=== PATIENT | male | born 1945 | race Caucasian/White ===

== ENCOUNTER 2018-08-13 18:20 | Inpatient (IN) | payer MEDICARE ==
[2018-08-13] MEDS ORDERED: FAMOTIDINE 20 MG/2 ML VIAL IV STA (18:53)
[2018-08-13 19:02] LABS: Basophils # (A) 0.1 k/uL (0-0.2); Basophils % (A) 1 %; Eosinophils # (A) 0.1 k/uL (0-0.7); Eosinophils % (A) 1 %; HCT 46.4 % (39.0-53.0); HGB 14.8 gm/dL (13.0-17.5); Lymphocytes # (A) 0.8 k/uL (1.0-4.8); Lymphocytes % (A) 10 %; MCH 29.1 pg (25.0-35.0); MCHC 31.8 g/dL (31.0-37.0); MCV 91.5 fL (80.0-100.0); Mean Platelet Volume 7.2; Monocytes # (A) 0.4 k/uL (0-1.0); Monocytes % (A) 5 %; Neutrophils # (A) 6.4 k/uL (1.3-7.7); Neutrophils % (A) 82 %; Platelet Count 177 k/uL (150-450); RBC 5.07 m/uL (4.30-5.90); RDW 14.8 % (11.5-15.5); WBC 7.8 k/uL (3.8-10.6)
--- NOTE | 2018-08-13 19:12 | ED ---
General Adult HPI - General Chief complaint: Chest Pain Stated complaint: CHEST PAIN, COLD SWEATS, HEART BURN Time Seen by Provider: 08/13/18 18:28 Source: patient, RN notes reviewed, old records reviewed Mode of arrival: wheelchair Limitations: no limitations - History of Present Illness Initial comments: 73-year-old male presenting for evaluation of chest pain. Patient's pain began approximately one hour prior to arrival. He reports associated diaphoresis. Pain was nonradiating. Patient states this did occur after eating some spicy soup. He reports some belching and nausea. No significant vomiting. Patient states that while at home he took some drinks of soda. This improved his symptoms. He is pain-free at the time my evaluation. He has no known history of CAD. He is a diabetic and former smoker. He has history of COPD. - Related Data Home Medications Medication Instructions Recorded Confirmed Insulin Glargine [Lantus] 50 unit SQ BID 12/16/14 08/13/18 Albuterol Inhaler [Ventolin Hfa 2 puff INHALATION RT-Q6H PRN 08/13/18 08/13/18 Inhaler] Aspirin EC [Ecotrin Low Dose] 81 mg PO HS 08/13/18 08/13/18 Lisinopril-Hctz 20-12.5 mg 1 tab PO DAILY 08/13/18 08/13/18 [Zestoretic 20-12.5] Tamsulosin HCl [Flomax] 0.4 mg PO HS 08/13/18 08/13/18 Allergies Allergy/AdvReac Type Severity Reaction Status Date / Time No Known Allergies Allergy Verified 08/13/18 19:13 Review of Systems ROS Statement: Those systems with pertinent positive or pertinent negative responses have been documented in the HPI. ROS Other: All systems not noted in ROS Statement are negative. Past Medical History Past Medical History: COPD, Diabetes Mellitus, Hypertension History of Any Multi-Drug Resistant Organisms: None Reported Additional Past Surgical History / Comment(s): rt nephrectomy Past Psychological History: No Psychological Hx Reported Smoking Status: Former smoker Past Alcohol Use History: Occasional Past Drug Use History: None Reported General Exam Limitations: no limitations General appearance: alert, in no apparent distress Head exam: Present: atraumatic, normocephalic Eye exam: Present: normal appearance, PERRL ENT exam: Present: normal exam Neck exam: Present: normal inspection. Absent: tenderness, meningismus Respiratory exam: Present: normal lung sounds bilaterally. Absent: respiratory distress Cardiovascular Exam: Present: regular rate. Absent: normal rhythm GI/Abdominal exam: Present: soft. Absent: distended, tenderness, guarding, rebound Extremities exam: Present: normal inspection, normal capillary refill. Absent: pedal edema Back exam: Present: normal inspection, full ROM Neurological exam: Present: alert, oriented X3 Psychiatric exam: Present: normal affect, normal mood Skin exam: Present: warm, dry, intact. Absent: cyanosis, diaphoretic Course Vital Signs 08/13/18 18:25 Temperature 98.2 F Pulse Rate 70 Respiratory 20 Rate Blood Pressure 169/79 O2 Sat by Pulse 98 Oximetry - Reevaluation(s) Reevaluation #1: 08/13/18 20:22 Patient remains chest pain-free while in the emergency department. EKG Findings - EKG Comments: EKG Findings:: EKG: Normal sinus rhythm, left axis deviation, right bundle branch block rate of 70, ME interval 160, QRS duration 144, QTC 410, QTC 442 Medical Decision Making - Medical Decision Making 73-year-old male presenting with central chest pain and diaphoresis. Patient's symptoms are resolved at the time of initial evaluation. Patient has significant risk factors for coronary artery disease including including diabetes and former tobacco use. Laboratory studies reveal normal CBC, creatinine is mildly elevated 0.1, troponin is 0.128. Given the patient's symptoms, this will be treated as non- ST segment elevation CT. Troponin will be trended. Patient is given aspirin and started on heparin. He will be admitted for cardiology evaluation. - Lab Data Result diagrams: 08/13/18 18:51 08/13/18 18:51 Lab Results 08/13/18 08/13/18 08/13/18 Range/Units 18:51 18:51 18:51 WBC 7.8 (3.8-10.6) k/uL RBC 5.07 (4.30-5.90) m/uL Hgb 14.8 (13.0-17.5) gm/dL Hct 46.4 (39.0-53.0) % MCV 91.5 (80.0-100.0) fL MCH 29.1 (25.0-35.0) pg MCHC 31.8 (31.0-37.0) g/dL RDW 14.8 (11.5-15.5) % Plt Count 177 (150-450) k/uL Neutrophils % 82 % Lymphocytes % 10 % Monocytes % 5 % Eosinophils % 1 % Basophils % 1 % Neutrophils # 6.4 (1.3-7.7) k/uL Lymphocytes # 0.8 L (1.0-4.8) k/uL Monocytes # 0.4 (0-1.0) k/uL Eosinophils # 0.1 (0-0.7) k/uL Basophils # 0.1 (0-0.2) k/uL PT (9.0-12.0) sec INR (<1.2) APTT (22.0-30.0) sec Sodium 136 L (137-145) mmol/L Potassium 4.9 (3.5-5.1) mmol/L Chloride 103 (98-107) mmol/L Carbon Dioxide 21 L (22-30) mmol/L Anion Gap 12 mmol/L BUN 31 H (9-20) mg/dL Creatinine 1.44 H (0.66-1.25) mg/dL Est GFR (CKD-EPI)AfAm 55 (>60 ml/min/1.73 sqM) Est GFR (CKD-EPI)NonAf 48 (>60 ml/min/1.73 sqM) Glucose 216 H (74-99) mg/dL Calcium 9.1 (8.4-10.2) mg/dL Magnesium 1.7 (1.6-2.3) mg/dL Total Bilirubin 0.5 (0.2-1.3) mg/dL AST 28 (17-59) U/L ALT 34 (21-72) U/L Alkaline Phosphatase 83 (38-126) U/L Total Creatine Kinase 212 H (55-170) U/L CK-MB (CK-2) 4.9 H (0.0-2.4) ng/mL CK-MB (CK-2) Rel Index 2.3 Troponin I 0.128 H* (0.000-0.034) ng/mL Total Protein 6.9 (6.3-8.2) g/dL Albumin 3.9 (3.5-5.0) g/dL Amylase 62 (30-110) U/L Lipase 44 (23-300) U/L 08/13/18 Range/Units 18:51 WBC (3.8-10.6) k/uL RBC (4.30-5.90) m/uL Hgb (13.0-17.5) gm/dL Hct (39.0-53.0) % MCV (80.0-100.0) fL MCH (25.0-35.0) pg MCHC (31.0-37.0) g/dL RDW (11.5-15.5) % Plt Count (150-450) k/uL Neutrophils % % Lymphocytes % % Monocytes % % Eosinophils % % Basophils % % Neutrophils # (1.3-7.7) k/uL Lymphocytes # (1.0-4.8) k/uL Monocytes # (0-1.0) k/uL Eosinophils # (0-0.7) k/uL Basophils # (0-0.2) k/uL PT 9.7 (9.0-12.0) sec INR 1.0 (<1.2) APTT 22.3 (22.0-30.0) sec Sodium (137-145) mmol/L Potassium (3.5-5.1) mmol/L Chloride (98-107) mmol/L Carbon Dioxide (22-30) mmol/L Anion Gap mmol/L BUN (9-20) mg/dL Creatinine (0.66-1.25) mg/dL Est GFR (CKD-EPI)AfAm (>60 ml/min/1.73 sqM) Est GFR (CKD-EPI)NonAf (>60 ml/min/1.73 sqM) Glucose (74-99) mg/dL Calcium (8.4-10.2) mg/dL Magnesium (1.6-2.3) mg/dL Total Bilirubin (0.2-1.3) mg/dL AST (17-59) U/L ALT (21-72) U/L Alkaline Phosphatase (38-126) U/L Total Creatine Kinase (55-170) U/L CK-MB (CK-2) (0.0-2.4) ng/mL CK-MB (CK-2) Rel Index Troponin I (0.000-0.034) ng/mL Total Protein (6.3-8.2) g/dL Albumin (3.5-5.0) g/dL Amylase (30-110) U/L Lipase (23-300) U/L Disposition Clinical Impression: NSTEMI (non-ST elevated myocardial infarction) Disposition: ADMITTED IP TO THIS HOSP Condition: Stable Is patient prescribed a controlled substance at d/c from ED?: No Referrals: Joy Reagan DO [Primary Care Provider] - 1-2 days Decision to Admit Reason: Admit from EC Decision Date: 08/13/18 Decision Time: 20:25
[2018-08-13 19:13] LABS: Albumin 3.9 g/dL (3.5-5.0); Calcium 9.1 mg/dL (8.4-10.2); Magnesium 1.7 mg/dL (1.6-2.3); Potassium 4.9 mmol/L (3.5-5.1); Total Bilirubin 0.5 mg/dL (0.2-1.3); Total Protein 6.9 g/dL (6.3-8.2)
--- NOTE | 2018-08-13 19:13 | XR ---
EXAMINATION TYPE: XR chest 2V DATE OF EXAM: 08/13/2018 COMPARISON: 03/22/2018 HISTORY: Difficulty breathing TECHNIQUE: Frontal and lateral views of the chest are obtained. FINDINGS: There is no heart failure. There is slight elevated right diaphragm and linear density at the right lung base. The other lung waddell are clear. There is no pleural effusion. There are chest l kaushik. Bony thorax is intact. IMPRESSION: Mild subsegmental atelectasis is at the right lung base is new compared to last exam. No rmal heart.
[2018-08-13 19:17] LABS: Partial Thromboplastin Time 22.3 sec (22.0-30.0); Prothrombin Time 9.7 sec (9.0-12.0)
[2018-08-13 19:29] LABS: Creatine Kinase MB 4.9 ng/mL (0.0-2.4)
[2018-08-13 19:32] LABS: Troponin I 0.128 ng/mL (0.000-0.034)
[2018-08-13] MEDS ORDERED: HEPARIN SODIUM,PORCINE 5,000 UNIT/ML 1 ML VIAL IV PRN (19:36)
[2018-08-13] MEDS ORDERED: HEPARIN SODIUM,PORCINE 5,000 UNIT/ML 1 ML VIAL IV ONE (19:36)
[2018-08-13] MEDS ORDERED: ASPIRIN 325 MG TAB PO STA (19:36)
[2018-08-13] MEDS: HEPARIN SOD,PORK IN 0.45% NACL 25,000 UNIT in 0.45% NACL 1 500ML.BAG IV SCH (20:18)
[2018-08-13] MEDS ORDERED: NITROGLYCERIN SL TABS 0.4 MG TAB SUBLINGUAL PRN (20:25)
[2018-08-13 21:05] LABS: Glucose,Whole Blood 217 mg/dL (75-99)
[2018-08-13] MEDS: INSULIN DETEMIR 100 UNIT/ML 10 ML VIAL SQ SCH (23:22)
[2018-08-14 02:21] LABS: Creatine Kinase MB 36.5 ng/mL (0.0-2.4)
[2018-08-14 02:22] LABS: Troponin I 11.8 ng/mL (0.000-0.034)
[2018-08-14 06:05] LABS: Glucose,Whole Blood 92 mg/dL (75-99)
--- NOTE | 2018-08-14 08:28 | P.CRDCN ---
History of Present Illness Consult date: 08/14/18 Requesting physician: Brandi Jordan Consult reason: non-Q-wave [place] Chief complaint: Chest pain History of present illness: This is a pleasant 73-year-old gentleman with known history of hypertension, diabetes, not on a statin, quit smoking several years ago, COPD, who presents to the hospital with symptoms of severe chest pressure and heaviness with associated diaphoresis. According to the patient, the symptoms started yesterday, prior to that the patient states he's been feeling overall quite well. I pressure on arrival here 168/78 heart rate in the 70s, temperature 98.2 degrees 98% on room air. Blood pressure this morning 122/60 with a heart rate in the 60s, temperature 97.5, 96% on room air. White blood cell count 7.8, hemoglobin 14.8, platelet count 177. Sodium 136, potassium 4.9 , BUN 31, creatinine 1.4. Blood sugar 216. Magnesium 1.7. Troponin 0.12, 11.8. Initial EKG shows a normal sinus rhythm with a right bundle branch block pattern and ST-T wave changes noted in the anterior leads. Subsequent EKG shows sinus bradycardia with left axis deviation and ST-T wave changes noted in the anterior lateral leads. Chest x-ray shows mild subsegmental atelectasis at the right lung base. At the time of my examination this morning patient is currently chest pain-free. Patient is currently on an aspirin, IV heparin, lisinopril hydrochlorothiazide. We will continue the lisinopril, discontinue the hydrochlorothiazide, no beta laurie at this point because of bradycardia, we will start the patient on Lipitor 80. Past Medical History Past Medical History: COPD, Diabetes Mellitus, Hypertension History of Any Multi-Drug Resistant Organisms: None Reported Additional Past Surgical History / Comment(s): rt nephrectomy 1970 Past Anesthesia/Blood Transfusion Reactions: No Reported Reaction Past Psychological History: No Psychological Hx Reported Smoking Status: Former smoker Past Alcohol Use History: Occasional Past Drug Use History: None Reported - Past Family History Father Additional Family Medical History / Comment(s): old age Mother Family Medical History: Diabetes Mellitus Additional Family Medical History / Comment(s): old age Medications and Allergies Home Medications Medication Instructions Recorded Confirmed Type Insulin Glargine [Lantus] 50 unit SQ BID 12/16/14 08/13/18 History Albuterol Inhaler [Ventolin Hfa 2 puff INHALATION RT-Q6H PRN 08/13/18 08/13/18 History Inhaler] Aspirin EC [Ecotrin Low Dose] 81 mg PO HS 08/13/18 08/13/18 History Lisinopril-Hctz 20-12.5 mg 1 tab PO DAILY 08/13/18 08/13/18 History [Zestoretic 20-12.5] Tamsulosin HCl [Flomax] 0.4 mg PO HS 08/13/18 08/13/18 History Allergies Allergy/AdvReac Type Severity Reaction Status Date / Time No Known Allergies Allergy Verified 08/13/18 19:13 Physical Exam Vitals: Vital Signs Temp Pulse Pulse Resp BP BP Pulse Ox 08/14/18 04:00 97.5 F L 62 18 123/60 96 08/14/18 00:00 97.5 F L 61 18 172/73 96 08/13/18 21:35 96.9 F L 64 18 174/88 97 08/13/18 21:00 96.9 F L 64 18 174/88 97 08/13/18 20:46 98.3 F 67 18 159/76 97 08/13/18 20:24 67 18 184/92 97 08/13/18 18:25 98.2 F 70 20 169/79 98 Intake and Output 08/13/18 08/14/18 08/14/18 22:59 06:59 14:59 Intake Total 146.667 Output Total 700 300 Balance -700 -153.333 Intake: Intake, IV Titration 146.667 Amount Heparin Sod,Pork in 0.45% 146.667 NaCl 25,000 unit In 0.45 % NaCl 1 500ml.bag @ 10. 113 UNITS/KG/HR 20 mls/hr IV .Q24H [facility] Rx#: [id number] Output: Urine 700 300 Other: Voiding Method Toilet Toilet Urinal Urinal # Voids 1 Weight 98.883 kg 104 kg PHYSICAL EXAMINATION: GENERAL: 73-year-old gentleman in no acute distress at the time of my examination HEENT: Head is atraumatic, normocephalic. Pupils equal, round. Sclera anicteric. Conjunctiva are clear. Mucous membranes of the mouth are moist. Neck is supple. There is no elevated jugular venous pressure. No carotid bruit is heard. HEART EXAMINATION: Heart S1, S2 normal. No murmur or gallop heard. CHEST EXAMINATION: Lungs are clear to auscultation and precussion. No chest wall tenderness is noted on palpation or with deep breathing. ABDOMEN: Soft, nontender. Bowel sounds are heard. No organomegaly noted. EXTREMITIES: 2+ peripheral pulses with no evidence of peripheral edema and no calf tenderness noted. NEUROLOGIC patient is awake, alert and oriented X3. . Results 08/14/18 08:10 08/13/18 18:51 Cardiac Enzymes 08/13/18 08/13/18 08/14/18 Range/Units 18:51 18:51 01:24 AST 28 (17-59) U/L CK-MB (CK-2) 4.9 H 36.5 H (0.0-2.4) ng/mL Troponin I 0.128 H* 11.800 H* (0.000-0.034) ng/mL Coagulation 08/13/18 08/14/18 Range/Units 18:51 01:24 PT 9.7 (9.0-12.0) sec APTT 22.3 38.1 H (22.0-30.0) sec CBC 08/13/18 Range/Units 18:51 WBC 7.8 (3.8-10.6) k/uL RBC 5.07 (4.30-5.90) m/uL Hgb 14.8 (13.0-17.5) gm/dL Hct 46.4 (39.0-53.0) % Plt Count 177 (150-450) k/uL Comprehensive Metabolic Panel 08/13/18 Range/Units 18:51 Sodium 136 L (137-145) mmol/L Potassium 4.9 (3.5-5.1) mmol/L Chloride 103 (98-107) mmol/L Carbon Dioxide 21 L (22-30) mmol/L BUN 31 H (9-20) mg/dL Creatinine 1.44 H (0.66-1.25) mg/dL Glucose 216 H (74-99) mg/dL Calcium 9.1 (8.4-10.2) mg/dL AST 28 (17-59) U/L ALT 34 (21-72) U/L Alkaline Phosphatase 83 (38-126) U/L Total Protein 6.9 (6.3-8.2) g/dL Albumin 3.9 (3.5-5.0) g/dL Current Medications Generic Name Dose Route Start Last Admin Trade Name Freq PRN Reason Stop Dose Admin Albuterol Sulfate 2.5 mg 08/13/18 20:27 Ventolin Nebulized INHALATION RT-Q6H PRN Shortness Of Breath Aspirin 81 mg 08/14/18 21:00 Aspirin PO HS ALEXEY Lisinopril/HCTZ 1 each 08/14/18 09:00 Zestoretic 20-12.5 PO DAILY ALEXEY Heparin Sodium (Porcine) 0 unit 08/13/18 19:36 Heparin IV PER PROTOCOL PRN Low PTT Protocol Heparin Sodium/Sodium Chloride 500 mls @ 20 mls/hr 08/13/18 19:45 08/14/18 03 :38 25,000 unit/ Sodium Chloride IV 13.1 units/kg/hr .Q24H ALEXE[facility] 25.9 mls/hr Titration Protocol 10.113 UNITS/KG/HR Insulin Detemir 50 unit 08/13/18 21:00 08/13/18 23:22 Levemir SQ 50 unit BID ALEXEY Administration Nitroglycerin 0.4 mg 08/13/18 20:25 Nitrostat SUBLINGUAL Q5M PRN Chest Pain Intake and Output 08/13/18 08/14/18 08/14/18 22:59 06:59 14:59 Intake Total 146.667 Output Total 700 300 Balance -700 -153.333 Intake: Intake, IV Titration 146.667 Amount Heparin Sod,Pork in 0.45% 146.667 NaCl 25,000 unit In 0.45 % NaCl 1 500ml.bag @ 10. 113 UNITS/KG/HR 20 mls/hr IV .Q24H [facility] Rx#: [id number] Output: Urine 700 300 Other: Voiding Method Toilet Toilet Urinal Urinal # Voids 1 Weight 98.883 kg 104 kg 08/13/18 18:51 08/13/18 18:51 EKG Interpretations (text) EKG shows normal sinus rhythm on her branch block pattern and ST-T wave changes noted in the anterior lateral leads. Assessment and Plan Plan: Assessment and plan #1 non-ST elevation myocardial infarction #2 hypertension #3 diabetes #4 history of smoking #5 COPD #6 mild renal insufficiency, s/p right nephrectomy Plan We will obtain a stat echocardiogram with Doppler study, continue aspirin and heparin, start the patient on Lipitor 80 mg daily, we will continue the lisinopril but discontinue the hydrochlorothiazide, we will not start a beta laurie at this time because of the bradycardia. Patient will be hydrated at 100 mL per hour. He's been advised to undergo cardiac catheterization, the risks and benefits were explained in detail and he is willing to proceed. Further recommendations will be based on these findings and patient's clinical course. DNP note has been reviewed, I agree with a documented findings and plan of care. Patient was seen and examined.
[2018-08-14 08:34] LABS: Basophils # (A) 0.1 k/uL (0-0.2); Basophils % (A) 1 %; Eosinophils # (A) 0.1 k/uL (0-0.7); Eosinophils % (A) 2 %; HCT 44.7 % (39.0-53.0); HGB 14.2 gm/dL (13.0-17.5); Lymphocytes # (A) 0.8 k/uL (1.0-4.8); Lymphocytes % (A) 12 %; MCH 28.8 pg (25.0-35.0); MCHC 31.8 g/dL (31.0-37.0); MCV 90.6 fL (80.0-100.0); Mean Platelet Volume 7.2; Monocytes # (A) 0.3 k/uL (0-1.0); Monocytes % (A) 5 %; Neutrophils # (A) 5.3 k/uL (1.3-7.7); Neutrophils % (A) 78 %; Platelet Count 155 k/uL (150-450); RBC 4.93 m/uL (4.30-5.90); RDW 14.8 % (11.5-15.5); WBC 6.7 k/uL (3.8-10.6)
[2018-08-14] MEDS: SODIUM CHLORIDE 0.9% 1,000 ML IV SCH ×3 (08:35→21:13)
[2018-08-14] MEDS: INSULIN DETEMIR 100 UNIT/ML 10 ML VIAL SQ SCH ×2 (08:35→21:13)
[2018-08-14] MEDS: ALBUTEROL NEBULIZED 2.5 MG/3 ML INHALATION PRN ×2 (08:36→16:42)
[2018-08-14 08:44] LABS: Cholesterol 154 mg/dL (<200); HDL Cholesterol 29 mg/dL (40-60); LDL Cholesterol,Calculated 88 mg/dL (0-99); Triglycerides 185 mg/dL (<150)
[2018-08-14] MEDS: LISINOPRIL 20 MG TAB PO SCH (08:56)
[2018-08-14] MEDS ORDERED: ASPIRIN 325 MG TAB PO SCH (09:00)
[2018-08-14] MEDS ORDERED: LISINOPRIL-HCTZ 20-12.5 MG 1 EACH TAB PO SCH (09:00)
[2018-08-14 09:17] LABS: Creatine Kinase MB 30.7 ng/mL (0.0-2.4)
[2018-08-14 09:27] LABS: Troponin I 11.8 ng/mL (0.000-0.034)
[2018-08-14] MEDS ORDERED: IV FLUID CONTINUATION 1,000 ML IV ONE (11:30)
[2018-08-14] MEDS ORDERED: MIDAZOLAM 2 MG/2 ML VIAL IV ONE (11:35)
[2018-08-14] MEDS ORDERED: LIDOCAINE 1% INJ 10MG/ML (20 ML MDV) SQ ONE (11:40)
[2018-08-14] MEDS: VERAPAMIL SYRINGE (5 MG/10 ML) INTRAARTER ONE ×2 (11:43→12:01)
[2018-08-14] MEDS ORDERED: IOPAMIDOL-370 100ML BTL INJ ONE (12:08)
[2018-08-14] MEDS ORDERED: RX INFO: IV CONTRAST WAS GIVEN 1 EACH MISC MISCELLANE PRN (12:30)
[2018-08-14 12:42] LABS: Calcium 9.1 mg/dL (8.4-10.2); Potassium 4.7 mmol/L (3.5-5.1)
[2018-08-14] MEDS ORDERED: HEPARIN SOD,PORK IN 0.45% NACL 25,000 UNIT in 0.45% NACL 1 500ML.BAG IV SCH (12:45)
[2018-08-14] MEDS ORDERED: TIROFIBAN 12.5MG-250ML NS 250 ML IV SCH (12:45)
[2018-08-14] MEDS ORDERED: MD COMMUNICATION TO PHARMACY 1 EACH MISC PO ONE (13:19)
--- NOTE | 2018-08-14 13:24 | CC ---
CARDIAC CATHETERIZATION REPORT DATE OF SERVICE: 08/14/2018 PROCEDURE: Coronary angiography. PERFORMED BY: Dr. Marvin Harper. Moderate conscious sedation time was 35 minutes. Patient was administered Versed and Benadryl and oxygen saturation, hemodynamics and EKG were monitored closely. CLINICAL INFORMATION: Mr. Cristo Perez is a 73-year-old gentleman with history of obesity, probable sleep apnea, type 2 diabetes with CKD and history of chest discomfort. He came into the hospital with chest pain, had an unremarkable troponin to begin with, went up to 11.8 and then he had Q-waves in anterior leads. He was pain free when I saw him this morning. He was on heparin, advised coronary angiography and after explanation of risks, benefits, and options. Patient understood all details and wished to proceed with the procedure. He insisted on having a right radial cath. PROCEDURE NOTE: Under local anesthesia and strict aseptic precautions, a 6-Montserratian introducer was placed in the right radial artery. I used a standard right Jasmin catheter for selective coronary angiography of the right coronary artery. I used a JL3.5 guide catheter for selective coronary angiography of the left system. Following this, I had difficulty because of extreme tortuosity trying to get LV pressures and therefore I did not cross the aortic valve. The sheath was taken out and TR band applied as per protocol with saturation in the fingers of the right hand of 92%. He was sent to the room in a stable condition. Findings were discussed with the patient and son. I am recommending aortocoronary bypass surgery. Films were reviewed with Dr. Brock and Dr. Campos. CARDIAC CATHETERIZATION FINDINGS: CORONARY ANGIOGRAPHY: RIGHT CORONARY ARTERY: This vessel is totally occluded in the proximal portion after acute marginal branch and a conus branch. The conus branch provides collaterals to the distal RCA which is opacified on the same antegrade injection and appears to be probably a graftable vessel. RCA therefore is totally occluded and the distal RCA fills from collaterals coming from the conus branch. LEFT MAIN CORONARY ARTERY: This is a long vessel with a distal lesion of 70% before it bifurcates into LAD and circumflex. There is some calcification in the left main coronary artery. LEFT ANTERIOR DESCENDING CORONARY ARTERY: Good caliber vessel extends along the anterior wall. It gives off a very high first diagonal branch. The first diagonal has diffuse disease in the ostium and midportion small in caliber of maybe 1 to 1.5 mm. At the origin of this first diagonal branch, there is a area of about 60% narrowing in the LAD. After the first diagonal and before the origin of the second diagonal, there is a hazy area in the LAD with 70% stenosis and the hazy area is probably thrombus. Second diagonal is free of significant disease and then LAD runs all the way to the apex supplying a fair amount of myocardium. LAD therefore has a proximal 60% lesion and mid 70% lesion between the 2 diagonal branches and then the caliber improves. Second diagonal is free of significant disease. First diagonal is small and non graftable. LEFT POSTERIOR CIRCUMFLEX CORONARY ARTERY: This is technically probably a nondominant vessel gives off a high first obtuse marginal that has 80% to 90% stenosis proximally and the caliber improves. After the first obtuse marginal, the circumflex also has about 60% narrowing and runs along the lateral aspect and gives some distal branches. The circumflex distally divides into 2 branches that supply a limited amount of myocardium. The circumflex marginal as well as the main circumflex are both graftable. COLLATERAL CIRCULATION: There is a limited amount of collaterals from the left system opacifying the distal branch of the RCA, but most of the collaterals are coming from the conus branch. LEFT VENTRICULOGRAM: Left ventriculogram was not performed. FINAL IMPRESSION: This patient has a right dominant system. Total occlusion of right coronary artery that fills with collaterals from the conus branch of right coronary artery. The left main is 70% or 75%. The left anterior descending coronary artery has a mid lesion of 70% with thrombus. Obtuse marginal has 80% to 85% stenosis. Filling pressures were not checked and left ventriculogram was not performed. RECOMMENDATION: I am recommending that we will hydrate the patient for the next 24 to 48 hours. We will treat him with Aggrastat for 12 to 18 hours and heparin for 48 hours. He should have aortocoronary bypass surgery with graft to the LAD, 2 circumflex branches and distal RCA. Findings were reviewed with the patient and son and I also reviewed the images with Dr. Brock and Dr. Campos. The patient will be seen by surgeons today and probable surgery either Friday or Friday. Discussed my thoughts in detail with the patient and family. MMODL / IJN: [id number] /
[2018-08-14 13:56] LABS: Basophils % (A) 1 %; Eosinophils # (A) 0.1 k/uL (0-0.7); Eosinophils % (A) 2 %; HCT 46.3 % (39.0-53.0); HGB 14.8 gm/dL (13.0-17.5); Lymphocytes # (A) 0.7 k/uL (1.0-4.8); Lymphocytes % (A) 10 %; MCH 28.8 pg (25.0-35.0); MCV 89.9 fL (80.0-100.0); Mean Platelet Volume 7.6; Monocytes # (A) 0.3 k/uL (0-1.0); Monocytes % (A) 4 %; Neutrophils # (A) 5.4 k/uL (1.3-7.7); Neutrophils % (A) 82 %; Platelet Count 167 k/uL (150-450); RBC 5.14 m/uL (4.30-5.90); RDW 14.7 % (11.5-15.5); WBC 6.6 k/uL (3.8-10.6)
--- NOTE | 2018-08-14 14:00 | P.HPIM ---
History of Present Illness H&P Date: 08/14/18 Chief Complaint: Chest pain This is a 73-year-old male, patient of [facility]. He has a known past medical history of hypertension, diabetes mellitus, COPD, right nephrectomy 1969 and former smoker. Patient presents to the emergency room with complaints of chest pain with pressure and heaviness and diaphoresis. Symptoms had started yesterday. Patient was diagnosed with a non-ST elevated SC. Initial troponin 0.128 then 11.6 and 11.8. Patient was started on IV heparin cardiology was consulted. And patient underwent heart catheterization today. The heart catheterization shows total occlusion of the right coronary artery. Left main is 70-75% stenosed. The left anterior descending coronary artery has a mid lesion of 70% with thrombus. Obtuse marginal had 80-85% stenosis. Cardiology is recommending open-heart surgery. That her surgery has been consulted. They have already evaluated patient and surgery we'll possibly be on Friday. Pulmonary service has also been consulted. Patient is receiving IV fluids. He was slightly dehydrated on admission creatinine was 1.44. Unclear baseline creatinine. Creatinine in March 2018 was 1.3. Patient currently is chest pain-free. He reports that symptoms started after eating spicy soup and when he came back home he belched a large amount of gas and is relieved the pressure. He has been chest pain-free. Cardiology has placed him on IV heparin and Aggrastat. Review of Systems Please refer to HPI otherwise unremarkable Past Medical History Past Medical History: COPD, Diabetes Mellitus, Hypertension History of Any Multi-Drug Resistant Organisms: None Reported Additional Past Surgical History / Comment(s): rt nephrectomy 1969 Past Anesthesia/Blood Transfusion Reactions: No Reported Reaction Past Psychological History: No Psychological Hx Reported Smoking Status: Former smoker Past Alcohol Use History: Occasional Past Drug Use History: None Reported - Past Family History Father Additional Family Medical History / Comment(s): old age Mother Family Medical History: Diabetes Mellitus Additional Family Medical History / Comment(s): old age Medications and Allergies Home Medications Medication Instructions Recorded Confirmed Type Insulin Glargine [Lantus] 50 unit SQ BID 12/16/14 08/13/18 History Albuterol Inhaler [Ventolin Hfa 2 puff INHALATION RT-Q6H PRN 08/13/18 08/13/18 History Inhaler] Aspirin EC [Ecotrin Low Dose] 81 mg PO HS 08/13/18 08/13/18 History Lisinopril-Hctz 20-12.5 mg 1 tab PO DAILY 08/13/18 08/13/18 History [Zestoretic 20-12.5] Tamsulosin HCl [Flomax] 0.4 mg PO HS 08/13/18 08/13/18 History Allergies Allergy/AdvReac Type Severity Reaction Status Date / Time No Known Allergies Allergy Verified 08/13/18 19:13 Physical Exam Vitals: Vital Signs Temp Pulse Pulse Pulse Resp BP BP 08/14/18 13:00 64 20 150/74 08/14/18 12:45 97.6 F 64 20 158/77 08/14/18 12:30 98.2 F 62 20 146/81 08/14/18 08:45 72 08/14/18 08:36 72 08/14/18 08:00 97.6 F 61 20 130/68 08/14/18 04:00 97.5 F L 62 18 123/60 08/14/18 00:00 97.5 F L 61 18 172/73 08/13/18 21:35 96.9 F L 64 18 174/88 08/13/18 21:00 96.9 F L 64 18 174/88 08/13/18 20:46 98.3 F 67 18 159/76 08/13/18 20:24 67 18 184/92 08/13/18 18:25 98.2 F 70 20 169/79 Pulse Ox 08/14/18 13:00 93 L 08/14/18 12:45 94 L 08/14/18 12:30 96 08/14/18 08:45 08/14/18 08:36 08/14/18 08:00 93 L 08/14/18 04:00 96 08/14/18 00:00 96 08/13/18 21:35 97 08/13/18 21:00 97 08/13/18 20:46 97 08/13/18 20:24 97 08/13/18 18:25 98 Intake and Output 08/13/18 08/14/18 08/14/18 22:59 06:59 14:59 Intake Total 146.667 100 Output Total 700 300 Balance -700 -153.333 100 Intake: IV 100 Intake, IV Titration 146.667 Amount Heparin Sod,Pork in 0.45% 146.667 NaCl 25,000 unit In 0.45 % NaCl 1 500ml.bag @ 10. 113 UNITS/KG/HR 20 mls/hr IV .Q24H [facility] Rx#: [id number] Output: Urine 700 300 Other: Voiding Method Toilet Toilet Urinal Urinal # Voids 1 Weight 98.883 kg 104 kg Head normocephalic Neck supple Lungs clear to auscultation bilaterally no wheezing or crackles Heart regular rate and rhythm S1-S2, no rub or gallop Abdomen is soft nontender nondistended positive bowel sounds no hepatosplenomegaly Extremities no edema Neuro alert and orientated to 3 Results CBC & Chem 7: 08/14/18 08:10 08/14/18 08:10 Labs: Abnormal Lab Results - Last 24 Hours (Table) 08/13/18 08/13/18 08/13/18 Range/Units 18:51 18:51 18:51 Lymphocytes # 0.8 L (1.0-4.8) k/uL APTT (22.0-30.0) sec Sodium 136 L (137-145) mmol/L Chloride (98-107) mmol/L Carbon Dioxide 21 L (22-30) mmol/L BUN 31 H (9-20) mg/dL Creatinine 1.44 H (0.66-1.25) mg/dL Glucose 216 H (74-99) mg/dL POC Glucose (mg/dL) (75-99) mg/dL Total Creatine Kinase 212 H (55-170) U/L CK-MB (CK-2) 4.9 H (0.0-2.4) ng/mL Troponin I 0.128 H* (0.000-0.034) ng/mL Triglycerides (<150) mg/dL HDL Cholesterol (40-60) mg/dL 08/13/18 08/14/18 08/14/18 Range/Units 21:04 01:24 01:24 Lymphocytes # (1.0-4.8) k/uL APTT 38.1 H (22.0-30.0) sec Sodium (137-145) mmol/L Chloride (98-107) mmol/L Carbon Dioxide (22-30) mmol/L BUN (9-20) mg/dL Creatinine (0.66-1.25) mg/dL Glucose (74-99) mg/dL POC Glucose (mg/dL) 217 H (75-99) mg/dL Total Creatine Kinase 504 H (55-170) U/L CK-MB (CK-2) 36.5 H (0.0-2.4) ng/mL Troponin I 11.800 H* (0.000-0.034) ng/mL Triglycerides (<150) mg/dL HDL Cholesterol (40-60) mg/dL 08/14/18 08/14/18 08/14/18 Range/Units 08:10 08:10 08:10 Lymphocytes # 0.8 L (1.0-4.8) k/uL APTT (22.0-30.0) sec Sodium (137-145) mmol/L Chloride (98-107) mmol/L Carbon Dioxide (22-30) mmol/L BUN (9-20) mg/dL Creatinine (0.66-1.25) mg/dL Glucose (74-99) mg/dL POC Glucose (mg/dL) (75-99) mg/dL Total Creatine Kinase 465 H (55-170) U/L CK-MB (CK-2) 30.7 H (0.0-2.4) ng/mL Troponin I 11.800 H* (0.000-0.034) ng/mL Triglycerides 185 H (<150) mg/dL HDL Cholesterol 29 L (40-60) mg/dL 08/14/18 08/14/18 Range/Units 08:10 08:10 Lymphocytes # (1.0-4.8) k/uL APTT 38.6 H (22.0-30.0) sec Sodium (137-145) mmol/L Chloride 108 H (98-107) mmol/L Carbon Dioxide 19 L (22-30) mmol/L BUN 28 H (9-20) mg/dL Creatinine 1.27 H (0.66-1.25) mg/dL Glucose 110 H (74-99) mg/dL POC Glucose (mg/dL) (75-99) mg/dL Total Creatine Kinase (55-170) U/L CK-MB (CK-2) (0.0-2.4) ng/mL Troponin I (0.000-0.034) ng/mL Triglycerides (<150) mg/dL HDL Cholesterol (40-60) mg/dL Thrombosis Risk Factor Assmnt - Choose All That Apply Each Risk Factor Represents 2 Points: Age 61-74 years Thrombosis Risk Factor Assessment Total Risk Factor Score: 2 Thrombosis Risk Factor Assessment Level: Low Risk Assessment and Plan Assessment: 1. Acute Non-ST elevated myocardial infarction: Heart catheterization showing multivessel coronary artery disease with thrombus in the LAD. Patient has been seen by vascular surgery and planning for open heart surgery on Friday. Continue IV heparin and Aggrastat per cardiology. Continue with IV fluids. Pulmonary service also consulted for preop clearance. 2. Acute kidney injury: Unclear patient has chronic kidney disease. Creatinine in March 2018 was 1.3. Continue with IV fluid hydration. Creatinine is now down to 1.27 3. Essential hypertension 4. Diabetes mellitus insulin-dependent. Continue Levemir. Add sliding scale coverage and check A1c 5. History of COPD: No evidence of exacerbation. continue albuterol nebulizer as needed 6. BPH continue Flomax 7. Atelectasis noted on chest x-ray order incentive spirometer 8. Obesity BMI 39.4 kg GI prophylaxis Pepcid and DVT prophylaxis IV heparin Time with Patient: Greater than 30 (Greater than 60% of the total time spent in counseling and coordination of care.I performed an examination of the patient and discussed their management with the physician Medical Information Specialist. I have reviewed the Physician Medical Information Specialist's notes and agree with the documented findings and plan of care)
[2018-08-14 14:03] LABS: Calcium 9.3 mg/dL (8.4-10.2); Magnesium 1.9 mg/dL (1.6-2.3); Potassium 4.7 mmol/L (3.5-5.1); Prothrombin Time 9.6 sec (9.0-12.0); Total Bilirubin 0.6 mg/dL (0.2-1.3)
[2018-08-14 15:01] LABS: Appearance,Urine Clear (Clear); Bilirubin,Urine Negative (Negative); Blood,Urine Negative (Negative); Color,Urine Light Yellow; Glucose,Urine (UA) Negative (Negative); Ketones,Urine Negative (Negative); Leukocyte Esterase,Urine Negative (Negative); Nitrite,Urine Negative (Negative); Protein,Urine Negative (Negative); Specific Gravity,Urine 1.015 (1.001-1.035); Urobilinogen,Urine <2.0 mg/dL (<2.0)
--- NOTE | 2018-08-14 15:01 | P.GSCN ---
History of Present Illness Consult date: 08/14/18 Reason for Consult: symptomatic coronary artery disease, nstemi, surgical recommendations Requesting physician: Homer Harper History of present illness: This is a 73-year-old and active gentleman who follows with Dr. Joy Reagan on an outpatient basis. He has a previous medical history of hypertension, insulin-dependent diabetes mellitus, COPD, previous tobacco dependence as he quit smoking in 1979 but prior to that smoked 3 packs a day since he was in his teenage years, prostate cancer with radiation more than 20 years ago, right nephrectomy in 1969 for unknown reason. He presented to [facility] emergency room with complaints of chest pain associated with shortness of breath and diaphoresis. He denied any symptoms of syncope, dizziness, nausea, fever. He does state that he had eaten some spicy soup prior to this episode of chest pain, and about the time he got to the hospital he did belch and his chest pain was gone. He was hypertensive however, and initial EKGs had evidence of ST changes in the anterior leads. Troponin was slightly elevated and this patient was ruled in for a non-STEMI. Repeat troponin was 11.8. The patient was admitted for cardiology workup and started on IV heparin. He was taken to the cardiac catheterization lab this morning which demonstrated a long lesion in the distal left main of 70% before it bifurcates into the LAD and circumflex along with some calcification, 60% narrowing in the LAD at the origin of the first diagonal branch, 70% stenosis in the LAD at the origin of the second diagonal branch with probable thrombus, first obtuse marginal with 80 -90% stenosis proximally, 60% narrowing in the circumflex after the first obtuse marginal, proximal RCA with total occlusion, there is some collateralization from the left system to the right, left ventriculogram was not performed. Due to the above findings Dr. Campos from cardiothoracic surgery was consulted for recommendations regarding surgical revascularization. Review of Systems Review of systems was completed and was negative except as noted. - Cardiovascular Reports chest pain, Reports high blood pressure, Reports shortness of breath Past Medical History Past Medical History: Coronary Artery Disease (CAD), Cancer, COPD, Diabetes Mellitus, Hyperlipidemia, Hypertension Additional Past Medical History / Comment(s): prostate cancer with radiation > 20 years ago History of Any Multi-Drug Resistant Organisms: None Reported Additional Past Surgical History / Comment(s): rt nephrectomy 1969 Past Anesthesia/Blood Transfusion Reactions: No Reported Reaction Past Psychological History: No Psychological Hx Reported Smoking Status: Former smoker Past Alcohol Use History: None Reported Additional Past Alcohol Use History / Comment(s): quit smoking 1979 (prior to that 3 packs/day since his teens), quit drinking 1980 Past Drug Use History: None Reported - Past Family History Father Additional Family Medical History / Comment(s): old age Mother Family Medical History: Coronary Artery Disease (CAD), Diabetes Mellitus Additional Family Medical History / Comment(s): CABG Medications and Allergies Home Medications Medication Instructions Recorded Confirmed Type Insulin Glargine [Lantus] 50 unit SQ BID 12/16/14 08/13/18 History Albuterol Inhaler [Ventolin Hfa 2 puff INHALATION RT-Q6H PRN 08/13/18 08/13/18 History Inhaler] Aspirin EC [Ecotrin Low Dose] 81 mg PO HS 08/13/18 08/13/18 History Lisinopril-Hctz 20-12.5 mg 1 tab PO DAILY 08/13/18 08/13/18 History [Zestoretic 20-12.5] Tamsulosin HCl [Flomax] 0.4 mg PO HS 08/13/18 08/13/18 History Allergies Allergy/AdvReac Type Severity Reaction Status Date / Time No Known Allergies Allergy Verified 08/13/18 19:13 Surgical - Exam Vital Signs Temp Pulse Resp BP Pulse Ox 98.2 F 70 20 169/79 98 08/13/18 18:25 08/13/18 18:25 08/13/18 18:25 08/13/18 18:25 08/13/18 18:25 - General well developed, well nourished, no distress, no pain, chronically ill, obese - Eyes PERRL, normal ocular movement - ENT no hearing loss, dentures - Neck no masses, no bruits, trachea midline - Respiratory Lungs sounds diminished bilaterally. Respirations even, nonlabored. Currently on room air with oxygen saturation 95%. No chest wall deformities. - Cardiovascular S1, S2 present. Regular rate and rhythm, sinus rhythm on telemetry. Palpable peripheral pulses bilaterally. No edema present. No calf pain or tenderness noted. No varicosities noted. Left radial Kameron's test positive. - Abdomen Abdomen: soft, non tender, bowel sounds - Genitourinary Deferred - Rectum Deferred - Integumentary Skin is warm and dry with evidence of good perfusion. no rash, no growths, no abnormal pigmentation - Neurologic normal coordination, normal sensation - Psychiatric Speech is difficult to understand at times because patient has no teeth. oriented to time, oriented to person, oriented to place, memory intact Results - Labs 08/14/18 13:29 08/14/18 13:29 Abnormal Lab Results - Last 24 Hours (Table) 08/13/18 08/13/18 08/13/18 Range/Units 18:51 18:51 18:51 Lymphocytes # 0.8 L (1.0-4.8) k/uL APTT (22.0-30.0) sec Sodium 136 L (137-145) mmol/L Chloride (98-107) mmol/L Carbon Dioxide 21 L (22-30) mmol/L BUN 31 H (9-20) mg/dL Creatinine 1.44 H (0.66-1.25) mg/dL Glucose 216 H (74-99) mg/dL POC Glucose (mg/dL) (75-99) mg/dL AST (17-59) U/L Total Creatine Kinase 212 H (55-170) U/L CK-MB (CK-2) 4.9 H (0.0-2.4) ng/mL Troponin I 0.128 H* (0.000-0.034) ng/mL Triglycerides (<150) mg/dL HDL Cholesterol (40-60) mg/dL 08/13/18 08/14/18 08/14/18 Range/Units 21:04 01:24 01:24 Lymphocytes # (1.0-4.8) k/uL APTT 38.1 H (22.0-30.0) sec Sodium (137-145) mmol/L Chloride (98-107) mmol/L Carbon Dioxide (22-30) mmol/L BUN (9-20) mg/dL Creatinine (0.66-1.25) mg/dL Glucose (74-99) mg/dL POC Glucose (mg/dL) 217 H (75-99) mg/dL AST (17-59) U/L Total Creatine Kinase 504 H (55-170) U/L CK-MB (CK-2) 36.5 H (0.0-2.4) ng/mL Troponin I 11.800 H* (0.000-0.034) ng/mL Triglycerides (<150) mg/dL HDL Cholesterol (40-60) mg/dL 08/14/18 08/14/18 08/14/18 Range/Units 08:10 08:10 08:10 Lymphocytes # 0.8 L (1.0-4.8) k/uL APTT (22.0-30.0) sec Sodium (137-145) mmol/L Chloride (98-107) mmol/L Carbon Dioxide (22-30) mmol/L BUN (9-20) mg/dL Creatinine (0.66-1.25) mg/dL Glucose (74-99) mg/dL POC Glucose (mg/dL) (75-99) mg/dL AST (17-59) U/L Total Creatine Kinase 465 H (55-170) U/L CK-MB (CK-2) 30.7 H (0.0-2.4) ng/mL Troponin I 11.800 H* (0.000-0.034) ng/mL Triglycerides 185 H (<150) mg/dL HDL Cholesterol 29 L (40-60) mg/dL 08/14/18 08/14/18 08/14/18 Range/Units 08:10 08:10 13:29 Lymphocytes # 0.7 L (1.0-4.8) k/uL APTT 38.6 H (22.0-30.0) sec Sodium (137-145) mmol/L Chloride 108 H (98-107) mmol/L Carbon Dioxide 19 L (22-30) mmol/L BUN 28 H (9-20) mg/dL Creatinine 1.27 H (0.66-1.25) mg/dL Glucose 110 H (74-99) mg/dL POC Glucose (mg/dL) (75-99) mg/dL AST (17-59) U/L Total Creatine Kinase (55-170) U/L CK-MB (CK-2) (0.0-2.4) ng/mL Troponin I (0.000-0.034) ng/mL Triglycerides (<150) mg/dL HDL Cholesterol (40-60) mg/dL 08/14/18 Range/Units 13:29 Lymphocytes # (1.0-4.8) k/uL APTT (22.0-30.0) sec Sodium (137-145) mmol/L Chloride (98-107) mmol/L Carbon Dioxide (22-30) mmol/L BUN 25 H (9-20) mg/dL Creatinine 1.26 H (0.66-1.25) mg/dL Glucose 112 H (74-99) mg/dL POC Glucose (mg/dL) (75-99) mg/dL AST 60 H (17-59) U/L Total Creatine Kinase (55-170) U/L CK-MB (CK-2) (0.0-2.4) ng/mL Troponin I (0.000-0.034) ng/mL Triglycerides 258 H (<150) mg/dL HDL Cholesterol 31 L (40-60) mg/dL Diabetes panel 08/13/18 08/14/18 08/14/18 Range/Units 18:51 08:10 08:10 Sodium 136 L 139 (137-145) mmol/L Potassium 4.9 4.7 (3.5-5.1) mmol/L Chloride 103 108 H (98-107) mmol/L Carbon Dioxide 21 L 19 L (22-30) mmol/L BUN 31 H 28 H (9-20) mg/dL Creatinine 1.44 H 1.27 H (0.66-1.25) mg/dL Glucose 216 H 110 H (74-99) mg/dL Calcium 9.1 9.1 (8.4-10.2) mg/dL AST 28 (17-59) U/L ALT 34 (21-72) U/L Alkaline Phosphatase 83 (38-126) U/L Total Protein 6.9 (6.3-8.2) g/dL Albumin 3.9 (3.5-5.0) g/dL Triglycerides 185 H (<150) mg/dL HDL Cholesterol 29 L (40-60) mg/dL 08/14/18 Range/Units 13:29 Sodium 139 (137-145) mmol/L Potassium 4.7 (3.5-5.1) mmol/L Chloride 105 (98-107) mmol/L Carbon Dioxide 24 (22-30) mmol/L BUN 25 H (9-20) mg/dL Creatinine 1.26 H (0.66-1.25) mg/dL Glucose 112 H (74-99) mg/dL Calcium 9.3 (8.4-10.2) mg/dL AST 60 H (17-59) U/L ALT 41 (21-72) U/L Alkaline Phosphatase 67 (38-126) U/L Total Protein 7.0 (6.3-8.2) g/dL Albumin 4.0 (3.5-5.0) g/dL Triglycerides 258 H (<150) mg/dL HDL Cholesterol 31 L (40-60) mg/dL Calcium panel 08/13/18 08/14/18 08/14/18 Range/Units 18:51 08:10 13:29 Calcium 9.1 9.1 9.3 (8.4-10.2) mg/dL Albumin 3.9 4.0 (3.5-5.0) g/dL Pituitary panel 08/13/18 08/14/18 08/14/18 Range/Units 18:51 08:10 13:29 Sodium 136 L 139 139 (137-145) mmol/L Potassium 4.9 4.7 4.7 (3.5-5.1) mmol/L Chloride 103 108 H 105 (98-107) mmol/L Carbon Dioxide 21 L 19 L 24 (22-30) mmol/L BUN 31 H 28 H 25 H (9-20) mg/dL Creatinine 1.44 H 1.27 H 1.26 H (0.66-1.25) mg/dL Glucose 216 H 110 H 112 H (74-99) mg/dL Calcium 9.1 9.1 9.3 (8.4-10.2) mg/dL Adrenal panel 08/13/18 08/14/18 08/14/18 Range/Units 18:51 08:10 13:29 Sodium 136 L 139 139 (137-145) mmol/L Potassium 4.9 4.7 4.7 (3.5-5.1) mmol/L Chloride 103 108 H 105 (98-107) mmol/L Carbon Dioxide 21 L 19 L 24 (22-30) mmol/L BUN 31 H 28 H 25 H (9-20) mg/dL Creatinine 1.44 H 1.27 H 1.26 H (0.66-1.25) mg/dL Glucose 216 H 110 H 112 H (74-99) mg/dL Calcium 9.1 9.1 9.3 (8.4-10.2) mg/dL Total Bilirubin 0.5 0.6 (0.2-1.3) mg/dL AST 28 60 H (17-59) U/L ALT 34 41 (21-72) U/L Alkaline Phosphatase 83 67 (38-126) U/L Total Protein 6.9 7.0 (6.3-8.2) g/dL Albumin 3.9 4.0 (3.5-5.0) g/dL - Imaging Chest x-ray: report reviewed, image reviewed EKG: image reviewed Additional studies: Heart catheterization, echocardiogram films reviewed. Assessment and Plan (1) CAD (coronary artery disease) Current Visit: Yes Status: Chronic Code(s): I25.10 - ATHSCL HEART DISEASE OF [place] CORONARY ARTERY W/O ANG PCTRS SNOMED Code(s): 04238286 (2) Left main coronary artery disease Current Visit: Yes Status: Chronic Code(s): I25.10 - ATHSCL HEART DISEASE OF [place] CORONARY ARTERY W/O ANG PCTRS SNOMED Code(s): 348124188 (3) Hypertension Current Visit: Yes Status: Chronic Code(s): I10 - ESSENTIAL (PRIMARY) HYPERTENSION SNOMED Code(s): 41031178 (4) Hyperlipidemia Current Visit: Yes Status: Chronic Code(s): E78.5 - HYPERLIPIDEMIA, UNSPECIFIED SNOMED Code(s): 90737456 (5) Insulin dependent diabetes mellitus Current Visit: Yes Status: Chronic Code(s): E11.9 - TYPE 2 DIABETES MELLITUS WITHOUT COMPLICATIONS; Z79.4 - DETENTION (CURRENT) USE OF INSULIN SNOMED Code(s): 69875086 (6) Tobacco dependence in remission Current Visit: No Status: Resolved Code(s): F17.201 - NICOTINE DEPENDENCE, UNSPECIFIED, IN REMISSION SNOMED Code(s): 463495251 (7) COPD (chronic obstructive pulmonary disease) Current Visit: Yes Status: Chronic Code(s): J44.9 - CHRONIC OBSTRUCTIVE PULMONARY DISEASE, UNSPECIFIED SNOMED Code(s): 77122606 (8) History of nephrectomy Current Visit: Yes Status: Chronic Code(s): Z90.5 - ACQUIRED ABSENCE OF KIDNEY SNOMED Code(s): 49002145383339 (9) Family history of heart disease Current Visit: Yes Status: Chronic Code(s): Z82.49 - FAMILY HX OF ISCHEM HEART DIS AND OTH DIS OF THE CIRC SYS SNOMED Code(s): 627299165 (10) History of prostate cancer Current Visit: Yes Status: Chronic Code(s): Z85.46 - PERSONAL HISTORY OF MALIGNANT NEOPLASM OF PROSTATE SNOMED Code(s): 495027361 (11) NSTEMI (non-ST elevated myocardial infarction) Current Visit: Yes Status: Acute Code(s): I21.4 - NON-ST ELEVATION (NSTEMI) MYOCARDIAL INFARCTION SNOMED Code(s): 928540113 Plan: The patient was seen and examined at the bedside with Dr. Campos. Chart/ diagnostics were reviewed. Cardiac catheterization films were reviewed between Dr. Campos and Dr. Harper. Preoperative teaching was initiated with the patient and his family. The usual surgical course was outlined for the patient and family, risks and benefits where explained in detail, all questions were answered. Preoperative testing was initiated. We recommend continuing aspirin , statin, beta laurie therapy. If the patient develops chest pain we recommend placement of intra-aortic balloon pump, this was discussed with Dr. Harper. Our recommendation is for coronary artery bypass graft surgery, timing to be determined based on preoperative testing and allowance of maximal medical therapy. This was discussed with Dr. Harper, the patient and his family as well. More recommendations to follow. Thank you Dr. Harper for this consult. We look forward to working with you in the care of your patient. Time with Patient: Greater than 30
[2018-08-14] MEDS: HEPARIN SOD,PORK IN 0.45% NACL 25,000 UNIT in 0.45% NACL 1 500ML.BAG IV SCH (15:09)
--- NOTE | 2018-08-14 15:56 | US ---
EXAMINATION TYPE: US carotid duplex BILAT DATE OF EXAM: 08/14/2018 COMPARISON: NONE CLINICAL HISTORY: PreOp Cardiac Surgery. EXAM MEASUREMENTS: RIGHT: Peak Systolic Velocity (PSV) cm/sec ----- Right CCA: 58.3 ----- Right ICA: 67.2 ----- Right ECA: 97.5 ICA/CCA ratio: 1.2 RIGHT: End Diastole cm/sec ----- Right CCA: 15.6 ----- Right ICA: 16.8 ----- Right ECA: 12.8 LEFT: Peak Systolic Velocity (PSV) cm/sec ----- Left CCA: 78.7 ----- Left ICA: 93.7 ----- Left ECA: 87.4 ICA/CCA ratio: 1.2 LEFT: End Diastole cm/sec ----- Left CCA: 12.1 ----- Left ICA: 24.6 ----- Left ECA: 4.5 VERTEBRALS (direction of flow): Right Vertebral: Antegrade Left Vertebral: Antegrade Rhythm: Normal Difficult and limited study due to patient heavy breathing and frequent swallowing Bilateral intimal thickening, plaque bilateral bulb, no elevated velocities, no significant stenosis. IMPRESSION: Atheromatous plaquing and intimal thickening without significant flow-limiting stenosis. Criteria for Assigning % of Stenosis / Diameter reduction (Estimation based on the indirect measurements of the internal carotid artery velocities (ICA PSV). 1. Normal (no stenosis)=ICA PSV < 125 cm/s: ratio < 2.0: ICA EDV<40 cm/s. 2. Less than 50% stenosis=ICA PSV < 125 cm/s: ratio < 2.0: ICA EDV<40 cm/s. 3. 50 to 69% stenosis=ICA PSV of 125 to 230 cm/s: ration 2.0 ? 4.0: ICA EDV 40-100 cm/s. 4. Greater than 70% stenosis to near occlusion= ICA PSV > 230 cm/s: ratio > 4.0: ICA EDV > 100 cm/s. 5. Near occlusion= ICA PSV velocities may be low or undetectable: variable ratio and ICA EDV. 6. Total occlusion=unable to detect flow.
[2018-08-14 16:30] LABS: Glucose,Whole Blood 120 mg/dL (75-99)
--- NOTE | 2018-08-14 16:39 | P.CNPUL ---
History of Present Illness Consult date: 08/14/18 Requesting physician: Brandi Jordan Reason for consult: chest pain, other Chief complaint: Angina, non-STEMI, multivessel coronary artery disease History of present illness: This is a 73-year-old white male patient of Dr. Joy Reagan, who presented emergency department on 08/13/2018 at 1840 evaluation of chest pain, associated with diaphoresis. The pain was non-radiating, and occurred after eating some spicy soup, patient was belching, and had some nausea. No vomiting. EKG showed some ST and T-wave abnormalities in the inferior, anterior, and lateral leads with T-wave inversion. Troponins were elevated at 0.128, 11.8, 11.8 and 9.270, patient was ruled in for non-ST elevated MA. Patient was placed on IV heparin, aspirin, Coreg, nitroglycerin and he underwent cardiac catheterization this afternoon with Dr. ALISHA Harper which showed a distal lesion of the left main of 70% before bifurcation into LAD and circumflex with calcification, 60% narrowing in the LAD at the origin of the first diagonal branch, 70% stenosis in the LAD at the origin of the second diagonal branch with probable thrombus, first obtuse marginal with 80-90% stenosis proximally, and 60% narrowing in the circumflex after the first obtuse marginal, total occlusion of the proximal RCA with some collateral circulation from the left system to the right. Patient has past medical history of coronary artery disease, COPD, diabetes mellitus type 2, hypertension, previous nicotine dependence, history of right nephrectomy in 1969 and chronic kidney disease. Patient was recommended to undergo coronary revascularization and cardiothoracic surgery has been consulted. We are seeing this patient for pulmonary evaluation. Review of Systems All systems: negative Constitutional: Denies chills, Denies fever Eyes: denies blurred vision, denies pain Ears, nose, mouth and throat: Denies headache, Denies sore throat Cardiovascular: Reports decreased exercise tolerance, Reports high blood pressure, Denies chest pain, Denies shortness of breath Respiratory: Reports congestion, Denies cough Gastrointestinal: Denies abdominal pain, Denies diarrhea, Denies nausea, Denies vomiting Musculoskeletal: Denies myalgias Integumentary: Denies pruritus, Denies rash Neurological: Denies numbness, Denies weakness Psychiatric: Denies anxiety, Denies depression Endocrine: Denies fatigue, Denies weight change Past Medical History Past Medical History: Coronary Artery Disease (CAD), Cancer, COPD, Diabetes Mellitus, Hyperlipidemia, Hypertension, Prostate Disorder Additional Past Medical History / Comment(s): prostate cancer with radiation > 20 years ago History of Any Multi-Drug Resistant Organisms: None Reported Additional Past Surgical History / Comment(s): rt nephrectomy 1969 Past Anesthesia/Blood Transfusion Reactions: No Reported Reaction Past Psychological History: No Psychological Hx Reported Smoking Status: Former smoker Past Alcohol Use History: None Reported Additional Past Alcohol Use History / Comment(s): quit smoking 1979 (prior to that 3 packs/day since his teens), quit drinking 1980 Past Drug Use History: None Reported - Past Family History Father Additional Family Medical History / Comment(s): old age Mother Family Medical History: Coronary Artery Disease (CAD), Diabetes Mellitus Additional Family Medical History / Comment(s): CABG Medications and Allergies Home Medications Medication Instructions Recorded Confirmed Type Insulin Glargine [Lantus] 50 unit SQ BID 12/16/14 08/13/18 History Albuterol Inhaler [Ventolin Hfa 2 puff INHALATION RT-Q6H PRN 08/13/18 08/13/18 History Inhaler] Aspirin EC [Ecotrin Low Dose] 81 mg PO HS 08/13/18 08/13/18 History Lisinopril-Hctz 20-12.5 mg 1 tab PO DAILY 08/13/18 08/13/18 History [Zestoretic 20-12.5] Tamsulosin HCl [Flomax] 0.4 mg PO HS 08/13/18 08/13/18 History Allergies Allergy/AdvReac Type Severity Reaction Status Date / Time No Known Allergies Allergy Verified 08/13/18 19:13 Physical Exam Vitals: Vital Signs Temp Pulse Pulse Pulse Resp BP BP 08/14/18 14:15 98.2 F 66 20 158/77 08/14/18 13:45 98.3 F 74 18 133/92 08/14/18 13:00 64 20 150/74 08/14/18 12:45 97.6 F 64 20 158/77 08/14/18 12:30 98.2 F 62 20 146/81 08/14/18 08:45 72 08/14/18 08:36 72 08/14/18 08:00 97.6 F 61 20 130/68 08/14/18 04:00 97.5 F L 62 18 123/60 08/14/18 00:00 97.5 F L 61 18 172/73 08/13/18 21:35 96.9 F L 64 18 174/88 08/13/18 21:00 96.9 F L 64 18 174/88 08/13/18 20:46 98.3 F 67 18 159/76 08/13/18 20:24 67 18 184/92 08/13/18 18:25 98.2 F 70 20 169/79 Pulse Ox 08/14/18 14:15 95 08/14/18 13:45 95 08/14/18 13:00 93 L 08/14/18 12:45 94 L 08/14/18 12:30 96 08/14/18 08:45 08/14/18 08:36 08/14/18 08:00 93 L 08/14/18 04:00 96 08/14/18 00:00 96 08/13/18 21:35 97 08/13/18 21:00 97 08/13/18 20:46 97 08/13/18 20:24 97 08/13/18 18:25 98 Intake and Output 08/14/18 08/14/18 08/14/18 06:59 14:59 22:59 Intake Total 146.667 100 Output Total 300 300 Balance -153.333 -200 Intake: IV 100 Intake, IV Titration 146.667 Amount Heparin Sod,Pork in 0.45% 146.667 NaCl 25,000 unit In 0.45 % NaCl 1 500ml.bag @ 10. 113 UNITS/KG/HR 20 mls/hr IV .Q24H [facility] Rx#: [id number] Output: Urine 300 300 Other: Voiding Method Toilet Urinal # Voids 1 2 Weight 104 kg GENERAL EXAM: Alert, pleasant, obese 73-year-old white male comfortable in no apparent distress. HEAD: Normocephalic/atraumatic. EYES: Normal reaction of pupils, equal size. Conjunctiva pink, sclera white. NOSE: Clear with pink turbinates. MOUTH: Missing teeth THROAT: No erythema or exudates. NECK: No masses, no JVD, no thyroid enlargement, no adenopathy. CHEST: No chest wall deformity. Symmetrical expansion. LUNGS: Equal air entry with bibasilar crackles, but no wheeze, rhonchi or dullness. CVS: Regular rate and rhythm, normal S1 and S2, no gallops, no murmurs, no rubs ABDOMEN: Soft, nontender. No hepatosplenomegaly, normal bowel sounds, no guarding or rigidity. EXTREMITIES: No clubbing, no edema, no cyanosis, 2+ pulses and upper and lower extremities. Right radial TR band is in place MUSCULOSKELETAL: Muscle strength and tone normal. SPINE: No scoliosis or deformity SKIN: No rashes CENTRAL NERVOUS SYSTEM: Alert and oriented -3. No focal deficits, tone is normal in all 4 extremities. PSYCHIATRIC: Alert and oriented -3. Appropriate affect. Intact judgment and insight. Results - Laboratory Findings CBC and BMP: 08/14/18 13:29 08/14/18 13:29 PT/INR, D-dimer PT 9.6 sec (9.0-12.0) 08/14/18 13:29 INR 1.0 (<1.2) 08/14/18 13:29 Abnormal lab findings: Abnormal Labs 08/13/18 08/13/18 08/13/18 18:51 18:51 18:51 Lymphocytes # 0.8 L APTT Sodium 136 L Chloride Carbon Dioxide 21 L BUN 31 H Creatinine 1.44 H Glucose 216 H POC Glucose (mg/dL) AST Total Creatine Kinase 212 H CK-MB (CK-2) 4.9 H Troponin I 0.128 H* Triglycerides HDL Cholesterol 08/13/18 08/14/18 08/14/18 21:04 01:24 01:24 Lymphocytes # APTT 38.1 H Sodium Chloride Carbon Dioxide BUN Creatinine Glucose POC Glucose (mg/dL) 217 H AST Total Creatine Kinase 504 H CK-MB (CK-2) 36.5 H Troponin I 11.800 H* Triglycerides HDL Cholesterol 08/14/18 08/14/18 08/14/18 08:10 08:10 08:10 Lymphocytes # 0.8 L APTT Sodium Chloride Carbon Dioxide BUN Creatinine Glucose POC Glucose (mg/dL) AST Total Creatine Kinase 465 H CK-MB (CK-2) 30.7 H Troponin I 11.800 H* Triglycerides 185 H HDL Cholesterol 29 L 08/14/18 08/14/18 08/14/18 08:10 08:10 13:29 Lymphocytes # 0.7 L APTT 38.6 H Sodium Chloride 108 H Carbon Dioxide 19 L BUN 28 H Creatinine 1.27 H Glucose 110 H POC Glucose (mg/dL) AST Total Creatine Kinase CK-MB (CK-2) Troponin I Triglycerides HDL Cholesterol 08/14/18 08/14/18 13:29 13:29 Lymphocytes # APTT Sodium Chloride Carbon Dioxide BUN 25 H Creatinine 1.26 H Glucose 112 H POC Glucose (mg/dL) AST 60 H Total Creatine Kinase CK-MB (CK-2) Troponin I 9.270 H* Triglycerides 258 H HDL Cholesterol 31 L - Diagnostic Findings Chest x-ray: report reviewed, image reviewed Additional studies: EKG reviewed Assessment and Plan Plan: Assessment: #1. Acute non-ST elevated myocardial infarction #2. Multivessel coronary artery disease, involving 70% left main stenosis, 70% LAD stenosis with thrombus, age 85% OM stenosis, patient has been scheduled for surgical revascularization surgery on Friday on 08/17/2018 #3. Diabetes mellitus type 2, insulin-dependent #4. COPD, not on home oxygen, currently stable #5. Obesity #6. History of right nephrectomy, and history of CKD #7. History of nicotine dependence, in remission. Patient quit smoking 45 years ago, but prior to that smoked up to 3 packs a day for 30 years #8. Hypertension #9. History of BPH, on Flomax Plan: We'll obtain bedside spirometry to evaluate patient's lung function. Chest x- ray has been reviewed and shows some atelectasis at the right base. Patient has a history of COPD, his only inhaler is a Ventolin on as-needed basis, not oxygen dependent at his baseline. No evidence of acute exacerbation of COPD. Continue with albuterol nebulized treatments. His surgery has been scheduled for Friday on 08/17/2018. We'll review the PFT results once they're completed. Otherwise patient has no significant contraindication for surgery from pulmonary perspective. I performed a history & physical examination of the patient and discussed their management with my nurse practitioner, Randi Root. I reviewed the nurse practitioner's note and agree with the documented findings and plan of care. Lung sounds are positive for bibasilar crackles. The findings and the impression was discussed with the patient. I attest to the documentation by the nurse practitioner. Time with Patient: Greater than 30
[2018-08-14] MEDS: INSULIN ASPART 100 UNIT/ML 1 ML 10 ML VIAL SQ SCH ×2 (17:38→21:13)
[2018-08-14] MEDS: CARVEDILOL 3.125 MG TAB PO SCH (17:41)
[2018-08-14 19:13] LABS: Hepatitis A Antibody IgM Non-Reactive (Non-Reactive); Hepatitis B Core IgM Non-Reactive (Non-Reactive)
[2018-08-14 20:06] LABS: Hemoglobin A1C 7.1 % (4.0-6.0)
[2018-08-14 20:54] LABS: Glucose,Whole Blood 158 mg/dL (75-99)
[2018-08-14] MEDS: ASPIRIN 81 MG PO SCH (21:12)
[2018-08-14] MEDS: ATORVASTATIN 80 MG TAB PO SCH (21:13)
[2018-08-14] MEDS: TAMSULOSIN 0.4 MG CAP.ER.24H PO SCH (21:14)
[2018-08-14] MEDS: MUPIROCIN 2% OINT 22 GM TUBE NASAL SCH (21:14)
[2018-08-15] MEDS: SODIUM CHLORIDE 0.9% 1,000 ML IV SCH ×3 (00:38→06:05)
[2018-08-15 02:39] LABS: Basophils % (A) 1 %; Eosinophils # (A) 0.1 k/uL (0-0.7); Eosinophils % (A) 2 %; HCT 41.4 % (39.0-53.0); HGB 12.9 gm/dL (13.0-17.5); Lymphocytes # (A) 0.8 k/uL (1.0-4.8); Lymphocytes % (A) 13 %; MCH 28.6 pg (25.0-35.0); MCHC 31.1 g/dL (31.0-37.0); MCV 91.8 fL (80.0-100.0); Mean Platelet Volume 7.1; Monocytes # (A) 0.4 k/uL (0-1.0); Monocytes % (A) 6 %; Neutrophils # (A) 4.9 k/uL (1.3-7.7); Neutrophils % (A) 78 %; Platelet Count 156 k/uL (150-450); RBC 4.51 m/uL (4.30-5.90); RDW 14.8 % (11.5-15.5); WBC 6.3 k/uL (3.8-10.6)
[2018-08-15 02:48] LABS: Albumin 3.5 g/dL (3.5-5.0); Calcium 9.2 mg/dL (8.4-10.2); Potassium 4.6 mmol/L (3.5-5.1); Total Bilirubin 0.5 mg/dL (0.2-1.3); Total Protein 6.1 g/dL (6.3-8.2)
[2018-08-15 02:50] LABS: Partial Thromboplastin Time 22.2 sec (22.0-30.0); Prothrombin Time 9.7 sec (9.0-12.0)
[2018-08-15 05:53] LABS: Glucose,Whole Blood 145 mg/dL (75-99)
[2018-08-15] MEDS: HEPARIN SOD,PORK IN 0.45% NACL 25,000 UNIT in 0.45% NACL 1 500ML.BAG IV SCH ×2 (06:03→12:29)
[2018-08-15] MEDS: CARVEDILOL 3.125 MG TAB PO SCH (06:17)
[2018-08-15] MEDS: INSULIN ASPART 100 UNIT/ML 1 ML 10 ML VIAL SQ SCH ×4 (06:17→22:56)
[2018-08-15] MEDS: INSULIN DETEMIR 100 UNIT/ML 10 ML VIAL SQ SCH ×2 (08:22→20:53)
[2018-08-15] MEDS: MUPIROCIN 2% OINT 22 GM TUBE NASAL SCH ×2 (08:24→20:53)
[2018-08-15] MEDS: LISINOPRIL 20 MG TAB PO SCH (08:24)
[2018-08-15] MEDS: ALBUTEROL NEBULIZED 2.5 MG/3 ML INHALATION PRN ×2 (08:44→20:58)
--- NOTE | 2018-08-15 09:54 | P.PN ---
Subjective Progress Note Date: 08/15/18 Principal diagnosis: Non-STEMI, symptomatic multivessel coronary artery disease, hypertension, insulin-dependent diabetes mellitus, COPD with a FEV1 of 87% of predicted, history of nicotine dependence quit smoking in 1979, history of prostate cancer with radiation more than 20 years ago, history of right nephrectomy in 1969 and hyperlipidemia. Patient is sitting up to his bedside age. He is in no acute distress. He denies any further complaints of chest pain or shortness of breath. He reports that since being admitted to the hospital he has not no further complaints of pain. Heparin drip infusing per protocol. He is achieving 2000 mL on his intensive spirometry. Oxygen saturation are 95% on room air. He remains afebrile. Laboratory results showing WBCs 6.3, hemoglobin 12.9, BUN 25, creatinine 1.18. His admission creatinine was 1.44. Objective - Vital Signs Vital signs: Vital Signs Temp 98.1 F 08/15/18 08:00 Pulse 66 08/15/18 09:00 Resp 18 08/15/18 08:00 BP 144/70 08/15/18 08:00 Pulse Ox 95 08/15/18 08:00 Intake & Output 08/14/18 08/15/18 08/15/18 18:59 06:59 18:59 Intake Total 336 240 Output Total 300 2450 Balance 36 -2450 240 Weight 103 kg Intake: IV 100 Oral 236 240 Output: Urine 300 2450 Other: Voiding Method Urinal # Voids 2 2 # Bowel Movements 1 - Constitutional General appearance: Present: cooperative, no acute distress, obese - Respiratory Details: Lungs sounds essentially clear throughout, diminished to his bilateral bases. Respirations are symmetrical and nonlabored. Oxygen saturation are 95% on room air. He is achieving 2000 mm on his incentive spirometry. Preoperative FEV1 completed with a predicted value of 87%. - Cardiovascular Details: Regular rhythm and rate. S1 and S2 present, negative for S3, gallop or murmur. No edema present. Sequential compression devices in place to his bilateral lower extremities. Remote telemetry showing normal sinus rhythm with right bundle branch block heart rate 77. Heparin drip remains infusing per protocol. - Gastrointestinal Gastrointestinal Comment(s): Abdomen soft, nontender and nondistended. Active bowel sounds all 4 abdominal quadrants. Tolerating oral intake. Passing flatus. - Genitourinary Genitourinary Comment(s): Voiding clear yellow urine. - Integumentary Integumentary Comment(s): Skin is warm and dry. No clubbing or cyanosis present. No rash or abnormal pigmentation present. - Neurologic Neurologic Comment(s): No focal deficits. Neurologic: Present: CNII-XII intact - Musculoskeletal Musculoskeletal: Present: gait normal, strength equal bilaterally - Psychiatric Psychiatric: Present: A&O x's 3, appropriate affect, intact judgment & insight - Allied health notes Allied health notes reviewed: nursing - Labs CBC & Chem 7: 08/15/18 02:26 08/15/18 02:26 Labs: Abnormal Lab Results - Last 24 Hours (Table) 08/14/18 08/14/18 08/14/18 Range/Units 08:10 13:29 13:29 Hgb (13.0-17.5) gm/dL Lymphocytes # 0.7 L (1.0-4.8) k/uL Chloride 108 H (98-107) mmol/L Carbon Dioxide 19 L (22-30) mmol/L BUN 28 H (9-20) mg/dL Creatinine 1.27 H (0.66-1.25) mg/dL Glucose 110 H (74-99) mg/dL POC Glucose (mg/dL) (75-99) mg/dL Hemoglobin A1c 7.1 H (4.0-6.0) % AST (17-59) U/L Troponin I (0.000-0.034) ng/mL Total Protein (6.3-8.2) g/dL Triglycerides (<150) mg/dL HDL Cholesterol (40-60) mg/dL 08/14/18 08/14/18 08/14/18 Range/Units 13:29 13:29 16:28 Hgb (13.0-17.5) gm/dL Lymphocytes # (1.0-4.8) k/uL Chloride (98-107) mmol/L Carbon Dioxide (22-30) mmol/L BUN 25 H (9-20) mg/dL Creatinine 1.26 H (0.66-1.25) mg/dL Glucose 112 H (74-99) mg/dL POC Glucose (mg/dL) 120 H (75-99) mg/dL Hemoglobin A1c (4.0-6.0) % AST 60 H (17-59) U/L Troponin I 9.270 H* (0.000-0.034) ng/mL Total Protein (6.3-8.2) g/dL Triglycerides 258 H (<150) mg/dL HDL Cholesterol 31 L (40-60) mg/dL 08/14/18 08/15/18 08/15/18 Range/Units 20:52 02:26 02:26 Hgb 12.9 L (13.0-17.5) gm/dL Lymphocytes # 0.8 L (1.0-4.8) k/uL Chloride (98-107) mmol/L Carbon Dioxide (22-30) mmol/L BUN 25 H (9-20) mg/dL Creatinine (0.66-1.25) mg/dL Glucose 124 H (74-99) mg/dL POC Glucose (mg/dL) 158 H (75-99) mg/dL Hemoglobin A1c (4.0-6.0) % AST (17-59) U/L Troponin I (0.000-0.034) ng/mL Total Protein 6.1 L (6.3-8.2) g/dL Triglycerides (<150) mg/dL HDL Cholesterol (40-60) mg/dL 08/15/18 Range/Units 05:50 Hgb (13.0-17.5) gm/dL Lymphocytes # (1.0-4.8) k/uL Chloride (98-107) mmol/L Carbon Dioxide (22-30) mmol/L BUN (9-20) mg/dL Creatinine (0.66-1.25) mg/dL Glucose (74-99) mg/dL POC Glucose (mg/dL) 145 H (75-99) mg/dL Hemoglobin A1c (4.0-6.0) % AST (17-59) U/L Troponin I (0.000-0.034) ng/mL Total Protein (6.3-8.2) g/dL Triglycerides (<150) mg/dL HDL Cholesterol (40-60) mg/dL Microbiology - Last 24 Hours (Table) 08/14/18 Unknown Nasal Screen MRSA/MSSA - Preliminary Nasal Swab 08/14/18 Unknown Urine Culture - Preliminary Urine,Clean Catch Assessment and Plan (1) NSTEMI (non-ST elevated myocardial infarction) Current Visit: Yes Status: Acute Code(s): I21.4 - NON-ST ELEVATION (NSTEMI) MYOCARDIAL INFARCTION SNOMED Code(s): 703197300 (2) CAD (coronary artery disease) Current Visit: Yes Status: Chronic Code(s): I25.10 - ATHSCL HEART DISEASE OF [place] CORONARY ARTERY [facility] [place] PCT[facility] SNOMED Code(s): 69450824 (3) COPD (chronic obstructive pulmonary disease) Current Visit: Yes Status: Chronic Code(s): J44.9 - CHRONIC OBSTRUCTIVE PULMONARY DISEASE, UNSPECIFIED SNOMED Code(s): 60002986 (4) History of nephrectomy Current Visit: Yes Status: Chronic Code(s): Z90.5 - ACQUIRED ABSENCE OF KIDNEY SNOMED Code(s): 18291490925133 (5) History of prostate cancer Current Visit: Yes Status: Chronic Code(s): Z85.46 - PERSONAL HISTORY OF MALIGNANT NEOPLASM OF PROSTATE SNOMED Code(s): 358992061 (6) Hyperlipidemia Current Visit: Yes Status: Chronic Code(s): E78.5 - HYPERLIPIDEMIA, UNSPECIFIED SNOMED Code(s): 59945515 (7) Hypertension Current Visit: Yes Status: Chronic Code(s): I10 - ESSENTIAL (PRIMARY) HYPERTENSION SNOMED Code(s): 03508872 (8) Insulin dependent diabetes mellitus Current Visit: Yes Status: Chronic Code(s): E11.9 - TYPE 2 DIABETES MELLITUS WITHOUT COMPLICATIONS; Z79.4 - PROGRAM MANAGER RN (CURRENT) USE OF INSULIN SNOMED Code(s): 98198393 (9) Left main coronary artery disease Current Visit: Yes Status: Chronic Code(s): I25.10 - ATHSCL HEART DISEASE OF [place] CORONARY ARTERY W/O [facility] SNOMED Code(s): 960924238 (10) Tobacco dependence in remission Current Visit: No Status: Resolved Code(s): F17.201 - NICOTINE DEPENDENCE, UNSPECIFIED, IN REMISSION SNOMED Code(s): 274528359 Plan: 1. Continue aspirin, Lipitor, beta laurie, ANDREAS inhibitor and heparin drip per protocol. 2. Continue preoperative teaching. Questions answered to the best of my ability. 3. Continue to encourage use of his incentive spirometry every hour while awake. 4. Pulmonary management per Dr. Eller's recommendations. 5. Preoperative testing in progress. 6. Continue to optimize maximal medical therapy, myocardial revascularization surgical date pending. If patient develops further chest pain recommendations for placement of intra-aortic balloon pump. 7. Medical management per primary care service. 8. Further recommendations to follow based on patient's clinical course. Time with Patient: Greater than 30
--- NOTE | 2018-08-15 10:53 | ECHOF ---
Referral Reason:assess lvf MEASUREMENTS -------- HEIGHT: 162.6 cm WEIGHT: 103.9 kg BP: RVIDd: 3.2 cm (< 3.3) IVSd: 1.3 cm (0.6 - 1.1) LVIDd: 5.6 cm (3.9 - 5.3) LVPWd: 1.0 cm (0.6 - 1.1) IVSs: 1.6 cm LVIDs: 3.1 cm LVPWs: 1.5 cm LAESV Index (A-L): 22.34 ml/m Ao Diam: 3.4 cm (2.0 - 3.7) LA Diam: 3.1 cm (2.7 - 3.8) MV EXCURSION: 12.842 mm (> 18.000) MV EF SLOPE: 58 mm/s (70 - 150) EPSS: 0.2 cm MV E [place]: 0.77 m/s MV DecT: 363 ms MV A [place]: 1.16 m/s MV E/A Ratio: 0.66 RAP: 5.00 mmHg RVSP: 13.69 mmHg FINDINGS -------- The left ventricular size is normal. There is mild concentric left ventricular hypertrophy. There is moderate global hypokinesis of LV . Overall left ventricular systolic function is severely impa ired with, an EF between 20 - 25 %. Anterseptal Hypokinesis Inferiorlateral Hypokinesis Septal Hypokinesis [place] Hypokinesis. The right ventricle is normal in size. The left atrial size is normal. The right atrial size is normal. 5.0mg OF [place] UTLIZED: 2 OR MORE WALL SEGMENTS NOT VISUALIZED. There is mild aortic valve sclerosis. There is no evidence of aortic regurgitation. Mild mitral annular calcification present. Mild mitral regurgitation is present. Mild tricuspid regurgitation present. There is no evidence of pulmonary hypertension. The right v entricular systolic pressure, as measured by Doppler, is 13.69mmHg. The pulmonic valve was not well visualized. The aortic root size is normal. There is no pericardial effusion. CONCLUSIONS -------- 1. The left ventricular size is normal. 2. There is moderate global hypokinesis of LV . 3. Overall left ventricular systolic function is severely impaired with, an EF between 20 - 25 %. 4. Anterseptal Hypokinesis 5. Inferiorlateral Hypokinesis 6. Septal Hypokinesis 7. [place] Hypokinesis. 8. The right ventricle is normal in size. 9. The left atrial size is normal. 10. The right atrial size is normal. 11. 5.0mg OF [place] UTLIZED: 2 OR MORE WALL SEGMENTS NOT VISUALIZED. 12. There is mild aortic valve sclerosis. 13. Mild mitral annular calcification present. 14. Mild mitral regurgitation is present. 15. Mild tricuspid regurgitation present. 16. There is no evidence of pulmonary hypertension. 17. The right ventricular systolic pressure, as measured by Doppler, is 13.69mmHg. 18. The pulmonic valve was not well visualized. 19. The aortic root size is normal. 20. There is no pericardial effusion. HUNTING SALES ASSOCIATE: Eliane Elizabeth RDCS
[2018-08-15] MEDS ORDERED: ACETAMINOPHEN TAB 325 MG TAB PO PRN (11:39)
[2018-08-15 11:48] LABS: Glucose,Whole Blood 148 mg/dL (75-99)
--- NOTE | 2018-08-15 11:52 | P.PN ---
Subjective Progress Note Date: 08/15/18 This is a 73-year-old male, patient of [facility]. He has a known past medical history of hypertension, diabetes mellitus, COPD, right nephrectomy 1970 and former smoker. Patient presents to the emergency room with complaints of chest pain with pressure and heaviness and diaphoresis. Symptoms had started yesterday. Patient was diagnosed with a non-ST elevated [place]. Initial troponin 0.128 then 11.6 and 11.8. Patient was started on IV heparin cardiology was consulted. And patient underwent heart catheterization today. The heart catheterization shows total occlusion of the right coronary artery. Left main is 70-75% stenosed. The left anterior descending coronary artery has a mid lesion of 70% with thrombus. Obtuse marginal had 80-85% stenosis. Cardiology is recommending open-heart surgery. That her surgery has been consulted. They have already evaluated patient and surgery we'll possibly be on Friday. Pulmonary service has also been consulted. Patient is receiving IV fluids. He was slightly dehydrated on admission creatinine was 1.44. Unclear baseline creatinine. Creatinine in March 2018 was 1.3. Patient currently is chest pain-free. He reports that symptoms started after eating spicy soup and when he came back home he belched a large amount of gas and is relieved the pressure. He has been chest pain-free. Cardiology has placed him on IV heparin and Aggrastat. On 08/15/2018 patient was seen and examined he is alert and oriented 3 in no apparent distress he is sitting at the edge of the bed and he denies any chest pain there is no shortness of breath at rest he has occasional cough no palpitation no nausea or vomiting no abdominal pain no diarrhea no constipation no burning with urination no frequency or urgency and no hematuria. Objective - Vital Signs Vital signs: Vital Signs Temp 98.3 F 08/15/18 11:32 Pulse 61 08/15/18 11:32 Resp 18 08/15/18 11:32 BP 184/81 08/15/18 11:32 Pulse Ox 93 L 08/15/18 11:32 Intake & Output 08/14/18 08/15/18 08/15/18 18:59 06:59 18:59 Intake Total 336 240 Output Total 300 2450 700 Balance 36 2450 -460 Weight 103 kg Intake: IV 100 Oral 236 240 Output: Urine 300 2450 700 Other: Voiding Method Urinal # Voids 2 2 # Bowel Movements 1 - Exam Head normocephalic and atraumatic Neck supple no JVD no goiter Lungs clear to auscultation bilaterally no wheezing or crackles Heart regular rate and rhythm S1-S2, no rub or gallop Abdomen is soft nontender nondistended positive bowel sounds no hepatosplenomegaly Extremities no edema no cyanosis or clubbing Neuro alert and orientated to 3 - Labs CBC & Chem 7: 08/15/18 02:26 08/15/18 02:26 Labs: Abnormal Lab Results - Last 24 Hours (Table) 08/14/18 08/14/18 08/14/18 Range/Units 08:10 13:29 13:29 Hgb (13.0-17.5) gm/dL Lymphocytes # 0.7 L (1.0-4.8) k/uL Chloride 108 H (98-107) mmol/L Carbon Dioxide 19 L (22-30) mmol/L BUN 28 H (9-20) mg/dL Creatinine 1.27 H (0.66-1.25) mg/dL Glucose 110 H (74-99) mg/dL POC Glucose (mg/dL) (75-99) mg/dL Hemoglobin A1c 7.1 H (4.0-6.0) % AST (17-59) U/L Troponin I (0.000-0.034) ng/mL Total Protein (6.3-8.2) g/dL Triglycerides (<150) mg/dL HDL Cholesterol (40-60) mg/dL 08/14/18 08/14/18 08/14/18 Range/Units 13:29 13:29 16:28 Hgb (13.0-17.5) gm/dL Lymphocytes # (1.0-4.8) k/uL Chloride (98-107) mmol/L Carbon Dioxide (22-30) mmol/L BUN 25 H (9-20) mg/dL Creatinine 1.26 H (0.66-1.25) mg/dL Glucose 112 H (74-99) mg/dL POC Glucose (mg/dL) 120 H (75-99) mg/dL Hemoglobin A1c (4.0-6.0) % AST 60 H (17-59) U/L Troponin I 9.270 H* (0.000-0.034) ng/mL Total Protein (6.3-8.2) g/dL Triglycerides 258 H (<150) mg/dL HDL Cholesterol 31 L (40-60) mg/dL 08/14/18 08/15/18 08/15/18 Range/Units 20:52 02:26 02:26 Hgb 12.9 L (13.0-17.5) gm/dL Lymphocytes # 0.8 L (1.0-4.8) k/uL Chloride (98-107) mmol/L Carbon Dioxide (22-30) mmol/L BUN 25 H (9-20) mg/dL Creatinine (0.66-1.25) mg/dL Glucose 124 H (74-99) mg/dL POC Glucose (mg/dL) 158 H (75-99) mg/dL Hemoglobin A1c (4.0-6.0) % AST (17-59) U/L Troponin I (0.000-0.034) ng/mL Total Protein 6.1 L (6.3-8.2) g/dL Triglycerides (<150) mg/dL HDL Cholesterol (40-60) mg/dL 08/15/18 08/15/18 Range/Units 05:50 11:44 Hgb (13.0-17.5) gm/dL Lymphocytes # (1.0-4.8) k/uL Chloride (98-107) mmol/L Carbon Dioxide (22-30) mmol/L BUN (9-20) mg/dL Creatinine (0.66-1.25) mg/dL Glucose (74-99) mg/dL POC Glucose (mg/dL) 145 H 148 H (75-99) mg/dL Hemoglobin A1c (4.0-6.0) % AST (17-59) U/L Troponin I (0.000-0.034) ng/mL Total Protein (6.3-8.2) g/dL Triglycerides (<150) mg/dL HDL Cholesterol (40-60) mg/dL Microbiology - Last 24 Hours (Table) 08/14/18 Unknown Nasal Screen MRSA/MSSA - Preliminary Nasal Swab 08/14/18 Unknown Urine Culture - Preliminary Urine,Clean Catch Assessment and Plan Plan: 1. Acute Non-ST elevated myocardial infarction: Heart catheterization showing multivessel coronary artery disease with thrombus in the LAD. Patient has been seen by vascular surgery and planning for open heart surgery on Friday. Continue IV heparin and Aggrastat per cardiology. Continue with IV fluids. Pulmonary service also consulted for preop clearance. 2. Acute kidney injury: Unclear patient has chronic kidney disease. Creatinine in March 2018 was 1.3. Continue with IV fluid hydration. Creatinine is now down to 1.27 3. Essential hypertension 4. Diabetes mellitus insulin-dependent. Continue Levemir. Add sliding scale coverage and check A1c 5. History of COPD: No evidence of exacerbation. continue albuterol nebulizer as needed 6. BPH continue Flomax 7. Atelectasis noted on chest x-ray order incentive spirometer 8. Obesity BMI 39.4 kg
--- NOTE | 2018-08-15 11:52 | P.PN ---
Subjective Progress Note Date: 08/15/18 This is a 73-year-old white male patient of Dr. Joy Reagan, who presented emergency department on 08/13/2018 at 1840 evaluation of chest pain, associated with diaphoresis. The pain was non-radiating, and occurred after eating some spicy soup, patient was belching, and had some nausea. No vomiting. EKG showed some ST and T-wave abnormalities in the inferior, anterior, and lateral leads with T-wave inversion. Troponins were elevated at 0.128, 11.8, 11.8 and 9.270, patient was ruled in for non-ST elevated [place]. Patient was placed on IV heparin, aspirin, Coreg, nitroglycerin and he underwent cardiac catheterization this afternoon with Dr. ALISHA Harper which showed a distal lesion of the left main of 70% before bifurcation into LAD and circumflex with calcification, 60% narrowing in the LAD at the origin of the first diagonal branch, 70% stenosis in the LAD at the origin of the second diagonal branch with probable thrombus, first obtuse marginal with 80-90% stenosis proximally, and 60% narrowing in the circumflex after the first obtuse marginal, total occlusion of the proximal RCA with some collateral circulation from the left system to the right. Patient has past medical history of coronary artery disease, COPD, diabetes mellitus type 2, hypertension, previous nicotine dependence, history of right nephrectomy in 1969 and chronic kidney disease. Patient was recommended to undergo coronary revascularization and cardiothoracic surgery has been consulted. We are seeing this patient for pulmonary evaluation. On 08/15/2018, the patient has no specific complaints. He is not having any chest pain. Resting comfortably in bed. Bedside spirometry was noted and there is no significant obstructive airway limitation. Chest x-ray was reviewed and showed some elevation of the right hemidiaphragm. Otherwise there is some subsegmental atelectatic changes in the lung bases. He is an ex- smoker. He is an obese male patient with a BMI of 39.0. No previous history of DVT or pulmonary embolism. No home O2. He is an ex-smoker. Overall performance status is good. Objective - Vital Signs Vital signs: Vital Signs Temp 98.3 F 08/15/18 11:32 Pulse 61 08/15/18 11:32 Resp 18 08/15/18 11:32 BP 184/81 09/15/18 11:32 Pulse Ox 93 L 08/15/18 11:32 Intake & Output 08/14/18 08/15/18 08/15/18 18:59 06:59 18:59 Intake Total 336 240 Output Total 300 2450 700 Balance 36 -2450 -460 Weight 103 kg Intake: IV 100 Oral 236 240 Output: Urine 300 2450 700 Other: Voiding Method Urinal # Voids 2 2 # Bowel Movements 1 - Exam GENERAL EXAM: Alert, pleasant, obese 73-year-old white male comfortable in no apparent distress. HEAD: Normocephalic/atraumatic. EYES: Normal reaction of pupils, equal size. Conjunctiva pink, sclera white. NOSE: Clear with pink turbinates. MOUTH: Missing teeth THROAT: No erythema or exudates. NECK: No masses, no JVD, no thyroid enlargement, no adenopathy. CHEST: No chest wall deformity. Symmetrical expansion. LUNGS: Equal air entry with bibasilar crackles, but no wheeze, rhonchi or dullness. CVS: Regular rate and rhythm, normal S1 and S2, no gallops, no murmurs, no rubs ABDOMEN: Soft, nontender. No hepatosplenomegaly, normal bowel sounds, no guarding or rigidity. EXTREMITIES: No clubbing, no edema, no cyanosis, 2+ pulses and upper and lower extremities. Right radial TR band is in place MUSCULOSKELETAL: Muscle strength and tone normal. SPINE: No scoliosis or deformity SKIN: No rashes CENTRAL NERVOUS SYSTEM: Alert and oriented -3. No focal deficits, tone is normal in all 4 extremities. PSYCHIATRIC: Alert and oriented -3. Appropriate affect. Intact judgment and insight. - Labs CBC & Chem 7: 08/15/18 02:26 08/15/18 02:26 Labs: Abnormal Lab Results - Last 24 Hours (Table) 08/14/18 08/14/18 08/14/18 Range/Units 08:10 13:29 13:29 Hgb (13.0-17.5) gm/dL Lymphocytes # 0.7 L (1.0-4.8) k/uL Chloride 108 H (98-107) mmol/L Carbon Dioxide 19 L (22-30) mmol/L BUN 28 H (9-20) mg/dL Creatinine 1.27 H (0.66-1.25) mg/dL Glucose 110 H (74-99) mg/dL POC Glucose (mg/dL) (75-99) mg/dL Hemoglobin A1c 7.1 H (4.0-6.0) % AST (17-59) U/L Troponin I (0.000-0.034) ng/mL Total Protein (6.3-8.2) g/dL Triglycerides (<150) mg/dL HDL Cholesterol (40-60) mg/dL 08/14/18 08/14/18 08/14/18 Range/Units 13:29 13:29 16:28 Hgb (13.0-17.5) gm/dL Lymphocytes # (1.0-4.8) k/uL Chloride (98-107) mmol/L Carbon Dioxide (22-30) mmol/L BUN 25 H (9-20) mg/dL Creatinine 1.26 H (0.66-1.25) mg/dL Glucose 112 H (74-99) mg/dL POC Glucose (mg/dL) 120 H (75-99) mg/dL Hemoglobin A1c (4.0-6.0) % AST 60 H (17-59) U/L Troponin I 9.270 H* (0.000-0.034) ng/mL Total Protein (6.3-8.2) g/dL Triglycerides 258 H (<150) mg/dL HDL Cholesterol 31 L (40-60) mg/dL 08/14/18 08/15/18 08/15/18 Range/Units 20:52 02:26 02:26 Hgb 12.9 L (13.0-17.5) gm/dL Lymphocytes # 0.8 L (1.0-4.8) k/uL Chloride (98-107) mmol/L Carbon Dioxide (22-30) mmol/L BUN 25 H (9-20) mg/dL Creatinine (0.66-1.25) mg/dL Glucose 124 H (74-99) mg/dL POC Glucose (mg/dL) 158 H (75-99) mg/dL Hemoglobin A1c (4.0-6.0) % AST (17-59) U/L Troponin I (0.000-0.034) ng/mL Total Protein 6.1 L (6.3-8.2) g/dL Triglycerides (<150) mg/dL HDL Cholesterol (40-60) mg/dL 08/15/18 08/15/18 Range/Units 05:50 11:44 Hgb (13.0-17.5) gm/dL Lymphocytes # (1.0-4.8) k/uL Chloride (98-107) mmol/L Carbon Dioxide (22-30) mmol/L BUN (9-20) mg/dL Creatinine (0.66-1.25) mg/dL Glucose (74-99) mg/dL POC Glucose (mg/dL) 145 H 148 H (75-99) mg/dL Hemoglobin A1c (4.0-6.0) % AST (17-59) U/L Troponin I (0.000-0.034) ng/mL Total Protein (6.3-8.2) g/dL Triglycerides (<150) mg/dL HDL Cholesterol (40-60) mg/dL Microbiology - Last 24 Hours (Table) 08/14/18 Unknown Nasal Screen MRSA/MSSA - Preliminary Nasal Swab 08/14/18 Unknown Urine Culture - Preliminary Urine,Clean Catch Assessment and Plan Plan: #1. Acute non-ST elevated myocardial infarction, post cardiac catheterization the patient is being considered for cardiac revascularization surgery. #2. Multivessel coronary artery disease, involving 70% left main stenosis, 70% LAD stenosis with thrombus, age 85% OM stenosis, patient has been scheduled for surgical revascularization surgery on Friday on 08/17/2018 #3. Diabetes mellitus type 2, insulin-dependent #4. COPD, not on home oxygen, currently stable #5. Obesity #6. History of right nephrectomy, and history of CKD #7. History of nicotine dependence, in remission. Patient quit smoking 45 years ago, but prior to that smoked up to 3 packs a day for 30 years #8. Hypertension #9. History of BPH, on Flomax Plan: Continue using incentive spirometer. Chest x-ray was noted. Spirometry was noted. We'll continue to follow.
--- NOTE | 2018-08-15 12:04 | P.PN ---
Subjective Patient is sitting comfortably in bed mites H No chest discomfort no shortness of breath states that his night was quite comfortable Afebrile 98.3F, blood pressure 144/70 mmHg and 184/81 mmHg pulse rate in the 60s Heart sounds S1 and S2 are soft normal S1 normal S2 Breath sounds are clear no rhonchi no crackles Abdomen soft nontender Extended is warm Impression Severe coronary artery disease awaiting coronary artery bypass grafting Suggest Continue IV heparin, discontinue IV fluids Increase carvedilol to 6.25 g twice daily Objective - Vital Signs Vital signs: Vital Signs Temp 98.3 F 08/15/18 11:32 Pulse 61 08/15/18 11:32 Resp 18 08/15/18 11:32 BP 184/81 08/15/18 11:32 Pulse Ox 93 L 08/15/18 11:32 Intake & Output 08/14/18 08/15/18 08/15/18 18:59 06:59 18:59 Intake Total 336 240 Output Total 300 2450 700 Balance 36 -2450 -460 Weight 103 kg Intake: IV 100 Oral 236 240 Output: Urine 300 2450 700 Other: Voiding Method Urinal # Voids 2 2 # Bowel Movements 1 - Labs CBC & Chem 7: 08/15/18 02:26 08/15/18 02:26 Labs: Abnormal Lab Results - Last 24 Hours (Table) 08/14/18 08/14/18 08/14/18 Range/Units 08:10 13:29 13:29 Hgb (13.0-17.5) gm/dL Lymphocytes # 0.7 L (1.0-4.8) k/uL Chloride 108 H (98-107) mmol/L Carbon Dioxide 19 L (22-30) mmol/L BUN 28 H (9-20) mg/dL Creatinine 1.27 H (0.66-1.25) mg/dL Glucose 110 H (74-99) mg/dL POC Glucose (mg/dL) (75-99) mg/dL Hemoglobin A1c 7.1 H (4.0-6.0) % AST (17-59) U/L Troponin I (0.000-0.034) ng/mL Total Protein (6.3-8.2) g/dL Triglycerides (<150) mg/dL HDL Cholesterol (40-60) mg/dL 08/14/18 08/14/1818 Range/Units 13:29 13:29 16:28 Hgb (13.0-17.5) gm/dL Lymphocytes # (1.0-4.8) k/uL Chloride (98-107) mmol/L Carbon Dioxide (22-30) mmol/L BUN 25 H (9-20) mg/dL Creatinine 1.26 H (0.66-1.25) mg/dL Glucose 112 H (74-99) mg/dL POC Glucose (mg/dL) 120 H (75-99) mg/dL Hemoglobin A1c (4.0-6.0) % AST 60 H (17-59) U/L Troponin I 9.270 H* (0.000-0.034) ng/mL Total Protein (6.3-8.2) g/dL Triglycerides 258 H (<150) mg/dL HDL Cholesterol 31 L (40-60) mg/dL 08/14/18 08/15/18 08/15/18 Range/Units 20:52 02:26 02:26 Hgb 12.9 L (13.0-17.5) gm/dL Lymphocytes # 0.8 L (1.0-4.8) k/uL Chloride (98-107) mmol/L Carbon Dioxide (22-30) mmol/L BUN 25 H (9-20) mg/dL Creatinine (0.66-1.25) mg/dL Glucose 124 H (74-99) mg/dL POC Glucose (mg/dL) 158 H (75-99) mg/dL Hemoglobin A1c (4.0-6.0) % AST (17-59) U/L Troponin I (0.000-0.034) ng/mL Total Protein 6.1 L (6.3-8.2) g/dL Triglycerides (<150) mg/dL HDL Cholesterol (40-60) mg/dL 08/15/18 08/15/18 Range/Units 05:50 11:44 Hgb (13.0-17.5) gm/dL Lymphocytes # (1.0-4.8) k/uL Chloride (98-107) mmol/L Carbon Dioxide (22-30) mmol/L BUN (9-20) mg/dL Creatinine (0.66-1.25) mg/dL Glucose (74-99) mg/dL POC Glucose (mg/dL) 145 H 148 H (75-99) mg/dL Hemoglobin A1c (4.0-6.0) % AST (17-59) U/L Troponin I (0.000-0.034) ng/mL Total Protein (6.3-8.2) g/dL Triglycerides (<150) mg/dL HDL Cholesterol (40-60) mg/dL Microbiology - Last 24 Hours (Table) 08/14/18 Unknown Nasal Screen MRSA/MSSA - Preliminary Nasal Swab 08/14/18 Unknown Urine Culture - Preliminary Urine,Clean Catch
[2018-08-15] MEDS: CARVEDILOL 6.25 MG TAB PO SCH (17:01)
[2018-08-15 17:09] LABS: Glucose,Whole Blood 108 mg/dL (75-99)
[2018-08-15] MEDS ORDERED: hydrALAZINE HCL 20 MG/ML 1 ML VIAL IVP PRN (17:19)
[2018-08-15 20:40] LABS: Glucose,Whole Blood 126 mg/dL (75-99)
[2018-08-15] MEDS: hydrALAZINE HCL 25 MG TAB PO SCH (20:53)
[2018-08-15] MEDS: ASPIRIN 81 MG PO SCH (20:53)
[2018-08-15] MEDS: TAMSULOSIN 0.4 MG CAP.ER.24H PO SCH (20:53)
[2018-08-15] MEDS: ATORVASTATIN 80 MG TAB PO SCH (20:53)
[2018-08-16] MEDS: HEPARIN SOD,PORK IN 0.45% NACL 25,000 UNIT in 0.45% NACL 1 500ML.BAG IV SCH (01:49)
[2018-08-16 06:04] LABS: Basophils # (A) 0.1 k/uL (0-0.2); Basophils % (A) 1 %; Eosinophils # (A) 0.2 k/uL (0-0.7); Eosinophils % (A) 3 %; HCT 44.3 % (39.0-53.0); HGB 13.9 gm/dL (13.0-17.5); Lymphocytes # (A) 1.1 k/uL (1.0-4.8); Lymphocytes % (A) 16 %; MCH 28.5 pg (25.0-35.0); MCHC 31.3 g/dL (31.0-37.0); MCV 91.1 fL (80.0-100.0); Mean Platelet Volume 7.2; Monocytes # (A) 0.3 k/uL (0-1.0); Monocytes % (A) 5 %; Neutrophils # (A) 4.7 k/uL (1.3-7.7); Neutrophils % (A) 73 %; Platelet Count 151 k/uL (150-450); RBC 4.86 m/uL (4.30-5.90); RDW 14.9 % (11.5-15.5); WBC 6.4 k/uL (3.8-10.6)
[2018-08-16 06:06] LABS: Glucose,Whole Blood 95 mg/dL (75-99)
[2018-08-16 06:18] LABS: Albumin 3.7 g/dL (3.5-5.0); Calcium 9.2 mg/dL (8.4-10.2); Potassium 4.6 mmol/L (3.5-5.1); Total Bilirubin 0.8 mg/dL (0.2-1.3); Total Protein 6.6 g/dL (6.3-8.2)
[2018-08-16] MEDS: INSULIN ASPART 100 UNIT/ML 1 ML 10 ML VIAL SQ SCH ×3 (06:20→17:08)
[2018-08-16] MEDS: CARVEDILOL 6.25 MG TAB PO SCH ×2 (06:38→17:11)
[2018-08-16] MEDS: INSULIN DETEMIR 100 UNIT/ML 10 ML VIAL SQ SCH (08:13)
[2018-08-16] MEDS: LISINOPRIL 20 MG TAB PO SCH (08:14)
[2018-08-16] MEDS: MUPIROCIN 2% OINT 22 GM TUBE NASAL SCH (08:14)
[2018-08-16] MEDS: hydrALAZINE HCL 25 MG TAB PO SCH ×2 (08:16→21:48)
--- NOTE | 2018-08-16 09:00 | P.PN ---
Subjective Progress Note Date: 08/16/18 Principal diagnosis: Non-STEMI, symptomatic multivessel coronary artery disease, hypertension, insulin-dependent diabetes mellitus, COPD with a FEV1 of 87% of predicted, history of nicotine dependence quit smoking in 1979, history of prostate cancer with radiation more than 20 years ago, BPH, obesity, history of right nephrectomy in 1969 and hyperlipidemia. Patient is up ambulating in his room. He is in no acute distress. He denies any further complaints of chest pain or shortness of breath. Heparin drip infusing per protocol. He is achieving 1500 to 2000 mL on his intensive spirometry. Oxygen saturation are 97% on room air. He remains afebrile. Laboratory results showing WBCs 6.4, hemoglobin 13.9, BUN 22, creatinine 1.23. His admission creatinine was 1.44. Objective - Vital Signs Vital signs: Vital Signs Temp 97.6 F 08/16/18 08:00 Pulse 62 08/16/18 08:00 Resp 18 08/16/18 08:00 BP 114/56 08/16/18 08:00 Pulse Ox 94 L 08/16/18 08:00 Intake & Output 08/15/18 08/16/18 08/16/18 18:59 06:59 18:59 Intake Total 841.649 2350.704 220 Output Total 1250 1800 300 Balance -449.568 -515.296 -80 Weight 102.1 kg Intake: Intake, IV Titration 120.432 444.704 Amount Heparin Sod,Pork in 0.45% 120.432 444.704 NaCl 25,000 unit In 0.45 % NaCl 1 500ml.bag @ 9 UNITS/KG/HR 18.72 mls/hr IV .Q24H [facility] Rx#: [id number] Oral 680 840 220 Output: Urine 1250 1800 300 Other: Voiding Method Urinal # Voids 1 # Bowel Movements 1 - Constitutional General appearance: Present: cooperative, no acute distress, obese - Respiratory Details: Lung sounds with few expiratory wheezes throughout, diminished bilateral bases. Respirations are symmetrical and nonlabored. Oxygen saturation are 97% on room air. He is achieving 1500 mL to 2000 mL on his incentive spirometry. Preoperative FEV1 has been completed and shows a predicted value of 87%. - Cardiovascular Details: Regular rhythm and rate. S1 and S2 present, negative for S3, gallop or murmur. Remote telemetry showing normal sinus rhythm with bundle branch block heart rate 74. No edema present. - Gastrointestinal Gastrointestinal Comment(s): Abdomen is soft, nontender and nondistended. Active bowel sounds all 4 abdominal quadrants. Bowel movement this a.m. Tolerating oral intake. - Genitourinary Genitourinary Comment(s): Voiding clear yellow urine. - Integumentary Integumentary Comment(s): Skin is warm and dry. No clubbing or cyanosis present. No rash or abnormal pigmentation present. - Neurologic Neurologic: Present: CNII-XII intact - Musculoskeletal Musculoskeletal: Present: gait normal, strength equal bilaterally - Psychiatric Psychiatric: Present: A&O x's 3, appropriate affect, intact judgment & insight - Allied health notes Allied health notes reviewed: nursing - Labs CBC & Chem 7: 08/16/18 05:52 08/16/18 05:52 Labs: Abnormal Lab Results - Last 24 Hours (Table) 08/15/18 08/15/18 08/15/18 Range/Units 11:44 17:04 18:32 APTT 40.2 H (22.0-30.0) sec Chloride (98-107) mmol/L Carbon Dioxide (22-30) mmol/L BUN (9-20) mg/dL POC Glucose (mg/dL) 148 H 108 H (75-99) mg/dL 08/15/18 08/15/18 08/16/18 Range/Units 20:40 23:52 05:52 APTT 47.2 H (22.0-30.0) sec Chloride 111 H (98-107) mmol/L Carbon Dioxide 20 L (22-30) mmol/L BUN 22 H (9-20) mg/dL POC Glucose (mg/dL) 126 H (75-99) mg/dL 08/16/18 Range/Units 05:52 APTT 51.5 H (22.0-30.0) sec Chloride (98-107) mmol/L Carbon Dioxide (22-30) mmol/L BUN (9-20) mg/dL POC Glucose (mg/dL) (75-99) mg/dL Microbiology - Last 24 Hours (Table) 08/14/18 Unknown Urine Culture - Final Urine,Clean Catch - Imaging and Cardiology 2-D echocardiogram results reviewed. Overall left ventricular systolic function which shown to be severely impaired with an ejection fraction between 20 and 25%, mild mitral valve regurgitation, and mild tricuspid valve regurgitation. Assessment and Plan (1) NSTEMI (non-ST elevated myocardial infarction) Current Visit: Yes Status: Acute Code(s): I21.4 - NON-ST ELEVATION (NSTEMI) MYOCARDIAL INFARCTION SNOMED Code(s): 856758163 (2) CAD (coronary artery disease) Current Visit: Yes Status: Chronic Code(s): I25.10 - ATHSCL HEART DISEASE OF [place] CORONARY ARTERY W/O ANG PCTRS SNOMED Code(s): 52745139 (3) COPD (chronic obstructive pulmonary disease) Current Visit: Yes Status: Chronic Code(s): J44.9 - CHRONIC OBSTRUCTIVE PULMONARY DISEASE, UNSPECIFIED SNOMED Code(s): 48600067 (4) History of nephrectomy Current Visit: Yes Status: Chronic Code(s): Z90.5 - ACQUIRED ABSENCE OF KIDNEY SNOMED Code(s): 32517993909820 (5) History of prostate cancer Current Visit: Yes Status: Chronic Code(s): Z85.46 - PERSONAL HISTORY OF MALIGNANT NEOPLASM OF PROSTATE SNOMED Code(s): 394154608 (6) Hyperlipidemia Current Visit: Yes Status: Chronic Code(s): E78.5 - HYPERLIPIDEMIA, UNSPECIFIED SNOMED Code(s): 14192701 (7) Hypertension Current Visit: Yes Status: Chronic Code(s): I10 - ESSENTIAL (PRIMARY) HYPERTENSION SNOMED Code(s): 56451890 (8) Insulin dependent diabetes mellitus Current Visit: Yes Status: Chronic Code(s): E11.9 - TYPE 2 DIABETES MELLITUS WITHOUT COMPLICATIONS; Z79.4 - JAIL (CURRENT) USE OF INSULIN SNOMED Code(s): 36269518 (9) Left main coronary artery disease Current Visit: Yes Status: Chronic Code(s): I25.10 - ATHSCL HEART DISEASE OF [place] CORONARY ARTERY W/O ANG PCTRS SNOMED Code(s): 353957930 (10) Tobacco dependence in remission Current Visit: No Status: Resolved Code(s): F17.201 - NICOTINE DEPENDENCE, UNSPECIFIED, IN REMISSION SNOMED Code(s): 908180497 Plan: 1. Continue aspirin, Lipitor, beta laurie, ANDREAS inhibitor and heparin drip per protocol. 2. Continue preoperative teaching. 3. Continue to encourage use of his incentive spirometry every hour while awake. 4. Pulmonary management per Dr. Eller's recommendations. 5. Preoperative testing in progress. 6. Continue to optimize maximal medical therapy, myocardial revascularization surgical date pending. If patient develops further chest pain recommendations for placement of intra-aortic balloon pump. 7. Medical management per primary care service. 8. Further recommendations to follow based on patient's clinical course. 9. STS risk score was calculated and discussed with the patient by Dr. Hannah. Time with Patient: Greater than 30
--- NOTE | 2018-08-16 11:01 | P.PN ---
Subjective Patient is seen and examined sitting on the edge of the bed in no acute distress. He ambulated to the bathroom with no symptoms of chest pain, shortness of breath, dizziness or palpitations. He was seen this morning by cardiothoracic surgery and his surgical date is currently pending while he is undergoing preoperative testing. Laboratory data reviewed, hemoglobin 13.9, platelets 151, sodium 142, potassium 4.6, creatinine 1.23, troponin trending down at 3.39. Blood pressure 114/56 heart rate 62 afebrile maintaining oxygen saturation on room air. Currently maintained on aspirin 81 mg daily, atorvastatin 80 mg daily, carvedilol 6.25 mg twice a day, heparin infusion per protocol, hydralazine 25 mg twice a day, lisinopril 20 mg daily. GENERAL: Well-appearing, well-nourished and in no acute distress. NECK: Supple without JVD or thyromegaly. LUNGS: Breath sounds clear to auscultation bilaterally. Respiration equal and unlabored. No wheezes, rales or rhonchi. HEART: Regular rate and rhythm without murmurs, rubs or gallops. S1 and S2 heard. EXTREMITIES: Normal range of motion, no edema. No clubbing or cyanosis. Peripheral pulses intact. ASSESSMENT Severe coronary artery disease status post catheterization awaiting bypass surgery Hypertension Dyslipidemia Diabetes mellitus COPD Former nicotine dependence PLAN Continue current medical regimen. Awaiting surgical date and pre-operative testing. Continue heparin infusion. Further recommendations to follow. Nurse Practitioner note has been reviewed, I agree with a documented findings and plan of care. Patient was seen and examined. Objective - Vital Signs Vital signs: Vital Signs Temp 97.6 F 08/16/18 08:00 Pulse 62 08/16/18 08:00 Resp 18 08/16/18 08:00 BP 114/56 08/16/18 08:00 Pulse Ox 94 L 08/16/18 08:00 Intake & Output 08/15/18 08/16/18 08/16/18 18:59 06:59 18:59 Intake Total 087.852 7606.704 220 Output Total 1250 1800 300 Balance -449.568 -515.296 -80 Weight 102.1 kg Intake: Intake, IV Titration 120.432 444.704 Amount Heparin Sod,Pork in 0.45% 120.432 444.704 NaCl 25,000 unit In 0.45 % NaCl 1 500ml.bag @ 9 UNITS/KG/HR 18.72 mls/hr IV .Q24H [facility] Rx#: [id number] Oral 680 840 220 Output: Urine 1250 1800 300 Other: Voiding Method Urinal # Voids 1 # Bowel Movements 1 - Labs CBC & Chem 7: 08/16/18 05:52 08/16/18 05:52 Labs: Abnormal Lab Results - Last 24 Hours (Table) 08/15/18 08/15/18 08/15/18 Range/Units 11:44 17:04 18:32 APTT 40.2 H (22.0-30.0) sec Chloride (98-107) mmol/L Carbon Dioxide (22-30) mmol/L BUN (9-20) mg/dL POC Glucose (mg/dL) 148 H 108 H (75-99) mg/dL Troponin I (0.000-0.034) ng/mL 08/15/18 08/15/18 08/16/18 Range/Units 20:40 23:52 05:52 APTT 47.2 H (22.0-30.0) sec Chloride 111 H (98-107) mmol/L Carbon Dioxide 20 L (22-30) mmol/L BUN 22 H (9-20) mg/dL POC Glucose (mg/dL) 126 H (75-99) mg/dL Troponin I (0.000-0.034) ng/mL 08/16/18 08/16/18 Range/Units 05:52 08:52 APTT 51.5 H (22.0-30.0) sec Chloride (98-107) mmol/L Carbon Dioxide (22-30) mmol/L BUN (9-20) mg/dL POC Glucose (mg/dL) (75-99) mg/dL Troponin I 3.390 H* (0.000-0.034) ng/mL Microbiology - Last 24 Hours (Table) 08/14/18 Unknown Urine Culture - Final Urine,Clean Catch
--- NOTE | 2018-08-16 11:13 | P.PN ---
Subjective Progress Note Date: 08/16/18 Principal diagnosis: Symptomatic multivessel coronary artery disease, awaiting surgical revascularization. This is a 73-year-old white male patient of Dr. Joy Reagan, who presented emergency department on 08/13/2018 at 1840 evaluation of chest pain, associated with diaphoresis. The pain was non-radiating, and occurred after eating some spicy soup, patient was belching, and had some nausea. No vomiting. EKG showed some ST and T-wave abnormalities in the inferior, anterior, and lateral leads with T-wave inversion. Troponins were elevated at 0.128, 11.8, 11.8 and 9.270, patient was ruled in for non-ST elevated [place]. Patient was placed on IV heparin, aspirin, Coreg, nitroglycerin and he underwent cardiac catheterization this afternoon with Dr. ALISHA Harper which showed a distal lesion of the left main of 70% before bifurcation into LAD and circumflex with calcification, 60% narrowing in the LAD at the origin of the first diagonal branch, 70% stenosis in the LAD at the origin of the second diagonal branch with probable thrombus, first obtuse marginal with 80-90% stenosis proximally, and 60% narrowing in the circumflex after the first obtuse marginal, total occlusion of the proximal RCA with some collateral circulation from the left system to the right. Patient has past medical history of coronary artery disease, COPD, diabetes mellitus type 2, hypertension, previous nicotine dependence, history of right nephrectomy in 1969 and chronic kidney disease. Patient was recommended to undergo coronary revascularization and cardiothoracic surgery has been consulted. We are seeing this patient for pulmonary evaluation. On 08/15/2018, the patient has no specific complaints. He is not having any chest pain. Resting comfortably in bed. Bedside spirometry was noted and there is no significant obstructive airway limitation. Chest x-ray was reviewed and showed some elevation of the right hemidiaphragm. Otherwise there is some subsegmental atelectatic changes in the lung bases. He is an ex- smoker. He is an obese male patient with a BMI of 39.0. No previous history of DVT or pulmonary embolism. No home O2. He is an ex-smoker. Overall performance status is good. On 08/16/2018 patient seen in follow-up on selective care unit. He sitting up on bed, in no acute distress, denies any shortness of breath. No chest pain, he is on heparin drip. Room air pulse ox is 94%, vital signs are stable. Lung sounds are clear. Patient is possibly scheduled for surgical revascularization surgery on 08/17/2018. No acute complaints overnight. Sinus rhythm. Objective - Vital Signs Vital signs: Vital Signs Temp 97.6 F 08/16/18 08:00 Pulse 62 08/16/18 08:00 Resp 18 08/16/18 08:00 BP 114/56 08/16/18 08:00 Pulse Ox 94 L 08/16/18 08:00 Intake & Output 08/15/18 08/16/18 08/16/18 18:59 06:59 18:59 Intake Total 517.777 5323.704 220 Output Total 1250 1800 300 Balance -449.568 -515.296 -80 Weight 102.1 kg Intake: Intake, IV Titration 120.432 444.704 Amount Heparin Sod,Pork in 0.45% 120.432 444.704 NaCl 25,000 unit In 0.45 % NaCl 1 500ml.bag @ 9 UNITS/KG/HR 18.72 mls/hr IV .Q24H [facility] Rx#: [id number] Oral 680 840 220 Output: Urine 1250 1800 300 Other: Voiding Method Urinal # Voids 1 # Bowel Movements 1 - Exam GENERAL EXAM: Alert, pleasant, obese 73-year-old white male comfortable in no apparent distress. HEAD: Normocephalic/atraumatic. EYES: Normal reaction of pupils, equal size. Conjunctiva pink, sclera white. NOSE: Clear with pink turbinates. MOUTH: Missing teeth THROAT: No erythema or exudates. NECK: No masses, no JVD, no thyroid enlargement, no adenopathy. CHEST: No chest wall deformity. Symmetrical expansion. LUNGS: Equal air entry with bibasilar crackles, but no wheeze, rhonchi or dullness. CVS: Regular rate and rhythm, normal S1 and S2, no gallops, no murmurs, no rubs ABDOMEN: Soft, nontender. No hepatosplenomegaly, normal bowel sounds, no guarding or rigidity. EXTREMITIES: No clubbing, no edema, no cyanosis, 2+ pulses and upper and lower extremities. Right radial TR band is in place MUSCULOSKELETAL: Muscle strength and tone normal. SPINE: No scoliosis or deformity SKIN: No rashes CENTRAL NERVOUS SYSTEM: Alert and oriented -3. No focal deficits, tone is normal in all 4 extremities. PSYCHIATRIC: Alert and oriented -3. Appropriate affect. Intact judgment and insight. - Labs CBC & Chem 7: 08/16/18 05:52 08/16/18 05:52 Labs: Abnormal Lab Results - Last 24 Hours (Table) 08/15/18 08/15/18 08/15/18 Range/Units 11:44 17:04 18:32 APTT 40.2 H (22.0-30.0) sec Chloride (98-107) mmol/L Carbon Dioxide (22-30) mmol/L BUN (9-20) mg/dL POC Glucose (mg/dL) 148 H 108 H (75-99) mg/dL Troponin I (0.000-0.034) ng/mL 08/15/18 08/15/18 08/16/18 Range/Units 20:40 23:52 05:52 APTT 47.2 H (22.0-30.0) sec Chloride 111 H (98-107) mmol/L Carbon Dioxide 20 L (22-30) mmol/L BUN 22 H (9-20) mg/dL POC Glucose (mg/dL) 126 H (75-99) mg/dL Troponin I (0.000-0.034) ng/mL 08/16/18 08/16/18 Range/Units 05:52 08:52 APTT 51.5 H (22.0-30.0) sec Chloride (98-107) mmol/L Carbon Dioxide (22-30) mmol/L BUN (9-20) mg/dL POC Glucose (mg/dL) (75-99) mg/dL Troponin I 3.390 H* (0.000-0.034) ng/mL Microbiology - Last 24 Hours (Table) 08/14/18 Unknown Urine Culture - Final Urine,Clean Catch Assessment and Plan Plan: Assessment: #1. Acute non-ST elevated myocardial infarction, he has been scheduled for revascularization surgery on Friday and 08/17/2018 #2. Multivessel coronary artery disease, involving 70% left main stenosis, 70% LAD stenosis with thrombus, age 85% OM stenosis, patient has been scheduled for surgical revascularization surgery on Friday on 08/17/2018 #3. Ischemic cardiomyopathy, echocardiogram showed moderate global hypokinesis of LV, and severely impaired left ventricular systolic function with EF between 20-25% #3. Diabetes mellitus type 2, insulin-dependent #4. COPD, not on home oxygen, currently stable #5. Obesity #6. History of right nephrectomy, and history of CKD #7. History of nicotine dependence, in remission. Patient quit smoking 45 years ago, but prior to that smoked up to 3 packs a day for 30 years #8. Hypertension #9. History of BPH, on Flomax Plan: Patient is awaiting his surgery on Friday. Currently he denies any chest pain, shortness of breath. Based on risk calculation taking into account patient's severely impaired left ventricular systolic function, multivessel coronary artery disease, COPD, diabetes, obesity, patient has 7.5% mortality risk and high morbidity for surgical risk. I performed a history & physical examination of the patient and discussed their management with my nurse practitioner, Randi Root. I reviewed the nurse practitioner's note and agree with the documented findings and plan of care. Lung sounds are positive for bibasilar crackles. The findings and the impression was discussed with the patient. I attest to the documentation by the nurse practitioner. Time with Patient: Less than 30
[2018-08-16 11:58] LABS: Glucose,Whole Blood 113 mg/dL (75-99)
--- NOTE | 2018-08-16 12:29 | P.PN ---
Subjective Progress Note Date: 08/16/18 This is a 73-year-old male, patient of [facility]. He has a known past medical history of hypertension, diabetes mellitus, COPD, right nephrectomy 1970 and former smoker. Patient presents to the emergency room with complaints of chest pain with pressure and heaviness and diaphoresis. Symptoms had started yesterday. Patient was diagnosed with a non-ST elevated [place]. Initial troponin 0.128 then 11.6 and 11.8. Patient was started on IV heparin cardiology was consulted. And patient underwent heart catheterization today. The heart catheterization shows total occlusion of the right coronary artery. Left main is 70-75% stenosed. The left anterior descending coronary artery has a mid lesion of 70% with thrombus. Obtuse marginal had 80-85% stenosis. Cardiology is recommending open-heart surgery. That her surgery has been consulted. They have already evaluated patient and surgery we'll possibly be on Friday. Pulmonary service has also been consulted. Patient is receiving IV fluids. He was slightly dehydrated on admission creatinine was 1.44. Unclear baseline creatinine. Creatinine in March 2018 was 1.3. Patient currently is chest pain-free. He reports that symptoms started after eating spicy soup and when he came back home he belched a large amount of gas and is relieved the pressure. He has been chest pain-free. Cardiology has placed him on IV heparin and Aggrastat. On 08/15/2018 patient was seen and examined he is alert and oriented 3 in no apparent distress he is sitting at the edge of the bed and he denies any chest pain there is no shortness of breath at rest he has occasional cough no palpitation no nausea or vomiting no abdominal pain no diarrhea no constipation no burning with urination no frequency or urgency and no hematuria. On 08/16/2018 patient was seen and examined on the telemetry floor he is alert and oriented 3 in no distress he denies any new episodes of chest pain he denies any other symptoms there is no fever or chills no headache or dizziness no shortness of breath no cough no nausea or vomiting no abdominal pain no diarrhea no burning was urination no frequency or urgency and no hematuria Objective - Vital Signs Vital signs: Vital Signs Temp 97.6 F 08/16/18 12:00 Pulse 67 08/16/18 12:00 Resp 18 08/16/18 12:00 BP 157/75 08/16/18 12:00 Pulse Ox 96 08/16/18 12:00 Intake & Output 08/15/18 08/16/18 08/16/18 18:59 06:59 18:59 Intake Total 243.278 2973.704 220 Output Total 1250 1800 300 Balance -449.568 -515.296 -80 Weight 102.1 kg Intake: Intake, IV Titration 120.432 444.704 Amount Heparin Sod,Pork in 0.45% 120.432 444.704 NaCl 25,000 unit In 0.45 % NaCl 1 500ml.bag @ 9 UNITS/KG/HR 18.72 mls/hr IV .Q24H [facility] Rx#: [id number] Oral 680 840 220 Output: Urine 1250 1800 300 Other: Voiding Method Urinal # Voids 1 # Bowel Movements 1 - Exam Head normocephalic and atraumatic Neck supple no JVD no goiter Lungs clear to auscultation bilaterally no wheezing or crackles Heart regular rate and rhythm S1-S2, no rub or gallop Abdomen is soft nontender nondistended positive bowel sounds no hepatosplenomegaly Extremities no edema no cyanosis or clubbing Neuro alert and orientated to 3 - Labs CBC & Chem 7: 08/16/18 05:52 08/16/18 05:52 Labs: Abnormal Lab Results - Last 24 Hours (Table) 08/15/18 08/15/18 08/15/18 Range/Units 17:04 18:32 20:40 APTT 40.2 H (22.0-30.0) sec Chloride (98-107) mmol/L Carbon Dioxide (22-30) mmol/L BUN (9-20) mg/dL POC Glucose (mg/dL) 108 H 126 H (75-99) mg/dL Troponin I (0.000-0.034) ng/mL 08/15/18 08/16/18 08/16/18 Range/Units 23:52 05:52 05:52 APTT 47.2 H 51.5 H (22.0-30.0) sec Chloride 111 H (98-107) mmol/L Carbon Dioxide 20 L (22-30) mmol/L BUN 22 H (9-20) mg/dL POC Glucose (mg/dL) (75-99) mg/dL Troponin I (0.000-0.034) ng/mL 08/16/18 08/16/18 Range/Units 08:52 11:46 APTT (22.0-30.0) sec Chloride (98-107) mmol/L Carbon Dioxide (22-30) mmol/L BUN (9-20) mg/dL POC Glucose (mg/dL) 113 H (75-99) mg/dL Troponin I 3.390 H* (0.000-0.034) ng/mL Microbiology - Last 24 Hours (Table) 08/14/18 Unknown Urine Culture - Final Urine,Clean Catch Assessment and Plan Plan: 1. Acute Non-ST elevated myocardial infarction: Heart catheterization showing multivessel coronary artery disease with thrombus in the LAD. Patient has been seen by vascular surgery and planning for open heart surgery on Friday. Continue IV heparin and Aggrastat per cardiology. Continue with IV fluids. Pulmonary service also consulted for preop clearance. 2. Acute kidney injury: Unclear patient has chronic kidney disease. Creatinine in March 2018 was 1.3. Continue with IV fluid hydration. Creatinine is now down to 1.27 3. Essential hypertension 4. Diabetes mellitus insulin-dependent. Continue Levemir. Add sliding scale coverage and check A1c 5. History of COPD: No evidence of exacerbation. continue albuterol nebulizer as needed 6. BPH continue Flomax 7. Atelectasis noted on chest x-ray order incentive spirometer 8. Obesity BMI 39.4 kg
[2018-08-16] MEDS ORDERED: PROPOFOL 1,000 MG in EMPTY BAG 1 BAG IV ONE (13:18)
[2018-08-16] MEDS ORDERED: SODIUM BICARB 8.4% 50 ML SYR (1 MEQ/ML) IV ONE (13:18)
[2018-08-16] MEDS ORDERED: DEXTROSE 5% IN WATER 1,000 ML with POTASSIUM CHLORIDE 110 MEQ, MAGNESIUM SULFATE 16 MEQ... IV SCH ×5 (13:30)
[2018-08-16] MEDS ORDERED: DEXTROSE 5% IN WATER 1,000 ML with POTASSIUM CHLORIDE 25 MEQ, SODIUM CHLORIDE 2.5MEQ/ML... IV SCH ×6 (13:30)
[2018-08-16] MEDS: ALBUTEROL NEBULIZED 2.5 MG/3 ML INHALATION PRN (13:32)
[2018-08-16 14:28] LABS: Basophils % (A) 1 %; Eosinophils # (A) 0.1 k/uL (0-0.7); Eosinophils % (A) 2 %; HCT 43.7 % (39.0-53.0); HGB 13.4 gm/dL (13.0-17.5); Hypochromasia Slight; Lymphocytes # (A) 0.8 k/uL (1.0-4.8); Lymphocytes % (A) 13 %; MCH 28.5 pg (25.0-35.0); MCHC 30.8 g/dL (31.0-37.0); MCV 92.7 fL (80.0-100.0); Mean Platelet Volume 7.3; Monocytes # (A) 0.4 k/uL (0-1.0); Monocytes % (A) 5 %; Neutrophils # (A) 5.2 k/uL (1.3-7.7); Neutrophils % (A) 78 %; Platelet Count 143 k/uL (150-450); RBC 4.71 m/uL (4.30-5.90); WBC 6.6 k/uL (3.8-10.6)
[2018-08-16 15:08] LABS: Albumin 3.8 g/dL (3.5-5.0); Calcium 9.4 mg/dL (8.4-10.2); Potassium 4.9 mmol/L (3.5-5.1); Total Bilirubin 0.6 mg/dL (0.2-1.3); Total Protein 6.6 g/dL (6.3-8.2)
[2018-08-16 17:07] LABS: Glucose,Whole Blood 87 mg/dL (75-99)
[2018-08-16 21:21] LABS: Glucose,Whole Blood 116 mg/dL (75-99)
[2018-08-16] MEDS: ATORVASTATIN 80 MG TAB PO SCH (21:46)
[2018-08-16] MEDS: TAMSULOSIN 0.4 MG CAP.ER.24H PO SCH (21:46)
[2018-08-16] MEDS: ASPIRIN 81 MG PO SCH (21:46)
[2018-08-17] MEDS ORDERED: ASPIRIN 325 MG TAB PO ONE (05:00)
[2018-08-17] MEDS ORDERED: INSULIN REGULAR 100 UNIT in SODIUM CHLORIDE 0.9% 100 ML IV ONE (05:00)
[2018-08-17] MEDS ORDERED: PROPOFOL 1,000 MG in EMPTY BAG 1 BAG IV ONE (05:00)
[2018-08-17] MEDS ORDERED: TRANEXAMIC ACID 2,000 MG in SODIUM CHLORIDE 0.9% 180 ML IV ONE (05:00)
[2018-08-17] MEDS ORDERED: HEPARIN SODIUM,PORCINE 5,000 UNIT in SODIUM CHLORIDE 0.9% 500 ML IV ONE (05:00)
[2018-08-17] MEDS ORDERED: NOREPINEPHRINE 4 MG in SODIUM CHLORIDE 0.9% 250 ML IV SCH ×2 (05:00→15:15)
[2018-08-17] MEDS ORDERED: CHLORHEXIDINE GLUCONATE 15 ML CUP MUCOUS MEM ONE (05:00)
[2018-08-17] MEDS ORDERED: PROTAMINE SULFATE 250 MG in EMPTY BAG 1 BAG IV ONE (05:00)
[2018-08-17] MEDS ORDERED: PHENYLEPHRINE 40 MG in SODIUM CHLORIDE 0.9% 250 ML IV ONE (05:00)
[2018-08-17] MEDS ORDERED: SODIUM BICARB 8.4% 50 ML SYR (1 MEQ/ML) IV ONE (05:00)
[2018-08-17] MEDS ORDERED: PAPAVERINE 360 MG in SODIUM CHLORIDE 0.9% 90 ML IV ONE (05:00)
[2018-08-17] MEDS ORDERED: ceFAZolin 2,000 MG in SODIUM CHLORIDE 0.9% 30 ML IVPB ONE (05:00)
[2018-08-17] MEDS ORDERED: ALBUMIN HUMAN 5% 500 ML in EMPTY BAG 1 BAG IVPB ONE ×6 (05:00)
[2018-08-17] MEDS ORDERED: MAGNESIUM SULFATE SYG 4.06 MEQ/ML SYRINGE IV ONE (05:00)
[2018-08-17] MEDS ORDERED: PHENYLEPHRINE-0.9% NACL SYG 1 MG/10 ML SYRINGE IV ONE ×4 (05:00)
[2018-08-17] MEDS ORDERED: CALCIUM CHLORIDE 100 MG/ML 10 ML SYRINGE IVP ONE (05:00)
[2018-08-17] MEDS ORDERED: ATORVASTATIN 10 MG TAB PO ONE (05:00)
[2018-08-17] MEDS ORDERED: PROTAMINE SULFATE 10 MG/ML 25 ML VIAL IV ONE (05:00)
[2018-08-17] MEDS ORDERED: ALBUMIN HUMAN 25% 50 ML in EMPTY BAG 1 BAG IVPB ONE (05:00)
[2018-08-17] MEDS ORDERED: NITROGLYCERIN-D5W PMX 25 MG/250 ML BTL IV ONE (05:00)
[2018-08-17] MEDS ORDERED: DEXTROSE 5% IN WATER 1,000 ML with POTASSIUM CHLORIDE 110 MEQ, MAGNESIUM SULFATE 16 MEQ... IV SCH ×5 (05:00)
[2018-08-17] MEDS ORDERED: HEPARIN SODIUM 1,000 UN/ML (10ML VL) IV ONE (05:00)
[2018-08-17] MEDS ORDERED: DEXTROSE 5% IN WATER 1,000 ML with POTASSIUM CHLORIDE 25 MEQ, SODIUM CHLORIDE 2.5MEQ/ML... IV SCH ×6 (05:00)
[2018-08-17] MEDS ORDERED: LACTATED RINGERS 1,000 ML IV SCH (05:00)
[2018-08-17] MEDS ORDERED: ceFAZolin 1,000 MG in SODIUM CHLORIDE 0.9% IRRIGATIO 1,000 ML IRRIGATION ONE (05:00)
[2018-08-17] MEDS ORDERED: CLEVIDIPINE BUTYRATE 25 MG in EMPTY BAG 1 BAG IV ONE (05:00)
[2018-08-17] MEDS ORDERED: MANNITOL 25% 12.5 GM/50 ML VIAL IV ONE ×2 (05:00)
[2018-08-17] MEDS: INSULIN ASPART 100 UNIT/ML 1 ML 10 ML VIAL SQ SCH (05:20)
[2018-08-17] MEDS: INSULIN DETEMIR 100 UNIT/ML 10 ML VIAL SQ SCH (05:20)
[2018-08-17] MEDS: MUPIROCIN 2% OINT 22 GM TUBE NASAL SCH ×2 (05:20→21:47)
[2018-08-17] MEDS: CARVEDILOL 6.25 MG TAB PO SCH (05:32)
[2018-08-17 05:35] LABS: Glucose,Whole Blood 128 mg/dL (75-99)
[2018-08-17 05:49] LABS: Basophils # (A) 0.1 k/uL (0-0.2); Basophils % (A) 1 %; Eosinophils # (A) 0.2 k/uL (0-0.7); Eosinophils % (A) 3 %; HCT 42.3 % (39.0-53.0); Lymphocytes # (A) 0.7 k/uL (1.0-4.8); Lymphocytes % (A) 12 %; MCH 28.2 pg (25.0-35.0); MCHC 30.6 g/dL (31.0-37.0); MCV 92.1 fL (80.0-100.0); Mean Platelet Volume 7.2; Monocytes # (A) 0.3 k/uL (0-1.0); Monocytes % (A) 5 %; Neutrophils # (A) 4.6 k/uL (1.3-7.7); Neutrophils % (A) 78 %; Platelet Count 133 k/uL (150-450); RBC 4.59 m/uL (4.30-5.90); WBC 5.9 k/uL (3.8-10.6)
[2018-08-17 06:02] LABS: Partial Thromboplastin Time 49.9 sec (22.0-30.0); Prothrombin Time 10.2 sec (9.0-12.0)
[2018-08-17 06:10] LABS: Albumin 3.6 g/dL (3.5-5.0); Calcium 9.3 mg/dL (8.4-10.2); Potassium 4.7 mmol/L (3.5-5.1); Total Bilirubin 0.8 mg/dL (0.2-1.3); Total Protein 6.3 g/dL (6.3-8.2)
[2018-08-17] MEDS ORDERED: IV FLUID CONTINUATION 150 ML IV ONE (06:23)
[2018-08-17 06:52] LABS: Glucose,Whole Blood 134 mg/dL (75-99)
[2018-08-17] MEDS: ceFAZolin 2 GM in SODIUM CHLORIDE 0.9% 30 ML IVPB ONE ×2 (08:15→09:13)
[2018-08-17] MEDS ORDERED: DEXMEDETOMIDINE/0.9% NACL(PMX) 400 MCG in EMPTY BAG 1 BAG IV SCH (08:15)
[2018-08-17 08:51] LABS: ABG Base Excess -2.1 mmol/L; ABG HCO3 24 mmol/L (21-25); ABG PCO2 45 mmHg (35-45); ABG PH 7.33 (7.35-7.45); ABG PO2 320 mmHg (83-108); ABG Potassium Whole Blood 4.8 mmol/L (3.4-4.5); ABG Sodium Whole Blood 139 mmol/L (135-146); ABG TCO2 25 mmol/L (19-24)
[2018-08-17 10:08] LABS: ABG Base Excess -3.3 mmol/L; ABG HCO3 24 mmol/L (21-25); ABG Oxygen Saturation 96.9 % (94-97); ABG PCO2 50 mmHg (35-45); ABG PH 7.28 (7.35-7.45); ABG PO2 97 mmHg (83-108); ABG Potassium Whole Blood 5.1 mmol/L (3.4-4.5); ABG Sodium Whole Blood 139 mmol/L (135-146); ABG TCO2 25 mmol/L (19-24)
[2018-08-17 10:58] LABS: ABG Base Excess -0.4 mmol/L; ABG HCO3 24 mmol/L (21-25); ABG PCO2 39 mmHg (35-45); ABG Potassium Whole Blood 4.8 mmol/L (3.4-4.5); ABG Sodium Whole Blood 138 mmol/L (135-146); ABG TCO2 25 mmol/L (19-24)
[2018-08-17 11:37] LABS: ABG HCO3 25 mmol/L (21-25); ABG PCO2 41 mmHg (35-45); ABG PO2 297 mmHg (83-108); ABG Potassium Whole Blood 5.6 mmol/L (3.4-4.5); ABG Sodium Whole Blood 135 mmol/L (135-146); ABG TCO2 26 mmol/L (19-24)
[2018-08-17 12:17] LABS: ABG Base Excess -0.3 mmol/L; ABG HCO3 25 mmol/L (21-25); ABG PCO2 42 mmHg (35-45); ABG PH 7.38 (7.35-7.45); ABG PO2 373 mmHg (83-108); ABG Potassium Whole Blood 5.3 mmol/L (3.4-4.5); ABG Sodium Whole Blood 135 mmol/L (135-146); ABG TCO2 26 mmol/L (19-24)
[2018-08-17 12:23] LABS: ABG PO2 >420 mmHg (83-108)
[2018-08-17 12:55] LABS: ABG Base Excess -0.3 mmol/L; ABG HCO3 24 mmol/L (21-25); ABG PCO2 36 mmHg (35-45); ABG PH 7.43 (7.35-7.45); ABG Sodium Whole Blood 136 mmol/L (135-146); ABG TCO2 25 mmol/L (19-24)
[2018-08-17 14:02] LABS: ABG Base Excess -1.1 mmol/L; ABG HCO3 25 mmol/L (21-25); ABG Oxygen Saturation 98.7 % (94-97); ABG PCO2 47 mmHg (35-45); ABG PH 7.34 (7.35-7.45); ABG PO2 111 mmHg (83-108); ABG Potassium Whole Blood 4.5 mmol/L (3.4-4.5); ABG Sodium Whole Blood 139 mmol/L (135-146); ABG TCO2 26 mmol/L (19-24)
[2018-08-17 14:21] LABS: ABG PO2 >420 mmHg (83-108)
[2018-08-17] MEDS ORDERED: Magnesium Replacement Protocol 1 EACH MISC MISCELLANE PRN (15:06)
[2018-08-17] MEDS ORDERED: ONDANSETRON 4 MG/2 ML VIAL IVP PRN (15:06)
[2018-08-17] MEDS ORDERED: BENZOCAINE/MENTHOL LOZENG 1 EACH LOZENGE MUCOUS MEM PRN (15:06)
[2018-08-17] MEDS ORDERED: CALCIUM CHLORIDE 1,000 MG in SODIUM CHLORIDE 0.9% 100 ML IV PRN (15:06)
[2018-08-17] MEDS ORDERED: NITROGLYCERIN-D5W PMX 50 MG in DEXTROSE/WATER 1 250ML.BAG IV SCH (15:06)
[2018-08-17] MEDS ORDERED: Phosphorus Replacement Protoco 1 EACH MISC MISCELLANE PRN (15:06)
[2018-08-17] MEDS ORDERED: IPRATROPIUM-ALBUTEROL 3 ML NEB INHALATION PRN (15:06)
[2018-08-17] MEDS ORDERED: Potassium Replacement Protocol 1 EACH MISC MISCELLANE PRN (15:06)
[2018-08-17] MEDS ORDERED: METOCLOPRAMIDE 5 MG/ML 2 ML VIAL IVP PRN (15:06)
[2018-08-17] MEDS: MILRINONE-D5W PMX 20 MG in DEXTROSE/WATER 1 100ML.BAG IV SCH (15:15)
[2018-08-17 15:37] LABS: Glucose,Whole Blood 116 mg/dL (75-99)
[2018-08-17] MEDS: LACTATED RINGERS 1,000 ML IV SCH (15:40)
[2018-08-17] MEDS: NITROGLYCERIN-D5W PMX 50 MG in DEXTROSE/WATER 1 250ML.BAG IV ONE ×2 (16:00→16:32)
--- NOTE | 2018-08-17 16:03 | P.PN ---
Subjective Progress Note Date: 08/17/18 This is a 73-year-old male, patient of [facility]. He has a known past medical history of hypertension, diabetes mellitus, COPD, right nephrectomy 1970 and former smoker. Patient presents to the emergency room with complaints of chest pain with pressure and heaviness and diaphoresis. Symptoms had started yesterday. Patient was diagnosed with a non-ST elevated [place]. Initial troponin 0.128 then 11.6 and 11.8. Patient was started on IV heparin cardiology was consulted. And patient underwent heart catheterization today. The heart catheterization shows total occlusion of the right coronary artery. Left main is 70-75% stenosed. The left anterior descending coronary artery has a mid lesion of 70% with thrombus. Obtuse marginal had 80-85% stenosis. Cardiology is recommending open-heart surgery. That her surgery has been consulted. They have already evaluated patient and surgery we'll possibly be on Friday. Pulmonary service has also been consulted. Patient is receiving IV fluids. He was slightly dehydrated on admission creatinine was 1.44. Unclear baseline creatinine. Creatinine in March 2018 was 1.3. Patient currently is chest pain-free. He reports that symptoms started after eating spicy soup and when he came back home he belched a large amount of gas and is relieved the pressure. He has been chest pain-free. Cardiology has placed him on IV heparin and Aggrastat. On 08/15/2018 patient was seen and examined he is alert and oriented 3 in no apparent distress he is sitting at the edge of the bed and he denies any chest pain there is no shortness of breath at rest he has occasional cough no palpitation no nausea or vomiting no abdominal pain no diarrhea no constipation no burning with urination no frequency or urgency and no hematuria. On 08/16/2018 patient was seen and examined on the telemetry floor he is alert and oriented 3 in no distress he denies any new episodes of chest pain he denies any other symptoms there is no fever or chills no headache or dizziness no shortness of breath no cough no nausea or vomiting no abdominal pain no diarrhea no burning was urination no frequency or urgency and no hematuria On 08/17/2018 Patient had coronary artery bypass graft [address] Hannah today. Patient currently intubated and on sedation. Patient remains in the intensive care unit. Patient currently on levophed for pressure support. Objective - Vital Signs Vital signs: Vital Signs Temp 98.1 F 08/17/18 06:35 Pulse 68 08/17/18 06:35 Resp 18 08/17/18 06:35 BP 142/78 08/17/18 06:35 Pulse Ox 96 08/17/18 06:35 Intake & Output 08/16/18 08/17/18 08/17/18 18:59 06:59 18:59 Intake Total 940 33 Output Total 1500 2200 2200 Balance -560 -2200 -2167 Weight 102.1 kg 101.6 kg Intake: IV 33 Oral 940 Output: Urine 1500 2200 700 Estimated Blood Loss 1500 Other: Voiding Method Urinal # Voids 1 1 - Exam Head normocephalic Neck supple Lungs patient currently intubated Heart regular rate and rhythm S1-S2, no rub or gallop Abdomen is soft nontender nondistended positive bowel sounds no hepatosplenomegaly Extremities no edema - Labs CBC & Chem 7: 08/17/18 05:29 08/17/18 05:29 Labs: Abnormal Lab Results - Last 24 Hours (Table) 08/16/18 08/16/18 08/17/18 Range/Units 13:55 21:20 05:29 MCHC 30.6 L (31.0-37.0) g/dL Plt Count 133 L (150-450) k/uL Lymphocytes # 0.7 L (1.0-4.8) k/uL APTT (22.0-30.0) sec ABG pH (7.35-7.45) ABG pCO2 (35-45) mmHg ABG pO2 (83-108) mmHg ABG Total CO2 (19-24) mmol/L ABG O2 Saturation (94-97) % ABG Hematocrit (34.0-46.0) % ABG Potassium (3.4-4.5) mmol/L ABG Ionized Calcium (4.5-5.3) mg/dL ABG Glucose (75-99) mg/dL ABG Lactic Acid (0.5-1.6) mmol/L Hemoglobin (13.0-17.5) gm/dL Chloride (98-107) mmol/L BUN (9-20) mg/dL Glucose (74-99) mg/dL POC Glucose (mg/dL) 116 H (75-99) mg/dL Arterial Blood Potassium (3.4-4.5) mmol/L Arterial Blood Glucose (75-99) mg/dL Crossmatch See Detail 08/17/18 08/17/18 08/17/18 Range/Units 05:29 05:29 05:33 MCHC (31.0-37.0) g/dL Plt Count (150-450) k/uL Lymphocytes # (1.0-4.8) k/uL APTT 49.9 H (22.0-30.0) sec ABG pH (7.35-7.45) ABG pCO2 (35-45) mmHg ABG pO2 (83-108) mmHg ABG Total CO2 (19-24) mmol/L ABG O2 Saturation (94-97) % ABG Hematocrit (34.0-46.0) % ABG Potassium (3.4-4.5) mmol/L ABG Ionized Calcium (4.5-5.3) mg/dL ABG Glucose (75-99) mg/dL ABG Lactic Acid (0.5-1.6) mmol/L Hemoglobin (13.0-17.5) gm/dL Chloride 108 H (98-107) mmol/L BUN 25 H (9-20) mg/dL Glucose 133 H (74-99) mg/dL POC Glucose (mg/dL) 128 H (75-99) mg/dL Arterial Blood Potassium (3.4-4.5) mmol/L Arterial Blood Glucose (75-99) mg/dL Crossmatch 08/17/18 08/17/18 08/17/18 Range/Units 06:41 08:54 10:11 MCHC (31.0-37.0) g/dL Plt Count (150-450) k/uL Lymphocytes # (1.0-4.8) k/uL APTT (22.0-30.0) sec ABG pH 7.33 L 7.28 L (7.35-7.45) ABG pCO2 50 H (35-45) mmHg ABG pO2 320 H (83-108) mmHg ABG Total CO2 25 H 25 H (19-24) mmol/L ABG O2 Saturation 100.0 H (94-97) % ABG Hematocrit (34.0-46.0) % ABG Potassium 4.8 H 5.1 H (3.4-4.5) mmol/L ABG Ionized Calcium (4.5-5.3) mg/dL ABG Glucose 151 H 171 H (75-99) mg/dL ABG Lactic Acid (0.5-1.6) mmol/L Hemoglobin 12.5 L 11.7 L (13.0-17.5) gm/dL Chloride (98-107) mmol/L BUN (9-20) mg/dL Glucose (74-99) mg/dL POC Glucose (mg/dL) 134 H (75-99) mg/dL Arterial Blood Potassium 4.8 H 5.1 H (3.4-4.5) mmol/L Arterial Blood Glucose 151 H 171 H (75-99) mg/dL Crossmatch 08/17/18 08/17/18 08/17/18 Range/Units 11:01 11:40 12:20 MCHC (31.0-37.0) g/dL Plt Count (150-450) k/uL Lymphocytes # (1.0-4.8) k/uL APTT (22.0-30.0) sec ABG pH (7.35-7.45) ABG pCO2 (35-45) mmHg ABG pO2 >420 H 297 H 373 H (83-108) mmHg ABG Total CO2 25 H 26 H 26 H (19-24) mmol/L ABG O2 Saturation 100.0 H 100.0 H 100.0 H (94-97) % ABG Hematocrit 26 L 24 L 23 L (34.0-46.0) % ABG Potassium 4.8 H 5.6 H 5.3 H (3.4-4.5) mmol/L ABG Ionized Calcium 4.2 L 4.2 L 4.2 L (4.5-5.3) mg/dL ABG Glucose 149 H 231 H 232 H (75-99) mg/dL ABG Lactic Acid (0.5-1.6) mmol/L Hemoglobin 8.5 L 7.7 L 7.6 L (13.0-17.5) gm/dL Chloride (98-107) mmol/L BUN (9-20) mg/dL Glucose (74-99) mg/dL POC Glucose (mg/dL) (75-99) mg/dL Arterial Blood Potassium 4.8 H 5.6 H 5.3 H (3.4-4.5) mmol/L Arterial Blood Glucose 149 H 231 H 232 H (75-99) mg/dL Crossmatch 08/17/18 08/17/18 Range/Units 12:58 14:05 MCHC (31.0-37.0) g/dL Plt Count (150-450) k/uL Lymphocytes # (1.0-4.8) k/uL APTT (22.0-30.0) sec ABG pH 7.34 L (7.35-7.45) ABG pCO2 47 H (35-45) mmHg ABG pO2 >420 H 111 H (83-108) mmHg ABG Total CO2 25 H 26 H (19-24) mmol/L ABG O2 Saturation 100.0 H 98.7 H (94-97) % ABG Hematocrit 23 L 28 L (34.0-46.0) % ABG Potassium 5.0 H (3.4-4.5) mmol/L ABG Ionized Calcium 4.1 L (4.5-5.3) mg/dL ABG Glucose 194 H 155 H (75-99) mg/dL ABG Lactic Acid 1.7 H (0.5-1.6) mmol/L Hemoglobin 7.5 L 9.0 L (13.0-17.5) gm/dL Chloride (98-107) mmol/L BUN (9-20) mg/dL Glucose (74-99) mg/dL POC Glucose (mg/dL) (75-99) mg/dL Arterial Blood Potassium 5.0 H (3.4-4.5) mmol/L Arterial Blood Glucose 194 H 155 H (75-99) mg/dL Crossmatch Microbiology - Last 24 Hours (Table) 08/14/18 Unknown Nasal Screen MRSA/MSSA - Final Nasal Swab Assessment and Plan Assessment: 1. Status post coronary artery bypass graft [address] Hannah[address] The CHAHAL to LAD , SVG to PDA and Circ. Patient currently intubated and on sedation. Patient regularly Levophed for pressure support. Cardiovascular team and critical care team following closely. 2. Acute Non-ST elevated myocardial infarction: Heart catheterization showing multivessel coronary artery disease with thrombus in the LAD. Patient has been seen by vascular surgery and planning for open heart surgery on Friday. Continue IV heparin and Aggrastat per cardiology. Continue with IV fluids. Pulmonary service also consulted for preop clearance. 3. Acute kidney injury: Unclear patient has chronic kidney disease. Creatinine in March 2018 was 1.3. Continue with IV fluid hydration. Creatinine is now down to 1.27 4. Essential hypertension 5. Diabetes mellitus insulin-dependent. Continue Levemir. Add sliding scale coverage. Hemoglobin A1c 7.1 6. History of COPD: No evidence of exacerbation. continue albuterol nebulizer as needed 7. BPH continue Flomax 8. Atelectasis noted on chest x-ray order incentive spirometer 9. Obesity BMI 39.4 kg I performed an examination of the patient and discussed their management with the Nurse Practitioner. I have reviewed the Nurse Practitioner's notes and agree with the documented findings and plan of care
[2018-08-17 16:04] LABS: Ionized Calcium 5.7 mg/dL (4.5-5.3)
[2018-08-17 16:08] LABS: Basophils % (A) 0 %; Eosinophils % (A) 0 %; HCT 26.3 % (39.0-53.0); Hypochromasia Slight; Lymphocytes # (A) 0.4 k/uL (1.0-4.8); Lymphocytes % (A) 5 %; MCH 30.1 pg (25.0-35.0); MCHC 32.4 g/dL (31.0-37.0); MCV 92.9 fL (80.0-100.0); Mean Platelet Volume 7.7; Monocytes # (A) 0.5 k/uL (0-1.0); Monocytes % (A) 6 %; Neutrophils # (A) 7.6 k/uL (1.3-7.7); Neutrophils % (A) 88 %; Platelet Count 101 k/uL (150-450); RBC 2.83 m/uL (4.30-5.90); RDW 14.9 % (11.5-15.5); WBC 8.6 k/uL (3.8-10.6)
[2018-08-17 16:09] LABS: HGB 8.5 gm/dL (13.0-17.5); INR 1.2 (<1.2); Partial Thromboplastin Time 31.3 sec (22.0-30.0); Prothrombin Time 11.5 sec (9.0-12.0)
[2018-08-17 16:09] LABS: ABG HCO3 23 mmol/L (21-25); ABG Oxygen Saturation 94.7 % (94-97); ABG PCO2 53 mmHg (35-45); ABG PH 7.25 (7.35-7.45); ABG PO2 79 mmHg (83-108); ABG TCO2 25 mmol/L (19-24)
[2018-08-17 16:14] LABS: Albumin 3.1 g/dL (3.5-5.0); Calcium 8.8 mg/dL (8.4-10.2); Magnesium 2.3 mg/dL (1.6-2.3); Potassium 4.8 mmol/L (3.5-5.1); Total Bilirubin 0.8 mg/dL (0.2-1.3); Total Protein 4.9 g/dL (6.3-8.2)
--- NOTE | 2018-08-17 16:24 | XR ---
EXAMINATION TYPE: XR chest 1V portable DATE OF EXAM: 08/17/2018 HISTORY: Post Op CABG COMPARISON: 08/13/2018 TECHNIQUE: Single view of the chest is submitted. FINDINGS: Endotracheal tube, NG tube, SG catheter, mediastianal drains and chest tubes are appropriately placed . Post operative changes of CABG. No sizeable pneumothorax. Scattered Pleural-parenchymal opacities may reflect atelectasis. The heart is not enlarged. IMPRESSION: 1. Post operative changes of CABG.
[2018-08-17] MEDS: ALBUMIN HUMAN 5% 250 ML in EMPTY BAG 1 BAG IVPB PRN ×3 (16:25→23:12)
[2018-08-17] MEDS: ceFAZolin IN SWFI 2 GM/20 ML SYRINGE IVP SCH ×2 (16:35→23:13)
[2018-08-17 16:46] LABS: Glucose,Whole Blood 115 mg/dL (75-99)
--- NOTE | 2018-08-17 16:55 | P.PN ---
Subjective Progress Note Date: 08/17/18 Principal diagnosis: Symptomatic multivessel coronary artery disease, awaiting surgical revascularization. This is a 73-year-old white male patient of Dr. Joy Reagan, who presented emergency department on 08/13/2018 at 1840 evaluation of chest pain, associated with diaphoresis. The pain was non-radiating, and occurred after eating some spicy soup, patient was belching, and had some nausea. No vomiting. EKG showed some ST and T-wave abnormalities in the inferior, anterior, and lateral leads with T-wave inversion. Troponins were elevated at 0.128, 11.8, 11.8 and 9.270, patient was ruled in for non-ST elevated GA. Patient was placed on IV heparin, aspirin, Coreg, nitroglycerin and he underwent cardiac catheterization this afternoon with Dr. ALISHA Harper which showed a distal lesion of the left main of 70% before bifurcation into LAD and circumflex with calcification, 60% narrowing in the LAD at the origin of the first diagonal branch, 70% stenosis in the LAD at the origin of the second diagonal branch with probable thrombus, first obtuse marginal with 80-90% stenosis proximally, and 60% narrowing in the circumflex after the first obtuse marginal, total occlusion of the proximal RCA with some collateral circulation from the left system to the right. Patient has past medical history of coronary artery disease, COPD, diabetes mellitus type 2, hypertension, previous nicotine dependence, history of right nephrectomy in 1969 and chronic kidney disease. Patient was recommended to undergo coronary revascularization and cardiothoracic surgery has been consulted. We are seeing this patient for pulmonary evaluation. On 08/15/2018, the patient has no specific complaints. He is not having any chest pain. Resting comfortably in bed. Bedside spirometry was noted and there is no significant obstructive airway limitation. Chest x-ray was reviewed and showed some elevation of the right hemidiaphragm. Otherwise there is some subsegmental atelectatic changes in the lung bases. He is an ex- smoker. He is an obese male patient with a BMI of 39.0. No previous history of DVT or pulmonary embolism. No home O2. He is an ex-smoker. Overall performance status is good. On 08/16/2018 patient seen in follow-up on selective care unit. He sitting up on bed, in no acute distress, denies any shortness of breath. No chest pain, he is on heparin drip. Room air pulse ox is 94%, vital signs are stable. Lung sounds are clear. Patient is possibly scheduled for surgical revascularization surgery on 08/17/2018. No acute complaints overnight. Sinus rhythm. On 08/17/2018 patient seen in follow-up in the intensive care unit, he is status post three-vessel coronary artery bypass grafting, with CHAHAL to LAD, SVG to the PDA, and circumflex. Patient is currently sedated, intubated, on mechanical ventilator, and current vent settings are SIMV mode with a rate of 12 , tidal volume 500, FiO2 of 50% and PEEP of 10. IV drips include LR at a rate of 40, levothyroid at a rate of 10 mics per minute, Primacor is at 0.2 mics per kilo per minute, Precedex is at 0.2 mics per kilo per hour. Patient received 1500 of crystalloids and 1500 mL of 5% albumin, in addition to Cell Saver. [place] -Eliazar catheter is in place, with PA pressures of 50/32, CVP of 25, cardiac output of 7.3, and cardiac index of 3.6. Patient has 2 mediastinal chest tubes and left pleural chest tubes with small amount of sanguinous output. AV epicardial wires are in place, patient is currently being paced at her mode of AAI with a rate of 80 BPM. The blood work showed WBC of 8.6, hemoglobin of 8.5 , INR 1.2, sodium of 140, potassium is 4.8, chloride is 110, BUN of 21, creatinine is 1.09. Blood gas showed pO2 of 79, pCO2 of 53, pH of 7.25. Vent settings were adjusted, and rate was increased to IMV with a rate of 18 breaths per minute. Suero catheter is in place, and patient is producing 30-50 ML per hour. Objective - Vital Signs Vital signs: Vital Signs Temp 98.1 F 08/17/18 06:35 Pulse 80 08/17/18 16:15 Resp 16 08/17/18 16:15 BP 142/78 08/17/18 06:35 Pulse Ox 93 L 08/17/18 16:15 Intake & Output 08/16/18 08/17/18 08/17/18 18:59 06:59 18:59 Intake Total 940 39.855 Output Total 1500 2200 2200 Balance -560 -2200 -2160.145 Weight 102.1 kg 101.6 kg Intake: IV 33 Intake, IV Titration 6.855 Amount Milrinone-D5w Pmx 20 mg 6.855 In Dextrose/Water 1 100ml .bag @ 0.3 MCG/KG/MIN 9. 14 mls/hr IV .[id number] ALEXEY Rx#:[id number] Oral 940 Output: Urine 1500 2200 700 Estimated Blood Loss 1500 Other: Voiding Method Urinal # Voids 1 1 ABP, PAP, CO, CI - Last Documented Arterial Blood Pressure 88/47 Pulmonary Artery Pressure 50/32 Cardiac Output 7.3 Cardiac Index 7.3 - Exam GENERAL EXAM: Sedated obese 73-year-old white male comfortable in no apparent distress. Currently intubated, on mechanical ventilator HEAD: Normocephalic/atraumatic. EYES: Normal reaction of pupils, equal size. Conjunctiva pink, sclera white. NOSE: Clear with pink turbinates. MOUTH: Missing teeth THROAT: No erythema or exudates. NECK: No masses, no JVD, no thyroid enlargement, no adenopathy. CHEST: No chest wall deformity. Symmetrical expansion. Sternal incision is clean dry and intact, covered with a surgical dressing, 2 mediastinal and one left pleural chest tube with the small amount of sanguinous output. Epicardial AV pacemaker wires are present, connected to external pacemaker LUNGS: Equal air entry with coarse breath sounds, but no wheeze, rhonchi or dullness. CVS: Regular rate and rhythm, normal S1 and S2, no gallops, no murmurs, no rubs. Patient is currently being paced VVI epicardial wires, and a mode of AAI with a rate of 80 BPM ABDOMEN: Soft, nontender. No hepatosplenomegaly, normal bowel sounds, no guarding or rigidity. EXTREMITIES: No clubbing, no edema, no cyanosis, 2+ pulses and upper and lower extremities. Bilateral lower extremities are Hiren wrapped, SCDs are present MUSCULOSKELETAL: Muscle strength and tone normal. SPINE: No scoliosis or deformity SKIN: No rashes CENTRAL NERVOUS SYSTEM: Sedated. No focal deficits, tone is normal in all 4 extremities. PSYCHIATRIC: Able to assess sedated - Labs CBC & Chem 7: 08/17/18 15:40 08/17/18 15:40 Labs: Abnormal Lab Results - Last 24 Hours (Table) 08/16/18 08/16/18 08/17/18 Range/Units 13:55 21:20 05:29 RBC (4.30-5.90) m/uL Hgb (13.0-17.5) gm/dL Hct (39.0-53.0) % MCHC 30.6 L (31.0-37.0) g/dL Plt Count 133 L (150-450) k/uL Lymphocytes # 0.7 L (1.0-4.8) k/uL INR (<1.2) APTT (22.0-30.0) sec ABG pH (7.35-7.45) ABG pCO2 (35-45) mmHg ABG pO2 (83-108) mmHg ABG Total CO2 (19-24) mmol/L ABG O2 Saturation (94-97) % ABG Hematocrit (34.0-46.0) % ABG Potassium (3.4-4.5) mmol/L ABG Ionized Calcium (4.5-5.3) mg/dL ABG Glucose (75-99) mg/dL ABG Lactic Acid (0.5-1.6) mmol/L Hemoglobin (13.0-17.5) gm/dL Chloride (98-107) mmol/L BUN (9-20) mg/dL Glucose (74-99) mg/dL POC Glucose (mg/dL) 116 H (75-99) mg/dL Ionized Calcium Yudith (4.5-5.3) mg/dL AST (17-59) U/L Alkaline Phosphatase (38-126) U/L Total Protein (6.3-8.2) g/dL Albumin (3.5-5.0) g/dL Arterial Blood Potassium (3.4-4.5) mmol/L Arterial Blood Glucose (75-99) mg/dL Crossmatch See Detail 08/17/18 08/17/18 08/17/18 Range/Units 05:29 05:29 05:33 RBC (4.30-5.90) m/uL Hgb (13.0-17.5) gm/dL Hct (39.0-53.0) % MCHC (31.0-37.0) g/dL Plt Count (150-450) k/uL Lymphocytes # (1.0-4.8) k/uL INR (<1.2) APTT 49.9 H (22.0-30.0) sec ABG pH (7.35-7.45) ABG pCO2 (35-45) mmHg ABG pO2 (83-108) mmHg ABG Total CO2 (19-24) mmol/L ABG O2 Saturation (94-97) % ABG Hematocrit (34.0-46.0) % ABG Potassium (3.4-4.5) mmol/L ABG Ionized Calcium (4.5-5.3) mg/dL ABG Glucose (75-99) mg/dL ABG Lactic Acid (0.5-1.6) mmol/L Hemoglobin (13.0-17.5) gm/dL Chloride 108 H (98-107) mmol/L BUN 25 H (9-20) mg/dL Glucose 133 H (74-99) mg/dL POC Glucose (mg/dL) 128 H (75-99) mg/dL Ionized Calcium Yudith (4.5-5.3) mg/dL AST (17-59) U/L Alkaline Phosphatase (38-126) U/L Total Protein (6.3-8.2) g/dL Albumin (3.5-5.0) g/dL Arterial Blood Potassium (3.4-4.5) mmol/L Arterial Blood Glucose (75-99) mg/dL Crossmatch 08/17/18 08/17/18 08/17/18 Range/Units 06:41 08:54 10:11 RBC (4.30-5.90) m/uL Hgb (13.0-17.5) gm/dL Hct (39.0-53.0) % MCHC (31.0-37.0) g/dL Plt Count (150-450) k/uL Lymphocytes # (1.0-4.8) k/uL INR (<1.2) APTT (22.0-30.0) sec ABG pH 7.33 L 7.28 L (7.35-7.45) ABG pCO2 50 H (35-45) mmHg ABG pO2 320 H (83-108) mmHg ABG Total CO2 25 H 25 H (19-24) mmol/L ABG O2 Saturation 100.0 H (94-97) % ABG Hematocrit (34.0-46.0) % ABG Potassium 4.8 H 5.1 H (3.4-4.5) mmol/L ABG Ionized Calcium (4.5-5.3) mg/dL ABG Glucose 151 H 171 H (75-99) mg/dL ABG Lactic Acid (0.5-1.6) mmol/L Hemoglobin 12.5 L 11.7 L (13.0-17.5) gm/dL Chloride (98-107) mmol/L BUN (9-20) mg/dL Glucose (74-99) mg/dL POC Glucose (mg/dL) 134 H (75-99) mg/dL Ionized Calcium Yudith (4.5-5.3) mg/dL AST (17-59) U/L Alkaline Phosphatase (38-126) U/L Total Protein (6.3-8.2) g/dL Albumin (3.5-5.0) g/dL Arterial Blood Potassium 4.8 H 5.1 H (3.4-4.5) mmol/L Arterial Blood Glucose 151 H 171 H (75-99) mg/dL Crossmatch 08/17/18 08/17/18 08/17/18 Range/Units 11:01 11:40 12:20 RBC (4.30-5.90) m/uL Hgb (13.0-17.5) gm/dL Hct (39.0-53.0) % MCHC (31.0-37.0) g/dL Plt Count (150-450) k/uL Lymphocytes # (1.0-4.8) k/uL INR (<1.2) APTT (22.0-30.0) sec ABG pH (7.35-7.45) ABG pCO2 (35-45) mmHg ABG pO2 >420 H 297 H 373 H (83-108) mmHg ABG Total CO2 25 H 26 H 26 H (19-24) mmol/L ABG O2 Saturation 100.0 H 100.0 H 100.0 H (94-97) % ABG Hematocrit 26 L 24 L 23 L (34.0-46.0) % ABG Potassium 4.8 H 5.6 H 5.3 H (3.4-4.5) mmol/L ABG Ionized Calcium 4.2 L 4.2 L 4.2 L (4.5-5.3) mg/dL ABG Glucose 149 H 231 H 232 H (75-99) mg/dL ABG Lactic Acid (0.5-1.6) mmol/L Hemoglobin 8.5 L 7.7 L 7.6 L (13.0-17.5) gm/dL Chloride (98-107) mmol/L BUN (9-20) mg/dL Glucose (74-99) mg/dL POC Glucose (mg/dL) (75-99) mg/dL Ionized Calcium Yudith (4.5-5.3) mg/dL AST (17-59) U/L Alkaline Phosphatase (38-126) U/L Total Protein (6.3-8.2) g/dL Albumin (3.5-5.0) g/dL Arterial Blood Potassium 4.8 H 5.6 H 5.3 H (3.4-4.5) mmol/L Arterial Blood Glucose 149 H 231 H 232 H (75-99) mg/dL Crossmatch 08/17/18 08/17/18 08/17/18 Range/Units 12:58 14:05 15:33 RBC (4.30-5.90) m/uL Hgb (13.0-17.5) gm/dL Hct (39.0-53.0) % MCHC (31.0-37.0) g/dL Plt Count (150-450) k/uL Lymphocytes # (1.0-4.8) k/uL INR (<1.2) APTT (22.0-30.0) sec ABG pH 7.34 L (7.35-7.45) ABG pCO2 47 H (35-45) mmHg ABG pO2 >420 H 111 H (83-108) mmHg ABG Total CO2 25 H 26 H (19-24) mmol/L ABG O2 Saturation 100.0 H 98.7 H (94-97) % ABG Hematocrit 23 L 28 L (34.0-46.0) % ABG Potassium 5.0 H (3.4-4.5) mmol/L ABG Ionized Calcium 4.1 L (4.5-5.3) mg/dL ABG Glucose 194 H 155 H (75-99) mg/dL ABG Lactic Acid 1.7 H (0.5-1.6) mmol/L Hemoglobin 7.5 L 9.0 L (13.0-17.5) gm/dL Chloride (98-107) mmol/L BUN (9-20) mg/dL Glucose (74-99) mg/dL POC Glucose (mg/dL) 116 H (75-99) mg/dL Ionized Calcium Yudith (4.5-5.3) mg/dL AST (17-59) U/L Alkaline Phosphatase (38-126) U/L Total Protein (6.3-8.2) g/dL Albumin (3.5-5.0) g/dL Arterial Blood Potassium 5.0 H (3.4-4.5) mmol/L Arterial Blood Glucose 194 H 155 H (75-99) mg/dL Crossmatch 08/17/18 08/17/18 08/17/18 Range/Units 15:40 15:40 15:40 RBC 2.83 L (4.30-5.90) m/uL Hgb 8.5 L D (13.0-17.5) gm/dL Hct 26.3 L (39.0-53.0) % MCHC (31.0-37.0) g/dL Plt Count 101 L (150-450) k/uL Lymphocytes # 0.4 L (1.0-4.8) k/uL INR 1.2 H (<1.2) APTT 31.3 H (22.0-30.0) sec ABG pH (7.35-7.45) ABG pCO2 (35-45) mmHg ABG pO2 (83-108) mmHg ABG Total CO2 (19-24) mmol/L ABG O2 Saturation (94-97) % ABG Hematocrit (34.0-46.0) % ABG Potassium (3.4-4.5) mmol/L ABG Ionized Calcium (4.5-5.3) mg/dL ABG Glucose (75-99) mg/dL ABG Lactic Acid (0.5-1.6) mmol/L Hemoglobin (13.0-17.5) gm/dL Chloride 110 H (98-107) mmol/L BUN 21 H (9-20) mg/dL Glucose 105 H (74-99) mg/dL POC Glucose (mg/dL) (75-99) mg/dL Ionized Calcium Yudith 5.7 H (4.5-5.3) mg/dL AST 65 H (17-59) U/L Alkaline Phosphatase 28 L (38-126) U/L Total Protein 4.9 L (6.3-8.2) g/dL Albumin 3.1 L (3.5-5.0) g/dL Arterial Blood Potassium (3.4-4.5) mmol/L Arterial Blood Glucose (75-99) mg/dL Crossmatch 08/17/18 Range/Units 16:07 RBC (4.30-5.90) m/uL Hgb (13.0-17.5) gm/dL Hct (39.0-53.0) % MCHC (31.0-37.0) g/dL Plt Count (150-450) k/uL Lymphocytes # (1.0-4.8) k/uL INR (<1.2) APTT (22.0-30.0) sec ABG pH 7.25 L (7.35-7.45) ABG pCO2 53 H (35-45) mmHg ABG pO2 79 L (83-108) mmHg ABG Total CO2 25 H (19-24) mmol/L ABG O2 Saturation (94-97) % ABG Hematocrit (34.0-46.0) % ABG Potassium (3.4-4.5) mmol/L ABG Ionized Calcium (4.5-5.3) mg/dL ABG Glucose (75-99) mg/dL ABG Lactic Acid (0.5-1.6) mmol/L Hemoglobin (13.0-17.5) gm/dL Chloride (98-107) mmol/L BUN (9-20) mg/dL Glucose (74-99) mg/dL POC Glucose (mg/dL) (75-99) mg/dL Ionized Calcium Yudith (4.5-5.3) mg/dL AST (17-59) U/L Alkaline Phosphatase (38-126) U/L Total Protein (6.3-8.2) g/dL Albumin (3.5-5.0) g/dL Arterial Blood Potassium (3.4-4.5) mmol/L Arterial Blood Glucose (75-99) mg/dL Crossmatch Microbiology - Last 24 Hours (Table) 08/14/18 Unknown Nasal Screen MRSA/MSSA - Final Nasal Swab Assessment and Plan Plan: Assessment: #1. Acute non-ST elevated myocardial infarction. #2. Multivessel coronary artery disease, involving 70% left main stenosis, 70% LAD stenosis with thrombus, age 85% OM stenosis, status post three-vessel coronary artery bypass grafting with CHAHAL to LAD, SVG to the PDA and circumflex , postop day 0 #3. Routine postoperative ventilator management #4. Acute blood loss anemia, an expected outcome of open heart surgery #5. Ischemic cardiomyopathy, echocardiogram showed moderate global hypokinesis of LV, and severely impaired left ventricular systolic function with EF between 20-25% #6. Diabetes mellitus type 2, insulin-dependent #7. COPD, not on home oxygen, currently stable #8. Obesity #9. History of right nephrectomy, and history of CKD #10. History of nicotine dependence, in remission. Patient quit smoking 45 years ago, but prior to that smoked up to 3 packs a day for 30 years #11. Hypertension #12. History of BPH, on Flomax Plan: Postop blood gases, chest x-ray have been reviewed. Patient was examined. Vent settings were made accordingly the blood gases, IMV rate of 18, tidal volume of 500, FiO2 of 50%, PEEP of 10. Continue close hemodynamic monitoring, chest tube output monitoring, heart rate and rhythm, urine output. Nebulized bronchodilators. We'll proceed with weaning and extubation as soon as the patient starts waking up. Daily chest x-rays and labs. Incentive spirometry to the bedside postextubation. I performed a history & physical examination of the patient and discussed their management with my nurse practitioner, Randi Root. I reviewed the nurse practitioner's note and agree with the documented findings and plan of care. Lung sounds are positive for coarse breath sounds. The findings and the impression was discussed with the patient. I attest to the documentation by the nurse practitioner. Time with Patient: Greater than 30
[2018-08-17 16:58] LABS: Glucose,Whole Blood 104 mg/dL (75-99)
[2018-08-17 16:59] LABS: ABG Base Excess -3.3 mmol/L; ABG HCO3 23 mmol/L (21-25); ABG Oxygen Saturation 95.4 % (94-97); ABG PCO2 48 mmHg (35-45); ABG PO2 78 mmHg (83-108); ABG TCO2 25 mmol/L (19-24)
[2018-08-17] MEDS: IPRATROPIUM-ALBUTEROL 3 ML NEB INHALATION SCH ×3 (17:09→19:34)
[2018-08-17] MEDS: ACETAMINOPHEN IV (For NPO) 1,000 MG in EMPTY BAG 1 BAG IVPB SCH ×2 (17:44→23:15)
[2018-08-17 18:02] LABS: Glucose,Whole Blood 123 mg/dL (75-99)
[2018-08-17] MEDS: CLEVIDIPINE BUTYRATE 25 MG in EMPTY BAG 1 BAG IV SCH (18:18)
[2018-08-17 18:57] LABS: Basophils % (A) 0 %; Eosinophils % (A) 0 %; HCT 25.4 % (39.0-53.0); Hypochromasia Slight; Lymphocytes # (A) 0.3 k/uL (1.0-4.8); Lymphocytes % (A) 5 %; MCH 28.8 pg (25.0-35.0); MCHC 31.5 g/dL (31.0-37.0); MCV 91.4 fL (80.0-100.0); Mean Platelet Volume 7.6; Monocytes # (A) 0.4 k/uL (0-1.0); Monocytes % (A) 6 %; Neutrophils # (A) 5.1 k/uL (1.3-7.7); Neutrophils % (A) 88 %; RBC 2.78 m/uL (4.30-5.90); WBC 5.9 k/uL (3.8-10.6)
[2018-08-17 19:21] LABS: Glucose,Whole Blood 141 mg/dL (75-99)
[2018-08-17] MEDS: INSULIN REGULAR 100 UNIT in SODIUM CHLORIDE 0.9% 100 ML IV SCH (19:21)
[2018-08-17 19:57] LABS: Large Platelets Present; Platelet Count 93 k/uL (150-450); Polychromasia Present; Toxic Vacuolation Present
[2018-08-17 20:03] LABS: ABG Base Excess -4.5 mmol/L; ABG HCO3 22 mmol/L (21-25); ABG PCO2 42 mmHg (35-45); ABG PH 7.32 (7.35-7.45); ABG PO2 86 mmHg (83-108); ABG TCO2 23 mmol/L (19-24)
[2018-08-17 20:10] LABS: Glucose,Whole Blood 152 mg/dL (75-99)
[2018-08-17] MEDS: TAMSULOSIN 0.4 MG CAP.ER.24H PO SCH (20:45)
--- NOTE | 2018-08-17 20:57 | OP ---
OPERATIVE REPORT DATE OF SURGERY: 08/17/2018. PREOPERATIVE DIAGNOSIS: Non ST elevation myocardial infarction. POSTOPERATIVE DIAGNOSIS: Non ST elevation myocardial infarction. PROCEDURE: 1. Coronary artery bypass grafting x3 vessels (left internal mammary artery to left anterior descending artery, saphenous vein graft to obtuse marginal artery, saphenous vein graft to posterior descending artery). 2. Endoscopic vein harvest left greater saphenous vein. 3. Epiaortic ultrasound. 4. Transesophageal echocardiogram. 5. Closure of sternum using titanium plates and [place] cable system. SURGEON: Josep Virgen MD ASSISTIVE TECHNOLOGY TRAINER: 1. AJITH Wright. 2. Jamarcus Montalvo N.P. ANESTHESIA: General. SPECIMENS: None. COMPLICATIONS: None. INDICATIONS: The patient is a 73-year-old male with a history of multiple medical problems including COPD, diabetes mellitus, hypertension, morbid obesity, tobacco use, and renal insufficiency status post nephrectomy who was admitted to the hospital with chest pain. Workup revealed Q -waves on his EKG and he was diagnosed with a non ST elevation myocardial infarction. A cardiac catheterization was performed which revealed multivessel coronary disease including an ejection fraction of about 20% and possible thrombus in his LAD. He was treated with anti-platelet agents and medical management for a few days. His troponin began trending back down to normal and he had no further chest pain. Coronary artery bypass was recommended. The risks, benefits, and alternatives of this procedure were discussed with the patient. All his questions were answered. Consent was obtained. FINDINGS: The left internal mammary artery was a good conduit with brisk flow. Saphenous vein was a good conduit. The LAD measured 1.5 mm. The PDA measured 1.3 mm. The obtuse marginal artery measured 1.3 mm. Of note, the OM was intramyocardial in position. I did search for a second OM branch, but could not locate it as it too was likely in an intramyocardial location. PROCEDURE IN DETAIL: The patient was taken to the operating room and placed supine on the operating table. A right femoral arterial line was placed to assist with hemodynamic monitoring. After induction of anesthesia, he was prepped and draped in the usual sterile fashion. Preoperative BC revealed and EF of about 25-30% along with mild, centrally directed mitral regurgitation. A median sternotomy was performed. The left internal mammary artery was harvested in standard fashion taking care to clip all branches. Intravenous heparin was administered. The vessel was transected distally revealing brisk flow. Simultaneously greater saphenous vein was harvested from the left lower extremity. All branches were tied. Both the mammary artery and vein were good conduits. A pericardial cradle was created. Of note, the patient had an enlarged heart which seemed to be rotated into the right chest. The ascending aorta was palpated. There was no significant plaque noted. Epiaortic ultrasound was then performed on the ascending aorta. Again no calcific plaque was identified. An arterial cannula placed in the distal ascending aorta. A venous cannula was placed through the right atrial appendage and directed into the IVC. Both antegrade and retrograde catheters were replaced as well. The patient was then placed on cardiopulmonary bypass with good decompression of the heart. The aortic cross-clamp was applied. Cardioplegia was delivered in both antegrade and retrograde fashion to achieve arrest of the heart. Of note, cardioplegia was delivered every 15 to 20 minutes while the patient remained under crossclamp. We began by inspecting the lateral wall. The entire wall was muscular and I could not identify any OM branches. I began dissecting in multiple areas and did find the OM1. It was dissected free. A small arteriotomy was created. This vessel accepted a 1 mm probe. Using saphenous vein in a reverse fashion, an end-to-side anastomosis was created. This was performed using a running 7-0 Prolene suture. The graft was hemostatic and had good flow. Despite additional dissection, I could not identify the 2nd OM branch which was seen on the cardiac catheterization. I then inspected the inferior wall. A branch which appeared to be the PDA was identified. A small arteriotomy was created. This vessel accepted a 1 mm probe. Using saphenous vein in a reverse fashion, an end-to-side anastomosis was created. This was performed using a running 7-0 Prolene suture. The graft was hemostatic and had good flow. Finally, attention was turned to the LAD. It was dissected free. At its mid portion a small arteriotomy was created. This vessel accepted a 1.5 mm probe. Using the left internal mammary artery, an end-to-side anastomosis was created. This was performed using a running 8-0 Prolene suture. The graft was hemostatic. The mammary pedicle was then tacked down to the anterior surface of the heart. Attention was then turned to the proximal anastomoses. These were performed in an end- to-side fashion using running 6-0 Prolene suture. One liter of warm blood was delivered in retrograde fashion. Both lidocaine and magnesium were administered as well. The cross- clamp was removed. The grafts were de-aired in the standard fashion. All distal anastomoses were inspected and appeared to be hemostatic. The retrograde catheter was removed. Temporary atrial and ventricular pacing wires were placed and brought through the skin. The patient was started on low-dose Levophed and Milrinone. The patient was then weaned off cardioplegia bypass. He without difficulty. Followup transesophageal echocardiogram confirmed an ejection fraction about 30% with no change in the mitral regurgitation. His cardiac index was noted to be 2.5. Protamine was administered. There were no adverse reactions. The remaining cannulas were then removed. All surgical sites were inspected and appeared to be hemostatic. The mediastinum was copiously irrigated with warm saline solution. Soft tissues were reapproximated over the ascending aorta as well as over the apex of the heart. Straight 32-[place] chest tubes were placed and directed into the left pleural space as well as into the mediastinum. These were secured to the skin. Due to the patient's morbid obesity, I elected to close the sternum using titanium plates and the [place] cable system. One "V" plate and 2 "X" plates were used as well as 2 cable wires. #16 screws were used as well. At completion of the closure, the sternum was well aligned. The soft tissues were then reapproximated in layers. Sterile dressing was applied. The patient appeared to tolerate the procedure well. There were no immediate complications. The patient did return to the ICU in critical but stable condition on Levophed and Milrinone. MMODL / IJN: [id number] / [facility] HOSPITALTrixie
[2018-08-17 21:03] LABS: Glucose,Whole Blood 157 mg/dL (75-99)
[2018-08-17] MEDS: HEPARIN SODIUM,PORCINE 5,000 UNIT/ML 1 ML VIAL SQ SCH (21:47)
[2018-08-17 22:00] LABS: Glucose,Whole Blood 166 mg/dL (75-99)
[2018-08-17 22:13] LABS: Basophils % (A) 0 %; Eosinophils % (A) 0 %; HCT 25.7 % (39.0-53.0); HGB 8.1 gm/dL (13.0-17.5); Hypochromasia Slight; Lymphocytes # (A) 0.4 k/uL (1.0-4.8); Lymphocytes % (A) 6 %; MCH 29.2 pg (25.0-35.0); MCHC 31.7 g/dL (31.0-37.0); MCV 92.4 fL (80.0-100.0); Mean Platelet Volume 8.2; Monocytes # (A) 0.3 k/uL (0-1.0); Monocytes % (A) 4 %; Neutrophils # (A) 6.4 k/uL (1.3-7.7); Neutrophils % (A) 90 %; RBC 2.78 m/uL (4.30-5.90); WBC 7.1 k/uL (3.8-10.6)
[2018-08-17 22:14] LABS: Platelet Count 91 k/uL (150-450)
[2018-08-17 22:31] LABS: Calcium 8.8 mg/dL (8.4-10.2); Magnesium 2.3 mg/dL (1.6-2.3); Potassium 5.8 mmol/L (3.5-5.1)
[2018-08-17 23:03] LABS: Glucose,Whole Blood 144 mg/dL (75-99)
[2018-08-17] MEDS ORDERED: DEXTROSE 50%-WATER 50 ML SYRINGE IVP STA (23:03)
[2018-08-17] MEDS ORDERED: INSULIN REGULAR 100 UNIT/ML VIAL IV ONE (23:03)
[2018-08-18 00:47] LABS: Glucose,Whole Blood 163 mg/dL (75-99)
[2018-08-18 01:04] LABS: Glucose,Whole Blood 138 mg/dL (75-99)
[2018-08-18] MEDS: INSULIN REGULAR 100 UNIT in SODIUM CHLORIDE 0.9% 100 ML IV SCH (01:04)
[2018-08-18 02:06] LABS: Glucose,Whole Blood 114 mg/dL (75-99)
[2018-08-18] MEDS: MILRINONE-D5W PMX 20 MG in DEXTROSE/WATER 1 100ML.BAG IV SCH (02:59)
[2018-08-18 03:03] LABS: Glucose,Whole Blood 123 mg/dL (75-99)
[2018-08-18] MEDS: NOREPINEPHRINE 16 MG in SODIUM CHLORIDE 0.9% 250 ML IV SCH (03:46)
[2018-08-18 04:07] LABS: Glucose,Whole Blood 113 mg/dL (75-99)
[2018-08-18 04:20] LABS: Basophils % (A) 0 %; Eosinophils % (A) 0 %; HCT 24.7 % (39.0-53.0); HGB 7.9 gm/dL (13.0-17.5); Hypochromasia Slight; Lymphocytes # (A) 0.4 k/uL (1.0-4.8); Lymphocytes % (A) 5 %; MCH 28.9 pg (25.0-35.0); MCHC 31.9 g/dL (31.0-37.0); MCV 90.4 fL (80.0-100.0); Mean Platelet Volume 10.1; Monocytes # (A) 0.4 k/uL (0-1.0); Monocytes % (A) 5 %; Neutrophils # (A) 6.6 k/uL (1.3-7.7); Neutrophils % (A) 89 %; Platelet Count 105 k/uL (150-450); RBC 2.73 m/uL (4.30-5.90); RDW 15.1 % (11.5-15.5); WBC 7.5 k/uL (3.8-10.6)
[2018-08-18 04:26] LABS: Ionized Calcium 5.2 mg/dL (4.5-5.3)
[2018-08-18 04:29] LABS: INR 1.1 (<1.2); Partial Thromboplastin Time 34.8 sec (22.0-30.0); Prothrombin Time 11.1 sec (9.0-12.0)
[2018-08-18 04:34] LABS: Albumin 3.5 g/dL (3.5-5.0); Calcium 8.5 mg/dL (8.4-10.2); Magnesium 2.2 mg/dL (1.6-2.3); Potassium 4.9 mmol/L (3.5-5.1); Total Bilirubin 0.6 mg/dL (0.2-1.3); Total Protein 5.1 g/dL (6.3-8.2)
[2018-08-18 05:03] LABS: Glucose,Whole Blood 128 mg/dL (75-99)
[2018-08-18 06:19] LABS: Glucose,Whole Blood 120 mg/dL (75-99)
[2018-08-18] MEDS: ACETAMINOPHEN IV (For NPO) 1,000 MG in EMPTY BAG 1 BAG IVPB SCH ×3 (06:43→19:25)
[2018-08-18 07:05] LABS: Glucose,Whole Blood 104 mg/dL (75-99)
--- NOTE | 2018-08-18 07:25 | XR ---
EXAMINATION TYPE: XR chest 1V portable DATE OF EXAM: 08/18/2018 COMPARISON: Prior chest x-ray 08/17/2018 HISTORY: Postop cardiac surgery TECHNIQUE: Single frontal view of the chest is obtained. FINDINGS: Patient is rotated. Heart remains enlarged. Endotracheal tube and NG tube have been remove d. Right jugular central venous sheath remains in place, coaxial [place]-Eliazar catheter is overlying the pulmonary artery and its tip. Left-sided chest tube, median sternal drains remain in place. No sizabl e pneumothorax or pleural effusion is evident. Pulmonary vascularity and latia show similar appearance . Perihilar atelectatic changes suspected. Mediastinal widening is stable. IMPRESSION: Interval extubation.
[2018-08-18 07:58] LABS: Glucose,Whole Blood 122 mg/dL (75-99)
[2018-08-18] MEDS: ASPIRIN 325 MG TAB PO SCH (08:14)
[2018-08-18] MEDS: ATORVASTATIN 40 MG TAB PO SCH (08:14)
[2018-08-18] MEDS: CLOPIDOGREL 75 MG TAB PO SCH (08:14)
[2018-08-18] MEDS: ASCORBIC ACID 500 MG TAB PO SCH ×2 (08:15→16:46)
[2018-08-18] MEDS: FERROUS SULFATE 325 MG TAB PO SCH ×2 (08:15→16:46)
[2018-08-18] MEDS ORDERED: FUROSEMIDE 10 MG/ML 2 ML VIAL IV ONE (08:22)
[2018-08-18] MEDS: METOPROLOL TARTRATE 12.5 MG TAB PO SCH ×2 (08:34→21:05)
[2018-08-18] MEDS: IPRATROPIUM-ALBUTEROL 3 ML NEB INHALATION SCH ×4 (08:34→19:40)
[2018-08-18] MEDS: ceFAZolin IN SWFI 2 GM/20 ML SYRINGE IVP SCH (08:35)
[2018-08-18] MEDS: HEPARIN SODIUM,PORCINE 5,000 UNIT/ML 1 ML VIAL SQ SCH ×3 (08:35→23:04)
[2018-08-18] MEDS ORDERED: PANTOPRAZOLE 40 MG/10 ML VIAL IVP SCH (09:00)
--- NOTE | 2018-08-18 09:03 | P.PN ---
Subjective Progress Note Date: 08/18/18 Principal diagnosis: Non-ST elevation myocardial infarction, impaired left ventricular systolic function with EF 20-25%. History of hypertension, hypertriglyceridemia insulin- dependent diabetes mellitus with preoperative hemoglobin A1c 7.1%, COPD with preoperative FEV1 87% of predicted, previous tobacco dependence, prostate cancer with radiation, right nephrectomy, obesity, BPH. POD #1 urgent coronary artery bypass grafting 3 vessels, left internal mammary artery to left anterior descending artery, reverse saphenous vein graft to obtuse marginal artery, reverse saphenous vein graft to posterior descending artery, endoscopic vein harvest of the left greater saphenous vein, epi-aortic ultrasound, intraoperative transesophageal echocardiogram, closure of sternum using titanium plates and [place] cable system. The patient is currently sitting up in a recliner in no acute distress. Was successfully extubated last night at 2020 to 8 L high flow nasal cannula. Currently hemodynamically stable on IV Primacor, low dose Levophed. States pain is controlled on current medication regimen. Denies significant shortness of breath. Objective - Vital Signs Vital signs: Vital Signs Temp 98.4 F 08/18/18 04:00 Pulse 80 08/18/18 07:01 Resp 21 08/18/18 07:01 BP 102/52 08/18/18 00:15 Pulse Ox 95 08/18/18 07:01 Intake & Output 08/17/18 08/18/18 08/18/18 18:59 06:59 18:59 Intake Total 815.599 5488.501 60.661 Output Total 2455 865 95 Balance -2152.837 671.501 -34.339 Weight 112.6 kg Intake: IV 288.0 1276.0 50.5 ACETAMINOPHEN IV (For NPO 100 ) 1,000 mg In Empty Bag 1 bag @ 400 mls/hr IVPB Q6HR [facility] Rx#:[id number] Albumin Human 5% 250 ml 500 In Empty Bag 1 bag @ 250 mls/hr IVPB Q1HR PRN Rx#: [id number] Co/CI 40 60 Lactated Ringers 1,000 ml 200 490 40 @ 50 mls/hr IV .Q20H [facility] Rx#:[id number] Nitroglycerin-D5w Pmx 50 6.0 18.0 1.5 mg In Dextrose/Water 1 250ml.bag @ 5 MCG/MIN 1.5 mls/hr IV .Q24H [facility] Rx#: [id number] pressure bags 9 108 9 Intake, IV Titration 14.163 260.501 10.161 Amount Dexmedetomidine/0.9% NaCl 92.752 (Pmx) 400 mcg In Empty Bag 1 bag @ Titrate IV . Q0M [facility] Rx#:[id number] Insulin Regular 100 unit 34.669 1.974 In Sodium Chloride 0.9% 100 ml @ Per Protocol IV .Q0M [facility] Rx#:[id number] Insulin Regular 100 unit 0.433 In Sodium Chloride 0.9% 100 ml @ Titrate IV .Q0M [facility] Rx#:[id number] Milrinone-D5w Pmx 20 mg 6.855 54.993 In Dextrose/Water 1 100ml .bag @ 0.3 MCG/KG/MIN 9. 14 mls/hr IV .A36W20M [facility] Rx#:[id number] Norepinephrine 16 mg In 7.525 8.187 Sodium Chloride 0.9% 250 ml @ Titrate IV .Q0M [facility] Rx#:[id number] Norepinephrine 4 mg In 6.875 70.562 Sodium Chloride 0.9% 250 ml @ Titrate IV .Q0M [facility] Rx#:[id number] Output: Chest Tube Drainage 100 380 50 Left Pleural/Mediastinal 100 380 50 Urine 855 485 45 Estimated Blood Loss 1500 Other: Voiding Method Indwelling Catheter Indwelling Catheter ABP, PAP, CO, CI - Last Documented Arterial Blood Pressure 104/52 Pulmonary Artery Pressure 38/13 Cardiac Output 6.8 Cardiac Index 3.3 - Constitutional General appearance: Present: cooperative, no acute distress, obese - Respiratory Details: Lungs sounds diminished bilaterally. Respirations even, nonlabored. Currently on 8 L high flow nasal cannula with oxygen saturation 93%. Only able to achieve 500 mL on his incentive spirometry. Mediastinal/left pleural chest tube to continuous wall suction, 200 mL serosanguineous drainage overnight, 500 mL since surgery, no air leaks present. - Cardiovascular Details: S1, S2 present. Regular rate and rhythm, atrially paced on telemetry with underlying rhythm sinus rhythm to sinus arrhythmia. A/V epicardial pacemaker wires present, connected to generator, AAI mode with set rate 80 bpm. Palpable peripheral pulses bilaterally. Trace generalized edema present. No calf pain or tenderness noted. Right internal jugular [place], right radial arterial line present. Last CO/CI 6.8/3.3 on 4 mcg/min of levo and 0.1 mcg/kg/min Primacor. Heart hugger in place with patient demonstrating appropriate use. Antiembolism stockings, SCDs present. - Gastrointestinal Gastrointestinal Comment(s): Abdomen soft, nontender, nondistended. Hypoactive bowel sounds present 4 quadrants. Tolerating clear liquids. Positive flatus, negative bowel movement. - Genitourinary Genitourinary Comment(s): Suero present draining clear, yellow urine. Output 35-40 mL/h overnight. - Integumentary Integumentary Comment(s): Skin is warm and dry with evidence of good perfusion. Anterior chest incision well approximated and covered with dry intact dressing. Left lower extremity EVH site well approximated, ecchymosis present, expected. - Neurologic Neurologic: Present: CNII-XII intact - Musculoskeletal Musculoskeletal: Present: strength equal bilaterally - Psychiatric Psychiatric: Present: A&O x's 3, appropriate affect, intact judgment & insight - Allied health notes Allied health notes reviewed: nursing - Labs CBC & Chem 7: 08/18/18 04:00 08/18/18 04:00 Labs: Abnormal Lab Results - Last 24 Hours (Table) 08/16/18 08/17/18 08/17/18 Range/Units 13:55 08:54 10:11 RBC (4.30-5.90) m/uL Hgb (13.0-17.5) gm/dL Hct (39.0-53.0) % Plt Count (150-450) k/uL Lymphocytes # (1.0-4.8) k/uL INR (<1.2) APTT (22.0-30.0) sec ABG pH 7.33 L 7.28 L (7.35-7.45) ABG pCO2 50 H (35-45) mmHg ABG pO2 320 H (83-108) mmHg ABG Total CO2 25 H 25 H (19-24) mmol/L ABG O2 Saturation 100.0 H (94-97) % ABG Hematocrit (34.0-46.0) % ABG Potassium 4.8 H 5.1 H (3.4-4.5) mmol/L ABG Ionized Calcium (4.5-5.3) mg/dL ABG Glucose 151 H 171 H (75-99) mg/dL ABG Lactic Acid (0.5-1.6) mmol/L Hemoglobin 12.5 L 11.7 L (13.0-17.5) gm/dL Potassium (3.5-5.1) mmol/L Chloride (98-107) mmol/L BUN (9-20) mg/dL Creatinine (0.66-1.25) mg/dL Glucose (74-99) mg/dL POC Glucose (mg/dL) (75-99) mg/dL Ionized Calcium Yudith (4.5-5.3) mg/dL AST (17-59) U/L Alkaline Phosphatase (38-126) U/L Total Protein (6.3-8.2) g/dL Albumin (3.5-5.0) g/dL Arterial Blood Potassium 4.8 H 5.1 H (3.4-4.5) mmol/L Arterial Blood Glucose 151 H 171 H (75-99) mg/dL Crossmatch See Detail 08/17/18 08/17/18 08/17/18 Range/Units 11:01 11:40 12:20 RBC (4.30-5.90) m/uL Hgb (13.0-17.5) gm/dL Hct (39.0-53.0) % Plt Count (150-450) k/uL Lymphocytes # (1.0-4.8) k/uL INR (<1.2) APTT (22.0-30.0) sec ABG pH (7.35-7.45) ABG pCO2 (35-45) mmHg ABG pO2 >420 H 297 H 373 H (83-108) mmHg ABG Total CO2 25 H 26 H 26 H (19-24) mmol/L ABG O2 Saturation 100.0 H 100.0 H 100.0 H (94-97) % ABG Hematocrit 26 L 24 L 23 L (34.0-46.0) % ABG Potassium 4.8 H 5.6 H 5.3 H (3.4-4.5) mmol/L ABG Ionized Calcium 4.2 L 4.2 L 4.2 L (4.5-5.3) mg/dL ABG Glucose 149 H 231 H 232 H (75-99) mg/dL ABG Lactic Acid (0.5-1.6) mmol/L Hemoglobin 8.5 L 7.7 L 7.6 L (13.0-17.5) gm/dL Potassium (3.5-5.1) mmol/L Chloride (98-107) mmol/L BUN (9-20) mg/dL Creatinine (0.66-1.25) mg/dL Glucose (74-99) mg/dL POC Glucose (mg/dL) (75-99) mg/dL Ionized Calcium Yudith (4.5-5.3) mg/dL AST (17-59) U/L Alkaline Phosphatase (38-126) U/L Total Protein (6.3-8.2) g/dL Albumin (3.5-5.0) g/dL Arterial Blood Potassium 4.8 H 5.6 H 5.3 H (3.4-4.5) mmol/L Arterial Blood Glucose 149 H 231 H 232 H (75-99) mg/dL Crossmatch 08/17/18 08/17/18 08/17/18 Range/Units 12:58 14:05 15:33 RBC (4.30-5.90) m/uL Hgb (13.0-17.5) gm/dL Hct (39.0-53.0) % Plt Count (150-450) k/uL Lymphocytes # (1.0-4.8) k/uL INR (<1.2) APTT (22.0-30.0) sec ABG pH 7.34 L (7.35-7.45) ABG pCO2 47 H (35-45) mmHg ABG pO2 >420 H 111 H (83-108) mmHg ABG Total CO2 25 H 26 H (19-24) mmol/L ABG O2 Saturation 100.0 H 98.7 H (94-97) % ABG Hematocrit 23 L 28 L (34.0-46.0) % ABG Potassium 5.0 H (3.4-4.5) mmol/L ABG Ionized Calcium 4.1 L (4.5-5.3) mg/dL ABG Glucose 194 H 155 H (75-99) mg/dL ABG Lactic Acid 1.7 H (0.5-1.6) mmol/L Hemoglobin 7.5 L 9.0 L (13.0-17.5) gm/dL Potassium (3.5-5.1) mmol/L Chloride (98-107) mmol/L BUN (9-20) mg/dL Creatinine (0.66-1.25) mg/dL Glucose (74-99) mg/dL POC Glucose (mg/dL) 116 H (75-99) mg/dL Ionized Calcium Yudith (4.5-5.3) mg/dL AST (17-59) U/L Alkaline Phosphatase (38-126) U/L Total Protein (6.3-8.2) g/dL Albumin (3.5-5.0) g/dL Arterial Blood Potassium 5.0 H (3.4-4.5) mmol/L Arterial Blood Glucose 194 H 155 H (75-99) mg/dL Crossmatch 08/17/18 08/17/18 08/17/18 Range/Units 15:40 15:40 15:40 RBC 2.83 L (4.30-5.90) m/uL Hgb 8.5 L D (13.0-17.5) gm/dL Hct 26.3 L (39.0-53.0) % Plt Count 101 L (150-450) k/uL Lymphocytes # 0.4 L (1.0-4.8) k/uL INR 1.2 H (<1.2) APTT 31.3 H (22.0-30.0) sec ABG pH (7.35-7.45) ABG pCO2 (35-45) mmHg ABG pO2 (83-108) mmHg ABG Total CO2 (19-24) mmol/L ABG O2 Saturation (94-97) % ABG Hematocrit (34.0-46.0) % ABG Potassium (3.4-4.5) mmol/L ABG Ionized Calcium (4.5-5.3) mg/dL ABG Glucose (75-99) mg/dL ABG Lactic Acid (0.5-1.6) mmol/L Hemoglobin (13.0-17.5) gm/dL Potassium (3.5-5.1) mmol/L Chloride 110 H (98-107) mmol/L BUN 21 H (9-20) mg/dL Creatinine (0.66-1.25) mg/dL Glucose 105 H (74-99) mg/dL POC Glucose (mg/dL) (75-99) mg/dL Ionized Calcium Yudith 5.7 H (4.5-5.3) mg/dL AST 65 H (17-59) U/L Alkaline Phosphatase 28 L (38-126) U/L Total Protein 4.9 L (6.3-8.2) g/dL Albumin 3.1 L (3.5-5.0) g/dL Arterial Blood Potassium (3.4-4.5) mmol/L Arterial Blood Glucose (75-99) mg/dL Crossmatch 08/17/18 08/17/18 08/17/18 Range/Units 16:07 16:07 16:43 RBC (4.30-5.90) m/uL Hgb (13.0-17.5) gm/dL Hct (39.0-53.0) % Plt Count (150-450) k/uL Lymphocytes # (1.0-4.8) k/uL INR (<1.2) APTT (22.0-30.0) sec ABG pH 7.25 L 7.30 L (7.35-7.45) ABG pCO2 53 H 48 H (35-45) mmHg ABG pO2 79 L 78 L (83-108) mmHg ABG Total CO2 25 H 25 H (19-24) mmol/L ABG O2 Saturation (94-97) % ABG Hematocrit (34.0-46.0) % ABG Potassium (3.4-4.5) mmol/L ABG Ionized Calcium (4.5-5.3) mg/dL ABG Glucose (75-99) mg/dL ABG Lactic Acid (0.5-1.6) mmol/L Hemoglobin (13.0-17.5) gm/dL Potassium (3.5-5.1) mmol/L Chloride (98-107) mmol/L BUN (9-20) mg/dL Creatinine (0.66-1.25) mg/dL Glucose (74-99) mg/dL POC Glucose (mg/dL) 115 H (75-99) mg/dL Ionized Calcium Yudith (4.5-5.3) mg/dL AST (17-59) U/L Alkaline Phosphatase (38-126) U/L Total Protein (6.3-8.2) g/dL Albumin (3.5-5.0) g/dL Arterial Blood Potassium (3.4-4.5) mmol/L Arterial Blood Glucose (75-99) mg/dL Crossmatch 08/17/18 08/17/18 08/17/18 Range/Units 16:57 18:00 18:42 RBC 2.78 L (4.30-5.90) m/uL Hgb 8.0 L (13.0-17.5) gm/dL Hct 25.4 L (39.0-53.0) % Plt Count 93 L (150-450) k/uL Lymphocytes # 0.3 L (1.0-4.8) k/uL INR (<1.2) APTT (22.0-30.0) sec ABG pH (7.35-7.45) ABG pCO2 (35-45) mmHg ABG pO2 (83-108) mmHg ABG Total CO2 (19-24) mmol/L ABG O2 Saturation (94-97) % ABG Hematocrit (34.0-46.0) % ABG Potassium (3.4-4.5) mmol/L ABG Ionized Calcium (4.5-5.3) mg/dL ABG Glucose (75-99) mg/dL ABG Lactic Acid (0.5-1.6) mmol/L Hemoglobin (13.0-17.5) gm/dL Potassium (3.5-5.1) mmol/L Chloride (98-107) mmol/L BUN (9-20) mg/dL Creatinine (0.66-1.25) mg/dL Glucose (74-99) mg/dL POC Glucose (mg/dL) 104 H 123 H (75-99) mg/dL Ionized Calcium Yudith (4.5-5.3) mg/dL AST (17-59) U/L Alkaline Phosphatase (38-126) U/L Total Protein (6.3-8.2) g/dL Albumin (3.5-5.0) g/dL Arterial Blood Potassium (3.4-4.5) mmol/L Arterial Blood Glucose (75-99) mg/dL Crossmatch 09/17/18 09/17/18 09/17/18 Range/Units 19:20 19:59 20:08 RBC (4.30-5.90) m/uL Hgb (13.0-17.5) gm/dL Hct (39.0-53.0) % Plt Count (150-450) k/uL Lymphocytes # (1.0-4.8) k/uL INR (<1.2) APTT (22.0-30.0) sec ABG pH 7.32 L (7.35-7.45) ABG pCO2 (35-45) mmHg ABG pO2 (83-108) mmHg ABG Total CO2 (19-24) mmol/L ABG O2 Saturation (94-97) % ABG Hematocrit (34.0-46.0) % ABG Potassium (3.4-4.5) mmol/L ABG Ionized Calcium (4.5-5.3) mg/dL ABG Glucose (75-99) mg/dL ABG Lactic Acid (0.5-1.6) mmol/L Hemoglobin (13.0-17.5) gm/dL Potassium (3.5-5.1) mmol/L Chloride (98-107) mmol/L BUN (9-20) mg/dL Creatinine (0.66-1.25) mg/dL Glucose (74-99) mg/dL POC Glucose (mg/dL) 141 H 152 H (75-99) mg/dL Ionized Calcium Yudith (4.5-5.3) mg/dL AST (17-59) U/L Alkaline Phosphatase (38-126) U/L Total Protein (6.3-8.2) g/dL Albumin (3.5-5.0) g/dL Arterial Blood Potassium (3.4-4.5) mmol/L Arterial Blood Glucose (75-99) mg/dL Crossmatch 08/17/18 08/17/18 08/17/18 Range/Units 21:02 21:56 21:58 RBC 2.78 L (4.30-5.90) m/uL Hgb 8.1 L (13.0-17.5) gm/dL Hct 25.7 L (39.0-53.0) % Plt Count 91 L (150-450) k/uL Lymphocytes # 0.4 L (1.0-4.8) k/uL INR (<1.2) APTT (22.0-30.0) sec ABG pH (7.35-7.45) ABG pCO2 (35-45) mmHg ABG pO2 (83-108) mmHg ABG Total CO2 (19-24) mmol/L ABG O2 Saturation (94-97) % ABG Hematocrit (34.0-46.0) % ABG Potassium (3.4-4.5) mmol/L ABG Ionized Calcium (4.5-5.3) mg/dL ABG Glucose (75-99) mg/dL ABG Lactic Acid (0.5-1.6) mmol/L Hemoglobin (13.0-17.5) gm/dL Potassium (3.5-5.1) mmol/L Chloride (98-107) mmol/L BUN (9-20) mg/dL Creatinine (0.66-1.25) mg/dL Glucose (74-99) mg/dL POC Glucose (mg/dL) 157 H 166 H (75-99) mg/dL Ionized Calcium Yudith (4.5-5.3) mg/dL AST (17-59) U/L Alkaline Phosphatase (38-126) U/L Total Protein (6.3-8.2) g/dL Albumin (3.5-5.0) g/dL Arterial Blood Potassium (3.4-4.5) mmol/L Arterial Blood Glucose (75-99) mg/dL Crossmatch 08/17/18 08/17/18 08/17/18 Range/Units 21:58 23:01 23:58 RBC (4.30-5.90) m/uL Hgb (13.0-17.5) gm/dL Hct (39.0-53.0) % Plt Count (150-450) k/uL Lymphocytes # (1.0-4.8) k/uL INR (<1.2) APTT (22.0-30.0) sec ABG pH (7.35-7.45) ABG pCO2 (35-45) mmHg ABG pO2 (83-108) mmHg ABG Total CO2 (19-24) mmol/L ABG O2 Saturation (94-97) % ABG Hematocrit (34.0-46.0) % ABG Potassium (3.4-4.5) mmol/L ABG Ionized Calcium (4.5-5.3) mg/dL ABG Glucose (75-99) mg/dL ABG Lactic Acid (0.5-1.6) mmol/L Hemoglobin (13.0-17.5) gm/dL Potassium 5.8 H (3.5-5.1) mmol/L Chloride 109 H (98-107) mmol/L BUN 22 H (9-20) mg/dL Creatinine 1.32 H (0.66-1.25) mg/dL Glucose 152 H (74-99) mg/dL POC Glucose (mg/dL) 144 H 163 H (75-99) mg/dL Ionized Calcium Yudith (4.5-5.3) mg/dL AST (17-59) U/L Alkaline Phosphatase (38-126) U/L Total Protein (6.3-8.2) g/dL Albumin (3.5-5.0) g/dL Arterial Blood Potassium (3.4-4.5) mmol/L Arterial Blood Glucose (75-99) mg/dL Crossmatch 08/18/18 08/18/18 08/18/18 Range/Units 01:02 02:04 03:00 RBC (4.30-5.90) m/uL Hgb (13.0-17.5) gm/dL Hct (39.0-53.0) % Plt Count (150-450) k/uL Lymphocytes # (1.0-4.8) k/uL INR (<1.2) APTT (22.0-30.0) sec ABG pH (7.35-7.45) ABG pCO2 (35-45) mmHg ABG pO2 (83-108) mmHg ABG Total CO2 (19-24) mmol/L ABG O2 Saturation (94-97) % ABG Hematocrit (34.0-46.0) % ABG Potassium (3.4-4.5) mmol/L ABG Ionized Calcium (4.5-5.3) mg/dL ABG Glucose (75-99) mg/dL ABG Lactic Acid (0.5-1.6) mmol/L Hemoglobin (13.0-17.5) gm/dL Potassium (3.5-5.1) mmol/L Chloride (98-107) mmol/L BUN (9-20) mg/dL Creatinine (0.66-1.25) mg/dL Glucose (74-99) mg/dL POC Glucose (mg/dL) 138 H 114 H 123 H (75-99) mg/dL Ionized Calcium Yudith (4.5-5.3) mg/dL AST (17-59) U/L Alkaline Phosphatase (38-126) U/L Total Protein (6.3-8.2) g/dL Albumin (3.5-5.0) g/dL Arterial Blood Potassium (3.4-4.5) mmol/L Arterial Blood Glucose (75-99) mg/dL Crossmatch 08/18/18 08/18/18 08/18/18 Range/Units 04:00 04:00 04:00 RBC 2.73 L (4.30-5.90) m/uL Hgb 7.9 L (13.0-17.5) gm/dL Hct 24.7 L (39.0-53.0) % Plt Count 105 L (150-450) k/uL Lymphocytes # 0.4 L (1.0-4.8) k/uL INR (<1.2) APTT 34.8 H (22.0-30.0) sec ABG pH (7.35-7.45) ABG pCO2 (35-45) mmHg ABG pO2 (83-108) mmHg ABG Total CO2 (19-24) mmol/L ABG O2 Saturation (94-97) % ABG Hematocrit (34.0-46.0) % ABG Potassium (3.4-4.5) mmol/L ABG Ionized Calcium (4.5-5.3) mg/dL ABG Glucose (75-99) mg/dL ABG Lactic Acid (0.5-1.6) mmol/L Hemoglobin (13.0-17.5) gm/dL Potassium (3.5-5.1) mmol/L Chloride 108 H (98-107) mmol/L BUN 24 H (9-20) mg/dL Creatinine 1.42 H (0.66-1.25) mg/dL Glucose 105 H (74-99) mg/dL POC Glucose (mg/dL) (75-99) mg/dL Ionized Calcium Yudith (4.5-5.3) mg/dL AST 75 H (17-59) U/L Alkaline Phosphatase 30 L (38-126) U/L Total Protein 5.1 L (6.3-8.2) g/dL Albumin (3.5-5.0) g/dL Arterial Blood Potassium (3.4-4.5) mmol/L Arterial Blood Glucose (75-99) mg/dL Crossmatch 08/18/18 08/18/18 08/18/18 Range/Units 04:05 05:01 06:18 RBC (4.30-5.90) m/uL Hgb (13.0-17.5) gm/dL Hct (39.0-53.0) % Plt Count (150-450) k/uL Lymphocytes # (1.0-4.8) k/uL INR (<1.2) APTT (22.0-30.0) sec ABG pH (7.35-7.45) ABG pCO2 (35-45) mmHg ABG pO2 (83-108) mmHg ABG Total CO2 (19-24) mmol/L ABG O2 Saturation (94-97) % ABG Hematocrit (34.0-46.0) % ABG Potassium (3.4-4.5) mmol/L ABG Ionized Calcium (4.5-5.3) mg/dL ABG Glucose (75-99) mg/dL ABG Lactic Acid (0.5-1.6) mmol/L Hemoglobin (13.0-17.5) gm/dL Potassium (3.5-5.1) mmol/L Chloride (98-107) mmol/L BUN (9-20) mg/dL Creatinine (0.66-1.25) mg/dL Glucose (74-99) mg/dL POC Glucose (mg/dL) 113 H 128 H 120 H (75-99) mg/dL Ionized Calcium Yudith (4.5-5.3) mg/dL AST (17-59) U/L Alkaline Phosphatase (38-126) U/L Total Protein (6.3-8.2) g/dL Albumin (3.5-5.0) g/dL Arterial Blood Potassium (3.4-4.5) mmol/L Arterial Blood Glucose (75-99) mg/dL Crossmatch 09/18/18 Range/Units 07:04 RBC (4.30-5.90) m/uL Hgb (13.0-17.5) gm/dL Hct (39.0-53.0) % Plt Count (150-450) k/uL Lymphocytes # (1.0-4.8) k/uL INR (<1.2) APTT (22.0-30.0) sec ABG pH (7.35-7.45) ABG pCO2 (35-45) mmHg ABG pO2 (83-108) mmHg ABG Total CO2 (19-24) mmol/L ABG O2 Saturation (94-97) % ABG Hematocrit (34.0-46.0) % ABG Potassium (3.4-4.5) mmol/L ABG Ionized Calcium (4.5-5.3) mg/dL ABG Glucose (75-99) mg/dL ABG Lactic Acid (0.5-1.6) mmol/L Hemoglobin (13.0-17.5) gm/dL Potassium (3.5-5.1) mmol/L Chloride (98-107) mmol/L BUN (9-20) mg/dL Creatinine (0.66-1.25) mg/dL Glucose (74-99) mg/dL POC Glucose (mg/dL) 104 H (75-99) mg/dL Ionized Calcium Yudith (4.5-5.3) mg/dL AST (17-59) U/L Alkaline Phosphatase (38-126) U/L Total Protein (6.3-8.2) g/dL Albumin (3.5-5.0) g/dL Arterial Blood Potassium (3.4-4.5) mmol/L Arterial Blood Glucose (75-99) mg/dL Crossmatch - Imaging and Cardiology Chest x-ray: report reviewed, image reviewed Assessment and Plan (1) CAD (coronary artery disease) Current Visit: Yes Status: Chronic Code(s): I25.10 - ATHSCL HEART DISEASE OF [place] CORONARY ARTERY W/O ANG PCTRS SNOMED Code(s): 85085988 (2) Left main coronary artery disease Current Visit: Yes Status: Chronic Code(s): I25.10 - ATHSCL HEART DISEASE OF [place] CORONARY ARTERY W/O ANG PCTRS SNOMED Code(s): 901761451 (3) Hypertension Current Visit: Yes Status: Chronic Code(s): I10 - ESSENTIAL (PRIMARY) HYPERTENSION SNOMED Code(s): 88352824 (4) Hyperlipidemia Current Visit: Yes Status: Chronic Code(s): E78.5 - HYPERLIPIDEMIA, UNSPECIFIED SNOMED Code(s): 91606542 (5) Insulin dependent diabetes mellitus Current Visit: Yes Status: Chronic Code(s): E11.9 - TYPE 2 DIABETES MELLITUS WITHOUT COMPLICATIONS; 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 SNOMED Code(s): 92913869 (6) Tobacco dependence in remission Current Visit: No Status: Resolved Code(s): F17.201 - NICOTINE DEPENDENCE, UNSPECIFIED, IN REMISSION SNOMED Code(s): 676854506 (7) COPD (chronic obstructive pulmonary disease) Current Visit: Yes Status: Chronic Code(s): J44.9 - CHRONIC OBSTRUCTIVE PULMONARY DISEASE, UNSPECIFIED SNOMED Code(s): 13678091 (8) History of nephrectomy Current Visit: Yes Status: Chronic Code(s): Z90.5 - ACQUIRED ABSENCE OF KIDNEY SNOMED Code(s): 92896345550935 (9) Family history of heart disease Current Visit: Yes Status: Chronic Code(s): Z82.49 - FAMILY HX OF ISCHEM HEART DIS AND OTH DIS OF THE CIRC SYS SNOMED Code(s): 837947709 (10) History of prostate cancer Current Visit: Yes Status: Chronic Code(s): Z85.46 - PERSONAL HISTORY OF MALIGNANT NEOPLASM OF PROSTATE SNOMED Code(s): 637179513 (11) NSTEMI (non-ST elevated myocardial infarction) Current Visit: Yes Status: Acute Code(s): I21.4 - NON-ST ELEVATION (NSTEMI) MYOCARDIAL INFARCTION SNOMED Code(s): 618562658 Plan: 1. Continue aspirin, statin, Plavix, beta laurie. Will increase beta laurie therapy as tolerated. 2. Wean levo as tolerated. Discontinue Primacor, Precedex, nitro drip. 3. Wean O2 as tolerated. Encourage incentive spirometry 10 times every hour while awake. 4. Increase activity, ambulate in room, ambulate in hallway as tolerated. PT/ OT/cardiac rehab following. 5. Bronchodilators per pulmonology. 6. Insulin per primary care service. 7. Will monitor daily labs and x-rays. 8. GI prophylaxis with Protonix. DVT prophylaxis with subcu heparin, SCDs. 9. Discontinue [place]. Correct [place] to continuous CVP monitoring. 10. Pain control with current medication regimen. 11. Continue Flomax for BPH. 12. Avoid nephrotoxic agents. 13. More recommendations to follow. Time with Patient: Greater than 30
[2018-08-18 09:14] LABS: Glucose,Whole Blood 116 mg/dL (75-99)
--- NOTE | 2018-08-18 09:24 | P.VSCSTY ---
Greater Saphenous Vein Mapping This is bilateral lower extremity greater saphenous vein mapping. Date of service 08/14/2018 Vein quality and ultrasound appearance no intraluminal thrombus or wall changes are seen. Vein size groin right 8.4 x 7.4 groin left 7.6 x 7.7 High thigh right 6.2 x 5.0 high thigh left 7.4 x 6.8 Mid thigh right 4.8 x 3.7 mid thigh left 4.8 x 4.9 Above-knee right 2.9 x 2.8 above- knee left 3.1 x 2.9 Below knee right 2.9 x 2.1 below-knee left 3.6 x 2.3 Mid calf right to 0.3 x 1.8 mid calf left 2.7 x 1.6 Ankle right 3.1 x 1.9 ankle left 2.6 x 1.6 Impression usable bilateral greater saphenous vein. Both sides seem a bit large proximally and a bit small distally. Clinical correlation recommended.
[2018-08-18] MEDS: MUPIROCIN 2% OINT 22 GM TUBE NASAL SCH ×2 (09:44→21:05)
--- NOTE | 2018-08-18 10:47 | P.PN ---
Subjective Progress Note Date: 08/18/18 This is a 73-year-old male, patient of [facility]. He has a known past medical history of hypertension, diabetes mellitus, COPD, right nephrectomy 1970 and former smoker. Patient presents to the emergency room with complaints of chest pain with pressure and heaviness and diaphoresis. Symptoms had started yesterday. Patient was diagnosed with a non-ST elevated [place]. Initial troponin 0.128 then 11.6 and 11.8. Patient was started on IV heparin cardiology was consulted. And patient underwent heart catheterization today. The heart catheterization shows total occlusion of the right coronary artery. Left main is 70-75% stenosed. The left anterior descending coronary artery has a mid lesion of 70% with thrombus. Obtuse marginal had 80-85% stenosis. Cardiology is recommending open-heart surgery. That her surgery has been consulted. They have already evaluated patient and surgery we'll possibly be on Friday. Pulmonary service has also been consulted. Patient is receiving IV fluids. He was slightly dehydrated on admission creatinine was 1.44. Unclear baseline creatinine. Creatinine in March 2018 was 1.3. Patient currently is chest pain-free. He reports that symptoms started after eating spicy soup and when he came back home he belched a large amount of gas and is relieved the pressure. He has been chest pain-free. Cardiology has placed him on IV heparin and Aggrastat. On 08/15/2018 patient was seen and examined he is alert and oriented 3 in no apparent distress he is sitting at the edge of the bed and he denies any chest pain there is no shortness of breath at rest he has occasional cough no palpitation no nausea or vomiting no abdominal pain no diarrhea no constipation no burning with urination no frequency or urgency and no hematuria. On 08/16/2018 patient was seen and examined on the telemetry floor he is alert and oriented 3 in no distress he denies any new episodes of chest pain he denies any other symptoms there is no fever or chills no headache or dizziness no shortness of breath no cough no nausea or vomiting no abdominal pain no diarrhea no burning was urination no frequency or urgency and no hematuria On 08/17/2018 Patient had coronary artery bypass graft [address] Hannah today. Patient currently intubated and on sedation. Patient remains in the intensive care unit. Patient currently on levophed for pressure support. On 08/18/2018 patient is currently postop day 1 and coronary artery bypass graft surgery. Patient is currently up in chair. Patient was extubated throughout night. Precedex drip has been DC'd per cardiovascular team. Patient remains sleepy but alert and arousable. At this time patient denies shortness of breath. Denies nausea vomiting or diarrhea. Denies any urinary burning. Objective - Vital Signs Vital signs: Vital Signs Temp 98.4 F 08/18/18 04:00 Pulse 80 08/18/18 09:00 Resp 27 H 08/18/18 09:00 BP 94/50 08/18/18 08:00 Pulse Ox 98 08/18/18 09:00 Intake & Output 08/17/18 08/18/18 08/18/18 18:59 06:59 18:59 Intake Total 932.931 0012.501 184.824 Output Total 2455 865 188 Balance -2152.837 671.501 -3.176 Weight 112.6 kg 112.6 kg Intake: IV 288.0 1276.0 158.5 ACETAMINOPHEN IV (For NPO 100 ) 1,000 mg In Empty Bag 1 bag @ 400 mls/hr IVPB Q6HR [facility] Rx#:[id number] Albumin Human 5% 250 ml 500 In Empty Bag 1 bag @ 250 mls/hr IVPB Q1HR PRN Rx#: [id number] Co/CI 40 60 10 Lactated Ringers 1,000 ml 200 490 120 @ 20 mls/hr IV .Q24H [facility] Rx#:[id number] Nitroglycerin-D5w Pmx 50 6.0 18.0 1.5 mg In Dextrose/Water 1 250ml.bag @ 5 MCG/MIN 1.5 mls/hr IV .Q24H [facility] Rx#: [id number] pressure bags 9 108 27 Intake, IV Titration 14.163 260.501 26.324 Amount Dexmedetomidine/0.9% NaCl 92.752 (Pmx) 400 mcg In Empty Bag 1 bag @ Titrate IV . Q0M [facility] Rx#:[id number] Insulin Regular 100 unit 34.669 1.974 In Sodium Chloride 0.9% 100 ml @ Per Protocol IV .Q0M [facility] Rx#:[id number] Insulin Regular 100 unit 0.433 In Sodium Chloride 0.9% 100 ml @ Titrate IV .Q0M [facility] Rx#:[id number] Milrinone-D5w Pmx 20 mg 6.855 54.993 16.163 In Dextrose/Water 1 100ml .bag @ 0.1 MCG/KG/MIN 3. 04 mls/hr IV .Q24H [facility] Rx #:[id number] Norepinephrine 16 mg In 7.525 8.187 Sodium Chloride 0.9% 250 ml @ Titrate IV .Q0M [facility] Rx#:[id number] Norepinephrine 4 mg In 6.875 70.562 Sodium Chloride 0.9% 250 ml @ Titrate IV .Q0M [facility] Rx#:[id number] Output: Chest Tube Drainage 100 380 70 Left Pleural/Mediastinal 100 380 70 Urine 855 485 118 Estimated Blood Loss 1500 Other: Voiding Method Indwelling Catheter Indwelling Catheter ABP, PAP, CO, CI - Last Documented Arterial Blood Pressure 120/54 Pulmonary Artery Pressure 47/7 Cardiac Output 7.2 Cardiac Index 3.5 - Exam Head normocephalic Neck supple Lungs patient currently intubated Heart regular rate and rhythm S1-S2, no rub or gallop Abdomen is soft nontender nondistended positive bowel sounds no hepatosplenomegaly Extremities no edema - Labs CBC & Chem 7: 08/18/18 04:00 08/18/18 04:00 Labs: Abnormal Lab Results - Last 24 Hours (Table) 08/16/18 08/17/18 08/17/18 Range/Units 13:55 08:54 10:11 RBC (4.30-5.90) m/uL Hgb (13.0-17.5) gm/dL Hct (39.0-53.0) % Plt Count (150-450) k/uL Lymphocytes # (1.0-4.8) k/uL INR (<1.2) APTT (22.0-30.0) sec ABG pH 7.33 L 7.28 L (7.35-7.45) ABG pCO2 50 H (35-45) mmHg ABG pO2 320 H (83-108) mmHg ABG Total CO2 25 H 25 H (19-24) mmol/L ABG O2 Saturation 100.0 H (94-97) % ABG Hematocrit (34.0-46.0) % ABG Potassium 4.8 H 5.1 H (3.4-4.5) mmol/L ABG Ionized Calcium (4.5-5.3) mg/dL ABG Glucose 151 H 171 H (75-99) mg/dL ABG Lactic Acid (0.5-1.6) mmol/L Hemoglobin 12.5 L 11.7 L (13.0-17.5) gm/dL Potassium (3.5-5.1) mmol/L Chloride (98-107) mmol/L BUN (9-20) mg/dL Creatinine (0.66-1.25) mg/dL Glucose (74-99) mg/dL POC Glucose (mg/dL) (75-99) mg/dL Ionized Calcium Yudith (4.5-5.3) mg/dL AST (17-59) U/L Alkaline Phosphatase (38-126) U/L Total Protein (6.3-8.2) g/dL Albumin (3.5-5.0) g/dL Arterial Blood Potassium 4.8 H 5.1 H (3.4-4.5) mmol/L Arterial Blood Glucose 151 H 171 H (75-99) mg/dL Crossmatch See Detail 08/17/18 08/17/18 08/17/18 Range/Units 11:01 11:40 12:20 RBC (4.30-5.90) m/uL Hgb (13.0-17.5) gm/dL Hct (39.0-53.0) % Plt Count (150-450) k/uL Lymphocytes # (1.0-4.8) k/uL INR (<1.2) APTT (22.0-30.0) sec ABG pH (7.35-7.45) ABG pCO2 (35-45) mmHg ABG pO2 >420 H 297 H 373 H (83-108) mmHg ABG Total CO2 25 H 26 H 26 H (19-24) mmol/L ABG O2 Saturation 100.0 H 100.0 H 100.0 H (94-97) % ABG Hematocrit 26 L 24 L 23 L (34.0-46.0) % ABG Potassium 4.8 H 5.6 H 5.3 H (3.4-4.5) mmol/L ABG Ionized Calcium 4.2 L 4.2 L 4.2 L (4.5-5.3) mg/dL ABG Glucose 149 H 231 H 232 H (75-99) mg/dL ABG Lactic Acid (0.5-1.6) mmol/L Hemoglobin 8.5 L 7.7 L 7.6 L (13.0-17.5) gm/dL Potassium (3.5-5.1) mmol/L Chloride (98-107) mmol/L BUN (9-20) mg/dL Creatinine (0.66-1.25) mg/dL Glucose (74-99) mg/dL POC Glucose (mg/dL) (75-99) mg/dL Ionized Calcium Yudith (4.5-5.3) mg/dL AST (17-59) U/L Alkaline Phosphatase (38-126) U/L Total Protein (6.3-8.2) g/dL Albumin (3.5-5.0) g/dL Arterial Blood Potassium 4.8 H 5.6 H 5.3 H (3.4-4.5) mmol/L Arterial Blood Glucose 149 H 231 H 232 H (75-99) mg/dL Crossmatch 08/17/18 08/17/18 08/17/18 Range/Units 12:58 14:05 15:33 RBC (4.30-5.90) m/uL Hgb (13.0-17.5) gm/dL Hct (39.0-53.0) % Plt Count (150-450) k/uL Lymphocytes # (1.0-4.8) k/uL INR (<1.2) APTT (22.0-30.0) sec ABG pH 7.34 L (7.35-7.45) ABG pCO2 47 H (35-45) mmHg ABG pO2 >420 H 111 H (83-108) mmHg ABG Total CO2 25 H 26 H (19-24) mmol/L ABG O2 Saturation 100.0 H 98.7 H (94-97) % ABG Hematocrit 23 L 28 L (34.0-46.0) % ABG Potassium 5.0 H (3.4-4.5) mmol/L ABG Ionized Calcium 4.1 L (4.5-5.3) mg/dL ABG Glucose 194 H 155 H (75-99) mg/dL ABG Lactic Acid 1.7 H (0.5-1.6) mmol/L Hemoglobin 7.5 L 9.0 L (13.0-17.5) gm/dL Potassium (3.5-5.1) mmol/L Chloride (98-107) mmol/L BUN (9-20) mg/dL Creatinine (0.66-1.25) mg/dL Glucose (74-99) mg/dL POC Glucose (mg/dL) 116 H (75-99) mg/dL Ionized Calcium Yudith (4.5-5.3) mg/dL AST (17-59) U/L Alkaline Phosphatase (38-126) U/L Total Protein (6.3-8.2) g/dL Albumin (3.5-5.0) g/dL Arterial Blood Potassium 5.0 H (3.4-4.5) mmol/L Arterial Blood Glucose 194 H 155 H (75-99) mg/dL Crossmatch 08/17/18 08/17/18 08/17/18 Range/Units 15:40 15:40 15:40 RBC 2.83 L (4.30-5.90) m/uL Hgb 8.5 L D (13.0-17.5) gm/dL Hct 26.3 L (39.0-53.0) % Plt Count 101 L (150-450) k/uL Lymphocytes # 0.4 L (1.0-4.8) k/uL INR 1.2 H (<1.2) APTT 31.3 H (22.0-30.0) sec ABG pH (7.35-7.45) ABG pCO2 (35-45) mmHg ABG pO2 (83-108) mmHg ABG Total CO2 (19-24) mmol/L ABG O2 Saturation (94-97) % ABG Hematocrit (34.0-46.0) % ABG Potassium (3.4-4.5) mmol/L ABG Ionized Calcium (4.5-5.3) mg/dL ABG Glucose (75-99) mg/dL ABG Lactic Acid (0.5-1.6) mmol/L Hemoglobin (13.0-17.5) gm/dL Potassium (3.5-5.1) mmol/L Chloride 110 H (98-107) mmol/L BUN 21 H (9-20) mg/dL Creatinine (0.66-1.25) mg/dL Glucose 105 H (74-99) mg/dL POC Glucose (mg/dL) (75-99) mg/dL Ionized Calcium Yudith 5.7 H (4.5-5.3) mg/dL AST 65 H (17-59) U/L Alkaline Phosphatase 28 L (38-126) U/L Total Protein 4.9 L (6.3-8.2) g/dL Albumin 3.1 L (3.5-5.0) g/dL Arterial Blood Potassium (3.4-4.5) mmol/L Arterial Blood Glucose (75-99) mg/dL Crossmatch 08/17/18 08/17/18 08/17/18 Range/Units 16:07 16:07 16:43 RBC (4.30-5.90) m/uL Hgb (13.0-17.5) gm/dL Hct (39.0-53.0) % Plt Count (150-450) k/uL Lymphocytes # (1.0-4.8) k/uL INR (<1.2) APTT (22.0-30.0) sec ABG pH 7.25 L 7.30 L (7.35-7.45) ABG pCO2 53 H 48 H (35-45) mmHg ABG pO2 79 L 78 L (83-108) mmHg ABG Total CO2 25 H 25 H (19-24) mmol/L ABG O2 Saturation (94-97) % ABG Hematocrit (34.0-46.0) % ABG Potassium (3.4-4.5) mmol/L ABG Ionized Calcium (4.5-5.3) mg/dL ABG Glucose (75-99) mg/dL ABG Lactic Acid (0.5-1.6) mmol/L Hemoglobin (13.0-17.5) gm/dL Potassium (3.5-5.1) mmol/L Chloride (98-107) mmol/L BUN (9-20) mg/dL Creatinine (0.66-1.25) mg/dL Glucose (74-99) mg/dL POC Glucose (mg/dL) 115 H (75-99) mg/dL Ionized Calcium Yudith (4.5-5.3) mg/dL AST (17-59) U/L Alkaline Phosphatase (38-126) U/L Total Protein (6.3-8.2) g/dL Albumin (3.5-5.0) g/dL Arterial Blood Potassium (3.4-4.5) mmol/L Arterial Blood Glucose (75-99) mg/dL Crossmatch 08/17/18 08/17/18 08/17/18 Range/Units 16:57 18:00 18:42 RBC 2.78 L (4.30-5.90) m/uL Hgb 8.0 L (13.0-17.5) gm/dL Hct 25.4 L (39.0-53.0) % Plt Count 93 L (150-450) k/uL Lymphocytes # 0.3 L (1.0-4.8) k/uL INR (<1.2) APTT (22.0-30.0) sec ABG pH (7.35-7.45) ABG pCO2 (35-45) mmHg ABG pO2 (83-108) mmHg ABG Total CO2 (19-24) mmol/L ABG O2 Saturation (94-97) % ABG Hematocrit (34.0-46.0) % ABG Potassium (3.4-4.5) mmol/L ABG Ionized Calcium (4.5-5.3) mg/dL ABG Glucose (75-99) mg/dL ABG Lactic Acid (0.5-1.6) mmol/L Hemoglobin (13.0-17.5) gm/dL Potassium (3.5-5.1) mmol/L Chloride (98-107) mmol/L BUN (9-20) mg/dL Creatinine (0.66-1.25) mg/dL Glucose (74-99) mg/dL POC Glucose (mg/dL) 104 H 123 H (75-99) mg/dL Ionized Calcium Yudith (4.5-5.3) mg/dL AST (17-59) U/L Alkaline Phosphatase (38-126) U/L Total Protein (6.3-8.2) g/dL Albumin (3.5-5.0) g/dL Arterial Blood Potassium (3.4-4.5) mmol/L Arterial Blood Glucose (75-99) mg/dL Crossmatch 08/17/18 08/17/18 08/17/18 Range/Units 19:20 19:59 20:08 RBC (4.30-5.90) m/uL Hgb (13.0-17.5) gm/dL Hct (39.0-53.0) % Plt Count (150-450) k/uL Lymphocytes # (1.0-4.8) k/uL INR (<1.2) APTT (22.0-30.0) sec ABG pH 7.32 L (7.35-7.45) ABG pCO2 (35-45) mmHg ABG pO2 (83-108) mmHg ABG Total CO2 (19-24) mmol/L ABG O2 Saturation (94-97) % ABG Hematocrit (34.0-46.0) % ABG Potassium (3.4-4.5) mmol/L ABG Ionized Calcium (4.5-5.3) mg/dL ABG Glucose (75-99) mg/dL ABG Lactic Acid (0.5-1.6) mmol/L Hemoglobin (13.0-17.5) gm/dL Potassium (3.5-5.1) mmol/L Chloride (98-107) mmol/L BUN (9-20) mg/dL Creatinine (0.66-1.25) mg/dL Glucose (74-99) mg/dL POC Glucose (mg/dL) 141 H 152 H (75-99) mg/dL Ionized Calcium Yudith (4.5-5.3) mg/dL AST (17-59) U/L Alkaline Phosphatase (38-126) U/L Total Protein (6.3-8.2) g/dL Albumin (3.5-5.0) g/dL Arterial Blood Potassium (3.4-4.5) mmol/L Arterial Blood Glucose (75-99) mg/dL Crossmatch 08/17/18 08/17/18 08/17/18 Range/Units 21:02 21:56 21:58 RBC 2.78 L (4.30-5.90) m/uL Hgb 8.1 L (13.0-17.5) gm/dL Hct 25.7 L (39.0-53.0) % Plt Count 91 L (150-450) k/uL Lymphocytes # 0.4 L (1.0-4.8) k/uL INR (<1.2) APTT (22.0-30.0) sec ABG pH (7.35-7.45) ABG pCO2 (35-45) mmHg ABG pO2 (83-108) mmHg ABG Total CO2 (19-24) mmol/L ABG O2 Saturation (94-97) % ABG Hematocrit (34.0-46.0) % ABG Potassium (3.4-4.5) mmol/L ABG Ionized Calcium (4.5-5.3) mg/dL ABG Glucose (75-99) mg/dL ABG Lactic Acid (0.5-1.6) mmol/L Hemoglobin (13.0-17.5) gm/dL Potassium (3.5-5.1) mmol/L Chloride (98-107) mmol/L BUN (9-20) mg/dL Creatinine (0.66-1.25) mg/dL Glucose (74-99) mg/dL POC Glucose (mg/dL) 157 H 166 H (75-99) mg/dL Ionized Calcium Yudith (4.5-5.3) mg/dL AST (17-59) U/L Alkaline Phosphatase (38-126) U/L Total Protein (6.3-8.2) g/dL Albumin (3.5-5.0) g/dL Arterial Blood Potassium (3.4-4.5) mmol/L Arterial Blood Glucose (75-99) mg/dL Crossmatch 08/17/18 08/17/18 08/17/18 Range/Units 21:58 23:01 23:58 RBC (4.30-5.90) m/uL Hgb (13.0-17.5) gm/dL Hct (39.0-53.0) % Plt Count (150-450) k/uL Lymphocytes # (1.0-4.8) k/uL INR (<1.2) APTT (22.0-30.0) sec ABG pH (7.35-7.45) ABG pCO2 (35-45) mmHg ABG pO2 (83-108) mmHg ABG Total CO2 (19-24) mmol/L ABG O2 Saturation (94-97) % ABG Hematocrit (34.0-46.0) % ABG Potassium (3.4-4.5) mmol/L ABG Ionized Calcium (4.5-5.3) mg/dL ABG Glucose (75-99) mg/dL ABG Lactic Acid (0.5-1.6) mmol/L Hemoglobin (13.0-17.5) gm/dL Potassium 5.8 H (3.5-5.1) mmol/L Chloride 109 H (98-107) mmol/L BUN 22 H (9-20) mg/dL Creatinine 1.32 H (0.66-1.25) mg/dL Glucose 152 H (74-99) mg/dL POC Glucose (mg/dL) 144 H 163 H (75-99) mg/dL Ionized Calcium Yudith (4.5-5.3) mg/dL AST (17-59) U/L Alkaline Phosphatase (38-126) U/L Total Protein (6.3-8.2) g/dL Albumin (3.5-5.0) g/dL Arterial Blood Potassium (3.4-4.5) mmol/L Arterial Blood Glucose (75-99) mg/dL Crossmatch 08/18/18 08/18/18 08/18/18 Range/Units 01:02 02:04 03:00 RBC (4.30-5.90) m/uL Hgb (13.0-17.5) gm/dL Hct (39.0-53.0) % Plt Count (150-450) k/uL Lymphocytes # (1.0-4.8) k/uL INR (<1.2) APTT (22.0-30.0) sec ABG pH (7.35-7.45) ABG pCO2 (35-45) mmHg ABG pO2 (83-108) mmHg ABG Total CO2 (19-24) mmol/L ABG O2 Saturation (94-97) % ABG Hematocrit (34.0-46.0) % ABG Potassium (3.4-4.5) mmol/L ABG Ionized Calcium (4.5-5.3) mg/dL ABG Glucose (75-99) mg/dL ABG Lactic Acid (0.5-1.6) mmol/L Hemoglobin (13.0-17.5) gm/dL Potassium (3.5-5.1) mmol/L Chloride (98-107) mmol/L BUN (9-20) mg/dL Creatinine (0.66-1.25) mg/dL Glucose (74-99) mg/dL POC Glucose (mg/dL) 138 H 114 H 123 H (75-99) mg/dL Ionized Calcium Yudith (4.5-5.3) mg/dL AST (17-59) U/L Alkaline Phosphatase (38-126) U/L Total Protein (6.3-8.2) g/dL Albumin (3.5-5.0) g/dL Arterial Blood Potassium (3.4-4.5) mmol/L Arterial Blood Glucose (75-99) mg/dL Crossmatch 08/18/18 08/18/18 08/18/18 Range/Units 04:00 04:00 04:00 RBC 2.73 L (4.30-5.90) m/uL Hgb 7.9 L (13.0-17.5) gm/dL Hct 24.7 L (39.0-53.0) % Plt Count 105 L (150-450) k/uL Lymphocytes # 0.4 L (1.0-4.8) k/uL INR (<1.2) APTT 34.8 H (22.0-30.0) sec ABG pH (7.35-7.45) ABG pCO2 (35-45) mmHg ABG pO2 (83-108) mmHg ABG Total CO2 (19-24) mmol/L ABG O2 Saturation (94-97) % ABG Hematocrit (34.0-46.0) % ABG Potassium (3.4-4.5) mmol/L ABG Ionized Calcium (4.5-5.3) mg/dL ABG Glucose (75-99) mg/dL ABG Lactic Acid (0.5-1.6) mmol/L Hemoglobin (13.0-17.5) gm/dL Potassium (3.5-5.1) mmol/L Chloride 108 H (98-107) mmol/L BUN 24 H (9-20) mg/dL Creatinine 1.42 H (0.66-1.25) mg/dL Glucose 105 H (74-99) mg/dL POC Glucose (mg/dL) (75-99) mg/dL Ionized Calcium Yudith (4.5-5.3) mg/dL AST 75 H (17-59) U/L Alkaline Phosphatase 30 L (38-126) U/L Total Protein 5.1 L (6.3-8.2) g/dL Albumin (3.5-5.0) g/dL Arterial Blood Potassium (3.4-4.5) mmol/L Arterial Blood Glucose (75-99) mg/dL Crossmatch 08/18/18 08/18/18 08/18/18 Range/Units 04:05 05:01 06:18 RBC (4.30-5.90) m/uL Hgb (13.0-17.5) gm/dL Hct (39.0-53.0) % Plt Count (150-450) k/uL Lymphocytes # (1.0-4.8) k/uL INR (<1.2) APTT (22.0-30.0) sec ABG pH (7.35-7.45) ABG pCO2 (35-45) mmHg ABG pO2 (83-108) mmHg ABG Total CO2 (19-24) mmol/L ABG O2 Saturation (94-97) % ABG Hematocrit (34.0-46.0) % ABG Potassium (3.4-4.5) mmol/L ABG Ionized Calcium (4.5-5.3) mg/dL ABG Glucose (75-99) mg/dL ABG Lactic Acid (0.5-1.6) mmol/L Hemoglobin (13.0-17.5) gm/dL Potassium (3.5-5.1) mmol/L Chloride (98-107) mmol/L BUN (9-20) mg/dL Creatinine (0.66-1.25) mg/dL Glucose (74-99) mg/dL POC Glucose (mg/dL) 113 H 128 H 120 H (75-99) mg/dL Ionized Calcium Yudith (4.5-5.3) mg/dL AST (17-59) U/L Alkaline Phosphatase (38-126) U/L Total Protein (6.3-8.2) g/dL Albumin (3.5-5.0) g/dL Arterial Blood Potassium (3.4-4.5) mmol/L Arterial Blood Glucose (75-99) mg/dL Crossmatch 08/18/18 08/18/18 08/18/18 Range/Units 07:04 07:56 09:10 RBC (4.30-5.90) m/uL Hgb (13.0-17.5) gm/dL Hct (39.0-53.0) % Plt Count (150-450) k/uL Lymphocytes # (1.0-4.8) k/uL INR (<1.2) APTT (22.0-30.0) sec ABG pH (7.35-7.45) ABG pCO2 (35-45) mmHg ABG pO2 (83-108) mmHg ABG Total CO2 (19-24) mmol/L ABG O2 Saturation (94-97) % ABG Hematocrit (34.0-46.0) % ABG Potassium (3.4-4.5) mmol/L ABG Ionized Calcium (4.5-5.3) mg/dL ABG Glucose (75-99) mg/dL ABG Lactic Acid (0.5-1.6) mmol/L Hemoglobin (13.0-17.5) gm/dL Potassium (3.5-5.1) mmol/L Chloride (98-107) mmol/L BUN (9-20) mg/dL Creatinine (0.66-1.25) mg/dL Glucose (74-99) mg/dL POC Glucose (mg/dL) 104 H 122 H 116 H (75-99) mg/dL Ionized Calcium Yudith (4.5-5.3) mg/dL AST (17-59) U/L Alkaline Phosphatase (38-126) U/L Total Protein (6.3-8.2) g/dL Albumin (3.5-5.0) g/dL Arterial Blood Potassium (3.4-4.5) mmol/L Arterial Blood Glucose (75-99) mg/dL Crossmatch Assessment and Plan Assessment: 1. Status post coronary artery bypass graft [address] Hannah postop day 1. The CHAHAL to LAD, SVG to PDA and Circ. Patient currently intubated and on sedation. Cardiovascular team and critical care team following closely. Patient currently up in chair. Patient has been extubated throughout night. hemoglobin 7.9. 2. Acute Non-ST elevated myocardial infarction: Heart catheterization showing multivessel coronary artery disease with thrombus in the LAD. Patient has been seen by vascular surgery and planning for open heart surgery on Friday. Continue IV heparin and Aggrastat per cardiology. Continue with IV fluids. Pulmonary service also consulted for preop clearance. 3. Acute kidney injury: Unclear patient has chronic kidney disease. Creatinine in March 2018 was 1.3. Continue with IV fluid hydration. Creatinine 1.42. Continue to monitor closely 4. Essential hypertension 5. Diabetes mellitus insulin-dependent. Continue Levemir. Add sliding scale coverage. Hemoglobin A1c 7.1 6. History of COPD: No evidence of exacerbation. continue albuterol nebulizer as needed 7. BPH continue Flomax 8. Atelectasis noted on chest x-ray order incentive spirometer 9. Obesity BMI 39.4 kg I performed an examination of the patient and discussed their management with the Nurse Practitioner. I have reviewed the Nurse Practitioner's notes and agree with the documented findings and plan of care
--- NOTE | 2018-08-18 11:01 | P.PN ---
Subjective Progress Note Date: 08/18/18 Principal diagnosis: Symptomatic multivessel coronary artery disease, status post CABG. Postoperative day #1 This is a 73-year-old white male patient of Dr. Joy Reagan, who presented emergency department on 08/13/2018 at 1840 evaluation of chest pain, associated with diaphoresis. The pain was non-radiating, and occurred after eating some spicy soup, patient was belching, and had some nausea. No vomiting. EKG showed some ST and T-wave abnormalities in the inferior, anterior, and lateral leads with T-wave inversion. Troponins were elevated at 0.128, 11.8, 11.8 and 9.270, patient was ruled in for non-ST elevated PA. Patient was placed on IV heparin, aspirin, Coreg, nitroglycerin and he underwent cardiac catheterization this afternoon with Dr. ALISHA Harper which showed a distal lesion of the left main of 70% before bifurcation into LAD and circumflex with calcification, 60% narrowing in the LAD at the origin of the first diagonal branch, 70% stenosis in the LAD at the origin of the second diagonal branch with probable thrombus, first obtuse marginal with 80-90% stenosis proximally, and 60% narrowing in the circumflex after the first obtuse marginal, total occlusion of the proximal RCA with some collateral circulation from the left system to the right. Patient has past medical history of coronary artery disease, COPD, diabetes mellitus type 2, hypertension, previous nicotine dependence, history of right nephrectomy in 1969 and chronic kidney disease. Patient was recommended to undergo coronary revascularization and cardiothoracic surgery has been consulted. We are seeing this patient for pulmonary evaluation. On 08/15/2018, the patient has no specific complaints. He is not having any chest pain. Resting comfortably in bed. Bedside spirometry was noted and there is no significant obstructive airway limitation. Chest x-ray was reviewed and showed some elevation of the right hemidiaphragm. Otherwise there is some subsegmental atelectatic changes in the lung bases. He is an ex- smoker. He is an obese male patient with a BMI of 39.0. No previous history of DVT or pulmonary embolism. No home O2. He is an ex-smoker. Overall performance status is good. On 08/16/2018 patient seen in follow-up on selective care unit. He sitting up on bed, in no acute distress, denies any shortness of breath. No chest pain, he is on heparin drip. Room air pulse ox is 94%, vital signs are stable. Lung sounds are clear. Patient is possibly scheduled for surgical revascularization surgery on 08/17/2018. No acute complaints overnight. Sinus rhythm. On 08/17/2018 patient seen in follow-up in the intensive care unit, he is status post three-vessel coronary artery bypass grafting, with CHAHAL to LAD, SVG to the PDA, and circumflex. Patient is currently sedated, intubated, on mechanical ventilator, and current vent settings are SIMV mode with a rate of 12 , tidal volume 500, FiO2 of 50% and PEEP of 10. IV drips include LR at a rate of 40, levothyroid at a rate of 10 mics per minute, Primacor is at 0.2 mics per kilo per minute, Precedex is at 0.2 mics per kilo per hour. Patient received 1500 of crystalloids and 1500 mL of 5% albumin, in addition to Cell Saver. [place] -Eliazar catheter is in place, with PA pressures of 50/32, CVP of 25, cardiac output of 7.3, and cardiac index of 3.6. Patient has 2 mediastinal chest tubes and left pleural chest tubes with small amount of sanguinous output. AV epicardial wires are in place, patient is currently being paced at her mode of AAI with a rate of 80 BPM. The blood work showed WBC of 8.6, hemoglobin of 8.5 , INR 1.2, sodium of 140, potassium is 4.8, chloride is 110, BUN of 21, creatinine is 1.09. Blood gas showed pO2 of 79, pCO2 of 53, pH of 7.25. Vent settings were adjusted, and rate was increased to IMV with a rate of 18 breaths per minute. Suero catheter is in place, and patient is producing 30-50 ML per hour. Reevaluated today on 08/18/2018, patient was extubated last night uneventfully. Presently on nasal cannula, in no form of distress. However he is on 8 L high flow nasal cannula. Hemodynamically stable, on Primacor and low dose levo fed. Patient is relatively asymptomatic, chest x-ray is reassuring. Hemoglobin today is 7.9. BUN is 24 creatinine is 1.42, slightly worse compared to yesterday. Objective - Vital Signs Vital signs: Vital Signs Temp 98.4 F 08/18/18 04:00 Pulse 80 08/18/18 09:00 Resp 27 H 08/18/18 09:00 BP 94/50 08/18/18 08:00 Pulse Ox 98 08/18/18 09:00 Intake & Output 08/17/18 08/18/18 08/18/18 18:59 06:59 18:59 Intake Total 705.301 3855.501 184.824 Output Total 2455 865 188 Balance -2152.837 671.501 -3.176 Weight 112.6 kg 112.6 kg Intake: IV 288.0 1276.0 158.5 ACETAMINOPHEN IV (For NPO 100 ) 1,000 mg In Empty Bag 1 bag @ 400 mls/hr IVPB Q6HR [facility] Rx#:[id number] Albumin Human 5% 250 ml 500 In Empty Bag 1 bag @ 250 mls/hr IVPB Q1HR PRN Rx#: [id number] Co/CI 40 60 10 Lactated Ringers 1,000 ml 200 490 120 @ 20 mls/hr IV .Q24H [facility] Rx#:[id number] Nitroglycerin-D5w Pmx 50 6.0 18.0 1.5 mg In Dextrose/Water 1 250ml.bag @ 5 MCG/MIN 1.5 mls/hr IV .Q24H [facility] Rx#: [id number] pressure bags 9 108 27 Intake, IV Titration 14.163 260.501 26.324 Amount Dexmedetomidine/0.9% NaCl 92.752 (Pmx) 400 mcg In Empty Bag 1 bag @ Titrate IV . Q0M [facility] Rx#:[id number] Insulin Regular 100 unit 34.669 1.974 In Sodium Chloride 0.9% 100 ml @ Per Protocol IV .Q0M [facility] Rx#:[id number] Insulin Regular 100 unit 0.433 In Sodium Chloride 0.9% 100 ml @ Titrate IV .Q0M ONE Rx#:[id number] Milrinone-D5w Pmx 20 mg 6.855 54.993 16.163 In Dextrose/Water 1 100ml .bag @ 0.1 MCG/KG/MIN 3. 04 mls/hr IV .Q24H [facility] Rx #:[id number] Norepinephrine 16 mg In 7.525 8.187 Sodium Chloride 0.9% 250 ml @ Titrate IV .Q0M [facility] Rx#:[id number] Norepinephrine 4 mg In 6.875 70.562 Sodium Chloride 0.9% 250 ml @ Titrate IV .Q0M [facility] Rx#:[id number] Output: Chest Tube Drainage 100 380 70 Left Pleural/Mediastinal 100 380 70 Urine 855 485 118 Estimated Blood Loss 1500 Other: Voiding Method Indwelling Catheter Indwelling Catheter ABP, PAP, CO, CI - Last Documented Arterial Blood Pressure 120/54 Pulmonary Artery Pressure 47/7 Cardiac Output 7.2 Cardiac Index 3.5 - Exam Physical Exam: Revealed a 73-year-old white male on nasal cannula, in no distress. HEENT:[Neck is supple.] [No neck masses.] [No thyromegaly.] [No JVD.] Chest: [Diminished breath sounds at the bases, patient is nonlabored. Able to achieve 500 mL on his incentive spirometer. Mediastinal and left sided chest tube remain on wall suction, 500 mL fluid since surgery. And no air leak. Cardiac Exam: [Normal S1 and S2, no S3 gallop, no murmur.] Abdomen: [Soft, nontender, no megaly, no rebound, no guarding, normal bowel sounds.] Extremities: [No clubbing, no edema, no cyanosis.] Neurological Exam: [No focal neurologic deficit. Psychiatric: Normal mood affect and mental status exam Lymphatics: No lymphadenopathy.] - Labs CBC & Chem 7: 08/18/18 04:00 08/18/18 04:00 Labs: Abnormal Lab Results - Last 24 Hours (Table) 08/16/18 08/17/18 08/17/18 Range/Units 13:55 08:54 10:11 RBC (4.30-5.90) m/uL Hgb (13.0-17.5) gm/dL Hct (39.0-53.0) % Plt Count (150-450) k/uL Lymphocytes # (1.0-4.8) k/uL INR (<1.2) APTT (22.0-30.0) sec ABG pH 7.33 L 7.28 L (7.35-7.45) ABG pCO2 50 H (35-45) mmHg ABG pO2 320 H (83-108) mmHg ABG Total CO2 25 H 25 H (19-24) mmol/L ABG O2 Saturation 100.0 H (94-97) % ABG Hematocrit (34.0-46.0) % ABG Potassium 4.8 H 5.1 H (3.4-4.5) mmol/L ABG Ionized Calcium (4.5-5.3) mg/dL ABG Glucose 151 H 171 H (75-99) mg/dL ABG Lactic Acid (0.5-1.6) mmol/L Hemoglobin 12.5 L 11.7 L (13.0-17.5) gm/dL Potassium (3.5-5.1) mmol/L Chloride (98-107) mmol/L BUN (9-20) mg/dL Creatinine (0.66-1.25) mg/dL Glucose (74-99) mg/dL POC Glucose (mg/dL) (75-99) mg/dL Ionized Calcium Yudith (4.5-5.3) mg/dL AST (17-59) U/L Alkaline Phosphatase (38-126) U/L Total Protein (6.3-8.2) g/dL Albumin (3.5-5.0) g/dL Arterial Blood Potassium 4.8 H 5.1 H (3.4-4.5) mmol/L Arterial Blood Glucose 151 H 171 H (75-99) mg/dL Crossmatch See Detail 08/17/18 08/17/18 08/17/18 Range/Units 11:01 11:40 12:20 RBC (4.30-5.90) m/uL Hgb (13.0-17.5) gm/dL Hct (39.0-53.0) % Plt Count (150-450) k/uL Lymphocytes # (1.0-4.8) k/uL INR (<1.2) APTT (22.0-30.0) sec ABG pH (7.35-7.45) ABG pCO2 (35-45) mmHg ABG pO2 >420 H 297 H 373 H (83-108) mmHg ABG Total CO2 25 H 26 H 26 H (19-24) mmol/L ABG O2 Saturation 100.0 H 100.0 H 100.0 H (94-97) % ABG Hematocrit 26 L 24 L 23 L (34.0-46.0) % ABG Potassium 4.8 H 5.6 H 5.3 H (3.4-4.5) mmol/L ABG Ionized Calcium 4.2 L 4.2 L 4.2 L (4.5-5.3) mg/dL ABG Glucose 149 H 231 H 232 H (75-99) mg/dL ABG Lactic Acid (0.5-1.6) mmol/L Hemoglobin 8.5 L 7.7 L 7.6 L (13.0-17.5) gm/dL Potassium (3.5-5.1) mmol/L Chloride (98-107) mmol/L BUN (9-20) mg/dL Creatinine (0.66-1.25) mg/dL Glucose (74-99) mg/dL POC Glucose (mg/dL) (75-99) mg/dL Ionized Calcium Yudith (4.5-5.3) mg/dL AST (17-59) U/L Alkaline Phosphatase (38-126) U/L Total Protein (6.3-8.2) g/dL Albumin (3.5-5.0) g/dL Arterial Blood Potassium 4.8 H 5.6 H 5.3 H (3.4-4.5) mmol/L Arterial Blood Glucose 149 H 231 H 232 H (75-99) mg/dL Crossmatch 08/17/18 08/17/18 08/17/18 Range/Units 12:58 14:05 15:33 RBC (4.30-5.90) m/uL Hgb (13.0-17.5) gm/dL Hct (39.0-53.0) % Plt Count (150-450) k/uL Lymphocytes # (1.0-4.8) k/uL INR (<1.2) APTT (22.0-30.0) sec ABG pH 7.34 L (7.35-7.45) ABG pCO2 47 H (35-45) mmHg ABG pO2 >420 H 111 H (83-108) mmHg ABG Total CO2 25 H 26 H (19-24) mmol/L ABG O2 Saturation 100.0 H 98.7 H (94-97) % ABG Hematocrit 23 L 28 L (34.0-46.0) % ABG Potassium 5.0 H (3.4-4.5) mmol/L ABG Ionized Calcium 4.1 L (4.5-5.3) mg/dL ABG Glucose 194 H 155 H (75-99) mg/dL ABG Lactic Acid 1.7 H (0.5-1.6) mmol/L Hemoglobin 7.5 L 9.0 L (13.0-17.5) gm/dL Potassium (3.5-5.1) mmol/L Chloride (98-107) mmol/L BUN (9-20) mg/dL Creatinine (0.66-1.25) mg/dL Glucose (74-99) mg/dL POC Glucose (mg/dL) 116 H (75-99) mg/dL Ionized Calcium Yudith (4.5-5.3) mg/dL AST (17-59) U/L Alkaline Phosphatase (38-126) U/L Total Protein (6.3-8.2) g/dL Albumin (3.5-5.0) g/dL Arterial Blood Potassium 5.0 H (3.4-4.5) mmol/L Arterial Blood Glucose 194 H 155 H (75-99) mg/dL Crossmatch 08/17/18 08/17/18 08/17/18 Range/Units 15:40 15:40 15:40 RBC 2.83 L (4.30-5.90) m/uL Hgb 8.5 L D (13.0-17.5) gm/dL Hct 26.3 L (39.0-53.0) % Plt Count 101 L (150-450) k/uL Lymphocytes # 0.4 L (1.0-4.8) k/uL INR 1.2 H (<1.2) APTT 31.3 H (22.0-30.0) sec ABG pH (7.35-7.45) ABG pCO2 (35-45) mmHg ABG pO2 (83-108) mmHg ABG Total CO2 (19-24) mmol/L ABG O2 Saturation (94-97) % ABG Hematocrit (34.0-46.0) % ABG Potassium (3.4-4.5) mmol/L ABG Ionized Calcium (4.5-5.3) mg/dL ABG Glucose (75-99) mg/dL ABG Lactic Acid (0.5-1.6) mmol/L Hemoglobin (13.0-17.5) gm/dL Potassium (3.5-5.1) mmol/L Chloride 110 H (98-107) mmol/L BUN 21 H (9-20) mg/dL Creatinine (0.66-1.25) mg/dL Glucose 105 H (74-99) mg/dL POC Glucose (mg/dL) (75-99) mg/dL Ionized Calcium Yudith 5.7 H (4.5-5.3) mg/dL AST 65 H (17-59) U/L Alkaline Phosphatase 28 L (38-126) U/L Total Protein 4.9 L (6.3-8.2) g/dL Albumin 3.1 L (3.5-5.0) g/dL Arterial Blood Potassium (3.4-4.5) mmol/L Arterial Blood Glucose (75-99) mg/dL Crossmatch 08/17/18 08/17/18 08/17/18 Range/Units 16:07 16:07 16:43 RBC (4.30-5.90) m/uL Hgb (13.0-17.5) gm/dL Hct (39.0-53.0) % Plt Count (150-450) k/uL Lymphocytes # (1.0-4.8) k/uL INR (<1.2) APTT (22.0-30.0) sec ABG pH 7.25 L 7.30 L (7.35-7.45) ABG pCO2 53 H 48 H (35-45) mmHg ABG pO2 79 L 78 L (83-108) mmHg ABG Total CO2 25 H 25 H (19-24) mmol/L ABG O2 Saturation (94-97) % ABG Hematocrit (34.0-46.0) % ABG Potassium (3.4-4.5) mmol/L ABG Ionized Calcium (4.5-5.3) mg/dL ABG Glucose (75-99) mg/dL ABG Lactic Acid (0.5-1.6) mmol/L Hemoglobin (13.0-17.5) gm/dL Potassium (3.5-5.1) mmol/L Chloride (98-107) mmol/L BUN (9-20) mg/dL Creatinine (0.66-1.25) mg/dL Glucose (74-99) mg/dL POC Glucose (mg/dL) 115 H (75-99) mg/dL Ionized Calcium Yudith (4.5-5.3) mg/dL AST (17-59) U/L Alkaline Phosphatase (38-126) U/L Total Protein (6.3-8.2) g/dL Albumin (3.5-5.0) g/dL Arterial Blood Potassium (3.4-4.5) mmol/L Arterial Blood Glucose (75-99) mg/dL Crossmatch 08/17/18 08/17/18 08/17/18 Range/Units 16:57 18:00 18:42 RBC 2.78 L (4.30-5.90) m/uL Hgb 8.0 L (13.0-17.5) gm/dL Hct 25.4 L (39.0-53.0) % Plt Count 93 L (150-450) k/uL Lymphocytes # 0.3 L (1.0-4.8) k/uL INR (<1.2) APTT (22.0-30.0) sec ABG pH (7.35-7.45) ABG pCO2 (35-45) mmHg ABG pO2 (83-108) mmHg ABG Total CO2 (19-24) mmol/L ABG O2 Saturation (94-97) % ABG Hematocrit (34.0-46.0) % ABG Potassium (3.4-4.5) mmol/L ABG Ionized Calcium (4.5-5.3) mg/dL ABG Glucose (75-99) mg/dL ABG Lactic Acid (0.5-1.6) mmol/L Hemoglobin (13.0-17.5) gm/dL Potassium (3.5-5.1) mmol/L Chloride (98-107) mmol/L BUN (9-20) mg/dL Creatinine (0.66-1.25) mg/dL Glucose (74-99) mg/dL POC Glucose (mg/dL) 104 H 123 H (75-99) mg/dL Ionized Calcium Yudith (4.5-5.3) mg/dL AST (17-59) U/L Alkaline Phosphatase (38-126) U/L Total Protein (6.3-8.2) g/dL Albumin (3.5-5.0) g/dL Arterial Blood Potassium (3.4-4.5) mmol/L Arterial Blood Glucose (75-99) mg/dL Crossmatch 08/17/18 08/17/18 08/17/18 Range/Units 19:20 19:59 20:08 RBC (4.30-5.90) m/uL Hgb (13.0-17.5) gm/dL Hct (39.0-53.0) % Plt Count (150-450) k/uL Lymphocytes # (1.0-4.8) k/uL INR (<1.2) APTT (22.0-30.0) sec ABG pH 7.32 L (7.35-7.45) ABG pCO2 (35-45) mmHg ABG pO2 (83-108) mmHg ABG Total CO2 (19-24) mmol/L ABG O2 Saturation (94-97) % ABG Hematocrit (34.0-46.0) % ABG Potassium (3.4-4.5) mmol/L ABG Ionized Calcium (4.5-5.3) mg/dL ABG Glucose (75-99) mg/dL ABG Lactic Acid (0.5-1.6) mmol/L Hemoglobin (13.0-17.5) gm/dL Potassium (3.5-5.1) mmol/L Chloride (98-107) mmol/L BUN (9-20) mg/dL Creatinine (0.66-1.25) mg/dL Glucose (74-99) mg/dL POC Glucose (mg/dL) 141 H 152 H (75-99) mg/dL Ionized Calcium Yudith (4.5-5.3) mg/dL AST (17-59) U/L Alkaline Phosphatase (38-126) U/L Total Protein (6.3-8.2) g/dL Albumin (3.5-5.0) g/dL Arterial Blood Potassium (3.4-4.5) mmol/L Arterial Blood Glucose (75-99) mg/dL Crossmatch 08/17/18 08/17/18 08/17/18 Range/Units 21:02 21:56 21:58 RBC 2.78 L (4.30-5.90) m/uL Hgb 8.1 L (13.0-17.5) gm/dL Hct 25.7 L (39.0-53.0) % Plt Count 91 L (150-450) k/uL Lymphocytes # 0.4 L (1.0-4.8) k/uL INR (<1.2) APTT (22.0-30.0) sec ABG pH (7.35-7.45) ABG pCO2 (35-45) mmHg ABG pO2 (83-108) mmHg ABG Total CO2 (19-24) mmol/L ABG O2 Saturation (94-97) % ABG Hematocrit (34.0-46.0) % ABG Potassium (3.4-4.5) mmol/L ABG Ionized Calcium (4.5-5.3) mg/dL ABG Glucose (75-99) mg/dL ABG Lactic Acid (0.5-1.6) mmol/L Hemoglobin (13.0-17.5) gm/dL Potassium (3.5-5.1) mmol/L Chloride (98-107) mmol/L BUN (9-20) mg/dL Creatinine (0.66-1.25) mg/dL Glucose (74-99) mg/dL POC Glucose (mg/dL) 157 H 166 H (75-99) mg/dL Ionized Calcium Yudith (4.5-5.3) mg/dL AST (17-59) U/L Alkaline Phosphatase (38-126) U/L Total Protein (6.3-8.2) g/dL Albumin (3.5-5.0) g/dL Arterial Blood Potassium (3.4-4.5) mmol/L Arterial Blood Glucose (75-99) mg/dL Crossmatch 08/17/18 08/17/18 08/17/18 Range/Units 21:58 23:01 23:58 RBC (4.30-5.90) m/uL Hgb (13.0-17.5) gm/dL Hct (39.0-53.0) % Plt Count (150-450) k/uL Lymphocytes # (1.0-4.8) k/uL INR (<1.2) APTT (22.0-30.0) sec ABG pH (7.35-7.45) ABG pCO2 (35-45) mmHg ABG pO2 (83-108) mmHg ABG Total CO2 (19-24) mmol/L ABG O2 Saturation (94-97) % ABG Hematocrit (34.0-46.0) % ABG Potassium (3.4-4.5) mmol/L ABG Ionized Calcium (4.5-5.3) mg/dL ABG Glucose (75-99) mg/dL ABG Lactic Acid (0.5-1.6) mmol/L Hemoglobin (13.0-17.5) gm/dL Potassium 5.8 H (3.5-5.1) mmol/L Chloride 109 H (98-107) mmol/L BUN 22 H (9-20) mg/dL Creatinine 1.32 H (0.66-1.25) mg/dL Glucose 152 H (74-99) mg/dL POC Glucose (mg/dL) 144 H 163 H (75-99) mg/dL Ionized Calcium Yudith (4.5-5.3) mg/dL AST (17-59) U/L Alkaline Phosphatase (38-126) U/L Total Protein (6.3-8.2) g/dL Albumin (3.5-5.0) g/dL Arterial Blood Potassium (3.4-4.5) mmol/L Arterial Blood Glucose (75-99) mg/dL Crossmatch 08/18/18 08/18/18 08/18/18 Range/Units 01:02 02:04 03:00 RBC (4.30-5.90) m/uL Hgb (13.0-17.5) gm/dL Hct (39.0-53.0) % Plt Count (150-450) k/uL Lymphocytes # (1.0-4.8) k/uL INR (<1.2) APTT (22.0-30.0) sec ABG pH (7.35-7.45) ABG pCO2 (35-45) mmHg ABG pO2 (83-108) mmHg ABG Total CO2 (19-24) mmol/L ABG O2 Saturation (94-97) % ABG Hematocrit (34.0-46.0) % ABG Potassium (3.4-4.5) mmol/L ABG Ionized Calcium (4.5-5.3) mg/dL ABG Glucose (75-99) mg/dL ABG Lactic Acid (0.5-1.6) mmol/L Hemoglobin (13.0-17.5) gm/dL Potassium (3.5-5.1) mmol/L Chloride (98-107) mmol/L BUN (9-20) mg/dL Creatinine (0.66-1.25) mg/dL Glucose (74-99) mg/dL POC Glucose (mg/dL) 138 H 114 H 123 H (75-99) mg/dL Ionized Calcium Yudith (4.5-5.3) mg/dL AST (17-59) U/L Alkaline Phosphatase (38-126) U/L Total Protein (6.3-8.2) g/dL Albumin (3.5-5.0) g/dL Arterial Blood Potassium (3.4-4.5) mmol/L Arterial Blood Glucose (75-99) mg/dL Crossmatch 08/18/18 08/18/18 08/18/18 Range/Units 04:00 04:00 04:00 RBC 2.73 L (4.30-5.90) m/uL Hgb 7.9 L (13.0-17.5) gm/dL Hct 24.7 L (39.0-53.0) % Plt Count 105 L (150-450) k/uL Lymphocytes # 0.4 L (1.0-4.8) k/uL INR (<1.2) APTT 34.8 H (22.0-30.0) sec ABG pH (7.35-7.45) ABG pCO2 (35-45) mmHg ABG pO2 (83-108) mmHg ABG Total CO2 (19-24) mmol/L ABG O2 Saturation (94-97) % ABG Hematocrit (34.0-46.0) % ABG Potassium (3.4-4.5) mmol/L ABG Ionized Calcium (4.5-5.3) mg/dL ABG Glucose (75-99) mg/dL ABG Lactic Acid (0.5-1.6) mmol/L Hemoglobin (13.0-17.5) gm/dL Potassium (3.5-5.1) mmol/L Chloride 108 H (98-107) mmol/L BUN 24 H (9-20) mg/dL Creatinine 1.42 H (0.66-1.25) mg/dL Glucose 105 H (74-99) mg/dL POC Glucose (mg/dL) (75-99) mg/dL Ionized Calcium Yudith (4.5-5.3) mg/dL AST 75 H (17-59) U/L Alkaline Phosphatase 30 L (38-126) U/L Total Protein 5.1 L (6.3-8.2) g/dL Albumin (3.5-5.0) g/dL Arterial Blood Potassium (3.4-4.5) mmol/L Arterial Blood Glucose (75-99) mg/dL Crossmatch 08/18/18 08/18/18 08/18/18 Range/Units 04:05 05:01 06:18 RBC (4.30-5.90) m/uL Hgb (13.0-17.5) gm/dL Hct (39.0-53.0) % Plt Count (150-450) k/uL Lymphocytes # (1.0-4.8) k/uL INR (<1.2) APTT (22.0-30.0) sec ABG pH (7.35-7.45) ABG pCO2 (35-45) mmHg ABG pO2 (83-108) mmHg ABG Total CO2 (19-24) mmol/L ABG O2 Saturation (94-97) % ABG Hematocrit (34.0-46.0) % ABG Potassium (3.4-4.5) mmol/L ABG Ionized Calcium (4.5-5.3) mg/dL ABG Glucose (75-99) mg/dL ABG Lactic Acid (0.5-1.6) mmol/L Hemoglobin (13.0-17.5) gm/dL Potassium (3.5-5.1) mmol/L Chloride (98-107) mmol/L BUN (9-20) mg/dL Creatinine (0.66-1.25) mg/dL Glucose (74-99) mg/dL POC Glucose (mg/dL) 113 H 128 H 120 H (75-99) mg/dL Ionized Calcium Yudith (4.5-5.3) mg/dL AST (17-59) U/L Alkaline Phosphatase (38-126) U/L Total Protein (6.3-8.2) g/dL Albumin (3.5-5.0) g/dL Arterial Blood Potassium (3.4-4.5) mmol/L Arterial Blood Glucose (75-99) mg/dL Crossmatch 08/18/18 08/18/18 08/18/18 Range/Units 07:04 07:56 09:10 RBC (4.30-5.90) m/uL Hgb (13.0-17.5) gm/dL Hct (39.0-53.0) % Plt Count (150-450) k/uL Lymphocytes # (1.0-4.8) k/uL INR (<1.2) APTT (22.0-30.0) sec ABG pH (7.35-7.45) ABG pCO2 (35-45) mmHg ABG pO2 (83-108) mmHg ABG Total CO2 (19-24) mmol/L ABG O2 Saturation (94-97) % ABG Hematocrit (34.0-46.0) % ABG Potassium (3.4-4.5) mmol/L ABG Ionized Calcium (4.5-5.3) mg/dL ABG Glucose (75-99) mg/dL ABG Lactic Acid (0.5-1.6) mmol/L Hemoglobin (13.0-17.5) gm/dL Potassium (3.5-5.1) mmol/L Chloride (98-107) mmol/L BUN (9-20) mg/dL Creatinine (0.66-1.25) mg/dL Glucose (74-99) mg/dL POC Glucose (mg/dL) 104 H 122 H 116 H (75-99) mg/dL Ionized Calcium Yudith (4.5-5.3) mg/dL AST (17-59) U/L Alkaline Phosphatase (38-126) U/L Total Protein (6.3-8.2) g/dL Albumin (3.5-5.0) g/dL Arterial Blood Potassium (3.4-4.5) mmol/L Arterial Blood Glucose (75-99) mg/dL Crossmatch Assessment and Plan Assessment: Impression: #1. Acute non-ST elevated myocardial infarction. #2. Multivessel coronary artery disease, involving 70% left main stenosis, 70% LAD stenosis with thrombus, age 85% OM stenosis, status post three-vessel coronary artery bypass grafting with CHAHAL to LAD, SVG to the PDA and circumflex , postop day #1 #3. Acute blood loss anemia, an expected outcome of open heart surgery #4 Ischemic cardiomyopathy, echocardiogram showed moderate global hypokinesis of LV, and severely impaired left ventricular systolic function with EF between 20-25% #5. Diabetes mellitus type 2, insulin-dependent #COPD, not on home oxygen, currently stable #7. History of right nephrectomy, and history of CKD #8. History of nicotine dependence, in remission. Patient quit smoking 45 years ago, but prior to that smoked up to 3 packs a day for 30 years #10 Hypertension 11 History of BPH, on Flomax Recommendation: Continue O2 at high flow nasal cannula, titrate accordingly, continue incentive spirometry, early ambulation, we'll continue to follow. Time with Patient: Less than 30
[2018-08-18 11:08] LABS: Glucose,Whole Blood 101 mg/dL (75-99)
[2018-08-18 12:10] LABS: Glucose,Whole Blood 113 mg/dL (75-99)
[2018-08-18 13:09] LABS: Glucose,Whole Blood 115 mg/dL (75-99)
--- NOTE | 2018-08-18 13:35 | P.PN ---
Subjective Patient is status post coronary artery bypass grafting. He is extubated. He is up in a chair. Respirations in the 20s, pulse rate in the 80s Blood pressure 94/50 mid of his mercury Breath sounds are reduced bilaterally with scattered crackles Heart sounds are soft Impression Coronary artery disease status post coronary artery bypass grafting Suggest continue antiplatelet agents statins and gradually reintroduce beta blockers Objective - Vital Signs Vital signs: Vital Signs Temp 98.4 F 08/18/18 04:00 Pulse 80 08/18/18 13:00 Resp 23 08/18/18 13:00 BP 94/50 08/18/18 08:00 Pulse Ox 94 L 08/18/18 13:00 Intake & Output 08/17/18 08/18/18 08/18/18 18:59 06:59 18:59 Intake Total 669.025 3589.501 292.824 Output Total 2455 865 403 Balance -2152.837 671.501 -110.176 Weight 112.6 kg 112.6 kg Intake: IV 288.0 1276.0 266.5 ACETAMINOPHEN IV (For NPO 100 ) 1,000 mg In Empty Bag 1 bag @ 400 mls/hr IVPB Q6HR [facility] Rx#:[id number] Albumin Human 5% 250 ml 500 In Empty Bag 1 bag @ 250 mls/hr IVPB Q1HR PRN Rx#: [id number] Co/CI 40 60 30 Lactated Ringers 1,000 ml 200 490 190 @ 20 mls/hr IV .Q24H [facility] Rx#:[id number] Nitroglycerin-D5w Pmx 50 6.0 18.0 1.5 mg In Dextrose/Water 1 250ml.bag @ 5 MCG/MIN 1.5 mls/hr IV .Q24H [facility] Rx#: [id number] pressure bags 9 108 45 Intake, IV Titration 14.163 260.501 26.324 Amount Dexmedetomidine/0.9% NaCl 92.752 (Pmx) 400 mcg In Empty Bag 1 bag @ Titrate IV . Q0M [facility] Rx#:[id number] Insulin Regular 100 unit 34.669 1.974 In Sodium Chloride 0.9% 100 ml @ Per Protocol IV .Q0M [facility] Rx#:[id number] Insulin Regular 100 unit 0.433 In Sodium Chloride 0.9% 100 ml @ Titrate IV .Q0M [facility] Rx#:[id number] Milrinone-D5w Pmx 20 mg 6.855 54.993 16.163 In Dextrose/Water 1 100ml .bag @ 0.1 MCG/KG/MIN 3. 04 mls/hr IV .Q24H [facility] Rx #:[id number] Norepinephrine 16 mg In 7.525 8.187 Sodium Chloride 0.9% 250 ml @ Titrate IV .Q0M [facility] Rx#:[id number] Norepinephrine 4 mg In 6.875 70.562 Sodium Chloride 0.9% 250 ml @ Titrate IV .Q0M [facility] Rx#:[id number] Output: Chest Tube Drainage 100 380 100 Left Pleural/Mediastinal 100 380 100 Urine 855 485 303 Estimated Blood Loss 1500 Other: Voiding Method Indwelling Catheter Indwelling Catheter Indwelling Catheter ABP, PAP, CO, CI - Last Documented Arterial Blood Pressure 108/50 Pulmonary Artery Pressure 49/25 Cardiac Output 5.7 Cardiac Index 2.8 - Labs CBC & Chem 7: 08/18/18 04:00 08/18/18 04:00 Labs: Abnormal Lab Results - Last 24 Hours (Table) 08/16/18 08/17/18 08/17/18 Range/Units 13:55 12:58 14:05 RBC (4.30-5.90) m/uL Hgb (13.0-17.5) gm/dL Hct (39.0-53.0) % Plt Count (150-450) k/uL Lymphocytes # (1.0-4.8) k/uL INR (<1.2) APTT (22.0-30.0) sec ABG pH 7.34 L (7.35-7.45) ABG pCO2 47 H (35-45) mmHg ABG pO2 >420 H 111 H (83-108) mmHg ABG Total CO2 25 H 26 H (19-24) mmol/L ABG O2 Saturation 100.0 H 98.7 H (94-97) % ABG Hematocrit 23 L 28 L (34.0-46.0) % ABG Potassium 5.0 H (3.4-4.5) mmol/L ABG Ionized Calcium 4.1 L (4.5-5.3) mg/dL ABG Glucose 194 H 155 H (75-99) mg/dL ABG Lactic Acid 1.7 H (0.5-1.6) mmol/L Hemoglobin 7.5 L 9.0 L (13.0-17.5) gm/dL Potassium (3.5-5.1) mmol/L Chloride (98-107) mmol/L BUN (9-20) mg/dL Creatinine (0.66-1.25) mg/dL Glucose (74-99) mg/dL POC Glucose (mg/dL) (75-99) mg/dL Ionized Calcium Yudith (4.5-5.3) mg/dL AST (17-59) U/L Alkaline Phosphatase (38-126) U/L Total Protein (6.3-8.2) g/dL Albumin (3.5-5.0) g/dL Arterial Blood Potassium 5.0 H (3.4-4.5) mmol/L Arterial Blood Glucose 194 H 155 H (75-99) mg/dL Crossmatch See Detail 08/17/18 08/17/18 08/17/18 Range/Units 15:33 15:40 15:40 RBC 2.83 L (4.30-5.90) m/uL Hgb 8.5 L D (13.0-17.5) gm/dL Hct 26.3 L (39.0-53.0) % Plt Count 101 L (150-450) k/uL Lymphocytes # 0.4 L (1.0-4.8) k/uL INR (<1.2) APTT (22.0-30.0) sec ABG pH (7.35-7.45) ABG pCO2 (35-45) mmHg ABG pO2 (83-108) mmHg ABG Total CO2 (19-24) mmol/L ABG O2 Saturation (94-97) % ABG Hematocrit (34.0-46.0) % ABG Potassium (3.4-4.5) mmol/L ABG Ionized Calcium (4.5-5.3) mg/dL ABG Glucose (75-99) mg/dL ABG Lactic Acid (0.5-1.6) mmol/L Hemoglobin (13.0-17.5) gm/dL Potassium (3.5-5.1) mmol/L Chloride 110 H (98-107) mmol/L BUN 21 H (9-20) mg/dL Creatinine (0.66-1.25) mg/dL Glucose 105 H (74-99) mg/dL POC Glucose (mg/dL) 116 H (75-99) mg/dL Ionized Calcium Yudith 5.7 H (4.5-5.3) mg/dL AST 65 H (17-59) U/L Alkaline Phosphatase 28 L (38-126) U/L Total Protein 4.9 L (6.3-8.2) g/dL Albumin 3.1 L (3.5-5.0) g/dL Arterial Blood Potassium (3.4-4.5) mmol/L Arterial Blood Glucose (75-99) mg/dL Crossmatch 08/17/18 08/17/18 08/17/18 Range/Units 15:40 16:07 16:07 RBC (4.30-5.90) m/uL Hgb (13.0-17.5) gm/dL Hct (39.0-53.0) % Plt Count (150-450) k/uL Lymphocytes # (1.0-4.8) k/uL INR 1.2 H (<1.2) APTT 31.3 H (22.0-30.0) sec ABG pH 7.25 L (7.35-7.45) ABG pCO2 53 H (35-45) mmHg ABG pO2 79 L (83-108) mmHg ABG Total CO2 25 H (19-24) mmol/L ABG O2 Saturation (94-97) % ABG Hematocrit (34.0-46.0) % ABG Potassium (3.4-4.5) mmol/L ABG Ionized Calcium (4.5-5.3) mg/dL ABG Glucose (75-99) mg/dL ABG Lactic Acid (0.5-1.6) mmol/L Hemoglobin (13.0-17.5) gm/dL Potassium (3.5-5.1) mmol/L Chloride (98-107) mmol/L BUN (9-20) mg/dL Creatinine (0.66-1.25) mg/dL Glucose (74-99) mg/dL POC Glucose (mg/dL) 115 H (75-99) mg/dL Ionized Calcium Yudith (4.5-5.3) mg/dL AST (17-59) U/L Alkaline Phosphatase (38-126) U/L Total Protein (6.3-8.2) g/dL Albumin (3.5-5.0) g/dL Arterial Blood Potassium (3.4-4.5) mmol/L Arterial Blood Glucose (75-99) mg/dL Crossmatch 08/17/18 08/17/18 08/17/18 Range/Units 16:43 16:57 18:00 RBC (4.30-5.90) m/uL Hgb (13.0-17.5) gm/dL Hct (39.0-53.0) % Plt Count (150-450) k/uL Lymphocytes # (1.0-4.8) k/uL INR (<1.2) APTT (22.0-30.0) sec ABG pH 7.30 L (7.35-7.45) ABG pCO2 48 H (35-45) mmHg ABG pO2 78 L (83-108) mmHg ABG Total CO2 25 H (19-24) mmol/L ABG O2 Saturation (94-97) % ABG Hematocrit (34.0-46.0) % ABG Potassium (3.4-4.5) mmol/L ABG Ionized Calcium (4.5-5.3) mg/dL ABG Glucose (75-99) mg/dL ABG Lactic Acid (0.5-1.6) mmol/L Hemoglobin (13.0-17.5) gm/dL Potassium (3.5-5.1) mmol/L Chloride (98-107) mmol/L BUN (9-20) mg/dL Creatinine (0.66-1.25) mg/dL Glucose (74-99) mg/dL POC Glucose (mg/dL) 104 H 123 H (75-99) mg/dL Ionized Calcium Yudith (4.5-5.3) mg/dL AST (17-59) U/L Alkaline Phosphatase (38-126) U/L Total Protein (6.3-8.2) g/dL Albumin (3.5-5.0) g/dL Arterial Blood Potassium (3.4-4.5) mmol/L Arterial Blood Glucose (75-99) mg/dL Crossmatch 08/17/18 08/17/18 08/17/18 Range/Units 18:42 19:20 19:59 RBC 2.78 L (4.30-5.90) m/uL Hgb 8.0 L (13.0-17.5) gm/dL Hct 25.4 L (39.0-53.0) % Plt Count 93 L (150-450) k/uL Lymphocytes # 0.3 L (1.0-4.8) k/uL INR (<1.2) APTT (22.0-30.0) sec ABG pH 7.32 L (7.35-7.45) ABG pCO2 (35-45) mmHg ABG pO2 (83-108) mmHg ABG Total CO2 (19-24) mmol/L ABG O2 Saturation (94-97) % ABG Hematocrit (34.0-46.0) % ABG Potassium (3.4-4.5) mmol/L ABG Ionized Calcium (4.5-5.3) mg/dL ABG Glucose (75-99) mg/dL ABG Lactic Acid (0.5-1.6) mmol/L Hemoglobin (13.0-17.5) gm/dL Potassium (3.5-5.1) mmol/L Chloride (98-107) mmol/L BUN (9-20) mg/dL Creatinine (0.66-1.25) mg/dL Glucose (74-99) mg/dL POC Glucose (mg/dL) 141 H (75-99) mg/dL Ionized Calcium Yudith (4.5-5.3) mg/dL AST (17-59) U/L Alkaline Phosphatase (38-126) U/L Total Protein (6.3-8.2) g/dL Albumin (3.5-5.0) g/dL Arterial Blood Potassium (3.4-4.5) mmol/L Arterial Blood Glucose (75-99) mg/dL Crossmatch 08/17/18 08/17/18 08/17/18 Range/Units 20:08 21:02 21:56 RBC (4.30-5.90) m/uL Hgb (13.0-17.5) gm/dL Hct (39.0-53.0) % Plt Count (150-450) k/uL Lymphocytes # (1.0-4.8) k/uL INR (<1.2) APTT (22.0-30.0) sec ABG pH (7.35-7.45) ABG pCO2 (35-45) mmHg ABG pO2 (83-108) mmHg ABG Total CO2 (19-24) mmol/L ABG O2 Saturation (94-97) % ABG Hematocrit (34.0-46.0) % ABG Potassium (3.4-4.5) mmol/L ABG Ionized Calcium (4.5-5.3) mg/dL ABG Glucose (75-99) mg/dL ABG Lactic Acid (0.5-1.6) mmol/L Hemoglobin (13.0-17.5) gm/dL Potassium (3.5-5.1) mmol/L Chloride (98-107) mmol/L BUN (9-20) mg/dL Creatinine (0.66-1.25) mg/dL Glucose (74-99) mg/dL POC Glucose (mg/dL) 152 H 157 H 166 H (75-99) mg/dL Ionized Calcium Yudith (4.5-5.3) mg/dL AST (17-59) U/L Alkaline Phosphatase (38-126) U/L Total Protein (6.3-8.2) g/dL Albumin (3.5-5.0) g/dL Arterial Blood Potassium (3.4-4.5) mmol/L Arterial Blood Glucose (75-99) mg/dL Crossmatch 08/17/18 08/17/18 08/17/18 Range/Units 21:58 21:58 23:01 RBC 2.78 L (4.30-5.90) m/uL Hgb 8.1 L (13.0-17.5) gm/dL Hct 25.7 L (39.0-53.0) % Plt Count 91 L (150-450) k/uL Lymphocytes # 0.4 L (1.0-4.8) k/uL INR (<1.2) APTT (22.0-30.0) sec ABG pH (7.35-7.45) ABG pCO2 (35-45) mmHg ABG pO2 (83-108) mmHg ABG Total CO2 (19-24) mmol/L ABG O2 Saturation (94-97) % ABG Hematocrit (34.0-46.0) % ABG Potassium (3.4-4.5) mmol/L ABG Ionized Calcium (4.5-5.3) mg/dL ABG Glucose (75-99) mg/dL ABG Lactic Acid (0.5-1.6) mmol/L Hemoglobin (13.0-17.5) gm/dL Potassium 5.8 H (3.5-5.1) mmol/L Chloride 109 H (98-107) mmol/L BUN 22 H (9-20) mg/dL Creatinine 1.32 H (0.66-1.25) mg/dL Glucose 152 H (74-99) mg/dL POC Glucose (mg/dL) 144 H (75-99) mg/dL Ionized Calcium Yudith (4.5-5.3) mg/dL AST (17-59) U/L Alkaline Phosphatase (38-126) U/L Total Protein (6.3-8.2) g/dL Albumin (3.5-5.0) g/dL Arterial Blood Potassium (3.4-4.5) mmol/L Arterial Blood Glucose (75-99) mg/dL Crossmatch 08/17/18 08/18/18 08/18/18 Range/Units 23:58 01:02 02:04 RBC (4.30-5.90) m/uL Hgb (13.0-17.5) gm/dL Hct (39.0-53.0) % Plt Count (150-450) k/uL Lymphocytes # (1.0-4.8) k/uL INR (<1.2) APTT (22.0-30.0) sec ABG pH (7.35-7.45) ABG pCO2 (35-45) mmHg ABG pO2 (83-108) mmHg ABG Total CO2 (19-24) mmol/L ABG O2 Saturation (94-97) % ABG Hematocrit (34.0-46.0) % ABG Potassium (3.4-4.5) mmol/L ABG Ionized Calcium (4.5-5.3) mg/dL ABG Glucose (75-99) mg/dL ABG Lactic Acid (0.5-1.6) mmol/L Hemoglobin (13.0-17.5) gm/dL Potassium (3.5-5.1) mmol/L Chloride (98-107) mmol/L BUN (9-20) mg/dL Creatinine (0.66-1.25) mg/dL Glucose (74-99) mg/dL POC Glucose (mg/dL) 163 H 138 H 114 H (75-99) mg/dL Ionized Calcium Yudith (4.5-5.3) mg/dL AST (17-59) U/L Alkaline Phosphatase (38-126) U/L Total Protein (6.3-8.2) g/dL Albumin (3.5-5.0) g/dL Arterial Blood Potassium (3.4-4.5) mmol/L Arterial Blood Glucose (75-99) mg/dL Crossmatch 08/18/18 08/18/18 08/18/18 Range/Units 03:00 04:00 04:00 RBC 2.73 L (4.30-5.90) m/uL Hgb 7.9 L (13.0-17.5) gm/dL Hct 24.7 L (39.0-53.0) % Plt Count 105 L (150-450) k/uL Lymphocytes # 0.4 L (1.0-4.8) k/uL INR (<1.2) APTT 34.8 H (22.0-30.0) sec ABG pH (7.35-7.45) ABG pCO2 (35-45) mmHg ABG pO2 (83-108) mmHg ABG Total CO2 (19-24) mmol/L ABG O2 Saturation (94-97) % ABG Hematocrit (34.0-46.0) % ABG Potassium (3.4-4.5) mmol/L ABG Ionized Calcium (4.5-5.3) mg/dL ABG Glucose (75-99) mg/dL ABG Lactic Acid (0.5-1.6) mmol/L Hemoglobin (13.0-17.5) gm/dL Potassium (3.5-5.1) mmol/L Chloride (98-107) mmol/L BUN (9-20) mg/dL Creatinine (0.66-1.25) mg/dL Glucose (74-99) mg/dL POC Glucose (mg/dL) 123 H (75-99) mg/dL Ionized Calcium Yudith (4.5-5.3) mg/dL AST (17-59) U/L Alkaline Phosphatase (38-126) U/L Total Protein (6.3-8.2) g/dL Albumin (3.5-5.0) g/dL Arterial Blood Potassium (3.4-4.5) mmol/L Arterial Blood Glucose (75-99) mg/dL Crossmatch 08/18/18 08/18/18 08/18/18 Range/Units 04:00 04:05 05:01 RBC (4.30-5.90) m/uL Hgb (13.0-17.5) gm/dL Hct (39.0-53.0) % Plt Count (150-450) k/uL Lymphocytes # (1.0-4.8) k/uL INR (<1.2) APTT (22.0-30.0) sec ABG pH (7.35-7.45) ABG pCO2 (35-45) mmHg ABG pO2 (83-108) mmHg ABG Total CO2 (19-24) mmol/L ABG O2 Saturation (94-97) % ABG Hematocrit (34.0-46.0) % ABG Potassium (3.4-4.5) mmol/L ABG Ionized Calcium (4.5-5.3) mg/dL ABG Glucose (75-99) mg/dL ABG Lactic Acid (0.5-1.6) mmol/L Hemoglobin (13.0-17.5) gm/dL Potassium (3.5-5.1) mmol/L Chloride 108 H (98-107) mmol/L BUN 24 H (9-20) mg/dL Creatinine 1.42 H (0.66-1.25) mg/dL Glucose 105 H (74-99) mg/dL POC Glucose (mg/dL) 113 H 128 H (75-99) mg/dL Ionized Calcium Yudith (4.5-5.3) mg/dL AST 75 H (17-59) U/L Alkaline Phosphatase 30 L (38-126) U/L Total Protein 5.1 L (6.3-8.2) g/dL Albumin (3.5-5.0) g/dL Arterial Blood Potassium (3.4-4.5) mmol/L Arterial Blood Glucose (75-99) mg/dL Crossmatch 08/18/18 08/18/18 08/18/18 Range/Units 06:18 07:04 07:56 RBC (4.30-5.90) m/uL Hgb (13.0-17.5) gm/dL Hct (39.0-53.0) % Plt Count (150-450) k/uL Lymphocytes # (1.0-4.8) k/uL INR (<1.2) APTT (22.0-30.0) sec ABG pH (7.35-7.45) ABG pCO2 (35-45) mmHg ABG pO2 (83-108) mmHg ABG Total CO2 (19-24) mmol/L ABG O2 Saturation (94-97) % ABG Hematocrit (34.0-46.0) % ABG Potassium (3.4-4.5) mmol/L ABG Ionized Calcium (4.5-5.3) mg/dL ABG Glucose (75-99) mg/dL ABG Lactic Acid (0.5-1.6) mmol/L Hemoglobin (13.0-17.5) gm/dL Potassium (3.5-5.1) mmol/L Chloride (98-107) mmol/L BUN (9-20) mg/dL Creatinine (0.66-1.25) mg/dL Glucose (74-99) mg/dL POC Glucose (mg/dL) 120 H 104 H 122 H (75-99) mg/dL Ionized Calcium Yudith (4.5-5.3) mg/dL AST (17-59) U/L Alkaline Phosphatase (38-126) U/L Total Protein (6.3-8.2) g/dL Albumin (3.5-5.0) g/dL Arterial Blood Potassium (3.4-4.5) mmol/L Arterial Blood Glucose (75-99) mg/dL Crossmatch 08/18/18 08/18/18 08/18/18 Range/Units 09:10 11:06 12:08 RBC (4.30-5.90) m/uL Hgb (13.0-17.5) gm/dL Hct (39.0-53.0) % Plt Count (150-450) k/uL Lymphocytes # (1.0-4.8) k/uL INR (<1.2) APTT (22.0-30.0) sec ABG pH (7.35-7.45) ABG pCO2 (35-45) mmHg ABG pO2 (83-108) mmHg ABG Total CO2 (19-24) mmol/L ABG O2 Saturation (94-97) % ABG Hematocrit (34.0-46.0) % ABG Potassium (3.4-4.5) mmol/L ABG Ionized Calcium (4.5-5.3) mg/dL ABG Glucose (75-99) mg/dL ABG Lactic Acid (0.5-1.6) mmol/L Hemoglobin (13.0-17.5) gm/dL Potassium (3.5-5.1) mmol/L Chloride (98-107) mmol/L BUN (9-20) mg/dL Creatinine (0.66-1.25) mg/dL Glucose (74-99) mg/dL POC Glucose (mg/dL) 116 H 101 H 113 H (75-99) mg/dL Ionized Calcium Yudith (4.5-5.3) mg/dL AST (17-59) U/L Alkaline Phosphatase (38-126) U/L Total Protein (6.3-8.2) g/dL Albumin (3.5-5.0) g/dL Arterial Blood Potassium (3.4-4.5) mmol/L Arterial Blood Glucose (75-99) mg/dL Crossmatch 08/18/18 Range/Units 13:06 RBC (4.30-5.90) m/uL Hgb (13.0-17.5) gm/dL Hct (39.0-53.0) % Plt Count (150-450) k/uL Lymphocytes # (1.0-4.8) k/uL INR (<1.2) APTT (22.0-30.0) sec ABG pH (7.35-7.45) ABG pCO2 (35-45) mmHg ABG pO2 (83-108) mmHg ABG Total CO2 (19-24) mmol/L ABG O2 Saturation (94-97) % ABG Hematocrit (34.0-46.0) % ABG Potassium (3.4-4.5) mmol/L ABG Ionized Calcium (4.5-5.3) mg/dL ABG Glucose (75-99) mg/dL ABG Lactic Acid (0.5-1.6) mmol/L Hemoglobin (13.0-17.5) gm/dL Potassium (3.5-5.1) mmol/L Chloride (98-107) mmol/L BUN (9-20) mg/dL Creatinine (0.66-1.25) mg/dL Glucose (74-99) mg/dL POC Glucose (mg/dL) 115 H (75-99) mg/dL Ionized Calcium Yudith (4.5-5.3) mg/dL AST (17-59) U/L Alkaline Phosphatase (38-126) U/L Total Protein (6.3-8.2) g/dL Albumin (3.5-5.0) g/dL Arterial Blood Potassium (3.4-4.5) mmol/L Arterial Blood Glucose (75-99) mg/dL Crossmatch
[2018-08-18 14:05] LABS: Glucose,Whole Blood 140 mg/dL (75-99)
[2018-08-18] MEDS: LACTATED RINGERS 1,000 ML IV SCH (14:05)
[2018-08-18] MEDS: ALBUMIN HUMAN 5% 250 ML in EMPTY BAG 1 BAG IVPB PRN (14:15)
[2018-08-18] MEDS ORDERED: BISACODYL 10 MG SUPP RECTAL PRN (14:55)
[2018-08-18] MEDS ORDERED: MAGNESIUM HYDROXIDE 2,400 MG/10 ML CUP PO PRN (14:55)
[2018-08-18 15:09] LABS: Glucose,Whole Blood 138 mg/dL (75-99)
[2018-08-18] MEDS: CLEVIDIPINE BUTYRATE 25 MG in EMPTY BAG 1 BAG IV SCH ×2 (16:05→23:39)
[2018-08-18 16:10] LABS: Glucose,Whole Blood 135 mg/dL (75-99)
[2018-08-18] MEDS: HYDROcodone/APAP 5-325MG 1 EACH TAB PO PRN ×3 (16:27→22:40)
[2018-08-18 17:44] LABS: Glucose,Whole Blood 118 mg/dL (75-99)
[2018-08-18 18:57] LABS: Glucose,Whole Blood 126 mg/dL (75-99)
[2018-08-18 20:07] LABS: Glucose,Whole Blood 108 mg/dL (75-99)
[2018-08-18] MEDS: SENNOSIDES-DOCUSATE SODIUM 1 EACH TAB PO SCH (21:04)
[2018-08-18] MEDS: TAMSULOSIN 0.4 MG CAP.ER.24H PO SCH (21:05)
[2018-08-18 21:08] LABS: Glucose,Whole Blood 116 mg/dL (75-99)
[2018-08-18 22:11] LABS: Glucose,Whole Blood 112 mg/dL (75-99)
[2018-08-18 23:03] LABS: Glucose,Whole Blood 122 mg/dL (75-99)
[2018-08-19 00:03] LABS: Glucose,Whole Blood 134 mg/dL (75-99)
[2018-08-19 01:04] LABS: Glucose,Whole Blood 138 mg/dL (75-99)
[2018-08-19 02:08] LABS: Glucose,Whole Blood 129 mg/dL (75-99)
[2018-08-19] MEDS: INSULIN REGULAR 100 UNIT in SODIUM CHLORIDE 0.9% 100 ML IV SCH ×2 (02:12→18:23)
[2018-08-19 03:02] LABS: Glucose,Whole Blood 130 mg/dL (75-99)
[2018-08-19] MEDS: CLEVIDIPINE BUTYRATE 25 MG in EMPTY BAG 1 BAG IV SCH ×2 (03:37→06:38)
[2018-08-19 04:15] LABS: Glucose,Whole Blood 132 mg/dL (75-99)
[2018-08-19 04:30] LABS: Basophils % (A) 0 %; Eosinophils % (A) 0 %; HCT 26.3 % (39.0-53.0); HGB 8.3 gm/dL (13.0-17.5); Hypochromasia Slight; Lymphocytes # (A) 0.6 k/uL (1.0-4.8); Lymphocytes % (A) 6 %; MCH 29.3 pg (25.0-35.0); MCHC 31.4 g/dL (31.0-37.0); MCV 93.3 fL (80.0-100.0); Mean Platelet Volume 8.7; Monocytes # (A) 0.5 k/uL (0-1.0); Monocytes % (A) 5 %; Neutrophils # (A) 9.9 k/uL (1.3-7.7); Neutrophils % (A) 88 %; Platelet Count 101 k/uL (150-450); RBC 2.82 m/uL (4.30-5.90); RDW 15.4 % (11.5-15.5); WBC 11.2 k/uL (3.8-10.6)
[2018-08-19 04:43] LABS: Ionized Calcium 5.2 mg/dL (4.5-5.3)
[2018-08-19 04:53] LABS: Albumin 3.4 g/dL (3.5-5.0); Calcium 8.6 mg/dL (8.4-10.2); Magnesium 2.3 mg/dL (1.6-2.3); Potassium 4.9 mmol/L (3.5-5.1); Total Bilirubin 0.7 mg/dL (0.2-1.3); Total Protein 5.4 g/dL (6.3-8.2)
[2018-08-19 05:08] LABS: Glucose,Whole Blood 125 mg/dL (75-99)
[2018-08-19] MEDS: IPRATROPIUM-ALBUTEROL 3 ML NEB INHALATION SCH ×4 (05:42→20:08)
--- NOTE | 2018-08-19 05:50 | XR ---
EXAM: XR Chest, 1 View CLINICAL HISTORY: Post Operative Cardiac Surgery TECHNIQUE: Frontal view of the chest. COMPARISON: Yesterday FINDINGS: Lungs: Lungs are underinflated. Small amount of bibasilar atelectasis. Pleural space: Cannot rule out small bilateral pleural effusions. No pneumothorax. Heart: Unremarkable. No cardiomegaly. Mediastinum: Mediastinal widening is nonspecific, probably projectional. Splaying of the felicita may suggest large hiatal hernia. Bones/joints: Unremarkable. Vasculature: Aorta is calcified. Tubes, lines and devices: Interval removal of Mims-Eliazar catheter. Right jugular central venous sheath remains in place. Sternal wires and left chest tube are again noted IMPRESSION: 1. Interval removal of Mims-Eliazar catheter. Right jugular central venous sheath remains in place. 2. Mediastinal widening is nonspecific, probably projectional. Close followup recommended. 3. Splaying of the felicita may suggest large hiatal hernia.
[2018-08-19 05:52] LABS: ABG Base Excess -6.3 mmol/L; ABG HCO3 20 mmol/L (21-25); ABG Oxygen Saturation 92.2 % (94-97); ABG PCO2 41 mmHg (35-45); ABG PO2 67 mmHg (83-108); ABG TCO2 21 mmol/L (19-24)
[2018-08-19] MEDS ORDERED: FUROSEMIDE 10 MG/ML 4 ML VIAL ONE (05:55)
[2018-08-19] MEDS ORDERED: FUROSEMIDE 10 MG/ML 4 ML VIAL IV STA (06:00)
[2018-08-19 06:09] LABS: Glucose,Whole Blood 142 mg/dL (75-99)
[2018-08-19] MEDS ORDERED: LORazepam 2 MG/ML INJ IV STA (06:45)
[2018-08-19 06:54] LABS: Glucose,Whole Blood 146 mg/dL (75-99)
[2018-08-19] MEDS: DEXMEDETOMIDINE/0.9% NACL(PMX) 400 MCG in EMPTY BAG 1 BAG IV SCH ×3 (07:31→20:56)
[2018-08-19 07:57] LABS: Glucose,Whole Blood 148 mg/dL (75-99)
--- NOTE | 2018-08-19 09:12 | P.PN ---
Subjective Progress Note Date: 08/19/18 Principal diagnosis: Non-ST elevation myocardial infarction, impaired left ventricular systolic function with EF 20-25%. History of hypertension, hypertriglyceridemia insulin- dependent diabetes mellitus with preoperative hemoglobin A1c 7.1%, COPD with preoperative FEV1 87% of predicted, previous tobacco dependence, prostate cancer with radiation, right nephrectomy, obesity, BPH. POD #2 urgent coronary artery bypass grafting 3 vessels, left internal mammary artery to left anterior descending artery, reverse saphenous vein graft to obtuse marginal artery, reverse saphenous vein graft to posterior descending artery, endoscopic vein harvest of the left greater saphenous vein, epi-aortic ultrasound, intraoperative transesophageal echocardiogram, closure of sternum using titanium plates and [place] cable system. Patient is currently laying in bed, went into respiratory distress early this morning requiring initiation of BiPAP. Lasix 40 mg IV push given per Dr. Almodovar. Patient is confused and agitated, wanting to remove BiPAP. 1:1 Sitter placed at the bedside. Ativan given and patient restarted on low-dose Precedex. Cleviprex was initiated for blood pressure control. Objective - Vital Signs Vital signs: Vital Signs Temp 98.9 F 08/19/18 04:00 Pulse 73 08/19/18 07:00 Resp 31 H 08/19/18 07:00 BP 111/53 08/19/18 06:00 Pulse Ox 95 08/19/18 07:00 Intake & Output 08/18/18 08/19/18 08/19/18 18:59 06:59 18:59 Intake Total 935.908 662.468 17 Output Total 783 955 Balance 152.908 -292.532 17 Weight 112.6 kg 113.5 kg Intake: IV 583.5 585 Co/CI 40 Lactated Ringers 1,000 ml 440 510 @ 20 mls/hr IV .Q24H [facility] Rx#:[id number] Nitroglycerin-D5w Pmx 50 1.5 mg In Dextrose/Water 1 250ml.bag @ 5 MCG/MIN 1.5 mls/hr IV .Q24H [facility]LEXE[facility] Rx#: [id number] pressure bags 102 75 Intake, IV Titration 352.408 77.468 17 Amount Albumin Human 5% 250 ml 250 In Empty Bag 1 bag @ 250 mls/hr IVPB Q1HR PRN Rx#: [id number] Clevidipine Butyrate 25 55.701 17 mg In Empty Bag 1 bag @ 1 MG/HR 2 mls/hr IV .Q24H [facility] Rx#:[id number] Insulin Regular 100 unit 37.503 21.767 In Sodium Chloride 0.9% 100 ml @ Per Protocol IV .Q0M [facility] Rx#:[id number] Milrinone-D5w Pmx 20 mg 16.163 In Dextrose/Water 1 100ml .bag @ 0.1 MCG/KG/MIN 3. 04 mls/hr IV .Q24H [facility] Rx #:[id number] Norepinephrine 16 mg In 48.742 Sodium Chloride 0.9% 250 ml @ Titrate IV .Q0M [facility] Rx#:[id number] Output: Chest Tube Drainage 180 170 Left Pleural/Mediastinal 180 170 Urine 603 785 Other: Voiding Method Indwelling Catheter Indwelling Catheter ABP, PAP, CO, CI - Last Documented Arterial Blood Pressure 119/55 Pulmonary Artery Pressure 40/20 Cardiac Output 6.7 Cardiac Index 3.3 - Constitutional Constitutional Comment(s): Uncooperative General appearance: Present: disheveled, mild distress, obese - Respiratory Details: Lungs sounds diminished bilaterally. Respirations even, nonlabored. Currently on BiPAP, 80% FiO2, BiPAP 12, EPAP 4 with oxygen saturation 97%. Mediastinal/ left pleural chest tube to continuous wall suction, 100 mL serosanguineous drainage overnight, 300 mL in the last 24 hours, no air leaks present. - Cardiovascular Details: S1, S2 present. Regular rate and rhythm, sinus rhythm on telemetry. A/V epicardial pacemaker wires present, connected to generator, generator turned off. Palpable peripheral pulses bilaterally. Trace generalized edema present. No calf pain or tenderness noted. Right internal jugular Cordis, right radial arterial line present. Heart hugger in place with patient demonstrating appropriate use. Antiembolism stockings, SCDs present. - Gastrointestinal Gastrointestinal Comment(s): Abdomen soft, nontender, nondistended. Active bowel sounds present 4 quadrants. Currently nothing by mouth while on BiPAP. Positive flatus, negative bowel movement. - Genitourinary Genitourinary Comment(s): Suero present draining clear, yellow urine. Output 40-75 mL/h overnight. - Integumentary Integumentary Comment(s): Skin is warm and dry with evidence of good perfusion. Anterior chest incision well approximated and covered with dry intact dressing. Left lower extremity EVH site well approximated, ecchymosis present, expected. - Neurologic Neurologic: Present: CNII-XII intact - Musculoskeletal Musculoskeletal: Present: strength equal bilaterally - Psychiatric Psychiatric Comment(s): Patient is confused, alert and oriented 1-2 only. Periodically agitated, inappropriate. 1:1 sitter at bedside. - Allied health notes Allied health notes reviewed: nursing - Labs CBC & Chem 7: 08/19/18 04:15 08/19/18 04:15 Labs: Abnormal Lab Results - Last 24 Hours (Table) 08/18/18 08/18/18 08/18/18 Range/Units 07:56 09:10 11:06 WBC (3.8-10.6) k/uL RBC (4.30-5.90) m/uL Hgb (13.0-17.5) gm/dL Hct (39.0-53.0) % Plt Count (150-450) k/uL Neutrophils # (1.3-7.7) k/uL Lymphocytes # (1.0-4.8) k/uL ABG pH (7.35-7.45) ABG pO2 (83-108) mmHg ABG HCO3 (21-25) mmol/L ABG O2 Saturation (94-97) % Carbon Dioxide (22-30) mmol/L BUN (9-20) mg/dL Creatinine (0.66-1.25) mg/dL Glucose (74-99) mg/dL POC Glucose (mg/dL) 122 H 116 H 101 H (75-99) mg/dL AST (17-59) U/L Alkaline Phosphatase (38-126) U/L Total Protein (6.3-8.2) g/dL Albumin (3.5-5.0) g/dL 08/18/18 08/18/18 08/18/18 Range/Units 12:08 13:06 14:03 WBC (3.8-10.6) k/uL RBC (4.30-5.90) m/uL Hgb (13.0-17.5) gm/dL Hct (39.0-53.0) % Plt Count (150-450) k/uL Neutrophils # (1.3-7.7) k/uL Lymphocytes # (1.0-4.8) k/uL ABG pH (7.35-7.45) ABG pO2 (83-108) mmHg ABG HCO3 (21-25) mmol/L ABG O2 Saturation (94-97) % Carbon Dioxide (22-30) mmol/L BUN (9-20) mg/dL Creatinine (0.66-1.25) mg/dL Glucose (74-99) mg/dL POC Glucose (mg/dL) 113 H 115 H 140 H (75-99) mg/dL AST (17-59) U/L Alkaline Phosphatase (38-126) U/L Total Protein (6.3-8.2) g/dL Albumin (3.5-5.0) g/dL 08/18/18 08/18/18 08/18/18 Range/Units 15:06 16:08 17:42 WBC (3.8-10.6) k/uL RBC (4.30-5.90) m/uL Hgb (13.0-17.5) gm/dL Hct (39.0-53.0) % Plt Count (150-450) k/uL Neutrophils # (1.3-7.7) k/uL Lymphocytes # (1.0-4.8) k/uL ABG pH (7.35-7.45) ABG pO2 (83-108) mmHg ABG HCO3 (21-25) mmol/L ABG O2 Saturation (94-97) % Carbon Dioxide (22-30) mmol/L BUN (9-20) mg/dL Creatinine (0.66-1.25) mg/dL Glucose (74-99) mg/dL POC Glucose (mg/dL) 138 H 135 H 118 H (75-99) mg/dL AST (17-59) U/L Alkaline Phosphatase (38-126) U/L Total Protein (6.3-8.2) g/dL Albumin (3.5-5.0) g/dL 08/18/18 08/18/18 08/18/18 Range/Units 18:55 20:06 21:06 WBC (3.8-10.6) k/uL RBC (4.30-5.90) m/uL Hgb (13.0-17.5) gm/dL Hct (39.0-53.0) % Plt Count (150-450) k/uL Neutrophils # (1.3-7.7) k/uL Lymphocytes # (1.0-4.8) k/uL ABG pH (7.35-7.45) ABG pO2 (83-108) mmHg ABG HCO3 (21-25) mmol/L ABG O2 Saturation (94-97) % Carbon Dioxide (22-30) mmol/L BUN (9-20) mg/dL Creatinine (0.66-1.25) mg/dL Glucose (74-99) mg/dL POC Glucose (mg/dL) 126 H 108 H 116 H (75-99) mg/dL AST (17-59) U/L Alkaline Phosphatase (38-126) U/L Total Protein (6.3-8.2) g/dL Albumin (3.5-5.0) g/dL 08/18/18 08/18/18 08/19/18 Range/Units 22:10 23:01 00:02 WBC (3.8-10.6) k/uL RBC (4.30-5.90) m/uL Hgb (13.0-17.5) gm/dL Hct (39.0-53.0) % Plt Count (150-450) k/uL Neutrophils # (1.3-7.7) k/uL Lymphocytes # (1.0-4.8) k/uL ABG pH (7.35-7.45) ABG pO2 (83-108) mmHg ABG HCO3 (21-25) mmol/L ABG O2 Saturation (94-97) % Carbon Dioxide (22-30) mmol/L BUN (9-20) mg/dL Creatinine (0.66-1.25) mg/dL Glucose (74-99) mg/dL POC Glucose (mg/dL) 112 H 122 H 134 H (75-99) mg/dL AST (17-59) U/L Alkaline Phosphatase (38-126) U/L Total Protein (6.3-8.2) g/dL Albumin (3.5-5.0) g/dL 08/19/18 08/19/18 08/19/18 Range/Units 01:03 02:06 03:00 WBC (3.8-10.6) k/uL RBC (4.30-5.90) m/uL Hgb (13.0-17.5) gm/dL Hct (39.0-53.0) % Plt Count (150-450) k/uL Neutrophils # (1.3-7.7) k/uL Lymphocytes # (1.0-4.8) k/uL ABG pH (7.35-7.45) ABG pO2 (83-108) mmHg ABG HCO3 (21-25) mmol/L ABG O2 Saturation (94-97) % Carbon Dioxide (22-30) mmol/L BUN (9-20) mg/dL Creatinine (0.66-1.25) mg/dL Glucose (74-99) mg/dL POC Glucose (mg/dL) 138 H 129 H 130 H (75-99) mg/dL AST (17-59) U/L Alkaline Phosphatase (38-126) U/L Total Protein (6.3-8.2) g/dL Albumin (3.5-5.0) g/dL 08/19/18 08/19/18 08/19/18 Range/Units 04:13 04:15 04:15 WBC 11.2 H (3.8-10.6) k/uL RBC 2.82 L (4.30-5.90) m/uL Hgb 8.3 L (13.0-17.5) gm/dL Hct 26.3 L (39.0-53.0) % Plt Count 101 L (150-450) k/uL Neutrophils # 9.9 H (1.3-7.7) k/uL Lymphocytes # 0.6 L (1.0-4.8) k/uL ABG pH (7.35-7.45) ABG pO2 (83-108) mmHg ABG HCO3 (21-25) mmol/L ABG O2 Saturation (94-97) % Carbon Dioxide 21 L (22-30) mmol/L BUN 30 H (9-20) mg/dL Creatinine 1.60 H (0.66-1.25) mg/dL Glucose 118 H (74-99) mg/dL POC Glucose (mg/dL) 132 H (75-99) mg/dL AST 83 H (17-59) U/L Alkaline Phosphatase 35 L (38-126) U/L Total Protein 5.4 L (6.3-8.2) g/dL Albumin 3.4 L (3.5-5.0) g/dL 08/19/18 08/19/18 08/19/18 Range/Units 05:06 05:48 06:09 WBC (3.8-10.6) k/uL RBC (4.30-5.90) m/uL Hgb (13.0-17.5) gm/dL Hct (39.0-53.0) % Plt Count (150-450) k/uL Neutrophils # (1.3-7.7) k/uL Lymphocytes # (1.0-4.8) k/uL ABG pH 7.30 L (7.35-7.45) ABG pO2 67 L (83-108) mmHg ABG HCO3 20 L (21-25) mmol/L ABG O2 Saturation 92.2 L (94-97) % Carbon Dioxide (22-30) mmol/L BUN (9-20) mg/dL Creatinine (0.66-1.25) mg/dL Glucose (74-99) mg/dL POC Glucose (mg/dL) 125 H 142 H (75-99) mg/dL AST (17-59) U/L Alkaline Phosphatase (38-126) U/L Total Protein (6.3-8.2) g/dL Albumin (3.5-5.0) g/dL 08/19/18 Range/Units 06:52 WBC (3.8-10.6) k/uL RBC (4.30-5.90) m/uL Hgb (13.0-17.5) gm/dL Hct (39.0-53.0) % Plt Count (150-450) k/uL Neutrophils # (1.3-7.7) k/uL Lymphocytes # (1.0-4.8) k/uL ABG pH (7.35-7.45) ABG pO2 (83-108) mmHg ABG HCO3 (21-25) mmol/L ABG O2 Saturation (94-97) % Carbon Dioxide (22-30) mmol/L BUN (9-20) mg/dL Creatinine (0.66-1.25) mg/dL Glucose (74-99) mg/dL POC Glucose (mg/dL) 146 H (75-99) mg/dL AST (17-59) U/L Alkaline Phosphatase (38-126) U/L Total Protein (6.3-8.2) g/dL Albumin (3.5-5.0) g/dL - Imaging and Cardiology Chest x-ray: report reviewed, image reviewed Assessment and Plan (1) CAD (coronary artery disease) Current Visit: Yes Status: Chronic Code(s): I25.10 - ATHSCL HEART DISEASE OF [place] CORONARY ARTERY W/O ANG PCTRS SNOMED Code(s): 66312946 (2) Left main coronary artery disease Current Visit: Yes Status: Chronic Code(s): I25.10 - ATHSCL HEART DISEASE OF [place] CORONARY ARTERY W/O ANG PCTRS SNOMED Code(s): 776622041 (3) Hypertension Current Visit: Yes Status: Chronic Code(s): I10 - ESSENTIAL (PRIMARY) HYPERTENSION SNOMED Code(s): 52794377 (4) Hyperlipidemia Current Visit: Yes Status: Chronic Code(s): E78.5 - HYPERLIPIDEMIA, UNSPECIFIED SNOMED Code(s): 90638858 (5) Insulin dependent diabetes mellitus Current Visit: Yes Status: Chronic Code(s): E11.9 - TYPE 2 DIABETES MELLITUS WITHOUT COMPLICATIONS; Z79.4 - [facility] (CURRENT) USE OF INSULIN SNOMED Code(s): 64150173 (6) Tobacco dependence in remission Current Visit: No Status: Resolved Code(s): F17.201 - NICOTINE DEPENDENCE, UNSPECIFIED, IN REMISSION SNOMED Code(s): 625813271 (7) COPD (chronic obstructive pulmonary disease) Current Visit: Yes Status: Chronic Code(s): J44.9 - CHRONIC OBSTRUCTIVE PULMONARY DISEASE, UNSPECIFIED SNOMED Code(s): 29191070 (8) History of nephrectomy Current Visit: Yes Status: Chronic Code(s): Z90.5 - ACQUIRED ABSENCE OF KIDNEY SNOMED Code(s): 66354623442464 (9) Family history of heart disease Current Visit: Yes Status: Chronic Code(s): Z82.49 - FAMILY HX OF ISCHE[place] HEART DIS AND OTH DIS OF THE CIRC SYS SNOMED Code(s): 376217056 (10) History of prostate cancer Current Visit: Yes Status: Chronic Code(s): Z85.46 - PERSONAL HISTORY OF MALIGNANT NEOPLASM OF PROSTATE SNOMED Code(s): 305402824 (11) NSTEMI (non-ST elevated myocardial infarction) Current Visit: Yes Status: Acute Code(s): I21.4 - NON-ST ELEVATION (NSTEMI) MYOCARDIAL INFARCTION SNOMED Code(s): 175162505 Plan: 1. Continue aspirin, statin, Plavix, beta laurie. Will increase beta laurie therapy as tolerated. 2. Wean Cleviprex as tolerated. 3. Wean O2 as tolerated. BiPAP management per pulmonology. 4. Increase activity once off BiPAP. PT/OT/cardiac rehab following. 5. Bronchodilators per pulmonology. 6. Insulin per primary care service. 7. Will monitor daily labs and x-rays. 8. GI prophylaxis with Protonix. DVT prophylaxis with subcu heparin, SCDs. 9. Keep Cordis to continuous CVP monitoring. 10. Pain control with current medication regimen. 11. Continue Flomax for BPH. 12. Continue 1:1 sitter for safety. Precedex restarted to reduce agitation. 13. Avoid nephrotoxic agents. 14. Will discontinue mediastinal chest tube. 15. More recommendations to follow. Time with Patient: Greater than 30
[2018-08-19 09:30] LABS: Glucose,Whole Blood 150 mg/dL (75-99)
[2018-08-19 09:52] LABS: ABG Base Excess -4.8 mmol/L; ABG HCO3 21 mmol/L (21-25); ABG Oxygen Saturation 98.7 % (94-97); ABG PCO2 36 mmHg (35-45); ABG PH 7.36 (7.35-7.45); ABG PO2 104 mmHg (83-108); ABG TCO2 22 mmol/L (19-24)
[2018-08-19 10:36] LABS: Glucose,Whole Blood 139 mg/dL (75-99)
[2018-08-19] MEDS: ASCORBIC ACID 500 MG TAB PO SCH ×2 (11:01→19:07)
[2018-08-19] MEDS: FERROUS SULFATE 325 MG TAB PO SCH ×2 (11:24→19:08)
[2018-08-19 11:25] LABS: Glucose,Whole Blood 129 mg/dL (75-99)
[2018-08-19] MEDS: PANTOPRAZOLE 40 MG TABLET PO SCH (11:26)
[2018-08-19] MEDS: ASPIRIN 325 MG TAB PO SCH (11:26)
[2018-08-19] MEDS: ATORVASTATIN 40 MG TAB PO SCH (11:26)
[2018-08-19] MEDS: CLOPIDOGREL 75 MG TAB PO SCH (11:27)
[2018-08-19] MEDS: METOPROLOL TARTRATE 12.5 MG TAB PO SCH ×2 (11:27→21:00)
[2018-08-19] MEDS: MUPIROCIN 2% OINT 22 GM TUBE NASAL SCH ×2 (11:27→20:58)
[2018-08-19] MEDS: HEPARIN SODIUM,PORCINE 5,000 UNIT/ML 1 ML VIAL SQ SCH ×2 (11:27→17:06)
--- NOTE | 2018-08-19 11:30 | P.PN ---
Subjective Progress Note Date: 08/19/18 Principal diagnosis: Symptomatic multivessel coronary artery disease, status post CABG. Postoperative day #2 This is a 73-year-old white male patient of Dr. Joy Reagan, who presented emergency department on 08/13/2018 at 1840 evaluation of chest pain, associated with diaphoresis. The pain was non-radiating, and occurred after eating some spicy soup, patient was belching, and had some nausea. No vomiting. EKG showed some ST and T-wave abnormalities in the inferior, anterior, and lateral leads with T-wave inversion. Troponins were elevated at 0.128, 11.8, 11.8 and 9.270, patient was ruled in for non-ST elevated MD. Patient was placed on IV heparin, aspirin, Coreg, nitroglycerin and he underwent cardiac catheterization this afternoon with Dr. ALISHA Harper which showed a distal lesion of the left main of 70% before bifurcation into LAD and circumflex with calcification, 60% narrowing in the LAD at the origin of the first diagonal branch, 70% stenosis in the LAD at the origin of the second diagonal branch with probable thrombus, first obtuse marginal with 80-90% stenosis proximally, and 60% narrowing in the circumflex after the first obtuse marginal, total occlusion of the proximal RCA with some collateral circulation from the left system to the right. Patient has past medical history of coronary artery disease, COPD, diabetes mellitus type 2, hypertension, previous nicotine dependence, history of right nephrectomy in 1969 and chronic kidney disease. Patient was recommended to undergo coronary revascularization and cardiothoracic surgery has been consulted. We are seeing this patient for pulmonary evaluation. On 08/15/2018, the patient has no specific complaints. He is not having any chest pain. Resting comfortably in bed. Bedside spirometry was noted and there is no significant obstructive airway limitation. Chest x-ray was reviewed and showed some elevation of the right hemidiaphragm. Otherwise there is some subsegmental atelectatic changes in the lung bases. He is an ex- smoker. He is an obese male patient with a BMI of 39.0. No previous history of DVT or pulmonary embolism. No home O2. He is an ex-smoker. Overall performance status is good. On 08/16/2018 patient seen in follow-up on selective care unit. He sitting up on bed, in no acute distress, denies any shortness of breath. No chest pain, he is on heparin drip. Room air pulse ox is 94%, vital signs are stable. Lung sounds are clear. Patient is possibly scheduled for surgical revascularization surgery on 08/17/2018. No acute complaints overnight. Sinus rhythm. On 08/17/2018 patient seen in follow-up in the intensive care unit, he is status post three-vessel coronary artery bypass grafting, with CHAHAL to LAD, SVG to the PDA, and circumflex. Patient is currently sedated, intubated, on mechanical ventilator, and current vent settings are SIMV mode with a rate of 12 , tidal volume 500, FiO2 of 50% and PEEP of 10. IV drips include LR at a rate of 40, levothyroid at a rate of 10 mics per minute, Primacor is at 0.2 mics per kilo per minute, Precedex is at 0.2 mics per kilo per hour. Patient received 1500 of crystalloids and 1500 mL of 5% albumin, in addition to Cell Saver. [place] -[place] catheter is in place, with PA pressures of 50/32, CVP of 25, cardiac output of 7.3, and cardiac index of 3.6. Patient has 2 mediastinal chest tubes and left pleural chest tubes with small amount of sanguinous output. AV epicardial wires are in place, patient is currently being paced at her mode of AAI with a rate of 80 BPM. The blood work showed WBC of 8.6, hemoglobin of 8.5 , INR 1.2, sodium of 140, potassium is 4.8, chloride is 110, BUN of 21, creatinine is 1.09. Blood gas showed pO2 of 79, pCO2 of 53, pH of 7.25. Vent settings were adjusted, and rate was increased to IMV with a rate of 18 breaths per minute. Suero catheter is in place, and patient is producing 30-50 ML per hour. Reevaluated today on 08/18/2018, patient was extubated last night uneventfully. Presently on nasal cannula, in no form of distress. However he is on 8 L high flow nasal cannula. Hemodynamically stable, on Primacor and low dose levo fed. Patient is relatively asymptomatic, chest x-ray is reassuring. Hemoglobin today is 7.9. BUN is 24 creatinine is 1.42, slightly worse compared to yesterday. Reevaluated today on 08/19/2018, patient developed significant amount of agitation and restlessness last night, placed on Precedex, and now he is on BiPAP. Blood pressure is a bit marginal. His urine output was marginal earlier today, and he received Lasix. He was also placed on 11 proximal for blood pressure control. Presently on BiPAP, seems to be at confused, agitated when aroused, ABG is reasonable with a pO2 of 104 pCO2 of 36 pH of 7.36 this morning. Chest x-ray showed mostly mediastinal widening, likely projectional, otherwise no significant abnormality noted. No evidence of congestive heart failure, minimal asymmetry or atelectasis is noted. Objective - Vital Signs Vital signs: Vital Signs Temp 98.9 F 08/19/18 04:00 Pulse 79 08/19/18 11:00 Resp 21 08/19/18 11:00 BP 101/70 08/19/18 10:00 Pulse Ox 100 08/19/18 11:00 Intake & Output 08/18/18 08/19/18 08/19/18 18:59 06:59 18:59 Intake Total 935.908 662.468 303.241 Output Total 783 955 155 Balance 152.908 -292.532 148.241 Weight 112.6 kg 113.5 kg 113.5 kg Intake: IV 583.5 585 184 Co/CI 40 Lactated Ringers 1,000 ml 440 510 160 @ 20 mls/hr IV .Q24H [facility] Rx#:[id number] Nitroglycerin-D5w Pmx 50 1.5 mg In Dextrose/Water 1 250ml.bag @ 5 MCG/MIN 1.5 mls/hr IV .Q24H [facility] Rx#: [id number] pressure bags 102 75 24 Intake, IV Titration 352.408 77.468 119.241 Amount Albumin Human 5% 250 ml 250 In Empty Bag 1 bag @ 250 mls/hr IVPB Q1HR PRN Rx#: [id number] Clevidipine Butyrate 25 55.701 50.000 mg In Empty Bag 1 bag @ 1 MG/HR 2 mls/hr IV .Q24H [facility] Rx#:[id number] Dexmedetomidine/0.9% NaCl 54.186 (Pmx) 400 mcg In Empty Bag 1 bag @ Titrate IV . Q0M [facility] Rx#:[id number] Insulin Regular 100 unit 37.503 21.767 15.055 In Sodium Chloride 0.9% 100 ml @ Per Protocol IV .Q0M [facility] Rx#:[id number] Milrinone-D5w Pmx 20 mg 16.163 In Dextrose/Water 1 100ml .bag @ 0.1 MCG/KG/MIN 3. 04 mls/hr IV .Q24H [facility] Rx #:[id number] Norepinephrine 16 mg In 48.742 Sodium Chloride 0.9% 250 ml @ Titrate IV .Q0M [facility] Rx#:[id number] Output: Chest Tube Drainage 180 170 20 Left Pleural/Mediastinal 180 170 20 Urine 603 785 135 Other: Voiding Method Indwelling Catheter Indwelling Catheter Indwelling Catheter ABP, PAP, CO, CI - Last Documented Arterial Blood Pressure 129/55 Pulmonary Artery Pressure 40/20 Cardiac Output 6.7 Cardiac Index 3.3 - Exam Physical Exam: Revealed a 73-year-old white male, presently on BiPAP with IPAP of 12 and EPAP of 4, sedated but arousable, follows simple instructions but gets agitated very easily. HEENT:[ No JVD, no thyromegaly, no stridor.] Chest: [Diminished breath sounds at the bases, no rhonchi and no wheezes. Cardiac Exam: [Normal S1 and S2, no S3 gallop, no murmur.] Abdomen: [Obese soft no megaly no rebound no guarding. Positive bowel sounds. Extremities: [Trace of bipedal edema no clubbing no cyanosis. Neurological Exam: Sedated, but gets agitated and arousable easily. Seems to be a bit confused. Psychiatric: Agitated mood, confused. Skin: No rashes. No erythema.] - Labs CBC & Chem 7: 08/19/18 04:15 08/19/18 04:15 Labs: Abnormal Lab Results - Last 24 Hours (Table) 08/18/18 08/18/18 08/18/18 Range/Units 12:08 13:06 14:03 WBC (3.8-10.6) k/uL RBC (4.30-5.90) m/uL Hgb (13.0-17.5) gm/dL Hct (39.0-53.0) % Plt Count (150-450) k/uL Neutrophils # (1.3-7.7) k/uL Lymphocytes # (1.0-4.8) k/uL ABG pH (7.35-7.45) ABG pO2 (83-108) mmHg ABG HCO3 (21-25) mmol/L ABG O2 Saturation (94-97) % Carbon Dioxide (22-30) mmol/L BUN (9-20) mg/dL Creatinine (0.66-1.25) mg/dL Glucose (74-99) mg/dL POC Glucose (mg/dL) 113 H 115 H 140 H (75-99) mg/dL AST (17-59) U/L Alkaline Phosphatase (38-126) U/L Total Protein (6.3-8.2) g/dL Albumin (3.5-5.0) g/dL 08/18/18 08/18/18 08/18/18 Range/Units 15:06 16:08 17:42 WBC (3.8-10.6) k/uL RBC (4.30-5.90) m/uL Hgb (13.0-17.5) gm/dL Hct (39.0-53.0) % Plt Count (150-450) k/uL Neutrophils # (1.3-7.7) k/uL Lymphocytes # (1.0-4.8) k/uL ABG pH (7.35-7.45) ABG pO2 (83-108) mmHg ABG HCO3 (21-25) mmol/L ABG O2 Saturation (94-97) % Carbon Dioxide (22-30) mmol/L BUN (9-20) mg/dL Creatinine (0.66-1.25) mg/dL Glucose (74-99) mg/dL POC Glucose (mg/dL) 138 H 135 H 118 H (75-99) mg/dL AST (17-59) U/L Alkaline Phosphatase (38-126) U/L Total Protein (6.3-8.2) g/dL Albumin (3.5-5.0) g/dL 08/18/18 08/18/18 08/18/18 Range/Units 18:55 20:06 21:06 WBC (3.8-10.6) k/uL RBC (4.30-5.90) m/uL Hgb (13.0-17.5) gm/dL Hct (39.0-53.0) % Plt Count (150-450) k/uL Neutrophils # (1.3-7.7) k/uL Lymphocytes # (1.0-4.8) k/uL ABG pH (7.35-7.45) ABG pO2 (83-108) mmHg ABG HCO3 (21-25) mmol/L ABG O2 Saturation (94-97) % Carbon Dioxide (22-30) mmol/L BUN (9-20) mg/dL Creatinine (0.66-1.25) mg/dL Glucose (74-99) mg/dL POC Glucose (mg/dL) 126 H 108 H 116 H (75-99) mg/dL AST (17-59) U/L Alkaline Phosphatase (38-126) U/L Total Protein (6.3-8.2) g/dL Albumin (3.5-5.0) g/dL 08/18/18 08/18/18 08/19/18 Range/Units 22:10 23:01 00:02 WBC (3.8-10.6) k/uL RBC (4.30-5.90) m/uL Hgb (13.0-17.5) gm/dL Hct (39.0-53.0) % Plt Count (150-450) k/uL Neutrophils # (1.3-7.7) k/uL Lymphocytes # (1.0-4.8) k/uL ABG pH (7.35-7.45) ABG pO2 (83-108) mmHg ABG HCO3 (21-25) mmol/L ABG O2 Saturation (94-97) % Carbon Dioxide (22-30) mmol/L BUN (9-20) mg/dL Creatinine (0.66-1.25) mg/dL Glucose (74-99) mg/dL POC Glucose (mg/dL) 112 H 122 H 134 H (75-99) mg/dL AST (17-59) U/L Alkaline Phosphatase (38-126) U/L Total Protein (6.3-8.2) g/dL Albumin (3.5-5.0) g/dL 08/19/18 08/19/18 08/19/18 Range/Units 01:03 02:06 03:00 WBC (3.8-10.6) k/uL RBC (4.30-5.90) m/uL Hgb (13.0-17.5) gm/dL Hct (39.0-53.0) % Plt Count (150-450) k/uL Neutrophils # (1.3-7.7) k/uL Lymphocytes # (1.0-4.8) k/uL ABG pH (7.35-7.45) ABG pO2 (83-108) mmHg ABG HCO3 (21-25) mmol/L ABG O2 Saturation (94-97) % Carbon Dioxide (22-30) mmol/L BUN (9-20) mg/dL Creatinine (0.66-1.25) mg/dL Glucose (74-99) mg/dL POC Glucose (mg/dL) 138 H 129 H 130 H (75-99) mg/dL AST (17-59) U/L Alkaline Phosphatase (38-126) U/L Total Protein (6.3-8.2) g/dL Albumin (3.5-5.0) g/dL 08/19/18 08/19/18 08/19/18 Range/Units 04:13 04:15 04:15 WBC 11.2 H (3.8-10.6) k/uL RBC 2.82 L (4.30-5.90) m/uL Hgb 8.3 L (13.0-17.5) gm/dL Hct 26.3 L (39.0-53.0) % Plt Count 101 L (150-450) k/uL Neutrophils # 9.9 H (1.3-7.7) k/uL Lymphocytes # 0.6 L (1.0-4.8) k/uL ABG pH (7.35-7.45) ABG pO2 (83-108) mmHg ABG HCO3 (21-25) mmol/L ABG O2 Saturation (94-97) % Carbon Dioxide 21 L (22-30) mmol/L BUN 30 H (9-20) mg/dL Creatinine 1.60 H (0.66-1.25) mg/dL Glucose 118 H (74-99) mg/dL POC Glucose (mg/dL) 132 H (75-99) mg/dL AST 83 H (17-59) U/L Alkaline Phosphatase 35 L (38-126) U/L Total Protein 5.4 L (6.3-8.2) g/dL Albumin 3.4 L (3.5-5.0) g/dL 08/19/18 08/19/18 08/19/18 Range/Units 05:06 05:48 06:09 WBC (3.8-10.6) k/uL RBC (4.30-5.90) m/uL Hgb (13.0-17.5) gm/dL Hct (39.0-53.0) % Plt Count (150-450) k/uL Neutrophils # (1.3-7.7) k/uL Lymphocytes # (1.0-4.8) k/uL ABG pH 7.30 L (7.35-7.45) ABG pO2 67 L (83-108) mmHg ABG HCO3 20 L (21-25) mmol/L ABG O2 Saturation 92.2 L (94-97) % Carbon Dioxide (22-30) mmol/L BUN (9-20) mg/dL Creatinine (0.66-1.25) mg/dL Glucose (74-99) mg/dL POC Glucose (mg/dL) 125 H 142 H (75-99) mg/dL AST (17-59) U/L Alkaline Phosphatase (38-126) U/L Total Protein (6.3-8.2) g/dL Albumin (3.5-5.0) g/dL 08/19/18 08/19/18 08/19/18 Range/Units 06:52 07:55 09:28 WBC (3.8-10.6) k/uL RBC (4.30-5.90) m/uL Hgb (13.0-17.5) gm/dL Hct (39.0-53.0) % Plt Count (150-450) k/uL Neutrophils # (1.3-7.7) k/uL Lymphocytes # (1.0-4.8) k/uL ABG pH (7.35-7.45) ABG pO2 (83-108) mmHg ABG HCO3 (21-25) mmol/L ABG O2 Saturation (94-97) % Carbon Dioxide (22-30) mmol/L BUN (9-20) mg/dL Creatinine (0.66-1.25) mg/dL Glucose (74-99) mg/dL POC Glucose (mg/dL) 146 H 148 H 150 H (75-99) mg/dL AST (17-59) U/L Alkaline Phosphatase (38-126) U/L Total Protein (6.3-8.2) g/dL Albumin (3.5-5.0) g/dL 08/19/18 08/19/18 Range/Units 09:50 10:17 WBC (3.8-10.6) k/uL RBC (4.30-5.90) m/uL Hgb (13.0-17.5) gm/dL Hct (39.0-53.0) % Plt Count (150-450) k/uL Neutrophils # (1.3-7.7) k/uL Lymphocytes # (1.0-4.8) k/uL ABG pH (7.35-7.45) ABG pO2 (83-108) mmHg ABG HCO3 (21-25) mmol/L ABG O2 Saturation 98.7 H (94-97) % Carbon Dioxide (22-30) mmol/L BUN (9-20) mg/dL Creatinine (0.66-1.25) mg/dL Glucose (74-99) mg/dL POC Glucose (mg/dL) 139 H (75-99) mg/dL AST (17-59) U/L Alkaline Phosphatase (38-126) U/L Total Protein (6.3-8.2) g/dL Albumin (3.5-5.0) g/dL Assessment and Plan Assessment: Impression: #1. Coronary artery disease and acute non-ST elevation myocardial infarction #2. Multivessel coronary artery disease, involving 70% left main stenosis, 70% LAD stenosis with thrombus, age 85% OM stenosis, status post three-vessel coronary artery bypass grafting with CHAHAL to LAD, SVG to the PDA and circumflex , postop day #2 #3 Ischemic cardiomyopathy, LV dysfunction with ejection fraction of 20-25%. #5. Type 2 diabetes, requiring insulin. #6 suspect acute ICU psychosis and delirium, presently on Precedex, seems to be helping, patient will need to be kept in the ICU. #8 multiple comorbidities including underlying COPD, previous nephrectomy, prostate cancer, tobacco dependence and remission, hyperlipidemia, benign essential hypertension. Recommendation: Continue present meds as listed continue BiPAP, continue Precedex, continue to monitor closely in the ICU. Discussed his condition with cardiology on the case. Critical care time is 35 minutes. Time with Patient: Greater than 30
[2018-08-19] MEDS: DEXTROSE/WATER 1 500ML.BAG with DOPamine DRIP 800 MG IV SCH (12:08)
[2018-08-19] MEDS: LACTATED RINGERS 1,000 ML IV SCH (12:09)
[2018-08-19 12:16] LABS: Glucose,Whole Blood 112 mg/dL (75-99)
--- NOTE | 2018-08-19 12:23 | P.PN ---
Subjective Progress Note Date: 08/19/18 This is a 73-year-old male, patient of [facility]. He has a known past medical history of hypertension, diabetes mellitus, COPD, right nephrectomy 1970 and former smoker. Patient presents to the emergency room with complaints of chest pain with pressure and heaviness and diaphoresis. Symptoms had started yesterday. Patient was diagnosed with a non-ST elevated DC. Initial troponin 0.128 then 11.6 and 11.8. Patient was started on IV heparin cardiology was consulted. And patient underwent heart catheterization today. The heart catheterization shows total occlusion of the right coronary artery. Left main is 70-75% stenosed. The left anterior descending coronary artery has a mid lesion of 70% with thrombus. Obtuse marginal had 80-85% stenosis. Cardiology is recommending open-heart surgery. That her surgery has been consulted. They have already evaluated patient and surgery we'll possibly be on Friday. Pulmonary service has also been consulted. Patient is receiving IV fluids. He was slightly dehydrated on admission creatinine was 1.44. Unclear baseline creatinine. Creatinine in March 2018 was 1.3. Patient currently is chest pain-free. He reports that symptoms started after eating spicy soup and when he came back home he belched a large amount of gas and is relieved the pressure. He has been chest pain-free. Cardiology has placed him on IV heparin and Aggrastat. On 08/15/2018 patient was seen and examined he is alert and oriented 3 in no apparent distress he is sitting at the edge of the bed and he denies any chest pain there is no shortness of breath at rest he has occasional cough no palpitation no nausea or vomiting no abdominal pain no diarrhea no constipation no burning with urination no frequency or urgency and no hematuria. On 08/16/2018 patient was seen and examined on the telemetry floor he is alert and oriented 3 in no distress he denies any new episodes of chest pain he denies any other symptoms there is no fever or chills no headache or dizziness no shortness of breath no cough no nausea or vomiting no abdominal pain no diarrhea no burning was urination no frequency or urgency and no hematuria On 08/17/2018 Patient had coronary artery bypass graft [address] Hannah today. Patient currently intubated and on sedation. Patient remains in the intensive care unit. Patient currently on levophed for pressure support. On 08/18/2018 patient is currently postop day 1 and coronary artery bypass graft surgery. Patient is currently up in chair. Patient was extubated throughout night. Precedex drip has been DC'd per cardiovascular team. Patient remains sleepy but alert and arousable. At this time patient denies shortness of breath. Denies nausea vomiting or diarrhea. Denies any urinary burning. On 08/18/2018 patient is currently postop day 2 from coronary artery bypass graft. Per nursing staff patient is confused. Patient is also requiring BiPAP to maintain adequate oxygenation. Discussed case with Luna from the cardiovascular surgical team. Patient remains on Precedex drip. safety sitting at bedside. Objective - Vital Signs Vital signs: Vital Signs Temp 99.3 F 08/19/18 11:00 Pulse 80 08/19/18 12:08 Resp 21 08/19/18 11:00 BP 101/70 08/19/18 10:00 Pulse Ox 100 08/19/18 11:00 Intake & Output 08/18/18 08/19/18 08/19/18 18:59 06:59 18:59 Intake Total 935.908 662.468 344.877 Output Total 783 955 220 Balance 152.908 -292.532 124.877 Weight 112.6 kg 113.5 kg 113.5 kg Intake: IV 583.5 585 220 Co/CI 40 Lactated Ringers 1,000 ml 440 510 190 @ 20 mls/hr IV .Q24H [facility] Rx#:[id number] Nitroglycerin-D5w Pmx 50 1.5 mg In Dextrose/Water 1 250ml.bag @ 5 MCG/MIN 1.5 mls/hr IV .Q24H [facility] Rx#: [id number] pressure bags 102 75 30 Intake, IV Titration 352.408 77.468 124.877 Amount Albumin Human 5% 250 ml 250 In Empty Bag 1 bag @ 250 mls/hr IVPB Q1HR PRN Rx#: [id number] Clevidipine Butyrate 25 55.701 50.000 mg In Empty Bag 1 bag @ 1 MG/HR 2 mls/hr IV .Q24H [facility] Rx#:[id number] Dexmedetomidine/0.9% NaCl 56.455 (Pmx) 400 mcg In Empty Bag 1 bag @ Titrate IV . Q0M [facility] Rx#:[id number] Insulin Regular 100 unit 37.503 21.767 18.422 In Sodium Chloride 0.9% 100 ml @ Per Protocol IV .Q0M [facility] Rx#:[id number] Milrinone-D5w Pmx 20 mg 16.163 In Dextrose/Water 1 100ml .bag @ 0.1 MCG/KG/MIN 3. 04 mls/hr IV .Q24H [facility] Rx #:[id number] Norepinephrine 16 mg In 48.742 Sodium Chloride 0.9% 250 ml @ Titrate IV .Q0M [facility] Rx#:[id number] Output: Chest Tube Drainage 180 170 40 Left Pleural/Mediastinal 180 170 40 Urine 603 785 180 Other: Voiding Method Indwelling Catheter Indwelling Catheter Indwelling Catheter ABP, PAP, CO, CI - Last Documented Arterial Blood Pressure 129/55 Pulmonary Artery Pressure 40/20 Cardiac Output 6.7 Cardiac Index 3.3 - Exam Head normocephalic Neck supple Lungs patient currently intubated Heart regular rate and rhythm S1-S2, no rub or gallop Abdomen is soft nontender nondistended positive bowel sounds no hepatosplenomegaly Extremities no edema - Labs CBC & Chem 7: 08/19/18 04:15 08/19/18 04:15 Labs: Abnormal Lab Results - Last 24 Hours (Table) 08/18/18 08/18/18 08/18/18 Range/Units 13:06 14:03 15:06 WBC (3.8-10.6) k/uL RBC (4.30-5.90) m/uL Hgb (13.0-17.5) gm/dL Hct (39.0-53.0) % Plt Count (150-450) k/uL Neutrophils # (1.3-7.7) k/uL Lymphocytes # (1.0-4.8) k/uL ABG pH (7.35-7.45) ABG pO2 (83-108) mmHg ABG HCO3 (21-25) mmol/L ABG O2 Saturation (94-97) % Carbon Dioxide (22-30) mmol/L BUN (9-20) mg/dL Creatinine (0.66-1.25) mg/dL Glucose (74-99) mg/dL POC Glucose (mg/dL) 115 H 140 H 138 H (75-99) mg/dL AST (17-59) U/L Alkaline Phosphatase (38-126) U/L Total Protein (6.3-8.2) g/dL Albumin (3.5-5.0) g/dL 08/18/18 08/18/18 08/18/18 Range/Units 16:08 17:42 18:55 WBC (3.8-10.6) k/uL RBC (4.30-5.90) m/uL Hgb (13.0-17.5) gm/dL Hct (39.0-53.0) % Plt Count (150-450) k/uL Neutrophils # (1.3-7.7) k/uL Lymphocytes # (1.0-4.8) k/uL ABG pH (7.35-7.45) ABG pO2 (83-108) mmHg ABG HCO3 (21-25) mmol/L ABG O2 Saturation (94-97) % Carbon Dioxide (22-30) mmol/L BUN (9-20) mg/dL Creatinine (0.66-1.25) mg/dL Glucose (74-99) mg/dL POC Glucose (mg/dL) 135 H 118 H 126 H (75-99) mg/dL AST (17-59) U/L Alkaline Phosphatase (38-126) U/L Total Protein (6.3-8.2) g/dL Albumin (3.5-5.0) g/dL 08/18/18 08/18/18 08/18/18 Range/Units 20:06 21:06 22:10 WBC (3.8-10.6) k/uL RBC (4.30-5.90) m/uL Hgb (13.0-17.5) gm/dL Hct (39.0-53.0) % Plt Count (150-450) k/uL Neutrophils # (1.3-7.7) k/uL Lymphocytes # (1.0-4.8) k/uL ABG pH (7.35-7.45) ABG pO2 (83-108) mmHg ABG HCO3 (21-25) mmol/L ABG O2 Saturation (94-97) % Carbon Dioxide (22-30) mmol/L BUN (9-20) mg/dL Creatinine (0.66-1.25) mg/dL Glucose (74-99) mg/dL POC Glucose (mg/dL) 108 H 116 H 112 H (75-99) mg/dL AST (17-59) U/L Alkaline Phosphatase (38-126) U/L Total Protein (6.3-8.2) g/dL Albumin (3.5-5.0) g/dL 08/18/18 08/19/18 08/19/18 Range/Units 23:01 00:02 01:03 WBC (3.8-10.6) k/uL RBC (4.30-5.90) m/uL Hgb (13.0-17.5) gm/dL Hct (39.0-53.0) % Plt Count (150-450) k/uL Neutrophils # (1.3-7.7) k/uL Lymphocytes # (1.0-4.8) k/uL ABG pH (7.35-7.45) ABG pO2 (83-108) mmHg ABG HCO3 (21-25) mmol/L ABG O2 Saturation (94-97) % Carbon Dioxide (22-30) mmol/L BUN (9-20) mg/dL Creatinine (0.66-1.25) mg/dL Glucose (74-99) mg/dL POC Glucose (mg/dL) 122 H 134 H 138 H (75-99) mg/dL AST (17-59) U/L Alkaline Phosphatase (38-126) U/L Total Protein (6.3-8.2) g/dL Albumin (3.5-5.0) g/dL 08/19/18 08/19/18 08/19/18 Range/Units 02:06 03:00 04:13 WBC (3.8-10.6) k/uL RBC (4.30-5.90) m/uL Hgb (13.0-17.5) gm/dL Hct (39.0-53.0) % Plt Count (150-450) k/uL Neutrophils # (1.3-7.7) k/uL Lymphocytes # (1.0-4.8) k/uL ABG pH (7.35-7.45) ABG pO2 (83-108) mmHg ABG HCO3 (21-25) mmol/L ABG O2 Saturation (94-97) % Carbon Dioxide (22-30) mmol/L BUN (9-20) mg/dL Creatinine (0.66-1.25) mg/dL Glucose (74-99) mg/dL POC Glucose (mg/dL) 129 H 130 H 132 H (75-99) mg/dL AST (17-59) U/L Alkaline Phosphatase (38-126) U/L Total Protein (6.3-8.2) g/dL Albumin (3.5-5.0) g/dL 08/19/18 08/19/18 08/19/18 Range/Units 04:15 04:15 05:06 WBC 11.2 H (3.8-10.6) k/uL RBC 2.82 L (4.30-5.90) m/uL Hgb 8.3 L (13.0-17.5) gm/dL Hct 26.3 L (39.0-53.0) % Plt Count 101 L (150-450) k/uL Neutrophils # 9.9 H (1.3-7.7) k/uL Lymphocytes # 0.6 L (1.0-4.8) k/uL ABG pH (7.35-7.45) ABG pO2 (83-108) mmHg ABG HCO3 (21-25) mmol/L ABG O2 Saturation (94-97) % Carbon Dioxide 21 L (22-30) mmol/L BUN 30 H (9-20) mg/dL Creatinine 1.60 H (0.66-1.25) mg/dL Glucose 118 H (74-99) mg/dL POC Glucose (mg/dL) 125 H (75-99) mg/dL AST 83 H (17-59) U/L Alkaline Phosphatase 35 L (38-126) U/L Total Protein 5.4 L (6.3-8.2) g/dL Albumin 3.4 L (3.5-5.0) g/dL 08/19/18 08/19/18 08/19/18 Range/Units 05:48 06:09 06:52 WBC (3.8-10.6) k/uL RBC (4.30-5.90) m/uL Hgb (13.0-17.5) gm/dL Hct (39.0-53.0) % Plt Count (150-450) k/uL Neutrophils # (1.3-7.7) k/uL Lymphocytes # (1.0-4.8) k/uL ABG pH 7.30 L (7.35-7.45) ABG pO2 67 L (83-108) mmHg ABG HCO3 20 L (21-25) mmol/L ABG O2 Saturation 92.2 L (94-97) % Carbon Dioxide (22-30) mmol/L BUN (9-20) mg/dL Creatinine (0.66-1.25) mg/dL Glucose (74-99) mg/dL POC Glucose (mg/dL) 142 H 146 H (75-99) mg/dL AST (17-59) U/L Alkaline Phosphatase (38-126) U/L Total Protein (6.3-8.2) g/dL Albumin (3.5-5.0) g/dL 08/19/18 08/19/18 08/19/18 Range/Units 07:55 09:28 09:50 WBC (3.8-10.6) k/uL RBC (4.30-5.90) m/uL Hgb (13.0-17.5) gm/dL Hct (39.0-53.0) % Plt Count (150-450) k/uL Neutrophils # (1.3-7.7) k/uL Lymphocytes # (1.0-4.8) k/uL ABG pH (7.35-7.45) ABG pO2 (83-108) mmHg ABG HCO3 (21-25) mmol/L ABG O2 Saturation 98.7 H (94-97) % Carbon Dioxide (22-30) mmol/L BUN (9-20) mg/dL Creatinine (0.66-1.25) mg/dL Glucose (74-99) mg/dL POC Glucose (mg/dL) 148 H 150 H (75-99) mg/dL AST (17-59) U/L Alkaline Phosphatase (38-126) U/L Total Protein (6.3-8.2) g/dL Albumin (3.5-5.0) g/dL 08/19/18 08/19/18 08/19/18 Range/Units 10:17 11:23 12:14 WBC (3.8-10.6) k/uL RBC (4.30-5.90) m/uL Hgb (13.0-17.5) gm/dL Hct (39.0-53.0) % Plt Count (150-450) k/uL Neutrophils # (1.3-7.7) k/uL Lymphocytes # (1.0-4.8) k/uL ABG pH (7.35-7.45) ABG pO2 (83-108) mmHg ABG HCO3 (21-25) mmol/L ABG O2 Saturation (94-97) % Carbon Dioxide (22-30) mmol/L BUN (9-20) mg/dL Creatinine (0.66-1.25) mg/dL Glucose (74-99) mg/dL POC Glucose (mg/dL) 139 H 129 H 112 H (75-99) mg/dL AST (17-59) U/L Alkaline Phosphatase (38-126) U/L Total Protein (6.3-8.2) g/dL Albumin (3.5-5.0) g/dL Assessment and Plan Assessment: 1. Status post coronary artery bypass graft [address] Hannah postop day 1. The CHAHAL to LAD, SVG to PDA and Circ. Patient currently intubated and on sedation. Cardiovascular team and critical care team following closely. Patient currently up in chair. Patient has been extubated throughout night. hemoglobin 7.9. 2. Acute Non-ST elevated myocardial infarction: Heart catheterization showing multivessel coronary artery disease with thrombus in the LAD. Patient has been seen by vascular surgery and planning for open heart surgery on Friday. Continue IV heparin and Aggrastat per cardiology. Continue with IV fluids. Pulmonary service also consulted for preop clearance. 3. Acute kidney injury: Unclear patient has chronic kidney disease. Creatinine in March 2018 was 1.3. Continue with IV fluid hydration. Creatinine 1.42. Continue to monitor closely. Creatinine continued to increase to 1.60. Discussed case with Luna gardner from cardiovascular surgery will continue to monitor closely at this point 4. Essential hypertension 5. Diabetes mellitus insulin-dependent. Continue Levemir. Add sliding scale coverage. Hemoglobin A1c 7.9 6. History of COPD: No evidence of exacerbation. continue albuterol nebulizer as needed 7. BPH continue Flomax 8. Atelectasis noted on chest x-ray order incentive spirometer 9. Obesity BMI 39.4 kg 10. Possible acute ICU psychosis and delirium. Patient remains on Precedex. Critical care team following closely DVT prophylaxis heparin and GI prophylaxis Protonix I performed an examination of the patient and discussed their management with the Nurse Practitioner. I have reviewed the Nurse Practitioner's notes and agree with the documented findings and plan of care
--- NOTE | 2018-08-19 12:34 | P.PN ---
Subjective Patient little more confused with respiratory distress on a BiPAP mask at this time Status post coronary artery bypass grafting Pulse rate in the 80s Blood pressure 120/57 mmHg Breath sounds are reduced bilaterally with reduced air entry Crackles at the bases Heart sounds are soft Impression Tuberous coronary artery disease status post coronary artery bypass grafting postoperative respiratory distress after extubation. Patient received IV Lasix today suggest continue current care and diuresis. Objective - Vital Signs Vital signs: Vital Signs Temp 99.3 F 08/19/18 11:00 Pulse 80 08/19/18 12:08 Resp 27 H 08/19/18 12:00 BP 101/70 08/19/18 10:00 Pulse Ox 100 08/19/18 12:00 Intake & Output 08/18/18 08/19/18 08/19/18 18:59 06:59 18:59 Intake Total 935.908 662.468 391.246 Output Total 783 955 220 Balance 152.908 -292.532 171.246 Weight 112.6 kg 113.5 kg 113.5 kg Intake: IV 583.5 585 220 Co/CI 40 Lactated Ringers 1,000 ml 440 510 190 @ 20 mls/hr IV .Q24H [facility] Rx#:[id number] Nitroglycerin-D5w Pmx 50 1.5 mg In Dextrose/Water 1 250ml.bag @ 5 MCG/MIN 1.5 mls/hr IV .Q24H [facility] Rx#: [id number] pressure bags 102 75 30 Intake, IV Titration 352.408 77.468 171.246 Amount Albumin Human 5% 250 ml 250 In Empty Bag 1 bag @ 250 mls/hr IVPB Q1HR PRN Rx#: [id number] Clevidipine Butyrate 25 55.701 50.000 mg In Empty Bag 1 bag @ 1 MG/HR 2 mls/hr IV .Q24H [facility] Rx#:[id number] Dexmedetomidine/0.9% NaCl 100.000 (Pmx) 400 mcg In Empty Bag 1 bag @ Titrate IV . Q0M [facility] Rx#:[id number] Insulin Regular 100 unit 37.503 21.767 21.246 In Sodium Chloride 0.9% 100 ml @ Per Protocol IV .Q0M [facility] Rx#:[id number] Milrinone-D5w Pmx 20 mg 16.163 In Dextrose/Water 1 100ml .bag @ 0.1 MCG/KG/MIN 3. 04 mls/hr IV .Q24H [facility] Rx #:[id number] Norepinephrine 16 mg In 48.742 Sodium Chloride 0.9% 250 ml @ Titrate IV .Q0M [facility] Rx#:[id number] Output: Chest Tube Drainage 180 170 40 Left Pleural/Mediastinal 180 170 40 Urine 603 785 180 Other: Voiding Method Indwelling Catheter Indwelling Catheter Indwelling Catheter ABP, PAP, CO, CI - Last Documented Arterial Blood Pressure 146/62 Pulmonary Artery Pressure 40/20 Cardiac Output 6.7 Cardiac Index 3.3 - Labs CBC & Chem 7: 08/19/18 04:15 08/19/18 04:15 Labs: Abnormal Lab Results - Last 24 Hours (Table) 08/18/18 08/18/18 08/18/18 Range/Units 13:06 14:03 15:06 WBC (3.8-10.6) k/uL RBC (4.30-5.90) m/uL Hgb (13.0-17.5) gm/dL Hct (39.0-53.0) % Plt Count (150-450) k/uL Neutrophils # (1.3-7.7) k/uL Lymphocytes # (1.0-4.8) k/uL ABG pH (7.35-7.45) ABG pO2 (83-108) mmHg ABG HCO3 (21-25) mmol/L ABG O2 Saturation (94-97) % Carbon Dioxide (22-30) mmol/L BUN (9-20) mg/dL Creatinine (0.66-1.25) mg/dL Glucose (74-99) mg/dL POC Glucose (mg/dL) 115 H 140 H 138 H (75-99) mg/dL AST (17-59) U/L Alkaline Phosphatase (38-126) U/L Total Protein (6.3-8.2) g/dL Albumin (3.5-5.0) g/dL 08/18/18 08/18/18 08/18/18 Range/Units 16:08 17:42 18:55 WBC (3.8-10.6) k/uL RBC (4.30-5.90) m/uL Hgb (13.0-17.5) gm/dL Hct (39.0-53.0) % Plt Count (150-450) k/uL Neutrophils # (1.3-7.7) k/uL Lymphocytes # (1.0-4.8) k/uL ABG pH (7.35-7.45) ABG pO2 (83-108) mmHg ABG HCO3 (21-25) mmol/L ABG O2 Saturation (94-97) % Carbon Dioxide (22-30) mmol/L BUN (9-20) mg/dL Creatinine (0.66-1.25) mg/dL Glucose (74-99) mg/dL POC Glucose (mg/dL) 135 H 118 H 126 H (75-99) mg/dL AST (17-59) U/L Alkaline Phosphatase (38-126) U/L Total Protein (6.3-8.2) g/dL Albumin (3.5-5.0) g/dL 08/18/18 08/18/18 08/18/18 Range/Units 20:06 21:06 22:10 WBC (3.8-10.6) k/uL RBC (4.30-5.90) m/uL Hgb (13.0-17.5) gm/dL Hct (39.0-53.0) % Plt Count (150-450) k/uL Neutrophils # (1.3-7.7) k/uL Lymphocytes # (1.0-4.8) k/uL ABG pH (7.35-7.45) ABG pO2 (83-108) mmHg ABG HCO3 (21-25) mmol/L ABG O2 Saturation (94-97) % Carbon Dioxide (22-30) mmol/L BUN (9-20) mg/dL Creatinine (0.66-1.25) mg/dL Glucose (74-99) mg/dL POC Glucose (mg/dL) 108 H 116 H 112 H (75-99) mg/dL AST (17-59) U/L Alkaline Phosphatase (38-126) U/L Total Protein (6.3-8.2) g/dL Albumin (3.5-5.0) g/dL 08/18/18 08/19/18 08/19/18 Range/Units 23:01 00:02 01:03 WBC (3.8-10.6) k/uL RBC (4.30-5.90) m/uL Hgb (13.0-17.5) gm/dL Hct (39.0-53.0) % Plt Count (150-450) k/uL Neutrophils # (1.3-7.7) k/uL Lymphocytes # (1.0-4.8) k/uL ABG pH (7.35-7.45) ABG pO2 (83-108) mmHg ABG HCO3 (21-25) mmol/L ABG O2 Saturation (94-97) % Carbon Dioxide (22-30) mmol/L BUN (9-20) mg/dL Creatinine (0.66-1.25) mg/dL Glucose (74-99) mg/dL POC Glucose (mg/dL) 122 H 134 H 138 H (75-99) mg/dL AST (17-59) U/L Alkaline Phosphatase (38-126) U/L Total Protein (6.3-8.2) g/dL Albumin (3.5-5.0) g/dL 08/19/18 08/19/18 08/19/18 Range/Units 02:06 03:00 04:13 WBC (3.8-10.6) k/uL RBC (4.30-5.90) m/uL Hgb (13.0-17.5) gm/dL Hct (39.0-53.0) % Plt Count (150-450) k/uL Neutrophils # (1.3-7.7) k/uL Lymphocytes # (1.0-4.8) k/uL ABG pH (7.35-7.45) ABG pO2 (83-108) mmHg ABG HCO3 (21-25) mmol/L ABG O2 Saturation (94-97) % Carbon Dioxide (22-30) mmol/L BUN (9-20) mg/dL Creatinine (0.66-1.25) mg/dL Glucose (74-99) mg/dL POC Glucose (mg/dL) 129 H 130 H 132 H (75-99) mg/dL AST (17-59) U/L Alkaline Phosphatase (38-126) U/L Total Protein (6.3-8.2) g/dL Albumin (3.5-5.0) g/dL 08/19/18 08/19/1808/19/18 Range/Units 04:15 04:15 05:06 WBC 11.2 H (3.8-10.6) k/uL RBC 2.82 L (4.30-5.90) m/uL Hgb 8.3 L (13.0-17.5) gm/dL Hct 26.3 L (39.0-53.0) % Plt Count 101 L (150-450) k/uL Neutrophils # 9.9 H (1.3-7.7) k/uL Lymphocytes # 0.6 L (1.0-4.8) k/uL ABG pH (7.35-7.45) ABG pO2 (83-108) mmHg ABG HCO3 (21-25) mmol/L ABG O2 Saturation (94-97) % Carbon Dioxide 21 L (22-30) mmol/L BUN 30 H (9-20) mg/dL Creatinine 1.60 H (0.66-1.25) mg/dL Glucose 118 H (74-99) mg/dL POC Glucose (mg/dL) 125 H (75-99) mg/dL AST 83 H (17-59) U/L Alkaline Phosphatase 35 L (38-126) U/L Total Protein 5.4 L (6.3-8.2) g/dL Albumin 3.4 L (3.5-5.0) g/dL 08/19/18 08/19/18 08/19/18 Range/Units 05:48 06:09 06:52 WBC (3.8-10.6) k/uL RBC (4.30-5.90) m/uL Hgb (13.0-17.5) gm/dL Hct (39.0-53.0) % Plt Count (150-450) k/uL Neutrophils # (1.3-7.7) k/uL Lymphocytes # (1.0-4.8) k/uL ABG pH 7.30 L (7.35-7.45) ABG pO2 67 L (83-108) mmHg ABG HCO3 20 L (21-25) mmol/L ABG O2 Saturation 92.2 L (94-97) % Carbon Dioxide (22-30) mmol/L BUN (9-20) mg/dL Creatinine (0.66-1.25) mg/dL Glucose (74-99) mg/dL POC Glucose (mg/dL) 142 H 146 H (75-99) mg/dL AST (17-59) U/L Alkaline Phosphatase (38-126) U/L Total Protein (6.3-8.2) g/dL Albumin (3.5-5.0) g/dL 08/19/18 08/19/18 08/19/18 Range/Units 07:55 09:28 09:50 WBC (3.8-10.6) k/uL RBC (4.30-5.90) m/uL Hgb (13.0-17.5) gm/dL Hct (39.0-53.0) % Plt Count (150-450) k/uL Neutrophils # (1.3-7.7) k/uL Lymphocytes # (1.0-4.8) k/uL ABG pH (7.35-7.45) ABG pO2 (83-108) mmHg ABG HCO3 (21-25) mmol/L ABG O2 Saturation 98.7 H (94-97) % Carbon Dioxide (22-30) mmol/L BUN (9-20) mg/dL Creatinine (0.66-1.25) mg/dL Glucose (74-99) mg/dL POC Glucose (mg/dL) 148 H 150 H (75-99) mg/dL AST (17-59) U/L Alkaline Phosphatase (38-126) U/L Total Protein (6.3-8.2) g/dL Albumin (3.5-5.0) g/dL 08/19/18 08/19/18 08/19/18 Range/Units 10:17 11:23 12:14 WBC (3.8-10.6) k/uL RBC (4.30-5.90) m/uL Hgb (13.0-17.5) gm/dL Hct (39.0-53.0) % Plt Count (150-450) k/uL Neutrophils # (1.3-7.7) k/uL Lymphocytes # (1.0-4.8) k/uL ABG pH (7.35-7.45) ABG pO2 (83-108) mmHg ABG HCO3 (21-25) mmol/L ABG O2 Saturation (94-97) % Carbon Dioxide (22-30) mmol/L BUN (9-20) mg/dL Creatinine (0.66-1.25) mg/dL Glucose (74-99) mg/dL POC Glucose (mg/dL) 139 H 129 H 112 H (75-99) mg/dL AST (17-59) U/L Alkaline Phosphatase (38-126) U/L Total Protein (6.3-8.2) g/dL Albumin (3.5-5.0) g/dL
[2018-08-19 13:07] LABS: Glucose,Whole Blood 129 mg/dL (75-99)
[2018-08-19 14:02] LABS: Glucose,Whole Blood 139 mg/dL (75-99)
[2018-08-19 15:30] LABS: Glucose,Whole Blood 147 mg/dL (75-99)
[2018-08-19 17:04] LABS: Glucose,Whole Blood 122 mg/dL (75-99)
[2018-08-19 18:19] LABS: Glucose,Whole Blood 114 mg/dL (75-99)
[2018-08-19 19:09] LABS: Glucose,Whole Blood 118 mg/dL (75-99)
[2018-08-19 19:52] LABS: Glucose,Whole Blood 121 mg/dL (75-99)
[2018-08-19 20:07] LABS: Glucose,Whole Blood 122 mg/dL (75-99)
[2018-08-19] MEDS: SENNOSIDES-DOCUSATE SODIUM 1 EACH TAB PO SCH (20:56)
[2018-08-19] MEDS: TAMSULOSIN 0.4 MG CAP.ER.24H PO SCH (20:58)
[2018-08-19 21:07] LABS: Glucose,Whole Blood 112 mg/dL (75-99)
[2018-08-19 22:07] LABS: Glucose,Whole Blood 124 mg/dL (75-99)
[2018-08-19 23:07] LABS: Glucose,Whole Blood 140 mg/dL (75-99)
[2018-08-20 00:18] LABS: Glucose,Whole Blood 113 mg/dL (75-99)
[2018-08-20 01:10] LABS: Glucose,Whole Blood 120 mg/dL (75-99)
[2018-08-20] MEDS: HEPARIN SODIUM,PORCINE 5,000 UNIT/ML 1 ML VIAL SQ SCH ×3 (01:11→16:49)
[2018-08-20 02:15] LABS: Glucose,Whole Blood 132 mg/dL (75-99)
[2018-08-20 03:07] LABS: Glucose,Whole Blood 131 mg/dL (75-99)
[2018-08-20 04:14] LABS: Glucose,Whole Blood 128 mg/dL (75-99)
[2018-08-20 04:20] LABS: Basophils % (A) 0 %; Eosinophils % (A) 0 %; HCT 24.3 % (39.0-53.0); HGB 7.6 gm/dL (13.0-17.5); Hypochromasia Slight; Lymphocytes # (A) 0.4 k/uL (1.0-4.8); Lymphocytes % (A) 6 %; MCH 28.7 pg (25.0-35.0); MCHC 31.4 g/dL (31.0-37.0); MCV 91.5 fL (80.0-100.0); Mean Platelet Volume 10.1; Monocytes # (A) 0.3 k/uL (0-1.0); Monocytes % (A) 5 %; Neutrophils # (A) 5.8 k/uL (1.3-7.7); Neutrophils % (A) 88 %; Platelet Count 106 k/uL (150-450); RBC 2.66 m/uL (4.30-5.90); RDW 15.4 % (11.5-15.5); WBC 6.6 k/uL (3.8-10.6)
[2018-08-20 04:45] LABS: Albumin 2.9 g/dL (3.5-5.0); Calcium 8.5 mg/dL (8.4-10.2); Magnesium 2.5 mg/dL (1.6-2.3); Phosphorus 3.1 mg/dL (2.5-4.5); Potassium 4.6 mmol/L (3.5-5.1); Total Bilirubin 0.6 mg/dL (0.2-1.3); Total Protein 5.1 g/dL (6.3-8.2)
[2018-08-20 05:16] LABS: Glucose,Whole Blood 113 mg/dL (75-99)
[2018-08-20 06:12] LABS: Glucose,Whole Blood 123 mg/dL (75-99)
[2018-08-20 07:02] LABS: Glucose,Whole Blood 127 mg/dL (75-99)
--- NOTE | 2018-08-20 07:11 | XR ---
EXAMINATION TYPE: XR chest 1V portable DATE OF EXAM: 08/20/2018 CLINICAL HISTORY: Difficulty breathing progress study. Post open cardiac surgery. TECHNIQUE: Single AP portable upright view of the chest is obtained. COMPARISON: Chest x-ray from one day earlier and older studies. FINDINGS: There is redemonstration of right internal jugular cordis sheath. There is redemonstration of overlying sternal wires. There is interval removal of left-sided chest tube. No sizable pneumotho rax is evident. There is stable cardiomegaly. There is redemonstration of elevated right hemidiaphrag m with right basilar opacity felt to reflect small right pleural effusion and associated right basila r atelectasis and/or infiltrate. Left lung is clear. Osseous structures are intact. Persistent mild c entral vascular congestion is felt present. IMPRESSION: Interval removal of left-sided chest tube without sizable pneumothorax. Stable cardiomega ly and mild central vascular congestion with elevated right hemidiaphragm and small right pleural eff usion and associated right basilar atelectasis and/or infiltrate.
--- NOTE | 2018-08-20 08:00 | P.PN ---
Subjective Progress Note Date: 08/20/18 Principal diagnosis: Non-ST elevation myocardial infarction, impaired left ventricular systolic function with EF 20-25%. History of hypertension, hypertriglyceridemia insulin- dependent diabetes mellitus with preoperative hemoglobin A1c 7.1%, COPD with preoperative FEV1 87% of predicted, previous tobacco dependence, prostate cancer with radiation, right nephrectomy, obesity, BPH. POD #3 urgent coronary artery bypass grafting 3 vessels, left internal mammary artery to left anterior descending artery, reverse saphenous vein graft to obtuse marginal artery, reverse saphenous vein graft to posterior descending artery, endoscopic vein harvest of the left greater saphenous vein, epi-aortic ultrasound, intraoperative transesophageal echocardiogram, closure of sternum using titanium plates and [place] cable system. Patient is currently sitting up in bed, remained on BiPAP overnight with decreased confusion, trialed high flow nasal cannula this morning which patient only tolerated for about 1 hour and needed to be placed back on BiPAP. Remains on Precedex for agitation. Low-dose renal dopamine was started yesterday. Mediastinal and left pleural chest tubes were discontinued yesterday. Objective - Vital Signs Vital signs: Vital Signs Temp 98.4 F 08/20/18 04:00 Pulse 81 08/20/18 07:00 Resp 22 08/20/18 07:00 BP 99/54 08/19/18 17:00 Pulse Ox 98 08/20/18 07:00 Intake & Output 08/19/18 08/20/18 08/20/18 18:59 06:59 18:59 Intake Total 669.694 625.475 1.258 Output Total 590 800 Balance 79.694 -174.525 1.258 Weight 113.5 kg 109.4 kg Intake: IV 436 468 Lactated Ringers 1,000 ml 370 390 @ 20 mls/hr IV .Q24H [facility] Rx#:[id number] pressure bags 66 78 Intake, IV Titration 233.694 157.475 1.258 Amount Clevidipine Butyrate 25 50.000 mg In Empty Bag 1 bag @ 1 MG/HR 2 mls/hr IV .Q24H [facility] Rx#:[id number] Dexmedetomidine/0.9% NaCl 142.304 134.715 (Pmx) 400 mcg In Empty Bag 1 bag @ Titrate IV . Q0M [facility] Rx#:[id number] Insulin Regular 100 unit 41.390 22.760 1.258 In Sodium Chloride 0.9% 100 ml @ Per Protocol IV .Q0M [facility] Rx#:[id number] Output: Chest Tube Drainage 80 Left Pleural/Mediastinal 80 Urine 510 800 Other: Voiding Method Indwelling Catheter Indwelling Catheter ABP, PAP, CO, CI - Last Documented Arterial Blood Pressure 149/64 Pulmonary Artery Pressure 40/20 Cardiac Output 6.7 Cardiac Index 3.3 - Constitutional General appearance: Present: cooperative, mild distress, obese - Respiratory Details: Lungs sounds very diminished bilaterally. Respirations even, slightly labored. Currently on BiPAP, 50% FiO2, BiPAP 12, EPAP 6 with oxygen saturation 98%. - Cardiovascular Details: S1, S2 present. Regular rate and rhythm, sinus rhythm on telemetry. A/V epicardial pacemaker wires present, connected to generator, generator turned off. Palpable peripheral pulses bilaterally. Trace generalized edema present. No calf pain or tenderness noted. Right internal jugular Cordis, right radial arterial line present. Heart hugger in place with patient demonstrating appropriate use. Antiembolism stockings, SCDs present. - Gastrointestinal Gastrointestinal Comment(s): Abdomen soft, nontender, nondistended. Active bowel sounds present 4 quadrants. Currently nothing by mouth while on BiPAP. Positive flatus, negative bowel movement. - Genitourinary Genitourinary Comment(s): Suero present draining clear, yellow urine. Output 45-80 mL/h overnight. - Integumentary Integumentary Comment(s): Skin is warm and dry with evidence of good perfusion. Anterior chest incision well approximated and covered with dry intact dressing. Left lower extremity EVH site well approximated, ecchymosis present, expected. - Neurologic Neurologic: Present: CNII-XII intact - Musculoskeletal Musculoskeletal: Present: strength equal bilaterally - Psychiatric Psychiatric Comment(s): Alert and oriented but poor judgment, wants to get out of bed without assistance despite difficulty breathing and BiPAP use. Psychiatric: Present: A&O x's 3 - Allied health notes Allied health notes reviewed: nursing - Labs CBC & Chem 7: 08/20/18 04:00 08/20/18 04:00 Labs: Abnormal Lab Results - Last 24 Hours (Table) 08/19/18 08/19/18 08/19/18 Range/Units 07:55 09:28 09:50 RBC (4.30-5.90) m/uL Hgb (13.0-17.5) gm/dL Hct (39.0-53.0) % Plt Count (150-450) k/uL Lymphocytes # (1.0-4.8) k/uL ABG O2 Saturation 98.7 H (94-97) % Chloride (98-107) mmol/L BUN (9-20) mg/dL Creatinine (0.66-1.25) mg/dL Glucose (74-99) mg/dL POC Glucose (mg/dL) 148 H 150 H (75-99) mg/dL Magnesium (1.6-2.3) mg/dL AST (17-59) U/L Alkaline Phosphatase (38-126) U/L Total Protein (6.3-8.2) g/dL Albumin (3.5-5.0) g/dL 08/19/18 08/19/18 08/19/18 Range/Units 10:17 11:23 12:14 RBC (4.30-5.90) m/uL Hgb (13.0-17.5) gm/dL Hct (39.0-53.0) % Plt Count (150-450) k/uL Lymphocytes # (1.0-4.8) k/uL ABG O2 Saturation (94-97) % Chloride (98-107) mmol/L BUN (9-20) mg/dL Creatinine (0.66-1.25) mg/dL Glucose (74-99) mg/dL POC Glucose (mg/dL) 139 H 129 H 112 H (75-99) mg/dL Magnesium (1.6-2.3) mg/dL AST (17-59) U/L Alkaline Phosphatase (38-126) U/L Total Protein (6.3-8.2) g/dL Albumin (3.5-5.0) g/dL 08/19/18 08/19/18 08/19/18 Range/Units 13:05 14:00 15:28 RBC (4.30-5.90) m/uL Hgb (13.0-17.5) gm/dL Hct (39.0-53.0) % Plt Count (150-450) k/uL Lymphocytes # (1.0-4.8) k/uL ABG O2 Saturation (94-97) % Chloride (98-107) mmol/L BUN (9-20) mg/dL Creatinine (0.66-1.25) mg/dL Glucose (74-99) mg/dL POC Glucose (mg/dL) 129 H 139 H 147 H (75-99) mg/dL Magnesium (1.6-2.3) mg/dL AST (17-59) U/L Alkaline Phosphatase (38-126) U/L Total Protein (6.3-8.2) g/dL Albumin (3.5-5.0) g/dL 08/19/18 08/19/18 08/19/18 Range/Units 17:02 18:18 19:07 RBC (4.30-5.90) m/uL Hgb (13.0-17.5) gm/dL Hct (39.0-53.0) % Plt Count (150-450) k/uL Lymphocytes # (1.0-4.8) k/uL ABG O2 Saturation (94-97) % Chloride (98-107) mmol/L BUN (9-20) mg/dL Creatinine (0.66-1.25) mg/dL Glucose (74-99) mg/dL POC Glucose (mg/dL) 122 H 114 H 118 H (75-99) mg/dL Magnesium (1.6-2.3) mg/dL AST (17-59) U/L Alkaline Phosphatase (38-126) U/L Total Protein (6.3-8.2) g/dL Albumin (3.5-5.0) g/dL 08/19/18 08/19/18 08/19/18 Range/Units 19:50 20:05 21:05 RBC (4.30-5.90) m/uL Hgb (13.0-17.5) gm/dL Hct (39.0-53.0) % Plt Count (150-450) k/uL Lymphocytes # (1.0-4.8) k/uL ABG O2 Saturation (94-97) % Chloride (98-107) mmol/L BUN (9-20) mg/dL Creatinine (0.66-1.25) mg/dL Glucose (74-99) mg/dL POC Glucose (mg/dL) 121 H 122 H 112 H (75-99) mg/dL Magnesium (1.6-2.3) mg/dL AST (17-59) U/L Alkaline Phosphatase (38-126) U/L Total Protein (6.3-8.2) g/dL Albumin (3.5-5.0) g/dL 08/19/18 08/19/18 08/20/18 Range/Units 22:05 23:05 00:16 RBC (4.30-5.90) m/uL Hgb (13.0-17.5) gm/dL Hct (39.0-53.0) % Plt Count (150-450) k/uL Lymphocytes # (1.0-4.8) k/uL ABG O2 Saturation (94-97) % Chloride (98-107) mmol/L BUN (9-20) mg/dL Creatinine (0.66-1.25) mg/dL Glucose (74-99) mg/dL POC Glucose (mg/dL) 124 H 140 H 113 H (75-99) mg/dL Magnesium (1.6-2.3) mg/dL AST (17-59) U/L Alkaline Phosphatase (38-126) U/L Total Protein (6.3-8.2) g/dL Albumin (3.5-5.0) g/dL 08/20/18 08/20/18 08/20/18 Range/Units 01:08 02:14 03:04 RBC (4.30-5.90) m/uL Hgb (13.0-17.5) gm/dL Hct (39.0-53.0) % Plt Count (150-450) k/uL Lymphocytes # (1.0-4.8) k/uL ABG O2 Saturation (94-97) % Chloride (98-107) mmol/L BUN (9-20) mg/dL Creatinine (0.66-1.25) mg/dL Glucose (74-99) mg/dL POC Glucose (mg/dL) 120 H 132 H 131 H (75-99) mg/dL Magnesium (1.6-2.3) mg/dL AST (17-59) U/L Alkaline Phosphatase (38-126) U/L Total Protein (6.3-8.2) g/dL Albumin (3.5-5.0) g/dL 08/20/18 08/20/1818 Range/Units 04:00 04:00 04:02 RBC 2.66 L (4.30-5.90) m/uL Hgb 7.6 L (13.0-17.5) gm/dL Hct 24.3 L (39.0-53.0) % Plt Count 106 L (150-450) k/uL Lymphocytes # 0.4 L (1.0-4.8) k/uL ABG O2 Saturation (94-97) % Chloride 109 H (98-107) mmol/L BUN 41 H (9-20) mg/dL Creatinine 1.40 H (0.66-1.25) mg/dL Glucose 112 H (74-99) mg/dL POC Glucose (mg/dL) 128 H (75-99) mg/dL Magnesium 2.5 H (1.6-2.3) mg/dL AST 65 H (17-59) U/L Alkaline Phosphatase 35 L (38-126) U/L Total Protein 5.1 L (6.3-8.2) g/dL Albumin 2.9 L (3.5-5.0) g/dL 08/20/18 08/20/18 08/20/18 Range/Units 05:14 06:10 07:01 RBC (4.30-5.90) m/uL Hgb (13.0-17.5) gm/dL Hct (39.0-53.0) % Plt Count (150-450) k/uL Lymphocytes # (1.0-4.8) k/uL ABG O2 Saturation (94-97) % Chloride (98-107) mmol/L BUN (9-20) mg/dL Creatinine (0.66-1.25) mg/dL Glucose (74-99) mg/dL POC Glucose (mg/dL) 113 H 123 H 127 H (75-99) mg/dL Magnesium (1.6-2.3) mg/dL AST (17-59) U/L Alkaline Phosphatase (38-126) U/L Total Protein (6.3-8.2) g/dL Albumin (3.5-5.0) g/dL - Imaging and Cardiology Chest x-ray: report reviewed, image reviewed Assessment and Plan (1) CAD (coronary artery disease) Current Visit: Yes Status: Chronic Code(s): I25.10 - ATHSCL HEART DISEASE OF [place] CORONARY ARTERY W/O ANG PCTRS SNOMED Code(s): 43739313 (2) Left main coronary artery disease Current Visit: Yes Status: Chronic Code(s): I25.10 - ATHSCL HEART DISEASE OF [place] CORONARY ARTERY W/O ANG PCTRS SNOMED Code(s): 605903476 (3) Hypertension Current Visit: Yes Status: Chronic Code(s): I10 - ESSENTIAL (PRIMARY) HYPERTENSION SNOMED Code(s): 67663819 (4) Hyperlipidemia Current Visit: Yes Status: Chronic Code(s): E78.5 - HYPERLIPIDEMIA, UNSPECIFIED SNOMED Code(s): 43100617 (5) Insulin dependent diabetes mellitus Current Visit: Yes Status: Chronic Code(s): E11.9 - TYPE 2 DIABETES MELLITUS WITHOUT COMPLICATIONS; Z79.4 - CELLULAR PLASTICS CUTTER (CURRENT) USE OF INSULIN SNOMED Code(s): 90501116 (6) Tobacco dependence in remission Current Visit: No Status: Resolved Code(s): F17.201 - NICOTINE DEPENDENCE, UNSPECIFIED, IN REMISSION SNOMED Code(s): 816443037 (7) COPD (chronic obstructive pulmonary disease) Current Visit: Yes Status: Chronic Code(s): J44.9 - CHRONIC OBSTRUCTIVE PULMONARY DISEASE, UNSPECIFIED SNOMED Code(s): 47008719 (8) History of nephrectomy Current Visit: Yes Status: Chronic Code(s): Z90.5 - ACQUIRED ABSENCE OF KIDNEY SNOMED Code(s): 27323714921817 (9) Family history of heart disease Current Visit: Yes Status: Chronic Code(s): Z82.49 - FAMILY HX OF ISCHEM HEART DIS AND OTH DIS OF [facility] SNOMED Code(s): 214664457 (10) History of prostate cancer Current Visit: Yes Status: Chronic Code(s): Z85.46 - PERSONAL HISTORY OF MALIGNANT NEOPLASM OF PROSTATE SNOMED Code(s): 752483990 (11) NSTEMI (non-ST elevated myocardial infarction) Current Visit: Yes Status: Acute Code(s): I21.4 - NON-ST ELEVATION (NSTEMI) MYOCARDIAL INFARCTION SNOMED Code(s): 020999056 Plan: 1. Continue aspirin, statin, Plavix, beta laurie. Will increase beta laurie therapy as tolerated. If unable to tolerate oral meds today will switch to IV lopressor and rectal ASA. 2. Continue renal dose dopamine. 3. Wean O2 as tolerated. BiPAP management per pulmonology. Will discuss possible initiation of steroids with pulmonology. 4. Increase activity once off BiPAP. PT/OT/cardiac rehab following. 6. Will obtain limited echo to assess EF. 7. Bronchodilators per pulmonology. 8. Insulin per primary care service. 7. Will monitor daily labs and x-rays. 9. GI prophylaxis with Protonix. DVT prophylaxis with subcu heparin, SCDs. 10. Keep Cordis to continuous CVP monitoring. 11. Pain control with current medication regimen. 12. Continue Flomax for BPH. 13. Wean Precedex. 14. Avoid nephrotoxic agents. 15. More recommendations to follow. Time with Patient: Greater than 30
[2018-08-20 08:19] LABS: Glucose,Whole Blood 118 mg/dL (75-99)
[2018-08-20] MEDS: IPRATROPIUM-ALBUTEROL 3 ML NEB INHALATION SCH ×4 (08:20→19:09)
[2018-08-20] MEDS: CLOPIDOGREL 75 MG TAB PO SCH (08:44)
[2018-08-20] MEDS: ATORVASTATIN 40 MG TAB PO SCH (08:44)
[2018-08-20] MEDS: METOPROLOL TARTRATE 12.5 MG TAB PO SCH ×2 (08:44→20:06)
[2018-08-20] MEDS: ASPIRIN 325 MG TAB PO SCH (08:45)
[2018-08-20] MEDS: MUPIROCIN 2% OINT 22 GM TUBE NASAL SCH ×2 (09:50→20:07)
[2018-08-20 09:58] LABS: Glucose,Whole Blood 114 mg/dL (75-99)
--- NOTE | 2018-08-20 10:46 | P.PN ---
Subjective Progress Note Date: 08/20/18 This is a 73-year-old male, patient of [facility]. He has a known past medical history of hypertension, diabetes mellitus, COPD, right nephrectomy 1970 and former smoker. Patient presents to the emergency room with complaints of chest pain with pressure and heaviness and diaphoresis. Symptoms had started yesterday. Patient was diagnosed with a non-ST elevated [place]. Initial troponin 0.128 then 11.6 and 11.8. Patient was started on IV heparin cardiology was consulted. And patient underwent heart catheterization today. The heart catheterization shows total occlusion of the right coronary artery. Left main is 70-75% stenosed. The left anterior descending coronary artery has a mid lesion of 70% with thrombus. Obtuse marginal had 80-85% stenosis. Cardiology is recommending open-heart surgery. That her surgery has been consulted. They have already evaluated patient and surgery we'll possibly be on Friday. Pulmonary service has also been consulted. Patient is receiving IV fluids. He was slightly dehydrated on admission creatinine was 1.44. Unclear baseline creatinine. Creatinine in March 2018 was 1.3. Patient currently is chest pain-free. He reports that symptoms started after eating spicy soup and when he came back home he belched a large amount of gas and is relieved the pressure. He has been chest pain-free. Cardiology has placed him on IV heparin and Aggrastat. On 08/15/2018 patient was seen and examined he is alert and oriented 3 in no apparent distress he is sitting at the edge of the bed and he denies any chest pain there is no shortness of breath at rest he has occasional cough no palpitation no nausea or vomiting no abdominal pain no diarrhea no constipation no burning with urination no frequency or urgency and no hematuria. On 08/16/2018 patient was seen and examined on the telemetry floor he is alert and oriented 3 in no distress he denies any new episodes of chest pain he denies any other symptoms there is no fever or chills no headache or dizziness no shortness of breath no cough no nausea or vomiting no abdominal pain no diarrhea no burning was urination no frequency or urgency and no hematuria On 08/17/2018 Patient had coronary artery bypass graft [address] Hannah today. Patient currently intubated and on sedation. Patient remains in the intensive care unit. Patient currently on levophed for pressure support. On 08/18/2018 patient is currently postop day 1 and coronary artery bypass graft surgery. Patient is currently up in chair. Patient was extubated throughout night. Precedex drip has been DC'd per cardiovascular team. Patient remains sleepy but alert and arousable. At this time patient denies shortness of breath. Denies nausea vomiting or diarrhea. Denies any urinary burning. On 08/19/2018 patient is currently postop day 2 from coronary artery bypass graft. Per nursing staff patient is confused. Patient is also requiring BiPAP to maintain adequate oxygenation. Discussed case with Luna from the cardiovascular surgical team. Patient remains on Precedex drip. safety sitting at bedside. On 08/20/2018 patient is currently postop day 2 from coronary artery bypass graft. Patient remains on BiPAP for adequate oxygen. Precedex drip has been DC 'd. Patient does seem more alert. Patient followed closely by cardiovascular surgical team and critical care Objective - Vital Signs Vital signs: Vital Signs Temp 98.6 F 08/20/18 08:00 Pulse 78 08/20/18 10:00 Resp 34 H 08/20/18 10:00 BP 99/54 08/19/18 17:00 Pulse Ox 98 08/20/18 10:00 Intake & Output 08/19/18 08/20/18 08/20/18 18:59 06:59 18:59 Intake Total 669.694 625.475 114.690 Output Total 590 800 160 Balance 79.694 -174.525 -45.310 Weight 113.5 kg 109.4 kg 109.4 kg Intake: IV 436 468 99 Lactated Ringers 1,000 ml 370 390 90 @ 20 mls/hr IV .Q24H [facility] Rx#:[id number] pressure bags 66 78 9 Intake, IV Titration 233.694 157.475 15.690 Amount Clevidipine Butyrate 25 50.000 mg In Empty Bag 1 bag @ 1 MG/HR 2 mls/hr IV .Q24H [facility] Rx#:[id number] Dexmedetomidine/0.9% NaCl 142.304 134.715 7.848 (Pmx) 400 mcg In Empty Bag 1 bag @ Titrate IV . Q0M [facility] Rx#:[id number] Insulin Regular 100 unit 41.390 22.760 7.842 In Sodium Chloride 0.9% 100 ml @ Per Protocol IV .Q0M [facility] Rx#:[id number] Output: Chest Tube Drainage 80 Left Pleural/Mediastinal 80 Urine 510 800 160 Other: Voiding Method Indwelling Catheter Indwelling Catheter Indwelling Catheter ABP, PAP, CO, CI - Last Documented Arterial Blood Pressure 116/55 Pulmonary Artery Pressure 40/20 Cardiac Output 6.7 Cardiac Index 3.3 - Exam Head normocephalic Neck supple Lungs patient currently intubated Heart regular rate and rhythm S1-S2, no rub or gallop Abdomen is soft nontender nondistended positive bowel sounds no hepatosplenomegaly Extremities no edema - Labs CBC & Chem 7: 08/20/18 04:00 08/20/18 04:00 Labs: Abnormal Lab Results - Last 24 Hours (Table) 08/19/18 08/19/18 08/19/18 Range/Units 11:23 12:14 13:05 RBC (4.30-5.90) m/uL Hgb (13.0-17.5) gm/dL Hct (39.0-53.0) % Plt Count (150-450) k/uL Lymphocytes # (1.0-4.8) k/uL Chloride (98-107) mmol/L BUN (9-20) mg/dL Creatinine (0.66-1.25) mg/dL Glucose (74-99) mg/dL POC Glucose (mg/dL) 129 H 112 H 129 H (75-99) mg/dL Magnesium (1.6-2.3) mg/dL AST (17-59) U/L Alkaline Phosphatase (38-126) U/L Total Protein (6.3-8.2) g/dL Albumin (3.5-5.0) g/dL 08/19/18 08/19/18 08/19/18 Range/Units 14:00 15:28 17:02 RBC (4.30-5.90) m/uL Hgb (13.0-17.5) gm/dL Hct (39.0-53.0) % Plt Count (150-450) k/uL Lymphocytes # (1.0-4.8) k/uL Chloride (98-107) mmol/L BUN (9-20) mg/dL Creatinine (0.66-1.25) mg/dL Glucose (74-99) mg/dL POC Glucose (mg/dL) 139 H 147 H 122 H (75-99) mg/dL Magnesium (1.6-2.3) mg/dL AST (17-59) U/L Alkaline Phosphatase (38-126) U/L Total Protein (6.3-8.2) g/dL Albumin (3.5-5.0) g/dL 08/19/18 08/19/18 08/19/18 Range/Units 18:18 19:07 19:50 RBC (4.30-5.90) m/uL Hgb (13.0-17.5) gm/dL Hct (39.0-53.0) % Plt Count (150-450) k/uL Lymphocytes # (1.0-4.8) k/uL Chloride (98-107) mmol/L BUN (9-20) mg/dL Creatinine (0.66-1.25) mg/dL Glucose (74-99) mg/dL POC Glucose (mg/dL) 114 H 118 H 121 H (75-99) mg/dL Magnesium (1.6-2.3) mg/dL AST (17-59) U/L Alkaline Phosphatase (38-126) U/L Total Protein (6.3-8.2) g/dL Albumin (3.5-5.0) g/dL 08/19/18 08/19/18 08/19/18 Range/Units 20:05 21:05 22:05 RBC (4.30-5.90) m/uL Hgb (13.0-17.5) gm/dL Hct (39.0-53.0) % Plt Count (150-450) k/uL Lymphocytes # (1.0-4.8) k/uL Chloride (98-107) mmol/L BUN (9-20) mg/dL Creatinine (0.66-1.25) mg/dL Glucose (74-99) mg/dL POC Glucose (mg/dL) 122 H 112 H 124 H (75-99) mg/dL Magnesium (1.6-2.3) mg/dL AST (17-59) U/L Alkaline Phosphatase (38-126) U/L Total Protein (6.3-8.2) g/dL Albumin (3.5-5.0) g/dL 08/19/18 08/20/18 08/20/18 Range/Units 23:05 00:16 01:08 RBC (4.30-5.90) m/uL Hgb (13.0-17.5) gm/dL Hct (39.0-53.0) % Plt Count (150-450) k/uL Lymphocytes # (1.0-4.8) k/uL Chloride (98-107) mmol/L BUN (9-20) mg/dL Creatinine (0.66-1.25) mg/dL Glucose (74-99) mg/dL POC Glucose (mg/dL) 140 H 113 H 120 H (75-99) mg/dL Magnesium (1.6-2.3) mg/dL AST (17-59) U/L Alkaline Phosphatase (38-126) U/L Total Protein (6.3-8.2) g/dL Albumin (3.5-5.0) g/dL 08/20/18 08/20/18 08/20/18 Range/Units 02:14 03:04 04:00 RBC (4.30-5.90) m/uL Hgb (13.0-17.5) gm/dL Hct (39.0-53.0) % Plt Count (150-450) k/uL Lymphocytes # (1.0-4.8) k/uL Chloride 109 H (98-107) mmol/L BUN 41 H (9-20) mg/dL Creatinine 1.40 H (0.66-1.25) mg/dL Glucose 112 H (74-99) mg/dL POC Glucose (mg/dL) 132 H 131 H (75-99) mg/dL Magnesium 2.5 H (1.6-2.3) mg/dL AST 65 H (17-59) U/L Alkaline Phosphatase 35 L (38-126) U/L Total Protein 5.1 L (6.3-8.2) g/dL Albumin 2.9 L (3.5-5.0) g/dL 08/20/18 08/20/18 08/20/18 Range/Units 04:00 04:02 05:14 RBC 2.66 L (4.30-5.90) m/uL Hgb 7.6 L (13.0-17.5) gm/dL Hct 24.3 L (39.0-53.0) % Plt Count 106 L (150-450) k/uL Lymphocytes # 0.4 L (1.0-4.8) k/uL Chloride (98-107) mmol/L BUN (9-20) mg/dL Creatinine (0.66-1.25) mg/dL Glucose (74-99) mg/dL POC Glucose (mg/dL) 128 H 113 H (75-99) mg/dL Magnesium (1.6-2.3) mg/dL AST (17-59) U/L Alkaline Phosphatase (38-126) U/L Total Protein (6.3-8.2) g/dL Albumin (3.5-5.0) g/dL 08/20/18 08/20/18 08/20/18 Range/Units 06:10 07:01 08:18 RBC (4.30-5.90) m/uL Hgb (13.0-17.5) gm/dL Hct (39.0-53.0) % Plt Count (150-450) k/uL Lymphocytes # (1.0-4.8) k/uL Chloride (98-107) mmol/L BUN (9-20) mg/dL Creatinine (0.66-1.25) mg/dL Glucose (74-99) mg/dL POC Glucose (mg/dL) 123 H 127 H 118 H (75-99) mg/dL Magnesium (1.6-2.3) mg/dL AST (17-59) U/L Alkaline Phosphatase (38-126) U/L Total Protein (6.3-8.2) g/dL Albumin (3.5-5.0) g/dL 08/20/18 Range/Units 09:56 RBC (4.30-5.90) m/uL Hgb (13.0-17.5) gm/dL Hct (39.0-53.0) % Plt Count (150-450) k/uL Lymphocytes # (1.0-4.8) k/uL Chloride (98-107) mmol/L BUN (9-20) mg/dL Creatinine (0.66-1.25) mg/dL Glucose (74-99) mg/dL POC Glucose (mg/dL) 114 H (75-99) mg/dL Magnesium (1.6-2.3) mg/dL AST (17-59) U/L Alkaline Phosphatase (38-126) U/L Total Protein (6.3-8.2) g/dL Albumin (3.5-5.0) g/dL Assessment and Plan Assessment: 1. Status post coronary artery bypass graft [address] Hannah postop day 2. The CHAHAL to LAD, SVG to PDA and Circ. Patient currently intubated and on sedation. Cardiovascular team and critical care team following closely. Patient currently up in chair. Patient has been extubated throughout night. hemoglobin 7.9. Discussed case with Luna per cardiovascular surgical team 2-D echo has been ordered due to diminished heart sounds. Hemoglobin 7.6 2. Acute Non-ST elevated myocardial infarction: Heart catheterization showing multivessel coronary artery disease with thrombus in the LAD. Patient has been seen by vascular surgery and planning for open heart surgery on Friday. Continue IV heparin and Aggrastat per cardiology. Continue with IV fluids. Pulmonary service also consulted for preop clearance. 3. Acute kidney injury: Unclear patient has chronic kidney disease. Creatinine in March 2018 was 1.3. Continue with IV fluid hydration. Creatinine 1.42. Continue to monitor closely. Creatinine continued to increase to 1.60. Discussed case with Luna gardner from cardiovascular surgery will continue to monitor closely at this point. Creatinine improving to 1.40 and bun 41. 4. Essential hypertension 5. Diabetes mellitus insulin-dependent. Hemoglobin A1c 7.9. Patient remains on insulin drip 6. History of COPD: No evidence of exacerbation. continue albuterol nebulizer as needed 7. BPH continue Flomax 8. Atelectasis noted on chest x-ray order incentive spirometer 9. Obesity BMI 39.4 kg 10. Possible acute ICU psychosis and delirium. Patient remains on Precedex. Critical care team following closely. Precedex has been DC'd per critical care team DVT prophylaxis heparin and GI prophylaxis Protonix I performed an examination of the patient and discussed their management with the Nurse Practitioner. I have reviewed the Nurse Practitioner's notes and agree with the documented findings and plan of care
[2018-08-20] MEDS ORDERED: LORazepam 2 MG/ML INJ IV PRN (11:01)
[2018-08-20 11:04] LABS: ABG Base Excess -0.8 mmol/L; ABG HCO3 24 mmol/L (21-25); ABG Oxygen Saturation 99.8 % (94-97); ABG PCO2 38 mmHg (35-45); ABG PH 7.41 (7.35-7.45); ABG PO2 141 mmHg (83-108); ABG TCO2 25 mmol/L (19-24)
[2018-08-20 12:09] LABS: Glucose,Whole Blood 111 mg/dL (75-99)
[2018-08-20] MEDS: ASCORBIC ACID 500 MG TAB PO SCH ×2 (12:09→17:29)
[2018-08-20] MEDS: PANTOPRAZOLE 40 MG TABLET PO SCH (12:10)
[2018-08-20] MEDS: FERROUS SULFATE 325 MG TAB PO SCH ×2 (12:10→17:29)
--- NOTE | 2018-08-20 13:14 | P.PN ---
Subjective Patient remains agitated. Comparing of incisional chest discomfort, on a CPAP mask On examination also rate in the 80s respirations in the 30s him a blood pressure 99/54 mmHg Normal heart sounds are distant Breath sounds are reduced bilaterally No lower symmetry edema Impression Troponins coronary artery disease status post coronary artery bypass grafting Patient very agitated post procedure and complaining of incisional pain Alertness is improved today Suggest Continue IV amiodarone and aspirin atorvastatin and Plavix Continue CT surgery and ICU care post CABG Objective - Vital Signs Vital signs: Vital Signs Temp 98.6 F 08/20/18 08:00 Pulse 81 08/20/18 11:35 Resp 22 08/20/18 11:35 BP 99/54 08/19/18 17:00 Pulse Ox 100 08/20/18 11:00 Intake & Output 08/19/18 08/20/18 08/20/18 18:59 06:59 18:59 Intake Total 669.694 625.475 147.690 Output Total 590 800 220 Balance 79.694 -174.525 -72.310 Weight 113.5 kg 109.4 kg 109.4 kg Intake: IV 436 468 132 Lactated Ringers 1,000 ml 370 390 120 @ 20 mls/hr IV .Q24H [facility] Rx#:[id number] pressure bags 66 78 12 Intake, IV Titration 233.694 157.475 15.690 Amount Clevidipine Butyrate 25 50.000 mg In Empty Bag 1 bag @ 1 MG/HR 2 mls/hr IV .Q24H [facility] Rx#:[id number] Dexmedetomidine/0.9% NaCl 142.304 134.715 7.848 (Pmx) 400 mcg In Empty Bag 1 bag @ Titrate IV . Q0M [facility] Rx#:[id number] Insulin Regular 100 unit 41.390 22.760 7.842 In Sodium Chloride 0.9% 100 ml @ Per Protocol IV .Q0M [facility] Rx#:[id number] Output: Chest Tube Drainage 80 Left Pleural/Mediastinal 80 Urine 510 800 220 Other: Voiding Method Indwelling Catheter Indwelling Catheter Indwelling Catheter ABP, PAP, CO, CI - Last Documented Arterial Blood Pressure 118/54 Pulmonary Artery Pressure 40/20 Cardiac Output 6.7 Cardiac Index 3.3 - Labs CBC & Chem 7: 08/20/18 04:00 08/20/18 04:00 Labs: Abnormal Lab Results - Last 24 Hours (Table) 08/19/18 08/19/18 08/19/18 Range/Units 14:00 15:28 17:02 RBC (4.30-5.90) m/uL Hgb (13.0-17.5) gm/dL Hct (39.0-53.0) % Plt Count (150-450) k/uL Lymphocytes # (1.0-4.8) k/uL ABG pO2 (83-108) mmHg ABG Total CO2 (19-24) mmol/L ABG O2 Saturation (94-97) % Chloride (98-107) mmol/L BUN (9-20) mg/dL Creatinine (0.66-1.25) mg/dL Glucose (74-99) mg/dL POC Glucose (mg/dL) 139 H 147 H 122 H (75-99) mg/dL Magnesium (1.6-2.3) mg/dL AST (17-59) U/L Alkaline Phosphatase (38-126) U/L Total Protein (6.3-8.2) g/dL Albumin (3.5-5.0) g/dL 08/19/18 08/19/18 08/19/18 Range/Units 18:18 19:07 19:50 RBC (4.30-5.90) m/uL Hgb (13.0-17.5) gm/dL Hct (39.0-53.0) % Plt Count (150-450) k/uL Lymphocytes # (1.0-4.8) k/uL ABG pO2 (83-108) mmHg ABG Total CO2 (19-24) mmol/L ABG O2 Saturation (94-97) % Chloride (98-107) mmol/L BUN (9-20) mg/dL Creatinine (0.66-1.25) mg/dL Glucose (74-99) mg/dL POC Glucose (mg/dL) 114 H 118 H 121 H (75-99) mg/dL Magnesium (1.6-2.3) mg/dL AST (17-59) U/L Alkaline Phosphatase (38-126) U/L Total Protein (6.3-8.2) g/dL Albumin (3.5-5.0) g/dL 08/19/18 08/19/18 08/19/18 Range/Units 20:05 21:05 22:05 RBC (4.30-5.90) m/uL Hgb (13.0-17.5) gm/dL Hct (39.0-53.0) % Plt Count (150-450) k/uL Lymphocytes # (1.0-4.8) k/uL ABG pO2 (83-108) mmHg ABG Total CO2 (19-24) mmol/L ABG O2 Saturation (94-97) % Chloride (98-107) mmol/L BUN (9-20) mg/dL Creatinine (0.66-1.25) mg/dL Glucose (74-99) mg/dL POC Glucose (mg/dL) 122 H 112 H 124 H (75-99) mg/dL Magnesium (1.6-2.3) mg/dL AST (17-59) U/L Alkaline Phosphatase (38-126) U/L Total Protein (6.3-8.2) g/dL Albumin (3.5-5.0) g/dL 08/19/18 08/20/18 08/20/18 Range/Units 23:05 00:16 01:08 RBC (4.30-5.90) m/uL Hgb (13.0-17.5) gm/dL Hct (39.0-53.0) % Plt Count (150-450) k/uL Lymphocytes # (1.0-4.8) k/uL ABG pO2 (83-108) mmHg ABG Total CO2 (19-24) mmol/L ABG O2 Saturation (94-97) % Chloride (98-107) mmol/L BUN (9-20) mg/dL Creatinine (0.66-1.25) mg/dL Glucose (74-99) mg/dL POC Glucose (mg/dL) 140 H 113 H 120 H (75-99) mg/dL Magnesium (1.6-2.3) mg/dL AST (17-59) U/L Alkaline Phosphatase (38-126) U/L Total Protein (6.3-8.2) g/dL Albumin (3.5-5.0) g/dL 08/20/18 08/20/18 08/20/18 Range/Units 02:14 03:04 04:00 RBC (4.30-5.90) m/uL Hgb (13.0-17.5) gm/dL Hct (39.0-53.0) % Plt Count (150-450) k/uL Lymphocytes # (1.0-4.8) k/uL ABG pO2 (83-108) mmHg ABG Total CO2 (19-24) mmol/L ABG O2 Saturation (94-97) % Chloride 109 H (98-107) mmol/L BUN 41 H (9-20) mg/dL Creatinine 1.40 H (0.66-1.25) mg/dL Glucose 112 H (74-99) mg/dL POC Glucose (mg/dL) 132 H 131 H (75-99) mg/dL Magnesium 2.5 H (1.6-2.3) mg/dL AST 65 H (17-59) U/L Alkaline Phosphatase 35 L (38-126) U/L Total Protein 5.1 L (6.3-8.2) g/dL Albumin 2.9 L (3.5-5.0) g/dL 08/20/18 08/20/18 08/20/18 Range/Units 04:00 04:02 05:14 RBC 2.66 L (4.30-5.90) m/uL Hgb 7.6 L (13.0-17.5) gm/dL Hct 24.3 L (39.0-53.0) % Plt Count 106 L (150-450) k/uL Lymphocytes # 0.4 L (1.0-4.8) k/uL ABG pO2 (83-108) mmHg ABG Total CO2 (19-24) mmol/L ABG O2 Saturation (94-97) % Chloride (98-107) mmol/L BUN (9-20) mg/dL Creatinine (0.66-1.25) mg/dL Glucose (74-99) mg/dL POC Glucose (mg/dL) 128 H 113 H (75-99) mg/dL Magnesium (1.6-2.3) mg/dL AST (17-59) U/L Alkaline Phosphatase (38-126) U/L Total Protein (6.3-8.2) g/dL Albumin (3.5-5.0) g/dL 08/20/18 08/20/18 08/20/18 Range/Units 06:10 07:01 08:18 RBC (4.30-5.90) m/uL Hgb (13.0-17.5) gm/dL Hct (39.0-53.0) % Plt Count (150-450) k/uL Lymphocytes # (1.0-4.8) k/uL ABG pO2 (83-108) mmHg ABG Total CO2 (19-24) mmol/L ABG O2 Saturation (94-97) % Chloride (98-107) mmol/L BUN (9-20) mg/dL Creatinine (0.66-1.25) mg/dL Glucose (74-99) mg/dL POC Glucose (mg/dL) 123 H 127 H 118 H (75-99) mg/dL Magnesium (1.6-2.3) mg/dL AST (17-59) U/L Alkaline Phosphatase (38-126) U/L Total Protein (6.3-8.2) g/dL Albumin (3.5-5.0) g/dL 08/20/18 08/20/18 08/20/18 Range/Units 09:56 11:02 12:07 RBC (4.30-5.90) m/uL Hgb (13.0-17.5) gm/dL Hct (39.0-53.0) % Plt Count (150-450) k/uL Lymphocytes # (1.0-4.8) k/uL ABG pO2 141 H (83-108) mmHg ABG Total CO2 25 H (19-24) mmol/L ABG O2 Saturation 99.8 H (94-97) % Chloride (98-107) mmol/L BUN (9-20) mg/dL Creatinine (0.66-1.25) mg/dL Glucose (74-99) mg/dL POC Glucose (mg/dL) 114 H 111 H (75-99) mg/dL Magnesium (1.6-2.3) mg/dL AST (17-59) U/L Alkaline Phosphatase (38-126) U/L Total Protein (6.3-8.2) g/dL Albumin (3.5-5.0) g/dL
--- NOTE | 2018-08-20 13:48 | P.PN ---
Subjective Progress Note Date: 08/20/18 Principal diagnosis: Symptomatic multivessel coronary artery disease, status post CABG. Postoperative day #3 This is a 73-year-old white male patient of Dr. Joy Reagan, who presented emergency department on 08/13/2018 at 1840 evaluation of chest pain, associated with diaphoresis. The pain was non-radiating, and occurred after eating some spicy soup, patient was belching, and had some nausea. No vomiting. EKG showed some ST and T-wave abnormalities in the inferior, anterior, and lateral leads with T-wave inversion. Troponins were elevated at 0.128, 11.8, 11.8 and 9.270, patient was ruled in for non-ST elevated PA. Patient was placed on IV heparin, aspirin, Coreg, nitroglycerin and he underwent cardiac catheterization this afternoon with Dr. ALISHA Harper which showed a distal lesion of the left main of 70% before bifurcation into LAD and circumflex with calcification, 60% narrowing in the LAD at the origin of the first diagonal branch, 70% stenosis in the LAD at the origin of the second diagonal branch with probable thrombus, first obtuse marginal with 80-90% stenosis proximally, and 60% narrowing in the circumflex after the first obtuse marginal, total occlusion of the proximal RCA with some collateral circulation from the left system to the right. Patient has past medical history of coronary artery disease, COPD, diabetes mellitus type 2, hypertension, previous nicotine dependence, history of right nephrectomy in 1969 and chronic kidney disease. Patient was recommended to undergo coronary revascularization and cardiothoracic surgery has been consulted. We are seeing this patient for pulmonary evaluation. On 08/15/2018, the patient has no specific complaints. He is not having any chest pain. Resting comfortably in bed. Bedside spirometry was noted and there is no significant obstructive airway limitation. Chest x-ray was reviewed and showed some elevation of the right hemidiaphragm. Otherwise there is some subsegmental atelectatic changes in the lung bases. He is an ex- smoker. He is an obese male patient with a BMI of 39.0. No previous history of DVT or pulmonary embolism. No home O2. He is an ex-smoker. Overall performance status is good. On 08/16/2018 patient seen in follow-up on selective care unit. He sitting up on bed, in no acute distress, denies any shortness of breath. No chest pain, he is on heparin drip. Room air pulse ox is 94%, vital signs are stable. Lung sounds are clear. Patient is possibly scheduled for surgical revascularization surgery on 08/17/2018. No acute complaints overnight. Sinus rhythm. On 08/17/2018 patient seen in follow-up in the intensive care unit, he is status post three-vessel coronary artery bypass grafting, with CHAHAL to LAD, SVG to the PDA, and circumflex. Patient is currently sedated, intubated, on mechanical ventilator, and current vent settings are SIMV mode with a rate of 12 , tidal volume 500, FiO2 of 50% and PEEP of 10. IV drips include LR at a rate of 40, levothyroid at a rate of 10 mics per minute, Primacor is at 0.2 mics per kilo per minute, Precedex is at 0.2 mics per kilo per hour. Patient received 1500 of crystalloids and 1500 mL of 5% albumin, in addition to Cell Saver. [place] -Eliazar catheter is in place, with PA pressures of 50/32, CVP of 25, cardiac output of 7.3, and cardiac index of 3.6. Patient has 2 mediastinal chest tubes and left pleural chest tubes with small amount of sanguinous output. AV epicardial wires are in place, patient is currently being paced at her mode of AAI with a rate of 80 BPM. The blood work showed WBC of 8.6, hemoglobin of 8.5 , INR 1.2, sodium of 140, potassium is 4.8, chloride is 110, BUN of 21, creatinine is 1.09. Blood gas showed pO2 of 79, pCO2 of 53, pH of 7.25. Vent settings were adjusted, and rate was increased to IMV with a rate of 18 breaths per minute. Suero catheter is in place, and patient is producing 30-50 ML per hour. Reevaluated today on 08/18/2018, patient was extubated last night uneventfully. Presently on nasal cannula, in no form of distress. However he is on 8 L high flow nasal cannula. Hemodynamically stable, on Primacor and low dose levo fed. Patient is relatively asymptomatic, chest x-ray is reassuring. Hemoglobin today is 7.9. BUN is 24 creatinine is 1.42, slightly worse compared to yesterday. Reevaluated today on 08/19/2018, patient developed significant amount of agitation and restlessness last night, placed on Precedex, and now he is on BiPAP. Blood pressure is a bit marginal. His urine output was marginal earlier today, and he received Lasix. He was also placed on 11 proximal for blood pressure control. Presently on BiPAP, seems to be at confused, agitated when aroused, ABG is reasonable with a pO2 of 104 pCO2 of 36 pH of 7.36 this morning. Chest x-ray showed mostly mediastinal widening, likely projectional, otherwise no significant abnormality noted. No evidence of congestive heart failure, minimal asymmetry or atelectasis is noted. Reevaluated today on 08/20/2018, remains on BiPAP, did not tolerate high flow nasal cannula, desaturated down significantly, but was much better on BiPAP. ABG on 50% BiPAP showed a pO2 of 141 pCO2 of 38 pH of 7.41. Patient is off Precedex today, hence I recommended Ativan 0.5 up to 1 mg every 2 hours as needed, I have also started the patient on Seroquel. And he 5 mg by mouth twice a day. Chest x-ray is suggestive of good sized right-sided pleural effusion and possible right lower lobe atelectasis, ultrasound was ordered, and if the fluid is large enough may consider even thoracentesis. CBC was reviewed hemoglobin is 7.6 today WBC count is 6.6. Electrolytes were reviewed to be normal, renal functioning is improving again BUN is 41 creatinine 1.40 it was 1.60 yesterday Objective - Vital Signs Vital signs: Vital Signs Temp 98.6 F 08/20/18 08:00 Pulse 81 08/20/18 11:35 Resp 22 08/20/18 11:35 BP 99/54 08/19/18 17:00 Pulse Ox 100 08/20/18 11:00 Intake & Output 08/19/18 08/20/18 08/20/18 18:59 06:59 18:59 Intake Total 669.694 625.475 147.690 Output Total 590 800 220 Balance 79.694 -174.525 -72.310 Weight 113.5 kg 109.4 kg 109.4 kg Intake: IV 436 468 132 Lactated Ringers 1,000 ml 370 390 120 @ 20 mls/hr IV .Q24H [facility] Rx#:[id number] pressure bags 66 78 12 Intake, IV Titration 233.694 157.475 15.690 Amount Clevidipine Butyrate 25 50.000 mg In Empty Bag 1 bag @ 1 MG/HR 2 mls/hr IV .Q24H [facility] Rx#:[id number] Dexmedetomidine/0.9% NaCl 142.304 134.715 7.848 (Pmx) 400 mcg In Empty Bag 1 bag @ Titrate IV . Q0M [facility] Rx#:[id number] Insulin Regular 100 unit 41.390 22.760 7.842 In Sodium Chloride 0.9% 100 ml @ Per Protocol IV .Q0M [facility] Rx#:[id number] Output: Chest Tube Drainage 80 Left Pleural/Mediastinal 80 Urine 510 800 220 Other: Voiding Method Indwelling Catheter Indwelling Catheter Indwelling Catheter ABP, PAP, CO, CI - Last Documented Arterial Blood Pressure 118/54 Pulmonary Artery Pressure 40/20 Cardiac Output 6.7 Cardiac Index 3.3 - Exam Physical Exam: Revealed a 73-year-old white male, seems to be more comfortable today compared to yesterday, however he remains on BiPAP. HEENT: PERRLA, EOMI, no icterus. Dry mucous membranes. Chest: He managed to breath sounds at the right base, no rhonchi, no wheezes, symmetrical chest expansion, no chest wall tenderness. Cardiac Exam: [Normal S1 and S2, no S3 gallop, no murmur.] Abdomen: [Obese soft no megaly no rebound no guarding. Positive bowel sounds. Extremities: 1+ bipedal edema, no cyanosis. Neurological Exam: More alert today, less sedated, slightly confused. On BiPAP. Psychiatric: Her but didn't episodes of agitation and confusion according to the nurses. Skin: No rashes. No erythema.] - Labs CBC & Chem 7: 08/20/18 04:00 08/20/18 04:00 Labs: Abnormal Lab Results - Last 24 Hours (Table) 08/19/18 08/19/18 08/19/18 Range/Units 14:00 15:28 17:02 RBC (4.30-5.90) m/uL Hgb (13.0-17.5) gm/dL Hct (39.0-53.0) % Plt Count (150-450) k/uL Lymphocytes # (1.0-4.8) k/uL ABG pO2 (83-108) mmHg ABG Total CO2 (19-24) mmol/L ABG O2 Saturation (94-97) % Chloride (98-107) mmol/L BUN (9-20) mg/dL Creatinine (0.66-1.25) mg/dL Glucose (74-99) mg/dL POC Glucose (mg/dL) 139 H 147 H 122 H (75-99) mg/dL Magnesium (1.6-2.3) mg/dL AST (17-59) U/L Alkaline Phosphatase (38-126) U/L Total Protein (6.3-8.2) g/dL Albumin (3.5-5.0) g/dL 08/19/18 08/19/18 08/19/18 Range/Units 18:18 19:07 19:50 RBC (4.30-5.90) m/uL Hgb (13.0-17.5) gm/dL Hct (39.0-53.0) % Plt Count (150-450) k/uL Lymphocytes # (1.0-4.8) k/uL ABG pO2 (83-108) mmHg ABG Total CO2 (19-24) mmol/L ABG O2 Saturation (94-97) % Chloride (98-107) mmol/L BUN (9-20) mg/dL Creatinine (0.66-1.25) mg/dL Glucose (74-99) mg/dL POC Glucose (mg/dL) 114 H 118 H 121 H (75-99) mg/dL Magnesium (1.6-2.3) mg/dL AST (17-59) U/L Alkaline Phosphatase (38-126) U/L Total Protein (6.3-8.2) g/dL Albumin (3.5-5.0) g/dL 08/19/18 08/19/18 08/19/18 Range/Units 20:05 21:05 22:05 RBC (4.30-5.90) m/uL Hgb (13.0-17.5) gm/dL Hct (39.0-53.0) % Plt Count (150-450) k/uL Lymphocytes # (1.0-4.8) k/uL ABG pO2 (83-108) mmHg ABG Total CO2 (19-24) mmol/L ABG O2 Saturation (94-97) % Chloride (98-107) mmol/L BUN (9-20) mg/dL Creatinine (0.66-1.25) mg/dL Glucose (74-99) mg/dL POC Glucose (mg/dL) 122 H 112 H 124 H (75-99) mg/dL Magnesium (1.6-2.3) mg/dL AST (17-59) U/L Alkaline Phosphatase (38-126) U/L Total Protein (6.3-8.2) g/dL Albumin (3.5-5.0) g/dL 08/19/18 08/20/18 08/20/18 Range/Units 23:05 00:16 01:08 RBC (4.30-5.90) m/uL Hgb (13.0-17.5) gm/dL Hct (39.0-53.0) % Plt Count (150-450) k/uL Lymphocytes # (1.0-4.8) k/uL ABG pO2 (83-108) mmHg ABG Total CO2 (19-24) mmol/L ABG O2 Saturation (94-97) % Chloride (98-107) mmol/L BUN (9-20) mg/dL Creatinine (0.66-1.25) mg/dL Glucose (74-99) mg/dL POC Glucose (mg/dL) 140 H 113 H 120 H (75-99) mg/dL Magnesium (1.6-2.3) mg/dL AST (17-59) U/L Alkaline Phosphatase (38-126) U/L Total Protein (6.3-8.2) g/dL Albumin (3.5-5.0) g/dL 08/20/18 08/20/18 08/20/18 Range/Units 02:14 03:04 04:00 RBC (4.30-5.90) m/uL Hgb (13.0-17.5) gm/dL Hct (39.0-53.0) % Plt Count (150-450) k/uL Lymphocytes # (1.0-4.8) k/uL ABG pO2 (83-108) mmHg ABG Total CO2 (19-24) mmol/L ABG O2 Saturation (94-97) % Chloride 109 H (98-107) mmol/L BUN 41 H (9-20) mg/dL Creatinine 1.40 H (0.66-1.25) mg/dL Glucose 112 H (74-99) mg/dL POC Glucose (mg/dL) 132 H 131 H (75-99) mg/dL Magnesium 2.5 H (1.6-2.3) mg/dL AST 65 H (17-59) U/L Alkaline Phosphatase 35 L (38-126) U/L Total Protein 5.1 L (6.3-8.2) g/dL Albumin 2.9 L (3.5-5.0) g/dL 08/20/18 08/20/18 08/20/18 Range/Units 04:00 04:02 05:14 RBC 2.66 L (4.30-5.90) m/uL Hgb 7.6 L (13.0-17.5) gm/dL Hct 24.3 L (39.0-53.0) % Plt Count 106 L (150-450) k/uL Lymphocytes # 0.4 L (1.0-4.8) k/uL ABG pO2 (83-108) mmHg ABG Total CO2 (19-24) mmol/L ABG O2 Saturation (94-97) % Chloride (98-107) mmol/L BUN (9-20) mg/dL Creatinine (0.66-1.25) mg/dL Glucose (74-99) mg/dL POC Glucose (mg/dL) 128 H 113 H (75-99) mg/dL Magnesium (1.6-2.3) mg/dL AST (17-59) U/L Alkaline Phosphatase (38-126) U/L Total Protein (6.3-8.2) g/dL Albumin (3.5-5.0) g/dL 08/20/18 08/20/18 08/20/18 Range/Units 06:10 07:01 08:18 RBC (4.30-5.90) m/uL Hgb (13.0-17.5) gm/dL Hct (39.0-53.0) % Plt Count (150-450) k/uL Lymphocytes # (1.0-4.8) k/uL ABG pO2 (83-108) mmHg ABG Total CO2 (19-24) mmol/L ABG O2 Saturation (94-97) % Chloride (98-107) mmol/L BUN (9-20) mg/dL Creatinine (0.66-1.25) mg/dL Glucose (74-99) mg/dL POC Glucose (mg/dL) 123 H 127 H 118 H (75-99) mg/dL Magnesium (1.6-2.3) mg/dL AST (17-59) U/L Alkaline Phosphatase (38-126) U/L Total Protein (6.3-8.2) g/dL Albumin (3.5-5.0) g/dL 08/20/18 08/20/18 08/20/18 Range/Units 09:56 11:02 12:07 RBC (4.30-5.90) m/uL Hgb (13.0-17.5) gm/dL Hct (39.0-53.0) % Plt Count (150-450) k/uL Lymphocytes # (1.0-4.8) k/uL ABG pO2 141 H (83-108) mmHg ABG Total CO2 25 H (19-24) mmol/L ABG O2 Saturation 99.8 H (94-97) % Chloride (98-107) mmol/L BUN (9-20) mg/dL Creatinine (0.66-1.25) mg/dL Glucose (74-99) mg/dL POC Glucose (mg/dL) 114 H 111 H (75-99) mg/dL Magnesium (1.6-2.3) mg/dL AST (17-59) U/L Alkaline Phosphatase (38-126) U/L Total Protein (6.3-8.2) g/dL Albumin (3.5-5.0) g/dL Assessment and Plan Assessment: Impression: #1. Status post CABG for coronary artery disease as noted below, postoperative day #3. #2. Multivessel coronary artery disease, involving 70% left main stenosis, 70% LAD stenosis with thrombus, age 85% OM stenosis, status post three-vessel coronary artery bypass grafting with CHAHAL to LAD, SVG to the PDA and circumflex , postop day #3 #3 Ischemic cardiomyopathy, poor LV dysfunction.. #5. Type 2 diabetes, requiring insulin. Presently well-controlled. #6 intermittent episodes of psychosis and delirium, hence I have recommended starting the patient on Seroquel. Continue Ativan 0.5 mg 1 mg every 2 hours when necessary. #8 multiple comorbidities including underlying COPD, previous nephrectomy, prostate cancer, tobacco dependence and remission, hyperlipidemia, benign essential hypertension. Recommendation: Start patient on Seroquel, continue Ativan, ordered ultrasound of the chest, if the effusion is large enough may consider a right-sided thoracentesis. ABG was noted to be reasonable on BiPAP, hence we'll continue the same. Patient will remain in the ICU. Time with Patient: Less than 30
[2018-08-20] MEDS: QUEtiapine 25 MG TAB PO SCH ×2 (14:01→20:06)
[2018-08-20 14:16] LABS: Glucose,Whole Blood 156 mg/dL (75-99)
--- NOTE | 2018-08-20 14:36 | US ---
EXAMINATION TYPE: US chest DATE OF EXAM: 08/20/2018 COMPARISON: CXR earlier today. CLINICAL HISTORY: Markings for thoracentesis by pulmonary staff. Pleural effusion TECHNIQUE: Targeted ultrasound of the posterior lower bilateral hemithoraces EXAM MEASUREMENTS: Right Pleural Effusion pocket size: 2.6 cm Left Pleural Effusion pocket size: 2.0 cm Right side NOT marked for possible thoracentesis outside the dept. Left side NOT marked for possible thoracentesis outside the dept. Pulmonologists are able to review the images in the patient?s EMR. Small to tiny bilateral pleural effusions are seen on ultrasound images saved. Findings correlate wit h same day chest x-ray. IMPRESSIONS: As above.
[2018-08-20] MEDS: LORazepam 2 MG/ML INJ IV PRN ×3 (15:00→15:45)
[2018-08-20] MEDS ORDERED: HALOPERIDOL LACTATE 5 MG/ML 1 ML VIAL ONE (15:30)
[2018-08-20 15:37] LABS: ABG Base Excess -1.9 mmol/L; ABG HCO3 24 mmol/L (21-25); ABG Oxygen Saturation 99.7 % (94-97); ABG PCO2 46 mmHg (35-45); ABG PH 7.32 (7.35-7.45); ABG PO2 150 mmHg (83-108); ABG TCO2 26 mmol/L (19-24)
[2018-08-20] MEDS ORDERED: METOPROLOL TARTRATE 5 MG/5 ML VIAL IVP ONE (15:39)
[2018-08-20] MEDS ORDERED: DEXMEDETOMIDINE/0.9% NACL(PMX) 400 MCG in EMPTY BAG 1 BAG IV SCH (15:45)
[2018-08-20 16:45] LABS: Glucose,Whole Blood 94 mg/dL (75-99)
[2018-08-20] MEDS: DEXTROSE/WATER 1 500ML.BAG with DOPamine DRIP 800 MG IV SCH (16:51)
[2018-08-20] MEDS: ALBUMIN HUMAN 5% 250 ML in EMPTY BAG 1 BAG IVPB PRN (17:30)
[2018-08-20 18:39] LABS: Glucose,Whole Blood 114 mg/dL (75-99)
[2018-08-20 19:51] LABS: Glucose,Whole Blood 127 mg/dL (75-99)
[2018-08-20] MEDS: SENNOSIDES-DOCUSATE SODIUM 1 EACH TAB PO SCH (20:06)
[2018-08-20] MEDS: TAMSULOSIN 0.4 MG CAP.ER.24H PO SCH (20:06)
[2018-08-20] MEDS: PROPOFOL 1,000 MG in EMPTY BAG 1 BAG IV SCH (20:45)
[2018-08-20 21:03] LABS: Glucose,Whole Blood 144 mg/dL (75-99)
--- NOTE | 2018-08-20 21:12 | XR ---
EXAMINATION TYPE: XR chest 1V portable DATE OF EXAM: 08/20/2018 COMPARISON: Today HISTORY: Tube placement TECHNIQUE: Single frontal view of the chest is obtained. FINDINGS: There is endotracheal tube with the tip 5 cm from the felicita. There is right jugular marah ter with tip over the superior vena cava. There is no pneumothorax. There is blunting of right costop hrenic angle. Heart is enlarged. There is mild pulmonary congestion. IMPRESSION: Right pleural effusion and bilateral lower lobe pulmonary infiltrates. There is probably mild heart failure. Endotracheal tube is in good position. Heart and lungs appear unchanged.
[2018-08-20 22:11] LABS: ABG HCO3 23 mmol/L (21-25); ABG Oxygen Saturation 99.3 % (94-97); ABG PCO2 43 mmHg (35-45); ABG PH 7.34 (7.35-7.45); ABG PO2 124 mmHg (83-108); ABG TCO2 24 mmol/L (19-24)
[2018-08-20 22:13] LABS: Glucose,Whole Blood 167 mg/dL (75-99)
[2018-08-20] MEDS: LACTATED RINGERS 1,000 ML IV SCH (22:16)
[2018-08-20 23:12] LABS: Glucose,Whole Blood 145 mg/dL (75-99)
[2018-08-21 00:07] LABS: Glucose,Whole Blood 125 mg/dL (75-99)
[2018-08-21] MEDS: HEPARIN SODIUM,PORCINE 5,000 UNIT/ML 1 ML VIAL SQ SCH ×3 (00:30→15:42)
[2018-08-21 00:58] LABS: Glucose,Whole Blood 120 mg/dL (75-99)
[2018-08-21] MEDS: PROPOFOL 1,000 MG in EMPTY BAG 1 BAG IV SCH ×6 (01:01→20:00)
[2018-08-21 02:56] LABS: Glucose,Whole Blood 116 mg/dL (75-99)
[2018-08-21 04:36] LABS: Basophils % (A) 0 %; Eosinophils # (A) 0.1 k/uL (0-0.7); Eosinophils % (A) 1 %; HCT 23.7 % (39.0-53.0); HGB 7.3 gm/dL (13.0-17.5); Hypochromasia Moderate; Lymphocytes # (A) 0.6 k/uL (1.0-4.8); Lymphocytes % (A) 8 %; MCH 28.9 pg (25.0-35.0); MCV 93.1 fL (80.0-100.0); Monocytes # (A) 0.3 k/uL (0-1.0); Monocytes % (A) 5 %; Neutrophils % (A) 84 %; Platelet Count 148 k/uL (150-450); RBC 2.54 m/uL (4.30-5.90); RDW 15.4 % (11.5-15.5); WBC 7.1 k/uL (3.8-10.6)
[2018-08-21 05:04] LABS: Albumin 2.8 g/dL (3.5-5.0); Calcium 8.4 mg/dL (8.4-10.2); Magnesium 2.7 mg/dL (1.6-2.3); Phosphorus 4.2 mg/dL (2.5-4.5); Potassium 4.5 mmol/L (3.5-5.1); Total Bilirubin 0.7 mg/dL (0.2-1.3); Total Protein 5.1 g/dL (6.3-8.2)
[2018-08-21 05:12] LABS: Glucose,Whole Blood 113 mg/dL (75-99)
[2018-08-21 06:12] LABS: Glucose,Whole Blood 122 mg/dL (75-99)
[2018-08-21 07:06] LABS: Glucose,Whole Blood 122 mg/dL (75-99)
--- NOTE | 2018-08-21 07:13 | XR ---
EXAMINATION TYPE: XR chest 1V portable DATE OF EXAM: 08/21/2018 COMPARISON: 08/20/2018 HISTORY: SOB, Follow Up FINDINGS: Indwelling tubes and catheters are unchanged. No change in bibasilar opacities. Stable appearance of the cardio-mediastinal structures at this time. Pleural effusion unchanged. IMPRESSION: 1. Stable portable chest. Clinical correlation and follow up until resolution is recommended.
[2018-08-21 07:33] LABS: ABG HCO3 23 mmol/L (21-25); ABG Oxygen Saturation 96.4 % (94-97); ABG PCO2 40 mmHg (35-45); ABG PH 7.36 (7.35-7.45); ABG PO2 82 mmHg (83-108); ABG TCO2 24 mmol/L (19-24)
[2018-08-21] MEDS: IPRATROPIUM-ALBUTEROL 3 ML NEB INHALATION SCH ×4 (07:35→19:21)
[2018-08-21 07:45] LABS: Glucose,Whole Blood 124 mg/dL (75-99)
[2018-08-21] MEDS: INSULIN ASPART 100 UNIT/ML 1 ML 10 ML VIAL SQ SCH ×4 (08:53→20:46)
[2018-08-21] MEDS: CHLORHEXIDINE GLUCONATE 15 ML CUP MUCOUS MEM SCH ×2 (09:00→21:02)
[2018-08-21] MEDS: QUEtiapine 25 MG TAB PO SCH ×2 (09:41→23:30)
[2018-08-21] MEDS: ASCORBIC ACID 500 MG TAB PO SCH ×2 (09:41→16:34)
[2018-08-21] MEDS: ATORVASTATIN 40 MG TAB PO SCH (09:44)
[2018-08-21] MEDS: METOPROLOL TARTRATE 12.5 MG TAB PO SCH ×2 (09:44→21:03)
[2018-08-21] MEDS: ASPIRIN 325 MG TAB PO SCH (09:44)
[2018-08-21] MEDS: CLOPIDOGREL 75 MG TAB PO SCH (09:44)
--- NOTE | 2018-08-21 09:45 | P.PN ---
Subjective Progress Note Date: 08/21/18 Principal diagnosis: Non-ST elevation myocardial infarction, impaired left ventricular systolic function with EF 20-25%. History of hypertension, hypertriglyceridemia insulin- dependent diabetes mellitus with preoperative hemoglobin A1c 7.1%, COPD with preoperative FEV1 87% of predicted, previous tobacco dependence, prostate cancer with radiation, right nephrectomy, obesity, BPH. POD #4 urgent coronary artery bypass grafting 3 vessels, left internal mammary artery to left anterior descending artery, reverse saphenous vein graft to obtuse marginal artery, reverse saphenous vein graft to posterior descending artery, endoscopic vein harvest of the left greater saphenous vein, epi-aortic ultrasound, intraoperative transesophageal echocardiogram, closure of sternum using titanium plates and Howard cable system. Postoperative delirium, an unexpected outcome. Postoperative acute respiratory distress requiring reintubation, prolonged mechanical ventilation, an unexpected outcome. Patient had an episode of respiratory distress last night with extreme agitation. He was reintubated and sedated on propofol. Remains mechanically ventilated and sedated this morning. Became hypotensive last night after intubation requiring initiation of levo, currently being titrated down. Objective - Vital Signs Vital signs: Vital Signs Temp 97.7 F 08/21/18 08:00 Pulse 79 08/21/18 08:00 Resp 18 08/21/18 08:00 BP 73/47 08/20/18 21:45 Pulse Ox 100 08/21/18 08:00 Intake & Output 08/20/18 08/21/18 08/21/18 18:59 06:59 18:59 Intake Total 684.316 754.939 104.520 Output Total 560 428 40 Balance 124.316 326.939 64.520 Weight 109.4 kg 110.3 kg 110.3 kg Intake: IV 411 422 36 Lactated Ringers 1,000 ml 360 350 30 @ 20 mls/hr IV .Q24H [facility] Rx#:[id number] pressure bags 51 72 6 Intake, IV Titration 273.316 332.939 68.520 Amount Albumin Human 5% 500 ml 250 In Empty Bag 1 bag @ 250 mls/hr IVPB ONCE ONE Rx#: [id number] Dexmedetomidine/0.9% NaCl 7.848 (Pmx) 400 mcg In Empty Bag 1 bag @ Titrate IV . Q0M [facility] Rx#:[id number] Dexmedetomidine/0.9% NaCl 48.529 (Pmx) 400 mcg In Empty Bag 1 bag @ Titrate IV . Q0M [facility] Rx#:[id number] Insulin Regular 100 unit 15.468 19.504 0.758 In Sodium Chloride 0.9% 100 ml @ Per Protocol IV .Q0M [facility] Rx#:[id number] Norepinephrine 16 mg In 86.594 4.212 Sodium Chloride 0.9% 250 ml @ Titrate IV .Q0M [facility] Rx#:[id number] Propofol 1,000 mg In 178.312 63.55 Empty Bag 1 bag @ Titrate IV .Q0M [facility] Rx#: [id number] Output: Urine 560 428 40 Other: Voiding Method Indwelling Catheter Indwelling Catheter ABP, PAP, CO, CI - Last Documented Arterial Blood Pressure 103/48 Pulmonary Artery Pressure 40/20 Cardiac Output 6.7 Cardiac Index 3.3 - Constitutional General appearance: Present: cooperative, no acute distress, obese - Respiratory Details: Lungs sounds very diminished bilaterally. Respirations even, nonlabored on mechanical ventilation with oxygen saturation 99%. Current ventilator settings assist control mode, FiO2 70%, tidal volume 500, respiratory rate 14, PEEP 5. 7.5 ET tube present, 24 at the lip. ABGs this morning on those settings 7.36/40 /82/23/96%/-3.0. - Cardiovascular Details: S1, S2 present. Regular rate and rhythm, atrial paced on telemetry with underlying sinus rhythm with a rate in the 60s. A/V epicardial pacemaker wires present, connected to generator, AAI mode with rate 80 bpm. Palpable peripheral pulses bilaterally. Trace generalized edema present. No calf pain or tenderness noted. Right internal jugular Cordis, right radial arterial line present. Remains on renal dose dopamine and currently on leave the at 1 mcg. Heart hugger, antiembolism stockings, SCDs present. - Gastrointestinal Gastrointestinal Comment(s): Abdomen soft, nontender, nondistended. Active bowel sounds present 4 quadrants. NG tube present, connected to low intermittent suction with minimal output. Positive flatus, negative bowel movement. - Genitourinary Genitourinary Comment(s): Suero present draining clear, yellow urine. Output 30-60 mL/h overnight. - Integumentary Integumentary Comment(s): Skin is warm and dry with evidence of good perfusion. Anterior chest incision well approximated and covered with dry intact dressing. Left lower extremity EVH site well approximated, ecchymosis present, expected. - Psychiatric Psychiatric Comment(s): Sedated with propofol on mechanical ventilation. Does withdraw to painful stimuli. - Allied health notes Allied health notes reviewed: nursing - Labs CBC & Chem 7: 08/21/18 04:24 08/21/18 04:24 Labs: Abnormal Lab Results - Last 24 Hours (Table) 08/20/18 08/20/18 08/20/18 Range/Units 09:56 11:02 12:07 RBC (4.30-5.90) m/uL Hgb (13.0-17.5) gm/dL Hct (39.0-53.0) % Plt Count (150-450) k/uL Lymphocytes # (1.0-4.8) k/uL ABG pH (7.35-7.45) ABG pCO2 (35-45) mmHg ABG pO2 141 H (83-108) mmHg ABG Total CO2 25 H (19-24) mmol/L ABG O2 Saturation 99.8 H (94-97) % Chloride (98-107) mmol/L BUN (9-20) mg/dL Creatinine (0.66-1.25) mg/dL Glucose (74-99) mg/dL POC Glucose (mg/dL) 114 H 111 H (75-99) mg/dL Magnesium (1.6-2.3) mg/dL Alkaline Phosphatase (38-126) U/L Total Protein (6.3-8.2) g/dL Albumin (3.5-5.0) g/dL 08/20/18 08/20/18 08/20/18 Range/Units 14:14 15:35 18:38 RBC (4.30-5.90) m/uL Hgb (13.0-17.5) gm/dL Hct (39.0-53.0) % Plt Count (150-450) k/uL Lymphocytes # (1.0-4.8) k/uL ABG pH 7.32 L (7.35-7.45) ABG pCO2 46 H (35-45) mmHg ABG pO2 150 H (83-108) mmHg ABG Total CO2 26 H (19-24) mmol/L ABG O2 Saturation 99.7 H (94-97) % Chloride (98-107) mmol/L BUN (9-20) mg/dL Creatinine (0.66-1.25) mg/dL Glucose (74-99) mg/dL POC Glucose (mg/dL) 156 H 114 H (75-99) mg/dL Magnesium (1.6-2.3) mg/dL Alkaline Phosphatase (38-126) U/L Total Protein (6.3-8.2) g/dL Albumin (3.5-5.0) g/dL 08/20/18 08/20/18 08/20/18 Range/Units 19:49 21:01 22:04 RBC (4.30-5.90) m/uL Hgb (13.0-17.5) gm/dL Hct (39.0-53.0) % Plt Count (150-450) k/uL Lymphocytes # (1.0-4.8) k/uL ABG pH 7.34 L (7.35-7.45) ABG pCO2 (35-45) mmHg ABG pO2 124 H (83-108) mmHg ABG Total CO2 (19-24) mmol/L ABG O2 Saturation 99.3 H (94-97) % Chloride (98-107) mmol/L BUN (9-20) mg/dL Creatinine (0.66-1.25) mg/dL Glucose (74-99) mg/dL POC Glucose (mg/dL) 127 H 144 H (75-99) mg/dL Magnesium (1.6-2.3) mg/dL Alkaline Phosphatase (38-126) U/L Total Protein (6.3-8.2) g/dL Albumin (3.5-5.0) g/dL 08/20/18 08/20/18 08/21/18 Range/Units 22:11 23:10 00:05 RBC (4.30-5.90) m/uL Hgb (13.0-17.5) gm/dL Hct (39.0-53.0) % Plt Count (150-450) k/uL Lymphocytes # (1.0-4.8) k/uL ABG pH (7.35-7.45) ABG pCO2 (35-45) mmHg ABG pO2 (83-108) mmHg ABG Total CO2 (19-24) mmol/L ABG O2 Saturation (94-97) % Chloride (98-107) mmol/L BUN (9-20) mg/dL Creatinine (0.66-1.25) mg/dL Glucose (74-99) mg/dL POC Glucose (mg/dL) 167 H 145 H 125 H (75-99) mg/dL Magnesium (1.6-2.3) mg/dL Alkaline Phosphatase (38-126) U/L Total Protein (6.3-8.2) g/dL Albumin (3.5-5.0) g/dL 08/21/18 08/21/18 08/21/18 Range/Units 00:57 02:55 04:24 RBC 2.54 L (4.30-5.90) m/uL Hgb 7.3 L (13.0-17.5) gm/dL Hct 23.7 L (39.0-53.0) % Plt Count 148 L (150-450) k/uL Lymphocytes # 0.6 L (1.0-4.8) k/uL ABG pH (7.35-7.45) ABG pCO2 (35-45) mmHg ABG pO2 (83-108) mmHg ABG Total CO2 (19-24) mmol/L ABG O2 Saturation (94-97) % Chloride (98-107) mmol/L BUN (9-20) mg/dL Creatinine (0.66-1.25) mg/dL Glucose (74-99) mg/dL POC Glucose (mg/dL) 120 H 116 H (75-99) mg/dL Magnesium (1.6-2.3) mg/dL Alkaline Phosphatase (38-126) U/L Total Protein (6.3-8.2) g/dL Albumin (3.5-5.0) g/dL 08/21/18 08/21/18 08/21/18 Range/Units 04:24 05:10 06:11 RBC (4.30-5.90) m/uL Hgb (13.0-17.5) gm/dL Hct (39.0-53.0) % Plt Count (150-450) k/uL Lymphocytes # (1.0-4.8) k/uL ABG pH (7.35-7.45) ABG pCO2 (35-45) mmHg ABG pO2 (83-108) mmHg ABG Total CO2 (19-24) mmol/L ABG O2 Saturation (94-97) % Chloride 110 H (98-107) mmol/L BUN 55 H (9-20) mg/dL Creatinine 1.63 H (0.66-1.25) mg/dL Glucose 105 H (74-99) mg/dL POC Glucose (mg/dL) 113 H 122 H (75-99) mg/dL Magnesium 2.7 H (1.6-2.3) mg/dL Alkaline Phosphatase 37 L (38-126) U/L Total Protein 5.1 L (6.3-8.2) g/dL Albumin 2.8 L (3.5-5.0) g/dL 08/21/18 08/21/18 08/21/18 Range/Units 07:05 07:30 07:44 RBC (4.30-5.90) m/uL Hgb (13.0-17.5) gm/dL Hct (39.0-53.0) % Plt Count (150-450) k/uL Lymphocytes # (1.0-4.8) k/uL ABG pH (7.35-7.45) ABG pCO2 (35-45) mmHg ABG pO2 82 L (83-108) mmHg ABG Total CO2 (19-24) mmol/L ABG O2 Saturation (94-97) % Chloride (98-107) mmol/L BUN (9-20) mg/dL Creatinine (0.66-1.25) mg/dL Glucose (74-99) mg/dL POC Glucose (mg/dL) 122 H 124 H (75-99) mg/dL Magnesium (1.6-2.3) mg/dL Alkaline Phosphatase (38-126) U/L Total Protein (6.3-8.2) g/dL Albumin (3.5-5.0) g/dL - Imaging and Cardiology Chest x-ray: report reviewed, image reviewed Assessment and Plan (1) CAD (coronary artery disease) Current Visit: Yes Status: Chronic Code(s): I25.10 - ATHSCL HEART DISEASE OF [place] CORONARY ARTERY W/O ANG PCTRS SNOMED Code(s): 82267650 (2) Left main coronary artery disease Current Visit: Yes Status: Chronic Code(s): I25.10 - ATHSCL HEART DISEASE OF [place] CORONARY ARTERY W/O ANG PCTRS SNOMED Code(s): 826312452 (3) Hypertension Current Visit: Yes Status: Chronic Code(s): I10 - ESSENTIAL (PRIMARY) HYPERTENSION SNOMED Code(s): 37212130 (4) Hyperlipidemia Current Visit: Yes Status: Chronic Code(s): E78.5 - HYPERLIPIDEMIA, UNSPECIFIED SNOMED Code(s): 35941212 (5) Insulin dependent diabetes mellitus Current Visit: Yes Status: Chronic Code(s): E11.9 - TYPE 2 DIABETES MELLITUS WITHOUT COMPLICATIONS; Z79.4 - MUSIC RESEARCHER (CURRENT) USE OF INSULIN SNOMED Code(s): 97116938 (6) Tobacco dependence in remission Current Visit: No Status: Resolved Code(s): F17.201 - NICOTINE DEPENDENCE, UNSPECIFIED, IN REMISSION SNOMED Code(s): 433708249 (7) COPD (chronic obstructive pulmonary disease) Current Visit: Yes Status: Chronic Code(s): J44.9 - CHRONIC OBSTRUCTIVE PULMONARY DISEASE, UNSPECIFIED SNOMED Code(s): 25225257 (8) History of nephrectomy Current Visit: Yes Status: Chronic Code(s): Z90.5 - ACQUIRED ABSENCE OF KIDNEY SNOMED Code(s): 57500640116601 (9) Family history of heart disease Current Visit: Yes Status: Chronic Code(s): Z82.49 - FAMILY HX OF ISCHEM HEART DIS AND OTH DIS OF THE CIRC SYS SNOMED Code(s): 932912454 (10) History of prostate cancer Current Visit: Yes Status: Chronic Code(s): Z85.46 - PERSONAL HISTORY OF MALIGNANT NEOPLASM OF PROSTATE SNOMED Code(s): 884723101 (11) NSTEMI (non-ST elevated myocardial infarction) Current Visit: Yes Status: Acute Code(s): I21.4 - NON-ST ELEVATION (NSTEMI) MYOCARDIAL INFARCTION SNOMED Code(s): 940236092 Plan: 1. Continue aspirin, statin, Plavix, beta laurie. Will increase beta laurie therapy as tolerated. 2. Continue renal dose dopamine. 3. Wean O2 as tolerated. Ventilator management per pulmonology. Recommend steroids, will defer to pulmonology. 4. Increase activity once extubated. PT/OT/cardiac rehab following. 6. PICC line placement ordered per interventional radiology. Once placed, discontinue Cordis. 7. Nephrology consulted, GFR 41, patient with solitary kidney. 7. Bronchodilators per pulmonology. 8. Insulin per primary care service. 7. Will monitor daily labs and x-rays. 9. GI prophylaxis with Protonix. DVT prophylaxis with subcu heparin, SCDs. 10. Pain control with current medication regimen. 11. Continue Flomax for BPH. 12. Avoid nephrotoxic agents. 13. More recommendations to follow. Time with Patient: Greater than 30
[2018-08-21] MEDS: PANTOPRAZOLE 40 MG/10 ML VIAL IVP SCH (09:48)
--- NOTE | 2018-08-21 10:39 | P.PN ---
Subjective Progress Note Date: 08/21/18 This is a 73-year-old male, patient of [facility]. He has a known past medical history of hypertension, diabetes mellitus, COPD, right nephrectomy 1970 and former smoker. Patient presents to the emergency room with complaints of chest pain with pressure and heaviness and diaphoresis. Symptoms had started yesterday. Patient was diagnosed with a non-ST elevated [place]. Initial troponin 0.128 then 11.6 and 11.8. Patient was started on IV heparin cardiology was consulted. And patient underwent heart catheterization today. The heart catheterization shows total occlusion of the right coronary artery. Left main is 70-75% stenosed. The left anterior descending coronary artery has a mid lesion of 70% with thrombus. Obtuse marginal had 80-85% stenosis. Cardiology is recommending open-heart surgery. That her surgery has been consulted. They have already evaluated patient and surgery we'll possibly be on Friday. Pulmonary service has also been consulted. Patient is receiving IV fluids. He was slightly dehydrated on admission creatinine was 1.44. Unclear baseline creatinine. Creatinine in March 2018 was 1.3. Patient currently is chest pain-free. He reports that symptoms started after eating spicy soup and when he came back home he belched a large amount of gas and is relieved the pressure. He has been chest pain-free. Cardiology has placed him on IV heparin and Aggrastat. On 08/15/2018 patient was seen and examined he is alert and oriented 3 in no apparent distress he is sitting at the edge of the bed and he denies any chest pain there is no shortness of breath at rest he has occasional cough no palpitation no nausea or vomiting no abdominal pain no diarrhea no constipation no burning with urination no frequency or urgency and no hematuria. On 08/16/2018 patient was seen and examined on the telemetry floor he is alert and oriented 3 in no distress he denies any new episodes of chest pain he denies any other symptoms there is no fever or chills no headache or dizziness no shortness of breath no cough no nausea or vomiting no abdominal pain no diarrhea no burning was urination no frequency or urgency and no hematuria On 08/17/2018 Patient had coronary artery bypass graft [address] Hannah today. Patient currently intubated and on sedation. Patient remains in the intensive care unit. Patient currently on levophed for pressure support. On 08/18/2018 patient is currently postop day 1 and coronary artery bypass graft surgery. Patient is currently up in chair. Patient was extubated throughout night. Precedex drip has been DC'd per cardiovascular team. Patient remains sleepy but alert and arousable. At this time patient denies shortness of breath. Denies nausea vomiting or diarrhea. Denies any urinary burning. On 08/19/2018 patient is currently postop day 2 from coronary artery bypass graft. Per nursing staff patient is confused. Patient is also requiring BiPAP to maintain adequate oxygenation. Discussed case with Luna from the cardiovascular surgical team. Patient remains on Precedex drip. safety sitting at bedside. On 08/20/2018 patient is currently postop day 2 from coronary artery bypass graft. Patient remains on BiPAP for adequate oxygen. Precedex drip has been DC 'd. Patient does seem more alert. Patient followed closely by cardiovascular surgical team and critical care On 08/21/2018 patient got reintubated last night due to agitation and hypoxia. Patient is currently on propofol for sedation. Patient also started on Levophed for pressure support. Critical care team following closely. Objective - Vital Signs Vital signs: Vital Signs Temp 97.7 F 08/21/18 08:00 Pulse 79 08/21/18 10:00 Resp 21 08/21/18 10:00 BP 73/47 08/20/18 21:45 Pulse Ox 99 08/21/18 10:00 Intake & Output 08/20/18 08/21/18 08/21/18 18:59 06:59 18:59 Intake Total 684.316 754.939 166.520 Output Total 560 428 220 Balance 124.316 326.939 -53.480 Weight 109.4 kg 110.3 kg 110.3 kg Intake: IV 411 422 98 Lactated Ringers 1,000 ml 360 350 80 @ 20 mls/hr IV .Q24H [facility] Rx#:[id number] pressure bags 51 72 18 Intake, IV Titration 273.316 332.939 68.520 Amount Albumin Human 5% 500 ml 250 In Empty Bag 1 bag @ 250 mls/hr IVPB ONCE ONE Rx#: [id number] Dexmedetomidine/0.9% NaCl 7.848 (Pmx) 400 mcg In Empty Bag 1 bag @ Titrate IV . Q0M [facility] Rx#:[id number] Dexmedetomidine/0.9% NaCl 48.529 (Pmx) 400 mcg In Empty Bag 1 bag @ Titrate IV . Q0M [facility] Rx#:[id number] Insulin Regular 100 unit 15.468 19.504 0.758 In Sodium Chloride 0.9% 100 ml @ Per Protocol IV .Q0M [facility] Rx#:[id number] Norepinephrine 16 mg In 86.594 4.212 Sodium Chloride 0.9% 250 ml @ Titrate IV .Q0M [facility] Rx#:[id number] Propofol 1,000 mg In 178.312 63.55 Empty Bag 1 bag @ Titrate IV .Q0M [facility] Rx#: [id number] Output: Urine 560 428 220 Other: Voiding Method Indwelling Catheter Indwelling Catheter Indwelling Catheter ABP, PAP, CO, CI - Last Documented Arterial Blood Pressure 113/50 Pulmonary Artery Pressure 40/20 Cardiac Output 6.7 Cardiac Index 3.3 - Exam Head normocephalic Neck supple Lungs patient currently intubated Heart regular rate and rhythm S1-S2, no rub or gallop Abdomen is soft nontender nondistended positive bowel sounds no hepatosplenomegaly Extremities no edema - Labs CBC & Chem 7: 08/21/18 04:24 08/21/18 04:24 Labs: Abnormal Lab Results - Last 24 Hours (Table) 08/20/18 08/20/18 08/20/18 Range/Units 11:02 12:07 14:14 RBC (4.30-5.90) m/uL Hgb (13.0-17.5) gm/dL Hct (39.0-53.0) % Plt Count (150-450) k/uL Lymphocytes # (1.0-4.8) k/uL ABG pH (7.35-7.45) ABG pCO2 (35-45) mmHg ABG pO2 141 H (83-108) mmHg ABG Total CO2 25 H (19-24) mmol/L ABG O2 Saturation 99.8 H (94-97) % Chloride (98-107) mmol/L BUN (9-20) mg/dL Creatinine (0.66-1.25) mg/dL Glucose (74-99) mg/dL POC Glucose (mg/dL) 111 H 156 H (75-99) mg/dL Magnesium (1.6-2.3) mg/dL Alkaline Phosphatase (38-126) U/L Total Protein (6.3-8.2) g/dL Albumin (3.5-5.0) g/dL 08/20/18 08/20/18 08/20/18 Range/Units 15:35 18:38 19:49 RBC (4.30-5.90) m/uL Hgb (13.0-17.5) gm/dL Hct (39.0-53.0) % Plt Count (150-450) k/uL Lymphocytes # (1.0-4.8) k/uL ABG pH 7.32 L (7.35-7.45) ABG pCO2 46 H (35-45) mmHg ABG pO2 150 H (83-108) mmHg ABG Total CO2 26 H (19-24) mmol/L ABG O2 Saturation 99.7 H (94-97) % Chloride (98-107) mmol/L BUN (9-20) mg/dL Creatinine (0.66-1.25) mg/dL Glucose (74-99) mg/dL POC Glucose (mg/dL) 114 H 127 H (75-99) mg/dL Magnesium (1.6-2.3) mg/dL Alkaline Phosphatase (38-126) U/L Total Protein (6.3-8.2) g/dL Albumin (3.5-5.0) g/dL 08/20/18 08/20/18 08/20/18 Range/Units 21:01 22:04 22:11 RBC (4.30-5.90) m/uL Hgb (13.0-17.5) gm/dL Hct (39.0-53.0) % Plt Count (150-450) k/uL Lymphocytes # (1.0-4.8) k/uL ABG pH 7.34 L (7.35-7.45) ABG pCO2 (35-45) mmHg ABG pO2 124 H (83-108) mmHg ABG Total CO2 (19-24) mmol/L ABG O2 Saturation 99.3 H (94-97) % Chloride (98-107) mmol/L BUN (9-20) mg/dL Creatinine (0.66-1.25) mg/dL Glucose (74-99) mg/dL POC Glucose (mg/dL) 144 H 167 H (75-99) mg/dL Magnesium (1.6-2.3) mg/dL Alkaline Phosphatase (38-126) U/L Total Protein (6.3-8.2) g/dL Albumin (3.5-5.0) g/dL 08/20/18 08/21/18 08/21/18 Range/Units 23:10 00:05 00:57 RBC (4.30-5.90) m/uL Hgb (13.0-17.5) gm/dL Hct (39.0-53.0) % Plt Count (150-450) k/uL Lymphocytes # (1.0-4.8) k/uL ABG pH (7.35-7.45) ABG pCO2 (35-45) mmHg ABG pO2 (83-108) mmHg ABG Total CO2 (19-24) mmol/L ABG O2 Saturation (94-97) % Chloride (98-107) mmol/L BUN (9-20) mg/dL Creatinine (0.66-1.25) mg/dL Glucose (74-99) mg/dL POC Glucose (mg/dL) 145 H 125 H 120 H (75-99) mg/dL Magnesium (1.6-2.3) mg/dL Alkaline Phosphatase (38-126) U/L Total Protein (6.3-8.2) g/dL Albumin (3.5-5.0) g/dL 08/21/18 08/21/18 08/21/18 Range/Units 02:55 04:24 04:24 RBC 2.54 L (4.30-5.90) m/uL Hgb 7.3 L (13.0-17.5) gm/dL Hct 23.7 L (39.0-53.0) % Plt Count 148 L (150-450) k/uL Lymphocytes # 0.6 L (1.0-4.8) k/uL ABG pH (7.35-7.45) ABG pCO2 (35-45) mmHg ABG pO2 (83-108) mmHg ABG Total CO2 (19-24) mmol/L ABG O2 Saturation (94-97) % Chloride 110 H (98-107) mmol/L BUN 55 H (9-20) mg/dL Creatinine 1.63 H (0.66-1.25) mg/dL Glucose 105 H (74-99) mg/dL POC Glucose (mg/dL) 116 H (75-99) mg/dL Magnesium 2.7 H (1.6-2.3) mg/dL Alkaline Phosphatase 37 L (38-126) U/L Total Protein 5.1 L (6.3-8.2) g/dL Albumin 2.8 L (3.5-5.0) g/dL 08/21/18 08/21/18 08/21/18 Range/Units 05:10 06:11 07:05 RBC (4.30-5.90) m/uL Hgb (13.0-17.5) gm/dL Hct (39.0-53.0) % Plt Count (150-450) k/uL Lymphocytes # (1.0-4.8) k/uL ABG pH (7.35-7.45) ABG pCO2 (35-45) mmHg ABG pO2 (83-108) mmHg ABG Total CO2 (19-24) mmol/L ABG O2 Saturation (94-97) % Chloride (98-107) mmol/L BUN (9-20) mg/dL Creatinine (0.66-1.25) mg/dL Glucose (74-99) mg/dL POC Glucose (mg/dL) 113 H 122 H 122 H (75-99) mg/dL Magnesium (1.6-2.3) mg/dL Alkaline Phosphatase (38-126) U/L Total Protein (6.3-8.2) g/dL Albumin (3.5-5.0) g/dL 08/21/18 08/21/18 Range/Units 07:30 07:44 RBC (4.30-5.90) m/uL Hgb (13.0-17.5) gm/dL Hct (39.0-53.0) % Plt Count (150-450) k/uL Lymphocytes # (1.0-4.8) k/uL ABG pH (7.35-7.45) ABG pCO2 (35-45) mmHg ABG pO2 82 L (83-108) mmHg ABG Total CO2 (19-24) mmol/L ABG O2 Saturation (94-97) % Chloride (98-107) mmol/L BUN (9-20) mg/dL Creatinine (0.66-1.25) mg/dL Glucose (74-99) mg/dL POC Glucose (mg/dL) 124 H (75-99) mg/dL Magnesium (1.6-2.3) mg/dL Alkaline Phosphatase (38-126) U/L Total Protein (6.3-8.2) g/dL Albumin (3.5-5.0) g/dL Assessment and Plan Assessment: 1. Status post coronary artery bypass graft [address] Hannah postop day 4. The CHAHAL to LAD, SVG to PDA and Circ. Patient currently intubated and on sedation. Cardiovascular team and critical care team following closely. Patient currently up in chair. Patient has been extubated throughout night. hemoglobin 7.9. Discussed case with Luna per cardiovascular surgical team 2-D echo has been ordered due to diminished heart sounds. Hemoglobin 7.3. On 08/20 Patieht required reintubation due to extreme agitation and hypoxia. Critical care team following closely. PICC line placement ordered per cardiovascular surgery 2. Acute respiratory failure. Patient required reintubation last night 08/20. Chest x-ray completed showing right pleural effusion and bilateral lower lobe pulmonary infiltrates. There is probably mild heart failure. Endotracheal tube is in good position. Heart and lungs appear unchanged. Chest ultrasound completed showing small to tiny bilateral pleural effusions. Per pulmonary team No thoracentesis at this time. Per pulmonary services bronchoscopy today. 3. Acute Non-ST elevated myocardial infarction: Heart catheterization showing multivessel coronary artery disease with thrombus in the LAD. Patient has been seen by vascular surgery and planning for open heart surgery on Friday. Continue IV heparin and Aggrastat per cardiology. Continue with IV fluids. Pulmonary service also consulted for preop clearance. 4. Acute kidney injury: Unclear patient has chronic kidney disease. Creatinine in March 2018 was 1.3. Continue with IV fluid hydration. Creatinine 1.42. Continue to monitor closely. Creatinine continued to increase to 1.60. Discussed case with Luna gardner from cardiovascular surgery will continue to monitor closely at this point. Creatinine improving to 1.40 and bun 41. Nephrology services consulted. 5. Essential hypertension 6. Diabetes mellitus insulin-dependent. Hemoglobin A1c 7.9. Patient on sliding scale insulin 7. History of COPD: No evidence of exacerbation. continue albuterol nebulizer as needed 8. BPH continue Flomax 9. Atelectasis noted on chest x-ray order incentive spirometer 10. Obesity BMI 39.4 kg 11. Possible acute ICU psychosis and delirium. Patient remains on Precedex. Critical care team following closely. On 08/20 patient required reintubation. Patient currently on Diprivan for sedation DVT prophylaxis heparin and GI prophylaxis Protonix I performed an examination of the patient and discussed their management with the Nurse Practitioner. I have reviewed the Nurse Practitioner's notes and agree with the documented findings and plan of care
--- NOTE | 2018-08-21 11:00 | ECHOF ---
Referral Reason:assess EF MEASUREMENTS -------- HEIGHT: 162.6 cm WEIGHT: 109.3 kg BP: FINDINGS -------- Sinus rhythm. Pt Had CABG 08/17/18: reassess for LV Function. LV Function can't be accurately due to TDS: estimate EF 40-45%. CONCLUSIONS -------- 1. LV Function can't be accurately due to TDS: estimate EF 40-45%. PHILOSOPHY INSTRUCTOR: Eliane Elizabeth RDCS
[2018-08-21] MEDS ORDERED: LIDOCAINE 1% INJ 10MG/ML (20 ML MDV) SQ ONE (11:34)
--- NOTE | 2018-08-21 11:41 | P.PN ---
Subjective Progress Note Date: 08/21/18 Principal diagnosis: Symptomatic multivessel coronary artery disease, status post CABG. Postoperative day # 4 This is a 73-year-old white male patient of Dr. Joy Reagan, who presented emergency department on 08/13/2018 at 1840 evaluation of chest pain, associated with diaphoresis. The pain was non-radiating, and occurred after eating some spicy soup, patient was belching, and had some nausea. No vomiting. EKG showed some ST and T-wave abnormalities in the inferior, anterior, and lateral leads with T-wave inversion. Troponins were elevated at 0.128, 11.8, 11.8 and 9.270, patient was ruled in for non-ST elevated ND. Patient was placed on IV heparin, aspirin, Coreg, nitroglycerin and he underwent cardiac catheterization this afternoon with Dr. ALISHA Harper which showed a distal lesion of the left main of 70% before bifurcation into LAD and circumflex with calcification, 60% narrowing in the LAD at the origin of the first diagonal branch, 70% stenosis in the LAD at the origin of the second diagonal branch with probable thrombus, first obtuse marginal with 80-90% stenosis proximally, and 60% narrowing in the circumflex after the first obtuse marginal, total occlusion of the proximal RCA with some collateral circulation from the left system to the right. Patient has past medical history of coronary artery disease, COPD, diabetes mellitus type 2, hypertension, previous nicotine dependence, history of right nephrectomy in 1969 and chronic kidney disease. Patient was recommended to undergo coronary revascularization and cardiothoracic surgery has been consulted. We are seeing this patient for pulmonary evaluation. On 08/15/2018, the patient has no specific complaints. He is not having any chest pain. Resting comfortably in bed. Bedside spirometry was noted and there is no significant obstructive airway limitation. Chest x-ray was reviewed and showed some elevation of the right hemidiaphragm. Otherwise there is some subsegmental atelectatic changes in the lung bases. He is an ex- smoker. He is an obese male patient with a BMI of 39.0. No previous history of DVT or pulmonary embolism. No home O2. He is an ex-smoker. Overall performance status is good. On 08/16/2018 patient seen in follow-up on selective care unit. He sitting up on bed, in no acute distress, denies any shortness of breath. No chest pain, he is on heparin drip. Room air pulse ox is 94%, vital signs are stable. Lung sounds are clear. Patient is possibly scheduled for surgical revascularization surgery on 08/17/2018. No acute complaints overnight. Sinus rhythm. On 08/17/2018 patient seen in follow-up in the intensive care unit, he is status post three-vessel coronary artery bypass grafting, with CHAHAL to LAD, SVG to the PDA, and circumflex. Patient is currently sedated, intubated, on mechanical ventilator, and current vent settings are SIMV mode with a rate of 12 , tidal volume 500, FiO2 of 50% and PEEP of 10. IV drips include LR at a rate of 40, levothyroid at a rate of 10 mics per minute, Primacor is at 0.2 mics per kilo per minute, Precedex is at 0.2 mics per kilo per hour. Patient received 1500 of crystalloids and 1500 mL of 5% albumin, in addition to Cell Saver. Corea -Eliazar catheter is in place, with PA pressures of 50/32, CVP of 25, cardiac output of 7.3, and cardiac index of 3.6. Patient has 2 mediastinal chest tubes and left pleural chest tubes with small amount of sanguinous output. AV epicardial wires are in place, patient is currently being paced at her mode of AAI with a rate of 80 BPM. The blood work showed WBC of 8.6, hemoglobin of 8.5 , INR 1.2, sodium of 140, potassium is 4.8, chloride is 110, BUN of 21, creatinine is 1.09. Blood gas showed pO2 of 79, pCO2 of 53, pH of 7.25. Vent settings were adjusted, and rate was increased to IMV with a rate of 18 breaths per minute. Suero catheter is in place, and patient is producing 30-50 ML per hour. Reevaluated today on 08/18/2018, patient was extubated last night uneventfully. Presently on nasal cannula, in no form of distress. However he is on 8 L high flow nasal cannula. Hemodynamically stable, on Primacor and low dose levo fed. Patient is relatively asymptomatic, chest x-ray is reassuring. Hemoglobin today is 7.9. BUN is 24 creatinine is 1.42, slightly worse compared to yesterday. Reevaluated today on 08/19/2018, patient developed significant amount of agitation and restlessness last night, placed on Precedex, and now he is on BiPAP. Blood pressure is a bit marginal. His urine output was marginal earlier today, and he received Lasix. He was also placed on 11 proximal for blood pressure control. Presently on BiPAP, seems to be at confused, agitated when aroused, ABG is reasonable with a pO2 of 104 pCO2 of 36 pH of 7.36 this morning. Chest x-ray showed mostly mediastinal widening, likely projectional, otherwise no significant abnormality noted. No evidence of congestive heart failure, minimal asymmetry or atelectasis is noted. Reevaluated today on 08/20/2018, remains on BiPAP, did not tolerate high flow nasal cannula, desaturated down significantly, but was much better on BiPAP. ABG on 50% BiPAP showed a pO2 of 141 pCO2 of 38 pH of 7.41. Patient is off Precedex today, hence I recommended Ativan 0.5 up to 1 mg every 2 hours as needed, I have also started the patient on Seroquel. And he 5 mg by mouth twice a day. Chest x-ray is suggestive of good sized right-sided pleural effusion and possible right lower lobe atelectasis, ultrasound was ordered, and if the fluid is large enough may consider even thoracentesis. CBC was reviewed hemoglobin is 7.6 today WBC count is 6.6. Electrolytes were reviewed to be normal, renal functioning is improving again BUN is 41 creatinine 1.40 it was 1.60 yesterday On 08/21/2018, patient was reevaluated, and apparently last night he had another episode of extreme agitation, patient was extremely restless, pulling all his tubes and lines, did not respond to Ativan and Haldol, hence I was notified about this patient, and I recommended intubation and mechanical ventilation and placing the patient on propofol. Patient is now on mechanical ventilation, and his ventilator settings are tidal volume of 500 assist control rate of 16 FiO2 is 60% PEEP of 8. ABG this morning showed a pO2 of 82 pCO2 of 40 pH of 7.36. CBC is relatively unremarkable. BUN is 55 creatinine is 1.63. Chest x-ray is showing some significant volume loss in the right lower lobe and possibly right middle lobe, Estrace therapy is suctioning significant amount of thick purulent secretions from the endotracheal tube, hence I believe the patient may have some component of the mucous plugging in the right mainstem bronchus or right middle lobe and right lower lobe. Hence I plan to arrange for bronchoscopy and evaluation of the right lower lobe and right middle lobe. In the meantime I will start the patient empirically on Zosyn. Considering his mental status and his agitation, patient could have had some component of aspiration, but we'll proceed with bronchoscopy and lavage of the right lung, and we will address that accordingly. No plans to wean or extubated the patient at this point, Objective - Vital Signs Vital signs: Vital Signs Temp 97.7 F 08/21/18 08:00 Pulse 80 08/21/18 11:27 Resp 28 H 08/21/18 11:00 BP 73/47 08/20/18 21:45 Pulse Ox 100 08/21/18 11:00 Intake & Output 08/20/18 08/21/18 08/21/18 18:59 06:59 18:59 Intake Total 684.316 754.939 166.520 Output Total 560 428 220 Balance 124.316 326.939 -53.480 Weight 109.4 kg 110.3 kg 110.3 kg Intake: IV 411 422 98 Lactated Ringers 1,000 ml 360 350 80 @ 20 mls/hr IV .Q24H [facility] Rx#:[id number] pressure bags 51 72 18 Intake, IV Titration 273.316 332.939 68.520 Amount Albumin Human 5% 500 ml 250 In Empty Bag 1 bag @ 250 mls/hr IVPB ONCE ONE Rx#: [id number] Dexmedetomidine/0.9% NaCl 7.848 (Pmx) 400 mcg In Empty Bag 1 bag @ Titrate IV . Q0M [facility] Rx#:[id number] Dexmedetomidine/0.9% NaCl 48.529 (Pmx) 400 mcg In Empty Bag 1 bag @ Titrate IV . Q0M [facility] Rx#:[id number] Insulin Regular 100 unit 15.468 19.504 0.758 In Sodium Chloride 0.9% 100 ml @ Per Protocol IV .Q0M [facility] Rx#:[id number] Norepinephrine 16 mg In 86.594 4.212 Sodium Chloride 0.9% 250 ml @ Titrate IV .Q0M [facility] Rx#:[id number] Propofol 1,000 mg In 178.312 63.55 Empty Bag 1 bag @ Titrate IV .Q0M [facility] Rx#: [id number] Output: Urine 560 428 220 Other: Voiding Method Indwelling Catheter Indwelling Catheter Indwelling Catheter ABP, PAP, CO, CI - Last Documented Arterial Blood Pressure 102/45 Pulmonary Artery Pressure 40/20 Cardiac Output 6.7 Cardiac Index 3.3 - Exam Physical Exam: Revealed a 73-year-old white male, on mechanical ventilation, ventilator settings as noted above. Head: Atraumatic, normocephalic. Tubes were noted to be intact including endotracheal tube and orogastric tube. HEENT: PERRLA, EOMI, no icterus. Echo supple, no JVD, no thyromegaly, moist mucous membranes noted. Chest: Diminished breath sounds at the right base, symmetrical expansion noted, no wheezes. Cardiac Exam: S1, S2 present. Regular rate and rhythm, atrial paced on telemetry with underlying sinus rhythm with a rate in the 60s. A/V epicardial pacemaker wires present, connected to generator, AAI mode with rate 80 bpm. Palpable peripheral pulses bilaterally. Trace generalized edema present. No calf pain or tenderness noted. Right internal jugular Cordis, right radial arterial line present. Remains on renal dose dopamine and currently on leave the at 1 mcg. Heart hugger, antiembolism stockings, SCDs present. Abdomen: [No megaly no rebound, positive bowel sounds, obese abdomen noted. Extremities: Good perfusion, good pulses, minimal ecchymosis noted in lower extremities, expected. Neurological Exam: Sedated, on propofol, could not assess the neurological status today. Psychiatric: Could not be assessed today. - Labs CBC & Chem 7: 08/21/18 04:24 08/21/18 04:24 Labs: Abnormal Lab Results - Last 24 Hours (Table) 08/20/18 08/20/18 08/20/18 Range/Units 12:07 14:14 15:35 RBC (4.30-5.90) m/uL Hgb (13.0-17.5) gm/dL Hct (39.0-53.0) % Plt Count (150-450) k/uL Lymphocytes # (1.0-4.8) k/uL ABG pH 7.32 L (7.35-7.45) ABG pCO2 46 H (35-45) mmHg ABG pO2 150 H (83-108) mmHg ABG Total CO2 26 H (19-24) mmol/L ABG O2 Saturation 99.7 H (94-97) % Chloride (98-107) mmol/L BUN (9-20) mg/dL Creatinine (0.66-1.25) mg/dL Glucose (74-99) mg/dL POC Glucose (mg/dL) 111 H 156 H (75-99) mg/dL Magnesium (1.6-2.3) mg/dL Alkaline Phosphatase (38-126) U/L Total Protein (6.3-8.2) g/dL Albumin (3.5-5.0) g/dL 08/20/18 08/20/18 08/20/18 Range/Units 18:38 19:49 21:01 RBC (4.30-5.90) m/uL Hgb (13.0-17.5) gm/dL Hct (39.0-53.0) % Plt Count (150-450) k/uL Lymphocytes # (1.0-4.8) k/uL ABG pH (7.35-7.45) ABG pCO2 (35-45) mmHg ABG pO2 (83-108) mmHg ABG Total CO2 (19-24) mmol/L ABG O2 Saturation (94-97) % Chloride (98-107) mmol/L BUN (9-20) mg/dL Creatinine (0.66-1.25) mg/dL Glucose (74-99) mg/dL POC Glucose (mg/dL) 114 H 127 H 144 H (75-99) mg/dL Magnesium (1.6-2.3) mg/dL Alkaline Phosphatase (38-126) U/L Total Protein (6.3-8.2) g/dL Albumin (3.5-5.0) g/dL 08/20/18 08/20/18 08/20/18 Range/Units 22:04 22:11 23:10 RBC (4.30-5.90) m/uL Hgb (13.0-17.5) gm/dL Hct (39.0-53.0) % Plt Count (150-450) k/uL Lymphocytes # (1.0-4.8) k/uL ABG pH 7.34 L (7.35-7.45) ABG pCO2 (35-45) mmHg ABG pO2 124 H (83-108) mmHg ABG Total CO2 (19-24) mmol/L ABG O2 Saturation 99.3 H (94-97) % Chloride (98-107) mmol/L BUN (9-20) mg/dL Creatinine (0.66-1.25) mg/dL Glucose (74-99) mg/dL POC Glucose (mg/dL) 167 H 145 H (75-99) mg/dL Magnesium (1.6-2.3) mg/dL Alkaline Phosphatase (38-126) U/L Total Protein (6.3-8.2) g/dL Albumin (3.5-5.0) g/dL 08/21/18 08/21/18 08/21/18 Range/Units 00:05 00:57 02:55 RBC (4.30-5.90) m/uL Hgb (13.0-17.5) gm/dL Hct (39.0-53.0) % Plt Count (150-450) k/uL Lymphocytes # (1.0-4.8) k/uL ABG pH (7.35-7.45) ABG pCO2 (35-45) mmHg ABG pO2 (83-108) mmHg ABG Total CO2 (19-24) mmol/L ABG O2 Saturation (94-97) % Chloride (98-107) mmol/L BUN (9-20) mg/dL Creatinine (0.66-1.25) mg/dL Glucose (74-99) mg/dL POC Glucose (mg/dL) 125 H 120 H 116 H (75-99) mg/dL Magnesium (1.6-2.3) mg/dL Alkaline Phosphatase (38-126) U/L Total Protein (6.3-8.2) g/dL Albumin (3.5-5.0) g/dL 08/21/18 08/21/18 08/21/18 Range/Units 04:24 04:24 05:10 RBC 2.54 L (4.30-5.90) m/uL Hgb 7.3 L (13.0-17.5) gm/dL Hct 23.7 L (39.0-53.0) % Plt Count 148 L (150-450) k/uL Lymphocytes # 0.6 L (1.0-4.8) k/uL ABG pH (7.35-7.45) ABG pCO2 (35-45) mmHg ABG pO2 (83-108) mmHg ABG Total CO2 (19-24) mmol/L ABG O2 Saturation (94-97) % Chloride 110 H (98-107) mmol/L BUN 55 H (9-20) mg/dL Creatinine 1.63 H (0.66-1.25) mg/dL Glucose 105 H (74-99) mg/dL POC Glucose (mg/dL) 113 H (75-99) mg/dL Magnesium 2.7 H (1.6-2.3) mg/dL Alkaline Phosphatase 37 L (38-126) U/L Total Protein 5.1 L (6.3-8.2) g/dL Albumin 2.8 L (3.5-5.0) g/dL 08/21/18 08/21/18 08/21/18 Range/Units 06:11 07:05 07:30 RBC (4.30-5.90) m/uL Hgb (13.0-17.5) gm/dL Hct (39.0-53.0) % Plt Count (150-450) k/uL Lymphocytes # (1.0-4.8) k/uL ABG pH (7.35-7.45) ABG pCO2 (35-45) mmHg ABG pO2 82 L (83-108) mmHg ABG Total CO2 (19-24) mmol/L ABG O2 Saturation (94-97) % Chloride (98-107) mmol/L BUN (9-20) mg/dL Creatinine (0.66-1.25) mg/dL Glucose (74-99) mg/dL POC Glucose (mg/dL) 122 H 122 H (75-99) mg/dL Magnesium (1.6-2.3) mg/dL Alkaline Phosphatase (38-126) U/L Total Protein (6.3-8.2) g/dL Albumin (3.5-5.0) g/dL 08/21/18 Range/Units 07:44 RBC (4.30-5.90) m/uL Hgb (13.0-17.5) gm/dL Hct (39.0-53.0) % Plt Count (150-450) k/uL Lymphocytes # (1.0-4.8) k/uL ABG pH (7.35-7.45) ABG pCO2 (35-45) mmHg ABG pO2 (83-108) mmHg ABG Total CO2 (19-24) mmol/L ABG O2 Saturation (94-97) % Chloride (98-107) mmol/L BUN (9-20) mg/dL Creatinine (0.66-1.25) mg/dL Glucose (74-99) mg/dL POC Glucose (mg/dL) 124 H (75-99) mg/dL Magnesium (1.6-2.3) mg/dL Alkaline Phosphatase (38-126) U/L Total Protein (6.3-8.2) g/dL Albumin (3.5-5.0) g/dL Assessment and Plan Assessment: Impression: 1 status post CABG for coronary artery disease, postoperative day #4. 2 postoperative ICU psychosis and delirium requiring reintubation on 08/20/2018, patient is back on mechanical ventilation. 3 acute hypoxic respiratory failure secondary to delirium and extreme agitation 4 suspect right lower lobe collapse, possibly secondary to mucous plugging, hence may consider bronchoscopy. This is unexpected. 5 type 2 diabetes, requiring insulin. 6 intermittent episodes of psychosis and delirium since his surgery. Unexpected. 7 multiple comorbidities including COPD, tobacco dependence in remission, prostate cancer, hyperlipidemia, benign essential hypertension, and previous nephrectomy. Recommendation: Discussed the patient's condition with his family, nurses at bedside, reviewed the chest x-ray and all labs also reviewed the chart, reviewed the events last night, we will plan to bronchoscope the patient today, ventilator settings were readjusted, we will hold on any weaning trials for now. Prognosis is guarded, patient remains critically ill. We will continue to follow. Critical care time is 40 minutes, not including the time on procedures.
[2018-08-21 12:01] LABS: Glucose,Whole Blood 102 mg/dL (75-99)
--- NOTE | 2018-08-21 12:01 | XR ---
EXAMINATION TYPE: XR chest 1V confirm line plcmt DATE OF EXAM: 08/21/2018 HISTORY: PICC line placement COMPARISON: 08/21/2018 TECHNIQUE: Single view of the chest is submitted. FINDINGS: Left-sided PICC line is noted with its distal tip overlying the SVC. IJ sheath, endotracheal tube and NG tube are unchanged in position. Degree of inspiration is limiting. Perihilar and basilar infiltrates persist. The heart is stable. Hilar and mediastinal structures are within normal limits. Degenerative changes are seen of the dorsal spine. IMPRESSION: 1. Left-sided PICC line is noted with its distal tip overlying the SVC. IJ sheath, endotracheal tube and NG tube are unchanged in position.
[2018-08-21] MEDS: PIPERACILLIN-TAZOBACTAM 3.375 GM in DEXTROSE/WATER 1 50ML.BAG IVPB SCH ×2 (12:33→15:42)
[2018-08-21 12:38] LABS: Glucose,Whole Blood 109 mg/dL (75-99)
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
--- NOTE | 2018-08-21 13:37 | PN ---
PROGRESS NOTE This patient is status post coronary artery bypass surgery. The patient developed acute respiratory distress last night and the patient was very agitated and subsequently patient was re- intubated. Exact etiology of respiratory distress is unclear. The patient could have a mucus plug and a bronchoscopy is being considered. At present, patient is hemodynamically stable. Heart rate is 80 per minute. Respiratory rate is 28, blood pressure is 100/80 mmHg. First and second heart sounds are heard. Lungs examination revealed bilateral scattered rhonchi. The patient's blood gases shows a PO2 of 82, pCO2 is 40, pH is 7.36. ASSESSMENT AND PLAN: Patient is stable. Cardiac headley possible bronchoscopy today. Continue the current medications. MMODL / IJN: [id number] /
--- NOTE | 2018-08-21 13:43 | IR ---
EXAMINATION TYPE: IR cvc insert >=5 years DATE OF EXAM: 08/21/2018 COMPARISON: NONE HISTORY: Needs long-term intravenous access for therapy, pressor treatment FINDINGS: Maximal barrier technique was utilized. The skin overlying the left basilic vein was local ized with ultrasound and noted to be compressible and patent by ultrasound. An ultrasound image was obtained and submitted on patient's chart. Sterile technique utilized with the ultrasound machine. Th e skin overlying was prepped and draped and Lidocaine used for local anesthesia. A skin pamela was mad e with a scalpel. Access was gained to the vein under direct ultrasound guidance with a 21-gauge nee dle and a 0.018 inch wire was advanced. Access site was dilated with a peel-away sheath and the cath eter tailored to length. Catheter advanced centrally and a post procedure chest x-ray verified place ment with the tip near the junction of the superior vena cava and right atrium. Catheter was fixed t o the skin and a sterile dressing placed. Hemostasis achieved and the catheter was aspirated and flu shed with sterile saline. The patient remained in stable condition. IMPRESSION: STATUS POST ULTRASOUND GUIDED PICC LINE PLACEMENT, READY FOR USE. THIS PROCEDURE WAS PER FORMED BY THE UNDERSIGNED.
--- NOTE | 2018-08-21 14:43 | PCN ---
PROCEDURE NOTE OPERATIVE REPORT: Bronchoscopy, bronchoalveolar lavage of the right middle lobe, right lower lobe, and washings of both lungs. PREOPERATIVE DIAGNOSIS: Right lower lobe collapse, secondary to mucus plugging. POSTOPERATIVE DIAGNOSIS: Right lower lobe collapse, secondary to mucus plugging. ANESTHESIA USED: The patient was already on propofol drip, IV conscious sedation. PROCEDURE: The patient was already in the ICU on mechanical ventilation, he was placed in the supine position, we monitored his O2 saturation continuously, blood pressure was continuously monitored, and cardiac rhythm was continuously monitored. An adapter was applied to the endotracheal tube, which was already connected to mechanical ventilation. Then the bronchoscope was advanced through the endotracheal tube down to the area of the distal trachea. Thorough examination was done of the felicita, right upper lobe, right middle lobe, right lower lobe, left upper lobe lingula and left lower lobe. There was evidence of thick purulent secretions noted in the right mainstem area and right middle lobe as well as right lower lobe. These were suctioned easily, they were not thick. Then, lavage of the right middle lobe was done. We moved to the left side, there was minimal apparent secretions in the left lower lobe. These were suctioned easily. The fluid was sent for different diagnostic studies. Procedure was well tolerated, no evidence of any immediate complications. MMODL / IJN: [id number] /
[2018-08-21 16:12] LABS: Glucose,Whole Blood 113 mg/dL (75-99)
[2018-08-21] MEDS: FERROUS SULFATE ORAL ELIXIR 300 MG/5 ML CUP PO SCH (16:34)
[2018-08-21 18:30] LABS: Appearance,BF Cloudy; Color,BF Colorless
[2018-08-21 18:35] LABS: Nucleated Cells, Body Fluid 750 /uL; RBC, Body Fluid 163 /uL
[2018-08-21 18:49] LABS: Mononuclear WBC,Body Fluid 1 %; Polynuclear WBC,Body Fluid 98 %; Total Cells Counted,Body Fluid 100
[2018-08-21] MEDS: LACTATED RINGERS 1,000 ML IV SCH (18:59)
[2018-08-21] MEDS: DEXTROSE/WATER 1 500ML.BAG with DOPamine DRIP 800 MG IV SCH (18:59)
[2018-08-21 19:26] LABS: Iron Saturation 7.65 (15.00-50.00)
[2018-08-21 20:00] LABS: Glucose,Whole Blood 125 mg/dL (75-99)
[2018-08-21] MEDS: SENNOSIDES-DOCUSATE SODIUM 1 EACH TAB PO SCH (21:02)
[2018-08-21] MEDS: TAMSULOSIN 0.4 MG CAP.ER.24H PO SCH (21:02)
[2018-08-22] MEDS: PIPERACILLIN-TAZOBACTAM 3.375 GM in DEXTROSE/WATER 1 50ML.BAG IVPB SCH ×3 (00:02→16:14)
[2018-08-22 00:06] LABS: Glucose,Whole Blood 169 mg/dL (75-99)
[2018-08-22] MEDS: INSULIN ASPART 100 UNIT/ML 1 ML 10 ML VIAL SQ SCH ×6 (00:13→20:28)
[2018-08-22] MEDS: PROPOFOL 1,000 MG in EMPTY BAG 1 BAG IV SCH ×5 (00:52→19:25)
[2018-08-22 04:37] LABS: Glucose,Whole Blood 166 mg/dL (75-99)
[2018-08-22 04:54] LABS: Basophils % (A) 1 %; Eosinophils # (A) 0.2 k/uL (0-0.7); Eosinophils % (A) 4 %; HCT 23.7 % (39.0-53.0); HGB 7.4 gm/dL (13.0-17.5); Hypochromasia Moderate; Lymphocytes # (A) 0.4 k/uL (1.0-4.8); Lymphocytes % (A) 8 %; MCH 29.8 pg (25.0-35.0); MCHC 31.3 g/dL (31.0-37.0); MCV 95.2 fL (80.0-100.0); Mean Platelet Volume 7.8; Monocytes # (A) 0.3 k/uL (0-1.0); Monocytes % (A) 7 %; Neutrophils # (A) 3.5 k/uL (1.3-7.7); Neutrophils % (A) 79 %; Platelet Count 162 k/uL (150-450); RBC 2.49 m/uL (4.30-5.90); RDW 15.2 % (11.5-15.5); WBC 4.5 k/uL (3.8-10.6)
[2018-08-22 05:17] LABS: Albumin 2.6 g/dL (3.5-5.0); Calcium 8.2 mg/dL (8.4-10.2); Magnesium 2.8 mg/dL (1.6-2.3); Phosphorus 3.8 mg/dL (2.5-4.5); Potassium 4.6 mmol/L (3.5-5.1); Total Bilirubin 0.6 mg/dL (0.2-1.3); Total Protein 4.9 g/dL (6.3-8.2)
[2018-08-22 05:55] LABS: Glucose,Whole Blood 163 mg/dL (75-99)
--- NOTE | 2018-08-22 06:49 | XR ---
EXAMINATION TYPE: XR chest 1V portable DATE OF EXAM: 08/22/2018 HISTORY: Mechanical ventilation. REFERENCE: Previous study dated 08/21/2018. FINDINGS: There has been a midline sternotomy. The patient's ET tube and NG tube remain in place, unc hanged in appearance. There is a left basilic PICC line in place. Its tip is at the cavoatrial juncti on. There is bibasilar airspace disease. There are bilateral effusions, greater on the right than the lef t. The heart is enlarged. IMPRESSION: 1. WORSENING RIGHT BASILAR AIRSPACE DISEASE. 2. CARDIOMEGALY. 3. BILATERAL EFFUSIONS, GREATER ON THE RIGHT THAN THE LEFT.
[2018-08-22 07:15] LABS: ABG Base Excess -0.5 mmol/L; ABG HCO3 25 mmol/L (21-25); ABG Oxygen Saturation 96.3 % (94-97); ABG PCO2 41 mmHg (35-45); ABG PH 7.39 (7.35-7.45); ABG PO2 80 mmHg (83-108); ABG TCO2 26 mmol/L (19-24)
[2018-08-22] MEDS: IPRATROPIUM-ALBUTEROL 3 ML NEB INHALATION SCH ×4 (07:47→19:19)
[2018-08-22] MEDS: ATORVASTATIN 40 MG TAB PO SCH (08:12)
[2018-08-22] MEDS: ASCORBIC ACID 500 MG TAB PO SCH ×2 (08:12→17:11)
[2018-08-22] MEDS: CHLORHEXIDINE GLUCONATE 15 ML CUP MUCOUS MEM SCH ×2 (08:13→20:38)
[2018-08-22] MEDS: HEPARIN SODIUM,PORCINE 5,000 UNIT/ML 1 ML VIAL SQ SCH ×3 (08:13→16:14)
[2018-08-22] MEDS: FERROUS SULFATE ORAL ELIXIR 300 MG/5 ML CUP PO SCH ×2 (08:13→17:11)
[2018-08-22] MEDS: CLOPIDOGREL 75 MG TAB PO SCH (08:13)
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
[2018-08-22] MEDS: ASPIRIN 325 MG TAB PO SCH (08:24)
[2018-08-22 08:32] LABS: Glucose,Whole Blood 167 mg/dL (75-99)
[2018-08-22] MEDS: PANTOPRAZOLE 40 MG/10 ML VIAL IVP SCH (08:36)
[2018-08-22] MEDS: SODIUM FERRIC GLUCONAT-SUCROSE 125 MG in SODIUM CHLORIDE 0.9% 100 ML IVPB SCH (08:37)
[2018-08-22] MEDS: METOPROLOL TARTRATE 12.5 MG TAB PO SCH ×2 (08:37→20:37)
[2018-08-22] MEDS: QUEtiapine 50 MG TAB PO SCH ×2 (08:49→21:55)
[2018-08-22] MEDS ORDERED: FUROSEMIDE 10 MG/ML 4 ML VIAL IV STA (10:08)
--- NOTE | 2018-08-22 10:25 | P.PN ---
Subjective Progress Note Date: 08/22/18 Principal diagnosis: Non-STEMI this admission, symptomatic multivessel coronary artery disease, preoperative impaired left ventricular systolic function with an ejection fraction of 20-25%, hypertension, insulin-dependent diabetes mellitus with a preoperative hemoglobin A1c of 7.1%, COPD with a FEV1 of 87% of predicted, history of nicotine dependence quit smoking in 1979, history of prostate cancer with radiation more than 20 years ago, BPH, obesity with a BMI of 41.7, history of right nephrectomy in 1969 and hyperlipidemia. POD #5 urgent coronary artery bypass grafting 3 vessels, left internal mammary artery to left anterior descending coronary artery, a reverse greater saphenous vein graft to obtuse marginal coronary artery, a reverse greater saphenous vein graft to posterior descending coronary artery, endoscopic vein harvest of the left greater saphenous vein, epi-aortic ultrasound, intraoperative transesophageal echocardiogram, closure of sternum using titanium plates and [place] cable system. POD #1 bronchoscopy, bronchoalveolar lavage of the right middle lobe, right lower lobe and washings of both lungs performed by Dr. Almodovar from pulmonary medicine. Postoperative right lower lobe collapse, secondary to mucous plugging, an unexpected outcome. Postoperative delirium, an unexpected outcome. Postoperative acute respiratory distress requiring reintubation, and prolonged mechanical ventilation, an unexpected outcome. Postoperative acute blood loss anemia, an expected outcome of surgery due to cardiopulmonary bypass and hemodilution. Currently the patient remains intubated with mechanical ventilator support. He is in no acute distress. He remains sedated on propofol drip at 35 mcg/kg/m. He is not following any verbal commands at this time, although he does respond to noxious stimuli. He remains off norepinephrine drip. Currently he has hemodynamically stable. He had a left antecubital PICC line placed yesterday. Objective - Vital Signs Vital signs: Vital Signs Temp 98.9 F 08/22/18 08:00 Pulse 66 08/22/18 08:11 Resp 15 08/22/18 08:00 BP 110/59 08/22/18 08:00 Pulse Ox 100 08/22/18 08:00 Intake & Output 08/21/18 08/22/18 08/22/18 18:59 06:59 18:59 Intake Total 729.691 3882.089 328 Output Total 740 795 110 Balance -110.210 234.089 218 Weight 110.3 kg Intake: IV 332 336.0 108 Lactated Ringers 1,000 ml 260 220 40 @ 20 mls/hr IV .Q24H [facility] Rx#:[id number] Piperacillin-Tazobactam 3 50.0 50 .375 gm In Dextrose/Water 1 50ml.bag @ 12.5 mls/hr IVPB Q8HR [facility] Rx#: [id number] pressure bags 72 66 18 Intake, IV Titration 267.790 273.089 100 Amount Insulin Regular 100 unit 0.758 In Sodium Chloride 0.9% 100 ml @ Per Protocol IV .Q0M [facility] Rx#:[id number] Norepinephrine 16 mg In 4.212 Sodium Chloride 0.9% 250 ml @ Titrate IV .Q0M [facility] Rx#:[id number] Propofol 1,000 mg In 262.820 273.089 Empty Bag 1 bag @ Titrate IV .Q0M [facility] Rx#: [id number] Sodium Ferric Gluconat- 100 Sucrose 125 mg In Sodium Chloride 0.9% 100 ml @ 100 mls/hr IVPB DAILY [facility] Rx#:[id number] Tube Feeding 30 330 90 Other 90 30 Output: Urine 740 795 110 Other: Voiding Method Indwelling Catheter Indwelling Catheter # Bowel Movements 1 ABP, PAP, CO, CI - Last Documented Arterial Blood Pressure 119/43 Pulmonary Artery Pressure 40/20 Cardiac Output 6.7 Cardiac Index 3.3 - Constitutional General appearance: Present: morbidly obese, no acute distress - Respiratory Details: Lung sounds essentially clear throughout, diminished to his bilateral bases. Respirations are symmetrical and nonlabored with mechanical ventilator support. Current ventilator settings are as follows: Assist control 16, TV 500, FiO2 50 %, PEEP of 8. Current oxygen saturation is are 100%. ABG results this morning show a pH of 7.39, pCO2 41, D.O. 280, HCO3 25, oxygen saturation 96.3, base excess is -0.5. - Cardiovascular Details: Regular rhythm and rate. S1 and S2 present, negative for S3, gallop or murmur. Sternum is stable. Bedside telemetry showing normal sinus rhythm heart rate 69. Atrial and ventricular epicardial pacemaker wires present and connected to bedside backup pacemaker generator AAI 50. Heart hugger is in place. Knee- high MARCELLE hose and sequential compression devices in place to his bilateral lower extremities. Right radial arterial line in place and functioning. Left antecubital PICC line in place and functioning. - Gastrointestinal Gastrointestinal Comment(s): Abdomen is soft, nontender and nondistended. Active bowel sounds present in all 4 abdominal quadrants. OG tube in place with vital high-protein to feeding infusing at goal rate of 30 mL per hour. Bowel movement 2 last night. - Genitourinary Genitourinary Comment(s): Suero catheter for accurate I&O. Draining clear yellow urine. 625 mL output the last 8 hours. Dopamine drip remains at 2.5 mcg/kg/m renal dose. - Integumentary Integumentary Comment(s): Skin is warm and dry. No clubbing or cyanosis present. Midline sternal incision clean dry and approximated. No drainage or redness present. Left lower extremity EVH site clean dry and approximated. Ecchymosis present to his left thigh, soft touch. - Neurologic Neurologic Comment(s): Remains sedated with propofol drip at 35 mcg/kg/m. He does withdraw from noxious stimuli. - Musculoskeletal Musculoskeletal: Present: generalized weakness - Allied health notes Allied health notes reviewed: nursing - Labs CBC & Chem 7: 08/22/18 04:35 08/22/18 04:35 Labs: Abnormal Lab Results - Last 24 Hours (Table) 08/21/18 08/21/18 08/21/18 Range/Units 04:20 12:00 12:37 RBC (4.30-5.90) m/uL Hgb (13.0-17.5) gm/dL Hct (39.0-53.0) % Lymphocytes # (1.0-4.8) k/uL ABG pO2 (83-108) mmHg ABG Total CO2 (19-24) mmol/L Chloride (98-107) mmol/L BUN (9-20) mg/dL Creatinine (0.66-1.25) mg/dL Glucose (74-99) mg/dL POC Glucose (mg/dL) 102 H 109 H (75-99) mg/dL Calcium (8.4-10.2) mg/dL Magnesium (1.6-2.3) mg/dL Iron 14 L (65-175) ug/dL TIBC 183 L (228-460) ug/dL Iron Saturation 7.65 L (15.00-50.00) Ferritin 459.5 H (22.0-322.0) ng/mL Total Protein (6.3-8.2) g/dL Albumin (3.5-5.0) g/dL 08/21/18 08/21/18 08/22/18 Range/Units 16:10 19:59 00:04 RBC (4.30-5.90) m/uL Hgb (13.0-17.5) gm/dL Hct (39.0-53.0) % Lymphocytes # (1.0-4.8) k/uL ABG pO2 (83-108) mmHg ABG Total CO2 (19-24) mmol/L Chloride (98-107) mmol/L BUN (9-20) mg/dL Creatinine (0.66-1.25) mg/dL Glucose (74-99) mg/dL POC Glucose (mg/dL) 113 H 125 H 169 H (75-99) mg/dL Calcium (8.4-10.2) mg/dL Magnesium (1.6-2.3) mg/dL Iron (65-175) ug/dL TIBC (228-460) ug/dL Iron Saturation (15.00-50.00) Ferritin (22.0-322.0) ng/mL Total Protein (6.3-8.2) g/dL Albumin (3.5-5.0) g/dL 08/22/18 08/22/18 08/22/18 Range/Units 04:35 04:35 04:36 RBC 2.49 L (4.30-5.90) m/uL Hgb 7.4 L (13.0-17.5) gm/dL Hct 23.7 L (39.0-53.0) % Lymphocytes # 0.4 L (1.0-4.8) k/uL ABG pO2 (83-108) mmHg ABG Total CO2 (19-24) mmol/L Chloride 111 H (98-107) mmol/L BUN 53 H (9-20) mg/dL Creatinine 1.59 H (0.66-1.25) mg/dL Glucose 151 H (74-99) mg/dL POC Glucose (mg/dL) 166 H (75-99) mg/dL Calcium 8.2 L (8.4-10.2) mg/dL Magnesium 2.8 H (1.6-2.3) mg/dL Iron (65-175) ug/dL TIBC (228-460) ug/dL Iron Saturation (15.00-50.00) Ferritin (22.0-322.0) ng/mL Total Protein 4.9 L (6.3-8.2) g/dL Albumin 2.6 L (3.5-5.0) g/dL 08/22/18 08/22/18 08/22/18 Range/Units 05:53 07:10 08:29 RBC (4.30-5.90) m/uL Hgb (13.0-17.5) gm/dL Hct (39.0-53.0) % Lymphocytes # (1.0-4.8) k/uL ABG pO2 80 L (83-108) mmHg ABG Total CO2 26 H (19-24) mmol/L Chloride (98-107) mmol/L BUN (9-20) mg/dL Creatinine (0.66-1.25) mg/dL Glucose (74-99) mg/dL POC Glucose (mg/dL) 163 H 167 H (75-99) mg/dL Calcium (8.4-10.2) mg/dL Magnesium (1.6-2.3) mg/dL Iron (65-175) ug/dL TIBC (228-460) ug/dL Iron Saturation (15.00-50.00) Ferritin (22.0-322.0) ng/mL Total Protein (6.3-8.2) g/dL Albumin (3.5-5.0) g/dL Microbiology - Last 24 Hours (Table) 08/21/18 13:23 Gram Stain - Preliminary Bronchial Washings - Random Bronchial Washings Culture - Preliminary 08/21/18 10:55 Gram Stain - Preliminary Sputum Sputum Culture - Preliminary 08/21/18 13:23 Acid Fast Bacilli Culture - Preliminary Bronchial Washings - Random 08/21/18 13:23 Fungal Culture - Preliminary Bronchial Washings - Random - Imaging and Cardiology Chest x-ray: report reviewed, image reviewed Assessment and Plan (1) NSTEMI (non-ST elevated myocardial infarction) Current Visit: Yes Status: Acute Code(s): I21.4 - NON-ST ELEVATION (NSTEMI) MYOCARDIAL INFARCTION SNOMED Code(s): 714224870 (2) CAD (coronary artery disease) Current Visit: Yes Status: Chronic Code(s): I25.10 - ATHSCL HEART DISEASE OF [place] CORONARY ARTERY W/O [place] PCTRS SNOMED Code(s): 25267747 (3) COPD (chronic obstructive pulmonary disease) Current Visit: Yes Status: Chronic Code(s): J44.9 - CHRONIC OBSTRUCTIVE PULMONARY DISEASE, UNSPECIFIED SNOMED Code(s): 77590801 (4) History of nephrectomy Current Visit: Yes Status: Chronic Code(s): Z90.5 - ACQUIRED ABSENCE OF KIDNEY SNOMED Code(s): 27692529819408 (5) History of prostate cancer Current Visit: Yes Status: Chronic Code(s): Z85.46 - PERSONAL HISTORY OF MALIGNANT NEOPLASM OF PROSTATE SNOMED Code(s): 538470507 (6) Hyperlipidemia Current Visit: Yes Status: Chronic Code(s): E78.5 - HYPERLIPIDEMIA, UNSPECIFIED SNOMED Code(s): 48912281 (7) Hypertension Current Visit: Yes Status: Chronic Code(s): I10 - ESSENTIAL (PRIMARY) HYPERTENSION SNOMED Code(s): 72172001 (8) Insulin dependent diabetes mellitus Current Visit: Yes Status: Chronic Code(s): E11.9 - TYPE 2 DIABETES MELLITUS WITHOUT COMPLICATIONS; Z79.4 - SEED CLEANER (CURRENT) USE OF INSULIN SNOMED Code(s): 53839745 (9) Left main coronary artery disease Current Visit: Yes Status: Chronic Code(s): I25.10 - ATHSCL HEART DISEASE OF [place] CORONARY ARTERY W/O [place] PCTRS SNOMED Code(s): 772680796 (10) Tobacco dependence in remission Current Visit: No Status: Resolved Code(s): F17.201 - NICOTINE DEPENDENCE, UNSPECIFIED, IN REMISSION SNOMED Code(s): 457127350 Plan: 1. Continue aspirin, statin, Plavix, beta laurie. Will increase beta laurie therapy as tolerated. 2. Decrease renal dose dopamine to 1.25 mcg/kg/m. 3. Ventilator management per pulmonology. Continue Zosyn managed by Dr. Almodovar. 4. Increase activity once extubated. PT/OT/cardiac rehab following. 6. Routine PICC line care. 7. Lasix 40 mg IV 1 now. 7. Bronchodilators per pulmonology. 8. Insulin per primary care service. 7. Will monitor daily labs and x-rays. 9. GI prophylaxis with Protonix. DVT prophylaxis with subcu heparin, SCDs. 10. Pain control with current medication regimen. 11. Continue Flomax for BPH. 12. Avoid nephrotoxic agents. 13. Place backup pacemaker generator to AAI at 50. 14. Continue vital high-protein to feedings per OG tube. 15. Bronchoscopy bronchial washing culture results pending. 16. More recommendations to follow based on patient's clinical course. Time with Patient: Greater than 30
--- NOTE | 2018-08-22 10:47 | P.PN ---
Subjective Progress Note Date: 08/22/18 Principal diagnosis: Symptomatic multivessel coronary artery disease, status post CABG. Postoperative day # 5 This is a 73-year-old white male patient of Dr. Joy Reagan, who presented emergency department on 08/13/2018 at 1840 evaluation of chest pain, associated with diaphoresis. The pain was non-radiating, and occurred after eating some spicy soup, patient was belching, and had some nausea. No vomiting. EKG showed some ST and T-wave abnormalities in the inferior, anterior, and lateral leads with T-wave inversion. Troponins were elevated at 0.128, 11.8, 11.8 and 9.270, patient was ruled in for non-ST elevated UT. Patient was placed on IV heparin, aspirin, Coreg, nitroglycerin and he underwent cardiac catheterization this afternoon with Dr. ALISHA Harper which showed a distal lesion of the left main of 70% before bifurcation into LAD and circumflex with calcification, 60% narrowing in the LAD at the origin of the first diagonal branch, 70% stenosis in the LAD at the origin of the second diagonal branch with probable thrombus, first obtuse marginal with 80-90% stenosis proximally, and 60% narrowing in the circumflex after the first obtuse marginal, total occlusion of the proximal RCA with some collateral circulation from the left system to the right. Patient has past medical history of coronary artery disease, COPD, diabetes mellitus type 2, hypertension, previous nicotine dependence, history of right nephrectomy in 1969 and chronic kidney disease. Patient was recommended to undergo coronary revascularization and cardiothoracic surgery has been consulted. We are seeing this patient for pulmonary evaluation. On 08/15/2018, the patient has no specific complaints. He is not having any chest pain. Resting comfortably in bed. Bedside spirometry was noted and there is no significant obstructive airway limitation. Chest x-ray was reviewed and showed some elevation of the right hemidiaphragm. Otherwise there is some subsegmental atelectatic changes in the lung bases. He is an ex- smoker. He is an obese male patient with a BMI of 39.0. No previous history of DVT or pulmonary embolism. No home O2. He is an ex-smoker. Overall performance status is good. On 08/16/2018 patient seen in follow-up on selective care unit. He sitting up on bed, in no acute distress, denies any shortness of breath. No chest pain, he is on heparin drip. Room air pulse ox is 94%, vital signs are stable. Lung sounds are clear. Patient is possibly scheduled for surgical revascularization surgery on 08/17/2018. No acute complaints overnight. Sinus rhythm. On 08/17/2018 patient seen in follow-up in the intensive care unit, he is status post three-vessel coronary artery bypass grafting, with CHAHAL to LAD, SVG to the PDA, and circumflex. Patient is currently sedated, intubated, on mechanical ventilator, and current vent settings are SIMV mode with a rate of 12 , tidal volume 500, FiO2 of 50% and PEEP of 10. IV drips include LR at a rate of 40, levothyroid at a rate of 10 mics per minute, Primacor is at 0.2 mics per kilo per minute, Precedex is at 0.2 mics per kilo per hour. Patient received 1500 of crystalloids and 1500 mL of 5% albumin, in addition to Cell Saver. [place] -El[place] catheter is in place, with PA pressures of 50/32, CVP of 25, cardiac output of 7.3, and cardiac index of 3.6. Patient has 2 mediastinal chest tubes and left pleural chest tubes with small amount of sanguinous output. AV epicardial wires are in place, patient is currently being paced at her mode of AAI with a rate of 80 BPM. The blood work showed WBC of 8.6, hemoglobin of 8.5 , INR 1.2, sodium of 140, potassium is 4.8, chloride is 110, BUN of 21, creatinine is 1.09. Blood gas showed pO2 of 79, pCO2 of 53, pH of 7.25. Vent settings were adjusted, and rate was increased to IMV with a rate of 18 breaths per minute. Suero catheter is in place, and patient is producing 30-50 ML per hour. Reevaluated today on 08/18/2018, patient was extubated last night uneventfully. Presently on nasal cannula, in no form of distress. However he is on 8 L high flow nasal cannula. Hemodynamically stable, on Primacor and low dose levo fed. Patient is relatively asymptomatic, chest x-ray is reassuring. Hemoglobin today is 7.9. BUN is 24 creatinine is 1.42, slightly worse compared to yesterday. Reevaluated today on 08/19/2018, patient developed significant amount of agitation and restlessness last night, placed on Precedex, and now he is on BiPAP. Blood pressure is a bit marginal. His urine output was marginal earlier today, and he received Lasix. He was also placed on 11 proximal for blood pressure control. Presently on BiPAP, seems to be at confused, agitated when aroused, ABG is reasonable with a pO2 of 104 pCO2 of 36 pH of 7.36 this morning. Chest x-ray showed mostly mediastinal widening, likely projectional, otherwise no significant abnormality noted. No evidence of congestive heart failure, minimal asymmetry or atelectasis is noted. Reevaluated today on 08/20/2018, remains on BiPAP, did not tolerate high flow nasal cannula, desaturated down significantly, but was much better on BiPAP. ABG on 50% BiPAP showed a pO2 of 141 pCO2 of 38 pH of 7.41. Patient is off Precedex today, hence I recommended Ativan 0.5 up to 1 mg every 2 hours as needed, I have also started the patient on Seroquel. And he 5 mg by mouth twice a day. Chest x-ray is suggestive of good sized right-sided pleural effusion and possible right lower lobe atelectasis, ultrasound was ordered, and if the fluid is large enough may consider even thoracentesis. CBC was reviewed hemoglobin is 7.6 today WBC count is 6.6. Electrolytes were reviewed to be normal, renal functioning is improving again BUN is 41 creatinine 1.40 it was 1.60 yesterday On 08/21/2018, patient was reevaluated, and apparently last night he had another episode of extreme agitation, patient was extremely restless, pulling all his tubes and lines, did not respond to Ativan and Haldol, hence I was notified about this patient, and I recommended intubation and mechanical ventilation and placing the patient on propofol. Patient is now on mechanical ventilation, and his ventilator settings are tidal volume of 500 assist control rate of 16 FiO2 is 60% PEEP of 8. ABG this morning showed a pO2 of 82 pCO2 of 40 pH of 7.36. CBC is relatively unremarkable. BUN is 55 creatinine is 1.63. Chest x-ray is showing some significant volume loss in the right lower lobe and possibly right middle lobe, Estrace therapy is suctioning significant amount of thick purulent secretions from the endotracheal tube, hence I believe the patient may have some component of the mucous plugging in the right mainstem bronchus or right middle lobe and right lower lobe. Hence I plan to arrange for bronchoscopy and evaluation of the right lower lobe and right middle lobe. In the meantime I will start the patient empirically on Zosyn. Considering his mental status and his agitation, patient could have had some component of aspiration, but we'll proceed with bronchoscopy and lavage of the right lung, and we will address that accordingly. No plans to wean or extubated the patient at this point, Reevaluated today on 08/22/2018, patient remains on mechanical ventilation, calm , on propofol drip, ventilator settings were noted, ABG was noted. And left unchanged. PO2 is 80 pCO2 of 41 pH of 7.39. CBC showed a hemoglobin of 7.4, relatively stable. Basic metabolic profile is normal. Creatinine is improved compared to yesterday, down to 1.59 compared to 1.63 yesterday. Patient is receiving nutritional support, enteral feeding, not requiring any pressors at this point. Objective - Vital Signs Vital signs: Vital Signs Temp 98.9 F 08/22/18 08:00 Pulse 71 08/22/18 10:00 Resp 21 08/22/18 10:00 BP 110/59 08/22/18 09:00 Pulse Ox 100 08/22/18 10:00 Intake & Output 08/21/18 08/22/18 08/22/18 18:59 06:59 18:59 Intake Total 165.548 3106.089 417.552 Output Total 740 795 110 Balance -110.210 234.089 307.552 Weight 110.3 kg Intake: IV 332 336.0 108 Lactated Ringers 1,000 ml 260 220 40 @ 20 mls/hr IV .Q24H [facility] Rx#:[id number] Piperacillin-Tazobactam 3 50.0 50 .375 gm In Dextrose/Water 1 50ml.bag @ 12.5 mls/hr IVPB Q8HR [facility] Rx#: [id number] pressure bags 72 66 18 Intake, IV Titration 267.790 273.089 189.552 Amount Insulin Regular 100 unit 0.758 In Sodium Chloride 0.9% 100 ml @ Per Protocol IV .Q0M [facility] Rx#:[id number] Norepinephrine 16 mg In 4.212 Sodium Chloride 0.9% 250 ml @ Titrate IV .Q0M [facility] Rx#:[id number] Propofol 1,000 mg In 262.820 273.089 89.552 Empty Bag 1 bag @ Titrate IV .Q0M [facility] Rx#: [id number] Sodium Ferric Gluconat- 100 Sucrose 125 mg In Sodium Chloride 0.9% 100 ml @ 100 mls/hr IVPB DAILY [facility] Rx#:[id number] Tube Feeding 30 330 90 Other 90 30 Output: Urine 740 795 110 Other: Voiding Method Indwelling Catheter Indwelling Catheter # Bowel Movements 1 ABP, PAP, CO, CI - Last Documented Arterial Blood Pressure 126/46 Pulmonary Artery Pressure 40/20 Cardiac Output 6.7 Cardiac Index 3.3 - Exam Physical Exam: Revealed a 73-year-old white male, sedated, intubated, Head: Atraumatic, normocephalic. HEENT: PERRLA, EOMI, no icterus. No JVD, no thyromegaly. Chest: Slightly diminished breath sounds at the right base, left side is relatively clear.. Cardiac Exam: S1, S2 present. Regular rate and rhythm, atrial paced on telemetry with underlying sinus rhythm with a rate in the 60s. A/V epicardial pacemaker wires present, connected to generator, AAI mode with rate 80 bpm. Palpable peripheral pulses bilaterally. Trace generalized edema present. No calf pain or tenderness noted. Abdomen: [No megaly no rebound, positive bowel sounds, obese abdomen noted. Extremities: Good perfusion, good pulses, and Hiren bandages noted in lower extremities bilaterally. Neurological Exam: Sedated, on propofol, could not assess the neurological status today. - Labs CBC & Chem 7: 08/22/18 04:35 08/22/18 04:35 Labs: Abnormal Lab Results - Last 24 Hours (Table) 08/21/18 08/21/18 08/21/18 Range/Units 04:20 12:00 12:37 RBC (4.30-5.90) m/uL Hgb (13.0-17.5) gm/dL Hct (39.0-53.0) % Lymphocytes # (1.0-4.8) k/uL ABG pO2 (83-108) mmHg ABG Total CO2 (19-24) mmol/L Chloride (98-107) mmol/L BUN (9-20) mg/dL Creatinine (0.66-1.25) mg/dL Glucose (74-99) mg/dL POC Glucose (mg/dL) 102 H 109 H (75-99) mg/dL Calcium (8.4-10.2) mg/dL Magnesium (1.6-2.3) mg/dL Iron 14 L (65-175) ug/dL TIBC 183 L (228-460) ug/dL Iron Saturation 7.65 L (15.00-50.00) Ferritin 459.5 H (22.0-322.0) ng/mL Total Protein (6.3-8.2) g/dL Albumin (3.5-5.0) g/dL 08/21/18 08/21/18 08/22/18 Range/Units 16:10 19:59 00:04 RBC (4.30-5.90) m/uL Hgb (13.0-17.5) gm/dL Hct (39.0-53.0) % Lymphocytes # (1.0-4.8) k/uL ABG pO2 (83-108) mmHg ABG Total CO2 (19-24) mmol/L Chloride (98-107) mmol/L BUN (9-20) mg/dL Creatinine (0.66-1.25) mg/dL Glucose (74-99) mg/dL POC Glucose (mg/dL) 113 H 125 H 169 H (75-99) mg/dL Calcium (8.4-10.2) mg/dL Magnesium (1.6-2.3) mg/dL Iron (65-175) ug/dL TIBC (228-460) ug/dL Iron Saturation (15.00-50.00) Ferritin (22.0-322.0) ng/mL Total Protein (6.3-8.2) g/dL Albumin (3.5-5.0) g/dL 08/22/18 08/22/18 08/22/18 Range/Units 04:35 04:35 04:36 RBC 2.49 L (4.30-5.90) m/uL Hgb 7.4 L (13.0-17.5) gm/dL Hct 23.7 L (39.0-53.0) % Lymphocytes # 0.4 L (1.0-4.8) k/uL ABG pO2 (83-108) mmHg ABG Total CO2 (19-24) mmol/L Chloride 111 H (98-107) mmol/L BUN 53 H (9-20) mg/dL Creatinine 1.59 H (0.66-1.25) mg/dL Glucose 151 H (74-99) mg/dL POC Glucose (mg/dL) 166 H (75-99) mg/dL Calcium 8.2 L (8.4-10.2) mg/dL Magnesium 2.8 H (1.6-2.3) mg/dL Iron (65-175) ug/dL TIBC (228-460) ug/dL Iron Saturation (15.00-50.00) Ferritin (22.0-322.0) ng/mL Total Protein 4.9 L (6.3-8.2) g/dL Albumin 2.6 L (3.5-5.0) g/dL 08/22/18 08/22/18 08/22/18 Range/Units 05:53 07:10 08:29 RBC (4.30-5.90) m/uL Hgb (13.0-17.5) gm/dL Hct (39.0-53.0) % Lymphocytes # (1.0-4.8) k/uL ABG pO2 80 L (83-108) mmHg ABG Total CO2 26 H (19-24) mmol/L Chloride (98-107) mmol/L BUN (9-20) mg/dL Creatinine (0.66-1.25) mg/dL Glucose (74-99) mg/dL POC Glucose (mg/dL) 163 H 167 H (75-99) mg/dL Calcium (8.4-10.2) mg/dL Magnesium (1.6-2.3) mg/dL Iron (65-175) ug/dL TIBC (228-460) ug/dL Iron Saturation (15.00-50.00) Ferritin (22.0-322.0) ng/mL Total Protein (6.3-8.2) g/dL Albumin (3.5-5.0) g/dL Microbiology - Last 24 Hours (Table) 08/21/18 13:23 Gram Stain - Preliminary Bronchial Washings - Random Bronchial Washings Culture - Preliminary 08/21/18 10:55 Gram Stain - Preliminary Sputum Sputum Culture - Preliminary 08/21/18 13:23 Acid Fast Bacilli Culture - Preliminary Bronchial Washings - Random 08/21/18 13:23 Fungal Culture - Preliminary Bronchial Washings - Random Assessment and Plan Assessment: Impression: 1 status post CABG for coronary artery disease, postoperative day # 5 2 postoperative ICU psychosis and delirium requiring reintubation on 08/20/2018, 3 acute ICU psychosis and delirium with acute hypoxic respiratory failure requiring intubation. 4 suspect right lower lobe collapse, underwent a bronchoscopy on 08/21/2018, mucous plugs were removed. Cultures are pending. In the meantime the patient is on Zosyn. 5 type 2 diabetes, requiring insulin. 6 intermittent episodes of psychosis and delirium since his surgery. Unexpected. 7 multiple comorbidities including COPD, tobacco dependence in remission, prostate cancer, hyperlipidemia, benign essential hypertension, and previous nephrectomy. Recommendation: Continue mechanical ventilation, nutritional support, patient had a PICC line placed yesterday, continue enteral feeding, GI and DVT prophylaxis, I will interrupt sedation today, assess mental status, however I strongly doubt of the patient would be calm enough once propofol is off to consider weaning and extubation at this point. Most likely he will remain on mechanical ventilation for today. We'll continue to follow. Critical care time is 35 minutes. Time with Patient: Greater than 30
[2018-08-22] MEDS: DEXTROSE/WATER 1 500ML.BAG with DOPamine DRIP 800 MG IV SCH (11:45)
--- NOTE | 2018-08-22 11:50 | P.PN ---
Subjective Progress Note Date: 08/22/18 This is 73-year-old gentleman with history of bypass surgery. Patient was reintubated because of respiratory difficulties. He seemed to be hemodynamically stable. No arrhythmias are detected. Chest x-ray showed possible right lower lobe infiltrate and bilateral effusions. Patient is on broad-spectrum antibiotics. Most probably,pt had a possible aspiration pneumonia. Apparently patient was confused and agitated prior to the incident. Patient is also diuretics and beta blockers. We'll continue current medical therapy Objective - Vital Signs Vital signs: Vital Signs Temp 98.9 F 08/22/18 08:00 Pulse 79 08/22/18 11:35 Resp 17 08/22/18 11:00 BP 80/45 08/22/18 11:00 Pulse Ox 100 08/22/18 11:00 Intake & Output 08/21/18 08/22/18 08/22/18 18:59 06:59 18:59 Intake Total 812.440 5989.089 513.665 Output Total 740 795 310 Balance -110.210 234.089 203.665 Weight 110.3 kg Intake: IV 332 336.0 160 Lactated Ringers 1,000 ml 260 220 80 @ 20 mls/hr IV .Q24H [facility] Rx#:[id number] Piperacillin-Tazobactam 3 50.0 50 .375 gm In Dextrose/Water 1 50ml.bag @ 12.5 mls/hr IVPB Q8HR [facility] Rx#: [id number] pressure bags 72 66 30 Intake, IV Titration 267.790 273.089 203.665 Amount Insulin Regular 100 unit 0.758 In Sodium Chloride 0.9% 100 ml @ Per Protocol IV .Q0M [facility] Rx#:[id number] Norepinephrine 16 mg In 4.212 Sodium Chloride 0.9% 250 ml @ Titrate IV .Q0M [facility] Rx#:[id number] Propofol 1,000 mg In 262.820 273.089 103.665 Empty Bag 1 bag @ Titrate IV .Q0M [facility] Rx#: [id number] Sodium Ferric Gluconat- 100 Sucrose 125 mg In Sodium Chloride 0.9% 100 ml @ 100 mls/hr IVPB DAILY [facility] Rx#:[id number] Tube Feeding 30 330 120 Other 90 30 Output: Urine 740 795 310 Other: Voiding Method Indwelling Catheter Indwelling Catheter # Bowel Movements 1 1 ABP, PAP, CO, CI - Last Documented Arterial Blood Pressure 102/41 Pulmonary Artery Pressure 40/20 Cardiac Output 6.7 Cardiac Index 3.3 - Exam GENERAL EXAM: Patient intubated and sedated HEENT: Normocephalic. Normal reaction of pupils, equal size, normal range of extraocular motion. No erythema or exudates in the throat. NECK: No masses, no nuchal rigidity. CHEST: Postsurgical LUNGS: Diminished breath sounds at bases HEART: S1 and S2 normal with no audible mumurs or gallops. Regular rhythm, femorals equal on both sides.. ABDOMEN: No hepatosplenomegaly, normal bowel sounds, no guarding or rigidity. SKIN: No rashes CENTRAL NERVOUS SYSTEM: Deferred EXTREMITIES: I'll edema - Labs CBC & Chem 7: 08/22/18 04:35 08/22/18 04:35 Labs: Abnormal Lab Results - Last 24 Hours (Table) 08/21/18 08/21/18 08/21/18 Range/Units 04:20 12:00 12:37 RBC (4.30-5.90) m/uL Hgb (13.0-17.5) gm/dL Hct (39.0-53.0) % Lymphocytes # (1.0-4.8) k/uL ABG pO2 (83-108) mmHg ABG Total CO2 (19-24) mmol/L Chloride (98-107) mmol/L BUN (9-20) mg/dL Creatinine (0.66-1.25) mg/dL Glucose (74-99) mg/dL POC Glucose (mg/dL) 102 H 109 H (75-99) mg/dL Calcium (8.4-10.2) mg/dL Magnesium (1.6-2.3) mg/dL Iron 14 L (65-175) ug/dL TIBC 183 L (228-460) ug/dL Iron Saturation 7.65 L (15.00-50.00) Ferritin 459.5 H (22.0-322.0) ng/mL Total Protein (6.3-8.2) g/dL Albumin (3.5-5.0) g/dL 08/21/18 08/21/18 08/22/18 Range/Units 16:10 19:59 00:04 RBC (4.30-5.90) m/uL Hgb (13.0-17.5) gm/dL Hct (39.0-53.0) % Lymphocytes # (1.0-4.8) k/uL ABG pO2 (83-108) mmHg ABG Total CO2 (19-24) mmol/L Chloride (98-107) mmol/L BUN (9-20) mg/dL Creatinine (0.66-1.25) mg/dL Glucose (74-99) mg/dL POC Glucose (mg/dL) 113 H 125 H 169 H (75-99) mg/dL Calcium (8.4-10.2) mg/dL Magnesium (1.6-2.3) mg/dL Iron (65-175) ug/dL TIBC (228-460) ug/dL Iron Saturation (15.00-50.00) Ferritin (22.0-322.0) ng/mL Total Protein (6.3-8.2) g/dL Albumin (3.5-5.0) g/dL 08/22/18 08/22/18 08/22/18 Range/Units 04:35 04:35 04:36 RBC 2.49 L (4.30-5.90) m/uL Hgb 7.4 L (13.0-17.5) gm/dL Hct 23.7 L (39.0-53.0) % Lymphocytes # 0.4 L (1.0-4.8) k/uL ABG pO2 (83-108) mmHg ABG Total CO2 (19-24) mmol/L Chloride 111 H (98-107) mmol/L BUN 53 H (9-20) mg/dL Creatinine 1.59 H (0.66-1.25) mg/dL Glucose 151 H (74-99) mg/dL POC Glucose (mg/dL) 166 H (75-99) mg/dL Calcium 8.2 L (8.4-10.2) mg/dL Magnesium 2.8 H (1.6-2.3) mg/dL Iron (65-175) ug/dL TIBC (228-460) ug/dL Iron Saturation (15.00-50.00) Ferritin (22.0-322.0) ng/mL Total Protein 4.9 L (6.3-8.2) g/dL Albumin 2.6 L (3.5-5.0) g/dL 08/22/18 08/22/18 08/22/18 Range/Units 05:53 07:10 08:29 RBC (4.30-5.90) m/uL Hgb (13.0-17.5) gm/dL Hct (39.0-53.0) % Lymphocytes # (1.0-4.8) k/uL ABG pO2 80 L (83-108) mmHg ABG Total CO2 26 H (19-24) mmol/L Chloride (98-107) mmol/L BUN (9-20) mg/dL Creatinine (0.66-1.25) mg/dL Glucose (74-99) mg/dL POC Glucose (mg/dL) 163 H 167 H (75-99) mg/dL Calcium (8.4-10.2) mg/dL Magnesium (1.6-2.3) mg/dL Iron (65-175) ug/dL TIBC (228-460) ug/dL Iron Saturation (15.00-50.00) Ferritin (22.0-322.0) ng/mL Total Protein (6.3-8.2) g/dL Albumin (3.5-5.0) g/dL Microbiology - Last 24 Hours (Table) 08/21/18 13:23 Gram Stain - Preliminary Bronchial Washings - Random Bronchial Washings Culture - Preliminary 08/21/18 10:55 Gram Stain - Preliminary Sputum Sputum Culture - Preliminary 08/21/18 13:23 Acid Fast Bacilli Culture - Preliminary Bronchial Washings - Random 08/21/18 13:23 Fungal Culture - Preliminary Bronchial Washings - Random Assessment and Plan (1) NSTEMI (non-ST elevated myocardial infarction) Current Visit: Yes Status: Acute Code(s): I21.4 - NON-ST ELEVATION (NSTEMI) MYOCARDIAL INFARCTION SNOMED Code(s): 524438411 (2) CAD (coronary artery disease) Current Visit: Yes Status: Chronic Code(s): I25.10 - ATHSCL HEART DISEASE OF [place] CORONARY ARTERY W/O ANG PCTRS SNOMED Code(s): 41222577 (3) COPD (chronic obstructive pulmonary disease) Current Visit: Yes Status: Chronic Code(s): J44.9 - CHRONIC OBSTRUCTIVE PULMONARY DISEASE, UNSPECIFIED SNOMED Code(s): 00186975 (4) Hyperlipidemia Current Visit: Yes Status: Chronic Code(s): E78.5 - HYPERLIPIDEMIA, UNSPECIFIED SNOMED Code(s): 19296574 (5) Hypertension Current Visit: Yes Status: Chronic Code(s): I10 - ESSENTIAL (PRIMARY) HYPERTENSION SNOMED Code(s): 47018505 Plan: We'll continue current management with IV diuretics and antibiotics. Respiratory support. Further recommendations depend upon clinical course
[2018-08-22 13:01] LABS: Glucose,Whole Blood 164 mg/dL (75-99)
[2018-08-22] MEDS: LACTATED RINGERS 1,000 ML IV SCH (13:15)
[2018-08-22] MEDS: CLEVIDIPINE BUTYRATE 25 MG in EMPTY BAG 1 BAG IV SCH (16:00)
[2018-08-22 17:05] LABS: Glucose,Whole Blood 143 mg/dL (75-99)
--- NOTE | 2018-08-22 17:14 | P.PN ---
Subjective Progress Note Date: 08/22/18 This is a 73-year-old male, patient of [facility]. He has a known past medical history of hypertension, diabetes mellitus, COPD, right nephrectomy 1970 and former smoker. Patient presents to the emergency room with complaints of chest pain with pressure and heaviness and diaphoresis. Symptoms had started yesterday. Patient was diagnosed with a non-ST elevated AK. Initial troponin 0.128 then 11.6 and 11.8. Patient was started on IV heparin cardiology was consulted. And patient underwent heart catheterization today. The heart catheterization shows total occlusion of the right coronary artery. Left main is 70-75% stenosed. The left anterior descending coronary artery has a mid lesion of 70% with thrombus. Obtuse marginal had 80-85% stenosis. Cardiology is recommending open-heart surgery. That her surgery has been consulted. They have already evaluated patient and surgery we'll possibly be on Friday. Pulmonary service has also been consulted. Patient is receiving IV fluids. He was slightly dehydrated on admission creatinine was 1.44. Unclear baseline creatinine. Creatinine in March 2018 was 1.3. Patient currently is chest pain-free. He reports that symptoms started after eating spicy soup and when he came back home he belched a large amount of gas and is relieved the pressure. He has been chest pain-free. Cardiology has placed him on IV heparin and Aggrastat. On 08/15/2018 patient was seen and examined he is alert and oriented 3 in no apparent distress he is sitting at the edge of the bed and he denies any chest pain there is no shortness of breath at rest he has occasional cough no palpitation no nausea or vomiting no abdominal pain no diarrhea no constipation no burning with urination no frequency or urgency and no hematuria. On 08/16/2018 patient was seen and examined on the telemetry floor he is alert and oriented 3 in no distress he denies any new episodes of chest pain he denies any other symptoms there is no fever or chills no headache or dizziness no shortness of breath no cough no nausea or vomiting no abdominal pain no diarrhea no burning was urination no frequency or urgency and no hematuria On 08/17/2018 Patient had coronary artery bypass graft [address] Hannah today. Patient currently intubated and on sedation. Patient remains in the intensive care unit. Patient currently on levophed for pressure support. On 08/18/2018 patient is currently postop day 1 and coronary artery bypass graft surgery. Patient is currently up in chair. Patient was extubated throughout night. Precedex drip has been DC'd per cardiovascular team. Patient remains sleepy but alert and arousable. At this time patient denies shortness of breath. Denies nausea vomiting or diarrhea. Denies any urinary burning. On 08/19/2018 patient is currently postop day 2 from coronary artery bypass graft. Per nursing staff patient is confused. Patient is also requiring BiPAP to maintain adequate oxygenation. Discussed case with Luna from the cardiovascular surgical team. Patient remains on Precedex drip. safety sitting at bedside. On 08/20/2018 patient is currently postop day 2 from coronary artery bypass graft. Patient remains on BiPAP for adequate oxygen. Precedex drip has been DC 'd. Patient does seem more alert. Patient followed closely by cardiovascular surgical team and critical care On 08/21/2018 patient got reintubated last night due to agitation and hypoxia. Patient is currently on propofol for sedation. Patient also started on Levophed for pressure support. Critical care team following closely. On 08/22/2018 patient got reintubated due to agitation and hypoxia. Patient is currently on propofol for sedation. Patient also started on Levophed for pressure support. Critical care team following closely. Objective - Vital Signs Vital signs: Vital Signs Temp 99.4 F 08/22/18 16:00 Pulse 79 08/22/18 17:00 Resp 17 08/22/18 17:00 BP 105/56 08/22/18 17:00 Pulse Ox 99 08/22/18 17:00 Intake & Output 08/21/18 08/22/18 08/22/18 18:59 06:59 18:59 Intake Total 460.050 3846.089 1007.641 Output Total 573 921 5454 Balance -110.210 234.089 -577.359 Weight 110.3 kg 108.2 kg Intake: IV 332 336.0 316 Lactated Ringers 1,000 ml 260 220 200 @ 20 mls/hr IV .Q24H [facility] Rx#:[id number] Piperacillin-Tazobactam 3 50.0 50 .375 gm In Dextrose/Water 1 50ml.bag @ 12.5 mls/hr IVPB Q8HR [facility] Rx#: [id number] pressure bags 72 66 66 Intake, IV Titration 267.790 273.089 271.641 Amount Insulin Regular 100 unit 0.758 In Sodium Chloride 0.9% 100 ml @ Per Protocol IV .Q0M [facility] Rx#:[id number] Norepinephrine 16 mg In 4.212 Sodium Chloride 0.9% 250 ml @ Titrate IV .Q0M [facility] Rx#:[id number] Propofol 1,000 mg In 262.820 273.089 171.641 Empty Bag 1 bag @ Titrate IV .Q0M [facility] Rx#: [id number] Sodium Ferric Gluconat- 100 Sucrose 125 mg In Sodium Chloride 0.9% 100 ml @ 100 mls/hr IVPB DAILY [facility] Rx#:[id number] Tube Feeding 30 330 330 Other 90 90 Output: Urine 605 325 4826 Other: Voiding Method Indwelling Catheter Indwelling Catheter Indwelling Catheter # Bowel Movements 1 1 ABP, PAP, CO, CI - Last Documented Arterial Blood Pressure 115/42 Pulmonary Artery Pressure 40/20 Cardiac Output 6.7 Cardiac Index 3.3 - Exam Patient is intubated sedated maintained on mechanical ventilation Head normocephalic and atraumatic Neck supple no JVD no goiter Lungs patient currently intubated Heart regular rate and rhythm S1-S2, no rub or gallop Abdomen is soft nontender nondistended positive bowel sounds no hepatosplenomegaly Extremities no edema no cyanosis or clubbing - Labs CBC & Chem 7: 08/22/18 04:35 08/22/18 04:35 Labs: Abnormal Lab Results - Last 24 Hours (Table) 08/21/18 08/21/18 08/22/18 Range/Units 04:20 19:59 00:04 RBC (4.30-5.90) m/uL Hgb (13.0-17.5) gm/dL Hct (39.0-53.0) % Lymphocytes # (1.0-4.8) k/uL ABG pO2 (83-108) mmHg ABG Total CO2 (19-24) mmol/L Chloride (98-107) mmol/L BUN (9-20) mg/dL Creatinine (0.66-1.25) mg/dL Glucose (74-99) mg/dL POC Glucose (mg/dL) 125 H 169 H (75-99) mg/dL Calcium (8.4-10.2) mg/dL Magnesium (1.6-2.3) mg/dL Iron 14 L (65-175) ug/dL TIBC 183 L (228-460) ug/dL Iron Saturation 7.65 L (15.00-50.00) Ferritin 459.5 H (22.0-322.0) ng/mL Total Protein (6.3-8.2) g/dL Albumin (3.5-5.0) g/dL 08/22/18 08/22/18 08/22/18 Range/Units 04:35 04:35 04:36 RBC 2.49 L (4.30-5.90) m/uL Hgb 7.4 L (13.0-17.5) gm/dL Hct 23.7 L (39.0-53.0) % Lymphocytes # 0.4 L (1.0-4.8) k/uL ABG pO2 (83-108) mmHg ABG Total CO2 (19-24) mmol/L Chloride 111 H (98-107) mmol/L BUN 53 H (9-20) mg/dL Creatinine 1.59 H (0.66-1.25) mg/dL Glucose 151 H (74-99) mg/dL POC Glucose (mg/dL) 166 H (75-99) mg/dL Calcium 8.2 L (8.4-10.2) mg/dL Magnesium 2.8 H (1.6-2.3) mg/dL Iron (65-175) ug/dL TIBC (228-460) ug/dL Iron Saturation (15.00-50.00) Ferritin (22.0-322.0) ng/mL Total Protein 4.9 L (6.3-8.2) g/dL Albumin 2.6 L (3.5-5.0) g/dL 08/22/18 08/22/18 08/22/18 Range/Units 05:53 07:10 08:29 RBC (4.30-5.90) m/uL Hgb (13.0-17.5) gm/dL Hct (39.0-53.0) % Lymphocytes # (1.0-4.8) k/uL ABG pO2 80 L (83-108) mmHg ABG Total CO2 26 H (19-24) mmol/L Chloride (98-107) mmol/L BUN (9-20) mg/dL Creatinine (0.66-1.25) mg/dL Glucose (74-99) mg/dL POC Glucose (mg/dL) 163 H 167 H (75-99) mg/dL Calcium (8.4-10.2) mg/dL Magnesium (1.6-2.3) mg/dL Iron (65-175) ug/dL TIBC (228-460) ug/dL Iron Saturation (15.00-50.00) Ferritin (22.0-322.0) ng/mL Total Protein (6.3-8.2) g/dL Albumin (3.5-5.0) g/dL 08/22/18 08/22/18 Range/Units 12:59 17:03 RBC (4.30-5.90) m/uL Hgb (13.0-17.5) gm/dL Hct (39.0-53.0) % Lymphocytes # (1.0-4.8) k/uL ABG pO2 (83-108) mmHg ABG Total CO2 (19-24) mmol/L Chloride (98-107) mmol/L BUN (9-20) mg/dL Creatinine (0.66-1.25) mg/dL Glucose (74-99) mg/dL POC Glucose (mg/dL) 164 H 143 H (75-99) mg/dL Calcium (8.4-10.2) mg/dL Magnesium (1.6-2.3) mg/dL Iron (65-175) ug/dL TIBC (228-460) ug/dL Iron Saturation (15.00-50.00) Ferritin (22.0-322.0) ng/mL Total Protein (6.3-8.2) g/dL Albumin (3.5-5.0) g/dL Microbiology - Last 24 Hours (Table) 08/21/18 10:55 Gram Stain - Preliminary Sputum Sputum Culture - Preliminary 08/21/18 13:23 Gram Stain - Preliminary Bronchial Washings - Random Bronchial Washings Culture - Preliminary 08/21/18 13:23 Acid Fast Bacilli Culture - Preliminary Bronchial Washings - Random 08/21/18 13:23 Fungal Culture - Preliminary Bronchial Washings - Random Assessment and Plan Plan: 1. Status post coronary artery bypass graft [address] Hannah postop day 4. The CHAHAL to LAD, SVG to PDA and Circ. Patient currently intubated and on sedation. Cardiovascular team and critical care team following closely. Patient currently up in chair. Patient has been extubated throughout night. hemoglobin 7.9. Discussed case with Luna per cardiovascular surgical team 2-D echo has been ordered due to diminished heart sounds. Hemoglobin 7.3. On 08/20 Patieht required reintubation due to extreme agitation and hypoxia. Critical care team following closely. PICC line placement ordered per cardiovascular surgery 2. Acute respiratory failure. Patient required reintubation last night 08/20. Chest x-ray completed showing right pleural effusion and bilateral lower lobe pulmonary infiltrates. There is probably mild heart failure. Endotracheal tube is in good position. Heart and lungs appear unchanged. Chest ultrasound completed showing small to tiny bilateral pleural effusions. Per pulmonary team No thoracentesis at this time. Per pulmonary services bronchoscopy today. 3. Acute Non-ST elevated myocardial infarction: Heart catheterization showing multivessel coronary artery disease with thrombus in the LAD. Patient has been seen by vascular surgery and planning for open heart surgery on Friday. Continue IV heparin and Aggrastat per cardiology. Continue with IV fluids. Pulmonary service also consulted for preop clearance. 4. Acute kidney injury: Unclear patient has chronic kidney disease. Creatinine in March 2018 was 1.3. Continue with IV fluid hydration. Creatinine 1.42. Continue to monitor closely. Creatinine continued to increase to 1.60. Discussed case with Luna gardner from cardiovascular surgery will continue to monitor closely at this point. Creatinine improving to 1.40 and bun 41. Nephrology services consulted. 5. Essential hypertension 6. Diabetes mellitus insulin-dependent. Hemoglobin A1c 7.9. Patient on sliding scale insulin 7. History of COPD: No evidence of exacerbation. continue albuterol nebulizer as needed 8. BPH continue Flomax 9. Atelectasis noted on chest x-ray order incentive spirometer 10. Obesity BMI 39.4 kg 11. Possible acute ICU psychosis and delirium. Patient remains on Precedex. Critical care team following closely. On 08/20 patient required reintubation. Patient currently on Diprivan for sedation DVT prophylaxis heparin and GI prophylaxis Protonix
[2018-08-22 20:06] LABS: Glucose,Whole Blood 111 mg/dL (75-99)
[2018-08-22] MEDS: SENNOSIDES-DOCUSATE SODIUM 1 EACH TAB PO SCH (20:38)
[2018-08-22] MEDS: TAMSULOSIN 0.4 MG CAP.ER.24H PO SCH (20:39)
[2018-08-23] MEDS: NOREPINEPHRINE 16 MG in SODIUM CHLORIDE 0.9% 250 ML IV SCH (00:03)
[2018-08-23 00:07] LABS: Glucose,Whole Blood 182 mg/dL (75-99)
[2018-08-23] MEDS: PIPERACILLIN-TAZOBACTAM 3.375 GM in DEXTROSE/WATER 1 50ML.BAG IVPB SCH ×4 (00:14→23:48)
[2018-08-23] MEDS: HEPARIN SODIUM,PORCINE 5,000 UNIT/ML 1 ML VIAL SQ SCH ×4 (00:14→23:43)
[2018-08-23] MEDS: DEXTROSE/WATER 1 500ML.BAG with DOPamine DRIP 800 MG IV SCH (00:15)
[2018-08-23] MEDS: PROPOFOL 1,000 MG in EMPTY BAG 1 BAG IV SCH ×6 (00:16→20:06)
[2018-08-23] MEDS: INSULIN ASPART 100 UNIT/ML 1 ML 10 ML VIAL SQ SCH ×7 (00:26→23:45)
[2018-08-23 03:47] LABS: Glucose,Whole Blood 172 mg/dL (75-99)
[2018-08-23 04:40] LABS: Basophils % (A) 0 %; Eosinophils # (A) 0.2 k/uL (0-0.7); Eosinophils % (A) 5 %; HCT 23.2 % (39.0-53.0); HGB 7.2 gm/dL (13.0-17.5); Hypochromasia Slight; Lymphocytes # (A) 0.5 k/uL (1.0-4.8); Lymphocytes % (A) 11 %; MCH 28.7 pg (25.0-35.0); MCV 92.6 fL (80.0-100.0); Mean Platelet Volume 7.6; Monocytes # (A) 0.2 k/uL (0-1.0); Monocytes % (A) 6 %; Neutrophils # (A) 3.1 k/uL (1.3-7.7); Neutrophils % (A) 76 %; Platelet Count 182 k/uL (150-450); RBC 2.51 m/uL (4.30-5.90); RDW 15.4 % (11.5-15.5); WBC 4.1 k/uL (3.8-10.6)
[2018-08-23 05:09] LABS: Albumin 2.5 g/dL (3.5-5.0); Calcium 8.1 mg/dL (8.4-10.2); Potassium 4.3 mmol/L (3.5-5.1); Total Bilirubin 0.6 mg/dL (0.2-1.3); Total Protein 4.9 g/dL (6.3-8.2)
--- NOTE | 2018-08-23 06:40 | XR ---
EXAMINATION TYPE: XR chest 1V portable DATE OF EXAM: 08/23/2018 HISTORY: Mechanical ventilation. REFERENCE: Previous study dated 08/22/2018. FINDINGS: There has been a midline sternotomy. The patient is NG tube and ET tube remain in place, un changed in appearance. The heart is enlarged. There is bibasilar airspace disease. There are bilateral effusions. Overall ae ration of the right lung has improved slightly. IMPRESSION: SLIGHTLY IMPROVED AERATION, RIGHT LUNG BASE.
[2018-08-23 07:22] LABS: ABG Base Excess 1.2 mmol/L; ABG HCO3 26 mmol/L (21-25); ABG Oxygen Saturation 97.8 % (94-97); ABG PCO2 41 mmHg (35-45); ABG PH 7.41 (7.35-7.45); ABG PO2 89 mmHg (83-108); ABG TCO2 27 mmol/L (19-24)
[2018-08-23 07:45] LABS: Magnesium 2.5 mg/dL (1.6-2.3)
[2018-08-23] MEDS: IPRATROPIUM-ALBUTEROL 3 ML NEB INHALATION SCH ×4 (07:49→19:44)
[2018-08-23] MEDS: ASCORBIC ACID 500 MG TAB PO SCH ×2 (08:42→16:52)
[2018-08-23] MEDS: FERROUS SULFATE ORAL ELIXIR 300 MG/5 ML CUP PO SCH ×2 (08:42→17:13)
[2018-08-23 08:54] LABS: Glucose,Whole Blood 182 mg/dL (75-99)
[2018-08-23] MEDS: CHLORHEXIDINE GLUCONATE 15 ML CUP MUCOUS MEM SCH ×2 (08:54→20:07)
[2018-08-23] MEDS: CLOPIDOGREL 75 MG TAB PO SCH (08:54)
[2018-08-23] MEDS: ATORVASTATIN 40 MG TAB PO SCH (08:54)
[2018-08-23] MEDS: METOPROLOL TARTRATE 12.5 MG TAB PO SCH ×2 (08:55→20:07)
[2018-08-23] MEDS: PANTOPRAZOLE 40 MG/10 ML VIAL IVP SCH (08:55)
[2018-08-23] MEDS: SODIUM FERRIC GLUCONAT-SUCROSE 125 MG in SODIUM CHLORIDE 0.9% 100 ML IVPB SCH (09:34)
[2018-08-23] MEDS: ASPIRIN 325 MG TAB PO SCH (09:45)
[2018-08-23] MEDS: QUEtiapine 50 MG TAB PO SCH ×2 (09:46→20:07)
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
[2018-08-23] MEDS ORDERED: FUROSEMIDE 10 MG/ML 4 ML VIAL IV STA (10:43)
--- NOTE | 2018-08-23 10:45 | P.PN ---
Subjective Progress Note Date: 08/23/18 Principal diagnosis: Non-elevated myocardial infarction this admission, symptomatic multivessel coronary artery disease, preoperative impaired left ventricular systolic function with an ejection fraction of 20-25%, hypertension, insulin-dependent diabetes mellitus with a preoperative hemoglobin A1c of 7.1%, COPD with a FEV1 of 87% of predicted, history of nicotine dependence quit smoking in 1979, history of prostate cancer with radiation more than 20 years ago, BPH, obesity with a BMI of 39.4, history of right nephrectomy in 1969, baseline admission creatinine 1.44 and hyperlipidemia. POD #6 urgent coronary artery bypass grafting 3 vessels, left internal mammary artery to left anterior descending coronary artery, a reverse greater saphenous vein graft to obtuse marginal coronary artery, a reverse greater saphenous vein graft to posterior descending coronary artery, endoscopic vein harvest of the left greater saphenous vein, epi-aortic ultrasound, intraoperative transesophageal echocardiogram, closure of sternum using titanium plates and Soldier cable system. POD #2 bronchoscopy, bronchoalveolar lavage of the right middle lobe, right lower lobe and washings of both lungs performed by Dr. Almodovar from pulmonary medicine. Postoperative right lower lobe collapse, secondary to mucous plugging, an unexpected outcome. Postoperative delirium, an unexpected outcome. Postoperative acute respiratory distress requiring reintubation, and prolonged mechanical ventilation, an unexpected outcome. Postoperative acute blood loss anemia, an expected outcome of surgery due to cardiopulmonary bypass and hemodilution. Currently the patient remains intubated with mechanical ventilator support. He is in no acute distress. He remains sedated on propofol drip at 35 mcg/kg/m. He is not following any verbal commands at this time, although he does respond to noxious stimuli. Patient moves all 4 extremities, episodes of breathlessness. He remains off norepinephrine drip. Currently he has hemodynamically stable. Left antecubital PICC line placed 08/21/2018. Objective - Vital Signs Vital signs: Vital Signs Temp 98.7 F 08/23/18 04:00 Pulse 78 08/23/18 08:14 Resp 70 H 08/23/18 06:00 BP 102/53 08/23/18 06:00 Pulse Ox 99 08/23/18 06:00 Intake & Output 08/22/18 08/23/18 08/23/18 18:59 06:59 18:59 Intake Total 1130.709 801.451 82.8 Output Total 1735 880 Balance -604.291 -78.549 82.8 Weight 108.2 kg Intake: IV 344 319.1 Dextrose 5% in Water 100 56.1 ml @ 618 mls/hr IV .Q10M PRN with Amiodarone 150 mg Rx#:[id number] Lactated Ringers 1,000 ml 240 180 @ 20 mls/hr IV .Q24H [facility] Rx#:[id number] Piperacillin-Tazobactam 3 50 50.0 .375 gm In Dextrose/Water 1 50ml.bag @ 12.5 mls/hr IVPB Q8HR [facility] Rx#: [id number] pressure bags 54 33 Intake, IV Titration 306.709 242.351 82.8 Amount Norepinephrine 16 mg In 21.984 Sodium Chloride 0.9% 250 ml @ Titrate IV .Q0M [facility] Rx#:[id number] Propofol 1,000 mg In 206.709 220.367 82.8 Empty Bag 1 bag @ Titrate IV .Q0M [facility] Rx#: [id number] Sodium Ferric Gluconat- 100 Sucrose 125 mg In Sodium Chloride 0.9% 100 ml @ 100 mls/hr IVPB DAILY [facility] Rx#:[id number] Tube Feeding 390 150 Other 90 90 Output: Urine 1735 880 Other: Voiding Method Indwelling Catheter Indwelling Catheter # Bowel Movements 1 ABP, PAP, CO, CI - Last Documented Arterial Blood Pressure 137/57 Pulmonary Artery Pressure 40/20 Cardiac Output 6.7 Cardiac Index 3.3 - Constitutional General appearance: Present: morbidly obese, no acute distress - Respiratory Details: Lungs sounds essentially clear throughout, diminished to his bilateral bases right greater than left. Respirations are symmetrical and nonlabored with mechanical ventilator support. Current ventilator settings are as follows: Assist control 16, tidal volume 500, FiO2 50% and PEEP of 8. Oxygen saturations on current chemical ventilator settings are 99%. ABG results this morning show a pH of 7.41, pCO2 41, pO2 89, HCO3 26, O2 sat 97.8 and a base excess of 1.2. - Cardiovascular Details: Regular rhythm and rate. S1 and S2 present, negative for S3, gallop or murmur. Sternum is stable. Bedside telemetry showing normal sinus rhythm heart rate 74. Atrial and ventricular epicardial pacemaker wires present and connected to a backup bedside pacemaker generator with an AAIR of 50. Knee-high MARCELLE hose and sequential compression devices in place to his bilateral lower extremities. Heart hugger is in place. Right radial arterial line in place and functioning. Left antecubital PICC line in place and functioning. - Gastrointestinal Gastrointestinal Comment(s): Abdomen is soft, nontender and nondistended. Active bowel sounds to all 4 abdominal quadrants. OG tube in place with vital high-protein tube feeding infusing at a goal rate of 30 mL per hour with automatic water flushes. Bowel movement yesterday 08/22/2018. - Genitourinary Genitourinary Comment(s): Suero catheter for accurate I&O. Draining clear yellow urine. 645 mL output in the last 8 hours. Dopamine drip remains infusing at 1.25 mcg/kg/m. - Integumentary Integumentary Comment(s): Skin is warm and dry. No clubbing or cyanosis present. Midline sternal incision clean dry and approximated. No drainage or redness present. Left lower extremity EVH site clean dry and approximated. Some ecchymosis present to his left thigh, soft touch. - Neurologic Neurologic Comment(s): Currently sedated on propofol drip at 35 mcg/kg/m. Withdrawals from noxious stimuli to all 4 extremities. - Musculoskeletal Musculoskeletal: Present: generalized weakness - Allied health notes Allied health notes reviewed: nursing - Labs CBC & Chem 7: 08/23/18 04:25 08/23/18 04:25 Labs: Abnormal Lab Results - Last 24 Hours (Table) 08/22/18 08/22/18 08/22/18 Range/Units 08:29 12:59 17:03 RBC (4.30-5.90) m/uL Hgb (13.0-17.5) gm/dL Hct (39.0-53.0) % Lymphocytes # (1.0-4.8) k/uL ABG HCO3 (21-25) mmol/L ABG Total CO2 (19-24) mmol/L ABG O2 Saturation (94-97) % Chloride (98-107) mmol/L BUN (9-20) mg/dL Creatinine (0.66-1.25) mg/dL Glucose (74-99) mg/dL POC Glucose (mg/dL) 167 H 164 H 143 H (75-99) mg/dL Calcium (8.4-10.2) mg/dL Magnesium (1.6-2.3) mg/dL Total Protein (6.3-8.2) g/dL Albumin (3.5-5.0) g/dL 08/22/18 08/23/18 08/23/18 Range/Units 20:05 00:05 03:45 RBC (4.30-5.90) m/uL Hgb (13.0-17.5) gm/dL Hct (39.0-53.0) % Lymphocytes # (1.0-4.8) k/uL ABG HCO3 (21-25) mmol/L ABG Total CO2 (19-24) mmol/L ABG O2 Saturation (94-97) % Chloride (98-107) mmol/L BUN (9-20) mg/dL Creatinine (0.66-1.25) mg/dL Glucose (74-99) mg/dL POC Glucose (mg/dL) 111 H 182 H 172 H (75-99) mg/dL Calcium (8.4-10.2) mg/dL Magnesium (1.6-2.3) mg/dL Total Protein (6.3-8.2) g/dL Albumin (3.5-5.0) g/dL 08/23/18 08/23/18 08/23/18 Range/Units 04:25 04:25 07:16 RBC 2.51 L (4.30-5.90) m/uL Hgb 7.2 L (13.0-17.5) gm/dL Hct 23.2 L (39.0-53.0) % Lymphocytes # 0.5 L (1.0-4.8) k/uL ABG HCO3 26 H (21-25) mmol/L ABG Total CO2 27 H (19-24) mmol/L ABG O2 Saturation 97.8 H (94-97) % Chloride 110 H (98-107) mmol/L BUN 50 H (9-20) mg/dL Creatinine 1.61 H (0.66-1.25) mg/dL Glucose 177 H (74-99) mg/dL POC Glucose (mg/dL) (75-99) mg/dL Calcium 8.1 L (8.4-10.2) mg/dL Magnesium 2.5 H (1.6-2.3) mg/dL Total Protein 4.9 L (6.3-8.2) g/dL Albumin 2.5 L (3.5-5.0) g/dL Microbiology - Last 24 Hours (Table) 08/21/18 13:23 Acid Fast Bacilli Smear - Final Bronchial Washings - Random Acid Fast Bacilli Culture - Preliminary 08/21/18 10:55 Gram Stain - Preliminary Sputum Sputum Culture - Preliminary 08/21/18 13:23 Gram Stain - Preliminary Bronchial Washings - Random Bronchial Washings Culture - Preliminary - Imaging and Cardiology Chest x-ray: report reviewed, image reviewed Assessment and Plan (1) NSTEMI (non-ST elevated myocardial infarction) Current Visit: Yes Status: Acute Code(s): I21.4 - NON-ST ELEVATION (NSTEMI) MYOCARDIAL INFARCTION SNOMED Code(s): 581708252 (2) CAD (coronary artery disease) Current Visit: Yes Status: Chronic Code(s): I25.10 - ATHSCL HEART DISEASE OF [place] CORONARY ARTERY W/O ANG PCTRS SNOMED Code(s): 73757620 (3) COPD (chronic obstructive pulmonary disease) Current Visit: Yes Status: Chronic Code(s): J44.9 - CHRONIC OBSTRUCTIVE PULMONARY DISEASE, UNSPECIFIED SNOMED Code(s): 67058634 (4) History of nephrectomy Current Visit: Yes Status: Chronic Code(s): Z90.5 - ACQUIRED ABSENCE OF KIDNEY SNOMED Code(s): 06335383903028 (5) History of prostate cancer Current Visit: Yes Status: Chronic Code(s): Z85.46 - PERSONAL HISTORY OF MALIGNANT NEOPLASM OF PROSTATE SNOMED Code(s): 445531067 (6) Hyperlipidemia Current Visit: Yes Status: Chronic Code(s): E78.5 - HYPERLIPIDEMIA, UNSPECIFIED SNOMED Code(s): 30603603 (7) Hypertension Current Visit: Yes Status: Chronic Code(s): I10 - ESSENTIAL (PRIMARY) HYPERTENSION SNOMED Code(s): 21644031 (8) Insulin dependent diabetes mellitus Current Visit: Yes Status: Chronic Code(s): E11.9 - TYPE 2 DIABETES MELLITUS WITHOUT COMPLICATIONS; 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 Continue aspirin, statin, Plavix and beta laurie. Will increase beta laurie therapy as tolerated. 2. Discontinue Dopamine drip. 3. Ventilator management per pulmonology. Continue Zosyn managed by Dr. Almodovar. 4. Increase activity once extubated. PT/OT/cardiac rehab following. 6. Routine PICC line care. 7. Lasix 40 mg IV 1 now. 7. Bronchodilators per pulmonology. 8. Insulin per primary care service. 7. Will monitor daily labs and x-rays. 9. GI prophylaxis with Protonix. DVT prophylaxis with subcu heparin, SCDs. 10. Pain control with current medication regimen. 11. Continue Flomax for BPH. 12. Avoid nephrotoxic agents. 13. Continue backup pacemaker generator AAI at 50. 14. Continue vital high-protein to feedings per OG tube for nutritional support. 15. Bronchoscopy bronchial washing culture results remain pending. 16. More recommendations to follow based on patient's clinical course. Time with Patient: Greater than 30
--- NOTE | 2018-08-23 10:58 | P.PN ---
Subjective Progress Note Date: 08/23/18 This is 73-year-old gentleman with history of bypass surgery. Patient was reintubated because of respiratory difficulties. He seemed to be hemodynamically stable. No arrhythmias are detected. Chest x-ray showed possible right lower lobe infiltrate and bilateral effusions. Patient is on broad-spectrum antibiotics. Most probably,pt had a possible aspiration pneumonia. Apparently patient was confused and agitated prior to the incident. Patient is also diuretics and beta blockers. We'll continue current medical therapy. This patient's clinical status seemed to be stable. He is being taken off the dopamine. His renal function showed a creatinine of 1.6. Patient is still intubated. No weaning attempts at this time. Objective - Vital Signs Vital signs: Vital Signs Temp 100.0 F H 08/23/18 08:00 Pulse 78 08/23/18 09:00 Resp 18 08/23/18 09:00 BP 102/53 08/23/18 07:00 Pulse Ox 99 08/23/18 09:00 Intake & Output 08/22/18 08/23/18 08/23/18 18:59 06:59 18:59 Intake Total 1130.709 801.451 494.036 Output Total 1735 880 290 Balance -604.291 -78.549 204.036 Weight 108.2 kg Intake: IV 344 319.1 142 Dextrose 5% in Water 100 56.1 ml @ 618 mls/hr IV .Q10M PRN with Amiodarone 150 mg Rx#:[id number] Lactated Ringers 1,000 ml 240 180 80 @ 20 mls/hr IV .Q24H [facility] Rx#:[id number] Piperacillin-Tazobactam 3 50 50.0 50 .375 gm In Dextrose/Water 1 50ml.bag @ 12.5 mls/hr IVPB Q8HR [facility] Rx#: [id number] pressure bags 54 33 12 Intake, IV Titration 306.709 242.351 142.036 Amount Norepinephrine 16 mg In 21.984 Sodium Chloride 0.9% 250 ml @ Titrate IV .Q0M [facility] Rx#:[id number] Propofol 1,000 mg In 206.709 220.367 142.036 Empty Bag 1 bag @ Titrate IV .Q0M [facility] Rx#: [id number] Sodium Ferric Gluconat- 100 Sucrose 125 mg In Sodium Chloride 0.9% 100 ml @ 100 mls/hr IVPB DAILY [facility] Rx#:[id number] Tube Feeding 390 150 180 Other 90 90 30 Output: Urine 1735 880 290 Other: Voiding Method Indwelling Catheter Indwelling Catheter # Bowel Movements 1 1 ABP, PAP, CO, CI - Last Documented Arterial Blood Pressure 144/47 Pulmonary Artery Pressure 40/20 Cardiac Output 6.7 Cardiac Index 3.3 - Exam GENERAL EXAM: Patient intubated and sedated HEENT: Normocephalic. Normal reaction of pupils, equal size, normal range of extraocular motion. No erythema or exudates in the throat. NECK: No masses, no nuchal rigidity. CHEST: Postsurgical LUNGS: Diminished breath sounds at bases HEART: S1 and S2 normal with no audible mumurs or gallops. Regular rhythm, femorals equal on both sides.. ABDOMEN: No hepatosplenomegaly, normal bowel sounds, no guarding or rigidity. SKIN: No rashes CENTRAL NERVOUS SYSTEM: Deferred EXTREMITIES: I'll edema - Labs CBC & Chem 7: 08/23/18 04:25 08/23/18 04:25 Labs: Abnormal Lab Results - Last 24 Hours (Table) 08/22/18 08/22/18 08/22/18 Range/Units 12:59 17:03 20:05 RBC (4.30-5.90) m/uL Hgb (13.0-17.5) gm/dL Hct (39.0-53.0) % Lymphocytes # (1.0-4.8) k/uL ABG HCO3 (21-25) mmol/L ABG Total CO2 (19-24) mmol/L ABG O2 Saturation (94-97) % Chloride (98-107) mmol/L BUN (9-20) mg/dL Creatinine (0.66-1.25) mg/dL Glucose (74-99) mg/dL POC Glucose (mg/dL) 164 H 143 H 111 H (75-99) mg/dL Calcium (8.4-10.2) mg/dL Magnesium (1.6-2.3) mg/dL Total Protein (6.3-8.2) g/dL Albumin (3.5-5.0) g/dL 08/23/18 08/23/18 08/23/18 Range/Units 00:05 03:45 04:25 RBC 2.51 L (4.30-5.90) m/uL Hgb 7.2 L (13.0-17.5) gm/dL Hct 23.2 L (39.0-53.0) % Lymphocytes # 0.5 L (1.0-4.8) k/uL ABG HCO3 (21-25) mmol/L ABG Total CO2 (19-24) mmol/L ABG O2 Saturation (94-97) % Chloride (98-107) mmol/L BUN (9-20) mg/dL Creatinine (0.66-1.25) mg/dL Glucose (74-99) mg/dL POC Glucose (mg/dL) 182 H 172 H (75-99) mg/dL Calcium (8.4-10.2) mg/dL Magnesium (1.6-2.3) mg/dL Total Protein (6.3-8.2) g/dL Albumin (3.5-5.0) g/dL 08/23/18 08/23/18 08/23/18 Range/Units 04:25 07:16 08:48 RBC (4.30-5.90) m/uL Hgb (13.0-17.5) gm/dL Hct (39.0-53.0) % Lymphocytes # (1.0-4.8) k/uL ABG HCO3 26 H (21-25) mmol/L ABG Total CO2 27 H (19-24) mmol/L ABG O2 Saturation 97.8 H (94-97) % Chloride 110 H (98-107) mmol/L BUN 50 H (9-20) mg/dL Creatinine 1.61 H (0.66-1.25) mg/dL Glucose 177 H (74-99) mg/dL POC Glucose (mg/dL) 182 H (75-99) mg/dL Calcium 8.1 L (8.4-10.2) mg/dL Magnesium 2.5 H (1.6-2.3) mg/dL Total Protein 4.9 L (6.3-8.2) g/dL Albumin 2.5 L (3.5-5.0) g/dL Microbiology - Last 24 Hours (Table) 08/21/18 10:55 Gram Stain - Final Sputum Sputum Culture - Final 08/21/18 13:23 Acid Fast Bacilli Smear - Final Bronchial Washings - Random Acid Fast Bacilli Culture - Preliminary 08/21/18 13:23 Gram Stain - Preliminary Bronchial Washings - Random Bronchial Washings Culture - Preliminary Assessment and Plan (1) NSTEMI (non-ST elevated myocardial infarction) Current Visit: Yes Status: Acute Code(s): I21.4 - NON-ST ELEVATION (NSTEMI) MYOCARDIAL INFARCTION SNOMED Code(s): 082135577 (2) CAD (coronary artery disease) Current Visit: Yes Status: Chronic Code(s): I25.10 - ATHSCL HEART DISEASE OF [place] CORONARY ARTERY W/O ANG PCTRS SNOMED Code(s): 59411619 (3) COPD (chronic obstructive pulmonary disease) Current Visit: Yes Status: Chronic Code(s): J44.9 - CHRONIC OBSTRUCTIVE PULMONARY DISEASE, UNSPECIFIED SNOMED Code(s): 88877444 (4) Hyperlipidemia Current Visit: Yes Status: Chronic Code(s): E78.5 - HYPERLIPIDEMIA, UNSPECIFIED SNOMED Code(s): 91301814 (5) Hypertension Current Visit: Yes Status: Chronic Code(s): I10 - ESSENTIAL (PRIMARY) HYPERTENSION SNOMED Code(s): 44728141 Plan: We'll continue current management with IV diuretics and antibiotics. Respiratory support. Further recommendations depend upon clinical course. He did Patient is hemodynamically stable. Patient's troponin is being discontinued. Continue IV diuretics and antibiotics in the distal management. No weaning attempts at this time
[2018-08-23] MEDS: LACTATED RINGERS 1,000 ML IV SCH (11:55)
[2018-08-23 12:21] LABS: Glucose,Whole Blood 151 mg/dL (75-99)
--- NOTE | 2018-08-23 12:54 | P.PN ---
Subjective Progress Note Date: 08/23/18 Principal diagnosis: Symptomatic multivessel coronary artery disease, status post CABG. Postoperative day # #6 This is a 73-year-old white male patient of Dr. Joy Reagan, who presented emergency department on 08/13/2018 at 1840 evaluation of chest pain, associated with diaphoresis. The pain was non-radiating, and occurred after eating some spicy soup, patient was belching, and had some nausea. No vomiting. EKG showed some ST and T-wave abnormalities in the inferior, anterior, and lateral leads with T-wave inversion. Troponins were elevated at 0.128, 11.8, 11.8 and 9.270, patient was ruled in for non-ST elevated FL. Patient was placed on IV heparin, aspirin, Coreg, nitroglycerin and he underwent cardiac catheterization this afternoon with Dr. ALISHA Harper which showed a distal lesion of the left main of 70% before bifurcation into LAD and circumflex with calcification, 60% narrowing in the LAD at the origin of the first diagonal branch, 70% stenosis in the LAD at the origin of the second diagonal branch with probable thrombus, first obtuse marginal with 80-90% stenosis proximally, and 60% narrowing in the circumflex after the first obtuse marginal, total occlusion of the proximal RCA with some collateral circulation from the left system to the right. Patient has past medical history of coronary artery disease, COPD, diabetes mellitus type 2, hypertension, previous nicotine dependence, history of right nephrectomy in 1969 and chronic kidney disease. Patient was recommended to undergo coronary revascularization and cardiothoracic surgery has been consulted. We are seeing this patient for pulmonary evaluation. On 08/15/2018, the patient has no specific complaints. He is not having any chest pain. Resting comfortably in bed. Bedside spirometry was noted and there is no significant obstructive airway limitation. Chest x-ray was reviewed and showed some elevation of the right hemidiaphragm. Otherwise there is some subsegmental atelectatic changes in the lung bases. He is an ex- smoker. He is an obese male patient with a BMI of 39.0. No previous history of DVT or pulmonary embolism. No home O2. He is an ex-smoker. Overall performance status is good. On 08/16/2018 patient seen in follow-up on selective care unit. He sitting up on bed, in no acute distress, denies any shortness of breath. No chest pain, he is on heparin drip. Room air pulse ox is 94%, vital signs are stable. Lung sounds are clear. Patient is possibly scheduled for surgical revascularization surgery on 08/17/2018. No acute complaints overnight. Sinus rhythm. On 08/17/2018 patient seen in follow-up in the intensive care unit, he is status post three-vessel coronary artery bypass grafting, with CHAHAL to LAD, SVG to the PDA, and circumflex. Patient is currently sedated, intubated, on mechanical ventilator, and current vent settings are SIMV mode with a rate of 12 , tidal volume 500, FiO2 of 50% and PEEP of 10. IV drips include LR at a rate of 40, levothyroid at a rate of 10 mics per minute, Primacor is at 0.2 mics per kilo per minute, Precedex is at 0.2 mics per kilo per hour. Patient received 1500 of crystalloids and 1500 mL of 5% albumin, in addition to Cell Saver. [place] -Eliazar catheter is in place, with PA pressures of 50/32, CVP of 25, cardiac output of 7.3, and cardiac index of 3.6. Patient has 2 mediastinal chest tubes and left pleural chest tubes with small amount of sanguinous output. AV epicardial wires are in place, patient is currently being paced at her mode of AAI with a rate of 80 BPM. The blood work showed WBC of 8.6, hemoglobin of 8.5 , INR 1.2, sodium of 140, potassium is 4.8, chloride is 110, BUN of 21, creatinine is 1.09. Blood gas showed pO2 of 79, pCO2 of 53, pH of 7.25. Vent settings were adjusted, and rate was increased to IMV with a rate of 18 breaths per minute. Suero catheter is in place, and patient is producing 30-50 ML per hour. Reevaluated today on 08/18/2018, patient was extubated last night uneventfully. Presently on nasal cannula, in no form of distress. However he is on 8 L high flow nasal cannula. Hemodynamically stable, on Primacor and low dose levo fed. Patient is relatively asymptomatic, chest x-ray is reassuring. Hemoglobin today is 7.9. BUN is 24 creatinine is 1.42, slightly worse compared to yesterday. Reevaluated today on 08/19/2018, patient developed significant amount of agitation and restlessness last night, placed on Precedex, and now he is on BiPAP. Blood pressure is a bit marginal. His urine output was marginal earlier today, and he received Lasix. He was also placed on 11 proximal for blood pressure control. Presently on BiPAP, seems to be at confused, agitated when aroused, ABG is reasonable with a pO2 of 104 pCO2 of 36 pH of 7.36 this morning. Chest x-ray showed mostly mediastinal widening, likely projectional, otherwise no significant abnormality noted. No evidence of congestive heart failure, minimal asymmetry or atelectasis is noted. Reevaluated today on 08/20/2018, remains on BiPAP, did not tolerate high flow nasal cannula, desaturated down significantly, but was much better on BiPAP. ABG on 50% BiPAP showed a pO2 of 141 pCO2 of 38 pH of 7.41. Patient is off Precedex today, hence I recommended Ativan 0.5 up to 1 mg every 2 hours as needed, I have also started the patient on Seroquel. And he 5 mg by mouth twice a day. Chest x-ray is suggestive of good sized right-sided pleural effusion and possible right lower lobe atelectasis, ultrasound was ordered, and if the fluid is large enough may consider even thoracentesis. CBC was reviewed hemoglobin is 7.6 today WBC count is 6.6. Electrolytes were reviewed to be normal, renal functioning is improving again BUN is 41 creatinine 1.40 it was 1.60 yesterday On 08/21/2018, patient was reevaluated, and apparently last night he had another episode of extreme agitation, patient was extremely restless, pulling all his tubes and lines, did not respond to Ativan and Haldol, hence I was notified about this patient, and I recommended intubation and mechanical ventilation and placing the patient on propofol. Patient is now on mechanical ventilation, and his ventilator settings are tidal volume of 500 assist control rate of 16 FiO2 is 60% PEEP of 8. ABG this morning showed a pO2 of 82 pCO2 of 40 pH of 7.36. CBC is relatively unremarkable. BUN is 55 creatinine is 1.63. Chest x-ray is showing some significant volume loss in the right lower lobe and possibly right middle lobe, Estrace therapy is suctioning significant amount of thick purulent secretions from the endotracheal tube, hence I believe the patient may have some component of the mucous plugging in the right mainstem bronchus or right middle lobe and right lower lobe. Hence I plan to arrange for bronchoscopy and evaluation of the right lower lobe and right middle lobe. In the meantime I will start the patient empirically on Zosyn. Considering his mental status and his agitation, patient could have had some component of aspiration, but we'll proceed with bronchoscopy and lavage of the right lung, and we will address that accordingly. No plans to wean or extubated the patient at this point, Reevaluated today on 08/22/2018, patient remains on mechanical ventilation, calm , on propofol drip, ventilator settings were noted, ABG was noted. And left unchanged. PO2 is 80 pCO2 of 41 pH of 7.39. CBC showed a hemoglobin of 7.4, relatively stable. Basic metabolic profile is normal. Creatinine is improved compared to yesterday, down to 1.59 compared to 1.63 yesterday. Patient is receiving nutritional support, enteral feeding, not requiring any pressors at this point. Reevaluated today on 08/23/2018, remains on mechanical ventilation, no change in his vent settings, he remains on tidal volume of 500 assist control rate of 16 FiO2 of 50% and PEEP of 5.ABG showed a pO2 of 89 pCO2 of 41 pH of 7.41.renal profile is about the same BUN of 50 creatinine 1.61.hemoglobin is about the same at 7.2. Chest x-rayshowed slightly improved aeration of the right lower lobe and right middle lobe. Bronchial washing so far are negative no organisms seen, many polymorphonuclear leukocytes were noted.patient remains on propofol drip, I plan to wake him up today and assess mental status. Doubt that the patient could be extubated today. My main concern is his mental status, and the fact he may wake up extremely agitated as he did before.propofol is presently at 55 mcg/kg/m. He is off norepinephrine. And he is hemodynamically stable. PICC line remains in place from 08/21/2018 Objective - Vital Signs Vital signs: Vital Signs Temp 99 F 08/23/18 12:00 Pulse 84 08/23/18 12:00 Resp 18 08/23/18 12:00 BP 102/53 08/23/18 07:00 Pulse Ox 100 08/23/18 12:00 Intake & Output 08/22/18 08/23/18 08/23/18 18:59 06:59 18:59 Intake Total 1130.709 801.451 530.526 Output Total 1735 880 290 Balance -604.291 -78.549 240.526 Weight 108.2 kg 109.2 kg Intake: IV 344 319.1 142 Dextrose 5% in Water 100 56.1 ml @ 618 mls/hr IV .Q10M PRN with Amiodarone 150 mg Rx#:[id number] Lactated Ringers 1,000 ml 240 180 80 @ 20 mls/hr IV .Q24H ALEXEY Rx#:[id number] Piperacillin-Tazobactam 3 50 50.0 50 .375 gm In Dextrose/Water 1 50ml.bag @ 12.5 mls/hr IVPB Q8HR ALEXEY Rx#: [id number] pressure bags 54 33 12 Intake, IV Titration 306.709 242.351 148.526 Amount Norepinephrine 16 mg In 21.984 Sodium Chloride 0.9% 250 ml @ Titrate IV .Q0M ALEXEY Rx#:[id number] Propofol 1,000 mg In 206.709 220.367 148.526 Empty Bag 1 bag @ Titrate IV .Q0M ALEXEY Rx#: [id number] Sodium Ferric Gluconat- 100 Sucrose 125 mg In Sodium Chloride 0.9% 100 ml @ 100 mls/hr IVPB DAILY ALEXEY Rx#:[id number] Tube Feeding 390 150 210 Other 90 90 30 Output: Urine 1735 880 290 Other: Voiding Method Indwelling Catheter Indwelling Catheter Indwelling Catheter # Bowel Movements 1 1 ABP, PAP, CO, CI - Last Documented Arterial Blood Pressure 134/44 Pulmonary Artery Pressure 40/20 Cardiac Output 6.7 Cardiac Index 3.3 - Exam Physical Exam: Revealed a 73-year-old white male,on propofol, sedated, on mechanical ventilation. Head: Atraumatic, normocephalic.endotracheal tube and orogastric tube are noted to be intact. HEENT: PERRLA, EOMI, no icterus. No JVD, no thyromegaly.no icterus. Chest: good breath sound bilaterally, no rhonchi or wheezes. Cardiac Exam: S1, S2 present. Regular rate and rhythm, atrial paced on telemetry with underlying sinus rhythm with a rate in the 60s. A/V epicardial pacemaker wires present, connected to generator, AAI mode Palpable peripheral pulses bilaterally. Trace generalized edema present. No calf pain or tenderness noted. Abdomen: [obese,No megaly no rebound, positive bowel sounds, Extremities: Good perfusion, good pulses, and Hiren bandages noted in lower extremities bilaterally. Neurological Exam: Sedated, on propofol, could not assess the neurological status today. psychiatric: Cannot be assessed remains on propofol however will likely hold propofol and assess mental status today. - Labs CBC & Chem 7: 08/23/18 04:25 08/23/18 04:25 Labs: Abnormal Lab Results - Last 24 Hours (Table) 08/22/18 08/22/18 08/22/18 Range/Units 12:59 17:03 20:05 RBC (4.30-5.90) m/uL Hgb (13.0-17.5) gm/dL Hct (39.0-53.0) % Lymphocytes # (1.0-4.8) k/uL ABG HCO3 (21-25) mmol/L ABG Total CO2 (19-24) mmol/L ABG O2 Saturation (94-97) % Chloride (98-107) mmol/L BUN (9-20) mg/dL Creatinine (0.66-1.25) mg/dL Glucose (74-99) mg/dL POC Glucose (mg/dL) 164 H 143 H 111 H (75-99) mg/dL Calcium (8.4-10.2) mg/dL Magnesium (1.6-2.3) mg/dL Total Protein (6.3-8.2) g/dL Albumin (3.5-5.0) g/dL 08/23/18 08/23/18 08/23/18 Range/Units 00:05 03:45 04:25 RBC 2.51 L (4.30-5.90) m/uL Hgb 7.2 L (13.0-17.5) gm/dL Hct 23.2 L (39.0-53.0) % Lymphocytes # 0.5 L (1.0-4.8) k/uL ABG HCO3 (21-25) mmol/L ABG Total CO2 (19-24) mmol/L ABG O2 Saturation (94-97) % Chloride (98-107) mmol/L BUN (9-20) mg/dL Creatinine (0.66-1.25) mg/dL Glucose (74-99) mg/dL POC Glucose (mg/dL) 182 H 172 H (75-99) mg/dL Calcium (8.4-10.2) mg/dL Magnesium (1.6-2.3) mg/dL Total Protein (6.3-8.2) g/dL Albumin (3.5-5.0) g/dL 08/23/18 08/23/18 08/23/18 Range/Units 04:25 07:16 08:48 RBC (4.30-5.90) m/uL Hgb (13.0-17.5) gm/dL Hct (39.0-53.0) % Lymphocytes # (1.0-4.8) k/uL ABG HCO3 26 H (21-25) mmol/L ABG Total CO2 27 H (19-24) mmol/L ABG O2 Saturation 97.8 H (94-97) % Chloride 110 H (98-107) mmol/L BUN 50 H (9-20) mg/dL Creatinine 1.61 H (0.66-1.25) mg/dL Glucose 177 H (74-99) mg/dL POC Glucose (mg/dL) 182 H (75-99) mg/dL Calcium 8.1 L (8.4-10.2) mg/dL Magnesium 2.5 H (1.6-2.3) mg/dL Total Protein 4.9 L (6.3-8.2) g/dL Albumin 2.5 L (3.5-5.0) g/dL 08/23/18 Range/Units 12:17 RBC (4.30-5.90) m/uL Hgb (13.0-17.5) gm/dL Hct (39.0-53.0) % Lymphocytes # (1.0-4.8) k/uL ABG HCO3 (21-25) mmol/L ABG Total CO2 (19-24) mmol/L ABG O2 Saturation (94-97) % Chloride (98-107) mmol/L BUN (9-20) mg/dL Creatinine (0.66-1.25) mg/dL Glucose (74-99) mg/dL POC Glucose (mg/dL) 151 H (75-99) mg/dL Calcium (8.4-10.2) mg/dL Magnesium (1.6-2.3) mg/dL Total Protein (6.3-8.2) g/dL Albumin (3.5-5.0) g/dL Microbiology - Last 24 Hours (Table) 08/21/18 13:23 Gram Stain - Preliminary Bronchial Washings - Random Bronchial Washings Culture - Preliminary 08/21/18 10:55 Gram Stain - Final Sputum Sputum Culture - Final 08/21/18 13:23 Acid Fast Bacilli Smear - Final Bronchial Washings - Random Acid Fast Bacilli Culture - Preliminary Assessment and Plan Assessment: Impression: 1 status post CABG for coronary artery disease, postoperative day #6 2 postoperative ICU psychosis and delirium requiring reintubation on 08/20/2018, patient remains on mechanical ventilation today on 08/23/2018, however plan to interrupt his sedation and assessment of status and see if we could even proceed to weaning parameters and weaning trial with pressure support and CPAP. 3 acute ICU psychosis and delirium with acute hypoxic respiratory failure requiring intubation. patient was treated with Ativan, Haldol, and he was also placed on Precedex, eventually required reintubation. 4 suspect right lower lobe collapse, underwent a bronchoscopy on 08/21/2018, mucous plugs were removed. bronchial cultures not diagnostic, final report is pending, continue antibiotics empirically in the meantime in the form of Zosyn. 5 type 2 diabetes, requiring insulin. 6 intermittent episodes of psychosis and delirium since his surgery. Unexpected. 7 multiple comorbidities including COPD, tobacco dependence in remission, prostate cancer, hyperlipidemia, benign essential hypertension, and previous nephrectomy. Recommendation: Continue ventilatory support, hemodynamic support, nutritional support, GI and DVT prophylaxis, antibiotics, and daily assessment of mental status and weaning trials of possible, overall prognosis remains very poor and guarded, patient is still critically ill, and I would not bee surprised if the patient will eventually require tracheostomy.critical care time is 35 minutes. Time with Patient: Greater than 30
--- NOTE | 2018-08-23 13:43 | P.PN ---
Subjective Progress Note Date: 08/23/18 This is a 73-year-old male, patient of [facility]. He has a known past medical history of hypertension, diabetes mellitus, COPD, right nephrectomy 1970 and former smoker. Patient presents to the emergency room with complaints of chest pain with pressure and heaviness and diaphoresis. Symptoms had started yesterday. Patient was diagnosed with a non-ST elevated [place]. Initial troponin 0.128 then 11.6 and 11.8. Patient was started on IV heparin cardiology was consulted. And patient underwent heart catheterization today. The heart catheterization shows total occlusion of the right coronary artery. Left main is 70-75% stenosed. The left anterior descending coronary artery has a mid lesion of 70% with thrombus. Obtuse marginal had 80-85% stenosis. Cardiology is recommending open-heart surgery. That her surgery has been consulted. They have already evaluated patient and surgery we'll possibly be on Friday. Pulmonary service has also been consulted. Patient is receiving IV fluids. He was slightly dehydrated on admission creatinine was 1.44. Unclear baseline creatinine. Creatinine in March 2018 was 1.3. Patient currently is chest pain-free. He reports that symptoms started after eating spicy soup and when he came back home he belched a large amount of gas and is relieved the pressure. He has been chest pain-free. Cardiology has placed him on IV heparin and Aggrastat. On 08/15/2018 patient was seen and examined he is alert and oriented 3 in no apparent distress he is sitting at the edge of the bed and he denies any chest pain there is no shortness of breath at rest he has occasional cough no palpitation no nausea or vomiting no abdominal pain no diarrhea no constipation no burning with urination no frequency or urgency and no hematuria. On 08/16/2018 patient was seen and examined on the telemetry floor he is alert and oriented 3 in no distress he denies any new episodes of chest pain he denies any other symptoms there is no fever or chills no headache or dizziness no shortness of breath no cough no nausea or vomiting no abdominal pain no diarrhea no burning was urination no frequency or urgency and no hematuria On 08/17/2018 Patient had coronary artery bypass graft [address] Hannah today. Patient currently intubated and on sedation. Patient remains in the intensive care unit. Patient currently on levophed for pressure support. On 08/18/2018 patient is currently postop day 1 and coronary artery bypass graft surgery. Patient is currently up in chair. Patient was extubated throughout night. Precedex drip has been DC'd per cardiovascular team. Patient remains sleepy but alert and arousable. At this time patient denies shortness of breath. Denies nausea vomiting or diarrhea. Denies any urinary burning. On 08/19/2018 patient is currently postop day 2 from coronary artery bypass graft. Per nursing staff patient is confused. Patient is also requiring BiPAP to maintain adequate oxygenation. Discussed case with Luna from the cardiovascular surgical team. Patient remains on Precedex drip. safety sitting at bedside. On 08/20/2018 patient is currently postop day 2 from coronary artery bypass graft. Patient remains on BiPAP for adequate oxygen. Precedex drip has been DC 'd. Patient does seem more alert. Patient followed closely by cardiovascular surgical team and critical care On 08/21/2018 patient got reintubated last night due to agitation and hypoxia. Patient is currently on propofol for sedation. Patient also started on Levophed for pressure support. Critical care team following closely. On 08/22/2018 patient got reintubated due to agitation and hypoxia. Patient is currently on propofol for sedation. Patient also started on Levophed for pressure support. Critical care team following closely. On 08/23/2018 patient is intubated sedated maintained on mechanical ventilation , he had a sedation holiday for about 1 hour at that time he was following commands. At this time he is back on sedation urine output is adequate. Hemoglobin is down to 7.2 Objective - Vital Signs Vital signs: Vital Signs Temp 99 F 08/23/18 12:00 Pulse 84 08/23/18 12:00 Resp 18 08/23/18 12:00 BP 102/53 08/23/18 07:00 Pulse Ox 100 08/23/18 12:00 Intake & Output 08/22/18 08/23/18 08/23/18 18:59 06:59 18:59 Intake Total 1130.709 801.451 768.996 Output Total 1735 880 490 Balance -604.291 -78.549 278.996 Weight 108.2 kg 109.2 kg Intake: IV 344 319.1 211 Dextrose 5% in Water 100 56.1 ml @ 618 mls/hr IV .Q10M PRN with Amiodarone 150 mg Rx#:[id number] Lactated Ringers 1,000 ml 240 180 140 @ 20 mls/hr IV .Q24H [facility] Rx#:[id number] Piperacillin-Tazobactam 3 50 50.0 50 .375 gm In Dextrose/Water 1 50ml.bag @ 12.5 mls/hr IVPB Q8HR [facility] Rx#: [id number] pressure bags 54 33 21 Intake, IV Titration 306.709 242.351 167.996 Amount Norepinephrine 16 mg In 21.984 Sodium Chloride 0.9% 250 ml @ Titrate IV .Q0M [facility] Rx#:[id number] Propofol 1,000 mg In 206.709 220.367 167.996 Empty Bag 1 bag @ Titrate IV .Q0M [facility] Rx#: [id number] Sodium Ferric Gluconat- 100 Sucrose 125 mg In Sodium Chloride 0.9% 100 ml @ 100 mls/hr IVPB DAILY [facility] Rx#:[id number] Tube Feeding 390 150 330 Other 90 90 60 Output: Urine 1735 880 490 Other: Voiding Method Indwelling Catheter Indwelling Catheter Indwelling Catheter # Bowel Movements 1 1 ABP, PAP, CO, CI - Last Documented Arterial Blood Pressure 134/44 Pulmonary Artery Pressure 40/20 Cardiac Output 6.7 Cardiac Index 3.3 - Exam Patient is intubated sedated maintained on mechanical ventilation Head normocephalic and atraumatic Neck supple no JVD no goiter Lungs patient currently intubated Heart regular rate and rhythm S1-S2, no rub or gallop Abdomen is soft nontender nondistended positive bowel sounds no hepatosplenomegaly Extremities no edema no cyanosis or clubbing - Labs CBC & Chem 7: 08/23/18 04:25 08/23/18 04:25 Labs: Abnormal Lab Results - Last 24 Hours (Table) 08/22/18 08/22/18 08/23/18 Range/Units 17:03 20:05 00:05 RBC (4.30-5.90) m/uL Hgb (13.0-17.5) gm/dL Hct (39.0-53.0) % Lymphocytes # (1.0-4.8) k/uL ABG HCO3 (21-25) mmol/L ABG Total CO2 (19-24) mmol/L ABG O2 Saturation (94-97) % Chloride (98-107) mmol/L BUN (9-20) mg/dL Creatinine (0.66-1.25) mg/dL Glucose (74-99) mg/dL POC Glucose (mg/dL) 143 H 111 H 182 H (75-99) mg/dL Calcium (8.4-10.2) mg/dL Magnesium (1.6-2.3) mg/dL Total Protein (6.3-8.2) g/dL Albumin (3.5-5.0) g/dL 08/23/18 08/23/18 08/23/18 Range/Units 03:45 04:25 04:25 RBC 2.51 L (4.30-5.90) m/uL Hgb 7.2 L (13.0-17.5) gm/dL Hct 23.2 L (39.0-53.0) % Lymphocytes # 0.5 L (1.0-4.8) k/uL ABG HCO3 (21-25) mmol/L ABG Total CO2 (19-24) mmol/L ABG O2 Saturation (94-97) % Chloride 110 H (98-107) mmol/L BUN 50 H (9-20) mg/dL Creatinine 1.61 H (0.66-1.25) mg/dL Glucose 177 H (74-99) mg/dL POC Glucose (mg/dL) 172 H (75-99) mg/dL Calcium 8.1 L (8.4-10.2) mg/dL Magnesium 2.5 H (1.6-2.3) mg/dL Total Protein 4.9 L (6.3-8.2) g/dL Albumin 2.5 L (3.5-5.0) g/dL 08/23/18 08/23/18 08/23/18 Range/Units 07:16 08:48 12:17 RBC (4.30-5.90) m/uL Hgb (13.0-17.5) gm/dL Hct (39.0-53.0) % Lymphocytes # (1.0-4.8) k/uL ABG HCO3 26 H (21-25) mmol/L ABG Total CO2 27 H (19-24) mmol/L ABG O2 Saturation 97.8 H (94-97) % Chloride (98-107) mmol/L BUN (9-20) mg/dL Creatinine (0.66-1.25) mg/dL Glucose (74-99) mg/dL POC Glucose (mg/dL) 182 H 151 H (75-99) mg/dL Calcium (8.4-10.2) mg/dL Magnesium (1.6-2.3) mg/dL Total Protein (6.3-8.2) g/dL Albumin (3.5-5.0) g/dL Microbiology - Last 24 Hours (Table) 08/21/18 13:23 Gram Stain - Preliminary Bronchial Washings - Random Bronchial Washings Culture - Preliminary 08/21/18 10:55 Gram Stain - Final Sputum Sputum Culture - Final 08/21/18 13:23 Acid Fast Bacilli Smear - Final Bronchial Washings - Random Acid Fast Bacilli Culture - Preliminary Assessment and Plan Plan: 1. Status post coronary artery bypass graft [address] Hannah postop day 4. The CHAHAL to LAD, SVG to PDA and Circ. Patient currently intubated and on sedation. Cardiovascular team and critical care team following closely. Patient currently up in chair. Patient has been extubated throughout night. hemoglobin 7.9. Discussed case with Luna per cardiovascular surgical team 2-D echo has been ordered due to diminished heart sounds. Hemoglobin 7.3. On 08/20 Patieht required reintubation due to extreme agitation and hypoxia. Critical care team following closely. PICC line placement ordered per cardiovascular surgery 2. Acute respiratory failure. Patient required reintubation last night 08/20. Chest x-ray completed showing right pleural effusion and bilateral lower lobe pulmonary infiltrates. There is probably mild heart failure. Endotracheal tube is in good position. Heart and lungs appear unchanged. Chest ultrasound completed showing small to tiny bilateral pleural effusions. Per pulmonary team No thoracentesis at this time. Per pulmonary services bronchoscopy today. 3. Acute Non-ST elevated myocardial infarction: Heart catheterization showing multivessel coronary artery disease with thrombus in the LAD. Patient has been seen by vascular surgery and planning for open heart surgery on Friday. Continue IV heparin and Aggrastat per cardiology. Continue with IV fluids. Pulmonary service also consulted for preop clearance. 4. Acute kidney injury: Unclear patient has chronic kidney disease. Creatinine in March 2018 was 1.3. Continue with IV fluid hydration. Creatinine 1.42. Continue to monitor closely. Creatinine continued to increase to 1.60. Discussed case with Luna gardner from cardiovascular surgery will continue to monitor closely at this point. Creatinine improving to 1.40 and bun 41. Nephrology services consulted. 5. Essential hypertension 6. Diabetes mellitus insulin-dependent. Hemoglobin A1c 7.9. Patient on sliding scale insulin 7. History of COPD: No evidence of exacerbation. continue albuterol nebulizer as needed 8. BPH continue Flomax 9. Atelectasis noted on chest x-ray order incentive spirometer 10. Obesity BMI 39.4 kg 11. Possible acute ICU psychosis and delirium. Patient remains on Precedex. Critical care team following closely. On 08/20 patient required reintubation. Patient currently on Diprivan for sedation DVT prophylaxis heparin and GI prophylaxis Protonix
[2018-08-23] MEDS: CLEVIDIPINE BUTYRATE 25 MG in EMPTY BAG 1 BAG IV SCH (16:00)
[2018-08-23 16:49] LABS: Glucose,Whole Blood 198 mg/dL (75-99)
[2018-08-23] MEDS: SENNOSIDES-DOCUSATE SODIUM 1 EACH TAB PO SCH (20:07)
[2018-08-23] MEDS: TAMSULOSIN 0.4 MG CAP.ER.24H PO SCH (20:07)
[2018-08-23 20:16] LABS: Glucose,Whole Blood 175 mg/dL (75-99)
[2018-08-23 23:47] LABS: Glucose,Whole Blood 204 mg/dL (75-99)
[2018-08-24] MEDS: PROPOFOL 1,000 MG in EMPTY BAG 1 BAG IV SCH ×3 (00:20→07:00)
[2018-08-24 03:56] LABS: Glucose,Whole Blood 192 mg/dL (75-99)
[2018-08-24] MEDS: INSULIN ASPART 100 UNIT/ML 1 ML 10 ML VIAL SQ SCH ×5 (04:03→21:22)
[2018-08-24 04:08] LABS: Basophils % (A) 0 %; Eosinophils # (A) 0.2 k/uL (0-0.7); Eosinophils % (A) 3 %; HCT 22.6 % (39.0-53.0); HGB 7.1 gm/dL (13.0-17.5); Hypochromasia Moderate; Lymphocytes # (A) 0.3 k/uL (1.0-4.8); Lymphocytes % (A) 6 %; MCH 29.3 pg (25.0-35.0); MCHC 31.6 g/dL (31.0-37.0); MCV 92.7 fL (80.0-100.0); Mean Platelet Volume 9.2; Monocytes # (A) 0.3 k/uL (0-1.0); Monocytes % (A) 6 %; Neutrophils # (A) 4.8 k/uL (1.3-7.7); Neutrophils % (A) 84 %; Platelet Count 186 k/uL (150-450); RBC 2.44 m/uL (4.30-5.90); RDW 15.6 % (11.5-15.5); WBC 5.7 k/uL (3.8-10.6)
[2018-08-24 04:15] LABS: Albumin 2.6 g/dL (3.5-5.0); Calcium 8.2 mg/dL (8.4-10.2); Magnesium 2.4 mg/dL (1.6-2.3); Potassium 4.5 mmol/L (3.5-5.1); Total Bilirubin 0.6 mg/dL (0.2-1.3); Total Protein 5.1 g/dL (6.3-8.2)
[2018-08-24 05:12] LABS: ABG Base Excess 2.4 mmol/L; ABG HCO3 27 mmol/L (21-25); ABG Oxygen Saturation 98.6 % (94-97); ABG PCO2 40 mmHg (35-45); ABG PH 7.43 (7.35-7.45); ABG PO2 102 mmHg (83-108); ABG TCO2 28 mmol/L (19-24)
[2018-08-24 07:45] LABS: Glucose,Whole Blood 189 mg/dL (75-99)
--- NOTE | 2018-08-24 07:50 | XR ---
EXAMINATION TYPE: XR chest 1V portable DATE OF EXAM: 08/24/2018 CLINICAL HISTORY: Difficulty breathing progress study. Post open cardiac surgery. TECHNIQUE: Single AP portable upright view of the chest is obtained. COMPARISON: Chest x-ray from one day earlier and older studies. FINDINGS: An endotracheal tube, orogastric tube, and left-sided PICC line are all stable in appearan ce. Overlying sternal wires and mediastinal clips are redemonstrated. There is diminished inspiration on current study. There are persistent small right greater than left bilateral pleural effusions with associated right basilar atelectasis and/or infiltrate. Cardiac silh ouette size is stable and enlarged. Osseous structures are intact. IMPRESSION: Diminished inspiration on current study with persistent mild cardiomegaly and small bilat eral pleural effusions and right basilar atelectasis and/or infiltrate all redemonstrated.
[2018-08-24] MEDS: IPRATROPIUM-ALBUTEROL 3 ML NEB INHALATION SCH ×4 (08:04→20:12)
[2018-08-24] MEDS ORDERED: FUROSEMIDE 10 MG/ML 4 ML VIAL IV STA (08:28)
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
[2018-08-24] MEDS: ASCORBIC ACID 500 MG TAB PO SCH ×2 (08:54→16:12)
[2018-08-24] MEDS: HEPARIN SODIUM,PORCINE 5,000 UNIT/ML 1 ML VIAL SQ SCH ×2 (08:54→16:16)
[2018-08-24] MEDS: FERROUS SULFATE ORAL ELIXIR 300 MG/5 ML CUP PO SCH ×2 (08:54→16:11)
[2018-08-24] MEDS: CHLORHEXIDINE GLUCONATE 15 ML CUP MUCOUS MEM SCH ×2 (08:55→21:40)
[2018-08-24] MEDS: ASPIRIN 325 MG TAB PO SCH (08:55)
[2018-08-24] MEDS: ATORVASTATIN 40 MG TAB PO SCH (08:55)
[2018-08-24] MEDS: QUEtiapine 50 MG TAB PO SCH ×2 (08:56→21:48)
[2018-08-24] MEDS: CLOPIDOGREL 75 MG TAB PO SCH (08:56)
[2018-08-24] MEDS: METOPROLOL TARTRATE 12.5 MG TAB PO SCH ×2 (08:56→21:48)
[2018-08-24] MEDS: PANTOPRAZOLE 40 MG/10 ML VIAL IVP SCH (08:56)
[2018-08-24] MEDS: PIPERACILLIN-TAZOBACTAM 3.375 GM in DEXTROSE/WATER 1 50ML.BAG IVPB SCH ×2 (09:26→16:11)
--- NOTE | 2018-08-24 10:08 | P.PN ---
Subjective Progress Note Date: 08/24/18 This is a 73-year-old male, patient of [facility]. He has a known past medical history of hypertension, diabetes mellitus, COPD, right nephrectomy 1970 and former smoker. Patient presents to the emergency room with complaints of chest pain with pressure and heaviness and diaphoresis. Symptoms had started yesterday. Patient was diagnosed with a non-ST elevated CT. Initial troponin 0.128 then 11.6 and 11.8. Patient was started on IV heparin cardiology was consulted. And patient underwent heart catheterization today. The heart catheterization shows total occlusion of the right coronary artery. Left main is 70-75% stenosed. The left anterior descending coronary artery has a mid lesion of 70% with thrombus. Obtuse marginal had 80-85% stenosis. Cardiology is recommending open-heart surgery. That her surgery has been consulted. They have already evaluated patient and surgery we'll possibly be on Friday. Pulmonary service has also been consulted. Patient is receiving IV fluids. He was slightly dehydrated on admission creatinine was 1.44. Unclear baseline creatinine. Creatinine in March 2018 was 1.3. Patient currently is chest pain-free. He reports that symptoms started after eating spicy soup and when he came back home he belched a large amount of gas and is relieved the pressure. He has been chest pain-free. Cardiology has placed him on IV heparin and Aggrastat. On 08/15/2018 patient was seen and examined he is alert and oriented 3 in no apparent distress he is sitting at the edge of the bed and he denies any chest pain there is no shortness of breath at rest he has occasional cough no palpitation no nausea or vomiting no abdominal pain no diarrhea no constipation no burning with urination no frequency or urgency and no hematuria. On 08/16/2018 patient was seen and examined on the telemetry floor he is alert and oriented 3 in no distress he denies any new episodes of chest pain he denies any other symptoms there is no fever or chills no headache or dizziness no shortness of breath no cough no nausea or vomiting no abdominal pain no diarrhea no burning was urination no frequency or urgency and no hematuria On 08/17/2018 Patient had coronary artery bypass graft [address] Hannah today. Patient currently intubated and on sedation. Patient remains in the intensive care unit. Patient currently on levophed for pressure support. On 08/18/2018 patient is currently postop day 1 and coronary artery bypass graft surgery. Patient is currently up in chair. Patient was extubated throughout night. Precedex drip has been DC'd per cardiovascular team. Patient remains sleepy but alert and arousable. At this time patient denies shortness of breath. Denies nausea vomiting or diarrhea. Denies any urinary burning. On 08/19/2018 patient is currently postop day 2 from coronary artery bypass graft. Per nursing staff patient is confused. Patient is also requiring BiPAP to maintain adequate oxygenation. Discussed case with Luna from the cardiovascular surgical team. Patient remains on Precedex drip. safety sitting at bedside. On 08/20/2018 patient is currently postop day 2 from coronary artery bypass graft. Patient remains on BiPAP for adequate oxygen. Precedex drip has been DC 'd. Patient does seem more alert. Patient followed closely by cardiovascular surgical team and critical care On 08/21/2018 patient got reintubated last night due to agitation and hypoxia. Patient is currently on propofol for sedation. Patient also started on Levophed for pressure support. Critical care team following closely. On 08/22/2018 patient got reintubated due to agitation and hypoxia. Patient is currently on propofol for sedation. Patient also started on Levophed for pressure support. Critical care team following closely. On 08/23/2018 patient is intubated sedated maintained on mechanical ventilation , he had a sedation holiday for about 1 hour at that time he was following commands. At this time he is back on sedation urine output is adequate. Hemoglobin is down to 7.2 On 08/24/2018 patient remains intubated on mechanical ventilation in the intensive care unit. Per nursing staff patient becomes agitated during sedation holidays. Hemoglobin decreasing to 7.1. Sedation holiday will be attempted again today. Objective - Vital Signs Vital signs: Vital Signs Temp 98.8 F 08/24/18 09:00 Pulse 77 08/24/18 09:00 Resp 24 08/24/18 09:00 BP 102/53 08/23/18 07:00 Pulse Ox 100 08/24/18 09:00 Intake & Output 08/23/18 08/24/18 08/24/18 18:59 06:59 18:59 Intake Total 9409.290 9256.562 325.517 Output Total 2065 805 165 Balance -738.004 322.562 160.517 Weight 109.2 kg 107.8 kg Intake: IV 399 328.0 146 Lactated Ringers 1,000 ml 260 220 140 @ 20 mls/hr IV .Q24H [facility] Rx#:[id number] Piperacillin-Tazobactam 3 100 75.0 .375 gm In Dextrose/Water 1 50ml.bag @ 12.5 mls/hr IVPB Q8HR [facility] Rx#: [id number] pressure bags 39 33 6 Intake, IV Titration 267.996 289.562 89.517 Amount Propofol 1,000 mg In 267.996 289.562 89.517 Empty Bag 1 bag @ Titrate IV .Q0M [facility] Rx#: [id number] Tube Feeding 570 420 90 Other 90 90 Output: Urine 2065 805 165 Other: Voiding Method Indwelling Catheter Indwelling Catheter # Bowel Movements 1 1 1 ABP, PAP, CO, CI - Last Documented Arterial Blood Pressure 137/48 Pulmonary Artery Pressure 40/20 Cardiac Output 6.7 Cardiac Index 3.3 - Exam Head normocephalic Neck supple Lungs patient currently intubated Heart regular rate and rhythm S1-S2, no rub or gallop Abdomen is soft nontender nondistended positive bowel sounds no hepatosplenomegaly Extremities no edema Patient remains sedated and on mechanical ventilation - Labs CBC & Chem 7: 08/24/18 03:53 08/24/18 03:53 Labs: Abnormal Lab Results - Last 24 Hours (Table) 08/23/18 08/23/18 08/23/18 Range/Units 12:17 16:47 20:13 RBC (4.30-5.90) m/uL Hgb (13.0-17.5) gm/dL Hct (39.0-53.0) % RDW (11.5-15.5) % Lymphocytes # (1.0-4.8) k/uL ABG HCO3 (21-25) mmol/L ABG Total CO2 (19-24) mmol/L ABG O2 Saturation (94-97) % Chloride (98-107) mmol/L BUN (9-20) mg/dL Creatinine (0.66-1.25) mg/dL Glucose (74-99) mg/dL POC Glucose (mg/dL) 151 H 198 H 175 H (75-99) mg/dL Calcium (8.4-10.2) mg/dL Magnesium (1.6-2.3) mg/dL Total Protein (6.3-8.2) g/dL Albumin (3.5-5.0) g/dL 08/23/18 08/24/18 08/24/18 Range/Units 23:43 03:52 03:53 RBC 2.44 L (4.30-5.90) m/uL Hgb 7.1 L (13.0-17.5) gm/dL Hct 22.6 L (39.0-53.0) % RDW 15.6 H (11.5-15.5) % Lymphocytes # 0.3 L (1.0-4.8) k/uL ABG HCO3 (21-25) mmol/L ABG Total CO2 (19-24) mmol/L ABG O2 Saturation (94-97) % Chloride (98-107) mmol/L BUN (9-20) mg/dL Creatinine (0.66-1.25) mg/dL Glucose (74-99) mg/dL POC Glucose (mg/dL) 204 H 192 H (75-99) mg/dL Calcium (8.4-10.2) mg/dL Magnesium (1.6-2.3) mg/dL Total Protein (6.3-8.2) g/dL Albumin (3.5-5.0) g/dL 08/24/18 08/24/18 08/24/18 Range/Units 03:53 05:09 07:43 RBC (4.30-5.90) m/uL Hgb (13.0-17.5) gm/dL Hct (39.0-53.0) % RDW (11.5-15.5) % Lymphocytes # (1.0-4.8) k/uL ABG HCO3 27 H (21-25) mmol/L ABG Total CO2 28 H (19-24) mmol/L ABG O2 Saturation 98.6 H (94-97) % Chloride 109 H (98-107) mmol/L BUN 43 H (9-20) mg/dL Creatinine 1.57 H (0.66-1.25) mg/dL Glucose 175 H (74-99) mg/dL POC Glucose (mg/dL) 189 H (75-99) mg/dL Calcium 8.2 L (8.4-10.2) mg/dL Magnesium 2.4 H (1.6-2.3) mg/dL Total Protein 5.1 L (6.3-8.2) g/dL Albumin 2.6 L (3.5-5.0) g/dL Microbiology - Last 24 Hours (Table) 08/21/18 13:23 Gram Stain - Preliminary Bronchial Washings - Random Bronchial Washings Culture - Preliminary 08/21/18 10:55 Gram Stain - Final Sputum Sputum Culture - Final Assessment and Plan Assessment: 1. Status post coronary artery bypass graft [address] Hannah postop day 4. The CHAHAL to LAD, SVG to PDA and Circ. Patient currently intubated and on sedation. Cardiovascular team and critical care team following closely. Patient currently up in chair. Patient has been extubated throughout night. hemoglobin 7.9. Discussed case with Luna per cardiovascular surgical team 2-D echo has been ordered due to diminished heart sounds. Hemoglobin 7.3. On 08/20 Patieht required reintubation due to extreme agitation and hypoxia. Critical care team following closely. PICC line placement ordered per cardiovascular surgery 2. Acute respiratory failure. Patient required reintubation last night 08/20. Chest x-ray completed showing right pleural effusion and bilateral lower lobe pulmonary infiltrates. There is probably mild heart failure. Endotracheal tube is in good position. Heart and lungs appear unchanged. Chest ultrasound completed showing small to tiny bilateral pleural effusions. Per pulmonary team No thoracentesis at this time. Status post bronchoscopy on 08/21/2018. Suspect right lower lobe collapse. Critical care and pulmonary services following closely. bronchial cultures pending 3. Acute Non-ST elevated myocardial infarction: Heart catheterization showing multivessel coronary artery disease with thrombus in the LAD. Patient has been seen by vascular surgery and planning for open heart surgery on Friday. Continue IV heparin and Aggrastat per cardiology. Continue with IV fluids. Pulmonary service also consulted for preop clearance. 4. Acute kidney injury: Unclear patient has chronic kidney disease. Creatinine in March 2018 was 1.3. Continue with IV fluid hydration. Creatinine 1.42. Continue to monitor closely. Creatinine continued to increase to 1.60. Discussed case with Luna gardner from cardiovascular surgery will continue to monitor closely at this point. Creatinine improving to 1.40 and bun 41. Nephrology following. Continue Lasix 40 mg IV daily per nephrology. Creatinine 1.57 and bun 43. 5. Essential hypertension 6. Diabetes mellitus insulin-dependent. Hemoglobin A1c 7.9. Patient on sliding scale insulin 7. History of COPD: No evidence of exacerbation. continue albuterol nebulizer as needed 8. BPH continue Flomax 9. Atelectasis noted on chest x-ray order incentive spirometer 10. Obesity BMI 39.4 kg 11. Possible acute ICU psychosis and delirium. Patient remains on Precedex. Critical care team following closely. On 08/20 patient required reintubation. Patient currently on Diprivan for sedation. 12. Expected acute blood loss anemia secondary to surgery. Hemoglobin 7.1. Cardiovascular surgery following closely. We'll continue to monitor closely DVT prophylaxis heparin and GI prophylaxis Protonix I performed an examination of the patient and discussed their management with the Nurse Practitioner. I have reviewed the Nurse Practitioner's notes and agree with the documented findings and plan of care
--- NOTE | 2018-08-24 10:13 | P.PN ---
Subjective Progress Note Date: 08/24/18 Principal diagnosis: Non-ST segment elevation myocardial infarction, coronary artery disease, status post three-vessel bypass grafting Progress note dated 08/24/2018 This is a 73-year-old male who was admitted on August 13 with a diagnosis of non-ST segment elevation myocardial infarction. On catheterization he was found have three-vessel CAD. He underwent bypass grafting on August 17. It was a three-vessel bypass. He was extubated and reintubated on August 20. He had a bronchoscopy performed on August 21. The patient is currently on the volume assist control mode with a rate of 16, tidal volume 500, FiO2 50%, and PEEP of 8. Arterial blood gases show a PaO2 of 102 a PaCO2 40 and a pH 7.43. The patient is currently on propofol at 40 mics per kilogram per minute, lactated Ringer's at 20 mL an hour and vital high protein at 30 with a goal of 30 mL an hour. He is postop day #7. Microbiology is negative. We will give him a daily interruption of sedation. Because he is so agitated off the propofol, we will try some dexmedetomidine has a sedative. We are hoping to place the patient on some pressure support and CPAP today but it may not be possible given his agitation. Objective - Vital Signs Vital signs: Vital Signs Temp 98.8 F 08/24/18 09:00 Pulse 77 08/24/18 09:00 Resp 24 08/24/18 09:00 BP 102/53 08/23/18 07:00 Pulse Ox 100 08/24/18 09:00 Intake & Output 08/23/18 08/24/18 08/24/18 18:59 06:59 18:59 Intake Total 8712.809 2408.562 325.517 Output Total 2065 805 165 Balance -738.004 322.562 160.517 Weight 109.2 kg 107.8 kg Intake: IV 399 328.0 146 Lactated Ringers 1,000 ml 260 220 140 @ 20 mls/hr IV .Q24H [facility] Rx#:[id number] Piperacillin-Tazobactam 3 100 75.0 .375 gm In Dextrose/Water 1 50ml.bag @ 12.5 mls/hr IVPB Q8HR [facility] Rx#: [id number] pressure bags 39 33 6 Intake, IV Titration 267.996 289.562 89.517 Amount Propofol 1,000 mg In 267.996 289.562 89.517 Empty Bag 1 bag @ Titrate IV .Q0M [facility] Rx#: [id number] Tube Feeding 570 420 90 Other 90 90 Output: Urine 2065 805 165 Other: Voiding Method Indwelling Catheter Indwelling Catheter # Bowel Movements 1 1 1 ABP, PAP, CO, CI - Last Documented Arterial Blood Pressure 137/48 Pulmonary Artery Pressure 40/20 Cardiac Output 6.7 Cardiac Index 3.3 - Exam No acute distress, currently sedated with an orally placed endotracheal tube and NG tube. HEENT examination is grossly unremarkable. Mucous membranes are moist. Neck supple. Full range of motion. No adenopathy thyromegaly or neck vein distention. Cardiovascular examination reveals regular rhythm rate. S1-S2 normal. No S3 or S4. No discernible murmur noted. Heart sounds are distant. Lungs reveal coarse expiratory rhonchi. No wheezes. A few scattered crackles. Her sounds equal bilaterally. Abdomen soft bowel sounds are heard. No masses or tenderness. Extremities are intact. No cyanosis clubbing or edema. Skin is without rash or lesion. Neurologic examination could not be adequately assessed as the patient is currently sedated. - Labs CBC & Chem 7: 08/24/18 03:53 08/24/18 03:53 Labs: Abnormal Lab Results - Last 24 Hours (Table) 08/23/18 08/23/18 08/23/18 Range/Units 12:17 16:47 20:13 RBC (4.30-5.90) m/uL Hgb (13.0-17.5) gm/dL Hct (39.0-53.0) % RDW (11.5-15.5) % Lymphocytes # (1.0-4.8) k/uL ABG HCO3 (21-25) mmol/L ABG Total CO2 (19-24) mmol/L ABG O2 Saturation (94-97) % Chloride (98-107) mmol/L BUN (9-20) mg/dL Creatinine (0.66-1.25) mg/dL Glucose (74-99) mg/dL POC Glucose (mg/dL) 151 H 198 H 175 H (75-99) mg/dL Calcium (8.4-10.2) mg/dL Magnesium (1.6-2.3) mg/dL Total Protein (6.3-8.2) g/dL Albumin (3.5-5.0) g/dL 08/23/18 08/24/18 08/24/18 Range/Units 23:43 03:52 03:53 RBC 2.44 L (4.30-5.90) m/uL Hgb 7.1 L (13.0-17.5) gm/dL Hct 22.6 L (39.0-53.0) % RDW 15.6 H (11.5-15.5) % Lymphocytes # 0.3 L (1.0-4.8) k/uL ABG HCO3 (21-25) mmol/L ABG Total CO2 (19-24) mmol/L ABG O2 Saturation (94-97) % Chloride (98-107) mmol/L BUN (9-20) mg/dL Creatinine (0.66-1.25) mg/dL Glucose (74-99) mg/dL POC Glucose (mg/dL) 204 H 192 H (75-99) mg/dL Calcium (8.4-10.2) mg/dL Magnesium (1.6-2.3) mg/dL Total Protein (6.3-8.2) g/dL Albumin (3.5-5.0) g/dL 08/24/18 08/24/18 08/24/18 Range/Units 03:53 05:09 07:43 RBC (4.30-5.90) m/uL Hgb (13.0-17.5) gm/dL Hct (39.0-53.0) % RDW (11.5-15.5) % Lymphocytes # (1.0-4.8) k/uL ABG HCO3 27 H (21-25) mmol/L ABG Total CO2 28 H (19-24) mmol/L ABG O2 Saturation 98.6 H (94-97) % Chloride 109 H (98-107) mmol/L BUN 43 H (9-20) mg/dL Creatinine 1.57 H (0.66-1.25) mg/dL Glucose 175 H (74-99) mg/dL POC Glucose (mg/dL) 189 H (75-99) mg/dL Calcium 8.2 L (8.4-10.2) mg/dL Magnesium 2.4 H (1.6-2.3) mg/dL Total Protein 5.1 L (6.3-8.2) g/dL Albumin 2.6 L (3.5-5.0) g/dL Microbiology - Last 24 Hours (Table) 08/21/18 13:23 Gram Stain - Preliminary Bronchial Washings - Random Bronchial Washings Culture - Preliminary 08/21/18 10:55 Gram Stain - Final Sputum Sputum Culture - Final Assessment and Plan Assessment: Assessment Postop day #7, status post three-vessel bypass grafting Status post extubation and reintubation on August 20 Postoperative ventilator management Non-ST segment elevation myocardial infarction ICU psychosis and delirium Status post bronchoscopy on August 21 for right lower lobe collapse Diabetes mellitus COPD History of chronic tobacco dependence History of prostate cancer History of hyperlipidemia Benign essential hypertension Previous nephrectomy Plan: Plan dated 08/24/2018 The patient's sedatives will be switched from propofol to dexmedetomidine. We' ll attempt a weaning trial with PSV 8 CPAP of 5. Microbiology is negative thus far. White count 5.7, hemoglobin 7.1, hematocrit 22.6, and platelet count 186, 000. Sodium and potassium are normal. Chloride 109. CO2 26 with a normal anion gap. BUN is 43 creatinine 1.57 and magnesium 2.4. Bronchoscopy specimens are thus far negative. We'll hoping that the switch from propofol to dexmedetomidine helps to control the patient's agitation. We'll attempt a weaning trial with PSV 8 CPAP of 5. Prognosis is guarded. We'll continue to follow closely Critical care time 32 minutes Time with Patient: Greater than 30
[2018-08-24] MEDS: DEXMEDETOMIDINE/0.9% NACL(PMX) 400 MCG in EMPTY BAG 1 BAG IV SCH ×4 (10:20→21:39)
[2018-08-24] MEDS: SODIUM FERRIC GLUCONAT-SUCROSE 125 MG in SODIUM CHLORIDE 0.9% 100 ML IVPB SCH (10:52)
--- NOTE | 2018-08-24 11:32 | P.PN ---
Subjective Progress Note Date: 08/24/18 Principal diagnosis: Non-elevated myocardial infarction this admission, symptomatic multivessel coronary artery disease, preoperative impaired left ventricular systolic function with an ejection fraction of 20-25%, hypertension, insulin-dependent diabetes mellitus with a preoperative hemoglobin A1c of 7.1%, COPD with a FEV1 of 87% of predicted, history of nicotine dependence quit smoking in 1979, history of prostate cancer with radiation more than 20 years ago, BPH, obesity with a BMI of 39.4, history of right nephrectomy in 1969, baseline admission creatinine 1.44 and hyperlipidemia. POD #7 urgent coronary artery bypass grafting 3 vessels, left internal mammary artery to left anterior descending coronary artery, a reverse greater saphenous vein graft to obtuse marginal coronary artery, a reverse greater saphenous vein graft to posterior descending coronary artery, endoscopic vein harvest of the left greater saphenous vein, epi-aortic ultrasound, intraoperative transesophageal echocardiogram, closure of sternum using titanium plates and [place] cable system. POD #3 bronchoscopy, bronchoalveolar lavage of the right middle lobe, right lower lobe and washings of both lungs performed by Dr. Almodovar from pulmonary medicine. Postoperative right lower lobe collapse, secondary to mucous plugging, an unexpected outcome. Postoperative delirium, an unexpected outcome. Postoperative acute respiratory distress requiring reintubation, and prolonged mechanical ventilation, an unexpected outcome. Postoperative acute blood loss anemia, an expected outcome of surgery due to cardiopulmonary bypass and hemodilution. Currently the patient remains intubated with mechanical ventilator support. He is in no acute distress. He remains sedated on propofol drip at 40 mcg/kg/m. He is not following any verbal commands at this time, although he does withdrawal to noxious stimuli. The patient moves all 4 extremities, episodes of restlessness. He remains off norepinephrine drip. Currently he has hemodynamically stable. Left antecubital PICC line placed 08/21/2018. Sedation holiday was attempted yesterday although the patient did become anxious and agitated. Dopamine drip was discontinued yesterday. Objective - Vital Signs Vital signs: Vital Signs Temp 98.8 F 08/24/18 09:00 Pulse 77 08/24/18 09:00 Resp 24 08/24/18 09:00 BP 102/53 08/23/18 07:00 Pulse Ox 100 08/24/18 09:00 Intake & Output 09/23/18 09/24/18 09/24/18 18:59 06:59 18:59 Intake Total 3212.400 3634.562 325.517 Output Total 2065 805 165 Balance -738.004 322.562 160.517 Weight 109.2 kg 107.8 kg Intake: IV 399 328.0 146 Lactated Ringers 1,000 ml 260 220 140 @ 20 mls/hr IV .Q24H [facility] Rx#:[id number] Piperacillin-Tazobactam 3 100 75.0 .375 gm In Dextrose/Water 1 50ml.bag @ 12.5 mls/hr IVPB Q8HR [facility] Rx#: [id number] pressure bags 39 33 6 Intake, IV Titration 267.996 289.562 89.517 Amount Propofol 1,000 mg In 267.996 289.562 89.517 Empty Bag 1 bag @ Titrate IV .Q0M [facility] Rx#: [id number] Tube Feeding 570 420 90 Other 90 90 Output: Urine 5 805 165 Other: Voiding Method Indwelling Catheter Indwelling Catheter # Bowel Movements 1 1 1 ABP, PAP, CO, CI - Last Documented Arterial Blood Pressure 137/48 Pulmonary Artery Pressure 40/20 Cardiac Output 6.7 Cardiac Index 3.3 - Constitutional General appearance: Present: morbidly obese, no acute distress - Respiratory Details: Lungs sounds essentially clear throughout, diminished was bilateral bases right greater than his left. Respirations are symmetrical and unlabored with mechanical ventilator support. Current ventilator settings are as follows: AC 16, TV 500, FiO2 50%, PEEP 8. Current oxygen saturations on mechanical ventilator support is 100%. ABG results this morning show a pH of 7.43, pCO2 40 , pO2 102, HCO3 27, O2 sat 98.6, base excess 2.4. - Cardiovascular Details: Regular rhythm and rate. S1 and S2 present, negative for S3, gallop or murmur. Sternum is stable. Bedside telemetry showing normal sinus rhythm heart rate 75. Heart hugger is in place. Atrial and ventricular epicardial pacemaker wires in place and grounded. Knee-high MARCELLE hose and sequential compression devices in place to his bilateral lower extremities. Right radial arterial line in place and functioning. Left antecubital PICC line in place and functioning. - Gastrointestinal Gastrointestinal Comment(s): Abdomen is soft, nontender and nondistended. Active bowel sounds all 4 abdominal quadrants. Bowel movement yesterday 08/23/2018. OG tube in place with vital high-protein tube feedings infusing at goal rate of 30 mL per hour with automatic water flushes. - Genitourinary Genitourinary Comment(s): Suero catheter for accurate I&O. Draining clear yellow urine with some whitish sediment. 555 mL output in the last 8 hours. - Integumentary Integumentary Comment(s): Skin is warm and dry. No clubbing or cyanosis present. Midline sternal incision clean dry and approximated. No drainage or redness present. Left lower extremity EVH site clean and dry and approximated. Ecchymotic area to his left thigh soft to touch. - Neurologic Neurologic Comment(s): Remains sedated on propofol drip at 40 mcg/kg/m. Withdrawals from noxious stimuli to all 4 extremities. - Musculoskeletal Musculoskeletal: Present: generalized weakness - Allied health notes Allied health notes reviewed: nursing - Labs CBC & Chem 7: 08/24/18 03:53 08/24/18 03:53 Labs: Abnormal Lab Results - Last 24 Hours (Table) 08/23/18 08/23/18 08/23/18 Range/Units 12:17 16:47 20:13 RBC (4.30-5.90) m/uL Hgb (13.0-17.5) gm/dL Hct (39.0-53.0) % RDW (11.5-15.5) % Lymphocytes # (1.0-4.8) k/uL ABG HCO3 (21-25) mmol/L ABG Total CO2 (19-24) mmol/L ABG O2 Saturation (94-97) % Chloride (98-107) mmol/L BUN (9-20) mg/dL Creatinine (0.66-1.25) mg/dL Glucose (74-99) mg/dL POC Glucose (mg/dL) 151 H 198 H 175 H (75-99) mg/dL Calcium (8.4-10.2) mg/dL Magnesium (1.6-2.3) mg/dL Total Protein (6.3-8.2) g/dL Albumin (3.5-5.0) g/dL 08/23/18 08/24/18 08/24/18 Range/Units 23:43 03:52 03:53 RBC 2.44 L (4.30-5.90) m/uL Hgb 7.1 L (13.0-17.5) gm/dL Hct 22.6 L (39.0-53.0) % RDW 15.6 H (11.5-15.5) % Lymphocytes # 0.3 L (1.0-4.8) k/uL ABG HCO3 (21-25) mmol/L ABG Total CO2 (19-24) mmol/L ABG O2 Saturation (94-97) % Chloride (98-107) mmol/L BUN (9-20) mg/dL Creatinine (0.66-1.25) mg/dL Glucose (74-99) mg/dL POC Glucose (mg/dL) 204 H 192 H (75-99) mg/dL Calcium (8.4-10.2) mg/dL Magnesium (1.6-2.3) mg/dL Total Protein (6.3-8.2) g/dL Albumin (3.5-5.0) g/dL 08/24/18 08/24/18 08/24/18 Range/Units 03:53 05:09 07:43 RBC (4.30-5.90) m/uL Hgb (13.0-17.5) gm/dL Hct (39.0-53.0) % RDW (11.5-15.5) % Lymphocytes # (1.0-4.8) k/uL ABG HCO3 27 H (21-25) mmol/L ABG Total CO2 28 H (19-24) mmol/L ABG O2 Saturation 98.6 H (94-97) % Chloride 109 H (98-107) mmol/L BUN 43 H (9-20) mg/dL Creatinine 1.57 H (0.66-1.25) mg/dL Glucose 175 H (74-99) mg/dL POC Glucose (mg/dL) 189 H (75-99) mg/dL Calcium 8.2 L (8.4-10.2) mg/dL Magnesium 2.4 H (1.6-2.3) mg/dL Total Protein 5.1 L (6.3-8.2) g/dL Albumin 2.6 L (3.5-5.0) g/dL Microbiology - Last 24 Hours (Table) 08/21/18 13:23 Gram Stain - Preliminary Bronchial Washings - Random Bronchial Washings Culture - Preliminary 08/21/18 10:55 Gram Stain - Final Sputum Sputum Culture - Final - Imaging and Cardiology Chest x-ray: report reviewed, image reviewed Assessment and Plan (1) NSTEMI (non-ST elevated myocardial infarction) Current Visit: Yes Status: Acute Code(s): I21.4 - NON-ST ELEVATION (NSTEMI) MYOCARDIAL INFARCTION SNOMED Code(s): 032345956 (2) CAD (coronary artery disease) Current Visit: Yes Status: Chronic Code(s): I25.10 - ATHSCL HEART DISEASE OF [place] CORONARY ARTERY W/O ANG PCTRS SNOMED Code(s): 80684364 (3) COPD (chronic obstructive pulmonary disease) Current Visit: Yes Status: Chronic Code(s): J44.9 - CHRONIC OBSTRUCTIVE PULMONARY DISEASE, UNSPECIFIED SNOMED Code(s): 54043258 (4) History of nephrectomy Current Visit: Yes Status: Chronic Code(s): Z90.5 - ACQUIRED ABSENCE OF KIDNEY SNOMED Code(s): 29051963497145 (5) History of prostate cancer Current Visit: Yes Status: Chronic Code(s): Z85.46 - PERSONAL HISTORY OF MALIGNANT NEOPLASM OF PROSTATE SNOMED Code(s): 261188996 (6) Hyperlipidemia Current Visit: Yes Status: Chronic Code(s): E78.5 - HYPERLIPIDEMIA, UNSPECIFIED SNOMED Code(s): 31259666 (7) Hypertension Current Visit: Yes Status: Chronic Code(s): I10 - ESSENTIAL (PRIMARY) HYPERTENSION SNOMED Code(s): 73882162 (8) Insulin dependent diabetes mellitus Current Visit: Yes Status: Chronic Code(s): E11.9 - TYPE 2 DIABETES MELLITUS WITHOUT COMPLICATIONS; Z79.4 - LONG-TERM (CURRENT) USE OF INSULIN SNOMED Code(s): 58074521 (9) Left main coronary artery disease Current Visit: Yes Status: Chronic Code(s): I25.10 - ATHSCL HEART DISEASE OF [place] CORONARY ARTERY W/O ANG PCTRS SNOMED Code(s): 261131254 (10) Tobacco dependence in remission Current Visit: No Status: Resolved Code(s): F17.201 - NICOTINE DEPENDENCE, UNSPECIFIED, IN REMISSION SNOMED Code(s): 403974400 Plan: 1. Continue aspirin, statin, Plavix and beta laurie. Will increase beta laurie therapy as tolerated. 2. Discontinue propofol per Dr. Aguillon's orders. He will be started on Precedex for control of his anxiousness. 3. Ventilator management per pulmonology. Continue Zosyn managed by Dr. Aguillon. 4. Increase activity once extubated. PT/OT/cardiac rehab following. 6. Routine PICC line care. 7. Lasix 40 mg IV 1 now. 7. Bronchodilators per pulmonology. 8. Insulin per primary care service. 7. Will monitor daily labs and x-rays. 9. GI prophylaxis with Protonix. DVT prophylaxis with subcu heparin, SCDs. 10. Pain control with current medication regimen. 11. Continue Flomax for BPH. 12. Avoid nephrotoxic agents. Nephrology following. 13. Ground atrial and ventricular epicardial pacemaker wires. 14. Continue vital high-protein to feedings per OG tube for nutritional support. 15. Bronchoscopy bronchial washing culture results remain pending. Preliminary reports show no organisms growing. 16. More recommendations to follow based on patient's clinical course. Time with Patient: Greater than 30
[2018-08-24 12:20] LABS: Glucose,Whole Blood 233 mg/dL (75-99)
[2018-08-24] MEDS: ACETAMINOPHEN TAB 325 MG TAB PO PRN (12:30)
--- NOTE | 2018-08-24 12:41 | P.PN ---
Subjective Patient is status post coronary artery bypass grafting. Experienced respiratory distress with acute respiratory failure after extubation last week. Initially was in a BiPAP. On Friday he was intubated and still remains intubated eyes nodding his head in response to some questions On examination temperature 100.3 pulse rate in the 80s blood pressure low normal Breath sounds are reduced bilaterally Abdomen soft Morbid obesity Suggest Continue post cc surgery care and ICU care for now and continue cardiac medications Objective - Vital Signs Vital signs: Vital Signs Temp 100.3 F H 08/24/18 12:00 Pulse 77 08/24/18 12:00 Resp 50 H 08/24/18 12:00 BP 102/53 08/23/18 07:00 Pulse Ox 100 08/24/18 12:00 Intake & Output 08/23/18 08/24/18 08/24/18 18:59 06:59 18:59 Intake Total 0196.998 0947.562 574.134 Output Total 2065 805 730 Balance -738.004 322.562 -155.866 Weight 109.2 kg 107.8 kg 107.8 kg Intake: IV 399 328.0 188 Lactated Ringers 1,000 ml 260 220 120 @ 20 mls/hr IV .Q24H [facility] Rx#:[id number] Piperacillin-Tazobactam 3 100 75.0 50 .375 gm In Dextrose/Water 1 50ml.bag @ 12.5 mls/hr IVPB Q8HR [facility] Rx#: [id number] pressure bags 39 33 18 Intake, IV Titration 267.996 289.562 206.134 Amount Dexmedetomidine/0.9% NaCl 16.617 (Pmx) 400 mcg In Empty Bag 1 bag @ Titrate IV . Q0M [facility] Rx#:[id number] Propofol 1,000 mg In 267.996 289.562 189.517 Empty Bag 1 bag @ Titrate IV .Q0M [facility] Rx#: [id number] Tube Feeding 570 420 180 Other 90 90 Output: Urine 2065 805 730 Other: Voiding Method Indwelling Catheter Indwelling Catheter Indwelling Catheter # Bowel Movements 1 1 1 ABP, PAP, CO, CI - Last Documented Arterial Blood Pressure 113/45 Pulmonary Artery Pressure 40/20 Cardiac Output 6.7 Cardiac Index 3.3 - Labs CBC & Chem 7: 08/24/18 03:53 08/24/18 03:53 Labs: Abnormal Lab Results - Last 24 Hours (Table) 08/23/18 08/23/18 08/23/18 Range/Units 16:47 20:13 23:43 RBC (4.30-5.90) m/uL Hgb (13.0-17.5) gm/dL Hct (39.0-53.0) % RDW (11.5-15.5) % Lymphocytes # (1.0-4.8) k/uL ABG HCO3 (21-25) mmol/L ABG Total CO2 (19-24) mmol/L ABG O2 Saturation (94-97) % Chloride (98-107) mmol/L BUN (9-20) mg/dL Creatinine (0.66-1.25) mg/dL Glucose (74-99) mg/dL POC Glucose (mg/dL) 198 H 175 H 204 H (75-99) mg/dL Calcium (8.4-10.2) mg/dL Magnesium (1.6-2.3) mg/dL Total Protein (6.3-8.2) g/dL Albumin (3.5-5.0) g/dL 08/24/18 08/24/18 08/24/18 Range/Units 03:52 03:53 03:53 RBC 2.44 L (4.30-5.90) m/uL Hgb 7.1 L (13.0-17.5) gm/dL Hct 22.6 L (39.0-53.0) % RDW 15.6 H (11.5-15.5) % Lymphocytes # 0.3 L (1.0-4.8) k/uL ABG HCO3 (21-25) mmol/L ABG Total CO2 (19-24) mmol/L ABG O2 Saturation (94-97) % Chloride 109 H (98-107) mmol/L BUN 43 H (9-20) mg/dL Creatinine 1.57 H (0.66-1.25) mg/dL Glucose 175 H (74-99) mg/dL POC Glucose (mg/dL) 192 H (75-99) mg/dL Calcium 8.2 L (8.4-10.2) mg/dL Magnesium 2.4 H (1.6-2.3) mg/dL Total Protein 5.1 L (6.3-8.2) g/dL Albumin 2.6 L (3.5-5.0) g/dL 08/24/18 08/24/18 08/24/18 Range/Units 05:09 07:43 12:04 RBC (4.30-5.90) m/uL Hgb (13.0-17.5) gm/dL Hct (39.0-53.0) % RDW (11.5-15.5) % Lymphocytes # (1.0-4.8) k/uL ABG HCO3 27 H (21-25) mmol/L ABG Total CO2 28 H (19-24) mmol/L ABG O2 Saturation 98.6 H (94-97) % Chloride (98-107) mmol/L BUN (9-20) mg/dL Creatinine (0.66-1.25) mg/dL Glucose (74-99) mg/dL POC Glucose (mg/dL) 189 H 233 H (75-99) mg/dL Calcium (8.4-10.2) mg/dL Magnesium (1.6-2.3) mg/dL Total Protein (6.3-8.2) g/dL Albumin (3.5-5.0) g/dL Microbiology - Last 24 Hours (Table) 08/21/18 13:23 Gram Stain - Preliminary Bronchial Washings - Random Bronchial Washings Culture - Preliminary 08/21/18 10:55 Gram Stain - Final Sputum Sputum Culture - Final
[2018-08-24] MEDS: CLEVIDIPINE BUTYRATE 25 MG in EMPTY BAG 1 BAG IV SCH (15:25)
[2018-08-24 16:06] LABS: Glucose,Whole Blood 231 mg/dL (75-99)
[2018-08-24] MEDS: LACTATED RINGERS 1,000 ML IV SCH (17:52)
[2018-08-24] MEDS ORDERED: HYDROmorphone 1 MG/ML 1 ML SYRINGE IVP PRN (19:10)
[2018-08-24] MEDS: HYDROmorphone 1 MG/ML 1 ML SYRINGE IVP PRN ×2 (19:21→22:01)
[2018-08-24 20:21] LABS: Glucose,Whole Blood 238 mg/dL (75-99)
[2018-08-24] MEDS ORDERED: INSULIN DETEMIR 100 UNIT/ML 10 ML VIAL SQ SCH (21:00)
[2018-08-24] MEDS: SENNOSIDES-DOCUSATE SODIUM 1 EACH TAB PO SCH (21:48)
[2018-08-24] MEDS: TAMSULOSIN 0.4 MG CAP.ER.24H PO SCH (21:48)
[2018-08-24 23:38] LABS: Glucose,Whole Blood 214 mg/dL (75-99)
[2018-08-25] MEDS: INSULIN ASPART 100 UNIT/ML 1 ML 10 ML VIAL SQ SCH ×6 (00:12→21:04)
[2018-08-25] MEDS: PIPERACILLIN-TAZOBACTAM 3.375 GM in DEXTROSE/WATER 1 50ML.BAG IVPB SCH ×3 (00:13→15:17)
[2018-08-25] MEDS: HEPARIN SODIUM,PORCINE 5,000 UNIT/ML 1 ML VIAL SQ SCH ×3 (00:13→15:18)
[2018-08-25] MEDS: IPRATROPIUM-ALBUTEROL 3 ML NEB INHALATION SCH ×6 (00:42→20:17)
[2018-08-25] MEDS: HYDROmorphone 1 MG/ML 1 ML SYRINGE IVP PRN ×4 (01:42→21:22)
[2018-08-25 04:16] LABS: Glucose,Whole Blood 223 mg/dL (75-99)
[2018-08-25 04:58] LABS: ABG Base Excess 2.5 mmol/L; ABG HCO3 27 mmol/L (21-25); ABG Oxygen Saturation 96.3 % (94-97); ABG PCO2 41 mmHg (35-45); ABG PH 7.43 (7.35-7.45); ABG PO2 80 mmHg (83-108); ABG TCO2 28 mmol/L (19-24)
[2018-08-25 05:32] LABS: Magnesium 2.4 mg/dL (1.6-2.3); Potassium 4.3 mmol/L (3.5-5.1)
[2018-08-25 06:01] LABS: Basophils % (A) 1 %; Eosinophils # (A) 0.1 k/uL (0-0.7); Eosinophils % (A) 2 %; Hypochromasia Moderate; Lymphocytes # (A) 0.5 k/uL (1.0-4.8); Lymphocytes % (A) 9 %; MCH 29.5 pg (25.0-35.0); MCHC 31.1 g/dL (31.0-37.0); MCV 95.1 fL (80.0-100.0); Mean Platelet Volume 7.7; Monocytes # (A) 0.3 k/uL (0-1.0); Monocytes % (A) 6 %; Neutrophils # (A) 4.8 k/uL (1.3-7.7); Neutrophils % (A) 82 %; Platelet Count 213 k/uL (150-450); RBC 2.32 m/uL (4.30-5.90); RDW 15.8 % (11.5-15.5); WBC 5.8 k/uL (3.8-10.6)
[2018-08-25] MEDS: ACETAMINOPHEN TAB 325 MG TAB PO PRN (06:43)
[2018-08-25 06:47] LABS: HGB 6.8 gm/dL (13.0-17.5)
[2018-08-25] MEDS: DEXMEDETOMIDINE/0.9% NACL(PMX) 400 MCG in EMPTY BAG 1 BAG IV SCH (07:57)
--- NOTE | 2018-08-25 08:00 | P.PN ---
Subjective Progress Note Date: 08/25/18 Principal diagnosis: Non-ST segment elevation myocardial infarction, coronary artery disease, status post three-vessel bypass grafting Progress note dated 08/24/2018 This is a 73-year-old male who was admitted on August 13 with a diagnosis of non-ST segment elevation myocardial infarction. On catheterization he was found have three-vessel CAD. He underwent bypass grafting on August 17. It was a three-vessel bypass. He was extubated and reintubated on August 20. He had a bronchoscopy performed on August 21. The patient is currently on the volume assist control mode with a rate of 16, tidal volume 500, FiO2 50%, and PEEP of 8. Arterial blood gases show a PaO2 of 102 a PaCO2 40 and a pH 7.43. The patient is currently on propofol at 40 mics per kilogram per minute, lactated Ringer's at 20 mL an hour and vital high protein at 30 with a goal of 30 mL an hour. He is postop day #7. Microbiology is negative. We will give him a daily interruption of sedation. Because he is so agitated off the propofol, we will try some dexmedetomidine has a sedative. We are hoping to place the patient on some pressure support and CPAP today but it may not be possible given his agitation. Progress note dated 08/25/2018 73-year-old male who was admitted on August 13 with a diagnosis of non-ST segment elevation myocardial infarction. He was found have three-vessel coronary artery disease on catheterization and underwent bypass grafting on August 17. It was a three-vessel bypass. He apparently was extubated and subsequent reintubated on August 20. Because of lung collapse, he had a bronchoscopy performed on August 21. Currently, the patient remains on mechanical ventilation. He's been very agitated and delirious. We did switch him from propofol to dexmedetomidine yesterday. Currently, he is on the volume assist control mode rate is 16, tidal volume 500, FiO2 50% and PEEP of 8. Blood gases show a PaO2 of 80 a PaCO2 of 41 and a pH of 7.425. Currently, he is on Precedex at 0.7 mcg/kg/h, lactated Ringer's at 20 mL an hour and vital high protein at 55 with a goal of 55 mL an hour. Chest x-ray does appear to show some volume also in the right lower lobe. White count of 5.8 hemoglobin 6.8 hematocrit 22.0 and platelet count 313,000. Sodium and potassium were normal. Chloride 108 CO2 26 with a BUN and creatinine of 53 and 1.85. Anion gap is normal. Magnesium 2.4. Current microbiologic studies are all negative. He does appear to be much better controlled today. He is much more alert and awake. We will attempt a spontaneous breathing trial with PSV 5 CPAP of 5. We' ll also get a full set a weaning parameters including a rapid shallow breathing index and a cuff leak test. We may get a blood gas. Additional recommendations and suggestions are forthcoming. Objective - Vital Signs Vital signs: Vital Signs Temp 100.2 F H 08/25/18 07:30 Pulse 70 08/25/18 07:28 Resp 18 08/25/18 07:00 BP 102/53 08/23/18 07:00 Pulse Ox 99 08/25/18 07:00 Intake & Output 08/24/18 08/25/18 08/25/18 18:59 06:59 18:59 Intake Total 1103.771 982.845 20 Output Total 1100 468 75 Balance 3.771 514.845 -55 Weight 107.8 kg 110.7 kg Intake: IV 349 303 20 Lactated Ringers 1,000 ml 260 220 20 @ 20 mls/hr IV .Q24H [facility] Rx#:[id number] Piperacillin-Tazobactam 3 50 50 .375 gm In Dextrose/Water 1 50ml.bag @ 12.5 mls/hr IVPB Q8HR [facility] Rx#: [id number] pressure bags 39 33 Intake, IV Titration 304.771 59.845 Amount Dexmedetomidine/0.9% NaCl 115.254 59.845 (Pmx) 400 mcg In Empty Bag 1 bag @ Titrate IV . Q0M [facility] Rx#:[id number] Propofol 1,000 mg In 189.517 Empty Bag 1 bag @ Titrate IV .Q0M [facility] Rx#: [id number] Tube Feeding 450 620 0 Output: Urine 1100 468 75 Other: Voiding Method Indwelling Catheter Indwelling Catheter # Bowel Movements 1 ABP, PAP, CO, CI - Last Documented Arterial Blood Pressure 127/45 Pulmonary Artery Pressure 40/20 Cardiac Output 6.7 Cardiac Index 3.3 - Exam No acute distress, much more awake and alert today, with endotracheal tube in place. HEENT examination is grossly unremarkable. Mucous membranes are moist. Neck supple. Full range of motion. No adenopathy thyromegaly or neck vein distention. Cardiovascular examination reveals regular rhythm rate. S1-S2 normal. No S3 or S4. No discernible murmur noted. Heart sounds are distant. Lungs reveal diminished breath sounds throughout. A few scattered rhonchi and wheezes are noted. No crackles. Breath sounds equal bilaterally. Abdomen soft bowel sounds are heard. No masses or tenderness. Extremities are intact. No cyanosis clubbing or edema. Skin is without rash or lesion. Neurologic examination could not be adequately assessed as the patient is currently sedated. - Labs CBC & Chem 7: 08/25/18 04:28 08/25/18 04:28 Labs: Abnormal Lab Results - Last 24 Hours (Table) 08/21/18 08/24/18 08/24/18 Range/Units 13:23 12:04 16:04 RBC (4.30-5.90) m/uL Hgb (13.0-17.5) gm/dL Hct (39.0-53.0) % RDW (11.5-15.5) % Lymphocytes # (1.0-4.8) k/uL ABG pO2 (83-108) mmHg ABG HCO3 (21-25) mmol/L ABG Total CO2 (19-24) mmol/L Chloride (98-107) mmol/L BUN (9-20) mg/dL Creatinine (0.66-1.25) mg/dL Glucose (74-99) mg/dL POC Glucose (mg/dL) 233 H 231 H (75-99) mg/dL Calcium (8.4-10.2) mg/dL Magnesium (1.6-2.3) mg/dL Viral Test See Below H 08/24/18 08/24/18 08/25/18 Range/Units 20:18 23:37 04:15 RBC (4.30-5.90) m/uL Hgb (13.0-17.5) gm/dL Hct (39.0-53.0) % RDW (11.5-15.5) % Lymphocytes # (1.0-4.8) k/uL ABG pO2 (83-108) mmHg ABG HCO3 (21-25) mmol/L ABG Total CO2 (19-24) mmol/L Chloride (98-107) mmol/L BUN (9-20) mg/dL Creatinine (0.66-1.25) mg/dL Glucose (74-99) mg/dL POC Glucose (mg/dL) 238 H 214 H 223 H (75-99) mg/dL Calcium (8.4-10.2) mg/dL Magnesium (1.6-2.3) mg/dL Viral Test 08/25/18 08/25/18 08/25/18 Range/Units 04:28 04:28 04:54 RBC 2.32 L (4.30-5.90) m/uL Hgb 6.8 L* (13.0-17.5) gm/dL Hct 22.0 L (39.0-53.0) % RDW 15.8 H (11.5-15.5) % Lymphocytes # 0.5 L (1.0-4.8) k/uL ABG pO2 80 L (83-108) mmHg ABG HCO3 27 H (21-25) mmol/L ABG Total CO2 28 H (19-24) mmol/L Chloride 108 H (98-107) mmol/L BUN 53 H (9-20) mg/dL Creatinine 1.85 H (0.66-1.25) mg/dL Glucose 193 H (74-99) mg/dL POC Glucose (mg/dL) (75-99) mg/dL Calcium 8.0 L (8.4-10.2) mg/dL Magnesium 2.4 H (1.6-2.3) mg/dL Viral Test Microbiology - Last 24 Hours (Table) 08/21/18 13:23 Gram Stain - Preliminary Bronchial Washings - Random Bronchial Washings Culture - Preliminary Assessment and Plan Assessment: Assessment Postop day #8, status post three-vessel bypass grafting Status post extubation and reintubation on August 20 Postoperative ventilator management Non-ST segment elevation myocardial infarction ICU psychosis and delirium Status post bronchoscopy on August 21 for right lower lobe collapse Diabetes mellitus COPD History of chronic tobacco dependence History of prostate cancer History of hyperlipidemia Benign essential hypertension Previous nephrectomy Plan: Plan dated 08/24/2018 The patient's sedatives will be switched from propofol to dexmedetomidine. We' ll attempt a weaning trial with PSV 8 CPAP of 5. Microbiology is negative thus far. White count 5.7, hemoglobin 7.1, hematocrit 22.6, and platelet count 186, 000. Sodium and potassium are normal. Chloride 109. CO2 26 with a normal anion gap. BUN is 43 creatinine 1.57 and magnesium 2.4. Bronchoscopy specimens are thus far negative. We'll hoping that the switch from propofol to dexmedetomidine helps to control the patient's agitation. We'll attempt a weaning trial with PSV 8 CPAP of 5. Prognosis is guarded. We'll continue to follow closely Critical care time 32 minutes Plan dated 08/25/2018 It appears that the patient's sedation is much better on dexmedetomidine then propofol. The patient will be placed on PSV 5/CPAP of 5 and the patient will be given a spontaneous breathing trial. We'll get a full set a weaning parameters and a cuff leak. He may benefit from a blood gas. We'll make a determination about extubation. 2 feeds are sent off at this time. Labs x- rays a medications are all reviewed. Currently, in addition to the Precedex of 0.7 mcg/kg/h, is on lactated Ringer's at 20 mL an hour. Tube feeds have been held. Prognosis is guarded. Additional recommendations and suggestions are forthcoming. Labs x-rays and medications are thoroughly reviewed. Critical care time 34 minutes Time with Patient: Greater than 30
[2018-08-25] MEDS: CHLORHEXIDINE GLUCONATE 15 ML CUP MUCOUS MEM SCH ×2 (08:05→20:36)
[2018-08-25] MEDS: PANTOPRAZOLE 40 MG/10 ML VIAL IVP SCH (08:06)
[2018-08-25] MEDS: ASPIRIN 325 MG TAB PO SCH (08:06)
[2018-08-25] MEDS: METOPROLOL TARTRATE 12.5 MG TAB PO SCH ×2 (08:06→21:04)
[2018-08-25] MEDS: ASCORBIC ACID 500 MG TAB PO SCH ×2 (08:06→16:31)
[2018-08-25] MEDS: CLOPIDOGREL 75 MG TAB PO SCH (08:06)
[2018-08-25] MEDS: ATORVASTATIN 40 MG TAB PO SCH (08:06)
[2018-08-25] MEDS: QUEtiapine 50 MG TAB PO SCH ×2 (08:12→22:54)
[2018-08-25] MEDS: FERROUS SULFATE ORAL ELIXIR 300 MG/5 ML CUP PO SCH ×2 (08:12→16:31)
[2018-08-25 08:21] LABS: Glucose,Whole Blood 213 mg/dL (75-99)
[2018-08-25] MEDS ORDERED: DEXAMETHASONE SOD PHOSPHATE 10 MG/ML 1 ML VIAL IV STA (08:31)
[2018-08-25] MEDS ORDERED: SODIUM CHLORIDE 0.9% NEBULIZ 3 ML INHALATION ONE (08:33)
[2018-08-25] MEDS ORDERED: RACEPINEPHRINE 2.25% NEB 0.5 ML NEBU INHALATION ONE (08:33)
[2018-08-25] MEDS ORDERED: RACEPINEPHRINE 2.25% NEB 0.5 ML NEBU INHALATION STA (08:35)
--- NOTE | 2018-08-25 08:37 | XR ---
EXAMINATION TYPE: XR chest 1V portable DATE OF EXAM: 08/25/2018 COMPARISON: Prior chest x-ray 08/24/2018 HISTORY: Intubated TECHNIQUE: Single frontal view of the chest is obtained. FINDINGS: Endotracheal tube, NG tube are overlying appropriate positions. Patient is post median yuli rnotomy. Basilar density persists on the right. No evident pneumothorax. Mediastinum is widened. Left -sided PICC line is present, distal tip coursing to the level of the right atrium. Heart remains enla rged. Interstitium is improved. IMPRESSION: There may be some improvement in patient's volume status. There may be basilar atelectas is, effusion, difficult to exclude pneumonia at the right lung base. Additional follow-up recommended .
[2018-08-25] MEDS: SODIUM FERRIC GLUCONAT-SUCROSE 125 MG in SODIUM CHLORIDE 0.9% 100 ML IVPB SCH (09:10)
--- NOTE | 2018-08-25 09:36 | P.PN ---
Subjective Progress Note Date: 08/25/18 Principal diagnosis: Non-elevated myocardial infarction this admission, symptomatic multivessel coronary artery disease, preoperative impaired left ventricular systolic function with an ejection fraction of 20-25%, hypertension, insulin-dependent diabetes mellitus with a preoperative hemoglobin A1c of 7.1%, COPD with a FEV1 of 87% of predicted, history of nicotine dependence quit smoking in 1979, history of prostate cancer with radiation more than 20 years ago, BPH, obesity with a BMI of 39.4, history of right nephrectomy in 1969, baseline admission creatinine 1.44 and hyperlipidemia. POD #8 urgent coronary artery bypass grafting 3 vessels, left internal mammary artery to left anterior descending coronary artery, a reverse greater saphenous vein graft to obtuse marginal coronary artery, a reverse greater saphenous vein graft to posterior descending coronary artery, endoscopic vein harvest of the left greater saphenous vein, epi-aortic ultrasound, intraoperative transesophageal echocardiogram, closure of sternum using titanium plates and [place] cable system. POD #4 bronchoscopy, bronchoalveolar lavage of the right middle lobe, right lower lobe and washings of both lungs performed by Dr. Almodovar from pulmonary medicine. Postoperative right lower lobe collapse, secondary to mucous plugging, an unexpected outcome. Postoperative delirium, an unexpected outcome. Postoperative acute respiratory distress requiring reintubation, and prolonged mechanical ventilation, an unexpected outcome. Postoperative acute blood loss anemia, an expected outcome of surgery due to cardiopulmonary bypass and hemodilution. The patient was extubated at 8:25 AM today. Post extubation he did have some stridor and coarse breath sounds, he was given some Decadron and racemic epinephrine. Oxygen saturations are 99% with current BiPAP settings. The patient moves all 4 extremities to verbal command, he is guarding his right arm and grimaces with movement. Left antecubital PICC line placed 08/21/2018. Precedex drip remains infusing at 0.3 mcg/kg per hour. Objective - Vital Signs Vital signs: Vital Signs Temp 101.0 F H 08/25/18 08:00 Pulse 71 08/25/18 09:00 Resp 22 08/25/18 09:00 BP 102/53 08/23/18 07:00 Pulse Ox 97 08/25/18 09:00 Intake & Output 08/24/18 08/25/18 08/25/18 18:59 06:59 18:59 Intake Total 2572.364 6131.845 250.774 Output Total 1100 468 155 Balance 3.771 614.845 95.774 Weight 107.8 kg 110.7 kg 110.7 kg Intake: IV 349 303 116 Lactated Ringers 1,000 ml 260 220 60 @ 20 mls/hr IV .Q24H [facility] Rx#:[id number] Piperacillin-Tazobactam 3 50 50 50 .375 gm In Dextrose/Water 1 50ml.bag @ 12.5 mls/hr IVPB Q8HR [facility] Rx#: [id number] pressure bags 39 33 6 Intake, IV Titration 304.771 159.845 14.774 Amount Dexmedetomidine/0.9% NaCl 115.254 159.845 14.774 (Pmx) 400 mcg In Empty Bag 1 bag @ Titrate IV . Q0M [facility] Rx#:[id number] Propofol 1,000 mg In 189.517 Empty Bag 1 bag @ Titrate IV .Q0M [facility] Rx#: [id number] Oral 120 Tube Feeding 450 620 0 Output: Urine 1100 468 155 Other: Voiding Method Indwelling Catheter Indwelling Catheter # Bowel Movements 1 ABP, PAP, CO, CI - Last Documented Arterial Blood Pressure 98/44 Pulmonary Artery Pressure 40/20 Cardiac Output 6.7 Cardiac Index 3.3 - Constitutional General appearance: Present: cooperative, morbidly obese, no acute distress - Respiratory Details: Lung sounds with coarse rhonchi throughout, rectifier operator bilateral bases. Respirations are symmetrical and nonlabored with BiPAP support. Current BiPAP settings are 10/5, rate of 10, FiO2 50%. ABG results this morning showed a pH of 7.3, pCO2 41, pO2 80, HCO3 27, O2 sat 96.3, base excess 2.5. Not tolerating incentive spirometry at this time. - Cardiovascular Details: Regular rhythm and rate. S1 and S2 present, negative for S3, gallop or murmur. Sternum is stable. Bedside telemetry showing normal sinus rhythm heart rate 70. Right radial arterial line in place and functioning. Left antecubital PICC line in place and functioning. Knee-high MARCELLE hose and sequential compression devices in place to his bilateral lower extremities. Trace pedal edema. Heart hugger is in place. Atrial and ventricular epicardial pacemaker wires in place and grounded. - Gastrointestinal Gastrointestinal Comment(s): Abdomen is soft, nontender and nondistended. Active bowel sounds all 4 abdominal quadrants. Bowel movement yesterday 08/24/2018. OG tube was removed with extubation. - Genitourinary Genitourinary Comment(s): Suero catheter for accurate I&O. Draining clear yellow urine with scant whitish sediment. 350 mL output in the last 8 hours. - Integumentary Integumentary Comment(s): Skin is warm and dry. No clubbing or cyanosis present. Midline sternal incision clean and dry and approximated. Dressing clean and dry and intact. No drainage or redness present. Left lower extremity EVH site clean dry and approximated. No redness or drainage present. Ecchymotic area to his left thigh soft touch, nontender. - Neurologic Neurologic: Present: CNII-XII intact - Musculoskeletal Musculoskeletal: Present: right sided weakness (Grimacing with movement of his right arm.) - Psychiatric Psychiatric: Present: appropriate affect - Allied health notes Allied health notes reviewed: nursing - Labs CBC & Chem 7: 08/25/18 04:28 08/25/18 04:28 Labs: Abnormal Lab Results - Last 24 Hours (Table) 08/21/18 08/24/18 08/24/18 Range/Units 13:23 12:04 16:04 RBC (4.30-5.90) m/uL Hgb (13.0-17.5) gm/dL Hct (39.0-53.0) % RDW (11.5-15.5) % Lymphocytes # (1.0-4.8) k/uL ABG pO2 (83-108) mmHg ABG HCO3 (21-25) mmol/L ABG Total CO2 (19-24) mmol/L Chloride (98-107) mmol/L BUN (9-20) mg/dL Creatinine (0.66-1.25) mg/dL Glucose (74-99) mg/dL POC Glucose (mg/dL) 233 H 231 H (75-99) mg/dL Calcium (8.4-10.2) mg/dL Magnesium (1.6-2.3) mg/dL Viral Test See Below H 08/24/18 08/24/18 08/25/18 Range/Units 20:18 23:37 04:15 RBC (4.30-5.90) m/uL Hgb (13.0-17.5) gm/dL Hct (39.0-53.0) % RDW (11.5-15.5) % Lymphocytes # (1.0-4.8) k/uL ABG pO2 (83-108) mmHg ABG HCO3 (21-25) mmol/L ABG Total CO2 (19-24) mmol/L Chloride (98-107) mmol/L BUN (9-20) mg/dL Creatinine (0.66-1.25) mg/dL Glucose (74-99) mg/dL POC Glucose (mg/dL) 238 H 214 H 223 H (75-99) mg/dL Calcium (8.4-10.2) mg/dL Magnesium (1.6-2.3) mg/dL Viral Test 08/25/18 08/25/18 08/25/18 Range/Units 04:28 04:28 04:54 RBC 2.32 L (4.30-5.90) m/uL Hgb 6.8 L* (13.0-17.5) gm/dL Hct 22.0 L (39.0-53.0) % RDW 15.8 H (11.5-15.5) % Lymphocytes # 0.5 L (1.0-4.8) k/uL ABG pO2 80 L (83-108) mmHg ABG HCO3 27 H (21-25) mmol/L ABG Total CO2 28 H (19-24) mmol/L Chloride 108 H (98-107) mmol/L BUN 53 H (9-20) mg/dL Creatinine 1.85 H (0.66-1.25) mg/dL Glucose 193 H (74-99) mg/dL POC Glucose (mg/dL) (75-99) mg/dL Calcium 8.0 L (8.4-10.2) mg/dL Magnesium 2.4 H (1.6-2.3) mg/dL Viral Test 08/25/18 Range/Units 08:19 RBC (4.30-5.90) m/uL Hgb (13.0-17.5) gm/dL Hct (39.0-53.0) % RDW (11.5-15.5) % Lymphocytes # (1.0-4.8) k/uL ABG pO2 (83-108) mmHg ABG HCO3 (21-25) mmol/L ABG Total CO2 (19-24) mmol/L Chloride (98-107) mmol/L BUN (9-20) mg/dL Creatinine (0.66-1.25) mg/dL Glucose (74-99) mg/dL POC Glucose (mg/dL) 213 H (75-99) mg/dL Calcium (8.4-10.2) mg/dL Magnesium (1.6-2.3) mg/dL Viral Test Microbiology - Last 24 Hours (Table) 08/21/18 13:23 Gram Stain - Final Bronchial Washings - Random Bronchial Washings Culture - Final - Imaging and Cardiology Chest x-ray: report reviewed, image reviewed Assessment and Plan (1) NSTEMI (non-ST elevated myocardial infarction) Current Visit: Yes Status: Acute Code(s): I21.4 - NON-ST ELEVATION (NSTEMI) MYOCARDIAL INFARCTION SNOMED Code(s): 727336294 (2) CAD (coronary artery disease) Current Visit: Yes Status: Chronic Code(s): I25.10 - ATHSCL HEART DISEASE OF [place] CORONARY ARTERY W/O ANG PCTRS SNOMED Code(s): 49101803 (3) COPD (chronic obstructive pulmonary disease) Current Visit: Yes Status: Chronic Code(s): J44.9 - CHRONIC OBSTRUCTIVE PULMONARY DISEASE, UNSPECIFIED SNOMED Code(s): 67238276 (4) History of nephrectomy Current Visit: Yes Status: Chronic Code(s): Z90.5 - ACQUIRED ABSENCE OF KIDNEY SNOMED Code(s): 18177389770505 (5) History of prostate cancer Current Visit: Yes Status: Chronic Code(s): Z85.46 - PERSONAL HISTORY OF MALIGNANT NEOPLASM OF PROSTATE SNOMED Code(s): 248671766 (6) Hyperlipidemia Current Visit: Yes Status: Chronic Code(s): E78.5 - HYPERLIPIDEMIA, UNSPECIFIED SNOMED Code(s): 62905276 (7) Hypertension Current Visit: Yes Status: Chronic Code(s): I10 - ESSENTIAL (PRIMARY) HYPERTENSION SNOMED Code(s): 43756349 (8) Insulin dependent diabetes mellitus Current Visit: Yes Status: Chronic Code(s): E11.9 - TYPE 2 DIABETES MELLITUS WITHOUT COMPLICATIONS; Z79.4 - SUPERVISOR TESTING (CURRENT) USE OF INSULIN SNOMED Code(s): 12624324 (9) Left main coronary artery disease Current Visit: Yes Status: Chronic Code(s): I25.10 - ATHSCL HEART DISEASE OF [place] CORONARY ARTERY W/O ANG PCTRS SNOMED Code(s): 364471501 (10) Tobacco dependence in remission Current Visit: No Status: Resolved Code(s): F17.201 - NICOTINE DEPENDENCE, UNSPECIFIED, IN REMISSION SNOMED Code(s): 017535007 Plan: 1. Continue aspirin, statin, Plavix and beta laurie. Will increase beta laurie therapy as tolerated. 2. Continue Precedex for control of his anxiousness. 3. BiPAP management per pulmonology. Continue Zosyn managed by Dr. Aguillon. 4. Increase activity as tolerated. PT/OT/cardiac rehab following. 6. Routine PICC line care. 7. No diuretics today. 7. Bronchodilators per pulmonology. 8. Insulin per primary care service. 7. Will monitor daily labs and x-rays. 9. GI prophylaxis with Protonix. DVT prophylaxis with subcu heparin, SCDs. 10. Pain control with current medication regimen. 11. Continue Flomax for BPH. 12. Avoid nephrotoxic agents. Nephrology following. 13. Send pancultures due to his fever of 101.3F T-max 14. We will place a Dobbhoff tube today and continue vital high-protein to feedings for nutritional support. 15. Bronchoscopy bronchial washing culture results showing no organisms seen. 16. More recommendations to follow based on patient's clinical course. Time with Patient: Greater than 30
--- NOTE | 2018-08-25 10:28 | P.PN ---
Subjective Progress Note Date: 08/25/18 This is a 73-year-old male, patient of [facility]. He has a known past medical history of hypertension, diabetes mellitus, COPD, right nephrectomy 1970 and former smoker. Patient presents to the emergency room with complaints of chest pain with pressure and heaviness and diaphoresis. Symptoms had started yesterday. Patient was diagnosed with a non-ST elevated NV. Initial troponin 0.128 then 11.6 and 11.8. Patient was started on IV heparin cardiology was consulted. And patient underwent heart catheterization today. The heart catheterization shows total occlusion of the right coronary artery. Left main is 70-75% stenosed. The left anterior descending coronary artery has a mid lesion of 70% with thrombus. Obtuse marginal had 80-85% stenosis. Cardiology is recommending open-heart surgery. That her surgery has been consulted. They have already evaluated patient and surgery we'll possibly be on Friday. Pulmonary service has also been consulted. Patient is receiving IV fluids. He was slightly dehydrated on admission creatinine was 1.44. Unclear baseline creatinine. Creatinine in March 2018 was 1.3. Patient currently is chest pain-free. He reports that symptoms started after eating spicy soup and when he came back home he belched a large amount of gas and is relieved the pressure. He has been chest pain-free. Cardiology has placed him on IV heparin and Aggrastat. On 08/15/2018 patient was seen and examined he is alert and oriented 3 in no apparent distress he is sitting at the edge of the bed and he denies any chest pain there is no shortness of breath at rest he has occasional cough no palpitation no nausea or vomiting no abdominal pain no diarrhea no constipation no burning with urination no frequency or urgency and no hematuria. On 08/16/2018 patient was seen and examined on the telemetry floor he is alert and oriented 3 in no distress he denies any new episodes of chest pain he denies any other symptoms there is no fever or chills no headache or dizziness no shortness of breath no cough no nausea or vomiting no abdominal pain no diarrhea no burning was urination no frequency or urgency and no hematuria On 08/17/2018 Patient had coronary artery bypass graft [address] Hannah today. Patient currently intubated and on sedation. Patient remains in the intensive care unit. Patient currently on levophed for pressure support. On 08/18/2018 patient is currently postop day 1 and coronary artery bypass graft surgery. Patient is currently up in chair. Patient was extubated throughout night. Precedex drip has been DC'd per cardiovascular team. Patient remains sleepy but alert and arousable. At this time patient denies shortness of breath. Denies nausea vomiting or diarrhea. Denies any urinary burning. On 08/19/2018 patient is currently postop day 2 from coronary artery bypass graft. Per nursing staff patient is confused. Patient is also requiring BiPAP to maintain adequate oxygenation. Discussed case with Luna from the cardiovascular surgical team. Patient remains on Precedex drip. safety sitting at bedside. On 08/20/2018 patient is currently postop day 2 from coronary artery bypass graft. Patient remains on BiPAP for adequate oxygen. Precedex drip has been DC 'd. Patient does seem more alert. Patient followed closely by cardiovascular surgical team and critical care On 08/21/2018 patient got reintubated last night due to agitation and hypoxia. Patient is currently on propofol for sedation. Patient also started on Levophed for pressure support. Critical care team following closely. On 08/22/2018 patient got reintubated due to agitation and hypoxia. Patient is currently on propofol for sedation. Patient also started on Levophed for pressure support. Critical care team following closely. On 08/23/2018 patient is intubated sedated maintained on mechanical ventilation , he had a sedation holiday for about 1 hour at that time he was following commands. At this time he is back on sedation urine output is adequate. Hemoglobin is down to 7.2 On 08/24/2018 patient remains intubated on mechanical ventilation in the intensive care unit. Per nursing staff patient becomes agitated during sedation holidays. Hemoglobin decreasing to 7.1. Sedation holiday will be attempted again today. On 08/25/2018 patient recently extubated this a.m. Patient currently on BiPAP. Patient remains on Precedex drip. Patient is responsive to name. Patient having elevated temps at 101.3. Urine and blood cultures have been ordered per surgical vascular team. Bronchoscopy washing cultures showing no organisms at this time. Objective - Vital Signs Vital signs: Vital Signs Temp 101.0 F H 08/25/18 08:00 Pulse 71 08/25/18 09:00 Resp 22 08/25/18 09:00 BP 102/53 08/23/18 07:00 Pulse Ox 97 08/25/18 09:00 Intake & Output 08/24/18 08/25/18 08/25/18 18:59 06:59 18:59 Intake Total 2132.622 7113.845 250.774 Output Total 1100 468 155 Balance 3.771 614.845 95.774 Weight 107.8 kg 110.7 kg 110.7 kg Intake: IV 349 303 116 Lactated Ringers 1,000 ml 260 220 60 @ 20 mls/hr IV .Q24H [facility] Rx#:[id number] Piperacillin-Tazobactam 3 50 50 50 .375 gm In Dextrose/Water 1 50ml.bag @ 12.5 mls/hr IVPB Q8HR [facility] Rx#: [id number] pressure bags 39 33 6 Intake, IV Titration 304.771 159.845 14.774 Amount Dexmedetomidine/0.9% NaCl 115.254 159.845 14.774 (Pmx) 400 mcg In Empty Bag 1 bag @ Titrate IV . Q0M [facility] Rx#:[id number] Propofol 1,000 mg In 189.517 Empty Bag 1 bag @ Titrate IV .Q0M [facility] Rx#: [id number] Oral 120 Tube Feeding 450 620 0 Output: Urine 1100 468 155 Other: Voiding Method Indwelling Catheter Indwelling Catheter Indwelling Catheter # Bowel Movements 1 ABP, PAP, CO, CI - Last Documented Arterial Blood Pressure 98/44 Pulmonary Artery Pressure 40/20 Cardiac Output 6.7 Cardiac Index 3.3 - Exam Head normocephalic Neck supple Lungs patient currently on bipap. Breath sounds diminished bilaterally Heart regular rate and rhythm S1-S2, no rub or gallop Abdomen is soft nontender nondistended positive bowel sounds no hepatosplenomegaly Extremities no edema Neuro patient is following some commands and responds to name - Labs CBC & Chem 7: 08/25/18 04:28 08/25/18 04:28 Labs: Abnormal Lab Results - Last 24 Hours (Table) 08/21/18 08/24/18 08/24/18 Range/Units 13:23 12:04 16:04 RBC (4.30-5.90) m/uL Hgb (13.0-17.5) gm/dL Hct (39.0-53.0) % RDW (11.5-15.5) % Lymphocytes # (1.0-4.8) k/uL ABG pO2 (83-108) mmHg ABG HCO3 (21-25) mmol/L ABG Total CO2 (19-24) mmol/L Chloride (98-107) mmol/L BUN (9-20) mg/dL Creatinine (0.66-1.25) mg/dL Glucose (74-99) mg/dL POC Glucose (mg/dL) 233 H 231 H (75-99) mg/dL Calcium (8.4-10.2) mg/dL Magnesium (1.6-2.3) mg/dL Viral Test See Below H 08/24/18 08/24/18 08/25/18 Range/Units 20:18 23:37 04:15 RBC (4.30-5.90) m/uL Hgb (13.0-17.5) gm/dL Hct (39.0-53.0) % RDW (11.5-15.5) % Lymphocytes # (1.0-4.8) k/uL ABG pO2 (83-108) mmHg ABG HCO3 (21-25) mmol/L ABG Total CO2 (19-24) mmol/L Chloride (98-107) mmol/L BUN (9-20) mg/dL Creatinine (0.66-1.25) mg/dL Glucose (74-99) mg/dL POC Glucose (mg/dL) 238 H 214 H 223 H (75-99) mg/dL Calcium (8.4-10.2) mg/dL Magnesium (1.6-2.3) mg/dL Viral Test 08/25/18 08/25/18 08/25/18 Range/Units 04:28 04:28 04:54 RBC 2.32 L (4.30-5.90) m/uL Hgb 6.8 L* (13.0-17.5) gm/dL Hct 22.0 L (39.0-53.0) % RDW 15.8 H (11.5-15.5) % Lymphocytes # 0.5 L (1.0-4.8) k/uL ABG pO2 80 L (83-108) mmHg ABG HCO3 27 H (21-25) mmol/L ABG Total CO2 28 H (19-24) mmol/L Chloride 108 H (98-107) mmol/L BUN 53 H (9-20) mg/dL Creatinine 1.85 H (0.66-1.25) mg/dL Glucose 193 H (74-99) mg/dL POC Glucose (mg/dL) (75-99) mg/dL Calcium 8.0 L (8.4-10.2) mg/dL Magnesium 2.4 H (1.6-2.3) mg/dL Viral Test 08/25/18 Range/Units 08:19 RBC (4.30-5.90) m/uL Hgb (13.0-17.5) gm/dL Hct (39.0-53.0) % RDW (11.5-15.5) % Lymphocytes # (1.0-4.8) k/uL ABG pO2 (83-108) mmHg ABG HCO3 (21-25) mmol/L ABG Total CO2 (19-24) mmol/L Chloride (98-107) mmol/L BUN (9-20) mg/dL Creatinine (0.66-1.25) mg/dL Glucose (74-99) mg/dL POC Glucose (mg/dL) 213 H (75-99) mg/dL Calcium (8.4-10.2) mg/dL Magnesium (1.6-2.3) mg/dL Viral Test Microbiology - Last 24 Hours (Table) 08/21/18 13:23 Gram Stain - Final Bronchial Washings - Random Bronchial Washings Culture - Final Assessment and Plan Assessment: 1. Status post coronary artery bypass graft [address] Hannah postop day 4. The CHAHAL to LAD, SVG to PDA and Circ. Patient currently intubated and on sedation. Cardiovascular team and critical care team following closely. Patient currently up in chair. Patient has been extubated throughout night. hemoglobin 7.9. Discussed case with Luna per cardiovascular surgical team 2-D echo has been ordered due to diminished heart sounds. Hemoglobin 7.3. On 08/20 Patieht required reintubation due to extreme agitation and hypoxia. Critical care team following closely. PICC line placement ordered per cardiovascular surgery 2. Acute respiratory failure. Patient required reintubation last night 08/20. Chest x-ray completed showing right pleural effusion and bilateral lower lobe pulmonary infiltrates. There is probably mild heart failure. Endotracheal tube is in good position. Heart and lungs appear unchanged. Chest ultrasound completed showing small to tiny bilateral pleural effusions. Per pulmonary team No thoracentesis at this time. Status post bronchoscopy on 08/21/2018. Suspect right lower lobe collapse. Critical care and pulmonary services following closely. bronchial cultures pending. 08/25 patient extubated to BiPAP. 3. Acute Non-ST elevated myocardial infarction: Heart catheterization showing multivessel coronary artery disease with thrombus in the LAD. Patient has been seen by vascular surgery and planning for open heart surgery on Friday. Continue IV heparin and Aggrastat per cardiology. Continue with IV fluids. Pulmonary service also consulted for preop clearance. 4. Acute kidney injury: Unclear patient has chronic kidney disease. Creatinine in March 2018 was 1.3. Continue with IV fluid hydration. Creatinine 1.42. Continue to monitor closely. Creatinine continued to increase to 1.60. Discussed case with Luna gardner from cardiovascular surgery will continue to monitor closely at this point. Creatinine improving to 1.40 and bun 41. Nephrology following. Continue Lasix 40 mg IV daily per nephrology. Creatinine 1.85 and Bun 53 5. Essential hypertension 6. Diabetes mellitus insulin-dependent. Hemoglobin A1c 7.9. Patient on sliding scale insulin. Lantus 10 units has been added 7. History of COPD: No evidence of exacerbation. continue albuterol nebulizer as needed 8. BPH continue Flomax 9. Atelectasis noted on chest x-ray order incentive spirometer 10. Obesity BMI 39.4 kg 11. Possible acute ICU psychosis and delirium. Patient remains on Precedex. Critical care team following closely. On 08/20 patient required reintubation. patient extubated. Patient remains on Precedex drip 12. Expected acute blood loss anemia secondary to surgery. Hemoglobin 6.8. Cardiovascular surgery following closely. We'll continue to monitor closely 13. Elevated temperature. Patient febrile with 11.3. Blood and urine cultures have been ordered per cardiovascular team DVT prophylaxis heparin and GI prophylaxis Protonix I performed an examination of the patient and discussed their management with the Nurse Practitioner. I have reviewed the Nurse Practitioner's notes and agree with the documented findings and plan of care
[2018-08-25 10:38] LABS: Appearance,Urine Cloudy (Clear); Bilirubin,Urine Negative (Negative); Blood,Urine Small (Negative); Color,Urine Yellow; Glucose,Urine (UA) Negative (Negative); Ketones,Urine Negative (Negative); Leukocyte Esterase,Urine Negative (Negative); Mucus,Urine Rare /hpf; Nitrite,Urine Negative (Negative); Protein,Urine Trace (Negative); RBC,Urine 4 /hpf (0-5); Specific Gravity,Urine 1.021 (1.001-1.035); Squamous Epithelial Cell,Urine <1 /hpf (0-4); Urobilinogen,Urine <2.0 mg/dL (<2.0); WBC,Urine 1 /hpf (0-5)
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
[2018-08-25 12:03] LABS: Glucose,Whole Blood 193 mg/dL (75-99)
[2018-08-25] MEDS: LACTATED RINGERS 1,000 ML IV SCH (12:05)
[2018-08-25] MEDS ORDERED: DEXAMETHASONE SOD PHOSPHATE 4 MG/ML 1 ML VIAL IV STA (13:52)
--- NOTE | 2018-08-25 14:15 | P.PN ---
Subjective Patient extubated but a CPAP mask and still at alert/oriented Temperature 100.2F, pulse rate in the 60s Reduced breath sounds bilaterally Heart sounds distant Abdomen soft Impression Coronary artery disease, multivessel status post coronary bypass grafting Acute respiratory failure requiring reintubation. Extubated and on a CPAP Paske suggest continuous post CT surgery care as well as ICU care and continue current cardiac medications Watch respiratory status Prognosis is guarded Objective - Vital Signs Vital signs: Vital Signs Temp 100.2 F H 08/25/18 12:00 Pulse 67 08/25/18 13:00 Resp 21 08/25/18 13:00 BP 114/48 08/25/18 11:00 Pulse Ox 97 08/25/18 13:00 Intake & Output 08/24/18 08/25/18 08/25/18 18:59 06:59 18:59 Intake Total 6165.494 0776.845 365.774 Output Total 1100 468 435 Balance 3.771 614.845 -69.226 Weight 107.8 kg 110.7 kg 110.7 kg Intake: IV 349 303 231 Lactated Ringers 1,000 ml 260 220 160 @ 20 mls/hr IV .Q24H [facility] Rx#:[id number] Piperacillin-Tazobactam 3 50 50 50 .375 gm In Dextrose/Water 1 50ml.bag @ 12.5 mls/hr IVPB Q8HR [facility] Rx#: [id number] pressure bags 39 33 21 Intake, IV Titration 304.771 159.845 14.774 Amount Dexmedetomidine/0.9% NaCl 115.254 159.845 14.774 (Pmx) 400 mcg In Empty Bag 1 bag @ Titrate IV . Q0M [facility] Rx#:[id number] Propofol 1,000 mg In 189.517 Empty Bag 1 bag @ Titrate IV .Q0M [facility] Rx#: [id number] Oral 120 Tube Feeding 450 620 0 Output: Urine 1100 468 435 Other: Voiding Method Indwelling Catheter Indwelling Catheter Indwelling Catheter # Bowel Movements 1 ABP, PAP, CO, CI - Last Documented Arterial Blood Pressure 127/48 Pulmonary Artery Pressure 40/20 Cardiac Output 6.7 Cardiac Index 3.3 - Labs CBC & Chem 7: 08/25/18 04:28 08/25/18 04:28 Labs: Abnormal Lab Results - Last 24 Hours (Table) 0908/24/18 08/24/18 Range/Units 13:23 16:04 20:18 RBC (4.30-5.90) m/uL Hgb (13.0-17.5) gm/dL Hct (39.0-53.0) % RDW (11.5-15.5) % Lymphocytes # (1.0-4.8) k/uL ABG pO2 (83-108) mmHg ABG HCO3 (21-25) mmol/L ABG Total CO2 (19-24) mmol/L Chloride (98-107) mmol/L BUN (9-20) mg/dL Creatinine (0.66-1.25) mg/dL Glucose (74-99) mg/dL POC Glucose (mg/dL) 231 H 238 H (75-99) mg/dL Calcium (8.4-10.2) mg/dL Magnesium (1.6-2.3) mg/dL Urine Protein (Negative) Urine Blood (Negative) Urine Mucus (None) /hpf Viral Test See Below H 08/24/18 08/25/18 08/25/18 Range/Units 23:37 04:15 04:28 RBC 2.32 L (4.30-5.90) m/uL Hgb 6.8 L* (13.0-17.5) gm/dL Hct 22.0 L (39.0-53.0) % RDW 15.8 H (11.5-15.5) % Lymphocytes # 0.5 L (1.0-4.8) k/uL ABG pO2 (83-108) mmHg ABG HCO3 (21-25) mmol/L ABG Total CO2 (19-24) mmol/L Chloride (98-107) mmol/L BUN (9-20) mg/dL Creatinine (0.66-1.25) mg/dL Glucose (74-99) mg/dL POC Glucose (mg/dL) 214 H 223 H (75-99) mg/dL Calcium (8.4-10.2) mg/dL Magnesium (1.6-2.3) mg/dL Urine Protein (Negative) Urine Blood (Negative) Urine Mucus (None) /hpf Viral Test 08/25/18 08/25/18 08/25/18 Range/Units 04:28 04:54 08:19 RBC (4.30-5.90) m/uL Hgb (13.0-17.5) gm/dL Hct (39.0-53.0) % RDW (11.5-15.5) % Lymphocytes # (1.0-4.8) k/uL ABG pO2 80 L (83-108) mmHg ABG HCO3 27 H (21-25) mmol/L ABG Total CO2 28 H (19-24) mmol/L Chloride 108 H (98-107) mmol/L BUN 53 H (9-20) mg/dL Creatinine 1.85 H (0.66-1.25) mg/dL Glucose 193 H (74-99) mg/dL POC Glucose (mg/dL) 213 H (75-99) mg/dL Calcium 8.0 L (8.4-10.2) mg/dL Magnesium 2.4 H (1.6-2.3) mg/dL Urine Protein (Negative) Urine Blood (Negative) Urine Mucus (None) /hpf Viral Test 08/25/18 08/25/18 Range/Units 09:54 12:02 RBC (4.30-5.90) m/uL Hgb (13.0-17.5) gm/dL Hct (39.0-53.0) % RDW (11.5-15.5) % Lymphocytes # (1.0-4.8) k/uL ABG pO2 (83-108) mmHg ABG HCO3 (21-25) mmol/L ABG Total CO2 (19-24) mmol/L Chloride (98-107) mmol/L BUN (9-20) mg/dL Creatinine (0.66-1.25) mg/dL Glucose (74-99) mg/dL POC Glucose (mg/dL) 193 H (75-99) mg/dL Calcium (8.4-10.2) mg/dL Magnesium (1.6-2.3) mg/dL Urine Protein Trace H (Negative) Urine Blood Small H (Negative) Urine Mucus Rare H (None) /hpf Viral Test Microbiology - Last 24 Hours (Table) 08/21/18 13:23 Gram Stain - Final Bronchial Washings - Random Bronchial Washings Culture - Final
[2018-08-25 14:48] LABS: ABG Base Excess 1.8 mmol/L; ABG HCO3 28 mmol/L (21-25); ABG PCO2 51 mmHg (35-45); ABG PH 7.34 (7.35-7.45); ABG PO2 95 mmHg (83-108); ABG TCO2 29 mmol/L (19-24)
[2018-08-25 15:25] LABS: Glucose,Whole Blood 147 mg/dL (75-99)
[2018-08-25 20:36] LABS: Glucose,Whole Blood 197 mg/dL (75-99)
[2018-08-25] MEDS: TAMSULOSIN 0.4 MG CAP.ER.24H PO SCH (21:04)
[2018-08-25] MEDS: SENNOSIDES-DOCUSATE SODIUM 1 EACH TAB PO SCH (21:04)
[2018-08-25] MEDS: INSULIN DETEMIR 100 UNIT/ML 10 ML VIAL SQ SCH (21:05)
[2018-08-25 23:15] LABS: Glucose,Whole Blood 208 mg/dL (75-99)
[2018-08-26] MEDS: PIPERACILLIN-TAZOBACTAM 3.375 GM in DEXTROSE/WATER 1 50ML.BAG IVPB SCH ×3 (00:09→16:23)
[2018-08-26] MEDS: HEPARIN SODIUM,PORCINE 5,000 UNIT/ML 1 ML VIAL SQ SCH ×3 (00:09→16:22)
[2018-08-26] MEDS: INSULIN ASPART 100 UNIT/ML 1 ML 10 ML VIAL SQ SCH ×6 (00:09→21:35)
[2018-08-26] MEDS: HYDROmorphone 1 MG/ML 1 ML SYRINGE IVP PRN ×5 (01:34→22:34)
[2018-08-26 04:46] LABS: Glucose,Whole Blood 175 mg/dL (75-99)
[2018-08-26 05:00] LABS: Basophils % (A) 0 %; Eosinophils % (A) 0 %; HCT 23.3 % (39.0-53.0); HGB 7.1 gm/dL (13.0-17.5); Hypochromasia Marked; Lymphocytes # (A) 0.4 k/uL (1.0-4.8); Lymphocytes % (A) 5 %; MCH 29.3 pg (25.0-35.0); MCHC 30.7 g/dL (31.0-37.0); MCV 95.5 fL (80.0-100.0); Mean Platelet Volume 8.5; Monocytes # (A) 0.3 k/uL (0-1.0); Monocytes % (A) 4 %; Neutrophils # (A) 6.8 k/uL (1.3-7.7); Neutrophils % (A) 90 %; Platelet Count 272 k/uL (150-450); RBC 2.44 m/uL (4.30-5.90); RDW 15.8 % (11.5-15.5); WBC 7.6 k/uL (3.8-10.6)
[2018-08-26 05:11] LABS: Calcium 8.2 mg/dL (8.4-10.2); Magnesium 2.7 mg/dL (1.6-2.3); Potassium 4.8 mmol/L (3.5-5.1)
[2018-08-26] MEDS: hydrALAZINE HCL 20 MG/ML 1 ML VIAL IVP PRN ×2 (05:18→11:19)
--- NOTE | 2018-08-26 07:14 | XR ---
EXAMINATION TYPE: XR chest 1V portable DATE OF EXAM: 08/26/2018 HISTORY: Shortness of breath. COMPARISON: 08/25/2018 TECHNIQUE: Single view of the chest is submitted. FINDINGS: Endotracheal and NG tubes have been removed. Left-sided PICC line is unchanged in position. Right bas ilar opacity is stable. Continued cardiomegaly with pulmonary venous congestion. Hilar and mediastinal structures are within normal limits. Degenerative changes are seen of the dorsal spine. IMPRESSION: 1. Stable appearance of the chest. 2. Removal of endotracheal and NG tubes.
[2018-08-26] MEDS: IPRATROPIUM-ALBUTEROL 3 ML NEB INHALATION SCH ×4 (07:39→19:19)
[2018-08-26] MEDS ORDERED: RACEPINEPHRINE 2.25% NEB 0.5 ML NEBU INHALATION STA (08:26)
[2018-08-26] MEDS ORDERED: LIDOCAINE 2% (PF) 20 MG/ML 2 ML AMP INHALATION ONE (08:26)
[2018-08-26] MEDS ORDERED: SODIUM CHLORIDE 0.9% NEBULIZ 3 ML INHALATION PRN (08:28)
[2018-08-26] MEDS ORDERED: DEXAMETHASONE SOD PHOSPHATE 4 MG/ML 1 ML VIAL IV SCH (08:30)
[2018-08-26] MEDS: LORazepam 2 MG/ML INJ IV PRN ×3 (08:32→22:34)
--- NOTE | 2018-08-26 08:35 | P.PN ---
Subjective Progress Note Date: 08/26/18 Principal diagnosis: Symptomatic multivessel coronary artery disease, awaiting surgical revascularization. This is a 73-year-old white male patient of Dr. Joy Reagan, who presented emergency department on 08/13/2018 at 1840 evaluation of chest pain, associated with diaphoresis. The pain was non-radiating, and occurred after eating some spicy soup, patient was belching, and had some nausea. No vomiting. EKG showed some ST and T-wave abnormalities in the inferior, anterior, and lateral leads with T-wave inversion. Troponins were elevated at 0.128, 11.8, 11.8 and 9.270, patient was ruled in for non-ST elevated NH. Patient was placed on IV heparin, aspirin, Coreg, nitroglycerin and he underwent cardiac catheterization this afternoon with Dr. ALISHA Harper which showed a distal lesion of the left main of 70% before bifurcation into LAD and circumflex with calcification, 60% narrowing in the LAD at the origin of the first diagonal branch, 70% stenosis in the LAD at the origin of the second diagonal branch with probable thrombus, first obtuse marginal with 80-90% stenosis proximally, and 60% narrowing in the circumflex after the first obtuse marginal, total occlusion of the proximal RCA with some collateral circulation from the left system to the right. Patient has past medical history of coronary artery disease, COPD, diabetes mellitus type 2, hypertension, previous nicotine dependence, history of right nephrectomy in 1969 and chronic kidney disease. Patient was recommended to undergo coronary revascularization and cardiothoracic surgery has been consulted. We are seeing this patient for pulmonary evaluation. On 08/15/2018, the patient has no specific complaints. He is not having any chest pain. Resting comfortably in bed. Bedside spirometry was noted and there is no significant obstructive airway limitation. Chest x-ray was reviewed and showed some elevation of the right hemidiaphragm. Otherwise there is some subsegmental atelectatic changes in the lung bases. He is an ex- smoker. He is an obese male patient with a BMI of 39.0. No previous history of DVT or pulmonary embolism. No home O2. He is an ex-smoker. Overall performance status is good. On 08/16/2018 patient seen in follow-up on selective care unit. He sitting up on bed, in no acute distress, denies any shortness of breath. No chest pain, he is on heparin drip. Room air pulse ox is 94%, vital signs are stable. Lung sounds are clear. Patient is possibly scheduled for surgical revascularization surgery on 08/17/2018. No acute complaints overnight. Sinus rhythm. On 08/17/2018 patient seen in follow-up in the intensive care unit, he is status post three-vessel coronary artery bypass grafting, with CHAHAL to LAD, SVG to the PDA, and circumflex. Patient is currently sedated, intubated, on mechanical ventilator, and current vent settings are SIMV mode with a rate of 12 , tidal volume 500, FiO2 of 50% and PEEP of 10. IV drips include LR at a rate of 40, levothyroid at a rate of 10 mics per minute, Primacor is at 0.2 mics per kilo per minute, Precedex is at 0.2 mics per kilo per hour. Patient received 1500 of crystalloids and 1500 mL of 5% albumin, in addition to Cell Saver. Caret -Eliazar catheter is in place, with PA pressures of 50/32, CVP of 25, cardiac output of 7.3, and cardiac index of 3.6. Patient has 2 mediastinal chest tubes and left pleural chest tubes with small amount of sanguinous output. AV epicardial wires are in place, patient is currently being paced at her mode of AAI with a rate of 80 BPM. The blood work showed WBC of 8.6, hemoglobin of 8.5 , INR 1.2, sodium of 140, potassium is 4.8, chloride is 110, BUN of 21, creatinine is 1.09. Blood gas showed pO2 of 79, pCO2 of 53, pH of 7.25. Vent settings were adjusted, and rate was increased to IMV with a rate of 18 breaths per minute. Suero catheter is in place, and patient is producing 30-50 ML per hour. On 08/26/2018 patient seen again in follow-up in the intensive care unit. He was extubated yesterday on 08/25/2018 to BiPAP. He remains on BiPAP support, currently at pressures 10 and 5, and 50%. Post extubation patient was noted to be a bit stridorous, his voice is hoarse, and patient has persistent nonproductive cough. He was given 2 doses of IV Decadron yesterday. This morning patient is awake and alert, oriented to self, and place. Disoriented to time. He is still having the persistent cough, and his voice remains hoarse. He was given a trial of nasal cannula, and he was quite anxious, tachypneic. He could not complete his bedside swallow evaluation in view of persistent coughing, and tachypnea. We will give the patient additional doses of Decadron, Precedex was discontinued yesterday, she remains on Seroquel 50 mg twice daily, will add small doses of Ativan 3 times a day as needed for anxiety. He is in sinus rhythm currently a bit tachycardic, with a heart rate of 115. Lung sounds are positive for a few rhonchi, no significant wheezing on today's exam. This chest x-ray was reviewed, and showed stable findings, with right basilar opacity, pulmonary venous congestion, and cardiomegaly. Today's labs were reviewed, WBC 7.6, hemoglobin 7.1, sodium is 148, chloride is 113, BUN is 60, creatinine is 1.85. Patient's maintenance IV fluids is lactated Ringer's at 20 mL per hour. Switch the IV fluids to D5W at a rate of 75 ML per hour. Objective - Vital Signs Vital signs: Vital Signs Temp 100.5 F H 08/26/18 04:00 Pulse 90 08/26/18 07:56 Resp 25 H 08/26/18 07:40 BP 166/84 08/26/18 06:00 Pulse Ox 97 08/26/18 07:00 Intake & Output 08/25/18 08/26/18 08/26/18 18:59 06:59 18:59 Intake Total 507.774 296 Output Total 715 960 Balance -207.226 -664 Weight 110.7 kg 108 kg Intake: IV 373 296 Lactated Ringers 1,000 ml 240 260 @ 20 mls/hr IV .Q24H [facility] Rx#:[id number] Piperacillin-Tazobactam 3 100 .375 gm In Dextrose/Water 1 50ml.bag @ 12.5 mls/hr IVPB Q8HR [facility] Rx#: [id number] pressure bags 33 36 Intake, IV Titration 14.774 Amount Dexmedetomidine/0.9% NaCl 14.774 (Pmx) 400 mcg In Empty Bag 1 bag @ Titrate IV . Q0M [facility] Rx#:[id number] Oral 120 Tube Feeding 0 Output: Urine 715 960 Other: Voiding Method Indwelling Catheter Indwelling Catheter # Bowel Movements 3 ABP, PAP, CO, CI - Last Documented Arterial Blood Pressure 147/57 Pulmonary Artery Pressure 40/20 Cardiac Output 6.7 Cardiac Index 3.3 - Exam GENERAL EXAM: Sedated obese 73-year-old white male comfortable in no apparent distress. Currently on BiPAP support, with pressures 10 of 5, and 50%. Patient is having frequent persistent cough HEAD: Normocephalic/atraumatic. EYES: Normal reaction of pupils, equal size. Conjunctiva pink, sclera white. NOSE: Clear with pink turbinates. MOUTH: Missing teeth THROAT: No erythema or exudates. NECK: No masses, no JVD, no thyroid enlargement, no adenopathy. CHEST: No chest wall deformity. Symmetrical expansion. Sternal incision is clean dry and intact, covered with a surgical dressing, 2 mediastinal and one left pleural chest tube with the small amount of sanguinous output. Epicardial AV pacemaker wires are present LUNGS: Equal air entry with coarse breath sounds, but no wheeze, rhonchi or dullness. CVS: Regular rate and rhythm, normal S1 and S2, no gallops, no murmurs, no rubs. Slightly tachycardic rate of 115 BPM ABDOMEN: Soft, nontender. No hepatosplenomegaly, normal bowel sounds, no guarding or rigidity. EXTREMITIES: No clubbing, no edema, no cyanosis, 2+ pulses and upper and lower extremities. Bilateral lower extremities are Hiren wrapped, SCDs are present MUSCULOSKELETAL: Muscle strength and tone normal. SPINE: No scoliosis or deformity SKIN: No rashes CENTRAL NERVOUS SYSTEM: Sedated. No focal deficits, tone is normal in all 4 extremities. PSYCHIATRIC: Able to assess sedated - Labs CBC & Chem 7: 08/26/18 04:50 08/26/18 04:50 Labs: Abnormal Lab Results - Last 24 Hours (Table) 08/25/18 08/25/18 08/25/18 Range/Units 08:18 09:54 12:02 RBC (4.30-5.90) m/uL Hgb (13.0-17.5) gm/dL Hct (39.0-53.0) % MCHC (31.0-37.0) g/dL RDW (11.5-15.5) % Lymphocytes # (1.0-4.8) k/uL ABG pH 7.34 L (7.35-7.45) ABG pCO2 51 H (35-45) mmHg ABG HCO3 28 H (21-25) mmol/L ABG Total CO2 29 H (19-24) mmol/L ABG O2 Saturation 98.0 H (94-97) % Sodium (137-145) mmol/L Chloride (98-107) mmol/L BUN (9-20) mg/dL Creatinine (0.66-1.25) mg/dL Glucose (74-99) mg/dL POC Glucose (mg/dL) 193 H (75-99) mg/dL Calcium (8.4-10.2) mg/dL Magnesium (1.6-2.3) mg/dL Urine Protein Trace H (Negative) Urine Blood Small H (Negative) Urine Mucus Rare H (None) /hpf 08/25/18 08/25/18 08/25/18 Range/Units 15:24 20:35 23:14 RBC (4.30-5.90) m/uL Hgb (13.0-17.5) gm/dL Hct (39.0-53.0) % MCHC (31.0-37.0) g/dL RDW (11.5-15.5) % Lymphocytes # (1.0-4.8) k/uL ABG pH (7.35-7.45) ABG pCO2 (35-45) mmHg ABG HCO3 (21-25) mmol/L ABG Total CO2 (19-24) mmol/L ABG O2 Saturation (94-97) % Sodium (137-145) mmol/L Chloride (98-107) mmol/L BUN (9-20) mg/dL Creatinine (0.66-1.25) mg/dL Glucose (74-99) mg/dL POC Glucose (mg/dL) 147 H 197 H 208 H (75-99) mg/dL Calcium (8.4-10.2) mg/dL Magnesium (1.6-2.3) mg/dL Urine Protein (Negative) Urine Blood (Negative) Urine Mucus (None) /hpf 08/26/18 08/26/18 08/26/18 Range/Units 04:43 04:50 04:50 RBC 2.44 L (4.30-5.90) m/uL Hgb 7.1 L (13.0-17.5) gm/dL Hct 23.3 L (39.0-53.0) % MCHC 30.7 L (31.0-37.0) g/dL RDW 15.8 H (11.5-15.5) % Lymphocytes # 0.4 L (1.0-4.8) k/uL ABG pH (7.35-7.45) ABG pCO2 (35-45) mmHg ABG HCO3 (21-25) mmol/L ABG Total CO2 (19-24) mmol/L ABG O2 Saturation (94-97) % Sodium 148 H (137-145) mmol/L Chloride 113 H (98-107) mmol/L BUN 60 H (9-20) mg/dL Creatinine 1.85 H (0.66-1.25) mg/dL Glucose 163 H (74-99) mg/dL POC Glucose (mg/dL) 175 H (75-99) mg/dL Calcium 8.2 L (8.4-10.2) mg/dL Magnesium 2.7 H (1.6-2.3) mg/dL Urine Protein (Negative) Urine Blood (Negative) Urine Mucus (None) /hpf Microbiology - Last 24 Hours (Table) 08/25/18 09:54 Urine Culture - Preliminary Urine,Catheterized 08/21/18 13:23 Gram Stain - Final Bronchial Washings - Random Bronchial Washings Culture - Final Assessment and Plan Plan: Assessment: Postop day #9, status post three-vessel bypass grafting Status post extubation and reintubation on August 20. Patient was extubated again on 08/25/2018 Postoperative ventilator management Non-ST segment elevation myocardial infarction ICU psychosis and delirium Status post bronchoscopy on August 21 for right lower lobe collapse Diabetes mellitus COPD History of chronic tobacco dependence History of prostate cancer History of hyperlipidemia Benign essential hypertension Previous nephrectomy Plan: Patient was given a trial of nasal cannula, has quite persistent nonproductive cough, still sounds a bit hoarse. We will give the patient for additional doses of Decadron 6 mg every 6 hours. We'll give a small dose of Ativan 0.5 mg 3 times a day is needed for anxiety. Continue BiPAP support for now, continue nebulized bronchodilators. We'll switch IV fluids from LR to D5W at a rate of 75 ML per hour. Today's labs and chest x-ray have been reviewed. Patient remains hemodynamically stable, nonoliguric. We'll have to address his tradition as soon as he is able to tolerate nasal cannula trial and have a bedside swallow evaluation. We'll continue to follow. I performed a history & physical examination of the patient and discussed their management with my nurse practitioner, Randi Root. I reviewed the nurse practitioner's note and agree with the documented findings and plan of care. Lung sounds are positive for coarse breath sounds. The findings and the impression was discussed with the patient. I attest to the documentation by the nurse practitioner. Critical care time is over 30 minutes Time with Patient: Greater than 30
[2018-08-26 08:36] LABS: Glucose,Whole Blood 163 mg/dL (75-99)
[2018-08-26] MEDS: ASCORBIC ACID 500 MG TAB PO SCH ×2 (08:44→17:32)
[2018-08-26] MEDS: FERROUS SULFATE ORAL ELIXIR 300 MG/5 ML CUP PO SCH ×2 (08:44→17:32)
[2018-08-26] MEDS: ASPIRIN 325 MG TAB PO SCH (08:49)
[2018-08-26] MEDS: CLOPIDOGREL 75 MG TAB PO SCH (08:49)
[2018-08-26] MEDS: METOPROLOL TARTRATE 12.5 MG TAB PO SCH (08:49)
[2018-08-26] MEDS: ATORVASTATIN 40 MG TAB PO SCH (08:49)
[2018-08-26] MEDS: PANTOPRAZOLE 40 MG/10 ML VIAL IVP SCH (08:52)
[2018-08-26] MEDS: QUEtiapine 50 MG TAB PO SCH ×2 (08:52→22:50)
[2018-08-26] MEDS: DEXTROSE 5% IN WATER 1,000 ML IV SCH ×2 (08:53→23:13)
[2018-08-26] MEDS: DEXAMETHASONE SOD PHOSPHATE 10 MG/ML 1 ML VIAL IV SCH ×5 (08:59→22:41)
--- NOTE | 2018-08-26 09:46 | P.PN ---
Subjective Progress Note Date: 08/26/18 Principal diagnosis: Non-ST elevation myocardial infarction, impaired left ventricular systolic function with EF 20-25%. History of hypertension, hypertriglyceridemia insulin- dependent diabetes mellitus with preoperative hemoglobin A1c 7.1%, COPD with preoperative FEV1 87% of predicted, previous tobacco dependence, prostate cancer with radiation, right nephrectomy, obesity, BPH. POD #9 urgent coronary artery bypass grafting 3 vessels, left internal mammary artery to left anterior descending artery, reverse saphenous vein graft to obtuse marginal artery, reverse saphenous vein graft to posterior descending artery, endoscopic vein harvest of the left greater saphenous vein, epi-aortic ultrasound, intraoperative transesophageal echocardiogram, closure of sternum using titanium plates and Ava cable system. Postoperative acute blood loss anemia, an expected outcome of surgery secondary to cardiopulmonary bypass and hemodilution. Postoperative delirium, an unexpected outcome. Postoperative acute respiratory distress requiring reintubation, prolonged mechanical ventilation, an unexpected outcome. Postoperative right lower lobe collapse, secondary to mucus plugging, an unexpected outcome POD #5 bronchoscopy, bronchial alveolar lavage of the right middle lobe, right lower lobe, and washings of both lungs performed by Dr. Almodovar. Patient is currently sitting up in bed in no acute distress. Was extubated yesterday to BiPAP. Remained on BiPAP on the right, did have an episode of respiratory distress this morning which was treated with racemic epinephrine and Decadron IV with resolution of distress. He is alert and oriented to person and time, unsure where he is but does know that he had open heart surgery. He is cooperative. Objective - Vital Signs Vital signs: Vital Signs Temp 98.4 F 08/26/18 08:00 Pulse 96 08/26/18 09:00 Resp 20 08/26/18 09:00 BP 166/84 08/26/18 06:00 Pulse Ox 95 08/26/18 09:00 Intake & Output 08/25/18 08/26/18 08/26/18 18:59 06:59 18:59 Intake Total 507.774 296 151 Output Total 715 960 225 Balance -207.226 -664 -74 Weight 110.7 kg 108 kg Intake: IV 373 296 76 Lactated Ringers 1,000 ml 240 260 20 @ 20 mls/hr IV .Q24H COUNT INCLUDES THE [facility] Rx#:[id number] Piperacillin-Tazobactam 3 100 50 .375 gm In Dextrose/Water 1 50ml.bag @ 12.5 mls/hr IVPB Q8HR [facility] Rx#: [id number] pressure bags 33 36 6 Intake, IV Titration 14.774 75 Amount Dexmedetomidine/0.9% NaCl 14.774 (Pmx) 400 mcg In Empty Bag 1 bag @ Titrate IV . Q0M [facility] Rx#:[id number] Dextrose 5% in Water 1, 75 000 ml @ 75 mls/hr IV . [id number] [facility] Rx#:[id number] Oral 120 Tube Feeding 0 Output: Urine 715 960 225 Other: Voiding Method Indwelling Catheter Indwelling Catheter # Bowel Movements 3 ABP, PAP, CO, CI - Last Documented Arterial Blood Pressure 155/82 Pulmonary Artery Pressure 40/20 Cardiac Output 6.7 Cardiac Index 3.3 - Constitutional General appearance: Present: cooperative, no acute distress, obese - Respiratory Details: Lungs sounds diminished bilaterally. Respirations even, nonlabored. Currently on BiPAP with FiO2 of 2%, IPAP 10, APAP 5 with oxygen saturation 98%. When patient has a coughing fit he does sound a bit stridorous. - Cardiovascular Details: S1, S2 present. Regular rate and rhythm, sinus rhythm to sinus tach on telemetry. A/V epicardial pacemaker wires present, grounded. Palpable peripheral pulses bilaterally. Trace generalized edema present. No calf pain or tenderness noted. Right radial arterial line, left brachial PICC line present. Heart hugger, antiembolism stockings, SCDs present. - Gastrointestinal Gastrointestinal Comment(s): Abdomen soft, nontender, nondistended. Active bowel sounds present 4 quadrants. Positive bowel movement. Currently unable to perform swallow eval so he remains NPO. - Genitourinary Genitourinary Comment(s): Suero present draining clear, yellow urine. Output overnight 30-80 mL per hour , 765 mL last 8 hours. - Integumentary Integumentary Comment(s): Skin is warm and dry with evidence of good perfusion. Anterior chest incision well approximated and covered with dry intact dressing. Left lower extremity EVH site well approximated, ecchymosis present, expected. - Neurologic Neurologic: Present: CNII-XII intact - Musculoskeletal Musculoskeletal: Present: strength equal bilaterally - Psychiatric Psychiatric Comment(s): A & O x 2-3. Psychiatric: Present: appropriate affect, intact judgment & insight - Allied health notes Allied health notes reviewed: nursing - Labs CBC & Chem 7: 08/26/18 04:50 08/26/18 04:50 Labs: Abnormal Lab Results - Last 24 Hours (Table) 08/25/18 08/25/18 08/25/18 Range/Units 08:18 09:54 12:02 RBC (4.30-5.90) m/uL Hgb (13.0-17.5) gm/dL Hct (39.0-53.0) % MCHC (31.0-37.0) g/dL RDW (11.5-15.5) % Lymphocytes # (1.0-4.8) k/uL ABG pH 7.34 L (7.35-7.45) ABG pCO2 51 H (35-45) mmHg ABG HCO3 28 H (21-25) mmol/L ABG Total CO2 29 H (19-24) mmol/L ABG O2 Saturation 98.0 H (94-97) % Sodium (137-145) mmol/L Chloride (98-107) mmol/L BUN (9-20) mg/dL Creatinine (0.66-1.25) mg/dL Glucose (74-99) mg/dL POC Glucose (mg/dL) 193 H (75-99) mg/dL Calcium (8.4-10.2) mg/dL Magnesium (1.6-2.3) mg/dL Urine Protein Trace H (Negative) Urine Blood Small H (Negative) Urine Mucus Rare H (None) /hpf 08/25/18 08/25/18 08/25/18 Range/Units 15:24 20:35 23:14 RBC (4.30-5.90) m/uL Hgb (13.0-17.5) gm/dL Hct (39.0-53.0) % MCHC (31.0-37.0) g/dL RDW (11.5-15.5) % Lymphocytes # (1.0-4.8) k/uL ABG pH (7.35-7.45) ABG pCO2 (35-45) mmHg ABG HCO3 (21-25) mmol/L ABG Total CO2 (19-24) mmol/L ABG O2 Saturation (94-97) % Sodium (137-145) mmol/L Chloride (98-107) mmol/L BUN (9-20) mg/dL Creatinine (0.66-1.25) mg/dL Glucose (74-99) mg/dL POC Glucose (mg/dL) 147 H 197 H 208 H (75-99) mg/dL Calcium (8.4-10.2) mg/dL Magnesium (1.6-2.3) mg/dL Urine Protein (Negative) Urine Blood (Negative) Urine Mucus (None) /hpf 08/26/18 08/26/18 08/26/18 Range/Units 04:43 04:50 04:50 RBC 2.44 L (4.30-5.90) m/uL Hgb 7.1 L (13.0-17.5) gm/dL Hct 23.3 L (39.0-53.0) % MCHC 30.7 L (31.0-37.0) g/dL RDW 15.8 H (11.5-15.5) % Lymphocytes # 0.4 L (1.0-4.8) k/uL ABG pH (7.35-7.45) ABG pCO2 (35-45) mmHg ABG HCO3 (21-25) mmol/L ABG Total CO2 (19-24) mmol/L ABG O2 Saturation (94-97) % Sodium 148 H (137-145) mmol/L Chloride 113 H (98-107) mmol/L BUN 60 H (9-20) mg/dL Creatinine 1.85 H (0.66-1.25) mg/dL Glucose 163 H (74-99) mg/dL POC Glucose (mg/dL) 175 H (75-99) mg/dL Calcium 8.2 L (8.4-10.2) mg/dL Magnesium 2.7 H (1.6-2.3) mg/dL Urine Protein (Negative) Urine Blood (Negative) Urine Mucus (None) /hpf 08/26/18 Range/Units 08:34 RBC (4.30-5.90) m/uL Hgb (13.0-17.5) gm/dL Hct (39.0-53.0) % MCHC (31.0-37.0) g/dL RDW (11.5-15.5) % Lymphocytes # (1.0-4.8) k/uL ABG pH (7.35-7.45) ABG pCO2 (35-45) mmHg ABG HCO3 (21-25) mmol/L ABG Total CO2 (19-24) mmol/L ABG O2 Saturation (94-97) % Sodium (137-145) mmol/L Chloride (98-107) mmol/L BUN (9-20) mg/dL Creatinine (0.66-1.25) mg/dL Glucose (74-99) mg/dL POC Glucose (mg/dL) 163 H (75-99) mg/dL Calcium (8.4-10.2) mg/dL Magnesium (1.6-2.3) mg/dL Urine Protein (Negative) Urine Blood (Negative) Urine Mucus (None) /hpf Microbiology - Last 24 Hours (Table) 08/25/18 09:54 Urine Culture - Preliminary Urine,Catheterized 08/21/18 13:23 Gram Stain - Final Bronchial Washings - Random Bronchial Washings Culture - Final - Imaging and Cardiology Chest x-ray: report reviewed, image reviewed Assessment and Plan (1) CAD (coronary artery disease) Current Visit: Yes Status: Chronic Code(s): I25.10 - ATHSCL HEART DISEASE OF [place] CORONARY ARTERY W/O ANG PCTRS SNOMED Code(s): 34042939 (2) Left main coronary artery disease Current Visit: Yes Status: Chronic Code(s): I25.10 - ATHSCL HEART DISEASE OF [place] CORONARY ARTERY W/O ANG PCTRS SNOMED Code(s): 210743053 (3) Hypertension Current Visit: Yes Status: Chronic Code(s): I10 - ESSENTIAL (PRIMARY) HYPERTENSION SNOMED Code(s): 17579132 (4) Hyperlipidemia Current Visit: Yes Status: Chronic Code(s): E78.5 - HYPERLIPIDEMIA, UNSPECIFIED SNOMED Code(s): 78053643 (5) Insulin dependent diabetes mellitus Current Visit: Yes Status: Chronic Code(s): E11.9 - TYPE 2 DIABETES MELLITUS WITHOUT COMPLICATIONS; Z79.4 - NURSING HOME (CURRENT) USE OF INSULIN SNOMED Code(s): 94937343 (6) Tobacco dependence in remission Current Visit: No Status: Resolved Code(s): F17.201 - NICOTINE DEPENDENCE, UNSPECIFIED, IN REMISSION SNOMED Code(s): 984387646 (7) COPD (chronic obstructive pulmonary disease) Current Visit: Yes Status: Chronic Code(s): J44.9 - CHRONIC OBSTRUCTIVE PULMONARY DISEASE, UNSPECIFIED SNOMED Code(s): 12996250 (8) History of nephrectomy Current Visit: Yes Status: Chronic Code(s): Z90.5 - ACQUIRED ABSENCE OF KIDNEY SNOMED Code(s): 23169391000845 (9) Family history of heart disease Current Visit: Yes Status: Chronic Code(s): Z82.49 - FAMILY HX OF ISCHEM HEART DIS AND OTH DIS OF THE CIRC SYS SNOMED Code(s): 819992419 (10) History of prostate cancer Current Visit: Yes Status: Chronic Code(s): Z85.46 - PERSONAL HISTORY OF MALIGNANT NEOPLASM OF PROSTATE SNOMED Code(s): 079009314 (11) NSTEMI (non-ST elevated myocardial infarction) Current Visit: Yes Status: Acute Code(s): I21.4 - NON-ST ELEVATION (NSTEMI) MYOCARDIAL INFARCTION SNOMED Code(s): 063358791 Plan: 1. Continue aspirin, statin, Plavix, beta laurie. Will increase beta laurie therapy as tolerated. Continue as needed Apresoline IV for hypertension. 2. Wean O2 as tolerated. BiPAP management per pulmonology. 3. Increase activity. PT/OT/cardiac rehab following. 4. Will place [place] for nutritional support. 5. Bronchodilators, steroids, antibiotics per pulmonology. 6. Insulin per primary care service. 7. Will monitor daily labs and x-rays. Will follow culture results. Bronchial washings negative. 8. GI prophylaxis with Protonix. DVT prophylaxis with subcu heparin, SCDs. 9. Pain control with current medication regimen. 10. Continue Flomax for BPH. 11. Avoid nephrotoxic agents. 12. More recommendations to follow. Time with Patient: Greater than 30
--- NOTE | 2018-08-26 10:21 | P.PN ---
Subjective Patient will more alert today. On a BiPAP mask. Increased respiratory rate Denies chest discomfort Vitals stable pulse rate in the 90s Breath sounds are reduced bilaterally Heart sounds are normal S1-S2 is normal Central obesity Skin is warm Impression acute respiratory failure post CABG. Reintubated and react extubated and currently on BiPAP mask and slowly but steadily getting better Continue current management and current medications continue postop as well as ICU care Objective - Vital Signs Vital signs: Vital Signs Temp 98.4 F 08/26/18 08:00 Pulse 96 08/26/18 09:00 Resp 20 08/26/18 09:00 BP 166/84 08/26/18 06:00 Pulse Ox 95 08/26/18 09:00 Intake & Output 08/25/18 08/26/18 08/26/18 18:59 06:59 18:59 Intake Total 507.774 296 151 Output Total 715 960 225 Balance -207.226 -664 -74 Weight 110.7 kg 108 kg Intake: IV 373 296 76 Lactated Ringers 1,000 ml 240 260 20 @ 20 mls/hr IV .Q24H [facility] Rx#:[id number] Piperacillin-Tazobactam 3 100 50 .375 gm In Dextrose/Water 1 50ml.bag @ 12.5 mls/hr IVPB Q8HR [facility] Rx#: [id number] pressure bags 33 36 6 Intake, IV Titration 14.774 75 Amount Dexmedetomidine/0.9% NaCl 14.774 (Pmx) 400 mcg In Empty Bag 1 bag @ Titrate IV . Q0M [facility] Rx#:[id number] Dextrose 5% in Water 1, 75 000 ml @ 75 mls/hr IV . [id number] [facility] Rx#:[id number] Oral 120 Tube Feeding 0 Output: Urine 715 960 225 Other: Voiding Method Indwelling Catheter Indwelling Catheter # Bowel Movements 3 ABP, PAP, CO, CI - Last Documented Arterial Blood Pressure 155/82 Pulmonary Artery Pressure 40/20 Cardiac Output 6.7 Cardiac Index 3.3 - Labs CBC & Chem 7: 08/26/18 04:50 08/26/18 04:50 Labs: Abnormal Lab Results - Last 24 Hours (Table) 08/25/18 08/25/18 08/25/18 Range/Units 08:18 09:54 12:02 RBC (4.30-5.90) m/uL Hgb (13.0-17.5) gm/dL Hct (39.0-53.0) % MCHC (31.0-37.0) g/dL RDW (11.5-15.5) % Lymphocytes # (1.0-4.8) k/uL ABG pH 7.34 L (7.35-7.45) ABG pCO2 51 H (35-45) mmHg ABG HCO3 28 H (21-25) mmol/L ABG Total CO2 29 H (19-24) mmol/L ABG O2 Saturation 98.0 H (94-97) % Sodium (137-145) mmol/L Chloride (98-107) mmol/L BUN (9-20) mg/dL Creatinine (0.66-1.25) mg/dL Glucose (74-99) mg/dL POC Glucose (mg/dL) 193 H (75-99) mg/dL Calcium (8.4-10.2) mg/dL Magnesium (1.6-2.3) mg/dL Urine Protein Trace H (Negative) Urine Blood Small H (Negative) Urine Mucus Rare H (None) /hpf 08/25/18 08/25/18 08/25/18 Range/Units 15:24 20:35 23:14 RBC (4.30-5.90) m/uL Hgb (13.0-17.5) gm/dL Hct (39.0-53.0) % MCHC (31.0-37.0) g/dL RDW (11.5-15.5) % Lymphocytes # (1.0-4.8) k/uL ABG pH (7.35-7.45) ABG pCO2 (35-45) mmHg ABG HCO3 (21-25) mmol/L ABG Total CO2 (19-24) mmol/L ABG O2 Saturation (94-97) % Sodium (137-145) mmol/L Chloride (98-107) mmol/L BUN (9-20) mg/dL Creatinine (0.66-1.25) mg/dL Glucose (74-99) mg/dL POC Glucose (mg/dL) 147 H 197 H 208 H (75-99) mg/dL Calcium (8.4-10.2) mg/dL Magnesium (1.6-2.3) mg/dL Urine Protein (Negative) Urine Blood (Negative) Urine Mucus (None) /hpf 08/26/18 08/26/18 08/26/18 Range/Units 04:43 04:50 04:50 RBC 2.44 L (4.30-5.90) m/uL Hgb 7.1 L (13.0-17.5) gm/dL Hct 23.3 L (39.0-53.0) % MCHC 30.7 L (31.0-37.0) g/dL RDW 15.8 H (11.5-15.5) % Lymphocytes # 0.4 L (1.0-4.8) k/uL ABG pH (7.35-7.45) ABG pCO2 (35-45) mmHg ABG HCO3 (21-25) mmol/L ABG Total CO2 (19-24) mmol/L ABG O2 Saturation (94-97) % Sodium 148 H (137-145) mmol/L Chloride 113 H (98-107) mmol/L BUN 60 H (9-20) mg/dL Creatinine 1.85 H (0.66-1.25) mg/dL Glucose 163 H (74-99) mg/dL POC Glucose (mg/dL) 175 H (75-99) mg/dL Calcium 8.2 L (8.4-10.2) mg/dL Magnesium 2.7 H (1.6-2.3) mg/dL Urine Protein (Negative) Urine Blood (Negative) Urine Mucus (None) /hpf 08/26/18 Range/Units 08:34 RBC (4.30-5.90) m/uL Hgb (13.0-17.5) gm/dL Hct (39.0-53.0) % MCHC (31.0-37.0) g/dL RDW (11.5-15.5) % Lymphocytes # (1.0-4.8) k/uL ABG pH (7.35-7.45) ABG pCO2 (35-45) mmHg ABG HCO3 (21-25) mmol/L ABG Total CO2 (19-24) mmol/L ABG O2 Saturation (94-97) % Sodium (137-145) mmol/L Chloride (98-107) mmol/L BUN (9-20) mg/dL Creatinine (0.66-1.25) mg/dL Glucose (74-99) mg/dL POC Glucose (mg/dL) 163 H (75-99) mg/dL Calcium (8.4-10.2) mg/dL Magnesium (1.6-2.3) mg/dL Urine Protein (Negative) Urine Blood (Negative) Urine Mucus (None) /hpf Microbiology - Last 24 Hours (Table) 08/25/18 09:54 Urine Culture - Preliminary Urine,Catheterized 08/21/18 13:23 Gram Stain - Final Bronchial Washings - Random Bronchial Washings Culture - Final
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
--- NOTE | 2018-08-26 12:08 | P.PN ---
Subjective Progress Note Date: 08/26/18 This is a 73-year-old male, patient of [facility]. He has a known past medical history of hypertension, diabetes mellitus, COPD, right nephrectomy 1970 and former smoker. Patient presents to the emergency room with complaints of chest pain with pressure and heaviness and diaphoresis. Symptoms had started yesterday. Patient was diagnosed with a non-ST elevated MS. Initial troponin 0.128 then 11.6 and 11.8. Patient was started on IV heparin cardiology was consulted. And patient underwent heart catheterization today. The heart catheterization shows total occlusion of the right coronary artery. Left main is 70-75% stenosed. The left anterior descending coronary artery has a mid lesion of 70% with thrombus. Obtuse marginal had 80-85% stenosis. Cardiology is recommending open-heart surgery. That her surgery has been consulted. They have already evaluated patient and surgery we'll possibly be on Friday. Pulmonary service has also been consulted. Patient is receiving IV fluids. He was slightly dehydrated on admission creatinine was 1.44. Unclear baseline creatinine. Creatinine in March 2018 was 1.3. Patient currently is chest pain-free. He reports that symptoms started after eating spicy soup and when he came back home he belched a large amount of gas and is relieved the pressure. He has been chest pain-free. Cardiology has placed him on IV heparin and Aggrastat. On 08/15/2018 patient was seen and examined he is alert and oriented 3 in no apparent distress he is sitting at the edge of the bed and he denies any chest pain there is no shortness of breath at rest he has occasional cough no palpitation no nausea or vomiting no abdominal pain no diarrhea no constipation no burning with urination no frequency or urgency and no hematuria. On 08/16/2018 patient was seen and examined on the telemetry floor he is alert and oriented 3 in no distress he denies any new episodes of chest pain he denies any other symptoms there is no fever or chills no headache or dizziness no shortness of breath no cough no nausea or vomiting no abdominal pain no diarrhea no burning was urination no frequency or urgency and no hematuria On 08/17/2018 Patient had coronary artery bypass graft [address] Hannah today. Patient currently intubated and on sedation. Patient remains in the intensive care unit. Patient currently on levophed for pressure support. On 08/18/2018 patient is currently postop day 1 and coronary artery bypass graft surgery. Patient is currently up in chair. Patient was extubated throughout night. Precedex drip has been DC'd per cardiovascular team. Patient remains sleepy but alert and arousable. At this time patient denies shortness of breath. Denies nausea vomiting or diarrhea. Denies any urinary burning. On 08/19/2018 patient is currently postop day 2 from coronary artery bypass graft. Per nursing staff patient is confused. Patient is also requiring BiPAP to maintain adequate oxygenation. Discussed case with Luna from the cardiovascular surgical team. Patient remains on Precedex drip. safety sitting at bedside. On 08/20/2018 patient is currently postop day 2 from coronary artery bypass graft. Patient remains on BiPAP for adequate oxygen. Precedex drip has been DC 'd. Patient does seem more alert. Patient followed closely by cardiovascular surgical team and critical care On 08/21/2018 patient got reintubated last night due to agitation and hypoxia. Patient is currently on propofol for sedation. Patient also started on Levophed for pressure support. Critical care team following closely. On 08/22/2018 patient got reintubated due to agitation and hypoxia. Patient is currently on propofol for sedation. Patient also started on Levophed for pressure support. Critical care team following closely. On 08/23/2018 patient is intubated sedated maintained on mechanical ventilation , he had a sedation holiday for about 1 hour at that time he was following commands. At this time he is back on sedation urine output is adequate. Hemoglobin is down to 7.2 On 08/24/2018 patient remains intubated on mechanical ventilation in the intensive care unit. Per nursing staff patient becomes agitated during sedation holidays. Hemoglobin decreasing to 7.1. Sedation holiday will be attempted again today. On 08/25/2018 patient recently extubated this a.m. Patient currently on BiPAP. Patient remains on Precedex drip. Patient is responsive to name. Patient having elevated temps at 101.3. Urine and blood cultures have been ordered per surgical vascular team. Bronchoscopy washing cultures showing no organisms at this time. On 08/26/2018 patient remains extubated on BiPAP. Patient is responsive to name in follow some commands. Long acting insulin increased to 20 units daily. Urine and blood cultures pending. Patient still having low-grade temps 100.4. Objective - Vital Signs Vital signs: Vital Signs Temp 98.4 F 08/26/18 08:00 Pulse 96 08/26/18 11:00 Resp 30 H 08/26/18 11:00 BP 166/84 08/26/18 06:00 Pulse Ox 96 08/26/18 11:00 Intake & Output 08/25/18 08/26/18 08/26/18 18:59 06:59 18:59 Intake Total 507.774 296 307 Output Total 715 960 385 Balance -207.226 -664 -78 Weight 110.7 kg 108 kg Intake: IV 373 296 82 Lactated Ringers 1,000 ml 240 260 20 @ 20 mls/hr IV .Q24H ALEXEY Rx#:[id number] Piperacillin-Tazobactam 3 100 50 .375 gm In Dextrose/Water 1 50ml.bag @ 12.5 mls/hr IVPB Q8HR ALEXEY Rx#: [id number] pressure bags 33 36 12 Intake, IV Titration 14.774 225 Amount Dexmedetomidine/0.9% NaCl 14.774 (Pmx) 400 mcg In Empty Bag 1 bag @ Titrate IV . Q0M ALEXEY Rx#:[id number] Dextrose 5% in Water 1, 225 000 ml @ 75 mls/hr IV . [id number] ALEXEY Rx#:[id number] Oral 120 Tube Feeding 0 Output: Urine 715 960 385 Other: Voiding Method Indwelling Catheter Indwelling Catheter Indwelling Catheter # Bowel Movements 3 ABP, PAP, CO, CI - Last Documented Arterial Blood Pressure 170/69 Pulmonary Artery Pressure 40/20 Cardiac Output 6.7 Cardiac Index 3.3 - Exam Head normocephalic Neck supple Lungs patient currently on bipap. Breath sounds diminished bilaterally Heart regular rate and rhythm S1-S2, no rub or gallop Abdomen is soft nontender nondistended positive bowel sounds no hepatosplenomegaly Extremities no edema Neuro patient is following some commands and responds to name - Labs CBC & Chem 7: 08/26/18 04:50 08/26/18 04:50 Labs: Abnormal Lab Results - Last 24 Hours (Table) 08/25/18 08/25/18 08/25/18 Range/Units 08:18 15:24 20:35 RBC (4.30-5.90) m/uL Hgb (13.0-17.5) gm/dL Hct (39.0-53.0) % MCHC (31.0-37.0) g/dL RDW (11.5-15.5) % Lymphocytes # (1.0-4.8) k/uL ABG pH 7.34 L (7.35-7.45) ABG pCO2 51 H (35-45) mmHg ABG HCO3 28 H (21-25) mmol/L ABG Total CO2 29 H (19-24) mmol/L ABG O2 Saturation 98.0 H (94-97) % Sodium (137-145) mmol/L Chloride (98-107) mmol/L BUN (9-20) mg/dL Creatinine (0.66-1.25) mg/dL Glucose (74-99) mg/dL POC Glucose (mg/dL) 147 H 197 H (75-99) mg/dL Calcium (8.4-10.2) mg/dL Magnesium (1.6-2.3) mg/dL 08/25/18 08/26/18 08/26/18 Range/Units 23:14 04:43 04:50 RBC (4.30-5.90) m/uL Hgb (13.0-17.5) gm/dL Hct (39.0-53.0) % MCHC (31.0-37.0) g/dL RDW (11.5-15.5) % Lymphocytes # (1.0-4.8) k/uL ABG pH (7.35-7.45) ABG pCO2 (35-45) mmHg ABG HCO3 (21-25) mmol/L ABG Total CO2 (19-24) mmol/L ABG O2 Saturation (94-97) % Sodium 148 H (137-145) mmol/L Chloride 113 H (98-107) mmol/L BUN 60 H (9-20) mg/dL Creatinine 1.85 H (0.66-1.25) mg/dL Glucose 163 H (74-99) mg/dL POC Glucose (mg/dL) 208 H 175 H (75-99) mg/dL Calcium 8.2 L (8.4-10.2) mg/dL Magnesium 2.7 H (1.6-2.3) mg/dL 08/26/18 08/26/18 Range/Units 04:50 08:34 RBC 2.44 L (4.30-5.90) m/uL Hgb 7.1 L (13.0-17.5) gm/dL Hct 23.3 L (39.0-53.0) % MCHC 30.7 L (31.0-37.0) g/dL RDW 15.8 H (11.5-15.5) % Lymphocytes # 0.4 L (1.0-4.8) k/uL ABG pH (7.35-7.45) ABG pCO2 (35-45) mmHg ABG HCO3 (21-25) mmol/L ABG Total CO2 (19-24) mmol/L ABG O2 Saturation (94-97) % Sodium (137-145) mmol/L Chloride (98-107) mmol/L BUN (9-20) mg/dL Creatinine (0.66-1.25) mg/dL Glucose (74-99) mg/dL POC Glucose (mg/dL) 163 H (75-99) mg/dL Calcium (8.4-10.2) mg/dL Magnesium (1.6-2.3) mg/dL Microbiology - Last 24 Hours (Table) 08/25/18 09:54 Urine Culture - Preliminary Urine,Catheterized 08/21/18 13:23 Gram Stain - Final Bronchial Washings - Random Bronchial Washings Culture - Final Assessment and Plan Assessment: 1. Status post coronary artery bypass graft [address] Hannah postop day 4. The CHAHAL to LAD, SVG to PDA and Circ. Patient currently intubated and on sedation. Cardiovascular team and critical care team following closely. Patient currently up in chair. Patient has been extubated throughout night. hemoglobin 7.9. Discussed case with Luna per cardiovascular surgical team 2-D echo has been ordered due to diminished heart sounds. Hemoglobin 7.3. On 08/20 Patieht required reintubation due to extreme agitation and hypoxia. Critical care team following closely. PICC line placement ordered per cardiovascular surgery 2. Acute respiratory failure. Patient required reintubation last night 08/20. Chest x-ray completed showing right pleural effusion and bilateral lower lobe pulmonary infiltrates. There is probably mild heart failure. Endotracheal tube is in good position. Heart and lungs appear unchanged. Chest ultrasound completed showing small to tiny bilateral pleural effusions. Per pulmonary team No thoracentesis at this time. Status post bronchoscopy on 08/21/2018. Suspect right lower lobe collapse. Critical care and pulmonary services following closely. bronchial cultures pending. 08/25 patient extubated to BiPAP. 3. Acute Non-ST elevated myocardial infarction: Heart catheterization showing multivessel coronary artery disease with thrombus in the LAD. Patient has been seen by vascular surgery and planning for open heart surgery on Friday. Continue IV heparin and Aggrastat per cardiology. Continue with IV fluids. Pulmonary service also consulted for preop clearance. 4. Acute kidney injury: Unclear patient has chronic kidney disease. Creatinine in March 2018 was 1.3. Continue with IV fluid hydration. Creatinine 1.42. Continue to monitor closely. Creatinine continued to increase to 1.60. Discussed case with Luna gardner from cardiovascular surgery will continue to monitor closely at this point. Creatinine improving to 1.40 and bun 41. Nephrology following. Continue Lasix 40 mg IV daily per nephrology. Creatinine 1.85 and Bun 60. 5. Essential hypertension 6. Diabetes mellitus insulin-dependent. Hemoglobin A1c 7.9. Patient on sliding scale insulin. Lantus 10 units has been added. Lantus has been increased to 20 units 7. History of COPD: No evidence of exacerbation. continue albuterol nebulizer as needed 8. BPH continue Flomax 9. Atelectasis noted on chest x-ray order incentive spirometer 10. Obesity BMI 39.4 kg 11. Possible acute ICU psychosis and delirium. Patient remains on Precedex. Critical care team following closely. On 08/20 patient required reintubation. patient extubated. Patient remains on Precedex drip 12. Expected acute blood loss anemia secondary to surgery. Hemoglobin 6.8. Cardiovascular surgery following closely. We'll continue to monitor closely 13. Elevated temperature. Patient febrile with 11.3. Blood and urine cultures have been ordered per cardiovascular team. WBC improving to 7.6 DVT prophylaxis heparin and GI prophylaxis Protonix I performed an examination of the patient and discussed their management with the Nurse Practitioner. I have reviewed the Nurse Practitioner's notes and agree with the documented findings and plan of care
--- NOTE | 2018-08-26 12:24 | CDI ---
Last Revision, October 2017 Documentation Clarification Form Date: 08/26/2018 12:01:37 PM From: Jania ERICA Mckeon, CCDS Admit Date: 08/13/2018 8:25:00 PM Patient Name: Cristo Perez Visit Number: [id number] Discharge Date: ATTENTION: The Clinical Documentation Specialists (CDI) and [facility] Coding Staff appreciate your assistance in clarifying documentation. Please respond to the clarification below the line at the bottom and electronically sign. The CDI & [facility] Coding staff will review the response and follow-up if needed. Please note: Queries are made part of the Legal Health Record. If you have any questions, please contact the author of this message via ITS. Dr. Brandi Jordan: Patient presented with NSTEMI and is status post CABG with reintubation/ extubation due to acute hypoxic respiratory failure. Per the 08/26 cardiothoracic progress note: "Non-ST elevation myocardial infarction, impaired left ventricular systolic function with EF 20-25%. History of hypertension, hypertriglyceridemia insulin-dependent diabetes mellitus, COPD , obesity & BPH. Per your progress notes: probably mild heart failure. Clinical Indicators: Trace generalized edema documented starting on 08/18. 08/20 PN: 1+ bipedal edema. VS: 08/13: P 70, R 20 (sob), BP 169/79, 98 RA; 08/26: VS: R 30, BP 170/69, PO 96 50% BiPAP ECHO 08/14: Left ventricular systolic function is severely impaired with EF between 20-25%. CXR 08/13: No heart failure, no pleural effusion. 08/17: Heart is not enlarged. : Stable cardiomegaly & mild central vascular congestion with elevated right hemidiaphragm & small right pleural effusion. 08/22: Worsening right basilar airspace disease. Cardiomegaly, bilateral effusions >right. 08/28 CXR: Cardiomegaly. Bilateral pleural effusions. Treatment: Preoperatively 08/17 received IV Mag Sulfate, IV Kcl, IV Albumin, IV Heparin, IV Insulin. First dose of IV Lasix received 08/18, daily 08/22, 08/23, . Routine postop CABG care. Required re-intubation on 08/20 due to acute hypoxic respiratory failure, now extubated. In your professional opinion, can you please clarify the acuity of CHF if present & known? Systolic Heart Failure: Acute Chronic Acute on Chronic Unable to Determine Other, please specify Per cardiovascular surgery postoperative right lower lobe collapse, secondary to mucus plugging, an unexpected outcome MTDD
[2018-08-26 12:38] LABS: Glucose,Whole Blood 165 mg/dL (75-99)
[2018-08-26] MEDS: METOPROLOL TARTRATE 5 MG/5 ML VIAL IVP SCH ×3 (14:06→18:46)
[2018-08-26] MEDS: ASPIRIN 300 MG SUPP RECTAL SCH (14:07)
[2018-08-26 16:12] LABS: Glucose,Whole Blood 211 mg/dL (75-99)
[2018-08-26] MEDS: AMIODARONE 450 MG in DEXTROSE 5% IN WATER 250 ML IV PRN ×2 (20:35)
[2018-08-26 20:41] LABS: Glucose,Whole Blood 234 mg/dL (75-99)
[2018-08-26] MEDS: INSULIN DETEMIR 100 UNIT/ML 10 ML VIAL SQ SCH (21:36)
[2018-08-26 22:42] LABS: Albumin 2.9 g/dL (3.5-5.0); Calcium 8.4 mg/dL (8.4-10.2); Magnesium 2.9 mg/dL (1.6-2.3); Phosphorus 3.7 mg/dL (2.5-4.5); Potassium 4.9 mmol/L (3.5-5.1); Total Bilirubin 0.5 mg/dL (0.2-1.3); Total Protein 5.8 g/dL (6.3-8.2)
[2018-08-26] MEDS: SENNOSIDES-DOCUSATE SODIUM 1 EACH TAB PO SCH (22:50)
[2018-08-26] MEDS: TAMSULOSIN 0.4 MG CAP.ER.24H PO SCH (22:50)
[2018-08-27 00:05] LABS: Glucose,Whole Blood 259 mg/dL (75-99)
[2018-08-27] MEDS: HEPARIN SODIUM,PORCINE 5,000 UNIT/ML 1 ML VIAL SQ SCH ×3 (00:24→15:12)
[2018-08-27] MEDS: INSULIN ASPART 100 UNIT/ML 1 ML 10 ML VIAL SQ SCH ×6 (00:25→21:58)
[2018-08-27 00:26] LABS: Glucose,Whole Blood 247 mg/dL (75-99)
[2018-08-27] MEDS: PIPERACILLIN-TAZOBACTAM 3.375 GM in DEXTROSE/WATER 1 50ML.BAG IVPB SCH ×3 (00:29→15:12)
[2018-08-27] MEDS: DEXTROSE 5% IN WATER 100 ML with AMIODARONE 150 MG IV PRN (00:53)
[2018-08-27] MEDS: METOPROLOL TARTRATE 5 MG/5 ML VIAL IVP SCH ×2 (01:26→06:36)
[2018-08-27] MEDS: HYDROmorphone 1 MG/ML 1 ML SYRINGE IVP PRN ×4 (03:50→21:46)
[2018-08-27 04:00] LABS: Glucose,Whole Blood 196 mg/dL (75-99)
[2018-08-27 05:02] LABS: Basophils % (A) 0 %; Eosinophils % (A) 0 %; HCT 25.2 % (39.0-53.0); HGB 7.6 gm/dL (13.0-17.5); Hypochromasia Marked; Lymphocytes # (A) 0.4 k/uL (1.0-4.8); Lymphocytes % (A) 5 %; MCH 29.3 pg (25.0-35.0); MCHC 30.1 g/dL (31.0-37.0); MCV 97.3 fL (80.0-100.0); Macrocytosis Slight; Mean Platelet Volume 8.2; Monocytes # (A) 0.3 k/uL (0-1.0); Monocytes % (A) 3 %; Neutrophils # (A) 7.6 k/uL (1.3-7.7); Neutrophils % (A) 91 %; Platelet Count 331 k/uL (150-450); RBC 2.59 m/uL (4.30-5.90); WBC 8.4 k/uL (3.8-10.6)
[2018-08-27] MEDS: AMIODARONE 450 MG in DEXTROSE 5% IN WATER 250 ML IV PRN ×2 (05:02)
[2018-08-27 05:18] LABS: Calcium 8.5 mg/dL (8.4-10.2); Phosphorus 3.7 mg/dL (2.5-4.5); Potassium 4.7 mmol/L (3.5-5.1)
[2018-08-27] MEDS: IPRATROPIUM-ALBUTEROL 3 ML NEB INHALATION SCH ×4 (07:21→20:00)
[2018-08-27 08:33] LABS: Glucose,Whole Blood 191 mg/dL (75-99)
[2018-08-27] MEDS: PANTOPRAZOLE 40 MG/10 ML VIAL IVP SCH (08:33)
[2018-08-27] MEDS: LORazepam 2 MG/ML INJ IV PRN ×3 (08:43→23:01)
--- NOTE | 2018-08-27 08:47 | XR ---
EXAMINATION TYPE: XR chest 1V portable DATE OF EXAM: 08/27/2018 Comparison: 08/26/2018 Clinical History: 73-year-old male post cardiac surgery Findings: Median sternotomy wires and sternal plate fixation is present. Heart mild to moderately enlarged. Dif fuse interstitial and vascular prominence with moderate right and small left pleural effusions with a djacent opacity, worsened on the left. Impression: 1. Correlate for CHF with pulmonary vascular congestion/mild interstitial edema, stable to slightly w orsened. 2. Continued moderate right and increasing [id number] left pleural effusions with adjacent ate lectasis and/or consolidation.
--- NOTE | 2018-08-27 08:57 | P.PN ---
Subjective Progress Note Date: 08/27/18 Principal diagnosis: Symptomatic multivessel coronary artery disease, awaiting surgical revascularization. This is a 73-year-old white male patient of Dr. Joy Reagan, who presented emergency department on 08/13/2018 at 1840 evaluation of chest pain, associated with diaphoresis. The pain was non-radiating, and occurred after eating some spicy soup, patient was belching, and had some nausea. No vomiting. EKG showed some ST and T-wave abnormalities in the inferior, anterior, and lateral leads with T-wave inversion. Troponins were elevated at 0.128, 11.8, 11.8 and 9.270, patient was ruled in for non-ST elevated CA. Patient was placed on IV heparin, aspirin, Coreg, nitroglycerin and he underwent cardiac catheterization this afternoon with Dr. ALISHA Harper which showed a distal lesion of the left main of 70% before bifurcation into LAD and circumflex with calcification, 60% narrowing in the LAD at the origin of the first diagonal branch, 70% stenosis in the LAD at the origin of the second diagonal branch with probable thrombus, first obtuse marginal with 80-90% stenosis proximally, and 60% narrowing in the circumflex after the first obtuse marginal, total occlusion of the proximal RCA with some collateral circulation from the left system to the right. Patient has past medical history of coronary artery disease, COPD, diabetes mellitus type 2, hypertension, previous nicotine dependence, history of right nephrectomy in 1969 and chronic kidney disease. Patient was recommended to undergo coronary revascularization and cardiothoracic surgery has been consulted. We are seeing this patient for pulmonary evaluation. On 08/15/2018, the patient has no specific complaints. He is not having any chest pain. Resting comfortably in bed. Bedside spirometry was noted and there is no significant obstructive airway limitation. Chest x-ray was reviewed and showed some elevation of the right hemidiaphragm. Otherwise there is some subsegmental atelectatic changes in the lung bases. He is an ex- smoker. He is an obese male patient with a BMI of 39.0. No previous history of DVT or pulmonary embolism. No home O2. He is an ex-smoker. Overall performance status is good. On 08/16/2018 patient seen in follow-up on selective care unit. He sitting up on bed, in no acute distress, denies any shortness of breath. No chest pain, he is on heparin drip. Room air pulse ox is 94%, vital signs are stable. Lung sounds are clear. Patient is possibly scheduled for surgical revascularization surgery on 08/17/2018. No acute complaints overnight. Sinus rhythm. On 08/17/2018 patient seen in follow-up in the intensive care unit, he is status post three-vessel coronary artery bypass grafting, with CHAHAL to LAD, SVG to the PDA, and circumflex. Patient is currently sedated, intubated, on mechanical ventilator, and current vent settings are SIMV mode with a rate of 12 , tidal volume 500, FiO2 of 50% and PEEP of 10. IV drips include LR at a rate of 40, levothyroid at a rate of 10 mics per minute, Primacor is at 0.2 mics per kilo per minute, Precedex is at 0.2 mics per kilo per hour. Patient received 1500 of crystalloids and 1500 mL of 5% albumin, in addition to Cell Saver. [place] -El[place]ar catheter is in place, with PA pressures of 50/32, CVP of 25, cardiac output of 7.3, and cardiac index of 3.6. Patient has 2 mediastinal chest tubes and left pleural chest tubes with small amount of sanguinous output. AV epicardial wires are in place, patient is currently being paced at her mode of AAI with a rate of 80 BPM. The blood work showed WBC of 8.6, hemoglobin of 8.5 , INR 1.2, sodium of 140, potassium is 4.8, chloride is 110, BUN of 21, creatinine is 1.09. Blood gas showed pO2 of 79, pCO2 of 53, pH of 7.25. Vent settings were adjusted, and rate was increased to IMV with a rate of 18 breaths per minute. Suero catheter is in place, and patient is producing 30-50 ML per hour. On 08/26/2018 patient seen again in follow-up in the intensive care unit. He was extubated yesterday on 08/25/2018 to BiPAP. He remains on BiPAP support, currently at pressures 10 and 5, and 50%. Post extubation patient was noted to be a bit stridorous, his voice is hoarse, and patient has persistent nonproductive cough. He was given 2 doses of IV Decadron yesterday. This morning patient is awake and alert, oriented to self, and place. Disoriented to time. He is still having the persistent cough, and his voice remains hoarse. He was given a trial of nasal cannula, and he was quite anxious, tachypneic. He could not complete his bedside swallow evaluation in view of persistent coughing, and tachypnea. We will give the patient additional doses of Decadron, Precedex was discontinued yesterday, she remains on Seroquel 50 mg twice daily, will add small doses of Ativan 3 times a day as needed for anxiety. He is in sinus rhythm currently a bit tachycardic, with a heart rate of 115. Lung sounds are positive for a few rhonchi, no significant wheezing on today's exam. This chest x-ray was reviewed, and showed stable findings, with right basilar opacity, pulmonary venous congestion, and cardiomegaly. Today's labs were reviewed, WBC 7.6, hemoglobin 7.1, sodium is 148, chloride is 113, BUN is 60, creatinine is 1.85. Patient's maintenance IV fluids is lactated Ringer's at 20 mL per hour. Switch the IV fluids to D5W at a rate of 75 ML per hour. On 08/27/2018 patient seen in follow-up in the intensive care unit, he remains on BiPAP support, currently with pressures of 12 and 5, and FiO2 of 60%. He is awake and alert, oriented 2, to person and place. Seems a bit less anxious today, his voice is less hoarse. Patient was given 4 more doses of IV Decadron and racemic epinephrine.. Lung sounds are essentially clear, with minimal crackles at the bilateral bases. Today's checks chest x-ray has been reviewed and showed pulmonary vascular congestion/mild interstitial edema which has slightly worsened, and moderate right and increasing small to moderate left pleural effusions with adjacent atelectasis. CT surgery has ordered a dose of IV Lasix today, we will give the patient a trial on nasal cannula. Today's labs were reviewed, Rabia BC is 8.4, hemoglobin is 7.6, sodium is 145, potassium is 4.7, chloride is 111, BUN is 68, and creatinine is 1.8. Patient had some bouts of diarrhea yesterday, C. diff was negative. Patient is producing urine, in the order of 40-50 ML per hour. He has been afebrile. Yesterday he had a short run of A. fib RVR with the wide QRS complex, patient was already receiving oral amiodarone, he is currently on amiodarone drip at 0.5 mg/min, patient had converted back to sinus. Maintenance IV fluid is D5W at a rate of 75 ML per hour. This morning he remains in sinus rhythm, and the rate is controlled 65 BPM. Objective - Vital Signs Vital signs: Vital Signs Temp 97.5 F L 08/27/18 08:00 Pulse 65 08/27/18 08:00 Resp 23 08/27/18 08:00 BP 93/56 08/27/18 02:00 Pulse Ox 99 08/27/18 08:00 Intake & Output 08/26/18 08/27/18 08/27/18 18:59 06:59 18:59 Intake Total 981 1168 156 Output Total 1025 580 195 Balance -44 588 -39 Weight 109.2 kg Intake: IV 156 909 156 Dextrose 5% in Water 1, 826 150 000 ml @ 75 mls/hr IV . [id number] [facility] Rx#:[id number] Lactated Ringers 1,000 ml 20 @ 20 mls/hr IV .Q24H ALEXE[facility] Rx#:[id number] Piperacillin-Tazobactam 3 100 50 .375 gm In Dextrose/Water 1 50ml.bag @ 12.5 mls/hr IVPB Q8HR [facility] Rx#: [id number] pressure bags 36 33 6 Intake, IV Titration 825 259 Amount Amiodarone 450 mg In 259 Dextrose 5% in Water 250 ml @ 1 MG/MIN 34.53 mls/ hr IV .Q7H31M PRN Rx#: [id number] Dextrose 5% in Water 1, 825 000 ml @ 75 mls/hr IV . [id number] [facility] Rx#:[id number] Output: Urine 1025 580 195 Other: Voiding Method Indwelling Catheter Indwelling Catheter # Bowel Movements 1 ABP, PAP, CO, CI - Last Documented Arterial Blood Pressure 159/65 Pulmonary Artery Pressure 40/20 Cardiac Output 6.7 Cardiac Index 3.3 - Exam GENERAL EXAM: Sedated obese 73-year-old white male comfortable in no apparent distress. Currently on BiPAP support, with pressures 12 of 5, and 60%. Patient is having frequent persistent cough HEAD: Normocephalic/atraumatic. EYES: Normal reaction of pupils, equal size. Conjunctiva pink, sclera white. NOSE: Clear with pink turbinates. MOUTH: Missing teeth THROAT: No erythema or exudates. NECK: No masses, no JVD, no thyroid enlargement, no adenopathy. CHEST: No chest wall deformity. Symmetrical expansion. Sternal incision is clean dry and intact, covered with a surgical dressing, Epicardial AV pacemaker wires are present connected to an external pacemaker currently with a backup rate of VVI 50 LUNGS: Equal air entry with coarse breath sounds, but no wheeze, rhonchi or dullness. CVS: Regular rate and rhythm, normal S1 and S2, no gallops, no murmurs, no rubs. ABDOMEN: Soft, nontender. No hepatosplenomegaly, normal bowel sounds, no guarding or rigidity. EXTREMITIES: No clubbing, no edema, no cyanosis, 2+ pulses and upper and lower extremities. Bilateral lower extremities are Hiren wrapped, SCDs are present MUSCULOSKELETAL: Muscle strength and tone normal. SPINE: No scoliosis or deformity SKIN: No rashes CENTRAL NERVOUS SYSTEM: Sedated. No focal deficits, tone is normal in all 4 extremities. PSYCHIATRIC: Able to assess sedated - Labs CBC & Chem 7: 08/27/18 04:25 08/27/18 04:25 Labs: Abnormal Lab Results - Last 24 Hours (Table) 08/26/18 08/26/18 08/26/18 Range/Units 12:18 16:09 20:39 RBC (4.30-5.90) m/uL Hgb (13.0-17.5) gm/dL Hct (39.0-53.0) % MCHC (31.0-37.0) g/dL RDW (11.5-15.5) % Lymphocytes # (1.0-4.8) k/uL Chloride (98-107) mmol/L BUN (9-20) mg/dL Creatinine (0.66-1.25) mg/dL Glucose (74-99) mg/dL POC Glucose (mg/dL) 165 H 211 H 234 H (75-99) mg/dL Magnesium (1.6-2.3) mg/dL Total Protein (6.3-8.2) g/dL Albumin (3.5-5.0) g/dL 08/26/18 08/27/18 08/27/18 Range/Units 22:16 00:04 00:24 RBC (4.30-5.90) m/uL Hgb (13.0-17.5) gm/dL Hct (39.0-53.0) % MCHC (31.0-37.0) g/dL RDW (11.5-15.5) % Lymphocytes # (1.0-4.8) k/uL Chloride 112 H (98-107) mmol/L BUN 65 H (9-20) mg/dL Creatinine 1.67 H (0.66-1.25) mg/dL Glucose 237 H (74-99) mg/dL POC Glucose (mg/dL) 259 H 247 H (75-99) mg/dL Magnesium 2.9 H (1.6-2.3) mg/dL Total Protein 5.8 L (6.3-8.2) g/dL Albumin 2.9 L (3.5-5.0) g/dL 08/27/18 08/27/18 08/27/18 Range/Units 03:58 04:25 04:25 RBC 2.59 L (4.30-5.90) m/uL Hgb 7.6 L (13.0-17.5) gm/dL Hct 25.2 L (39.0-53.0) % MCHC 30.1 L (31.0-37.0) g/dL RDW 16.0 H (11.5-15.5) % Lymphocytes # 0.4 L (1.0-4.8) k/uL Chloride 111 H (98-107) mmol/L BUN 68 H (9-20) mg/dL Creatinine 1.80 H (0.66-1.25) mg/dL Glucose 190 H (74-99) mg/dL POC Glucose (mg/dL) 196 H (75-99) mg/dL Magnesium 3.0 H (1.6-2.3) mg/dL Total Protein (6.3-8.2) g/dL Albumin (3.5-5.0) g/dL 08/27/18 Range/Units 08:30 RBC (4.30-5.90) m/uL Hgb (13.0-17.5) gm/dL Hct (39.0-53.0) % MCHC (31.0-37.0) g/dL RDW (11.5-15.5) % Lymphocytes # (1.0-4.8) k/uL Chloride (98-107) mmol/L BUN (9-20) mg/dL Creatinine (0.66-1.25) mg/dL Glucose (74-99) mg/dL POC Glucose (mg/dL) 191 H (75-99) mg/dL Magnesium (1.6-2.3) mg/dL Total Protein (6.3-8.2) g/dL Albumin (3.5-5.0) g/dL Microbiology - Last 24 Hours (Table) 08/25/18 09:54 Urine Culture - Final Urine,Catheterized 08/25/18 09:49 Blood Culture - Preliminary Blood No Growth after 24 hours Assessment and Plan Plan: Assessment: Postop day #10, status post three-vessel bypass grafting Status post extubation and reintubation on August 20. Patient was extubated again on 08/25/2018, requiring continuous BiPAP support Postoperative ventilator management A. fib RVR with a wide-QRS complex, back in sinus rhythm Non-ST segment elevation myocardial infarction ICU psychosis and delirium, improving Status post bronchoscopy on August 21 for right lower lobe collapse Diabetes mellitus COPD History of chronic tobacco dependence History of prostate cancer History of hyperlipidemia Benign essential hypertension Previous nephrectomy Plan: Patient will be given a dose of IV Lasix, he is developing worsening pulmonary vascular congestion, and worsening bilateral pleural effusions. His voice seems to be a little less hoarse, and his cough seems to have improved. We will give the patient on trial on nasal cannula this morning. We'll proceed with bedside swallow. Continue nebulized bronchodilators. Patient will have to wear the BiPAP intermittently. I performed a history & physical examination of the patient and discussed their management with my nurse practitioner, Randi Root. I reviewed the nurse practitioner's note and agree with the documented findings and plan of care. Lung sounds are positive for coarse breath sounds. The findings and the impression was discussed with the patient. I attest to the documentation by the nurse practitioner. Critical care time is over 30 minutes Time with Patient: Greater than 30
[2018-08-27] MEDS ORDERED: FUROSEMIDE 10 MG/ML 2 ML VIAL IV ONE (09:30)
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
[2018-08-27] MEDS: FERROUS SULFATE ORAL ELIXIR 300 MG/5 ML CUP PO SCH ×2 (10:48→17:39)
[2018-08-27] MEDS: ASPIRIN 325 MG TAB PO SCH (10:48)
[2018-08-27] MEDS: CLOPIDOGREL 75 MG TAB PO SCH (10:48)
[2018-08-27] MEDS: AMIODARONE 200 MG TAB PO SCH ×2 (10:48→22:20)
[2018-08-27] MEDS: METOPROLOL TARTRATE 25 MG TAB PO SCH ×2 (10:48→22:20)
[2018-08-27] MEDS: QUEtiapine 50 MG TAB PO SCH ×2 (10:48→22:20)
[2018-08-27] MEDS: ATORVASTATIN 40 MG TAB PO SCH (10:48)
[2018-08-27] MEDS: ASCORBIC ACID 500 MG TAB PO SCH ×2 (10:49→17:39)
[2018-08-27] MEDS: DEXTROSE 5% IN WATER 1,000 ML IV SCH (10:49)
--- NOTE | 2018-08-27 10:53 | P.PN ---
Subjective Progress Note Date: 08/27/18 Principal diagnosis: Non-ST elevation myocardial infarction, impaired left ventricular systolic function with EF 20-25%. History of hypertension, hypertriglyceridemia insulin- dependent diabetes mellitus with preoperative hemoglobin A1c 7.1%, COPD with preoperative FEV1 87% of predicted, previous tobacco dependence, prostate cancer with radiation, right nephrectomy, obesity, BPH. POD #10 urgent coronary artery bypass grafting 3 vessels, left internal mammary artery to left anterior descending artery, reverse saphenous vein graft to obtuse marginal artery, reverse saphenous vein graft to posterior descending artery, endoscopic vein harvest of the left greater saphenous vein, epi-aortic ultrasound, intraoperative transesophageal echocardiogram, closure of sternum using titanium plates and [place] cable system. Postoperative acute blood loss anemia, an expected outcome of surgery secondary to cardiopulmonary bypass and hemodilution. Postoperative delirium, an unexpected outcome. Postoperative acute respiratory distress requiring reintubation, prolonged mechanical ventilation, an unexpected outcome. Postoperative right lower lobe collapse, secondary to mucus plugging, an unexpected outcome POD #6 bronchoscopy, bronchial alveolar lavage of the right middle lobe, right lower lobe, and washings of both lungs performed by Dr. Almodovar. Patient's currently sitting up in bed in no acute distress. Does appear slightly anxious. Does complain of incisional pain but just received pain medication. Went into A. fib RVR this morning which resolved with IV amiodarone. He was on BiPAP overnight into this morning, currently on 15 L high flow nasal cannula. Patient had swallow eval this morning which he passed. Objective - Vital Signs Vital signs: Vital Signs Temp 97.5 F L 08/27/18 08:00 Pulse 66 08/27/18 10:00 Resp 26 H 08/27/18 10:00 BP 93/56 08/27/18 02:00 Pulse Ox 93 L 08/27/18 10:00 Intake & Output 08/26/18 08/27/18 08/27/18 18:59 06:59 18:59 Intake Total 981 1168 362 Output Total 1025 580 340 Balance -44 588 22 Weight 109.2 kg 109.2 kg Intake: IV 156 909 362 Dextrose 5% in Water 1, 826 300 000 ml @ 75 mls/hr IV . [id number] [facility] Rx#:[id number] Lactated Ringers 1,000 ml 20 @ 20 mls/hr IV .Q24H [facility] Rx#:[id number] Piperacillin-Tazobactam 3 100 50 50 .375 gm In Dextrose/Water 1 50ml.bag @ 12.5 mls/hr IVPB Q8HR [facility] Rx#: [id number] pressure bags 36 33 12 Intake, IV Titration 825 259 Amount Amiodarone 450 mg In 259 Dextrose 5% in Water 250 ml @ 1 MG/MIN 34.53 mls/ hr IV .Q7H31M PRN Rx#: [id number] Dextrose 5% in Water 1, 825 000 ml @ 75 mls/hr IV . [id number] [facility] Rx#:[id number] Output: Urine 1025 580 340 Other: Voiding Method Indwelling Catheter Indwelling Catheter Indwelling Catheter # Bowel Movements 1 ABP, PAP, CO, CI - Last Documented Arterial Blood Pressure 169/66 Pulmonary Artery Pressure 40/20 Cardiac Output 6.7 Cardiac Index 3.3 - Constitutional General appearance: Present: cooperative, no acute distress, obese - Respiratory Details: Lungs sounds diminished bilaterally. Respirations even, nonlabored. Currently on 15 L high flow nasal cannula with oxygen saturation 94%. Effective cough with productive yellow brown sputum. - Cardiovascular Details: S1, S2 present. Regular rate and rhythm, sinus rhythm on telemetry. A/V epicardial pacemaker wires present, connected to generator, AAI mode with backup rate 50 bpm. Palpable peripheral pulses bilaterally. Trace generalized edema present. No calf pain or tenderness noted. Right radial arterial line present. Heart hugger, antiembolism stockings, SCDs present. - Gastrointestinal Gastrointestinal Comment(s): Abdomen soft, nontender, nondistended. Active bowel sounds present 4 quadrants. Positive bowel movement. Patient passed swallow eval and is able to have pured foods. - Genitourinary Genitourinary Comment(s): Suero present draining clear, yellow urine. Output overnight 40-50 mL per hour , 380 mL last 8 hours. - Integumentary Integumentary Comment(s): Skin is warm and dry with evidence of good perfusion. Anterior chest incision well approximated and covered with dry intact dressing. Left lower extremity EVH site well approximated, ecchymosis present, expected. - Neurologic Neurologic: Present: CNII-XII intact - Musculoskeletal Musculoskeletal: Present: strength equal bilaterally - Psychiatric Psychiatric: Present: A&O x's 3, appropriate affect, intact judgment & insight - Allied health notes Allied health notes reviewed: nursing - Labs CBC & Chem 7: 08/27/18 04:25 08/27/18 04:25 Labs: Abnormal Lab Results - Last 24 Hours (Table) 08/26/18 08/26/18 08/26/18 Range/Units 12:18 16:09 20:39 RBC (4.30-5.90) m/uL Hgb (13.0-17.5) gm/dL Hct (39.0-53.0) % MCHC (31.0-37.0) g/dL RDW (11.5-15.5) % Lymphocytes # (1.0-4.8) k/uL Chloride (98-107) mmol/L BUN (9-20) mg/dL Creatinine (0.66-1.25) mg/dL Glucose (74-99) mg/dL POC Glucose (mg/dL) 165 H 211 H 234 H (75-99) mg/dL Magnesium (1.6-2.3) mg/dL Total Protein (6.3-8.2) g/dL Albumin (3.5-5.0) g/dL 08/26/18 08/27/18 08/27/18 Range/Units 22:16 00:04 00:24 RBC (4.30-5.90) m/uL Hgb (13.0-17.5) gm/dL Hct (39.0-53.0) % MCHC (31.0-37.0) g/dL RDW (11.5-15.5) % Lymphocytes # (1.0-4.8) k/uL Chloride 112 H (98-107) mmol/L BUN 65 H (9-20) mg/dL Creatinine 1.67 H (0.66-1.25) mg/dL Glucose 237 H (74-99) mg/dL POC Glucose (mg/dL) 259 H 247 H (75-99) mg/dL Magnesium 2.9 H (1.6-2.3) mg/dL Total Protein 5.8 L (6.3-8.2) g/dL Albumin 2.9 L (3.5-5.0) g/dL 08/27/18 08/27/18 08/27/18 Range/Units 03:58 04:25 04:25 RBC 2.59 L (4.30-5.90) m/uL Hgb 7.6 L (13.0-17.5) gm/dL Hct 25.2 L (39.0-53.0) % MCHC 30.1 L (31.0-37.0) g/dL RDW 16.0 H (11.5-15.5) % Lymphocytes # 0.4 L (1.0-4.8) k/uL Chloride 111 H (98-107) mmol/L BUN 68 H (9-20) mg/dL Creatinine 1.80 H (0.66-1.25) mg/dL Glucose 190 H (74-99) mg/dL POC Glucose (mg/dL) 196 H (75-99) mg/dL Magnesium 3.0 H (1.6-2.3) mg/dL Total Protein (6.3-8.2) g/dL Albumin (3.5-5.0) g/dL 08/27/18 Range/Units 08:30 RBC (4.30-5.90) m/uL Hgb (13.0-17.5) gm/dL Hct (39.0-53.0) % MCHC (31.0-37.0) g/dL RDW (11.5-15.5) % Lymphocytes # (1.0-4.8) k/uL Chloride (98-107) mmol/L BUN (9-20) mg/dL Creatinine (0.66-1.25) mg/dL Glucose (74-99) mg/dL POC Glucose (mg/dL) 191 H (75-99) mg/dL Magnesium (1.6-2.3) mg/dL Total Protein (6.3-8.2) g/dL Albumin (3.5-5.0) g/dL Microbiology - Last 24 Hours (Table) 08/25/18 09:54 Urine Culture - Final Urine,Catheterized 08/25/18 09:49 Blood Culture - Preliminary Blood No Growth after 24 hours - Imaging and Cardiology Chest x-ray: report reviewed, image reviewed Assessment and Plan (1) CAD (coronary artery disease) Current Visit: Yes Status: Chronic Code(s): I25.10 - ATHSCL HEART DISEASE OF [place] CORONARY ARTERY W/O ANG PCTRS SNOMED Code(s): 86456652 (2) Left main coronary artery disease Current Visit: Yes Status: Chronic Code(s): I25.10 - ATHSCL HEART DISEASE OF [place] CORONARY ARTERY W/O ANG PCTRS SNOMED Code(s): 702784362 (3) Hypertension Current Visit: Yes Status: Chronic Code(s): I10 - ESSENTIAL (PRIMARY) HYPERTENSION SNOMED Code(s): 84521066 (4) Hyperlipidemia Current Visit: Yes Status: Chronic Code(s): E78.5 - HYPERLIPIDEMIA, UNSPECIFIED SNOMED Code(s): 59336180 (5) Insulin dependent diabetes mellitus Current Visit: Yes Status: Chronic Code(s): E11.9 - TYPE 2 DIABETES MELLITUS WITHOUT COMPLICATIONS; 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 SNOMED Code(s): 19092189 (6) Tobacco dependence in remission Current Visit: No Status: Resolved Code(s): F17.201 - NICOTINE DEPENDENCE, UNSPECIFIED, IN REMISSION SNOMED Code(s): 258708622 (7) COPD (chronic obstructive pulmonary disease) Current Visit: Yes Status: Chronic Code(s): J44.9 - CHRONIC OBSTRUCTIVE PULMONARY DISEASE, UNSPECIFIED SNOMED Code(s): 34366769 (8) History of nephrectomy Current Visit: Yes Status: Chronic Code(s): Z90.5 - ACQUIRED ABSENCE OF KIDNEY SNOMED Code(s): 30269167137244 (9) Family history of heart disease Current Visit: Yes Status: Chronic Code(s): Z82.49 - FAMILY HX OF ISCHEM HEART DIS AND OTH DIS OF THE CIRC SYS SNOMED Code(s): 377843762 (10) History of prostate cancer Current Visit: Yes Status: Chronic Code(s): Z85.46 - PERSONAL HISTORY OF MALIGNANT NEOPLASM OF PROSTATE SNOMED Code(s): 889746391 (11) NSTEMI (non-ST elevated myocardial infarction) Current Visit: Yes Status: Acute Code(s): I21.4 - NON-ST ELEVATION (NSTEMI) MYOCARDIAL INFARCTION SNOMED Code(s): 758631800 Plan: 1. Continue aspirin, statin, Plavix, beta laurie. Will increase beta laurie therapy as tolerated. Continue as needed Apresoline IV for hypertension. 2. Wean O2 as tolerated. BiPAP management per pulmonology. 3. Increase activity. PT/OT/cardiac rehab following. 4. Diet ordered. Encourage oral intake. 5. Will give 20 mg IV Lasix today. 6. Bronchodilators, antibiotics per pulmonology. Ultrasound of the chest ordered to determine amount of pleural effusion. 7. Insulin per primary care service. 8. Will monitor daily labs and x-rays. Will follow culture results. Bronchial washings negative. 9. GI prophylaxis with Protonix. DVT prophylaxis with subcu heparin, SCDs. 10. Pain control with current medication regimen. 11. Continue Flomax for BPH. 12. Avoid nephrotoxic agents. 13. More recommendations to follow. Time with Patient: Greater than 30
--- NOTE | 2018-08-27 11:31 | P.PN ---
Subjective Progress Note Date: 08/27/18 This is a 73-year-old male, patient of [facility]. He has a known past medical history of hypertension, diabetes mellitus, COPD, right nephrectomy 1970 and former smoker. Patient presents to the emergency room with complaints of chest pain with pressure and heaviness and diaphoresis. Symptoms had started yesterday. Patient was diagnosed with a non-ST elevated NE. Initial troponin 0.128 then 11.6 and 11.8. Patient was started on IV heparin cardiology was consulted. And patient underwent heart catheterization today. The heart catheterization shows total occlusion of the right coronary artery. Left main is 70-75% stenosed. The left anterior descending coronary artery has a mid lesion of 70% with thrombus. Obtuse marginal had 80-85% stenosis. Cardiology is recommending open-heart surgery. That her surgery has been consulted. They have already evaluated patient and surgery we'll possibly be on Friday. Pulmonary service has also been consulted. Patient is receiving IV fluids. He was slightly dehydrated on admission creatinine was 1.44. Unclear baseline creatinine. Creatinine in March 2018 was 1.3. Patient currently is chest pain-free. He reports that symptoms started after eating spicy soup and when he came back home he belched a large amount of gas and is relieved the pressure. He has been chest pain-free. Cardiology has placed him on IV heparin and Aggrastat. On 08/15/2018 patient was seen and examined he is alert and oriented 3 in no apparent distress he is sitting at the edge of the bed and he denies any chest pain there is no shortness of breath at rest he has occasional cough no palpitation no nausea or vomiting no abdominal pain no diarrhea no constipation no burning with urination no frequency or urgency and no hematuria. On 08/16/2018 patient was seen and examined on the telemetry floor he is alert and oriented 3 in no distress he denies any new episodes of chest pain he denies any other symptoms there is no fever or chills no headache or dizziness no shortness of breath no cough no nausea or vomiting no abdominal pain no diarrhea no burning was urination no frequency or urgency and no hematuria On 08/17/2018 Patient had coronary artery bypass graft [address] Hannah today. Patient currently intubated and on sedation. Patient remains in the intensive care unit. Patient currently on levophed for pressure support. On 08/18/2018 patient is currently postop day 1 and coronary artery bypass graft surgery. Patient is currently up in chair. Patient was extubated throughout night. Precedex drip has been DC'd per cardiovascular team. Patient remains sleepy but alert and arousable. At this time patient denies shortness of breath. Denies nausea vomiting or diarrhea. Denies any urinary burning. On 08/19/2018 patient is currently postop day 2 from coronary artery bypass graft. Per nursing staff patient is confused. Patient is also requiring BiPAP to maintain adequate oxygenation. Discussed case with Luna from the cardiovascular surgical team. Patient remains on Precedex drip. safety sitting at bedside. On 08/20/2018 patient is currently postop day 2 from coronary artery bypass graft. Patient remains on BiPAP for adequate oxygen. Precedex drip has been DC 'd. Patient does seem more alert. Patient followed closely by cardiovascular surgical team and critical care On 08/21/2018 patient got reintubated last night due to agitation and hypoxia. Patient is currently on propofol for sedation. Patient also started on Levophed for pressure support. Critical care team following closely. On 08/22/2018 patient got reintubated due to agitation and hypoxia. Patient is currently on propofol for sedation. Patient also started on Levophed for pressure support. Critical care team following closely. On 08/23/2018 patient is intubated sedated maintained on mechanical ventilation , he had a sedation holiday for about 1 hour at that time he was following commands. At this time he is back on sedation urine output is adequate. Hemoglobin is down to 7.2 On 08/24/2018 patient remains intubated on mechanical ventilation in the intensive care unit. Per nursing staff patient becomes agitated during sedation holidays. Hemoglobin decreasing to 7.1. Sedation holiday will be attempted again today. On 08/25/2018 patient recently extubated this a.m. Patient currently on BiPAP. Patient remains on Precedex drip. Patient is responsive to name. Patient having elevated temps at 101.3. Urine and blood cultures have been ordered per surgical vascular team. Bronchoscopy washing cultures showing no organisms at this time. On 08/26/2018 patient remains extubated on BiPAP. Patient is responsive to name in follow some commands. Long acting insulin increased to 20 units daily. Urine and blood cultures pending. Patient still having low-grade temps 100.4. On 08/27/2018 patient currently on BiPAP. Patient did have episode of A. fib with RVR throughout night. Patient currently on amiodarone drip per cardiovascular surgery. Swallow eval will be assessed today. At this time patient is awake and alert. Objective - Vital Signs Vital signs: Vital Signs Temp 97.5 F L 08/27/18 08:00 Pulse 66 08/27/18 11:00 Resp 42 H 08/27/18 11:00 BP 93/56 08/27/18 02:00 Pulse Ox 95 08/27/18 11:00 Intake & Output 08/26/18 08/27/18 08/27/18 18:59 06:59 18:59 Intake Total 981 1168 440 Output Total 1025 580 405 Balance -44 588 35 Weight 109.2 kg 109.2 kg Intake: IV 156 909 440 Dextrose 5% in Water 1, 826 375 000 ml @ 75 mls/hr IV . [id number] [facility] Rx#:[id number] Lactated Ringers 1,000 ml 20 @ 20 mls/hr IV .Q24H [facility] Rx#:[id number] Piperacillin-Tazobactam 3 100 50 50 .375 gm In Dextrose/Water 1 50ml.bag @ 12.5 mls/hr IVPB Q8HR [facility] Rx#: [id number] pressure bags 36 33 15 Intake, IV Titration 825 259 Amount Amiodarone 450 mg In 259 Dextrose 5% in Water 250 ml @ 1 MG/MIN 34.53 mls/ hr IV .Q7H31M [facility]N Rx#: [id number] Dextrose 5% in Water 1, 825 000 ml @ 75 mls/hr IV . [id number] [facility] Rx#:[id number] Output: Urine 1025 580 405 Other: Voiding Method Indwelling Catheter Indwelling Catheter Indwelling Catheter # Bowel Movements 1 ABP, PAP, CO, CI - Last Documented Arterial Blood Pressure 178/64 Pulmonary Artery Pressure 40/20 Cardiac Output 6.7 Cardiac Index 3.3 - Exam Head normocephalic Neck supple Lungs patient currently on bipap. Breath sounds diminished bilaterally Heart regular rate and rhythm S1-S2, no rub or gallop Abdomen is soft nontender nondistended positive bowel sounds no hepatosplenomegaly Extremities no edema Neuro patient is following some commands and responds to name - Labs CBC & Chem 7: 08/27/18 04:25 08/27/18 04:25 Labs: Abnormal Lab Results - Last 24 Hours (Table) 08/26/18 08/26/18 08/26/18 Range/Units 12:18 16:09 20:39 RBC (4.30-5.90) m/uL Hgb (13.0-17.5) gm/dL Hct (39.0-53.0) % MCHC (31.0-37.0) g/dL RDW (11.5-15.5) % Lymphocytes # (1.0-4.8) k/uL Chloride (98-107) mmol/L BUN (9-20) mg/dL Creatinine (0.66-1.25) mg/dL Glucose (74-99) mg/dL POC Glucose (mg/dL) 165 H 211 H 234 H (75-99) mg/dL Magnesium (1.6-2.3) mg/dL Total Protein (6.3-8.2) g/dL Albumin (3.5-5.0) g/dL 08/26/18 08/27/18 08/27/18 Range/Units 22:16 00:04 00:24 RBC (4.30-5.90) m/uL Hgb (13.0-17.5) gm/dL Hct (39.0-53.0) % MCHC (31.0-37.0) g/dL RDW (11.5-15.5) % Lymphocytes # (1.0-4.8) k/uL Chloride 112 H (98-107) mmol/L BUN 65 H (9-20) mg/dL Creatinine 1.67 H (0.66-1.25) mg/dL Glucose 237 H (74-99) mg/dL POC Glucose (mg/dL) 259 H 247 H (75-99) mg/dL Magnesium 2.9 H (1.6-2.3) mg/dL Total Protein 5.8 L (6.3-8.2) g/dL Albumin 2.9 L (3.5-5.0) g/dL 08/27/18 08/27/18 08/27/18 Range/Units 03:58 04:25 04:25 RBC 2.59 L (4.30-5.90) m/uL Hgb 7.6 L (13.0-17.5) gm/dL Hct 25.2 L (39.0-53.0) % MCHC 30.1 L (31.0-37.0) g/dL RDW 16.0 H (11.5-15.5) % Lymphocytes # 0.4 L (1.0-4.8) k/uL Chloride 111 H (98-107) mmol/L BUN 68 H (9-20) mg/dL Creatinine 1.80 H (0.66-1.25) mg/dL Glucose 190 H (74-99) mg/dL POC Glucose (mg/dL) 196 H (75-99) mg/dL Magnesium 3.0 H (1.6-2.3) mg/dL Total Protein (6.3-8.2) g/dL Albumin (3.5-5.0) g/dL 08/27/18 Range/Units 08:30 RBC (4.30-5.90) m/uL Hgb (13.0-17.5) gm/dL Hct (39.0-53.0) % MCHC (31.0-37.0) g/dL RDW (11.5-15.5) % Lymphocytes # (1.0-4.8) k/uL Chloride (98-107) mmol/L BUN (9-20) mg/dL Creatinine (0.66-1.25) mg/dL Glucose (74-99) mg/dL POC Glucose (mg/dL) 191 H (75-99) mg/dL Magnesium (1.6-2.3) mg/dL Total Protein (6.3-8.2) g/dL Albumin (3.5-5.0) g/dL Microbiology - Last 24 Hours (Table) 08/25/18 09:54 Urine Culture - Final Urine,Catheterized 08/25/18 09:49 Blood Culture - Preliminary Blood No Growth after 24 hours Assessment and Plan Assessment: 1. Status post coronary artery bypass graft [address] Hannah postop day 10. The [facility]AL to LAD, SVG to PDA and Circ. Patient currently intubated and on sedation. Cardiovascular team and critical care team following closely. Patient currently up in chair. Patient has been extubated throughout night. hemoglobin 7.9. Discussed case with Luna per cardiovascular surgical team 2-D echo has been ordered due to diminished heart sounds. Hemoglobin 7.3. On 08/20 Patieht required reintubation due to extreme agitation and hypoxia. Critical care team following closely. PICC line placement ordered per cardiovascular surgery 2. Acute respiratory failure. Patient required reintubation last night 08/20. Chest x-ray completed showing right pleural effusion and bilateral lower lobe pulmonary infiltrates. There is probably mild heart failure. Endotracheal tube is in good position. Heart and lungs appear unchanged. Chest ultrasound completed showing small to tiny bilateral pleural effusions. Per pulmonary team No thoracentesis at this time. Status post bronchoscopy on 08/21/2018. Suspect right lower lobe collapse. Critical care and pulmonary services following closely. bronchial cultures pending. 08/25 patient extubated to BiPAP. 3. Acute Non-ST elevated myocardial infarction: Heart catheterization showing multivessel coronary artery disease with thrombus in the LAD. Patient has been seen by vascular surgery and planning for open heart surgery on Friday. Continue IV heparin and Aggrastat per cardiology. Continue with IV fluids. Pulmonary service also consulted for preop clearance. 4. Acute kidney injury: Unclear patient has chronic kidney disease. Creatinine in March 2018 was 1.3. Continue with IV fluid hydration. Creatinine 1.42. Continue to monitor closely. Creatinine continued to increase to 1.60. Discussed case with Luna gardner from cardiovascular surgery will continue to monitor closely at this point. Creatinine improving to 1.40 and bun 41. Nephrology following. Continue Lasix 40 mg IV daily per nephrology. Creatinine 1.80 and Bun 60. 5. Essential hypertension 6. Diabetes mellitus insulin-dependent. Hemoglobin A1c 7.9. Patient on sliding scale insulin. Lantus 10 units has been added. Lantus has been increased to 20 units 7. History of COPD: No evidence of exacerbation. continue albuterol nebulizer as needed 8. BPH continue Flomax 9. Atelectasis noted on chest x-ray order incentive spirometer 10. Obesity BMI 39.4 kg 11. Possible acute ICU psychosis and delirium. Patient remains on Precedex. Critical care team following closely. On 08/20 patient required reintubation. patient extubated. 12. Expected acute blood loss anemia secondary to surgery. Hemoglobin 6.8. Cardiovascular surgery following closely. We'll continue to monitor closely 13. Elevated temperature. Patient febrile with 11.3. Blood and urine cultures have been ordered per cardiovascular team. WBC improving to 7.6 14. Postoperative atrial fibrillation, and expected outcome. Patient currently on amiodarone DVT prophylaxis heparin and GI prophylaxis Protonix I performed an examination of the patient and discussed their management with the Nurse Practitioner. I have reviewed the Nurse Practitioner's notes and agree with the documented findings and plan of care
[2018-08-27 11:50] LABS: Glucose,Whole Blood 248 mg/dL (75-99)
[2018-08-27 15:07] LABS: Glucose,Whole Blood 223 mg/dL (75-99)
--- NOTE | 2018-08-27 16:03 | US ---
EXAMINATION TYPE: US chest DATE OF EXAM: 08/27/2018 COMPARISON: 08/20/2018. Radiograph same day. CLINICAL HISTORY: 73-year-old male pleural effusion. TECHNIQUE: Targeted ultrasound of the posterior lower bilateral hemithoraces FINDINGS: EXAM MEASUREMENTS: Right Pleural Effusion pocket size: 2.0 cm Right skin surface to fluid distance: 4.8 cm Left Pleural Effusion pocket size: 2.0 cm Left skin surface to fluid distance: 2.1 cm Roster Clerk notes: Technically difficult study, patient had difficulty being held forward by aid, cou ghing during exam. Right side not marked for possible thoracentesis outside the dept. Left side not marked for possible thoracentesis outside the dept. Pulmonologists are able to review the images in the patient?s EMR. IMPRESSIONS: Enlarging effusions but still small on both sides. Markings not performed. Effusions may be over callie mated on radiographs due to prominent adjacent atelectasis or consolidation.
[2018-08-27 21:01] LABS: Glucose,Whole Blood 264 mg/dL (75-99)
[2018-08-27] MEDS: INSULIN DETEMIR 100 UNIT/ML 10 ML VIAL SQ SCH ×2 (21:30→22:24)
[2018-08-27] MEDS: TAMSULOSIN 0.4 MG CAP.ER.24H PO SCH (21:38)
[2018-08-27] MEDS: SENNOSIDES-DOCUSATE SODIUM 1 EACH TAB PO SCH (21:38)
[2018-08-27 21:58] LABS: Glucose,Whole Blood 248 mg/dL (75-99)
[2018-08-28 00:22] LABS: Glucose,Whole Blood 203 mg/dL (75-99)
[2018-08-28] MEDS: INSULIN ASPART 100 UNIT/ML 1 ML 10 ML VIAL SQ SCH ×6 (00:23→21:30)
[2018-08-28] MEDS: PIPERACILLIN-TAZOBACTAM 3.375 GM in DEXTROSE/WATER 1 50ML.BAG IVPB SCH ×3 (00:25→17:17)
[2018-08-28] MEDS: HEPARIN SODIUM,PORCINE 5,000 UNIT/ML 1 ML VIAL SQ SCH ×3 (00:25→17:18)
[2018-08-28 01:48] LABS: Calcium 8.2 mg/dL (8.4-10.2); Magnesium 2.9 mg/dL (1.6-2.3); Phosphorus 3.4 mg/dL (2.5-4.5); Potassium 4.3 mmol/L (3.5-5.1)
[2018-08-28] MEDS: HYDROmorphone 1 MG/ML 1 ML SYRINGE IVP PRN ×4 (03:09→21:33)
[2018-08-28] MEDS: DEXTROSE 5% IN WATER 100 ML with AMIODARONE 150 MG IV PRN ×2 (03:48→18:07)
[2018-08-28 04:01] LABS: Glucose,Whole Blood 189 mg/dL (75-99)
[2018-08-28] MEDS: DEXTROSE 5% IN WATER 1,000 ML IV SCH ×2 (04:14→17:19)
[2018-08-28 05:31] LABS: Albumin 2.9 g/dL (3.5-5.0); Calcium 8.3 mg/dL (8.4-10.2); Magnesium 2.9 mg/dL (1.6-2.3); Phosphorus 4.3 mg/dL (2.5-4.5); Potassium 4.6 mmol/L (3.5-5.1); Total Bilirubin 0.4 mg/dL (0.2-1.3); Total Protein 5.7 g/dL (6.3-8.2)
[2018-08-28 05:43] LABS: Basophils % (A) 0 %; Eosinophils % (A) 0 %; HCT 26.2 % (39.0-53.0); HGB 7.9 gm/dL (13.0-17.5); Hypochromasia Marked; Lymphocytes # (A) 0.5 k/uL (1.0-4.8); Lymphocytes % (A) 5 %; MCH 29.2 pg (25.0-35.0); MCHC 30.4 g/dL (31.0-37.0); MCV 96.3 fL (80.0-100.0); Monocytes # (A) 0.4 k/uL (0-1.0); Monocytes % (A) 5 %; Neutrophils # (A) 8.9 k/uL (1.3-7.7); Neutrophils % (A) 90 %; Platelet Count 346 k/uL (150-450); RBC 2.72 m/uL (4.30-5.90); RDW 15.7 % (11.5-15.5); WBC 9.9 k/uL (3.8-10.6)
[2018-08-28 07:33] LABS: Glucose,Whole Blood 126 mg/dL (75-99)
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
--- NOTE | 2018-08-28 07:54 | XR ---
EXAMINATION TYPE: XR chest 1V portable DATE OF EXAM: 08/28/2018 COMPARISON: 08/27/2018 INDICATION: Post cardiac surgery TECHNIQUE: Single frontal view of the chest is obtained. FINDINGS: The heart size is enlarged. The pulmonary vasculature is normal. Small right pleural effusion is present. Minimal left pleural effusion is present. Sternotomy wires a nd plates are present. IMPRESSION: 1. Cardiomegaly. 2. Bilateral pleural effusions.
[2018-08-28] MEDS: AMIODARONE 200 MG TAB PO SCH ×2 (08:36→20:43)
[2018-08-28] MEDS: ASPIRIN 325 MG TAB PO SCH (08:36)
[2018-08-28] MEDS: CLOPIDOGREL 75 MG TAB PO SCH (08:36)
[2018-08-28] MEDS: ATORVASTATIN 40 MG TAB PO SCH (08:36)
[2018-08-28] MEDS: PANTOPRAZOLE 40 MG/10 ML VIAL IVP SCH (08:41)
[2018-08-28] MEDS: ASCORBIC ACID 500 MG TAB PO SCH ×2 (08:42→17:18)
[2018-08-28] MEDS: QUEtiapine 50 MG TAB PO SCH ×2 (08:42→20:45)
[2018-08-28] MEDS: METOPROLOL TARTRATE 25 MG TAB PO SCH ×2 (08:43→20:43)
--- NOTE | 2018-08-28 08:52 | P.PN ---
Subjective Progress Note Date: 08/28/18 Principal diagnosis: Symptomatic multivessel coronary artery disease, awaiting surgical revascularization. This is a 73-year-old white male patient of Dr. Joy Reagan, who presented emergency department on 08/13/2018 at 1840 evaluation of chest pain, associated with diaphoresis. The pain was non-radiating, and occurred after eating some spicy soup, patient was belching, and had some nausea. No vomiting. EKG showed some ST and T-wave abnormalities in the inferior, anterior, and lateral leads with T-wave inversion. Troponins were elevated at 0.128, 11.8, 11.8 and 9.270, patient was ruled in for non-ST elevated DC. Patient was placed on IV heparin, aspirin, Coreg, nitroglycerin and he underwent cardiac catheterization this afternoon with Dr. ALISHA Harper which showed a distal lesion of the left main of 70% before bifurcation into LAD and circumflex with calcification, 60% narrowing in the LAD at the origin of the first diagonal branch, 70% stenosis in the LAD at the origin of the second diagonal branch with probable thrombus, first obtuse marginal with 80-90% stenosis proximally, and 60% narrowing in the circumflex after the first obtuse marginal, total occlusion of the proximal RCA with some collateral circulation from the left system to the right. Patient has past medical history of coronary artery disease, COPD, diabetes mellitus type 2, hypertension, previous nicotine dependence, history of right nephrectomy in 1969 and chronic kidney disease. Patient was recommended to undergo coronary revascularization and cardiothoracic surgery has been consulted. We are seeing this patient for pulmonary evaluation. On 08/15/2018, the patient has no specific complaints. He is not having any chest pain. Resting comfortably in bed. Bedside spirometry was noted and there is no significant obstructive airway limitation. Chest x-ray was reviewed and showed some elevation of the right hemidiaphragm. Otherwise there is some subsegmental atelectatic changes in the lung bases. He is an ex- smoker. He is an obese male patient with a BMI of 39.0. No previous history of DVT or pulmonary embolism. No home O2. He is an ex-smoker. Overall performance status is good. On 08/16/2018 patient seen in follow-up on selective care unit. He sitting up on bed, in no acute distress, denies any shortness of breath. No chest pain, he is on heparin drip. Room air pulse ox is 94%, vital signs are stable. Lung sounds are clear. Patient is possibly scheduled for surgical revascularization surgery on 08/17/2018. No acute complaints overnight. Sinus rhythm. On 08/17/2018 patient seen in follow-up in the intensive care unit, he is status post three-vessel coronary artery bypass grafting, with CHAHAL to LAD, SVG to the PDA, and circumflex. Patient is currently sedated, intubated, on mechanical ventilator, and current vent settings are SIMV mode with a rate of 12 , tidal volume 500, FiO2 of 50% and PEEP of 10. IV drips include LR at a rate of 40, levothyroid at a rate of 10 mics per minute, Primacor is at 0.2 mics per kilo per minute, Precedex is at 0.2 mics per kilo per hour. Patient received 1500 of crystalloids and 1500 mL of 5% albumin, in addition to Cell Saver. Mineral -Eliazar catheter is in place, with PA pressures of 50/32, CVP of 25, cardiac output of 7.3, and cardiac index of 3.6. Patient has 2 mediastinal chest tubes and left pleural chest tubes with small amount of sanguinous output. AV epicardial wires are in place, patient is currently being paced at her mode of AAI with a rate of 80 BPM. The blood work showed WBC of 8.6, hemoglobin of 8.5 , INR 1.2, sodium of 140, potassium is 4.8, chloride is 110, BUN of 21, creatinine is 1.09. Blood gas showed pO2 of 79, pCO2 of 53, pH of 7.25. Vent settings were adjusted, and rate was increased to IMV with a rate of 18 breaths per minute. Suero catheter is in place, and patient is producing 30-50 ML per hour. On 08/26/2018 patient seen again in follow-up in the intensive care unit. He was extubated yesterday on 08/25/2018 to BiPAP. He remains on BiPAP support, currently at pressures 10 and 5, and 50%. Post extubation patient was noted to be a bit stridorous, his voice is hoarse, and patient has persistent nonproductive cough. He was given 2 doses of IV Decadron yesterday. This morning patient is awake and alert, oriented to self, and place. Disoriented to time. He is still having the persistent cough, and his voice remains hoarse. He was given a trial of nasal cannula, and he was quite anxious, tachypneic. He could not complete his bedside swallow evaluation in view of persistent coughing, and tachypnea. We will give the patient additional doses of Decadron, Precedex was discontinued yesterday, she remains on Seroquel 50 mg twice daily, will add small doses of Ativan 3 times a day as needed for anxiety. He is in sinus rhythm currently a bit tachycardic, with a heart rate of 115. Lung sounds are positive for a few rhonchi, no significant wheezing on today's exam. This chest x-ray was reviewed, and showed stable findings, with right basilar opacity, pulmonary venous congestion, and cardiomegaly. Today's labs were reviewed, WBC 7.6, hemoglobin 7.1, sodium is 148, chloride is 113, BUN is 60, creatinine is 1.85. Patient's maintenance IV fluids is lactated Ringer's at 20 mL per hour. Switch the IV fluids to D5W at a rate of 75 ML per hour. On 08/27/2018 patient seen in follow-up in the intensive care unit, he remains on BiPAP support, currently with pressures of 12 and 5, and FiO2 of 60%. He is awake and alert, oriented 2, to person and place. Seems a bit less anxious today, his voice is less hoarse. Patient was given 4 more doses of IV Decadron and racemic epinephrine.. Lung sounds are essentially clear, with minimal crackles at the bilateral bases. Today's checks chest x-ray has been reviewed and showed pulmonary vascular congestion/mild interstitial edema which has slightly worsened, and moderate right and increasing small to moderate left pleural effusions with adjacent atelectasis. CT surgery has ordered a dose of IV Lasix today, we will give the patient a trial on nasal cannula. Today's labs were reviewed, Rabia BC is 8.4, hemoglobin is 7.6, sodium is 145, potassium is 4.7, chloride is 111, BUN is 68, and creatinine is 1.8. Patient had some bouts of diarrhea yesterday, C. diff was negative. Patient is producing urine, in the order of 40-50 ML per hour. He has been afebrile. Yesterday he had a short run of A. fib RVR with the wide QRS complex, patient was already receiving oral amiodarone, he is currently on amiodarone drip at 0.5 mg/min, patient had converted back to sinus. Maintenance IV fluid is D5W at a rate of 75 ML per hour. This morning he remains in sinus rhythm, and the rate is controlled 65 BPM. On 08/28/2018 patient seen in follow-up in the intensive care unit, remains on BiPAP support, with pressures of 12 and 5, 60%. Yesterday patient did tolerate 3 hours of nasal cannula trial, but afterwards became tachypneic, and labored breathing, and had to be placed back on BiPAP support. This morning he is awake and alert, he is oriented to self, and place. Denies any acute distress, lung sounds are relatively clear, with only a few minimal crackles. D5W is running at a rate of 75 ML per hour. No other drips. Today's chest x-ray has been reviewed, and shows cardiomegaly, and bilateral pleural effusions, patient was given a dose of IV Lasix yesterday. Patient did pass a swallow evaluation, and has been eating. He remains nonoliguric, he denies any shortness of breath or chest pain. His heart rate is controlled, he is actually a bit bradycardiac at the moment, sinus rhythm with a rate of 55 BPM. Microbiology remains negative. Objective - Vital Signs Vital signs: Vital Signs Temp 97.2 F L 08/28/18 03:00 Pulse 51 L 08/28/18 07:00 Resp 15 08/28/18 07:00 BP 93/56 08/27/18 02:00 Pulse Ox 98 08/28/18 07:00 Intake & Output 08/27/18 08/28/18 08/28/18 18:59 06:59 18:59 Intake Total 1114 1028 78 Output Total 1200 800 45 Balance -86 228 33 Weight 109.2 kg 108.6 kg Intake: IV 1114 908 78 Dextrose 5% in Water 1, 975 825 75 000 ml @ 75 mls/hr IV . [id number] [facility] Rx#:[id number] Piperacillin-Tazobactam 3 100 50 .375 gm In Dextrose/Water 1 50ml.bag @ 12.5 mls/hr IVPB Q8HR [facility] Rx#: [id number] pressure bags 39 33 3 Oral 120 Output: Urine 1200 800 45 Other: Voiding Method Indwelling Catheter Indwelling Catheter ABP, PAP, CO, CI - Last Documented Arterial Blood Pressure 142/61 Pulmonary Artery Pressure 40/20 Cardiac Output 6.7 Cardiac Index 3.3 - Exam GENERAL EXAM: Sedated obese 73-year-old white male comfortable in no apparent distress. Currently on BiPAP support, with pressures 12 of 5, and 60%. HEAD: Normocephalic/atraumatic. EYES: Normal reaction of pupils, equal size. Conjunctiva pink, sclera white. NOSE: Clear with pink turbinates. MOUTH: Missing teeth THROAT: No erythema or exudates. NECK: No masses, no JVD, no thyroid enlargement, no adenopathy. CHEST: No chest wall deformity. Symmetrical expansion. Sternal incision is clean dry and intact, covered with a surgical dressing, Epicardial AV pacemaker wires are present connected to an external pacemaker currently with a backup rate of VVI 50 LUNGS: Equal air entry with coarse breath sounds, but no wheeze, rhonchi or dullness. CVS: Regular rate and rhythm, normal S1 and S2, no gallops, no murmurs, no rubs. ABDOMEN: Soft, nontender. No hepatosplenomegaly, normal bowel sounds, no guarding or rigidity. EXTREMITIES: No clubbing, no edema, no cyanosis, 2+ pulses and upper and lower extremities. Bilateral lower extremities are Hiren wrapped, SCDs are present MUSCULOSKELETAL: Muscle strength and tone normal. SPINE: No scoliosis or deformity SKIN: No rashes CENTRAL NERVOUS SYSTEM: Sedated. No focal deficits, tone is normal in all 4 extremities. - Labs CBC & Chem 7: 08/28/18 04:38 08/28/18 04:38 Labs: Abnormal Lab Results - Last 24 Hours (Table) 08/27/18 08/27/18 08/27/18 Range/Units 11:49 15:04 20:59 RBC (4.30-5.90) m/uL Hgb (13.0-17.5) gm/dL Hct (39.0-53.0) % MCHC (31.0-37.0) g/dL RDW (11.5-15.5) % Neutrophils # (1.3-7.7) k/uL Lymphocytes # (1.0-4.8) k/uL Chloride (98-107) mmol/L BUN (9-20) mg/dL Creatinine (0.66-1.25) mg/dL Glucose (74-99) mg/dL POC Glucose (mg/dL) 248 H 223 H 264 H (75-99) mg/dL Calcium (8.4-10.2) mg/dL Magnesium (1.6-2.3) mg/dL AST (17-59) U/L ALT (21-72) U/L Total Protein (6.3-8.2) g/dL Albumin (3.5-5.0) g/dL 08/27/18 08/28/18 08/28/18 Range/Units 21:57 00:19 01:20 RBC (4.30-5.90) m/uL Hgb (13.0-17.5) gm/dL Hct (39.0-53.0) % MCHC (31.0-37.0) g/dL RDW (11.5-15.5) % Neutrophils # (1.3-7.7) k/uL Lymphocytes # (1.0-4.8) k/uL Chloride 108 H (98-107) mmol/L BUN 69 H (9-20) mg/dL Creatinine 1.78 H (0.66-1.25) mg/dL Glucose 189 H (74-99) mg/dL POC Glucose (mg/dL) 248 H 203 H (75-99) mg/dL Calcium 8.2 L (8.4-10.2) mg/dL Magnesium 2.9 H (1.6-2.3) mg/dL AST (17-59) U/L ALT (21-72) U/L Total Protein (6.3-8.2) g/dL Albumin (3.5-5.0) g/dL 08/28/18 08/28/18 08/28/18 Range/Units 03:58 04:38 04:38 RBC 2.72 L (4.30-5.90) m/uL Hgb 7.9 L (13.0-17.5) gm/dL Hct 26.2 L (39.0-53.0) % MCHC 30.4 L (31.0-37.0) g/dL RDW 15.7 H (11.5-15.5) % Neutrophils # 8.9 H (1.3-7.7) k/uL Lymphocytes # 0.5 L (1.0-4.8) k/uL Chloride 108 H (98-107) mmol/L BUN 69 H (9-20) mg/dL Creatinine 1.72 H (0.66-1.25) mg/dL Glucose 154 H (74-99) mg/dL POC Glucose (mg/dL) 189 H (75-99) mg/dL Calcium 8.3 L (8.4-10.2) mg/dL Magnesium 2.9 H (1.6-2.3) mg/dL AST 85 H (17-59) U/L ALT 84 H (21-72) U/L Total Protein 5.7 L (6.3-8.2) g/dL Albumin 2.9 L (3.5-5.0) g/dL 08/28/18 Range/Units 07:25 RBC (4.30-5.90) m/uL Hgb (13.0-17.5) gm/dL Hct (39.0-53.0) % MCHC (31.0-37.0) g/dL RDW (11.5-15.5) % Neutrophils # (1.3-7.7) k/uL Lymphocytes # (1.0-4.8) k/uL Chloride (98-107) mmol/L BUN (9-20) mg/dL Creatinine (0.66-1.25) mg/dL Glucose (74-99) mg/dL POC Glucose (mg/dL) 126 H (75-99) mg/dL Calcium (8.4-10.2) mg/dL Magnesium (1.6-2.3) mg/dL AST (17-59) U/L ALT (21-72) U/L Total Protein (6.3-8.2) g/dL Albumin (3.5-5.0) g/dL Microbiology - Last 24 Hours (Table) 08/25/18 09:49 Blood Culture - Preliminary Blood No Growth after 48 hours Assessment and Plan Plan: Assessment: Postop day #11, status post three-vessel bypass grafting Status post extubation and reintubation on August 20. Patient was extubated again on 08/25/2018, requiring intermittent BiPAP support Postoperative ventilator management A. fib RVR with a wide-QRS complex, back in sinus rhythm Non-ST segment elevation myocardial infarction ICU psychosis and delirium, improving Status post bronchoscopy on August 21 for right lower lobe collapse Diabetes mellitus COPD History of chronic tobacco dependence History of prostate cancer History of hyperlipidemia Benign essential hypertension Previous nephrectomy Plan: We will try the patient again on nasal cannula, he may wear the BiPAP intermittently is needed. Today's chest x-ray has been reviewed, and shows persistent pleural effusions. Nephrology is following, his renal profile is stable, he is nonoliguric, may need on the dose of Lasix, we will let cardiothoracic surgery and nephrology decide. Continue nebulized bronchodilators, continue encouraging deep breathing coughing, his hoarseness and coughing seems to have subsided. Mentation is improving. Patient passed swallow evaluation, and a modified diet was prescribed. Maintain aspiration precautions, assistance and supervision with meals. I performed a history & physical examination of the patient and discussed their management with my nurse practitioner, Randi Root. I reviewed the nurse practitioner's note and agree with the documented findings and plan of care. Lung sounds are essentially clear, with minimal crackles. The findings and the impression was discussed with the patient. I attest to the documentation by the nurse practitioner. Critical care time is over 30 minutes Time with Patient: Greater than 30
[2018-08-28] MEDS: IPRATROPIUM-ALBUTEROL 3 ML NEB INHALATION SCH ×4 (08:53→19:43)
--- NOTE | 2018-08-28 09:10 | P.PN ---
Subjective Progress Note Date: 08/28/18 Principal diagnosis: Non-ST elevation myocardial infarction, impaired left ventricular systolic function with EF 20-25%, acute on chronic systolic heart failure. History of hypertension, hypertriglyceridemia insulin-dependent diabetes mellitus with preoperative hemoglobin A1c 7.1%, COPD with preoperative FEV1 87% of predicted, previous tobacco dependence, prostate cancer with radiation, right nephrectomy, obesity, BPH. POD #10 urgent coronary artery bypass grafting 3 vessels, left internal mammary artery to left anterior descending artery, reverse saphenous vein graft to obtuse marginal artery, reverse saphenous vein graft to posterior descending artery, endoscopic vein harvest of the left greater saphenous vein, epi-aortic ultrasound, intraoperative transesophageal echocardiogram, closure of sternum using titanium plates and [place] cable system. Postoperative acute blood loss anemia, an expected outcome of surgery secondary to cardiopulmonary bypass and hemodilution. Postoperative delirium, an unexpected outcome. Postoperative acute respiratory distress requiring reintubation, prolonged mechanical ventilation, an unexpected outcome. Postoperative right lower lobe collapse, secondary to mucus plugging, an unexpected outcome POD #6 bronchoscopy, bronchial alveolar lavage of the right middle lobe, right lower lobe, and washings of both lungs performed by Dr. Almodovar. Postoperative atrial fibrillation, an expected outcome. Patient's currently sitting up in bed in mild distress, just trying to recover from a coughing fit. Does appear slightly anxious. He has remained on BiPAP except for short episodes where he is on high flow nasal cannula in order to eat. Objective - Vital Signs Vital signs: Vital Signs Temp 97.2 F L 08/28/18 03:00 Pulse 64 08/28/18 08:53 Resp 15 08/28/18 07:00 BP 93/56 08/27/18 02:00 Pulse Ox 98 08/28/18 07:00 Intake & Output 08/27/18 08/28/18 08/28/18 18:59 06:59 18:59 Intake Total 1114 1028 78 Output Total 1200 800 45 Balance -86 228 33 Weight 109.2 kg 108.6 kg Intake: IV 1114 908 78 Dextrose 5% in Water 1, 975 825 75 000 ml @ 75 mls/hr IV . [id number] [facility] Rx#:[id number] Piperacillin-Tazobactam 3 100 50 .375 gm In Dextrose/Water 1 50ml.bag @ 12.5 mls/hr IVPB Q8HR [facility] Rx#: [id number] pressure bags 39 33 3 Oral 120 Output: Urine 1200 800 45 Other: Voiding Method Indwelling Catheter Indwelling Catheter ABP, PAP, CO, CI - Last Documented Arterial Blood Pressure 142/61 Pulmonary Artery Pressure 40/20 Cardiac Output 6.7 Cardiac Index 3.3 - Constitutional General appearance: Present: cooperative, mild distress, obese - Respiratory Details: Lungs sounds diminished bilaterally, slight stridor heard over the neck. Respirations tachypneic, slightly labored. Currently on BiPAP, FiO2 60%, IPAP 12, EPAP 5, with oxygen saturation 98%. Effective cough with productive yellow brown sputum. - Cardiovascular Details: S1, S2 present. Slow but regular rate and rhythm, sinus bradycardia on telemetry with occasional shortness of A. fib. A/V epicardial pacemaker wires present, connected to generator, AAI mode with backup rate 45 bpm. Palpable peripheral pulses bilaterally. Trace generalized edema present. No calf pain or tenderness noted. Right radial arterial line present. Heart hugger, antiembolism stockings, SCDs present. - Gastrointestinal Gastrointestinal Comment(s): Abdomen soft, nontender, nondistended. Active bowel sounds present 4 quadrants. Positive bowel movement. Tolerating diet. - Genitourinary Genitourinary Comment(s): Suero present draining clear, yellow urine. Output overnight 75 mL per hour, 550 mL last 8 hours. - Integumentary Integumentary Comment(s): Skin is warm and dry with evidence of good perfusion. Anterior chest incision well approximated and covered with dry intact dressing. Left lower extremity EVH site well approximated, ecchymosis present, expected. - Neurologic Neurologic: Present: CNII-XII intact - Musculoskeletal Musculoskeletal: Present: strength equal bilaterally - Psychiatric Psychiatric Comment(s): Slightly anxious at this time. Psychiatric: Present: A&O x's 3 - Allied health notes Allied health notes reviewed: nursing - Labs CBC & Chem 7: 08/28/18 04:38 08/28/18 04:38 Labs: Abnormal Lab Results - Last 24 Hours (Table) 08/27/18 08/27/18 08/27/18 Range/Units 11:49 15:04 20:59 RBC (4.30-5.90) m/uL Hgb (13.0-17.5) gm/dL Hct (39.0-53.0) % MCHC (31.0-37.0) g/dL RDW (11.5-15.5) % Neutrophils # (1.3-7.7) k/uL Lymphocytes # (1.0-4.8) k/uL Chloride (98-107) mmol/L BUN (9-20) mg/dL Creatinine (0.66-1.25) mg/dL Glucose (74-99) mg/dL POC Glucose (mg/dL) 248 H 223 H 264 H (75-99) mg/dL Calcium (8.4-10.2) mg/dL Magnesium (1.6-2.3) mg/dL AST (17-59) U/L ALT (21-72) U/L Total Protein (6.3-8.2) g/dL Albumin (3.5-5.0) g/dL 08/27/18 08/28/18 08/28/18 Range/Units 21:57 00:19 01:20 RBC (4.30-5.90) m/uL Hgb (13.0-17.5) gm/dL Hct (39.0-53.0) % MCHC (31.0-37.0) g/dL RDW (11.5-15.5) % Neutrophils # (1.3-7.7) k/uL Lymphocytes # (1.0-4.8) k/uL Chloride 108 H (98-107) mmol/L BUN 69 H (9-20) mg/dL Creatinine 1.78 H (0.66-1.25) mg/dL Glucose 189 H (74-99) mg/dL POC Glucose (mg/dL) 248 H 203 H (75-99) mg/dL Calcium 8.2 L (8.4-10.2) mg/dL Magnesium 2.9 H (1.6-2.3) mg/dL AST (17-59) U/L ALT (21-72) U/L Total Protein (6.3-8.2) g/dL Albumin (3.5-5.0) g/dL 08/28/18 08/28/18 08/28/18 Range/Units 03:58 04:38 04:38 RBC 2.72 L (4.30-5.90) m/uL Hgb 7.9 L (13.0-17.5) gm/dL Hct 26.2 L (39.0-53.0) % MCHC 30.4 L (31.0-37.0) g/dL RDW 15.7 H (11.5-15.5) % Neutrophils # 8.9 H (1.3-7.7) k/uL Lymphocytes # 0.5 L (1.0-4.8) k/uL Chloride 108 H (98-107) mmol/L BUN 69 H (9-20) mg/dL Creatinine 1.72 H (0.66-1.25) mg/dL Glucose 154 H (74-99) mg/dL POC Glucose (mg/dL) 189 H (75-99) mg/dL Calcium 8.3 L (8.4-10.2) mg/dL Magnesium 2.9 H (1.6-2.3) mg/dL AST 85 H (17-59) U/L ALT 84 H (21-72) U/L Total Protein 5.7 L (6.3-8.2) g/dL Albumin 2.9 L (3.5-5.0) g/dL 08/28/18 Range/Units 07:25 RBC (4.30-5.90) m/uL Hgb (13.0-17.5) gm/dL Hct (39.0-53.0) % MCHC (31.0-37.0) g/dL RDW (11.5-15.5) % Neutrophils # (1.3-7.7) k/uL Lymphocytes # (1.0-4.8) k/uL Chloride (98-107) mmol/L BUN (9-20) mg/dL Creatinine (0.66-1.25) mg/dL Glucose (74-99) mg/dL POC Glucose (mg/dL) 126 H (75-99) mg/dL Calcium (8.4-10.2) mg/dL Magnesium (1.6-2.3) mg/dL AST (17-59) U/L ALT (21-72) U/L Total Protein (6.3-8.2) g/dL Albumin (3.5-5.0) g/dL Microbiology - Last 24 Hours (Table) 08/25/18 09:49 Blood Culture - Preliminary Blood No Growth after 48 hours - Imaging and Cardiology Chest x-ray: report reviewed, image reviewed Assessment and Plan (1) CAD (coronary artery disease) Current Visit: Yes Status: Chronic Code(s): I25.10 - ATHSCL HEART DISEASE OF [place] CORONARY ARTERY W/O ANG PCTRS SNOMED Code(s): 01032940 (2) Left main coronary artery disease Current Visit: Yes Status: Chronic Code(s): I25.10 - ATHSCL HEART DISEASE OF [place] CORONARY ARTERY W/O ANG PCTRS SNOMED Code(s): 335267235 (3) Hypertension Current Visit: Yes Status: Chronic Code(s): I10 - ESSENTIAL (PRIMARY) HYPERTENSION SNOMED Code(s): 01736233 (4) Hyperlipidemia Current Visit: Yes Status: Chronic Code(s): E78.5 - HYPERLIPIDEMIA, UNSPECIFIED SNOMED Code(s): 42513752 (5) Insulin dependent diabetes mellitus Current Visit: Yes Status: Chronic Code(s): E11.9 - TYPE 2 DIABETES MELLITUS WITHOUT COMPLICATIONS; Z79.4 - USP (CURRENT) USE OF INSULIN SNOMED Code(s): 51388653 (6) Tobacco dependence in remission Current Visit: No Status: Resolved Code(s): F17.201 - NICOTINE DEPENDENCE, UNSPECIFIED, IN REMISSION SNOMED Code(s): 351562540 (7) COPD (chronic obstructive pulmonary disease) Current Visit: Yes Status: Chronic Code(s): J44.9 - CHRONIC OBSTRUCTIVE PULMONARY DISEASE, UNSPECIFIED SNOMED Code(s): 57933745 (8) History of nephrectomy Current Visit: Yes Status: Chronic Code(s): Z90.5 - ACQUIRED ABSENCE OF KIDNEY SNOMED Code(s): 19796994250242 (9) Family history of heart disease Current Visit: Yes Status: Chronic Code(s): Z82.49 - FAMILY HX OF ISCHEM HEART DIS AND OTH DIS OF THE CIRC SYS SNOMED Code(s): 906342369 (10) History of prostate cancer Current Visit: Yes Status: Chronic Code(s): Z85.46 - PERSONAL HISTORY OF MALIGNANT NEOPLASM OF PROSTATE SNOMED Code(s): 612976187 (11) NSTEMI (non-ST elevated myocardial infarction) Current Visit: Yes Status: Acute Code(s): I21.4 - NON-ST ELEVATION (NSTEMI) MYOCARDIAL INFARCTION SNOMED Code(s): 457757600 Plan: 1. Continue aspirin, statin, Plavix, beta laurie. Will increase beta laurie therapy as tolerated. Continue as needed Apresoline IV for hypertension. 2. Wean O2 as tolerated. BiPAP management per pulmonology. 3. Increase activity. PT/OT/cardiac rehab following. 4. Diet ordered. Encourage oral intake. 5. Recommend IV steroids. Will discuss with pulmonology. 6. Bronchodilators, antibiotics per pulmonology. 7. Insulin per primary care service. 8. Will monitor daily labs and x-rays. Will follow culture results. Bronchial washings negative. 9. GI prophylaxis with Protonix. DVT prophylaxis with subcu heparin, SCDs. 10. Pain control with current medication regimen. 11. Continue Flomax for BPH. 12. Avoid nephrotoxic agents. 13. More recommendations to follow. Time with Patient: Greater than 30
[2018-08-28] MEDS: FERROUS SULFATE ORAL ELIXIR 300 MG/5 ML CUP PO SCH ×2 (09:28→18:18)
[2018-08-28] MEDS: DEXAMETHASONE SOD PHOSPHATE 4 MG/ML 1 ML VIAL IV SCH ×3 (09:59→17:18)
--- NOTE | 2018-08-28 10:25 | P.PN ---
Subjective Progress Note Date: 08/28/18 This is a 73-year-old male, patient of [facility]. He has a known past medical history of hypertension, diabetes mellitus, COPD, right nephrectomy 1970 and former smoker. Patient presents to the emergency room with complaints of chest pain with pressure and heaviness and diaphoresis. Symptoms had started yesterday. Patient was diagnosed with a non-ST elevated CA. Initial troponin 0.128 then 11.6 and 11.8. Patient was started on IV heparin cardiology was consulted. And patient underwent heart catheterization today. The heart catheterization shows total occlusion of the right coronary artery. Left main is 70-75% stenosed. The left anterior descending coronary artery has a mid lesion of 70% with thrombus. Obtuse marginal had 80-85% stenosis. Cardiology is recommending open-heart surgery. That her surgery has been consulted. They have already evaluated patient and surgery we'll possibly be on Friday. Pulmonary service has also been consulted. Patient is receiving IV fluids. He was slightly dehydrated on admission creatinine was 1.44. Unclear baseline creatinine. Creatinine in March 2018 was 1.3. Patient currently is chest pain-free. He reports that symptoms started after eating spicy soup and when he came back home he belched a large amount of gas and is relieved the pressure. He has been chest pain-free. Cardiology has placed him on IV heparin and Aggrastat. On 08/15/2018 patient was seen and examined he is alert and oriented 3 in no apparent distress he is sitting at the edge of the bed and he denies any chest pain there is no shortness of breath at rest he has occasional cough no palpitation no nausea or vomiting no abdominal pain no diarrhea no constipation no burning with urination no frequency or urgency and no hematuria. On 08/16/2018 patient was seen and examined on the telemetry floor he is alert and oriented 3 in no distress he denies any new episodes of chest pain he denies any other symptoms there is no fever or chills no headache or dizziness no shortness of breath no cough no nausea or vomiting no abdominal pain no diarrhea no burning was urination no frequency or urgency and no hematuria On 08/17/2018 Patient had coronary artery bypass graft [address] Hannah today. Patient currently intubated and on sedation. Patient remains in the intensive care unit. Patient currently on levophed for pressure support. On 08/18/2018 patient is currently postop day 1 and coronary artery bypass graft surgery. Patient is currently up in chair. Patient was extubated throughout night. Precedex drip has been DC'd per cardiovascular team. Patient remains sleepy but alert and arousable. At this time patient denies shortness of breath. Denies nausea vomiting or diarrhea. Denies any urinary burning. On 08/19/2018 patient is currently postop day 2 from coronary artery bypass graft. Per nursing staff patient is confused. Patient is also requiring BiPAP to maintain adequate oxygenation. Discussed case with Luna from the cardiovascular surgical team. Patient remains on Precedex drip. safety sitting at bedside. On 08/20/2018 patient is currently postop day 2 from coronary artery bypass graft. Patient remains on BiPAP for adequate oxygen. Precedex drip has been DC 'd. Patient does seem more alert. Patient followed closely by cardiovascular surgical team and critical care On 08/21/2018 patient got reintubated last night due to agitation and hypoxia. Patient is currently on propofol for sedation. Patient also started on Levophed for pressure support. Critical care team following closely. On 08/22/2018 patient got reintubated due to agitation and hypoxia. Patient is currently on propofol for sedation. Patient also started on Levophed for pressure support. Critical care team following closely. On 08/23/2018 patient is intubated sedated maintained on mechanical ventilation , he had a sedation holiday for about 1 hour at that time he was following commands. At this time he is back on sedation urine output is adequate. Hemoglobin is down to 7.2 On 08/24/2018 patient remains intubated on mechanical ventilation in the intensive care unit. Per nursing staff patient becomes agitated during sedation holidays. Hemoglobin decreasing to 7.1. Sedation holiday will be attempted again today. On 08/25/2018 patient recently extubated this a.m. Patient currently on BiPAP. Patient remains on Precedex drip. Patient is responsive to name. Patient having elevated temps at 101.3. Urine and blood cultures have been ordered per surgical vascular team. Bronchoscopy washing cultures showing no organisms at this time. On 08/26/2018 patient remains extubated on BiPAP. Patient is responsive to name in follow some commands. Long acting insulin increased to 20 units daily. Urine and blood cultures pending. Patient still having low-grade temps 100.4. On 08/27/2018 patient currently on BiPAP. Patient did have episode of A. fib with RVR throughout night. Patient currently on amiodarone drip per cardiovascular surgery. Swallow eval will be assessed today. At this time patient is awake and alert. On 08/28/2018 she currently remains on BiPAP. Per nursing staff patient is only able to tolerate being off BiPAP temporarily due to increased respiratory rate. Patient is eating. Patient is awake and alert. Patient remains in the intensive care unit Objective - Vital Signs Vital signs: Vital Signs Temp 97.6 F 08/28/18 08:00 Pulse 67 08/28/18 09:07 Resp 45 H 08/28/18 09:00 BP 93/56 08/27/18 02:00 Pulse Ox 95 08/28/18 09:00 Intake & Output 08/27/18 08/28/18 08/28/18 18:59 06:59 18:59 Intake Total 1114 1028 78 Output Total 1200 800 45 Balance -86 228 33 Weight 109.2 kg 108.6 kg 108.6 kg Intake: IV 1114 908 78 Dextrose 5% in Water 1, 975 825 75 000 ml @ 75 mls/hr IV . [id number] [facility] Rx#:[id number] Piperacillin-Tazobactam 3 100 50 .375 gm In Dextrose/Water 1 50ml.bag @ 12.5 mls/hr IVPB Q8HR [facility] Rx#: [id number] pressure bags 39 33 3 Oral 120 Output: Urine 1200 800 45 Other: Voiding Method Indwelling Catheter Indwelling Catheter Indwelling Catheter ABP, PAP, CO, CI - Last Documented Arterial Blood Pressure 165/58 Pulmonary Artery Pressure 40/20 Cardiac Output 6.7 Cardiac Index 3.3 - Exam Head normocephalic Neck supple Lungs patient currently on bipap. Breath sounds diminished bilaterally wheezing noted bilaterally Heart regular rate and rhythm S1-S2, no rub or gallop Abdomen is soft nontender nondistended positive bowel sounds no hepatosplenomegaly Extremities no edema Neuro patient is following some commands and responds to name - Labs CBC & Chem 7: 08/28/18 04:38 08/28/18 04:38 Labs: Abnormal Lab Results - Last 24 Hours (Table) 08/27/18 08/27/18 08/27/18 Range/Units 11:49 15:04 20:59 RBC (4.30-5.90) m/uL Hgb (13.0-17.5) gm/dL Hct (39.0-53.0) % MCHC (31.0-37.0) g/dL RDW (11.5-15.5) % Neutrophils # (1.3-7.7) k/uL Lymphocytes # (1.0-4.8) k/uL Chloride (98-107) mmol/L BUN (9-20) mg/dL Creatinine (0.66-1.25) mg/dL Glucose (74-99) mg/dL POC Glucose (mg/dL) 248 H 223 H 264 H (75-99) mg/dL Calcium (8.4-10.2) mg/dL Magnesium (1.6-2.3) mg/dL AST (17-59) U/L ALT (21-72) U/L Total Protein (6.3-8.2) g/dL Albumin (3.5-5.0) g/dL 08/27/18 08/28/18 08/28/18 Range/Units 21:57 00:19 01:20 RBC (4.30-5.90) m/uL Hgb (13.0-17.5) gm/dL Hct (39.0-53.0) % MCHC (31.0-37.0) g/dL RDW (11.5-15.5) % Neutrophils # (1.3-7.7) k/uL Lymphocytes # (1.0-4.8) k/uL Chloride 108 H (98-107) mmol/L BUN 69 H (9-20) mg/dL Creatinine 1.78 H (0.66-1.25) mg/dL Glucose 189 H (74-99) mg/dL POC Glucose (mg/dL) 248 H 203 H (75-99) mg/dL Calcium 8.2 L (8.4-10.2) mg/dL Magnesium 2.9 H (1.6-2.3) mg/dL AST (17-59) U/L ALT (21-72) U/L Total Protein (6.3-8.2) g/dL Albumin (3.5-5.0) g/dL 08/28/18 08/28/1818 Range/Units 03:58 04:38 04:38 RBC 2.72 L (4.30-5.90) m/uL Hgb 7.9 L (13.0-17.5) gm/dL Hct 26.2 L (39.0-53.0) % MCHC 30.4 L (31.0-37.0) g/dL RDW 15.7 H (11.5-15.5) % Neutrophils # 8.9 H (1.3-7.7) k/uL Lymphocytes # 0.5 L (1.0-4.8) k/uL Chloride 108 H (98-107) mmol/L BUN 69 H (9-20) mg/dL Creatinine 1.72 H (0.66-1.25) mg/dL Glucose 154 H (74-99) mg/dL POC Glucose (mg/dL) 189 H (75-99) mg/dL Calcium 8.3 L (8.4-10.2) mg/dL Magnesium 2.9 H (1.6-2.3) mg/dL AST 85 H (17-59) U/L ALT 84 H (21-72) U/L Total Protein 5.7 L (6.3-8.2) g/dL Albumin 2.9 L (3.5-5.0) g/dL 08/28/18 Range/Units 07:25 RBC (4.30-5.90) m/uL Hgb (13.0-17.5) gm/dL Hct (39.0-53.0) % MCHC (31.0-37.0) g/dL RDW (11.5-15.5) % Neutrophils # (1.3-7.7) k/uL Lymphocytes # (1.0-4.8) k/uL Chloride (98-107) mmol/L BUN (9-20) mg/dL Creatinine (0.66-1.25) mg/dL Glucose (74-99) mg/dL POC Glucose (mg/dL) 126 H (75-99) mg/dL Calcium (8.4-10.2) mg/dL Magnesium (1.6-2.3) mg/dL AST (17-59) U/L ALT (21-72) U/L Total Protein (6.3-8.2) g/dL Albumin (3.5-5.0) g/dL Microbiology - Last 24 Hours (Table) 08/25/18 09:49 Blood Culture - Preliminary Blood No Growth after 48 hours Assessment and Plan Assessment: 1. Status post coronary artery bypass graft [address] Hannah postop day 10. The CHAHAL to LAD, SVG to PDA and Circ. Patient currently intubated and on sedation. Cardiovascular team and critical care team following closely. Patient currently up in chair. Patient has been extubated throughout night. hemoglobin 7.9. Discussed case with Luna per cardiovascular surgical team 2-D echo has been ordered due to diminished heart sounds. Hemoglobin 7.3. On 08/20 Patieht required reintubation due to extreme agitation and hypoxia. Critical care team following closely. PICC line placement ordered per cardiovascular surgery 2. Acute respiratory failure. Patient required reintubation last night 08/20. Chest x-ray completed showing right pleural effusion and bilateral lower lobe pulmonary infiltrates. There is probably mild heart failure. Endotracheal tube is in good position. Heart and lungs appear unchanged. Chest ultrasound completed showing small to tiny bilateral pleural effusions. Per pulmonary team No thoracentesis at this time. Status post bronchoscopy on 08/21/2018. Suspect right lower lobe collapse. Critical care and pulmonary services following closely. bronchial cultures pending. 08/25 patient extubated to BiPAP. Chest x-ray completed 928 showing cardiomegaly and bilateral pleural effusions 3. Acute Non-ST elevated myocardial infarction: Heart catheterization showing multivessel coronary artery disease with thrombus in the LAD. Patient has been seen by vascular surgery and planning for open heart surgery on Friday. Continue IV heparin and Aggrastat per cardiology. Continue with IV fluids. Pulmonary service also consulted for preop clearance. 4. Acute kidney injury: Unclear patient has chronic kidney disease. Creatinine in March 2018 was 1.3. Continue with IV fluid hydration. Creatinine 1.42. Continue to monitor closely. Creatinine continued to increase to 1.60. Discussed case with Luna gardner from cardiovascular surgery will continue to monitor closely at this point. Creatinine improving to 1.40 and bun 41. Nephrology following. Continue Lasix 40 mg IV daily per nephrology. Creatinine 1.80 and Bun 60. 5. Essential hypertension 6. Diabetes mellitus insulin-dependent. Hemoglobin A1c 7.9. Patient on sliding scale insulin. Lantus 10 units has been added. 08/27 Lantus has been increased to 25 units. Patient did pass followed swallow eval and now tolerating diet 7. History of COPD: No evidence of exacerbation. continue albuterol nebulizer as needed 8. BPH continue Flomax 9. Atelectasis noted on chest x-ray order incentive spirometer 10. Obesity BMI 39.4 kg 11. Possible acute ICU psychosis and delirium. Patient remains on Precedex. Critical care team following closely. On 08/20 patient required reintubation. patient extubated. 12. Expected acute blood loss anemia secondary to surgery. Hemoglobin 6.8. Cardiovascular surgery following closely. We'll continue to monitor closely. HemoGlobin 7.9 13. Elevated temperature. Patient febrile with 11.3. Blood and urine cultures have been ordered per cardiovascular team. WBC improving to 9.9 14. Postoperative atrial fibrillation, and expected outcome. Patient currently on amiodarone 15. Elevated liver enzymes. AST 85 and ALT 84. Discussed case with cardiothoracic P[employer]LE WORKER. Continue to monitor closely DVT prophylaxis heparin and GI prophylaxis Protonix I performed an examination of the patient and discussed their management with the Nurse Practitioner. I have reviewed the Nurse Practitioner's notes and agree with the documented findings and plan of care
[2018-08-28] MEDS ORDERED: FUROSEMIDE 10 MG/ML 2 ML VIAL IV ONE (11:19)
[2018-08-28 12:35] LABS: Glucose,Whole Blood 136 mg/dL (75-99)
--- NOTE | 2018-08-28 13:00 | P.PN ---
Subjective Still struggling to breathe but better now. Not using the CPAP mask. It seems to me that his inspirations are ineffective and etiology seem mechanical in nature He is unable to take a full effective inspiration Still confused but overall better now Pulse rate in the 60s respirations 40 Breath sounds are reduced bilaterally poor respiratory effort Heart sounds are regular No lower extremity edema Impression Multivessel coronary artery disease status post coronary artery bypass grafting and acute respiratory failure thereafter Suggest continue ICU and post CT surgery care and current medications Objective - Vital Signs Vital signs: Vital Signs Temp 97.6 F 08/28/18 08:00 Pulse 67 08/28/18 09:07 Resp 45 H 08/28/18 09:00 BP 93/56 08/27/18 02:00 Pulse Ox 95 08/28/18 09:00 Intake & Output 08/27/18 08/28/18 08/28/18 18:59 06:59 18:59 Intake Total 1114 1028 78 Output Total 1200 800 45 Balance -86 228 33 Weight 109.2 kg 108.6 kg 108.6 kg Intake: IV 1114 908 78 Dextrose 5% in Water 1, 975 825 75 000 ml @ 75 mls/hr IV . [id number] [facility] Rx#:[id number] Piperacillin-Tazobactam 3 100 50 .375 gm In Dextrose/Water 1 50ml.bag @ 12.5 mls/hr IVPB Q8HR [facility] Rx#: [id number] pressure bags 39 33 3 Oral 120 Output: Urine 1200 800 45 Other: Voiding Method Indwelling Catheter Indwelling Catheter Indwelling Catheter ABP, PAP, CO, CI - Last Documented Arterial Blood Pressure 165/58 Pulmonary Artery Pressure 40/20 Cardiac Output 6.7 Cardiac Index 3.3 - Labs CBC & Chem 7: 08/28/18 04:38 08/28/18 04:38 Labs: Abnormal Lab Results - Last 24 Hours (Table) 08/27/18 08/27/18 08/27/18 Range/Units 15:04 20:59 21:57 RBC (4.30-5.90) m/uL Hgb (13.0-17.5) gm/dL Hct (39.0-53.0) % MCHC (31.0-37.0) g/dL RDW (11.5-15.5) % Neutrophils # (1.3-7.7) k/uL Lymphocytes # (1.0-4.8) k/uL Chloride (98-107) mmol/L BUN (9-20) mg/dL Creatinine (0.66-1.25) mg/dL Glucose (74-99) mg/dL POC Glucose (mg/dL) 223 H 264 H 248 H (75-99) mg/dL Calcium (8.4-10.2) mg/dL Magnesium (1.6-2.3) mg/dL AST (17-59) U/L ALT (21-72) U/L Total Protein (6.3-8.2) g/dL Albumin (3.5-5.0) g/dL 08/28/18 08/28/18 08/28/18 Range/Units 00:19 01:20 03:58 RBC (4.30-5.90) m/uL Hgb (13.0-17.5) gm/dL Hct (39.0-53.0) % MCHC (31.0-37.0) g/dL RDW (11.5-15.5) % Neutrophils # (1.3-7.7) k/uL Lymphocytes # (1.0-4.8) k/uL Chloride 108 H (98-107) mmol/L BUN 69 H (9-20) mg/dL Creatinine 1.78 H (0.66-1.25) mg/dL Glucose 189 H (74-99) mg/dL POC Glucose (mg/dL) 203 H 189 H (75-99) mg/dL Calcium 8.2 L (8.4-10.2) mg/dL Magnesium 2.9 H (1.6-2.3) mg/dL AST (17-59) U/L ALT (21-72) U/L Total Protein (6.3-8.2) g/dL Albumin (3.5-5.0) g/dL 08/28/18 08/28/18 08/28/18 Range/Units 04:38 04:38 07:25 RBC 2.72 L (4.30-5.90) m/uL Hgb 7.9 L (13.0-17.5) gm/dL Hct 26.2 L (39.0-53.0) % MCHC 30.4 L (31.0-37.0) g/dL RDW 15.7 H (11.5-15.5) % Neutrophils # 8.9 H (1.3-7.7) k/uL Lymphocytes # 0.5 L (1.0-4.8) k/uL Chloride 108 H (98-107) mmol/L BUN 69 H (9-20) mg/dL Creatinine 1.72 H (0.66-1.25) mg/dL Glucose 154 H (74-99) mg/dL POC Glucose (mg/dL) 126 H (75-99) mg/dL Calcium 8.3 L (8.4-10.2) mg/dL Magnesium 2.9 H (1.6-2.3) mg/dL AST 85 H (17-59) U/L ALT 84 H (21-72) U/L Total Protein 5.7 L (6.3-8.2) g/dL Albumin 2.9 L (3.5-5.0) g/dL 08/28/18 Range/Units 12:25 RBC (4.30-5.90) m/uL Hgb (13.0-17.5) gm/dL Hct (39.0-53.0) % MCHC (31.0-37.0) g/dL RDW (11.5-15.5) % Neutrophils # (1.3-7.7) k/uL Lymphocytes # (1.0-4.8) k/uL Chloride (98-107) mmol/L BUN (9-20) mg/dL Creatinine (0.66-1.25) mg/dL Glucose (74-99) mg/dL POC Glucose (mg/dL) 136 H (75-99) mg/dL Calcium (8.4-10.2) mg/dL Magnesium (1.6-2.3) mg/dL AST (17-59) U/L ALT (21-72) U/L Total Protein (6.3-8.2) g/dL Albumin (3.5-5.0) g/dL Microbiology - Last 24 Hours (Table) 08/25/18 09:49 Blood Culture - Preliminary Blood No Growth after 72 hours
[2018-08-28 17:02] LABS: Glucose,Whole Blood 232 mg/dL (75-99)
[2018-08-28 20:13] LABS: Glucose,Whole Blood 229 mg/dL (75-99)
[2018-08-28] MEDS: TAMSULOSIN 0.4 MG CAP.ER.24H PO SCH (20:49)
[2018-08-28] MEDS: SENNOSIDES-DOCUSATE SODIUM 1 EACH TAB PO SCH (20:50)
[2018-08-28] MEDS: LORazepam 2 MG/ML INJ IV PRN (22:03)
[2018-08-28] MEDS: INSULIN DETEMIR 100 UNIT/ML 10 ML VIAL SQ SCH (22:24)
[2018-08-29] MEDS: DEXAMETHASONE SOD PHOSPHATE 4 MG/ML 1 ML VIAL IV SCH ×5 (00:54→23:44)
[2018-08-29] MEDS: PIPERACILLIN-TAZOBACTAM 3.375 GM in DEXTROSE/WATER 1 50ML.BAG IVPB SCH ×4 (00:56→23:48)
[2018-08-29 01:05] LABS: Glucose,Whole Blood 252 mg/dL (75-99)
[2018-08-29] MEDS: HEPARIN SODIUM,PORCINE 5,000 UNIT/ML 1 ML VIAL SQ SCH ×4 (01:06→23:41)
[2018-08-29] MEDS: INSULIN ASPART 100 UNIT/ML 1 ML 10 ML VIAL SQ SCH ×7 (01:35→23:38)
[2018-08-29 01:36] LABS: Glucose,Whole Blood 247 mg/dL (75-99)
[2018-08-29] MEDS: HYDROmorphone 1 MG/ML 1 ML SYRINGE IVP PRN (03:37)
[2018-08-29 04:21] LABS: Glucose,Whole Blood 232 mg/dL (75-99)
[2018-08-29] MEDS: DEXTROSE 5% IN WATER 1,000 ML IV SCH (05:12)
[2018-08-29 05:26] LABS: Basophils % (A) 0 %; Eosinophils % (A) 0 %; HCT 25.2 % (39.0-53.0); HGB 7.7 gm/dL (13.0-17.5); Hypochromasia Marked; Lymphocytes # (A) 0.4 k/uL (1.0-4.8); Lymphocytes % (A) 6 %; MCH 29.3 pg (25.0-35.0); MCHC 30.6 g/dL (31.0-37.0); MCV 95.8 fL (80.0-100.0); Mean Platelet Volume 7.8; Monocytes # (A) 0.2 k/uL (0-1.0); Monocytes % (A) 2 %; Neutrophils % (A) 91 %; Platelet Count 314 k/uL (150-450); RBC 2.63 m/uL (4.30-5.90); RDW 15.9 % (11.5-15.5); WBC 6.7 k/uL (3.8-10.6)
[2018-08-29 05:40] LABS: Albumin 2.8 g/dL (3.5-5.0); Calcium 8.2 mg/dL (8.4-10.2); Magnesium 2.7 mg/dL (1.6-2.3); Phosphorus 3.9 mg/dL (2.5-4.5); Potassium 4.9 mmol/L (3.5-5.1); Total Bilirubin 0.6 mg/dL (0.2-1.3); Total Protein 5.4 g/dL (6.3-8.2)
--- NOTE | 2018-08-29 07:01 | XR ---
EXAMINATION TYPE: XR chest 1V portable DATE OF EXAM: 08/29/2018 HISTORY: post cardiac surgery. REFERENCE: Previous study dated 08/28/2018. FINDINGS: There has been a midline sternotomy. The heart is enlarged. There is a worsening right-sided effusion. There is vascular congestion and ruffin btle interstitial change. IMPRESSION: WORSENING RIGHT-SIDED EFFUSION WITH ASSOCIATED AIRSPACE DISEASE.
[2018-08-29] MEDS ORDERED: FUROSEMIDE 10 MG/ML 2 ML VIAL IV ONE (08:33)
[2018-08-29] MEDS: ASPIRIN 325 MG TAB PO SCH (08:45)
[2018-08-29] MEDS: ATORVASTATIN 40 MG TAB PO SCH (08:46)
[2018-08-29] MEDS: ASCORBIC ACID 500 MG TAB PO SCH ×2 (08:46→18:40)
[2018-08-29] MEDS: PANTOPRAZOLE 40 MG/10 ML VIAL IVP SCH (08:46)
[2018-08-29] MEDS: QUEtiapine 50 MG TAB PO SCH ×2 (08:46→20:17)
[2018-08-29] MEDS: AMIODARONE 200 MG TAB PO SCH ×2 (08:46→20:03)
[2018-08-29] MEDS: CLOPIDOGREL 75 MG TAB PO SCH (08:46)
[2018-08-29] MEDS: METOPROLOL TARTRATE 12.5 MG TAB PO SCH ×2 (08:46→20:03)
[2018-08-29] MEDS: FERROUS SULFATE ORAL ELIXIR 300 MG/5 ML CUP PO SCH ×2 (08:50→18:33)
[2018-08-29] MEDS: IPRATROPIUM-ALBUTEROL 3 ML NEB INHALATION SCH ×4 (08:58→20:11)
--- NOTE | 2018-08-29 09:00 | P.PN ---
Subjective Progress Note Date: 08/29/18 Principal diagnosis: Non-ST elevation myocardial infarction, impaired left ventricular systolic function with EF 20-25%, acute on chronic systolic heart failure. History of hypertension, hypertriglyceridemia insulin-dependent diabetes mellitus with preoperative hemoglobin A1c 7.1%, COPD with preoperative FEV1 87% of predicted, previous tobacco dependence, prostate cancer with radiation, right nephrectomy, obesity, BPH. POD #11 urgent coronary artery bypass grafting 3 vessels, left internal mammary artery to left anterior descending artery, reverse saphenous vein graft to obtuse marginal artery, reverse saphenous vein graft to posterior descending artery, endoscopic vein harvest of the left greater saphenous vein, epi-aortic ultrasound, intraoperative transesophageal echocardiogram, closure of sternum using titanium plates and [place] cable system. Postoperative acute blood loss anemia, an expected outcome of surgery secondary to cardiopulmonary bypass and hemodilution. Postoperative delirium, an unexpected outcome. Postoperative acute respiratory distress requiring reintubation, prolonged mechanical ventilation, an unexpected outcome. Postoperative right lower lobe collapse, secondary to mucus plugging, an unexpected outcome POD #7 bronchoscopy, bronchial alveolar lavage of the right middle lobe, right lower lobe, and washings of both lungs performed by Dr. Almodovar. Postoperative atrial fibrillation, an expected outcome. Patient's currently sitting up in bed in no acute distress. Does periodically get short of breath. Currently on 8 L high flow nasal cannula, was on BiPAP overnight. Does complain of pain at his incisions which is controlled with current medication regimen. He is still coughing pretty forcefully. Decadron was added to his medication regimen yesterday. Objective - Vital Signs Vital signs: Vital Signs Temp 97.6 F 08/29/18 04:00 Pulse 52 L 08/29/18 07:00 Resp 20 08/29/18 07:00 BP 93/56 08/27/18 02:00 Pulse Ox 97 08/29/18 07:00 Intake & Output 08/28/18 08/29/18 08/29/18 18:59 06:59 18:59 Intake Total 1423.5 998.5 78 Output Total 1370 975 100 Balance 53.5 23.5 -22 Weight 108.6 kg 110.8 kg Intake: IV 998.5 998.5 78 Dextrose 5% in Water 1, 900 900 75 000 ml @ 75 mls/hr IV . [id number] [facility] Rx#:[id number] Piperacillin-Tazobactam 3 62.5 62.5 .375 gm In Dextrose/Water 1 50ml.bag @ 12.5 mls/hr IVPB Q8HR [facility] Rx#: [id number] pressure bags 36 36 3 Oral 425 Output: Urine 1370 975 100 Other: Voiding Method Indwelling Catheter Indwelling Catheter ABP, PAP, CO, CI - Last Documented Arterial Blood Pressure 126/50 Pulmonary Artery Pressure 40/20 Cardiac Output 6.7 Cardiac Index 3.3 - Constitutional General appearance: Present: cooperative, no acute distress, obese - Respiratory Details: Lungs sounds diminished bilaterally. Respirations even, slightly labored. Currently on 8 L high flow nasal cannula with oxygen saturation 97%. Able to achieve 500 mL on his incentive spirometry. Effective cough with productive yellow brown sputum. - Cardiovascular Details: S1, S2 present. Slow but regular rate and rhythm, sinus bradycardia on telemetry. A/V epicardial pacemaker wires present, connected to generator, AAI mode with backup rate 45 bpm. Palpable peripheral pulses bilaterally. Trace generalized edema present. No calf pain or tenderness noted. Right radial arterial line present. Heart hugger, antiembolism stockings, SCDs present. - Gastrointestinal Gastrointestinal Comment(s): Abdomen soft, nontender, nondistended. Active bowel sounds present 4 quadrants. Positive bowel movement. Tolerating minimal diet. - Genitourinary Genitourinary Comment(s): Usero present draining clear, yellow urine. Output overnight 75-100 mL per hour , 575 mL last 8 hours. - Integumentary Integumentary Comment(s): Skin is warm and dry with evidence of good perfusion. Anterior chest incision well approximated and covered with dry intact dressing. Left lower extremity EVH site well approximated, ecchymosis present, expected. - Neurologic Neurologic: Present: CNII-XII intact - Musculoskeletal Musculoskeletal: Present: strength equal bilaterally - Psychiatric Psychiatric: Present: A&O x's 3, appropriate affect, intact judgment & insight - Allied health notes Allied health notes reviewed: nursing - Labs CBC & Chem 7: 08/29/18 05:00 08/29/18 05:00 Labs: Abnormal Lab Results - Last 24 Hours (Table) 08/28/18 08/28/18 08/28/18 Range/Units 12:25 16:58 20:11 RBC (4.30-5.90) m/uL Hgb (13.0-17.5) gm/dL Hct (39.0-53.0) % MCHC (31.0-37.0) g/dL RDW (11.5-15.5) % Lymphocytes # (1.0-4.8) k/uL BUN (9-20) mg/dL Creatinine (0.66-1.25) mg/dL Glucose (74-99) mg/dL POC Glucose (mg/dL) 136 H 232 H 229 H (75-99) mg/dL Calcium (8.4-10.2) mg/dL Magnesium (1.6-2.3) mg/dL ALT (21-72) U/L Total Protein (6.3-8.2) g/dL Albumin (3.5-5.0) g/dL 08/29/18 08/29/18 08/29/18 Range/Units 01:03 01:35 04:19 RBC (4.30-5.90) m/uL Hgb (13.0-17.5) gm/dL Hct (39.0-53.0) % MCHC (31.0-37.0) g/dL RDW (11.5-15.5) % Lymphocytes # (1.0-4.8) k/uL BUN (9-20) mg/dL Creatinine (0.66-1.25) mg/dL Glucose (74-99) mg/dL POC Glucose (mg/dL) 252 H 247 H 232 H (75-99) mg/dL Calcium (8.4-10.2) mg/dL Magnesium (1.6-2.3) mg/dL ALT (21-72) U/L Total Protein (6.3-8.2) g/dL Albumin (3.5-5.0) g/dL 08/29/18 08/29/18 Range/Units 05:00 05:00 RBC 2.63 L (4.30-5.90) m/uL Hgb 7.7 L (13.0-17.5) gm/dL Hct 25.2 L (39.0-53.0) % MCHC 30.6 L (31.0-37.0) g/dL RDW 15.9 H (11.5-15.5) % Lymphocytes # 0.4 L (1.0-4.8) k/uL BUN 68 H (9-20) mg/dL Creatinine 1.72 H (0.66-1.25) mg/dL Glucose 203 H (74-99) mg/dL POC Glucose (mg/dL) (75-99) mg/dL Calcium 8.2 L (8.4-10.2) mg/dL Magnesium 2.7 H (1.6-2.3) mg/dL ALT 78 H (21-72) U/L Total Protein 5.4 L (6.3-8.2) g/dL Albumin 2.8 L (3.5-5.0) g/dL Microbiology - Last 24 Hours (Table) 08/25/18 09:49 Blood Culture - Preliminary Blood No Growth after 72 hours - Imaging and Cardiology Chest x-ray: report reviewed, image reviewed Assessment and Plan (1) CAD (coronary artery disease) Current Visit: Yes Status: Chronic Code(s): I25.10 - ATHSCL HEART DISEASE OF [place] CORONARY ARTERY W/O ANG PCTRS SNOMED Code(s): 16146017 (2) Left main coronary artery disease Current Visit: Yes Status: Chronic Code(s): I25.10 - ATHSCL HEART DISEASE OF [place] CORONARY ARTERY W/O ANG PCTRS SNOMED Code(s): 336662053 (3) Hypertension Current Visit: Yes Status: Chronic Code(s): I10 - ESSENTIAL (PRIMARY) HYPERTENSION SNOMED Code(s): 52336317 (4) Hyperlipidemia Current Visit: Yes Status: Chronic Code(s): E78.5 - HYPERLIPIDEMIA, UNSPECIFIED SNOMED Code(s): 54887040 (5) Insulin dependent diabetes mellitus Current Visit: Yes Status: Chronic Code(s): E11.9 - TYPE 2 DIABETES MELLITUS WITHOUT COMPLICATIONS; Z79.4 - [facility] (CURRENT) USE OF INSULIN SNOMED Code(s): 93109753 (6) Tobacco dependence in remission Current Visit: No Status: Resolved Code(s): F17.201 - NICOTINE DEPENDENCE, UNSPECIFIED, IN REMISSION SNOMED Code(s): 230493305 (7) COPD (chronic obstructive pulmonary disease) Current Visit: Yes Status: Chronic Code(s): J44.9 - CHRONIC OBSTRUCTIVE PULMONARY DISEASE, UNSPECIFIED SNOMED Code(s): 48620822 (8) History of nephrectomy Current Visit: Yes Status: Chronic Code(s): Z90.5 - ACQUIRED ABSENCE OF KIDNEY SNOMED Code(s): 92516703267747 (9) Family history of heart disease Current Visit: Yes Status: Chronic Code(s): Z82.49 - FAMILY HX OF ISCHEM HEART DIS AND OTH DIS OF THE CIRC SYS SNOMED Code(s): 011428032 (10) History of prostate cancer Current Visit: Yes Status: Chronic Code(s): Z85.46 - PERSONAL HISTORY OF MALIGNANT NEOPLASM OF PROSTATE SNOMED Code(s): 835544662 (11) NSTEMI (non-ST elevated myocardial infarction) Current Visit: Yes Status: Acute Code(s): I21.4 - NON-ST ELEVATION (NSTEMI) MYOCARDIAL INFARCTION SNOMED Code(s): 209175797 Plan: 1. Continue aspirin, statin, Plavix, beta laurie. Will increase beta laurie therapy as tolerated. Continue as needed Apresoline IV for hypertension. 2. Continue amiodarone for A. fib prophylaxis. No need for anticoagulation unless in atrial fibrillation for greater than 24 hours. 3. Wean O2 as tolerated. BiPAP management per pulmonology. Encourage incentive spirometry use 10 times every hour while off BiPAP. 4. Increase activity, up to chair today. PT/OT/cardiac rehab following. 5. Diet ordered. Encourage oral intake. 6. Continue IV steroids. 7. Bronchodilators, antibiotics per pulmonology. 8. Insulin per primary care service. 9. Will monitor daily labs and x-rays. Will follow culture results. Bronchial washings negative. 10. GI prophylaxis with Protonix. DVT prophylaxis with subcu heparin, SCDs. 11. Pain control with current medication regimen. 12. Discontinue Suero catheter, place condom cath. Bladder scan for postvoid residual every 6 hours, may straight cath for greater than 300 mL. Continue Flomax for BPH. 13. Will give Lasix 20 mg IV today. 14. More recommendations to follow. Time with Patient: Greater than 30
[2018-08-29 09:08] LABS: Glucose,Whole Blood 183 mg/dL (75-99)
--- NOTE | 2018-08-29 09:27 | P.PN ---
Subjective Progress Note Date: 08/29/18 Principal diagnosis: This is 73-year-old male followed up with acute kidney injury. He underwent cardiac cath on August 13 and cutting artery bypass graft on August 17. Extubated on August 25. Creatinine has been slowly improving to 1.72. He has a poor ejection fraction of 20-25%. Currently he is on nasal cannula, comfortable. Looks slightly short of breath. He's been coughing and it is dry. He is awake and alert. He had 23 45 mL of urine output. He is on D5W for hypernatremia Objective - Vital Signs Vital signs: Vital Signs Temp 97.6 F 08/29/18 04:00 Pulse 55 L 08/29/18 09:08 Resp 20 08/29/18 07:00 BP 93/56 08/27/18 02:00 Pulse Ox 97 08/29/18 08:55 Intake & Output 08/28/18 08/29/18 08/29/18 18:59 06:59 18:59 Intake Total 1423.5 998.5 78 Output Total 1370 975 100 Balance 53.5 23.5 -22 Weight 108.6 kg 110.8 kg Intake: IV 998.5 998.5 78 Dextrose 5% in Water 1, 900 900 75 000 ml @ 75 mls/hr IV . [id number] [facility] Rx#:[id number] Piperacillin-Tazobactam 3 62.5 62.5 .375 gm In Dextrose/Water 1 50ml.bag @ 12.5 mls/hr IVPB Q8HR [facility] Rx#: [id number] pressure bags 36 36 3 Oral 425 Output: Urine 1370 975 100 Other: Voiding Method Indwelling Catheter Indwelling Catheter ABP, PAP, CO, CI - Last Documented Arterial Blood Pressure 126/50 Pulmonary Artery Pressure 40/20 Cardiac Output 6.7 Cardiac Index 3.3 On examination awake alert oriented. Mildly short of breath. He had a bout of cough at the time of this exam. HEENT exam JVP is difficult to see but none is seen. Neck is supple no facial asymmetry Lungs are clear to auscultation fair air entry bilaterally. No crackles are heard. Heart sounds are unremarkable is in normal sinus rhythm. Abdomen is soft nontender no masses felt Extremity exam reveals minimal edema. Neurologically awake alert oriented moves all his extremities. - Labs CBC & Chem 7: 08/29/18 05:00 08/29/18 05:00 Labs: Abnormal Lab Results - Last 24 Hours (Table) 08/28/18 08/28/18 08/28/18 Range/Units 12:25 16:58 20:11 RBC (4.30-5.90) m/uL Hgb (13.0-17.5) gm/dL Hct (39.0-53.0) % MCHC (31.0-37.0) g/dL RDW (11.5-15.5) % Lymphocytes # (1.0-4.8) k/uL BUN (9-20) mg/dL Creatinine (0.66-1.25) mg/dL Glucose (74-99) mg/dL POC Glucose (mg/dL) 136 H 232 H 229 H (75-99) mg/dL Calcium (8.4-10.2) mg/dL Magnesium (1.6-2.3) mg/dL ALT (21-72) U/L Total Protein (6.3-8.2) g/dL Albumin (3.5-5.0) g/dL 08/29/18 08/29/18 08/29/18 Range/Units 01:03 01:35 04:19 RBC (4.30-5.90) m/uL Hgb (13.0-17.5) gm/dL Hct (39.0-53.0) % MCHC (31.0-37.0) g/dL RDW (11.5-15.5) % Lymphocytes # (1.0-4.8) k/uL BUN (9-20) mg/dL Creatinine (0.66-1.25) mg/dL Glucose (74-99) mg/dL POC Glucose (mg/dL) 252 H 247 H 232 H (75-99) mg/dL Calcium (8.4-10.2) mg/dL Magnesium (1.6-2.3) mg/dL ALT (21-72) U/L Total Protein (6.3-8.2) g/dL Albumin (3.5-5.0) g/dL 08/29/18 08/29/18 08/29/18 Range/Units 05:00 05:00 09:06 RBC 2.63 L (4.30-5.90) m/uL Hgb 7.7 L (13.0-17.5) gm/dL Hct 25.2 L (39.0-53.0) % MCHC 30.6 L (31.0-37.0) g/dL RDW 15.9 H (11.5-15.5) % Lymphocytes # 0.4 L (1.0-4.8) k/uL BUN 68 H (9-20) mg/dL Creatinine 1.72 H (0.66-1.25) mg/dL Glucose 203 H (74-99) mg/dL POC Glucose (mg/dL) 183 H (75-99) mg/dL Calcium 8.2 L (8.4-10.2) mg/dL Magnesium 2.7 H (1.6-2.3) mg/dL ALT 78 H (21-72) U/L Total Protein 5.4 L (6.3-8.2) g/dL Albumin 2.8 L (3.5-5.0) g/dL Microbiology - Last 24 Hours (Table) 08/25/18 09:49 Blood Culture - Preliminary Blood No Growth after 72 hours Assessment and Plan Assessment: Impression 1. Acute kidney injury secondary to hypotension and ST segment elevation [place]. Creatinine stable at 1.7 same as yesterday with good urine output. 2. Solitary kidney status post motor laxity and remote past. 3. Possible chronic kidney disease. Baseline creatinine unknown 4. Status post cardiac catheterization August 14, coronary artery bypass graft August 17. 5. Hyponatremia secondary to acute kidney injury and lack of free water intake currently on D5W with improvement. Sodium is improved to 140, from a peak of 148 on 08/26/2018 6. Diabetes mellitus. 7. Cardiomyopathy ejection fraction is 20-25% 8. Worsening right-sided pleural effusion. 9. Anemia hemoglobin 7.7, down from 13 on 08/17/2018 Recommendation. 1. Start Lasix 20 mg every 122 doses and reassess tomorrow. 2. Reduce D5W to 40 mL an hour from 75 mL. 3. Maintain close monitoring of sodium and renal function. 4. Check iron saturation.
[2018-08-29] MEDS ORDERED: DEXTROSE 5% IN WATER 1,000 ML IV ONE (09:28)
[2018-08-29] MEDS: FUROSEMIDE 10 MG/ML 2 ML VIAL IV SCH ×2 (09:59→20:13)
--- NOTE | 2018-08-29 11:30 | P.PN ---
Subjective Progress Note Date: 08/29/18 Principal diagnosis: Coronary artery disease status post coronary artery bypass grafting This is a 73-year-old white male patient of Dr. Joy Reagan, who presented emergency department on 08/13/2018 at 1840 evaluation of chest pain, associated with diaphoresis. The pain was non-radiating, and occurred after eating some spicy soup, patient was belching, and had some nausea. No vomiting. EKG showed some ST and T-wave abnormalities in the inferior, anterior, and lateral leads with T-wave inversion. Troponins were elevated at 0.128, 11.8, 11.8 and 9.270, patient was ruled in for non-ST elevated OH. Patient was placed on IV heparin, aspirin, Coreg, nitroglycerin and he underwent cardiac catheterization this afternoon with Dr. ALISHA Harper which showed a distal lesion of the left main of 70% before bifurcation into LAD and circumflex with calcification, 60% narrowing in the LAD at the origin of the first diagonal branch, 70% stenosis in the LAD at the origin of the second diagonal branch with probable thrombus, first obtuse marginal with 80-90% stenosis proximally, and 60% narrowing in the circumflex after the first obtuse marginal, total occlusion of the proximal RCA with some collateral circulation from the left system to the right. Patient has past medical history of coronary artery disease, COPD, diabetes mellitus type 2, hypertension, previous nicotine dependence, history of right nephrectomy in 1969 and chronic kidney disease. Patient was recommended to undergo coronary revascularization and cardiothoracic surgery has been consulted. We are seeing this patient for pulmonary evaluation. On 08/15/2018, the patient has no specific complaints. He is not having any chest pain. Resting comfortably in bed. Bedside spirometry was noted and there is no significant obstructive airway limitation. Chest x-ray was reviewed and showed some elevation of the right hemidiaphragm. Otherwise there is some subsegmental atelectatic changes in the lung bases. He is an ex- smoker. He is an obese male patient with a BMI of 39.0. No previous history of DVT or pulmonary embolism. No home O2. He is an ex-smoker. Overall performance status is good. On 08/16/2018 patient seen in follow-up on selective care unit. He sitting up on bed, in no acute distress, denies any shortness of breath. No chest pain, he is on heparin drip. Room air pulse ox is 94%, vital signs are stable. Lung sounds are clear. Patient is possibly scheduled for surgical revascularization surgery on 08/17/2018. No acute complaints overnight. Sinus rhythm. On 08/17/2018 patient seen in follow-up in the intensive care unit, he is status post three-vessel coronary artery bypass grafting, with CHAHAL to LAD, SVG to the PDA, and circumflex. Patient is currently sedated, intubated, on mechanical ventilator, and current vent settings are SIMV mode with a rate of 12 , tidal volume 500, FiO2 of 50% and PEEP of 10. IV drips include LR at a rate of 40, levothyroid at a rate of 10 mics per minute, Primacor is at 0.2 mics per kilo per minute, Precedex is at 0.2 mics per kilo per hour. Patient received 1500 of crystalloids and 1500 mL of 5% albumin, in addition to Cell Saver. [place] -Eliazar catheter is in place, with PA pressures of 50/32, CVP of 25, cardiac output of 7.3, and cardiac index of 3.6. Patient has 2 mediastinal chest tubes and left pleural chest tubes with small amount of sanguinous output. AV epicardial wires are in place, patient is currently being paced at her mode of AAI with a rate of 80 BPM. The blood work showed WBC of 8.6, hemoglobin of 8.5 , INR 1.2, sodium of 140, potassium is 4.8, chloride is 110, BUN of 21, creatinine is 1.09. Blood gas showed pO2 of 79, pCO2 of 53, pH of 7.25. Vent settings were adjusted, and rate was increased to IMV with a rate of 18 breaths per minute. Suero catheter is in place, and patient is producing 30-50 ML per hour. On 08/26/2018 patient seen again in follow-up in the intensive care unit. He was extubated yesterday on 08/25/2018 to BiPAP. He remains on BiPAP support, currently at pressures 10 and 5, and 50%. Post extubation patient was noted to be a bit stridorous, his voice is hoarse, and patient has persistent nonproductive cough. He was given 2 doses of IV Decadron yesterday. This morning patient is awake and alert, oriented to self, and place. Disoriented to time. He is still having the persistent cough, and his voice remains hoarse. He was given a trial of nasal cannula, and he was quite anxious, tachypneic. He could not complete his bedside swallow evaluation in view of persistent coughing, and tachypnea. We will give the patient additional doses of Decadron, Precedex was discontinued yesterday, she remains on Seroquel 50 mg twice daily, will add small doses of Ativan 3 times a day as needed for anxiety. He is in sinus rhythm currently a bit tachycardic, with a heart rate of 115. Lung sounds are positive for a few rhonchi, no significant wheezing on today's exam. This chest x-ray was reviewed, and showed stable findings, with right basilar opacity, pulmonary venous congestion, and cardiomegaly. Today's labs were reviewed, WBC 7.6, hemoglobin 7.1, sodium is 148, chloride is 113, BUN is 60, creatinine is 1.85. Patient's maintenance IV fluids is lactated Ringer's at 20 mL per hour. Switch the IV fluids to D5W at a rate of 75 ML per hour. On 08/27/2018 patient seen in follow-up in the intensive care unit, he remains on BiPAP support, currently with pressures of 12 and 5, and FiO2 of 60%. He is awake and alert, oriented 2, to person and place. Seems a bit less anxious today, his voice is less hoarse. Patient was given 4 more doses of IV Decadron and racemic epinephrine.. Lung sounds are essentially clear, with minimal crackles at the bilateral bases. Today's checks chest x-ray has been reviewed and showed pulmonary vascular congestion/mild interstitial edema which has slightly worsened, and moderate right and increasing small to moderate left pleural effusions with adjacent atelectasis. CT surgery has ordered a dose of IV Lasix today, we will give the patient a trial on nasal cannula. Today's labs were reviewed, Rabia BC is 8.4, hemoglobin is 7.6, sodium is 145, potassium is 4.7, chloride is 111, BUN is 68, and creatinine is 1.8. Patient had some bouts of diarrhea yesterday, C. diff was negative. Patient is producing urine, in the order of 40-50 ML per hour. He has been afebrile. Yesterday he had a short run of A. fib RVR with the wide QRS complex, patient was already receiving oral amiodarone, he is currently on amiodarone drip at 0.5 mg/min, patient had converted back to sinus. Maintenance IV fluid is D5W at a rate of 75 ML per hour. This morning he remains in sinus rhythm, and the rate is controlled 65 BPM. On 08/28/2018 patient seen in follow-up in the intensive care unit, remains on BiPAP support, with pressures of 12 and 5, 60%. Yesterday patient did tolerate 3 hours of nasal cannula trial, but afterwards became tachypneic, and labored breathing, and had to be placed back on BiPAP support. This morning he is awake and alert, he is oriented to self, and place. Denies any acute distress, lung sounds are relatively clear, with only a few minimal crackles. D5W is running at a rate of 75 ML per hour. No other drips. Today's chest x-ray has been reviewed, and shows cardiomegaly, and bilateral pleural effusions, patient was given a dose of IV Lasix yesterday. Patient did pass a swallow evaluation, and has been eating. He remains nonoliguric, he denies any shortness of breath or chest pain. His heart rate is controlled, he is actually a bit bradycardiac at the moment, sinus rhythm with a rate of 55 BPM. Microbiology remains negative. The patient is seen again today 08/29/2018 in follow-up in the intensive care unit. Postoperative day #11. He is currently resting comfortably in bed. He is awake and alert in no acute distress. He is currently on high flow nasal cannula at 6 L/m. Off the BiPAP. Chest x-ray shows right lower lobe collapse with right pleural effusions. Lasix 20 mg IV today. He needs increased encouragement regarding the use the incentive spirometer and cough and deep breathing exercises. Bronchial wash findings reveal no growth. Blood culture shows no growth. Urine culture no growth. Continued on bronchodilators and Zosyn. White count 6.7. Hemoglobin 7.7. Creatinine 1.72. He is currently in sinus rhythm. Remains on oral amiodarone. Backup pacing remains in place. Objective - Vital Signs Vital signs: Vital Signs Temp 98.6 F 08/29/18 08:00 Pulse 57 L 08/29/18 10:00 Resp 22 08/29/18 10:00 BP 93/56 08/27/18 02:00 Pulse Ox 95 08/29/18 10:00 Intake & Output 08/28/18 08/29/18 08/29/18 18:59 06:59 18:59 Intake Total 1423.5 998.5 437 Output Total 1370 975 325 Balance 53.5 23.5 112 Weight 108.6 kg 110.8 kg Intake: IV 998.5 998.5 312 Dextrose 5% in Water 1, 900 900 300 000 ml @ 75 mls/hr IV . [id number] ALEXEY Rx#:[id number] Piperacillin-Tazobactam 3 62.5 62.5 .375 gm In Dextrose/Water 1 50ml.bag @ 12.5 mls/hr IVPB Q8HR ALEXEY Rx#: [id number] pressure bags 36 36 12 Oral 425 125 Output: Urine 1370 975 325 Other: Voiding Method Indwelling Catheter Indwelling Catheter Indwelling Catheter ABP, PAP, CO, CI - Last Documented Arterial Blood Pressure 278/278 Pulmonary Artery Pressure 40/20 Cardiac Output 6.7 Cardiac Index 3.3 - Exam GENERAL EXAM: Awake, alert. Currently on high flow nasal cannula at 6 L/m per nasal cannula. HEAD: Normocephalic/atraumatic. EYES: Normal reaction of pupils, equal size. Conjunctiva pink, sclera white. NOSE: Clear with pink turbinates. MOUTH: Missing teeth THROAT: No erythema or exudates. NECK: No masses, no JVD, no thyroid enlargement, no adenopathy. CHEST: No chest wall deformity. Symmetrical expansion. Sternal incision is clean dry and intact, covered with a surgical dressing, Epicardial AV pacemaker wires are present connected to an external pacemaker currently with a backup rate of VVI 50 LUNGS: Equal air entry with crackles in the posterior bases right greater than left. Diminished in the right base. CVS: Regular rate and rhythm, normal S1 and S2, no gallops, no murmurs, no rubs. ABDOMEN: Soft, nontender. No hepatosplenomegaly, normal bowel sounds, no guarding or rigidity. EXTREMITIES: No clubbing, no edema, no cyanosis, 2+ pulses and upper and lower extremities. Bilateral lower extremities are Hiren wrapped, SCDs are present MUSCULOSKELETAL: Muscle strength and tone normal. SPINE: No scoliosis or deformity SKIN: No rashes CENTRAL NERVOUS SYSTEM: Sedated. No focal deficits, tone is normal in all 4 extremities. - Labs CBC & Chem 7: 08/29/18 05:00 08/29/18 05:00 Labs: Abnormal Lab Results - Last 24 Hours (Table) 08/28/18 08/28/18 08/28/18 Range/Units 12:25 16:58 20:11 RBC (4.30-5.90) m/uL Hgb (13.0-17.5) gm/dL Hct (39.0-53.0) % MCHC (31.0-37.0) g/dL RDW (11.5-15.5) % Lymphocytes # (1.0-4.8) k/uL BUN (9-20) mg/dL Creatinine (0.66-1.25) mg/dL Glucose (74-99) mg/dL POC Glucose (mg/dL) 136 H 232 H 229 H (75-99) mg/dL Calcium (8.4-10.2) mg/dL Magnesium (1.6-2.3) mg/dL ALT (21-72) U/L Total Protein (6.3-8.2) g/dL Albumin (3.5-5.0) g/dL 08/29/18 08/29/18 08/29/18 Range/Units 01:03 01:35 04:19 RBC (4.30-5.90) m/uL Hgb (13.0-17.5) gm/dL Hct (39.0-53.0) % MCHC (31.0-37.0) g/dL RDW (11.5-15.5) % Lymphocytes # (1.0-4.8) k/uL BUN (9-20) mg/dL Creatinine (0.66-1.25) mg/dL Glucose (74-99) mg/dL POC Glucose (mg/dL) 252 H 247 H 232 H (75-99) mg/dL Calcium (8.4-10.2) mg/dL Magnesium (1.6-2.3) mg/dL ALT (21-72) U/L Total Protein (6.3-8.2) g/dL Albumin (3.5-5.0) g/dL 08/29/18 08/29/18 08/29/18 Range/Units 05:00 05:00 09:06 RBC 2.63 L (4.30-5.90) m/uL Hgb 7.7 L (13.0-17.5) gm/dL Hct 25.2 L (39.0-53.0) % MCHC 30.6 L (31.0-37.0) g/dL RDW 15.9 H (11.5-15.5) % Lymphocytes # 0.4 L (1.0-4.8) k/uL BUN 68 H (9-20) mg/dL Creatinine 1.72 H (0.66-1.25) mg/dL Glucose 203 H (74-99) mg/dL POC Glucose (mg/dL) 183 H (75-99) mg/dL Calcium 8.2 L (8.4-10.2) mg/dL Magnesium 2.7 H (1.6-2.3) mg/dL ALT 78 H (21-72) U/L Total Protein 5.4 L (6.3-8.2) g/dL Albumin 2.8 L (3.5-5.0) g/dL Microbiology - Last 24 Hours (Table) 08/25/18 09:49 Blood Culture - Preliminary Blood No Growth after 72 hours Assessment and Plan Assessment: Impression: #1 Acute non-ST segment elevation myocardial infarction, status post coronary artery bypass grafting 3 utilizing a CHAHAL to the LAD, reverse saphenous finger vein graft to the obtuse marginal artery, posterior descending artery. Performed on 08/17/2018. #2 Ischemic cardiomyopathy with severely impaired left ventricular systolic function ejection fraction 20-25%. #3 Acute hypoxic respiratory failure requiring reintubation on 08/20/2018. Second extubation 08/25/2018. Requiring BiPAP support. Currently on 6 L high flow nasal cannula. #4 Atrial fibrillation with wide complex tachycardia, on oral amiodarone. Currently in sinus rhythm. #5 ICU psychosis and delirium, improving. #6 Right lower lobe collapse, status post bronchoscopy on 08/21/2018. Bronchial washings with no growth thus far. #7 Diabetes mellitus. #8 Chronic tobacco dependence. #9 Chronic obstructive pulmonary disease, currently inactive and stable. #10 History of prostate cancer. #11 Hyperlipidemia. #12 Hypertension. #13 History of nephrectomy. Plan: The patient was seen and evaluated by Dr. Aguillon. Chest x-ray and labs were reviewed. We'll go ahead and obtain an ultrasound of the right chest. We've ordered respiratory therapy to perform percussion to that area. We'll continue to titrate his FiO2 will maintaining O2 saturations greater than 92%. Continue his current medications. Again encourage increased use the incentive spirometer and cough and deep breathing exercises. Increase his activity as tolerated. We'll continue to follow. Critical care time 37 minutes. I, the cosigning physician, performed a history & physical examination of the patient. Lungs sounds with crackles in the posterior bases right greater than left, diminished in the right base.. Maintaining good O2 saturations in the 90s on 6 L high flow nasal cannula. I discussed the assessment and plan of care with my nurse practitioner, Velia Jonas. I attest to the above note as dictated by her. Time with Patient: Greater than 30
--- NOTE | 2018-08-29 11:37 | US ---
EXAMINATION TYPE: US chest DATE OF EXAM: 08/29/2018 COMPARISON: Previous study dated 08/27/2018. CLINICAL HISTORY: Effusion . TECHNIQUE: Targeted ultrasound of the posterior lower right hemithorax EXAM MEASUREMENTS: Right Pleural Effusion pocket size: 6.7 cm Right skin surface to fluid distance: 2.8 cm Lung noted at 2.0 cm Right side marked for possible thoracentesis outside the dept. Pulmonologists are able to review the images in the patient?s EMR. IMPRESSIONS: RIGHT-SIDED PLEURAL EFFUSION.
[2018-08-29 11:48] LABS: Glucose,Whole Blood 208 mg/dL (75-99)
--- NOTE | 2018-08-29 14:31 | PN ---
PROGRESS NOTE This is a 73-year-old gentleman with CAD, status post CABG, has had respiratory failure, had recurrent episodes of pleural effusions. This morning, he is feeling better and denies any chest pain. patient had bypass surgery on 08/17/2018. Has ischemic cardiomyopathy with severe LV dysfunction. Patient has history of atrial fibrillation which is currently in sinus rhythm on oral amiodarone. PHYSICAL EXAM: He is comfortable at rest. Heart rate is 56 beats per minute. Blood pressure is 136/49, respiratory rate is 18. Chest exam reveals diminished air entry at the bases. Heart exam reveals first and second heart sounds. No gallop. Exam of extremities reveals bilateral 1+ pitting edema. LABS: Show a hemoglobin of 7.7. BUN is 68, creatinine is 1.7. Patient is currently on amiodarone 400 b.i.d., aspirin, Lipitor, Plavix, Lasix 20 mg q.12. ASSESSMENT: 1. Coronary artery disease status post coronary artery bypass grafting. 2. Ischemic cardiomyopathy with congestive heart failure. 3. Recurrent pleural effusion. 4. History of atrial fibrillation. PLAN: Will continue with current medical therapy. Patient will have ultrasound mapping of his pleural effusion and if possible, will undergo thoracentesis. MMODL / IJN: [id number] /
--- NOTE | 2018-08-29 16:09 | P.PN ---
Subjective Progress Note Date: 08/29/18 This is a 73-year-old male, patient of [facility]. He has a known past medical history of hypertension, diabetes mellitus, COPD, right nephrectomy 1970 and former smoker. Patient presents to the emergency room with complaints of chest pain with pressure and heaviness and diaphoresis. Symptoms had started yesterday. Patient was diagnosed with a non-ST elevated DE. Initial troponin 0.128 then 11.6 and 11.8. Patient was started on IV heparin cardiology was consulted. And patient underwent heart catheterization today. The heart catheterization shows total occlusion of the right coronary artery. Left main is 70-75% stenosed. The left anterior descending coronary artery has a mid lesion of 70% with thrombus. Obtuse marginal had 80-85% stenosis. Cardiology is recommending open-heart surgery. That her surgery has been consulted. They have already evaluated patient and surgery we'll possibly be on Friday. Pulmonary service has also been consulted. Patient is receiving IV fluids. He was slightly dehydrated on admission creatinine was 1.44. Unclear baseline creatinine. Creatinine in March 2018 was 1.3. Patient currently is chest pain-free. He reports that symptoms started after eating spicy soup and when he came back home he belched a large amount of gas and is relieved the pressure. He has been chest pain-free. Cardiology has placed him on IV heparin and Aggrastat. On 08/15/2018 patient was seen and examined he is alert and oriented 3 in no apparent distress he is sitting at the edge of the bed and he denies any chest pain there is no shortness of breath at rest he has occasional cough no palpitation no nausea or vomiting no abdominal pain no diarrhea no constipation no burning with urination no frequency or urgency and no hematuria. On 08/16/2018 patient was seen and examined on the telemetry floor he is alert and oriented 3 in no distress he denies any new episodes of chest pain he denies any other symptoms there is no fever or chills no headache or dizziness no shortness of breath no cough no nausea or vomiting no abdominal pain no diarrhea no burning was urination no frequency or urgency and no hematuria On 08/17/2018 Patient had coronary artery bypass graft [address] Hannah today. Patient currently intubated and on sedation. Patient remains in the intensive care unit. Patient currently on levophed for pressure support. On 08/18/2018 patient is currently postop day 1 and coronary artery bypass graft surgery. Patient is currently up in chair. Patient was extubated throughout night. Precedex drip has been DC'd per cardiovascular team. Patient remains sleepy but alert and arousable. At this time patient denies shortness of breath. Denies nausea vomiting or diarrhea. Denies any urinary burning. On 08/19/2018 patient is currently postop day 2 from coronary artery bypass graft. Per nursing staff patient is confused. Patient is also requiring BiPAP to maintain adequate oxygenation. Discussed case with Luna from the cardiovascular surgical team. Patient remains on Precedex drip. safety sitting at bedside. On 08/20/2018 patient is currently postop day 2 from coronary artery bypass graft. Patient remains on BiPAP for adequate oxygen. Precedex drip has been DC 'd. Patient does seem more alert. Patient followed closely by cardiovascular surgical team and critical care On 08/21/2018 patient got reintubated last night due to agitation and hypoxia. Patient is currently on propofol for sedation. Patient also started on Levophed for pressure support. Critical care team following closely. On 08/22/2018 patient got reintubated due to agitation and hypoxia. Patient is currently on propofol for sedation. Patient also started on Levophed for pressure support. Critical care team following closely. On 08/23/2018 patient is intubated sedated maintained on mechanical ventilation , he had a sedation holiday for about 1 hour at that time he was following commands. At this time he is back on sedation urine output is adequate. Hemoglobin is down to 7.2 On 08/24/2018 patient remains intubated on mechanical ventilation in the intensive care unit. Per nursing staff patient becomes agitated during sedation holidays. Hemoglobin decreasing to 7.1. Sedation holiday will be attempted again today. On 08/25/2018 patient recently extubated this a.m. Patient currently on BiPAP. Patient remains on Precedex drip. Patient is responsive to name. Patient having elevated temps at 101.3. Urine and blood cultures have been ordered per surgical vascular team. Bronchoscopy washing cultures showing no organisms at this time. On 08/26/2018 patient remains extubated on BiPAP. Patient is responsive to name in follow some commands. Long acting insulin increased to 20 units daily. Urine and blood cultures pending. Patient still having low-grade temps 100.4. On 08/27/2018 patient currently on BiPAP. Patient did have episode of A. fib with RVR throughout night. Patient currently on amiodarone drip per cardiovascular surgery. Swallow jayda will be assessed today. At this time patient is awake and alert. On 08/28/2018 she currently remains on BiPAP. Per nursing staff patient is only able to tolerate being off BiPAP temporarily due to increased respiratory rate. Patient is eating. Patient is awake and alert. Patient remains in the intensive care unit On 08/29/2018 patient was seen and examined in ICU he is alert and oriented in no apparent distress he is maintained on oxygen via nasal cannula and is tolerating well he denies any chest pain at this time there is no fever or chills there is occasional cough no shortness of breath at rest no nausea or vomiting no abdominal pain he had 2 episodes of loose stools there is no urinary symptoms Objective - Vital Signs Vital signs: Vital Signs Temp 98.0 F 08/29/18 16:00 Pulse 62 08/29/18 16:02 Resp 22 08/29/18 16:00 BP 93/56 08/27/18 02:00 Pulse Ox 100 08/29/18 16:00 Intake & Output 08/28/18 08/29/18 08/29/18 18:59 06:59 18:59 Intake Total 1423.5 998.5 905 Output Total 1370 975 375 Balance 53.5 23.5 530 Weight 108.6 kg 110.8 kg Intake: IV 998.5 998.5 780 Dextrose 5% in Water 1, 900 900 750 000 ml @ 75 mls/hr IV . [id number] [facility] Rx#:[id number] Piperacillin-Tazobactam 3 62.5 62.5 .375 gm In Dextrose/Water 1 50ml.bag @ 12.5 mls/hr IVPB Q8HR [facility] Rx#: [id number] pressure bags 36 36 30 Oral 425 125 Output: Urine 1370 975 375 Other: Voiding Method Indwelling Catheter Indwelling Catheter Indwelling Catheter # Voids 1 # Bowel Movements 1 ABP, PAP, CO, CI - Last Documented Arterial Blood Pressure 141/59 Pulmonary Artery Pressure 40/20 Cardiac Output 6.7 Cardiac Index 3.3 - Exam Patient is alert and oriented in no apparent distress maintained on oxygen via nasal cannula and is tolerating well at this time Head normocephalic and atraumatic Neck supple no JVD no goiter Lungs patient currently intubated Heart regular rate and rhythm S1-S2, no rub or gallop Abdomen is soft nontender nondistended positive bowel sounds no hepatosplenomegaly Extremities no edema no cyanosis or clubbing - Labs CBC & Chem 7: 08/29/18 05:00 08/29/18 05:00 Labs: Abnormal Lab Results - Last 24 Hours (Table) 08/28/18 08/28/18 08/29/18 Range/Units 16:58 20:11 01:03 RBC (4.30-5.90) m/uL Hgb (13.0-17.5) gm/dL Hct (39.0-53.0) % MCHC (31.0-37.0) g/dL RDW (11.5-15.5) % Lymphocytes # (1.0-4.8) k/uL BUN (9-20) mg/dL Creatinine (0.66-1.25) mg/dL Glucose (74-99) mg/dL POC Glucose (mg/dL) 232 H 229 H 252 H (75-99) mg/dL Calcium (8.4-10.2) mg/dL Magnesium (1.6-2.3) mg/dL ALT (21-72) U/L Total Protein (6.3-8.2) g/dL Albumin (3.5-5.0) g/dL 08/29/18 08/29/18 08/29/18 Range/Units 01:35 04:19 05:00 RBC 2.63 L (4.30-5.90) m/uL Hgb 7.7 L (13.0-17.5) gm/dL Hct 25.2 L (39.0-53.0) % MCHC 30.6 L (31.0-37.0) g/dL RDW 15.9 H (11.5-15.5) % Lymphocytes # 0.4 L (1.0-4.8) k/uL BUN (9-20) mg/dL Creatinine (0.66-1.25) mg/dL Glucose (74-99) mg/dL POC Glucose (mg/dL) 247 H 232 H (75-99) mg/dL Calcium (8.4-10.2) mg/dL Magnesium (1.6-2.3) mg/dL ALT (21-72) U/L Total Protein (6.3-8.2) g/dL Albumin (3.5-5.0) g/dL 08/29/18 08/29/18 08/29/18 Range/Units 05:00 09:06 11:46 RBC (4.30-5.90) m/uL Hgb (13.0-17.5) gm/dL Hct (39.0-53.0) % MCHC (31.0-37.0) g/dL RDW (11.5-15.5) % Lymphocytes # (1.0-4.8) k/uL BUN 68 H (9-20) mg/dL Creatinine 1.72 H (0.66-1.25) mg/dL Glucose 203 H (74-99) mg/dL POC Glucose (mg/dL) 183 H 208 H (75-99) mg/dL Calcium 8.2 L (8.4-10.2) mg/dL Magnesium 2.7 H (1.6-2.3) mg/dL ALT 78 H (21-72) U/L Total Protein 5.4 L (6.3-8.2) g/dL Albumin 2.8 L (3.5-5.0) g/dL Microbiology - Last 24 Hours (Table) 08/25/18 09:49 Blood Culture - Preliminary Blood No Growth after 96 hours Assessment and Plan Plan: 1. Status post coronary artery bypass graft [address] Hannah postop day 10. The CHAHAL to LAD, SVG to PDA and Circ. Patient currently intubated and on sedation. Cardiovascular team and critical care team following closely. Patient currently up in chair. Patient has been extubated throughout night. hemoglobin 7.9. Discussed case with Luna per cardiovascular surgical team 2-D echo has been ordered due to diminished heart sounds. Hemoglobin 7.3. On 08/20 Patieht required reintubation due to extreme agitation and hypoxia. Critical care team following closely. PICC line placement ordered per cardiovascular surgery 2. Acute respiratory failure. Patient required reintubation last night 08/20. Chest x-ray completed showing right pleural effusion and bilateral lower lobe pulmonary infiltrates. There is probably mild heart failure. Endotracheal tube is in good position. Heart and lungs appear unchanged. Chest ultrasound completed showing small to tiny bilateral pleural effusions. Per pulmonary team No thoracentesis at this time. Status post bronchoscopy on 08/21/2018. Suspect right lower lobe collapse. Critical care and pulmonary services following closely. bronchial cultures pending. 08/25 patient extubated to BiPAP. Chest x-ray completed 928 showing cardiomegaly and bilateral pleural effusions 3. Acute Non-ST elevated myocardial infarction: Heart catheterization showing multivessel coronary artery disease with thrombus in the LAD. Patient has been seen by vascular surgery and planning for open heart surgery on Friday. Continue IV heparin and Aggrastat per cardiology. Continue with IV fluids. Pulmonary service also consulted for preop clearance. 4. Acute kidney injury: Unclear patient has chronic kidney disease. Creatinine in March 2018 was 1.3. Continue with IV fluid hydration. Creatinine 1.42. Continue to monitor closely. Creatinine continued to increase to 1.60. Discussed case with Luna gardner from cardiovascular surgery will continue to monitor closely at this point. Creatinine improving to 1.40 and bun 41. Nephrology following. Continue Lasix 40 mg IV daily per nephrology. Creatinine 1.80 and Bun 60. 5. Essential hypertension 6. Diabetes mellitus insulin-dependent. Hemoglobin A1c 7.9. Patient on sliding scale insulin. Lantus 10 units has been added. 08/27 Lantus has been increased to 25 units. Patient did pass followed swallow eval and now tolerating diet 7. History of COPD: No evidence of exacerbation. continue albuterol nebulizer as needed 8. BPH continue Flomax 9. Atelectasis noted on chest x-ray order incentive spirometer 10. Obesity BMI 39.4 kg 11. Possible acute ICU psychosis and delirium. Patient remains on Precedex. Critical care team following closely. On 08/20 patient required reintubation. patient extubated. 12. Expected acute blood loss anemia secondary to surgery. Hemoglobin 6.8. Cardiovascular surgery following closely. We'll continue to monitor closely. HemoGlobin 7.9 13. Elevated temperature. Patient febrile with 11.3. Blood and urine cultures have been ordered per cardiovascular team. WBC improving to 9.9 14. Postoperative atrial fibrillation, and expected outcome. Patient currently on amiodarone 15. Elevated liver enzymes. AST 85 and ALT 84. Discussed case with cardiothoracic BUS STARTER. Continue to monitor closely DVT prophylaxis heparin and GI prophylaxis Protonix
[2018-08-29 16:15] LABS: Glucose,Whole Blood 237 mg/dL (75-99)
[2018-08-29 19:56] LABS: Glucose,Whole Blood 204 mg/dL (75-99)
[2018-08-29] MEDS: INSULIN DETEMIR 100 UNIT/ML 10 ML VIAL SQ SCH (20:01)
[2018-08-29] MEDS: HYDROcodone/APAP 5-325MG 1 EACH TAB PO PRN (20:10)
[2018-08-29] MEDS: TAMSULOSIN 0.4 MG CAP.ER.24H PO SCH (20:18)
[2018-08-29] MEDS: SENNOSIDES-DOCUSATE SODIUM 1 EACH TAB PO SCH (20:18)
[2018-08-29 23:37] LABS: Glucose,Whole Blood 217 mg/dL (75-99)
[2018-08-30] MEDS: HYDROcodone/APAP 5-325MG 1 EACH TAB PO PRN ×2 (00:25→05:02)
[2018-08-30 04:12] LABS: Glucose,Whole Blood 172 mg/dL (75-99)
[2018-08-30] MEDS: INSULIN ASPART 100 UNIT/ML 1 ML 10 ML VIAL SQ SCH ×5 (04:13→21:50)
[2018-08-30 05:08] LABS: Anisocytosis Slight; Basophils % (A) 0 %; Eosinophils % (A) 0 %; HCT 27.6 % (39.0-53.0); HGB 8.8 gm/dL (13.0-17.5); Hypochromasia Moderate; Lymphocytes # (A) 0.5 k/uL (1.0-4.8); Lymphocytes % (A) 4 %; MCH 29.5 pg (25.0-35.0); MCHC 31.8 g/dL (31.0-37.0); Monocytes # (A) 0.3 k/uL (0-1.0); Monocytes % (A) 3 %; Neutrophils # (A) 10.7 k/uL (1.3-7.7); Neutrophils % (A) 92 %; Platelet Count 347 k/uL (150-450); RBC 2.97 m/uL (4.30-5.90); RDW 16.4 % (11.5-15.5); WBC 11.6 k/uL (3.8-10.6)
[2018-08-30 05:23] LABS: Potassium 4.6 mmol/L (3.5-5.1)
[2018-08-30 05:24] LABS: Calcium 8.6 mg/dL (8.4-10.2); Magnesium 2.5 mg/dL (1.6-2.3); Phosphorus 3.7 mg/dL (2.5-4.5); Total Bilirubin 0.7 mg/dL (0.2-1.3); Total Protein 5.8 g/dL (6.3-8.2)
[2018-08-30] MEDS: DEXAMETHASONE SOD PHOSPHATE 4 MG/ML 1 ML VIAL IV SCH (05:58)
--- NOTE | 2018-08-30 06:53 | XR ---
EXAMINATION TYPE: XR chest 1V portable DATE OF EXAM: 08/30/2018 HISTORY: post open heart surgery. REFERENCE: Previous study dated 08/29/2018. FINDINGS: There has been midline sternotomy. The heart is enlarged. There is opacity at the right lung base. At least part of this is a subpulmonic effusion. The overall appearance is very similar to previous. IMPRESSION: 1. CARDIOMEGALY. 2. CONTINUING RIGHT-SIDED SUBPULMONIC EFFUSION.
[2018-08-30] MEDS: IPRATROPIUM-ALBUTEROL 3 ML NEB INHALATION SCH ×4 (07:00→20:08)
[2018-08-30] MEDS ORDERED: PANTOPRAZOLE SODIUM 40 MG GRANULE PKT NG-TUBE SCH (07:30)
--- NOTE | 2018-08-30 08:09 | P.PN ---
Subjective Progress Note Date: 08/30/18 Principal diagnosis: Non-ST elevation myocardial infarction, impaired left ventricular systolic function with EF 20-25%, acute on chronic systolic heart failure. History of hypertension, hypertriglyceridemia insulin-dependent diabetes mellitus with preoperative hemoglobin A1c 7.1%, COPD with preoperative FEV1 87% of predicted, previous tobacco dependence, prostate cancer with radiation, right nephrectomy, obesity, BPH. POD #13 urgent coronary artery bypass grafting 3 vessels, left internal mammary artery to left anterior descending artery, reverse saphenous vein graft to obtuse marginal artery, reverse saphenous vein graft to posterior descending artery, endoscopic vein harvest of the left greater saphenous vein, epi-aortic ultrasound, intraoperative transesophageal echocardiogram, closure of sternum using titanium plates and Waterfall cable system. Postoperative acute blood loss anemia, an expected outcome of surgery secondary to cardiopulmonary bypass and hemodilution. Postoperative delirium, an unexpected outcome. Postoperative acute respiratory distress requiring reintubation, prolonged mechanical ventilation, an unexpected outcome. Postoperative right lower lobe collapse, secondary to mucus plugging, an unexpected outcome POD #9 bronchoscopy, bronchial alveolar lavage of the right middle lobe, right lower lobe, and washings of both lungs performed by Dr. Almodovar. Postoperative atrial fibrillation, an expected outcome. Patient's currently sitting up in bed in no acute distress. Does periodically get short of breath. Currently on 6 L high flow nasal cannula, was on BiPAP for a few hours last night. Does complain of pain at his incisions which is controlled with current medication regimen. He is still coughing pretty forcefully. Decadron was added to his medication regimen. The patient is more alert and aware. Objective - Vital Signs Vital signs: Vital Signs Temp 96.8 F L 08/30/18 04:00 Pulse 63 08/30/18 07:16 Resp 21 08/30/18 07:16 BP 93/56 08/27/18 02:00 Pulse Ox 96 08/30/18 07:00 Intake & Output 08/29/18 08/30/18 08/30/18 18:59 06:59 18:59 Intake Total 991 526 43 Output Total 375 580 350 Balance 616 -54 -307 Weight 107.9 kg Intake: IV 866 526 43 Dextrose 5% in Water 1, 80 440 40 000 ml @ 40 mls/hr IV . Q24H [facility] Rx#:[id number] Dextrose 5% in Water 1, 750 000 ml @ 75 mls/hr IV . [id number] [facility] Rx#:[id number] Piperacillin-Tazobactam 3 50 .375 gm In Dextrose/Water 1 50ml.bag @ 12.5 mls/hr IVPB Q8HR [facility] Rx#: [id number] pressure bags 36 36 3 Oral 125 Output: Urine 375 580 350 Other: Voiding Method Incontinent Incontinent # Voids 1 1 1 # Bowel Movements 1 ABP, PAP, CO, CI - Last Documented Arterial Blood Pressure 156/58 Pulmonary Artery Pressure 40/20 Cardiac Output 6.7 Cardiac Index 3.3 - Constitutional General appearance: Present: cooperative, no acute distress, obese - Respiratory Details: Lungs sounds diminished bilaterally, right greater than left. Respirations even , nonlabored. No stridor present. Currently on 6 L high flow nasal cannula with oxygen saturation 96%. Able to achieve 500 mL on his incentive spirometry. Effective cough with productive yellow brown sputum. - Cardiovascular Details: S1, S2 present. Regular rate and rhythm, sinus rhythm on telemetry. A/V epicardial pacemaker wires present, connected to generator, AAI mode with backup rate 45 bpm. Palpable peripheral pulses bilaterally. Trace generalized edema present. No calf pain or tenderness noted. Right radial arterial line present. Heart hugger, antiembolism stockings, SCDs present. - Gastrointestinal Gastrointestinal Comment(s): Abdomen soft, nontender, nondistended. Active bowel sounds present 4 quadrants. Positive bowel movement 08/29. Tolerating minimal diet. - Genitourinary Genitourinary Comment(s): Suero discontinued yesterday. Condom catheter applied, positive void, output 500 mL overnight. - Integumentary Integumentary Comment(s): Skin is warm and dry with evidence of good perfusion. Anterior chest incision well approximated and covered with dry intact dressing. Left lower extremity EVH site well approximated, ecchymosis present, expected. - Neurologic Neurologic: Present: CNII-XII intact - Musculoskeletal Musculoskeletal: Present: strength equal bilaterally - Psychiatric Psychiatric: Present: A&O x's 3, appropriate affect, intact judgment & insight - Allied health notes Allied health notes reviewed: nursing - Labs CBC & Chem 7: 08/30/18 04:30 08/30/18 04:30 Labs: Abnormal Lab Results - Last 24 Hours (Table) 08/29/18 08/29/18 08/29/18 Range/Units 09:06 11:46 16:14 WBC (3.8-10.6) k/uL RBC (4.30-5.90) m/uL Hgb (13.0-17.5) gm/dL Hct (39.0-53.0) % RDW (11.5-15.5) % Neutrophils # (1.3-7.7) k/uL Lymphocytes # (1.0-4.8) k/uL BUN (9-20) mg/dL Creatinine (0.66-1.25) mg/dL Glucose (74-99) mg/dL POC Glucose (mg/dL) 183 H 208 H 237 H (75-99) mg/dL Magnesium (1.6-2.3) mg/dL Total Protein (6.3-8.2) g/dL Albumin (3.5-5.0) g/dL 08/29/18 08/29/18 08/30/18 Range/Units 19:54 23:33 04:10 WBC (3.8-10.6) k/uL RBC (4.30-5.90) m/uL Hgb (13.0-17.5) gm/dL Hct (39.0-53.0) % RDW (11.5-15.5) % Neutrophils # (1.3-7.7) k/uL Lymphocytes # (1.0-4.8) k/uL BUN (9-20) mg/dL Creatinine (0.66-1.25) mg/dL Glucose (74-99) mg/dL POC Glucose (mg/dL) 204 H 217 H 172 H (75-99) mg/dL Magnesium (1.6-2.3) mg/dL Total Protein (6.3-8.2) g/dL Albumin (3.5-5.0) g/dL 08/30/18 08/30/18 Range/Units 04:30 04:30 WBC 11.6 H (3.8-10.6) k/uL RBC 2.97 L (4.30-5.90) m/uL Hgb 8.8 L (13.0-17.5) gm/dL Hct 27.6 L (39.0-53.0) % RDW 16.4 H (11.5-15.5) % Neutrophils # 10.7 H (1.3-7.7) k/uL Lymphocytes # 0.5 L (1.0-4.8) k/uL BUN 63 H (9-20) mg/dL Creatinine 1.74 H (0.66-1.25) mg/dL Glucose 146 H (74-99) mg/dL POC Glucose (mg/dL) (75-99) mg/dL Magnesium 2.5 H (1.6-2.3) mg/dL Total Protein 5.8 L (6.3-8.2) g/dL Albumin 3.0 L (3.5-5.0) g/dL Microbiology - Last 24 Hours (Table) 08/25/18 09:49 Blood Culture - Preliminary Blood No Growth after 96 hours - Imaging and Cardiology Chest x-ray: report reviewed, image reviewed Assessment and Plan (1) CAD (coronary artery disease) Current Visit: Yes Status: Chronic Code(s): I25.10 - ATHSCL HEART DISEASE OF [place] CORONARY ARTERY W/O ANG PCTRS SNOMED Code(s): 68235948 (2) Left main coronary artery disease Current Visit: Yes Status: Chronic Code(s): I25.10 - ATHSCL HEART DISEASE OF [place] CORONARY ARTERY W/O ANG PCTRS SNOMED Code(s): 549014759 (3) Hypertension Current Visit: Yes Status: Chronic Code(s): I10 - ESSENTIAL (PRIMARY) HYPERTENSION SNOMED Code(s): 66192756 (4) Hyperlipidemia Current Visit: Yes Status: Chronic Code(s): E78.5 - HYPERLIPIDEMIA, UNSPECIFIED SNOMED Code(s): 05836780 (5) Insulin dependent diabetes mellitus Current Visit: Yes Status: Chronic Code(s): E11.9 - TYPE 2 DIABETES MELLITUS WITHOUT COMPLICATIONS; Z79.4 - SKILLED NURSING (CURRENT) USE OF INSULIN SNOMED Code(s): 22686276 (6) Tobacco dependence in remission Current Visit: No Status: Resolved Code(s): F17.201 - NICOTINE DEPENDENCE, UNSPECIFIED, IN REMISSION SNOMED Code(s): 669806840 (7) COPD (chronic obstructive pulmonary disease) Current Visit: Yes Status: Chronic Code(s): J44.9 - CHRONIC OBSTRUCTIVE PULMONARY DISEASE, UNSPECIFIED SNOMED Code(s): 71266361 (8) History of nephrectomy Current Visit: Yes Status: Chronic Code(s): Z90.5 - ACQUIRED ABSENCE OF KIDNEY SNOMED Code(s): 87091742615299 (9) Family history of heart disease Current Visit: Yes Status: Chronic Code(s): Z82.49 - FAMILY HX OF ISCHEM HEART DIS AND OTH DIS OF THE CIRC SYS SNOMED Code(s): 291052799 (10) History of prostate cancer Current Visit: Yes Status: Chronic Code(s): Z85.46 - PERSONAL HISTORY OF MALIGNANT NEOPLASM OF PROSTATE SNOMED Code(s): 737251797 (11) NSTEMI (non-ST elevated myocardial infarction) Current Visit: Yes Status: Acute Code(s): I21.4 - NON-ST ELEVATION (NSTEMI) MYOCARDIAL INFARCTION SNOMED Code(s): 851272681 Plan: 1. Continue aspirin, statin, Plavix, beta laurie. Will increase beta laurie therapy as tolerated. Continue as needed Apresoline IV for hypertension. 2. Continue amiodarone for A. fib prophylaxis. No need for anticoagulation unless in atrial fibrillation for greater than 24 hours. 3. Wean O2 as tolerated. BiPAP management per pulmonology. Encourage incentive spirometry use 10 times every hour while off BiPAP. 4. Increase activity, up to chair today. PT/OT/cardiac rehab following. 5. Encourage oral intake. 6. IV steroids discontinued. 7. Bronchodilators, antibiotics per pulmonology. 8. Insulin per primary care service. 9. Will monitor daily labs and x-rays. Cultures negative. 10. GI prophylaxis with Protonix. DVT prophylaxis with subcu heparin, SCDs. 11. Pain control with current medication regimen. 12. Bladder scan for postvoid residual every 6 hours, may straight cath for greater than 300 mL. Continue Flomax for BPH. 13. Placed on Lasix 20 mg twice daily by nephrology. 14. More recommendations to follow. Time with Patient: Greater than 30
[2018-08-30 08:12] LABS: Glucose,Whole Blood 146 mg/dL (75-99)
[2018-08-30] MEDS: ASCORBIC ACID 500 MG TAB PO SCH ×2 (08:21→17:18)
[2018-08-30] MEDS: ATORVASTATIN 40 MG TAB PO SCH (08:21)
[2018-08-30] MEDS: AMIODARONE 200 MG TAB PO SCH ×2 (08:21→21:50)
[2018-08-30] MEDS: ASPIRIN 325 MG TAB PO SCH (08:21)
[2018-08-30] MEDS: FUROSEMIDE 10 MG/ML 2 ML VIAL IV SCH ×2 (08:22→21:51)
[2018-08-30] MEDS: METOPROLOL TARTRATE 12.5 MG TAB PO SCH ×2 (08:22→21:51)
[2018-08-30] MEDS: HEPARIN SODIUM,PORCINE 5,000 UNIT/ML 1 ML VIAL SQ SCH ×2 (08:22→17:16)
[2018-08-30] MEDS: CLOPIDOGREL 75 MG TAB PO SCH (08:22)
[2018-08-30] MEDS: QUEtiapine 50 MG TAB PO SCH ×2 (08:22→22:04)
[2018-08-30] MEDS: FERROUS SULFATE ORAL ELIXIR 300 MG/5 ML CUP PO SCH ×2 (08:22→17:16)
--- NOTE | 2018-08-30 09:19 | P.PN ---
Subjective Progress Note Date: 08/30/18 Principal diagnosis: Non-ST segment elevation myocardial infarction, coronary artery disease, status post three-vessel bypass grafting Progress note dated 08/24/2018 This is a 73-year-old male who was admitted on August 13 with a diagnosis of non-ST segment elevation myocardial infarction. On catheterization he was found have three-vessel CAD. He underwent bypass grafting on August 17. It was a three-vessel bypass. He was extubated and reintubated on August 20. He had a bronchoscopy performed on August 21. The patient is currently on the volume assist control mode with a rate of 16, tidal volume 500, FiO2 50%, and PEEP of 8. Arterial blood gases show a PaO2 of 102 a PaCO2 40 and a pH 7.43. The patient is currently on propofol at 40 mics per kilogram per minute, lactated Ringer's at 20 mL an hour and vital high protein at 30 with a goal of 30 mL an hour. He is postop day #7. Microbiology is negative. We will give him a daily interruption of sedation. Because he is so agitated off the propofol, we will try some dexmedetomidine has a sedative. We are hoping to place the patient on some pressure support and CPAP today but it may not be possible given his agitation. Progress note dated 08/25/2018 73-year-old male who was admitted on August 13 with a diagnosis of non-ST segment elevation myocardial infarction. He was found have three-vessel coronary artery disease on catheterization and underwent bypass grafting on August 17. It was a three-vessel bypass. He apparently was extubated and subsequent reintubated on August 20. Because of lung collapse, he had a bronchoscopy performed on August 21. Currently, the patient remains on mechanical ventilation. He's been very agitated and delirious. We did switch him from propofol to dexmedetomidine yesterday. Currently, he is on the volume assist control mode rate is 16, tidal volume 500, FiO2 50% and PEEP of 8. Blood gases show a PaO2 of 80 a PaCO2 of 41 and a pH of 7.425. Currently, he is on Precedex at 0.7 mcg/kg/h, lactated Ringer's at 20 mL an hour and vital high protein at 55 with a goal of 55 mL an hour. Chest x-ray does appear to show some volume also in the right lower lobe. White count of 5.8 hemoglobin 6.8 hematocrit 22.0 and platelet count 313,000. Sodium and potassium were normal. Chloride 108 CO2 26 with a BUN and creatinine of 53 and 1.85. Anion gap is normal. Magnesium 2.4. Current microbiologic studies are all negative. He does appear to be much better controlled today. He is much more alert and awake. We will attempt a spontaneous breathing trial with PSV 5 CPAP of 5. We' ll also get a full set a weaning parameters including a rapid shallow breathing index and a cuff leak test. We may get a blood gas. Additional recommendations and suggestions are forthcoming. Progress note dated 08/30/2018 73-year-old male who is status post three-vessel bypass grafting. He's had a maria luisa postoperative course. He presented for a long period of time. He was eventually extubated. Given post extubation, the patient developed some upper airway stridor and difficulty. He was placed on Decadron which did seem to help. Currently, he is on O2 at 5 L by nasal cannula, and dextrose IV at 40 mL an hour. The patient is awake and alert. He looks as good as I have seen him. The patient will stay in the unit though. Microbiology is negative on this patient. Lab data and x-rays are reviewed. Chest x-ray shows cardiomegaly and small [place] effusion on the right. Lab data is reviewed and white count is 11.6, hemoglobin 8.8, hematocrit 27.6 and platelet count 347,000. Sodium potassium chloride CO2 all normal. Anion gap is normal. BUN and creatinine were 63 and 1.74 respectively. Chest ultrasound shows a moderate sized right pleural effusion. The patient refuses thoracentesis at this time. Objective - Vital Signs Vital signs: Vital Signs Temp 97.9 F 08/30/18 08:00 Pulse 66 08/30/18 09:00 Resp 19 08/30/18 09:00 BP 93/56 08/27/18 02:00 Pulse Ox 94 L 08/30/18 09:00 Intake & Output 08/29/18 08/30/18 08/30/18 18:59 06:59 18:59 Intake Total 991 526 129 Output Total 375 580 350 Balance 616 -54 -221 Weight 107.9 kg Intake: IV 866 526 129 Dextrose 5% in Water 1, 80 440 120 000 ml @ 40 mls/hr IV . Q24H [facility] Rx#:[id number] Dextrose 5% in Water 1, 750 000 ml @ 75 mls/hr IV . [id number] [facility] Rx#:[id number] Piperacillin-Tazobactam 3 50 .375 gm In Dextrose/Water 1 50ml.bag @ 12.5 mls/hr IVPB Q8HR [facility] Rx#: [id number] pressure bags 36 36 9 Oral 125 Output: Urine 375 580 350 Other: Voiding Method Incontinent Incontinent Incontinent # Voids 1 1 1 # Bowel Movements 1 ABP, PAP, CO, CI - Last Documented Arterial Blood Pressure 143/49 Pulmonary Artery Pressure 40/20 Cardiac Output 6.7 Cardiac Index 3.3 - Exam No acute distress, awake and alert, on nasal O2 at 5 L. The patient's appropriate, and oriented 3. HEENT examination is grossly unremarkable. Mucous membranes are moist. Neck supple. Full range of motion. No adenopathy thyromegaly or neck vein distention. Cardiovascular examination reveals regular rhythm rate. S1-S2 normal. No S3 or S4. No discernible murmur noted. Heart sounds are distant. Lungs reveal diminished breath sounds throughout. A few scattered rhonchi and wheezes are noted. No crackles. Breath sounds equal bilaterally. Breath sounds are dramatically improved. Abdomen soft bowel sounds are heard. No masses or tenderness. Extremities are intact. No cyanosis clubbing or edema. Skin is without rash or lesion. Neurologic examination is brief but nonfocal. - Labs CBC & Chem 7: 08/30/18 04:30 08/30/18 04:30 Labs: Abnormal Lab Results - Last 24 Hours (Table) 08/29/18 08/29/18 08/29/18 Range/Units 11:46 16:14 19:54 WBC (3.8-10.6) k/uL RBC (4.30-5.90) m/uL Hgb (13.0-17.5) gm/dL Hct (39.0-53.0) % RDW (11.5-15.5) % Neutrophils # (1.3-7.7) k/uL Lymphocytes # (1.0-4.8) k/uL BUN (9-20) mg/dL Creatinine (0.66-1.25) mg/dL Glucose (74-99) mg/dL POC Glucose (mg/dL) 208 H 237 H 204 H (75-99) mg/dL Magnesium (1.6-2.3) mg/dL Total Protein (6.3-8.2) g/dL Albumin (3.5-5.0) g/dL 08/29/18 08/30/18 08/30/18 Range/Units 23:33 04:10 04:30 WBC 11.6 H (3.8-10.6) k/uL RBC 2.97 L (4.30-5.90) m/uL Hgb 8.8 L (13.0-17.5) gm/dL Hct 27.6 L (39.0-53.0) % RDW 16.4 H (11.5-15.5) % Neutrophils # 10.7 H (1.3-7.7) k/uL Lymphocytes # 0.5 L (1.0-4.8) k/uL BUN (9-20) mg/dL Creatinine (0.66-1.25) mg/dL Glucose (74-99) mg/dL POC Glucose (mg/dL) 217 H 172 H (75-99) mg/dL Magnesium (1.6-2.3) mg/dL Total Protein (6.3-8.2) g/dL Albumin (3.5-5.0) g/dL 08/30/18 08/30/18 Range/Units 04:30 08:09 WBC (3.8-10.6) k/uL RBC (4.30-5.90) m/uL Hgb (13.0-17.5) gm/dL Hct (39.0-53.0) % RDW (11.5-15.5) % Neutrophils # (1.3-7.7) k/uL Lymphocytes # (1.0-4.8) k/uL BUN 63 H (9-20) mg/dL Creatinine 1.74 H (0.66-1.25) mg/dL Glucose 146 H (74-99) mg/dL POC Glucose (mg/dL) 146 H (75-99) mg/dL Magnesium 2.5 H (1.6-2.3) mg/dL Total Protein 5.8 L (6.3-8.2) g/dL Albumin 3.0 L (3.5-5.0) g/dL Microbiology - Last 24 Hours (Table) 08/25/18 09:49 Blood Culture - Preliminary Blood No Growth after 96 hours Assessment and Plan Assessment: Assessment Postop day #13, status post three-vessel bypass grafting Status post extubation and reintubation on August 20 Status post extubation stridor, resolved with Decadron Postoperative ventilator management Non-ST segment elevation myocardial infarction ICU psychosis and delirium Status post bronchoscopy on August 21 for right lower lobe collapse Diabetes mellitus COPD History of chronic tobacco dependence History of prostate cancer History of hyperlipidemia Benign essential hypertension Previous nephrectomy Plan: Plan dated 08/24/2018 The patient's sedatives will be switched from propofol to dexmedetomidine. We' ll attempt a weaning trial with PSV 8 CPAP of 5. Microbiology is negative thus far. White count 5.7, hemoglobin 7.1, hematocrit 22.6, and platelet count 186, 000. Sodium and potassium are normal. Chloride 109. CO2 26 with a normal anion gap. BUN is 43 creatinine 1.57 and magnesium 2.4. Bronchoscopy specimens are thus far negative. We'll hoping that the switch from propofol to dexmedetomidine helps to control the patient's agitation. We'll attempt a weaning trial with PSV 8 CPAP of 5. Prognosis is guarded. We'll continue to follow closely Critical care time 32 minutes Plan dated 08/25/2018 It appears that the patient's sedation is much better on dexmedetomidine then propofol. The patient will be placed on PSV 5/CPAP of 5 and the patient will be given a spontaneous breathing trial. We'll get a full set a weaning parameters and a cuff leak. He may benefit from a blood gas. We'll make a determination about extubation. 2 feeds are sent off at this time. Labs x- rays a medications are all reviewed. Currently, in addition to the Precedex of 0.7 mcg/kg/h, is on lactated Ringer's at 20 mL an hour. Tube feeds have been held. Prognosis is guarded. Additional recommendations and suggestions are forthcoming. Labs x-rays and medications are thoroughly reviewed. Critical care time 34 minutes Plan dated 08/30/2018 The patient appears to be doing reasonably well. The patient's on 5 L high flow. Remains on dextrose with water at 40 mL an hour. Mental status has improved. Chest x-ray shows a small subpulmonic effusion on the right. Microbiology is negative. Laboratory x-rays a medications are reviewed. We will continue to follow this patient closely. The patient will not leave the ICU. The Decadron can be discontinued. Medications are reviewed. Critical care time 31 minutes Time with Patient: Greater than 30
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
--- NOTE | 2018-08-30 12:58 | PN ---
PROGRESS NOTE Cristo is a 73-year-old gentleman with coronary artery disease, status post CABG with episodes of recurrent pleural effusion and respiratory failure. This morning he remains in sinus rhythm, stable hemodynamically on oral amiodarone, he has ischemic cardiomyopathy with severe LV dysfunction. EXAM: Heart rate is 51 beats per minute. Chest exam reveals diffuse bilateral rhonchi. Heart exam reveals first and second heart sounds. No gallop. Exam of extremities revealed trace edema. Peripheral pulses are felt. Lab show a hemoglobin of 8.8, platelet count is 347, potassium is 4.6, BUN is 63, creatinine is 1.7. ASSESSMENT: 1. Ischemic cardiomyopathy with recurrent pleural effusions. 2. Paroxysmal atrial fibrillation. 3. Coronary artery disease, status post coronary artery bypass grafting. PLAN: We will continue the IV Lasix, oral amiodarone and Lipitor. The patient had a chest x- ray today that shows cardiomegaly with right-sided subpulmonic pleural effusion. MMODL / IJN: [id number] /
[2018-08-30 13:01] LABS: Glucose,Whole Blood 208 mg/dL (75-99)
--- NOTE | 2018-08-30 14:26 | P.PN ---
Subjective Progress Note Date: 08/30/18 This is a 73-year-old male, patient of [facility]. He has a known past medical history of hypertension, diabetes mellitus, COPD, right nephrectomy 1970 and former smoker. Patient presents to the emergency room with complaints of chest pain with pressure and heaviness and diaphoresis. Symptoms had started yesterday. Patient was diagnosed with a non-ST elevated IN. Initial troponin 0.128 then 11.6 and 11.8. Patient was started on IV heparin cardiology was consulted. And patient underwent heart catheterization today. The heart catheterization shows total occlusion of the right coronary artery. Left main is 70-75% stenosed. The left anterior descending coronary artery has a mid lesion of 70% with thrombus. Obtuse marginal had 80-85% stenosis. Cardiology is recommending open-heart surgery. That her surgery has been consulted. They have already evaluated patient and surgery we'll possibly be on Friday. Pulmonary service has also been consulted. Patient is receiving IV fluids. He was slightly dehydrated on admission creatinine was 1.44. Unclear baseline creatinine. Creatinine in March 2018 was 1.3. Patient currently is chest pain-free. He reports that symptoms started after eating spicy soup and when he came back home he belched a large amount of gas and is relieved the pressure. He has been chest pain-free. Cardiology has placed him on IV heparin and Aggrastat. On 08/15/2018 patient was seen and examined he is alert and oriented 3 in no apparent distress he is sitting at the edge of the bed and he denies any chest pain there is no shortness of breath at rest he has occasional cough no palpitation no nausea or vomiting no abdominal pain no diarrhea no constipation no burning with urination no frequency or urgency and no hematuria. On 08/16/2018 patient was seen and examined on the telemetry floor he is alert and oriented 3 in no distress he denies any new episodes of chest pain he denies any other symptoms there is no fever or chills no headache or dizziness no shortness of breath no cough no nausea or vomiting no abdominal pain no diarrhea no burning was urination no frequency or urgency and no hematuria On 08/17/2018 Patient had coronary artery bypass graft [address] Hannah today. Patient currently intubated and on sedation. Patient remains in the intensive care unit. Patient currently on levophed for pressure support. On 08/18/2018 patient is currently postop day 1 and coronary artery bypass graft surgery. Patient is currently up in chair. Patient was extubated throughout night. Precedex drip has been DC'd per cardiovascular team. Patient remains sleepy but alert and arousable. At this time patient denies shortness of breath. Denies nausea vomiting or diarrhea. Denies any urinary burning. On 08/19/2018 patient is currently postop day 2 from coronary artery bypass graft. Per nursing staff patient is confused. Patient is also requiring BiPAP to maintain adequate oxygenation. Discussed case with Luna from the cardiovascular surgical team. Patient remains on Precedex drip. safety sitting at bedside. On 08/20/2018 patient is currently postop day 2 from coronary artery bypass graft. Patient remains on BiPAP for adequate oxygen. Precedex drip has been DC 'd. Patient does seem more alert. Patient followed closely by cardiovascular surgical team and critical care On 08/21/2018 patient got reintubated last night due to agitation and hypoxia. Patient is currently on propofol for sedation. Patient also started on Levophed for pressure support. Critical care team following closely. On 08/22/2018 patient got reintubated due to agitation and hypoxia. Patient is currently on propofol for sedation. Patient also started on Levophed for pressure support. Critical care team following closely. On 08/23/2018 patient is intubated sedated maintained on mechanical ventilation , he had a sedation holiday for about 1 hour at that time he was following commands. At this time he is back on sedation urine output is adequate. Hemoglobin is down to 7.2 On 08/24/2018 patient remains intubated on mechanical ventilation in the intensive care unit. Per nursing staff patient becomes agitated during sedation holidays. Hemoglobin decreasing to 7.1. Sedation holiday will be attempted again today. On 08/25/2018 patient recently extubated this a.m. Patient currently on BiPAP. Patient remains on Precedex drip. Patient is responsive to name. Patient having elevated temps at 101.3. Urine and blood cultures have been ordered per surgical vascular team. Bronchoscopy washing cultures showing no organisms at this time. On 08/26/2018 patient remains extubated on BiPAP. Patient is responsive to name in follow some commands. Long acting insulin increased to 20 units daily. Urine and blood cultures pending. Patient still having low-grade temps 100.4. On 08/27/2018 patient currently on BiPAP. Patient did have episode of A. fib with RVR throughout night. Patient currently on amiodarone drip per cardiovascular surgery. Shad montelongo will be assessed today. At this time patient is awake and alert. On 08/28/2018 she currently remains on BiPAP. Per nursing staff patient is only able to tolerate being off BiPAP temporarily due to increased respiratory rate. Patient is eating. Patient is awake and alert. Patient remains in the intensive care unit On 08/29/2018 patient was seen and examined in ICU he is alert and oriented in no apparent distress he is maintained on oxygen via nasal cannula and is tolerating well he denies any chest pain at this time there is no fever or chills there is occasional cough no shortness of breath at rest no nausea or vomiting no abdominal pain he had 2 episodes of loose stools there is no urinary symptoms. On 08/30/2018 patient is alert and oriented in no distress he was seen and examined in the intensive care unit, he denies any chest pain or shortness of breath is lying comment to bleeding in bed there is no fever or chills no headache or dizziness no nausea or vomiting no abdominal pain no diarrhea and no urinary symptoms. Nurse is reporting that patient has urinary retention he is able to urinate but he is requiring straight cath occasionally. Objective - Vital Signs Vital signs: Vital Signs Temp 98.4 F 08/30/18 12:00 Pulse 64 08/30/18 13:00 Resp 23 08/30/18 13:00 BP 93/56 08/27/18 02:00 Pulse Ox 95 08/30/18 13:00 Intake & Output 08/29/18 08/30/18 08/30/18 18:59 06:59 18:59 Intake Total 991 526 261 Output Total 291 571 0400 Balance 468 -84 -364 Weight 107.9 kg Intake: IV 866 526 261 Dextrose 5% in Water 1, 80 440 240 000 ml @ 40 mls/hr IV . Q24H [facility] Rx#:[id number] Dextrose 5% in Water 1, 750 000 ml @ 75 mls/hr IV . [id number] [facility] Rx#:[id number] Piperacillin-Tazobactam 3 50 .375 gm In Dextrose/Water 1 50ml.bag @ 12.5 mls/hr IVPB Q8HR [facility] Rx#: [id number] pressure bags 36 36 21 Oral 125 Output: Urine 647 464 6966 Other: Voiding Method Incontinent Incontinent Incontinent # Voids 1 1 1 # Bowel Movements 1 ABP, PAP, CO, CI - Last Documented Arterial Blood Pressure 160/57 Pulmonary Artery Pressure 40/20 Cardiac Output 6.7 Cardiac Index 3.3 - Exam Patient is alert and oriented in no apparent distress maintained on oxygen via nasal cannula and is tolerating well at this time Head normocephalic and atraumatic Neck supple no JVD no goiter Lungs patient currently intubated Heart regular rate and rhythm S1-S2, no rub or gallop Abdomen is soft nontender nondistended positive bowel sounds no hepatosplenomegaly Extremities no edema no cyanosis or clubbing - Labs CBC & Chem 7: 08/30/18 04:30 08/30/18 04:30 Labs: Abnormal Lab Results - Last 24 Hours (Table) 08/29/18 08/29/18 08/29/18 Range/Units 16:14 19:54 23:33 WBC (3.8-10.6) k/uL RBC (4.30-5.90) m/uL Hgb (13.0-17.5) gm/dL Hct (39.0-53.0) % RDW (11.5-15.5) % Neutrophils # (1.3-7.7) k/uL Lymphocytes # (1.0-4.8) k/uL BUN (9-20) mg/dL Creatinine (0.66-1.25) mg/dL Glucose (74-99) mg/dL POC Glucose (mg/dL) 237 H 204 H 217 H (75-99) mg/dL Magnesium (1.6-2.3) mg/dL Total Protein (6.3-8.2) g/dL Albumin (3.5-5.0) g/dL 08/30/18 08/30/18 08/30/18 Range/Units 04:10 04:30 04:30 WBC 11.6 H (3.8-10.6) k/uL RBC 2.97 L (4.30-5.90) m/uL Hgb 8.8 L (13.0-17.5) gm/dL Hct 27.6 L (39.0-53.0) % RDW 16.4 H (11.5-15.5) % Neutrophils # 10.7 H (1.3-7.7) k/uL Lymphocytes # 0.5 L (1.0-4.8) k/uL BUN 63 H (9-20) mg/dL Creatinine 1.74 H (0.66-1.25) mg/dL Glucose 146 H (74-99) mg/dL POC Glucose (mg/dL) 172 H (75-99) mg/dL Magnesium 2.5 H (1.6-2.3) mg/dL Total Protein 5.8 L (6.3-8.2) g/dL Albumin 3.0 L (3.5-5.0) g/dL 08/30/18 08/30/18 Range/Units 08:09 12:59 WBC (3.8-10.6) k/uL RBC (4.30-5.90) m/uL Hgb (13.0-17.5) gm/dL Hct (39.0-53.0) % RDW (11.5-15.5) % Neutrophils # (1.3-7.7) k/uL Lymphocytes # (1.0-4.8) k/uL BUN (9-20) mg/dL Creatinine (0.66-1.25) mg/dL Glucose (74-99) mg/dL POC Glucose (mg/dL) 146 H 208 H (75-99) mg/dL Magnesium (1.6-2.3) mg/dL Total Protein (6.3-8.2) g/dL Albumin (3.5-5.0) g/dL Microbiology - Last 24 Hours (Table) 08/25/18 09:49 Blood Culture - Preliminary Blood No Growth after 120 hours Assessment and Plan Plan: 1. Status post coronary artery bypass graft [address] Hannah postop day 10. The CHAHAL to LAD, SVG to PDA and Circ. Patient currently intubated and on sedation. Cardiovascular team and critical care team following closely. Patient currently up in chair. Patient has been extubated throughout night. hemoglobin 7.9. Discussed case with Luna per cardiovascular surgical team 2-D echo has been ordered due to diminished heart sounds. Hemoglobin 7.3. On 08/20 Patieht required reintubation due to extreme agitation and hypoxia. Critical care team following closely. PICC line placement ordered per cardiovascular surgery 2. Acute respiratory failure. Patient required reintubation last night 08/20. Chest x-ray completed showing right pleural effusion and bilateral lower lobe pulmonary infiltrates. There is probably mild heart failure. Endotracheal tube is in good position. Heart and lungs appear unchanged. Chest ultrasound completed showing small to tiny bilateral pleural effusions. Per pulmonary team No thoracentesis at this time. Status post bronchoscopy on 08/21/2018. Suspect right lower lobe collapse. Critical care and pulmonary services following closely. bronchial cultures pending. 08/25 patient extubated to BiPAP. Chest x-ray completed 92 showing cardiomegaly and bilateral pleural effusions 3. Acute Non-ST elevated myocardial infarction: Heart catheterization showing multivessel coronary artery disease with thrombus in the LAD. Patient has been seen by vascular surgery and planning for open heart surgery on Friday. Continue IV heparin and Aggrastat per cardiology. Continue with IV fluids. Pulmonary service also consulted for preop clearance. 4. Acute kidney injury: Unclear patient has chronic kidney disease. Creatinine in March 2018 was 1.3. Continue with IV fluid hydration. Creatinine 1.42. Continue to monitor closely. Creatinine continued to increase to 1.60. Discussed case with Luna kendra from cardiovascular surgery will continue to monitor closely at this point. Creatinine improving to 1.40 and bun 41. Nephrology following. Continue Lasix 40 mg IV daily per nephrology. Creatinine 1.80 and Bun 60. 5. Essential hypertension 6. Diabetes mellitus insulin-dependent. Hemoglobin A1c 7.9. Patient on sliding scale insulin. Lantus 10 units has been added. 08/27 Lantus has been increased to 25 units. Patient did pass followed swallow eval and now tolerating diet 7. History of COPD: No evidence of exacerbation. continue albuterol nebulizer as needed 8. BPH continue Flomax 9. Atelectasis noted on chest x-ray order incentive spirometer 10. Obesity BMI 39.4 kg 11. Possible acute ICU psychosis and delirium. Patient remains on Precedex. Critical care team following closely. On 08/20 patient required reintubation. patient extubated. 12. Expected acute blood loss anemia secondary to surgery. Hemoglobin 6.8. Cardiovascular surgery following closely. We'll continue to monitor closely. HemoGlobin 7.9 13. Elevated temperature. Patient febrile with 11.3. Blood and urine cultures have been ordered per cardiovascular team. WBC improving to 9.9 14. Postoperative atrial fibrillation, and expected outcome. Patient currently on amiodarone 15. Elevated liver enzymes. AST 85 and ALT 84. Discussed case with cardiothoracic REGISTERED RADIOGRAPHER. Continue to monitor closely 16. Urinary retention, continue straight cath as needed, increase Flomax to 0.4 mg by mouth twice a day DVT prophylaxis heparin and GI prophylaxis Protonix
[2018-08-30 16:46] LABS: Glucose,Whole Blood 161 mg/dL (75-99)
[2018-08-30] MEDS: ASPIRIN 300 MG SUPP RECTAL SCH (20:18)
[2018-08-30] MEDS: PIPERACILLIN-TAZOBACTAM 3.375 GM in DEXTROSE/WATER 1 50ML.BAG IVPB SCH (20:20)
[2018-08-30] MEDS: PANTOPRAZOLE 40 MG TABLET PO SCH (20:21)
[2018-08-30 20:41] LABS: Glucose,Whole Blood 213 mg/dL (75-99)
[2018-08-30] MEDS: SENNOSIDES-DOCUSATE SODIUM 1 EACH TAB PO SCH (21:36)
[2018-08-30] MEDS: TAMSULOSIN 0.4 MG CAP.ER.24H PO SCH (21:51)
[2018-08-30] MEDS: FERROUS SULFATE 325 MG TAB PO SCH (22:05)
[2018-08-30] MEDS: INSULIN DETEMIR 100 UNIT/ML 10 ML VIAL SQ SCH (23:21)
[2018-08-30 23:56] LABS: Glucose,Whole Blood 185 mg/dL (75-99)
[2018-08-31] MEDS: HEPARIN SODIUM,PORCINE 5,000 UNIT/ML 1 ML VIAL SQ SCH ×3 (01:15→16:55)
[2018-08-31] MEDS: INSULIN ASPART 100 UNIT/ML 1 ML 10 ML VIAL SQ SCH ×7 (01:15→23:58)
[2018-08-31 04:47] LABS: Anisocytosis Slight; Basophils % (A) 0 %; Eosinophils % (A) 0 %; HCT 27.7 % (39.0-53.0); HGB 8.5 gm/dL (13.0-17.5); Hypochromasia Moderate; Lymphocytes # (A) 0.4 k/uL (1.0-4.8); Lymphocytes % (A) 5 %; MCH 28.8 pg (25.0-35.0); MCHC 30.8 g/dL (31.0-37.0); MCV 93.6 fL (80.0-100.0); Macrocytosis Slight; Mean Platelet Volume 7.9; Monocytes # (A) 0.4 k/uL (0-1.0); Monocytes % (A) 4 %; Neutrophils # (A) 8.5 k/uL (1.3-7.7); Neutrophils % (A) 90 %; Platelet Count 307 k/uL (150-450); RBC 2.96 m/uL (4.30-5.90); RDW 17.7 % (11.5-15.5); WBC 9.4 k/uL (3.8-10.6)
[2018-08-31 04:53] LABS: Albumin 2.8 g/dL (3.5-5.0); Calcium 8.5 mg/dL (8.4-10.2); Potassium 4.4 mmol/L (3.5-5.1); Total Bilirubin 0.6 mg/dL (0.2-1.3); Total Protein 5.6 g/dL (6.3-8.2)
[2018-08-31 08:21] LABS: Glucose,Whole Blood 144 mg/dL (75-99)
--- NOTE | 2018-08-31 08:28 | XR ---
EXAMINATION TYPE: XR chest 1V portable DATE OF EXAM: 08/31/2018 HISTORY: Shortness of breath. COMPARISON: 08/30/2018 TECHNIQUE: Single view of the chest is submitted. FINDINGS: Demonstrated are scattered senescent parenchymal change. There is right lower lobe atelectasis and/or infiltrate and to a lesser extent left lower lobe atelec tasis. Small effusions are present. The heart is stable. Hilar and mediastinal structures are within normal limits. Degenerative changes are seen of the dorsal spine. IMPRESSION: 1. There is right lower lobe atelectasis and/or infiltrate and to a lesser extent left lower lobe at electasis. Small effusions are present.
[2018-08-31] MEDS: IPRATROPIUM-ALBUTEROL 3 ML NEB INHALATION SCH ×4 (08:29→20:46)
[2018-08-31] MEDS: ASCORBIC ACID 500 MG TAB PO SCH ×2 (08:32→16:55)
[2018-08-31] MEDS: ATORVASTATIN 40 MG TAB PO SCH (08:32)
[2018-08-31] MEDS: ASPIRIN 325 MG TAB PO SCH (08:32)
[2018-08-31] MEDS: FERROUS SULFATE ORAL ELIXIR 300 MG/5 ML CUP PO SCH ×2 (08:32→16:55)
[2018-08-31] MEDS: AMIODARONE 200 MG TAB PO SCH ×2 (08:32→20:10)
[2018-08-31] MEDS: CLOPIDOGREL 75 MG TAB PO SCH (08:33)
[2018-08-31] MEDS: TAMSULOSIN 0.4 MG CAP.ER.24H PO SCH ×2 (08:33→20:10)
[2018-08-31] MEDS: METOPROLOL TARTRATE 12.5 MG TAB PO SCH ×2 (08:34→20:10)
[2018-08-31] MEDS: FUROSEMIDE 10 MG/ML 2 ML VIAL IV SCH ×2 (08:34→20:13)
[2018-08-31] MEDS: QUEtiapine 50 MG TAB PO SCH ×2 (08:37→20:10)
[2018-08-31] MEDS: PANTOPRAZOLE SODIUM 40 MG GRANULE PKT PO SCH (08:38)
--- NOTE | 2018-08-31 08:45 | P.PN ---
Subjective Progress Note Date: 08/31/18 Principal diagnosis: Non-ST elevation myocardial infarction, impaired left ventricular systolic function with EF 20-25%, acute on chronic systolic heart failure. History of hypertension, hypertriglyceridemia insulin-dependent diabetes mellitus with preoperative hemoglobin A1c 7.1%, COPD with preoperative FEV1 87% of predicted, previous tobacco dependence, prostate cancer with radiation, right nephrectomy, obesity, BPH. POD #14 urgent coronary artery bypass grafting 3 vessels, left internal mammary artery to left anterior descending artery, reverse saphenous vein graft to obtuse marginal artery, reverse saphenous vein graft to posterior descending artery, endoscopic vein harvest of the left greater saphenous vein, epi-aortic ultrasound, intraoperative transesophageal echocardiogram, closure of sternum using titanium plates and [place] cable system. Postoperative acute blood loss anemia, an expected outcome of surgery secondary to cardiopulmonary bypass and hemodilution. Postoperative delirium, an unexpected outcome. Postoperative acute respiratory distress requiring reintubation, prolonged mechanical ventilation, an unexpected outcome. Postoperative right lower lobe collapse, secondary to mucus plugging, an unexpected outcome POD #10 bronchoscopy, bronchial alveolar lavage of the right middle lobe, right lower lobe, and washings of both lungs performed by Dr. Almodovar. Postoperative atrial fibrillation, an expected outcome. Patient's currently sitting up in bed in no acute distress. Does periodically get short of breath, especially after coughing. Currently on 10 L high flow nasal cannula with oxygen saturation 98%, was on BiPAP for a few hours last night. Does complain of pain at his incisions which is controlled with current medication regimen. He is still coughing pretty forcefully. Decadron was discontinued yesterday. The patient is more alert and aware. Objective - Vital Signs Vital signs: Vital Signs Temp 97.8 F 08/31/18 00:00 Pulse 62 08/31/18 06:00 Resp 23 08/31/18 06:00 BP 93/56 08/27/18 02:00 Pulse Ox 96 08/31/18 06:00 Intake & Output 08/30/18 08/31/18 08/31/18 18:59 06:59 18:59 Intake Total 279 273 Output Total 1465 925 Balance -3585 -951 Weight 105.6 kg Intake: IV 279 33 Dextrose 5% in Water 1, 240 000 ml @ 40 mls/hr IV . Q24H [facility] Rx#:[id number] pressure bags 39 33 Oral 240 Output: Urine 1465 925 Other: Voiding Method Incontinent Incontinent # Voids 1 2 # Bowel Movements 0 ABP, PAP, CO, CI - Last Documented Arterial Blood Pressure 154/56 Pulmonary Artery Pressure 40/20 Cardiac Output 6.7 Cardiac Index 3.3 - Constitutional General appearance: Present: cooperative, no acute distress, obese - Respiratory Details: Lungs sounds diminished bilaterally, right greater than left, expiratory wheezes present. Respirations even, nonlabored. No stridor present. Currently on 10 L high flow nasal cannula with oxygen saturation 98%. Able to achieve 500 mL on his incentive spirometry. Effective cough with productive yellow brown sputum. - Cardiovascular Details: S1, S2 present. Regular rate and rhythm, sinus rhythm on telemetry. A/V epicardial pacemaker wires present, connected to generator, AAI mode with backup rate 45 bpm. Palpable peripheral pulses bilaterally. Trace generalized edema present. No calf pain or tenderness noted. Right radial arterial line present. Heart hugger, antiembolism stockings, SCDs present. - Gastrointestinal Gastrointestinal Comment(s): Abdomen soft, nontender, nondistended. Active bowel sounds present 4 quadrants. Positive bowel movement 08/30. Tolerating diet. - Genitourinary Genitourinary Comment(s): Condom catheter remains in place. Patient continues to void clear, yellow urine , output 50-200 mL/h overnight, 825 mL in the last 8 hours. - Integumentary Integumentary Comment(s): Skin is warm and dry with evidence of good perfusion. Anterior chest incision well approximated and covered with dry intact dressing. Left lower extremity EVH site well approximated, ecchymosis present, expected. - Neurologic Neurologic: Present: CNII-XII intact - Musculoskeletal Musculoskeletal: Present: generalized weakness, strength equal bilaterally - Psychiatric Psychiatric: Present: A&O x's 3, appropriate affect, intact judgment & insight - Allied health notes Allied health notes reviewed: nursing - Labs CBC & Chem 7: 08/31/18 04:20 08/31/18 04:20 Labs: Abnormal Lab Results - Last 24 Hours (Table) 08/30/18 08/30/18 08/30/18 Range/Units 12:59 16:44 20:40 RBC (4.30-5.90) m/uL Hgb (13.0-17.5) gm/dL Hct (39.0-53.0) % MCHC (31.0-37.0) g/dL RDW (11.5-15.5) % Neutrophils # (1.3-7.7) k/uL Lymphocytes # (1.0-4.8) k/uL Carbon Dioxide (22-30) mmol/L BUN (9-20) mg/dL Creatinine (0.66-1.25) mg/dL Glucose (74-99) mg/dL POC Glucose (mg/dL) 208 H 161 H 213 H (75-99) mg/dL Total Protein (6.3-8.2) g/dL Albumin (3.5-5.0) g/dL 08/30/18 08/31/18 08/31/18 Range/Units 23:55 04:20 04:20 RBC 2.96 L (4.30-5.90) m/uL Hgb 8.5 L (13.0-17.5) gm/dL Hct 27.7 L (39.0-53.0) % MCHC 30.8 L (31.0-37.0) g/dL RDW 17.7 H (11.5-15.5) % Neutrophils # 8.5 H (1.3-7.7) k/uL Lymphocytes # 0.4 L (1.0-4.8) k/uL Carbon Dioxide 31 H (22-30) mmol/L BUN 54 H (9-20) mg/dL Creatinine 1.59 H (0.66-1.25) mg/dL Glucose 116 H (74-99) mg/dL POC Glucose (mg/dL) 185 H (75-99) mg/dL Total Protein 5.6 L (6.3-8.2) g/dL Albumin 2.8 L (3.5-5.0) g/dL 08/31/18 Range/Units 08:19 RBC (4.30-5.90) m/uL Hgb (13.0-17.5) gm/dL Hct (39.0-53.0) % MCHC (31.0-37.0) g/dL RDW (11.5-15.5) % Neutrophils # (1.3-7.7) k/uL Lymphocytes # (1.0-4.8) k/uL Carbon Dioxide (22-30) mmol/L BUN (9-20) mg/dL Creatinine (0.66-1.25) mg/dL Glucose (74-99) mg/dL POC Glucose (mg/dL) 144 H (75-99) mg/dL Total Protein (6.3-8.2) g/dL Albumin (3.5-5.0) g/dL Microbiology - Last 24 Hours (Table) 08/25/18 09:49 Blood Culture - Preliminary Blood No Growth after 120 hours - Imaging and Cardiology Chest x-ray: report reviewed, image reviewed Assessment and Plan (1) CAD (coronary artery disease) Current Visit: Yes Status: Chronic Code(s): I25.10 - ATHSCL HEART DISEASE OF [place] CORONARY ARTERY W/O ANG PCTRS SNOMED Code(s): 73635078 (2) Left main coronary artery disease Current Visit: Yes Status: Chronic Code(s): I25.10 - ATHSCL HEART DISEASE OF [place] CORONARY ARTERY W/O ANG PCTRS SNOMED Code(s): 067898245 (3) Hypertension Current Visit: Yes Status: Chronic Code(s): I10 - ESSENTIAL (PRIMARY) HYPERTENSION SNOMED Code(s): 83549633 (4) Hyperlipidemia Current Visit: Yes Status: Chronic Code(s): E78.5 - HYPERLIPIDEMIA, UNSPECIFIED SNOMED Code(s): 81539295 (5) Insulin dependent diabetes mellitus Current Visit: Yes Status: Chronic Code(s): E11.9 - TYPE 2 DIABETES MELLITUS WITHOUT COMPLICATIONS; Z79.4 - PENITENTIARY (CURRENT) USE OF INSULIN SNOMED Code(s): 77566597 (6) Tobacco dependence in remission Current Visit: No Status: Resolved Code(s): F17.201 - NICOTINE DEPENDENCE, UNSPECIFIED, IN REMISSION SNOMED Code(s): 990911598 (7) COPD (chronic obstructive pulmonary disease) Current Visit: Yes Status: Chronic Code(s): J44.9 - CHRONIC OBSTRUCTIVE PULMONARY DISEASE, UNSPECIFIED SNOMED Code(s): 70899091 (8) History of nephrectomy Current Visit: Yes Status: Chronic Code(s): Z90.5 - ACQUIRED ABSENCE OF KIDNEY SNOMED Code(s): 55742260816021 (9) Family history of heart disease Current Visit: Yes Status: Chronic Code(s): Z82.49 - FAMILY HX OF ISCHEM HEART DIS AND OTH DIS OF THE CIRC SYS SNOMED Code(s): 599543480 (10) History of prostate cancer Current Visit: Yes Status: Chronic Code(s): Z85.46 - PERSONAL HISTORY OF MALIGNANT NEOPLASM OF PROSTATE SNOMED Code(s): 599073820 (11) NSTEMI (non-ST elevated myocardial infarction) Current Visit: Yes Status: Acute Code(s): I21.4 - NON-ST ELEVATION (NSTEMI) MYOCARDIAL INFARCTION SNOMED Code(s): 508966039 Plan: 1. Continue aspirin, statin, Plavix, beta laurie. Will increase beta laurie therapy as tolerated. Continue as needed Apresoline IV for hypertension. 2. Continue amiodarone for A. fib prophylaxis. No need for anticoagulation unless in atrial fibrillation for greater than 24 hours. 3. Wean O2 as tolerated. BiPAP management per pulmonology. Encourage incentive spirometry use 10 times every hour while off BiPAP. 4. Increase activity, up to chair as able. PT/OT/cardiac rehab following. 5. Encourage oral intake. 6. Bronchodilators, antibiotics per pulmonology. 7. Insulin per primary care service. 8. Will monitor daily labs and x-rays. Cultures negative. 9. GI prophylaxis with Protonix. DVT prophylaxis with subcu heparin, SCDs. 10. Pain control with current medication regimen. 11. Bladder scan for postvoid residual every 6 hours, may straight cath for greater than 300 mL. Continue Flomax for BPH. 12. Placed on Lasix 20 mg twice daily by nephrology. D5W management per nephrology. 13. May discontinue arterial line. Will place transfer orders for 6E. [facility]. 14. More recommendations to follow. Time with Patient: Greater than 30
[2018-08-31 10:19] LABS: Iron Saturation 24.77 (15.00-50.00)
--- NOTE | 2018-08-31 11:06 | P.PN ---
Subjective Progress Note Date: 08/31/18 This is a 73-year-old male, patient of [facility]. He has a known past medical history of hypertension, diabetes mellitus, COPD, right nephrectomy 1970 and former smoker. Patient presents to the emergency room with complaints of chest pain with pressure and heaviness and diaphoresis. Symptoms had started yesterday. Patient was diagnosed with a non-ST elevated MO. Initial troponin 0.128 then 11.6 and 11.8. Patient was started on IV heparin cardiology was consulted. And patient underwent heart catheterization today. The heart catheterization shows total occlusion of the right coronary artery. Left main is 70-75% stenosed. The left anterior descending coronary artery has a mid lesion of 70% with thrombus. Obtuse marginal had 80-85% stenosis. Cardiology is recommending open-heart surgery. That her surgery has been consulted. They have already evaluated patient and surgery we'll possibly be on Friday. Pulmonary service has also been consulted. Patient is receiving IV fluids. He was slightly dehydrated on admission creatinine was 1.44. Unclear baseline creatinine. Creatinine in March 2018 was 1.3. Patient currently is chest pain-free. He reports that symptoms started after eating spicy soup and when he came back home he belched a large amount of gas and is relieved the pressure. He has been chest pain-free. Cardiology has placed him on IV heparin and Aggrastat. On 08/15/2018 patient was seen and examined he is alert and oriented 3 in no apparent distress he is sitting at the edge of the bed and he denies any chest pain there is no shortness of breath at rest he has occasional cough no palpitation no nausea or vomiting no abdominal pain no diarrhea no constipation no burning with urination no frequency or urgency and no hematuria. On 08/16/2018 patient was seen and examined on the telemetry floor he is alert and oriented 3 in no distress he denies any new episodes of chest pain he denies any other symptoms there is no fever or chills no headache or dizziness no shortness of breath no cough no nausea or vomiting no abdominal pain no diarrhea no burning was urination no frequency or urgency and no hematuria On 08/17/2018 Patient had coronary artery bypass graft [address] Hannah today. Patient currently intubated and on sedation. Patient remains in the intensive care unit. Patient currently on levophed for pressure support. On 08/18/2018 patient is currently postop day 1 and coronary artery bypass graft surgery. Patient is currently up in chair. Patient was extubated throughout night. Precedex drip has been DC'd per cardiovascular team. Patient remains sleepy but alert and arousable. At this time patient denies shortness of breath. Denies nausea vomiting or diarrhea. Denies any urinary burning. On 08/19/2018 patient is currently postop day 2 from coronary artery bypass graft. Per nursing staff patient is confused. Patient is also requiring BiPAP to maintain adequate oxygenation. Discussed case with Luna from the cardiovascular surgical team. Patient remains on Precedex drip. safety sitting at bedside. On 08/20/2018 patient is currently postop day 2 from coronary artery bypass graft. Patient remains on BiPAP for adequate oxygen. Precedex drip has been DC 'd. Patient does seem more alert. Patient followed closely by cardiovascular surgical team and critical care On 08/21/2018 patient got reintubated last night due to agitation and hypoxia. Patient is currently on propofol for sedation. Patient also started on Levophed for pressure support. Critical care team following closely. On 08/22/2018 patient got reintubated due to agitation and hypoxia. Patient is currently on propofol for sedation. Patient also started on Levophed for pressure support. Critical care team following closely. On 08/23/2018 patient is intubated sedated maintained on mechanical ventilation , he had a sedation holiday for about 1 hour at that time he was following commands. At this time he is back on sedation urine output is adequate. Hemoglobin is down to 7.2 On 08/24/2018 patient remains intubated on mechanical ventilation in the intensive care unit. Per nursing staff patient becomes agitated during sedation holidays. Hemoglobin decreasing to 7.1. Sedation holiday will be attempted again today. On 08/25/2018 patient recently extubated this a.m. Patient currently on BiPAP. Patient remains on Precedex drip. Patient is responsive to name. Patient having elevated temps at 101.3. Urine and blood cultures have been ordered per surgical vascular team. Bronchoscopy washing cultures showing no organisms at this time. On 08/26/2018 patient remains extubated on BiPAP. Patient is responsive to name in follow some commands. Long acting insulin increased to 20 units daily. Urine and blood cultures pending. Patient still having low-grade temps 100.4. On 08/27/2018 patient currently on BiPAP. Patient did have episode of A. fib with RVR throughout night. Patient currently on amiodarone drip per cardiovascular surgery. Shad montelongo will be assessed today. At this time patient is awake and alert. On 08/28/2018 she currently remains on BiPAP. Per nursing staff patient is only able to tolerate being off BiPAP temporarily due to increased respiratory rate. Patient is eating. Patient is awake and alert. Patient remains in the intensive care unit On 08/29/2018 patient was seen and examined in ICU he is alert and oriented in no apparent distress he is maintained on oxygen via nasal cannula and is tolerating well he denies any chest pain at this time there is no fever or chills there is occasional cough no shortness of breath at rest no nausea or vomiting no abdominal pain he had 2 episodes of loose stools there is no urinary symptoms. On 08/30/2018 patient is alert and oriented in no distress he was seen and examined in the intensive care unit, he denies any chest pain or shortness of breath is lying comment to bleeding in bed there is no fever or chills no headache or dizziness no nausea or vomiting no abdominal pain no diarrhea and no urinary symptoms. Nurse is reporting that patient has urinary retention he is able to urinate but he is requiring straight cath occasionally. On 08/31/2018 patient remains in the intensive care unit. Patient looks much improved. Patient is awake and alert. Patient is currently on high flow 10 L. At this time patient denies chest pain. Patient denies any nausea vomiting or diarrhea. Objective - Vital Signs Vital signs: Vital Signs Temp 98.3 F 08/31/18 08:00 Pulse 70 08/31/18 08:51 Resp 32 H 08/31/18 08:30 BP 93/56 08/27/18 02:00 Pulse Ox 96 08/31/18 08:31 Intake & Output 08/30/18 08/31/18 08/31/18 18:59 06:59 18:59 Intake Total 279 273 9 Output Total 1465 925 Balance -4434 -417 9 Weight 105.6 kg Intake: IV 279 33 9 Dextrose 5% in Water 1, 240 000 ml @ 40 mls/hr IV . Q24H ONE Rx#:[id number] pressure bags 39 33 9 Oral 240 Output: Urine 1465 925 Other: Voiding Method Incontinent Incontinent # Voids 1 2 1 # Bowel Movements 0 ABP, PAP, CO, CI - Last Documented Arterial Blood Pressure 161/60 Pulmonary Artery Pressure 40/20 Cardiac Output 6.7 Cardiac Index 3.3 - Exam Head normocephalic Neck supple Lungs Breath sounds diminished bilaterally wheezing noted bilaterally Heart regular rate and rhythm S1-S2, no rub or gallop Abdomen is soft nontender nondistended positive bowel sounds no hepatosplenomegaly Extremities no edema Neuro patient is following some commands and responds to name - Labs CBC & Chem 7: 08/31/18 04:20 08/31/18 04:20 Labs: Abnormal Lab Results - Last 24 Hours (Table) 08/30/18 08/30/18 08/30/18 Range/Units 04:30 12:59 16:44 RBC (4.30-5.90) m/uL Hgb (13.0-17.5) gm/dL Hct (39.0-53.0) % MCHC (31.0-37.0) g/dL RDW (11.5-15.5) % Neutrophils # (1.3-7.7) k/uL Lymphocytes # (1.0-4.8) k/uL Carbon Dioxide (22-30) mmol/L BUN (9-20) mg/dL Creatinine (0.66-1.25) mg/dL Glucose (74-99) mg/dL POC Glucose (mg/dL) 208 H 161 H (75-99) mg/dL Iron 54 L (65-175) ug/dL TIBC 218 L (228-460) ug/dL Total Protein (6.3-8.2) g/dL Albumin (3.5-5.0) g/dL 08/30/18 08/30/18 08/31/18 Range/Units 20:40 23:55 04:20 RBC 2.96 L (4.30-5.90) m/uL Hgb 8.5 L (13.0-17.5) gm/dL Hct 27.7 L (39.0-53.0) % MCHC 30.8 L (31.0-37.0) g/dL RDW 17.7 H (11.5-15.5) % Neutrophils # 8.5 H (1.3-7.7) k/uL Lymphocytes # 0.4 L (1.0-4.8) k/uL Carbon Dioxide (22-30) mmol/L BUN (9-20) mg/dL Creatinine (0.66-1.25) mg/dL Glucose (74-99) mg/dL POC Glucose (mg/dL) 213 H 185 H (75-99) mg/dL Iron (65-175) ug/dL TIBC (228-460) ug/dL Total Protein (6.3-8.2) g/dL Albumin (3.5-5.0) g/dL 08/31/18 08/31/18 Range/Units 04:20 08:19 RBC (4.30-5.90) m/uL Hgb (13.0-17.5) gm/dL Hct (39.0-53.0) % MCHC (31.0-37.0) g/dL RDW (11.5-15.5) % Neutrophils # (1.3-7.7) k/uL Lymphocytes # (1.0-4.8) k/uL Carbon Dioxide 31 H (22-30) mmol/L BUN 54 H (9-20) mg/dL Creatinine 1.59 H (0.66-1.25) mg/dL Glucose 116 H (74-99) mg/dL POC Glucose (mg/dL) 144 H (75-99) mg/dL Iron (65-175) ug/dL TIBC (228-460) ug/dL Total Protein 5.6 L (6.3-8.2) g/dL Albumin 2.8 L (3.5-5.0) g/dL Microbiology - Last 24 Hours (Table) 08/25/18 09:49 Blood Culture - Preliminary Blood No Growth after 120 hours Assessment and Plan Assessment: 1. Status post coronary artery bypass graft [address] Hannah postop day 14. The CHAHAL to LAD, SVG to PDA and Circ. Patient currently intubated and on sedation. Cardiovascular team and critical care team following closely. Patient currently up in chair. Patient has been extubated throughout night. hemoglobin 7.9. Discussed case with Luna per cardiovascular surgical team 2-D echo has been ordered due to diminished heart sounds. Hemoglobin 7.3. On 08/20 Patieht required reintubation due to extreme agitation and hypoxia. Critical care team following closely. 2. Acute respiratory failure. Patient required reintubation last night 08/20. Chest x-ray completed showing right pleural effusion and bilateral lower lobe pulmonary infiltrates. There is probably mild heart failure. Endotracheal tube is in good position. Heart and lungs appear unchanged. Chest ultrasound completed showing small to tiny bilateral pleural effusions. Per pulmompleted showing cardiomegaly nary team No thoracentesis at this time. Status post bronchoscopy on 08/21/2018. Suspect right lower lobe collapse. Critical care and pulmonary services following closely. bronchial cultures pending. 08/25 patient extubated to BiPAP. 08/31 chest x-ray showing right lower lobe atelectasis and/or infiltrate and to lesser external left lower lobe atelectasis. Small effusions are present. 3. Acute Non-ST elevated myocardial infarction: Heart catheterization showing multivessel coronary artery disease with thrombus in the LAD. Patient has been seen by vascular surgery and planning for open heart surgery on Friday. Continue IV heparin and Aggrastat per cardiology. Continue with IV fluids. Pulmonary service also consulted for preop clearance. 4. Acute kidney injury: Unclear patient has chronic kidney disease. Creatinine in March 2018 was 1.3. Continue with IV fluid hydration. Creatinine 1.42. Continue to monitor closely. Creatinine continued to increase to 1.60. Discussed case with Luna gardner from cardiovascular surgery will continue to monitor closely at this point. Creatinine improving to 1.40 and bun 41. Nephrology following. Creatinine 1.59 and bun 54. Patient currently on D5W and Lasix 20 mg every 12 per nephrology 5. Essential hypertension 6. Diabetes mellitus insulin-dependent. Hemoglobin A1c 7.9. Patient on sliding scale insulin. Lantus 10 units has been added. 08/27 Lantus has been increased to 25 units. Patient did pass followed swallow eval and now tolerating diet 7. History of COPD: No evidence of exacerbation. continue albuterol nebulizer as needed 8. BPH continue Flomax 9. Atelectasis noted on chest x-ray order incentive spirometer 10. Obesity BMI 39.4 kg 11. Possible acute ICU psychosis and delirium. Patient remains on Precedex. Critical care team following closely. On 08/20 patient required reintubation. patient extubated. 12. Expected acute blood loss anemia secondary to surgery. Hemoglobin 6.8. Cardiovascular surgery following closely. We'll continue to monitor closely. HemoGlobin 7.9 13. Elevated temperature. Patient febrile with 11.3. WBC improving to 9.9. Blood and urine culture negative 14. Postoperative atrial fibrillation, and expected outcome. Patient currently on amiodarone 15. Elevated liver enzymes. AST 85 and ALT 84. Discussed case with cardiothoracic MARINE DRAFTER. Resolved 16. Urinary retention. Orders per cardiovascular surgery to BladderScan for post for residual every 6 hours, May straight cath for greater than 300ml. Continue Flomax DVT prophylaxis heparin and GI prophylaxis Protonix I performed an examination of the patient and discussed their management with the Nurse Practitioner. I have reviewed the Nurse Practitioner's notes and agree with the documented findings and plan of care
[2018-08-31 11:52] VITALS: BMI 39.9
[2018-08-31 11:54] LABS: Magnesium 2.3 mg/dL (1.6-2.3); Phosphorus 3.3 mg/dL (2.5-4.5)
[2018-08-31 12:00] LABS: Glucose,Whole Blood 129 mg/dL (75-99)
--- NOTE | 2018-08-31 13:31 | PN ---
PROGRESS NOTE Cristo is a 73-year-old gentleman who was admitted to hospital with coronary artery disease, status post CABG. Patient has had recurrent episodes of respiratory failure and pleural effusion. He is doing well, remains stable hemodynamically in sinus rhythm, not in respiratory distress. PHYSICAL EXAMINATION: On exam, comfortable at rest. Afebrile. Heart rate is 60 beats per minute. Blood pressure is 107/58. Respiratory rate is 18. Chest exam reveals diminished air entry at the bases. Heart exam reveals first and second heart sounds. No gallop. Examination of the extremities reveals 1+ edema. Peripheral pulses are felt. LABS: Labs show a hemoglobin of 8.5. BUN is 54, creatinine is 1.5. Potassium is 4.4. ASSESSMENT: 1. Coronary artery disease, status post coronary artery bypass grafting. 2. Paroxysmal atrial fibrillation. 3. Respiratory insufficiency. 4. Chronic systolic heart failure. PLAN: Continue the oral amiodarone, aspirin, Lipitor, Lasix. MMODL / IJN: [id number] /
[2018-08-31 16:16] LABS: Glucose,Whole Blood 127 mg/dL (75-99)
--- NOTE | 2018-08-31 16:30 | P.PN ---
Subjective Progress Note Date: 08/31/18 On 08/31/2018, the patient is postop day #14 following coronary artery bypass surgery with three-vessel bypass. Note that the preoperatively, the patient had a non-ST elevation myocardial infarction and the patient had an impaired LV function with an ejection fraction of 20-25%. Other comorbidities include hypertension, hyperlipidemia, insulin-dependent diabetes mellitus, mild COPD, obesity, prostate cancer with previous radiation therapy, previous right nephrectomy and BPH On today's evaluation the patient is awake and alert. His chest x-ray showing elevation of the right hemidiaphragm with small amount of right-sided pleural effusion. Is still on oxygen and he is requiring higher flow. We'll wean down to 6 L of oxygen by nasal cannula and his saturation was 95%. He is using incentive spirometer. Sternum stable clean and intact. No significant cough or sputum production. Hemodynamically stable. No pleurisy or hemoptysis. The white cell count is at 9.4. Renal function is stable and the patient's creatinine is gradually improving is down to 1.5. White cell count is not elevated at 9.4. Mental status is good and appropriate. The patient is weak and has difficulties with mobility. The results of the bronchioloalveolar lavage showed no microbial growth and the patient is doing extremely well at this point in time his FiO2 has been gradually wean down to as low as 6 L per minute nasal cannula. His cardiac rhythm is sinus. Objective - Vital Signs Vital signs: Vital Signs Temp 98.2 F 08/31/18 12:00 Pulse 69 08/31/18 16:17 Resp 23 08/31/18 13:00 BP 114/55 08/31/18 13:00 Pulse Ox 95 08/31/18 13:00 Intake & Output 08/30/18 08/31/18 08/31/18 18:59 06:59 18:59 Intake Total 279 273 18 Output Total 1465 925 325 Balance -4589 -652 -054 Weight 105.6 kg 105.6 kg Intake: IV 279 33 18 Dextrose 5% in Water 1, 240 000 ml @ 40 mls/hr IV . Q24H ONE Rx#:[id number] pressure bags 39 33 18 Oral 240 Output: Urine 1465 925 325 Other: Voiding Method Incontinent Incontinent Incontinent # Voids 1 2 1 # Bowel Movements 0 ABP, PAP, CO, CI - Last Documented Arterial Blood Pressure 130/57 Pulmonary Artery Pressure 40/20 Cardiac Output 6.7 Cardiac Index 3.3 - Exam - Constitutional General appearance: Present: cooperative, no acute distress, obese - Respiratory Details: Lungs sounds diminished bilaterally, right greater than left, expiratory wheezes present. Respirations even, nonlabored. No stridor present. Currently on 6 L of oxygen by nasal cannula. Able to achieve 500 mL on his incentive spirometry. Effective cough with productive yellow brown sputum. The breath sounds are diminished in the right lung base and there is dullness to percussion related to underlying fluids/atelectasis. - Cardiovascular Details: S1, S2 present. Regular rate and rhythm, sinus rhythm on telemetry. A/V epicardial pacemaker wires present, connected to generator, AAI mode with backup rate 45 bpm. Palpable peripheral pulses bilaterally. Trace generalized edema present. No calf pain or tenderness noted. Right radial arterial line present. Heart hugger, antiembolism stockings, SCDs present. - Gastrointestinal Gastrointestinal Comment(s): Abdomen soft, nontender, nondistended. Active bowel sounds present 4 quadrants. Positive bowel movement 08/30. Tolerating diet. - Genitourinary Genitourinary Comment(s): Condom catheter remains in place. Patient continues to void clear, yellow urine , output 50-200 mL/h overnight, 825 mL in the last 8 hours. - Integumentary Integumentary Comment(s): Skin is warm and dry with evidence of good perfusion. Anterior chest incision well approximated and covered with dry intact dressing. Left lower extremity EVH site well approximated, ecchymosis present, expected. - Neurologic Neurologic: Present: CNII-XII intact - Musculoskeletal Musculoskeletal: Present: generalized weakness, strength equal bilaterally - Psychiatric Psychiatric: Present: A&O x's 3, appropriate affect, intact judgment & insight - Labs CBC & Chem 7: 08/31/18 04:20 08/31/18 04:20 Labs: Abnormal Lab Results - Last 24 Hours (Table) 08/30/18 08/30/18 08/30/18 Range/Units 04:30 16:44 20:40 RBC (4.30-5.90) m/uL Hgb (13.0-17.5) gm/dL Hct (39.0-53.0) % MCHC (31.0-37.0) g/dL RDW (11.5-15.5) % Neutrophils # (1.3-7.7) k/uL Lymphocytes # (1.0-4.8) k/uL Carbon Dioxide (22-30) mmol/L BUN (9-20) mg/dL Creatinine (0.66-1.25) mg/dL Glucose (74-99) mg/dL POC Glucose (mg/dL) 161 H 213 H (75-99) mg/dL Iron 54 L (65-175) ug/dL TIBC 218 L (228-460) ug/dL Total Protein (6.3-8.2) g/dL Albumin (3.5-5.0) g/dL 08/30/18 08/31/18 08/31/18 Range/Units 23:55 04:20 04:20 RBC 2.96 L (4.30-5.90) m/uL Hgb 8.5 L (13.0-17.5) gm/dL Hct 27.7 L (39.0-53.0) % MCHC 30.8 L (31.0-37.0) g/dL RDW 17.7 H (11.5-15.5) % Neutrophils # 8.5 H (1.3-7.7) k/uL Lymphocytes # 0.4 L (1.0-4.8) k/uL Carbon Dioxide 31 H (22-30) mmol/L BUN 54 H (9-20) mg/dL Creatinine 1.59 H (0.66-1.25) mg/dL Glucose 116 H (74-99) mg/dL POC Glucose (mg/dL) 185 H (75-99) mg/dL Iron (65-175) ug/dL TIBC (228-460) ug/dL Total Protein 5.6 L (6.3-8.2) g/dL Albumin 2.8 L (3.5-5.0) g/dL 08/31/18 08/31/18 08/31/18 Range/Units 08:19 11:58 16:13 RBC (4.30-5.90) m/uL Hgb (13.0-17.5) gm/dL Hct (39.0-53.0) % MCHC (31.0-37.0) g/dL RDW (11.5-15.5) % Neutrophils # (1.3-7.7) k/uL Lymphocytes # (1.0-4.8) k/uL Carbon Dioxide (22-30) mmol/L BUN (9-20) mg/dL Creatinine (0.66-1.25) mg/dL Glucose (74-99) mg/dL POC Glucose (mg/dL) 144 H 129 H 127 H (75-99) mg/dL Iron (65-175) ug/dL TIBC (228-460) ug/dL Total Protein (6.3-8.2) g/dL Albumin (3.5-5.0) g/dL Microbiology - Last 24 Hours (Table) 08/25/18 09:49 Blood Culture - Final Blood No Growth after 144 hours 08/21/18 13:23 Fungal Culture - Preliminary Bronchial Washings - Random Assessment and Plan Plan: #1. Multivessel coronary artery disease status post three-vessel bypass surgery. The patient had a 70% left main, 70% LAD and 85% obtuse marginal and he underwent three-vessel bypass surgery. Today's postop day #11. He is also post acute non-ST segment elevation myocardial infarction. #2. Acute hypoxic respiratory failure post thoracotomy and bypass surgery. His and expected outcome of surgery. The right hemidiaphragm is elevated and his atelectatic and there is also some limited right-sided pleural effusion. Underlying pneumonia is doubtful and the results of the bronchial lavage has been negative. The patient's oxygenation is gradually improving and is currently down to 6 L about 2 by nasal cannula. #3. Diabetes mellitus type 2, insulin-dependent #4. COPD, not on home oxygen, currently stable, based on FEV1 is around 87% of predicted #5. Obesity #6. History of right nephrectomy, and history of CKD, and acute kidney injury is improving and the creatinine is down to 1.59 #7. History of nicotine dependence, in remission. Patient quit smoking 45 years ago, but prior to that smoked up to 3 packs a day for 30 years #8. Hypertension #9. History of BPH, on Flomax #10 acute anemia, following bypass surgery, and expected outcome of coronary artery bypass surgery, hemoglobin is stable. #11 generalized debility and weakness #12 paroxysmal atrial fibrillation, post thoracotomy and current rhythm is sinus. The patient is on amiodarone for prophylaxis. Plan: Continue aspirin and Plavix and statins. Continue using incentive spirometer. Continue the beta blockers. Continue amiodarone. Increased level of activity as tolerated. The chest x-ray was reviewed and the ultrasound was reviewed. Amount of fluid in the right lung bases minimal. It is mainly related to atelectasis of the right lung base in addition to some elevation of the right hemidiaphragm. He will benefit from physical therapy and aggressive percussion therapy to the right chest. Continue Lasix 20 mg by mouth twice a day. Increased level of activity as tolerated. We'll continue to follow.
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
[2018-08-31 20:03] LABS: Glucose,Whole Blood 190 mg/dL (75-99)
[2018-08-31] MEDS: SENNOSIDES-DOCUSATE SODIUM 1 EACH TAB PO SCH (20:06)
[2018-08-31] MEDS: HYDROcodone/APAP 5-325MG 1 EACH TAB PO PRN (20:10)
[2018-08-31] MEDS: INSULIN DETEMIR 100 UNIT/ML 10 ML VIAL SQ SCH (20:56)
[2018-08-31 23:59] LABS: Glucose,Whole Blood 117 mg/dL (75-99)
[2018-09-01 03:51] LABS: Glucose,Whole Blood 101 mg/dL (75-99)
[2018-09-01 04:25] LABS: Anisocytosis Slight; Basophils % (A) 0 %; Eosinophils # (A) 0.1 k/uL (0-0.7); Eosinophils % (A) 1 %; HCT 29.5 % (39.0-53.0); HGB 9.2 gm/dL (13.0-17.5); Hypochromasia Moderate; Lymphocytes # (A) 0.4 k/uL (1.0-4.8); Lymphocytes % (A) 5 %; MCV 93.6 fL (80.0-100.0); Mean Platelet Volume 7.6; Monocytes # (A) 0.3 k/uL (0-1.0); Monocytes % (A) 4 %; Neutrophils # (A) 7.1 k/uL (1.3-7.7); Neutrophils % (A) 89 %; Platelet Count 266 k/uL (150-450); RBC 3.15 m/uL (4.30-5.90); RDW 17.2 % (11.5-15.5)
[2018-09-01 04:30] LABS: Albumin 2.8 g/dL (3.5-5.0); Calcium 8.5 mg/dL (8.4-10.2); Phosphorus 3.7 mg/dL (2.5-4.5); Potassium 4.4 mmol/L (3.5-5.1); Total Bilirubin 0.7 mg/dL (0.2-1.3); Total Protein 5.4 g/dL (6.3-8.2)
[2018-09-01] MEDS: INSULIN ASPART 100 UNIT/ML 1 ML 10 ML VIAL SQ SCH ×6 (05:31→23:26)
[2018-09-01] MEDS: PANTOPRAZOLE SODIUM 40 MG GRANULE PKT PO SCH (08:01)
[2018-09-01] MEDS: FERROUS SULFATE ORAL ELIXIR 300 MG/5 ML CUP PO SCH (08:01)
[2018-09-01] MEDS: TAMSULOSIN 0.4 MG CAP.ER.24H PO SCH ×2 (08:02→21:24)
[2018-09-01] MEDS: CLOPIDOGREL 75 MG TAB PO SCH (08:02)
[2018-09-01] MEDS: FUROSEMIDE 10 MG/ML 2 ML VIAL IV SCH ×2 (08:02→21:23)
[2018-09-01] MEDS: ASCORBIC ACID 500 MG TAB PO SCH (08:03)
[2018-09-01] MEDS: QUEtiapine 50 MG TAB PO SCH ×2 (08:03→21:23)
[2018-09-01] MEDS: ATORVASTATIN 40 MG TAB PO SCH (08:03)
[2018-09-01] MEDS: METOPROLOL TARTRATE 12.5 MG TAB PO SCH ×2 (08:05→21:23)
[2018-09-01] MEDS: AMIODARONE 200 MG TAB PO SCH ×2 (08:05→21:23)
[2018-09-01] MEDS: HEPARIN SODIUM,PORCINE 5,000 UNIT/ML 1 ML VIAL SQ SCH ×4 (08:05→23:26)
[2018-09-01 08:11] LABS: Glucose,Whole Blood 89 mg/dL (75-99)
--- NOTE | 2018-09-01 08:14 | XR ---
EXAMINATION TYPE: XR chest 1V portable DATE OF EXAM: 09/01/2018 COMPARISON: 08/31/2018 HISTORY: Post open heart TECHNIQUE: Single frontal view of the chest is obtained. FINDINGS: Bilateral airspace disease and pleural effusion. Postoperative changes. Heart size stable. No sizable pneumothorax. IMPRESSION: Stable bilateral consolidation and pleural effusion unchanged from the prior exam.
--- NOTE | 2018-09-01 08:23 | P.PN ---
Subjective Progress Note Date: 09/01/18 Principal diagnosis: Non-ST elevation myocardial infarction, impaired left ventricular systolic function with EF 20-25%, acute on chronic systolic heart failure. History of hypertension, hypertriglyceridemia insulin-dependent diabetes mellitus with preoperative hemoglobin A1c 7.1%, COPD with preoperative FEV1 87% of predicted, previous tobacco dependence, prostate cancer with radiation, right nephrectomy, obesity, BPH. POD #15 urgent coronary artery bypass grafting 3 vessels, left internal mammary artery to left anterior descending artery, reverse saphenous vein graft to obtuse marginal artery, reverse saphenous vein graft to posterior descending artery, endoscopic vein harvest of the left greater saphenous vein, epi-aortic ultrasound, intraoperative transesophageal echocardiogram, closure of sternum using titanium plates and [place] cable system. Postoperative acute blood loss anemia, an expected outcome of surgery secondary to cardiopulmonary bypass and hemodilution. Postoperative delirium, an unexpected outcome. Postoperative acute respiratory distress requiring reintubation, prolonged mechanical ventilation, an unexpected outcome. Postoperative right lower lobe collapse, secondary to mucus plugging, an unexpected outcome POD #11 bronchoscopy, bronchial alveolar lavage of the right middle lobe, right lower lobe, and washings of both lungs performed by Dr. Almodovar. Postoperative atrial fibrillation, an expected outcome. Patient's currently sitting up in bed in no acute distress. Does periodically get short of breath, especially after coughing. Currently on 8 L high flow nasal cannula with oxygen saturation 94%, did not need BiPAP overnight. Does complain of pain at his incisions which is controlled with current medication regimen. His oral intake has improved, and he states he is feeling a little better everyday. Objective - Vital Signs Vital signs: Vital Signs Temp 97.4 F L 09/01/18 04:00 Pulse 66 09/01/18 07:00 Resp 24 09/01/18 07:00 BP 123/55 09/01/18 07:00 Pulse Ox 97 09/01/18 07:00 Intake & Output 08/31/18 09/01/18 09/01/18 18:59 06:59 18:59 Intake Total 1235 250 Output Total 605 1400 Balance 630 -1150 Weight 105.6 kg 104.8 kg Intake: IV 39 pressure bags 39 Oral 1196 250 Output: Urine 605 1400 Other: Voiding Method Incontinent Incontinent # Voids 1 0 0 ABP, PAP, CO, CI - Last Documented Arterial Blood Pressure 130/57 Pulmonary Artery Pressure 40/20 Cardiac Output 6.7 Cardiac Index 3.3 - Constitutional General appearance: Present: cooperative, no acute distress, obese - Respiratory Details: Lungs sounds diminished bilaterally. Respirations even, nonlabored. No stridor present. Currently on 8L high flow nasal cannula with oxygen saturation 94%. Able to achieve 750 mL on his incentive spirometry. Effective cough with productive yellow brown sputum. - Cardiovascular Details: S1, S2 present. Regular rate and rhythm, sinus rhythm on telemetry. Sternum stable. A/V epicardial pacemaker wires present, grounded. Palpable peripheral pulses bilaterally. Trace generalized edema present. No calf pain or tenderness noted. Heart hugger, antiembolism stockings, SCDs present. - Gastrointestinal Gastrointestinal Comment(s): Abdomen soft, nontender, nondistended. Active bowel sounds present 4 quadrants. Positive bowel movement 08/30. Tolerating diet. - Genitourinary Genitourinary Comment(s): Condom catheter remains in place. Patient continues to void clear, yellow urine , output 1050 mL overnight. - Integumentary Integumentary Comment(s): Skin is warm and dry with evidence of good perfusion. Anterior chest incision well approximated and covered with dry intact dressing. Left lower extremity EVH site well approximated, ecchymosis present, expected. - Neurologic Neurologic: Present: CNII-XII intact - Musculoskeletal Musculoskeletal: Present: generalized weakness, strength equal bilaterally - Psychiatric Psychiatric: Present: A&O x's 3, appropriate affect, intact judgment & insight - Allied health notes Allied health notes reviewed: nursing - Labs CBC & Chem 7: 09/01/18 03:38 09/01/18 03:38 Labs: Abnormal Lab Results - Last 24 Hours (Table) 08/30/18 08/31/18 08/31/18 Range/Units 04:30 08:19 11:58 RBC (4.30-5.90) m/uL Hgb (13.0-17.5) gm/dL Hct (39.0-53.0) % RDW (11.5-15.5) % Lymphocytes # (1.0-4.8) k/uL Carbon Dioxide (22-30) mmol/L BUN (9-20) mg/dL Creatinine (0.66-1.25) mg/dL POC Glucose (mg/dL) 144 H 129 H (75-99) mg/dL Iron 54 L (65-175) ug/dL TIBC 218 L (228-460) ug/dL Total Protein (6.3-8.2) g/dL Albumin (3.5-5.0) g/dL 08/31/18 08/31/18 08/31/18 Range/Units 16:13 20:01 23:57 RBC (4.30-5.90) m/uL Hgb (13.0-17.5) gm/dL Hct (39.0-53.0) % RDW (11.5-15.5) % Lymphocytes # (1.0-4.8) k/uL Carbon Dioxide (22-30) mmol/L BUN (9-20) mg/dL Creatinine (0.66-1.25) mg/dL POC Glucose (mg/dL) 127 H 190 H 117 H (75-99) mg/dL Iron (65-175) ug/dL TIBC (228-460) ug/dL Total Protein (6.3-8.2) g/dL Albumin (3.5-5.0) g/dL 09/01/18 09/01/18 09/01/18 Range/Units 03:38 03:38 03:48 RBC 3.15 L (4.30-5.90) m/uL Hgb 9.2 L (13.0-17.5) gm/dL Hct 29.5 L (39.0-53.0) % RDW 17.2 H (11.5-15.5) % Lymphocytes # 0.4 L (1.0-4.8) k/uL Carbon Dioxide 31 H (22-30) mmol/L BUN 47 H (9-20) mg/dL Creatinine 1.50 H (0.66-1.25) mg/dL POC Glucose (mg/dL) 101 H (75-99) mg/dL Iron (65-175) ug/dL TIBC (228-460) ug/dL Total Protein 5.4 L (6.3-8.2) g/dL Albumin 2.8 L (3.5-5.0) g/dL Microbiology - Last 24 Hours (Table) 08/21/18 13:23 Acid Fast Bacilli Smear - Final Bronchial Washings - Random Acid Fast Bacilli Culture - Preliminary 08/25/18 09:49 Blood Culture - Final Blood No Growth after 144 hours 08/21/18 13:23 Fungal Culture - Preliminary Bronchial Washings - Random - Imaging and Cardiology Chest x-ray: report reviewed, image reviewed Assessment and Plan (1) CAD (coronary artery disease) Current Visit: Yes Status: Chronic Code(s): I25.10 - ATHSCL HEART DISEASE OF [place] CORONARY ARTERY W/O ANG PCTRS SNOMED Code(s): 74232744 (2) Left main coronary artery disease Current Visit: Yes Status: Chronic Code(s): I25.10 - ATHSCL HEART DISEASE OF [place] CORONARY ARTERY W/O ANG PCTRS SNOMED Code(s): 513886211 (3) Hypertension Current Visit: Yes Status: Chronic Code(s): I10 - ESSENTIAL (PRIMARY) HYPERTENSION SNOMED Code(s): 51162334 (4) Hyperlipidemia Current Visit: Yes Status: Chronic Code(s): E78.5 - HYPERLIPIDEMIA, UNSPECIFIED SNOMED Code(s): 26169812 (5) Insulin dependent diabetes mellitus Current Visit: Yes Status: Chronic Code(s): E11.9 - TYPE 2 DIABETES MELLITUS WITHOUT COMPLICATIONS; Z79.4 - FDC (CURRENT) USE OF INSULIN SNOMED Code(s): 56760166 (6) Tobacco dependence in remission Current Visit: No Status: Resolved Code(s): F17.201 - NICOTINE DEPENDENCE, UNSPECIFIED, IN REMISSION SNOMED Code(s): 868480453 (7) COPD (chronic obstructive pulmonary disease) Current Visit: Yes Status: Chronic Code(s): J44.9 - CHRONIC OBSTRUCTIVE PULMONARY DISEASE, UNSPECIFIED SNOMED Code(s): 15855970 (8) History of nephrectomy Current Visit: Yes Status: Chronic Code(s): Z90.5 - ACQUIRED ABSENCE OF KIDNEY SNOMED Code(s): 57837741132100 (9) Family history of heart disease Current Visit: Yes Status: Chronic Code(s): Z82.49 - FAMILY HX OF ISCHEM HEART DIS AND OTH DIS OF THE CIRC SYS SNOMED Code(s): 619898740 (10) History of prostate cancer Current Visit: Yes Status: Chronic Code(s): Z85.46 - PERSONAL HISTORY OF MALIGNANT NEOPLASM OF PROSTATE SNOMED Code(s): 148749496 (11) NSTEMI (non-ST elevated myocardial infarction) Current Visit: Yes Status: Acute Code(s): I21.4 - NON-ST ELEVATION (NSTEMI) MYOCARDIAL INFARCTION SNOMED Code(s): 587159406 Plan: 1. Continue aspirin, statin, Plavix, beta laurie. Will increase beta laurie therapy as tolerated. Continue as needed Apresoline IV for hypertension. 2. Continue amiodarone for A. fib prophylaxis. No need for anticoagulation unless in atrial fibrillation for greater than 24 hours. 3. Wean O2 as tolerated. BiPAP management per pulmonology. Encourage incentive spirometry use 10 times every hour. 4. Increase activity, up to chair as able. PT/OT/cardiac rehab following. 5. Encourage oral intake. 6. Bronchodilators per pulmonology. 7. Insulin per primary care service. 8. Will monitor daily labs and x-rays. Cultures negative. 9. GI prophylaxis with Protonix. DVT prophylaxis with subcu heparin, SCDs. 10. Pain control with current medication regimen. 11. Continue Lasix 20 mg twice daily by nephrology. 12. Will place transfer orders for 6E. [facility]. 13. Discharge planning in progress. Anticipate discharge to subacute rehab soon. 14. More recommendations to follow. Time with Patient: Greater than 30
[2018-09-01] MEDS: IPRATROPIUM-ALBUTEROL 3 ML NEB INHALATION SCH ×4 (09:23→20:24)
--- NOTE | 2018-09-01 09:30 | P.PN ---
Subjective Progress Note Date: 09/01/18 This is a 73-year-old male, patient of [facility]. He has a known past medical history of hypertension, diabetes mellitus, COPD, right nephrectomy 1970 and former smoker. Patient presents to the emergency room with complaints of chest pain with pressure and heaviness and diaphoresis. Symptoms had started yesterday. Patient was diagnosed with a non-ST elevated VA. Initial troponin 0.128 then 11.6 and 11.8. Patient was started on IV heparin cardiology was consulted. And patient underwent heart catheterization today. The heart catheterization shows total occlusion of the right coronary artery. Left main is 70-75% stenosed. The left anterior descending coronary artery has a mid lesion of 70% with thrombus. Obtuse marginal had 80-85% stenosis. Cardiology is recommending open-heart surgery. That her surgery has been consulted. They have already evaluated patient and surgery we'll possibly be on Friday. Pulmonary service has also been consulted. Patient is receiving IV fluids. He was slightly dehydrated on admission creatinine was 1.44. Unclear baseline creatinine. Creatinine in March 2018 was 1.3. Patient currently is chest pain-free. He reports that symptoms started after eating spicy soup and when he came back home he belched a large amount of gas and is relieved the pressure. He has been chest pain-free. Cardiology has placed him on IV heparin and Aggrastat. On 08/15/2018 patient was seen and examined he is alert and oriented 3 in no apparent distress he is sitting at the edge of the bed and he denies any chest pain there is no shortness of breath at rest he has occasional cough no palpitation no nausea or vomiting no abdominal pain no diarrhea no constipation no burning with urination no frequency or urgency and no hematuria. On 08/16/2018 patient was seen and examined on the telemetry floor he is alert and oriented 3 in no distress he denies any new episodes of chest pain he denies any other symptoms there is no fever or chills no headache or dizziness no shortness of breath no cough no nausea or vomiting no abdominal pain no diarrhea no burning was urination no frequency or urgency and no hematuria On 08/17/2018 Patient had coronary artery bypass graft [address] Hannah today. Patient currently intubated and on sedation. Patient remains in the intensive care unit. Patient currently on levophed for pressure support. On 08/18/2018 patient is currently postop day 1 and coronary artery bypass graft surgery. Patient is currently up in chair. Patient was extubated throughout night. Precedex drip has been DC'd per cardiovascular team. Patient remains sleepy but alert and arousable. At this time patient denies shortness of breath. Denies nausea vomiting or diarrhea. Denies any urinary burning. On 08/19/2018 patient is currently postop day 2 from coronary artery bypass graft. Per nursing staff patient is confused. Patient is also requiring BiPAP to maintain adequate oxygenation. Discussed case with Luna from the cardiovascular surgical team. Patient remains on Precedex drip. safety sitting at bedside. On 08/20/2018 patient is currently postop day 2 from coronary artery bypass graft. Patient remains on BiPAP for adequate oxygen. Precedex drip has been DC 'd. Patient does seem more alert. Patient followed closely by cardiovascular surgical team and critical care On 08/21/2018 patient got reintubated last night due to agitation and hypoxia. Patient is currently on propofol for sedation. Patient also started on Levophed for pressure support. Critical care team following closely. On 08/22/2018 patient got reintubated due to agitation and hypoxia. Patient is currently on propofol for sedation. Patient also started on Levophed for pressure support. Critical care team following closely. On 08/23/2018 patient is intubated sedated maintained on mechanical ventilation , he had a sedation holiday for about 1 hour at that time he was following commands. At this time he is back on sedation urine output is adequate. Hemoglobin is down to 7.2 On 08/24/2018 patient remains intubated on mechanical ventilation in the intensive care unit. Per nursing staff patient becomes agitated during sedation holidays. Hemoglobin decreasing to 7.1. Sedation holiday will be attempted again today. On 08/25/2018 patient recently extubated this a.m. Patient currently on BiPAP. Patient remains on Precedex drip. Patient is responsive to name. Patient having elevated temps at 101.3. Urine and blood cultures have been ordered per surgical vascular team. Bronchoscopy washing cultures showing no organisms at this time. On 08/26/2018 patient remains extubated on BiPAP. Patient is responsive to name in follow some commands. Long acting insulin increased to 20 units daily. Urine and blood cultures pending. Patient still having low-grade temps 100.4. On 08/27/2018 patient currently on BiPAP. Patient did have episode of A. fib with RVR throughout night. Patient currently on amiodarone drip per cardiovascular surgery. Shad montelongo will be assessed today. At this time patient is awake and alert. On 08/28/2018 she currently remains on BiPAP. Per nursing staff patient is only able to tolerate being off BiPAP temporarily due to increased respiratory rate. Patient is eating. Patient is awake and alert. Patient remains in the intensive care unit On 08/29/2018 patient was seen and examined in ICU he is alert and oriented in no apparent distress he is maintained on oxygen via nasal cannula and is tolerating well he denies any chest pain at this time there is no fever or chills there is occasional cough no shortness of breath at rest no nausea or vomiting no abdominal pain he had 2 episodes of loose stools there is no urinary symptoms. On 08/30/2018 patient is alert and oriented in no distress he was seen and examined in the intensive care unit, he denies any chest pain or shortness of breath is lying comment to bleeding in bed there is no fever or chills no headache or dizziness no nausea or vomiting no abdominal pain no diarrhea and no urinary symptoms. Nurse is reporting that patient has urinary retention he is able to urinate but he is requiring straight cath occasionally. On 08/31/2018 patient remains in the intensive care unit. Patient looks much improved. Patient is awake and alert. Patient is currently on high flow 10 L. At this time patient denies chest pain. Patient denies any nausea vomiting or diarrhea. On 09/01/2018 patient is alert and oriented. Patient is currently on high flow 8 L high flow. Per nursing staff patient to be transferred out of intensive care unit today to [facility] care. At this time patient denies chest pain or shortness of breath. Denies nausea vomiting or diarrhea. Denies any urinary burning or frequency Objective - Vital Signs Vital signs: Vital Signs Temp 98.0 F 09/01/18 08:00 Pulse 71 09/01/18 08:00 Resp 21 09/01/18 08:00 BP 114/54 09/01/18 08:00 Pulse Ox 95 09/01/18 08:00 Intake & Output 08/31/18 09/01/18 09/01/18 18:59 06:59 18:59 Intake Total 1235 250 Output Total 605 1400 Balance 630 -1150 Weight 105.6 kg 104.8 kg Intake: IV 39 pressure bags 39 Oral 1196 250 Output: Urine 605 1400 Other: Voiding Method Incontinent Incontinent # Voids 1 0 0 ABP, PAP, CO, CI - Last Documented Arterial Blood Pressure 130/57 Pulmonary Artery Pressure 40/20 Cardiac Output 6.7 Cardiac Index 3.3 - Exam Head normocephalic Neck supple Lungs Breath sounds diminished bilaterally wheezing noted bilaterally Heart regular rate and rhythm S1-S2, no rub or gallop Abdomen is soft nontender nondistended positive bowel sounds no hepatosplenomegaly Extremities no edema Neuro patient is following some commands and responds to name - Labs CBC & Chem 7: 09/01/18 03:38 09/01/18 03:38 Labs: Abnormal Lab Results - Last 24 Hours (Table) 08/30/18 08/31/18 08/31/18 Range/Units 04:30 11:58 16:13 RBC (4.30-5.90) m/uL Hgb (13.0-17.5) gm/dL Hct (39.0-53.0) % RDW (11.5-15.5) % Lymphocytes # (1.0-4.8) k/uL Carbon Dioxide (22-30) mmol/L BUN (9-20) mg/dL Creatinine (0.66-1.25) mg/dL POC Glucose (mg/dL) 129 H 127 H (75-99) mg/dL Iron 54 L (65-175) ug/dL TIBC 218 L (228-460) ug/dL Total Protein (6.3-8.2) g/dL Albumin (3.5-5.0) g/dL 08/31/18 08/31/18 09/01/18 Range/Units 20:01 23:57 03:38 RBC (4.30-5.90) m/uL Hgb (13.0-17.5) gm/dL Hct (39.0-53.0) % RDW (11.5-15.5) % Lymphocytes # (1.0-4.8) k/uL Carbon Dioxide 31 H (22-30) mmol/L BUN 47 H (9-20) mg/dL Creatinine 1.50 H (0.66-1.25) mg/dL POC Glucose (mg/dL) 190 H 117 H (75-99) mg/dL Iron (65-175) ug/dL TIBC (228-460) ug/dL Total Protein 5.4 L (6.3-8.2) g/dL Albumin 2.8 L (3.5-5.0) g/dL 09/01/18 09/01/18 Range/Units 03:38 03:48 RBC 3.15 L (4.30-5.90) m/uL Hgb 9.2 L (13.0-17.5) gm/dL Hct 29.5 L (39.0-53.0) % RDW 17.2 H (11.5-15.5) % Lymphocytes # 0.4 L (1.0-4.8) k/uL Carbon Dioxide (22-30) mmol/L BUN (9-20) mg/dL Creatinine (0.66-1.25) mg/dL POC Glucose (mg/dL) 101 H (75-99) mg/dL Iron (65-175) ug/dL TIBC (228-460) ug/dL Total Protein (6.3-8.2) g/dL Albumin (3.5-5.0) g/dL Microbiology - Last 24 Hours (Table) 08/21/18 13:23 Acid Fast Bacilli Smear - Final Bronchial Washings - Random Acid Fast Bacilli Culture - Preliminary 08/25/18 09:49 Blood Culture - Final Blood No Growth after 144 hours 08/21/18 13:23 Fungal Culture - Preliminary Bronchial Washings - Random Assessment and Plan Assessment: 1. Status post coronary artery bypass graft [address] Hannah postop day 14. The CHAHAL to LAD, SVG to PDA and Circ. Patient currently intubated and on sedation. Cardiovascular team and critical care team following closely. Patient currently up in chair. Patient has been extubated throughout night. hemoglobin 7.9. Discussed case with Luna per cardiovascular surgical team 2-D echo has been ordered due to diminished heart sounds. Hemoglobin 7.3. On 08/20 Patieht required reintubation due to extreme agitation and hypoxia. Critical care team following closely. 2. Acute respiratory failure. Patient required reintubation last night 08/20. Chest x-ray completed showing right pleural effusion and bilateral lower lobe pulmonary infiltrates. There is probably mild heart failure. Endotracheal tube is in good position. Heart and lungs appear unchanged. Chest ultrasound completed showing small to tiny bilateral pleural effusions. Per pulmompleted showing cardiomegaly nary team No thoracentesis at this time. Status post bronchoscopy on 08/21/2018. Suspect right lower lobe collapse. Critical care and pulmonary services following closely. bronchial cultures pending. 08/25 patient extubated to BiPAP. 08/31 chest x-ray showing right lower lobe atelectasis and/or infiltrate and to lesser external left lower lobe atelectasis. Small effusions are present. Patient currently on 8 L high flow nasal cannula 3. Acute Non-ST elevated myocardial infarction: Heart catheterization showing multivessel coronary artery disease with thrombus in the LAD. Patient has been seen by vascular surgery and planning for open heart surgery on Friday. Continue IV heparin and Aggrastat per cardiology. Continue with IV fluids. Pulmonary service also consulted for preop clearance. 4. Acute kidney injury: Unclear patient has chronic kidney disease. Creatinine in March 2018 was 1.3. Continue with IV fluid hydration. Creatinine 1.42. Continue to monitor closely. Creatinine continued to increase to 1.60. Discussed case with Luna gardner from cardiovascular surgery will continue to monitor closely at this point. Creatinine improving to 1.40 and bun 41. Nephrology following. Creatinine 1.59 and bun 54. Patient currently on D5W and Lasix 20 mg every 12 per nephrology 5. Essential hypertension 6. Diabetes mellitus insulin-dependent. Hemoglobin A1c 7.9. Patient on sliding scale insulin. Lantus 10 units has been added. 08/27 Lantus has been increased to 25 units. Patient did pass followed swallow eval and now tolerating diet. Blood sugars are improving. 7. History of COPD: No evidence of exacerbation. continue albuterol nebulizer as needed 8. BPH continue Flomax 9. Atelectasis noted on chest x-ray order incentive spirometer 10. Obesity BMI 39.4 kg 11. Possible acute ICU psychosis and delirium. Patient remains on Precedex. Critical care team following closely. On 08/20 patient required reintubation. patient extubated. 12. Expected acute blood loss anemia secondary to surgery. Hemoglobin 6.8. Cardiovascular surgery following closely. We'll continue to monitor closely. HemoGlobin 7.9 13. Elevated temperature. Patient febrile with 11.3. WBC improving to 9.9. Blood and urine culture negative 14. Postoperative atrial fibrillation, and expected outcome. Patient currently on amiodarone 15. Elevated liver enzymes. AST 85 and ALT 84. Discussed case with cardiothoracic CREDIT OFFICER. Resolved 16. Urinary retention. Orders per cardiovascular surgery to BladderScan for post for residual every 6 hours, May straight cath for greater than 300ml. Continue Flomax DVT prophylaxis heparin and GI prophylaxis Protonix I performed an examination of the patient and discussed their management with the Nurse Practitioner. I have reviewed the Nurse Practitioner's notes and agree with the documented findings and plan of care
--- NOTE | 2018-09-01 10:56 | PN ---
PROGRESS NOTE Cristo is a 73-year-old gentleman with history of coronary artery disease, status post CABG with episodes of respiratory failure, pleural effusion, and atrial fibrillation. This morning he is feeling much better and is currently in the process of being transferred to 6th floor. PHYSICAL EXAMINATION: On exam, heart rate is 70 beats per minute. Blood pressure is 121/54. Respiratory rate is 18. Chest exam reveals diminished air entry at the bases. Heart exam reveals first and second heart sounds. No gallop. Abdomen is soft. Examination of the extremities shows that the foot pulses are intact. LABS: Labs show a hemoglobin of 9.2, platelet count is 266. Potassium is 4.4. Creatinine is 1.5. ASSESSMENT: 1. Coronary artery disease, status post coronary artery bypass grafting. 2. Paroxysmal atrial fibrillation. 3. Chronic systolic heart failure. PLAN: Will continue the patient on oral amiodarone, Lipitor, aspirin, Plavix. MMODL / IJN: [id number] /
--- NOTE | 2018-09-01 11:03 | P.PN ---
Subjective Progress Note Date: 09/01/18 On 08/31/2018, the patient is postop day #14 following coronary artery bypass surgery with three-vessel bypass. Note that the preoperatively, the patient had a non-ST elevation myocardial infarction and the patient had an impaired LV function with an ejection fraction of 20-25%. Other comorbidities include hypertension, hyperlipidemia, insulin-dependent diabetes mellitus, mild COPD, obesity, prostate cancer with previous radiation therapy, previous right nephrectomy and BPH On today's evaluation the patient is awake and alert. His chest x-ray showing elevation of the right hemidiaphragm with small amount of right-sided pleural effusion. Is still on oxygen and he is requiring higher flow. We'll wean down to 6 L of oxygen by nasal cannula and his saturation was 95%. He is using incentive spirometer. Sternum stable clean and intact. No significant cough or sputum production. Hemodynamically stable. No pleurisy or hemoptysis. The white cell count is at 9.4. Renal function is stable and the patient's creatinine is gradually improving is down to 1.5. White cell count is not elevated at 9.4. Mental status is good and appropriate. The patient is weak and has difficulties with mobility. The results of the bronchioloalveolar lavage showed no microbial growth and the patient is doing extremely well at this point in time his FiO2 has been gradually wean down to as low as 6 L per minute nasal cannula. His cardiac rhythm is sinus. On 09/01/2018, the patient is doing well. No specific complaints. Still on 6 L of oxygen by nasal cannula. Chest x-ray shows no major interval change. The patient is being diuresis with Lasix 20 mg IV push every 12 hours. His chest x- ray is still stable. The patient is doing well. Using incentive spirometer. Receiving also chest PT. Renal function is stable at creatinine of 1.5. The patient's sternum stable clean and intact. No leukocytosis. No nausea. No vomiting. No diarrhea. Cardiac rhythm is sinus for now. He is on amiodarone 400 mg by mouth twice a day. He is not receiving any anticoagulation. He is not sterilizing his BiPAP overnight. He is on Levemir insulin 25 units daily along with ascites care coverage. Objective - Vital Signs Vital signs: Vital Signs Temp 98.0 F 09/01/18 08:00 Pulse 65 09/01/18 09:38 Resp 15 09/01/18 09:00 BP 121/54 09/01/18 09:00 Pulse Ox 95 09/01/18 09:48 Intake & Output 08/31/18 09/01/18 09/01/18 18:59 06:59 18:59 Intake Total 1235 250 Output Total 605 1400 150 Balance 630 -1150 -150 Weight 105.6 kg 104.8 kg 104.8 kg Intake: IV 39 pressure bags 39 Oral 1196 250 Output: Urine 605 1400 150 Other: Voiding Method Incontinent Incontinent # Voids 1 0 0 ABP, PAP, CO, CI - Last Documented Arterial Blood Pressure 130/57 Pulmonary Artery Pressure 40/20 Cardiac Output 6.7 Cardiac Index 3.3 - Exam - Constitutional General appearance: Present: cooperative, no acute distress, obese - Respiratory Details: Lungs sounds diminished bilaterally, right greater than left, expiratory wheezes present. Respirations even, nonlabored. No stridor present. Currently on 6 L of oxygen by nasal cannula. Able to achieve 500 mL on his incentive spirometry. Effective cough with productive yellow brown sputum. The breath sounds are diminished in the right lung base and there is dullness to percussion related to underlying fluids/atelectasis. - Cardiovascular Details: S1, S2 present. Regular rate and rhythm, sinus rhythm on telemetry. A/V epicardial pacemaker wires present, connected to generator, AAI mode with backup rate 45 bpm. Palpable peripheral pulses bilaterally. Trace generalized edema present. No calf pain or tenderness noted. Right radial arterial line present. Heart hugger, antiembolism stockings, SCDs present. - Gastrointestinal Gastrointestinal Comment(s): Abdomen soft, nontender, nondistended. Active bowel sounds present 4 quadrants. Positive bowel movement 08/30. Tolerating diet. - Genitourinary Genitourinary Comment(s): Condom catheter remains in place. Patient continues to void clear, yellow urine , output 50-200 mL/h overnight, 825 mL in the last 8 hours. - Integumentary Integumentary Comment(s): Skin is warm and dry with evidence of good perfusion. Anterior chest incision well approximated and covered with dry intact dressing. Left lower extremity EVH site well approximated, ecchymosis present, expected. - Neurologic Neurologic: Present: CNII-XII intact - Musculoskeletal Musculoskeletal: Present: generalized weakness, strength equal bilaterally - Psychiatric Psychiatric: Present: A&O x's 3, appropriate affect, intact judgment & insight - Labs CBC & Chem 7: 09/01/18 03:38 09/01/18 03:38 Labs: Abnormal Lab Results - Last 24 Hours (Table) 08/31/18 08/31/18 08/31/18 Range/Units 11:58 16:13 20:01 RBC (4.30-5.90) m/uL Hgb (13.0-17.5) gm/dL Hct (39.0-53.0) % RDW (11.5-15.5) % Lymphocytes # (1.0-4.8) k/uL Carbon Dioxide (22-30) mmol/L BUN (9-20) mg/dL Creatinine (0.66-1.25) mg/dL POC Glucose (mg/dL) 129 H 127 H 190 H (75-99) mg/dL Total Protein (6.3-8.2) g/dL Albumin (3.5-5.0) g/dL 08/31/18 09/01/18 09/01/18 Range/Units 23:57 03:38 03:38 RBC 3.15 L (4.30-5.90) m/uL Hgb 9.2 L (13.0-17.5) gm/dL Hct 29.5 L (39.0-53.0) % RDW 17.2 H (11.5-15.5) % Lymphocytes # 0.4 L (1.0-4.8) k/uL Carbon Dioxide 31 H (22-30) mmol/L BUN 47 H (9-20) mg/dL Creatinine 1.50 H (0.66-1.25) mg/dL POC Glucose (mg/dL) 117 H (75-99) mg/dL Total Protein 5.4 L (6.3-8.2) g/dL Albumin 2.8 L (3.5-5.0) g/dL 09/01/18 Range/Units 03:48 RBC (4.30-5.90) m/uL Hgb (13.0-17.5) gm/dL Hct (39.0-53.0) % RDW (11.5-15.5) % Lymphocytes # (1.0-4.8) k/uL Carbon Dioxide (22-30) mmol/L BUN (9-20) mg/dL Creatinine (0.66-1.25) mg/dL POC Glucose (mg/dL) 101 H (75-99) mg/dL Total Protein (6.3-8.2) g/dL Albumin (3.5-5.0) g/dL Microbiology - Last 24 Hours (Table) 08/21/18 13:23 Acid Fast Bacilli Smear - Final Bronchial Washings - Random Acid Fast Bacilli Culture - Preliminary 08/25/18 09:49 Blood Culture - Final Blood No Growth after 144 hours 08/21/18 13:23 Fungal Culture - Preliminary Bronchial Washings - Random Assessment and Plan Plan: #1. Multivessel coronary artery disease status post three-vessel bypass surgery. The patient had a 70% left main, 70% LAD and 85% obtuse marginal and he underwent three-vessel bypass surgery. Today's postop day #12. He is also post acute non-ST segment elevation myocardial infarction. #2. Acute hypoxic respiratory failure post thoracotomy and bypass surgery. His and expected outcome of surgery. The right hemidiaphragm is elevated and his atelectatic and there is also some limited right-sided pleural effusion. Underlying pneumonia is doubtful and the results of the bronchial lavage has been negative. The patient's oxygenation is gradually improving and is currently down to 6 L and today the chest x-ray remains stable and there is no interval worsening in oxygenation and patient is receiving chest PT and percussion therapy. #3. Diabetes mellitus type 2, insulin-dependent #4. COPD, not on home oxygen, currently stable, based on FEV1 is around 87% of predicted #5. Obesity #6. History of right nephrectomy, and history of CKD, and acute kidney injury is improving and the creatinine is down to 1.5 #7. History of nicotine dependence, in remission. Patient quit smoking 45 years ago, but prior to that smoked up to 3 packs a day for 30 years #8. Hypertension #9. History of BPH, on Flomax #10 acute anemia, following bypass surgery, and expected outcome of coronary artery bypass surgery, hemoglobin is stable. #11 generalized debility and weakness #12 paroxysmal atrial fibrillation, post thoracotomy and current rhythm is sinus. The patient is on amiodarone for prophylaxis. Plan: The patient came moved out of the intensive care unit. The level of activity as tolerated. Wean FiO2 to maintain a saturation above 90%. Medication was reviewed. No other changes from my standpoint. We'll continue IV Lasix 24 hours. The patient is a negative fluid balance of -1.8. Suggest continuing diuresis for now.
[2018-09-01] MEDS: ASPIRIN 325 MG TAB PO SCH (11:29)
[2018-09-01 11:31] LABS: Glucose,Whole Blood 119 mg/dL (75-99)
[2018-09-01 16:54] LABS: Glucose,Whole Blood 124 mg/dL (75-99)
[2018-09-01 20:24] LABS: Glucose,Whole Blood 144 mg/dL (75-99)
[2018-09-01] MEDS: SENNOSIDES-DOCUSATE SODIUM 1 EACH TAB PO SCH (21:23)
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
[2018-09-01] MEDS: INSULIN DETEMIR 100 UNIT/ML 10 ML VIAL SQ SCH (21:33)
[2018-09-01 23:36] LABS: Glucose,Whole Blood 157 mg/dL (75-99)
[2018-09-02] MEDS: HYDROcodone/APAP 5-325MG 1 EACH TAB PO PRN (01:30)
[2018-09-02 03:59] LABS: Glucose,Whole Blood 90 mg/dL (75-99)
[2018-09-02] MEDS: INSULIN ASPART 100 UNIT/ML 1 ML 10 ML VIAL SQ SCH ×5 (04:39→21:45)
[2018-09-02] MEDS: PANTOPRAZOLE SODIUM 40 MG GRANULE PKT PO SCH (06:11)
[2018-09-02 07:34] LABS: Anisocytosis Slight; HCT 30.8 % (39.0-53.0); HGB 9.6 gm/dL (13.0-17.5); Hypochromasia Moderate; MCH 29.3 pg (25.0-35.0); MCHC 31.1 g/dL (31.0-37.0); MCV 94.2 fL (80.0-100.0); Macrocytosis Slight; Mean Platelet Volume 7.7; Platelet Count 241 k/uL (150-450); RBC 3.27 m/uL (4.30-5.90); RDW 17.4 % (11.5-15.5); WBC 8.2 k/uL (3.8-10.6)
[2018-09-02 07:51] LABS: Albumin 2.9 g/dL (3.5-5.0); Calcium 8.6 mg/dL (8.4-10.2); Potassium 4.4 mmol/L (3.5-5.1); Total Protein 5.6 g/dL (6.3-8.2)
--- NOTE | 2018-09-02 07:53 | XR ---
EXAMINATION TYPE: XR chest 2V DATE OF EXAM: 09/02/2018 COMPARISON: 09/01/2018 HISTORY: 73 year-old male post cardiac surgery TECHNIQUE: Frontal and lateral views FINDINGS: Median sternotomy wires are redemonstrated. Heart remains mildly enlarged. There may be slightly incr eased volume loss in the right hemithorax. Chronic elevation of the right hemidiaphragm. Persistent p atchy left basilar opacity. Bilateral small effusions seen best on the lateral view. IMPRESSION: Cardiomegaly with persistent volume loss right hemithorax. The volume loss may be increased from prio r. Persistent patchy left basilar atelectasis or consolidation with continued small effusions.
[2018-09-02 08:54] LABS: Glucose,Whole Blood 159 mg/dL (75-99)
[2018-09-02] MEDS: IPRATROPIUM-ALBUTEROL 3 ML NEB INHALATION SCH ×4 (09:18→21:06)
--- NOTE | 2018-09-02 09:48 | P.PN ---
Subjective Progress Note Date: 09/02/18 Principal diagnosis: Non-elevated myocardial infarction this admission, symptomatic multivessel coronary artery disease, preoperative impaired left ventricular systolic function with an ejection fraction of 20-25%, hypertension, insulin-dependent diabetes mellitus with a preoperative hemoglobin A1c of 7.1%, COPD with a FEV1 of 87% of predicted, history of nicotine dependence quit smoking in 1979, history of prostate cancer with radiation more than 20 years ago, BPH, obesity with a BMI of 39.4, history of right nephrectomy in 1969, baseline admission creatinine 1.44 and hyperlipidemia. POD #16 urgent coronary artery bypass grafting 3 vessels, left internal mammary artery to left anterior descending coronary artery, a reverse greater saphenous vein graft to obtuse marginal coronary artery, a reverse greater saphenous vein graft to posterior descending coronary artery, endoscopic vein harvest of the left greater saphenous vein, epi-aortic ultrasound, intraoperative transesophageal echocardiogram, closure of sternum using titanium plates and [place] cable system. POD #12 bronchoscopy, bronchoalveolar lavage of the right middle lobe, right lower lobe and washings of both lungs performed by Dr. Almodovar from pulmonary medicine. Postoperative right lower lobe collapse, secondary to mucous plugging, an unexpected outcome. Postoperative delirium, an unexpected outcome. Postoperative acute respiratory distress requiring reintubation, and prolonged mechanical ventilation, an unexpected outcome. Postoperative acute blood loss anemia, an expected outcome of surgery due to cardiopulmonary bypass and hemodilution. Postoperative paroxysmal atrial fibrillation, an unexpected but potential outcome of surgery. Patient is currently sitting up to the bedside chair. He is in no acute distress. He is complaining of a barking loose productive cough. Denies any complaints of pain or shortness of breath at this time. Currently on 5 L nasal cannula with oxygen saturations 94%. He is achieving 750-1000 mL on his incentive spirometry with encouragement. He was bladder scanned during the night for 400 mL, and was straight cath for 700 mL of urine. Objective - Vital Signs Vital signs: Vital Signs Temp 99.6 F 09/02/18 08:00 Pulse 75 09/02/18 08:00 Resp 18 09/02/18 08:00 BP 111/61 09/02/18 08:00 Pulse Ox 92 L 09/02/18 08:00 Intake & Output 09/01/18 09/02/18 09/02/18 18:59 06:59 18:59 Intake Total 342 10 240 Output Total 150 700 Balance 192 -690 240 Weight 104.8 kg Intake: IV 10 Invasive Line 1 10 Oral 342 240 Output: Urine 150 700 Uretheral ([place]) 700 Other: Voiding Method Incontinent Diaper Incontinent # Voids 0 2 # Bowel Movements 1 ABP, PAP, CO, CI - Last Documented Arterial Blood Pressure 130/57 Pulmonary Artery Pressure 40/20 Cardiac Output 6.7 Cardiac Index 3.3 - Constitutional General appearance: Present: cooperative, morbidly obese, no acute distress - Respiratory Details: Lung sounds with a few scattered rhonchi throughout, diminished to his bilateral bases. Respirations are symmetrical and nonlabored. Oxygen saturation are 94% on 5 L nasal cannula. He is achieving 750 mL to 1000 mL on his incentive spirometry. Productive cough with tenacious yellow sputum. - Cardiovascular Details: Regular rhythm and rate. S1 and S2 present, negative for S3, gallop or murmur. Sternum is stable. Remote telemetry showing normal sinus rhythm heart rate 73. Atrial and ventricular epicardial pacemaker wires in place and grounded. No edema present. Knee-high MARCELLE hose and sequential compression devices in place to his bilateral lower extremities. Heart hugger's in place and he is demonstrating appropriate use with encouragement. - Gastrointestinal Gastrointestinal Comment(s): Abdomen is soft, nontender and nondistended. Active bowel sounds to all 4 abdominal quadrants. Bowel movement yesterday 09/01/2018. Passing flatus. Tolerating oral intake. - Genitourinary Genitourinary Comment(s): Episodes of incontinence. Straight cath last night for 700 mL of urine. - Integumentary Integumentary Comment(s): Skin is warm and dry. No clubbing or cyanosis present. Midline sternal incision clean dry and approximated. No drainage or redness present. Left lower extremity EVH site clean dry and approximated. Left thigh ecchymosis present and soft. - Neurologic Neurologic Comment(s): no focal deficits. Neurologic: Present: CNII-XII intact - Musculoskeletal Musculoskeletal: Present: generalized weakness, strength equal bilaterally - Psychiatric Psychiatric: Present: A&O x's 3, appropriate affect, intact judgment & insight - Allied health notes Allied health notes reviewed: nursing - Labs CBC & Chem 7: 09/02/18 06:44 09/02/18 06:44 Labs: Abnormal Lab Results - Last 24 Hours (Table) 09/01/18 09/01/18 09/01/18 Range/Units 11:27 16:21 20:22 RBC (4.30-5.90) m/uL Hgb (13.0-17.5) gm/dL Hct (39.0-53.0) % RDW (11.5-15.5) % Carbon Dioxide (22-30) mmol/L BUN (9-20) mg/dL Creatinine (0.66-1.25) mg/dL Glucose (74-99) mg/dL POC Glucose (mg/dL) 119 H 124 H 144 H (75-99) mg/dL Total Protein (6.3-8.2) g/dL Albumin (3.5-5.0) g/dL 09/01/18 09/02/18 09/02/18 Range/Units 23:24 06:44 06:44 RBC 3.27 L (4.30-5.90) m/uL Hgb 9.6 L (13.0-17.5) gm/dL Hct 30.8 L (39.0-53.0) % RDW 17.4 H (11.5-15.5) % Carbon Dioxide 31 H (22-30) mmol/L BUN 37 H (9-20) mg/dL Creatinine 1.48 H (0.66-1.25) mg/dL Glucose 105 H (74-99) mg/dL POC Glucose (mg/dL) 157 H (75-99) mg/dL Total Protein 5.6 L (6.3-8.2) g/dL Albumin 2.9 L (3.5-5.0) g/dL - Imaging and Cardiology Chest x-ray: report reviewed, image reviewed Assessment and Plan (1) NSTEMI (non-ST elevated myocardial infarction) Current Visit: Yes Status: Acute Code(s): I21.4 - NON-ST ELEVATION (NSTEMI) MYOCARDIAL INFARCTION SNOMED Code(s): 779505649 (2) CAD (coronary artery disease) Current Visit: Yes Status: Chronic Code(s): I25.10 - ATHSCL HEART DISEASE OF [place] CORONARY ARTERY W/O ANG PCTRS SNOMED Code(s): 75207404 (3) COPD (chronic obstructive pulmonary disease) Current Visit: Yes Status: Chronic Code(s): J44.9 - CHRONIC OBSTRUCTIVE PULMONARY DISEASE, UNSPECIFIED SNOMED Code(s): 62433141 (4) History of nephrectomy Current Visit: Yes Status: Chronic Code(s): Z90.5 - ACQUIRED ABSENCE OF KIDNEY SNOMED Code(s): 51598963441528 (5) History of prostate cancer Current Visit: Yes Status: Chronic Code(s): Z85.46 - PERSONAL HISTORY OF MALIGNANT NEOPLASM OF PROSTATE SNOMED Code(s): 663441538 (6) Hyperlipidemia Current Visit: Yes Status: Chronic Code(s): E78.5 - HYPERLIPIDEMIA, UNSPECIFIED SNOMED Code(s): 81104140 (7) Hypertension Current Visit: Yes Status: Chronic Code(s): I10 - ESSENTIAL (PRIMARY) HYPERTENSION SNOMED Code(s): 59023652 (8) Insulin dependent diabetes mellitus Current Visit: Yes Status: Chronic Code(s): E11.9 - TYPE 2 DIABETES MELLITUS WITHOUT COMPLICATIONS; Z79.4 - LONGTERM (CURRENT) USE OF INSULIN SNOMED Code(s): 28069507 (9) Left main coronary artery disease Current Visit: Yes Status: Chronic Code(s): I25.10 - ATHSCL HEART DISEASE OF [place] CORONARY ARTERY W/O ANG PCTRS SNOMED Code(s): 391213369 (10) Tobacco dependence in remission Current Visit: No Status: Resolved Code(s): F17.201 - NICOTINE DEPENDENCE, UNSPECIFIED, IN REMISSION SNOMED Code(s): 018664186 Plan: 1. Continue aspirin, statin, Plavix and beta laurie. Will increase beta laurie therapy as tolerated. 2. Continue amiodarone 400 mg by mouth twice a day for atrial fibrillation prophylaxis. 3. Encourage use of his incentive spirometry every hour while awake. 4. Increase activity as tolerated. PT/OT/cardiac rehab following. 6. Wean oxygen as tolerated. Recommendations per pulmonary management. 7. Continue Lasix 20 mg IV every 12 hours managed by nephrology. 7. Bronchodilators per pulmonology. 8. Insulin per primary care service. 7. Will monitor daily labs and x-rays. 9. GI prophylaxis with Protonix. DVT prophylaxis with subcu heparin, SCDs. 10. Pain control with current medication regimen. Discontinue [place]. 11. Continue Flomax for BPH. 12. Discharge planning in place, anticipate upon discharge he will need a subacute rehab facility for further rehabilitation needs. 13. More recommendations to follow based on patient's clinical course. Time with Patient: Greater than 30
[2018-09-02] MEDS: CLOPIDOGREL 75 MG TAB PO SCH (10:31)
[2018-09-02] MEDS: QUEtiapine 50 MG TAB PO SCH ×2 (10:31→21:46)
[2018-09-02] MEDS: METOPROLOL TARTRATE 12.5 MG TAB PO SCH ×2 (10:31→21:46)
[2018-09-02] MEDS: TAMSULOSIN 0.4 MG CAP.ER.24H PO SCH ×2 (10:31→21:46)
[2018-09-02] MEDS: ASPIRIN 325 MG TAB PO SCH (10:31)
[2018-09-02] MEDS: ATORVASTATIN 40 MG TAB PO SCH (10:31)
[2018-09-02] MEDS: HEPARIN SODIUM,PORCINE 5,000 UNIT/ML 1 ML VIAL SQ SCH ×3 (10:32→23:02)
[2018-09-02] MEDS: AMIODARONE 200 MG TAB PO SCH ×2 (10:32→21:45)
[2018-09-02] MEDS: FUROSEMIDE 10 MG/ML 2 ML VIAL IV SCH ×2 (10:33→21:45)
--- NOTE | 2018-09-02 10:33 | P.PN ---
Subjective Progress Note Date: 09/02/18 This is a 73-year-old male, patient of [facility]. He has a known past medical history of hypertension, diabetes mellitus, COPD, right nephrectomy 1970 and former smoker. Patient presents to the emergency room with complaints of chest pain with pressure and heaviness and diaphoresis. Symptoms had started yesterday. Patient was diagnosed with a non-ST elevated HI. Initial troponin 0.128 then 11.6 and 11.8. Patient was started on IV heparin cardiology was consulted. And patient underwent heart catheterization today. The heart catheterization shows total occlusion of the right coronary artery. Left main is 70-75% stenosed. The left anterior descending coronary artery has a mid lesion of 70% with thrombus. Obtuse marginal had 80-85% stenosis. Cardiology is recommending open-heart surgery. That her surgery has been consulted. They have already evaluated patient and surgery we'll possibly be on Friday. Pulmonary service has also been consulted. Patient is receiving IV fluids. He was slightly dehydrated on admission creatinine was 1.44. Unclear baseline creatinine. Creatinine in March 2018 was 1.3. Patient currently is chest pain-free. He reports that symptoms started after eating spicy soup and when he came back home he belched a large amount of gas and is relieved the pressure. He has been chest pain-free. Cardiology has placed him on IV heparin and Aggrastat. On 08/15/2018 patient was seen and examined he is alert and oriented 3 in no apparent distress he is sitting at the edge of the bed and he denies any chest pain there is no shortness of breath at rest he has occasional cough no palpitation no nausea or vomiting no abdominal pain no diarrhea no constipation no burning with urination no frequency or urgency and no hematuria. On 08/16/2018 patient was seen and examined on the telemetry floor he is alert and oriented 3 in no distress he denies any new episodes of chest pain he denies any other symptoms there is no fever or chills no headache or dizziness no shortness of breath no cough no nausea or vomiting no abdominal pain no diarrhea no burning was urination no frequency or urgency and no hematuria On 08/17/2018 Patient had coronary artery bypass graft [address] Hannah today. Patient currently intubated and on sedation. Patient remains in the intensive care unit. Patient currently on levophed for pressure support. On 08/18/2018 patient is currently postop day 1 and coronary artery bypass graft surgery. Patient is currently up in chair. Patient was extubated throughout night. Precedex drip has been DC'd per cardiovascular team. Patient remains sleepy but alert and arousable. At this time patient denies shortness of breath. Denies nausea vomiting or diarrhea. Denies any urinary burning. On 08/19/2018 patient is currently postop day 2 from coronary artery bypass graft. Per nursing staff patient is confused. Patient is also requiring BiPAP to maintain adequate oxygenation. Discussed case with Luna from the cardiovascular surgical team. Patient remains on Precedex drip. safety sitting at bedside. On 08/20/2018 patient is currently postop day 2 from coronary artery bypass graft. Patient remains on BiPAP for adequate oxygen. Precedex drip has been DC 'd. Patient does seem more alert. Patient followed closely by cardiovascular surgical team and critical care On 08/21/2018 patient got reintubated last night due to agitation and hypoxia. Patient is currently on propofol for sedation. Patient also started on Levophed for pressure support. Critical care team following closely. On 08/22/2018 patient got reintubated due to agitation and hypoxia. Patient is currently on propofol for sedation. Patient also started on Levophed for pressure support. Critical care team following closely. On 08/23/2018 patient is intubated sedated maintained on mechanical ventilation , he had a sedation holiday for about 1 hour at that time he was following commands. At this time he is back on sedation urine output is adequate. Hemoglobin is down to 7.2 On 08/24/2018 patient remains intubated on mechanical ventilation in the intensive care unit. Per nursing staff patient becomes agitated during sedation holidays. Hemoglobin decreasing to 7.1. Sedation holiday will be attempted again today. On 08/25/2018 patient recently extubated this a.m. Patient currently on BiPAP. Patient remains on Precedex drip. Patient is responsive to name. Patient having elevated temps at 101.3. Urine and blood cultures have been ordered per surgical vascular team. Bronchoscopy washing cultures showing no organisms at this time. On 08/26/2018 patient remains extubated on BiPAP. Patient is responsive to name in follow some commands. Long acting insulin increased to 20 units daily. Urine and blood cultures pending. Patient still having low-grade temps 100.4. On 08/27/2018 patient currently on BiPAP. Patient did have episode of A. fib with RVR throughout night. Patient currently on amiodarone drip per cardiovascular surgery. Swallow jayda will be assessed today. At this time patient is awake and alert. On 08/28/2018 she currently remains on BiPAP. Per nursing staff patient is only able to tolerate being off BiPAP temporarily due to increased respiratory rate. Patient is eating. Patient is awake and alert. Patient remains in the intensive care unit On 08/29/2018 patient was seen and examined in ICU he is alert and oriented in no apparent distress he is maintained on oxygen via nasal cannula and is tolerating well he denies any chest pain at this time there is no fever or chills there is occasional cough no shortness of breath at rest no nausea or vomiting no abdominal pain he had 2 episodes of loose stools there is no urinary symptoms. On 08/30/2018 patient is alert and oriented in no distress he was seen and examined in the intensive care unit, he denies any chest pain or shortness of breath is lying comment to bleeding in bed there is no fever or chills no headache or dizziness no nausea or vomiting no abdominal pain no diarrhea and no urinary symptoms. Nurse is reporting that patient has urinary retention he is able to urinate but he is requiring straight cath occasionally. On 08/31/2018 patient remains in the intensive care unit. Patient looks much improved. Patient is awake and alert. Patient is currently on high flow 10 L. At this time patient denies chest pain. Patient denies any nausea vomiting or diarrhea. On 09/01/2018 patient is alert and oriented. Patient is currently on high flow 8 L high flow. Per nursing staff patient to be transferred out of intensive care unit today to selective care. At this time patient denies chest pain or shortness of breath. Denies nausea vomiting or diarrhea. Denies any urinary burning or frequency On 09/02/2018 Patient has been moved out of the intensive care unit to selective care. Patient is alert and oriented and currently sitting up in chair. Patient is down to 5 L nasal cannula at this time patient denies chest pain or shortness of breath. Patient denies nausea vomiting or diarrhea. Patient denies any urinary burning or frequency. Objective - Vital Signs Vital signs: Vital Signs Temp 99.6 F 09/02/18 08:00 Pulse 78 09/02/18 09:29 Resp 18 10/03/18 08:00 BP 111/61 09/02/18 08:00 Pulse Ox 92 L 09/02/18 08:00 Intake & Output 09/01/18 09/02/18 09/02/18 18:59 06:59 18:59 Intake Total 342 10 240 Output Total 150 700 Balance 192 -690 240 Weight 104.8 kg Intake: IV 10 Invasive Line 1 10 Oral 342 240 Output: Urine 150 700 Uretheral ([place]) 700 Other: Voiding Method Incontinent Diaper Incontinent # Voids 0 2 # Bowel Movements 1 ABP, PAP, CO, CI - Last Documented Arterial Blood Pressure 130/57 Pulmonary Artery Pressure 40/20 Cardiac Output 6.7 Cardiac Index 3.3 - Exam Head normocephalic Neck supple Lungs Breath sounds diminished bilaterally Heart regular rate and rhythm S1-S2, no rub or gallop Abdomen is soft nontender nondistended positive bowel sounds no hepatosplenomegaly Extremities no edema Neuro patient is following some commands and responds to name - Labs CBC & Chem 7: 09/02/18 06:44 09/02/18 06:44 Labs: Abnormal Lab Results - Last 24 Hours (Table) 09/01/18 09/01/18 09/01/18 Range/Units 11:27 16:21 20:22 RBC (4.30-5.90) m/uL Hgb (13.0-17.5) gm/dL Hct (39.0-53.0) % RDW (11.5-15.5) % Carbon Dioxide (22-30) mmol/L BUN (9-20) mg/dL Creatinine (0.66-1.25) mg/dL Glucose (74-99) mg/dL POC Glucose (mg/dL) 119 H 124 H 144 H (75-99) mg/dL Total Protein (6.3-8.2) g/dL Albumin (3.5-5.0) g/dL 09/01/18 09/02/18 09/02/18 Range/Units 23:24 06:44 06:44 RBC 3.27 L (4.30-5.90) m/uL Hgb 9.6 L (13.0-17.5) gm/dL Hct 30.8 L (39.0-53.0) % RDW 17.4 H (11.5-15.5) % Carbon Dioxide 31 H (22-30) mmol/L BUN 37 H (9-20) mg/dL Creatinine 1.48 H (0.66-1.25) mg/dL Glucose 105 H (74-99) mg/dL POC Glucose (mg/dL) 157 H (75-99) mg/dL Total Protein 5.6 L (6.3-8.2) g/dL Albumin 2.9 L (3.5-5.0) g/dL 09/02/18 Range/Units 08:52 RBC (4.30-5.90) m/uL Hgb (13.0-17.5) gm/dL Hct (39.0-53.0) % RDW (11.5-15.5) % Carbon Dioxide (22-30) mmol/L BUN (9-20) mg/dL Creatinine (0.66-1.25) mg/dL Glucose (74-99) mg/dL POC Glucose (mg/dL) 159 H (75-99) mg/dL Total Protein (6.3-8.2) g/dL Albumin (3.5-5.0) g/dL Assessment and Plan Assessment: 1. Status post coronary artery bypass graft [address] Hannah postop day 16. The CHAHAL to LAD, SVG to PDA and Circ. Patient currently intubated and on sedation. Cardiovascular team and critical care team following closely. Patient currently up in chair. Patient has been extubated throughout night. hemoglobin 7.9. Discussed case with Luna per cardiovascular surgical team 2-D echo has been ordered due to diminished heart sounds. Hemoglobin 7.3. On 08/20 Patieht required reintubation due to extreme agitation and hypoxia. 2. Acute respiratory failure. Patient required reintubation last night 08/20. Chest x-ray completed showing right pleural effusion and bilateral lower lobe pulmonary infiltrates. There is probably mild heart failure. Endotracheal tube is in good position. Heart and lungs appear unchanged. Chest ultrasound completed showing small to tiny bilateral pleural effusions. Per pulmompleted showing cardiomegaly nary team No thoracentesis at this time. Status post bronchoscopy on 08/21/2018. Suspect right lower lobe collapse. Critical care and pulmonary services following closely. bronchial cultures pending. 08/25 patient extubated to BiPAP. 08/31 chest x-ray showing right lower lobe atelectasis and/or infiltrate and to lesser external left lower lobe atelectasis. Small effusions are present. Patient currently on 5 L high flow nasal cannula. Patient remains on Lasix 20 mg IV every 12 hours managed by nephrology 3. Acute Non-ST elevated myocardial infarction: Heart catheterization showing multivessel coronary artery disease with thrombus in the LAD. Patient has been seen by vascular surgery and planning for open heart surgery on Friday. Continue IV heparin and Aggrastat per cardiology. Continue with IV fluids. Pulmonary service also consulted for preop clearance. 4. Acute kidney injury: Unclear patient has chronic kidney disease. Creatinine in March 2018 was 1.3. Continue with IV fluid hydration. Creatinine 1.42. Continue to monitor closely. Creatinine continued to increase to 1.60. Discussed case with Luna gardner from cardiovascular surgery will continue to monitor closely at this point. Creatinine improving to 1.40 and bun 41. Nephrology following. Creatinine 1.59 and bun 54. Patient currently on D5W and Lasix 20 mg every 12 per nephrology 5. Essential hypertension 6. Diabetes mellitus insulin-dependent. Hemoglobin A1c 7.9. Patient on sliding scale insulin. Lantus 10 units has been added. 08/27 Lantus has been increased to 25 units. Patient did pass followed swallow eval and now tolerating diet. Blood sugars are improving. 7. History of COPD: No evidence of exacerbation. continue albuterol nebulizer as needed 8. BPH continue Flomax 9. Atelectasis noted on chest x-ray order incentive spirometer 10. Obesity BMI 39.4 kg 11. Possible acute ICU psychosis and delirium. Patient remains on Precedex. Critical care team following closely. On 08/20 patient required reintubation. patient extubated. 12. Expected acute blood loss anemia secondary to surgery. Hemoglobin 6.8. Cardiovascular surgery following closely. We'll continue to monitor closely. HemoGlobin 9.6 13. Elevated temperature. Patient febrile with 11.3. WBC improving to 9.9. Blood and urine culture negative 14. Postoperative atrial fibrillation, and expected outcome. Patient currently on amiodarone 15. Elevated liver enzymes. AST 85 and ALT 84. 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 Resolved 16. Urinary retention. Orders per cardiovascular surgery to BladderScan for post for residual every 6 hours, May straight cath for greater than 300ml. Continue Flomax DVT prophylaxis heparin and GI prophylaxis Protonix I performed an examination of the patient and discussed their management with the Nurse Practitioner. I have reviewed the Nurse Practitioner's notes and agree with the documented findings and plan of care
[2018-09-02] MEDS: ACETAMINOPHEN TAB 325 MG TAB PO PRN ×2 (10:43→21:47)
--- NOTE | 2018-09-02 11:07 | CDI ---
Documentation Clarification Form Date: 09/02/2018 CDS: Jania HaneyMckeonERICA, CCDS Admit Date: 08/13/2018 Patient Name: Cristo Perez Discharge Date: ATTENTION: The Clinical Documentation Specialists (CDI) and [facility] Coding Staff appreciate your assistance in clarifying documentation. Please respond to the clarification below the line at the bottom and electronically sign. The CDI & [facility] Coding staff will review the response and follow-up if needed. Please note: Queries are made part of the Legal Health Record. If you have any questions, please contact the author of this message via ITS. Dr. Mirna Matos MD: Patient was admitted on 08/13 with chest pain, diagnosed with a NSTEMI and is status post CABG x3. History/Risk Factors: COPD, Hypertension, DM II, right nephrectomy, former smoker. Clinical Indicators: Per the History & Physical, the patient was also diagnosed with KAVITHA, unclear if CKD. Documented Creatinine in March: 1.3. Per the nephrology consult on 08/21: CKD: Unknown baseline creatinine. 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 BUN: 31 - 21 - 69 , currently 37 Creatinine: 1.44 - 1.26 - 1.85, currently 1.48 Treatment: IV Heparin drip started on admission. IV fluids. CABG on 08/17, IV Albumin x6 500 mL, IV Cefazolin w/IV fluid boluses x2, IV Dextrose/MagSulfate, IV Insulin In order to capture the severity of condition, please clarify if the condition signifies: CKD Stage 1 (GFR > 90) CKD Stage 2 (GFR 60-89) CKD Stage 3 (GFR 30-59) CKD Stage 4 (GFR 15-29) CKD Stage 5 (GFR <15) Other, please specify Unable to determine stage 3 MTDD
[2018-09-02 11:34] LABS: Glucose,Whole Blood 161 mg/dL (75-99)
--- NOTE | 2018-09-02 12:19 | P.PN ---
Subjective Progress Note Date: 09/02/18 This is a 73-year-old gentleman who underwent three-vessel coronary bypass grafting surgery. He presented to the hospital with a non-ST elevation myocardial infarction, patient hasn't impaired LV function of 20-25%, hypertension, hyperlipidemia, diabetes, mild COPD, obesity, prostate cancer with previous radiation therapy and prior right nephrectomy. He was seen and examined on the telemetry unit this morning, sitting up in the chair at bedside. Blood pressure this morning 110/60 with a heart rate in the 70s, ID 2 % on 5 L of oxygen. White blood cell count 8.2, hemoglobin 9.6, platelet count 241. Sodium 139, potassium 4.4, BUN 37, creatinine 1.4. Reaching 1999 on his incentive spirometry this morning. Objective - Vital Signs Vital signs: Vital Signs Temp 99.6 F 09/02/18 08:00 Pulse 78 09/02/18 09:29 Resp 18 09/02/18 08:00 BP 111/61 09/02/18 08:00 Pulse Ox 92 L 09/02/18 08:00 Intake & Output 09/01/18 09/02/18 09/02/18 18:59 06:59 18:59 Intake Total 342 10 240 Output Total 150 700 500 Balance 192 -690 -260 Weight 104.8 kg Intake: IV 10 Invasive Line 1 10 Oral 342 240 Output: Urine 150 700 500 Uretheral ([place]) 700 Other: Voiding Method Incontinent Diaper Incontinent # Voids 0 2 # Bowel Movements 1 ABP, PAP, CO, CI - Last Documented Arterial Blood Pressure 130/57 Pulmonary Artery Pressure 40/20 Cardiac Output 6.7 Cardiac Index 3.3 - Exam PHYSICAL EXAMINATION: GENERAL: 73-year-old gentleman in no acute distress at the time of my examination. HEENT: Head is atraumatic, normocephalic. Pupils equal, round. Sclera anicteric. Conjunctiva are clear. Mucous membranes of the mouth are moist. Neck is supple. There is no elevated jugular venous pressure.No carotid bruit is heard. HEART EXAMINATION: Heart S1-S2 normal, no A. fib noted on the monitor. A/V epicardial pacer wires present, connected to generator, AAI mode with backup rate 45. Heart hugger in place. CHEST EXAMINATION: Lungs are clear with diminished air entry to bilateral bases , fine expiratory wheezing also noted. BDOMEN: [ Soft, nontender. Bowel sounds are heard. No organomegly noted]. EXTREMITIES:[ 2+ peripheral pulses with trace evidence of peripheral edema bilateral MARCELLE hose and SCDs. EUROLOGIC [patient is awake, alert and orinted X3.] . - Labs CBC & Chem 7: 09/02/18 06:44 09/02/18 06:44 Labs: Abnormal Lab Results - Last 24 Hours (Table) 09/01/18 09/01/18 09/01/18 Range/Units 16:21 20:22 23:24 RBC (4.30-5.90) m/uL Hgb (13.0-17.5) gm/dL Hct (39.0-53.0) % RDW (11.5-15.5) % Carbon Dioxide (22-30) mmol/L BUN (9-20) mg/dL Creatinine (0.66-1.25) mg/dL Glucose (74-99) mg/dL POC Glucose (mg/dL) 124 H 144 H 157 H (75-99) mg/dL Total Protein (6.3-8.2) g/dL Albumin (3.5-5.0) g/dL 09/02/18 09/02/18 09/02/18 Range/Units 06:44 06:44 08:52 RBC 3.27 L (4.30-5.90) m/uL Hgb 9.6 L (13.0-17.5) gm/dL Hct 30.8 L (39.0-53.0) % RDW 17.4 H (11.5-15.5) % Carbon Dioxide 31 H (22-30) mmol/L BUN 37 H (9-20) mg/dL Creatinine 1.48 H (0.66-1.25) mg/dL Glucose 105 H (74-99) mg/dL POC Glucose (mg/dL) 159 H (75-99) mg/dL Total Protein 5.6 L (6.3-8.2) g/dL Albumin 2.9 L (3.5-5.0) g/dL 09/02/18 Range/Units 11:17 RBC (4.30-5.90) m/uL Hgb (13.0-17.5) gm/dL Hct (39.0-53.0) % RDW (11.5-15.5) % Carbon Dioxide (22-30) mmol/L BUN (9-20) mg/dL Creatinine (0.66-1.25) mg/dL Glucose (74-99) mg/dL POC Glucose (mg/dL) 161 H (75-99) mg/dL Total Protein (6.3-8.2) g/dL Albumin (3.5-5.0) g/dL Assessment and Plan Plan: Assessment and plan #1 non-ST elevation myocardial infarction, status post 3 vessel coronary artery bypass grafting surgery #2 hypertension #3 diabetes #4 history of smoking #5 COPD #6 mild renal insufficiency, s/p right nephrectomy Plan From cardiology's perspective, we'll continue patient on current medications. He has been encouraged regarding the continued use of his incentive spirometry. Overall progressing well. DNP note has been reviewed, I agree with a documented findings and plan of care. Patient was seen and examined.
--- NOTE | 2018-09-02 15:07 | P.PN ---
Subjective Progress Note Date: 09/02/18 On 08/31/2018, the patient is postop day #14 following coronary artery bypass surgery with three-vessel bypass. Note that the preoperatively, the patient had a non-ST elevation myocardial infarction and the patient had an impaired LV function with an ejection fraction of 20-25%. Other comorbidities include hypertension, hyperlipidemia, insulin-dependent diabetes mellitus, mild COPD, obesity, prostate cancer with previous radiation therapy, previous right nephrectomy and BPH On today's evaluation the patient is awake and alert. His chest x-ray showing elevation of the right hemidiaphragm with small amount of right-sided pleural effusion. Is still on oxygen and he is requiring higher flow. We'll wean down to 6 L of oxygen by nasal cannula and his saturation was 95%. He is using incentive spirometer. Sternum stable clean and intact. No significant cough or sputum production. Hemodynamically stable. No pleurisy or hemoptysis. The white cell count is at 9.4. Renal function is stable and the patient's creatinine is gradually improving is down to 1.5. White cell count is not elevated at 9.4. Mental status is good and appropriate. The patient is weak and has difficulties with mobility. The results of the bronchioloalveolar lavage showed no microbial growth and the patient is doing extremely well at this point in time his FiO2 has been gradually wean down to as low as 6 L per minute nasal cannula. His cardiac rhythm is sinus. On 09/01/2018, the patient is doing well. No specific complaints. Still on 6 L of oxygen by nasal cannula. Chest x-ray shows no major interval change. The patient is being diuresis with Lasix 20 mg IV push every 12 hours. His chest x- ray is still stable. The patient is doing well. Using incentive spirometer. Receiving also chest PT. Renal function is stable at creatinine of 1.5. The patient's sternum stable clean and intact. No leukocytosis. No nausea. No vomiting. No diarrhea. Cardiac rhythm is sinus for now. He is on amiodarone 400 mg by mouth twice a day. He is not receiving any anticoagulation. He is not sterilizing his BiPAP overnight. He is on Levemir insulin 25 units daily along with ascites care coverage. On 09/02/2018 and seeing this patient for a follow-up. The patient got moved out of the intensive care unit yesterday. The patient is feeling better. The patient is less short of breath. The patient is feeling better and the patient is currently on 3 L about 2 by nasal cannula. Chest x-ray today showing still persistent elevation of the right hemidiaphragm and volume loss in the right with small right-sided pleural effusion. Sternum stable clean and intact. The patient is hemodynamically stable. No other significant events overnight. Note that the patient's preop evidence to ejection fraction was around 20-25%. His current hemoglobin is at 9.6. Renal function continues to gradually improve in the creatinine is down to 1.48. Objective - Vital Signs Vital signs: Vital Signs Temp 100.0 F H 09/02/18 12:00 Pulse 82 09/02/18 13:15 Resp 20 09/02/18 12:00 BP 131/64 09/02/18 12:00 Pulse Ox 94 L 09/02/18 12:00 Intake & Output 09/01/18 09/02/18 09/02/18 18:59 06:59 18:59 Intake Total 342 10 240 Output Total 150 700 500 Balance 192 -690 -260 Weight 104.8 kg Intake: IV 10 Invasive Line 1 10 Oral 342 240 Output: Urine 150 700 500 Uretheral (Suero) 700 Other: Voiding Method Incontinent Diaper Diaper Incontinent Incontinent # Voids 0 2 # Bowel Movements 1 ABP, PAP, CO, CI - Last Documented Arterial Blood Pressure 130/57 Pulmonary Artery Pressure 40/20 Cardiac Output 6.7 Cardiac Index 3.3 - Exam - Constitutional General appearance: Present: cooperative, no acute distress, obese - Respiratory Details: Lungs sounds diminished bilaterally, right greater than left, expiratory wheezes present. Respirations even, nonlabored. No stridor present. Currently on 6 L of oxygen by nasal cannula. Able to achieve 500 mL on his incentive spirometry. Effective cough with productive yellow brown sputum. The breath sounds are diminished in the right lung base and there is dullness to percussion related to underlying fluids/atelectasis. - Cardiovascular Details: S1, S2 present. Regular rate and rhythm, sinus rhythm on telemetry. A/V epicardial pacemaker wires present, connected to generator, AAI mode with backup rate 45 bpm. Palpable peripheral pulses bilaterally. Trace generalized edema present. No calf pain or tenderness noted. Right radial arterial line present. Heart hugger, antiembolism stockings, SCDs present. - Gastrointestinal Gastrointestinal Comment(s): Abdomen soft, nontender, nondistended. Active bowel sounds present 4 quadrants. Positive bowel movement 08/30. Tolerating diet. - Genitourinary Genitourinary Comment(s): Condom catheter remains in place. Patient continues to void clear, yellow urine , output 50-200 mL/h overnight, 825 mL in the last 8 hours. - Integumentary Integumentary Comment(s): Skin is warm and dry with evidence of good perfusion. Anterior chest incision well approximated and covered with dry intact dressing. Left lower extremity EVH site well approximated, ecchymosis present, expected. - Neurologic Neurologic: Present: CNII-XII intact - Musculoskeletal Musculoskeletal: Present: generalized weakness, strength equal bilaterally - Psychiatric Psychiatric: Present: A&O x's 3, appropriate affect, intact judgment & insight - Labs CBC & Chem 7: 09/02/18 06:44 09/02/18 06:44 Labs: Abnormal Lab Results - Last 24 Hours (Table) 09/01/18 09/01/18 09/01/18 Range/Units 16:21 20:22 23:24 RBC (4.30-5.90) m/uL Hgb (13.0-17.5) gm/dL Hct (39.0-53.0) % RDW (11.5-15.5) % Carbon Dioxide (22-30) mmol/L BUN (9-20) mg/dL Creatinine (0.66-1.25) mg/dL Glucose (74-99) mg/dL POC Glucose (mg/dL) 124 H 144 H 157 H (75-99) mg/dL Total Protein (6.3-8.2) g/dL Albumin (3.5-5.0) g/dL 09/02/18 09/02/18 09/02/18 Range/Units 06:44 06:44 08:52 RBC 3.27 L (4.30-5.90) m/uL Hgb 9.6 L (13.0-17.5) gm/dL Hct 30.8 L (39.0-53.0) % RDW 17.4 H (11.5-15.5) % Carbon Dioxide 31 H (22-30) mmol/L BUN 37 H (9-20) mg/dL Creatinine 1.48 H (0.66-1.25) mg/dL Glucose 105 H (74-99) mg/dL POC Glucose (mg/dL) 159 H (75-99) mg/dL Total Protein 5.6 L (6.3-8.2) g/dL Albumin 2.9 L (3.5-5.0) g/dL 09/02/18 Range/Units 11:17 RBC (4.30-5.90) m/uL Hgb (13.0-17.5) gm/dL Hct (39.0-53.0) % RDW (11.5-15.5) % Carbon Dioxide (22-30) mmol/L BUN (9-20) mg/dL Creatinine (0.66-1.25) mg/dL Glucose (74-99) mg/dL POC Glucose (mg/dL) 161 H (75-99) mg/dL Total Protein (6.3-8.2) g/dL Albumin (3.5-5.0) g/dL Assessment and Plan Plan: #1. Multivessel coronary artery disease status post three-vessel bypass surgery. The patient had a 70% left main, 70% LAD and 85% obtuse marginal and he underwent three-vessel bypass surgery. Today's postop day #13. He is also post acute non-ST segment elevation myocardial infarction. #2. Acute hypoxic respiratory failure post thoracotomy and bypass surgery. His and expected outcome of surgery. The right hemidiaphragm is elevated and his atelectatic and there is also some limited right-sided pleural effusion. Underlying pneumonia is doubtful and the results of the bronchial lavage has been negative. Oxygenation in general is improving and the patient is currently on 3 L about 2 by nasal cannula #3. Diabetes mellitus type 2, insulin-dependent #4. COPD, not on home oxygen, currently stable, based on FEV1 is around 87% of predicted #5. Obesity #6. History of right nephrectomy, and history of CKD, and acute kidney injury is improving and the creatinine is down to 1.48 #7. History of nicotine dependence, in remission. Patient quit smoking 45 years ago, but prior to that smoked up to 3 packs a day for 30 years #8. Hypertension #9. History of BPH, on Flomax #10 acute anemia, following bypass surgery, and expected outcome of coronary artery bypass surgery, hemoglobin is stable. #11 generalized debility and weakness #12 paroxysmal atrial fibrillation, post thoracotomy and current rhythm is sinus. The patient is on amiodarone for prophylaxis. Plan: Continue using incentive spirometer. Increase activity. Lasix 20 mg every 12 hours. Monitor renal function. Bronchodilators. Aggressive pulmonary toileting. Used a combination of aspirin, Plavix, statins and beta blockers. The patient is also on amiodarone. His cardiac rhythm is sinus. We'll continue to follow. He is down to 3 L of oxygen by nasal cannula.
[2018-09-02 16:41] LABS: Glucose,Whole Blood 109 mg/dL (75-99)
--- NOTE | 2018-09-02 19:26 | PN ---
PROGRESS NOTE The patient is seen for followup for acute kidney injury. His renal function continues to improve. The patient is maintained on small dose of IV Lasix. He denies any chest pains or shortness of breath. PHYSICAL EXAMINATION: Blood pressure was 130/63, heart rate is 72 per minute. He is afebrile. Examination of the heart S1, S2. Examination of the lungs bilateral breath sounds are heard. Abdomen is soft, obese. Examination lower extremities shows edema 1+ bilaterally. PRICING CLERK exam is grossly intact. LABS: Show sodium 139 from today, potassium 4.4, BUN 37, serum creatinine 1.48, albumin 2.9. ASSESSMENT: 1. Acute kidney injury, currently improving. Continue with Lasix. 2. Status post coronary artery bypass surgery. 3. Hypertension currently controlled. 4. Mild hypervolemia, maintained on small dose of IV Lasix which we can continue. 5. Chronic kidney disease. Baseline not known. Patient has a solitary kidney. 6. History of benign prostatic hypertrophy, maintained on Flomax. PLAN: Repeat labs in a.m. Continue current dose of Lasix. Encourage increased activity. MMODL / IJN: [id number] /
[2018-09-02 21:01] LABS: Glucose,Whole Blood 166 mg/dL (75-99)
[2018-09-02] MEDS: INSULIN DETEMIR 100 UNIT/ML 10 ML VIAL SQ SCH (21:46)
[2018-09-02] MEDS: SENNOSIDES-DOCUSATE SODIUM 1 EACH TAB PO SCH (21:46)
[2018-09-03] MEDS: ACETAMINOPHEN TAB 325 MG TAB PO PRN (04:25)
[2018-09-03 04:45] VITALS: RESP 20
[2018-09-03 06:09] LABS: Glucose,Whole Blood 104 mg/dL (75-99)
[2018-09-03] MEDS: PANTOPRAZOLE SODIUM 40 MG GRANULE PKT PO SCH (06:10)
[2018-09-03] MEDS: INSULIN ASPART 100 UNIT/ML 1 ML 10 ML VIAL SQ SCH ×2 (06:12→14:08)
[2018-09-03 06:32] LABS: Anisocytosis Slight; HCT 30.7 % (39.0-53.0); HGB 9.7 gm/dL (13.0-17.5); Hypochromasia Moderate; MCH 29.3 pg (25.0-35.0); MCHC 31.4 g/dL (31.0-37.0); MCV 93.2 fL (80.0-100.0); Mean Platelet Volume 7.7; Platelet Count 234 k/uL (150-450); RDW 17.6 % (11.5-15.5); WBC 8.5 k/uL (3.8-10.6)
[2018-09-03 07:15] LABS: Calcium 8.7 mg/dL (8.4-10.2); Potassium 4.5 mmol/L (3.5-5.1); Total Protein 5.8 g/dL (6.3-8.2)
[2018-09-03] MEDS: IPRATROPIUM-ALBUTEROL 3 ML NEB INHALATION SCH ×2 (07:19→13:11)
--- NOTE | 2018-09-03 07:27 | XR ---
EXAMINATION TYPE: XR chest 1V portable DATE OF EXAM: 09/03/2018 COMPARISON: 09/02/2018 INDICATION: Post cardiac surgery TECHNIQUE: Single frontal view of the chest is obtained. FINDINGS: The heart size is normal. The pulmonary vasculature is normal. Subtle infiltrate may be along the left diaphragm. Correlate for atelectasis. There is elevation of t he right diaphragm which appears chronic. Suspicious peripheral consolidation is not evident. Sternot tamar wires are present. IMPRESSION: 1. Suggestion of minimal subsegmental atelectasis left diaphragm.
--- NOTE | 2018-09-03 08:21 | P.PN ---
Subjective Progress Note Date: 09/03/18 Principal diagnosis: Non-elevated myocardial infarction this admission, symptomatic multivessel coronary artery disease, preoperative impaired left ventricular systolic function with an ejection fraction of 20-25%, hypertension, insulin-dependent diabetes mellitus with a preoperative hemoglobin A1c of 7.1%, COPD with a FEV1 of 87% of predicted, history of nicotine dependence quit smoking in 1979, history of prostate cancer with radiation more than 20 years ago, BPH, obesity with a BMI of 39.4, history of right nephrectomy in 1969, baseline admission creatinine 1.44 and hyperlipidemia. POD #17 urgent coronary artery bypass grafting 3 vessels, left internal mammary artery to left anterior descending coronary artery, a reverse greater saphenous vein graft to obtuse marginal coronary artery, a reverse greater saphenous vein graft to posterior descending coronary artery, endoscopic vein harvest of the left greater saphenous vein, epi-aortic ultrasound, intraoperative transesophageal echocardiogram, closure of sternum using titanium plates and Madison cable system. POD #13 bronchoscopy, bronchoalveolar lavage of the right middle lobe, right lower lobe and washings of both lungs performed by Dr. Almodovar from pulmonary medicine. Postoperative right lower lobe collapse, secondary to mucous plugging, an unexpected outcome. Postoperative delirium, an unexpected outcome. Postoperative acute respiratory distress requiring reintubation, and prolonged mechanical ventilation, an unexpected outcome. Postoperative acute blood loss anemia, an expected outcome of surgery due to cardiopulmonary bypass and hemodilution. Postoperative paroxysmal atrial fibrillation, an unexpected but potential outcome of surgery. Postoperative urinary retention, an unexpected outcome. Patient is currently sitting up to the bedside chair. He is in no acute distress. He reports his cough has improved today. Denies any complaints of pain or shortness of breath at this time. Currently on 2 L nasal cannula with oxygen saturations 94%. He is achieving 1250 mL on his incentive spirometry with encouragement. A Suero catheter was placed yesterday as he had several bladder scans completed with postvoid residuals greater than 700. Objective - Vital Signs Vital signs: Vital Signs Temp 97.1 F L 09/03/18 04:00 Pulse 74 09/03/18 07:29 Resp 20 09/03/18 04:00 BP 135/61 09/03/18 04:00 Pulse Ox 94 L 09/03/18 04:00 Intake & Output 09/02/18 09/03/18 09/03/18 18:59 06:59 18:59 Intake Total 720 Output Total 900 1600 225 Balance -180 -1600 -225 Weight 97 kg Intake: Oral 720 Output: Urine 900 1600 225 Uretheral (Suero) 100 900 Other: Voiding Method Diaper Indwelling Catheter Incontinent # Bowel Movements 1 ABP, PAP, CO, CI - Last Documented Arterial Blood Pressure 130/57 Pulmonary Artery Pressure 40/20 Cardiac Output 6.7 Cardiac Index 3.3 - Constitutional General appearance: Present: cooperative, no acute distress, obese - Respiratory Details: Lung sounds with scattered rhonchi throughout, diminished bilateral bases. Respirations are symmetrical and nonlabored. Oxygen saturation are 94% on 2 L nasal cannula. He is achieving 1250 mL on his incentive spirometry. - Cardiovascular Details: Regular rhythm and rate. S1 and S2 present, negative for S3, gallop or murmur. Sternum is stable. Remote telemetry showing normal sinus rhythm heart rate 82. Atrial and ventricular epicardial pacemaker wires in place and grounded. Heart hugger is placed as demonstrated appropriate use. Knee-high MARCELLE hose and sequential compression devices in place to his bilateral lower extremities. - Gastrointestinal Gastrointestinal Comment(s): Abdomen soft, nontender and nondistended. Active bowel sounds all 4, quadrants. Bowel movements yesterday 09/02/2018. Passing flatus. Episodes of incontinence. Tolerating oral intake. - Genitourinary Genitourinary Comment(s): Urinary retention and postvoid residuals of greater than 700. Draining clear yellow urine with some pink tinge. 1600 mL output in the last 8 hours. - Integumentary Integumentary Comment(s): Skin is warm and dry, no clubbing or cyanosis. Midline sternal incision clean and dry and approximated. No drainage or redness present. Left leg EVH site clean dry and approximated. No drainage or redness present. - Neurologic Neurologic Comment(s): No focal deficits. Neurologic: Present: CNII-XII intact - Musculoskeletal Musculoskeletal: Present: generalized weakness, strength equal bilaterally - Psychiatric Psychiatric: Present: A&O x's 3, appropriate affect, intact judgment & insight - Allied health notes Allied health notes reviewed: nursing - Labs CBC & Chem 7: 09/03/18 06:11 09/03/18 06:11 Labs: Abnormal Lab Results - Last 24 Hours (Table) 09/02/18 09/02/18 09/02/18 Range/Units 06:44 08:52 11:17 RBC (4.30-5.90) m/uL Hgb (13.0-17.5) gm/dL Hct (39.0-53.0) % RDW (11.5-15.5) % Carbon Dioxide 31 H (22-30) mmol/L BUN 37 H (9-20) mg/dL Creatinine 1.48 H (0.66-1.25) mg/dL Glucose 105 H (74-99) mg/dL POC Glucose (mg/dL) 159 H 161 H (75-99) mg/dL Total Protein 5.6 L (6.3-8.2) g/dL Albumin 2.9 L (3.5-5.0) g/dL 09/02/18 09/02/18 09/03/18 Range/Units 16:37 21:00 06:07 RBC (4.30-5.90) m/uL Hgb (13.0-17.5) gm/dL Hct (39.0-53.0) % RDW (11.5-15.5) % Carbon Dioxide (22-30) mmol/L BUN (9-20) mg/dL Creatinine (0.66-1.25) mg/dL Glucose (74-99) mg/dL POC Glucose (mg/dL) 109 H 166 H 104 H (75-99) mg/dL Total Protein (6.3-8.2) g/dL Albumin (3.5-5.0) g/dL 09/03/18 09/03/18 Range/Units 06:11 06:11 RBC 3.30 L (4.30-5.90) m/uL Hgb 9.7 L (13.0-17.5) gm/dL Hct 30.7 L (39.0-53.0) % RDW 17.6 H (11.5-15.5) % Carbon Dioxide (22-30) mmol/L BUN 32 H (9-20) mg/dL Creatinine 1.42 H (0.66-1.25) mg/dL Glucose (74-99) mg/dL POC Glucose (mg/dL) (75-99) mg/dL Total Protein 5.8 L (6.3-8.2) g/dL Albumin 3.0 L (3.5-5.0) g/dL - Imaging and Cardiology Chest x-ray: report reviewed, image reviewed Assessment and Plan (1) NSTEMI (non-ST elevated myocardial infarction) Current Visit: Yes Status: Acute Code(s): I21.4 - NON-ST ELEVATION (NSTEMI) MYOCARDIAL INFARCTION SNOMED Code(s): 867702560 (2) CAD (coronary artery disease) Current Visit: Yes Status: Chronic Code(s): I25.10 - ATHSCL HEART DISEASE OF [place] CORONARY ARTERY W/O ANG PCTRS SNOMED Code(s): 57654632 (3) COPD (chronic obstructive pulmonary disease) Current Visit: Yes Status: Chronic Code(s): J44.9 - CHRONIC OBSTRUCTIVE PULMONARY DISEASE, UNSPECIFIED SNOMED Code(s): 47184759 (4) History of nephrectomy Current Visit: Yes Status: Chronic Code(s): Z90.5 - ACQUIRED ABSENCE OF KIDNEY SNOMED Code(s): 88341677104527 (5) History of prostate cancer Current Visit: Yes Status: Chronic Code(s): Z85.46 - PERSONAL HISTORY OF MALIGNANT NEOPLASM OF PROSTATE SNOMED Code(s): 836525264 (6) Hyperlipidemia Current Visit: Yes Status: Chronic Code(s): E78.5 - HYPERLIPIDEMIA, UNSPECIFIED SNOMED Code(s): 44418098 (7) Hypertension Current Visit: Yes Status: Chronic Code(s): I10 - ESSENTIAL (PRIMARY) HYPERTENSION SNOMED Code(s): 64566371 (8) Insulin dependent diabetes mellitus Current Visit: Yes Status: Chronic Code(s): E11.9 - TYPE 2 DIABETES MELLITUS WITHOUT COMPLICATIONS; Z79.4 - FOLLOW UP MANAGER (CURRENT) USE OF INSULIN SNOMED Code(s): 65345725 (9) Left main coronary artery disease Current Visit: Yes Status: Chronic Code(s): I25.10 - ATHSCL HEART DISEASE OF [place] CORONARY ARTERY W/O ANG PCTRS SNOMED Code(s): 812828876 (10) Tobacco dependence in remission Current Visit: No Status: Resolved Code(s): F17.201 - NICOTINE DEPENDENCE, UNSPECIFIED, IN REMISSION SNOMED Code(s): 281480260 Plan: 1. Continue aspirin, statin, Plavix and beta laurie. Will increase beta laurie therapy as tolerated. 2. Continue amiodarone 200 mg by mouth twice a day for atrial fibrillation prophylaxis. 3. Encourage use of his incentive spirometry every hour while awake. 4. Increase activity as tolerated. PT/OT/cardiac rehab following. 6. Wean oxygen as tolerated. Recommendations per pulmonary management. 7. Continue Lasix 20 mg IV every 12 hours managed by nephrology. 7. Bronchodilators per pulmonology. 8. Insulin management per primary care service. 7. Will monitor daily labs and x-rays. 9. GI prophylaxis with Protonix. DVT prophylaxis with subcu heparin, SCDs. 10. Pain control with current medication regimen. 11. Continue Flomax for BPH. 12. Consult nephrology for urine retention and need for Suero placement. 13. Remove atrial and ventricular epicardial pacemaker wires, bed rest for 1 hour post pacemaker wire removal. 14. Discharge planning in place, anticipate upon discharge he will need a subacute rehab facility for further rehabilitation needs. 15. More recommendations to follow based on patient's clinical course. Time with Patient: Greater than 30
[2018-09-03] MEDS: METOPROLOL TARTRATE 12.5 MG TAB PO SCH (08:26)
[2018-09-03] MEDS: ASPIRIN 325 MG TAB PO SCH (08:26)
[2018-09-03] MEDS: ATORVASTATIN 40 MG TAB PO SCH (08:26)
[2018-09-03] MEDS: QUEtiapine 50 MG TAB PO SCH (08:26)
[2018-09-03] MEDS: TAMSULOSIN 0.4 MG CAP.ER.24H PO SCH (08:27)
[2018-09-03] MEDS: FUROSEMIDE 10 MG/ML 2 ML VIAL IV SCH (08:27)
[2018-09-03] MEDS: AMIODARONE 200 MG TAB PO SCH (08:27)
[2018-09-03] MEDS: CLOPIDOGREL 75 MG TAB PO SCH (08:27)
[2018-09-03] MEDS: HEPARIN SODIUM,PORCINE 5,000 UNIT/ML 1 ML VIAL SQ SCH (08:28)
--- NOTE | 2018-09-03 09:52 | PN ---
PROGRESS NOTE Patient is seen for followup for acute kidney injury. His renal function has been improving. Patient is likely going home today. PHYSICAL EXAMINATION: On examination, blood pressure was 135/65, heart rate of 80 per minute. He is afebrile. EXAMINATION OF THE HEART: S1, S2. EXAMINATION OF THE LUNGS: Bilateral breath sounds are heard. Abdomen is soft, nontender. Examination of lower extremities shows trace edema bilaterally. LABS: Labs show serum creatinine down to 1.42, BUN 32, sodium 140, potassium 4.5. ASSESSMENT: 1. Acute kidney injury, acute tubular necrosis, nonoliguric, currently improving. 2. Status post coronary artery bypass surgery. 3. Mild hypervolemia. 4. History of benign prostatic hypertrophy, maintained on Flomax. 5. Hypertension, currently controlled. PLAN: We can switch to oral Lasix at 40 mg b.i.d. for about 2 to 3 days and then switch to 40 mg daily subsequently. The patient will need close followup as outpatient for management of volume status. Monitor renal profile and electrolytes as outpatient. MMODL / IJN: [id number] /
--- NOTE | 2018-09-03 10:58 | P.DS ---
Providers Date of admission: 08/13/18 20:25 Expected date of discharge: 09/03/18 Attending physician: Josep Hannah Consults: 08/13/18 20:25 Consult Physician Urgent Consulting Provider: Homer Harper Consult Reason/Comments: nstemi Do you want consulting provider notified?: Yes 08/14/18 13:20 Consult Physician Routine Consulting Provider: Geremias Eller Consult Reason/Comments: preop cabg Do you want consulting provider notified?: Yes 08/16/18 13:18 Consult to Anesthesia Routine Consulting Provider: Anesthesia,Services Consult Reason/Comments: Cardiac Surgery Pre-Op 08/17/18 15:06 Consult Physician Routine Consulting Provider: Brandi Jordan Consult Reason/Comments: medical management Do you want consulting provider notified?: Already Contacted 08/21/18 09:17 Consult Physician Routine Consulting Provider: Keshawn López Consult Reason/Comments: approval for PICC, eGFR 41 Do you want consulting provider notified?: Yes 09/03/18 08:05 Consult Physician Routine Consulting Provider: Da Zelaya Consult Reason/Comments: urine retention Do you want consulting provider notified?: Yes Primary care physician: Joy Reagan - Discharge Diagnosis(es) (1) NSTEMI (non-ST elevated myocardial infarction) Current Visit: Yes Status: Acute (2) CAD (coronary artery disease) Current Visit: Yes Status: Chronic (3) COPD (chronic obstructive pulmonary disease) Current Visit: Yes Status: Chronic (4) History of nephrectomy Current Visit: Yes Status: Chronic (5) History of prostate cancer Current Visit: Yes Status: Chronic (6) Hyperlipidemia Current Visit: Yes Status: Chronic (7) Hypertension Current Visit: Yes Status: Chronic (8) Insulin dependent diabetes mellitus Current Visit: Yes Status: Chronic (9) Left main coronary artery disease Current Visit: Yes Status: Chronic (10) Tobacco dependence in remission Current Visit: No Status: Resolved Hospital Course: FINAL DIAGNOSIS: 1. Non-elevated myocardial infarction this admission, symptomatic multivessel coronary artery disease 2. Preoperative impaired left ventricular systolic function with an ejection fraction of 20-25% 3. Hypertension 4. Insulin dependent diabetes mellitus with a preoperative hemoglobin A1c of 7.1% 5. COPD with preoperative FEV1 87% of predicted 6. History of nicotine dependence, quit smoking in 1979 7. History of prostate cancer with radiation was in 20 years ago 8. BPH 9. Obesity 10. History of right nephrectomy in 1969 11. Hyperlipidemia. 12. Chronic kidney disease, solitary kidney 13. Postoperative right lower lobe collapse secondary to mucous plugging, an unexpected outcome 14. Postoperative delirium, an unexpected outcome 15. Postoperative acute respiratory distress requiring reintubation, prolonged mechanical ventilation, an unexpected outcome 16. Postoperative acute blood loss anemia, an expected outcome of surgery due to cardiopulmonary bypass hematoma dilution 17. Postoperative paroxysmal atrial fibrillation, an unexpected but potential outcome 18. Postoperative urinary retention, and an unexpected outcome PRINCIPAL PROCEDURE: 1. Left heart catheterization 2. Urgent coronary artery bypass grafting 3 vessels, left internal mammary artery to the left anterior descending coronary artery, reverse greater saphenous vein graft to the obtuse marginal coronary artery, reverse greater saphenous vein graft to the posterior descending coronary artery 3. Endoscopic vein harvest of the left greater saphenous vein 4. Epiaortic ultrasound 5. Intraoperative transesophageal echocardiogram 6. Closure of sternum using titanium plates and [place] cable system 7. Bronchoscopy, bronchoalveolar lavage of the right middle lobe, right lower lobe and washings of both lungs performed by Dr. Almodovar HISTORY OF PRESENT ILLNESS: This is a 73-year-old gentleman who follows with Dr. Joy Reagan on an outpatient basis. He presented to [facility] emergency room with complaints of chest pain associated with shortness of breath and diaphoresis. He denied any symptoms of syncope, dizziness, nausea, fever. He was hypertensive upon presentation and his initial EKG had evidence of ST changes in the anterior leads. Troponin was slightly elevated and he was ruled in for non-STEMI. Repeat troponin was 11.8. He was admitted for cardiology workup and started on IV heparin. He was taken to the cardiac catheterization lab which demonstrated a long lesion in the distal left main of 70% before it bifurcated into the LAD and circumflex along with some calcification, 70% narrowing in the LAD at the origin of the first diagonal branch, 70% stenosis in the LAD at the origin of the second diagonal branch with probable thrombus, first obtuse marginal with a 90% stenosis proximally, 60 % narrowing in the circumflex after the first obtuse marginal, proximal RCA with total occlusion, with collateralization from the left system to the right, left ventriculogram was not performed. Transthoracic echo was completed demonstrating impaired left ventricular systolic function with an EF 20-25%, anteroseptal, inferolateral, and apical hypokinesis, mild mitral regurgitation, and mild tricuspid regurgitation. Dr. Campos from cardiothoracic surgery was consulted. The patient was recommended to undergo urgent coronary artery bypass grafting. All risks and benefits were explained in detail to the patient and his family, all questions were answered, and consent was obtained to proceed with surgery. He was maximized on medical therapy over for a few days before surgery. HOSPITAL COURSE: On 08/17/2018 the patient was brought to the preoperative area , prepared in the usual fashion, and subsequently taken to the operating room where Dr. Hannah performed urgent coronary artery bypass grafting 3 vessels, left internal mammary artery to the left anterior descending coronary artery, reverse greater saphenous vein graft to the obtuse marginal coronary artery, reverse greater saphenous vein graft to the posterior descending coronary artery , endoscopic vein harvest of the left greater saphenous vein, epiaortic ultrasound, intraoperative transesophageal echocardiogram, and closure of sternum using titanium plates and [place] cable system. Upon completion of surgery the patient was transferred to the cardiovascular intensive care unit where he was recovered, monitored hemodynamically, and where he progressed to cardiac rehabilitation phase 1. He had a maria luisa post operative course with right lower lobe collapse secondary to mucous plugging, delirium, and acute respiratory distress requiring reintubation and bronchoscopy. In addition he experienced acute blood loss anemia which is an expected outcome surgery and which required no blood transfusions, as well as paroxysmal atrial fibrillation which was successfully treated with amiodarone. He was eventually extubated, all lines, tubes, drips were discontinued when appropriate, he was transferred to [address] [place] [address] for further monitoring and rehabilitation where his oxygen was titrated down, he continued to work with physical and occupational therapy, he was tolerating oral diet, his pain was controlled, and he was ready for discharge to subacute rehab on postoperative #17. He did experience urinary retention requiring replacement of Suero catheter to be followed by urology on an outpatient basis. He received written and verbal instruction regarding his medications, activity restrictions, signs and symptoms requiring physician notification, and follow-up appointments. No ANDREAS inhibitor was prescribed, contraindicated at this time with chronic kidney disease and blood pressure intolerance. COMPLICATIONS: The patient experienced postoperative right lower lobe collapse , acute delirium, respiratory distress requiring reintubation and prolonged mechanical ventilation, blood loss anemia, paroxysmal atrial fibrillation, and urinary retention, all of which were treated accordingly. Patient Condition at Discharge: Stable Plan - Discharge Summary Discharge Rx Participant: No New Discharge Prescriptions: New Acetaminophen Tab [Tylenol] 650 mg PO Q6HR PRN tab PRN Reason: Fever and/ or Mild Pain Heparin Sodium,Porcine [Heparin Sodium] 5,000 unit SQ Q8HR vial Amiodarone [Cordarone] 200 mg PO BID tab Aspirin 325 mg PO DAILY tab Atorvastatin [Lipitor] 40 mg PO DAILY tab Clopidogrel [Plavix] 75 mg PO DAILY tab Furosemide [Lasix] 20 mg PO BID #60 tab Ipratropium-Albuterol Nebulize [Duoneb 0.5 mg-3 mg/3 ml Soln] 3 ml INHALATION RT-QID ampul.neb Ipratropium-Albuterol Nebulize [Duoneb 0.5 mg-3 mg/3 ml Soln] 3 ml INHALATION RT-Q2H PRN ampul.neb PRN Reason: Shortness Of Breath Or Wheezing Metoprolol Tartrate [Lopressor] 12.5 mg PO BID tab QUEtiapine [SEROquel] 50 mg PO BID tab Sennosides-Docusate Sodium [Senokot-S] 2 each PO HS PRN tab PRN Reason: Constipation Tamsulosin [Flomax] 0.4 mg PO BID cap.er.24h Insulin Aspart [NovoLOG (formulary)] 0 unit SQ ACHS vial Insulin Detemir [Levemir] 25 unit SQ HS syr Discontinued Insulin Glargine [Lantus] 50 unit SQ BID Lisinopril-Hctz 20-12.5 mg [Zestoretic 20-12.5] 1 tab PO DAILY Albuterol Inhaler [Ventolin Hfa Inhaler] 2 puff INHALATION RT-Q6H PRN PRN Reason: Shortness Of Breath Tamsulosin HCl [Flomax] 0.4 mg PO HS Aspirin EC [Ecotrin Low Dose] 81 mg PO HS Discharge Medication List Acetaminophen Tab [Tylenol] 650 mg PO Q6HR PRN tab 09/03/18 [Rx] Amiodarone [Cordarone] 200 mg PO BID tab 09/03/18 [Rx] Aspirin 325 mg PO DAILY tab 09/03/18 [Rx] Atorvastatin [Lipitor] 40 mg PO DAILY tab 09/03/18 [Rx] Clopidogrel [Plavix] 75 mg PO DAILY tab 09/03/18 [Rx] Furosemide [Lasix] 20 mg PO BID #60 tab 09/03/18 [Rx] Heparin Sodium,Porcine [Heparin Sodium] 5,000 unit SQ Q8HR vial 09/03/18 [Rx] Insulin Aspart [NovoLOG (formulary)] 0 unit SQ ACHS vial 09/03/18 [Rx] Insulin Detemir [Levemir] 25 unit SQ HS syr 09/03/18 [Rx] Ipratropium-Albuterol Nebulize [Duoneb 0.5 mg-3 mg/3 ml Soln] 3 ml INHALATION RT -Q2H PRN ampul.neb 09/03/18 [Rx] Ipratropium-Albuterol Nebulize [Duoneb 0.5 mg-3 mg/3 ml Soln] 3 ml INHALATION RT -QID ampul.neb 09/03/18 [Rx] Metoprolol Tartrate [Lopressor] 12.5 mg PO BID tab 09/03/18 [Rx] QUEtiapine [SEROquel] 50 mg PO BID tab 09/03/18 [Rx] Sennosides-Docusate Sodium [Senokot-S] 2 each PO HS PRN tab 09/03/18 [Rx] Tamsulosin [Flomax] 0.4 mg PO BID cap.er.24h 09/03/18 [Rx] Follow up Appointment(s)/Referral(s): Homer Harper MD [STAFF PHYSICIAN] - 09/21/18 4:00 pm Malachi Maya MD [STAFF PHYSICIAN] - 09/09/18 2:00 pm () Josep Hannah MD [STAFF PHYSICIAN] - 09/25/18 10:00 am Joy Reagan DO [Primary Care Provider] - 1 Week (Please make appointment upon discharge from subacute rehab) Geremias Eller MD [STAFF PHYSICIAN] - 09/18/18 1:30 pm Ambulatory/Diagnostic Orders: Complete Blood Count w/diff [LAB.AMB] Time Frame: 3 Days, Location: None Selected Comprehensive Metabolic Panel [LAB.AMB] Time Frame: 3 Days, Location: None Selected Activity/Diet/Wound Care/Special Instructions: DISCHARGE INSTRUCTIONS: 1. No driving for 4 weeks, or until physician gives their ok. 2. The patient should sleep in their own bed, no medical bed needed. 3. Stairs are not an issue. If the bedroom is upstairs, it is advised that the patient go up at night and down in the morning for the first week. Go slowly, using handrail and take 1 step at a time. 4. MARCELLE hose are to be worn for 30 days or until physician discontinues. 5. Heart hugger is to be worn 100% of the time until physician discontinues.( except when showering) 6. No lifting, pushing, or pulling more than 10 pounds for 12 weeks. The physician will advise of any restriction changes. 7. The patient is expected to continue the prescribed walking program. 8. Continue pain control per as needed orders. 9. Continue with incentive spirometry and splinting/heart hugger until otherwise directed by the physician. 10. Must shower daily using liquid antibacterial soap and a separate white washcloth for each individual incision. 11. Routine sternal incision care, no ointments, lotions or powders on the incisions. 12. Please notify surgeon/nurse practitioner for temperature greater than 101F or purulent drainage from incisions 13. Prescriptions for first 30 days given per cardiac surgery service. After 30 days, all prescription refills obtained through cardiology/primary care physician. 14. A red arm and has been placed on this patient it should be worn for 30 days post surgery and will be removed by the cardiothoracic surgeons. If an ER visit is necessary, please make sure the number on the red arm band is called. REHAB/HOME HEALTH SERVICES TO PROVIDE: RN SKILLED HOME CARE SERVICES FOR POST-OP SURGICAL PATIENTS WITH THE FOLLOWING: Coronary Artery Bypass Surgery (CABG) RN TO CONTINUE EDUCATION FROM ``ROAD TO A HEALTH HEART PATIENT EDUCATION MANUAL" (GIVEN TO PATIENT IN THE HOSPITAL) MEDICATION RECONCILIATION WITH EDUCATION NEEDED ON FIRST HOME VISIT EMPHASIZE IMPORTANCE OF WEARING HEART HUGGER ENCOURAGE USE OF INCENTIVE SPIROMETER 10 X EVERY HOUR WHILE AWAKE ENCOURAGE UTILIZATION OF LOWER EXTREMITY COMPRESSION STOCKINGS/MACRELLE HOSE and ELEVATE LEGS ABOVE LEVEL OF HEART WHILE AT REST. ENCOURAGE AMBULATION 3-5x/day INCREASING TOLERATES, WHILE AVOID EXTREMES IN TEMPERATURE FREQUENCY: RN TO OPEN THE PATIENT WITHIN 24 HOURS OF DISCHARGE FROM THE HOSPITAL WITH TELEHEALTH INSTALLED AT [facility] [place], RN TO VISIT 2-3 X A WEEK FOR 4 WEEKS ESTABLISHED BY PATIENT NEEDS. LABORATORY: CBC, CMP TO BE DRAWN ON THE THIRD DAY AT REHAB THEN PER PROTOCOL, (RAN STAT) FAX RESULTS TO [phone]. TELEHEALTH PARAMETERS: WEIGHT: NOTIFY MD OF WEIGHT GAIN OF 2 LBS IN 24 HOURS OR 5 LBS IN ONE WEEK HR: NOTIFY MD OF HR <55 BPM OR HR>100 BPM BP: NOTIFY MD IF BP <90/55 OR BP>140/100 O2 SAT: NOTIFY MD IF PO2<93% ON ROOM AIR SEND TELEHEALTH REPORT TO QUALITY ANALYST AND CARDIOVASCULAR SURGEON THE FIRST WEEK OF CARE AND THEN BI-WEEKLY. PLEASE ADDITIONALLY COMMUNICATE ANY ABNORMALS AND NEW FINDINGS TO THE SURGEONS OFFICE. Discharge Disposition: TRANSFER TO SNF/ECF
--- NOTE | 2018-09-03 11:10 | P.PN ---
Subjective Progress Note Date: 09/03/18 This is a 73-year-old male, patient of [facility]. He has a known past medical history of hypertension, diabetes mellitus, COPD, right nephrectomy 1970 and former smoker. Patient presents to the emergency room with complaints of chest pain with pressure and heaviness and diaphoresis. Symptoms had started yesterday. Patient was diagnosed with a non-ST elevated TX. Initial troponin 0.128 then 11.6 and 11.8. Patient was started on IV heparin cardiology was consulted. And patient underwent heart catheterization today. The heart catheterization shows total occlusion of the right coronary artery. Left main is 70-75% stenosed. The left anterior descending coronary artery has a mid lesion of 70% with thrombus. Obtuse marginal had 80-85% stenosis. Cardiology is recommending open-heart surgery. That her surgery has been consulted. They have already evaluated patient and surgery we'll possibly be on Friday. Pulmonary service has also been consulted. Patient is receiving IV fluids. He was slightly dehydrated on admission creatinine was 1.44. Unclear baseline creatinine. Creatinine in March 2018 was 1.3. Patient currently is chest pain-free. He reports that symptoms started after eating spicy soup and when he came back home he belched a large amount of gas and is relieved the pressure. He has been chest pain-free. Cardiology has placed him on IV heparin and Aggrastat. On 08/15/2018 patient was seen and examined he is alert and oriented 3 in no apparent distress he is sitting at the edge of the bed and he denies any chest pain there is no shortness of breath at rest he has occasional cough no palpitation no nausea or vomiting no abdominal pain no diarrhea no constipation no burning with urination no frequency or urgency and no hematuria. On 08/16/2018 patient was seen and examined on the telemetry floor he is alert and oriented 3 in no distress he denies any new episodes of chest pain he denies any other symptoms there is no fever or chills no headache or dizziness no shortness of breath no cough no nausea or vomiting no abdominal pain no diarrhea no burning was urination no frequency or urgency and no hematuria On 08/17/2018 Patient had coronary artery bypass graft [address] Hannah today. Patient currently intubated and on sedation. Patient remains in the intensive care unit. Patient currently on levophed for pressure support. On 08/18/2018 patient is currently postop day 1 and coronary artery bypass graft surgery. Patient is currently up in chair. Patient was extubated throughout night. Precedex drip has been DC'd per cardiovascular team. Patient remains sleepy but alert and arousable. At this time patient denies shortness of breath. Denies nausea vomiting or diarrhea. Denies any urinary burning. On 08/19/2018 patient is currently postop day 2 from coronary artery bypass graft. Per nursing staff patient is confused. Patient is also requiring BiPAP to maintain adequate oxygenation. Discussed case with Luna from the cardiovascular surgical team. Patient remains on Precedex drip. safety sitting at bedside. On 08/20/2018 patient is currently postop day 2 from coronary artery bypass graft. Patient remains on BiPAP for adequate oxygen. Precedex drip has been DC 'd. Patient does seem more alert. Patient followed closely by cardiovascular surgical team and critical care On 08/21/2018 patient got reintubated last night due to agitation and hypoxia. Patient is currently on propofol for sedation. Patient also started on Levophed for pressure support. Critical care team following closely. On 08/22/2018 patient got reintubated due to agitation and hypoxia. Patient is currently on propofol for sedation. Patient also started on Levophed for pressure support. Critical care team following closely. On 08/23/2018 patient is intubated sedated maintained on mechanical ventilation , he had a sedation holiday for about 1 hour at that time he was following commands. At this time he is back on sedation urine output is adequate. Hemoglobin is down to 7.2 On 08/24/2018 patient remains intubated on mechanical ventilation in the intensive care unit. Per nursing staff patient becomes agitated during sedation holidays. Hemoglobin decreasing to 7.1. Sedation holiday will be attempted again today. On 08/25/2018 patient recently extubated this a.m. Patient currently on BiPAP. Patient remains on Precedex drip. Patient is responsive to name. Patient having elevated temps at 101.3. Urine and blood cultures have been ordered per surgical vascular team. Bronchoscopy washing cultures showing no organisms at this time. On 08/26/2018 patient remains extubated on BiPAP. Patient is responsive to name in follow some commands. Long acting insulin increased to 20 units daily. Urine and blood cultures pending. Patient still having low-grade temps 100.4. On 08/27/2018 patient currently on BiPAP. Patient did have episode of A. fib with RVR throughout night. Patient currently on amiodarone drip per cardiovascular surgery. Shad montelongo will be assessed today. At this time patient is awake and alert. On 08/28/2018 she currently remains on BiPAP. Per nursing staff patient is only able to tolerate being off BiPAP temporarily due to increased respiratory rate. Patient is eating. Patient is awake and alert. Patient remains in the intensive care unit On 08/29/2018 patient was seen and examined in ICU he is alert and oriented in no apparent distress he is maintained on oxygen via nasal cannula and is tolerating well he denies any chest pain at this time there is no fever or chills there is occasional cough no shortness of breath at rest no nausea or vomiting no abdominal pain he had 2 episodes of loose stools there is no urinary symptoms. On 08/30/2018 patient is alert and oriented in no distress he was seen and examined in the intensive care unit, he denies any chest pain or shortness of breath is lying comment to bleeding in bed there is no fever or chills no headache or dizziness no nausea or vomiting no abdominal pain no diarrhea and no urinary symptoms. Nurse is reporting that patient has urinary retention he is able to urinate but he is requiring straight cath occasionally. On 08/31/2018 patient remains in the intensive care unit. Patient looks much improved. Patient is awake and alert. Patient is currently on high flow 10 L. At this time patient denies chest pain. Patient denies any nausea vomiting or diarrhea. On 09/01/2018 patient is alert and oriented. Patient is currently on high flow 8 L high flow. Per nursing staff patient to be transferred out of intensive care unit today to selective care. At this time patient denies chest pain or shortness of breath. Denies nausea vomiting or diarrhea. Denies any urinary burning or frequency On 09/02/2018 Patient has been moved out of the intensive care unit to selective care. Patient is alert and oriented and currently sitting up in chair. Patient is down to 5 L nasal cannula at this time patient denies chest pain or shortness of breath. Patient denies nausea vomiting or diarrhea. Patient denies any urinary burning or frequency. On 09/03/2018 patient has been showing significant improvement. Patient is alert and oriented 3. Patient is now on room air. Patient will be discharged to [facility] for physical therapy and rehab. Patient will be followed closely by cardiovascular team and primary care provider Dr. Jordan. At this time patient denies chest pain or shortness of breath. Patient denies nausea vomiting or diarrhea. Patient denies any urinary burning or frequency. Patient does have fully catheter in place due to urinary retention and will be going to rehab with fully catheter in place. Patient will follow up with urologist outpatient for further evaluation in to removing the Gonzalez catheter. Will be discharged per cardiovascular surgical team Objective - Vital Signs Vital signs: Vital Signs Temp 100 F H 09/03/18 08:00 Pulse 80 09/03/18 08:00 Resp 20 09/03/18 08:00 BP 135/65 09/03/18 08:00 Pulse Ox 95 09/03/18 08:00 Intake & Output 09/02/18 09/03/18 09/03/18 18:59 06:59 18:59 Intake Total 720 222 Output Total 900 1600 225 Balance -180 -1600 -3 Weight 97 kg Intake: Oral 720 222 Output: Urine 900 1600 225 Uretheral (Gonzalez) 100 900 Other: Voiding Method Diaper Indwelling Catheter Indwelling Catheter Incontinent # Bowel Movements 1 ABP, PAP, CO, CI - Last Documented Arterial Blood Pressure 130/57 Pulmonary Artery Pressure 40/20 Cardiac Output 6.7 Cardiac Index 3.3 - Exam Head normocephalic Neck supple Lungs Breath sounds diminished bilaterally Heart regular rate and rhythm S1-S2, no rub or gallop Abdomen is soft nontender nondistended positive bowel sounds no hepatosplenomegaly Extremities no edema Neuro patient is following some commands and responds to name - Labs CBC & Chem 7: 09/03/18 06:11 09/03/18 06:11 Labs: Abnormal Lab Results - Last 24 Hours (Table) 09/02/18 09/02/18 09/02/18 Range/Units 11:17 16:37 21:00 RBC (4.30-5.90) m/uL Hgb (13.0-17.5) gm/dL Hct (39.0-53.0) % RDW (11.5-15.5) % BUN (9-20) mg/dL Creatinine (0.66-1.25) mg/dL POC Glucose (mg/dL) 161 H 109 H 166 H (75-99) mg/dL Total Protein (6.3-8.2) g/dL Albumin (3.5-5.0) g/dL 09/03/18 09/03/18 09/03/18 Range/Units 06:07 06:11 06:11 RBC 3.30 L (4.30-5.90) m/uL Hgb 9.7 L (13.0-17.5) gm/dL Hct 30.7 L (39.0-53.0) % RDW 17.6 H (11.5-15.5) % BUN 32 H (9-20) mg/dL Creatinine 1.42 H (0.66-1.25) mg/dL POC Glucose (mg/dL) 104 H (75-99) mg/dL Total Protein 5.8 L (6.3-8.2) g/dL Albumin 3.0 L (3.5-5.0) g/dL Assessment and Plan Assessment: 1. Status post coronary artery bypass graft [address] Hannah postop day 16. The CHAHAL to LAD, SVG to PDA and Circ. Patient currently intubated and on sedation. Cardiovascular team and critical care team following closely. Patient currently up in chair. Patient has been extubated throughout night. hemoglobin 7.9. Discussed case with Luna per cardiovascular surgical team 2-D echo has been ordered due to diminished heart sounds. Hemoglobin 7.3. On 08/20 Patieht required reintubation due to extreme agitation and hypoxia. HemoGlobin 9.7 2. Acute respiratory failure. Patient required reintubation last night 08/20. Chest x-ray completed showing right pleural effusion and bilateral lower lobe pulmonary infiltrates. There is probably mild heart failure. Endotracheal tube is in good position. Heart and lungs appear unchanged. Chest ultrasound completed showing small to tiny bilateral pleural effusions. Per pulmompleted showing cardiomegaly nary team No thoracentesis at this time. Status post bronchoscopy on 08/21/2018. Suspect right lower lobe collapse. Critical care and pulmonary services following closely. bronchial cultures pending. 08/25 patient extubated to BiPAP. 08/31 chest x-ray showing right lower lobe atelectasis and/or infiltrate and to lesser external left lower lobe atelectasis. Small effusions are present. Patient currently on 5 L high flow nasal cannula. Patient now on room air. Patient will be discharged to [facility] 3. Acute Non-ST elevated myocardial infarction: Heart catheterization showing multivessel coronary artery disease with thrombus in the LAD. 4. Acute kidney injury: Unclear patient has chronic kidney disease. Creatinine in March 2018 was 1.3. Continue with IV fluid hydration. Creatinine 1.42. Continue to monitor closely. Creatinine continued to increase to 1.60. Discussed case with Luna kendra from cardiovascular surgery will continue to monitor closely at this point. Creatinine improving to 1.40 and bun 41. Nephrology following. She will be DC'd on Lasix 20 mg twice a day. CMP has been ordered for 3 days per cardiovascular team 5. Essential hypertension 6. Diabetes mellitus insulin-dependent. Hemoglobin A1c 7.9. Patient on sliding scale insulin. Lantus 10 units has been added. 08/27 Lantus has been increased to 25 units. Patient did pass followed swallow eval and now tolerating diet. Blood sugars are improving. Blood sugars much improvement. Patient will be DC'd on 25 of Lantus along with sliding scale coverage with meals 7. History of COPD: No evidence of exacerbation. continue albuterol nebulizer as needed 8. BPH continue Flomax. We'll makes has been increased to twice a day due to urinary retention 9. Atelectasis noted on chest x-ray order incentive spirometer 10. Obesity BMI 39.4 kg 11. Possible acute ICU psychosis and delirium. Patient remains on Precedex. Critical care team following closely. On 08/20 patient required reintubation. patient extubated. 12. Expected acute blood loss anemia secondary to surgery. Hemoglobin 6.8. Cardiovascular surgery following closely. We'll continue to monitor closely. HemoGlobin 9.6 13. Elevated temperature. Patient febrile with 11.3. WBC improving to 9.9. Blood and urine culture negative 14. Postoperative atrial fibrillation, and expected outcome. Patient currently on amiodarone 15. Elevated liver enzymes. AST 85 and ALT 84. Discussed case with cardiothoracic SURVEY ENGINEER. Resolved 16. Urinary retention. Orders per cardiovascular surgery to BladderScan for post for residual every 6 hours, May straight cath for greater than 300ml. Continue Flomax. Patient will be DC'd to [facility] with gonzalez catheter in place. Patient will follow-up outpatient with urology services. Flomax has been increased to twice a day CBC and CMP has been ordered for 3 days per cardiovascular surgical team. Patient to be followed by Dr. Jordan at [facility]. I performed an examination of the patient and discussed their management with the Nurse Practitioner. I have reviewed the Nurse Practitioner's notes and agree with the documented findings and plan of care
--- NOTE | 2018-09-03 11:11 | P.PN ---
Subjective Progress Note Date: 09/03/18 This is a 73-year-old gentleman who underwent three-vessel coronary bypass grafting surgery. He presented to the hospital with a non-ST elevation myocardial infarction, patient hasn't impaired LV function of 20-25%, hypertension, hyperlipidemia, diabetes, mild COPD, obesity, prostate cancer with previous radiation therapy and prior right nephrectomy. He was seen and examined on the telemetry unit this morning, sitting up in the chair at bedside. Blood pressure this morning 110/60 with a heart rate in the 70s, ID 2 % on 5 L of oxygen. White blood cell count 8.2, hemoglobin 9.6, platelet count 241. Sodium 139, potassium 4.4, BUN 37, creatinine 1.4. Reaching 2000 on his incentive spirometry this morning. 09/03/2018 Patient was seen and examined this morning, earlier this morning he had been up in the chair, the time of my examination he was lying in bed. States that he did not sleep very well through the night last night. Blood pressure 130/60 with a heart rate in the 80s, low-grade temperature of 100. White blood cell count 8.5, hemoglobin 9.7, platelet count 234. Sodium 140, potassium 4.5, BUN 32, creatinine 1.4. Breathing overall is stable. Urine culture has been sent this morning. Objective - Vital Signs Vital signs: Vital Signs Temp 100 F H 09/03/18 08:00 Pulse 80 09/03/18 08:00 Resp 20 09/03/18 08:00 BP 135/65 09/03/18 08:00 Pulse Ox 95 09/03/18 08:00 Intake & Output 09/02/18 09/03/18 09/03/18 18:59 06:59 18:59 Intake Total 720 222 Output Total 900 1600 225 Balance -180 -1600 -3 Weight 97 kg Intake: Oral 720 222 Output: Urine 900 1600 225 Uretheral ([place]) 100 900 Other: Voiding Method Diaper Indwelling Catheter Indwelling Catheter Incontinent # Bowel Movements 1 ABP, PAP, CO, CI - Last Documented Arterial Blood Pressure 130/57 Pulmonary Artery Pressure 40/20 Cardiac Output 6.7 Cardiac Index 3.3 - Exam PHYSICAL EXAMINATION: GENERAL: 73-year-old gentleman in no acute distress at the time of my examination. HEENT: Head is atraumatic, normocephalic. Pupils equal, round. Sclera anicteric. Conjunctiva are clear. Mucous membranes of the mouth are moist. Neck is supple. There is no elevated jugular venous pressure.No carotid bruit is heard. HEART EXAMINATION: Heart S1-S2 normal, no A. fib noted on the monitor. A/V epicardial pacer wires present, connected to generator, AAI mode with backup rate 45. Heart hugger in place. CHEST EXAMINATION: Lungs are clear with diminished air entry to bilateral bases , fine expiratory wheezing also noted. BDOMEN: [ Soft, nontender. Bowel sounds are heard. No organomegly noted]. EXTREMITIES:[ 2+ peripheral pulses with trace evidence of peripheral edema bilateral MARCELLE hose and SCDs. EUROLOGIC [patient is awake, alert and orinted X3.] . - Labs CBC & Chem 7: 09/03/18 06:11 09/03/18 06:11 Labs: Abnormal Lab Results - Last 24 Hours (Table) 09/02/18 09/02/18 09/02/18 Range/Units 11:17 16:37 21:00 RBC (4.30-5.90) m/uL Hgb (13.0-17.5) gm/dL Hct (39.0-53.0) % RDW (11.5-15.5) % BUN (9-20) mg/dL Creatinine (0.66-1.25) mg/dL POC Glucose (mg/dL) 161 H 109 H 166 H (75-99) mg/dL Total Protein (6.3-8.2) g/dL Albumin (3.5-5.0) g/dL 09/03/18 09/03/18 09/03/18 Range/Units 06:07 06:11 06:11 RBC 3.30 L (4.30-5.90) m/uL Hgb 9.7 L (13.0-17.5) gm/dL Hct 30.7 L (39.0-53.0) % RDW 17.6 H (11.5-15.5) % BUN 32 H (9-20) mg/dL Creatinine 1.42 H (0.66-1.25) mg/dL POC Glucose (mg/dL) 104 H (75-99) mg/dL Total Protein 5.8 L (6.3-8.2) g/dL Albumin 3.0 L (3.5-5.0) g/dL Assessment and Plan Plan: Assessment and plan #1 non-ST elevation myocardial infarction, status post 3 vessel coronary artery bypass grafting surgery #2 hypertension #3 diabetes #4 history of smoking #5 COPD #6 mild renal insufficiency, s/p right nephrectomy Plan From cardiology's perspective, we'll continue patient on current medications. He is noted to have a low-grade temperature this morning and a urine culture has been requested. Arrangements are being made for the patient to transfer to [facility] for rehab. DNP note has been reviewed, I agree with a documented findings and plan of care. Patient was seen and examined.
[2018-09-03 11:50] LABS: Glucose,Whole Blood 156 mg/dL (75-99)
[2018-09-03 12:33] VITALS: BP 120/60; TEMP 99.3
[2018-09-03 13:18] LABS: Appearance,Urine Cloudy (Clear); Bilirubin,Urine Negative (Negative); Blood,Urine Moderate (Negative); Color,Urine Light Yellow; Glucose,Urine (UA) Negative (Negative); Ketones,Urine Negative (Negative); Leukocyte Esterase,Urine Moderate (Negative); Nitrite,Urine Negative (Negative); Protein,Urine Negative (Negative); RBC,Urine 7 /hpf (0-5); Specific Gravity,Urine 1.006 (1.001-1.035); Urobilinogen,Urine <2.0 mg/dL (<2.0); WBC,Urine 10 /hpf (0-5)
[2018-09-03 13:24] VITALS: PULSE 77
--- NOTE | 2018-09-03 13:24 | P.PN ---
Subjective Progress Note Date: 09/03/18 Principal diagnosis: Symptomatic multivessel coronary artery disease, awaiting surgical revascularization. This is a 73-year-old white male patient of Dr. Joy Reagan, who presented emergency department on 08/13/2018 at 1840 evaluation of chest pain, associated with diaphoresis. The pain was non-radiating, and occurred after eating some spicy soup, patient was belching, and had some nausea. No vomiting. EKG showed some ST and T-wave abnormalities in the inferior, anterior, and lateral leads with T-wave inversion. Troponins were elevated at 0.128, 11.8, 11.8 and 9.270, patient was ruled in for non-ST elevated AL. Patient was placed on IV heparin, aspirin, Coreg, nitroglycerin and he underwent cardiac catheterization this afternoon with Dr. ALISHA Harper which showed a distal lesion of the left main of 70% before bifurcation into LAD and circumflex with calcification, 60% narrowing in the LAD at the origin of the first diagonal branch, 70% stenosis in the LAD at the origin of the second diagonal branch with probable thrombus, first obtuse marginal with 80-90% stenosis proximally, and 60% narrowing in the circumflex after the first obtuse marginal, total occlusion of the proximal RCA with some collateral circulation from the left system to the right. Patient has past medical history of coronary artery disease, COPD, diabetes mellitus type 2, hypertension, previous nicotine dependence, history of right nephrectomy in 1969 and chronic kidney disease. Patient was recommended to undergo coronary revascularization and cardiothoracic surgery has been consulted. We are seeing this patient for pulmonary evaluation. On 08/15/2018, the patient has no specific complaints. He is not having any chest pain. Resting comfortably in bed. Bedside spirometry was noted and there is no significant obstructive airway limitation. Chest x-ray was reviewed and showed some elevation of the right hemidiaphragm. Otherwise there is some subsegmental atelectatic changes in the lung bases. He is an ex- smoker. He is an obese male patient with a BMI of 39.0. No previous history of DVT or pulmonary embolism. No home O2. He is an ex-smoker. Overall performance status is good. On 08/16/2018 patient seen in follow-up on selective care unit. He sitting up on bed, in no acute distress, denies any shortness of breath. No chest pain, he is on heparin drip. Room air pulse ox is 94%, vital signs are stable. Lung sounds are clear. Patient is possibly scheduled for surgical revascularization surgery on 08/17/2018. No acute complaints overnight. Sinus rhythm. On 08/17/2018 patient seen in follow-up in the intensive care unit, he is status post three-vessel coronary artery bypass grafting, with CHAHAL to LAD, SVG to the PDA, and circumflex. Patient is currently sedated, intubated, on mechanical ventilator, and current vent settings are SIMV mode with a rate of 12 , tidal volume 500, FiO2 of 50% and PEEP of 10. IV drips include LR at a rate of 40, levothyroid at a rate of 10 mics per minute, Primacor is at 0.2 mics per kilo per minute, Precedex is at 0.2 mics per kilo per hour. Patient received 1500 of crystalloids and 1500 mL of 5% albumin, in addition to Cell Saver. [place] -Eliazar catheter is in place, with PA pressures of 50/32, CVP of 25, cardiac output of 7.3, and cardiac index of 3.6. Patient has 2 mediastinal chest tubes and left pleural chest tubes with small amount of sanguinous output. AV epicardial wires are in place, patient is currently being paced at her mode of AAI with a rate of 80 BPM. The blood work showed WBC of 8.6, hemoglobin of 8.5 , INR 1.2, sodium of 140, potassium is 4.8, chloride is 110, BUN of 21, creatinine is 1.09. Blood gas showed pO2 of 79, pCO2 of 53, pH of 7.25. Vent settings were adjusted, and rate was increased to IMV with a rate of 18 breaths per minute. Suero catheter is in place, and patient is producing 30-50 ML per hour. On 08/26/2018 patient seen again in follow-up in the intensive care unit. He was extubated yesterday on 08/25/2018 to BiPAP. He remains on BiPAP support, currently at pressures 10 and 5, and 50%. Post extubation patient was noted to be a bit stridorous, his voice is hoarse, and patient has persistent nonproductive cough. He was given 2 doses of IV Decadron yesterday. This morning patient is awake and alert, oriented to self, and place. Disoriented to time. He is still having the persistent cough, and his voice remains hoarse. He was given a trial of nasal cannula, and he was quite anxious, tachypneic. He could not complete his bedside swallow evaluation in view of persistent coughing, and tachypnea. We will give the patient additional doses of Decadron, Precedex was discontinued yesterday, she remains on Seroquel 50 mg twice daily, will add small doses of Ativan 3 times a day as needed for anxiety. He is in sinus rhythm currently a bit tachycardic, with a heart rate of 115. Lung sounds are positive for a few rhonchi, no significant wheezing on today's exam. This chest x-ray was reviewed, and showed stable findings, with right basilar opacity, pulmonary venous congestion, and cardiomegaly. Today's labs were reviewed, WBC 7.6, hemoglobin 7.1, sodium is 148, chloride is 113, BUN is 60, creatinine is 1.85. Patient's maintenance IV fluids is lactated Ringer's at 20 mL per hour. Switch the IV fluids to D5W at a rate of 75 ML per hour. On 08/27/2018 patient seen in follow-up in the intensive care unit, he remains on BiPAP support, currently with pressures of 12 and 5, and FiO2 of 60%. He is awake and alert, oriented 2, to person and place. Seems a bit less anxious today, his voice is less hoarse. Patient was given 4 more doses of IV Decadron and racemic epinephrine.. Lung sounds are essentially clear, with minimal crackles at the bilateral bases. Today's checks chest x-ray has been reviewed and showed pulmonary vascular congestion/mild interstitial edema which has slightly worsened, and moderate right and increasing small to moderate left pleural effusions with adjacent atelectasis. CT surgery has ordered a dose of IV Lasix today, we will give the patient a trial on nasal cannula. Today's labs were reviewed, Rabia BC is 8.4, hemoglobin is 7.6, sodium is 145, potassium is 4.7, chloride is 111, BUN is 68, and creatinine is 1.8. Patient had some bouts of diarrhea yesterday, C. diff was negative. Patient is producing urine, in the order of 40-50 ML per hour. He has been afebrile. Yesterday he had a short run of A. fib RVR with the wide QRS complex, patient was already receiving oral amiodarone, he is currently on amiodarone drip at 0.5 mg/min, patient had converted back to sinus. Maintenance IV fluid is D5W at a rate of 75 ML per hour. This morning he remains in sinus rhythm, and the rate is controlled 65 BPM. On 08/28/2018 patient seen in follow-up in the intensive care unit, remains on BiPAP support, with pressures of 12 and 5, 60%. Yesterday patient did tolerate 3 hours of nasal cannula trial, but afterwards became tachypneic, and labored breathing, and had to be placed back on BiPAP support. This morning he is awake and alert, he is oriented to self, and place. Denies any acute distress, lung sounds are relatively clear, with only a few minimal crackles. D5W is running at a rate of 75 ML per hour. No other drips. Today's chest x-ray has been reviewed, and shows cardiomegaly, and bilateral pleural effusions, patient was given a dose of IV Lasix yesterday. Patient did pass a swallow evaluation, and has been eating. He remains nonoliguric, he denies any shortness of breath or chest pain. His heart rate is controlled, he is actually a bit bradycardiac at the moment, sinus rhythm with a rate of 55 BPM. Microbiology remains negative. On 09/03/2018 patient seen in follow-up on selective care unit. He is awake and alert, in no acute distress, his speech is slightly slurred, but patient is awake and alert and oriented 3, and answering questions appropriately, he is on 2 L per nasal cannula, with a pulse ox of 92%, hemodynamically stable, he did have a low-grade fever yesterday with a temp of 100F, and again this morning of 100F. Feels warm to touch. Patient had to have his Suero catheter reinserted for urinary retention, his labs were noted, no leukocytosis, Rabia BC is 8.5, hemoglobin is 9.7, electrolytes were within normal limits, we'll profile is stable, BUN is 32, creatinine is 1.42, patient is nonoliguric. We will obtain blood cultures, and urine culture as well as urinalysis. Lung sounds are clear to auscultation. Patient is to be transferred to inpatient rehab sometime today. Objective - Vital Signs Vital signs: Vital Signs Temp 99.3 F 09/03/18 12:00 Pulse 76 09/03/18 13:11 Resp 20 09/03/18 12:00 BP 120/60 09/03/18 12:00 Pulse Ox 92 L 09/03/18 12:00 Intake & Output 09/02/18 09/03/18 09/03/18 18:59 06:59 18:59 Intake Total 720 222 Output Total 900 1600 225 Balance -180 -1600 -3 Weight 97 kg Intake: Oral 720 222 Output: Urine 900 1600 225 Uretheral (Suero) 100 900 Other: Voiding Method Diaper Indwelling Catheter Indwelling Catheter Incontinent # Bowel Movements 1 ABP, PAP, CO, CI - Last Documented Arterial Blood Pressure 130/57 Pulmonary Artery Pressure 40/20 Cardiac Output 6.7 Cardiac Index 3.3 - Exam GENERAL EXAM: obese 73-year-old white male comfortable in no apparent distress. Feels a little warm to touch, patient had low-grade fever this morning, but denies any chills or malaise. No shortness of breath HEAD: Normocephalic/atraumatic. EYES: Normal reaction of pupils, equal size. Conjunctiva pink, sclera white. NOSE: Clear with pink turbinates. MOUTH: Missing teeth THROAT: No erythema or exudates. NECK: No masses, no JVD, no thyroid enlargement, no adenopathy. CHEST: No chest wall deformity. Symmetrical expansion. Sternal incision is clean dry and intact, covered with a surgical dressing LUNGS: Equal air entry with clear breath sounds, but no wheeze, rhonchi or dullness. CVS: Regular rate and rhythm, normal S1 and S2, no gallops, no murmurs, no rubs. ABDOMEN: Soft, nontender. No hepatosplenomegaly, normal bowel sounds, no guarding or rigidity. EXTREMITIES: No clubbing, no edema, no cyanosis, 2+ pulses and upper and lower extremities. Bilateral lower extremities are Hiren wrapped, SCDs are present MUSCULOSKELETAL: Muscle strength and tone normal. SPINE: No scoliosis or deformity SKIN: No rashes CENTRAL NERVOUS SYSTEM: Sedated. No focal deficits, tone is normal in all 4 extremities. - Labs CBC & Chem 7: 10/04/18 06:11 09/03/18 06:11 Labs: Abnormal Lab Results - Last 24 Hours (Table) 09/02/18 09/02/18 09/03/18 Range/Units 16:37 21:00 06:07 RBC (4.30-5.90) m/uL Hgb (13.0-17.5) gm/dL Hct (39.0-53.0) % RDW (11.5-15.5) % BUN (9-20) mg/dL Creatinine (0.66-1.25) mg/dL POC Glucose (mg/dL) 109 H 166 H 104 H (75-99) mg/dL Total Protein (6.3-8.2) g/dL Albumin (3.5-5.0) g/dL 09/03/18 09/03/18 09/03/18 Range/Units 06:11 06:11 11:48 RBC 3.30 L (4.30-5.90) m/uL Hgb 9.7 L (13.0-17.5) gm/dL Hct 30.7 L (39.0-53.0) % RDW 17.6 H (11.5-15.5) % BUN 32 H (9-20) mg/dL Creatinine 1.42 H (0.66-1.25) mg/dL POC Glucose (mg/dL) 156 H (75-99) mg/dL Total Protein 5.8 L (6.3-8.2) g/dL Albumin 3.0 L (3.5-5.0) g/dL Assessment and Plan Plan: Assessment: Postop day #17, status post three-vessel bypass grafting Status post extubation and reintubation on August 20. Patient was extubated again on 08/25/2018, requiring intermittent BiPAP support Postoperative ventilator management A. fib RVR with a wide-QRS complex, back in sinus rhythm Non-ST segment elevation myocardial infarction ICU psychosis and delirium, improving Status post bronchoscopy on August 21 for right lower lobe collapse Diabetes mellitus COPD History of chronic tobacco dependence History of prostate cancer History of hyperlipidemia Benign essential hypertension Previous nephrectomy Plan: Urinalysis, blood cultures and urine culture have been ordered and sent. He remains stable from pulmonary standpoint, his chest x-ray has been reviewed, and showed minimal subsegmental atelectasis at the left diaphragm. From pulmonary perspective patient is stable for transfer to inpatient rehab. I performed a history & physical examination of the patient and discussed their management with my nurse practitioner, Randi Root. I reviewed the nurse practitioner's note and agree with the documented findings and plan of care. Lung sounds are essentially clear, with minimal crackles. The findings and the impression was discussed with the patient. I attest to the documentation by the nurse pr Time with Patient: Less than 30
== END 2018-09-03 14:37 | DRG 233 ==
LOC: EC 18:20 → 6SEL 20:25 → 6ICU 08-17 07:40 → 6SEL 09-01 11:25
PROVIDERS: ADMIT Internal Medicine; ATTEND Surgery
PROC: B211YZZ Fluoroscopy of Multiple Coronary Arteries using Other Contrast (ICD-10-PCS; 2018-08-14)
PROC: 021109W Bypass Coronary Artery, Two Arteries from Aorta with Autologous Venous Tissue, Open Approach (ICD-10-PCS; 2018-08-17)
PROC: 06BQ4ZZ Excision of Left Saphenous Vein, Percutaneous Endoscopic Approach (ICD-10-PCS; 2018-08-17)
PROC: B24BZZ4 Ultrasonography of Heart with Aorta, Transesophageal (ICD-10-PCS; 2018-08-17)
PROC: 5A1221Z Performance of Cardiac Output, Continuous (ICD-10-PCS; 2018-08-17)
PROC: 30233N0 Transfusion of Autologous Red Blood Cells into Peripheral Vein, Percutaneous Approach (ICD-10-PCS; 2018-08-17)
PROC: 02100Z9 Bypass Coronary Artery, One Artery from Left Internal Mammary, Open Approach (ICD-10-PCS; principal; 2018-08-17 08:00)
PROC: B44HZZZ Ultrasonography of Bilateral Lower Extremity Arteries (ICD-10-PCS; 2018-08-18)
PROC: 5A09457 Assistance with Respiratory Ventilation, 24-96 Consecutive Hours, Continuous Positive Airway Pressure (ICD-10-PCS; 2018-08-19)
PROC: 0BH17EZ Insertion of Endotracheal Airway into Trachea, Via Natural or Artificial Opening (ICD-10-PCS; 2018-08-20)
PROC: 5A1955Z Respiratory Ventilation, Greater than 96 Consecutive Hours (ICD-10-PCS; 2018-08-20)
PROC: 0D9670Z Drainage of Stomach with Drainage Device, Via Natural or Artificial Opening (ICD-10-PCS; 2018-08-20)
PROC: 0B9D8ZX Drainage of Right Middle Lung Lobe, Via Natural or Artificial Opening Endoscopic, Diagnostic (ICD-10-PCS; 2018-08-21)
PROC: 02HV33Z Insertion of Infusion Device into Superior Vena Cava, Percutaneous Approach (ICD-10-PCS; 2018-08-21)
PROC: 0BC68ZZ Extirpation of Matter from Right Lower Lobe Bronchus, Via Natural or Artificial Opening Endoscopic (ICD-10-PCS; 2018-08-21)
PROC: 0BC58ZZ Extirpation of Matter from Right Middle Lobe Bronchus, Via Natural or Artificial Opening Endoscopic (ICD-10-PCS; 2018-08-21)
PROC: 3E1F88Z Irrigation of Respiratory Tract using Irrigating Substance, Via Natural or Artificial Opening Endoscopic (ICD-10-PCS; 2018-08-21)
PROC: 3E0G76Z Introduction of Nutritional Substance into Upper GI, Via Natural or Artificial Opening (ICD-10-PCS; 2018-08-21)
DX: I21.4 Non-ST elevation (NSTEMI) myocardial infarction (principal); N17.0 Acute kidney failure with tubular necrosis; I50.23 Acute on chronic systolic (congestive) heart failure; J96.01 Acute respiratory failure with hypoxia; J98.11 Atelectasis; I13.0 Hypertensive heart and chronic kidney disease with heart failure and stage 1 through stage 4 chronic kidney disease, or unspecified chronic kidney disease; N17.9 Acute kidney failure, unspecified; D62 Acute posthemorrhagic anemia; F05 Delirium due to known physiological condition; E87.1 Hypo-osmolality and hyponatremia; E87.0 Hyperosmolality and hypernatremia; J44.9 Chronic obstructive pulmonary disease, unspecified; I95.9 Hypotension, unspecified; E11.22 Type 2 diabetes mellitus with diabetic chronic kidney disease; E66.01 Morbid (severe) obesity due to excess calories; I48.0 Paroxysmal atrial fibrillation; I08.1 Rheumatic disorders of both mitral and tricuspid valves; T17.990A Other foreign object in respiratory tract, part unspecified in causing asphyxiation, initial encounter; I25.5 Ischemic cardiomyopathy; E86.0 Dehydration; I45.10 Unspecified right bundle-branch block; E78.5 Hyperlipidemia, unspecified; E78.1 Pure hyperglyceridemia; I25.119 Atherosclerotic heart disease of native coronary artery with unspecified angina pectoris; G47.33 Obstructive sleep apnea (adult) (pediatric); I25.2 Old myocardial infarction; E61.1 Iron deficiency; N40.1 Benign prostatic hyperplasia with lower urinary tract symptoms; R33.8 Other retention of urine; K21.9 Gastro-esophageal reflux disease without esophagitis; N18.9 Chronic kidney disease, unspecified; Z68.39 Body mass index [BMI] 39.0-39.9, adult; F17.201 Nicotine dependence, unspecified, in remission; Z71.3 Dietary counseling and surveillance; Z79.4 Long term (current) use of insulin; Z79.82 Long term (current) use of aspirin; Z79.899 Other long term (current) drug therapy; Z90.5 Acquired absence of kidney; Z83.3 Family history of diabetes mellitus; Z85.46 Personal history of malignant neoplasm of prostate; Z92.3 Personal history of irradiation; Z82.49 Family history of ischemic heart disease and other diseases of the circulatory system
CPT/HCPCS: 31624; 36415; 36569; 36600; 71045; 71046; 76604; 76937; 80048; 80053; 80061; 80074; 81001; 81003; 82150; 82330; 82550; 82553; 82728; 82805; 83036; 83540; 83550; 83690; 83735; 84100; 84132; 84295; 84443; 84484; 85025; 85027; 85520; 85610; 85730; 86850; 86891; 86900; 86901; 86920; 87040; 87070; 87086; 87102; 87116; 87205; 87206; 87252; 87324; 87496; 87498; 87502; 87529; 87634; 87798; 88108; 88305; 89050; 93005; 93306; 93308; 93454; 93880; 93970; 94002; 94003; 94150; 94640; 94660; 94667; 94668; 94760; 96365; 96375; 96376; 99285

== ENCOUNTER 2019-01-07 11:24 | Inpatient (IN) | payer MEDICARE, OTHER ==
--- NOTE | 2019-01-07 11:40 | ED ---
General Adult HPI - General Chief complaint: Chest Pain Stated complaint: Weakness Time Seen by Provider: 01/07/19 11:24 Source: patient, EMS, RN notes reviewed Mode of arrival: EMS Limitations: no limitations - History of Present Illness Initial comments: This is a 73-year-old male with a history of coronary artery disease with a recent coronary artery bypass graft 3 who just released from [facility] 3 days ago who is brought in by EMS this morning because of weakness. He was found to be incontinent of urine and stool at home he is been in bed for 2 days he's been having urinary frequency. No reports of fevers chills or sweats he does have a slight cough. He did fall out of bed once. He does have a cough of white phlegm he states. - Related Data Home Medications Medication Instructions Recorded Confirmed Aspirin [[place] Aspirin EC] 81 mg PO DAILY 01/07/19 01/07/19 Atorvastatin [Lipitor] 20 mg PO HS 01/07/19 01/07/19 Cholecalciferol [Vitamin D3] 5,000 unit PO DAILY 01/07/19 01/07/19 Ferrous Sulfate [Iron] 325 mg PO DAILY 01/07/19 01/07/19 Finasteride [Proscar] 5 mg PO DAILY 01/07/19 01/07/19 Gabapentin [Neurontin] 100 mg PO BID 01/07/19 01/07/19 Insulin Detemir [Levemir] 15 - 25 unit SQ HS 01/07/19 01/07/19 Menthol [Biofreeze] 1 applic TOPICAL BID 01/07/19 01/07/19 Metoprolol Tartrate 12.5 mg PO BID 01/07/19 01/07/19 Natural Balance Tears 0.4% 1 drop BOTH EYES Q1H PRN 01/07/19 01/07/19 guaiFENesin [Mucinex] 600 mg PO Q12HR PRN 01/07/19 01/07/19 Previous Rx's Medication Instructions Recorded Acetaminophen Tab [Tylenol] 650 mg PO Q6HR PRN tab 09/03/18 Clopidogrel [Plavix] 75 mg PO DAILY tab 09/03/18 Furosemide [Lasix] 20 mg PO BID #60 tab 09/03/18 Ipratropium-Albuterol Nebulize 3 ml INHALATION RT-Q2H PRN 09/03/18 [Duoneb 0.5 mg-3 mg/3 ml Soln] ampul.neb Ipratropium-Albuterol Nebulize 3 ml INHALATION RT-QID ampul.neb 09/03/18 [Duoneb 0.5 mg-3 mg/3 ml Soln] Tamsulosin [Flomax] 0.4 mg PO BID cap.er.24h 09/03/18 Allergies Allergy/AdvReac Type Severity Reaction Status Date / Time No Known Allergies Allergy Verified 01/07/19 11:52 Review of Systems ROS Statement: Those systems with pertinent positive or pertinent negative responses have been documented in the HPI. ROS Other: All systems not noted in ROS Statement are negative. Past Medical History Past Medical History: Coronary Artery Disease (CAD), Cancer, COPD, Diabetes Mellitus, Hyperlipidemia, Hypertension, Prostate Disorder Additional Past Medical History / Comment(s): prostate cancer with radiation > 20 years ago History of Any Multi-Drug Resistant Organisms: ESBL, MRSA Date of last positivie culture/infection: 12/12/18 ESBL; 10/27/18 MRSA MDRO Source:: Urine-ESBL; Back-MRSA Past Surgical History: Coronary Bypass/CABG Additional Past Surgical History / Comment(s): rt nephrectomy 1969, triple bypass 2018 Past Anesthesia/Blood Transfusion Reactions: No Reported Reaction Past Psychological History: No Psychological Hx Reported Smoking Status: Former smoker Past Alcohol Use History: None Reported Past Drug Use History: None Reported - Past Family History Father Additional Family Medical History / Comment(s): old age Mother Family Medical History: Coronary Artery Disease (CAD), Diabetes Mellitus Additional Family Medical History / Comment(s): CABG General Exam - General Exam Comments Initial Comments: This is a well-developed asthenic appearing male who is awake alert oriented 3 vessel coma scale of 15 Limitations: no limitations General appearance: alert, in no apparent distress Head exam: Present: atraumatic, normocephalic, normal inspection Eye exam: Present: normal appearance, PERRL, EOMI. Absent: scleral icterus, conjunctival injection, periorbital swelling ENT exam: Present: mucous membranes dry Neck exam: Present: normal inspection. Absent: tenderness, meningismus, lymphadenopathy Respiratory exam: Present: normal lung sounds bilaterally, other (Well-healed mid sternotomy scar. No evidence of dehiscence.). Absent: respiratory distress , wheezes, rales, rhonchi, stridor Cardiovascular Exam: Present: regular rate, normal rhythm, normal heart sounds. Absent: systolic murmur, diastolic murmur, rubs, gallop, clicks GI/Abdominal exam: Present: soft, normal bowel sounds. Absent: distended, tenderness, guarding, rebound, rigid, bruit, pulsatile mass Rectal exam: Present: deferred Extremities exam: Present: normal inspection, full ROM, normal capillary refill. Absent: tenderness, pedal edema, joint swelling, calf tenderness Back exam: Present: normal inspection Neurological exam: Present: alert, oriented X3, CN II-XII intact Psychiatric exam: Present: normal mood, flat affect Skin exam: Present: warm, dry, intact, normal color. Absent: rash Course Vital Signs 01/07/19 01/07/19 11:28 13:30 Temperature 98.9 F Pulse Rate 87 16 L Respiratory 20 18 Rate Blood Pressure 117/77 119/72 O2 Sat by Pulse 99 Oximetry - Reevaluation(s) Reevaluation #1: 01/07/19 15:29 Reevaluation patient revealed minimal change he still remains awake alert oriented 3 Medical Decision Making - Medical Decision Making Patient is resting comfortably he does demonstrate markedly elevated troponin and BNP d-dimer with evidence of renal insufficiency. I did discuss case with Dr. Harmon as well as with Dr. Marcano who did come the emergency department see the patient. Patient will be admitted - Lab Data Result diagrams: 01/07/19 11:39 01/07/19 11:39 Lab Results 01/07/19 01/07/19 01/07/19 Range/Units 11:39 11:39 11:39 WBC (3.8-10.6) k/uL RBC (4.30-5.90) m/uL Hgb (13.0-17.5) gm/dL Hct (39.0-53.0) % MCV (80.0-100.0) fL MCH (25.0-35.0) pg MCHC (31.0-37.0) g/dL RDW (11.5-15.5) % Plt Count (150-450) k/uL Neutrophils % % Lymphocytes % % Monocytes % % Eosinophils % % Basophils % % Neutrophils # (1.3-7.7) k/uL Lymphocytes # (1.0-4.8) k/uL Monocytes # (0-1.0) k/uL Eosinophils # (0-0.7) k/uL Basophils # (0-0.2) k/uL Hypochromasia Anisocytosis D-Dimer (<0.60) mg/L FEU Sodium 143 (137-145) mmol/L Potassium 3.5 (3.5-5.1) mmol/L Chloride 103 (98-107) mmol/L Carbon Dioxide 28 (22-30) mmol/L Anion Gap 12 mmol/L BUN 44 H (9-20) mg/dL Creatinine 1.30 H (0.66-1.25) mg/dL Est GFR (CKD-EPI)AfAm 63 (>60 ml/min/1.73 sqM) Est GFR (CKD-EPI)NonAf 54 (>60 ml/min/1.73 sqM) Glucose 130 H (74-99) mg/dL Calcium 9.5 (8.4-10.2) mg/dL Magnesium 2.1 (1.6-2.3) mg/dL Total Bilirubin 0.9 (0.2-1.3) mg/dL AST 56 (17-59) U/L ALT 40 (21-72) U/L Alkaline Phosphatase 78 (38-126) U/L Ammonia 32 H (<30) umol/L Total Creatine Kinase (55-170) U/L CK-MB (CK-2) (0.0-2.4) ng/mL CK-MB (CK-2) Rel Index Troponin I (0.000-0.034) ng/mL NT-Pro-B Natriuret Pep 8980 pg/mL Total Protein 6.5 (6.3-8.2) g/dL Albumin 3.6 (3.5-5.0) g/dL Amylase 32 (30-110) U/L Lipase 46 (23-300) U/L Urine Color Urine Appearance (Clear) Urine pH (5.0-8.0) Ur Specific [place] (1.001-1.035) Urine Protein (Negative) Urine Glucose (UA) (Negative) Urine Ketones (Negative) Urine Blood (Negative) Urine Nitrite (Negative) Urine Bilirubin (Negative) Urine Urobilinogen (<2.0) mg/dL Ur Leukocyte Esterase (Negative) Urine WBC (0-5) /hpf Urine WBC Clumps (None) /hpf Ur Squamous Epith Cells (0-4) /hpf Urine Bacteria (None) /hpf Urine Mucus (None) /hpf Serum Alcohol <10 mg/dL Influenza Type A RNA (Not Detectd) Influenza Type B (PCR) (Not Detectd) 01/07/19 01/07/19 01/07/19 Range/Units 11:39 11:39 11:39 WBC 5.0 (3.8-10.6) k/uL RBC 4.83 (4.30-5.90) m/uL Hgb 13.0 (13.0-17.5) gm/dL Hct 41.9 (39.0-53.0) % MCV 86.7 (80.0-100.0) fL MCH 27.0 (25.0-35.0) pg MCHC 31.1 (31.0-37.0) g/dL RDW 17.1 H (11.5-15.5) % Plt Count 145 L (150-450) k/uL Neutrophils % 85 % Lymphocytes % 6 % Monocytes % 5 % Eosinophils % 0 % Basophils % 0 % Neutrophils # 4.3 (1.3-7.7) k/uL Lymphocytes # 0.3 L (1.0-4.8) k/uL Monocytes # 0.2 (0-1.0) k/uL Eosinophils # 0.0 (0-0.7) k/uL Basophils # 0.0 (0-0.2) k/uL Hypochromasia Slight Anisocytosis Slight D-Dimer 8.03 H (<0.60) mg/L FEU Sodium (137-145) mmol/L Potassium (3.5-5.1) mmol/L Chloride (98-107) mmol/L Carbon Dioxide (22-30) mmol/L Anion Gap mmol/L BUN (9-20) mg/dL Creatinine (0.66-1.25) mg/dL Est GFR (CKD-EPI)AfAm (>60 ml/min/1.73 sqM) Est GFR (CKD-EPI)NonAf (>60 ml/min/1.73 sqM) Glucose (74-99) mg/dL Calcium (8.4-10.2) mg/dL Magnesium (1.6-2.3) mg/dL Total Bilirubin (0.2-1.3) mg/dL AST (17-59) U/L ALT (21-72) U/L Alkaline Phosphatase (38-126) U/L Ammonia (<30) umol/L Total Creatine Kinase 87 (55-170) U/L CK-MB (CK-2) 0.9 (0.0-2.4) ng/mL CK-MB (CK-2) Rel Index 1.0 Troponin I 0.669 H* (0.000-0.034) ng/mL NT-Pro-B Natriuret Pep pg/mL Total Protein (6.3-8.2) g/dL Albumin (3.5-5.0) g/dL Amylase (30-110) U/L Lipase (23-300) U/L Urine Color Urine Appearance (Clear) Urine pH (5.0-8.0) Ur Specific [place] (1.001-1.035) Urine Protein (Negative) Urine Glucose (UA) (Negative) Urine Ketones (Negative) Urine Blood (Negative) Urine Nitrite (Negative) Urine Bilirubin (Negative) Urine Urobilinogen (<2.0) mg/dL Ur Leukocyte Esterase (Negative) Urine WBC (0-5) /hpf Urine WBC Clumps (None) /hpf Ur Squamous Epith Cells (0-4) /hpf Urine Bacteria (None) /hpf Urine Mucus (None) /hpf Serum Alcohol mg/dL Influenza Type A RNA (Not Detectd) Influenza Type B (PCR) (Not Detectd) 01/07/19 01/07/19 Range/Units 14:00 14:20 WBC (3.8-10.6) k/uL RBC (4.30-5.90) m/uL Hgb (13.0-17.5) gm/dL Hct (39.0-53.0) % MCV (80.0-100.0) fL MCH (25.0-35.0) pg MCHC (31.0-37.0) g/dL RDW (11.5-15.5) % Plt Count (150-450) k/uL Neutrophils % % Lymphocytes % % Monocytes % % Eosinophils % % Basophils % % Neutrophils # (1.3-7.7) k/uL Lymphocytes # (1.0-4.8) k/uL Monocytes # (0-1.0) k/uL Eosinophils # (0-0.7) k/uL Basophils # (0-0.2) k/uL Hypochromasia Anisocytosis D-Dimer (<0.60) mg/L FEU Sodium (137-145) mmol/L Potassium (3.5-5.1) mmol/L Chloride (98-107) mmol/L Carbon Dioxide (22-30) mmol/L Anion Gap mmol/L BUN (9-20) mg/dL Creatinine (0.66-1.25) mg/dL Est GFR (CKD-EPI)AfAm (>60 ml/min/1.73 sqM) Est GFR (CKD-EPI)NonAf (>60 ml/min/1.73 sqM) Glucose (74-99) mg/dL Calcium (8.4-10.2) mg/dL Magnesium (1.6-2.3) mg/dL Total Bilirubin (0.2-1.3) mg/dL AST (17-59) U/L ALT (21-72) U/L Alkaline Phosphatase (38-126) U/L Ammonia (<30) umol/L Total Creatine Kinase (55-170) U/L CK-MB (CK-2) (0.0-2.4) ng/mL CK-MB (CK-2) Rel Index Troponin I (0.000-0.034) ng/mL NT-Pro-B Natriuret Pep pg/mL Total Protein (6.3-8.2) g/dL Albumin (3.5-5.0) g/dL Amylase (30-110) U/L Lipase (23-300) U/L Urine Color Yellow Urine Appearance Cloudy (Clear) Urine pH 5.5 (5.0-8.0) Ur Specific [place] 1.012 (1.001-1.035) Urine Protein 1+ H (Negative) Urine Glucose (UA) Negative (Negative) Urine Ketones Negative (Negative) Urine Blood Small H (Negative) Urine Nitrite Negative (Negative) Urine Bilirubin Negative (Negative) Urine Urobilinogen <2.0 (<2.0) mg/dL Ur Leukocyte Esterase Large H (Negative) Urine WBC >182 H (0-5) /hpf Urine WBC Clumps Few H (None) /hpf Ur Squamous Epith Cells 1 (0-4) /hpf Urine Bacteria Many H (None) /hpf Urine Mucus Rare H (None) /hpf Serum Alcohol mg/dL Influenza Type A RNA Not Detected (Not Detectd) Influenza Type B (PCR) Not Detected (Not Detectd) - EKG Data -: EKG Interpreted by Me (Normal sinus rhythm of 87. Interval 150 to QRS 140 QT since QTC 42/43 red ) EKG Comments: EKG shows a sinus rhythm of 87 appear interval 150 to QRS 14 QT since QTC 402/ 483 red bundle-branch block possible lateral infarct this is compared to an EKG dated at which time there was a atrial pacer noted - Radiology Data Radiology results: report reviewed (I did review the imaging and report or is evidence of a consolidation in the right midlung field.), image reviewed Critical Care Time Critical Care Time: Yes Critical Care Time: 37 minutes of critical care time which includes initial presentation with history physical labs x-rays multiple reevaluation the patient to responsive therapy progression of disease. Review of old charting documentation of the above. Discussed with the admitting physician as well as cardiology. Admission orders Disposition Clinical Impression: Acute renal failure (ARF), Elevated troponin, CHF (congestive heart failure), Elevated d-dimer, Lung consolidation, Failure to thrive in adult Disposition: ADMITTED IP TO THIS HOSP Condition: Serious Referrals: Gildardo Norton DO [STAFF PHYSICIAN] - 1-2 days
[2019-01-07 12:23] LABS: Anisocytosis Slight; Basophils % (A) 0 %; Eosinophils % (A) 0 %; HCT 41.9 % (39.0-53.0); Hypochromasia Slight; Lymphocytes # (A) 0.3 k/uL (1.0-4.8); Lymphocytes % (A) 6 %; MCHC 31.1 g/dL (31.0-37.0); MCV 86.7 fL (80.0-100.0); Mean Platelet Volume 7.9; Monocytes # (A) 0.2 k/uL (0-1.0); Monocytes % (A) 5 %; Neutrophils # (A) 4.3 k/uL (1.3-7.7); Neutrophils % (A) 85 %; Platelet Count 145 k/uL (150-450); RBC 4.83 m/uL (4.30-5.90); RDW 17.1 % (11.5-15.5)
[2019-01-07 12:32] LABS: ALT 40 U/L (21-72); AST 56 U/L (17-59); Albumin 3.6 g/dL (3.5-5.0); Alcohol <10 mg/dL; Alkaline Phosphatase 78 U/L (38-126); Amylase 32 U/L (30-110); Anion Gap 12 mmol/L; Blood Urea Nitrogen 44 mg/dL (9-20); Calcium 9.5 mg/dL (8.4-10.2); Carbon Dioxide 28 mmol/L (22-30); Chloride 103 mmol/L (98-107); Glucose 130 mg/dL (74-99); Lipase 46 U/L (23-300); Magnesium 2.1 mg/dL (1.6-2.3); Potassium 3.5 mmol/L (3.5-5.1); Sodium 143 mmol/L (137-145); Total Bilirubin 0.9 mg/dL (0.2-1.3); Total Protein 6.5 g/dL (6.3-8.2)
--- NOTE | 2019-01-07 12:42 | XR ---
EXAMINATION TYPE: XR chest 2V DATE OF EXAM: 01/07/2019 COMPARISON: 09/03/2018 HISTORY: Shortness of breath TECHNIQUE: Frontal and lateral views of the chest are obtained. FINDINGS: Scattered senescent parenchymal changes noted. Chronic elevation right hemidiaphragm. Focal density right midlung zone may reflect underlying infiltrate. Clinically. Heart size is stable. Mediastinal structures are stable and grossly unremarkable. No evidence for hilar prominence. Degenerative changes dorsal spine. IMPRESSION: 1. Focal density right midlung zone may reflect underlying infiltrate. Clinically.
[2019-01-07 12:58] LABS: Creatine Kinase MB 0.9 ng/mL (0.0-2.4)
[2019-01-07 13:26] LABS: Troponin I 0.669 ng/mL (0.000-0.034)
[2019-01-07 14:52] LABS: Appearance,Urine Cloudy (Clear); Bacteria,Urine Many /hpf; Bilirubin,Urine Negative (Negative); Blood,Urine Small (Negative); Color,Urine Yellow; Glucose,Urine (UA) Negative (Negative); Ketones,Urine Negative (Negative); Leukocyte Esterase,Urine Large (Negative); Mucus,Urine Rare /hpf; Nitrite,Urine Negative (Negative); PH, Urine 5.5 (5.0-8.0); Protein,Urine 1+ (Negative); Specific Gravity,Urine 1.012 (1.001-1.035); Squamous Epithelial Cell,Urine 1 /hpf (0-4); Urobilinogen,Urine <2.0 mg/dL (<2.0)
[2019-01-07] MEDS ORDERED: guaiFENesin 600 MG TABLET.ER PO PRN (15:37)
[2019-01-07] MEDS ORDERED: ARTIFICIAL TEARS-HYPROMELLOSE DROPS 15 ML BTL BOTH EYES PRN (15:37)
[2019-01-07] MEDS ORDERED: HEPARIN SODIUM,PORCINE 5,000 UNIT/ML 1 ML VIAL IV PRN (15:40)
[2019-01-07] MEDS ORDERED: HEPARIN SODIUM,PORCINE 10,000 UNIT/ML 1 ML VIAL IV ONE (15:40)
[2019-01-07] MEDS ORDERED: HEPARIN SOD,PORK IN 0.45% NACL 25,000 UNIT in 0.45% NACL 1 250ML.BAG IV SCH (15:45)
[2019-01-07] MEDS ORDERED: FUROSEMIDE 40 MG TAB PO SCH (16:00)
[2019-01-07 16:07] LABS: INR 0.9 (<1.2); Partial Thromboplastin Time 23.8 sec (22.0-30.0); Prothrombin Time 9.4 sec (9.0-12.0)
--- NOTE | 2019-01-07 17:20 | NM ---
EXAMINATION TYPE: NM pul vent and perfuse DATE OF EXAM: 01/07/2019 COMPARISON: NONE HISTORY: Elevated d-dimer TECHNIQUE: Utilizing inhalation of 64.4 mCi Tc 99m DTPA aerosol and intravenous injection of 5.1 mCi of Tc 99m MAA, ventilation and perfusion images are acquired post injection in multiple projections. FINDINGS: There is a matching segmental-sized defect in the posterior segment left upper lobe. There is no vent ilation/perfusion mismatch. There is overall decreased perfusion of the right lung compared to the le ft. There is a large matching defect involving the lateral right lung base. There is elevated right d iaphragm on the chest x-ray today. IMPRESSION: There are matching defects. There is a low probability of pulmonary embolism. There is evidence of ai rway disease.
[2019-01-07 18:26] LABS: Glucose,Whole Blood 113 mg/dL (75-99)
[2019-01-07] MEDS: INSULIN ASPART (NovoLOG) 100 UNIT/ML VIAL SQ SCH ×2 (18:55→20:47)
[2019-01-07 20:19] LABS: Glucose,Whole Blood 112 mg/dL (75-99)
--- NOTE | 2019-01-07 20:42 | CONS ---
CONSULTATION Mr. Perez is a 73-year-old male who was admitted through the emergency room with symptoms of progressive fatigue. The patient was discharged from [facility] 3 days ago, presented with progressive fatigue, lack of energy. In August of last year he presented with non ST-segment elevation myocardial infarction, underwent cardiac catheterization by Dr. Marvin Harper and was found to have severe triple-vessel coronary artery disease and left main disease and severely impaired left ventricular systolic function. He underwent coronary artery bypass grafting with CHAHAL to LAD, saphenous vein graft to the right coronary artery in the obtuse marginal branch. He had a prolonged hospitalization. According to him, he has been feeling quite fatigued with lack of energy and some dyspnea. He denies any chest discomfort. He denies any dizziness or palpitation. He has not been eating well according to him and he feels tired. The patient is in sinus mechanism and he had no evidence of malignant arrhythmia at this point. He has a history of chronic kidney disease during his most recent hospitalization. Although most recent lab data dating back to October of last year showed improvement of his renal function. Most recently lab data on December 21 of this year showed a BUN and creatinine and 21 and 0.97. His coronary risk factors are remarkable for prior history of smoking which he stopped many years ago. He has a history of hypertension and hyperlipidemia. MEDICATIONS: Include aspirin, Lipitor, Plavix 75 mg daily, Proscar, Lasix 20 mg twice a day, Neurontin, insulin and Flomax. REVIEW OF SYSTEMS: RESPIRATORY system: He has cough and progressive fatigue and dyspnea. GI system: He denies any recent GI bleed. No peptic ulcer disease. system. No dysuria or hematuria. Nervous system: No stroke or seizure. PHYSICAL EXAMINATION: He is a 73-year-old male, appears older than stated age. Blood pressure 119/70 with a heart rate in the 80s. HEAD: Normocephalic. EYES: Sclerae anicteric. NECK: Good carotid upstroke. No bruit. LUNGS with no wheezes. HEART: Regular rate and rhythm S1, S2. No S3. No rub appreciated. ABDOMEN: Soft, nontender. Positive bowel sounds. EXTREMITIES: No edema. Sternum with sternal click noted. LAB DATA: BUN and creatinine 44 and 1.3. Troponin 0.669. NT proBNP of 8980. Hemoglobin of 13, white blood cell of 5. Chest x-ray shows a focal density in the right mid lung that could be a an infiltrate. IMPRESSION: 1. Symptoms progressive with lack of energy, no clear etiology. Patient appetite has been poor. 2. Mild elevation of troponin, most likely representing type 2 event. 3. Elevation of NT proBNP in a patient with prior history of cardiomyopathy. Clinically, has no overt signs of heart failure. 4. Renal failure worsening. 5. History of diabetes. 6. History of hypertension. 7. Hyperlipidemia. RECOMMENDATION: From the cardiac standpoint, I will obtain an echocardiogram with Doppler. We will follow his renal function closely and depending on his progress, further recommendations will be made. I do not believe that we are dealing with a primary ischemic event at this time. Thank you for this consult. We will follow with you. MMODL / IJN: [id number] /
[2019-01-07] MEDS ORDERED: METOPROLOL TARTRATE 25 MG TAB PO SCH (21:00)
[2019-01-07] MEDS: GABAPENTIN 100 MG CAP PO SCH (21:00)
[2019-01-07] MEDS ORDERED: FUROSEMIDE 20 MG TAB PO SCH (21:00)
[2019-01-07] MEDS: ATORVASTATIN 20 MG TAB PO SCH (21:00)
[2019-01-07] MEDS: TAMSULOSIN 0.4 MG CAP.ER.24H PO SCH (21:00)
[2019-01-07] MEDS ORDERED: ATORVASTATIN 20 MG TAB PO SCH (21:00)
[2019-01-07] MEDS: METHYL SALICYLATE/MENTHOL CREAM 5 OZ TOPICAL SCH (21:01)
[2019-01-07] MEDS: METOPROLOL TARTRATE 25 MG TAB PO SCH (21:01)
[2019-01-07] MEDS: INSULIN DETEMIR (LEVEMIR) 100 UNIT/ML SYR SQ SCH (21:01)
[2019-01-08] MEDS ORDERED: ACETAMINOPHEN TAB 325 MG TAB PO PRN (05:00)
[2019-01-08 06:07] LABS: Glucose,Whole Blood 111 mg/dL (75-99)
[2019-01-08] MEDS: INSULIN ASPART (NovoLOG) 100 UNIT/ML VIAL SQ SCH ×4 (06:38→21:50)
[2019-01-08 07:59] LABS: Anisocytosis Slight; HCT 36.8 % (39.0-53.0); HGB 11.5 gm/dL (13.0-17.5); Hypochromasia Moderate; MCH 27.3 pg (25.0-35.0); MCHC 31.1 g/dL (31.0-37.0); MCV 87.7 fL (80.0-100.0); Mean Platelet Volume 8.9; Platelet Count 126 k/uL (150-450); RDW 17.2 % (11.5-15.5); WBC 5.4 k/uL (3.8-10.6)
[2019-01-08 08:18] LABS: Potassium 3.2 mmol/L (3.5-5.1)
[2019-01-08 08:37] LABS: Band Neutrophils % 2 %; Lymphocytes # (M) 0.16 k/uL (1.0-4.8); Monocytes # (M) 0.59 k/uL (0-1.0); Neutrophils % (M) 84 %; Nucleated Red Blood Cells 0 /100 WBC (0-0); Total Cells Counted 100
[2019-01-08] MEDS ORDERED: FUROSEMIDE 40 MG TAB PO SCH (09:00)
[2019-01-08] MEDS ORDERED: Potassium Replacement Protocol 1 EACH MISC MISCELLANE PRN (09:10)
--- NOTE | 2019-01-08 10:08 | ECHOF ---
Referral Reason:cad MEASUREMENTS -------- HEIGHT: 162.6 cm WEIGHT: 83.5 kg BP: 121/81 RVIDd: 2.9 cm (< 3.3) IVSd: 1.4 cm (0.6 - 1.1) LVIDd: 3.7 cm (3.9 - 5.3) LVPWd: 1.2 cm (0.6 - 1.1) IVSs: 2.0 cm LVIDs: 2.3 cm LVPWs: 1.9 cm Ao Diam: 3.1 cm (2.0 - 3.7) AV Cusp: 2.4 cm (1.5 - 2.6) MV EXCURSION: 16.312 mm (> 18.000) MV EF SLOPE: 75 mm/s (70 - 150) EPSS: 1.0 cm MV E Bereket: 0.51 m/s MV DecT: 284 ms MV A [place]re[place]: 0.91 m/s MV E/A Ratio: 0.56 FINDINGS -------- Sinus rhythm. This was a technically difficult study with suboptimal views. The left ventricular size is normal. There is moderate concentric left ventricular hypertrophy. O verall left ventricular systolic function is normal with, an EF between 55 - 60 %. The right ventricle is normal in size. The left atrium was not well visualized. The right atrium was not well visualized. 3 ml of Lumason was utilized for enhancement of images. The aortic valve was not well visualized. The mitral valve was not well visualized. The tricuspid valve was not well visualized. The pulmonic valve was not well visualized. The aortic root size is normal. There is no pericardial effusion. CONCLUSIONS -------- 1. Sinus rhythm. 2. This was a technically difficult study with suboptimal views. 3. The left ventricular size is normal. 4. There is moderate concentric left ventricular hypertrophy. 5. Overall left ventricular systolic function is normal with, an EF between 55 - 60 %. 6. The right ventricle is normal in size. 7. The left atrium was not well visualized. 8. The right atrium was not well visualized. 9. 3 ml of Lumason was utilized for enhancement of images. 10. The aortic valve was not well visualized. 11. The mitral valve was not well visualized. 12. The tricuspid valve was not well visualized. 13. The pulmonic valve was not well visualized. 14. The aortic root size is normal. 15. There is no pericardial effusion. [employer] REPA[employer] TECHNICIAN: Sherine Salgado RDCS
[2019-01-08] MEDS: ASPIRIN 81 MG PO SCH (10:51)
[2019-01-08] MEDS: METHYL SALICYLATE/MENTHOL CREAM 5 OZ TOPICAL SCH ×2 (10:51→21:54)
[2019-01-08] MEDS: CHOLECALCIFEROL 1,000 UNIT TAB PO SCH (10:52)
[2019-01-08] MEDS: FINASTERIDE 5 MG TAB PO SCH (10:52)
[2019-01-08] MEDS: GABAPENTIN 100 MG CAP PO SCH ×2 (10:52→21:54)
[2019-01-08] MEDS: TAMSULOSIN 0.4 MG CAP.ER.24H PO SCH ×2 (10:52→21:54)
[2019-01-08] MEDS: CLOPIDOGREL 75 MG TAB PO SCH (10:52)
[2019-01-08] MEDS: METOPROLOL TARTRATE 25 MG TAB PO SCH ×2 (10:52→21:54)
[2019-01-08] MEDS: FERROUS SULFATE 325 MG TAB PO SCH (10:52)
[2019-01-08] MEDS: POTASSIUM CHLORIDE ER 20 MEQ TAB.ER PO SCH ×2 (10:53→13:29)
[2019-01-08 11:39] LABS: Glucose,Whole Blood 173 mg/dL (75-99)
[2019-01-08] MEDS ORDERED: LACTATED RINGERS 1,000 ML IV SCH (14:30)
[2019-01-08 14:50] VITALS: BMI 32.7
--- NOTE | 2019-01-08 15:13 | HP ---
HISTORY AND PHYSICAL ADDENDUM: INVESTIGATIONS: EKG personally reviewed by me showed right bundle branch block. Chest x-ray film personally reviewed by me shows no obvious evidence of fluid overload, possible right middle zone infiltrate. ASSESSMENT: Possible right middle lobe pneumonia with no leukocytosis, no fever, minimal respiratory symptoms if any. Will put the patient on oral antibiotic. MMODL / IJN: [id number] /
--- NOTE | 2019-01-08 15:13 | HP ---
HISTORY AND PHYSICAL DATE OF ADMISSION: 01/07/2019 DATE OF SERVICE: 01/08/2019 PRESENTING COMPLAINT: Tired. HISTORY OF PRESENTING COMPLAINT: This is a pleasant 73-year-old patient of Dr. Norton. Patient used to follow up with Dr. Jordan but now switched his family doctor. Patient has been at the [facility] for a few months and was discharged in August. Patient's chronic stable medical conditions include coronary bypass, diabetes mellitus type 2, COPD, right nephrectomy, chronic kidney disease, hypertension, BPH, paroxysmal atrial fibrillation. Up to about 4 days ago, the patient was actually using a walker to get from the bedroom to the bathroom. He states that his son make sandwiches typically out of bread and he really cannot have sandwiches because of his teeth problem and has not really eaten for 5 days. He is feeling weak, tired, run down. Denies any shortness of breath. No chest pain. Has been otherwise having bowel movement, just feels tired, run down. Patient's is at the long-term. Patient in the ER was found to have an elevated BUN and creatinine, which is normal previously. Patient also had a blip in his troponin and Cardiology was consulted for the same. For his lunch actually patient ate all his sweet potato, was eating his pudding and states his appetite is coming back. Given that he has some option of soft foods here. REVIEW OF SYSTEMS: CONSTITUTIONAL: Tired. HEENT: Decreased hearing. RESPIRATORY: Occasional short of breath. CARDIOVASCULAR: No chest pain. GASTROINTESTINAL: None. GENITOURINARY: BPH symptoms. DERMATOLOGICAL: None. HEMATOLOGICAL: None. LYMPHATIC: None. PSYCHIATRY: Feels a bit rundown. NEUROLOGICAL: Does use a walker. PAST MEDICAL HISTORY: Coronary artery disease, COPD, diabetes, hyperlipidemia, hypertension, prostate cancer, radiation, incontinent of stool and urine. 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 SOCIAL HISTORY: Patient discharged from [facility] on 01/01/2019. Lives with his son. Has a wheelchair, walker. Patient smoked 3 packs a day from his teens until 1979. FAMILY HISTORY: Diabetes, coronary artery disease. HOME MEDICATIONS: 1. Levemir 15-25 units subcu q.h.s. 2. Lipitor 20 mg q.h.s. 3. Biofreeze 1 application topical b.i.d. 4. Iron 325 p.o. daily. 5. Neurontin 100 mg b.i.d. 6. Natural balance tears 0.4% 1 drop to both eyes q.1 p.r.n. 7. Proscar 5 mg a day. 8. Vitamin D3 five thousand units a day. 9. Mucinex 600 mg q.12. 10.Aspirin 81 mg a day. 11.DuoNeb q.i.d. 12.Lasix 20 mg b.i.d. 13.Plavix 75 mg a day. 14.Flomax 0.4 mg b.i.d. 15.Metoprolol 12.5 p.o. b.i.d. 16.Tylenol 650 mg q.6 p.r.n. ALLERGIES: None. PHYSICAL EXAMINATION: VITAL SIGNS ON PRESENTATION: Temperature 98.9, pulse 87, respiration 20, blood pressure 117/77, pulse ox 99% on 2 L. GENERAL APPEARANCE: Well built, BMI 32.9. Sitting up, tired appearing. EYES: Pupils equal, conjunctivae are normal. HEENT: External appearance of nose and ears normal, oral cavity missing dentition. NECK: JVD unable to assess. Mass not palpable. RESPIRATORY: Effort normal. LUNGS: Decreased breath sounds. CARDIOVASCULAR: First and second sounds are normal. No edema. ABDOMEN: Soft, nontender. Liver and spleen not palpable. LYMPHATIC: No lymph node palpable. PSYCHIATRY: Alert and oriented x3. Mood and affect slightly low-appearing. NEUROLOGICAL: Pupils equal. Cranial nerves grossly intact, moving all 4 limbs. MUSCULOSKELETAL: Evidence of osteoarthritis, especially hands and knees. INVESTIGATIONS: White count 5, hemoglobin 13, platelets 145, potassium 3.5, BUN 44, creatinine 1.30. Patient's creatinine on 12/21/2018 was 0.97, troponin 0.6, 0.4, 0.2. ASSESSMENT: 1. Progressive asthenia, weakness, tiredness from poor oral intake, leading to acute renal failure. Creatinine had gone from 0.9-1.32. Note that the patient is also on Lasix. 2. Troponin leak in the setting of acute renal failure. 3. Acute renal failure from poor oral intake. 4. Coronary artery disease with recent coronary bypass. 5. Chronic obstructive pulmonary disease in an ex-smoker. 6. Diabetes mellitus type 2 on oral hypoglycemic. 7. Hyperlipidemia. 8. Essential hypertension. 9. Chronic urine incontinence. 10.Chronic gait dysfunction, uses a walker. 11.Right nephrectomy. PLAN: Cardiology was consulted from the ER. A 2D echocardiogram was carried out, showed the EF of 55%-60%. Home medications are resumed. Will hydrate the patient gently overnight. Did speak to the caser shoe parts Ksenia to see if patient can get softer food at home and maybe also communicate with his son the same. Get input from Cardiology. Care was discussed with the patient. Questions were answered. MMODL / IJN: [id number] /
--- NOTE | 2019-01-08 15:29 | P.PN ---
Subjective Progress Note Date: 01/08/19 This pleasant 73-year-old gentleman history of non-ST segment elevation TN in August at which time he was found to have severe triple vessel disease and underwent coronary artery bypass grafting with CHAHAL to the LAD, SVG to the RCA and SVG to the OM. At that time he was found to have severely impaired LV systolic function. He was discharged to [facility] for rehab and was recently discharged from there. Presented with complaints of progressive fatigue and lack of energy. He is maintaining sinus rhythm. Vital signs are stable. Continues to complain of feeling tired and fatigued. 2-D echo with Doppler this admission showed a normal LV systolic function. Objective - Vital Signs Vital signs: Vital Signs Temp 97.9 F 01/08/19 12:00 Pulse 62 01/08/19 12:00 Resp 16 01/08/19 12:00 BP 115/57 01/08/19 12:00 Pulse Ox 94 L 01/08/19 12:00 Intake & Output 01/07/19 01/08/19 01/08/19 18:59 06:59 18:59 Intake Total 261.886 240 Output Total 175 Balance 86.886 240 Weight 83.461 kg 86.5 kg 86.5 kg Intake: IV 160 0.9 160 Intake, IV Titration 101.886 Amount Heparin Sod,Pork in 0.45% 101.886 NaCl 25,000 unit In 0.45 % NaCl 1 250ml.bag @ 18 UNITS/KG/HR 15.02 mls/hr IV .[id number] [facility] Rx#: [id number] Oral 240 Output: Urine 175 Other: Voiding Method Diaper Diaper Urinal # Voids 1 # Bowel Movements 1 1 - Exam PHYSICAL EXAMINATION: HEENT: Head is atraumatic, normocephalic. Pupils equal, round. Neck is supple. There is no elevated jugular venous pressure. HEART EXAMINATION: Heart sounds regular, S1 and S2 normal. No murmur or gallop heard. CHEST EXAMINATION: Lungs show expiratory wheezing throughout. No chest wall tenderness is noted on palpation or with deep breathing. ABDOMEN: Soft, nontender. Bowel sounds are heard. No organomegaly noted. EXTREMITIES: 2+ peripheral pulses with no evidence of peripheral edema and no calf tenderness noted. NEUROLOGIC patient is awake, alert and oriented x3. . - Labs CBC & Chem 7: 01/08/19 07:18 01/08/19 07:18 Labs: Abnormal Lab Results - Last 24 Hours (Table) 01/07/19 01/07/19 01/07/19 Range/Units 14:20 18:14 20:18 RBC (4.30-5.90) m/uL Hgb (13.0-17.5) gm/dL Hct (39.0-53.0) % RDW (11.5-15.5) % Plt Count (150-450) k/uL Lymphocytes # (Manual) (1.0-4.8) k/uL APTT (22.0-30.0) sec Potassium (3.5-5.1) mmol/L BUN (9-20) mg/dL Creatinine (0.66-1.25) mg/dL Glucose (74-99) mg/dL POC Glucose (mg/dL) 113 H 112 H (75-99) mg/dL Troponin I (0.000-0.034) ng/mL Urine WBC >182 H (0-5) /hpf 01/07/19 01/07/19 01/08/19 Range/Units 23:26 23:26 06:06 RBC (4.30-5.90) m/uL Hgb (13.0-17.5) gm/dL Hct (39.0-53.0) % RDW (11.5-15.5) % Plt Count (150-450) k/uL Lymphocytes # (Manual) (1.0-4.8) k/uL APTT 186.7 H* (22.0-30.0) sec Potassium (3.5-5.1) mmol/L BUN (9-20) mg/dL Creatinine (0.66-1.25) mg/dL Glucose (74-99) mg/dL POC Glucose (mg/dL) 111 H (75-99) mg/dL Troponin I 0.422 H* (0.000-0.034) ng/mL Urine WBC (0-5) /hpf 01/08/19 01/08/19 01/08/19 Range/Units 07:18 07:18 07:18 RBC 4.20 L (4.30-5.90) m/uL Hgb 11.5 L (13.0-17.5) gm/dL Hct 36.8 L (39.0-53.0) % RDW 17.2 H (11.5-15.5) % Plt Count 126 L (150-450) k/uL Lymphocytes # (Manual) 0.16 L (1.0-4.8) k/uL APTT (22.0-30.0) sec Potassium 3.2 L (3.5-5.1) mmol/L BUN 51 H (9-20) mg/dL Creatinine 1.32 H (0.66-1.25) mg/dL Glucose 106 H (74-99) mg/dL POC Glucose (mg/dL) (75-99) mg/dL Troponin I 0.278 H* (0.000-0.034) ng/mL Urine WBC (0-5) /hpf 01/08/19 Range/Units 11:31 RBC (4.30-5.90) m/uL Hgb (13.0-17.5) gm/dL Hct (39.0-53.0) % RDW (11.5-15.5) % Plt Count (150-450) k/uL Lymphocytes # (Manual) (1.0-4.8) k/uL APTT (22.0-30.0) sec Potassium (3.5-5.1) mmol/L BUN (9-20) mg/dL Creatinine (0.66-1.25) mg/dL Glucose (74-99) mg/dL POC Glucose (mg/dL) 173 H (75-99) mg/dL Troponin I (0.000-0.034) ng/mL Urine WBC (0-5) /hpf Microbiology - Last 24 Hours (Table) 01/07/19 14:20 Urine Culture - Preliminary Urine,Voided Assessment and Plan Assessment: 1 symptoms of progressive lack of energy, no clear etiology, has apparently not been eating well at home #2 elevation of NT proBNP and a patient with prior history of cardiomyopathy, no overt signs of heart failure #3 chronic renal failure #4 hypertension #5 hyperlipidemia #6 diabetes Plan: Cardiology's perspective, we will decrease Lasix. Continue other medications as ordered. We will continue to follow the patient provide further recommendations accordingly. OVERNIGHT HOUSEPERSON note has been reviewed, I agree with a documented findings and plan of care. Patient was seen and examined.
[2019-01-08] MEDS ORDERED: ASPIRIN 325 MG TAB PO SCH (15:36)
[2019-01-08 16:43] LABS: Glucose,Whole Blood 180 mg/dL (75-99)
[2019-01-08 20:25] LABS: Glucose,Whole Blood 132 mg/dL (75-99)
[2019-01-08] MEDS: INSULIN DETEMIR (LEVEMIR) 100 UNIT/ML SYR SQ SCH (21:51)
[2019-01-08] MEDS: ATORVASTATIN 20 MG TAB PO SCH (21:54)
[2019-01-08] MEDS: CEFDINIR 300 MG CAP PO SCH (21:54)
[2019-01-09 05:34] LABS: Glucose,Whole Blood 154 mg/dL (75-99)
[2019-01-09] MEDS: INSULIN ASPART (NovoLOG) 100 UNIT/ML VIAL SQ SCH ×4 (06:16→20:45)
[2019-01-09 08:12] LABS: Anisocytosis Slight; HGB 11.1 gm/dL (13.0-17.5); Hypochromasia Moderate; MCH 27.8 pg (25.0-35.0); MCHC 31.7 g/dL (31.0-37.0); MCV 87.7 fL (80.0-100.0); Mean Platelet Volume 8.1; Platelet Count 126 k/uL (150-450); RBC 3.99 m/uL (4.30-5.90); RDW 16.9 % (11.5-15.5); WBC 5.8 k/uL (3.8-10.6)
[2019-01-09 08:13] LABS: Calcium 8.9 mg/dL (8.4-10.2); Potassium 3.4 mmol/L (3.5-5.1)
[2019-01-09] MEDS: ASPIRIN 81 MG PO SCH (09:51)
[2019-01-09] MEDS: CEFDINIR 300 MG CAP PO SCH ×2 (09:51→19:45)
[2019-01-09] MEDS: TAMSULOSIN 0.4 MG CAP.ER.24H PO SCH ×2 (09:52→19:45)
[2019-01-09] MEDS: FUROSEMIDE 40 MG TAB PO SCH (09:52)
[2019-01-09] MEDS: METOPROLOL TARTRATE 25 MG TAB PO SCH ×2 (09:52→19:45)
[2019-01-09] MEDS: METHYL SALICYLATE/MENTHOL CREAM 5 OZ TOPICAL SCH ×2 (09:52→19:46)
[2019-01-09] MEDS: CLOPIDOGREL 75 MG TAB PO SCH (09:52)
[2019-01-09] MEDS: GABAPENTIN 100 MG CAP PO SCH ×2 (09:52→19:46)
[2019-01-09] MEDS: FERROUS SULFATE 325 MG TAB PO SCH (09:52)
[2019-01-09] MEDS: CHOLECALCIFEROL 1,000 UNIT TAB PO SCH (09:52)
[2019-01-09] MEDS: FINASTERIDE 5 MG TAB PO SCH (09:52)
[2019-01-09 11:03] LABS: Lymphocytes # (M) 0.29 k/uL (1.0-4.8); Monocytes # (M) 0.52 k/uL (0-1.0); Neutrophils # (M) 4.99 k/uL (1.3-7.7); Neutrophils % (M) 86 %; Nucleated Red Blood Cells 0 /100 WBC (0-0); Total Cells Counted 100
[2019-01-09 11:07] LABS: Glucose,Whole Blood 260 mg/dL (75-99)
--- NOTE | 2019-01-09 15:46 | PN ---
PROGRESS NOTE Mr. Perez is a 73-year-old male with a history of coronary artery disease status post coronary artery bypass grafting, prior history of cardiomyopathy. He is feeling better today. He is still short of breath and tired. He denies any dizziness. No palpitation. He denies any nausea. He continues to be at this time on aspirin once a day Lipitor 40 mg daily, Plavix 75 mg daily, furosemide 40 mg orally daily, insulin, metoprolol tartrate 25 mg twice a day. PHYSICAL EXAMINATION: Blood pressure 118/60 with a heart in 50s. Lungs no wheezes. HEART: Regular rate and rhythm S1, S2. No S3 with a systolic murmur. No diastolic murmur. No rub. ABDOMEN: Soft and nontender. EXTREMITIES: No edema. LAB DATA: BUN and creatinine 1.26 and 42, potassium 3.4 hemoglobin of 11.1. IMPRESSION: 1. Prior history of cardiomyopathy, improved. Post bypass. 2. Status post coronary artery bypass grafting. 3. Progressive fatigue. 4. Hyperlipidemia. 5. Renal failure improving. RECOMMENDATION: From the cardiac standpoint, I will continue present therapy. We will increase his level of activity. Follow his renal function. Replace his potassium and depending on his progress, further recommendations will be made. MMODL / IJN: [id number] /
[2019-01-09 16:45] LABS: Glucose,Whole Blood 171 mg/dL (75-99)
[2019-01-09] MEDS: POTASSIUM CHLORIDE ER 20 MEQ TAB.ER PO SCH (17:51)
[2019-01-09] MEDS: ATORVASTATIN 20 MG TAB PO SCH (19:45)
[2019-01-09 20:33] LABS: Glucose,Whole Blood 229 mg/dL (75-99)
[2019-01-09] MEDS: INSULIN DETEMIR (LEVEMIR) 100 UNIT/ML SYR SQ SCH (21:43)
--- NOTE | 2019-01-09 22:38 | PN ---
PROGRESS NOTE DATE OF SERVICE: 01/09/2019 INTERVAL HISTORY: The patient admitted feeling weak, tired, pneumonia, on antibiotics. Also found to be in acute renal failure. The patient ate a little bit better today. PT/OT is recommending ECF. She does feel a bit tired. REVIEW OF SYSTEMS: Done for constitutional, cardiovascular, GI, pulmonary and relevant findings as above. CURRENT MEDICATIONS: Reviewed that include Omnicef. PHYSICAL EXAMINATION: VITAL SIGNS: Temperature 98.9. Pulse 53. Respiration 20, blood pressure 118/59, pulse ox 99% on 2 L. GENERAL APPEARANCE: Sitting in bed, awake. EYES: Pupils equal. Conjunctivae normal. NECK: JVD unable to assess. Mass not palpable. RESPIRATORY: Effort normal. LUNGS: Diminished breath sounds. CARDIOVASCULAR: First and second sounds normal. No edema. ABDOMEN: Soft, nontender. Liver and spleen not palpable. PSYCHIATRY: Awake, answering questions. Tired-appearing. INVESTIGATIONS: White count 5.8, hemoglobin 11.1, potassium 3.4, BUN 42, creatinine 1.26. ASSESSMENT: 1. Progressive asthenia weakness, tired from acute renal failure. Feels a bit better. 2. Troponin leak in a setting of acute renal failure. 3. Coronary artery disease with recent coronary artery bypass. 4. Chronic obstructive pulmonary disease in an ex-smoker. 5. Diabetes mellitus type 2 on oral hypoglycemic. 6. Hyperlipidemia. 7. Essential hypertension. 8. Chronic urine incontinence. 9. Chronic gait dysfunction uses a walker. 10.Right nephrectomy. 11.Medical debility. PLAN: Continue current medication and treatment plan. The patient looking at possibly going to the ECF and follow with Case Management. MMODL / IJN: [id number] /
[2019-01-10 07:12] LABS: Glucose,Whole Blood 135 mg/dL (75-99)
[2019-01-10 07:26] LABS: Anisocytosis Slight; Basophils % (A) 0 %; Eosinophils # (A) 0.1 k/uL (0-0.7); Eosinophils % (A) 2 %; HCT 35.9 % (39.0-53.0); HGB 11.1 gm/dL (13.0-17.5); Hypochromasia Moderate; Lymphocytes # (A) 0.6 k/uL (1.0-4.8); Lymphocytes % (A) 11 %; MCH 26.7 pg (25.0-35.0); MCHC 30.8 g/dL (31.0-37.0); MCV 86.7 fL (80.0-100.0); Mean Platelet Volume 8.1; Monocytes # (A) 0.3 k/uL (0-1.0); Monocytes % (A) 6 %; Neutrophils # (A) 4.2 k/uL (1.3-7.7); Neutrophils % (A) 78 %; Platelet Count 149 k/uL (150-450); Poikilocytosis Slight; RBC 4.15 m/uL (4.30-5.90); RDW 16.8 % (11.5-15.5); WBC 5.4 k/uL (3.8-10.6)
[2019-01-10 07:45] LABS: Potassium 3.5 mmol/L (3.5-5.1)
[2019-01-10] MEDS: GABAPENTIN 100 MG CAP PO SCH ×2 (08:16→21:00)
[2019-01-10] MEDS: CHOLECALCIFEROL 1,000 UNIT TAB PO SCH (08:16)
[2019-01-10] MEDS: ASPIRIN 81 MG PO SCH (08:16)
[2019-01-10] MEDS: FERROUS SULFATE 325 MG TAB PO SCH (08:16)
[2019-01-10] MEDS: CLOPIDOGREL 75 MG TAB PO SCH (08:16)
[2019-01-10] MEDS: TAMSULOSIN 0.4 MG CAP.ER.24H PO SCH ×2 (08:16→21:01)
[2019-01-10] MEDS: POTASSIUM CHLORIDE ER 20 MEQ TAB.ER PO SCH (08:16)
[2019-01-10] MEDS: METOPROLOL TARTRATE 25 MG TAB PO SCH ×2 (08:16→21:01)
[2019-01-10] MEDS: FUROSEMIDE 40 MG TAB PO SCH (08:16)
[2019-01-10] MEDS: INSULIN ASPART (NovoLOG) 100 UNIT/ML VIAL SQ SCH ×4 (08:18→21:01)
[2019-01-10] MEDS: METHYL SALICYLATE/MENTHOL CREAM 5 OZ TOPICAL SCH ×2 (10:01→21:04)
[2019-01-10] MEDS: CEFDINIR 300 MG CAP PO SCH ×2 (10:01→21:36)
[2019-01-10] MEDS: FINASTERIDE 5 MG TAB PO SCH (10:01)
[2019-01-10 11:08] LABS: Glucose,Whole Blood 206 mg/dL (75-99)
[2019-01-10 17:15] LABS: Glucose,Whole Blood 163 mg/dL (75-99)
[2019-01-10 20:51] LABS: Glucose,Whole Blood 147 mg/dL (75-99)
[2019-01-10] MEDS: ATORVASTATIN 20 MG TAB PO SCH (21:00)
[2019-01-10] MEDS: INSULIN DETEMIR (LEVEMIR) 100 UNIT/ML SYR SQ SCH (21:01)
[2019-01-10 23:30] VITALS: RESP 16
--- NOTE | 2019-01-11 00:39 | PN ---
PROGRESS NOTE DATE OF SERVICE: January 10, 2019. PRESENTING COMPLAINT: Patient presented really weak and tired. Pneumonia, on antibiotics. Also found to be in acute renal failure. Doing better. Appetite is picked up quite a bit. PT/OT has recommended ECF. REVIEW OF SYSTEMS: Done for constitutional, cardiovascular, GI, pulmonary; relevant findings as above. CURRENT MEDICATIONS: Reviewed. PHYSICAL EXAMINATION: VITAL SIGNS: Temperature 98, pulse 50, respiratory rate 20, blood pressure 125/68, pulse ox 94 percent on room air. GENERAL APPEARANCE: Sitting up, comfortable. EYES: Pupils are equal. Conjunctivae normal. NECK: JVD not raised. Mass not palpable. RESPIRATORY: Effort normal. LUNGS: Decreased breath sounds. CARDIOVASCULAR: 1st and 2nd sounds normal. No edema. ABDOMEN: Soft, nontender. Liver and spleen not palpable. PSYCHIATRY: Awake, answering questions appropriately. INVESTIGATIONS: BUN 32, creatinine 0.97. Accu-Cheks are noted. ASSESSMENT: 1. Acute renal failure likely prerenal improved. 2. Troponin leak in the setting of acute renal failure. 3. Coronary artery disease with recent history of coronary bypass. 4. Chronic obstructive pulmonary disease in an ex-smoker. 5. Diabetes mellitus type 2 on oral hypoglycemics. 6. Hyperlipidemia. 7. Essential hypertension. 8. Chronic urine incontinence. 9. Chronic gait dysfunction, uses a walker. 10.Right nephrectomy. 11.Medical debility. PLAN: Patient is doing much better. Should be able to go to the ECF when cleared by Case Management. MMODL / IJN: [id number] /
[2019-01-11 06:20] VITALS: BP 122/62; PULSE 73; TEMP 98.4
[2019-01-11 07:26] LABS: Glucose,Whole Blood 101 mg/dL (75-99)
[2019-01-11] MEDS: INSULIN ASPART (NovoLOG) 100 UNIT/ML VIAL SQ SCH ×2 (08:03→12:36)
[2019-01-11] MEDS: CLOPIDOGREL 75 MG TAB PO SCH (08:04)
[2019-01-11] MEDS: FUROSEMIDE 40 MG TAB PO SCH (08:04)
[2019-01-11] MEDS: GABAPENTIN 100 MG CAP PO SCH (08:04)
[2019-01-11] MEDS: FERROUS SULFATE 325 MG TAB PO SCH (08:04)
[2019-01-11] MEDS: CHOLECALCIFEROL 1,000 UNIT TAB PO SCH (08:04)
[2019-01-11] MEDS: TAMSULOSIN 0.4 MG CAP.ER.24H PO SCH (08:04)
[2019-01-11] MEDS: CEFDINIR 300 MG CAP PO SCH (08:04)
[2019-01-11] MEDS: FINASTERIDE 5 MG TAB PO SCH (08:05)
[2019-01-11] MEDS: METHYL SALICYLATE/MENTHOL CREAM 5 OZ TOPICAL SCH (08:05)
[2019-01-11] MEDS: ASPIRIN 81 MG PO SCH (08:05)
[2019-01-11] MEDS: METOPROLOL TARTRATE 25 MG TAB PO SCH (08:08)
[2019-01-11 08:09] LABS: Anisocytosis Slight; Basophils % (A) 1 %; Eosinophils # (A) 0.1 k/uL (0-0.7); Eosinophils % (A) 3 %; HCT 35.9 % (39.0-53.0); HGB 11.2 gm/dL (13.0-17.5); Hypochromasia Moderate; Lymphocytes # (A) 0.7 k/uL (1.0-4.8); Lymphocytes % (A) 13 %; MCH 26.9 pg (25.0-35.0); MCHC 31.3 g/dL (31.0-37.0); MCV 85.9 fL (80.0-100.0); Mean Platelet Volume 7.7; Monocytes # (A) 0.3 k/uL (0-1.0); Monocytes % (A) 6 %; Neutrophils # (A) 4.2 k/uL (1.3-7.7); Neutrophils % (A) 76 %; Platelet Count 177 k/uL (150-450); RBC 4.18 m/uL (4.30-5.90); RDW 16.7 % (11.5-15.5); WBC 5.5 k/uL (3.8-10.6)
[2019-01-11] MEDS: POTASSIUM CHLORIDE ER 20 MEQ TAB.ER PO SCH (08:09)
[2019-01-11 11:10] LABS: Glucose,Whole Blood 185 mg/dL (75-99)
--- NOTE | 2019-01-11 18:16 | DS ---
DISCHARGE SUMMARY DATE OF ADMISSION: 01/07/2019. DATE OF DISCHARGE: 01/11/2019. FINAL DIAGNOSES: 1. Acute renal failure, likely prerenal, POA. 2. Troponin leak in the setting of acute renal failure, not acute coronary syndrome. 3. Coronary artery disease with recent history of coronary artery bypass. 4. Chronic obstructive pulmonary disease in an ex-smoker. 5. Diabetes mellitus type 2 on oral hypoglycemic. 6. Hyperlipidemia. 7. Essential hypertension. 8. Chronic urine incontinence. 9. Chronic gait dysfunction uses a walker. 10.Right nephrectomy, history of. 11.Medical debility. 12. CONSULTATION: Dr. Marcano from Cardiology. HOSPITAL COURSE: This patient presented weak and tired, run down, who was recently at the [facility]. The patient is not able to eat any food at home because his son was only making sandwiches. As a result the patient had not been eating for 5 days. He came into the hospital with acute renal failure. Creatinine was 1.3, did come down to 0.9 by the time of discharge. Patient seen by Cardiology. The patient was seen by physical therapy. Recommended inpatient rehab. The patient did not want to do the same and the son will be taking him back to home. Care was discussed at length with the patient and also social worker health services Denzel meier. Coordination of care and DC planning more than 35 minutes. PHYSICAL EXAMINATION: On examination, temperature 98.4, pulse 73, respiratory rate 16, blood pressure 122/62. INVESTIGATIONS: BUN 32, creatinine 0.97, hemoglobin 11.1. Initially patient did have a 2-D echocardiogram that showed EF of 55-60 percent. V/Q scan, low probability. DISCHARGE MEDICATIONS: 1. Tylenol 650 mg q.6h p.r.n. 2. Plavix 75 mg a day. 3. DuoNeb q.i.d. plus p.r.n. 4. Flomax 0.4 mg b.i.d. 5. Aspirin 81 mg a day. 6. Lipitor 20 mg q.h.s. 7. Vitamin D3 5000 units p.o. daily. 8. Iron 325 p.o. daily. 9. Proscar 5 mg p.o. daily. 10.Neurontin 100 mg b.i.d. 11.Levemir subcu q.h.s. 12.Biofreeze topical b.i.d. 13.Natural tears 1 drop to both eyes p.r.n. 14.Omnicef 300 mg b.i.d. 6 capsules. 15.Lasix 40 mg p.o. daily. 16.Metoprolol 25 mg b.i.d. 17.Potassium 20 mEq p.o. daily. FOLLOWUP: Follow up with Dr. Norton on January 14, 2019. Follow up with [facility] nurses. Copy to Dr. Norton. MMANNALISEL / IJN: [id number] /
== END 2019-01-11 15:35 | disposition home health service (06) | DRG 682 ==
LOC: EC 11:24 → 3SCARD 15:35 → 3NMEDONC 01-09 23:25
PROVIDERS: ADMIT Hospitalist; ATTEND Hospitalist
DX: N17.9 Acute kidney failure, unspecified (principal); J18.9 Pneumonia, unspecified organism; I13.0 Hypertensive heart and chronic kidney disease with heart failure and stage 1 through stage 4 chronic kidney disease, or unspecified chronic kidney disease; I42.9 Cardiomyopathy, unspecified; J44.0 Chronic obstructive pulmonary disease with (acute) lower respiratory infection; N18.9 Chronic kidney disease, unspecified; W06.XXXA Fall from bed, initial encounter; E11.22 Type 2 diabetes mellitus with diabetic chronic kidney disease; E78.5 Hyperlipidemia, unspecified; I25.10 Atherosclerotic heart disease of native coronary artery without angina pectoris; I25.2 Old myocardial infarction; I48.0 Paroxysmal atrial fibrillation; I50.9 Heart failure, unspecified; R74.8 Abnormal levels of other serum enzymes; N40.1 Benign prostatic hyperplasia with lower urinary tract symptoms; R32 Unspecified urinary incontinence; R15.9 Full incontinence of feces; R62.7 Adult failure to thrive; R79.1 Abnormal coagulation profile; Z79.02 Long term (current) use of antithrombotics/antiplatelets; Z79.4 Long term (current) use of insulin; Z79.82 Long term (current) use of aspirin; Z79.899 Other long term (current) drug therapy; Z82.49 Family history of ischemic heart disease and other diseases of the circulatory system; Z83.3 Family history of diabetes mellitus; Z85.46 Personal history of malignant neoplasm of prostate; Z87.891 Personal history of nicotine dependence; Z90.5 Acquired absence of kidney; Z95.1 Presence of aortocoronary bypass graft; Z92.3 Personal history of irradiation; R26.9 Unspecified abnormalities of gait and mobility; I45.10 Unspecified right bundle-branch block
CPT/HCPCS: 36415; 71046; 78582; 80048; 80053; 80320; 81001; 82140; 82150; 82272; 82550; 82553; 83690; 83735; 83880; 84484; 85025; 85379; 85610; 85730; 87077; 87086; 87186; 87502; 93005; 93306; 96374; 99291

== ENCOUNTER 2019-02-05 22:26 | Emergency (ER) | payer MEDICARE, OTHER ==
[2019-02-05 22:38] VITALS: RESP 16; TEMP 97.8
[2019-02-05] MEDS ORDERED: MORPHINE SULFATE 4 MG/ML SYRINGE IM STA (22:45)
--- NOTE | 2019-02-05 22:48 | ED ---
General Adult HPI - General Chief complaint: Fall Stated complaint: Fall Time Seen by Provider: 02/05/19 22:27 Source: patient, EMS, RN notes reviewed Mode of arrival: EMS Limitations: no limitations - History of Present Illness Initial comments: 74-year-old male presents status post fall with head injury and complaint of neck pain and shoulder pain. Patient was transported by EMS status post fall while trying to transfer from bed to his wheelchair. He did have minor head trauma and began complaining of some neck pain. He was placed in a c-collar and transported to the emergency department. Initially patient had called EMS for lift assist and did not want to be transported however after some time he did allow for transfer. Denied chest pain. Denying abdominal pain. This was mechanical fall, no lower extremity injury, no back pain. Pain is localized to the lower neck and predominantly right shoulder. Patient is on Plavix history of CAD - Related Data Home Medications Medication Instructions Recorded Confirmed Aspirin [[place] Aspirin EC] 81 mg PO DAILY 01/07/19 02/05/19 Atorvastatin [Lipitor] 20 mg PO HS 01/07/19 02/05/19 Cholecalciferol [Vitamin D3] 5,000 unit PO DAILY 01/07/19 02/05/19 Ferrous Sulfate [Iron] 325 mg PO DAILY 01/07/19 02/05/19 Finasteride [Proscar] 5 mg PO DAILY 01/07/19 02/05/19 Gabapentin [Neurontin] 100 mg PO BID 01/07/19 02/05/19 Menthol [Biofreeze] 1 applic TOPICAL BID 01/07/19 02/05/19 Furosemide [Lasix] 20 mg PO BID 02/05/19 02/05/19 Metoprolol Tartrate 12.5 mg PO BID 02/05/19 02/05/19 Sertraline HCl [Zoloft] 50 mg PO DAILY 02/05/19 02/05/19 Previous Rx's Medication Instructions Recorded Acetaminophen Tab [Tylenol] 650 mg PO Q6HR PRN tab 09/03/18 Clopidogrel [Plavix] 75 mg PO DAILY tab 09/03/18 Tamsulosin [Flomax] 0.4 mg PO BID cap.er.24h 09/03/18 Potassium Chloride ER [K-Dur 20] 20 meq PO DAILY #30 tab.er.prt 01/11/19 HYDROcodone/APAP 5-325MG [[place] 1 tab PO Q6HR PRN #12 tab 02/06/19 5-325] Allergies Allergy/AdvReac Type Severity Reaction Status Date / Time No Known Allergies Allergy Verified 02/05/19 22:51 Review of Systems ROS Statement: Those systems with pertinent positive or pertinent negative responses have been documented in the HPI. ROS Other: All systems not noted in ROS Statement are negative. Past Medical History Past Medical History: Coronary Artery Disease (CAD), Cancer, COPD, Diabetes Mellitus, Hyperlipidemia, Hypertension, Myocardial Infarction (SD), Prostate Disorder Additional Past Medical History / Comment(s): prostate cancer with radiation > 20 years ago, nstemi, wears a brief incont urine/stool Last Myocardial Infarction Date:: 2017 History of Any Multi-Drug Resistant Organisms: ESBL, MRSA Date of last positivie culture/infection: 01/07/19 ESBL; 10/27/18 MRSA MDRO Source:: Urine-ESBL; Back-MRSA Past Surgical History: Coronary Bypass/CABG Additional Past Surgical History / Comment(s): 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,prostate bx, triple bypass 2017, bronchoscopy, picc line pt stated since removed Past Anesthesia/Blood Transfusion Reactions: No Reported Reaction Past Psychological History: No Psychological Hx Reported Smoking Status: Former smoker - Past Family History Father Additional Family Medical History / Comment(s): old age Mother Family Medical History: Coronary Artery Disease (CAD), Diabetes Mellitus Additional Family Medical History / Comment(s): CABG General Exam Limitations: no limitations General appearance: alert, in no apparent distress Head exam: Present: atraumatic, normocephalic Eye exam: Absent: 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 Absent: distended, tenderness, guarding Extremities exam: Present: normal inspection, normal capillary refill. Absent: pedal edema Neurological exam: Present: alert, oriented X3, CN II-XII intact. Absent: motor sensory deficit Psychiatric exam: Present: normal affect, normal mood Skin exam: Present: warm, dry, intact. Absent: cyanosis, diaphoretic Course Vital Signs 02/05/19 22:34 Temperature 97.8 F Pulse Rate 51 L Respiratory 16 Rate Blood Pressure 147/79 O2 Sat by Pulse 94 L Oximetry Medical Decision Making - Medical Decision Making 74-year-old male minor trauma while transferring to wheelchair. Complain predominantly of right shoulder pain, and neck pain. Patient placed in c-collar by EMS during transport. Patient is on Plavix and there was minor head trauma although no loss consciousness. Head CT is obtained, negative for i ntracranial hemorrhage or mass effect. CT cervical spine is negative for fracture, there is significant arthritis throughout the cervical spine. X-ray of the right shoulder negative for any acute bony mallet, chest x-ray shows a patchy opacity in the right mid lung which is chronic in nature, will require repeat x-ray or CT to ensure resolution. Patient given 1 dose of intramuscular morphine, symptoms improved, range of motion at bilateral shoulders is improved. Patient has good strength in the upper extremities. He will be discharged home with close outpatient follow-up. He does have his son at home. Disposition Clinical Impression: Fall, Shoulder contusion Disposition: HOME SELF-CARE Condition: Fair Instructions (If sedation given, give patient instructions): Fall Prevention for Older Adults (ED), Shoulder Sprain (ED), Cervical Strain (ED) Prescriptions: HYDROcodone/APAP 5-325MG [[place] 5-325] 1 tab PO Q6HR PRN #12 tab PRN Reason: Pain Is patient prescribed a controlled substance at d/c from ED?: No Referrals: Joy Reagan DO [Primary Care Provider] - 1-2 days Time of Disposition: 00:17
--- NOTE | 2019-02-05 23:29 | XR ---
EXAM: XR Chest, 2 Views CLINICAL HISTORY: ITS.REASON XR Reason: Pain TECHNIQUE: Frontal and lateral views of the chest. COMPARISON: Chest x-ray dated 01/07/2019. FINDINGS: Lungs: Reidentified patchy opacity in the right midlung, which is nonspecific. Pleural space: Unremarkable. No pneumothorax. Heart: Unremarkable. No cardiomegaly. Mediastinum: Unremarkable. Bones/joints: Prior sternotomy. Upper abdomen: Reidentified asymmetric elevation of the right hemidiaphragm. IMPRESSION: Reidentified patchy opacity in the right midlung, which is nonspecific. Given its nonresolution, further catheterization noncontrast CT chest is suggested.
--- NOTE | 2019-02-05 23:30 | XR ---
EXAM: XR Right Shoulder Complete, 2 or More Views CLINICAL HISTORY: ITS.REASON XR Reason: Pain TECHNIQUE: Two or more views of the right shoulder. COMPARISON: No relevant prior studies available. FINDINGS: Bones/joints: Mild degenerative changes of the shoulder joint. No acute fracture. No dislocation. Soft tissues: Unremarkable. IMPRESSION: No acute findings.
--- NOTE | 2019-02-05 23:50 | CT ---
EXAM: CT Head Without Intravenous Contrast CLINICAL HISTORY: ITS.REASON CT Reason: Pain TECHNIQUE: Axial computed tomography images of the head/brain without intravenous contrast. CTDI is 45.2 mGy and DLP is 1059 mGy-cm. This CT exam was performed using one or more of the following dose reduction techniques: automated exposure control, adjustment of the mA and/or kV according to patient size, and/or use of iterative reconstruction technique. COMPARISON: No relevant prior studies available. FINDINGS: Brain: No evidence of acute intracranial hemorrhage. Mild presumed small vessel ischemic disease. No mass effect or herniation. Ventricles: Unremarkable. No ventriculomegaly. Bones/joints: No acute fracture. Soft tissues: Unremarkable. Vasculature: There is calcification of the distal internal carotid arteries and vertebrobasilar system. Sinuses: Unremarkable as visualized. Mastoid air cells: Unremarkable as visualized. IMPRESSION: 1. No evidence of acute intracranial hemorrhage. 2. Mild presumed small vessel ischemic disease. EXAM: CT Cervical Spine Without Intravenous Contrast CLINICAL HISTORY: ITS.REASON CT Reason: Pain TECHNIQUE: Axial computed tomography images of the cervical spine without intravenous contrast. CTDI is 14 mGy and DLP is 433.7 mGy-cm. This CT exam was performed using one or more of the following dose reduction techniques: automated exposure control, adjustment of the mA and/or kV according to patient size, and/or use of iterative reconstruction technique. COMPARISON: No relevant prior studies available. FINDINGS: Vertebrae: Mild retrolisthesis of C3 on C4 and C4 and C5 is presumably degenerative. No acute fracture. Discs/spinal canal/neural foramina: Large intra-flowing osteophytes at the C5-C7 levels. No spinal canal stenosis. Other bones/joints: Chronic fracture deformities of the left first through third ribs. Soft tissues: Unremarkable. Lung apices: Only partially imaged airspace consolidation in the right midlung. IMPRESSION: 1. No evidence of acute fracture. No prevertebral soft tissue swelling. 2. Only partially imaged airspace consolidation in the right midlung. This may represent pneumonia in the appropriate setting among other etiologies. Given its stability from the prior x-ray, complete chest imaging is suggested. 3. Chronic fracture deformities of the left first through third ribs.
[2019-02-06] MEDS ORDERED: HYDROcodone/APAP 5-325MG 1 EACH TAB PO STA (01:11)
[2019-02-06 01:13] VITALS: BP 150/75; PULSE 55
== END 2019-02-06 01:26 | disposition home or self-care (01) ==
LOC: EC 22:26 → SUPCPDRO 22:26 → EC 02-06 01:26
DX: S40.011A Contusion of right shoulder, initial encounter (principal); M46.92 Unspecified inflammatory spondylopathy, cervical region; R91.8 Other nonspecific abnormal finding of lung field; H54.61 Unqualified visual loss, right eye, normal vision left eye; R06.03 Acute respiratory distress; R00.1 Bradycardia, unspecified; M54.2 Cervicalgia; S09.90XA Unspecified injury of head, initial encounter; E78.5 Hyperlipidemia, unspecified; I10 Essential (primary) hypertension; I25.10 Atherosclerotic heart disease of native coronary artery without angina pectoris; I25.2 Old myocardial infarction; Z87.891 Personal history of nicotine dependence; Z79.02 Long term (current) use of antithrombotics/antiplatelets; Z79.82 Long term (current) use of aspirin; Z79.899 Other long term (current) drug therapy; Z86.14 Personal history of Methicillin resistant Staphylococcus aureus infection; Z85.46 Personal history of malignant neoplasm of prostate; Z95.1 Presence of aortocoronary bypass graft; Z90.5 Acquired absence of kidney; Z82.49 Family history of ischemic heart disease and other diseases of the circulatory system; W19.XXXA Unspecified fall, initial encounter; Y93.89 Activity, other specified; Y92.009 Unspecified place in unspecified non-institutional (private) residence as the place of occurrence of the external cause
CPT/HCPCS: 73030; 71046; 72125; 70450; 99284; 96372; J2270

== ENCOUNTER → 2019-03-11 | Outpatient (CLI) | payer MEDICARE, OTHER ==
[2019-03-11 12:41] LABS: Appearance,Urine Clear (Clear); Bacteria,Urine Moderate /hpf; Bilirubin,Urine Negative (Negative); Blood,Urine Negative (Negative); Color,Urine Light Yellow; Glucose,Urine (UA) Negative (Negative); Hyaline Casts,Urine 3 /lpf (0-2); Ketones,Urine Negative (Negative); Leukocyte Esterase,Urine Moderate (Negative); Nitrite,Urine Negative (Negative); Protein,Urine Negative (Negative); Specific Gravity,Urine 1.005 (1.001-1.035); Urobilinogen,Urine <2.0 mg/dL (<2.0); WBC,Urine 20 /hpf (0-5)
[2019-03-11 13:17] LABS: Anisocytosis Slight; Basophils % (A) 1 %; Eosinophils # (A) 0.1 k/uL (0-0.7); Eosinophils % (A) 2 %; HCT 41.5 % (39.0-53.0); HGB 12.8 gm/dL (13.0-17.5); Hypochromasia Moderate; Lymphocytes # (A) 0.8 k/uL (1.0-4.8); Lymphocytes % (A) 12 %; MCH 27.6 pg (25.0-35.0); MCHC 30.9 g/dL (31.0-37.0); MCV 89.2 fL (80.0-100.0); Mean Platelet Volume 7.4; Monocytes # (A) 0.3 k/uL (0-1.0); Monocytes % (A) 4 %; Neutrophils # (A) 5.5 k/uL (1.3-7.7); Neutrophils % (A) 80 %; Platelet Count 224 k/uL (150-450); RBC 4.65 m/uL (4.30-5.90); WBC 6.8 k/uL (3.8-10.6)
[2019-03-11 18:50] LABS: Parathyroid Hormone Intact 56.4 pg/mL (14.0-72.0)
[2019-03-11 20:21] LABS: Creatinine,Urine Random 30.4 mg/dL
[2019-03-11 20:22] LABS: Total Protein,Urine Random 10.8 mg/dL (0.0-13.5)
[2019-03-11 20:59] LABS: Albumin 4.4 g/dL (3.80-4.90); Albumin/Globulin Ratio 2.1 (1.60-3.17); Calcium 9.8 mg/dL (8.7-10.3); Globulin 2.1 g/dL (1.6-3.3); LDL Cholesterol,Calculated 36.4 mg/dL (0.0-131.0); Magnesium 1.7 mg/dL (1.5-2.4); Phosphorus 4.2 mg/dL (2.4-5.1); Potassium 5.6 mmol/L (3.5-5.5); Total Bilirubin 0.5 mg/dL (0.3-1.2); Total Protein 6.5 g/dL (6.2-8.2); Uric Acid 7.9 mg/dL (3.7-8.7); VLDL Calculation 34.6 mg/dL (5.00-40.00)
[2019-03-11 21:04] LABS: Iron Saturation 21.38 (15.00-50.00)
[2019-03-11 21:09] LABS: Vitamin D 25 Hydroxy 55.2 ng/mL (30.0-100.0)
== END | disposition home or self-care (01) ==
LOC: LABWHC1 11:16
PROVIDERS: ATTEND Nurse Practitioner Adult Health
DX: N39.0 Urinary tract infection, site not specified (principal); E55.9 Vitamin D deficiency, unspecified; E21.3 Hyperparathyroidism, unspecified; M10.9 Gout, unspecified; R80.9 Proteinuria, unspecified; D63.1 Anemia in chronic kidney disease; N18.9 Chronic kidney disease, unspecified; D50.9 Iron deficiency anemia, unspecified; E11.22 Type 2 diabetes mellitus with diabetic chronic kidney disease; I25.10 Atherosclerotic heart disease of native coronary artery without angina pectoris; J44.9 Chronic obstructive pulmonary disease, unspecified; I12.9 Hypertensive chronic kidney disease with stage 1 through stage 4 chronic kidney disease, or unspecified chronic kidney disease; Z86.73 Personal history of transient ischemic attack (TIA), and cerebral infarction without residual deficits
CPT/HCPCS: 36415; 80053; 80061; 81001; 82306; 82570; 82728; 83036; 83540; 83550; 83735; 83970; 84100; 84156; 84443; 84550; 85025

== ENCOUNTER → 2019-03-25 | Outpatient (CLI) | payer MEDICARE, OTHER ==
--- NOTE | 2019-03-25 17:10 | US ---
EXAMINATION TYPE: US kidneys/renal and bladder DATE OF EXAM: 03/25/2019 COMPARISON: NONE CLINICAL HISTORY: 74-year-old male N18.9 CKD; diabetic; CKD stage 2; right kidney removed TECHNIQUE: Multiple sonographic images of the kidneys and bladder are obtained. FINDINGS: EXAM MEASUREMENTS: Right Kidney: surgically absent Left Kidney: 12.3 x 6.0 x 5.5 cm Post Void Residual Volume: 26.3 mL Left Kidney: mid pole simple cortical cyst = 3.0 x 2.7 x 2.6cm; hyperechoic vessel wall seen mid medi al kidney, possibly relating to atherosclerotic calcifications. No hydronephrosis. Bladder: Parts Clerk notes: may not be fully distended as possible wall fold noted right posterior mi d bladder . Abnormal urothelial nodularity spanning up to 2.4 cm is not excluded. No Left Jet was seen within 3 minutes observation. Normal Post Void Residual: yes IMPRESSION: 1. Right kidney surgically absent. 2. No hydronephrosis on the left. 3. 2.0 cm simple cyst in the left kidney. 4. Correlate with urinalysis and urine cytology as there is some mural based nodularity spanning 2.4 cm along the right posterior and superior aspect of the bladder. Wall redundancy due to partial diste ntion and urothelial neoplasm are in the differential.
== END | disposition home or self-care (01) ==
LOC: RADUSWWP 14:21
PROVIDERS: ATTEND Internal Medicine Nephrology
DX: N28.1 Cyst of kidney, acquired (principal); N18.9 Chronic kidney disease, unspecified; Z90.5 Acquired absence of kidney
CPT/HCPCS: 76770

== ENCOUNTER 2019-05-20 21:47 | Emergency (ER) | payer MEDICARE, OTHER ==
[2019-05-20 22:19] VITALS: BP 128/82; PULSE 71; RESP 18; TEMP 97.7
[2019-05-20] MEDS ORDERED: KETOROLAC 30 MG/ML 1 ML VIAL IM STA (22:55)
[2019-05-20] MEDS ORDERED: HYDROcodone/APAP 5-325MG 1 EACH TAB PO STA (22:55)
--- NOTE | 2019-05-20 23:57 | ED ---
General Adult HPI - General Chief complaint: Extremity Injury, Upper Stated complaint: Fall, Left arm pain Time Seen by Provider: 05/20/19 22:21 Source: patient Mode of arrival: ambulatory Limitations: no limitations - History of Present Illness Initial comments: 74-year-old male patient presents to the emergency department today for evaluation of left-sided neck pain with radiation down the left arm. Patient states that he rolled out of bed accidentally 3 days ago. Patient states he's been having discomfort to the area since however the pain worsened today. Patient states the area is tender to touch. States that the pain radiates down the left arm all related to the wrist. Denies any numbness or tingling to the fingers. Denies hitting his head or losing consciousness. Denies any other injuries. States he has been taking Tylenol with little relief. Patient denies any headache, back pain, chest pain, shortness of breath, dizziness, weakness, abdominal pain, nausea, vomiting, or difficulties with bowel movements or urination. - Related Data Home Medications Medication Instructions Recorded Confirmed Aspirin [[place] Aspirin EC] 81 mg PO DAILY 01/07/19 02/05/19 Atorvastatin [Lipitor] 20 mg PO HS 01/07/19 02/05/19 Cholecalciferol [Vitamin D3 (25 5,000 unit PO DAILY 01/07/19 02/05/19 Mcg = 1000 Iu)] Ferrous Sulfate [Iron] 325 mg PO DAILY 01/07/19 02/05/19 Finasteride [Proscar] 5 mg PO DAILY 01/07/19 02/05/19 Gabapentin [Neurontin] 100 mg PO BID 01/07/19 02/05/19 Menthol [Biofreeze] 1 applic TOPICAL BID 01/07/19 02/05/19 Furosemide [Lasix] 20 mg PO BID 02/05/19 02/05/19 Metoprolol Tartrate 12.5 mg PO BID 02/05/19 02/05/19 Sertraline HCl [Zoloft] 50 mg PO DAILY 02/05/19 02/05/19 Previous Rx's Medication Instructions Recorded Acetaminophen Tab [Tylenol] 650 mg PO Q6HR PRN tab 09/03/18 Clopidogrel [Plavix] 75 mg PO DAILY tab 09/03/18 Tamsulosin [Flomax] 0.4 mg PO BID cap.er.24h 09/03/18 Potassium Chloride ER [K-Dur 20] 20 meq PO DAILY #30 tab.er.prt 01/11/19 HYDROcodone/APAP 5-325MG [[place] 1 tab PO Q6HR PRN #12 tab 02/06/19 5-325] Ibuprofen [Motrin] 600 mg PO Q8HR PRN #30 tab 05/21/19 Allergies Allergy/AdvReac Type Severity Reaction Status Date / Time No Known Allergies Allergy Verified 05/20/19 22:19 Review of Systems ROS Statement: Those systems with pertinent positive or pertinent negative responses have been documented in the HPI. ROS Other: All systems not noted in ROS Statement are negative. Past Medical History Past Medical History: Coronary Artery Disease (CAD), Cancer, COPD, Diabetes Mellitus, Hyperlipidemia, Hypertension, Myocardial Infarction ([place]), Prostate Disorder Additional Past Medical History / Comment(s): prostate cancer with radiation > 20 years ago, nstemi, wears a brief incont urine/stool Last Myocardial Infarction Date:: 2017 History of Any Multi-Drug Resistant Organisms: ESBL, MRSA Date of last positivie culture/infection: 01/07/19 ESBL; 10/27/18 MRSA MDRO Source:: Urine-ESBL; Back-MRSA Past Surgical History: Coronary Bypass/CABG Additional Past Surgical History / Comment(s): 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,prostate bx, triple bypass 2017, bronchoscopy, picc line pt stated since removed Past Anesthesia/Blood Transfusion Reactions: No Reported Reaction Past Psychological History: No Psychological Hx Reported Smoking Status: Former smoker Past Alcohol Use History: None Reported Past Drug Use History: None Reported - Past Family History Father Additional Family Medical History / Comment(s): old age Mother Family Medical History: Coronary Artery Disease (CAD), Diabetes Mellitus Additional Family Medical History / Comment(s): CABG General Exam Limitations: no limitations General appearance: alert, in no apparent distress, other (Physical well- developed, well-nourished elderly male patient in no acute distress. Vital signs upon presentation are temperature 97.7F, pulse 71, respirations 18, blood pressure 128/82, pulse ox 98% on room air.) Eye exam: Present: normal appearance, PERRL, EOMI. Absent: scleral icterus, conjunctival injection, periorbital swelling ENT exam: Present: normal exam, normal oropharynx, mucous membranes moist Neck exam: Present: tenderness (Left lateral neck tenderness), full ROM, other (No bony step-off or deformity noted to for midline palpation of the posterior cervical spine). Absent: normal inspection, meningismus, lymphadenopathy Respiratory exam: Present: normal lung sounds bilaterally. Absent: respiratory distress, wheezes, rales, rhonchi, stridor Cardiovascular Exam: Present: regular rate, normal rhythm, normal heart sounds. Absent: systolic murmur, diastolic murmur, rubs, gallop, clicks GI/Abdominal exam: Present: soft, normal bowel sounds. Absent: distended, tenderness, guarding, rebound, rigid Extremities exam: Present: normal inspection, full ROM, normal capillary refill, other (Skin to the upper extremities is pink, warm, dry. Cap refills less than 3 seconds. Radial pulses 2+ and equal bilaterally.). Absent: tenderness, pedal edema, joint swelling, calf tenderness Back exam: Present: normal inspection, other (Nontender, no step-off, no deformity to firm midline palpation of the thoracic and lumbar vertebrae. Full range of motion without pain or limitation.). Absent: vertebral tenderness Neurological exam: Present: alert, oriented X3, CN II-XII intact Psychiatric exam: Present: normal affect, normal mood Skin exam: Present: warm, dry, intact, normal color. Absent: rash Course Vital Signs 05/20/19 05/21/19 22:16 00:36 Temperature 97.7 F 97.7 F Pulse Rate 71 71 Respiratory 18 18 Rate Blood Pressure 128/82 128/82 O2 Sat by Pulse 98 98 Oximetry Medical Decision Making - Medical Decision Making 74-year-old male patient presented to the emergency department today for evaluation of left-sided neck pain with radiation down the left arm after f alling out of bed Friday. Physical examination did reveal left lateral neck tenderness. Neurovascular status is intact to the upper extremities. She denies numbness or tingling. Denies any shortness of breath or chest pain. X- ray of the left shoulder was obtained and showed no acute abnormalities. CT of the cervical spine without contrast was obtained and showed no acute fractures or dislocations. Did discuss findings and results with the patient. Patient symptoms are consistent with cervical radiculopathy. Patient does have diabetes we will hold steroids at this time we will treat with anti-inflammatory medication. He is instructed to follow-up with his primary care physician for recheck in 1-2 days. Return parameters were discussed in detail. He verbalizes understanding and agrees with this plan. - Radiology Data Radiology results: report reviewed, image reviewed CT cervical spine without contrast was obtained. Report was reviewed in its entirety. Impression by Dr. Monroy shows no acute findings per Two-view x-ray of the left shoulder were obtained. Report was reviewed in its entirety. Impression by Dr. Monroy shows normal left shoulder x-rays. Disposition Clinical Impression: Cervical radiculopathy Disposition: HOME SELF-CARE Condition: Good Instructions (If sedation given, give patient instructions): Cervical Radiculopathy (ED) Additional Instructions: Apply warm compresses to the left neck. Take medication as directed. Follow-up with your primary care physician for recheck in 1-2 days. Return to the emergency department immediately for any new, worsening, or concerning symptoms. Prescriptions: Ibuprofen [Motrin] 600 mg PO Q8HR PRN #30 tab PRN Reason: Pain Is patient prescribed a controlled substance at d/c from ED?: No Referrals: Joy Reagan DO [Primary Care Provider] - 1-2 days Time of Disposition: 00:35
--- NOTE | 2019-05-21 00:03 | XR ---
EXAM: XR Left Shoulder Complete, 2 or More Views CLINICAL HISTORY: ITS.REASON XR Reason: Pain TECHNIQUE: Two or more views of the left shoulder. COMPARISON: No relevant prior studies available. FINDINGS: Bones/joints: Unremarkable. No acute fracture. No dislocation. Soft tissues: Unremarkable. IMPRESSION: Normal left shoulder x-rays.
--- NOTE | 2019-05-21 00:06 | CT ---
EXAM: CT Cervical Spine Without Intravenous Contrast CLINICAL HISTORY: ITS.REASON CT Reason: Pain TECHNIQUE: Axial computed tomography images of the cervical spine without intravenous contrast. This CT exam was performed using one or more of the following dose reduction techniques: automated exposure control, adjustment of the mA and/or kV according to patient size, and/or use of iterative reconstruction technique. COMPARISON: No relevant prior studies available. FINDINGS: Vertebrae: No acute fracture. Discs/spinal canal/neural foramina: No suspicious findings. Soft tissues: Unremarkable. IMPRESSION: No acute findings.
== END 2019-05-21 00:39 | disposition home or self-care (01) ==
LOC: EC 21:47
DX: M54.12 Radiculopathy, cervical region (principal); I25.10 Atherosclerotic heart disease of native coronary artery without angina pectoris; I25.2 Old myocardial infarction; E78.5 Hyperlipidemia, unspecified; I10 Essential (primary) hypertension; Z85.46 Personal history of malignant neoplasm of prostate; Z86.14 Personal history of Methicillin resistant Staphylococcus aureus infection; Z87.891 Personal history of nicotine dependence; Z79.82 Long term (current) use of aspirin; Z79.899 Other long term (current) drug therapy; Z95.1 Presence of aortocoronary bypass graft
CPT/HCPCS: 73030; 72125; 99284; 96372; J1885

== ENCOUNTER 2019-07-06 22:44 | Emergency (ER) | payer MEDICARE, OTHER ==
[2019-07-06 22:59] VITALS: RESP 18
[2019-07-06] MEDS ORDERED: MORPHINE SULFATE 4 MG/ML SYRINGE IM STA (23:16)
--- NOTE | 2019-07-06 23:23 | ED ---
General Adult HPI - General Chief complaint: Fall Stated complaint: Fall, Left Shoulder/Arm Pain Time Seen by Provider: 07/06/19 23:02 Source: patient, RN notes reviewed Mode of arrival: wheelchair Limitations: no limitations - History of Present Illness Initial comments: 74-year-old male with a complicated past medical history presents to the emergency department for a chief complaint of mechanical fall. Patient states he was walking when he went to grab his walker and missed the handle falling on his left shoulder. States he hit his left shoulder against his son's bedroom door. Patient does not think he hit his head but is not sure. Patient does take Plavix and aspirin due to open heart surgery last year. He denies any loss of consciousness. He denies any weakness. States his left shoulder is very painful and that is what is bothering him the most.Patient has no other complaints at this time including shortness of breath, chest pain, abdominal pain, nausea or vomiting, headache, or visual changes. - Related Data Home Medications Medication Instructions Recorded Confirmed Aspirin [[place] Aspirin EC] 81 mg PO DAILY 01/07/19 07/06/19 Atorvastatin [Lipitor] 20 mg PO HS 01/07/19 07/06/19 Cholecalciferol [Vitamin D3 (25 5,000 unit PO DAILY 01/07/19 07/06/19 Mcg = 1000 Iu)] Ferrous Sulfate [Iron] 325 mg PO DAILY 01/07/19 07/06/19 Finasteride [Proscar] 5 mg PO DAILY 01/07/19 07/06/19 Furosemide [Lasix] 20 mg PO DAILY 02/05/19 07/06/19 Metoprolol Tartrate 12.5 mg PO BID 02/05/19 07/06/19 Sertraline HCl [Zoloft] 50 mg PO DAILY 02/05/19 07/06/19 Tamsulosin [Flomax] 0.4 mg PO HS 07/06/19 07/06/19 Previous Rx's Medication Instructions Recorded Clopidogrel [Plavix] 75 mg PO DAILY tab 09/03/18 Potassium Chloride ER [K-Dur 20] 20 meq PO DAILY #30 tab.er.prt 01/11/19 Allergies Allergy/AdvReac Type Severity Reaction Status Date / Time No Known Allergies Allergy Verified 07/06/19 23:29 Review of Systems ROS Statement: Those systems with pertinent positive or pertinent negative responses have been documented in the HPI. ROS Other: All systems not noted in ROS Statement are negative. Past Medical History Past Medical History: Coronary Artery Disease (CAD), Cancer, COPD, Diabetes Mellitus, Hyperlipidemia, Hypertension, Myocardial Infarction ([place]), Prostate Disorder Additional Past Medical History / Comment(s): prostate cancer with radiation > 20 years ago, nstemi, wears a brief incont urine/stool Last Myocardial Infarction Date:: 2017 History of Any Multi-Drug Resistant Organisms: ESBL, MRSA Date of last positivie culture/infection: 01/07/19 ESBL; 10/27/18 MRSA MDRO Source:: Urine-ESBL; Back-MRSA Past Surgical History: Coronary Bypass/CABG Additional Past Surgical History / Comment(s): 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,prostate bx, triple bypass 2017, bronchoscopy, picc line pt stated since removed Past Anesthesia/Blood Transfusion Reactions: No Reported Reaction Past Psychological History: No Psychological Hx Reported Smoking Status: Former smoker Past Alcohol Use History: None Reported Past Drug Use History: None Reported - Past Family History Father Additional Family Medical History / Comment(s): old age Mother Family Medical History: Coronary Artery Disease (CAD), Diabetes Mellitus Additional Family Medical History / Comment(s): CABG General Exam Limitations: no limitations General appearance: alert, in no apparent distress Head exam: Present: atraumatic, normocephalic, normal inspection Eye exam: Present: normal appearance, PERRL, EOMI. Absent: scleral icterus, conjunctival injection, periorbital swelling ENT exam: Present: normal exam, mucous membranes moist Neck exam: Present: normal inspection, full ROM. Absent: tenderness, meningismus, lymphadenopathy Respiratory exam: Present: normal lung sounds bilaterally. Absent: respiratory distress, wheezes, rales, rhonchi, stridor Cardiovascular Exam: Present: regular rate, normal rhythm, normal heart sounds. Absent: systolic murmur, diastolic murmur, rubs, gallop, clicks Extremities exam: Present: tenderness (Generalized tenderness of the left proximal humerus is noted), normal capillary refill (Capillary refill less than 2 seconds, radial pulse 2+ in the left upper extremity.). Absent: full ROM (Patient has about 45 of flexion and abduction of the left shoulder. Full range of motion of the left elbow wrist and hand.) Course Vital Signs 07/06/19 07/07/19 22:56 00:08 Temperature 98.4 F 97.9 F Pulse Rate 61 62 Respiratory 18 18 Rate Blood Pressure 162/109 133/69 O2 Sat by Pulse 95 94 L Oximetry Medical Decision Making - Medical Decision Making 74-year-old male with a computed past medical history presents to the emergency department for a chief complaint of fall. Patient was walking when he went to grab his walker and missed the handle. Fell on his left shoulder. On exam patient has about 45 flexion and abduction of the left shoulder. Radial pulse is 2+. Sensation is intact. Patient has pain noted to the proximal left humerus. Patient does not believe he hit his head but is unsure. Patient is on blood thinners. Therefore CT was ordered.CT C-spine shows no acute fracture or change in alignment. Foraminal narrowing again noted. CT brain shows no intracranial hemorrhage mass effect or acute infarct. X-ray of the left shoulder shows no fracture or dislocation. X-ray of the left humerus shows no fracture. X-ray of the chest shows no acute findings.X-ray of the pelvis shows no acute findings. Patient is feeling much better after pain medication. Patient will be discharged home to follow up with orthopedics. Discussed range of motion activities with the left shoulder. Discussed returning here if he has any worsening symptoms or weakness. Disposition Clinical Impression: Shoulder pain, left, Fall Disposition: HOME SELF-CARE Condition: Good Instructions (If sedation given, give patient instructions): Shoulder Pain (ED) Additional Instructions: Please take medication for pain as directed. Please follow-up with orthopedics in one to 2 days if pain continues. Return to the emergency department if you have any worsening symptoms. Is patient prescribed a controlled substance at d/c from ED?: No Referrals: Joy Reagan DO [Primary Care Provider] - 1-2 days Rey Cross MD [Medical Doctor] - 1-2 days Time of Disposition: 01:10
--- NOTE | 2019-07-07 00:13 | XR ---
EXAM: XR Pelvis, 1 or 2 Views CLINICAL HISTORY: ITS.REASON XR Reason: Pain TECHNIQUE: Frontal view of the pelvis. COMPARISON: No relevant prior studies available. FINDINGS: Limitations: This exam is limited by poor penetration, likely due to patient's body habitus. Bones/joints: Moderate degenerative changes of both hip joints. No acute fracture. No dislocation. Soft tissues: Unremarkable. IMPRESSION: No acute findings.
--- NOTE | 2019-07-07 00:14 | XR ---
EXAM: XR Chest, 2 Views CLINICAL HISTORY: ITS.REASON XR Reason: Pain TECHNIQUE: Frontal and lateral views of the chest. COMPARISON: No relevant prior studies available. FINDINGS: Lungs: Mild reticular opacity in the right lower lung may represent atelectasis. The lungs are otherwise clear. Pleural space: Unremarkable. No pneumothorax. Heart: Unremarkable. No cardiomegaly. Mediastinum: Unremarkable. Bones/joints: Prior sternotomy. Mild degenerative changes of the right shoulder joint. Mild degenerative changes of the thoracic spine. Upper abdomen: Mild asymmetric elevation of the right hemidiaphragm. IMPRESSION: No acute findings.
--- NOTE | 2019-07-07 00:35 | CT ---
History: ITS.REASON CT Reason: Pain Exam: CT HEAD Without Contrast Technique more: CTDI is 45.2 mGy and DLP is 1007 mGy-cm. Technique more: This CT exam was performed using one or more of the following dose reduction techniques: automated exposure control, adjustment of the mA and/or kV according to patient size, and/or use of iterative reconstruction technique. Comparison: None available FINDINGS: No intracranial hemorrhage, mass effect or CT evidence of acute infarct. The ventricles are within limits and midline. The visualized paranasal sinuses, mastoids and orbits appear within limits. Bilateral parasellar carotid calcification. IMPRESSION: No intracranial hemorrhage, mass effect or CT evidence of acute infarct. Exam: CT C SPINE Without Contrast Technique more: CTDI is 14.1 mGy and DLP is 450.8 mGy-cm. Technique more: This CT exam was performed using one or more of the following dose reduction techniques: automated exposure control, adjustment of the mA and/or kV according to patient size, and/or use of iterative reconstruction technique. Comparison: 05/20/2019 FINDINGS: No acute fracture or change in alignment. Multilevel spondylosis/discogenic change with small appearing posterior disc osteophyte complexes and bilateral foraminal narrowing again noted. Moderate to large flowing anterior osteophyte formation at C5-C7 again seen. May be associated with dysphasia, nonspecific. The visualized apices appear clear. IMPRESSION: No acute fracture or change in alignment. Multilevel spondylosis/discogenic change with small appearing posterior disc osteophyte complexes and bilateral foraminal narrowing again noted. Moderate to large flowing anterior osteophyte formation at C5-C7 again seen. May be associated with dysphasia, nonspecific.
--- NOTE | 2019-07-07 00:39 | XR ---
History: ITS.REASON XR Reason: Pain Exam: XR LEFT HUMERUS 3 views Comparison: None available FINDINGS: No fracture. Vascular calcifications noted. IMPRESSION: No fracture.
--- NOTE | 2019-07-07 00:42 | XR ---
History: ITS.REASON XR Reason: Pain Exam: XR LEFT SHOULDER 3 views Comparison: 05/20/2019 FINDINGS: No fracture or dislocation. Mild acromioclavicular joint osteoarthrosis again noted. IMPRESSION: No fracture or dislocation.
[2019-07-07] MEDS ORDERED: ACET/COD 300 MG/30 MG STARTER PACK 6 TAB BTL PO STA (01:11)
[2019-07-07 01:21] VITALS: BP 133/70; PULSE 70; TEMP 98
== END 2019-07-07 01:21 | disposition home or self-care (01) ==
LOC: EC 22:44
DX: M25.512 Pain in left shoulder (principal); I25.10 Atherosclerotic heart disease of native coronary artery without angina pectoris; E78.5 Hyperlipidemia, unspecified; I10 Essential (primary) hypertension; I25.2 Old myocardial infarction; Z85.46 Personal history of malignant neoplasm of prostate; Z86.14 Personal history of Methicillin resistant Staphylococcus aureus infection; Z95.1 Presence of aortocoronary bypass graft; Z90.5 Acquired absence of kidney; Z87.891 Personal history of nicotine dependence; Z79.82 Long term (current) use of aspirin; Z79.899 Other long term (current) drug therapy; W19.XXXA Unspecified fall, initial encounter; Y93.01 Activity, walking, marching and hiking; Y92.009 Unspecified place in unspecified non-institutional (private) residence as the place of occurrence of the external cause
CPT/HCPCS: 72170; 73030; 73060; 71046; 72125; 70450; 99284; 96372; J2270

== ENCOUNTER → 2019-10-01 | Outpatient (CLI) | payer MEDICARE, OTHER ==
--- NOTE | 2019-10-01 15:59 | CT ---
EXAMINATION TYPE: CT abdomen pelvis wo con DATE OF EXAM: 10/01/2019 COMPARISON: None INDICATION: LLQ pain DLP: 942.4 mGycm, Automated exposure control for dose reduction was used. CONTRAST: None Study performed without Oral Contrast TECHNIQUE: Axial images were obtained from above the diaphragm to the pubic rami in the axial plane a t 5 mm thick sections. Reconstructed images are reviewed on the computer in the coronal plane. FINDINGS: Limited CT sections are obtained the lung bases. The lung bases are clear. Some coronary artery noé cification is present. CT ABDOMEN: Liver: Normal Spleen: Normal Pancreas: Normal Adrenal glands: The adrenal glands are normal. Gallbladder: Not identified. Kidneys: No masses are evident. No hydronephrosis is present. There is a 3.3 cm cyst measuring 8 Ho [place]field units on the posterior lateral left mid kidney. Right kidney is not identified. Aorta: Vascular calcification is within the aorta. Inferior vena cava: Normal. CT PELVIS: Loops of bowel within the abdomen and pelvis are normal. A few small scattered diverticuli are pre sent. There are loops of bowel which are incompletely distended or lack oral contrast limiting their evaluation. Appendix: Normal as visualized. Urinary bladder: Normal. Genitourinary structures: Osseous structures: No suspicious lytic or sclerotic lesions. IMPRESSIONS: 1. Mild diverticulosis without acute diverticulitis. 2. Right renal cyst. 3. Solitary left kidney
== END | disposition home or self-care (01) ==
LOC: RADCTMAIN 12:32
PROVIDERS: ATTEND Family Medicine
DX: N28.1 Cyst of kidney, acquired (principal); K57.90 Diverticulosis of intestine, part unspecified, without perforation or abscess without bleeding; Z90.5 Acquired absence of kidney
CPT/HCPCS: 74176

== ENCOUNTER 2020-02-06 13:54 | Observation (INO) | payer MEDICARE, OTHER ==
[2020-02-06] MEDS ORDERED: PANTOPRAZOLE 40 MG/10 ML VIAL IVP STA (14:27)
--- NOTE | 2020-02-06 14:29 | ED ---
General Adult HPI - General Chief complaint: GI Bleed Stated complaint: Rectal Bleeding Time Seen by Provider: 02/06/20 14:00 Source: patient, RN notes reviewed Mode of arrival: wheelchair Limitations: no limitations - History of Present Illness Initial comments: Patient is a pleasant 75-year-old male presenting to the emergency Department with complaints of rectal bleeding. Onset of symptoms was today. Patient has been having diarrhea approximately 3 times daily for the past 3 days. Patient is noticed some blood today. Patient does have some discomfort in the rectal area. Patient has occasional abdominal cramping, only prior to bowel movements. No pain at this time. No fevers. No history of similar symptoms previously. No other areas of bleeding. - Related Data Home Medications Medication Instructions Recorded Confirmed Aspirin [[place] Aspirin EC] 81 mg PO DAILY 01/07/19 07/06/19 Atorvastatin [Lipitor] 20 mg PO HS 01/07/19 07/06/19 Cholecalciferol [Vitamin D3 (25 5,000 unit PO DAILY 01/07/19 07/06/19 Mcg = 1000 Iu)] Ferrous Sulfate [Iron] 325 mg PO DAILY 01/07/19 07/06/19 Finasteride [Proscar] 5 mg PO DAILY 01/07/19 07/06/19 Furosemide [Lasix] 20 mg PO DAILY 02/05/19 07/06/19 Metoprolol Tartrate 12.5 mg PO BID 02/05/19 07/06/19 Sertraline HCl [Zoloft] 50 mg PO DAILY 02/05/19 07/06/19 Tamsulosin [Flomax] 0.4 mg PO HS 07/06/19 07/06/19 Previous Rx's Medication Instructions Recorded Clopidogrel [Plavix] 75 mg PO DAILY tab 09/03/18 Potassium Chloride ER [K-Dur 20] 20 meq PO DAILY #30 tab.er.prt 01/11/19 Allergies Allergy/AdvReac Type Severity Reaction Status Date / Time No Known Allergies Allergy Verified 02/06/20 13:59 Review of Systems ROS Statement: Those systems with pertinent positive or pertinent negative responses have been documented in the HPI. ROS Other: All systems not noted in ROS Statement are negative. Constitutional: Denies: fever Eyes: Denies: eye pain ENT: Denies: ear pain Respiratory: Denies: cough Cardiovascular: Denies: chest pain Endocrine: Denies: fatigue Gastrointestinal: Reports: as per HPI, hematochezia Genitourinary: Denies: dysuria Musculoskeletal: Denies: back pain Skin: Denies: rash Neurological: Denies: weakness Past Medical History Past Medical History: Coronary Artery Disease (CAD), Cancer, COPD, Diabetes Mellitus, Hyperlipidemia, Hypertension, Myocardial Infarction ([place]), Prostate Disorder Additional Past Medical History / Comment(s): prostate cancer with radiation > 20 years ago, nstemi, wears a brief incont urine/stool Last Myocardial Infarction Date:: 2017 History of Any Multi-Drug Resistant Organisms: ESBL, MRSA Date of last positivie culture/infection: 01/07/19 ESBL; 10/27/18 MRSA MDRO Source:: Urine-ESBL; Back-MRSA Past Surgical History: Coronary Bypass/CABG Additional Past Surgical History / Comment(s): 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,prostate bx, triple bypass 2017, bronchoscopy, picc line pt stated since removed Past Anesthesia/Blood Transfusion Reactions: No Reported Reaction Past Psychological History: No Psychological Hx Reported Smoking Status: Former smoker Past Alcohol Use History: None Reported Past Drug Use History: None Reported - Past Family History Father Additional Family Medical History / Comment(s): old age Mother Family Medical History: Coronary Artery Disease (CAD), Diabetes Mellitus Additional Family Medical History / Comment(s): CABG General Exam Limitations: no limitations General appearance: alert, in no apparent distress Head exam: Present: normocephalic Eye exam: Present: normal appearance, PERRL ENT exam: Present: normal oropharynx Neck exam: Present: normal inspection Respiratory exam: Present: normal lung sounds bilaterally Cardiovascular Exam: Present: regular rate, normal rhythm GI/Abdominal exam: Present: soft. Absent: tenderness Rectal exam: Present: bloody stool Extremities exam: Present: normal inspection Neurological exam: Present: alert Psychiatric exam: Present: normal affect, normal mood Skin exam: Present: normal color Course Vital Signs 02/06/20 02/06/20 13:56 15:22 Temperature 97.6 F Pulse Rate 57 L 79 Respiratory 20 18 Rate Blood Pressure 145/81 149/86 O2 Sat by Pulse 99 97 Oximetry Medical Decision Making - Medical Decision Making Patient reevaluated and resting comfortably in bed. Patient updated on results and plan. Case discussed with Dr. Mcguire, who will admit covering for Dr. Barlow, who admits for Dr. Reagan. - Lab Data Result diagrams: 02/06/20 14:14 02/06/20 14:14 Lab Results 02/06/20 02/06/20 02/06/20 Range/Units 14:14 14:14 14:14 WBC 6.8 (3.8-10.6) k/uL RBC 4.78 (4.30-5.90) m/uL Hgb 14.3 (13.0-17.5) gm/dL Hct 44.0 (39.0-53.0) % MCV 91.9 (80.0-100.0) fL MCH 29.9 (25.0-35.0) pg MCHC 32.5 (31.0-37.0) g/dL RDW 14.1 (11.5-15.5) % Plt Count 147 L (150-450) k/uL Neutrophils % 81 % Lymphocytes % 10 % Monocytes % 5 % Eosinophils % 2 % Basophils % 1 % Neutrophils # 5.6 (1.3-7.7) k/uL Lymphocytes # 0.7 L (1.0-4.8) k/uL Monocytes # 0.3 (0-1.0) k/uL Eosinophils # 0.1 (0-0.7) k/uL Basophils # 0.1 (0-0.2) k/uL PT 9.6 (9.0-12.0) sec INR 0.9 (<1.2) APTT 19.6 L (22.0-30.0) sec Sodium (137-145) mmol/L Potassium (3.5-5.1) mmol/L Chloride (98-107) mmol/L Carbon Dioxide (22-30) mmol/L Anion Gap mmol/L BUN (9-20) mg/dL Creatinine (0.66-1.25) mg/dL Est GFR (CKD-EPI)AfAm (>60 ml/min/1.73 sqM) Est GFR (CKD-EPI)NonAf (>60 ml/min/1.73 sqM) Glucose (74-99) mg/dL Calcium (8.4-10.2) mg/dL Total Bilirubin (0.2-1.3) mg/dL AST (17-59) U/L ALT (4-49) U/L Alkaline Phosphatase (38-126) U/L Total Protein (6.3-8.2) g/dL Albumin (3.5-5.0) g/dL Stool Occult Blood Positive (Negative) 02/06/20 Range/Units 14:14 WBC (3.8-10.6) k/uL RBC (4.30-5.90) m/uL Hgb (13.0-17.5) gm/dL Hct (39.0-53.0) % MCV (80.0-100.0) fL MCH (25.0-35.0) pg MCHC (31.0-37.0) g/dL RDW (11.5-15.5) % Plt Count (150-450) k/uL Neutrophils % % Lymphocytes % % Monocytes % % Eosinophils % % Basophils % % Neutrophils # (1.3-7.7) k/uL Lymphocytes # (1.0-4.8) k/uL Monocytes # (0-1.0) k/uL Eosinophils # (0-0.7) k/uL Basophils # (0-0.2) k/uL PT (9.0-12.0) sec INR (<1.2) APTT (22.0-30.0) sec Sodium 138 (137-145) mmol/L Potassium 5.4 H (3.5-5.1) mmol/L Chloride 100 (98-107) mmol/L Carbon Dioxide 30 (22-30) mmol/L Anion Gap 8 mmol/L BUN 24 H (9-20) mg/dL Creatinine 1.20 (0.66-1.25) mg/dL Est GFR (CKD-EPI)AfAm 68 (>60 ml/min/1.73 sqM) Est GFR (CKD-EPI)NonAf 59 (>60 ml/min/1.73 sqM) Glucose 166 H (74-99) mg/dL Calcium 9.5 (8.4-10.2) mg/dL Total Bilirubin 0.8 (0.2-1.3) mg/dL AST 31 (17-59) U/L ALT 20 (4-49) U/L Alkaline Phosphatase 89 (38-126) U/L Total Protein 7.0 (6.3-8.2) g/dL Albumin 4.3 (3.5-5.0) g/dL Stool Occult Blood (Negative) Disposition Clinical Impression: GI hemorrhage Disposition: ADMITTED IP TO THIS HOSP Is patient prescribed a controlled substance at d/c from ED?: No Referrals: Joy Reagan DO [Primary Care Provider] - 1-2 days Decision Time: 15:43
[2020-02-06 14:43] LABS: Basophils # (A) 0.1 k/uL (0-0.2); Basophils % (A) 1 %; Eosinophils # (A) 0.1 k/uL (0-0.7); Eosinophils % (A) 2 %; HGB 14.3 gm/dL (13.0-17.5); Lymphocytes # (A) 0.7 k/uL (1.0-4.8); Lymphocytes % (A) 10 %; MCH 29.9 pg (25.0-35.0); MCHC 32.5 g/dL (31.0-37.0); MCV 91.9 fL (80.0-100.0); Mean Platelet Volume 8.1; Monocytes # (A) 0.3 k/uL (0-1.0); Monocytes % (A) 5 %; Neutrophils # (A) 5.6 k/uL (1.3-7.7); Neutrophils % (A) 81 %; Platelet Count 147 k/uL (150-450); RBC 4.78 m/uL (4.30-5.90); RDW 14.1 % (11.5-15.5); WBC 6.8 k/uL (3.8-10.6)
[2020-02-06 14:49] LABS: Albumin 4.3 g/dL (3.5-5.0); Calcium 9.5 mg/dL (8.4-10.2); Potassium 5.4 mmol/L (3.5-5.1); Total Bilirubin 0.8 mg/dL (0.2-1.3)
[2020-02-06 14:54] LABS: INR 0.9 (<1.2); Prothrombin Time 9.6 sec (9.0-12.0)
[2020-02-06 14:57] LABS: Partial Thromboplastin Time 19.6 sec (22.0-30.0)
[2020-02-06] MEDS ORDERED: NALOXONE 0.4 MG/ML 1 ML VIAL IV PRN (15:44)
[2020-02-06] MEDS ORDERED: LORazepam 0.5 MG TAB PO PRN (18:15)
[2020-02-06] MEDS ORDERED: ACETAMINOPHEN TAB 500 MG TAB PO PRN (18:15)
[2020-02-06] MEDS ORDERED: ALPRAZolam 0.25 MG TAB PO PRN (18:15)
[2020-02-06] MEDS ORDERED: HYDROcodone/APAP 5-325MG 1 EACH TAB PO PRN (18:15)
--- NOTE | 2020-02-06 18:52 | XR ---
EXAMINATION TYPE: XR chest 1V portable DATE OF EXAM: 02/06/2020 COMPARISON: 07/06/2019 HISTORY: Chest pain. Previous heart surgery TECHNIQUE: FINDINGS: There is elevated right diaphragm. There is some linear density right lung base. There are sternal wires. Heart size is normal. There is no heart failure. Left lung is clear. IMPRESSION: There is atelectasis right lung base with a changing pattern compared to last exam. No he art failure seen.
[2020-02-06] MEDS: SODIUM CHLORIDE 0.9% 1,000 ML IV SCH (19:13)
[2020-02-06] MEDS: METOPROLOL TARTRATE 12.5 MG TAB PO SCH (19:56)
[2020-02-06] MEDS: ATORVASTATIN 20 MG TAB PO SCH (19:57)
[2020-02-06] MEDS: FINASTERIDE 5 MG TAB PO SCH (19:57)
[2020-02-06] MEDS: TAMSULOSIN 0.4 MG CAP.ER.24H PO SCH (19:57)
--- NOTE | 2020-02-06 20:14 | HP ---
HISTORY AND PHYSICAL DATE OF SERVICE: 02/06/2020 CHIEF COMPLAINT: Lower gastrointestinal bleed. HISTORY OF PRESENT ILLNESS: This 75-year-old gentleman with a past medical history of multiple medical history problems, history of CAD, history of COPD, diabetes, hypertension, hyperlipidemia, history of prostate cancer, history of CAD, CABG, history of nephrectomy, being followed by Dr. Joy Reagan and Arvin Grant in the outpatient setting, was complaining of gastrointestinal bleed and diarrhea. The patient initially had multiple episodes of diarrhea with some abdominal discomfort and subsequently patient noticed blood today. The patient also had some discomfort in the rectal area and the patient was taken to [facility] and admitted to the hospital for further evaluation and treatment. There is no history of fever, rigors or chills. No history of headache, loss of consciousness, seizures at this time. PAST MEDICAL HISTORY: History of CAD, history of COPD, diabetes type 2, hypertension, hyperlipidemia, myocardial infarction, history of prostate cancer, history of CAD/CABG. MEDICATIONS: Home medications are: 1. Flomax 0.4 q.h.s. 2. Zoloft 50 mg p.o. daily. 3. K-Dur 20 mEq p.o. daily. 4. Metoprolol 12.5 mg p.o. b.i.d. 5. Cozaar 25 mg p.o. daily. 6. Lantus 25 units subcu q.h.s. 7. Lasix 10 mg p.o. b.i.d. 8. Proscar 5 mg q.h.s. 9. Plavix 75 mg p.o. daily. 10.Vitamin D3 5000 daily. 11.Lipitor 20 mg q.h.s. 12.Aspirin 81 mg p.o. daily. ALLERGIES: None. FAMILY HISTORY: History of CAD, diabetes type 2, history of old age. SOCIAL HISTORY: History of occasional alcohol, previous history of smoking. REVIEW OF SYSTEMS: ENT: Diminished vision. Diminished hearing. Cardiovascular: No angina or palpitations. Respirations: As mentioned earlier. GASTROINTESTINAL: No nausea or vomiting. no dysuria. Central nervous system: No numbness or weakness. Allergy/Immunology: No asthma or hayfever. MUSCULOSKELETAL as mentioned earlier. Hematology/Oncology: No history of anemia. ENDOCRINE: As mentioned earlier. Diabetes. CONSTITUTIONAL: As mentioned earlier. Dermatology: Negative. Rheumatology: Negative. Psychiatry: As mentioned earlier. PHYSICAL EXAMINATION: Alert and oriented times three. Pulse 56. Blood pressure 199/91, respiration 18, temp 98 degrees, pulse ox 97 percent on room air. HEENT is conjunctivae normal. Oral mucosa moist. Neck is no jugular venous distention. No carotid bruit. No lymph node enlargement. Cardiovascular system: S1, S2. No S3, no S4. Respirations: Breath sounds diminished in the bases. A few scattered rhonchi. No crackles. ABDOMEN: Soft, mild diffuse discomfort on palpation. No guarding. No rigidity. No mass palpable. LEGS: No edema. No swelling. NERVOUS SYSTEM: Higher functions as mentioned earlier. Moves all 4 limbs. No focal motor or sensory deficits. Lymphatics: No lymph nodes palpable in the neck, axillae or groin. SKIN: No ulcer, rashes or bleeding. JOINTS: No active deforming arthropathy. LABS: At this time shows WBC 6.8, hemoglobin 14.3, and platelets are 147 and sodium is 130, potassium 5.4, glucose 160. ASSESSMENT: 1. Diarrhea with lower gastrointestinal bleeding for evaluation, rule out colitis. 2. Mild hyperkalemia. 3. History of coronary artery disease, coronary artery bypass grafting. 4. History of chronic obstructive pulmonary disease. 5. Diabetes mellitus type 2. 6. Hypertension. 7. Hyperlipidemia. 8. Myocardial infarction. 9. Hypertensive urgency. 10.History of prostate cancer, radiation. 11.History ESBL/MRSA. 12.Remote history of nicotine dependence. 13.FULL CODE. RECOMMENDATIONS AND DISCUSSION: In this 75-year-old gentleman who presented with multiple complex medical issues, we will monitor the patient closely, continue the current medications, management and symptomatic treatment. Otherwise, we will obtain surgical evaluation. Otherwise, I would recommend resume the home medications. Avoid antiplatelet agents. Monitor hemoglobin closely. If the hemoglobin drops less than 8, I would recommend a unit of transfusion. Otherwise prognosis guarded, which I discussed at length with the son at the bedside who understands and agrees. The patient also had some diarrhea with no other contacts recently. We will continue to monitor. See orders for details. Further recommendations to follow. Prognosis guarded. A copy of this dictation being forwarded to Dr. Arvin Grant who is the primary physician. MMODL / IJN: [id number] /
[2020-02-06 20:58] LABS: Basophils # (A) 0.1 k/uL (0-0.2); Basophils % (A) 1 %; Eosinophils # (A) 0.2 k/uL (0-0.7); Eosinophils % (A) 2 %; HCT 41.1 % (39.0-53.0); HGB 13.3 gm/dL (13.0-17.5); Lymphocytes # (A) 0.7 k/uL (1.0-4.8); Lymphocytes % (A) 10 %; MCH 30.2 pg (25.0-35.0); MCHC 32.4 g/dL (31.0-37.0); MCV 93.2 fL (80.0-100.0); Monocytes # (A) 0.3 k/uL (0-1.0); Monocytes % (A) 4 %; Neutrophils # (A) 6.2 k/uL (1.3-7.7); Neutrophils % (A) 82 %; Platelet Count 159 k/uL (150-450); RBC 4.41 m/uL (4.30-5.90); RDW 14.1 % (11.5-15.5); WBC 7.6 k/uL (3.8-10.6)
[2020-02-06 20:58] LABS: Glucose,Whole Blood 245 mg/dL (75-99)
[2020-02-06] MEDS: FUROSEMIDE 10 MG TAB PO SCH (21:02)
[2020-02-06] MEDS: INSULIN DETEMIR (LEVEMIR) 100 UNIT/ML SYR SQ SCH (21:02)
[2020-02-07] MEDS: SODIUM CHLORIDE 0.9% 1,000 ML IV SCH (03:57)
[2020-02-07 07:07] LABS: Glucose,Whole Blood 94 mg/dL (75-99)
[2020-02-07 08:11] LABS: Basophils % (A) 1 %; Eosinophils # (A) 0.2 k/uL (0-0.7); Eosinophils % (A) 3 %; HCT 42.1 % (39.0-53.0); HGB 13.5 gm/dL (13.0-17.5); Lymphocytes # (A) 0.9 k/uL (1.0-4.8); Lymphocytes % (A) 14 %; MCH 29.5 pg (25.0-35.0); MCV 92.2 fL (80.0-100.0); Monocytes # (A) 0.3 k/uL (0-1.0); Monocytes % (A) 5 %; Neutrophils # (A) 4.8 k/uL (1.3-7.7); Neutrophils % (A) 75 %; Platelet Count 161 k/uL (150-450); RBC 4.57 m/uL (4.30-5.90); WBC 6.4 k/uL (3.8-10.6)
[2020-02-07 08:17] LABS: Potassium 4.4 mmol/L (3.5-5.1)
[2020-02-07] MEDS: SERTRALINE 50 MG TAB PO SCH (08:33)
[2020-02-07] MEDS: PANTOPRAZOLE 40 MG/10 ML VIAL IV SCH (08:33)
[2020-02-07] MEDS: METOPROLOL TARTRATE 12.5 MG TAB PO SCH ×2 (08:33→22:26)
[2020-02-07] MEDS: FUROSEMIDE 10 MG TAB PO SCH ×2 (08:33→22:28)
[2020-02-07] MEDS: LOSARTAN 25 MG TAB PO SCH (08:33)
[2020-02-07] MEDS: CHOLECALCIFEROL 1,000 UNIT TAB PO SCH (08:33)
[2020-02-07] MEDS ORDERED: POTASSIUM CHLORIDE ER 20 MEQ TAB.ER PO SCH (09:00)
[2020-02-07 11:57] LABS: Glucose,Whole Blood 141 mg/dL (75-99)
--- NOTE | 2020-02-07 12:44 | P.CRDCN ---
History of Present Illness History of present illness: HISTORY OF PRESENTING ILLNESS This is a pleasant 75-year-old male past medical history significant for coronary artery disease s/p bypass grafting, diabetes mellitus, hypertension, dyslipidemia and myocardial infarction August 2018. He follows in the office with Dr. Harper. We have been asked to see in consultation for history of CAD with GI bleeding. He is currently maintained on dual antiplatelet therapy in the form of aspirin and Plavix. He states for the previous 3 days he has been having diarrhea. Last evening he noticed significant amount of blood in the stool. He states it was dark in color. He denies symptoms of abdominal discomfort, nausea or vomiting. He has no chest pain, dizziness or shortness of breath. Hemoglobin on arrival was 14.3 repeat this morning 13.5, platelets 161, sodium 139, potassium 4.4, creatinine 1.2. Stool for occult blood is positive. Blood pressure this morning 172/80 heart rate 61 afebrile maintaining oxygen saturation on room air. He states he hasn't had no further bowel movements since last evening. Recent cardiac cath eterization August 2018 in the setting of a non-ST elevated myocardial infarction revealed 100% occlusion of the RCA after the conus branch, 70% disease in the left main, 70% disease in the mid LAD and 80% disease in the OM branch of the circumflex. At that time he underwent bypass grafting with a CHAHAL to LAD, SVG to OM and an SVG to the PDA branch of the RCA. Most recent echocardiogram May 2019 reveals preserved LV systolic function with ejection fraction 55%, mild MR and mild TR. Other than dual antiplatelet therapy is also maintained on atorvastatin 20 mg daily, Lasix 10 mg twice a day, losartan 25 mg daily and metoprolol 12.5 mg twice a day. No EKG obtained on admission. Chest x-ray reveals atelectasis at the right lung base. REVIEW OF SYSTEMS At the time of my exam: CONSTITUTIONAL: Denies fever or chills. CARDIOVASCULAR: Denies chest pain, shortness of breath, orthopnea, PND or palpitations. RESPIRATORY: Denies cough. GASTROINTESTINAL: Complains of diarrhea with dark red blood. Denies abdominal pain, diarrhea, constipation, nausea or vomiting. MUSCULOSKELETAL: Denies myalgias. NEUROLOGIC: Denies numbness, tingling or weakness. ENDOCRINE: Denies fatigue, weight change, polydipsia or polyurina. GENITOURINARY: Denies burning, hematuria or urgency with micturation. HEMATOLOGIC: Denies history of anemia or bleeding. PHYSICAL EXAMINATION Blood pressure 172/80 heart rate 61 afebrile and maintaining oxygen saturation on room air. CONSTITUTIONAL: No apparent distress. HEENT: Head is normocephalic. Pupils are equal, round. Sclerae anicteric. Mucous membranes of the mouth are moist. No JVD. No carotid bruit. CHEST EXAMINATION: Lungs are clear to auscultation. No chest wall tenderness is noted on palpation or with deep breathing. HEART EXAMINATION: Regular rate and rhythm. S1, S2 heard. No murmurs, gallops or rub. ABDOMEN: Soft, nontender. Positive bowel sounds. EXTREMITIES: 2+ peripheral pulses, no lower extremity edema and no calf tenderness. NEUROLOGIC EXAMINATION: Patient is awake, alert and oriented x3. ASSESSMENT Blood in the stool History of coronary artery disease status post bypass grafting in the setting of a non-ST elevated myocardial action maintained on dual antiplatelet therapy since August 2018 Hypertension Dyslipidemia Diabetes mellitus PLAN Discontinue Plavix as it has been over 12 months since his myocardial infarction. Hold aspirin pending GI evaluation. Thank you kindly for this consultation. Nurse Practitioner note has been reviewed, I agree with a documented findings and plan of care. Patient was seen and examined. Past Medical History Past Medical History: Coronary Artery Disease (CAD), Cancer, COPD, Diabetes Mellitus, Hyperlipidemia, Hypertension, Myocardial Infarction ([place]), Prostate Disorder Additional Past Medical History / Comment(s): prostate cancer with radiation > 20 years ago, nstemi, wears a brief incont urine/stool Last Myocardial Infarction Date:: 2017 History of Any Multi-Drug Resistant Organisms: ESBL, MRSA Date of last positivie culture/infection: 01/07/19 ESBL; 10/27/18 MRSA MDRO Source:: Urine-ESBL; Back-MRSA Past Surgical History: Coronary Bypass/CABG Additional Past Surgical History / Comment(s): 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,prostate bx, triple bypass 2017, bronchoscopy, picc line pt stated since removed Past Anesthesia/Blood Transfusion Reactions: No Reported Reaction Past Psychological History: No Psychological Hx Reported Additional Psychological History / Comment(s): pt was dc'd from [facility] 01-01-19. lives with son, has vna, wheel chair, walker , nebulizer Smoking Status: Former smoker Past Alcohol Use History: None Reported Additional Past Alcohol Use History / Comment(s): quit smoking 1979 (prior to that 3 packs/day since his teens) Past Drug Use History: None Reported - Past Family History Father Additional Family Medical History / Comment(s): old age Mother Family Medical History: Coronary Artery Disease (CAD), Diabetes Mellitus Additional Family Medical History / Comment(s): CABG Medications and Allergies Home Medications Medication Instructions Recorded Confirmed Type Clopidogrel [Plavix] 75 mg PO DAILY tab 09/03/18 02/06/20 Rx Aspirin [[place] Aspirin EC] 81 mg PO DAILY 01/07/19 02/06/20 History Atorvastatin [Lipitor] 20 mg PO HS 01/07/19 02/06/20 History Cholecalciferol [Vitamin D3 (25 5,000 unit PO DAILY 01/07/19 02/06/20 History Mcg = 1000 Iu)] Finasteride [Proscar] 5 mg PO HS 01/07/19 02/06/20 History Potassium Chloride ER [K-Dur 20] 20 meq PO DAILY #30 tab.er.prt 01/11/19 02/06/20 Rx Metoprolol Tartrate 12.5 mg PO BID 02/05/19 02/06/20 History Sertraline HCl [Zoloft] 50 mg PO DAILY 02/05/19 02/06/20 History Tamsulosin [Flomax] 0.4 mg PO HS 07/06/19 02/06/20 History Furosemide [Lasix] 10 mg PO BID 02/06/20 02/06/20 History Insulin Glargine,Hum.rec.anlog 25 unit SQ HS 02/06/20 02/06/20 History [Lantus Solostar] Losartan Potassium [Cozaar] 25 mg PO DAILY 02/06/20 02/06/20 History Allergies Allergy/AdvReac Type Severity Reaction Status Date / Time No Known Allergies Allergy Verified 02/06/20 13:59 Physical Exam Vitals: Vital Signs Temp Pulse Pulse Resp BP BP Pulse Ox 02/07/20 08:38 97.8 F 61 16 172/80 94 L 02/07/20 01:14 97.5 F L 54 L 14 146/56 94 L 02/06/20 20:35 98 F 61 14 159/74 98 02/06/20 17:54 176/81 02/06/20 17:19 98.0 F 56 L 18 199/91 97 02/06/20 16:00 79 16 172/82 95 02/06/20 15:22 79 18 149/86 97 02/06/20 15:00 59 L 16 161/83 97 02/06/20 14:19 96 02/06/20 13:56 97.6 F 57 L 20 145/81 99 Intake and Output 02/06/20 02/07/20 02/07/20 22:59 06:59 14:59 Intake Total 150 300 Output Total 1150 Balance 150 -850 Intake: Intake, IV Titration 150 300 Amount Sodium Chloride 0.9% 1, 150 300 000 ml @ 50 mls/hr IV . Q20H [facility] Rx#:[id number] Output: Urine 1150 Other: Voiding Method Toilet Toilet # Voids 2 4 Weight 99.79 kg Results 02/07/20 07:46 02/07/20 07:46 Cardiac Enzymes 02/06/20 Range/Units 14:14 AST 31 (17-59) U/L Coagulation 02/06/20 Range/Units 14:14 PT 9.6 (9.0-12.0) sec APTT 19.6 L (22.0-30.0) sec CBC 02/06/20 02/06/20 02/07/20 Range/Units 14:14 20:39 07:46 WBC 6.8 7.6 6.4 (3.8-10.6) k/uL RBC 4.78 4.41 4.57 (4.30-5.90) m/uL Hgb 14.3 13.3 13.5 (13.0-17.5) gm/dL Hct 44.0 41.1 42.1 (39.0-53.0) % Plt Count 147 L 159 161 (150-450) k/uL Comprehensive Metabolic Panel 02/06/20 02/07/20 Range/Units 14:14 07:46 Sodium 138 139 (137-145) mmol/L Potassium 5.4 H 4.4 (3.5-5.1) mmol/L Chloride 100 105 (98-107) mmol/L Carbon Dioxide 30 23 (22-30) mmol/L BUN 24 H 24 H (9-20) mg/dL Creatinine 1.20 1.24 (0.66-1.25) mg/dL Glucose 166 H 174 H (74-99) mg/dL Calcium 9.5 9.0 (8.4-10.2) mg/dL AST 31 (17-59) U/L ALT 20 (4-49) U/L Alkaline Phosphatase 89 (38-126) U/L Total Protein 7.0 (6.3-8.2) g/dL Albumin 4.3 (3.5-5.0) g/dL Current Medications Generic Name Dose Route Start Last Admin Trade Name Freq PRN Reason Stop Dose Admin Acetaminophen 500 mg 02/06/20 18:15 Tylenol Tab PO Q6HR PRN Fever and/ or MILD Pain Hydrocodone Bitart/Acetaminophen 1 each 02/06/20 18:15 Otis 5-325 PO Q6HR PRN MODERATE Pain Alprazolam 0.25 mg 02/06/20 18:15 Xanax PO TID PRN MILD TO MODERATE Anxiety Atorvastatin Calcium 20 mg 02/06/20 21:00 02/06/20 19:57 Lipitor PO 20 mg HS ALEXEY Administration Cholecalciferol 5,000 unit 02/07/20 09:00 02/07/20 08:33 Vitamin D3 (25 Mcg = 1000 Iu) PO 5,000 unit DAILY ALEXEY Administration Finasteride 5 mg 02/06/20 21:00 02/06/20 19:57 Proscar PO 5 mg HS ALEXEY Administration Furosemide 10 mg 02/06/20 21:00 02/07/20 08:33 Lasix PO 10 mg BID ALEXEY Administration Sodium Chloride 1,000 mls @ 50 mls/hr 02/06/20 15:45 02/07/20 03:57 Saline 0.9% IV 50 mls/hr .Q20H ALEXEY Administration Insulin Detemir 25 unit 02/06/20 21:00 02/06/20 21:02 Levemir SQ 25 unit HS ALEXEY Administration Lorazepam 0.5 mg 02/06/20 18:15 Ativan PO Q3HR PRN SEVERE Anxiety Losartan Potassium 25 mg 02/07/20 09:00 02/07/20 08:33 Cozaar PO 25 mg DAILY ALEXEY Administration Metoprolol Tartrate 12.5 mg 02/06/20 21:00 02/07/20 08:33 Lopressor PO 12.5 mg BID ALEXEY Administration Naloxone HCl 0.2 mg 02/06/20 15:44 Narcan IV Q2M PRN Opioid Reversal Pantoprazole Sodium 40 mg 02/07/20 09:00 02/07/20 08:33 Protonix IV 40 mg DAILY ALEXEY Administration Sertraline HCl 50 mg 02/07/20 09:00 02/07/20 08:33 Zoloft PO 50 mg DAILY ALEXEY Administration Tamsulosin HCl 0.4 mg 02/06/20 21:00 02/06/20 19:57 Flomax PO 0.4 mg HS ALEXEY Administration Intake and Output 02/06/20 02/07/20 02/07/20 22:59 06:59 14:59 Intake Total 150 300 Output Total 1150 Balance 150 -850 Intake: Intake, IV Titration 150 300 Amount Sodium Chloride 0.9% 1, 150 300 000 ml @ 50 mls/hr IV . Q20H [facility] Rx#:[id number] Output: Urine 1150 Other: Voiding Method Toilet Toilet # Voids 2 4 Weight 99.79 kg 02/07/20 07:46 02/07/20 07:46
[2020-02-07 17:03] LABS: Glucose,Whole Blood 119 mg/dL (75-99)
[2020-02-07] MEDS: IOPAMIDOL CONTRAST (ORAL USE) VIAL PO PRN ×2 (17:51→18:20)
--- NOTE | 2020-02-07 20:52 | PN ---
PROGRESS NOTE DATE OF SERVICE: 02/07/2020 This 75-year-old gentleman who was admitted with diarrhea, lower gastrointestinal bleeding is being closely monitored at this time. Dr. Ching is following the patient closely as well as Cardiology. No active bleeding is noted at this time. EXAM: Alert and oriented x3. Pulse 50, blood pressure 140/87 respiration 16, temperature 97.8, pulse ox 98% on room air. HEENT: Conjunctivae normal. Oral mucosa moist. NECK: No jugular venous distention. No lymph node enlargement. CARDIOVASCULAR: S1, S2. RESPIRATORY: Diminished breath sounds at the bases. No rhonchi, no crackles. ABDOMEN: Soft, nontender, obese. LEGS: No edema, no swelling. NERVOUS SYSTEM: No focal deficits. LABS: WBC 6.2, hemoglobin 13.5, glucose 174. ASSESSMENT: 1. Diarrhea with lower gastrointestinal bleeding for evaluation, possible acute colitis. 2. Mild hyperkalemia. 3. History of coronary artery disease, coronary artery bypass grafting. 4. History of chronic obstructive pulmonary disease. 5. Diabetes mellitus type 2. 6. Hypertension. 7. Hyperlipidemia. 8. Myocardial infarction. 9. History hypertensive urgency. 10.History of prostate cancer, radiation. 11.History of ESBL and MRSA. 12.History of nicotine dependence. 13.FULL CODE. RECOMMENDATIONS AND DISCUSSION: Recommend to continue current medications, continue to monitor, symptomatic treatment, repeat labs. Otherwise, I would also recommend CT scan of the abdomen and pelvis for completion of workup and care. Closely follow with GI. Guarded prognosis. MMODL / IJN: [id number] /
[2020-02-07 22:14] LABS: Glucose,Whole Blood 169 mg/dL (75-99)
--- NOTE | 2020-02-07 22:21 | CT ---
EXAMINATION TYPE: CT abdomen pelvis wo con DATE OF EXAM: 02/07/2020 HISTORY: Rectal bleeding. CT DLP: 1189.4 mGycm. Automated Exposure Control for Dose Reduction was Utilized. TECHNIQUE: CT scan of the abdomen and pelvis is performed with oral but without IV contrast. COMPARISON: CT abdomen and pelvis October 01, 2019 FINDINGS: Within the limitations of a non-contrast study, the following observations are made. LUNG BASES: Partial visualization of sternal wires and sternal nonunion along with mediastinal clips. Persistent mild cardiomegaly with bibasilar linear scarring and/or atelectasis. LIVER/GB: Contracted gallbladder. Somewhat small size liver redemonstrated PANCREAS: No significant abnormality is seen. SPLEEN: No significant abnormality is seen. ADRENALS: No significant abnormality is seen. KIDNEYS: Persistent simple appearing exophytic 3.0 cm thin-walled cyst posterior lateral aspect lower pole left kidney axial image 49. Right kidney not seen and presumed surgically or congenitally absen t similar to prior. BOWEL: Oral contrast reaches level of hepatic flexure making evaluation of distal bowel slightly subo ptimal. No suspicious small or large bowel dilatation. Diverticula scattered throughout the colon wit h relative sparing of the right colon. No convincing CT evidence for acute diverticulitis. Mild wall thickening in the transverse and left colon slightly more prominent in the sigmoid rectal colon is pr esent.. GENITAL ORGANS: Prostate gland upper limits of normal in size. Scattered pelvic phleboliths are seen bilaterally. LYMPH NODES: No greater than 1cm abdominal or pelvic lymph nodes are appreciated. OSSEOUS STRUCTURES: Spine is straightened with multilevel spurring. Moderate to severe disc space foster rowing and vacuum disc phenomenon L5-S1 level. Mild to moderate narrowing of both hip joints. OTHER: Moderate to severe calcified plaque of the abdominal aorta extends into branch vessels. IMPRESSION: Persistent moderate to severe diffuse diverticulosis with relative sparing of right colon without convincing CT evidence for acute diverticulitis. Areas of mild uncomplicated acute colitis c annot be excluded as there is diffuse mild to moderate wall thickening from the hepatic flexure throu gh the rectum, findings could also be product of poor distention as oral contrast does not reach this level making evaluation suboptimal.
[2020-02-07] MEDS: ATORVASTATIN 20 MG TAB PO SCH (22:26)
[2020-02-07] MEDS: INSULIN DETEMIR (LEVEMIR) 100 UNIT/ML SYR SQ SCH (22:26)
[2020-02-07] MEDS: FINASTERIDE 5 MG TAB PO SCH (22:26)
[2020-02-07] MEDS: TAMSULOSIN 0.4 MG CAP.ER.24H PO SCH (22:27)
--- NOTE | 2020-02-07 23:47 | CONS ---
CONSULTATION DATE OF SERVICE: 02/07/2020 REQUESTING PHYSICIAN: Dr. Della Zuniga REASON FOR CONSULTATION: Rectal bleeding. HISTORY OF PRESENT ILLNESS: The patient is a 75-year-old pleasant white male with history of coronary artery disease, hypertension, hyperlipidemia, admitted to hospital because of nausea/rectal bleeding that started about 3 days ago. The patient says that he had multiple episodes of loose watery bowel movements for 3 days and yesterday afternoon had some bright red blood per rectum. He was concerned, came into the emergency room and subsequently admitted to the hospital for further evaluation. Initial hemoglobin was 14 g/dL. Since being in the hospital he did not have any further episodes of rectal bleeding or diarrhea. He reports no abdominal pain. No nausea, vomiting. He does not recall having these symptoms in the past. Has history of coronary artery disease and has been on aspirin, Plavix which is currently on hold. Repeat hemoglobin today is 13.5 g/dL. His last colonoscopy was close to 5 years ago and patient does not recall any details. PAST MEDICAL HISTORY: Coronary artery disease, COPD, diabetes mellitus, hypertension, hyperlipidemia, history of prostate cancer. MEDICATIONS: At home include Flomax, Zoloft, K-Dur, metoprolol, aspirin Plavix, Cozaar, Lantus, Lasix, Proscar, vitamin D3, Lipitor. ALLERGIES: None. SOCIAL HISTORY: Remote history of smoking. No alcohol use. FAMILY HISTORY: Father, coronary artery disease. Mother, diabetes mellitus. REVIEW OF SYSTEMS: CARDIOPULMONARY: No chest pain or shortness of breath. GENITOURINARY: No dysuria or hematuria. MUSCULOSKELETAL: Unremarkable. SKIN: Unremarkable. ENDOCRINE: Unremarkable. PSYCHIATRIC: Unremarkable. NEUROLOGY: Unremarkable. ENT/VISION: Unremarkable. CONSTITUTIONAL: No recent weight loss. No fever, chills, night sweats. HEMATOLOGY: Unremarkable. PHYSICAL EXAMINATION: He appears comfortable. No apparent distress. VITAL SIGNS: Stable. Blood pressure is 148/71, pulse of 50, temperature 97.9. HEENT examination unremarkable. Conjunctivae pink. Sclerae anicteric. Oral cavity, no lesions. NECK: No JVD or lymph node enlargement. CHEST: Clear to auscultation. HEART: Regular rate and rhythm. ABDOMEN: Soft, it was obese. Bowel sounds are positive. No organomegaly. EXTREMITIES: No pedal edema. SKIN: No rashes. NEUROLOGIC: Alert and oriented x3. No focal deficits. LABS: From the time of admission to the hospital: WBC 7.6, hemoglobin 14.3, platelets normal. Basic metabolic panel is within normal limits. PT/INR within normal limits. BUN 24, creatinine 1.20. Today hemoglobin 13.5, WBC 5.6, platelets normal. Stool occult blood was positive. IMPRESSION: 1. This is a patient who presents to the hospital with diarrhea of three days duration followed by one episode of bright red blood per rectum that happened yesterday afternoon. He denies having any symptoms or rectal bleeding since being in the hospital. Hemoglobin remains stable at 13.5 gm/dL. Presently hemodynamically stable and no further episodes of active bleeding. Last colonoscopy about 5 or 6 years ago according to the patient was within normal limits. At this time it is unclear if we are dealing with infectious colitis versus bleeding from internal hemorrhoids or other etiology. 2. Coronary artery disease on aspirin and Plavix, currently on hold. 3. History of diabetes mellitus. RECOMMENDATION: 1. Start him on clear liquid diet. 2. Stool studies to rule out infectious etiology. 3. Repeat labs in the morning. 4. If his hemoglobin is stable and has no further episodes of bleeding, he can be discharged home with plans for an outpatient colonoscopy in the next 1-2 weeks. The plan was discussed with the patient. He is agreeable to it. Thank you for this consultation. SIERRA / YULIYA: [id number] /
[2020-02-08] MEDS: SODIUM CHLORIDE 0.9% 1,000 ML IV SCH (00:36)
[2020-02-08 07:08] LABS: Glucose,Whole Blood 112 mg/dL (75-99)
[2020-02-08] MEDS: METOPROLOL TARTRATE 12.5 MG TAB PO SCH (08:18)
[2020-02-08] MEDS: SERTRALINE 50 MG TAB PO SCH (08:19)
[2020-02-08] MEDS: CHOLECALCIFEROL 1,000 UNIT TAB PO SCH (08:19)
[2020-02-08] MEDS: LOSARTAN 25 MG TAB PO SCH (08:19)
[2020-02-08] MEDS: PANTOPRAZOLE 40 MG/10 ML VIAL IV SCH (08:20)
[2020-02-08] MEDS: FUROSEMIDE 10 MG TAB PO SCH (08:20)
[2020-02-08 08:53] VITALS: BP 142/75; PULSE 60; RESP 17; TEMP 98
[2020-02-08 09:02] LABS: Basophils % (A) 1 %; Eosinophils # (A) 0.1 k/uL (0-0.7); Eosinophils % (A) 2 %; HCT 42.4 % (39.0-53.0); HGB 13.5 gm/dL (13.0-17.5); Lymphocytes # (A) 0.7 k/uL (1.0-4.8); Lymphocytes % (A) 12 %; MCH 29.4 pg (25.0-35.0); MCHC 31.9 g/dL (31.0-37.0); MCV 92.2 fL (80.0-100.0); Mean Platelet Volume 8.6; Monocytes # (A) 0.3 k/uL (0-1.0); Monocytes % (A) 6 %; Neutrophils # (A) 4.7 k/uL (1.3-7.7); Neutrophils % (A) 78 %; Platelet Count 137 k/uL (150-450); RDW 14.2 % (11.5-15.5)
[2020-02-08 09:26] LABS: Calcium 9.4 mg/dL (8.4-10.2); Potassium 4.4 mmol/L (3.5-5.1)
--- NOTE | 2020-02-08 10:40 | P.PN ---
Subjective HISTORY OF PRESENTING ILLNESS This is a pleasant 75-year-old male past medical history significant for coronary artery disease s/p bypass grafting, diabetes mellitus, hypertension, dyslipidemia and myocardial infarction August 2018. He follows in the office with Dr. Harper. He is seen and examined sitting up in the chair in no acute distress. He denies chest pain, dizziness, shortness of breath or palpitations. Laboratory data reviewed, WBC 6.0, hgb 13.5, plt 137, sodium 138, potassium 4.4, creatinine 1.11. Blood pressure 142/75 heart rate 60 afebrile and maintaining oxygen saturation on room air. He states he has had a bowel movement last night that did not appear to have blood in it. However when he wiped he did note some blood on the toilet paper. He has been seen by GI and they are not recommending any scopes during this admission. Likely bleeding if from hemorrhoids. PHYSICAL EXAMINATION CONSTITUTIONAL: No apparent distress. HEENT: Head is normocephalic. Pupils are equal, round. Sclerae anicteric. Mucous membranes of the mouth are moist. No JVD. No carotid bruit. CHEST EXAMINATION: Lungs are clear to auscultation. No chest wall tenderness is noted on palpation or with deep breathing. HEART EXAMINATION: Regular rate and rhythm. S1, S2 heard. No murmurs, gallops or rub. EXTREMITIES: 2+ peripheral pulses, no lower extremity edema and no calf tenderness. ASSESSMENT Blood in the stool History of coronary artery disease status post bypass grafting in the setting of a non-ST elevated myocardial action maintained on dual antiplatelet therapy since August 2018 Hypertension Dyslipidemia Diabetes mellitus PLAN Plavix has been discontinued and he should not resume on discharge. Resume aspirin 81 mg daily. Follow up in the office with Dr Harper upon discharge, he already has an appointment scheduled in the office. Nurse Practitioner note has been reviewed, I agree with a documented findings and plan of care. Patient was seen and examined. Objective - Vital Signs Vital signs: Vital Signs Temp 98.0 F 02/08/20 07:00 Pulse 60 02/08/20 07:00 Resp 17 02/08/20 07:00 BP 142/75 02/08/20 07:00 Pulse Ox 97 02/08/20 07:00 Intake & Output 02/07/20 02/08/20 02/08/20 18:59 06:59 18:59 Intake Total 240 Balance 240 Intake: Oral 240 Other: Voiding Method Toilet # Voids 3 2 1 # Bowel Movements 7 1 - Labs CBC & Chem 7: 02/08/20 06:51 02/08/20 06:51 Labs: Abnormal Lab Results - Last 24 Hours (Table) 02/07/20 02/07/20 02/07/20 Range/Units 11:56 17:00 22:12 Plt Count (150-450) k/uL Lymphocytes # (1.0-4.8) k/uL Glucose (74-99) mg/dL POC Glucose (mg/dL) 141 H 119 H 169 H (75-99) mg/dL 02/08/20 02/08/20 02/08/20 Range/Units 06:51 06:51 07:06 Plt Count 137 L (150-450) k/uL Lymphocytes # 0.7 L (1.0-4.8) k/uL Glucose 104 H (74-99) mg/dL POC Glucose (mg/dL) 112 H (75-99) mg/dL
[2020-02-08 11:41] LABS: Glucose,Whole Blood 172 mg/dL (75-99)
[2020-02-08] MEDS ORDERED: PIPERACILLIN-TAZOBACTAM 3.375 GM in SODIUM CHLORIDE 0.9% 100 ML IVPB SCH (14:05)
--- NOTE | 2020-02-08 17:59 | PN ---
PROGRESS NOTE DATE OF SERVICE: 02/08/2020 Patient is a 75-year-old pleasant white male admitted to the hospital with diarrhea of 3 days duration followed by one episode of rectal bleeding that happened 2 days ago. He came to the emergency room and subsequently admitted to the hospital. Hemoglobin remains stable during this hospitalization. Last hemoglobin was 13.5 g/dL. This morning he had a bowel movement and had a small streak of bright red blood per rectum, but overall he is feeling better and wants to go. Aspirin and Plavix have been on hold. PHYSICAL EXAMINATION: Appears comfortable, no apparent distress. VITAL SIGNS: Stable. Blood pressure 142/75, pulse is 60, temperature 98. HEENT examination unremarkable. Conjunctivae pink. Sclerae anicteric. Oral cavity, no lesions. NECK: No JVD or lymph node enlargement. CHEST: Clear to auscultation. HEART: Regular rate and rhythm. ABDOMEN: Soft. Bowel sounds are positive. No organomegaly. EXTREMITIES: No pedal edema. SKIN: No rashes. NEUROLOGIC: Alert and oriented x3. No focal deficits. LABS: WBC 6, hemoglobin 13.5, platelets 137. Rest of the labs are within normal limits. IMPRESSION: 1. Rectal bleeding, one episode that happened 2 days ago. Today he had small streak of bright red blood per rectum on toilet tissue paper, probably bleeding from internal hemorrhoids. His last colonoscopy was about 5 years ago. 2. Coronary artery disease, on aspirin and Plavix, currently on hold. 3. Acute diarrhea of 3 days duration which has since resolved since being in the hospital. RECOMMENDATION: The patient can be discharged home today but he was advised to follow up in the office in 2 weeks from now so that we can plan on outpatient colonoscopy in 2-3 weeks. If he has recurrent bleeding he was advised to notify us immediately. Thank you for this consultation. MMODL / IJN: [id number] /
[2020-02-09] MEDS ORDERED: PANTOPRAZOLE 40 MG TABLET PO SCH (09:00)
[2020-02-09] MEDS ORDERED: ASPIRIN 81 MG PO SCH (09:00)
--- NOTE | 2020-02-09 09:55 | DS ---
DISCHARGE SUMMARY DATE OF SERVICE: 02/08/2020 FINAL DIAGNOSES: 1. Diarrhea with lower gastrointestinal bleeding for evaluation of possible acute colitis or acute diverticular bleed. 2. Mild hyperkalemia. 3. History of coronary artery disease, coronary artery bypass grafting. 4. History of chronic obstructive pulmonary disease. 5. Number diabetes, diabetes type 2. 6. Hypertension. 7. Hyperlipidemia. 8. History of myocardial infarction. 9. Hypertensive urgency. 10.History of prostate cancer, radiation. 11.History ESBL, MRSA. 12.History of nicotine dependence. 13.FULL CODE. DISCHARGE DISPOSITION: The patient will be discharged in a stable condition with guarded prognosis, total time taken 35 minutes. HISTORY OF PRESENT ILLNESS: This is a 75-year-old gentleman being followed by Dr. Joy Reagan in the outpatient setting, admitted with abdominal pain with possible lower GI bleeding, possibly from diverticular disease and with possible colitis was admitted for an admitted and being closely monitored. Patient was seen by Cardiology and Gastroenterology during the hospitalization. Conservative line of management was noted. CT scan of the abdomen and pelvis showed significant diverticulosis with maybe some colitis, but the patient is not willing to stay here for more antibiotics. The patient will be discharged in stable condition. Guarded prognosis with further plans to follow up with outpatient. On exam, vitals are stable cardiovascular: Abdomen soft mild diffuse discomfort otherwise no guarding, no rigidity. No mass palpable. Bowel sounds present. DISCHARGE ADVICE AND MEDICATIONS: Diet is cardiac low-fat, low residue. Activity limited until followup. Follow up with Dr. ALISHA Harper in 2-3. Follow up with David Ching as advised. Follow up with Dr. Joy Reagan in 2-3 days. DISCHARGE MEDICATIONS: 1. Cozaar 25 mg p.o. daily. 2. Flomax 0.8 q.h.s. 3. Insulin 25 units subcu q.h.s. 4. Lasix 10 mg p.o. b.i.d. 5. Lipitor 20 mg q.h.s. 6. Metoprolol 12.5 mg b.i.d. 7. Proscar 5 mg q.h.s. 8. Ecotrin 81 mg p.o. daily. 9. Vitamin D 25 mcg p.o. daily. 10.Zoloft 250 mg p.o. daily. 11.Augmentin 875 mg p.o. b.i.d. for 3 days. 12.K-Dur 20 mg p.o. daily. Once again, the patient will be discharged in a stable condition with guarded prognosis. MMBERONICA / ROXANNN: [id number] /
== END 2020-02-08 15:37 | disposition home or self-care (01) ==
LOC: EC 13:54 → 4SSUR 15:44 → OBSVTOIN 02-08 13:10 → INTOOBSV 02-08 13:10 → UNDODISIN 02-08 15:37
PROVIDERS: ADMIT Family Medicine; ATTEND Family Medicine
DX: K57.31 Diverticulosis of large intestine without perforation or abscess with bleeding (principal); R19.7 Diarrhea, unspecified; E87.5 Hyperkalemia; I25.10 Atherosclerotic heart disease of native coronary artery without angina pectoris; J44.9 Chronic obstructive pulmonary disease, unspecified; E11.9 Type 2 diabetes mellitus without complications; I10 Essential (primary) hypertension; E78.5 Hyperlipidemia, unspecified; I25.2 Old myocardial infarction; I16.0 Hypertensive urgency; R93.3 Abnormal findings on diagnostic imaging of other parts of digestive tract; J98.11 Atelectasis; R32 Unspecified urinary incontinence; R15.9 Full incontinence of feces; Z95.1 Presence of aortocoronary bypass graft; Z85.46 Personal history of malignant neoplasm of prostate; Z92.3 Personal history of irradiation; Z86.14 Personal history of Methicillin resistant Staphylococcus aureus infection; Z86.19 Personal history of other infectious and parasitic diseases; Z87.891 Personal history of nicotine dependence; Z79.82 Long term (current) use of aspirin; Z79.899 Other long term (current) drug therapy; Z87.440 Personal history of urinary (tract) infections; Z90.5 Acquired absence of kidney; Z98.890 Other specified postprocedural states; Z79.4 Long term (current) use of insulin; Z79.02 Long term (current) use of antithrombotics/antiplatelets; Z82.49 Family history of ischemic heart disease and other diseases of the circulatory system; Z83.3 Family history of diabetes mellitus
CPT/HCPCS: 96376 ×2; 96374; 99285; 36415; 80053; 80048 ×2; 85025 ×3; 85610; 85730; 82272; 71045; 74176; G0378 ×3; S0138 ×2; C9113 ×3; 99284

== ENCOUNTER 2020-04-07 08:18 | Observation (INO) | payer MEDICARE, OTHER ==
[2020-04-07] MEDS ORDERED: SODIUM CHLORIDE 0.9% 500 ML 500 ML IV STA (08:48)
[2020-04-07] MEDS ORDERED: SODIUM CHLORIDE 0.9% 1,000 ML IV STA (08:48)
[2020-04-07] MEDS ORDERED: methylPREDNISolone SOD SUCCI 125 MG/2 ML VIAL IV STA (08:48)
[2020-04-07] MEDS ORDERED: ALBUTEROL HFA INHALER INHALATION STA (08:48)
--- NOTE | 2020-04-07 08:53 | ED ---
SOB HPI - General Chief Complaint: Shortness of Breath Stated Complaint: sob, cough Time Seen by Provider: 04/07/20 08:42 Source: patient, RN notes reviewed, old records reviewed Mode of arrival: wheelchair Limitations: no limitations - History of Present Illness Initial Comments: Patient is a 75-year-old male presents emergency department today with chief complaint of worsening cough shortness of breath and congestion for the past 3 days. Patient states that he is a former smoker and has been diagnosed with COPD. Patient states that he is unsure if he is been on antibiotics recently. He complains of waking up in the morning with diffuse sweats. Patient reports that he does have some chest discomfort with coughing. He also complains some diarrhea. Denies any known exposure to COVID postive patients. - Related Data Home Medications Medication Instructions Recorded Confirmed Aspirin [Emelle Aspirin EC] 81 mg PO DAILY 01/07/19 02/06/20 Atorvastatin [Lipitor] 20 mg PO HS 01/07/19 02/06/20 Cholecalciferol [Vitamin D3 (25 5,000 unit PO DAILY 01/07/19 02/06/20 Mcg = 1000 Iu)] Finasteride [Proscar] 5 mg PO HS 01/07/19 02/06/20 Metoprolol Tartrate 12.5 mg PO BID 02/05/19 02/06/20 Sertraline HCl [Zoloft] 50 mg PO DAILY 02/05/19 02/06/20 Tamsulosin [Flomax] 0.4 mg PO HS 07/06/19 02/06/20 Furosemide [Lasix] 10 mg PO BID 02/06/20 02/06/20 Insulin Glargine,Hum.rec.anlog 25 unit SQ HS 02/06/20 02/06/20 [Lantus Solostar] Losartan Potassium [Cozaar] 25 mg PO DAILY 02/06/20 02/06/20 Previous Rx's Medication Instructions Recorded Potassium Chloride ER [K-Dur 20] 20 meq PO DAILY #30 tab.er.prt 01/11/19 Amoxicillin/Potassium Clav 1 tab PO BID 3 Days #6 tab 02/08/20 [Augmentin 875-125 Tablet] Allergies Allergy/AdvReac Type Severity Reaction Status Date / Time No Known Allergies Allergy Verified 02/06/20 13:59 Review of Systems ROS Statement: Those systems with pertinent positive or pertinent negative responses have been documented in the HPI. ROS Other: All systems not noted in ROS Statement are negative. Past Medical History Past Medical History: Coronary Artery Disease (CAD), Cancer, COPD, Diabetes Mellitus, Hyperlipidemia, Hypertension, Myocardial Infarction ([place]), Prostate Di sorder Additional Past Medical History / Comment(s): prostate cancer with radiation > 20 years ago, nstemi, wears a brief incont urine/stool Last Myocardial Infarction Date:: 2017 History of Any Multi-Drug Resistant Organisms: ESBL, MRSA Date of last positivie culture/infection: 01/07/19 ESBL; 10/27/18 MRSA MDRO Source:: Urine-ESBL; Back-MRSA Past Surgical History: Coronary Bypass/CABG Additional Past Surgical History / Comment(s): 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,prostate bx, triple bypass 2017, bronchoscopy, picc line pt stated since removed Past Anesthesia/Blood Transfusion Reactions: No Reported Reaction Past Psychological History: No Psychological Hx Reported Smoking Status: Former smoker Past Alcohol Use History: None Reported Past Drug Use History: None Reported - Past Family History Father Additional Family Medical History / Comment(s): old age Mother Family Medical History: Coronary Artery Disease (CAD), Diabetes Mellitus Additional Family Medical History / Comment(s): CABG General Exam - General Exam Comments Initial Comments: 75-year-old male. Alert. No distress. Limitations: no limitations General appearance: alert, in no apparent distress Head exam: Present: atraumatic, normocephalic, normal inspection Eye exam: Present: normal appearance, PERRL, EOMI. Absent: scleral icterus, conjunctival injection, periorbital swelling ENT exam: Present: mucous membranes moist. Absent: normal exam Neck exam: Present: normal inspection. Absent: tenderness, meningismus, lymphadenopathy Respiratory exam: Present: wheezes, decreased breath sounds. Absent: normal lung sounds bilaterally, respiratory distress, rales, rhonchi, stridor Course Vital Signs 04/07/20 04/07/20 04/07/20 08:21 09:14 09:18 Temperature 99.0 F Pulse Rate 89 71 Respiratory 20 18 16 Rate Blood Pressure 156/82 157/78 O2 Sat by Pulse 97 95 Oximetry - Reevaluation(s) Reevaluation #1: 04/07/20 11:32 Is hypoxic 89% on room air resting in bed. Still wheezing. Medical Decision Making - Medical Decision Making 75-year-old male presents today for enough for shortness of breath or productive cough worsening over the past 3 days. He also claims some diarrhea and chest discomfort. Initial concern was for Covid. Patient's Covid screen is negative at this time. He did have an elevated d-dimer CT chest and has completely negative for PE. Clinically Patient still wheezing and hypoxic on room air. The Patient on 2 L of oxygen is now satting at 98%. Patient was given IV Solu- Medrol and will be started on Rocephin and azithromycin. Patient's presentation is more consistent with COPD exacerbation. Patient is agreeable to admission. Discussed the case with Dr. Delarosa who discussed case with [facility] - Lab Data Result diagrams: 04/07/20 09:05 04/07/20 09:05 Lab Results 04/07/20 04/07/20 04/07/20 Range/Units 09:05 09:05 09:05 WBC 8.5 (3.8-10.6) k/uL RBC 4.62 (4.30-5.90) m/uL Hgb 13.5 (13.0-17.5) gm/dL Hct 42.9 (39.0-53.0) % MCV 93.0 (80.0-100.0) fL MCH 29.2 (25.0-35.0) pg MCHC 31.4 (31.0-37.0) g/dL RDW 14.4 (11.5-15.5) % Plt Count 130 L (150-450) k/uL Neutrophils % 88 % Lymphocytes % 4 % Monocytes % 6 % Eosinophils % 1 % Basophils % 1 % Neutrophils # 7.4 (1.3-7.7) k/uL Lymphocytes # 0.3 L (1.0-4.8) k/uL Monocytes # 0.5 (0-1.0) k/uL Eosinophils # 0.1 (0-0.7) k/uL Basophils # 0.0 (0-0.2) k/uL PT 9.7 (9.0-12.0) sec INR 0.9 (<1.2) APTT 23.3 (22.0-30.0) sec D-Dimer 1.05 H (<0.60) mg/L FEU Sodium 135 L (137-145) mmol/L Potassium 5.3 H (3.5-5.1) mmol/L Chloride 103 (98-107) mmol/L Carbon Dioxide 23 (22-30) mmol/L Anion Gap 9 mmol/L BUN 19 (9-20) mg/dL Creatinine 1.13 (0.66-1.25) mg/dL Est GFR (CKD-EPI)AfAm 73 (>60 ml/min/1.73 sqM) Est GFR (CKD-EPI)NonAf 64 (>60 ml/min/1.73 sqM) Glucose 143 H (74-99) mg/dL Plasma Lactic Acid Chauncey (0.7-2.0) mmol/L Calcium 9.5 (8.4-10.2) mg/dL Magnesium 1.4 L (1.6-2.3) mg/dL Total Bilirubin 0.8 (0.2-1.3) mg/dL AST 25 (17-59) U/L ALT 22 (4-49) U/L Alkaline Phosphatase 96 (38-126) U/L Lactate Dehydrogenase 355 (313-618) U/L Troponin I (0.000-0.034) ng/mL C-Reactive Protein 43.2 H (<10.0) mg/L NT-Pro-B Natriuret Pep pg/mL Total Protein 6.6 (6.3-8.2) g/dL Albumin 3.8 (3.5-5.0) g/dL Coronavirus (PCR) (Not Detectd) 04/07/20 04/07/20 04/07/20 Range/Units 09:05 09:05 09:05 WBC (3.8-10.6) k/uL RBC (4.30-5.90) m/uL Hgb (13.0-17.5) gm/dL Hct (39.0-53.0) % MCV (80.0-100.0) fL MCH (25.0-35.0) pg MCHC (31.0-37.0) g/dL RDW (11.5-15.5) % Plt Count (150-450) k/uL Neutrophils % % Lymphocytes % % Monocytes % % Eosinophils % % Basophils % % Neutrophils # (1.3-7.7) k/uL Lymphocytes # (1.0-4.8) k/uL Monocytes # (0-1.0) k/uL Eosinophils # (0-0.7) k/uL Basophils # (0-0.2) k/uL PT (9.0-12.0) sec INR (<1.2) APTT (22.0-30.0) sec D-Dimer (<0.60) mg/L FEU Sodium (137-145) mmol/L Potassium (3.5-5.1) mmol/L Chloride (98-107) mmol/L Carbon Dioxide (22-30) mmol/L Anion Gap mmol/L BUN (9-20) mg/dL Creatinine (0.66-1.25) mg/dL Est GFR (CKD-EPI)AfAm (>60 ml/min/1.73 sqM) Est GFR (CKD-EPI)NonAf (>60 ml/min/1.73 sqM) Glucose (74-99) mg/dL Plasma Lactic Acid Chauncey 1.4 (0.7-2.0) mmol/L Calcium (8.4-10.2) mg/dL Magnesium (1.6-2.3) mg/dL Total Bilirubin (0.2-1.3) mg/dL AST (17-59) U/L ALT (4-49) U/L Alkaline Phosphatase (38-126) U/L Lactate Dehydrogenase (313-618) U/L Troponin I 0.015 (0.000-0.034) ng/mL C-Reactive Protein (<10.0) mg/L NT-Pro-B Natriuret Pep 531 pg/mL Total Protein (6.3-8.2) g/dL Albumin (3.5-5.0) g/dL Coronavirus (PCR) (Not Detectd) 04/07/20 Range/Units 09:05 WBC (3.8-10.6) k/uL RBC (4.30-5.90) m/uL Hgb (13.0-17.5) gm/dL Hct (39.0-53.0) % MCV (80.0-100.0) fL MCH (25.0-35.0) pg MCHC (31.0-37.0) g/dL RDW (11.5-15.5) % Plt Count (150-450) k/uL Neutrophils % % Lymphocytes % % Monocytes % % Eosinophils % % Basophils % % Neutrophils # (1.3-7.7) k/uL Lymphocytes # (1.0-4.8) k/uL Monocytes # (0-1.0) k/uL Eosinophils # (0-0.7) k/uL Basophils # (0-0.2) k/uL PT (9.0-12.0) sec INR (<1.2) APTT (22.0-30.0) sec D-Dimer (<0.60) mg/L FEU Sodium (137-145) mmol/L Potassium (3.5-5.1) mmol/L Chloride (98-107) mmol/L Carbon Dioxide (22-30) mmol/L Anion Gap mmol/L BUN (9-20) mg/dL Creatinine (0.66-1.25) mg/dL Est GFR (CKD-EPI)AfAm (>60 ml/min/1.73 sqM) Est GFR (CKD-EPI)NonAf (>60 ml/min/1.73 sqM) Glucose (74-99) mg/dL Plasma Lactic Acid Chauncey (0.7-2.0) mmol/L Calcium (8.4-10.2) mg/dL Magnesium (1.6-2.3) mg/dL Total Bilirubin (0.2-1.3) mg/dL AST (17-59) U/L ALT (4-49) U/L Alkaline Phosphatase (38-126) U/L Lactate Dehydrogenase (313-618) U/L Troponin I (0.000-0.034) ng/mL C-Reactive Protein (<10.0) mg/L NT-Pro-B Natriuret Pep pg/mL Total Protein (6.3-8.2) g/dL Albumin (3.5-5.0) g/dL Coronavirus (PCR) Not Detected (Not Detectd) 04/07/20 09:29 EKG performed at 9:11 AM shows normal sinus rhythm left axis deviation. Right bundle branch block. Possible left atrial infarct. Abnormal EKG. Ventricular rate of 72 beats were minute. Verbal is 178 ms. Frustration is 140 ms. QT QTc is 412/451 ms. - Radiology Data Radiology results: report reviewed No evidence of central segmental pulmonary bolus. Subsegmental pulmonary arteries are somewhat some optimally evaluated. Respiratory rate motion. Chronic right middle lobe atelectasis. New 4 mm nodule in the right lung apex a follow-up CT in 12 months recommended. Probable left paracentral subjective changes chest wall fat necrosis anterior to the sternotomy wires. Ventral hernia of the upper abdomen. In with portions of the reader to curvature of the stomach. Disposition Clinical Impression: Elevated d-dimer, COPD exacerbation Disposition: ADMITTED IP TO THIS HOSP Condition: Stable Is patient prescribed a controlled substance at d/c from ED?: No Referrals: Abdirahman Rodriguez III, MD [Primary Care Provider] - 1-2 days Time of Disposition: 11:35
[2020-04-07 09:23] LABS: Basophils % (A) 1 %; Eosinophils # (A) 0.1 k/uL (0-0.7); Eosinophils % (A) 1 %; HCT 42.9 % (39.0-53.0); HGB 13.5 gm/dL (13.0-17.5); Lymphocytes # (A) 0.3 k/uL (1.0-4.8); Lymphocytes % (A) 4 %; MCH 29.2 pg (25.0-35.0); MCHC 31.4 g/dL (31.0-37.0); Mean Platelet Volume 7.6; Monocytes # (A) 0.5 k/uL (0-1.0); Monocytes % (A) 6 %; Neutrophils # (A) 7.4 k/uL (1.3-7.7); Neutrophils % (A) 88 %; Platelet Count 130 k/uL (150-450); RBC 4.62 m/uL (4.30-5.90); RDW 14.4 % (11.5-15.5); WBC 8.5 k/uL (3.8-10.6)
[2020-04-07 09:41] LABS: INR 0.9 (<1.2); Partial Thromboplastin Time 23.3 sec (22.0-30.0); Prothrombin Time 9.7 sec (9.0-12.0)
[2020-04-07 09:42] LABS: Albumin 3.8 g/dL (3.5-5.0); C Reactive Protein 43.2 mg/L (<10.0); Calcium 9.5 mg/dL (8.4-10.2); Magnesium 1.4 mg/dL (1.6-2.3); Potassium 5.3 mmol/L (3.5-5.1); Total Bilirubin 0.8 mg/dL (0.2-1.3); Total Protein 6.6 g/dL (6.3-8.2)
--- NOTE | 2020-04-07 09:50 | XR ---
EXAMINATION TYPE: XR chest 1V DATE OF EXAM: 04/07/2020 COMPARISON: 02/06/2020 HISTORY: Cough TECHNIQUE: Single frontal view of the chest is obtained. FINDINGS: Somewhat masslike density at the right lung base appears to relate to atelectasis on the p rior exam of 02/17/2020. Follow-up to resolution recommended. Right hemidiaphragm elevation is seen. P ost CABG changes of the chest with mediastinal shift toward the right secondary to patient rotation. No acute osseous pathology seen. IMPRESSION: Chronic right basilar opacity appearing as atelectasis on the prior CT of 02/07/2020.
[2020-04-07 09:51] LABS: D-Dimer 1.05 mg/L FEU (<0.60)
--- NOTE | 2020-04-07 10:55 | CT ---
EXAMINATION TYPE: CT chest angio for PE DATE OF EXAM: 04/07/2020 COMPARISON: Chest x-ray dated 04/07/[address] abdomen pelvis dated 02/06/2022 to compare the lung bases . HISTORY: cough, elevated d dimer CT DLP: 563.1 mGycm. Automated Exposure Control for Dose Reduction was Utilized. CONTRAST: CTA scan of the thorax is performed with IV Contrast, patient injected with 100 mL of Isovue 370, pul monary embolism protocol. MIP Images are created on CT scanner and reviewed. FINDINGS: LUNGS: Subpleural right apical nodule on image 27 measures 4 mm. Chronic right basilar atelectasis an d minimal bronchiectasis with right hemidiaphragm elevation are redemonstrated as seen on the CT of . There is no pleural effusion or pneumothorax seen. The tracheobronchial tree is patent. MEDIASTINUM: There is satisfactory enhancement of the pulmonary artery and its branches, there is no CT evidence for pulmonary embolism. Somewhat suboptimal evaluation of abnormal distal subsegmental p ulmonary arteries given There are no greater than 1 cm hilar or mediastinal lymph nodes. No cardiom egaly or pericardial effusion is seen. Post CABG changes are demonstrated. Anterior to the sternotomy wires in the left paracentral chest subcutaneous tissues centrally lucent probable fat necrosis is s een. There is asymmetric probable retroareolar gynecomastia, right greater than left moderate atherom atous change of the thoracic aorta. OTHER: Moderate multilevel degenerative change of the spine. There is a ventral hernia of the upper a bdomen just below the sternum with a neck measuring 5.7 cm containing portions of the greater curvatu re the stomach. Scattered colonic diverticula are seen without pericolonic fat stranding. Hypoattenua tion of the hepatic parenchyma suggests mild degree hepatic steatosis. Gallbladder is contracted. IMPRESSION: 1. No evidence of central or segmental pulmonary embolus. The subsegmental pulmonary arteries are ria ewhat suboptimally evaluated given respiratory motion. 2. Chronic right middle lobe atelectasis. New 4 mm pulmonary nodule in the right lung apex for which follow-up CT in 12 months is recommended to establish debility. 3. Probable left paracentral subcutaneous chest wall fat necrosis anterior to the sternotomy wires. 4. Ventral hernia of the upper abdomen just below the sternum containing portions of the greater curv ature the stomach.
[2020-04-07] MEDS ORDERED: cefTRIAXone IN SWFI 1,000 MG/10 ML SYRINGE IVP STA (11:25)
[2020-04-07] MEDS ORDERED: AZITHROMYCIN 500 MG in SODIUM CHLORIDE 0.9% 250 ML IVPB STA (11:25)
[2020-04-07] MEDS ORDERED: guaiFENesin-Coden 100-10MG/5ML 10 ML CUP PO PRN (11:35)
[2020-04-07] MEDS ORDERED: TIOTROPIUM 18 MCG/PUFF INHALER INHALATION PRN (11:45)
--- NOTE | 2020-04-07 12:50 | P.HPIM ---
History of Present Illness 75-year-old male with known history of COPD came in with compensative cough patient has a chronic cough has been going on since 2019. Patient denied any sputum production. Patient the when I questioned say that he came in because of the chest pain which is in the midsternal area where he had a CABG and chest pain increases whenever he coughs. Patient denied any fever chills nausea vomiting denied any shortness of breath. Although upon evaluation by ER physician patient actually desaturated on 2 L because of which I was asked to monitor the patient admitted the patient treated for possible COPD although patient doesn't have any wheezing on exam may not benefit from any sort steroids will be discontinue patient will be given 1 dose of prednisone tomorrow patient was started on breathing treatments patient may have superimposed sleep apnea may be contributing to her shortness of breath meantime will also rule out acute coronary syndromes. If her to sleep more sets of troponins are negative and EKGs doesn't show any significant abnormality and if his saturations remained stable on 2-3 L of oxygen patient can be discharged patient doesn't exactly know how much arms and he uses at home presently on 4 L of oxygen saturating well. Patient had a CT angios the chest which did not show any significant abnormality EKG showed right bundle branch block no other acute ST-T wave changes. covid 19 was ruled out. Patient quit smoking in does have history of COPD Review of Systems REVIEW OF SYSTEMS: CONSTITUTIONAL: No fever, no malaise, no fatigue. HEENT: No recent visual problems or hearing problems. Denied any sore throat. CARDIOVASCULAR: No orthopnea, PND, no palpitations, no syncope. PULMONARY: As mentioned in HPI GASTROINTESTINAL: No diarrhea, no nausea, no vomiting, no abdominal pain. NEUROLOGICAL: No headaches, no weakness, no numbness. HEMATOLOGICAL: Denies any bleeding or petechiae. GENITOURINARY: Denies any burning micturition, frequency, or urgency. MUSCULOSKELETAL/RHEUMATOLOGICAL: Denies any joint pain, swelling, or any muscle pain. ENDOCRINE: Denies any polyuria or polydipsia. The rest of the 14-point review of systems is negative. Past Medical History Past Medical History: Coronary Artery Disease (CAD), Cancer, COPD, Diabetes Mellitus, Hyperlipidemia, Hypertension, Myocardial Infarction ([place]), Prostate Disorder Additional Past Medical History / Comment(s): prostate cancer with radiation > 20 years ago, nstemi, wears a brief incont urine/stool Last Myocardial Infarction Date:: 2017 History of Any Multi-Drug Resistant Organisms: ESBL, MRSA Date of last positivie culture/infection: 01/07/19 ESBL; 10/27/18 MRSA MDRO Source:: Urine-ESBL; Back-MRSA Past Surgical History: Coronary Bypass/CABG Additional Past Surgical History / Comment(s): 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,prostate bx, triple bypass 2017, bronchoscopy, picc line pt stated since removed Past Anesthesia/Blood Transfusion Reactions: No Reported Reaction Past Psychological History: No Psychological Hx Reported Smoking Status: Former smoker Past Alcohol Use History: None Reported Past Drug Use History: None Reported - Past Family History Father Additional Family Medical History / Comment(s): old age Mother Family Medical History: Coronary Artery Disease (CAD), Diabetes Mellitus Additional Family Medical History / Comment(s): CABG Medications and Allergies Home Medications Medication Instructions Recorded Confirmed Type Aspirin [Villarreal Aspirin EC] 81 mg PO DAILY 01/07/19 04/07/20 History Atorvastatin [Lipitor] 20 mg PO HS 01/07/19 04/07/20 History Cholecalciferol [Vitamin D3 (25 5,000 unit PO DAILY 01/07/19 04/07/20 History Mcg = 1000 Iu)] Finasteride [Proscar] 5 mg PO HS 01/07/19 04/07/20 History Potassium Chloride ER [K-Dur 20] 20 meq PO DAILY #30 tab.er.prt 01/11/19 04/07/20 Rx Metoprolol Tartrate 12.5 mg PO BID 02/05/19 04/07/20 History Sertraline HCl [Zoloft] 50 mg PO DAILY 02/05/19 04/07/20 History Tamsulosin [Flomax] 0.4 mg PO HS 07/06/19 04/07/20 History Furosemide [Lasix] 10 mg PO BID 02/06/20 04/07/20 History Insulin Glargine,Hum.rec.anlog 25 unit SQ HS 02/06/20 04/07/20 History [Lantus Solostar] Losartan Potassium [Cozaar] 25 mg PO DAILY 02/06/20 04/07/20 History Allergies Allergy/AdvReac Type Severity Reaction Status Date / Time No Known Allergies Allergy Verified 02/06/20 13:59 Physical Exam Vitals: Vital Signs Temp Pulse Resp BP Pulse Ox 04/07/20 11:58 65 18 167/87 97 04/07/20 09:18 16 04/07/20 09:14 71 18 157/78 95 04/07/20 08:21 99.0 F 89 20 156/82 97 Intake and Output 04/06/20 04/07/20 04/07/20 22:59 06:59 14:59 Other: Weight 97.522 kg PHYSICAL EXAMINATION: GENERAL: The patient is alert and oriented x3, not in any acute distress. Obese HEENT: Pupils are round and equally reacting to light. EOMI. No scleral icterus. No conjunctival pallor. Normocephalic, atraumatic. No pharyngeal erythema. No thyromegaly. CARDIOVASCULAR: S1 and S2 present. No murmurs, rubs, or gallops. PULMONARY: Chest is clear to auscultation, no wheezing or crackles. ABDOMEN: Soft, nontender, nondistended, normoactive bowel sounds. No palpable organomegaly. MUSCULOSKELETAL: No joint swelling or deformity. EXTREMITIES: No cyanosis, clubbing, or pedal edema. NEUROLOGICAL: Gross neurological examination did not reveal any focal deficits. SKIN: No rashes. Results CBC & Chem 7: 04/07/20 09:05 04/07/20 09:05 Labs: Abnormal Lab Results - Last 24 Hours (Table) 04/07/20 04/07/20 04/07/20 Range/Units 09:05 09:05 09:05 Plt Count 130 L (150-450) k/uL Lymphocytes # 0.3 L (1.0-4.8) k/uL D-Dimer 1.05 H (<0.60) mg/L FEU Sodium 135 L (137-145) mmol/L Potassium 5.3 H (3.5-5.1) mmol/L Glucose 143 H (74-99) mg/dL Magnesium 1.4 L (1.6-2.3) mg/dL C-Reactive Protein 43.2 H (<10.0) mg/L Assessment and Plan Plan: acute hypoxic respiratory failure: Patient probably has sleep apnea, patient does have COPD both of them together may have contributed to mild hypoxemia, patient was given systemic steroids will restart him on inhalational treatments, patient probably can be discharged tomorrow will benefit from an outpatient sleep study to get I do not believe patient will need any systemic steroids will be started on inhaled steroids and given a dose of prednisone tomorrow after that he may not need to continue oral prednisone as he is not wheezing much. -Cough chronic may be related to test esophageal reflux disease patient was started on Protonix upon discharge can try 2 weeks of Protonix and see if that improves his cough. Symptomatic treatment for cough Chest pain musculoskeletal will rule out a concurrent syndromes patient just p ain increases whenever he coughs. His chest pain is reproducible. -Coronary artery disease: Patient had a CABG in the past continue with his medications -mild acute renal failure: Hold off on diuretics and losartan repeat basic metabolic profile tomorrow she doesn't have any evidence of heart failure doesn't appear to have any heart failure history either to systolic and diastolic 4 mild hyperkalemia secondary to renal failure and losartan. And is being held -Hypomagnesemia magnesium will be replaced -Elevated d-dimer to rule out PE negative CT angios the chest -COPD with acute exacerbation -Hyperlipidemia -Benign prostatic hypertrophic -DVT prophylaxis with Lovenox
[2020-04-07 13:05] LABS: Glucose,Whole Blood 173 mg/dL (75-99)
[2020-04-07] MEDS: MAGNESIUM SULFATE-D5W PMX 1 GM in DEXTROSE/WATER 1 100ML.BAG IVPB SCH ×3 (14:55→21:50)
[2020-04-07] MEDS ORDERED: methylPREDNISolone SOD SUCCI 125 MG/2 ML VIAL IV SCH (15:00)
[2020-04-07] MEDS: ALBUTEROL HFA INHALER INHALATION PRN ×2 (16:17→21:35)
[2020-04-07 17:03] LABS: Glucose,Whole Blood 264 mg/dL (75-99)
[2020-04-07] MEDS: PANTOPRAZOLE 40 MG/10 ML VIAL IVP SCH (18:06)
[2020-04-07] MEDS: INSULIN ASPART (NovoLOG) 100 UNIT/ML VIAL SQ SCH ×2 (18:24→21:51)
[2020-04-07 18:44] LABS: Ferritin 337.4 ng/mL (22.0-322.0)
[2020-04-07] MEDS ORDERED: INSULIN DETEMIR (LEVEMIR) 100 UNIT/ML SYR SQ SCH (21:00)
[2020-04-07] MEDS ORDERED: ATORVASTATIN 20 MG TAB PO SCH (21:00)
[2020-04-07] MEDS ORDERED: FINASTERIDE 5 MG TAB PO SCH (21:00)
[2020-04-07] MEDS ORDERED: TAMSULOSIN 0.4 MG CAP.ER.24H PO SCH (21:00)
[2020-04-07 21:07] LABS: Glucose,Whole Blood 222 mg/dL (75-99)
[2020-04-07] MEDS: METOPROLOL TARTRATE 12.5 MG TAB PO SCH (21:51)
[2020-04-08 07:16] LABS: Glucose,Whole Blood 194 mg/dL (75-99)
[2020-04-08 07:37] VITALS: TEMP 97.6
[2020-04-08] MEDS: INSULIN ASPART (NovoLOG) 100 UNIT/ML VIAL SQ SCH ×3 (07:53→17:06)
[2020-04-08] MEDS: METOPROLOL TARTRATE 12.5 MG TAB PO SCH (08:10)
[2020-04-08] MEDS: PANTOPRAZOLE 40 MG/10 ML VIAL IVP SCH (08:10)
[2020-04-08] MEDS: ALBUTEROL HFA INHALER INHALATION PRN ×3 (08:11→15:50)
[2020-04-08 08:45] LABS: HCT 40.7 % (39.0-53.0); HGB 13.3 gm/dL (13.0-17.5); Hypochromasia Slight; MCHC 32.6 g/dL (31.0-37.0); MCV 94.9 fL (80.0-100.0); Mean Platelet Volume 8.7; Platelet Count 225 k/uL (150-450); RBC 4.29 m/uL (4.30-5.90); RDW 14.5 % (11.5-15.5); WBC 9.7 k/uL (3.8-10.6)
[2020-04-08 08:51] LABS: Calcium 9.2 mg/dL (8.4-10.2); Potassium 4.9 mmol/L (3.5-5.1)
[2020-04-08] MEDS ORDERED: SERTRALINE 50 MG TAB PO SCH (09:00)
[2020-04-08] MEDS ORDERED: ASPIRIN 81 MG PO SCH (09:00)
[2020-04-08] MEDS ORDERED: ENOXAPARIN 40 MG/0.4 ML SYRINGE SQ SCH (09:00)
[2020-04-08] MEDS ORDERED: AZITHROMYCIN 500 MG TAB PO SCH (09:00)
[2020-04-08] MEDS ORDERED: predniSONE 20 MG TAB PO SCH (09:00)
[2020-04-08 11:55] LABS: Glucose,Whole Blood 191 mg/dL (75-99)
[2020-04-08 16:21] VITALS: BP 156/70; PULSE 51; RESP 18
[2020-04-08 16:56] LABS: Glucose,Whole Blood 181 mg/dL (75-99)
--- NOTE | 2020-04-08 22:16 | P.DS ---
Providers Date of admission: 04/07/20 11:51 Expected date of discharge: 04/08/20 Attending physician: Roxy Mccord Primary care physician: Abdirahman [facility] Course: 75-year-old male with known history of COPD, coronary artery disease, diabetes mellitus, hypertension, hyperlipidemia, prostate disorder coming into the hospital with a chief complaint of chest pain in the midsternal area where he had the CABG and also increased cough production. Patient is not having any fevers, chills, nausea or vomiting. In the emergency department patient was desaturating on 2 L of oxygen so he was admitted for possible COPD exacerbation. Patient had 2 sets of troponins and EKGs without any significant abnormalities. Patient was started on azithromycin and prednisone dose was increased. Today the patient states that he is still having some chest discomfort. But he wants to go home. I discussed with him that if he continues to have the chest pain, he would be monitored. Later on in the evening , I got a call from the nursing staff that the patient left the hospital AGAINST MEDICAL ADVICE. - Vital Signs Vital signs: Vital Signs Temp 97.6 F 04/08/20 15:00 Pulse 51 L 04/08/20 15:00 Resp 18 04/08/20 15:00 BP 156/70 04/08/20 15:00 Pulse Ox 94 L 04/08/20 15:00 Intake & Output 04/07/20 04/08/20 04/08/20 18:59 06:59 18:59 Intake Total 450 1826 Balance 450 1826 Weight 97.522 kg Intake: Oral 450 1826 Other: Voiding Method Toilet Toilet Toilet Urinal Urinal Urinal # Voids 2 1 1 PHYSICAL EXAMINATION: GENERAL: The patient is alert and oriented x3, not in any acute distress. Obese CARDIOVASCULAR: S1 and S2 present. No murmurs, rubs, or gallops. PULMONARY: decreased BS in all lung [place], mild wheeze. ABDOMEN: Soft, nontender, nondistended, normoactive bowel sounds. No palpable organomegaly. EXTREMITIES: No cyanosis, clubbing, or pedal edema. NEUROLOGICAL: Gross neurological examination did not reveal any focal deficits. SKIN: No rashes. DISCHARGE DIAGNOSIS - Acute hypoxic respiratory failure - possible COPD exacerbation vs OHS - Cough chronic - Chest pain -musculoskeletal -Coronary artery disease - KAVITHA mild due t -Hypomagnesemia -Elevated d-dimer PE negative on CT angio of the chest -COPD with acute exacerbation -Hyperlipidemia -Benign prostatic hypertrophic Pt left AMA. Patient Condition at Discharge: Poor Plan - Discharge Summary Discharge Rx Participant: Yes New Discharge Prescriptions: No Action Atorvastatin [Lipitor] 20 mg PO HS Finasteride [Proscar] 5 mg PO HS Cholecalciferol [Vitamin D3 (25 Mcg = 1000 Iu)] 5,000 unit PO DAILY Aspirin [Hendry Aspirin EC] 81 mg PO DAILY Potassium Chloride ER [K-Dur 20] 20 meq PO DAILY #30 tab.er.prt Metoprolol Tartrate 12.5 mg PO BID Sertraline HCl [Zoloft] 50 mg PO DAILY Tamsulosin [Flomax] 0.4 mg PO HS Furosemide [Lasix] 10 mg PO BID Insulin Glargine,Hum.rec.anlog [Lantus Solostar] 25 unit SQ HS Losartan Potassium [Cozaar] 25 mg PO DAILY Discharge Medication List Aspirin [Hendry Aspirin EC] 81 mg PO DAILY 01/07/19 [History] Atorvastatin [Lipitor] 20 mg PO HS 01/07/19 [History] Cholecalciferol [Vitamin D3 (25 Mcg = 1000 Iu)] 5,000 unit PO DAILY 01/07/19 [History] Finasteride [Proscar] 5 mg PO HS 01/07/19 [History] Potassium Chloride ER [K-Dur 20] 20 meq PO DAILY #30 tab.er.prt 01/11/19 [Rx] Metoprolol Tartrate 12.5 mg PO BID 02/05/19 [History] Sertraline HCl [Zoloft] 50 mg PO DAILY 02/05/19 [History] Tamsulosin [Flomax] 0.4 mg PO HS 07/06/19 [History] Furosemide [Lasix] 10 mg PO BID 02/06/20 [History] Insulin Glargine,Hum.rec.anlog [Lantus Solostar] 25 unit SQ HS 02/06/20 [History] Losartan Potassium [Cozaar] 25 mg PO DAILY 02/06/20 [History] Follow up Appointment(s)/Referral(s): Abdirahman Rodriguez III, MD [Primary Care Provider] - 1-2 days Discharge Disposition: Left Against Medical Advice
[2020-04-09] MEDS ORDERED: PANTOPRAZOLE 40 MG TABLET PO SCH (07:30)
--- NOTE | 2020-04-12 13:26 | CDI ---
Date: 04.12.20 CDS/[employer] Manager Name: Rhea Mcpherson Phone: If any questions, call Ruthie Segura [facility] at [phone] Patient Name: Cristo Perez Admit Date: 04.07.20 Discharge Date: 04.08.20 ATTENTION: The [facility] Coding Staff appreciate your assistance in clarifying documentation. Please respond to the clarification below the line at the bottom and electronically sign. The [facility] Coding staff will review the response and follow-up if needed. Please note: Queries are made part of the Legal Health Record. If you have any questions, please contact the [facility]. Dear Dr. Hodges In the discharge summary the first diagnosis listed you have Acute hypoxic respiratory failure possible COPD exacerbation vs OHS and on the eighth diagnosis listed you have COPD w/acute exacerbation. Please specify whether or not pt had COPD w/acute exacerbation. Thank you for your kind consideration. MTDD
== END 2020-04-08 19:45 | disposition left against medical advice (07) ==
LOC: SUPCPDRO 08:18 → EC 08:18 → 4SSUR 11:51
PROVIDERS: ADMIT Hospitalist; ATTEND Hospitalist
DX: J96.01 Acute respiratory failure with hypoxia (principal); J44.1 Chronic obstructive pulmonary disease with (acute) exacerbation; Z53.29 Procedure and treatment not carried out because of patient's decision for other reasons; I25.10 Atherosclerotic heart disease of native coronary artery without angina pectoris; N17.9 Acute kidney failure, unspecified; E83.42 Hypomagnesemia; E78.5 Hyperlipidemia, unspecified; N40.1 Benign prostatic hyperplasia with lower urinary tract symptoms; N39.498 Other specified urinary incontinence; R79.1 Abnormal coagulation profile; R19.7 Diarrhea, unspecified; E11.9 Type 2 diabetes mellitus without complications; I10 Essential (primary) hypertension; I25.2 Old myocardial infarction; R15.9 Full incontinence of feces; I45.10 Unspecified right bundle-branch block; E87.5 Hyperkalemia; E66.9 Obesity, unspecified; Z68.36 Body mass index [BMI] 36.0-36.9, adult; Z11.59 Encounter for screening for other viral diseases; Z87.891 Personal history of nicotine dependence; Z79.82 Long term (current) use of aspirin; Z79.899 Other long term (current) drug therapy; Z79.4 Long term (current) use of insulin; Z79.01 Long term (current) use of anticoagulants; Z85.46 Personal history of malignant neoplasm of prostate; Z92.3 Personal history of irradiation; Z86.14 Personal history of Methicillin resistant Staphylococcus aureus infection; Z86.19 Personal history of other infectious and parasitic diseases; Z95.1 Presence of aortocoronary bypass graft; Z90.5 Acquired absence of kidney; Z98.890 Other specified postprocedural states; Z82.49 Family history of ischemic heart disease and other diseases of the circulatory system; Z83.3 Family history of diabetes mellitus
CPT/HCPCS: 96376; 96366 ×2; 96367; 96372; 96375 ×2; 96365; 99285; 36415; 94640 ×4; 93005; 85379; 83880; 80053; 80048; 82728; 83605; 83615; 83735; 84484; 85025; 85027; 85610; 85730; 86140; 87040; 84145; 87635; 71045; 71275; G0378 ×2; S0138; J2930; J0456; J1650; J0696; J3475; J7512; C9113 ×2; Q9967

== ENCOUNTER → 2020-04-13 | Outpatient (CLI) | payer MEDICARE, OTHER | END | disposition home or self-care (01) | LOC: LABWHC1 11:55 | PROVIDERS: ATTEND Surgery | DX: U07.1 COVID-19 (principal) | CPT/HCPCS: 87635 ==

== ENCOUNTER 2020-04-17 11:18 | Day surgery (SDC) | payer MEDICARE, OTHER ==
[~2020-04-17 11:18] MED LIST: LACTATED RINGERS 1,000 ML IV SCH
[2020-04-17 12:04] VITALS: RESP 20; TEMP 97
[2020-04-17 12:14] LABS: Glucose,Whole Blood 135 mg/dL (75-99)
[2020-04-17] MEDS ORDERED: PROPOFOL 10 MG/ML 20 ML VIAL IV ONE (12:30)
--- NOTE | 2020-04-17 12:33 | P.GSHP ---
History of Present Illness H&P Date: 04/17/20 Chief Complaint: Rectal bleeding This a 75-year-old male with history of rectal bleeding. Patient presents today for colonoscopy. Past Medical History Past Medical History: Coronary Artery Disease (CAD), Cancer, COPD, Diabetes Mellitus, Hyperlipidemia, Hypertension, Myocardial Infarction ([place]), Prostate Disorder Additional Past Medical History / Comment(s): prostate cancer with radiation > 20 years ago, nstemi, wears a brief incont urine/stool Last Myocardial Infarction Date:: 2017 History of Any Multi-Drug Resistant Organisms: ESBL, MRSA Date of last positivie culture/infection: 01/07/19 ESBL; 10/27/18 MRSA MDRO Source:: Urine-ESBL; Back-MRSA Past Surgical History: Coronary Bypass/CABG Additional Past Surgical History / Comment(s): 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,prostate bx, triple bypass 2017, bronchoscopy, picc line pt stated since removed Past Anesthesia/Blood Transfusion Reactions: No Reported Reaction Past Psychological History: No Psychological Hx Reported Additional Psychological History / Comment(s): pt was dc'd from [facility] 01-01-19. lives with son, has vna, wheel chair, walker , nebulizer Smoking Status: Former smoker Past Alcohol Use History: None Reported Additional Past Alcohol Use History / Comment(s): quit smoking 1979 (prior to that 3 packs/day since his teens) Past Drug Use History: None Reported - Past Family History Father Additional Family Medical History / Comment(s): old age Mother Family Medical History: Coronary Artery Disease (CAD), Diabetes Mellitus Additional Family Medical History / Comment(s): CABG Medications and Allergies Home Medications Medication Instructions Recorded Confirmed Type Aspirin [[place]ill Aspirin EC] 81 mg PO DAILY 01/07/19 04/14/20 History Atorvastatin [Lipitor] 20 mg PO HS 01/07/19 04/14/20 History Cholecalciferol [Vitamin D3 (25 5,000 unit PO DAILY 01/07/19 04/14/20 History Mcg = 1000 Iu)] Finasteride [Proscar] 5 mg PO HS 01/07/19 04/14/20 History Potassium Chloride ER [K-Dur 20] 20 meq PO DAILY #30 tab.er.prt 01/11/19 04/14/20 Rx Metoprolol Tartrate 12.5 mg PO BID 02/05/19 04/14/20 History Sertraline HCl [Zoloft] 50 mg PO DAILY 02/05/19 04/14/20 History Tamsulosin [Flomax] 0.4 mg PO HS 07/06/19 04/14/20 History Furosemide [Lasix] 10 mg PO BID 02/06/20 04/14/20 History Insulin Glargine,Hum.rec.anlog 25 unit SQ HS 02/06/20 04/14/20 History [Lantus Solostar] Losartan Potassium [Cozaar] 25 mg PO DAILY 02/06/20 04/14/20 History Allergies Allergy/AdvReac Type Severity Reaction Status Date / Time No Known Allergies Allergy Verified 04/14/20 12:18 Surgical - Exam Vital Signs Temp Pulse Resp BP Pulse Ox 97 F L 78 20 148/67 97 04/17/20 11:58 04/17/20 11:58 04/17/20 11:58 04/17/20 11:58 04/17/20 11:58 - General well developed, well nourished, no distress - Eyes PERRL - ENT normal pinna - Neck no masses - Respiratory normal expansion - Cardiovascular Rhythm: regular - Abdomen Abdomen: soft, non tender Results - Labs Abnormal Lab Results - Last 24 Hours (Table) 04/17/20 Range/Units 12:12 POC Glucose (mg/dL) 135 H (75-99) mg/dL Assessment and Plan Assessment: Rectal bleeding. We'll perform colonoscopy
--- NOTE | 2020-04-17 12:46 | P.OP ---
Date of Procedure: 04/17/20 Preoperative Diagnosis: Rectal bleeding Postoperative Diagnosis: Diverticulosis Proctitis Procedure(s) Performed: Colonoscopy Anesthesia: MAC Surgeon: Chang Pineda Pathology: other (Rectum) Condition: stable Disposition: PACU Description of Procedure: Patient's placed on the endoscopy table in the lateral position. He received IV sedation. Digital rectal exam was performed which revealed no abnormalities. Possible colonoscope was then placed patient anus and passed throughout the entire colon. The ileocecal valve visualized. The cecum, ascending and transverse colon appeared normal. The descending sigmoid colon there is extensive diverticular changes. There is no evidence of any diverticular bleeding. Scope was brought back the rectum and this appeared to be inflammation of the distal rectum. This was biopsied. Patient top she will was sent to recovery in stable condition
[2020-04-17 13:03] VITALS: BP 132/62; PULSE 71
== END 2020-04-17 13:30 | disposition home or self-care (01) ==
LOC: ORWHC2ENDO 11:18
PROVIDERS: ATTEND Surgery
DX: K62.1 Rectal polyp (principal); K62.89 Other specified diseases of anus and rectum; K57.30 Diverticulosis of large intestine without perforation or abscess without bleeding; I25.2 Old myocardial infarction; I25.10 Atherosclerotic heart disease of native coronary artery without angina pectoris; I10 Essential (primary) hypertension; E78.5 Hyperlipidemia, unspecified; E11.9 Type 2 diabetes mellitus without complications; J44.9 Chronic obstructive pulmonary disease, unspecified; Z79.4 Long term (current) use of insulin; Z79.82 Long term (current) use of aspirin; Z79.899 Other long term (current) drug therapy; Z95.1 Presence of aortocoronary bypass graft; Z85.46 Personal history of malignant neoplasm of prostate; Z92.3 Personal history of irradiation; Z86.14 Personal history of Methicillin resistant Staphylococcus aureus infection; Z90.5 Acquired absence of kidney; Z99.3 Dependence on wheelchair; Z87.891 Personal history of nicotine dependence; Z82.49 Family history of ischemic heart disease and other diseases of the circulatory system; Z83.3 Family history of diabetes mellitus
CPT/HCPCS: 45380; J2704; 88305

== ENCOUNTER 2020-07-27 13:20 | Observation (INO) | payer MEDICARE, OTHER ==
[2020-07-27] MEDS ORDERED: NITROGLYCERIN OINT 1 INCH/GM PACKET TOPICAL STA (13:44)
[2020-07-27] MEDS ORDERED: ASPIRIN 81 MG PO STA (13:44)
--- NOTE | 2020-07-27 13:47 | ED ---
General Adult HPI - General Chief complaint: Chest Pain Stated complaint: Chest Pains-Sent by PCP Time Seen by Provider: 07/27/20 13:32 Source: patient, RN notes reviewed Mode of arrival: wheelchair Limitations: no limitations - History of Present Illness Initial comments: Patient is a pleasant 75-year-old male presenting to the emergency Department with complaints of chest discomfort. Onset of symptoms was this morning. Patient has mild pressure in his chest however symptoms do worsen with deep breaths and position changes. Patient denies dyspnea. Patient states there is mild nausea. No diaphoresis. Patient does have cardiac history however previous symptoms were not similar to this. No leg pain or leg swelling. Patient did see his primary care physician, Dr. Grant prior to arrival who advised patient come to the emergency department. - Related Data Home Medications Medication Instructions Recorded Confirmed Aspirin [[place] Aspirin EC] 81 mg PO DAILY 01/07/19 07/27/20 Atorvastatin [Lipitor] 20 mg PO HS 01/07/19 07/27/20 Cholecalciferol [Vitamin D3 (25 5,000 unit PO DAILY 01/07/19 07/27/20 Mcg = 1000 Iu)] Finasteride [Proscar] 5 mg PO HS 01/07/19 07/27/20 Metoprolol Tartrate 12.5 mg PO BID 02/05/19 07/27/20 Sertraline HCl [Zoloft] 50 mg PO DAILY 02/05/19 07/27/20 Tamsulosin [Flomax] 0.4 mg PO HS 07/06/19 07/27/20 Furosemide [Lasix] 20 mg PO DAILY 02/06/20 07/27/20 Insulin Glargine,Hum.rec.anlog 25 unit SQ HS 02/06/20 07/27/20 [Lantus Solostar] Losartan Potassium [Cozaar] 25 mg PO HS 02/06/20 07/27/20 Acetaminophen [Tylenol Arthritis] 650 mg PO Q8H PRN 07/27/20 07/27/20 Ferrous Sulfate [Feosol] 325 mg PO DAILY 07/27/20 07/27/20 Fluticasone Nasal [place] [Flonase 1 spr EA NOSTRIL BID PRN 07/27/20 07/27/20 Nasal [place]] Ipratropium-Albuterol Nebulize 3 ml INHALATION RT-QID PRN 07/27/20 07/27/20 [Duoneb 0.5 mg-3 mg/3 ml Soln] Previous Rx's Medication Instructions Recorded Potassium Chloride ER [K-Dur 20] 20 meq PO DAILY #30 tab.er.prt 01/11/19 Allergies Allergy/AdvReac Type Severity Reaction Status Date / Time No Known Allergies Allergy Verified 07/27/20 15:50 Review of Systems ROS Statement: Those systems with pertinent positive or pertinent negative responses have been documented in the HPI. ROS Other: All systems not noted in ROS Statement are negative. Constitutional: Denies: fever Eyes: Denies: eye pain ENT: Denies: ear pain Respiratory: Denies: cough Cardiovascular: Reports: chest pain Endocrine: Denies: fatigue Gastrointestinal: Denies: abdominal pain Genitourinary: Denies: dysuria Musculoskeletal: Denies: back pain Skin: Denies: rash Neurological: Denies: weakness Past Medical History Past Medical History: Coronary Artery Disease (CAD), Cancer, COPD, Diabetes Mellitus, Hyperlipidemia, Hypertension, Myocardial Infarction ([place]), Prostate Disorder Additional Past Medical History / Comment(s): prostate cancer with radiation > 20 years ago, nstemi, wears a brief incont urine/stool Last Myocardial Infarction Date:: 2017 History of Any Multi-Drug Resistant Organisms: ESBL, MRSA Date of last positivie culture/infection: 01/07/19 ESBL; 10/27/18 MRSA MDRO Source:: Urine-ESBL; Back-MRSA Past Surgical History: Coronary Bypass/CABG Additional Past Surgical History / Comment(s): 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,prostate bx, triple bypass 2017, bronchoscopy, picc line pt stated since removed Past Anesthesia/Blood Transfusion Reactions: No Reported Reaction Past Psychological History: No Psychological Hx Reported Smoking Status: Former smoker Past Alcohol Use History: None Reported Past Drug Use History: None Reported - Past Family History Father Additional Family Medical History / Comment(s): old age Mother Family Medical History: Coronary Artery Disease (CAD), Diabetes Mellitus Additional Family Medical History / Comment(s): CABG General Exam Limitations: no limitations General appearance: alert, in no apparent distress Head exam: Present: normocephalic Eye exam: Present: normal appearance Neck exam: Present: normal inspection Respiratory exam: Present: normal lung sounds bilaterally. Absent: chest wall tenderness Cardiovascular Exam: Present: regular rate, normal rhythm Expanded Peripheral pulses: 2+: Radial (R), Radial (L), Dorsalis Pedis (R), Dorsalis Pedis (L) GI/Abdominal exam: Present: soft. Absent: tenderness Extremities exam: Present: normal inspection. 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 SC 184. QRS 144. QT 352. QTC 439. Left axis. Right bundle branch block. LVH criteria. Nonspecific T waves. Medical Decision Making - Medical Decision Making Patient reevaluated and resting comfortably in bed. Symptoms have improved however remain a little bit. Patient and family are updated on results and plan. Case discussed in detail with Dr. Adam, who will admit covering for Dr. Grant. - Lab Data Result diagrams: 07/27/20 14:10 07/27/20 14:10 Lab Results 07/27/20 07/27/20 07/27/20 Range/Units 14:10 14:10 14:10 WBC 6.5 (3.8-10.6) k/uL RBC 4.59 (4.30-5.90) m/uL Hgb 13.4 (13.0-17.5) gm/dL Hct 42.1 (39.0-53.0) % MCV 91.8 (80.0-100.0) fL MCH 29.2 (25.0-35.0) pg MCHC 31.8 (31.0-37.0) g/dL RDW 14.6 (11.5-15.5) % Plt Count 164 (150-450) k/uL Neutrophils % 80 % Lymphocytes % 11 % Monocytes % 5 % Eosinophils % 2 % Basophils % 1 % Neutrophils # 5.2 (1.3-7.7) k/uL Lymphocytes # 0.7 L (1.0-4.8) k/uL Monocytes # 0.3 (0-1.0) k/uL Eosinophils # 0.1 (0-0.7) k/uL Basophils # 0.1 (0-0.2) k/uL PT 9.6 (9.0-12.0) sec INR 0.9 (<1.2) APTT 22.2 (22.0-30.0) sec D-Dimer 0.51 (<0.60) mg/L FEU Sodium 136 L (137-145) mmol/L Potassium 5.1 (3.5-5.1) mmol/L Chloride 107 (98-107) mmol/L Carbon Dioxide 22 (22-30) mmol/L Anion Gap 7 mmol/L BUN 23 H (9-20) mg/dL Creatinine 1.16 (0.66-1.25) mg/dL Est GFR (CKD-EPI)AfAm 71 (>60 ml/min/1.73 sqM) Est GFR (CKD-EPI)NonAf 62 (>60 ml/min/1.73 sqM) Glucose 138 H (74-99) mg/dL Calcium 9.6 (8.4-10.2) mg/dL Magnesium 1.6 (1.6-2.3) mg/dL Total Bilirubin 0.6 (0.2-1.3) mg/dL AST 27 (17-59) U/L ALT 22 (4-49) U/L Alkaline Phosphatase 79 (38-126) U/L Troponin I (0.000-0.034) ng/mL Total Protein 6.2 L (6.3-8.2) g/dL Albumin 4.0 (3.5-5.0) g/dL 07/27/20 Range/Units 14:10 WBC (3.8-10.6) k/uL RBC (4.30-5.90) m/uL Hgb (13.0-17.5) gm/dL Hct (39.0-53.0) % MCV (80.0-100.0) fL MCH (25.0-35.0) pg MCHC (31.0-37.0) g/dL RDW (11.5-15.5) % Plt Count (150-450) k/uL Neutrophils % % Lymphocytes % % Monocytes % % Eosinophils % % Basophils % % Neutrophils # (1.3-7.7) k/uL Lymphocytes # (1.0-4.8) k/uL Monocytes # (0-1.0) k/uL Eosinophils # (0-0.7) k/uL Basophils # (0-0.2) k/uL PT (9.0-12.0) sec INR (<1.2) APTT (22.0-30.0) sec D-Dimer (<0.60) mg/L FEU Sodium (137-145) mmol/L Potassium (3.5-5.1) mmol/L Chloride (98-107) mmol/L Carbon Dioxide (22-30) mmol/L Anion Gap mmol/L BUN (9-20) mg/dL Creatinine (0.66-1.25) mg/dL Est GFR (CKD-EPI)AfAm (>60 ml/min/1.73 sqM) Est GFR (CKD-EPI)NonAf (>60 ml/min/1.73 sqM) Glucose (74-99) mg/dL Calcium (8.4-10.2) mg/dL Magnesium (1.6-2.3) mg/dL Total Bilirubin (0.2-1.3) mg/dL AST (17-59) U/L ALT (4-49) U/L Alkaline Phosphatase (38-126) U/L Troponin I 0.014 (0.000-0.034) ng/mL Total Protein (6.3-8.2) g/dL Albumin (3.5-5.0) g/dL - Radiology Data Radiology results: image reviewed (Limited exam. Cardiomegaly and probable atelectasis) Disposition Clinical Impression: Chest pain Disposition: [facility] Is patient prescribed a controlled substance at d/c from ED?: No Referrals: Joy Reagan DO [REFERRING] - 1-2 days Decision Time: 16:19
[2020-07-27 14:26] LABS: Basophils # (A) 0.1 k/uL (0-0.2); Basophils % (A) 1 %; Eosinophils # (A) 0.1 k/uL (0-0.7); Eosinophils % (A) 2 %; HCT 42.1 % (39.0-53.0); HGB 13.4 gm/dL (13.0-17.5); Lymphocytes # (A) 0.7 k/uL (1.0-4.8); Lymphocytes % (A) 11 %; MCH 29.2 pg (25.0-35.0); MCHC 31.8 g/dL (31.0-37.0); MCV 91.8 fL (80.0-100.0); Mean Platelet Volume 7.9; Monocytes # (A) 0.3 k/uL (0-1.0); Monocytes % (A) 5 %; Neutrophils # (A) 5.2 k/uL (1.3-7.7); Neutrophils % (A) 80 %; Platelet Count 164 k/uL (150-450); RBC 4.59 m/uL (4.30-5.90); RDW 14.6 % (11.5-15.5); WBC 6.5 k/uL (3.8-10.6)
[2020-07-27 14:39] LABS: Calcium 9.6 mg/dL (8.4-10.2); Magnesium 1.6 mg/dL (1.6-2.3); Potassium 5.1 mmol/L (3.5-5.1); Total Bilirubin 0.6 mg/dL (0.2-1.3); Total Protein 6.2 g/dL (6.3-8.2)
--- NOTE | 2020-07-27 14:50 | XR ---
EXAMINATION TYPE: XR chest 2V DATE OF EXAM: 07/27/2020 COMPARISON: 04/07/2020 HISTORY: 75-year-old male with chest pain TECHNIQUE: AP and lateral views FINDINGS: External fixation hardware is present. Heart mildly enlarged. Continued asymmetric elevation right he midiaphragm. Some patchy right basilar opacity is noted. Additional patchy peripheral left basilar op acity. No effusion seen on the lateral view. Limited due to portable technique and large patient body habitus. IMPRESSION: Limited, portable exam. There is cardiomegaly and patchy bibasilar atelectasis favored over infiltrat es. Follow-up as clinically indicated.
[2020-07-27 14:53] LABS: D-Dimer 0.51 mg/L FEU (<0.60); INR 0.9 (<1.2); Partial Thromboplastin Time 22.2 sec (22.0-30.0); Prothrombin Time 9.6 sec (9.0-12.0)
[2020-07-27] MEDS ORDERED: NITROGLYCERIN SL TABS 0.4 MG TAB SUBLINGUAL PRN (16:20)
[2020-07-27] MEDS: NITROGLYCERIN OINT 1 INCH/GM PACKET TOPICAL SCH (18:14)
[2020-07-27] MEDS ORDERED: ACETAMINOPHEN TAB 325 MG TAB PO PRN (18:27)
[2020-07-27] MEDS ORDERED: FLUTICASONE 50MCG/SPRAY NASAL 16GM EA NOSTRIL PRN (18:27)
[2020-07-27 21:23] LABS: Glucose,Whole Blood 137 mg/dL (75-99)
[2020-07-27] MEDS: METOPROLOL TARTRATE 12.5 MG TAB PO SCH (21:36)
[2020-07-27] MEDS: TAMSULOSIN 0.4 MG CAP.ER.24H PO SCH (21:36)
[2020-07-27] MEDS: LOSARTAN 25 MG TAB PO SCH (21:36)
[2020-07-27] MEDS: ATORVASTATIN 20 MG TAB PO SCH (21:37)
[2020-07-27] MEDS: FINASTERIDE 5 MG TAB PO SCH (21:37)
[2020-07-27] MEDS: INSULIN DETEMIR (LEVEMIR) 100 UNIT/ML SYR SQ SCH (21:38)
[2020-07-27] MEDS: INSULIN ASPART (NovoLOG) 100 UNIT/ML VIAL SQ SCH (21:39)
[2020-07-28] MEDS: NITROGLYCERIN OINT 1 INCH/GM PACKET TOPICAL SCH ×2 (00:36→05:28)
[2020-07-28 03:52] LABS: Cholesterol 102 mg/dL (<200); HDL Cholesterol 28 mg/dL (40-60); LDL Cholesterol,Calculated 36 mg/dL (0-99); Triglycerides 191 mg/dL (<150)
[2020-07-28 06:49] LABS: Glucose,Whole Blood 117 mg/dL (75-99)
[2020-07-28] MEDS: IPRATROPIUM-ALBUTEROL 3 ML NEB INHALATION PRN ×3 (07:18→19:13)
[2020-07-28] MEDS: INSULIN ASPART (NovoLOG) 100 UNIT/ML VIAL SQ SCH ×4 (07:27→21:07)
[2020-07-28] MEDS ORDERED: REGADENOSON 0.4 MG/5 ML SYRINGE IV ONE (08:42)
[2020-07-28] MEDS ORDERED: AMINOPHYLLINE 500 MG/20 ML VIAL IV PRN (08:42)
[2020-07-28] MEDS ORDERED: CAFFEINE CITRATE 60 MG/3 ML VIAL IV PRN (08:42)
--- NOTE | 2020-07-28 08:53 | P.CRDCN ---
History of Present Illness History of present illness: HISTORY OF PRESENTING ILLNESS This is a pleasant 75-year-old male past medical history significant for ordinary artery disease status post bypass grafting, diabetes mellitus, hypertension, dyslipidemia and myocardial infarction. He underwent cardiac catheterization August 2018 in the setting of a non-ST elevated myocardial infarction revealing 100% occlusion of the RCA after the conus branch, 70% disease in the left main, 70% disease in the mid LAD and 80% disease in the 1 branch of the circumflex. He underwent CHAHAL to LAD, SVG to OM and SVG to the PDA branch of RCA. He follows in the office with Dr. Harper. We have been asked to see in consultation for chest pain. He states he woke up yesterday morning with a pain in the right anterior chest wall that was sharp and tight. There was radiation to the right shoulder and down the right arm. He had some associated shortness of breath. He also felt mildly nauseated. He states the pain is worse than any pain he has ever felt in the past. It resolved last night with application of a hot pack. He denies exacerbation with movement of his right arm. He denies any recent trauma or new activity. He also complains of a nonproductive dry cough at times. DIAGNOSTICS EKG reveals sinus bradycardia heart rate 57, right bundle branch block and left axis deviation. Chest xray patchy basilar atelectasis noted. Laboratory reviewed, CBC unremarkable, d-dimer 0.51, sodium 136, potassium 5.1, creatinine 1.16, magnesium 1.6, cardiac enzymes negative 3, LDL 36 and HDL 28. Current cardiac medications include aspirin 81 mg daily, atorvastatin 20 mg daily, losartan 25 mg daily, Lopressor 12.5 mg twice a day and Lasix 20 mg daily. Most recent echocardiogram obtained in January 2019 revealed preserved LV systolic function with ejection fraction 55%, mild MR and mild TR. REVIEW OF SYSTEMS At the time of my exam: CONSTITUTIONAL: Denies fever or chills. CARDIOVASCULAR: Denies chest pain, shortness of breath, orthopnea, PND or palpitations. RESPIRATORY: Denies cough. GASTROINTESTINAL: Denies abdominal pain, diarrhea, constipation, nausea or vomiting. MUSCULOSKELETAL: Denies myalgias. NEUROLOGIC: Denies numbness, tingling or weakness. ENDOCRINE: Denies fatigue, weight change, polydipsia or polyurina. GENITOURINARY: Denies burning, hematuria or urgency with micturation. HEMATOLOGIC: Denies history of anemia or bleeding. PHYSICAL EXAMINATION Blood pressure 146/61 heart rate 52 afebrile and maintaining oxygen saturation on nasal cannula. CONSTITUTIONAL: No apparent distress. HEENT: Head is normocephalic. Pupils are equal, round. Sclerae anicteric. Mucous membranes of the mouth are moist. No JVD. No carotid bruit. CHEST EXAMINATION: Diminished bilaterally. No rales, rhonchi or wheezes. No chest wall tenderness is noted on palpation or with deep breathing. HEART EXAMINATION: Regular rate and rhythm. S1, S2 heard. No murmurs, gallops or rub. ABDOMEN: Soft, nontender. Positive bowel sounds. EXTREMITIES: 2+ peripheral pulses, trace bilateral nonpitting lower extremity edema and no calf tenderness. NEUROLOGIC EXAMINATION: Patient is awake, alert and oriented x3. ASSESSMENT Chest pain Coronary artery disease status post bypass grafting History of myocardial infarction Hypertension Dyslipidemia Diabetes mellitus PLAN An acute coronary event has been ruled out. Pain is atypical for angina however given his underlying coronary artery disease and significant risk factors we will proceed with Lexiscan stress test to assess for reversibility. Decrease aspirin to 81 mg daily. Obtain 2-D echocardiogram and Doppler study to assess cardiac structure and function. Further recommendations to follow based upon clinical course. Thank you kindly for this consultation. Nurse Practitioner note has been reviewed, I agree with a documented findings and plan of care. Patient was seen and examined. Past Medical History Past Medical History: Coronary Artery Disease (CAD), Cancer, COPD, Diabetes Mellitus, Hyperlipidemia, Hypertension, Myocardial Infarction ([place]), Prostate Disorder Additional Past Medical History / Comment(s): prostate cancer with radiation > 20 years ago, nstemi, wears a brief incont urine/stool Last Myocardial Infarction Date:: 2017 History of Any Multi-Drug Resistant Organisms: ESBL, MRSA Date of last positivie culture/infection: 01/07/19 ESBL; 10/27/18 MRSA MDRO Source:: Urine-ESBL; Back-MRSA Past Surgical History: Coronary Bypass/CABG Additional Past Surgical History / Comment(s): 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,prostate bx, triple bypass 2017, bronchoscopy, picc line pt stated since removed Past Anesthesia/Blood Transfusion Reactions: No Reported Reaction Past Psychological History: No Psychological Hx Reported Additional Psychological History / Comment(s): pt was dc'd from [facility] 01[facility]01[facility]19. lives with son, has vna, wheel chair, walker , nebulizer Smoking Status: Former smoker Past Alcohol Use History: None Reported Additional Past Alcohol Use History / Comment(s): quit smoking 1979 (prior to that 3 packs/day since his teens) Past Drug Use History: None Reported - Past Family History Father Additional Family Medical History / Comment(s): old age Mother Family Medical History: Coronary Artery Disease (CAD), Diabetes Mellitus Additional Family Medical History / Comment(s): CABG Medications and Allergies Home Medications Medication Instructions Recorded Confirmed Type Aspirin [[place] Aspirin EC] 81 mg PO DAILY 01/07/19 07/27/20 History Atorvastatin [Lipitor] 20 mg PO HS 01/07/19 07/27/20 History Cholecalciferol [Vitamin D3 (25 5,000 unit PO DAILY 01/07/19 07/27/20 History Mcg = 1000 Iu)] Finasteride [Proscar] 5 mg PO HS 01/07/19 07/27/20 History Potassium Chloride ER [K-Dur 20] 20 meq PO DAILY #30 tab.er.prt 01/11/19 07/27/20 Rx Metoprolol Tartrate 12.5 mg PO BID 02/05/19 07/27/20 History Sertraline HCl [Zoloft] 50 mg PO DAILY 02/05/19 07/27/20 History Tamsulosin [Flomax] 0.4 mg PO HS 07/06/19 07/27/20 History Furosemide [Lasix] 20 mg PO DAILY 02/06/20 07/27/20 History Insulin Glargine,Hum.rec.anlog 25 unit SQ HS 02/06/20 07/27/20 History [Lantus Solostar] Losartan Potassium [Cozaar] 25 mg PO HS 02/06/20 07/27/20 History Acetaminophen [Tylenol Arthritis] 650 mg PO Q8H PRN 07/27/20 07/27/20 History Ferrous Sulfate [Feosol] 325 mg PO DAILY 07/27/20 07/27/20 History Fluticasone Nasal [place] [Flonase 1 spr EA NOSTRIL BID PRN 07/27/20 07/27/20 History Nasal [place]] Ipratropium-Albuterol Nebulize 3 ml INHALATION RT-QID PRN 07/27/20 07/27/20 History [Duoneb 0.5 mg-3 mg/3 ml Soln] Allergies Allergy/AdvReac Type Severity Reaction Status Date / Time No Known Allergies Allergy Verified 07/27/20 15:50 Physical Exam Vitals: Vital Signs Temp Pulse Pulse Pulse Pulse Resp BP 07/28/20 07:50 52 L 97 H 07/28/20 07:48 97.9 F 52 L 97 H 07/28/20 07:31 52 L 07/28/20 07:18 52 L 07/28/20 03:00 97.8 F 53 L 18 07/27/20 20:53 98.3 F 58 L 18 07/27/20 17:19 07/27/20 17:10 97.6 F 59 L 18 07/27/20 15:54 62 18 153/77 07/27/20 14:32 59 L 18 144/85 07/27/20 13:53 58 L 22 07/27/20 13:24 98.4 F 55 L 16 129/69 BP Pulse Ox 07/28/20 07:50 07/28/20 07:48 146/61 07/28/20 07:31 07/28/20 07:18 07/28/20 03:00 130/70 98 07/27/20 20:53 130/71 97 07/27/20 17:19 98 07/27/20 17:10 179/83 98 07/27/20 15:54 96 07/27/20 14:32 96 07/27/20 13:53 07/27/20 13:24 95 Intake and Output 07/27/20 07/28/20 07/28/20 22:59 06:59 14:59 Other: Voiding Method Toilet Toilet Toilet Diaper Diaper Diaper # Voids 2 1 Weight 98.43 kg Results 07/27/20 14:10 07/27/20 14:10 Cardiac Enzymes 07/27/20 07/27/20 07/27/20 Range/Units 14:10 14:10 17:51 AST 27 (17-59) U/L Troponin I 0.014 0.014 (0.000-0.034) ng/mL 07/27/20 Range/Units 20:47 AST (17-59) U/L Troponin I 0.014 (0.000-0.034) ng/mL Coagulation 07/27/20 Range/Units 14:10 PT 9.6 (9.0-12.0) sec APTT 22.2 (22.0-30.0) sec Lipids 07/27/20 Range/Units 14:10 Triglycerides 191 H (<150) mg/dL Cholesterol 102 (<200) mg/dL HDL Cholesterol 28 L (40-60) mg/dL CBC 07/27/20 Range/Units 14:10 WBC 6.5 (3.8-10.6) k/uL RBC 4.59 (4.30-5.90) m/uL Hgb 13.4 (13.0-17.5) gm/dL Hct 42.1 (39.0-53.0) % Plt Count 164 (150-450) k/uL Comprehensive Metabolic Panel 07/27/20 Range/Units 14:10 Sodium 136 L (137-145) mmol/L Potassium 5.1 (3.5-5.1) mmol/L Chloride 107 (98-107) mmol/L Carbon Dioxide 22 (22-30) mmol/L BUN 23 H (9-20) mg/dL Creatinine 1.16 (0.66-1.25) mg/dL Glucose 138 H (74-99) mg/dL Calcium 9.6 (8.4-10.2) mg/dL AST 27 (17-59) U/L ALT 22 (4-49) U/L Alkaline Phosphatase 79 (38-126) U/L Total Protein 6.2 L (6.3-8.2) g/dL Albumin 4.0 (3.5-5.0) g/dL Current Medications Generic Name Dose Route Start Last Admin Trade Name Freq PRN Reason Stop Dose Admin Acetaminophen 650 mg 07/27/20 18:27 07/28/20 00:40 Tylenol Tab PO 650 mg Q8H PRN Administration Pain Albuterol/Ipratropium 3 ml 07/27/20 18:27 07/28/20 07:18 Duoneb 0.5 Mg-3 Mg/3 Ml Soln INHALATION 3 ml RT-QID PRN Administration Shortness Of Breath Aminophylline 100 mg 07/28/20 08:42 Aminophylline IV ONCE PRN Patient Response Aspirin 81 mg 07/28/20 09:00 Aspirin PO DAILY [facility] Atorvastatin Calcium 20 mg 07/27/20 21:00 07/27/20 21:37 Lipitor PO 20 mg HS [facility] Administration Caffeine Citrate 60 mg 07/28/20 08:42 Cafcit Inj IV ONCE PRN Patient Response Finasteride 5 mg 07/27/20 21:00 07/27/20 21:37 Proscar PO 5 mg HS [facility] Administration Fluticasone Propionate 1 spray 07/27/20 18:27 Flonase Nasal [place] EA NOSTRIL BID PRN Allergy Symptoms Furosemide 20 mg 07/28/20 09:00 Lasix PO DAILY [facility] Insulin Aspart 0 unit 07/27/20 21:00 07/28/20 07:27 Novolog SQ Not Given ACHS [facility] Protocol Insulin Detemir 12 unit 07/27/20 21:00 07/27/20 21:38 Levemir SQ 6 unit HS [facility] Administration Losartan Potassium 25 mg 07/27/20 21:00 07/27/20 21:36 Cozaar PO 25 mg HS [facility] Administration Metoprolol Tartrate 12.5 mg 07/27/20 21:00 07/27/20 21:36 Lopressor PO 12.5 mg BID [facility] Administration Nitroglycerin 0.4 mg 07/27/20 16:20 Nitrostat SUBLINGUAL Q5M PRN Chest Pain Potassium Chloride 20 meq 07/28/20 09:00 K-Dur 20 PO DAILY [facility] Regadenoson 0.4 mg 07/28/20 08:42 Lexiscan IV 07/28/20 08:43 ONCE ONE Sertraline HCl 50 mg 07/28/20 09:00 Zoloft PO DAILY [facility] Tamsulosin HCl 0.4 mg 07/27/20 21:00 07/27/20 21:36 Flomax PO 0.4 mg HS [facility] Administration Intake and Output 07/27/20 07/28/20 07/28/20 22:59 06:59 14:59 Other: Voiding Method Toilet Toilet Toilet Diaper Diaper Diaper # Voids 2 1 Weight 98.43 kg 07/27/20 14:10 07/27/20 14:10
[2020-07-28] MEDS ORDERED: ASPIRIN 325 MG TAB PO SCH (09:00)
[2020-07-28] MEDS: METOPROLOL TARTRATE 12.5 MG TAB PO SCH ×2 (09:31→21:05)
[2020-07-28] MEDS: POTASSIUM CHLORIDE ER 20 MEQ TAB.ER PO SCH (09:32)
[2020-07-28] MEDS: ASPIRIN 81 MG PO SCH (09:41)
[2020-07-28] MEDS: FUROSEMIDE 20 MG TAB PO SCH (09:41)
[2020-07-28] MEDS: SERTRALINE 50 MG TAB PO SCH (09:41)
[2020-07-28 12:26] LABS: Glucose,Whole Blood 113 mg/dL (75-99)
--- NOTE | 2020-07-28 12:30 | NM ---
EXAMINATION TYPE: NM stress lexiscan cardiolite DATE OF EXAM: 07/28/2020 COMPARISON: NONE HISTORY: Precordial chest pain and abnormal EKG TECHNIQUE: After the intravenous administration of 9.8 mCi Tc 99m Sestamibi - Cardiolite resting SPE CT images acquired 45 minutes post injection. The patient received 0.4mg Lexiscan, 24.9 mCi Tc 99m Sestamibi - Stress images obtained [address] injection FINDINGS: Review of stress and rest SPECT images demonstrates decreased perfusion involving the anterior latera l wall felt to reflect stress-induced ischemia. Correlate clinically. No fixed defects seen. Gated an alysis shows normal wall motion with an estimated left ventricular ejection fraction of 46% %. IMPRESSION: decreased perfusion involving the anterior lateral wall felt to reflect stress-induced ischemia. Oren elate clinically.
--- NOTE | 2020-07-28 14:33 | EST ---
EXERCISE STRESS AGE: 75 SEX: M HT: 5'4" WT: 217 PROTOCOL: Lexiscan Cardiolite STAGE: DURATION OF EXERCISE: HEART RATE REST: 55 BLOOD PRESSURE REST: 158/77 MAXIMUM HEART RATE ACHIEVED: 72 MAXIMUM BLOOD PRESSURE: 158/77 85% MPHR: 123 100% MPHR: 145 METS: INDICATIONS: Chest pain. CLINICAL INFORMATION: Baseline rhythm is a sinus mechanism, rate of 55, left axis deviation, right bundle branch block. Baseline blood pressure 158/77 mmHg. Patient received injection of Lexiscan. Electrocardiograph monitoring revealed no evidence of diagnostic ischemic ST deviation. Cardiolite was injected per protocol. CONCLUSION: 1. Nondiagnostic electrocardiograph stress testing. 2. Nuclear images will be reported separately. MMODL / IJN: [id number] /
[2020-07-28 16:36] LABS: Glucose,Whole Blood 131 mg/dL (75-99)
[2020-07-28 20:10] LABS: Glucose,Whole Blood 177 mg/dL (75-99)
[2020-07-28] MEDS: TAMSULOSIN 0.4 MG CAP.ER.24H PO SCH (21:05)
[2020-07-28] MEDS: ATORVASTATIN 20 MG TAB PO SCH (21:05)
[2020-07-28] MEDS: LOSARTAN 25 MG TAB PO SCH (21:06)
[2020-07-28] MEDS: INSULIN DETEMIR (LEVEMIR) 100 UNIT/ML SYR SQ SCH (21:06)
[2020-07-28] MEDS: FINASTERIDE 5 MG TAB PO SCH (21:09)
--- NOTE | 2020-07-28 22:42 | P.HPIM ---
History of Present Illness H&P Date: 07/28/20 Chief Complaint: chest pain Cristo Perez is a 75 yo M with PMH of CAD s/p CABG, hx MS, HTN, HLD, T2DM who presented to the ED complaining of chest pain. He states he woke up yesterday morning with a pain in the right anterior chest wall that was sharp and tight. There was radiation to the right shoulder and down the right arm. The pain was severe so he came in to the ED. On presentation vitals and labs stable, trop negative x3, EKG with LBBB, no ST/T changes. He felt the pain resolved after application of a heating pad and has not recurred. Review of Systems All systems: negative Constitutional: Reports malaise, Denies chills, Denies fever Eyes: denies blurred vision, denies pain Ears, nose, mouth and throat: Denies headache, Denies sore throat Cardiovascular: Reports chest pain, Denies shortness of breath Respiratory: Denies cough Gastrointestinal: Denies abdominal pain, Denies diarrhea, Denies nausea, Denies vomiting Musculoskeletal: Denies myalgias Integumentary: Denies pruritus, Denies rash Neurological: Denies numbness, Denies weakness Psychiatric: Denies anxiety, Denies depression Endocrine: Denies fatigue, Denies weight change Past Medical History Past Medical History: Coronary Artery Disease (CAD), Cancer, COPD, Diabetes Mellitus, Hyperlipidemia, Hypertension, Myocardial Infarction ([place]), Prostate Disorder Additional Past Medical History / Comment(s): prostate cancer with radiation > 20 years ago, nstemi, wears a brief incont urine/stool Last Myocardial Infarction Date:: 2017 History of Any Multi-Drug Resistant Organisms: ESBL, MRSA Date of last positivie culture/infection: 01/07/19 ESBL; 10/27/18 MRSA MDRO Source:: Urine-ESBL; Back-MRSA Past Surgical History: Coronary Bypass/CABG Additional Past Surgical History / Comment(s): 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,prostate bx, triple bypass 2017, bronchoscopy, picc line pt stated since removed Past Anesthesia/Blood Transfusion Reactions: No Reported Reaction Past Psychological History: No Psychological Hx Reported Additional Psychological History / Comment(s): pt was dc'd from [facility] 01-01-19. lives with son, has vna, wheel chair, walker , nebulizer Smoking Status: Former smoker Past Alcohol Use History: None Reported Additional Past Alcohol Use History / Comment(s): quit smoking 1979 (prior to that 3 packs/day since his teens) Past Drug Use History: None Reported - Past Family History Father Additional Family Medical History / Comment(s): old age Mother Family Medical History: Coronary Artery Disease (CAD), Diabetes Mellitus Additional Family Medical History / Comment(s): CABG Medications and Allergies Home Medications Medication Instructions Recorded Confirmed Type Aspirin [[place] Aspirin EC] 81 mg PO DAILY 01/07/19 07/27/20 History Atorvastatin [Lipitor] 20 mg PO HS 01/07/19 07/27/20 History Cholecalciferol [Vitamin D3 (25 5,000 unit PO DAILY 01/07/19 07/27/20 History Mcg = 1000 Iu)] Finasteride [Proscar] 5 mg PO HS 01/07/19 07/27/20 History Potassium Chloride ER [K-Dur 20] 20 meq PO DAILY #30 tab.er.prt 01/11/19 07/27/20 Rx Metoprolol Tartrate 12.5 mg PO BID 02/05/19 07/27/20 History Sertraline HCl [Zoloft] 50 mg PO DAILY 02/05/19 07/27/20 History Tamsulosin [Flomax] 0.4 mg PO HS 07/06/19 07/27/20 History Furosemide [Lasix] 20 mg PO DAILY 02/06/20 07/27/20 History Insulin Glargine,Hum.rec.anlog 25 unit SQ HS 02/06/20 07/27/20 History [Lantus Solostar] Losartan Potassium [Cozaar] 25 mg PO HS 02/06/20 07/27/20 History Acetaminophen [Tylenol Arthritis] 650 mg PO Q8H PRN 07/27/20 07/27/20 History Ferrous Sulfate [Feosol] 325 mg PO DAILY 07/27/20 07/27/20 History Fluticasone Nasal [place] [Flonase 1 spr EA NOSTRIL BID PRN 07/27/20 07/27/20 History Nasal [place]] Ipratropium-Albuterol Nebulize 3 ml INHALATION RT-QID PRN 07/27/20 07/27/20 History [Duoneb 0.5 mg-3 mg/3 ml Soln] Allergies Allergy/AdvReac Type Severity Reaction Status Date / Time No Known Allergies Allergy Verified 07/27/20 15:50 Physical Exam Vitals: Vital Signs Temp Pulse Pulse Pulse Pulse Resp BP 07/28/20 20:30 98 F 85 16 162/76 07/28/20 19:22 60 07/28/20 19:13 58 L 07/28/20 15:31 56 L 07/28/20 15:21 56 L 07/28/20 14:00 98.0 F 58 L 16 159/61 07/28/20 13:54 52 L 58 L 97 H 07/28/20 07:50 52 L 97 H 07/28/20 07:48 97.9 F 52 L 97 H 146/61 07/28/20 07:31 52 L 07/28/20 07:18 52 L 07/28/20 03:00 97.8 F 53 L 18 130/70 Pulse Ox 07/28/20 20:30 94 L 07/28/20 19:22 07/28/20 19:13 07/28/20 15:31 07/28/20 15:21 07/28/20 14:00 98 07/28/20 13:54 07/28/20 07:50 07/28/20 07:48 07/28/20 07:31 07/28/20 07:18 07/28/20 03:00 98 Intake and Output 07/28/20 07/28/20 07/28/20 06:59 14:59 22:59 Intake Total 236 Balance 236 Intake: Oral 236 Other: Voiding Method Toilet Toilet Toilet Diaper Diaper Diaper # Voids 2 1 # Bowel Movements 1 Weight 98.43 kg General: well nourished, well developed, NAD. Vitals reviewed Eyes: PERRL, EOMI, conjunctiva normal HENT: normocephalic, mucus membranes moist Neck: supple, no JVD Lungs: normal respiratory effort, no wheezes or rales CV: Regular rate and rhythm, systolic murmur. Peripheral pulses 2+ Abdomen: soft, nondistended, no organomegaly Lymph: no cervical or axillary LAD Skin: warm and dry. Neuro: A&Ox3, normal mood and affect Results CBC & Chem 7: 07/27/20 14:10 07/27/20 14:10 Labs: Abnormal Lab Results - Last 24 Hours (Table) 07/27/20 07/28/20 07/28/20 Range/Units 14:10 06:48 12:20 POC Glucose (mg/dL) 117 H 113 H (75-99) mg/dL Triglycerides 191 H (<150) mg/dL HDL Cholesterol 28 L (40-60) mg/dL 07/28/20 07/28/20 Range/Units 16:33 20:05 POC Glucose (mg/dL) 131 H 177 H (75-99) mg/dL Triglycerides (<150) mg/dL HDL Cholesterol (40-60) mg/dL Thrombosis Risk Factor Assmnt - Choose All That Apply Each Factor Represents 1 point: Abnormal pulmonary function (COPD), Medical pt on bed rest, Obesity (BMI >25) Other Risk Factors: No Other congenital or acquired thrombophilia - If yes, enter type in comment: No Thrombosis Risk Factor Assessment Total Risk Factor Score: 3 Thrombosis Risk Factor Assessment Level: Moderate Risk Assessment and Plan (1) Coronary artery disease Current Visit: Yes Status: Acute Code(s): I25.10 - ATHSCL HEART DISEASE OF [place] CORONARY ARTERY W/O ANG PCTRS SNOMED Code(s): 78337702 (2) Hx of CABG Current Visit: Yes Status: Acute Code(s): Z95.1 - PRESENCE OF AORTOCORONARY BYPASS GRAFT SNOMED Code(s): 909655257 (3) Chest pain Current Visit: Yes Status: Acute Code(s): R07.9 - CHEST PAIN, UNSPECIFIED SNOMED Code(s): 88248773 (4) Insulin dependent diabetes mellitus Current Visit: No Status: Chronic Code(s): E11.9 - TYPE 2 DIABETES MELLITUS WITHOUT COMPLICATIONS; Z79.4 - RECEIVER (CURRENT) USE OF INSULIN SNOMED Code(s): 63187465 (5) Tobacco dependence in remission Current Visit: No Status: Resolved Code(s): F17.201 - NICOTINE DEPENDENCE, UNSPECIFIED, IN REMISSION SNOMED Code(s): 511279084 Plan: 1. Chest pain. Coronary artery disease. ACS ruled out, cardiology consulted for further evaluation. Continue home medications 2. T2DM. Lantus 12 u qhs and sliding scale 3. HTN. Continue cozaar 4. Major depression. Continue zoloft
[2020-07-29 06:38] LABS: Glucose,Whole Blood 138 mg/dL (75-99)
[2020-07-29] MEDS: INSULIN ASPART (NovoLOG) 100 UNIT/ML VIAL SQ SCH ×2 (07:52→12:17)
[2020-07-29 07:57] VITALS: BP 160/69; PULSE 55; RESP 16; TEMP 97.9
[2020-07-29] MEDS: ASPIRIN 81 MG PO SCH (08:02)
[2020-07-29] MEDS: FUROSEMIDE 20 MG TAB PO SCH (08:02)
[2020-07-29] MEDS: METOPROLOL TARTRATE 12.5 MG TAB PO SCH (08:02)
[2020-07-29] MEDS: POTASSIUM CHLORIDE ER 20 MEQ TAB.ER PO SCH (08:02)
[2020-07-29] MEDS: SERTRALINE 50 MG TAB PO SCH (08:02)
[2020-07-29 11:57] LABS: Glucose,Whole Blood 168 mg/dL (75-99)
--- NOTE | 2020-07-29 13:45 | P.PN ---
Subjective HISTORY OF PRESENTING ILLNESS This is a pleasant 75-year-old male past medical history significant for ordinary artery disease status post bypass grafting, diabetes mellitus, hypertension, dyslipidemia and myocardial infarction. He underwent cardiac catheterization August 2018 in the setting of a non-ST elevated myocardial infarction revealing 100% occlusion of the RCA after the conus branch, 70% disease in the left main, 70% disease in the mid LAD and 80% disease in the 1 branch of the circumflex. He underwent CHAHAL to LAD, SVG to OM and SVG to the PDA branch of RCA. He follows in the office with Dr. Harper. He underwent john scan stress test yesterday that revealed the possibility of reversibility. Test results were discussed in detail with Dr. Marcano in the patient. He has had no further symptoms of chest discomfort. Breathing is stable. Blood pressure 160/69 heart rate 55 afebrile maintaining oxygen saturation on room air. PHYSICAL EXAMINATION CONSTITUTIONAL: No apparent distress. HEENT: Head is normocephalic. Pupils are equal, round. Sclerae anicteric. Mucous membranes of the mouth are moist. No JVD. No carotid bruit. CHEST EXAMINATION: Diminished bilaterally. No rales, rhonchi or wheezes. No chest wall tenderness is noted on palpation or with deep breathing. HEART EXAMINATION: Regular rate and rhythm. S1, S2 heard. No murmurs, gallops or rub. EXTREMITIES: 2+ peripheral pulses, trace bilateral nonpitting lower extremity edema and no calf tenderness. ASSESSMENT Chest pain Coronary artery disease status post bypass grafting History of myocardial infarction Hypertension Dyslipidemia Diabetes mellitus PLAN Pain on admission was atypical for angina. Stress test report indicated the possibility of reversibility. However, he has remained chest pain free at rest and with exertion. Stable for discharge on maximum medical therapy and follow up with Dr. Harper next week for further outpatient evaluation. Advised him to use nitro sL if he has further chest pain and return to the ER. Nurse Practitioner note has been reviewed, I agree with a documented findings and plan of care. Patient was seen and examined. Objective - Vital Signs Vital signs: Vital Signs Temp 97.9 F 07/29/20 07:55 Pulse 55 L 07/29/20 07:55 Resp 16 07/29/20 08:28 BP 160/69 07/29/20 07:55 Pulse Ox 93 L 07/29/20 07:55 Intake & Output 07/28/20 07/29/20 07/29/20 18:59 06:59 18:59 Intake Total 236 Balance 236 Weight 98.43 kg Intake: Oral 236 Other: Voiding Method Toilet Toilet Toilet Diaper Diaper Diaper # Voids 1 1 # Bowel Movements 1 - Labs CBC & Chem 7: 07/27/20 14:10 07/27/20 14:10 Labs: Abnormal Lab Results - Last 24 Hours (Table) 07/28/20 07/28/20 07/29/20 Range/Units 16:33 20:05 06:34 POC Glucose (mg/dL) 131 H 177 H 138 H (75-99) mg/dL 07/29/20 Range/Units 11:56 POC Glucose (mg/dL) 168 H (75-99) mg/dL
--- NOTE | 2020-08-08 22:25 | P.DS ---
Providers Date of admission: 07/27/20 16:20 Expected date of discharge: 07/29/20 Attending physician: Nhan Adam MD Consults: 07/27/20 16:20 Consult Physician Urgent Consulting Provider: Dallin Marcano Consult Reason/Comments: cp Do you want consulting provider notified?: Yes Primary care physician: Della Grant - Discharge Diagnosis(es) (1) Coronary artery disease Status: Acute (2) Hx of CABG Status: Acute (3) Chest pain Status: Acute (4) Insulin dependent diabetes mellitus Status: Chronic (5) Tobacco dependence in remission Status: Resolved Hospital Course: Cristo Perez is a 75 yo M with PMH of CAD s/p CABG, hx [place], HTN, HLD, T2DM who presented to the ED complaining of chest pain. He states he woke up yesterday morning with a pain in the right anterior chest wall that was sharp and tight. There was radiation to the right shoulder and down the right arm. The pain was severe so he came in to the ED. On presentation vitals and labs stable, trop negative x3, EKG with LBBB, no ST/T changes. He was admitted to medicine and seen by Cardiology. He underwent lexiscan stress test which was negative. His pain did not recur during his admission. He is discharged on maximum cardiac therapy and recommended to follow up with PCP and Cardiology. Discharge Exam: General: well nourished, well developed, NAD. Vitals reviewed HENT: normocephalic, mucus membranes moist Lungs: normal respiratory effort, no wheezes or rales CV: Regular rate and rhythm, no murmur. Peripheral pulses 2+ Abdomen: soft, nondistended, no organomegaly Skin: warm and dry. Neuro: A&Ox3, normal mood and affect Plan - Discharge Summary Discharge Rx Participant: No New Discharge Prescriptions: New Nitroglycerin Sl Tabs [Nitrostat] 0.4 mg SUBLINGUAL Q5M PRN #100 tab PRN Reason: Chest Pain Continue Atorvastatin [Lipitor] 20 mg PO HS Finasteride [Proscar] 5 mg PO HS Cholecalciferol [Vitamin D3 (25 Mcg = 1000 Iu)] 5,000 unit PO DAILY Aspirin [[place] Aspirin EC] 81 mg PO DAILY Potassium Chloride ER [K-Dur 20] 20 meq PO DAILY #30 tab.er.prt Metoprolol Tartrate 12.5 mg PO BID Sertraline HCl [Zoloft] 50 mg PO DAILY Tamsulosin [Flomax] 0.4 mg PO HS Furosemide [Lasix] 20 mg PO DAILY Insulin Glargine,Hum.rec.anlog [Lantus Solostar] 25 unit SQ HS Losartan Potassium [Cozaar] 25 mg PO HS Fluticasone Nasal [place] [Flonase Nasal [place]] 1 spr EA NOSTRIL BID PRN PRN Reason: Allergy Symptoms Acetaminophen [Tylenol Arthritis] 650 mg PO Q8H PRN PRN Reason: Pain Ipratropium-Albuterol Nebulize [Duoneb 0.5 mg-3 mg/3 ml Soln] 3 ml INHALATION RT-QID PRN PRN Reason: Shortness Of Breath Ferrous Sulfate [Feosol] 325 mg PO DAILY Discharge Medication List Aspirin [[place] Aspirin EC] 81 mg PO DAILY 01/07/19 [History] Atorvastatin [Lipitor] 20 mg PO HS 01/07/19 [History] Cholecalciferol [Vitamin D3 (25 Mcg = 1000 Iu)] 5,000 unit PO DAILY 01/07/19 [History] Finasteride [Proscar] 5 mg PO HS 01/07/19 [History] Potassium Chloride ER [K-Dur 20] 20 meq PO DAILY #30 tab.er.prt 01/11/19 [Rx] Metoprolol Tartrate 12.5 mg PO BID 02/05/19 [History] Sertraline HCl [Zoloft] 50 mg PO DAILY 02/05/19 [History] Tamsulosin [Flomax] 0.4 mg PO HS 07/06/19 [History] Furosemide [Lasix] 20 mg PO DAILY 02/06/20 [History] Insulin Glargine,Hum.rec.anlog [Lantus Solostar] 25 unit SQ HS 02/06/20 [History] Losartan Potassium [Cozaar] 25 mg PO HS 02/06/20 [History] Acetaminophen [Tylenol Arthritis] 650 mg PO Q8H PRN 07/27/20 [History] Ferrous Sulfate [Feosol] 325 mg PO DAILY 07/27/20 [History] Fluticasone Nasal [place] [Flonase Nasal [place]] 1 spr EA NOSTRIL BID PRN 07/27/20 [History] Ipratropium-Albuterol Nebulize [Duoneb 0.5 mg-3 mg/3 ml Soln] 3 ml INHALATION RT-QID PRN 07/27/20 [History] Nitroglycerin Sl Tabs [Nitrostat] 0.4 mg SUBLINGUAL Q5M PRN #100 tab 07/29/20 [Rx] Follow up Appointment(s)/Referral(s): Homer Harper MD [STAFF PHYSICIAN] - 1 Week Joy Reagan DO [REFERRING] - 1-2 days (office closed please call for an appointment) Patient Instructions/Handouts: Chest Pain (DC) Discharge Disposition: HOME SELF-CARE
== END 2020-07-29 12:51 | disposition home or self-care (01) ==
LOC: EC 13:20 → 1SOBS 16:20
PROVIDERS: ADMIT Family Medicine; ATTEND Family Medicine
DX: R07.89 Other chest pain (principal); R06.02 Shortness of breath; R11.0 Nausea; I25.10 Atherosclerotic heart disease of native coronary artery without angina pectoris; F32.9 Major depressive disorder, single episode, unspecified; E11.9 Type 2 diabetes mellitus without complications; E78.5 Hyperlipidemia, unspecified; I10 Essential (primary) hypertension; J44.9 Chronic obstructive pulmonary disease, unspecified; I25.2 Old myocardial infarction; R32 Unspecified urinary incontinence; R15.9 Full incontinence of feces; R00.1 Bradycardia, unspecified; I45.10 Unspecified right bundle-branch block; R94.31 Abnormal electrocardiogram [ECG] [EKG]; E66.9 Obesity, unspecified; R94.39 Abnormal result of other cardiovascular function study; Z68.37 Body mass index [BMI] 37.0-37.9, adult; Z95.1 Presence of aortocoronary bypass graft; Z79.82 Long term (current) use of aspirin; Z79.899 Other long term (current) drug therapy; Z79.4 Long term (current) use of insulin; Z85.46 Personal history of malignant neoplasm of prostate; Z92.3 Personal history of irradiation; Z86.14 Personal history of Methicillin resistant Staphylococcus aureus infection; Z86.19 Personal history of other infectious and parasitic diseases; Z90.5 Acquired absence of kidney; Z98.890 Other specified postprocedural states; Z87.891 Personal history of nicotine dependence; Z82.49 Family history of ischemic heart disease and other diseases of the circulatory system; Z83.3 Family history of diabetes mellitus
CPT/HCPCS: 93005 ×2; 99285; 36415; 94640 ×2; 93017; 85379; 80061; 80053; 83735; 84484; 85025; 85610; 85730; 71046; 78452; G0378 ×3; A9500; S0138 ×2; J2785

== ENCOUNTER 2020-08-24 16:00 | Observation (INO) | payer MEDICARE, OTHER ==
[2020-08-24] MEDS ORDERED: SODIUM CHLORIDE 0.9% 1,000 ML IV STA (16:34)
[2020-08-24] MEDS ORDERED: SODIUM CHLORIDE 0.9% 500 ML 500 ML IV STA (16:34)
--- NOTE | 2020-08-24 16:36 | ED ---
General Adult HPI - General Chief complaint: Fall Stated complaint: Syncope Time Seen by Provider: 08/24/20 16:10 Source: patient, EMS, RN notes reviewed, old records reviewed Mode of arrival: EMS Limitations: no limitations - History of Present Illness Initial comments: 75-year-old male presents status post syncopal episode. Patient had an episode of chest discomfort earlier today. He had taken a nitroglycerin. Approximately one hour after this he took a shower he was sitting on a shower chair and collapsed. He was unconscious for several minutes. EMS notes that he was bradycardic during transport. He is on metoprolol has history of CAD status post CABG. He denies chest pain at the time my evaluation. He states he had significant amount of diarrhea this morning. No fever. He has some mild abdominal discomfort as well. No focal numbness or weakness. No head or neck trauma. - Related Data Home Medications Medication Instructions Recorded Confirmed Aspirin [[place] Aspirin EC] 81 mg PO DAILY 01/07/19 07/27/20 Atorvastatin [Lipitor] 20 mg PO HS 01/07/19 07/27/20 Cholecalciferol [Vitamin D3 (25 5,000 unit PO DAILY 01/07/19 07/27/20 Mcg = 1000 Iu)] Finasteride [Proscar] 5 mg PO HS 01/07/19 07/27/20 Metoprolol Tartrate 12.5 mg PO BID 02/05/19 07/27/20 Sertraline HCl [Zoloft] 50 mg PO DAILY 02/05/19 07/27/20 Tamsulosin [Flomax] 0.4 mg PO HS 07/06/19 07/27/20 Furosemide [Lasix] 20 mg PO DAILY 02/06/20 07/27/20 Insulin Glargine,Hum.rec.anlog 25 unit SQ HS 02/06/20 07/27/20 [Lantus Solostar] Losartan Potassium [Cozaar] 25 mg PO HS 02/06/20 07/27/20 Acetaminophen [Tylenol Arthritis] 650 mg PO Q8H PRN 07/27/20 07/27/20 Ferrous Sulfate [Feosol] 325 mg PO DAILY 07/27/20 07/27/20 Fluticasone Nasal [place] [Flonase 1 spr EA NOSTRIL BID PRN 07/27/20 07/27/20 Nasal [place]] Ipratropium-Albuterol Nebulize 3 ml INHALATION RT-QID PRN 07/27/20 07/27/20 [Duoneb 0.5 mg-3 mg/3 ml Soln] Previous Rx's Medication Instructions Recorded Potassium Chloride ER [K-Dur 20] 20 meq PO DAILY #30 tab.er.prt 01/11/19 Nitroglycerin Sl Tabs [Nitrostat] 0.4 mg SUBLINGUAL Q5M PRN #100 tab 07/29/20 Allergies Allergy/AdvReac Type Severity Reaction Status Date / Time No Known Allergies Allergy Verified 07/27/20 15:50 Review of Systems ROS Statement: Those systems with pertinent positive or pertinent negative responses have been documented in the HPI. ROS Other: All systems not noted in ROS Statement are negative. Past Medical History Past Medical History: Coronary Artery Disease (CAD), Cancer, COPD, Diabetes Mellitus, Hyperlipidemia, Hypertension, Myocardial Infarction ([place]), Prostate Disorder Additional Past Medical History / Comment(s): prostate cancer with radiation > 20 years ago, nstemi, wears a brief incont urine/stool Last Myocardial Infarction Date:: 2017 History of Any Multi-Drug Resistant Organisms: ESBL, MRSA Date of last positivie culture/infection: 01/07/19 ESBL; 10/27/18 MRSA MDRO Source:: Urine-ESBL; Back-MRSA Past Surgical History: Coronary Bypass/CABG Additional Past Surgical History / Comment(s): 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,prostate bx, triple bypass 2017, bronchoscopy, picc line pt stated since removed Past Anesthesia/Blood Transfusion Reactions: No Reported Reaction Past Psychological History: No Psychological Hx Reported Smoking Status: Former smoker Past Alcohol Use History: None Reported Past Drug Use History: None Reported - Past Family History Father Additional Family Medical History / Comment(s): old age Mother Family Medical History: Coronary Artery Disease (CAD), Diabetes Mellitus Additional Family Medical History / Comment(s): CABG General Exam Limitations: no limitations General appearance: alert, in no apparent distress Head exam: Present: atraumatic, normocephalic Eye exam: Present: normal appearance, PERRL ENT exam: Present: mucous membranes dry Neck exam: Present: normal inspection. Absent: tenderness, meningismus Respiratory exam: Present: normal lung sounds bilaterally. Absent: respiratory distress, wheezes Cardiovascular Exam: Present: normal rhythm, bradycardia GI/Abdominal exam: Present: soft, tenderness (Mild epigastric tenderness). Ab sent: distended, guarding, rebound Extremities exam: Present: normal inspection, normal capillary refill. Absent: pedal edema Neurological exam: Present: alert, oriented X3, CN II-XII intact. Absent: motor sensory deficit Psychiatric exam: Present: normal affect, normal mood Skin exam: Present: warm, dry, intact. Absent: cyanosis, diaphoretic Course Vital Signs 08/24/20 08/24/20 08/24/20 16:04 16:12 16:30 Pulse Rate 44 L Respiratory 16 16 Rate Blood Pressure 99/50 O2 Sat by Pulse 92 L 97 Oximetry 08/24/20 17:00 Pulse Rate 44 L Respiratory 15 Rate Blood Pressure 112/65 O2 Sat by Pulse 99 Oximetry EKG Findings - EKG Comments: EKG Findings:: EKG: Atrial paced rhythm, rate of 50, TN interval 382, QRS duration 152, QTC 433, no ST segment elevation. Medical Decision Making - Medical Decision Making 75-year-old male presenting with syncopal episode, diarrhea, and an episode of chest pain. Pain is resolved. Initial blood pressure is low, suspect this is from dehydration secondary to diarrhea as well as administration of nitroglycerin. Patient's EKG is sinus bradycardia. Blood pressure is stable. He is given IV hydration emergency department. Chest x-rays negative for acute cardiopulmonary disease. He has a normal CBC. His creatinine is up trending at 1.76. He has a mild lactic acid 2.5. All secondary to dehydration. I will keep him on telemetry for monitoring. I will repeat his cardiac enzymes, cardiology will be placed on consult. He will be continued on IV fluids. I discussed case with Dr. Adam will admit. - Lab Data Result diagrams: 08/24/20 16:37 08/24/20 16:37 Lab Results 08/24/20 08/24/20 08/24/20 Range/Units 16:37 16:37 16:37 WBC 7.4 (3.8-10.6) k/uL RBC 4.37 (4.30-5.90) m/uL Hgb 13.0 (13.0-17.5) gm/dL Hct 40.8 (39.0-53.0) % MCV 93.2 (80.0-100.0) fL MCH 29.7 (25.0-35.0) pg MCHC 31.9 (31.0-37.0) g/dL RDW 14.4 (11.5-15.5) % Plt Count 184 (150-450) k/uL Neutrophils % 80 % Lymphocytes % 11 % Monocytes % 6 % Eosinophils % 2 % Basophils % 1 % Neutrophils # 5.9 (1.3-7.7) k/uL Lymphocytes # 0.8 L (1.0-4.8) k/uL Monocytes # 0.4 (0-1.0) k/uL Eosinophils # 0.1 (0-0.7) k/uL Basophils # 0.0 (0-0.2) k/uL Hypochromasia Slight PT 9.9 (9.0-12.0) sec INR 0.9 (<1.2) APTT 20.9 L (22.0-30.0) sec Sodium 136 L (137-145) mmol/L Potassium 5.2 H (3.5-5.1) mmol/L Chloride 106 (98-107) mmol/L Carbon Dioxide 19 L (22-30) mmol/L Anion Gap 11 mmol/L BUN 32 H (9-20) mg/dL Creatinine 1.76 H (0.66-1.25) mg/dL Est GFR (CKD-EPI)AfAm 43 (>60 ml/min/1.73 sqM) Est GFR (CKD-EPI)NonAf 37 (>60 ml/min/1.73 sqM) Glucose 117 H (74-99) mg/dL Plasma Lactic Acid [place] (0.7-2.0) mmol/L Calcium 9.1 (8.4-10.2) mg/dL Magnesium 2.0 (1.6-2.3) mg/dL Total Bilirubin 0.5 (0.2-1.3) mg/dL AST 23 (17-59) U/L ALT 22 (4-49) U/L Alkaline Phosphatase 78 (38-126) U/L Troponin I (0.000-0.034) ng/mL Total Protein 6.1 L (6.3-8.2) g/dL Albumin 3.7 (3.5-5.0) g/dL 08/24/20 08/24/20 Range/Units 16:37 16:40 WBC (3.8-10.6) k/uL RBC (4.30-5.90) m/uL Hgb (13.0-17.5) gm/dL Hct (39.0-53.0) % MCV (80.0-100.0) fL MCH (25.0-35.0) pg MCHC (31.0-37.0) g/dL RDW (11.5-15.5) % Plt Count (150-450) k/uL Neutrophils % % Lymphocytes % % Monocytes % % Eosinophils % % Basophils % % Neutrophils # (1.3-7.7) k/uL Lymphocytes # (1.0-4.8) k/uL Monocytes # (0-1.0) k/uL Eosinophils # (0-0.7) k/uL Basophils # (0-0.2) k/uL Hypochromasia PT (9.0-12.0) sec INR (<1.2) APTT (22.0-30.0) sec Sodium (137-145) mmol/L Potassium (3.5-5.1) mmol/L Chloride (98-107) mmol/L Carbon Dioxide (22-30) mmol/L Anion Gap mmol/L BUN (9-20) mg/dL Creatinine (0.66-1.25) mg/dL Est GFR (CKD-EPI)AfAm (>60 ml/min/1.73 sqM) Est GFR (CKD-EPI)NonAf (>60 ml/min/1.73 sqM) Glucose (74-99) mg/dL Plasma Lactic Acid [place] 2.5 H* (0.7-2.0) mmol/L Calcium (8.4-10.2) mg/dL Magnesium (1.6-2.3) mg/dL Total Bilirubin (0.2-1.3) mg/dL AST (17-59) U/L ALT (4-49) U/L Alkaline Phosphatase (38-126) U/L Troponin I <0.012 (0.000-0.034) ng/mL Total Protein (6.3-8.2) g/dL Albumin (3.5-5.0) g/dL Disposition Clinical Impression: Fall, Chest pain, Dehydration, Syncope Disposition: ADMITTED IP TO THIS [facility] Condition: Stable Is patient prescribed a controlled substance at d/c from ED?: No Referrals: Della Grant MD [Primary Care Provider] - 1-2 days Decision to Admit Reason: Admit from EC Decision Date: 08/24/20 Decision Time: 19:03
--- NOTE | 2020-08-24 16:58 | XR ---
EXAMINATION: XR chest 2V DATE AND TIME: 08/24/2020 4:50 PM CLINICAL INDICATION: PHH; syncope TECHNIQUE: Departmental protocol COMPARISON: 07/27/2020 FINDINGS: The lungs are clear. The pleural spaces are negative. The cardiac silhouette is not enlarged. Sternal sutures redemonstrated. The remainder of the mediasti nal silhouette is unremarkable. The skeletal structures and soft tissues are negative for acute findings. Prominent overlying soft ti ssues redemonstrated. IMPRESSION: No acute renographic process.
[2020-08-24 17:00] LABS: Basophils % (A) 1 %; Eosinophils # (A) 0.1 k/uL (0-0.7); Eosinophils % (A) 2 %; HCT 40.8 % (39.0-53.0); Hypochromasia Slight; Lymphocytes # (A) 0.8 k/uL (1.0-4.8); Lymphocytes % (A) 11 %; MCH 29.7 pg (25.0-35.0); MCHC 31.9 g/dL (31.0-37.0); MCV 93.2 fL (80.0-100.0); Mean Platelet Volume 7.6; Monocytes # (A) 0.4 k/uL (0-1.0); Monocytes % (A) 6 %; Neutrophils # (A) 5.9 k/uL (1.3-7.7); Neutrophils % (A) 80 %; Platelet Count 184 k/uL (150-450); RBC 4.37 m/uL (4.30-5.90); RDW 14.4 % (11.5-15.5); WBC 7.4 k/uL (3.8-10.6)
[2020-08-24 17:25] LABS: Albumin 3.7 g/dL (3.5-5.0); Calcium 9.1 mg/dL (8.4-10.2); Potassium 5.2 mmol/L (3.5-5.1); Total Bilirubin 0.5 mg/dL (0.2-1.3); Total Protein 6.1 g/dL (6.3-8.2)
[2020-08-24 17:26] LABS: INR 0.9 (<1.2); Prothrombin Time 9.9 sec (9.0-12.0)
[2020-08-24 17:32] LABS: Partial Thromboplastin Time 20.9 sec (22.0-30.0)
[2020-08-24] MEDS ORDERED: SODIUM CHLORIDE 0.9% 500 ML 500 ML IV ONE (18:20)
[2020-08-24] MEDS ORDERED: NALOXONE 0.4 MG/ML 1 ML VIAL IV PRN (18:59)
[2020-08-24] MEDS ORDERED: MORPHINE SULFATE 4 MG/ML SYRINGE IV PRN (18:59)
[2020-08-24] MEDS ORDERED: POTASSIUM CHLORIDE ER 20 MEQ TAB.ER PO PRN (20:54)
[2020-08-24] MEDS ORDERED: ACETAMINOPHEN TAB 325 MG TAB PO PRN (20:54)
[2020-08-24] MEDS ORDERED: METOPROLOL TARTRATE 25 MG TAB PO SCH (21:00)
[2020-08-24 21:08] LABS: Glucose,Whole Blood 166 mg/dL (75-99)
[2020-08-24] MEDS: TAMSULOSIN 0.4 MG CAP.ER.24H PO SCH (21:15)
[2020-08-24] MEDS: ATORVASTATIN 20 MG TAB PO SCH (21:15)
[2020-08-24] MEDS: LOSARTAN 25 MG TAB PO SCH (21:15)
[2020-08-24] MEDS: INSULIN DETEMIR (LEVEMIR) 100 UNIT/ML SYR SQ SCH (21:15)
[2020-08-24] MEDS: FINASTERIDE 5 MG TAB PO SCH (21:16)
[2020-08-25 05:58] LABS: Basophils % (A) 1 %; Eosinophils # (A) 0.2 k/uL (0-0.7); Eosinophils % (A) 2 %; HCT 39.3 % (39.0-53.0); HGB 12.7 gm/dL (13.0-17.5); Lymphocytes # (A) 0.9 k/uL (1.0-4.8); Lymphocytes % (A) 11 %; MCH 29.7 pg (25.0-35.0); MCHC 32.2 g/dL (31.0-37.0); MCV 92.1 fL (80.0-100.0); Mean Platelet Volume 7.9; Monocytes # (A) 0.4 k/uL (0-1.0); Monocytes % (A) 5 %; Neutrophils # (A) 6.5 k/uL (1.3-7.7); Neutrophils % (A) 80 %; Platelet Count 159 k/uL (150-450); RBC 4.27 m/uL (4.30-5.90); RDW 14.7 % (11.5-15.5); WBC 8.1 k/uL (3.8-10.6)
[2020-08-25 06:12] LABS: Albumin 3.5 g/dL (3.5-5.0); Calcium 8.8 mg/dL (8.4-10.2); Magnesium 1.8 mg/dL (1.6-2.3); Potassium 5.2 mmol/L (3.5-5.1); Total Bilirubin 0.5 mg/dL (0.2-1.3)
[2020-08-25 06:56] LABS: Glucose,Whole Blood 76 mg/dL (75-99)
[2020-08-25] MEDS ORDERED: SODIUM CHLORIDE 0.9% 1,000 ML IV SCH (09:15)
[2020-08-25] MEDS: SERTRALINE 50 MG TAB PO SCH (10:03)
[2020-08-25] MEDS: GLIMEPIRIDE 1 MG TAB PO SCH (10:03)
[2020-08-25] MEDS: ASPIRIN 81 MG PO SCH (10:04)
[2020-08-25] MEDS: FUROSEMIDE 20 MG TAB PO SCH (10:04)
--- NOTE | 2020-08-25 11:08 | P.CRDCN ---
History of Present Illness History of present illness: HISTORY OF PRESENTING ILLNESS This is a pleasant 75-year-old male past medical history significant for coronary artery disease status post bypass grafting, diabetes mellitus, hypertension, dyslipidemia and myocardial infarction. He underwent cardiac catheterization August 2018 in the setting of a non-ST elevated myocardial infarction revealing 100% occlusion of the RCA after the conus branch, 70% disease in the left main, 70% disease in the mid LAD and 80% disease of the circumflex. He underwent CHAHAL to LAD, SVG to OM and SVG to the PDA branch of the RCA at that time. He follows in the office with Dr. Harper. We have been asked to see in consultation for syncope and chest pain. He is seen and examined resting comfortably lying flat in bed in no acute distress. He states yesterday while cleaning his bathtub he became lightheaded and fell losing consciousness. The patient states his son was home and heard him fall and called EMS. According to the patient he was unresponsive when EMS arrived. He states he had been having diarrhea all day yesterday. When EMS got him outside he then started vomiting. He denies ever having had chest pain, shortness of breath, palpitations or diaphoresis. He was recently here and hospitalized and underwent a stress test that revealed evidence of possible reversibility however on further evaluation it was not convincing thought to be possible diaphragmatic attenuation. His medical therapy was maximized. DIAGNOSTICS EKG reveals sinus bradycardia heart rate of 47 right bundle branch block and left axis deviation. Chest xray negative for an acute cardiopulmonary process. Laboratory reviewed, WBC 8.1, hemoglobin 12.7, platelets 159, sodium 137, potassium 5.2, creatinine on admission 1.7 3 repeat today 1.43, lactic acid on admission 2. 5 repeat after hydration 1.4, cardiac enzymes negative 3,. Current cardiac medications include aspirin 81 mg daily, atorvastatin 20 mg daily, Lasix 20 mg daily, losartan 25 mg at bedtime, metoprolol 12.5 mg twice a day, daily potassium supplementation and Imdur 15 mg at noon. Most recent echocardiogram obtained 01/2019 revealed preserved LV systolic ejection [id number]%. REVIEW OF SYSTEMS At the time of my exam: CONSTITUTIONAL: Denies fever or chills. CARDIOVASCULAR: Denies chest pain, shortness of breath, orthopnea, PND or palpitations. RESPIRATORY: Denies cough. GASTROINTESTINAL: Denies abdominal pain, diarrhea, constipation, nausea or vomiting. MUSCULOSKELETAL: Denies myalgias. NEUROLOGIC: Denies numbness, tingling or weakness. ENDOCRINE: Denies fatigue, weight change, polydipsia or polyurina. GENITOURINARY: Denies burning, hematuria or urgency with micturation. HEMATOLOGIC: Denies history of anemia or bleeding. PHYSICAL EXAMINATION Blood pressure 114/63 heart rate 54 afebrile and maintaining oxygen saturation on room air. CONSTITUTIONAL: No apparent distress. HEENT: Head is normocephalic. Pupils are equal, round. Sclerae anicteric. Mucous membranes of the mouth are moist. No JVD. No carotid bruit. CHEST EXAMINATION: Lungs are clear to auscultation. No chest wall tenderness is noted on palpation or with deep breathing. Diminished bilaterally. HEART EXAMINATION: Regular rate and rhythm. S1, S2 heard. No murmurs, gallops or rub. Distant heart sounds. ABDOMEN: Soft, nontender. Positive bowel sounds. EXTREMITIES: 2+ peripheral pulses, trace bilateral lower extremity edema and no calf tenderness. NEUROLOGIC EXAMINATION: Patient is awake, alert and oriented x3. ASSESSMENT Syncope Acute kidney injury secondary to dehydration Hyperkalemia Lactic acidosis Sinus bradycardia Coronary artery disease status post bypass grafting Hypertension Dyslipidemia Obesity, BMI 30 PLAN Hold beta blockers. Ongoing telemetry monitoring. Check TSH. Check for orthostatic changes. Repeat 2D echocardiogram and doppler study to assess cardiac structure and function. Thank you kindly for this consultation. Nurse Practitioner note has been reviewed, I agree with a documented findings and plan of care. Patient was seen and examined. Past Medical History Past Medical History: Coronary Artery Disease (CAD), Cancer, COPD, Diabetes Mellitus, Hyperlipidemia, Hypertension, Myocardial Infarction ([place]), Prostate Dis order Additional Past Medical History / Comment(s): prostate cancer with radiation > 20 years ago, nstemi, wears a brief incont urine/stool Last Myocardial Infarction Date:: 2017 History of Any Multi-Drug Resistant Organisms: ESBL, MRSA Date of last positivie culture/infection: 01/07/19 ESBL; 10/27/18 MRSA MDRO Source:: Urine-ESBL; Back-MRSA Past Surgical History: Coronary Bypass/CABG Additional Past Surgical History / Comment(s): 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,prostate bx, triple bypass 2017, bronchoscopy, picc line pt stated since removed Past Anesthesia/Blood Transfusion Reactions: No Reported Reaction Past Psychological History: No Psychological Hx Reported Additional Psychological History / Comment(s): pt was dc'd from [facility] 01-01-19. lives with son, has vna, wheel chair, walker , nebulizer Smoking Status: Former smoker Past Alcohol Use History: None Reported Additional Past Alcohol Use History / Comment(s): quit smoking 1979 (prior to that 3 packs/day since his teens) Past Drug Use History: None Reported - Past Family History Father Additional Family Medical History / Comment(s): old age Mother Family Medical History: Coronary Artery Disease (CAD), Diabetes Mellitus Additional Family Medical History / Comment(s): CABG Medications and Allergies Home Medications Medication Instructions Recorded Confirmed Type Aspirin [[place] Aspirin EC] 81 mg PO DAILY 01/07/19 08/24/20 History Atorvastatin [Lipitor] 20 mg PO HS 01/07/19 08/24/20 History Cholecalciferol [Vitamin D3 (25 5,000 unit PO DAILY 01/07/19 08/24/20 History Mcg = 1000 Iu)] Finasteride [Proscar] 5 mg PO HS 01/07/19 08/24/20 History Metoprolol Tartrate 12.5 mg PO BID 02/05/19 08/24/20 History Sertraline HCl [Zoloft] 50 mg PO DAILY 02/05/19 08/24/20 History Tamsulosin [Flomax] 0.4 mg PO HS 07/06/19 08/24/20 History Furosemide [Lasix] 20 mg PO DAILY 02/06/20 08/24/20 History Insulin Glargine,Hum.rec.anlog 25 unit SQ HS 02/06/20 08/24/20 History [Lantus Solostar] Losartan Potassium [Cozaar] 25 mg PO HS 02/06/20 08/24/20 History Acetaminophen [Tylenol Arthritis] 650 mg PO Q8H PRN 07/27/20 08/24/20 History Ferrous Sulfate [Feosol] 325 mg PO DAILY 07/27/20 08/24/20 History Fluticasone Nasal [place] [Flonase 1 spr EA NOSTRIL BID PRN 07/27/20 08/24/20 History Nasal [place]] Ipratropium-Albuterol Nebulize 3 ml INHALATION RT-QID PRN 07/27/20 08/24/20 History [Duoneb 0.5 mg-3 mg/3 ml Soln] Nitroglycerin Sl Tabs [Nitrostat] 0.4 mg SUBLINGUAL Q5M PRN #100 tab 07/29/20 08/24/20 Rx Glimepiride [Amaryl] 1 mg PO DAILY 08/24/20 08/24/20 History Isosorbide Mononitrate [Isosorbide 15 mg PO DAILY@1200 08/24/20 08/24/20 History Mononitrate ER] Potassium Chloride ER [K-Dur 20] 20 meq PO DAILY PRN 08/24/20 08/24/20 History Allergies Allergy/AdvReac Type Severity Reaction Status Date / Time No Known Allergies Allergy Verified 08/24/20 20:16 Physical Exam Vitals: Vital Signs Temp Pulse Pulse Resp BP BP Pulse Ox 08/25/20 03:00 97.3 F L 54 L 18 114/63 95 08/24/20 21:00 97.4 F L 51 L 18 124/66 95 08/24/20 20:00 47 L 18 152/78 100 08/24/20 19:45 97.4 F L 51 L 18 95 08/24/20 19:00 47 L 18 152/78 100 08/24/20 18:00 51 L 18 152/72 99 08/24/20 17:00 44 L 15 112/65 99 08/24/20 16:30 44 L 16 99/50 97 08/24/20 16:12 92 L 08/24/20 16:04 16 Intake and Output 08/24/20 08/25/20 08/25/20 22:59 06:59 14:59 Intake Total 900 0 Balance 900 0 Intake: Oral 900 0 Other: Voiding Method Toilet Toilet # Voids 2 5 # Bowel Movements 0 Weight 81.193 kg Results 08/25/20 05:20 08/25/20 05:20 Cardiac Enzymes 08/24/20 08/24/20 08/24/20 Range/Units 16:37 16:37 22:19 AST 23 (17-59) U/L Troponin I <0.012 <0.012 (0.000-0.034) ng/mL 08/25/20 08/25/20 Range/Units 05:20 05:20 AST 21 (17-59) U/L Troponin I 0.016 (0.000-0.034) ng/mL Coagulation 08/24/20 Range/Units 16:37 PT 9.9 (9.0-12.0) sec APTT 20.9 L (22.0-30.0) sec CBC 08/24/20 08/25/20 Range/Units 16:37 05:20 WBC 7.4 8.1 (3.8-10.6) k/uL RBC 4.37 4.27 L (4.30-5.90) m/uL Hgb 13.0 12.7 L (13.0-17.5) gm/dL Hct 40.8 39.3 (39.0-53.0) % Plt Count 184 159 (150-450) k/uL Comprehensive Metabolic Panel 08/24/20 08/25/20 Range/Units 16:37 05:20 Sodium 136 L 137 (137-145) mmol/L Potassium 5.2 H 5.2 H (3.5-5.1) mmol/L Chloride 106 107 (98-107) mmol/L Carbon Dioxide 19 L 23 (22-30) mmol/L BUN 32 H 30 H (9-20) mg/dL Creatinine 1.76 H 1.43 H (0.66-1.25) mg/dL Glucose 117 H 71 L (74-99) mg/dL Calcium 9.1 8.8 (8.4-10.2) mg/dL AST 23 21 (17-59) U/L ALT 22 20 (4-49) U/L Alkaline Phosphatase 78 80 (38-126) U/L Total Protein 6.1 L 6.0 L (6.3-8.2) g/dL Albumin 3.7 3.5 (3.5-5.0) g/dL Current Medications Generic Name Dose Route Start Last Admin Trade Name Freq PRN Reason Stop Dose Admin Acetaminophen 650 mg 08/24/20 20:54 Acetaminophen Tab 325 Mg Tab PO Q8H PRN Pain Aspirin 81 mg 08/25/20 09:00 Aspirin 81 Mg PO DAILY [facility] Atorvastatin Calcium 20 mg 08/24/20 21:00 08/24/20 21:15 Atorvastatin 20 Mg Tab PO 20 mg HS ALEXEY Administration Finasteride 5 mg 08/24/20 21:00 08/24/20 21:16 Finasteride 5 Mg Tab PO 5 mg HS [facility] Administration Furosemide 20 mg 08/25/20 09:00 Furosemide 20 Mg Tab PO DAILY [facility] Glimepiride 1 mg 08/25/20 09:00 Glimepiride 1 Mg Tab PO DAILY [facility] Insulin Detemir 20 unit 08/24/20 21:00 08/24/20 21:15 Insulin Detemir (Levemir) 100 Unit/Ml Syr SQ 20 unit HS [facility] Administration Isosorbide Mononitrate 15 mg 08/25/20 12:00 Isosorbide Mononitrate Er 30 Mg Tab.Er.24h PO DAILY@1200 [facility] Losartan Potassium 25 mg 08/24/20 21:00 08/24/20 21:15 Losartan 25 Mg Tab PO 25 mg HS [facility] Administration Morphine Sulfate 4 mg 08/24/20 18:59 Morphine Sulfate 4 Mg/Ml Syringe IV Q4HR PRN Severe Pain Naloxone HCl 0.2 mg 08/24/20 18:59 Naloxone 0.4 Mg/Ml 1 Ml Vial IV Q2M PRN Opioid Reversal Sertraline HCl 50 mg 08/25/20 09:00 Sertraline 50 Mg Tab PO DAILY [facility] Tamsulosin HCl 0.4 mg 08/24/20 21:00 08/24/20 21:15 Tamsulosin 0.4 Mg Cap.Er.24h PO 0.4 mg HS [facility] Administration Intake and Output 08/24/20 08/25/20 08/25/20 22:59 06:59 14:59 Intake Total 900 0 Balance 900 0 Intake: Oral 900 0 Other: Voiding Method Toilet Toilet # Voids 2 5 # Bowel Movements 0 Weight 81.193 kg 08/25/20 05:20 08/25/20 05:20
--- NOTE | 2020-08-25 13:54 | ECHOF ---
Referral Reason:syncope MEASUREMENTS -------- HEIGHT: 162.6 cm WEIGHT: 81.2 kg BP: 117/69 RVIDd: 3.8 cm (< 3.3) IVSd: 1.3 cm (0.6 - 1.1) LVIDd: 5.4 cm (3.9 - 5.3) LVPWd: 1.4 cm (0.6 - 1.1) IVSs: 1.9 cm LVIDs: 3.8 cm LVPWs: 1.9 cm LA Diam: 3.5 cm (2.7 - 3.8) Ao Diam: 3.6 cm (2.0 - 3.7) MV E Bereket: 0.42 m/s MV DecT: 258 ms MV A Bereket: 0.47 m/s MV E/A Ratio: 0.90 RAP: 5.00 mmHg RVSP: 34.92 mmHg FINDINGS -------- This was a technically difficult study with suboptimal views. The left ventricular size is normal. There is moderate concentric left ventricular hypertrophy. O verall left ventricular systolic function is normal with, an EF between 55 - 60 %. The right ventricle is mild to moderately enlarged. The left atrial size is normal. The right atrium was not well visualized. 5.0mg of Lumason was utilized for enhancement of images Interatrial and interventricular septum intact. The aortic valve was not well visualized. The aortic root size is normal. IVC Not well visulized. There is no pericardial effusion. CONCLUSIONS -------- 1. This was a technically difficult study with suboptimal views. 2. The left ventricular size is normal. 3. There is moderate concentric left ventricular hypertrophy. 4. Overall left ventricular systolic function is normal with, an EF between 55 - 60 %. 5. The right ventricle is mild to moderately enlarged. 6. 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
[2020-08-25] MEDS: ISOSORBIDE MONONITRATE ER 30 MG TAB.ER.24H PO SCH (13:55)
[2020-08-25 17:25] LABS: Glucose,Whole Blood 85 mg/dL (75-99)
[2020-08-25 20:11] LABS: Glucose,Whole Blood 108 mg/dL (75-99)
[2020-08-25] MEDS: LOSARTAN 25 MG TAB PO SCH (20:31)
[2020-08-25] MEDS: FINASTERIDE 5 MG TAB PO SCH (20:31)
[2020-08-25] MEDS: INSULIN DETEMIR (LEVEMIR) 100 UNIT/ML SYR SQ SCH (20:31)
[2020-08-25] MEDS: TAMSULOSIN 0.4 MG CAP.ER.24H PO SCH (20:31)
[2020-08-25] MEDS: ATORVASTATIN 20 MG TAB PO SCH (20:32)
--- NOTE | 2020-08-25 23:11 | P.HPIM ---
History of Present Illness H&P Date: 08/25/20 Chief Complaint: Syncope Cristo Perez is a 75 yo M with PMH of CAD s/p CABG, hx MT, HTN, HLD, T2DM who presented to the ED via EMS after a syncopal event at home. He had been having diarrhea for the past 1-2 days and yesterday he was cleaning his bathtub and blacked out. He remembers leaning forward and then he passed out, his son called EMS and he awoke after they arrived. He denies chest pain, shortness of breath, palpitations or radiation. He notes 5+ watery BM daily, no associated nausea, vomiting or abdominal pain. On presentation BP 99/50, P 44, lactic 2.5, Cr 1.76. CXR no acute process. Review of Systems All systems: negative Constitutional: Reports weakness, Denies chills, Denies fever Eyes: denies blurred vision, denies pain Ears, nose, mouth and throat: Denies headache, Denies sore throat Cardiovascular: Reports syncope, Denies chest pain, Denies palpitations, Denies shortness of breath Respiratory: Denies cough Gastrointestinal: Denies abdominal pain, Denies diarrhea, Denies nausea, Denies vomiting Musculoskeletal: Denies myalgias Integumentary: Denies pruritus, Denies rash Neurological: Denies numbness, Denies weakness Psychiatric: Denies anxiety, Denies depression Endocrine: Denies fatigue, Denies weight change Past Medical History Past Medical History: Coronary Artery Disease (CAD), Cancer, COPD, Diabetes Mellitus, Hyperlipidemia, Hypertension, Myocardial Infarction ([place]), Prostate D isorder Additional Past Medical History / Comment(s): prostate cancer with radiation > 20 years ago, nstemi, wears a brief incont urine/stool Last Myocardial Infarction Date:: 2017 History of Any Multi-Drug Resistant Organisms: ESBL, MRSA Date of last positivie culture/infection: 01/07/19 ESBL; 10/27/18 MRSA MDRO Source:: Urine-ESBL; Back-MRSA Past Surgical History: Coronary Bypass/CABG Additional Past Surgical History / Comment(s): 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,prostate bx, triple bypass 2017, bronchoscopy, picc line pt stated since removed Past Anesthesia/Blood Transfusion Reactions: No Reported Reaction Past Psychological History: No Psychological Hx Reported Additional Psychological History / Comment(s): pt was dc'd from [facility] 01-01-19. lives with son, has vna, wheel chair, walker , nebulizer Smoking Status: Former smoker Past Alcohol Use History: None Reported Additional Past Alcohol Use History / Comment(s): quit smoking 1979 (prior to that 3 packs/day since his teens) Past Drug Use History: None Reported - Past Family History Father Additional Family Medical History / Comment(s): old age Mother Family Medical History: Coronary Artery Disease (CAD), Diabetes Mellitus Additional Family Medical History / Comment(s): CABG Medications and Allergies Home Medications Medication Instructions Recorded Confirmed Type Aspirin [[place] Aspirin EC] 81 mg PO DAILY 01/07/19 08/24/20 History Atorvastatin [Lipitor] 20 mg PO HS 01/07/19 08/24/20 History Cholecalciferol [Vitamin D3 (25 5,000 unit PO DAILY 01/07/19 08/24/20 History Mcg = 1000 Iu)] Finasteride [Proscar] 5 mg PO HS 01/07/19 08/24/20 History Metoprolol Tartrate 12.5 mg PO BID 02/05/19 08/24/20 History Sertraline HCl [Zoloft] 50 mg PO DAILY 02/05/19 08/24/20 History Tamsulosin [Flomax] 0.4 mg PO HS 07/06/19 08/24/20 History Furosemide [Lasix] 20 mg PO DAILY 02/06/20 08/24/20 History Insulin Glargine,Hum.rec.anlog 25 unit SQ HS 02/06/20 08/24/20 History [Lantus Solostar] Losartan Potassium [Cozaar] 25 mg PO HS 02/06/20 08/24/20 History Acetaminophen [Tylenol Arthritis] 650 mg PO Q8H PRN 07/27/20 08/24/20 History Ferrous Sulfate [Feosol] 325 mg PO DAILY 07/27/20 08/24/20 History Fluticasone Nasal [place] [Flonase 1 spr EA NOSTRIL BID PRN 07/27/20 08/24/20 History Nasal [place]] Ipratropium-Albuterol Nebulize 3 ml INHALATION RT-QID PRN 07/27/20 08/24/20 History [Duoneb 0.5 mg-3 mg/3 ml Soln] Nitroglycerin Sl Tabs [Nitrostat] 0.4 mg SUBLINGUAL Q5M PRN #100 tab 07/29/20 08/24/20 Rx Glimepiride [Amaryl] 1 mg PO DAILY 08/24/20 08/24/20 History Isosorbide Mononitrate [Isosorbide 15 mg PO DAILY@1200 08/24/20 08/24/20 History Mononitrate ER] Potassium Chloride ER [K-Dur 20] 20 meq PO DAILY PRN 08/24/20 08/24/20 History Allergies Allergy/AdvReac Type Severity Reaction Status Date / Time No Known Allergies Allergy Verified 08/24/20 20:16 Physical Exam Vitals: Vital Signs Temp Pulse Pulse Pulse Pulse Resp BP 08/25/20 21:00 98.1 F 60 18 08/25/20 15:00 97.8 F 57 L 18 08/25/20 09:30 08/25/20 09:00 97.6 F 54 L 18 08/25/20 08:54 61 65 54 L 117/69 08/25/20 03:00 97.3 F L 54 L 18 BP BP BP Pulse Ox 08/25/20 21:00 143/74 95 08/25/20 15:00 128/64 95 08/25/20 09:30 95 08/25/20 09:00 115/68 94 L 08/25/20 08:54 100/60 115/68 08/25/20 03:00 114/63 95 Intake and Output 08/25/20 08/25/20 08/26/20 14:59 22:59 06:59 Intake Total 720 900 Balance 720 900 Intake: Oral 720 900 Other: Voiding Method Toilet Toilet # Voids 4 2 General: well nourished, well developed, NAD. Vitals reviewed Eyes: PERRL, EOMI, conjunctiva normal HENT: normocephalic, mucus membranes moist Neck: supple, no JVD Lungs: normal respiratory effort, no wheezes or rales CV: Regular rate and rhythm, no murmur. Peripheral pulses 2+ Abdomen: soft, nondistended, no organomegaly Lymph: no cervical or axillary LAD Skin: warm and dry. Neuro: A&Ox3, normal mood and affect Results CBC & Chem 7: 08/25/20 05:20 08/25/20 05:20 Labs: Abnormal Lab Results - Last 24 Hours (Table) 08/25/20 08/25/20 08/25/20 Range/Units 05:20 05:20 20:09 RBC 4.27 L (4.30-5.90) m/uL Hgb 12.7 L (13.0-17.5) gm/dL Lymphocytes # 0.9 L (1.0-4.8) k/uL Potassium 5.2 H (3.5-5.1) mmol/L BUN 30 H (9-20) mg/dL Creatinine 1.43 H (0.66-1.25) mg/dL Glucose 71 L (74-99) mg/dL POC Glucose (mg/dL) 108 H (75-99) mg/dL Total Protein 6.0 L (6.3-8.2) g/dL Assessment and Plan (1) Dehydration Current Visit: Yes Status: Acute Code(s): E86.0 - DEHYDRATION SNOMED Code(s): 51731288 (2) Syncope Current Visit: Yes Status: Acute Code(s): R55 - SYNCOPE AND COLLAPSE SNOMED Code(s): 348528141 (3) Acute renal failure (ARF) Current Visit: No Status: Acute Code(s): N17.9 - ACUTE KIDNEY FAILURE, UNSPECIFIED SNOMED Code(s): 03495371 (4) Coronary artery disease Current Visit: No Status: Acute Code(s): I25.10 - ATHSCL HEART DISEASE OF [place] CORONARY ARTERY W/O ANG PCTRS SNOMED Code(s): 68741240 (5) Insulin dependent diabetes mellitus Current Visit: No Status: Chronic Code(s): E11.9 - TYPE 2 DIABETES MELLITUS WITHOUT COMPLICATIONS; Z79.4 - [facility] (CURRENT) USE OF INSULIN SNOMED Code(s): 27913147 (6) Diarrhea Current Visit: Yes Status: Acute Code(s): R19.7 - DIARRHEA, UNSPECIFIED SNOMED Code(s): 91425813 Plan: 1. Syncope. Suspect secondary to dehydration. Cardiology consult. Hold BB and start IV saline 2. Acute kidney injury, prerenal. Monitor labs 3. Diarrhea. Check C diff PCR. Recommend increasing fiber 4. CAD s/p CABG. continue home medical therapy 5. T2DM. Continue lantus 20 u qhs, acucheck, sliding scale
[2020-08-26 06:56] LABS: Glucose,Whole Blood 90 mg/dL (75-99)
--- NOTE | 2020-08-26 08:17 | P.PN ---
Subjective Progress Note Date: 08/26/20 Principal diagnosis: Syncope/bradycardia This is a pleasant 75-year-old gentleman with coronary artery disease and prior coronary artery bypass grafting as well as hypertension and dyslipidemia was admitted to the hospital with syncope and bradycardia. He was on beta laurie which was held. The patient was seen today 08/26/2020. He is asymptomatic from a cardiovascular standpoint of view. He is hemodynamically stable. No bradycardia seen. He underwent an echocardiogram which revealed normal left ventricular systolic function with evidence of moderate left ventricular hypertrophy. From a cardiovascular standpoint of view, the patient can be discharged home Objective - Vital Signs Vital signs: Vital Signs Temp 98 F 08/26/20 03:00 Pulse 62 08/26/20 03:00 Resp 18 08/26/20 03:00 BP 109/96 08/26/20 03:00 Pulse Ox 96 08/26/20 03:00 Intake & Output 08/25/20 08/26/20 08/26/20 18:59 06:59 18:59 Intake Total 720 1350 Balance 720 1350 Intake: Oral 720 1350 Other: Voiding Method Toilet Toilet # Voids 4 5 - Constitutional General appearance: Present: no acute distress - Respiratory Respiratory: bilateral: CTA - Cardiovascular Heart sounds: normal: S1, S2 - Labs CBC & Chem 7: 08/25/20 05:20 08/25/20 05:20 Labs: Abnormal Lab Results - Last 24 Hours (Table) 08/25/20 Range/Units 20:09 POC Glucose (mg/dL) 108 H (75-99) mg/dL Assessment and Plan Assessment: Assessment #1 syncopal episode #2 sinus bradycardia #3 coronary artery disease Plan #1 the patient is asymptomatic #2 he remains hemodynamically stable #3 the bradycardia has improved #4 he possibly can be discharged home
[2020-08-26] MEDS: ASPIRIN 81 MG PO SCH (09:21)
[2020-08-26] MEDS: SERTRALINE 50 MG TAB PO SCH (09:21)
[2020-08-26] MEDS: FUROSEMIDE 20 MG TAB PO SCH (09:21)
[2020-08-26] MEDS: GLIMEPIRIDE 1 MG TAB PO SCH (09:22)
[2020-08-26 10:48] LABS: Potassium 5.4 mmol/L (3.5-5.1)
[2020-08-26] MEDS ORDERED: SODIUM POLYSTYRENE SULFONATE 15 GM/60 ML BOTTLE PO ONE (12:40)
[2020-08-26] MEDS ORDERED: FLUTICASONE 50MCG/SPRAY NASAL 16GM EA NOSTRIL PRN (12:42)
[2020-08-26] MEDS ORDERED: NITROGLYCERIN SL TABS 0.4 MG TAB SUBLINGUAL PRN (12:42)
[2020-08-26 13:14] LABS: Glucose,Whole Blood 85 mg/dL (75-99)
--- NOTE | 2020-08-26 13:51 | PN ---
PROGRESS NOTE DATE OF SERVICE: 08/26/2020 I am covering for Dr. Adam HISTORY: This 75-year-old gentleman who was admitted with an episode of syncope also was found to have dehydration. Patient also had acute renal failure. The patient also was found to be orthostatic hypotensive. The creatinine was 1.76. After hydration it is 1.41, potassium 5.4. PAST MEDICAL HISTORY: Reviewed. REVIEW OF SYSTEMS: CARDIOVASCULAR SYSTEM: No angina or palpitations. RESPIRATION as mentioned earlier. NERVOUS SYSTEM: Mild diffuse weakness. CURRENT MEDICATIONS: Reviewed and include: 1. Tylenol. 2. Aspirin. 3. Lipitor. 4. Proscar. 5. Amaryl. 6. Levemir. 7. Imdur. 8. Lasix. 9. Cozaar. 10.Narcan. 11.Zoloft. 12.Flomax. PHYSICAL EXAMINATION: Patient is alert, oriented x3. Pulse 73. Blood pressure is 157/71 supine and 133/74 standing. Respirations 18, temperature normal, pulse ox 94% on room air. HEENT: Conjunctivae normal. Oral mucosa moist. NECK is no jugular venous distention. No carotid bruit. No lymph node enlargement. CARDIOVASCULAR systems: S1, S2 muffled. RESPIRATION: Breath sounds diminished in the bases. Scattered rhonchi. No crackles. ABDOMEN: Soft, nontender. LEGS are no edema. No swelling. NERVOUS SYSTEM: No focal deficits. LABS: WBC 8.2, hemoglobin 12.7. Sodium 130. Potassium 4.1. The chest x-ray done in the F showed no acute radiographical findings which were reviewed personally by me and the EKG showed a full-blown right bundle branch block. ASSESSMENT: 1. Syncope, possibly vasovagal syncope secondary to dehydration. 2. Acute renal failure possibly prerenal acute tubular necrosis. 3. Possible chronic kidney stage 3 underlying. 4. Hyponatremia. 5. Hyperkalemia secondary to renal failure. 6. Diabetes mellitus type 2. 7. Anemia, normocytic anemia of chronic disease. 8. History of coronary artery disease. 9. History of chronic obstructive pulmonary disease. 10.Diabetes mellitus type 2. 11.Hypertension. 12.Hyperlipidemia. 13.History of myocardial infarction. 14.History of prostate cancer with radiation. 15.History ESBL. 16.History of MRSA. 17.History of coronary artery disease/coronary artery bypass grafting. 18.History of right nephrectomy. 19.FULL CODE. RECOMMENDATIONS AND DISCUSSION: This 75-year-old gentleman who presented with multiple complex medical issues, at this time, I recommend to continue the current medications, management and symptomatic treatment. Otherwise I would recommend a course of IV fluids. Hold Lasix. Continue to monitor. DVT prophylaxis. PT/OT evaluation. Otherwise repeat labs are ordered. Kayexalate 10 g for hyperkalemia. Low-potassium diet. Prognosis guarded. Further recommendations to follow. MMODL / IJN: [id number] /
[2020-08-26] MEDS: ISOSORBIDE MONONITRATE ER 30 MG TAB.ER.24H PO SCH (15:00)
[2020-08-26] MEDS: SODIUM CHLORIDE 0.9% 1,000 ML IV SCH (15:03)
[2020-08-26] MEDS: IPRATROPIUM-ALBUTEROL 3 ML NEB INHALATION PRN (16:10)
[2020-08-26 17:43] LABS: Glucose,Whole Blood 125 mg/dL (75-99)
[2020-08-26 20:05] LABS: Glucose,Whole Blood 137 mg/dL (75-99)
[2020-08-26] MEDS: ATORVASTATIN 20 MG TAB PO SCH (20:15)
[2020-08-26] MEDS: TAMSULOSIN 0.4 MG CAP.ER.24H PO SCH (20:15)
[2020-08-26] MEDS: INSULIN DETEMIR (LEVEMIR) 100 UNIT/ML SYR SQ SCH (20:15)
[2020-08-26] MEDS: FINASTERIDE 5 MG TAB PO SCH (20:15)
[2020-08-26] MEDS: LOSARTAN 25 MG TAB PO SCH (20:15)
[2020-08-27 04:02] LABS: Glucose,Whole Blood 111 mg/dL (75-99)
[2020-08-27 06:37] LABS: Glucose,Whole Blood 126 mg/dL (75-99)
[2020-08-27] MEDS: IPRATROPIUM-ALBUTEROL 3 ML NEB INHALATION PRN ×2 (08:56→12:01)
--- NOTE | 2020-08-27 09:39 | P.PN ---
Subjective Progress Note Date: 08/27/20 Principal diagnosis: Syncope/bradycardia This is a pleasant 75-year-old gentleman with coronary artery disease and prior coronary artery bypass grafting as well as hypertension and dyslipidemia was admitted to the hospital with syncope and bradycardia. He was on beta laurie which was held. The patient was seen today August 272019. He is asymptomatic. He was kept one more day because his potassium was elevated yesterday and he was given Kayexalate with repeat of the potassium today. The potassium still pending at this point. If the potassium comes down the patient can be discharged home. Objective - Vital Signs Vital signs: Vital Signs Temp 98.1 F 08/27/20 08:04 Pulse 76 08/27/20 09:11 Resp 18 08/27/20 08:04 BP 145/82 08/27/20 08:04 Pulse Ox 94 L 08/27/20 08:04 Intake & Output 08/26/20 08/27/20 08/27/20 18:59 06:59 18:59 Intake Total 540 900 Balance 540 900 Intake: Oral 540 900 Other: Voiding Method Toilet Toilet Toilet # Voids 2 4 - Constitutional General appearance: Present: no acute distress - Respiratory Respiratory: bilateral: CTA - Cardiovascular Rhythm: regular Heart sounds: normal: S1, S2 - Labs CBC & Chem 7: 08/25/20 05:20 08/26/20 10:13 Labs: Abnormal Lab Results - Last 24 Hours (Table) 08/26/20 08/26/20 08/26/20 Range/Units 10:13 17:41 20:03 Sodium 135 L (137-145) mmol/L Potassium 5.4 H (3.5-5.1) mmol/L BUN 29 H (9-20) mg/dL Creatinine 1.41 H (0.66-1.25) mg/dL Glucose 252 H (74-99) mg/dL POC Glucose (mg/dL) 125 H 137 H (75-99) mg/dL 08/27/20 08/27/20 Range/Units 04:01 06:36 Sodium (137-145) mmol/L Potassium (3.5-5.1) mmol/L BUN (9-20) mg/dL Creatinine (0.66-1.25) mg/dL Glucose (74-99) mg/dL POC Glucose (mg/dL) 111 H 126 H (75-99) mg/dL Assessment and Plan Assessment: Assessment #1 syncopal episode #2 sinus bradycardia #3 coronary artery disease Plan #1 the patient remains asymptomatic #2 remains hemodynamically stable #3 follow-up on the potassium #4 if the potassium comes down the patient can be discharged home
[2020-08-27] MEDS: ASPIRIN 81 MG PO SCH (09:59)
[2020-08-27] MEDS: SERTRALINE 50 MG TAB PO SCH (09:59)
[2020-08-27] MEDS: GLIMEPIRIDE 1 MG TAB PO SCH (10:00)
[2020-08-27] MEDS: CHOLECALCIFEROL 1,000 UNIT TAB PO SCH (10:00)
[2020-08-27] MEDS: FERROUS SULFATE 325 MG TAB PO SCH (10:00)
[2020-08-27] MEDS: SODIUM CHLORIDE 0.9% 1,000 ML IV SCH (10:01)
[2020-08-27 10:27] LABS: Basophils % (A) 1 %; Eosinophils # (A) 0.1 k/uL (0-0.7); Eosinophils % (A) 2 %; HCT 39.5 % (39.0-53.0); HGB 12.2 gm/dL (13.0-17.5); Hypochromasia Slight; Lymphocytes # (A) 0.7 k/uL (1.0-4.8); Lymphocytes % (A) 15 %; MCH 28.8 pg (25.0-35.0); MCV 92.9 fL (80.0-100.0); Mean Platelet Volume 7.8; Monocytes # (A) 0.2 k/uL (0-1.0); Monocytes % (A) 4 %; Neutrophils # (A) 3.5 k/uL (1.3-7.7); Neutrophils % (A) 76 %; Platelet Count 135 k/uL (150-450); RBC 4.25 m/uL (4.30-5.90); RDW 14.4 % (11.5-15.5); WBC 4.7 k/uL (3.8-10.6)
[2020-08-27 10:34] LABS: Calcium 9.2 mg/dL (8.4-10.2)
[2020-08-27 11:45] LABS: Glucose,Whole Blood 146 mg/dL (75-99)
[2020-08-27] MEDS: ISOSORBIDE MONONITRATE ER 30 MG TAB.ER.24H PO SCH (13:01)
[2020-08-27 16:36] LABS: Glucose,Whole Blood 122 mg/dL (75-99)
--- NOTE | 2020-08-27 17:20 | PN ---
PROGRESS NOTE DATE OF SERVICE: 08/27/2020 INTERVAL HISTORY: This is a 75-year-old gentleman who was admitted with episode of syncope and also found to be orthostatic hypotensive. The patient also had some renal failure and hyperkalemia. Patient is being closely monitored. Cardiology following the patient closely. Medication are being adjusted. PAST MEDICAL HISTORY: Reviewed. REVIEW OF SYSTEMS: CARDIOVASCULAR: No angina or palpitations. RESPIRATORY: As mentioned earlier. GI: As mentioned earlier. : No dysuria. NERVOUS SYSTEM: No numbness or weakness. CURRENT MEDICATIONS: Tylenol, DuoNeb, Aspirin, Lipitor, Vitamin D3, iron sulfate, Proscar, Flonase, Amaryl, Levemir, Imdur, Cozaar, morphine sulfate, Narcan, Nitrostat, Zoloft, Flomax. PHYSICAL EXAMINATION: GENERAL: Patient is alert and oriented times three. VITAL SIGNS: Pulse 68, blood pressure 149/71 with orthostatic changes, respirations 20, temperature normal, pulse ox 94% on 2 liters. HEENT: Conjunctivae normal. Oral mucosa is moist. NECK: No jugular venous distention. No carotid bruits. No lymph node enlargement. RESPIRATORY: Breath sounds diminished at the bases. A few scattered rhonchi and crackles. HEART: S1 and S2, muffled. ABDOMEN: Soft, no tenderness. No masses palpable. EXTREMITIES: No edema, no swelling. NERVOUS: Higher functions as mentioned earlier. Moves all four limbs. No focal motor or sensory deficits. LYMPHATICS: No lymph nodes palpable in the neck or axilla. SKIN: No rashes. JOINTS: No active deforming arthropathy. LABS: At this time show WBC 4.6, hemoglobin 12.2, platelets 135, creatinine is 1.33. The glucose is 146. ASSESSMENT: 1. Syncope, possibly vasovagal syncope ,possibly secondary to dehydration. 2. Acute renal failure, possibly prerenal acute tubular necrosis. 3. Possible chronic kidney disease stage 3 underlying. 4. Hyponatremia. 5. Hyperkalemia secondary to renal failure. 6. Diabetes mellitus type 2. 7. Anemia, normocytic anemia of chronic disease. 8. History of coronary artery disease. 9. History of chronic obstructive pulmonary disease. 10.Diabetes mellitus type 2. 11.Hypertension. 12.Hyperlipidemia. 13.History of myocardial infarction. 14.History of prostate cancer with radiation. 15.History ESBL. 16.History of MRSA. 17.History of coronary artery disease, coronary artery bypass graft. 18.History of right nephrectomy. 19.FULL CODE. RECOMMENDATIONS AND DISCUSSION: Recommend to continue current management and continue symptomatic treatment. Potassium has improved to 5 at this time. Creatinine is still elevated at 1.3, even though slight improvement. The patient is also slightly orthostatic at this time. I would continue the blood pressure medications and will recommend low-potassium diet. Continue the orthostatic vitals checking and Dr. Adam will follow tomorrow. Further recommendations to follow. MMODL / IJN: [id number] /
[2020-08-27 20:48] LABS: Glucose,Whole Blood 104 mg/dL (75-99)
[2020-08-27] MEDS: INSULIN DETEMIR (LEVEMIR) 100 UNIT/ML SYR SQ SCH (20:48)
[2020-08-27] MEDS: FINASTERIDE 5 MG TAB PO SCH (20:49)
[2020-08-27] MEDS: TAMSULOSIN 0.4 MG CAP.ER.24H PO SCH (20:49)
[2020-08-27] MEDS: ATORVASTATIN 20 MG TAB PO SCH (20:49)
[2020-08-27] MEDS: LOSARTAN 25 MG TAB PO SCH (20:49)
[2020-08-28 04:52] VITALS: TEMP 98.3
[2020-08-28 06:51] LABS: Glucose,Whole Blood 122 mg/dL (75-99)
[2020-08-28] MEDS: IPRATROPIUM-ALBUTEROL 3 ML NEB INHALATION PRN (07:40)
[2020-08-28 08:26] VITALS: BP 108/62; RESP 16
[2020-08-28 08:40] LABS: Basophils # (A) 0.1 k/uL (0-0.2); Basophils % (A) 1 %; Eosinophils # (A) 0.1 k/uL (0-0.7); Eosinophils % (A) 3 %; HCT 39.4 % (39.0-53.0); HGB 12.3 gm/dL (13.0-17.5); Lymphocytes # (A) 0.8 k/uL (1.0-4.8); Lymphocytes % (A) 14 %; MCH 28.9 pg (25.0-35.0); MCHC 31.2 g/dL (31.0-37.0); MCV 92.5 fL (80.0-100.0); Mean Platelet Volume 7.7; Monocytes # (A) 0.3 k/uL (0-1.0); Monocytes % (A) 5 %; Neutrophils # (A) 4.3 k/uL (1.3-7.7); Neutrophils % (A) 76 %; Platelet Count 146 k/uL (150-450); RBC 4.26 m/uL (4.30-5.90); RDW 14.5 % (11.5-15.5); WBC 5.6 k/uL (3.8-10.6)
[2020-08-28] MEDS: GLIMEPIRIDE 1 MG TAB PO SCH (08:56)
[2020-08-28] MEDS: CHOLECALCIFEROL 1,000 UNIT TAB PO SCH (08:57)
[2020-08-28] MEDS: FERROUS SULFATE 325 MG TAB PO SCH (08:57)
[2020-08-28] MEDS: ASPIRIN 81 MG PO SCH (08:57)
[2020-08-28 08:58] LABS: Calcium 9.4 mg/dL (8.4-10.2); Potassium 4.8 mmol/L (3.5-5.1)
[2020-08-28] MEDS: SERTRALINE 50 MG TAB PO SCH (08:58)
--- NOTE | 2020-08-28 09:29 | P.DS ---
Providers Date of admission: 08/27/20 09:57 Expected date of discharge: 08/28/20 Attending physician: Nhan Adam MD Consults: 08/24/20 19:00 Consult Physician Routine Consulting Provider: Devonte Woodruff Consult Reason/Comments: CP, syncope Do you want consulting provider notified?: Yes Primary care physician: Holzer Hospital Course: Final Diagnoses: (1) Dehydration Current Visit: Yes Status: Acute Code(s): E86.0 - DEHYDRATION SNOMED Code(s): 69818182 (2) Syncope, suspect secondary to the above Current Visit: Yes Status: Acute Code(s): R55 - SYNCOPE AND COLLAPSE SNOMED Code(s): 496420600 (3) Acute renal failure (ARF), prerenal Current Visit: No Status: Acute Code(s): N17.9 - ACUTE KIDNEY FAILURE, UNSPECIFIED SNOMED Code(s): 61261610 (4) Coronary artery disease, history of [place], status post CABG, EF 55-60% Current Visit: No Status: Acute Code(s): I25.10 - ATHSCL HEART DISEASE OF [place] CORONARY ARTERY W/O ANG PCTRS SNOMED Code(s): 21428575 (5) Insulin dependent diabetes mellitus Current Visit: No Status: Chronic Code(s): E11.9 - TYPE 2 DIABETES MELLITUS WITHOUT COMPLICATIONS; Z79.4 - ALF (CURRENT) USE OF INSULIN SNOMED Code(s): 89353507 (6) Diarrhea Current Visit: Yes Status: Acute Code(s): R19.7 - DIARRHEA, UNSPECIFIED SNOMED Code(s): 02574659 (7) hyperkalemia (8) possible chronic kidney disease, stage III (9) Anemia of chronic disease (10) hypertension (11) hyperlipidemia (12) history of right nephrectomy Hospital course :Cristo Perez is a 75 yo M with PMH of CAD s/p CABG, hx [place], HTN, HLD, T2DM who presented to the ED via EMS after a syncopal event at home. He had been having diarrhea for the past 1-2 days and yesterday he was cleaning his bathtub and blacked out. He remembers leaning forward and then he passed out, his son called EMS and he awoke after they arrived. He denies chest pain, shortness of breath, palpitations or radiation. He notes 5+ watery BM daily, no associated nausea, vomiting or abdominal pain. On presentation BP 99/50, P 44, lactic 2.5, Cr 1.76. CXR no acute process. Evaluated by cardiology. Beta laurie, Lasix and potassium held, placed on low potassium diet. Diarrhea resolved. Significant clinical improvement. This morning heart rates up into the high 80s to 90s, and beta laurie resumed. Cleared by cardiology for discharge. Patient is being discharged home today in stable condition with guarded prognosis. The impression and plan of care has been dictated as directed. : I performed a history and examination of this patient, discussed the same with the dictator. I agree with the dictator's note ,documented as a scribe. Any additional findings or plans will be noted. Patient Condition at Discharge: Stable Plan - Discharge Summary Discharge Rx Participant: Yes New Discharge Prescriptions: New Metoprolol Tartrate [Lopressor] 12.5 mg PO BID #1 dose Continue Atorvastatin [Lipitor] 20 mg PO HS Finasteride [Proscar] 5 mg PO HS Cholecalciferol [Vitamin D3 (25 Mcg = 1000 Iu)] 5,000 unit PO DAILY Aspirin [[place] Aspirin EC] 81 mg PO DAILY Sertraline HCl [Zoloft] 50 mg PO DAILY Tamsulosin [Flomax] 0.4 mg PO HS Insulin Glargine,Hum.rec.anlog [Lantus Solostar] 25 unit SQ HS Losartan Potassium [Cozaar] 25 mg PO HS Fluticasone Nasal [place] [Flonase Nasal [place]] 1 spr EA NOSTRIL BID PRN PRN Reason: Allergy Symptoms Acetaminophen [Tylenol Arthritis] 650 mg PO Q8H PRN PRN Reason: Pain Ipratropium-Albuterol Nebulize [Duoneb 0.5 mg-3 mg/3 ml Soln] 3 ml INHALATION RT-QID PRN PRN Reason: Shortness Of Breath Ferrous Sulfate [Feosol] 325 mg PO DAILY Nitroglycerin Sl Tabs [Nitrostat] 0.4 mg SUBLINGUAL Q5M PRN #100 tab PRN Reason: Chest Pain Glimepiride [Amaryl] 1 mg PO DAILY Isosorbide Mononitrate [Isosorbide Mononitrate ER] 15 mg PO DAILY@1200 Discontinued Metoprolol Tartrate 12.5 mg PO BID Discharge Medication List Aspirin [[place] Aspirin EC] 81 mg PO DAILY 01/07/19 [History] Atorvastatin [Lipitor] 20 mg PO HS 01/07/19 [History] Cholecalciferol [Vitamin D3 (25 Mcg = 1000 Iu)] 5,000 unit PO DAILY 01/07/19 [History] Finasteride [Proscar] 5 mg PO HS 01/07/19 [History] Sertraline HCl [Zoloft] 50 mg PO DAILY 02/05/19 [History] Tamsulosin [Flomax] 0.4 mg PO HS 07/06/19 [History] Insulin Glargine,Hum.rec.anlog [Lantus Solostar] 25 unit SQ HS 02/06/20 [History] Losartan Potassium [Cozaar] 25 mg PO HS 02/06/20 [History] Acetaminophen [Tylenol Arthritis] 650 mg PO Q8H PRN 07/27/20 [History] Ferrous Sulfate [Feosol] 325 mg PO DAILY 07/27/20 [History] Fluticasone Nasal [place] [Flonase Nasal [place]] 1 spr EA NOSTRIL BID PRN 07/27/20 [History] Ipratropium-Albuterol Nebulize [Duoneb 0.5 mg-3 mg/3 ml Soln] 3 ml INHALATION RT-QID PRN 07/27/20 [History] Nitroglycerin Sl Tabs [Nitrostat] 0.4 mg SUBLINGUAL Q5M PRN #100 tab 07/29/20 [Rx] Glimepiride [Amaryl] 1 mg PO DAILY 08/24/20 [History] Isosorbide Mononitrate [Isosorbide Mononitrate ER] 15 mg PO DAILY@1200 08/24/20 [History] Metoprolol Tartrate [Lopressor] 12.5 mg PO BID #1 dose 08/28/20 [Rx] Follow up Appointment(s)/Referral(s): Homer Harper MD [STAFF PHYSICIAN] - 1 Week Della Grant MD [Primary Care Provider] - 3 Days Ambulatory/Diagnostic Orders: Complete Blood Count w/diff [LAB.AMB] Time Frame: 3 Days, Location: None Selected Activity/Diet/Wound Care/Special Instructions: Beta laurie resumed-heart rates currently in the high 80s to 90s, Lasix, potassium remain on hold. Diet: Low potassium
[2020-08-28 09:44] VITALS: PULSE 75
--- NOTE | 2020-08-29 21:47 | CDI ---
Documentation Clarification Form Date: 08/27/2020 From: Beto Harper Phone: If you have a question about this query, please contact Ruthie Segura Lath Tier at [phone] between 8am and 5pm. Admit Date: 08/27/2020 Discharge Date:08/28/2020 Patient Name: Cristo Perez Visit Number: [id number] ATTENTION: The Clinical Documentation Specialists (CDI) and [facility] Coding Staff appreciate your assistance in clarifying documentation. Please respond to the clarification below the line at the bottom and electronically sign. The CDI & [facility] Coding staff will review the response and follow-up if needed. Please note: Queries are made part of the Legal Health Record. If you have any questions, please contact the author of this message via ITS. Dear Kia Cuba MD., Acute Renal failure is documented in Dr. Flex Ramsey Notes as "Acute renal failure, possibly prerenal acute tubular necrosis" . History Risk factors/Other underlying illness:DM type 2, COPD, CAD, Hyperlipidemia Labs: Patient presents with a BUN/CR and GFR of: 29H/1.76 and 43 Patients baseline BUN/CR and GFR: NA I recommend to continue the current medications, management and symptomatic treatment.Otherwise I would recommend a course of IV fluids. 08/26 and 08/[address] Flex Ramsey "Acute renal failure possibly prerenal acute tubular necrosis". Per DS "Acute renal failure". In your professional opinion, can you please clarify if the condition can be further specified? Acute Renal Failure with Acute Tubular Necrosis Acute Renal Failure with Renal Cortical Necrosis Acute Renal Failure with other specified pathological cause, please specify Acute Renal Failure with other cause, please specify Unable to determine Other, please specify Acute Renal Failure with Acute Tubular Necrosis MTDD
== END 2020-08-28 10:55 | disposition home or self-care (01) ==
LOC: EC 16:00 → 3NCARDOBS 19:01 → INTOOBSV 08-27 09:57 → OBSVTOIN 08-27 09:57 → UNDODISIN 08-28 10:55
PROVIDERS: ADMIT Family Medicine; ATTEND Family Medicine
DX: E86.0 Dehydration (principal); I95.9 Hypotension, unspecified; R55 Syncope and collapse; W18.39XA Other fall on same level, initial encounter; Y93.E5 Activity, floor mopping and cleaning; Y92.002 Bathroom of unspecified non-institutional (private) residence as the place of occurrence of the external cause; N17.9 Acute kidney failure, unspecified; R07.9 Chest pain, unspecified; I25.10 Atherosclerotic heart disease of native coronary artery without angina pectoris; E87.5 Hyperkalemia; E87.1 Hypo-osmolality and hyponatremia; E87.2 Acidosis; I25.2 Old myocardial infarction; Z95.1 Presence of aortocoronary bypass graft; E11.9 Type 2 diabetes mellitus without complications; R19.7 Diarrhea, unspecified; D63.8 Anemia in other chronic diseases classified elsewhere; I10 Essential (primary) hypertension; E78.5 Hyperlipidemia, unspecified; Z90.5 Acquired absence of kidney; J44.9 Chronic obstructive pulmonary disease, unspecified; Z85.46 Personal history of malignant neoplasm of prostate; Z92.3 Personal history of irradiation; R32 Unspecified urinary incontinence; R15.9 Full incontinence of feces; Z86.14 Personal history of Methicillin resistant Staphylococcus aureus infection; Z86.19 Personal history of other infectious and parasitic diseases; Z98.890 Other specified postprocedural states; Z87.891 Personal history of nicotine dependence; Z82.49 Family history of ischemic heart disease and other diseases of the circulatory system; Z83.3 Family history of diabetes mellitus; R00.1 Bradycardia, unspecified; E66.9 Obesity, unspecified; Z68.30 Body mass index [BMI] 30.0-30.9, adult; Z79.82 Long term (current) use of aspirin; Z79.4 Long term (current) use of insulin; Z79.899 Other long term (current) drug therapy
CPT/HCPCS: 96361 ×3; 96374; 99285; 94640 ×4; 94760; 93005; 97161; 97166; 80053 ×2; 80048 ×3; 84443; 83605; 83735 ×2; 84484 ×2; 85025 ×4; 85610; 85730; 71046; G0378 ×5; C8929; S0138 ×4; J2270; Q9950; 93306; 96360

== ENCOUNTER 2020-10-30 01:16 | Emergency (ER) | payer MEDICARE, OTHER ==
[2020-10-30 01:25] VITALS: PULSE 61; RESP 16; TEMP 97.9
[2020-10-30] MEDS ORDERED: HYDROcodone/APAP 5-325MG 1 EACH TAB PO STA (01:54)
--- NOTE | 2020-10-30 02:43 | XR ---
EXAM: XR Left Foot Complete, 3 or More Views CLINICAL HISTORY: ITS.REASON XR Reason: pain TECHNIQUE: Frontal, lateral and oblique views of the left foot. COMPARISON: No relevant prior studies available. FINDINGS: Bones/joints: No acute fracture or traumatic malalignment. Degenerative changes. Small calcaneal heel spur. Quadriceps enthesophyte. Soft tissues: Unremarkable. No radiopaque foreign body. Vasculature: Vascular calcifications. IMPRESSION: No acute findings in the left foot.
--- NOTE | 2020-10-30 02:44 | XR ---
EXAM: XR Left Ankle Complete, 3 or More Views CLINICAL HISTORY: ITS.REASON XR Reason: pain TECHNIQUE: Frontal, lateral and oblique views of the left ankle. COMPARISON: No relevant prior studies available. FINDINGS: Bones/joints: No acute fracture or traumatic malalignment. Degenerative changes. Small calcaneal heel spur. Quadriceps enthesophyte. Soft tissues: Unremarkable. Vasculature: Vascular calcifications. IMPRESSION: No acute findings in the left ankle.
[2020-10-30] MEDS ORDERED: ACET/COD 300 MG/30 MG STARTER PACK 6 TAB BTL PO STA (03:23)
--- NOTE | 2020-10-30 03:23 | ED ---
General Adult HPI - General Chief complaint: Extremity Injury, Lower Stated complaint: LT foot pain Time Seen by Provider: 10/30/20 01:30 Source: patient, RN notes reviewed, old records reviewed Limitations: physical limitation - History of Present Illness Initial comments: 75-year-old male patient to ED for evaluation of left foot and ankle pain for the last 2 days. Patient does not recall any sort of trauma or falls. Denies any other acute complaints. Denies any chest pain shortness of breath nausea vomiting diarrhea. Systemic: Pt denies fatigue, fever/chills, rash. Pt denies weakness, night sweats, weight loss. Neuro: Pt denies headache, visual disturbances, syncope or pre-syncope. HEENT: Pt denies ocular discharge or irritation, otalgia, rhinorrhea, p haryngitis or notable lymphadenopathy. Cardiopulmonary: Pt denies chest pain, SOB, heart palpitations, dyspnea on exertion. Abdominal/GI: Pt denies abdominal pain, n/v/d. : Pt denies dysuria, burning w/ urination, frequency/urgency. Denies new onset urinary or bowel incontinence. Neuro: Pt denies new onset weakness, paresthesias. - Related Data Home Medications Medication Instructions Recorded Confirmed Aspirin [[place] Aspirin EC] 81 mg PO DAILY 01/07/19 08/24/20 Atorvastatin [Lipitor] 20 mg PO HS 01/07/19 08/24/20 Cholecalciferol [Vitamin D3 (25 5,000 unit PO DAILY 01/07/19 08/24/20 Mcg = 1000 Iu)] Finasteride [Proscar] 5 mg PO HS 01/07/19 08/24/20 Sertraline HCl [Zoloft] 50 mg PO DAILY 02/05/19 08/24/20 Tamsulosin [Flomax] 0.4 mg PO HS 07/06/19 08/24/20 Insulin Glargine,Hum.rec.anlog 25 unit SQ HS 02/06/20 08/24/20 [Lantus Solostar] Losartan Potassium [Cozaar] 25 mg PO HS 02/06/20 08/24/20 Acetaminophen [Tylenol Arthritis] 650 mg PO Q8H PRN 07/27/20 08/24/20 Ferrous Sulfate [Feosol] 325 mg PO DAILY 07/27/20 08/24/20 Fluticasone Nasal [place] [Flonase 1 spr EA NOSTRIL BID PRN 07/27/20 08/24/20 Nasal [place]] Ipratropium-Albuterol Nebulize 3 ml INHALATION RT-QID PRN 07/27/20 08/24/20 [Duoneb 0.5 mg-3 mg/3 ml Soln] Glimepiride [Amaryl] 1 mg PO DAILY 08/24/20 08/24/20 Isosorbide Mononitrate [Isosorbide 15 mg PO DAILY@1200 08/24/20 08/24/20 Mononitrate ER] Previous Rx's Medication Instructions Recorded Nitroglycerin Sl Tabs [Nitrostat] 0.4 mg SUBLINGUAL Q5M PRN #100 tab 07/29/20 Metoprolol Tartrate [Lopressor] 12.5 mg PO BID #1 dose 08/28/20 Allergies Allergy/AdvReac Type Severity Reaction Status Date / Time No Known Allergies Allergy Verified 10/30/20 01:25 Review of Systems ROS Statement: Those systems with pertinent positive or pertinent negative responses have been documented in the HPI. ROS Other: All systems not noted in ROS Statement are negative. Past Medical History Past Medical History: Coronary Artery Disease (CAD), Cancer, COPD, Diabetes Mellitus, Hyperlipidemia, Hypertension, Myocardial Infarction (IA), Prostate Disorder Additional Past Medical History / Comment(s): prostate cancer with radiation > 20 years ago, nstemi, wears a brief incont urine/stool Last Myocardial Infarction Date:: 2017 History of Any Multi-Drug Resistant Organisms: ESBL, MRSA Date of last positivie culture/infection: 01/07/19 ESBL; 10/27/18 MRSA MDRO Source:: Urine-ESBL; Back-MRSA Past Surgical History: Coronary Bypass/CABG Additional Past Surgical History / Comment(s): 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,prostate bx, triple bypass 2017, bronchoscopy, picc line pt stated since removed Past Anesthesia/Blood Transfusion Reactions: No Reported Reaction Past Psychological History: No Psychological Hx Reported Smoking Status: Former smoker Past Alcohol Use History: None Reported Past Drug Use History: None Reported - Past Family History Father Additional Family Medical History / Comment(s): old age Mother Family Medical History: Coronary Artery Disease (CAD), Diabetes Mellitus Additional Family Medical History / Comment(s): CABG General Exam - General Exam Comments Initial Comments: Constitutional: NAD, AOX3, Pt has pleasant affect. HEENT: NC/AT, trachea midline, neck supple, no lymphadenopathy. Posterior pharynx non erythematous, without exudates. External ears appear normal, without discharge. Mucous membranes moist. EOM intact. There is no scleral icterus. No pallor noted. Cardiopulmonary: RRR, no murmurs, rubs or gallops, no JVD noted. Lungs CTAB in anterior and posterior [place]. No peripheral edema. Abdominal exam: Abdomen soft and non-distended. Abdomen non-tender to palpation in all 4 quadrants. Bowel sounds active in LLQ. No hepatosplenomegaly. Neuro: CN II-XII grossly intact. No nuchal rigidity. No raccon eyes, no narayan sign. MSK: Mild tenderness to the lateral malleoli and anterior foot region of the left foot. No external skin changes. Dorsalis pedis, posterior tibialis +2 equal bilaterally. Capillary refill less than 2 seconds. Sensation intact. No posterior calf tenderness bilaterally, homans sign negative bilaterally. Posterior tibialis and radial pulse +2 bilaterally. Sensation intact in upper and lower extremities. Full active ROM in upper and lower extremities, 5/5 stregnth. Limitations: physical limitation Course Vital Signs 10/30/20 01:21 Temperature 97.9 F Pulse Rate 61 Respiratory 16 Rate Blood Pressure 199/81 O2 Sat by Pulse 97 Oximetry Medical Decision Making - Medical Decision Making 75-year-old male patient to ED for foot and ankle pain. Vital signs display mild hypertension. Improved with analgesia. Plain film foot and ankle displayed no acute process degenerative changes. Patient was able to ambulate. Patient was placed in a postoperative walking boot will discharge with outpatient primary care follow-up and return precautions. Case discussed with Dr. Gipson. Disposition Clinical Impression: Foot pain Disposition: HOME SELF-CARE Condition: Stable Instructions (If sedation given, give patient instructions): Arthralgia (ED) Additional Instructions: Follow up with PCP tomorrow. May ambulate as needed. Take pain medication as needed. Return to ED with any worsening symptoms. Is patient prescribed a controlled substance at d/c from ED?: No Referrals: Della Grant MD [Primary Care Provider] - 1-2 days
[2020-10-30 03:44] VITALS: BP 181/71
== END 2020-10-30 03:43 | disposition home or self-care (01) ==
LOC: EC 01:16
DX: M25.572 Pain in left ankle and joints of left foot (principal); J44.9 Chronic obstructive pulmonary disease, unspecified; E11.9 Type 2 diabetes mellitus without complications; E78.5 Hyperlipidemia, unspecified; I10 Essential (primary) hypertension; I25.2 Old myocardial infarction; Z79.4 Long term (current) use of insulin; Z79.82 Long term (current) use of aspirin; Z79.899 Other long term (current) drug therapy; Z85.46 Personal history of malignant neoplasm of prostate; Z92.3 Personal history of irradiation; Z86.14 Personal history of Methicillin resistant Staphylococcus aureus infection; Z87.891 Personal history of nicotine dependence; Z95.1 Presence of aortocoronary bypass graft; Z90.5 Acquired absence of kidney
CPT/HCPCS: 99284

== ENCOUNTER 2020-12-06 06:25 | Inpatient (IN) | payer MEDICARE, OTHER ==
--- NOTE | 2020-12-06 06:50 | ED ---
General Adult HPI - General Chief complaint: Extremity Injury, Upper Stated complaint: Fall, rt arm pain Time Seen by Provider: 12/06/20 06:35 Source: patient, family, RN notes reviewed Mode of arrival: wheelchair Limitations: no limitations - History of Present Illness Initial comments: 75-year-old male with a past medical history of CAD, COPD, diabetes mellitus, hyperlipidemia, hypertension, [place], right nephrectomy Presents to the emergency room for right arm pain. Patient reports that yesterday morning he was standing up urinating. He states he went to pull down his pants and fell over. He reports he fell on his right side. Patient states that this morning after sleeping the pain in his right shoulder and wrist worsened. He also had pain in his back that resolved. It is painful to move his shoulder and wrist. It is painful when palpating his right wrist. Patient has no other complaints at this time including shortness of breath, chest pain, abdominal pain, nausea or vomiting, headache, or visual changes. - Related Data Home Medications Medication Instructions Recorded Confirmed Aspirin [Mcdowell Aspirin EC] 81 mg PO DAILY 01/07/19 12/06/20 Atorvastatin [Lipitor] 20 mg PO HS 01/07/19 12/06/20 Cholecalciferol [Vitamin D3 (25 5,000 unit PO DAILY 01/07/19 12/06/20 Mcg = 1000 Iu)] Finasteride [Proscar] 5 mg PO DAILY 01/07/19 12/06/20 Sertraline HCl [Zoloft] 50 mg PO DAILY 02/05/19 12/06/20 Tamsulosin [Flomax] 0.4 mg PO HS 07/06/19 12/06/20 Insulin Glargine,Hum.rec.anlog 25 unit SQ HS 02/06/20 12/06/20 [Lantus Solostar] Losartan Potassium [Cozaar] 25 mg PO HS 02/06/20 12/06/20 Acetaminophen [Tylenol Arthritis] 650 mg PO HS 07/27/20 12/06/20 Ferrous Sulfate [Feosol] 325 mg PO DAILY 07/27/20 12/06/20 Ipratropium-Albuterol Nebulize 3 ml INHALATION RT-QID PRN 07/27/20 12/06/20 [Duoneb 0.5 mg-3 mg/3 ml Soln] Glimepiride [Amaryl] 1 mg PO DAILY 08/24/20 12/06/20 Isosorbide Mononitrate [Isosorbide 15 mg PO DAILY@1200 08/24/20 12/06/20 Mononitrate ER] Gabapentin [Neurontin] 100 mg PO HS PRN 12/06/20 12/06/20 Previous Rx's Medication Instructions Recorded Nitroglycerin Sl Tabs [Nitrostat] 0.4 mg SUBLINGUAL Q5M PRN #100 tab 07/29/20 Allergies Allergy/AdvReac Type Severity Reaction Status Date / Time No Known Allergies Allergy Verified 12/06/20 07:45 Review of Systems ROS Statement: Those systems with pertinent positive or pertinent negative responses have been documented in the HPI. ROS Other: All systems not noted in ROS Statement are negative. Past Medical History Past Medical History: Coronary Artery Disease (CAD), Cancer, COPD, Diabetes Mellitus, Hyperlipidemia, Hypertension, Myocardial Infarction ([place]), Prostate Disorder Additional Past Medical History / Comment(s): prostate cancer with radiation > 20 years ago, nstemi, wears a brief incont urine/stool Last Myocardial Infarction Date:: 2017 History of Any Multi-Drug Resistant Organisms: ESBL, MRSA Date of last positivie culture/infection: 01/07/19 ESBL; 10/27/18 MRSA MDRO Source:: Urine-ESBL; Back-MRSA Past Surgical History: Coronary Bypass/CABG Additional Past Surgical History / Comment(s): 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,prostate bx, triple bypass 2017, bronchoscopy, picc line pt stated since removed Past Anesthesia/Blood Transfusion Reactions: No Reported Reaction Past Psychological History: No Psychological Hx Reported Smoking Status: Former smoker Past Alcohol Use History: None Reported Past Drug Use History: None Reported - Past Family History Father Additional Family Medical History / Comment(s): old age Mother Family Medical History: Coronary Artery Disease (CAD), Diabetes Mellitus Additional Family Medical History / Comment(s): CABG General Exam Limitations: no limitations General appearance: alert, in no apparent distress Head exam: Present: atraumatic, normocephalic, normal inspection Eye exam: Present: normal appearance, PERRL, EOMI. Absent: scleral icterus, conjunctival injection ENT exam: Present: normal exam, mucous membranes moist Neck exam: Present: normal inspection, full ROM. Absent: tenderness, meningismus, lymphadenopathy Respiratory exam: Present: normal lung sounds bilaterally. Absent: respiratory distress, wheezes, rales, rhonchi, stridor Cardiovascular Exam: Present: regular rate, normal rhythm, normal heart sounds. Absent: systolic murmur, diastolic murmur, rubs, gallop, clicks GI/Abdominal exam: Present: soft, normal bowel sounds. Absent: distended, tenderness, guarding, rebound, rigid, pulsatile mass Extremities exam: Present: tenderness (Tenderness in the right wrist dorsal aspect. No scaphoid tenderness.), normal capillary refill (Capillary refill sluggish in the right hand, bilateral radial pulses are weak when palpating however they are equal bilaterally. Radial pulses do have Doppler signals bilaterally), joint swelling (Minimal edema of the right wrist noted.), other (Sensation intact right upper extremity, no paresthesias.). Absent: full ROM (Patient has pain with 90 abduction and flexion of the right shoulder.) Neurological exam: Present: alert Course Vital Signs 12/06/20 12/06/20 12/06/20 06:25 07:03 07:42 Temperature 98.4 F Pulse Rate 67 57 L Respiratory 20 18 18 Rate Blood Pressure 197/91 180/82 Blood Pressure 152/79 [Left Arm] Blood Pressure 172/64 [Right Arm] O2 Sat by Pulse 97 94 L 99 Oximetry 12/06/20 12/06/20 12/06/20 08:20 09:20 10:00 Temperature 98 F Pulse Rate 53 L 54 L 52 L Respiratory 20 20 18 Rate Blood Pressure 169/72 123/77 162/77 Blood Pressure [Left Arm] Blood Pressure [Right Arm] O2 Sat by Pulse 99 100 100 Oximetry EKG Findings - EKG Comments: EKG Findings:: Sinus bradycardia with second-degree AV block type II, ventricular rate 47, TX interval 184, QTc 449. Repeat EKG 818: Sinus bradycardia, ventricular rate 54, TX interval 188, QTc 474 Medical Decision Making - Medical Decision Making 75-year-old male presents for right arm pain after a fall yesterday. States he felt during the morning and did not hit his head. No blood thinners. However the pain worsened after he woke up this morning. He reports pain with movement of the right shoulder however his worst pain is in his right wrist. He did have some back pain earlier that has resolved. As patient presents for arm pain with strong cardiac history EKG was performed. Patient was found to have a second- degree type II block on his EKG with a ventricular rate of 47. He does have a strong cardiac history and sees Dr. Harper. On exam patient does have pain with palpation to the dorsum of the right wrist with slight edema which patient states is abnormal for him. On exam he does have diminished capillary refill in the right hand. Radial pulses are weak but equal bilaterally. Furthermore, there are Doppler signals for radial pulses bilaterally, including right arm. Temperature in hands are equal. Patient is not having any paresthesias. Dr Rizo evaluated patient. It is felt the patient has a chronic vasculopathy. Patient has a sole kidney and recently had KAVITHA and it is felt that contrast would not be beneficial to patient at this time given this is likely chronic in nature. Patient will be admitted for cardiology consultation regarding Second degree type II block. Dr. Rizo spoke with RASHEL Prakash from cardiology at [address] Adam prior to that who does accept this admission. I did discuss CODE STATUS the patient, he requests full code - Lab Data Result diagrams: 12/06/20 06:58 12/06/20 06:58 Lab Results 12/06/20 12/06/20 12/06/20 Range/Units 06:58 06:58 06:58 WBC 7.6 (3.8-10.6) k/uL RBC 4.86 (4.30-5.90) m/uL Hgb 14.1 (13.0-17.5) gm/dL Hct 44.8 (39.0-53.0) % MCV 92.2 (80.0-100.0) fL MCH 29.1 (25.0-35.0) pg MCHC 31.5 (31.0-37.0) g/dL RDW 14.8 (11.5-15.5) % Plt Count 147 L (150-450) k/uL MPV 7.9 Neutrophils % 81 % Lymphocytes % 10 % Monocytes % 5 % Eosinophils % 2 % Basophils % 1 % Neutrophils # 6.1 (1.3-7.7) k/uL Lymphocytes # 0.8 L (1.0-4.8) k/uL Monocytes # 0.4 (0-1.0) k/uL Eosinophils # 0.2 (0-0.7) k/uL Basophils # 0.1 (0-0.2) k/uL PT (9.0-12.0) sec INR (<1.2) APTT (22.0-30.0) sec Sodium 139 (137-145) mmol/L Potassium 5.1 (3.5-5.1) mmol/L Chloride 105 (98-107) mmol/L Carbon Dioxide 27 (22-30) mmol/L Anion Gap 7 mmol/L BUN 23 H (9-20) mg/dL Creatinine 1.17 (0.66-1.25) mg/dL Est GFR (CKD-EPI)AfAm 70 (>60 ml/min/1.73 sqM) Est GFR (CKD-EPI)NonAf 61 (>60 ml/min/1.73 sqM) Glucose 128 H (74-99) mg/dL Plasma Lactic Acid Chauncey (0.7-2.0) mmol/L Calcium 9.4 (8.4-10.2) mg/dL Total Bilirubin 0.8 (0.2-1.3) mg/dL AST 30 (17-59) U/L ALT 22 (4-49) U/L Alkaline Phosphatase 108 (38-126) U/L Troponin I 0.032 (0.000-0.034) ng/mL Total Protein 7.4 (6.3-8.2) g/dL Albumin 4.4 (3.5-5.0) g/dL Lipase 51 (23-300) U/L 12/06/20 12/06/20 Range/Units 06:58 07:50 WBC (3.8-10.6) k/uL RBC (4.30-5.90) m/uL Hgb (13.0-17.5) gm/dL Hct (39.0-53.0) % MCV (80.0-100.0) fL MCH (25.0-35.0) pg MCHC (31.0-37.0) g/dL RDW (11.5-15.5) % Plt Count (150-450) k/uL MPV Neutrophils % % Lymphocytes % % Monocytes % % Eosinophils % % Basophils % % Neutrophils # (1.3-7.7) k/uL Lymphocytes # (1.0-4.8) k/uL Monocytes # (0-1.0) k/uL Eosinophils # (0-0.7) k/uL Basophils # (0-0.2) k/uL PT 9.5 (9.0-12.0) sec INR 0.9 (<1.2) APTT 22.1 (22.0-30.0) sec Sodium (137-145) mmol/L Potassium (3.5-5.1) mmol/L Chloride (98-107) mmol/L Carbon Dioxide (22-30) mmol/L Anion Gap mmol/L BUN (9-20) mg/dL Creatinine (0.66-1.25) mg/dL Est GFR (CKD-EPI)AfAm (>60 ml/min/1.73 sqM) Est GFR (CKD-EPI)NonAf (>60 ml/min/1.73 sqM) Glucose (74-99) mg/dL Plasma Lactic Acid Chauncey 1.8 (0.7-2.0) mmol/L Calcium (8.4-10.2) mg/dL Total Bilirubin (0.2-1.3) mg/dL AST (17-59) U/L ALT (4-49) U/L Alkaline Phosphatase (38-126) U/L Troponin I (0.000-0.034) ng/mL Total Protein (6.3-8.2) g/dL Albumin (3.5-5.0) g/dL Lipase (23-300) U/L Disposition Clinical Impression: Second degree type II atrioventricular block, Arm pain, right Disposition: ADMITTED IP TO THIS HOSP Is patient prescribed a controlled substance at d/c from ED?: No Time of Disposition: 08:01
[2020-12-06] MEDS ORDERED: HYDROmorphone 0.5 MG/0.5 ML SYRINGE IVP STA (06:55)
[2020-12-06 07:18] LABS: Basophils # (A) 0.1 k/uL (0-0.2); Basophils % (A) 1 %; Eosinophils # (A) 0.2 k/uL (0-0.7); Eosinophils % (A) 2 %; HCT 44.8 % (39.0-53.0); HGB 14.1 gm/dL (13.0-17.5); Lymphocytes # (A) 0.8 k/uL (1.0-4.8); Lymphocytes % (A) 10 %; MCH 29.1 pg (25.0-35.0); MCHC 31.5 g/dL (31.0-37.0); MCV 92.2 fL (80.0-100.0); Mean Platelet Volume 7.9; Monocytes # (A) 0.4 k/uL (0-1.0); Monocytes % (A) 5 %; Neutrophils # (A) 6.1 k/uL (1.3-7.7); Neutrophils % (A) 81 %; Platelet Count 147 k/uL (150-450); RBC 4.86 m/uL (4.30-5.90); RDW 14.8 % (11.5-15.5); WBC 7.6 k/uL (3.8-10.6)
[2020-12-06 07:25] LABS: Albumin 4.4 g/dL (3.5-5.0); Calcium 9.4 mg/dL (8.4-10.2); Total Bilirubin 0.8 mg/dL (0.2-1.3); Total Protein 7.4 g/dL (6.3-8.2)
[2020-12-06 07:27] LABS: Potassium 5.1 mmol/L (3.5-5.1)
[2020-12-06 07:39] LABS: INR 0.9 (<1.2); Partial Thromboplastin Time 22.1 sec (22.0-30.0); Prothrombin Time 9.5 sec (9.0-12.0)
--- NOTE | 2020-12-06 08:04 | XR ---
EXAMINATION TYPE: XR wrist complete RT DATE OF EXAM: 12/06/2020 CLINICAL HISTORY: Pain after fall injury. TECHNIQUE: Frontal, lateral and oblique images of the right wrist are obtained. 4 view scaphoid vie w is performed. COMPARISON: None FINDINGS: There is no acute fracture/dislocation evident in the right wrist. Radiocarpal joint space loss. Moderate to severe narrowing base of first metacarpal with moderate heterotopic ossification. Vascular calcification distal forearm is present. IMPRESSION: There is no acute fracture or dislocation in the right wrist.
[2020-12-06] MEDS ORDERED: NALOXONE 0.4 MG/ML 1 ML VIAL IV PRN (08:20)
[2020-12-06] MEDS: SODIUM CHLORIDE 0.9% 1,000 ML IV SCH ×2 (08:48→14:47)
[2020-12-06] MEDS ORDERED: GABAPENTIN 100 MG CAP PO PRN (12:55)
[2020-12-06] MEDS ORDERED: IPRATROPIUM-ALBUTEROL 3 ML NEB INHALATION PRN (12:55)
[2020-12-06] MEDS ORDERED: Magnesium Replacement Protocol 1 EACH MISC MISCELLANE PRN (12:58)
--- NOTE | 2020-12-06 12:59 | P.CRDCN ---
History of Present Illness History of present illness: HISTORY OF PRESENTING ILLNESS This is a pleasant 75-year-old male past medical history significant for coronary artery disease status post bypass grafting, diabetes mellitus, hypertension, dyslipidemia and myocardial infarction. He underwent bypass grafting in 2018 with a CHAHAL to LAD, SVG to OM and SVG to PDA with Dr. Hannah. He follows in the office with Dr. Harper. We have been asked to see in consultation for syncope and heart block. He presented to the hospital with symptoms of right arm and shoulder pain. He states yesterday he woke up to use the bathroom walking he became dizzy and lightheaded and fell striking the right side of his body and his dresser. Prior to falling he does recall feeling dizzy, mildly diaphoretic and slightly nauseated. He denies having symptoms of chest pain, palpitations or shortness of breath. Initial EKG on arrival revealed sinus b radycardia heart rate of 47 with second-degree AV block, right bundle branch block and left anterior fascicular block with a single PVC. Telemetry tracings reveal intermittent episodes of second-degree AV block. Resting heart rate in the 50s. Laboratory data reviewed, WBC 7.6, hemoglobin 14.1, platelets 147, sodium 139, potassium 5.1, creatinine 1.17, cardiac enzymes negative 2. In the past the patient was on metoprolol 25 mg twice a day however he is having episodes of bradycardia and this was discontinued a couple months ago. Current cardiac medications include aspirin 81 mg daily, atorvastatin 20 mg at bedtime, Imdur 15 mg daily and losartan 25 mg daily. Most recent echocardiogram obtained August 2020 reveals preserved LV systolic function with ejection fraction 55- 60%. REVIEW OF SYSTEMS At the time of my exam: CONSTITUTIONAL: Denies fever or chills. CARDIOVASCULAR: Denies chest pain, shortness of breath, orthopnea, PND or palpitations. RESPIRATORY: Denies cough. GASTROINTESTINAL: Denies abdominal pain, diarrhea, constipation, nausea or vomiting. MUSCULOSKELETAL: Complains of pain to the right arm and wrist. NEUROLOGIC: Denies numbness, tingling or weakness. ENDOCRINE: Denies fatigue, weight change, polydipsia or polyurina. GENITOURINARY: Denies burning, hematuria or urgency with micturation. HEMATOLOGIC: Denies history of anemia or bleeding. PHYSICAL EXAMINATION Blood pressure 170/72 heart rate 54 afebrile and maintaining oxygen saturation on nasal cannula. CONSTITUTIONAL: No apparent distress. HEENT: Head is normocephalic. Pupils are equal, round. Sclerae anicteric. Mucous membranes of the mouth are moist. No JVD. No carotid bruit. CHEST EXAMINATION: Lungs are clear to auscultation. No chest wall tenderness is noted on palpation or with deep breathing. HEART EXAMINATION: Regular rate and rhythm. S1, S2 heard. No murmurs, gallops or rub. ABDOMEN: Soft, nontender. Positive bowel sounds. Obese. EXTREMITIES: 2+ peripheral pulses, no lower extremity edema and no calf tenderness. NEUROLOGIC EXAMINATION: Patient is awake, alert and oriented x3. ASSESSMENT Syncope Trifascicular block, symptomatic Coronary artery disease status post bypass grafting 2018 Hypertension Dyslipidemia PLAN Check thyroid function. Hold any rate lowering medications. Continuous telemetry monitoring. Given trifascicular block causing syncope the patient will require permanent pacemaker implantation. I have discussed the risks, benefits and alternative therapies for the above-mentioned procedure and for both sedation/analgesia as well as necessary blood product administration, if indicated, as they pertain to this patient. The patient has indicated understanding and acceptance of the risks and procedures discussed. Questions have been answered appropriately and he is agreeable to move forward with the above-stated procedure. Further recommendations to follow based upon clinical course. Thank you kindly for this consultation. Nurse Practitioner note has been reviewed, I agree with a documented findings and plan of care. Patient was seen and examined. Past Medical History Past Medical History: Coronary Artery Disease (CAD), Cancer, COPD, Diabetes Mellitus, Hyperlipidemia, Hypertension, Myocardial Infarction ([place]), Prostate Disorder Additional Past Medical History / Comment(s): prostate cancer with radiation > 20 years ago, nstemi, wears a brief incont urine/stool Last Myocardial Infarction Date:: 2017 History of Any Multi-Drug Resistant Organisms: ESBL, MRSA Date of last positivie culture/infection: 01/07/19 ESBL; 10/27/18 MRSA MDRO Source:: Urine-ESBL; Back-MRSA Past Surgical History: Coronary Bypass/CABG Additional Past Surgical History / Comment(s): 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,prostate bx, triple bypass 2017, bronchoscopy, picc line pt stated since removed Past Anesthesia/Blood Transfusion Reactions: No Reported Reaction Past Psychological History: No Psychological Hx Reported Smoking Status: Former smoker Past Alcohol Use History: None Reported Past Drug Use History: None Reported - Past Family History Father Additional Family Medical History / Comment(s): old age Mother Family Medical History: Coronary Artery Disease (CAD), Diabetes Mellitus Additional Family Medical History / Comment(s): CABG Medications and Allergies Home Medications Medication Instructions Recorded Confirmed Type Aspirin [Louisa Aspirin EC] 81 mg PO DAILY 01/07/19 12/06/20 History Atorvastatin [Lipitor] 20 mg PO HS 01/07/19 12/06/20 History Cholecalciferol [Vitamin D3 (25 5,000 unit PO DAILY 01/07/19 12/06/20 History Mcg = 1000 Iu)] Finasteride [Proscar] 5 mg PO DAILY 01/07/19 12/06/20 History Sertraline HCl [Zoloft] 50 mg PO DAILY 02/05/19 12/06/20 History Tamsulosin [Flomax] 0.4 mg PO HS 07/06/19 12/06/20 History Insulin Glargine,Hum.rec.anlog 25 unit SQ HS 02/06/20 12/06/20 History [Lantus Solostar] Losartan Potassium [Cozaar] 25 mg PO HS 02/06/20 12/06/20 History Acetaminophen [Tylenol Arthritis] 650 mg PO HS 07/27/20 12/06/20 History Ferrous Sulfate [Feosol] 325 mg PO DAILY 07/27/20 12/06/20 History Ipratropium-Albuterol Nebulize 3 ml INHALATION RT-QID PRN 07/27/20 12/06/20 History [Duoneb 0.5 mg-3 mg/3 ml Soln] Nitroglycerin Sl Tabs [Nitrostat] 0.4 mg SUBLINGUAL Q5M PRN #100 tab 07/29/20 12/06/20 Rx Glimepiride [Amaryl] 1 mg PO DAILY 08/24/20 12/06/20 History Isosorbide Mononitrate [Isosorbide 15 mg PO DAILY@1200 08/24/20 12/06/20 History Mononitrate ER] Gabapentin [Neurontin] 100 mg PO HS PRN 12/06/20 12/06/20 History Allergies Allergy/AdvReac Type Severity Reaction Status Date / Time No Known Allergies Allergy Verified 12/06/20 07:45 Physical Exam Vitals: Vital Signs Temp Pulse Resp BP BP BP Pulse Ox 12/06/20 11:00 98 F 54 L 22 170/72 99 12/06/20 10:00 98 F 52 L 18 162/77 100 12/06/20 09:20 54 L 20 123/77 100 12/06/20 08:20 53 L 20 169/72 99 12/06/20 07:42 57 L 18 180/82 99 12/06/20 07:03 18 152/79 172/64 94 L 12/06/20 06:25 98.4 F 67 20 197/91 97 Intake and Output 12/05/20 12/06/20 12/06/20 22:59 06:59 14:59 Other: Weight 97.976 kg Results 12/06/20 06:58 12/06/20 06:58 Cardiac Enzymes 12/06/20 12/06/20 12/06/20 Range/Units 06:58 06:58 10:01 AST 30 (17-59) U/L Troponin I 0.032 0.028 (0.000-0.034) ng/mL Coagulation 12/06/20 Range/Units 06:58 PT 9.5 (9.0-12.0) sec APTT 22.1 (22.0-30.0) sec CBC 12/06/20 Range/Units 06:58 WBC 7.6 (3.8-10.6) k/uL RBC 4.86 (4.30-5.90) m/uL Hgb 14.1 (13.0-17.5) gm/dL Hct 44.8 (39.0-53.0) % Plt Count 147 L (150-450) k/uL Comprehensive Metabolic Panel 12/06/20 Range/Units 06:58 Sodium 139 (137-145) mmol/L Potassium 5.1 (3.5-5.1) mmol/L Chloride 105 (98-107) mmol/L Carbon Dioxide 27 (22-30) mmol/L BUN 23 H (9-20) mg/dL Creatinine 1.17 (0.66-1.25) mg/dL Glucose 128 H (74-99) mg/dL Calcium 9.4 (8.4-10.2) mg/dL AST 30 (17-59) U/L ALT 22 (4-49) U/L Alkaline Phosphatase 108 (38-126) U/L Total Protein 7.4 (6.3-8.2) g/dL Albumin 4.4 (3.5-5.0) g/dL Current Medications Generic Name Dose Route Start Last Admin Trade Name Freq PRN Reason Stop Dose Admin Atorvastatin Calcium 20 mg 12/06/20 21:00 Atorvastatin 20 Mg Tab PO HS ALEXEY Sodium Chloride 1,000 mls @ 20 mls/hr 12/06/20 08:30 12/06/20 08:48 Saline 0.9% IV 20 mls/hr .Q24H ALEXEY Administration Losartan Potassium 25 mg 12/06/20 21:00 Losartan 25 Mg Tab PO HS ALEXEY Naloxone HCl 0.2 mg 12/06/20 08:20 Naloxone 0.4 Mg/Ml 1 Ml Vial IV Q2M PRN Opioid Reversal Non-Formulary Medication 81 mg 12/06/20 12:00 Aspirin [Louisa Aspirin Ec] PO DAILY ALEXEY Intake and Output 12/05/20 12/06/20 12/06/20 22:59 06:59 14:59 Other: Weight 97.976 kg 12/06/20 06:58 12/06/20 06:58
[2020-12-06] MEDS: PANTOPRAZOLE 40 MG/10 ML VIAL IVP SCH (14:47)
[2020-12-06] MEDS: FINASTERIDE 5 MG TAB PO SCH (14:47)
[2020-12-06] MEDS: ASPIRIN 81 MG PO SCH (14:47)
[2020-12-06] MEDS: ACETAMINOPHEN TAB 325 MG TAB PO PRN ×2 (15:06→21:09)
[2020-12-06] MEDS: lisinopriL 10 MG TAB PO SCH (15:45)
[2020-12-06 16:26] LABS: Appearance,Urine Cloudy (Clear); Bacteria,Urine Many /hpf; Bilirubin,Urine Negative (Negative); Blood,Urine Small (Negative); Color,Urine Light Yellow; Glucose,Urine (UA) Negative (Negative); Hyaline Casts,Urine 1 /lpf (0-2); Ketones,Urine Negative (Negative); Leukocyte Esterase,Urine Large (Negative); Nitrite,Urine Negative (Negative); Protein,Urine 2+ (Negative); RBC,Urine 1 /hpf (0-5); Specific Gravity,Urine 1.013 (1.001-1.035); Urobilinogen,Urine <2.0 mg/dL (<2.0); WBC,Urine >182 /hpf (0-5)
[2020-12-06 17:13] LABS: Glucose,Whole Blood 93 mg/dL (75-99)
[2020-12-06] MEDS: INSULIN ASPART (NovoLOG) 100 UNIT/ML VIAL SQ SCH ×2 (17:14→21:02)
[2020-12-06 20:27] LABS: Glucose,Whole Blood 191 mg/dL (75-99)
[2020-12-06] MEDS: ATORVASTATIN 20 MG TAB PO SCH (21:00)
[2020-12-06] MEDS ORDERED: LOSARTAN 25 MG TAB PO SCH (21:00)
[2020-12-06] MEDS: INSULIN DETEMIR (LEVEMIR) 100 UNIT/ML SYR SQ SCH (21:01)
[2020-12-06] MEDS: TAMSULOSIN 0.4 MG CAP.ER.24H PO SCH (21:01)
[2020-12-07 06:08] LABS: Glucose,Whole Blood 98 mg/dL (75-99)
[2020-12-07] MEDS: ACETAMINOPHEN TAB 325 MG TAB PO PRN ×2 (06:16→23:14)
[2020-12-07] MEDS: LACTATED RINGERS 1,000 ML IV SCH (06:17)
[2020-12-07] MEDS: INSULIN ASPART (NovoLOG) 100 UNIT/ML VIAL SQ SCH ×4 (06:18→20:49)
[2020-12-07] MEDS ORDERED: SODIUM CHLORIDE 0.9% IRRIGATION PRN (07:00)
[2020-12-07] MEDS ORDERED: CEFAZOLIN IRRIGATION PRN (07:00)
[2020-12-07] MEDS ORDERED: MORPHINE SULFATE 2 MG/ML SYRINGE IVP STA (08:03)
[2020-12-07] MEDS ORDERED: SODIUM CHLORIDE 0.9% 1,000 ML IV SCH (08:15)
[2020-12-07] MEDS: SODIUM CHLORIDE 0.9% 1,000 ML IV SCH ×2 (09:35→09:43)
[2020-12-07] MEDS: PANTOPRAZOLE 40 MG/10 ML VIAL IVP SCH (09:40)
[2020-12-07] MEDS: FINASTERIDE 5 MG TAB PO SCH (09:41)
[2020-12-07] MEDS: lisinopriL 10 MG TAB PO SCH (09:41)
[2020-12-07] MEDS: ASPIRIN 81 MG PO SCH (09:41)
[2020-12-07 11:54] LABS: Glucose,Whole Blood 146 mg/dL (75-99)
[2020-12-07 17:08] LABS: Glucose,Whole Blood 108 mg/dL (75-99)
[2020-12-07 20:09] LABS: Glucose,Whole Blood 150 mg/dL (75-99)
--- NOTE | 2020-12-07 20:36 | P.HPIM ---
History of Present Illness H&P Date: 12/07/20 Chief Complaint: weakness, fatigue Cristo Perez is a 75-year-old male with past medical history significant for CAD s/p CABG, hx CA, DM, HTN, HLD who presented to the hospital with dizziness, syncope as well as RUE pain. He states yesterday he woke up to use the bathroom walking he became dizzy and lightheaded and fell striking the right side of his body and his dresser. Prior to falling he does recall feeling dizzy, mildly diaphoretic and slightly nauseated. He denies having symptoms of chest pain, palpitations or shortness of breath. Initial EKG on arrival revealed sinus bradycardia heart rate of 47 with second-degree AV block, right bundle branch block and left anterior fascicular block with a single PVC. Resting heart rate in the 50s. Labs reviewed and overall unremarkable, trop negative 2. Review of Systems All systems: negative Constitutional: Reports malaise, Reports weakness, Denies chills, Denies fever Eyes: denies blurred vision, denies pain Ears, nose, mouth and throat: Denies headache, Denies sore throat Cardiovascular: Denies chest pain, Denies shortness of breath Respiratory: Denies cough Gastrointestinal: Denies abdominal pain, Denies diarrhea, Denies nausea, Denies vomiting Musculoskeletal: Denies myalgias Integumentary: Denies pruritus, Denies rash Neurological: Reports as per HPI, Reports balance difficulties, Reports syncope, Denies numbness, Denies weakness Psychiatric: Denies anxiety, Denies depression Endocrine: Denies fatigue, Denies weight change Past Medical History Past Medical History: Coronary Artery Disease (CAD), Cancer, COPD, Diabetes Mellitus, Hyperlipidemia, Hypertension, Myocardial Infarction (CA), Prostate Disorder Additional Past Medical History / Comment(s): prostate cancer with radiation > 20 years ago, nstemi, wears a brief incont urine/stool Last Myocardial Infarction Date:: 2017 History of Any Multi-Drug Resistant Organisms: ESBL, MRSA Date of last positivie culture/infection: 01/07/19 ESBL; 10/27/18 MRSA MDRO Source:: Urine-ESBL; Back-MRSA Past Surgical History: Coronary Bypass/CABG Additional Past Surgical History / Comment(s): 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,prostate bx, triple bypass 2017, bronchoscopy, picc line pt stated since removed Past Anesthesia/Blood Transfusion Reactions: No Reported Reaction Past Psychological History: No Psychological Hx Reported Smoking Status: Former smoker Past Alcohol Use History: None Reported Past Drug Use History: None Reported - Past Family History Father Additional Family Medical History / Comment(s): old age Mother Family Medical History: Coronary Artery Disease (CAD), Diabetes Mellitus Additional Family Medical History / Comment(s): CABG Medications and Allergies Home Medications Medication Instructions Recorded Confirmed Type Aspirin [Desha Aspirin EC] 81 mg PO DAILY 01/07/19 12/06/20 History Atorvastatin [Lipitor] 20 mg PO HS 01/07/19 12/06/20 History Cholecalciferol [Vitamin D3 (25 5,000 unit PO DAILY 01/07/19 12/06/20 History Mcg = 1000 Iu)] Finasteride [Proscar] 5 mg PO DAILY 01/07/19 12/06/20 History Sertraline HCl [Zoloft] 50 mg PO DAILY 02/05/19 12/06/20 History Tamsulosin [Flomax] 0.4 mg PO HS 07/06/19 12/06/20 History Insulin Glargine,Hum.rec.anlog 25 unit SQ HS 02/06/20 12/06/20 History [Lantus Solostar] Losartan Potassium [Cozaar] 25 mg PO HS 02/06/20 12/06/20 History Acetaminophen [Tylenol Arthritis] 650 mg PO HS 07/27/20 12/06/20 History Ferrous Sulfate [Feosol] 325 mg PO DAILY 07/27/20 12/06/20 History Ipratropium-Albuterol Nebulize 3 ml INHALATION RT-QID PRN 07/27/20 12/06/20 History [Duoneb 0.5 mg-3 mg/3 ml Soln] Nitroglycerin Sl Tabs [Nitrostat] 0.4 mg SUBLINGUAL Q5M PRN #100 tab 07/29/20 12/06/20 Rx Glimepiride [Amaryl] 1 mg PO DAILY 08/24/20 12/06/20 History Isosorbide Mononitrate [Isosorbide 15 mg PO DAILY@1200 08/24/20 12/06/20 History Mononitrate ER] Gabapentin [Neurontin] 100 mg PO HS PRN 12/06/20 12/06/20 History Allergies Allergy/AdvReac Type Severity Reaction Status Date / Time No Known Allergies Allergy Verified 12/06/20 07:45 Physical Exam Vitals: Vital Signs Temp Pulse Resp BP Pulse Ox 12/07/20 19:45 98.2 F 53 L 16 170/72 95 12/07/20 16:00 97.5 F L 58 L 19 177/80 98 12/07/20 14:00 53 L 18 12/07/20 11:45 97.8 F 53 L 18 172/72 97 12/07/20 08:00 97.9 F 35 L 19 167/69 97 12/07/20 04:00 97.6 F 45 L 16 128/67 95 12/07/20 00:00 98.1 F 54 L 16 123/58 95 12/06/20 20:58 98.1 F 60 18 181/78 95 Intake and Output 12/07/20 12/07/20 12/07/20 06:59 14:59 22:59 Intake Total 660 240 Output Total 200 400 Balance -200 660 -160 Intake: Intake, IV Titration 300 Amount ceFAZolin 2 gm In Sodium 300 Chloride 0.9% 50 ml @ 100 mls/hr IVPB ONCE PRN Rx# :[id number] Oral 360 240 Output: Urine 200 400 Other: Voiding Method Urinal Bedside Commode Urinal # Voids 1 4 # Bowel Movements 1 Weight 99.8 kg General: well nourished, well developed, NAD. Vitals reviewed Eyes: PERRL, EOMI, conjunctiva normal HENT: normocephalic, mucus membranes moist Neck: supple, no JVD Lungs: normal respiratory effort, no wheezes or rales CV: Bradycardic normal rhythm, no murmur. Peripheral pulses 2+ Abdomen: soft, nondistended, no organomegaly Lymph: no cervical or axillary LAD Skin: warm and dry. Neuro: A&Ox3, normal mood and affect Results CBC & Chem 7: 12/06/20 06:58 12/06/20 06:58 Labs: Abnormal Lab Results - Last 24 Hours (Table) 12/07/20 12/07/20 12/07/20 Range/Units 11:46 16:53 20:08 POC Glucose (mg/dL) 146 H 108 H 150 H (75-99) mg/dL Microbiology - Last 24 Hours (Table) 12/06/20 15:19 Urine Culture - Preliminary Urine,Clean Catch Thrombosis Risk Factor Assmnt - Choose All That Apply Each Factor Represents 1 point: Abnormal pulmonary function (COPD) Each Risk Factor Represents 3 Points: Age 75 years or older Thrombosis Risk Factor Assessment Total Risk Factor Score: 4 Thrombosis Risk Factor Assessment Level: Moderate Risk Assessment and Plan (1) Second degree type II atrioventricular block Current Visit: Yes Status: Acute Code(s): I44.1 - ATRIOVENTRICULAR BLOCK, SECOND DEGREE SNOMED Code(s): 33247333 (2) CHF (congestive heart failure) Current Visit: No Status: Acute Code(s): I50.9 - HEART FAILURE, UNSPECIFIED SNOMED Code(s): 00211162 (3) Hyperlipidemia Current Visit: No Status: Chronic Code(s): E78.5 - HYPERLIPIDEMIA, UNSPECIFIED SNOMED Code(s): 05812490 (4) Hypertension Current Visit: No Status: Chronic Code(s): I10 - ESSENTIAL (PRIMARY) HYPERTENSION SNOMED Code(s): 11594139 (5) Insulin dependent diabetes mellitus Current Visit: No Status: Chronic Code(s): E11.9 - TYPE 2 DIABETES MELLITUS WITHOUT COMPLICATIONS; Z79.4 - FPC (CURRENT) USE OF INSULIN SNOMED Code(s): 62110245 (6) Syncope Current Visit: No Status: Acute Code(s): R55 - SYNCOPE AND COLLAPSE SNOMED Code(s): 564631921 (7) History of prostate cancer Current Visit: No Status: Chronic Code(s): Z85.46 - PERSONAL HISTORY OF MALIGNANT NEOPLASM OF PROSTATE SNOMED Code(s): 357491915 Plan: 1. Type II heart block, syncope. Cardiology consulted, plan for pacemaker ins ertion. Telemetry 2. T2DM. Continue levemir 25 units qhs and sliding scale insulin 3. CAD. Continue ASA and lipitor, hold imdur 4. Hx prostate cancer. continue finasteride and flomax
[2020-12-07] MEDS: ATORVASTATIN 20 MG TAB PO SCH (20:48)
[2020-12-07] MEDS: LOSARTAN 25 MG TAB PO SCH (20:48)
[2020-12-07] MEDS: TAMSULOSIN 0.4 MG CAP.ER.24H PO SCH (20:48)
[2020-12-07] MEDS: INSULIN DETEMIR (LEVEMIR) 100 UNIT/ML SYR SQ SCH (20:48)
[2020-12-08 06:21] LABS: Glucose,Whole Blood 148 mg/dL (75-99)
[2020-12-08] MEDS: SODIUM CHLORIDE 0.9% 1,000 ML IV SCH ×2 (06:33→08:37)
[2020-12-08] MEDS: LACTATED RINGERS 1,000 ML IV SCH (06:38)
[2020-12-08] MEDS: INSULIN ASPART (NovoLOG) 100 UNIT/ML VIAL SQ SCH ×4 (06:38→20:23)
[2020-12-08] MEDS ORDERED: ceFAZolin 1,000 MG in SODIUM CHLORIDE 0.9% IRRIGATIO 250 ML IRRIGATION ONE (07:40)
[2020-12-08] MEDS: PANTOPRAZOLE 40 MG/10 ML VIAL IVP SCH (08:43)
[2020-12-08] MEDS ORDERED: MIDAZOLAM 2 MG/2 ML VIAL IVP ONE (10:02)
[2020-12-08] MEDS ORDERED: LIDOCAINE 1% INJ 10MG/ML (20 ML MDV) ONE (10:16)
[2020-12-08] MEDS ORDERED: SODIUM CHLORIDE 0.9% 1,000 ML IV ONE (10:45)
[2020-12-08] MEDS ORDERED: IOPAMIDOL-370 50ML BTL INJ ONE (10:48)
[2020-12-08] MEDS ORDERED: fentaNYL (PF) 50 MCG/ML 2 ML AMP ONE (10:55)
[2020-12-08] MEDS ORDERED: fentaNYL (PF) 50 MCG/ML 2 ML AMP IVP ONE (11:02)
--- NOTE | 2020-12-08 11:08 | P.PN ---
Subjective HISTORY OF PRESENTING ILLNESS This is a pleasant 75-year-old male past medical history significant for coronary artery disease status post bypass grafting, diabetes mellitus, hypertension, dyslipidemia and myocardial infarction. He underwent bypass grafting in 2018 with a CHAHAL to LAD, SVG to OM and SVG to PDA with Dr. Hannah. He follows in the office with Dr. Harper. Patient was seen and examined resting comfortably lying flat in bed in no acute distress. He denies symptoms of chest pain or shortness of breath. He has had no further symptoms of dizziness or syncope since arriving at the hospital. Telemetry tracings reviewed indicate 2- 1 AV block. Blood pressure 128/67 heart rate ranging between 45 and 60. PHYSICAL EXAMINATION CONSTITUTIONAL: No apparent distress. HEENT: Head is normocephalic. Pupils are equal, round. Sclerae anicteric. Mucous membranes of the mouth are moist. No JVD. No carotid bruit. CHEST EXAMINATION: Lungs are clear to auscultation. No chest wall tenderness is noted on palpation or with deep breathing. HEART EXAMINATION: Regular rate and rhythm. S1, S2 heard. No murmurs, gallops or rub. EXTREMITIES: 2+ peripheral pulses, no lower extremity edema and no calf tenderness. ASSESSMENT Syncope Trifascicular block, symptomatic Coronary artery disease status post bypass grafting 2018 Hypertension Dyslipidemia PLAN Permanent pacemaker insertion scheduled for tomorrow with Dr. Dr. Tena. The patient will be nothing by mouth after midnight tonight. Nurse Practitioner note has been reviewed, I agree with a documented findings and plan of care. Patient was seen and examined. Objective - Vital Signs Vital signs: Vital Signs Temp 98.1 F 12/08/20 08:00 Pulse 97 12/08/20 10:02 Resp 19 12/08/20 10:02 BP 173/74 12/08/20 10:02 Pulse Ox 97 12/08/20 10:02 Intake & Output 12/07/20 12/08/20 12/08/20 18:59 06:59 18:59 Intake Total 900 Output Total 400 500 100 Balance 500 -500 -100 Weight 99.1 kg Intake: Intake, IV Titration 300 Amount ceFAZolin 2 gm In Sodium 300 Chloride 0.9% 50 ml @ 100 mls/hr IVPB ONCE PRN Rx# :[id number] Oral 600 Output: Urine 400 500 100 Other: Voiding Method Bedside Commode Bedside Commode Bedside Commode Urinal Urinal Urinal # Voids 4 1 # Bowel Movements 1 - Labs CBC & Chem 7: 12/06/20 06:58 12/06/20 06:58 Labs: Abnormal Lab Results - Last 24 Hours (Table) 12/07/20 12/07/20 12/07/20 Range/Units 11:46 16:53 20:08 POC Glucose (mg/dL) 146 H 108 H 150 H (75-99) mg/dL 12/08/20 Range/Units 06:19 POC Glucose (mg/dL) 148 H (75-99) mg/dL Microbiology - Last 24 Hours (Table) 12/06/20 15:19 Urine Culture - Preliminary Urine,Clean Catch Gram Neg Bacilli
[2020-12-08] MEDS ORDERED: LIDOCAINE 1% INJ 10MG/ML (20 ML MDV) SQ ONE ×2 (11:11→11:20)
--- NOTE | 2020-12-08 11:15 | PN ---
PROGRESS NOTE Mr. Perez is a 75-year-old male with a known history of coronary artery disease who presented with syncopal episode, was found to have second-degree AV block with 2:1 conduction with left axis deviation and right bundle branch block. He is scheduled to undergo permanent pacemaker implantation today. He is feeling well this morning. He denies any symptoms of chest pain. He denies any syncope since his admission. He has some dizziness that has been stable now. He denies any nausea. No cough or fever. The procedure will be done by Dr. Tena. He continued to be on aspirin once a day, Lipitor 20 mg daily, losartan 50 mg twice a day. PHYSICAL EXAMINATION: Blood pressure 145/60 with the heart rate in the 40s. LUNGS: Clear. HEART: Regular rate and rhythm. S1, S2. No S3 with systolic murmur. No diastolic murmur. ABDOMEN: Soft, nontender. EXTREMITIES: No edema. IMPRESSION: 1. Syncopal episode with trifascicular block with second-degree AV block with 2:1 conduction, the patient is scheduled to undergo permanent pacemaker implantation today. 2. Status post coronary artery bypass grafting with no evidence for acute coronary artery syndrome. 3. Hyperlipidemia. 4. Hypertension. 5. Diabetes mellitus. RECOMMENDATION: Patient will proceed with the permanent pacemaker implantation today. If he is stable, I would expect he should be able to be discharged home in about 24 hours after. SIERRA / ROXANNN: [id number] /
--- NOTE | 2020-12-08 12:03 | P.PN ---
Subjective Progress Note Date: 12/08/20 Cristo Perez is a 75-year-old male with past medical history significant for CAD s/p CABG, hx [place], DM, HTN, HLD who presented to the hospital with dizziness, syncope as well as RUE pain. He states yesterday he woke up to use the bathroom walking he became dizzy and lightheaded and fell striking the right side of his body and his dresser. Prior to falling he does recall feeling dizzy, mildly diaphoretic and slightly nauseated. He denies having symptoms of chest pain, palpitations or shortness of breath. Initial EKG on arrival revealed sinus bradycardia heart rate of 47 with second-degree AV block, right bundle branch block and left anterior fascicular block with a single PVC. Resting heart rate in the 50s. Labs reviewed and overall unremarkable, trop negative 2. 12/08/2020 NPO, scheduled for pacemaker insertion today. Telemetry sinus bradycardia with second-degree AV block. Currently denies any lightheadedness dizziness or focal deficits. Denies chest pain, palpitations or shortness of breath. Objective - Vital Signs Vital signs: Vital Signs Temp 98.1 F 12/08/20 08:00 Pulse 97 12/08/20 10:02 Resp 19 12/08/20 10:02 BP 173/74 12/08/20 10:02 Pulse Ox 97 12/08/20 10:02 Intake & Output 12/07/20 12/08/20 12/08/20 18:59 06:59 18:59 Intake Total 900 100 Output Total 400 500 100 Balance 500 -500 0 Weight 99.1 kg Intake: IV 100 Intake, IV Titration 300 Amount ceFAZolin 2 gm In Sodium 300 Chloride 0.9% 50 ml @ 100 mls/hr IVPB ONCE PRN Rx# :[id number] Oral 600 Output: Urine 400 500 100 Other: Voiding Method Bedside Commode Bedside Commode Bedside Commode Urinal Urinal Urinal # Voids 4 1 # Bowel Movements 1 - Exam General: Sitting up at side of bed, NAD. Vitals reviewed Eyes: PERRL, EOMI, conjunctiva normal HENT: normocephalic, mucus membranes dry. Neck: supple, no JVD Lungs: normal respiratory effort, no wheezes or rales CV: Bradycardic normal rhythm, no murmur. Peripheral pulses 2+ Abdomen: soft, nondistended, no organomegaly, positive bowel sounds Skin: warm and dry. Neuro: A&Ox3, normal mood and affect - Labs CBC & Chem 7: 12/06/20 06:58 12/06/20 06:58 Labs: Abnormal Lab Results - Last 24 Hours (Table) 12/07/20 12/07/20 12/08/20 Range/Units 16:53 20:08 06:19 POC Glucose (mg/dL) 108 H 150 H 148 H (75-99) mg/dL Microbiology - Last 24 Hours (Table) 12/06/20 15:19 Urine Culture - Preliminary Urine,Clean Catch Gram Neg Bacilli Assessment and Plan Assessment: (1) Second degree type II atrioventricular block Current Visit: Yes Status: Acute Code(s): I44.1 - ATRIOVENTRICULAR BLOCK, SECOND DEGREE SNOMED Code(s): 25477676 (2) CHF (congestive heart failure) Current Visit: No Status: Acute Code(s): I50.9 - HEART FAILURE, UNSPECIFIED SNOMED Code(s): 30357226 (3) Hyperlipidemia Current Visit: No Status: Chronic Code(s): E78.5 - HYPERLIPIDEMIA, UNSPECIFIED SNOMED Code(s): 57483793 (4) Hypertension Current Visit: No Status: Chronic Code(s): I10 - ESSENTIAL (PRIMARY) HYPERTENSION SNOMED Code(s): 87856916 (5) Insulin dependent diabetes mellitus Current Visit: No Status: Chronic Code(s): E11.9 - TYPE 2 DIABETES MELLITUS WITHOUT COMPLICATIONS; Z79.4 - DRIVER (CURRENT) USE OF INSULIN SNOMED Code(s): 28777924 (6) Syncope Current Visit: No Status: Acute Code(s): R55 - SYNCOPE AND COLLAPSE SNOMED Code(s): 300958556 (7) History of prostate cancer Current Visit: No Status: Chronic Code(s): Z85.46 - PERSONAL HISTORY OF MALIGNANT NEOPLASM OF PROSTATE SNOMED Code(s): 730351064 (8) diabetes mellitus type 2 Plan: Continue on current medication regime ,monitoring and symptomatic treatment. Pacemaker insertion pending. Follow closely with cardiology. Discharge planning in progress for tomorrow. The impression and plan of care has been dictated as directed. : I performed a history and examination of this patient, discussed the same with the dictator. I agree with the dictator's note ,documented as a scribe. Any additional findings or plans will be noted.
--- NOTE | 2020-12-08 12:40 | P.PCN ---
Date of Procedure: 12/08/20 Preoperative Diagnosis: Secondary to AV block, syncope and right bundle-branch block and left axis deviation Postoperative Diagnosis: The same Procedure(s) Performed: Temporary pacemaker insertion followed by dual-chamber permanent pacemaker insertion Description of Procedure: HISTORY: This is a 75-year-old gentleman with history of hypertension was admitted to the hospital with episode of syncope and evidence of second degree AV block and bifascicular block. Patient is advised to have permanent pacemaker. Patient is also advised temporary pacemaker prior to insertion of permanent pacemaker. CONSENT:I have discussed the risks, benefits and alternative therapies for the above-mentioned procedure and for both sedation/analgesia as well as necessary blood product administration, if indicated, as they pertain to this patient. The patient has indicated understanding and acceptance of the risks and procedures discussed. PROCEDURE: Patient was brought to the lab in a fasting state. Patient was prepped and draped in the usual fashion. Patient was given IV sedation with fentanyl and Versed. The skin below the left clavicle was infiltrated with lidocaine. An incision was made parallel to deltopectoral groove was deepened until the pectoral fascia was exposed. A pocket was created by blunt dissection and cautery. Axillary venography was performed to delineate the course of the axillary vein. 2 sticks were performed into extrathoracic portion of the axillary vein and 2 sheaths were advanced over the guidewires and left in subclavian vein. Conscious Sedation: Versed 0.5mg Fentanyl 50 g Duration 79minutes . Temporary pacemaker insertion: Through the existing subclavian sheath, a temporary balloontipped pacemaker wire was advanced and was placed in the right ventricle. Satisfactory threshold is obtained. Pacemaker is set at a rate of 40. Permanent pacemaker insertion: LEADS: ATRIAL: This is manufactured by [employer] The model number is 2088TC-52 cm and the serial number is [id number] VENTRICULAR: This is manufactured by [employer]. Model number is 2088TC-58 cm and the serial number is [id number] THE DEVICE: This is manufactured by [employer]. The model number is 2272 and the serial number is [id number] The ventricular lead is maneuvered l with help of a straight and curved stylets into the left ventricle apical region. Satisfactory position was obtained and threshold measurements were made. The atrial lead was then maneuvered into the right atrial appendage. And thresholds were obtained. THRESHOLDS: ATRIUM: The minimum patient threshold was 0.5 at pulse width of 0.4. P-wave: 1 mV and impedance is 481 ohms VENTRICLE: . The minimum patient threshold is 0.5 at pulse width of 0.4. The R-wave is 5 and lead impedance is 760 . The leads and pulse generator remained in the pocket after it was washed with antibiotics. Pocket was closed in the usual fashion. The fascia was closed with 2-0 Prolene ,the subcutaneous tissue was closed with 3-0 Prolene and the skin was closed with 4-0 Prolene. PROGRAMMING: MODE: DDDR RATE: 60 to 120 OUTPUT: Atrium 3.5 Ventricle 3.5 FINAL IMPRESSION: #1. Axillary venography #2. Temporary pacemaker insertion #3. Dual-chamber permanent pacemaker insertion. COMPLICATIONS: None PLAN: Continue to monitor him on telemetry unit. Prophylactic antibiotics. Ingrid st x-ray in the morning. Possible discharge in 24-48 hours
[2020-12-08 13:06] LABS: Glucose,Whole Blood 121 mg/dL (75-99)
[2020-12-08] MEDS: ASPIRIN 81 MG PO SCH (13:18)
[2020-12-08] MEDS: FINASTERIDE 5 MG TAB PO SCH (13:18)
[2020-12-08] MEDS: LOSARTAN 25 MG TAB PO SCH ×2 (13:18→20:23)
--- NOTE | 2020-12-08 13:50 | CDI ---
Documentation Clarification Form Date: 12/08/2020 01:34:11 PM From: Irasema Wilson RN CCDS Admit Date: 12/06/2020 08:23:00 AM Patient Name: Cristo Perez Visit Number: [id number] Discharge Date: ATTENTION: The Clinical Documentation Specialists (CDI) and [facility] Coding Staff appreciate your assistance in clarifying documentation. Please respond to the clarification below the line at the bottom and electronically sign. The CDI & [facility] Coding staff will review the response and follow-up if needed. Please note: Queries are made part of the Legal Health Record. If you have any questions, please contact the author of this message via ITS. Dr. Nhan Adam CHF is documented in the H&P 12/07 and Internal Medicine Progress Note 12/08 History/Risk Factors: 75-year-old male presents to the ED for wrist pain after a fall from standing. Medical History: CAD, Cancer, COPD, DM, HLD, [place] and Prostate Cancer Clinical Indicators: VS/Pulse OX 12/06: B/P 197/91; HR 67; Temp 98.4 F Oral; RR 20; SpO2 97% ra EKG 12/06/20: Sinus with 2:1 AV Block 2nd Degree Echocardiogram Results 08/25/20: Left ventricular size is normal. Moderate concentric left ventricular hypertrophy. Overall left ventricular systolic function is normal with, an EF between 55-60% The left ventricle is mild to moderately enlarged. Treatment: 12/06 Lisinopril po daily d/c 12/07; 12/06 Cozaar po hs joaquin 12/07 changed to po bid joaquin In your professional opinion, can you please clarify the acuity and type of CHF if known? Heart Failure Ruled Out Chronic Diastolic Heart Failure Unable to Determine Other, please specify (Last Revision: March 2018) Heart Failure Ruled Out MTDD
[2020-12-08 16:28] LABS: Glucose,Whole Blood 131 mg/dL (75-99)
[2020-12-08] MEDS: ACETAMINOPHEN TAB 325 MG TAB PO PRN ×2 (18:14→22:51)
[2020-12-08 20:03] LABS: Glucose,Whole Blood 197 mg/dL (75-99)
[2020-12-08] MEDS: TAMSULOSIN 0.4 MG CAP.ER.24H PO SCH (20:23)
[2020-12-08] MEDS: ATORVASTATIN 20 MG TAB PO SCH (20:23)
[2020-12-08] MEDS: INSULIN DETEMIR (LEVEMIR) 100 UNIT/ML SYR SQ SCH (20:24)
[2020-12-09] MEDS: SODIUM CHLORIDE 0.9% 1,000 ML IV SCH ×4 (01:51→21:20)
[2020-12-09] MEDS: LACTATED RINGERS 1,000 ML IV SCH (06:02)
[2020-12-09] MEDS: INSULIN ASPART (NovoLOG) 100 UNIT/ML VIAL SQ SCH ×4 (06:02→20:51)
[2020-12-09 06:17] LABS: Glucose,Whole Blood 123 mg/dL (75-99)
--- NOTE | 2020-12-09 07:39 | XR ---
EXAMINATION TYPE: XR chest 2V DATE OF EXAM: 12/09/2020 COMPARISON: 08/24/2020 TECHNIQUE: PA and lateral views submitted. HISTORY: Lead placement FINDINGS: A left-sided abdominal lead pacemaker seen with approximately overlying the region of the distal lead overlying right ventricle. No sizable are intact. Persistent subsegmental consolidation and elevatio n the right hemidiaphragm. Heart size unchanged with no overt failure. No pneumothorax. Hypertrophic and degenerative change of the spine. IMPRESSION: 1. Pacemaker placement with no sizable pneumothorax. 2. Stable elevated right hemidiaphragm with basilar consolidation.
[2020-12-09] MEDS: PANTOPRAZOLE 40 MG/10 ML VIAL IVP SCH (08:22)
[2020-12-09] MEDS: LOSARTAN 25 MG TAB PO SCH ×2 (08:22→21:19)
[2020-12-09] MEDS: FINASTERIDE 5 MG TAB PO SCH (08:22)
[2020-12-09] MEDS: ASPIRIN 81 MG PO SCH (08:22)
[2020-12-09] MEDS: ACETAMINOPHEN TAB 325 MG TAB PO PRN ×2 (08:28→21:19)
--- NOTE | 2020-12-09 10:37 | P.PN ---
Subjective Progress Note Date: 12/09/20 This is a pleasant 75-year-old gentleman with a known history of CAD who presented to the hospital initially with a syncopal episode and was found to have second-degree AV block with 2 to one conduction with left axis deviation and right bundle branch block. He underwent placement of dual-chamber permanent pacemaker yesterday by Dr. Tena. This morning he is feeling well. He is feeling quite a bit better compared to admission. He had no further complaints of ectopy. Chest x-ray postprocedure showed no sizeable pneumothorax. He remains on aspirin 81 mg daily, atorvastatin 20 mg daily, finasteride, gabapentin, insulin, losartan 25 mg by mouth twice a day and Flomax. Objective - Vital Signs Vital signs: Vital Signs Temp 97.9 F 12/09/20 08:15 Pulse 84 12/09/20 08:15 Resp 18 12/09/20 08:15 BP 187/82 12/09/20 08:15 Pulse Ox 96 12/09/20 08:15 Intake & Output 12/08/20 12/09/20 12/09/20 18:59 06:59 18:59 Intake Total 460 250 400 Output Total 100 Balance 360 250 400 Weight 77.5 kg Intake: IV 100 Intake, IV Titration 160 Amount Sodium Chloride 0.9% 1, 160 000 ml @ 20 mls/hr IV . Q24H [facility] Rx#:[id number] Oral 360 250 240 Output: Urine 100 Other: Voiding Method Urinal Urinal Urinal Diaper Diaper Incontinent Incontinent # Voids 1 1 # Bowel Movements 1 1 - Exam PHYSICAL EXAMINATION: HEENT: Head is atraumatic, normocephalic. Pupils equal, round. Neck is supple. There is no elevated jugular venous pressure. HEART EXAMINATION: Heart sounds regular, S1 and S2 with systolic murmur. CHEST EXAMINATION: Lungs are clear to auscultation. LIC site with dressing intact with mild amount of drainage noted. Insight is somewhat tender but soft palpate with no evidence of ecchymosis or hematoma. ABDOMEN: Soft, nontender. Bowel sounds are heard. No organomegaly noted. EXTREMITIES: 2+ peripheral pulses with no evidence of peripheral edema and no calf tenderness noted. Left arm sling placed. NEUROLOGIC patient is awake, alert and oriented x3. . - Labs CBC & Chem 7: 12/06/20 06:58 12/06/20 06:58 Labs: Abnormal Lab Results - Last 24 Hours (Table) 12/08/20 12/08/20 12/08/20 Range/Units 13:04 16:26 19:50 POC Glucose (mg/dL) 121 H 131 H 197 H (75-99) mg/dL 12/09/20 Range/Units 06:01 POC Glucose (mg/dL) 123 H (75-99) mg/dL Microbiology - Last 24 Hours (Table) 12/06/20 15:19 Urine Culture - Final Urine,Clean Catch Escherichia coli Assessment and Plan Assessment: #1 syncopal episode with trifascicular block and second-degree AV block with 2 to one conduction, status post permanent pacemaker implantation yesterday #2 status post coronary artery bypass grafting with no evidence of acute coronary syndrome #3 hyperlipidemia #4 hypertension #5 diabetes mellitus Plan: From cardiology's perspective the patient may be discharged home today. He will have device clinic follow-up and follow-up with Dr. ALISHA Harper in one week. I have reinforced Initial restrictions of no lifting over 5 pounds no raising arms above shoulder level and no driving for one week. He verbalized understanding. 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 Patient was seen and examined.
[2020-12-09 11:28] LABS: Glucose,Whole Blood 172 mg/dL (75-99)
[2020-12-09 16:32] LABS: Glucose,Whole Blood 153 mg/dL (75-99)
[2020-12-09 21:03] LABS: Glucose,Whole Blood 129 mg/dL (75-99)
[2020-12-09] MEDS: TAMSULOSIN 0.4 MG CAP.ER.24H PO SCH (21:19)
[2020-12-09] MEDS: INSULIN DETEMIR (LEVEMIR) 100 UNIT/ML SYR SQ SCH (21:19)
[2020-12-09] MEDS: ATORVASTATIN 20 MG TAB PO SCH (21:19)
[2020-12-09 22:19] VITALS: RESP 16
--- NOTE | 2020-12-09 23:40 | P.PN ---
Subjective Progress Note Date: 12/09/20 Principal diagnosis: Heart block - 2 nd degree Cristo Perez is a 75-year-old male with past medical history significant for CAD s/p CABG, hx [place], DM, HTN, HLD who presented to the hospital with dizziness, syncope as well as RUE pain. He states yesterday he woke up to use the bathroom walking he became dizzy and lightheaded and fell striking the right side of his body and his dresser. Prior to falling he does recall feeling dizzy, mildly diaphoretic and slightly nauseated. He denies having symptoms of chest pain, palpitations or shortness of breath. Initial EKG on arrival revealed sinus bradycardia heart rate of 47 with second-degree AV block, right bundle branch block and left anterior fascicular block with a single PVC. Resting heart rate in the 50s. Labs reviewed and overall unremarkable, trop negative 2. On 12/09/2020- He underwent placement of dual-chamber permanent pacemaker yesterday by Dr. Tena. This morning he is feeling well. He is feeling quite a bit better compared to admission. He had no further complaints of ectopy. Chest x-ray postprocedure showed no sizeable pneumothorax. Vitals and labs reviewed. Active Medications Acetaminophen (Acetaminophen Tab 325 Mg Tab) 650 mg PO Q6HR PRN PRN Reason: Fever and/ or Pain Last Admin: 12/09/20 08:28 Dose: 650 mg Documented by: Albuterol/Ipratropium (Ipratropium-Albuterol 3 Ml Neb) 3 ml INHALATION RT-QID PRN PRN Reason: Shortness Of Breath Aspirin (Aspirin 81 Mg) 81 mg PO DAILY [facility] Last Admin: 12/09/20 08:22 Dose: 81 mg Documented by: Atorvastatin Calcium (Atorvastatin 20 Mg Tab) 20 mg PO HS [facility] Last Admin: 12/08/20 20:23 Dose: 20 mg Documented by: Finasteride (Finasteride 5 Mg Tab) 5 mg PO DAILY [facility] Last Admin: 12/09/20 08:22 Dose: 5 mg Documented by: Gabapentin (Gabapentin 100 Mg Cap) 100 mg PO HS PRN PRN Reason: pain/restless legs Sodium Chloride (Saline 0.9%) 1,000 mls @ 20 mls/hr IV .Q24H [facility] Last Admin: 12/09/20 08:22 Dose: 20 mls/hr Documented by: Sodium Chloride (Saline 0.9%) 1,000 mls @ 50 mls/hr IV .Q20H [facility] Last Admin: 12/09/20 01:51 Dose: Not Given Documented by: Lactated Ringer's (Lactated Ringers) 1,000 mls @ 20 mls/hr IV .Q24H [facility] Last Admin: 12/09/20 06:02 Dose: Not Given Documented by: Insulin Aspart (Insulin Aspart (Novolog) 100 Unit/Ml Vial) 0 unit SQ [facility]; Protocol Last Admin: 12/09/20 17:03 Dose: 1 unit Documented by: Insulin Detemir (Insulin Detemir (Levemir) 100 Unit/Ml Syr) 25 unit SQ [facility] Last Admin: 12/08/20 20:24 Dose: 25 unit Documented by: Losartan Potassium (Losartan 25 Mg Tab) 25 mg PO BID [facility] Last Admin: 12/09/20 08:22 Dose: 25 mg Documented by: Miscellaneous Information (Magnesium Replacement Protocol 1 Each Misc) 1 each MISCELLANE DAILY PRN; Protocol PRN Reason: Per Protocol Naloxone HCl (Naloxone 0.4 Mg/Ml 1 Ml Vial) 0.2 mg IV Q2M PRN PRN Reason: Opioid Reversal Pantoprazole Sodium (Pantoprazole 40 Mg Tablet) 40 mg PO AC-BRKFST [facility] Sodium Chloride (Sodium Chloride 0.9% Flush 10 Ml Syringe) 10 ml IV Q12HR [facility] Last Admin: 12/09/20 08:22 Dose: 10 ml Documented by: Tamsulosin HCl (Tamsulosin 0.4 Mg Cap.Er.24h) 0.4 mg PO [facility] Last Admin: 12/08/20 20:23 Dose: 0.4 mg Documented by: Objective - Vital Signs Vital signs: Vital Signs Temp 98.2 F 12/09/20 16:00 Pulse 79 12/09/20 16:00 Resp 18 12/09/20 16:00 BP 145/65 12/09/20 16:00 Pulse Ox 92 L 12/09/20 16:00 Intake & Output 12/08/20 12/09/20 12/09/20 18:59 06:59 18:59 Intake Total 691 720 3367 Output Total 100 600 Balance 360 250 440 Weight 77.5 kg Intake: IV 100 Intake, IV Titration 320 Amount Sodium Chloride 0.9% 1, 320 000 ml @ 20 mls/hr IV . Q24H [facility] Rx#:[id number] Oral 360 250 720 Output: Urine 100 600 Other: Voiding Method Urinal Urinal Urinal Diaper Diaper Incontinent Incontinent # Voids 1 1 # Bowel Movements 1 1 - Exam PHYSICAL EXAMINATION: GENERAL: The patient is alert and oriented X3, in any acute distress. HEENT: No conjunctival pallor. Normocephalic, atraumatic. No pharyngeal erythema. No thyromegaly. CARDIOVASCULAR: S1 and S2 present. PULMONARY: Chest is clear to auscultation ABDOMEN: Soft, nontender, nondistended, normoactive bowel sounds. No palpable organomegaly. EXTREMITIES: No cyanosis, clubbing, or pedal edema. NEUROLOGICAL: No focal neurological deficits. SKIN: No rash - Labs CBC & Chem 7: 12/06/20 06:58 12/06/20 06:58 Labs: Abnormal Lab Results - Last 24 Hours (Table) 12/08/20 12/09/20 12/09/20 Range/Units 19:50 06:01 11:26 POC Glucose (mg/dL) 197 H 123 H 172 H (75-99) mg/dL 12/09/20 Range/Units 16:31 POC Glucose (mg/dL) 153 H (75-99) mg/dL Microbiology - Last 24 Hours (Table) 12/06/20 15:19 Urine Culture - Final Urine,Clean Catch Escherichia coli Assessment and Plan Assessment: ASSESSMENT Second-degree type II AV block Syncopal episode secondary to above Status post permanent pacemaker implantation done on 12/08/2020 Hypertension Hyperlipidemia Diabetes mellitus History of prostate cancer PLAN: Patient had a pacemaker placed yesterday, he is doing fine. Possible discharge tomorrow. Continue with the current medication regimen.
[2020-12-10] MEDS: ACETAMINOPHEN TAB 325 MG TAB PO PRN (02:58)
[2020-12-10] MEDS: LACTATED RINGERS 1,000 ML IV SCH (03:50)
[2020-12-10 06:09] LABS: Glucose,Whole Blood 107 mg/dL (75-99)
[2020-12-10] MEDS: INSULIN ASPART (NovoLOG) 100 UNIT/ML VIAL SQ SCH ×2 (06:30→12:35)
[2020-12-10] MEDS ORDERED: PANTOPRAZOLE 40 MG TABLET PO SCH (07:30)
[2020-12-10] MEDS: LOSARTAN 25 MG TAB PO SCH (08:34)
[2020-12-10] MEDS: ASPIRIN 81 MG PO SCH (08:34)
[2020-12-10] MEDS: FINASTERIDE 5 MG TAB PO SCH (08:35)
[2020-12-10 11:43] LABS: Glucose,Whole Blood 134 mg/dL (75-99)
--- NOTE | 2020-12-10 12:29 | P.PN ---
Subjective Progress Note Date: 12/10/20 This is a pleasant 75-year-old gentleman with a known history of CAD who presented to the hospital initially with a syncopal episode and was found to have second-degree AV block with 2 to one conduction with left axis deviation and right bundle branch block. He underwent placement of dual-chamber permanent pacemaker 12/08/[address] Tena. This morning he is feeling well. He is feeling quite a bit better compared to admission. He had no further complaints of ectopy. Chest x-ray postprocedure showed no sizeable pneumothorax. He remains on aspirin 81 mg daily, atorvastatin 20 mg daily, finasteride, gabapentin, insulin, losartan 25 mg by mouth twice a day and Flomax. 12/10/2020 She was seen and examined this morning sitting up in a chair at the bedside. He is feeling well. Interrogation on pacemaker done yesterday was normal. Objective - Vital Signs Vital signs: Vital Signs Temp 98.1 F 12/10/20 08:00 Pulse 76 12/10/20 08:00 Resp 16 12/10/20 08:00 BP 142/69 12/10/20 08:00 Pulse Ox 96 12/10/20 08:00 Intake & Output 12/09/20 12/10/20 12/10/20 18:59 06:59 18:59 Intake Total 1040 240 Output Total 600 600 Balance 440 -600 240 Weight 77 kg Intake: Intake, IV Titration 320 Amount Sodium Chloride 0.9% 1, 320 000 ml @ 20 mls/hr IV . Q24H [facility] Rx#:[id number] Oral 720 240 Output: Urine 600 600 Other: Voiding Method Urinal Urinal Urinal Diaper Diaper Diaper Incontinent Incontinent Incontinent # Voids 1 # Bowel Movements 1 1 1 - Exam PHYSICAL EXAMINATION: HEENT: Head is atraumatic, normocephalic. Pupils equal, round. Neck is supple. There is no elevated jugular venous pressure. HEART EXAMINATION: Heart sounds regular, S1 and S2 with systolic murmur. CHEST EXAMINATION: Lungs are clear to auscultation. LIC site with dressing intact with mild amount of drainage noted. Insight is somewhat tender but soft palpate with no evidence of ecchymosis or hematoma. ABDOMEN: Soft, nontender. Bowel sounds are heard. No organomegaly noted. EXTREMITIES: 2+ peripheral pulses with no evidence of peripheral edema and no calf tenderness noted. Left arm sling placed. NEUROLOGIC patient is awake, alert and oriented x3. . 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 He will have device clinic follow-up and follow-up with Dr. ALISHA Harper in one week. I have reinforced Initial restrictions of no lifting over 5 pounds no raising arms above shoulder level and no driving for one week. He verbalized understanding. 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 Patient was seen and examined.
[2020-12-10 12:34] VITALS: BP 161/80; PULSE 73; TEMP 98
--- NOTE | 2020-12-10 16:45 | P.DS ---
Providers Date of admission: 12/06/20 08:23 Expected date of discharge: 12/10/20 Attending physician: Nhan Adam MD Consults: 12/06/20 08:21 Consult Physician Routine Consulting Provider: [facility] Consult Reason/Comments: second degree type II AV block Do you want consulting provider notified?: Yes Primary care physician: [facility] Course: Cristo Perez is a 75-year-old male with past medical history significant for CAD s/p CABG, hx [place], DM, HTN, HLD who presented to the hospital with dizziness, syncope as well as RUE pain. He states yesterday he woke up to use the bathroom walking he became dizzy and lightheaded and fell striking the right side of his body and his dresser. Prior to falling he does recall feeling dizzy, mildly diaphoretic and slightly nauseated. He denies having symptoms of chest pain, palpitations or shortness of breath. Initial EKG on arrival revealed sinus bradycardia heart rate of 47 with second-degree AV block, right bundle branch block and left anterior fascicular block with a single PVC. Resting heart rate in the 50s. Labs reviewed and overall unremarkable, trop negative 2. Hospital course - He underwent placement of dual-chamber permanent pacemaker 12/08/[address] Tena. Postop he was doing fine. He was cleared by cardiology to be discharged home. Patient is comfortably sitting up in the bed and is ready to go home. She denies having any chest pain or palpitations. On reviewing the vitals Vital Signs - 8 hr 12/10/20 12:00 Temperature 98 F Pulse Rate [ 73 Right Pulse Oximetery] Respiratory 16 Rate Blood Pressure 161/80 [Right Arm] O2 Sat by Pulse 95 Oximetry PHYSICAL EXAMINATION: GENERAL: The patient is alert and oriented X3, in any acute distress. HEENT: No conjunctival pallor. Normocephalic, atraumatic. No pharyngeal erythema. No thyromegaly. CARDIOVASCULAR: S1 and S2 present. PULMONARY: Chest is clear to auscultation ABDOMEN: Soft, nontender, nondistended, normoactive bowel sounds. No palpable organomegaly. EXTREMITIES: No cyanosis, clubbing, or pedal edema. NEUROLOGICAL: No focal neurological deficits. SKIN: No rash DISCHARGE DIAGNOSIS Second-degree type II AV block Syncopal episode secondary to above Status post permanent pacemaker implantation done on 12/08/2020 Hypertension Hyperlipidemia Diabetes mellitus History of prostate cancer Follow-up: Patient is advised to follow up with cardiology in 1 week and his primary care physician in 2-3 days. Patient Condition at Discharge: Fair Plan - Discharge Summary New Discharge Prescriptions: Continue Atorvastatin [Lipitor] 20 mg PO HS Finasteride [Proscar] 5 mg PO DAILY Cholecalciferol [Vitamin D3 (25 Mcg = 1000 Iu)] 5,000 unit PO DAILY Aspirin [[place] Aspirin EC] 81 mg PO DAILY Sertraline HCl [Zoloft] 50 mg PO DAILY Tamsulosin [Flomax] 0.4 mg PO HS Insulin Glargine,Hum.rec.anlog [Lantus Solostar] 25 unit SQ HS Losartan Potassium [Cozaar] 25 mg PO HS Acetaminophen [Tylenol Arthritis] 650 mg PO HS Ipratropium-Albuterol Nebulize [Duoneb 0.5 mg-3 mg/3 ml Soln] 3 ml INHALATION RT-QID PRN PRN Reason: Shortness Of Breath Ferrous Sulfate [Feosol] 325 mg PO DAILY Nitroglycerin Sl Tabs [Nitrostat] 0.4 mg SUBLINGUAL Q5M PRN #100 tab PRN Reason: Chest Pain Glimepiride [Amaryl] 1 mg PO DAILY Gabapentin [Neurontin] 100 mg PO HS PRN PRN Reason: pain/restless legs Discontinued Isosorbide Mononitrate [Isosorbide Mononitrate ER] 15 mg PO DAILY@1200 Discharge Medication List Aspirin [[facility] [place] Aspirin EC] 81 mg PO DAILY 01/07/19 [History] Atorvastatin [Lipitor] 20 mg PO HS 01/07/19 [History] Cholecalciferol [Vitamin D3 (25 Mcg = 1000 Iu)] 5,000 unit PO DAILY 01/07/19 [History] Finasteride [Proscar] 5 mg PO DAILY 01/07/19 [History] Sertraline HCl [Zoloft] 50 mg PO DAILY 02/05/19 [History] Tamsulosin [Flomax] 0.4 mg PO HS 07/06/19 [History] Insulin Glargine,Hum.rec.anlog [Lantus Solostar] 25 unit SQ HS 02/06/20 [History] Losartan Potassium [Cozaar] 25 mg PO HS 02/06/20 [History] Acetaminophen [Tylenol Arthritis] 650 mg PO HS 07/27/20 [History] Ferrous Sulfate [Feosol] 325 mg PO DAILY 07/27/20 [History] Ipratropium-Albuterol Nebulize [Duoneb 0.5 mg-3 mg/3 ml Soln] 3 ml INHALATION RT-QID PRN 07/27/20 [History] Nitroglycerin Sl Tabs [Nitrostat] 0.4 mg SUBLINGUAL Q5M PRN #100 tab 07/29/20 [Rx] Glimepiride [Amaryl] 1 mg PO DAILY 08/24/20 [History] Gabapentin [Neurontin] 100 mg PO HS PRN 12/06/20 [History] Follow up Appointment(s)/Referral(s): Homer Harper MD [STAFF PHYSICIAN] - 12/14/20 2:00 pm Nhan Adam MD [STAFF PHYSICIAN] - 12/11/20 10:45 am (Post hospital follow up appointments are made with Dr. Adam. Appointment FRIDAY at [facility]) [facility] Visiting Nurse, [NON-STAFF] - Patient Instructions/Handouts: Pacemaker (DC) Activity/Diet/Wound Care/Special Instructions: PACEMAKER Keep dressing dry and intact for 5 days. You may cover the area with saran or cling wrap, prior to a shower. The dressing will be removed in the Device Clinic at [facility]. Absorbable sutures were used to close the wound. Avoid raising the left arm above the shoulder level. (4-week restriction). Avoid arm movements, like backscratching, rubbing your head, or pulling on a cord with your left arm. (4-week restriction). Gentle range of motion movements of the left shoulder should be performed to avoid a frozen shoulder. (Pendulum exercises). The opposite arm may be used freely. Avoid driving for 7 days. Avoid activities such as golfing, swimming, week whacking, lifting more than 10 pounds of weight, bowling, gymnastics and weight training/lifting. (6-week restriction). Activities such as chopping wood, pull-ups, power lifting, welding, and being around an induction cooktop will always be a problem and can interfere with your pacemaker. Your arm sling is only a reminder to not lift your arm above your head. You do not need to keep the arm completely immobilized. You are free to move your arm and use it for normal activities. In case of any problems, please call [facility], [place] @ [phone] Discharge Disposition: HOME SELF-CARE
== END 2020-12-10 13:22 | disposition home or self-care (01) | DRG 244 ==
LOC: EC 06:25 → 3SCARD 08:23 → UNDODISIN 13:01
PROVIDERS: ADMIT Family Medicine; ATTEND Family Medicine
PROC: 02HK3JZ Insertion of Pacemaker Lead into Right Ventricle, Percutaneous Approach (ICD-10-PCS; principal; 2020-12-08 11:00)
PROC: 02H63JZ Insertion of Pacemaker Lead into Right Atrium, Percutaneous Approach (ICD-10-PCS; principal; 2020-12-08 11:00)
PROC: 0JH606Z Insertion of Pacemaker, Dual Chamber into Chest Subcutaneous Tissue and Fascia, Open Approach (ICD-10-PCS; principal; 2020-12-08 11:00)
DX: I44.1 Atrioventricular block, second degree (principal); E78.5 Hyperlipidemia, unspecified; E11.9 Type 2 diabetes mellitus without complications; G25.81 Restless legs syndrome; I25.10 Atherosclerotic heart disease of native coronary artery without angina pectoris; J44.9 Chronic obstructive pulmonary disease, unspecified; I10 Essential (primary) hypertension; I45.3 Trifascicular block; Z79.4 Long term (current) use of insulin; Z79.82 Long term (current) use of aspirin; Z79.899 Other long term (current) drug therapy; Z82.49 Family history of ischemic heart disease and other diseases of the circulatory system; Z83.3 Family history of diabetes mellitus; Z85.46 Personal history of malignant neoplasm of prostate; Z87.891 Personal history of nicotine dependence; Z90.5 Acquired absence of kidney; Z95.1 Presence of aortocoronary bypass graft; Z86.14 Personal history of Methicillin resistant Staphylococcus aureus infection; I25.2 Old myocardial infarction
CPT/HCPCS: 33208; 36415; 71046; 80053; 81001; 83605; 83690; 84443; 84484; 85025; 85610; 85730; 87077; 87086; 87186; 93005; 96374; 99285

== ENCOUNTER 2021-02-19 05:02 | Inpatient (IN) | payer MEDICARE, OTHER ==
[2021-02-19] MEDS ORDERED: IPRATROPIUM-ALBUTEROL 3 ML NEB INHALATION STA (05:27)
[2021-02-19] MEDS ORDERED: SODIUM CHLORIDE 0.9% 1,000 ML IV STA (05:27)
[2021-02-19] MEDS ORDERED: MORPHINE SULFATE 4 MG/ML SYRINGE IVP STA (05:28)
--- NOTE | 2021-02-19 05:29 | ED ---
SOB HPI - General Chief Complaint: Shortness of Breath Stated Complaint: OLGA,Chest Pain Time Seen by Provider: 02/19/21 05:09 Source: patient Mode of arrival: wheelchair Limitations: no limitations - Related Data Home Medications Medication Instructions Recorded Confirmed Aspirin [[place] Aspirin EC] 81 mg PO DAILY 01/07/19 12/06/20 Atorvastatin [Lipitor] 20 mg PO HS 01/07/19 12/06/20 Cholecalciferol [Vitamin D3 (25 5,000 unit PO DAILY 01/07/19 12/06/20 Mcg = 1000 Iu)] Finasteride [Proscar] 5 mg PO DAILY 01/07/19 12/06/20 Sertraline HCl [Zoloft] 50 mg PO DAILY 02/05/19 12/06/20 Tamsulosin [Flomax] 0.4 mg PO HS 07/06/19 12/06/20 Insulin Glargine,Hum.rec.anlog 25 unit SQ HS 02/06/20 12/06/20 [Lantus Solostar] Losartan Potassium [Cozaar] 25 mg PO HS 02/06/20 12/06/20 Acetaminophen [Tylenol Arthritis] 650 mg PO HS 07/27/20 12/06/20 Ferrous Sulfate [Feosol] 325 mg PO DAILY 07/27/20 12/06/20 Ipratropium-Albuterol Nebulize 3 ml INHALATION RT-QID PRN 07/27/20 12/06/20 [Duoneb 0.5 mg-3 mg/3 ml Soln] Glimepiride [Amaryl] 1 mg PO DAILY 08/24/20 12/06/20 Gabapentin [Neurontin] 100 mg PO HS PRN 12/06/20 12/06/20 Previous Rx's Medication Instructions Recorded Nitroglycerin Sl Tabs [Nitrostat] 0.4 mg SUBLINGUAL Q5M PRN #100 tab 07/29/20 Allergies Allergy/AdvReac Type Severity Reaction Status Date / Time No Known Allergies Allergy Verified 02/19/21 05:03 Review of Systems ROS Statement: Those systems with pertinent positive or pertinent negative responses have been documented in the HPI. ROS Other: All systems not noted in ROS Statement are negative. Past Medical History Past Medical History: Coronary Artery Disease (CAD), Cancer, COPD, Diabetes Mellitus, Hyperlipidemia, Hypertension, Myocardial Infarction ([place]), Prostate Disorder Additional Past Medical History / Comment(s): prostate cancer with radiation > 20 years ago, nstemi, wears a brief incont urine/stool Last Myocardial Infarction Date:: 2017 History of Any Multi-Drug Resistant Organisms: ESBL, MRSA Date of last positivie culture/infection: 01/07/19 ESBL; 10/27/18 MRSA MDRO Source:: Urine-ESBL; Back-MRSA Past Surgical History: Coronary Bypass/CABG Additional Past Surgical History / Comment(s): 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,prostate bx, triple bypass 2017, bronchoscopy, picc line pt stated since removed Past Anesthesia/Blood Transfusion Reactions: No Reported Reaction Past Psychological History: No Psychological Hx Reported Smoking Status: Former smoker Past Alcohol Use History: None Reported Past Drug Use History: None Reported - Past Family History Father Additional Family Medical History / Comment(s): old age Mother Family Medical History: Coronary Artery Disease (CAD), Diabetes Mellitus Additional Family Medical History / Comment(s): CABG General Exam Limitations: no limitations Course Vital Signs 02/19/21 02/19/21 02/19/21 05:03 06:00 06:10 Temperature 98.6 F Pulse Rate 80 77 80 Respiratory 18 Rate Blood Pressure 149/81 O2 Sat by Pulse 93 L Oximetry Medical Decision Making - Lab Data Result diagrams: 02/19/21 05:45 02/19/21 05:45 Lab Results 02/19/21 02/19/21 02/19/21 Range/Units 05:45 05:45 05:45 WBC 4.9 (3.8-10.6) k/uL RBC 4.47 (4.30-5.90) m/uL Hgb 13.2 (13.0-17.5) gm/dL Hct 40.2 (39.0-53.0) % MCV 89.9 (80.0-100.0) fL MCH 29.6 (25.0-35.0) pg MCHC 32.9 (31.0-37.0) g/dL RDW 15.2 (11.5-15.5) % Plt Count 104 L (150-450) k/uL MPV 8.8 Neutrophils % 80 % Lymphocytes % 7 % Monocytes % 10 % Eosinophils % 1 % Basophils % 1 % Neutrophils # 4.0 (1.3-7.7) k/uL Lymphocytes # 0.4 L (1.0-4.8) k/uL Monocytes # 0.5 (0-1.0) k/uL Eosinophils # 0.0 (0-0.7) k/uL Basophils # 0.0 (0-0.2) k/uL PT (9.0-12.0) sec INR (<1.2) APTT (22.0-30.0) sec Sodium 133 L (137-145) mmol/L Potassium 5.6 H (3.5-5.1) mmol/L Chloride 101 (98-107) mmol/L Carbon Dioxide 24 (22-30) mmol/L Anion Gap 8 mmol/L BUN 28 H (9-20) mg/dL Creatinine 1.23 (0.66-1.25) mg/dL Est GFR (CKD-EPI)AfAm 66 (>60 ml/min/1.73 sqM) Est GFR (CKD-EPI)NonAf 57 (>60 ml/min/1.73 sqM) Glucose 133 H (74-99) mg/dL Plasma Lactic Acid Chauncey 1.2 (0.7-2.0) mmol/L Calcium 8.9 (8.4-10.2) mg/dL Magnesium 1.6 (1.6-2.3) mg/dL Total Bilirubin 0.8 (0.2-1.3) mg/dL AST 48 (17-59) U/L ALT 25 (4-49) U/L Alkaline Phosphatase 80 (38-126) U/L NT-Pro-B Natriuret Pep pg/mL Total Protein 6.7 (6.3-8.2) g/dL Albumin 3.8 (3.5-5.0) g/dL Lipase 61 (23-300) U/L 02/19/21 02/19/21 Range/Units 05:45 05:57 WBC (3.8-10.6) k/uL RBC (4.30-5.90) m/uL Hgb (13.0-17.5) gm/dL Hct (39.0-53.0) % MCV (80.0-100.0) fL MCH (25.0-35.0) pg MCHC (31.0-37.0) g/dL RDW (11.5-15.5) % Plt Count (150-450) k/uL MPV Neutrophils % % Lymphocytes % % Monocytes % % Eosinophils % % Basophils % % Neutrophils # (1.3-7.7) k/uL Lymphocytes # (1.0-4.8) k/uL Monocytes # (0-1.0) k/uL Eosinophils # (0-0.7) k/uL Basophils # (0-0.2) k/uL PT 10.1 (9.0-12.0) sec INR 0.9 (<1.2) APTT 24.2 (22.0-30.0) sec Sodium (137-145) mmol/L Potassium (3.5-5.1) mmol/L Chloride (98-107) mmol/L Carbon Dioxide (22-30) mmol/L Anion Gap mmol/L BUN (9-20) mg/dL Creatinine (0.66-1.25) mg/dL Est GFR (CKD-EPI)AfAm (>60 ml/min/1.73 sqM) Est GFR (CKD-EPI)NonAf (>60 ml/min/1.73 sqM) Glucose (74-99) mg/dL Plasma Lactic Acid Chauncey (0.7-2.0) mmol/L Calcium (8.4-10.2) mg/dL Magnesium (1.6-2.3) mg/dL Total Bilirubin (0.2-1.3) mg/dL AST (17-59) U/L ALT (4-49) U/L Alkaline Phosphatase (38-126) U/L NT-Pro-B Natriuret Pep 416 pg/mL Total Protein (6.3-8.2) g/dL Albumin (3.5-5.0) g/dL Lipase (23-300) U/L - EKG Data -: EKG Interpreted by Me (EKG shows sinus rhythm 76 CA 170 QRS 148 QTc 465) Disposition Clinical Impression: COPD (chronic obstructive pulmonary disease), Acute renal failure (ARF), Community acquired pneumonia Disposition: ADMITTED IP TO THIS [facility] Condition: Fair Is patient prescribed a controlled substance at d/c from ED?: No Referrals: Della Grant MD [Primary Care Provider] - 1-2 days
[2021-02-19 05:59] LABS: Basophils % (A) 1 %; Eosinophils % (A) 1 %; HCT 40.2 % (39.0-53.0); HGB 13.2 gm/dL (13.0-17.5); Lymphocytes # (A) 0.4 k/uL (1.0-4.8); Lymphocytes % (A) 7 %; MCH 29.6 pg (25.0-35.0); MCHC 32.9 g/dL (31.0-37.0); MCV 89.9 fL (80.0-100.0); Mean Platelet Volume 8.8; Monocytes # (A) 0.5 k/uL (0-1.0); Monocytes % (A) 10 %; Neutrophils % (A) 80 %; Platelet Count 104 k/uL (150-450); RBC 4.47 m/uL (4.30-5.90); RDW 15.2 % (11.5-15.5); WBC 4.9 k/uL (3.8-10.6)
[2021-02-19 06:20] LABS: INR 0.9 (<1.2); Partial Thromboplastin Time 24.2 sec (22.0-30.0); Prothrombin Time 10.1 sec (9.0-12.0)
[2021-02-19 06:29] LABS: Calcium 8.9 mg/dL (8.4-10.2)
--- NOTE | 2021-02-19 06:45 | XR ---
EXAM: XR Lumbosacral Spine, 2 or 3 Views CLINICAL HISTORY: ITS.REASON XR Reason: pian TECHNIQUE: Frontal and lateral views of the lumbar spine and sacrum. COMPARISON: No relevant prior studies available. FINDINGS/IMPRESSION: No compression fracture of the lumbar spine. Minimal anterior wedging of L1, which appears chronic. No spondylolisthesis. Straightening of the lumbar lordosis. Mild positional dextrocurvature. Diffuse osseous demineralization. Multilevel endplate changes and disc-space narrowing, which preferentially involves L5-S1. The posterior elements are intact.
--- NOTE | 2021-02-19 06:46 | XR ---
EXAM: XR Chest, 1 View CLINICAL HISTORY: ITS.REASON XR Reason: difficulty breathing TECHNIQUE: Frontal view of the chest. COMPARISON: CXR December 09, 2020. FINDINGS/IMPRESSION: Airspace opacities at the lung bases, concerning for infiltrate. Follow- up 2 view CXR recommended. Suspect, trace bilateral pleural effusions. No pneumothorax. Cardiomegaly. Calcified aorta. Dual-lead pacemaker. Sternotomy wires.
[2021-02-19 06:47] LABS: Albumin 3.8 g/dL (3.5-5.0); Magnesium 1.6 mg/dL (1.6-2.3); Potassium 5.6 mmol/L (3.5-5.1); Total Bilirubin 0.8 mg/dL (0.2-1.3); Total Protein 6.7 g/dL (6.3-8.2)
[2021-02-19] MEDS ORDERED: PNEUMONIA PROTOCOL UTILIZED 1 EACH MISC PO PRN (06:57)
[2021-02-19] MEDS ORDERED: AZITHROMYCIN 500 MG in SODIUM CHLORIDE 0.9% 250 ML IVPB STA (06:57)
[2021-02-19] MEDS ORDERED: IPRATROPIUM-ALBUTEROL 3 ML NEB INHALATION PRN (06:57)
[2021-02-19 08:09] LABS: C Reactive Protein 31.3 mg/L (<10.0)
[2021-02-19] MEDS: ACETAMINOPHEN TAB 325 MG TAB PO PRN ×2 (13:33→20:14)
[2021-02-19] MEDS ORDERED: GABAPENTIN 100 MG CAP PO PRN (16:00)
[2021-02-19 17:42] LABS: Glucose,Whole Blood 137 mg/dL (75-99)
[2021-02-19] MEDS: INSULIN ASPART (NovoLOG) 100 UNIT/ML VIAL SQ SCH ×2 (18:46→21:16)
[2021-02-19] MEDS: TAMSULOSIN 0.4 MG CAP.ER.24H PO SCH (20:14)
[2021-02-19] MEDS: ATORVASTATIN 20 MG TAB PO SCH (20:14)
[2021-02-19] MEDS: LOSARTAN 25 MG TAB PO SCH (20:15)
[2021-02-19 20:33] LABS: Glucose,Whole Blood 220 mg/dL (75-99)
[2021-02-19] MEDS: HYDROcodone/APAP 5-325MG 1 EACH TAB PO PRN (22:21)
[2021-02-20] MEDS ORDERED: VANCOMYCIN 1,500 MG in SODIUM CHLORIDE 0.9% 250 ML IVPB ONE (04:15)
[2021-02-20] MEDS ORDERED: VANCOMYCIN IV PER PHARMACY 1 EACH MISC MISCELLANE SCH (07:00)
[2021-02-20] MEDS: HYDROcodone/APAP 5-325MG 1 EACH TAB PO PRN ×2 (07:03→16:46)
[2021-02-20 07:21] LABS: Glucose,Whole Blood 146 mg/dL (75-99)
--- NOTE | 2021-02-20 08:26 | P.HPIM ---
History of Present Illness H&P Date: 02/19/21 Chief Complaint: shortness of breath Cristo ePrez is a 76 yo M with PMH of COPD, CAD, hx MT, T2DM who presented to the ED complaining of worsening shortness of breath and weakness. He complains that over the past few days he has become more fatigued and now is experiencing a cough and chest pain. He denies any radiation. He feels his back pain has been worsened as well. Denies any inciting factors. No fever or chills. He denies any falls at home. On presentation he was hypoxic, BP stable, WBC 4.9k, COVID positive, trop 0.062. CXR with gisselle lower lobe infiltrates. Review of Systems All systems: negative Constitutional: Reports fatigue, Reports malaise, Reports sweats, Reports weakness, Denies chills, Denies fever Eyes: denies blurred vision, denies pain Ears, nose, mouth and throat: Denies headache, Denies sore throat Cardiovascular: Reports chest pain, Denies shortness of breath Respiratory: Reports cough, Reports dyspnea Gastrointestinal: Denies abdominal pain, Denies diarrhea, Denies nausea, Denies vomiting Musculoskeletal: Denies myalgias Integumentary: Denies pruritus, Denies rash Neurological: Denies numbness, Denies weakness Psychiatric: Denies anxiety, Denies depression Endocrine: Denies fatigue, Denies weight change Past Medical History Past Medical History: Coronary Artery Disease (CAD), Cancer, COPD, Diabetes Mellitus, Eye Disorder, GI Bleed, Hyperlipidemia, Hypertension, Myocardial Inf arction (MT), Prostate Disorder, Renal Disease, Syncope Additional Past Medical History / Comment(s): IDDM type II, neuropathy bilateral feet, R nephrectomy d/t nonfunctioning/kidney stones, prostate cancer with radiation, incontinence urine/stool, 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 Last Myocardial Infarction Date:: 2017 History of Any Multi-Drug Resistant Organisms: ESBL, MRSA Date of last positivie culture/infection: 01/07/19 ESBL; 10/27/18 MRSA MDRO Source:: Urine-ESBL; Back-MRSA Past Surgical History: Coronary Bypass/CABG, Pacemaker, Prostate Surgery Additional Past Surgical History / Comment(s): 12/18/20 pacemaker, prostate bx, R nephrectomy, triple bypass 2018, bronchoscopy, colonoscopy, bilateral cataract removals, picc line pt stated since removed Past Anesthesia/Blood Transfusion Reactions: No Reported Reaction Type of Cardiac Device: Permanent Pacemaker Device Placement Date:: 12/08/20 Smoking Status: Former smoker - Past Family History Father Additional Family Medical History / Comment(s): Father of old age in his 80s. Mother Family Medical History: Coronary Artery Disease (CAD), Diabetes Mellitus Additional Family Medical History / Comment(s): CABG Medications and Allergies Home Medications Medication Instructions Recorded Confirmed Type Aspirin [[place] Aspirin EC] 81 mg PO DAILY 01/07/19 02/19/21 History Atorvastatin [Lipitor] 20 mg PO HS 01/07/19 02/19/21 History Cholecalciferol [Vitamin D3 (25 125 mcg PO DAILY 01/07/19 02/19/21 History Mcg = 1000 Iu)] Finasteride [Proscar] 5 mg PO DAILY 01/07/19 02/19/21 History Sertraline HCl [Zoloft] 50 mg PO DAILY 02/05/19 02/19/21 History Tamsulosin [Flomax] 0.4 mg PO HS 07/06/19 02/19/21 History Insulin Glargine,Hum.rec.anlog 23 unit SQ HS 02/06/20 02/19/21 History [Lantus Solostar] Losartan Potassium [Cozaar] 25 mg PO HS 02/06/20 02/19/21 History Acetaminophen [Tylenol Arthritis] 650 mg PO HS 07/27/20 02/19/21 History Ferrous Sulfate [Feosol] 325 mg PO DAILY 07/27/20 02/19/21 History Ipratropium-Albuterol Nebulize 3 ml INHALATION RT-QID PRN 07/27/20 02/19/21 History [Duoneb 0.5 mg-3 mg/3 ml Soln] Glimepiride [Amaryl] 1 mg PO DAILY 08/24/20 02/19/21 History Gabapentin [Neurontin] 100 mg PO HS PRN 12/06/20 02/19/21 History Nitroglycerin Sl Tabs [Nitrostat] 0.4 mg SL Q5M PRN 02/19/21 02/19/21 History Allergies Allergy/AdvReac Type Severity Reaction Status Date / Time No Known Allergies Allergy Verified 02/19/21 07:18 Physical Exam Vitals: Vital Signs Temp Pulse Pulse Resp BP BP Pulse Ox 02/20/21 07:20 18 02/20/21 07:00 98.3 F 99 16 165/85 99 02/20/21 06:57 99 02/20/21 00:37 99.4 F 62 18 117/68 98 02/19/21 23:50 16 02/19/21 20:05 100.2 F H 70 16 151/71 96 02/19/21 20:00 65 16 02/19/21 19:21 96 02/19/21 15:00 98.8 F 85 14 119/68 96 02/19/21 11:53 98.7 F 75 18 126/68 97 02/19/21 09:40 68 18 143/79 98 Intake and Output 02/19/21 02/20/21 02/20/21 22:59 06:59 14:59 Intake Total 1000 Output Total 100 Balance 900 Intake: Intake, IV Titration 800 Amount cefTRIAXone 2 gm In 800 Sodium Chloride 0.9% 50 ml @ 100 mls/hr IVPB Q24HR [facility] Rx#:[id number] Oral 200 Output: Urine 100 Other: # Voids 1 4 # Bowel Movements 3 Gen: well developed, well nourished, NAD HEENT: normocephalic, atraumatic, mucus membranes moist Neck: supple, no JVD or thyromegaly CV: RRR, no murmur, pulses 2+ Lungs: normal effort, clear throughout Abd: soft, nontender, non distended Neuro: alert and oriented x3, no focal deficit Skin: warm and dry Results CBC & Chem 7: 02/19/21 05:45 02/19/21 05:45 Labs: Abnormal Lab Results - Last 24 Hours (Table) 02/19/21 02/19/21 02/19/21 Range/Units 13:40 16:59 17:35 POC Glucose (mg/dL) 137 H (75-99) mg/dL Troponin I 0.055 H* 0.047 H* (0.000-0.034) ng/mL 02/19/21 02/20/21 Range/Units 20:32 07:14 POC Glucose (mg/dL) 220 H 146 H (75-99) mg/dL Troponin I (0.000-0.034) ng/mL Microbiology - Last 24 Hours (Table) 02/19/21 07:47 Blood Culture Gram Stain - Preliminary Blood Blood Culture - Preliminary Coagulase Negative Staph 02/19/21 07:47 Blood Culture - Final Blood Thrombosis Risk Factor Assmnt - Choose All That Apply Any of the Below Risk Factors Present?: Yes Each Factor Represents 1 point: Abnormal pulmonary function (COPD), Obesity (BMI >25), Serious lung disease incl. pneumonia (< 1month) Other Risk Factors: Yes Each Risk Factor Represents 3 Points: Age 75 years or older Other congenital or acquired thrombophilia - If yes, enter type in comment: No Thrombosis Risk Factor Assessment Total Risk Factor Score: 6 Thrombosis Risk Factor Assessment Level: High Risk Assessment and Plan Plan: 1. Severe sepsis, secondary to COVID pneumonia. Start dexamethasone, vit C, vit D, zinc. Pt given zithromax and rocephin in ED, start Vancomycin. Consult ID for staph bacteremia and COVID pneumonia 2. Elevated troponin. Hx CAD. Suspect demand ischemia. Cardiology consult. Treat underlying cause. Continue losartan 3. T2DM. Accucheck and sliding scale insulin DVT prophylaxis lovenox
[2021-02-20] MEDS: ASCORBIC ACID 500 MG TAB PO SCH (08:57)
[2021-02-20] MEDS: CHOLECALCIFEROL 25 MCG (1000 IU) TABLET PO SCH (08:57)
[2021-02-20] MEDS: ENOXAPARIN 40 MG/0.4 ML SYRINGE SQ SCH (08:57)
[2021-02-20] MEDS: INSULIN ASPART (NovoLOG) 100 UNIT/ML VIAL SQ SCH ×4 (08:58→21:23)
[2021-02-20] MEDS: FINASTERIDE 5 MG TAB PO SCH (08:58)
[2021-02-20] MEDS: AZITHROMYCIN 500 MG TAB PO SCH (08:58)
[2021-02-20] MEDS: DEXAMETHASONE SOD PHOSPHATE 10 MG/ML 1 ML VIAL IV SCH (09:00)
[2021-02-20 09:09] LABS: African American GFR (CKD) 61.4 (60.0-200.0)
[2021-02-20] MEDS: ZINC SULFATE 220 MG CAP PO SCH (09:10)
[2021-02-20] MEDS: ASPIRIN 81 MG PO SCH (09:10)
[2021-02-20] MEDS: SERTRALINE 50 MG TAB PO SCH (09:10)
--- NOTE | 2021-02-20 09:34 | XR ---
EXAMINATION TYPE: XR chest 1V portable DATE OF EXAM: 02/20/2021 COMPARISON: Chest x-ray 02/19/2021 HISTORY: Covid pneumonia TECHNIQUE: Single frontal view of the chest is obtained. FINDINGS: Patchy basilar density is noted. No evident pneumothorax. Instrumentation is not changed. Pacemaker is stable. Right hemidiaphragm is elevated. Cardiomediastinal silhouette is unchanged. Aort a is dense. IMPRESSION: Correlate for pneumonia or edema, difficult to exclude effusion, follow-up PA and latera l chest x-ray when stable.
[2021-02-20] MEDS: ALBUTEROL HFA INHALER INHALATION PRN (11:12)
[2021-02-20 11:32] LABS: C Reactive Protein 46.5 mg/L (<10.0)
[2021-02-20 12:03] LABS: Glucose,Whole Blood 281 mg/dL (75-99)
--- NOTE | 2021-02-20 12:26 | ECHOF ---
Referral Reason:chest pain, shortness of breath MEASUREMENTS -------- HEIGHT: 162.6 cm WEIGHT: 1020.6 kg BP: RVIDd: 3.4 cm (< 3.3) IVSd: 1.3 cm (0.6 - 1.1) LVIDd: 5.7 cm (3.9 - 5.3) LVPWd: 1.6 cm (0.6 - 1.1) IVSs: 1.6 cm LVIDs: 4.3 cm LVPWs: 1.6 cm Ao Diam: 3.6 cm (2.0 - 3.7) LA Diam: 4.3 cm (2.7 - 3.8) AV maxP.24 mmHg AV meanP.73 mmHg FINDINGS -------- Sinus rhythm. Pt is Covid Positive, TDS. Overall left ventricular systolic function is low-normal with, an EF between 50 - 55 %. The right ventricle is normal in size. The left atrium is mildly dilated. The right atrial size is normal. 1.5MG OF DEFINITY UTLIZED: 2 OR MORE WALL SEGMENTS NOT VISUALIZED. There is mild aortic valve sclerosis. There is no evidence of aortic regurgitation. The mitral valve leaflets are mildly thickened. Unable to estimate RVSP due to inadequate TR jet spectral doppler profile. The pulmonic valve was not well visualized. There is no pulmonic regurgitation present. There is no pericardial effusion. CONCLUSIONS -------- 1. Pt is Covid Positive, TDS. 2. Overall left ventricular systolic function is low-normal with, an EF between 50 - 55 %. 3. The right ventricle is normal in size. 4. The left atrium is mildly dilated. 5. The right atrial size is normal. 6. 1.5MG OF DEFINITY UTLIZED: 2 OR MORE WALL SEGMENTS NOT VISUALIZED. 7. There is mild aortic valve sclerosis. 8. The mitral valve leaflets are mildly thickened. 9. Unable to estimate RVSP due to inadequate TR jet spectral doppler profile. 10. The pulmonic valve was not well visualized. 11. There is no pulmonic regurgitation present. 12. There is no pericardial effusion. INTERVENTION MANAGER: Eliane Elizabeth RDCS
--- NOTE | 2021-02-20 13:59 | P.CRDCN ---
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 He underwent bypass grafting in 2018 with a CHAHAL to LAD, SVG to OM and SVG to PDA with Dr. Hannah. He follows in the office with Dr. Harper. We have been asked to see in consultation for elevated troponin. He presented to the hospital with shortness of breath and chest pain. Over the past few days becoming more fatigued, having cough and having chest pain. Chest pain is nonradiating, nonexertional. Chest pain is worse when he coughs and when he takes a deep breath. He also has shortness of breath. Chest pain increases with palpation on anterior chest. Patient found to be covid-19 positive. Initial EKG on arrival sinus rhythm with Right bundle branch block. Chest xray- airspace opacities at the lung bases, concerning for infiltrate, trace bilateral pleural effusions, cardiomegaly, dual-lead pacemaker. Telemetry tracings reveal v-paced rhythm. Laboratory data reviewed, troponin trend 0.06-->0.05-->0.04, BNP 416, Sodium 133, K 5.6, sCr 1.23, BUN 28. Current cardiac medications include aspirin 81 mg daily, atorvastatin 20 mg at bedtime,and losartan 25 mg daily. Most recent echocardiogram obtained August 2020 reveals preserved LV systolic function with ejection fraction 55-60%. REVIEW OF SYSTEMS At the time of my exam: CONSTITUTIONAL: +Fever, + chills CARDIOVASCULAR: +chest pain, +shortness of breath Denies , orthopnea, PND or palpitations. RESPIRATORY: + cough. GASTROINTESTINAL: Denies abdominal pain, diarrhea, constipation, nausea or vomiting. MUSCULOSKELETAL: Complains of pain to the right arm and wrist. NEUROLOGIC: Denies numbness, tingling or weakness. ENDOCRINE: Denies fatigue, weight change, polydipsia or polyurina. GENITOURINARY: Denies burning, hematuria or urgency with micturation. HEMATOLOGIC: Denies history of anemia or bleeding. PHYSICAL EXAMINATION Blood pressure BP 165/85 heart rate 70s afebrile and maintaining oxygen saturation on 3L nasal cannula. CONSTITUTIONAL: No apparent distress. HEENT: Head is normocephalic. Pupils are equal, round. Sclerae anicteric. Mucous membranes of the mouth are moist. No JVD. No carotid bruit. CHEST EXAMINATION: Lungs are diminished in bilateral bases. Chest wall tenderness is noted on palpation and with deep breathing. HEART EXAMINATION: Regular rate and rhythm. S1, S2 heard. No murmurs, gallops or rub. ABDOMEN: Soft, nontender. Positive bowel sounds. Obese. EXTREMITIES: 2+ peripheral pulses, no lower extremity edema and no calf tenderness. NEUROLOGIC EXAMINATION: Patient is awake, alert and oriented x3. ASSESSMENT Covid-19 infection Elevated troponin - peaked at 0.06, no signs of ischemia on EKG. Most likely related to COVID-19 infection History of Trifascicular block s/p pacemaker placement Coronary artery disease status post bypass grafting 2018 Hypertension Dyslipidemia Type 2 Diabetes PLAN -Obtained 2D Echo- left ventricular systolic function is 5055%, left atrium is mildly dilated LA, mild aortic stenosis, mild mitral valve thickening. -No further cardiac workup at this time. Patient can follow up in the office with Dr. Harper outpatient. Thank you kindly for this consultation. Nurse Practitioner note has been reviewed, I agree with a documented findings and plan of care. Patient was seen and examined. 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 Last Myocardial Infarction Date:: 2017 History of Any Multi-Drug Resistant Organisms: ESBL, MRSA Date of last positivie culture/infection: 01/07/19 ESBL; 10/27/18 MRSA MDRO Source:: Urine-ESBL; Back-MRSA Past Surgical History: Coronary Bypass/CABG, Pacemaker, Prostate Surgery Additional Past Surgical History / Comment(s): 12/18/20 pacemaker, prostate bx, R nephrectomy, triple bypass 2018, bronchoscopy, colonoscopy, bilateral cataract removals, picc line pt stated since removed Past Anesthesia/Blood Transfusion Reactions: No Reported Reaction Type of Cardiac Device: Permanent Pacemaker Device Placement Date:: 12/08/20 Smoking Status: Former smoker - Past Family History Father Additional Family Medical History / Comment(s): Father of old age in his 80s. Mother Family Medical History: Coronary Artery Disease (CAD), Diabetes Mellitus Additional Family Medical History / Comment(s): CABG Medications and Allergies Home Medications Medication Instructions Recorded Confirmed Type Aspirin [[place] Aspirin EC] 81 mg PO DAILY 01/07/19 02/19/21 History Atorvastatin [Lipitor] 20 mg PO HS 01/07/19 02/19/21 History Cholecalciferol [Vitamin D3 (25 125 mcg PO DAILY 01/07/19 02/19/21 History Mcg = 1000 Iu)] Finasteride [Proscar] 5 mg PO DAILY 01/07/19 02/19/21 History Sertraline HCl [Zoloft] 50 mg PO DAILY 02/05/19 02/19/21 History Tamsulosin [Flomax] 0.4 mg PO HS 07/06/19 02/19/21 History Insulin Glargine,Hum.rec.anlog 23 unit SQ HS 02/06/20 02/19/21 History [Lantus Solostar] Losartan Potassium [Cozaar] 25 mg PO HS 02/06/20 02/19/21 History Acetaminophen [Tylenol Arthritis] 650 mg PO HS 07/27/20 02/19/21 History Ferrous Sulfate [Feosol] 325 mg PO DAILY 07/27/20 02/19/21 History Ipratropium-Albuterol Nebulize 3 ml INHALATION RT-QID PRN 07/27/20 02/19/21 History [Duoneb 0.5 mg-3 mg/3 ml Soln] Glimepiride [Amaryl] 1 mg PO DAILY 08/24/20 02/19/21 History Gabapentin [Neurontin] 100 mg PO HS PRN 12/06/20 02/19/21 History Nitroglycerin Sl Tabs [Nitrostat] 0.4 mg SL Q5M PRN 02/19/21 02/19/21 History Allergies Allergy/AdvReac Type Severity Reaction Status Date / Time No Known Allergies Allergy Verified 02/19/21 07:18 Physical Exam Vitals: Vital Signs Temp Pulse Resp BP Pulse Ox 02/19/21 11:53 98.7 F 75 18 126/68 97 02/19/21 09:40 68 18 143/79 98 02/19/21 06:10 80 02/19/21 06:00 77 02/19/21 05:03 98.6 F 80 18 149/81 93 L Intake and Output 02/18/21 02/19/21 02/19/21 22:59 06:59 14:59 Other: Weight 99.337 kg 99.337 kg Results 02/19/21 05:45 02/20/21 05:12 Cardiac Enzymes 02/19/21 02/19/21 02/19/21 Range/Units 05:45 05:45 07:47 AST 48 (17-59) U/L Lactate Dehydrogenase 364 (313-618) U/L Troponin I 0.062 H* (0.000-0.034) ng/mL Coagulation 02/19/21 Range/Units 05:57 PT 10.1 (9.0-12.0) sec APTT 24.2 (22.0-30.0) sec CBC 02/19/21 Range/Units 05:45 WBC 4.9 (3.8-10.6) k/uL RBC 4.47 (4.30-5.90) m/uL Hgb 13.2 (13.0-17.5) gm/dL Hct 40.2 (39.0-53.0) % Plt Count 104 L (150-450) k/uL Comprehensive Metabolic Panel 02/19/21 Range/Units 05:45 Sodium 133 L (137-145) mmol/L Potassium 5.6 H (3.5-5.1) mmol/L Chloride 101 (98-107) mmol/L Carbon Dioxide 24 (22-30) mmol/L BUN 28 H (9-20) mg/dL Creatinine 1.23 (0.66-1.25) mg/dL Glucose 133 H (74-99) mg/dL Calcium 8.9 (8.4-10.2) mg/dL AST 48 (17-59) U/L ALT 25 (4-49) U/L Alkaline Phosphatase 80 (38-126) U/L Total Protein 6.7 (6.3-8.2) g/dL Albumin 3.8 (3.5-5.0) g/dL Current Medications Generic Name Dose Route Start Last Admin Trade Name Freq PRN Reason Stop Dose Admin Acetaminophen 650 mg 02/19/21 13:30 Acetaminophen Tab 325 Mg Tab PO Q6HR PRN Fever and/ or Pain Albuterol/Ipratropium 3 ml 02/19/21 06:57 Ipratropium-Albuterol 3 Ml Neb INHALATION RT-Q4H PRN shortness of breath Azithromycin 500 mg 02/20/21 09:00 Azithromycin 500 Mg Tab PO 02/24/21 09:01 DAILY ALEXEY Ceftriaxone Sodium 2 gm/ 50 mls @ 100 mls/hr 02/20/21 09:00 Sodium Chloride IVPB 02/22/21 09:01 Q24HR ALEXEY Miscellaneous Information 1 each 02/19/21 06:57 Pneumonia Protocol Utilized 1 Each Misc PO ONCE PRN Per Protocol Intake and Output 02/18/21 02/19/21 02/19/21 22:59 06:59 14:59 Other: Weight 99.337 kg 99.337 kg Patient Weight 02/20/21 06:59 Weight 99.337 kg 02/19/21 05:45 02/19/21 05:45
[2021-02-20] MEDS ORDERED: GLIMEPIRIDE 1 MG TAB PO SCH (15:30)
--- NOTE | 2021-02-20 15:33 | P.PN ---
Subjective Progress Note Date: 02/20/21 Cristo Perez is a 76 yo M with PMH of COPD, CAD, hx MD, T2DM who presented to the ED complaining of worsening shortness of breath and weakness. He complains that over the past few days he has become more fatigued and now is experiencing a cough and chest pain. He denies any radiation. He feels his back pain has been worsened as well. Denies any inciting factors. No fever or chills. He denies any falls at home. On presentation he was hypoxic, BP stable, WBC 4.9k, COVID positive, trop 0.062. CXR with gisselle lower lobe infiltrates. 02/20/2021 continues on Covid regimen and Zithromax. vancomycin added to her regimen secondary to bacteremia with gram-positive cocci, cultures recently reporting coagulase-negative staph. Complaints of nonradiating burning chest pain present with nonproductive cough. Complains of fatigue. Maintaining O2 sats in the 90s on 3 L nasal cannula. Denies nausea vomiting or diarrhea. Afebrile, T-max 100.2. D-dimer 1.01, with increased LDH 424 and CRP 46.5. Chest x-ray reporting patchy basilar density noted, right hemidiaphragm elevated, aorta dense. echo completed, results pending. Evaluated by cardiology with recommendations noted and appreciated. Hyperglycemic Objective - Vital Signs Vital signs: Vital Signs Temp 98.3 F 02/20/21 07:00 Pulse 99 02/20/21 07:00 Resp 18 02/20/21 07:20 BP 165/85 02/20/21 07:00 Pulse Ox 99 02/20/21 07:00 Intake & Output 02/19/21 02/20/21 02/20/21 18:59 06:59 18:59 Intake Total 200 800 Output Total 100 Balance 100 800 Weight 99.337 kg Intake: Intake, IV Titration 800 Amount cefTRIAXone 2 gm In 800 Sodium Chloride 0.9% 50 ml @ 100 mls/hr IVPB Q24HR [facility] Rx#:[id number] Oral 200 Output: Urine 100 Other: # Voids 1 4 # Bowel Movements 3 - Exam Gen: well developed, well nourished, NAD HEENT: normocephalic, atraumatic, mucus membranes moist Neck: supple, no JVD or thyromegaly CV: RRR, no murmur, pulses 2+ Lungs: normal effort, clear throughout Abd: soft, nontender, non distended, positive bowel sounds Neuro: alert and oriented x3, no focal deficit Skin: warm and dry Microbiology 02/19/21 07:30 Blood Blood Culture - Preliminary No Growth after 24 hours 02/19/21 07:47 Blood Blood Culture Gram Stain - Preliminary 02/19/21 07:47 Blood Blood Culture - Preliminary Coagulase Negative Staph 02/19/21 07:47 Blood Blood Culture - Final - Labs CBC & Chem 7: 02/19/21 05:45 02/20/21 05:12 Labs: Abnormal Lab Results - Last 24 Hours (Table) 02/19/21 02/19/21 02/19/21 Range/Units 16:59 17:35 20:32 D-Dimer (<0.60) mg/L FEU Est GFR (CKD-EPI)NonAf (60.0-200.0) POC Glucose (mg/dL) 137 H 220 H (75-99) mg/dL Troponin I 0.047 H* (0.000-0.034) ng/mL C-Reactive Protein (<10.0) mg/L 02/20/21 02/20/21 02/20/21 Range/Units 05:12 07:14 10:29 D-Dimer 1.01 H (<0.60) mg/L FEU Est GFR (CKD-EPI)NonAf 53.0 L (60.0-200.0) POC Glucose (mg/dL) 146 H (75-99) mg/dL Troponin I (0.000-0.034) ng/mL C-Reactive Protein (<10.0) mg/L 02/20/21 02/20/21 Range/Units 10:29 11:52 D-Dimer (<0.60) mg/L FEU Est GFR (CKD-EPI)NonAf (60.0-200.0) POC Glucose (mg/dL) 281 H (75-99) mg/dL Troponin I (0.000-0.034) ng/mL C-Reactive Protein 46.5 H (<10.0) mg/L Microbiology - Last 24 Hours (Table) 02/19/21 07:30 Blood Culture - Preliminary Blood No Growth after 24 hours 02/19/21 07:47 Blood Culture Gram Stain - Preliminary Blood Blood Culture - Preliminary Coagulase Negative Staph 02/19/21 07:47 Blood Culture - Final Blood Assessment and Plan Assessment: 1. Severe sepsis, secondary to COVID pneumonia,staph bacteremia-cultures f inalizing 2. Elevated troponin. Hx CAD. Suspect demand ischemia. Cardiology following. 3. T2DM 4. CAD, history of CABG 5. Hypertension 6. Dyslipidemia Plan: Continue on current medication regime ,monitoring and symptomatic treatment. Potassium 5.6 yesterday with repeat potassium pending. Continue on covid cocktail, antibiotics. Infectious disease consult in place with recommendations pending. Home Lantus resumed, close monitoring of Accu-Cheks The impression and plan of care has been dictated as directed. : I performed a history and examination of this patient, discussed the same with the dictator. I agree with the dictator's note ,documented as a scribe. Any additional findings or plans will be noted.
[2021-02-20 17:15] LABS: Glucose,Whole Blood 263 mg/dL (75-99)
[2021-02-20 20:36] LABS: Glucose,Whole Blood 190 mg/dL (75-99)
[2021-02-20 20:54] LABS: Ferritin 486.4 ng/mL (22.0-322.0)
[2021-02-20] MEDS ORDERED: VANCOMYCIN 1,750 MG in SODIUM CHLORIDE 0.9% 500 ML 500 ML IVPB SCH (21:00)
[2021-02-20] MEDS: ATORVASTATIN 20 MG TAB PO SCH (21:22)
[2021-02-20] MEDS: LOSARTAN 25 MG TAB PO SCH (21:22)
[2021-02-20] MEDS: TAMSULOSIN 0.4 MG CAP.ER.24H PO SCH (21:23)
[2021-02-20] MEDS: INSULIN DETEMIR (LEVEMIR) 100 UNIT/ML SYR SQ SCH (21:23)
[2021-02-20] MEDS ORDERED: REMDESIVIR 200 MG in SODIUM CHLORIDE 0.9% 250 ML IVPB ONE (23:27)
[2021-02-21] MEDS: HYDROcodone/APAP 5-325MG 1 EACH TAB PO PRN ×2 (03:35→20:11)
[2021-02-21] MEDS ORDERED: VANCOMYCIN 1,750 MG in SODIUM CHLORIDE 0.9% 500 ML 500 ML IVPB SCH (05:00)
--- NOTE | 2021-02-21 06:15 | CONS ---
CONSULTATION DATE OF SERVICE: 02/20/2021 REASON FOR CONSULTATION: COVID and bacteremia. HISTORY OF PRESENT ILLNESS: The patient is a 76-year-old man who presented to the hospital yesterday morning for evaluation of increasing shortness of breath and weakness. The patient's symptoms have been going on for a few days, less than one week, and has been mostly fatigue and no energy and subsequently having shortness of breath on exertion. He did have a cough which has been moderate in intensity but not bringing up any sputum. No chest pain. Some nausea but no vomiting, decreased oral intake, and did have some diarrhea. With these symptoms, the patient has been evaluated by the ER physician. On arrival to the ER the patient did have a low-grade fever of 100.2 degrees Fahrenheit. The patient has been hypoxic at 93% on room air. The patient did have a normal white count with lymphopenia. Did have elevated CRP. Mendez PCR came back positive. The patient did have a chest x-ray with evidence of bilateral infiltrate. He also had blood cultures done which came positive with gram-positive cocci and subsequently coagulase negative staph. Patient has been treated with vancomycin. Infectious Disease was consulted for further management of antibiotics and positive COVID test. REVIEW OF SYSTEMS: Positive points have been mentioned in HPI. Rest of systems are negative. PAST MEDICAL HISTORY: Coronary artery disease, COPD, diabetes mellitus, hypertension, hyperlipidemia, ID, prostate disorder, syncope. PAST SURGICAL HISTORY: Coronary artery bypass grafting, pacemaker placement, prostate surgery. SOCIAL HISTORY: Remote history of smoking. No drinking or drug use. FAMILY HISTORY: Mother with history of coronary artery disease and diabetes. ALLERGIES: No known drug allergies. MEDICATIONS: The patient is currently on Tylenol, [place], Ventolin, vitamin C, aspirin, Lipitor, Zithromax, dexamethasone, Lovenox, Proscar, Neurontin, NovoLog, Levemir, Cozaar, vancomycin and zinc sulfate. PHYSICAL EXAMINATION: VITAL SIGNS: Blood pressure 132/68 with a pulse of 67, temperature 98.1, he is 93% on room air. GENERAL DESCRIPTION: Patient is an elderly male lying in bed in no distress. No tachypnea or accessory muscles of respiration use. HEENT: Examination shows no pallor or scleral icterus. Oral mucous membrane is dry. NECK: Trachea central, no thyromegaly. LUNGS: Unlabored breathing, decreased intensity of breath sounds, no wheeze. HEART: S1-S2, regular rate and rhythm. ABDOMEN: Soft, no tenderness. No guarding or rigidity. EXTREMITIES: No edema of the feet. SKIN: No rash or mass palpable. NEUROLOGICAL: Patient is awake, alert, oriented times three. Mood and affect normal. LABS: Hemoglobin is 13.8, white count 4.9, BUN of 10, creatinine is 1.3. Troponin slightly elevated. Mendez PCR positive. Chest x-ray, bilateral infiltrate. DIAGNOSTIC IMPRESSION AND PLAN: Patient with admission to hospital with increasing shortness of breath and cough in this patient who did have generalized weakness, fatigued with evidence of bilateral infiltrate and leukopenia likely secondary to acute COVID-19 pneumonia with clinically no suspicion for secondary bacteremia . Positive blood culture with with coagulase negative Staph likely skin contaminant. PLAN: 1. Discontinue the vancomycin. 2. We will start the patient on remdesivir 200 mg times one and then 100 mg daily and continue with dexamethasone, Lovenox, zinc and ascorbic acid. 3. Droplet isolation and respiratory support. 4. We will follow on clinical condition and culture to further adjust medication if needed. Thank you for this consultation. Will follow this patient along with you. MMODL / IJN: [id number] /
[2021-02-21] MEDS: ALBUTEROL HFA INHALER INHALATION PRN ×2 (07:28→10:52)
[2021-02-21 07:35] LABS: Glucose,Whole Blood 126 mg/dL (75-99)
[2021-02-21] MEDS: ASCORBIC ACID 500 MG TAB PO SCH (08:19)
[2021-02-21] MEDS: ASPIRIN 81 MG PO SCH (08:19)
[2021-02-21] MEDS: DEXAMETHASONE SOD PHOSPHATE 10 MG/ML 1 ML VIAL IV SCH (08:19)
[2021-02-21] MEDS: ENOXAPARIN 40 MG/0.4 ML SYRINGE SQ SCH (08:20)
[2021-02-21] MEDS: ZINC SULFATE 220 MG CAP PO SCH (08:20)
[2021-02-21] MEDS: SERTRALINE 50 MG TAB PO SCH (08:20)
[2021-02-21] MEDS: CHOLECALCIFEROL 25 MCG (1000 IU) TABLET PO SCH (08:20)
[2021-02-21] MEDS: INSULIN ASPART (NovoLOG) 100 UNIT/ML VIAL SQ SCH ×4 (08:20→21:08)
[2021-02-21] MEDS: FINASTERIDE 5 MG TAB PO SCH (08:20)
[2021-02-21] MEDS: AZITHROMYCIN 500 MG TAB PO SCH (08:20)
[2021-02-21 09:43] LABS: African American GFR (CKD) 61.4 (60.0-200.0); BUN/Creat Ratio 21.54 Ratio (12.00-20.00); Calcium 8.3 mg/dL (8.7-10.3); Potassium 4.6 mmol/L (3.5-5.5)
[2021-02-21 10:56] LABS: Basophils # (A) 0 X 10*3/uL (0.00-0.10); Basophils % (A) 0 %; Eosinophils # (A) 0 X 10*3/uL (0.04-0.35); Eosinophils % (A) 0 %; HCT 35.1 % (39.6-50.0); HGB 10.8 g/dL (13.0-17.0); Lymphocytes # (A) 0.43 X 10*3/uL (0.90-5.00); Lymphocytes % (A) 11.1 %; MCH 28.9 pg (27.0-32.0); MCHC 30.8 g/dL (32.0-37.0); MCV 93.9 fL (80.0-97.0); Mean Platelet Volume 11.1 fL (9.5-12.2); Monocytes # (A) 0.31 X 10*3/uL (0.20-1.00); Neutrophils # (A) 3.11 X 10*3/uL (1.80-7.70); Neutrophils % (A) 80.4 %; Platelet Count 97 X 10*3/uL (140-440); RBC 3.74 X 10*6/uL (4.40-5.60); RDW 14.9 % (11.5-14.5); WBC 3.87 X 10*3/uL (4.50-10.00)
[2021-02-21 12:06] LABS: Glucose,Whole Blood 135 mg/dL (75-99)
--- NOTE | 2021-02-21 14:22 | P.PN ---
Subjective Progress Note Date: 02/21/21 Cristo Perez is a 76 yo M with PMH of COPD, CAD, hx AL, T2DM who presented to the ED complaining of worsening shortness of breath and weakness. He complains that over the past few days he has become more fatigued and now is experiencing a cough and chest pain. He denies any radiation. He feels his back pain has been worsened as well. Denies any inciting factors. No fever or chills. He denies any falls at home. On presentation he was hypoxic, BP stable, WBC 4.9k, COVID positive, trop 0.062. CXR with gisselle lower lobe infiltrates. 02/20/2021 continues on Covid regimen and Zithromax. vancomycin added to his regimen secondary to bacteremia with gram-positive cocci, cultures recently reporting coagulase-negative staph. Complaints of nonradiating burning chest pain present with nonproductive cough. Complains of fatigue. Maintaining O2 sats in the 90s on 3 L nasal cannula. Denies nausea vomiting or diarrhea. Afebrile, T-max 100.2. D-dimer 1.01, with increased LDH 424 and CRP 46.5. Chest x-ray reporting patchy basilar density noted, right hemidiaphragm elevated, aorta dense. echo completed, results pending. Evaluated by cardiology with recommendations noted and appreciated. Hyperglycemic 02/21/2021 maintained on antibiotics, Covid regimen including Remdesevir.. Sitting up at bedside, moist loose couogh, feels better. Denies chest pain, palpitations or increasing shortness of breath . Maintaining O2 sats in the 90s on room air . Afebrile. Blood sugars controlled. Evaluated by infectious disease with recommendations noted and appreciated. Objective - Vital Signs Vital signs: Vital Signs Temp 98.5 F 02/21/21 07:00 Pulse 65 02/21/21 07:00 Resp 18 02/21/21 08:00 BP 161/79 02/21/21 07:00 Pulse Ox 90 L 02/21/21 07:00 Intake & Output 02/20/21 02/21/21 02/21/21 18:59 06:59 18:59 Intake Total 250 Output Total 600 200 Balance -600 50 Intake: Oral 250 Output: Urine 600 200 Other: # Voids 4 3 # Bowel Movements 3 1 - Exam Gen: Sitting up at bedside ,NAD HEENT: normocephalic, atraumatic, mucus membranes moist Neck: supple, no JVD or thyromegaly CV: RRR, no murmur, pulses 2+ Lungs: normal effort, clear throughout Abd: soft, nontender, non distended, positive bowel sounds Neuro: alert and oriented x3, no focal deficit Skin: warm and dry Microbiology 02/20/21 10:29 Blood Blood Culture - Preliminary No Growth after 24 hours 02/19/21 07:30 Blood Blood Culture - Preliminary No Growth after 48 hours 02/19/21 07:47 Blood Blood Culture Gram Stain - Final 02/19/21 07:47 Blood Blood Culture - Final Coagulase Negative Staph 02/19/21 07:47 Blood Blood Culture - Final - Labs CBC & Chem 7: 02/21/21 06:05 02/21/21 06:05 Labs: Abnormal Lab Results - Last 24 Hours (Table) 02/20/21 02/20/21 02/20/21 Range/Units 10:29 10:29 15:23 WBC (4.50-10.00) X 10*3/uL RBC (4.40-5.60) X 10*6/uL Hgb (13.0-17.0) g/dL Hct (39.6-50.0) % MCHC (32.0-37.0) g/dL RDW (11.5-14.5) % Plt Count (140-440) X 10*3/uL Plt Count Comment Lymphocytes # (0.90-5.00) X 10*3/uL Eosinophils # (0.04-0.35) X 10*3/uL Potassium 5.2 H (3.5-5.1) mmol/L Carbon Dioxide (21.6-31.8) mmol/L BUN (9.0-27.0) mg/dL Est GFR (CKD-EPI)NonAf (60.0-200.0) BUN/Creatinine Ratio (12.00-20.00) Ratio Glucose (70-110) mg/dL POC Glucose (mg/dL) (75-99) mg/dL Calcium (8.7-10.3) mg/dL Ferritin 486.4 H (22.0-322.0) ng/mL Procalcitonin 0.12 H (0.02-0.09) ng/mL 02/20/21 02/20/21 02/21/21 Range/Units 17:11 20:35 06:05 WBC (4.50-10.00) X 10*3/uL RBC (4.40-5.60) X 10*6/uL Hgb (13.0-17.0) g/dL Hct (39.6-50.0) % MCHC (32.0-37.0) g/dL RDW (11.5-14.5) % Plt Count (140-440) X 10*3/uL Plt Count Comment Lymphocytes # (0.90-5.00) X 10*3/uL Eosinophils # (0.04-0.35) X 10*3/uL Potassium (3.5-5.1) mmol/L Carbon Dioxide 20.0 L (21.6-31.8) mmol/L BUN 28.0 H (9.0-27.0) mg/dL Est GFR (CKD-EPI)NonAf 53.0 L (60.0-200.0) BUN/Creatinine Ratio 21.54 H (12.00-20.00) Ratio Glucose 124 H (70-110) mg/dL POC Glucose (mg/dL) 263 H 190 H (75-99) mg/dL Calcium 8.3 L (8.7-10.3) mg/dL Ferritin (22.0-322.0) ng/mL Procalcitonin (0.02-0.09) ng/mL 02/21/21 02/21/21 02/21/21 Range/Units 06:05 07:32 12:04 WBC 3.87 L (4.50-10.00) X 10*3/uL RBC 3.74 L (4.40-5.60) X 10*6/uL Hgb 10.8 L (13.0-17.0) g/dL Hct 35.1 L (39.6-50.0) % MCHC 30.8 L (32.0-37.0) g/dL RDW 14.9 H (11.5-14.5) % Plt Count 97 L (140-440) X 10*3/uL Plt Count Comment DECREASED A Lymphocytes # 0.43 L (0.90-5.00) X 10*3/uL Eosinophils # 0 L (0.04-0.35) X 10*3/uL Potassium (3.5-5.1) mmol/L Carbon Dioxide (21.6-31.8) mmol/L BUN (9.0-27.0) mg/dL Est GFR (CKD-EPI)NonAf (60.0-200.0) BUN/Creatinine Ratio (12.00-20.00) Ratio Glucose (70-110) mg/dL POC Glucose (mg/dL) 126 H 135 H (75-99) mg/dL Calcium (8.7-10.3) mg/dL Ferritin (22.0-322.0) ng/mL Procalcitonin (0.02-0.09) ng/mL Microbiology - Last 24 Hours (Table) 02/20/21 10:29 Blood Culture - Preliminary Blood No Growth after 24 hours 02/19/21 07:30 Blood Culture - Preliminary Blood No Growth after 48 hours 02/19/21 07:47 Blood Culture Gram Stain - Final Blood Blood Culture - Final Coagulase Negative Staph Assessment and Plan Assessment: 1. Severe sepsis, secondary to COVID pneumonia, blood cultures reporting coagulase-negative staph-suspect skin contaminant. 2. Elevated troponin. Hx CAD. Suspect demand ischemia. Cardiology following. 3. T2DM 4. CAD, history of CABG 5. Hypertension 6. Dyslipidemia Plan: Continue on current medication regime ,monitoring and symptomatic treatment. Covid cocktail, antibiotics. Discharge planning pending completion of Remdesevir. The impression and plan of care has been dictated as directed. : I performed a history and examination of this patient, discussed the same with the dictator. I agree with the dictator's note ,documented as a scribe. Any additional findings or plans will be noted.
--- NOTE | 2021-02-21 15:48 | PN ---
PROGRESS NOTE DATE OF SERVICE: 02/21/2021 REASON FOR FOLLOWUP: 1. COVID-19 pneumonia. 2. Positive blood culture. INTERVAL HISTORY: The patient is currently afebrile. The patient is breathing slightly comfortably. The patient denies having any chest pain, shortness of breath or cough. No abdominal pain or diarrhea. PHYSICAL EXAMINATION: Blood pressure 161/79 with a pulse of 55, temperature 98.5. He is 90% on room air. General description is an elderly male lying in bed in no distress. RESPIRATORY SYSTEM: Unlabored breathing with decreased intensity of breath sounds. No wheeze. HEART: S1, S2. Regular rate and rhythm. ABDOMEN: Soft. No tenderness. LABS: Hemoglobin is 10.8, white count 3.87. Creatinine is 1.3. Blood culture repeat so far negative. DIAGNOSTIC IMPRESSION AND PLAN: 1. Patient with positive blood culture with coagulase-negative staph, likely skin contamination, as no evidence of any clinical infection with this pathogen. The patient is off vancomycin. Repeat blood culture negative. 2. Patient with COVID-19 infection. Patient started on remdesivir; to continue along with zinc, vitamin C, Lovenox, dexamethasone, and continue with supportive care. MMODL / IJN: [id number] /
[2021-02-21 16:19] LABS: Hemoglobin A1C 6.3 % (4.0-6.0)
[2021-02-21 17:29] LABS: Glucose,Whole Blood 212 mg/dL (75-99)
[2021-02-21] MEDS: LOSARTAN 25 MG TAB PO SCH (20:04)
[2021-02-21] MEDS: ATORVASTATIN 20 MG TAB PO SCH (20:05)
[2021-02-21] MEDS: TAMSULOSIN 0.4 MG CAP.ER.24H PO SCH (20:05)
[2021-02-21] MEDS: ACETAMINOPHEN TAB 325 MG TAB PO PRN (20:10)
[2021-02-21 20:15] LABS: Glucose,Whole Blood 181 mg/dL (75-99)
[2021-02-21] MEDS: INSULIN DETEMIR (LEVEMIR) 100 UNIT/ML SYR SQ SCH (21:08)
[2021-02-21] MEDS: REMDESIVIR 100 MG in SODIUM CHLORIDE 0.9% 250 ML IVPB SCH (22:35)
[2021-02-22] MEDS: HYDROcodone/APAP 5-325MG 1 EACH TAB PO PRN ×2 (04:27→20:42)
[2021-02-22 07:26] LABS: Glucose,Whole Blood 111 mg/dL (75-99)
[2021-02-22] MEDS: ALBUTEROL HFA INHALER INHALATION PRN ×2 (08:10→12:05)
[2021-02-22] MEDS: ENOXAPARIN 40 MG/0.4 ML SYRINGE SQ SCH (08:49)
[2021-02-22] MEDS: AZITHROMYCIN 500 MG TAB PO SCH (08:50)
[2021-02-22] MEDS: ASPIRIN 81 MG PO SCH (08:50)
[2021-02-22] MEDS: CHOLECALCIFEROL 25 MCG (1000 IU) TABLET PO SCH (08:50)
[2021-02-22] MEDS: ASCORBIC ACID 500 MG TAB PO SCH (08:50)
[2021-02-22] MEDS: SERTRALINE 50 MG TAB PO SCH (08:50)
[2021-02-22] MEDS: ZINC SULFATE 220 MG CAP PO SCH (08:50)
[2021-02-22] MEDS: DEXAMETHASONE SOD PHOSPHATE 10 MG/ML 1 ML VIAL IV SCH (08:51)
[2021-02-22 09:09] LABS: Basophils # (A) 0 X 10*3/uL (0.00-0.10); Basophils % (A) 0 %; Eosinophils # (A) 0 X 10*3/uL (0.04-0.35); Eosinophils % (A) 0 %; HCT 37.9 % (39.6-50.0); Lymphocytes # (A) 0.45 X 10*3/uL (0.90-5.00); Lymphocytes % (A) 12.5 %; MCH 29.4 pg (27.0-32.0); MCHC 31.7 g/dL (32.0-37.0); MCV 92.9 fL (80.0-97.0); Monocytes # (A) 0.34 X 10*3/uL (0.20-1.00); Monocytes % (A) 9.4 %; Neutrophils # (A) 2.79 X 10*3/uL (1.80-7.70); Neutrophils % (A) 77.3 %; Platelet Count 108 X 10*3/uL (140-440); RBC 4.08 X 10*6/uL (4.40-5.60); RDW 14.9 % (11.5-14.5); WBC 3.61 X 10*3/uL (4.50-10.00)
[2021-02-22 09:30] LABS: African American GFR (CKD) 75.2 (60.0-200.0); BUN/Creat Ratio 24.55 Ratio (12.00-20.00); Calcium 8.4 mg/dL (8.7-10.3); Non-African American GFR(CKD) 64.9 (60.0-200.0)
[2021-02-22] MEDS: INSULIN ASPART (NovoLOG) 100 UNIT/ML VIAL SQ SCH ×4 (09:47→20:43)
[2021-02-22] MEDS: FINASTERIDE 5 MG TAB PO SCH (09:48)
[2021-02-22 11:22] LABS: Glucose,Whole Blood 152 mg/dL (75-99)
--- NOTE | 2021-02-22 15:13 | P.PN ---
Subjective Progress Note Date: 02/22/21 Cristo Perez is a 76 yo M with PMH of COPD, CAD, hx [place], T2DM who presented to the ED complaining of worsening shortness of breath and weakness. He complains that over the past few days he has become more fatigued and now is experiencing a cough and chest pain. He denies any radiation. He feels his back pain has been worsened as well. Denies any inciting factors. No fever or chills. He denies any falls at home. On presentation he was hypoxic, BP stable, WBC 4.9k, COVID positive, trop 0.062. CXR with gisselle lower lobe infiltrates. 02/20/2021 continues on Covid regimen and Zithromax. vancomycin added to his regimen secondary to bacteremia with gram-positive cocci, cultures recently reporting coagulase-negative staph. Complaints of nonradiating burning chest pain present with nonproductive cough. Complains of fatigue. Maintaining O2 sats in the 90s on 3 L nasal cannula. Denies nausea vomiting or diarrhea. Afebrile, T-max 100.2. D-dimer 1.01, with increased LDH 424 and CRP 46.5. Chest x-ray reporting patchy basilar density noted, right hemidiaphragm elevated, aorta dense. echo completed, results pending. Evaluated by cardiology with recommendations noted and appreciated. Hyperglycemic 02/21/2021 maintained on antibiotics, Covid regimen including Remdesevir.. Sitting up at bedside, moist loose couogh, feels better. Denies chest pain, palpitations or increasing shortness of breath . Maintaining O2 sats in the 90s on room air . Afebrile. Blood sugars controlled. Evaluated by infectious disease with recommendations noted and appreciated. 02/22/2021 respiratory status continues to improve, maintaining O2 sats in the 90s on room air. Positive diarrhea-improving. afebrile, T-max 100.5. Blood sugars better controlled. Objective - Vital Signs Vital signs: Vital Signs Temp 98.1 F 02/22/21 14:30 Pulse 70 02/22/21 14:30 Resp 20 02/22/21 14:30 BP 172/57 02/22/21 14:30 Pulse Ox 90 L 02/22/21 14:30 Intake & Output 02/21/21 02/22/21 02/22/21 18:59 06:59 18:59 Intake Total 600 480 Output Total 1 202 Balance -1 398 480 Intake: Oral 600 480 Output: Urine 200 Stool 1 2 Other: Voiding Method Toilet Toilet Bedside Commode Bedside Commode Urinal Urinal Diaper Diaper # Voids 4 1 1 # Bowel Movements 1 - Exam Gen: Sitting up at bedside ,NAD HEENT: normocephalic, atraumatic, mucus membranes moist Neck: supple, no JVD or thyromegaly CV: RRR, no murmur, pulses 2+ Lungs: normal effort, clear throughout Abd: soft, nontender, non distended, positive bowel sounds Neuro: alert and oriented x3, no focal deficit Skin: warm and dry Microbiology 02/20/21 10:29 Blood Blood Culture - Preliminary No Growth after 48 hours 02/19/21 07:30 Blood Blood Culture - Preliminary No Growth after 72 hours 02/21/21 11:00 Sputum Gram Stain - Preliminary 02/21/21 11:00 Sputum Sputum Culture - Preliminary 02/19/21 07:47 Blood Blood Culture Gram Stain - Final 02/19/21 07:47 Blood Blood Culture - Final Coagulase Negative Staph 02/19/21 07:47 Blood Blood Culture - Final - Labs CBC & Chem 7: 02/22/21 05:29 02/22/21 05:29 Labs: Abnormal Lab Results - Last 24 Hours (Table) 02/21/21 02/21/21 02/21/21 Range/Units 06:05 17:27 20:14 WBC (4.50-10.00) X 10*3/uL RBC (4.40-5.60) X 10*6/uL Hgb (13.0-17.0) g/dL Hct (39.6-50.0) % MCHC (32.0-37.0) g/dL RDW (11.5-14.5) % Plt Count (140-440) X 10*3/uL Lymphocytes # (0.90-5.00) X 10*3/uL Eosinophils # (0.04-0.35) X 10*3/uL BUN/Creatinine Ratio (12.00-20.00) Ratio Glucose (70-110) mg/dL POC Glucose (mg/dL) 212 H 181 H (75-99) mg/dL Hemoglobin A1c 6.3 H (4.0-6.0) % Calcium (8.7-10.3) mg/dL 02/22/21 02/22/21 02/22/21 Range/Units 05:29 05:29 07:02 WBC 3.61 L (4.50-10.00) X 10*3/uL RBC 4.08 L (4.40-5.60) X 10*6/uL Hgb 12.0 L (13.0-17.0) g/dL Hct 37.9 L (39.6-50.0) % MCHC 31.7 L (32.0-37.0) g/dL RDW 14.9 H (11.5-14.5) % Plt Count 108 L (140-440) X 10*3/uL Lymphocytes # 0.45 L (0.90-5.00) X 10*3/uL Eosinophils # 0 L (0.04-0.35) X 10*3/uL BUN/Creatinine Ratio 24.55 H (12.00-20.00) Ratio Glucose 126 H (70-110) mg/dL POC Glucose (mg/dL) 111 H (75-99) mg/dL Hemoglobin A1c (4.0-6.0) % Calcium 8.4 L (8.7-10.3) mg/dL 02/22/21 Range/Units 11:15 WBC (4.50-10.00) X 10*3/uL RBC (4.40-5.60) X 10*6/uL Hgb (13.0-17.0) g/dL Hct (39.6-50.0) % MCHC (32.0-37.0) g/dL RDW (11.5-14.5) % Plt Count (140-440) X 10*3/uL Lymphocytes # (0.90-5.00) X 10*3/uL Eosinophils # (0.04-0.35) X 10*3/uL BUN/Creatinine Ratio (12.00-20.00) Ratio Glucose (70-110) mg/dL POC Glucose (mg/dL) 152 H (75-99) mg/dL Hemoglobin A1c (4.0-6.0) % Calcium (8.7-10.3) mg/dL Microbiology - Last 24 Hours (Table) 02/20/21 10:29 Blood Culture - Preliminary Blood No Growth after 48 hours 02/19/21 07:30 Blood Culture - Preliminary Blood No Growth after 72 hours 02/21/21 11:00 Gram Stain - Preliminary Sputum Sputum Culture - Preliminary Assessment and Plan Assessment: 1. Severe sepsis, secondary to COVID pneumonia, blood cultures reporting coagulase-negative staph-suspect skin contaminant. 2. Elevated troponin. Hx CAD. Suspect demand ischemia. Cardiology following. 3. T2DM 4. CAD, history of CABG 5. Hypertension 6. Dyslipidemia Plan: Continue on current medication regime ,monitoring and symptomatic treatment. Covid cocktail, antibiotics. Discharge planning pending possibly as soon as tomorrow pending ID DC recommendations and clearance. The impression and plan of care has been dictated as directed. : I performed a history and examination of this patient, discussed the same with the dictator. I agree with the dictator's note ,documented as a scribe. Any additional findings or plans will be noted.
[2021-02-22 16:52] LABS: Glucose,Whole Blood 280 mg/dL (75-99)
[2021-02-22] MEDS: CHOLESTYRAMINE (WITH SUGAR) 4 GM PACKET PO SCH (18:22)
--- NOTE | 2021-02-22 19:17 | PN ---
PROGRESS NOTE DATE OF SERVICE: 02/22/2021 REASON FOR FOLLOWUP: COVID-19 pneumonia. INTERVAL HISTORY: The patient is currently afebrile. Patient is breathing comfortably, currently on room air. The patient denies having any chest pain. He continues to have a cough and is complaining of having bowel movement with each episode of coughing. No chest pain. No abdominal pain and no vomiting. PHYSICAL EXAMINATION: Blood pressure 172/57, pulse of 70, temperature of 98.1. He is 90% on room air. General description is an elderly male lying in bed in no distress. RESPIRATORY SYSTEM: Unlabored breathing with decreased intensity of breath sounds. No wheeze. HEART: S1, S2. Regular rate and rhythm. ABDOMEN: Soft. No tenderness. LABS: Hemoglobin is 12, white count 3.61. BUN of 27, creatinine 1.1. DIAGNOSTIC IMPRESSION AND PLAN: 1. Patient with pneumonia secondary to acute COVID-19 infection in this patient currently covered with remdesivir, dexamethasone, Lovenox, zinc, ascorbic acid; to continue. 2. Patient with diarrhea. Will add Questran for symptomatic relief. 3. Positive blood culture, likely skin contamination. No need for further workup for the same. MMODL / IJN: [id number] / MTDD
[2021-02-22 20:02] LABS: Glucose,Whole Blood 207 mg/dL (75-99)
[2021-02-22] MEDS: TAMSULOSIN 0.4 MG CAP.ER.24H PO SCH (20:43)
[2021-02-22] MEDS: LOSARTAN 25 MG TAB PO SCH (20:43)
[2021-02-22] MEDS: ATORVASTATIN 20 MG TAB PO SCH (20:43)
[2021-02-22] MEDS: INSULIN DETEMIR (LEVEMIR) 100 UNIT/ML SYR SQ SCH (20:43)
[2021-02-22 21:13] VITALS: RESP 18
[2021-02-22] MEDS: REMDESIVIR 100 MG in SODIUM CHLORIDE 0.9% 250 ML IVPB SCH (22:40)
[2021-02-23] MEDS: INSULIN ASPART (NovoLOG) 100 UNIT/ML VIAL SQ SCH ×2 (07:21→12:17)
[2021-02-23 07:26] LABS: Glucose,Whole Blood 122 mg/dL (75-99)
[2021-02-23 08:30] VITALS: BP 160/72; PULSE 60; TEMP 98.1
[2021-02-23] MEDS: ENOXAPARIN 40 MG/0.4 ML SYRINGE SQ SCH (09:05)
[2021-02-23] MEDS: FINASTERIDE 5 MG TAB PO SCH (09:05)
[2021-02-23] MEDS: ASCORBIC ACID 500 MG TAB PO SCH (09:05)
[2021-02-23] MEDS: ASPIRIN 81 MG PO SCH (09:05)
[2021-02-23] MEDS: AZITHROMYCIN 500 MG TAB PO SCH (09:05)
[2021-02-23] MEDS: ZINC SULFATE 220 MG CAP PO SCH (09:05)
[2021-02-23] MEDS: CHOLECALCIFEROL 25 MCG (1000 IU) TABLET PO SCH (09:05)
[2021-02-23] MEDS: SERTRALINE 50 MG TAB PO SCH (09:05)
[2021-02-23] MEDS: DEXAMETHASONE SOD PHOSPHATE 10 MG/ML 1 ML VIAL IV SCH (09:06)
[2021-02-23] MEDS: CHOLESTYRAMINE (WITH SUGAR) 4 GM PACKET PO SCH (09:07)
[2021-02-23 12:15] LABS: Glucose,Whole Blood 109 mg/dL (75-99)
--- NOTE | 2021-02-23 14:31 | P.DS ---
Providers Date of admission: 02/20/21 08:46 Expected date of discharge: 02/23/21 Attending physician: Nhan Adam MD Consults: 02/19/21 13:22 Consult Physician Stat Consulting Provider: Yordan Chacon Consult Reason/Comments: elevated trop Do you want consulting provider notified?: Yes 02/20/21 08:20 Consult Physician Routine Consulting Provider: Eddie Roche Consult Reason/Comments: COVID; bacteremia Do you want consulting provider notified?: Yes Primary care physician: Della Grant Hospital Course: Final Diagnoses: 1. Severe sepsis, secondary to COVID pneumonia, blood cultures reporting coagulase-negative staph-suspect skin contaminant. 2. Elevated troponin, in a patient with history of CAD, Secondary to Covid infection as per cardiology with no signs of ischemia. 3. T2DM 4. CAD, history of CABG 5. Hypertension 6. Dyslipidemia Hospital course:Cristo Perez is a 76 yo M with PMH of COPD, CAD, hx CT, T2DM who presented to the ED complaining of worsening shortness of breath and weakness. He complains that over the past few days he has become more fatigued and now is experiencing a cough and chest pain. He denies any radiation. He fee ls his back pain has been worsened as well. Denies any inciting factors. No fever or chills. He denies any falls at home. On presentation he was hypoxic, BP stable, WBC 4.9k, COVID positive, trop 0.062. CXR with gisselle lower lobe infiltrates. 02/20/2021 continues on Covid regimen and Zithromax. vancomycin added to his regimen secondary to bacteremia with gram-positive cocci, cultures recently reporting coagulase-negative staph. Complaints of nonradiating burning chest pain present with nonproductive cough. Complains of fatigue. Maintaining O2 sats in the 90s on 3 L nasal cannula. Denies nausea vomiting or diarrhea. Afebrile, T-max 100.2. D-dimer 1.01, with increased LDH 424 and CRP 46.5. Chest x-ray reporting patchy basilar density noted, right hemidiaphragm elevated, aorta dense. echo completed, results pending. Evaluated by cardiology with recommendations noted and appreciated. Hyperglycemic 02/21/2021 maintained on antibiotics, Covid regimen including Remdesevir.. Sitting up at bedside, moist loose couogh, feels better. Denies chest pain, palpitations or increasing shortness of breath . Maintaining O2 sats in the 90s on room air . Afebrile. Blood sugars controlled. Evaluated by infectious disease with recommendations noted and appreciated. 02/22/2021 respiratory status continues to improve, maintaining O2 sats in the 90s on room air. Positive diarrhea-improving. afebrile, T-max 100.5. Blood sugars better controlled. Significant clinical improvement. Patient will be discharged home today in stable condition with guarded prognosis. Patient Condition at Discharge: Stable Plan - Discharge Summary Discharge Rx Participant: No New Discharge Prescriptions: New Zinc Sulfate [Orazinc] 220 mg PO DAILY cap Cholestyramine (with Sugar) [Questran Packet] 4 gm PO BID@1000,1800 #14 packet Ascorbic Acid [Vitamin C] 500 mg PO DAILY tab dexAMETHasone [Hexadrol] See Taper PO DAILY #18 tablet Continue Atorvastatin [Lipitor] 20 mg PO HS Finasteride [Proscar] 5 mg PO DAILY Cholecalciferol [Vitamin D3 (25 Mcg = 1000 Iu)] 125 mcg PO DAILY Aspirin [[place] Aspirin EC] 81 mg PO DAILY Sertraline HCl [Zoloft] 50 mg PO DAILY Tamsulosin [Flomax] 0.4 mg PO HS Insulin Glargine,Hum.rec.anlog [Lantus Solostar] 23 unit SQ HS Losartan Potassium [Cozaar] 25 mg PO HS Acetaminophen [Tylenol Arthritis] 650 mg PO HS Ipratropium-Albuterol Nebulize [Duoneb 0.5 mg-3 mg/3 ml Soln] 3 ml INHALATION RT-QID PRN PRN Reason: Shortness Of Breath Ferrous Sulfate [Feosol] 325 mg PO DAILY Glimepiride [Amaryl] 1 mg PO DAILY Gabapentin [Neurontin] 100 mg PO HS PRN PRN Reason: pain/restless legs Nitroglycerin Sl Tabs [Nitrostat] 0.4 mg SL Q5M PRN PRN Reason: Chest Pain Discharge Medication List Aspirin [[place] Aspirin EC] 81 mg PO DAILY 01/07/19 [History] Atorvastatin [Lipitor] 20 mg PO HS 01/07/19 [History] Cholecalciferol [Vitamin D3 (25 Mcg = 1000 Iu)] 125 mcg PO DAILY 01/07/19 [History] Finasteride [Proscar] 5 mg PO DAILY 01/07/19 [History] Sertraline HCl [Zoloft] 50 mg PO DAILY 02/05/19 [History] Tamsulosin [Flomax] 0.4 mg PO HS 07/06/19 [History] Insulin Glargine,Hum.rec.anlog [Lantus Solostar] 23 unit SQ HS 02/06/20 [History] Losartan Potassium [Cozaar] 25 mg PO HS 02/06/20 [History] Acetaminophen [Tylenol Arthritis] 650 mg PO HS 07/27/20 [History] Ferrous Sulfate [Feosol] 325 mg PO DAILY 07/27/20 [History] Ipratropium-Albuterol Nebulize [Duoneb 0.5 mg-3 mg/3 ml Soln] 3 ml INHALATION RT-QID PRN 07/27/20 [History] Glimepiride [Amaryl] 1 mg PO DAILY 08/24/20 [History] Gabapentin [Neurontin] 100 mg PO HS PRN 12/06/20 [History] Nitroglycerin Sl Tabs [Nitrostat] 0.4 mg SL Q5M PRN 02/19/21 [History] Ascorbic Acid [Vitamin C] 500 mg PO DAILY tab 02/23/21 [Rx] Cholestyramine (with Sugar) [Questran Packet] 4 gm PO BID@1000,1800 #14 packet 02/23/21 [Rx] Zinc Sulfate [Orazinc] 220 mg PO DAILY cap 02/23/21 [Rx] dexAMETHasone [Hexadrol] See Taper PO DAILY #18 tablet 02/23/21 [Rx] Follow up Appointment(s)/Referral(s): Della Grant MD [Primary Care Provider] - 02/24/21 11:30 am (virtual visit will call you tomorrow morning to discuss ) [facility] Visiting Nurse, [NON-STAFF] - 1-2 Days Patient Instructions/Handouts: Coronavirus Disease 2019 (COVID-19)
--- NOTE | 2021-02-23 15:48 | P.PN ---
Progress Note - Text Progress Note Date: 02/23/21 REASON FOR FOLLOWUP: COVID-19 pneumonia. INTERVAL HISTORY: The patient remains to be afebrile. Patient is breathing comfortably on room air satting around 93%. The patient denies having any chest pain. He continues to have a cough But no worsening still complaining of bowel movement with each episode of coughing. No chest pain. No abdominal pain and no vomiting. PHYSICAL EXAMINATION: Blood pressure 160/72, pulse of 60, temperature of 98.1. He is 90% on room air. General description is an elderly male lying in bed in no distress. RESPIRATORY SYSTEM: Unlabored breathing with decreased intensity of breath sounds. No wheeze. HEART: S1, S2. Regular rate and rhythm. ABDOMEN: Soft. No tenderness. LABS: Reviewed DIAGNOSTIC IMPRESSION AND PLAN: 1. Patient with pneumonia secondary to acute COVID-19 infection in this patient Has shown overall clinical improvement, patient will get his dose of remdesivir today Afterwards to go home on dexamethasone, zinc, ascorbic acid 2. Patient with diarrhea. To continue Questran for symptomatic relief. 3. Positive blood culture, likely skin contamination. No need for further workup for the same.
== END 2021-02-23 14:33 | disposition home health service (06) | DRG 871 ==
LOC: EC 05:02 → 6NMEDSUR 06:57 → OBSVTOIN 02-20 08:46
PROVIDERS: ADMIT Family Medicine; ATTEND Family Medicine
PROC: XW033E5 Introduction of Remdesivir Anti-infective into Peripheral Vein, Percutaneous Approach, New Technology Group 5 (ICD-10-PCS; principal; 2021-02-20)
DX: A41.89 Other specified sepsis (principal); U07.1 COVID-19; J12.82 Pneumonia due to coronavirus disease 2019; N17.9 Acute kidney failure, unspecified; J44.0 Chronic obstructive pulmonary disease with (acute) lower respiratory infection; I45.3 Trifascicular block; E11.41 Type 2 diabetes mellitus with diabetic mononeuropathy; R65.20 Severe sepsis without septic shock; E11.65 Type 2 diabetes mellitus with hyperglycemia; Z79.4 Long term (current) use of insulin; E78.5 Hyperlipidemia, unspecified; I10 Essential (primary) hypertension; I25.10 Atherosclerotic heart disease of native coronary artery without angina pectoris; R77.8 Other specified abnormalities of plasma proteins; H54.61 Unqualified visual loss, right eye, normal vision left eye; I45.10 Unspecified right bundle-branch block; R09.02 Hypoxemia; K57.90 Diverticulosis of intestine, part unspecified, without perforation or abscess without bleeding; D72.810 Lymphocytopenia; R19.7 Diarrhea, unspecified; I25.2 Old myocardial infarction; Z79.82 Long term (current) use of aspirin; Z79.899 Other long term (current) drug therapy; Z85.46 Personal history of malignant neoplasm of prostate; Z92.3 Personal history of irradiation; Z86.14 Personal history of Methicillin resistant Staphylococcus aureus infection; Z95.1 Presence of aortocoronary bypass graft; Z90.5 Acquired absence of kidney; Z98.890 Other specified postprocedural states; Z87.891 Personal history of nicotine dependence; Z87.19 Personal history of other diseases of the digestive system; Z95.0 Presence of cardiac pacemaker; Z98.42 Cataract extraction status, left eye; Z87.442 Personal history of urinary calculi; Z98.41 Cataract extraction status, right eye; Z82.49 Family history of ischemic heart disease and other diseases of the circulatory system; Z83.3 Family history of diabetes mellitus
CPT/HCPCS: 36415; 71045; 72100; 80048; 80053; 82565; 82728; 83036; 83605; 83615; 83690; 83735; 83880; 84132; 84145; 84484; 85025; 85379; 85610; 85730; 86140; 87040; 87070; 87205; 87635; 93005; 93306; 94640; 94760; 96361; 96365; 96375; 99285

== ENCOUNTER → 2021-03-08 | Outpatient (CLI) | payer MEDICARE, OTHER ==
--- NOTE | 2021-03-08 10:49 | XR ---
EXAMINATION TYPE: XR chest 2V DATE OF EXAM: 03/08/2021 COMPARISON: 02/20/2021 HISTORY: Shortness of breath TECHNIQUE: Frontal and lateral views of the chest are obtained. FINDINGS: Scattered senescent parenchymal changes noted. Hyperinflation compatible with COPD. Scattered infiltrates throughout the periphery of the right lung and left lung base. Correlate for pn eumonia. Heart size is stable. Mediastinal structures are stable and grossly unremarkable. No evidence for hilar prominence. Degenerative changes dorsal spine. IMPRESSION: 1. Scattered infiltrates throughout the periphery of the right lung and left lung base. Correlate for pneumonia.
== END | disposition home or self-care (01) ==
LOC: RADXRMAIN 10:22
PROVIDERS: ATTEND Family Medicine
DX: R91.8 Other nonspecific abnormal finding of lung field (principal)
CPT/HCPCS: 71046

== ENCOUNTER 2021-03-30 14:37 | Emergency (ER) | payer MEDICARE, OTHER ==
[2021-03-30] MEDS ORDERED: SODIUM CHLORIDE 0.9% 500 ML 500 ML IV STA (15:07)
--- NOTE | 2021-03-30 15:12 | ED ---
Nausea/Vomiting/Diarrhea HPI - General Chief complaint: Nausea/Vomiting/Diarrhea Stated complaint: DIARRHEA Time Seen by Provider: 03/30/21 14:48 Source: patient, RN notes reviewed Mode of arrival: EMS Limitations: no limitations - History of Present Illness Initial comments: 76-year-old white male, alert and oriented 4, presents to the emergency room with complaints of nausea and vomiting with diaphoresis and dizziness approximately one hour prior to arrival. Patient states he was attempting to walk up the stairs and became Dizzy and sweaty falling on the second step. Patient denies any injuries. Patient states after he vomited he felt better and thinks it's related to the fish that he ate at 12:30. No LOC. Did not hit his head. Patient has a history of coronary artery disease with triple bypass in 2007, prostate surgery, COPD, diabetes, hypertension, hypercholesterolemia, and ND. Right nephrectomy in 1969. Patient states he seen his primary care doctor and was diagnosed with shingles of his left ankle and is on a medication he dexter noriega for the past 6 days but does not recall the name. Patient states he received his first COVID-19 vaccine several weeks ago and his primary doctor told him not to get the second one because he became too ill from the first shot. MD complaint: nausea, vomiting -: hour(s) (1) Associated Abdominal Pain: No Radiation: none Severity scale (1-10): 0 Consistency: now resolved Improves with: vomiting Worsens with: none Context: possible food poisoning (sick after eating fish, symptoms resolved now) Associated Symptoms: diaphoresis, other (dizzy) - Related Data Home Medications Medication Instructions Recorded Confirmed Aspirin [[place] Aspirin EC] 81 mg PO DAILY 01/07/19 03/30/21 Atorvastatin [Lipitor] 20 mg PO DAILY 01/07/19 03/30/21 Cholecalciferol [Vitamin D3 (25 125 mcg PO DAILY 01/07/19 03/30/21 Mcg = 1000 Iu)] Finasteride [Proscar] 5 mg PO DAILY 01/07/19 03/30/21 Sertraline HCl [Zoloft] 50 mg PO DAILY 02/05/19 03/30/21 Tamsulosin [Flomax] 0.4 mg PO HS 07/06/19 03/30/21 Insulin Glargine,Hum.rec.anlog 28 unit SQ HS 02/06/20 03/30/21 [Lantus Solostar] Losartan Potassium [Cozaar] 12.5 mg PO HS 02/06/20 03/30/21 Acetaminophen [Tylenol Arthritis] 650 mg PO HS 07/27/20 03/30/21 Ferrous Sulfate [Feosol] 325 mg PO DAILY 07/27/20 03/30/21 Glimepiride [Amaryl] 1 mg PO DAILY 08/24/20 03/30/21 Gabapentin [Neurontin] 100 mg PO HS PRN 12/06/20 03/30/21 Nitroglycerin Sl Tabs [Nitrostat] 0.4 mg SL Q5M PRN 02/19/21 03/30/21 Albuterol Inhaler [Ventolin Hfa 2 puff INHALATION RT-QID PRN 03/30/21 03/30/21 Inhaler] valACYclovir HCL [Valtrex] 1,000 mg PO BID 03/30/21 03/30/21 Allergies Allergy/AdvReac Type Severity Reaction Status Date / Time No Known Allergies Allergy Verified 03/30/21 17:29 Review of Systems ROS Statement: Those systems with pertinent positive or pertinent negative responses have been documented in the HPI. ROS Other: All systems not noted in ROS Statement are negative. Past Medical History Past Medical History: Coronary Artery Disease (CAD), Cancer, COPD, Diabetes Mellitus, Hyperlipidemia, Hypertension, Myocardial Infarction ([place]), Prostate Disorder Additional Past Medical History / Comment(s): prostate cancer with radiation > 20 years ago, nstemi, wears a brief incont urine/stool Last Myocardial Infarction Date:: 2017 History of Any Multi-Drug Resistant Organisms: ESBL, MRSA Date of last positivie culture/infection: 01/07/19 ESBL; 10/27/18 MRSA MDRO Source:: Urine-ESBL; Back-MRSA Past Surgical History: Coronary Bypass/CABG Additional Past Surgical History / Comment(s): 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,prostate bx, triple bypass 2017, bronchoscopy, picc line pt stated since removed Past Anesthesia/Blood Transfusion Reactions: No Reported Reaction Type of Cardiac Device: Permanent Pacemaker Device Placement Date:: 12/08/20 Past Psychological History: No Psychological Hx Reported Smoking Status: Former smoker Past Alcohol Use History: None Reported Past Drug Use History: None Reported - Past Family History Father Additional Family Medical History / Comment(s): old age Mother Family Medical History: Coronary Artery Disease (CAD), Diabetes Mellitus Additional Family Medical History / Comment(s): CABG General Exam Limitations: no limitations General appearance: alert, in no apparent distress Head exam: Present: atraumatic, normocephalic, normal inspection Eye exam: Present: normal appearance, 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 Absent: scleral icterus, conjunctival injection, nystagmus, periorbital tenderness ENT exam: Present: normal exam, normal oropharynx, mucous membranes moist Neck exam: Present: normal inspection. Absent: tenderness, meningismus, lymphadenopathy Respiratory exam: Present: chest wall tenderness (purple/yellow brusing to midsternal chest wall). Absent: respiratory distress, wheezes, rales, rhonchi, stridor Cardiovascular Exam: Present: regular rate, normal rhythm, normal heart sounds. Absent: systolic murmur, diastolic murmur, rubs, gallop, clicks GI/Abdominal exam: Present: soft, normal bowel sounds. Absent: distended, tenderness, guarding, rebound, rigid Extremities exam: Present: normal inspection, full ROM, normal capillary refill. Absent: tenderness, pedal edema, joint swelling, calf tenderness Back exam: Present: normal inspection. Absent: tenderness, CVA tenderness (R), CVA tenderness (L) Neurological exam: Present: alert, oriented X3 Psychiatric exam: Present: normal affect, normal mood Skin exam: Present: warm (bruising to mid chest at nipple line), dry, intact, normal color. Absent: rash Course Vital Signs 03/30/21 03/30/21 14:51 17:30 Temperature 98.1 F 98.2 F Pulse Rate 61 69 Respiratory 20 16 Rate Blood Pressure 140/74 148/76 O2 Sat by Pulse 95 95 Oximetry Medical Decision Making - Medical Decision Making Patient feeling better and ready to go home. KUB x-ray shows nonspecific bowel gas pattern and no obstruction. WBC count 7.5, hemoglobin and hematocrit is 13.4 and 42.7 respectively potassium is 5.5 consistent with past levels. EKG shows paced rhythm. Patient has had no further vomiting will discharge home and follow up with primary care doctor. Patient lives with his son who is at bedside. Case discussed with Dr. Chambers was agreeable to discharge patient home with follow-up to his primary care doctor as scheduled April 19. - Lab Data Result diagrams: 03/30/21 15:54 03/30/21 15:54 Lab Results 03/30/21 03/30/21 Range/Units 15:54 15:54 WBC 7.5 (3.8-10.6) k/uL RBC 4.60 (4.30-5.90) m/uL Hgb 13.4 (13.0-17.5) gm/dL Hct 42.7 (39.0-53.0) % MCV 92.8 (80.0-100.0) fL MCH 29.0 (25.0-35.0) pg MCHC 31.3 (31.0-37.0) g/dL RDW 16.9 H (11.5-15.5) % Plt Count 176 D (150-450) k/uL MPV 7.5 Neutrophils % 89 % Lymphocytes % 7 % Monocytes % 3 % Eosinophils % 1 % Basophils % 1 % Neutrophils # 6.6 (1.3-7.7) k/uL Lymphocytes # 0.5 L (1.0-4.8) k/uL Monocytes # 0.2 (0-1.0) k/uL Eosinophils # 0.1 (0-0.7) k/uL Basophils # 0.0 (0-0.2) k/uL Hypochromasia Slight Anisocytosis Slight Sodium 139 (137-145) mmol/L Potassium 5.5 H (3.5-5.1) mmol/L Chloride 105 (98-107) mmol/L Carbon Dioxide 27 (22-30) mmol/L Anion Gap 7 mmol/L BUN 20 (9-20) mg/dL Creatinine 1.21 (0.66-1.25) mg/dL Est GFR (CKD-EPI)AfAm 67 (>60 ml/min/1.73 sqM) Est GFR (CKD-EPI)NonAf 58 (>60 ml/min/1.73 sqM) Glucose 232 H (74-99) mg/dL Calcium 9.4 (8.4-10.2) mg/dL Total Bilirubin 0.5 (0.2-1.3) mg/dL AST 25 (17-59) U/L ALT 19 (4-49) U/L Alkaline Phosphatase 84 (38-126) U/L Total Protein 6.5 (6.3-8.2) g/dL Albumin 3.9 (3.5-5.0) g/dL - EKG Data -: EKG Interpreted by Me EKG shows normal: intervals (CT 0.17, QRS 0.15, QTC 0.486; atrial pacemaker noted, right bundle branch block) Rate: normal When compared to previous EKG there are: no significant change (compared to EKG 02/19/21) Disposition Clinical Impression: Food poisoning Disposition: HOME SELF-CARE Condition: Fair Instructions (If sedation given, give patient instructions): Acute Nausea and Vomiting (ED) Additional Instructions: Return to the emergency room with worsening symptoms, keep your appointment with the primary care doctor for April 19. Is patient prescribed a controlled substance at d/c from ED?: No Referrals: Joy Reagan DO [Primary Care Provider] - 1-2 days Time of Disposition: 18:15
[2021-03-30 16:13] LABS: Anisocytosis Slight; Basophils % (A) 1 %; Eosinophils # (A) 0.1 k/uL (0-0.7); Eosinophils % (A) 1 %; HCT 42.7 % (39.0-53.0); HGB 13.4 gm/dL (13.0-17.5); Hypochromasia Slight; Lymphocytes # (A) 0.5 k/uL (1.0-4.8); Lymphocytes % (A) 7 %; MCHC 31.3 g/dL (31.0-37.0); MCV 92.8 fL (80.0-100.0); Mean Platelet Volume 7.5; Monocytes # (A) 0.2 k/uL (0-1.0); Monocytes % (A) 3 %; Neutrophils # (A) 6.6 k/uL (1.3-7.7); Neutrophils % (A) 89 %; RDW 16.9 % (11.5-15.5); WBC 7.5 k/uL (3.8-10.6)
[2021-03-30 16:14] LABS: Platelet Count 176 k/uL (150-450)
[2021-03-30 16:15] LABS: Albumin 3.9 g/dL (3.5-5.0); Calcium 9.4 mg/dL (8.4-10.2); Potassium 5.5 mmol/L (3.5-5.1); Total Bilirubin 0.5 mg/dL (0.2-1.3); Total Protein 6.5 g/dL (6.3-8.2)
--- NOTE | 2021-03-30 16:46 | XR ---
EXAMINATION TYPE: XR KUB DATE OF EXAM: 03/30/2021 COMPARISON: NONE HISTORY: Pain TECHNIQUE: One view abdominal series FINDINGS: The osseous structures are intact. The bowel gas pattern is nonspecific. Arthritic change of the hip s with hypertrophic changes of the acetabulum. Degenerative change lower lumbar spine. Cardiac leads are suggested. IMPRESSION: 1. Nonspecific abdomen with no obstruction.
[2021-03-30 18:19] LABS: Appearance,Urine Cloudy (Clear); Bacteria,Urine Moderate /hpf; Bilirubin,Urine Negative (Negative); Blood,Urine Negative (Negative); Color,Urine Yellow; Glucose,Urine (UA) Negative (Negative); Ketones,Urine Negative (Negative); Leukocyte Esterase,Urine Large (Negative); Nitrite,Urine Positive (Negative); PH, Urine 5.5 (5.0-8.0); Protein,Urine 2+ (Negative); Specific Gravity,Urine 1.015 (1.001-1.035); Urobilinogen,Urine <2.0 mg/dL (<2.0); WBC,Urine 66 /hpf (0-5)
[2021-03-30 18:40] VITALS: BP 169/74; PULSE 68; RESP 18; TEMP 98
== END 2021-03-30 18:39 | disposition home or self-care (01) ==
LOC: EC 14:37
DX: A05.9 Bacterial foodborne intoxication, unspecified (principal); I25.10 Atherosclerotic heart disease of native coronary artery without angina pectoris; E78.5 Hyperlipidemia, unspecified; I10 Essential (primary) hypertension; I25.2 Old myocardial infarction; J44.9 Chronic obstructive pulmonary disease, unspecified; E78.00 Pure hypercholesterolemia, unspecified; E11.9 Type 2 diabetes mellitus without complications; Z23 Encounter for immunization; Z79.4 Long term (current) use of insulin; Z85.46 Personal history of malignant neoplasm of prostate; Z87.891 Personal history of nicotine dependence; Z90.5 Acquired absence of kidney; Z95.1 Presence of aortocoronary bypass graft
CPT/HCPCS: 36415; 74018; 80053; 81001; 85025; 87077; 87086; 87186; 93005; 96360; 99284

== ENCOUNTER 2021-04-02 11:24 | Observation (INO) | payer MEDICARE, OTHER ==
[2021-04-02 11:30] VITALS: RESP 18
[2021-04-02] MEDS ORDERED: NITROFURANTOIN MONOHYD/M-CRYST 100 MG CAP PO STA (11:46)
[2021-04-02] MEDS ORDERED: PIPERACILLIN-TAZOBACTAM 3.375 GM in SODIUM CHLORIDE 0.9% 100 ML IVPB STA (11:55)
[2021-04-02] MEDS ORDERED: NALOXONE 0.4 MG/ML 1 ML VIAL IV PRN (13:20)
--- NOTE | 2021-04-02 13:25 | ED ---
Recheck HPI - General Chief Complaint: Recheck/Abnormal Lab/Rx Stated Complaint: UTI, sent by DR Time Seen by Provider: 04/02/21 11:31 Source: patient Mode of arrival: wheelchair Limitations: no limitations - History of Present Illness Initial Comments: 76-year-old male with history of right-sided nephrectomy and presenting today for chief complaint of urinary tract infection sent in by provider. Patient states he sent due to growth of urinalysis. pt states that he was told he needs IV abx. Pt grew E.Coli. sensitivity to IV agents aside from nitrofurantoin which is contraindicated given patient's recent BUN and creatinine as well as history of nephrectomy. Patient denies fevers chills general malaise night sweats or additional complaints. He denies any back flank pain hematuria dysuria urgency or frequency. - Related Data Home Medications Medication Instructions Recorded Confirmed RX: Aspirin [[place] Aspirin EC] 81 mg PO DAILY 01/07/19 04/02/21 RX: Atorvastatin [Lipitor] 20 mg PO DAILY 01/07/19 04/02/21 RX: Cholecalciferol [Vitamin D3 125 mcg PO DAILY 01/07/19 04/02/21 (25 Mcg = 1000 Iu)] RX: Finasteride [Proscar] 5 mg PO DAILY 01/07/19 04/02/21 RX: Sertraline HCl [Zoloft] 50 mg PO DAILY 02/05/19 04/02/21 RX: Tamsulosin [Flomax] 0.4 mg PO HS 07/06/19 04/02/21 RX: Insulin Glargine,Hum.rec.anlog 28 unit SQ HS 02/06/20 04/02/21 [Lantus Solostar] RX: Losartan Potassium [Cozaar] 12.5 mg PO HS 02/06/20 04/02/21 RX: Acetaminophen [Tylenol 650 mg PO HS 07/27/20 04/02/21 Arthritis] RX: Ferrous Sulfate [Feosol] 325 mg PO DAILY 07/27/20 04/02/21 RX: Glimepiride [Amaryl] 1 mg PO DAILY 08/24/20 04/02/21 RX: Gabapentin [Neurontin] 100 mg PO HS PRN 12/06/20 04/02/21 RX: Nitroglycerin Sl Tabs 0.4 mg SL Q5M PRN 02/19/21 04/02/21 [Nitrostat] Albuterol Inhaler [Ventolin Hfa 2 puff INHALATION RT-QID PRN 03/30/21 04/02/21 Inhaler] Allergies Allergy/AdvReac Type Severity Reaction Status Date / Time No Known Allergies Allergy Verified 04/02/21 13:00 Review of Systems ROS Statement: Those systems with pertinent positive or pertinent negative responses have been documented in the HPI. ROS Other: All systems not noted in ROS Statement are negative. Past Medical History Past Medical History: Coronary Artery Disease (CAD), Cancer, COPD, Diabetes Mellitus, Hyperlipidemia, Hypertension, Myocardial Infarction ([place]), Prostate Disorder Additional Past Medical History / Comment(s): prostate cancer with radiation > 20 years ago, nstemi, wears a brief incont urine/stool Last Myocardial Infarction Date:: 2017 History of Any Multi-Drug Resistant Organisms: ESBL, MRSA Date of last positivie culture/infection: 01/07/19 ESBL; 10/27/18 MRSA MDRO Source:: Urine-ESBL; Back-MRSA Past Surgical History: Coronary Bypass/CABG Additional Past Surgical History / Comment(s): 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,prostate bx, triple bypass 2017, bronchoscopy, picc line pt stated since removed Past Anesthesia/Blood Transfusion Reactions: No Reported Reaction Type of Cardiac Device: Permanent Pacemaker Device Placement Date:: 12/08/20 Past Psychological History: No Psychological Hx Reported Smoking Status: Former smoker Past Alcohol Use History: None Reported Past Drug Use History: None Reported - Past Family History Father Additional Family Medical History / Comment(s): old age Mother Family Medical History: Coronary Artery Disease (CAD), Diabetes Mellitus Additional Family Medical History / Comment(s): CABG General Exam - General Exam Comments Initial Comments: General: The patient is awake and alert, in no distress, and does not appear acutely ill. Eye: Pupils are equal, round and reactive to light, extra-ocular movements are intact. No nystagmus. There is normal conjunctiva bilaterally. No signs of icterus. Cardiovascular: There is a regular rate and rhythm. No murmur, rub or gallop is appreciated. Respiratory: Lungs are clear to auscultation, respirations are non-labored, b reath sounds are equal. No wheezes, stridor, rales, or rhonchi. Gastrointestinal: Soft, non-distended, non-tender abdomen without masses or organomegaly noted. There is no rebound or guarding present. No CVA tenderness. ] Musculoskeletal: Normal ROM, no tenderness. Strength 5/5. Sensation intact. Pulses equal bilaterally 2+. Neurological: A&O x 3. CN II-XII intact grossly, There are no obvious motor or sensory deficits. Coordination appears grossly intact. Speech is normal. Skin: Skin is warm and dry and no rashes or lesions are noted. Psychiatric: Cooperative, appropriate mood & affect, normal judgment. Limitations: no limitations Course Vital Signs 04/02/21 11:25 Temperature 98 F Pulse Rate 61 Respiratory 18 Rate Blood Pressure 167/85 O2 Sat by Pulse 97 Oximetry Medical Decision Making - Medical Decision Making UA reviewed as well as previous cultures. Zosyn initiated. Consulted pharmacy who advised against oral agent of nitrofuratin. patient case discussed with Dr. Bowser who recommendds admission with ID on consult. Disposition Clinical Impression: UTI (urinary tract infection) Disposition: ADMITTED IP TO THIS HOSP Condition: Stable Is patient prescribed a controlled substance at d/c from ED?: No Referrals: Joy Reagan DO [Primary Care Provider] - 1-2 days Time of Disposition: 13:26 Decision to Admit Reason: Admit from EC Decision Date: 04/02/21 Decision Time: 13:26
[2021-04-02 13:40] LABS: Anisocytosis Slight; Basophils # (A) 0.1 k/uL (0-0.2); Basophils % (A) 1 %; Eosinophils # (A) 0.1 k/uL (0-0.7); Eosinophils % (A) 1 %; HCT 41.4 % (39.0-53.0); HGB 13.8 gm/dL (13.0-17.5); Lymphocytes # (A) 0.9 k/uL (1.0-4.8); Lymphocytes % (A) 15 %; MCH 30.4 pg (25.0-35.0); MCHC 33.2 g/dL (31.0-37.0); MCV 91.6 fL (80.0-100.0); Mean Platelet Volume 7.3; Monocytes # (A) 0.3 k/uL (0-1.0); Monocytes % (A) 5 %; Neutrophils # (A) 4.5 k/uL (1.3-7.7); Neutrophils % (A) 77 %; Platelet Count 168 k/uL (150-450); RBC 4.52 m/uL (4.30-5.90); RDW 16.8 % (11.5-15.5); WBC 5.8 k/uL (3.8-10.6)
[2021-04-02 13:47] LABS: Appearance,Urine Cloudy (Clear); Bacteria,Urine Moderate /hpf; Bilirubin,Urine Negative (Negative); Blood,Urine Negative (Negative); Color,Urine Light Yellow; Glucose,Urine (UA) Negative (Negative); Ketones,Urine Negative (Negative); Leukocyte Esterase,Urine Large (Negative); Mucus,Urine Rare /hpf; Nitrite,Urine Positive (Negative); PH, Urine 5.5 (5.0-8.0); Protein,Urine 1+ (Negative); RBC,Urine <1 /hpf (0-5); Specific Gravity,Urine 1.008 (1.001-1.035); Squamous Epithelial Cell,Urine <1 /hpf (0-4); Urobilinogen,Urine <2.0 mg/dL (<2.0); WBC,Urine 50 /hpf (0-5)
[2021-04-02 13:49] LABS: Albumin 4.1 g/dL (3.5-5.0); Calcium 9.8 mg/dL (8.4-10.2); Potassium 5.5 mmol/L (3.5-5.1); Total Bilirubin 0.5 mg/dL (0.2-1.3); Total Protein 6.9 g/dL (6.3-8.2)
[2021-04-02] MEDS ORDERED: NITROGLYCERIN SL TABS 0.4 MG TAB SUBLINGUAL PRN (14:01)
[2021-04-02] MEDS ORDERED: ALBUTEROL HFA INHALER INHALATION PRN (14:01)
[2021-04-02] MEDS ORDERED: GABAPENTIN 100 MG CAP PO PRN (14:01)
--- NOTE | 2021-04-02 15:39 | P.HPIM ---
History of Present Illness 76-year-old male with history of right-sided nephrectomy and presenting today for chief complaint of urinary tract infection sent in by provider. Patient states he sent due to growth of urinalysis. pt states that he was told he needs IV abx. Pt grew. Which are grew extended spectrum beta lactamase E. coli. Patient denies fevers chills general malaise night sweats or additional complaints. He denies any back flank pain hematuria dysuria urgency or frequency. Patient was comparing of nausea vomiting which resolved at this time patient had that these symptoms after he ate coleslaw from a restaurant. Patient is here to food poisoning. Patient doesn't have any symptoms of UTI but denied any dysuria or increased urinary frequency or urgency suprapubic pain doesn't have any fever or leukocytosis patient appears to have asymptomatic bacteriuria. Review of Systems REVIEW OF SYSTEMS: CONSTITUTIONAL: No fever, no malaise, no fatigue. HEENT: No recent visual problems or hearing problems. Denied any sore throat. CARDIOVASCULAR: No chest pain, orthopnea, PND, no palpitations, no syncope. PULMONARY: No shortness of breath, no cough, no hemoptysis. GASTROINTESTINAL:no abdominal pain. NEUROLOGICAL: No headaches, no weakness, no numbness. HEMATOLOGICAL: Denies any bleeding or petechiae. GENITOURINARY: Denies any burning micturition, frequency, or urgency. MUSCULOSKELETAL/RHEUMATOLOGICAL: Denies any joint pain, swelling, or any muscle pain. ENDOCRINE: Denies any polyuria or polydipsia. The rest of the 14-point review of systems is negative. Past Medical History Past Medical History: Coronary Artery Disease (CAD), Cancer, COPD, Diabetes Mellitus, Hyperlipidemia, Hypertension, Myocardial Infarction ([place]), Prostate Disorder Additional Past Medical History / Comment(s): prostate cancer with radiation > 20 years ago, nstemi, wears a brief incont urine/stool Last Myocardial Infarction Date:: 2017 History of Any Multi-Drug Resistant Organisms: ESBL, MRSA Date of last positivie culture/infection: 01/07/19 ESBL; 10/27/18 MRSA MDRO Source:: Urine-ESBL; Back-MRSA Past Surgical History: Coronary Bypass/CABG Additional Past Surgical History / Comment(s): 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,prostate bx, triple bypass 2017, bronchoscopy, picc line pt stated since removed Past Anesthesia/Blood Transfusion Reactions: No Reported Reaction Type of Cardiac Device: Permanent Pacemaker Device Placement Date:: 12/08/20 Past Psychological History: No Psychological Hx Reported Smoking Status: Former smoker Past Alcohol Use History: None Reported Past Drug Use History: None Reported - Past Family History Father Additional Family Medical History / Comment(s): old age Mother Family Medical History: Coronary Artery Disease (CAD), Diabetes Mellitus Additional Family Medical History / Comment(s): CABG Medications and Allergies Home Medications Medication Instructions Recorded Confirmed Type Aspirin [[place] Aspirin EC] 81 mg PO DAILY 01/07/19 04/02/21 History Atorvastatin [Lipitor] 20 mg PO DAILY 01/07/19 04/02/21 History Cholecalciferol [Vitamin D3 (25 125 mcg PO DAILY 01/07/19 04/02/21 History Mcg = 1000 Iu)] Finasteride [Proscar] 5 mg PO DAILY 01/07/19 04/02/21 History Sertraline HCl [Zoloft] 50 mg PO DAILY 02/05/19 04/02/21 History Tamsulosin [Flomax] 0.4 mg PO HS 07/06/19 04/02/21 History Insulin Glargine,Hum.rec.anlog 28 unit SQ HS 02/06/20 04/02/21 History [Lantus Solostar] Losartan Potassium [Cozaar] 12.5 mg PO HS 02/06/20 04/02/21 History Acetaminophen [Tylenol Arthritis] 650 mg PO HS 07/27/20 04/02/21 History Ferrous Sulfate [Feosol] 325 mg PO DAILY 07/27/20 04/02/21 History Glimepiride [Amaryl] 1 mg PO DAILY 08/24/20 04/02/21 History Gabapentin [Neurontin] 100 mg PO HS PRN 12/06/20 04/02/21 History Nitroglycerin Sl Tabs [Nitrostat] 0.4 mg SL Q5M PRN 02/19/21 04/02/21 History Albuterol Inhaler [Ventolin Hfa 2 puff INHALATION RT-QID PRN 03/30/21 04/02/21 History Inhaler] Allergies Allergy/AdvReac Type Severity Reaction Status Date / Time No Known Allergies Allergy Verified 04/02/21 13:00 Physical Exam Vitals: Vital Signs Temp Pulse Resp BP Pulse Ox 04/02/21 15:07 98.2 F 58 L 18 167/83 93 L 04/02/21 11:25 98 F 61 18 167/85 97 Intake and Output 04/02/21 04/02/21 04/02/21 06:59 14:59 22:59 Other: Voiding Method Toilet Weight 98.43 kg PHYSICAL EXAMINATION: GENERAL: The patient is alert and oriented x3, not in any acute distress. Well developed, well nourished. HEENT: Pupils are round and equally reacting to light. EOMI. No scleral icterus. No conjunctival pallor. Normocephalic, atraumatic. No pharyngeal erythema. No thyromegaly. CARDIOVASCULAR: S1 and S2 present. No murmurs, rubs, or gallops. PULMONARY: Chest is clear to auscultation, no wheezing or crackles. ABDOMEN: Soft, nontender, nondistended, normoactive bowel sounds. No palpable organomegaly. MUSCULOSKELETAL: No joint swelling or deformity. EXTREMITIES: No cyanosis, clubbing, or pedal edema. NEUROLOGICAL: Gross neurological examination did not reveal any focal deficits. SKIN: No rashes. Results CBC & Chem 7: 04/02/21 13:10 04/02/21 13:10 Labs: Abnormal Lab Results - Last 24 Hours (Table) 04/02/21 04/02/21 04/02/21 Range/Units 13:10 13:10 13:31 RDW 16.8 H (11.5-15.5) % Lymphocytes # 0.9 L (1.0-4.8) k/uL Potassium 5.5 H (3.5-5.1) mmol/L BUN 25 H (9-20) mg/dL Urine Protein 1+ H (Negative) Ur Leukocyte Esterase Large H (Negative) Urine WBC 50 H (0-5) /hpf Urine WBC Clumps Few H (None) /hpf Urine Bacteria Moderate H (None) /hpf Urine Mucus Rare H (None) /hpf Assessment and Plan Plan: -Viral gastroenteritis/food poisoning: Symptoms resolved at this time no further intervention at this time -Asymptomatic bacteriuria in spite of ESBL E. coli in urine patient will not require any antibiotics as patient is asymptomatic. For now patient will be continue on meropenem infectious disease will be consulted will get ID opinion as well. Patient has a mildly abnormal urine although patient doesn't have any symptoms at this time. -Coronary artery disease with stent and CABG in the past -COPD without any acute exacerbation -Type 2 diabetes with us -Hyperlipidemia -Hypertension -Benign prostatic hypertrophy -History of right nephrectomy -DVT prophylaxis coronary ambulation possibility of discharge tomorrow after evaluation by infectious disease and mostly will not require any antibiotics
[2021-04-02] MEDS: MEROPENEM 500 MG in SODIUM CHLORIDE 0.9% 100 ML IVPB SCH ×2 (17:26→22:43)
[2021-04-02] MEDS: ATORVASTATIN 20 MG TAB PO SCH (17:26)
[2021-04-02] MEDS: SODIUM CHLORIDE 0.9% 1,000 ML IV SCH (17:27)
[2021-04-02] MEDS ORDERED: TAMSULOSIN 0.4 MG CAP.ER.24H PO SCH (21:00)
[2021-04-02] MEDS ORDERED: INSULIN DETEMIR (LEVEMIR) 100 UNIT/ML SYR SQ SCH (21:00)
[2021-04-02] MEDS ORDERED: ACETAMINOPHEN TAB 325 MG TAB PO SCH (21:00)
[2021-04-02 21:19] LABS: Glucose,Whole Blood 82 mg/dL (75-99)
[2021-04-03 07:06] LABS: Glucose,Whole Blood 99 mg/dL (75-99)
[2021-04-03] MEDS ORDERED: ACETAMINOPHEN TAB 325 MG TAB PO PRN (07:24)
[2021-04-03] MEDS: MEROPENEM 500 MG in SODIUM CHLORIDE 0.9% 100 ML IVPB SCH (07:33)
[2021-04-03] MEDS: ATORVASTATIN 20 MG TAB PO SCH (07:34)
[2021-04-03] MEDS: SODIUM CHLORIDE 0.9% 1,000 ML IV SCH (07:35)
[2021-04-03] MEDS ORDERED: ASPIRIN 81 MG PO SCH (09:00)
[2021-04-03] MEDS ORDERED: CHOLECALCIFEROL 25 MCG (1000 IU) TABLET PO SCH (09:00)
[2021-04-03] MEDS ORDERED: GLIMEPIRIDE 1 MG TAB PO SCH (09:00)
[2021-04-03] MEDS ORDERED: FERROUS SULFATE 325 MG TAB PO SCH (09:00)
[2021-04-03] MEDS ORDERED: FINASTERIDE 5 MG TAB PO SCH (09:00)
[2021-04-03] MEDS ORDERED: SERTRALINE 50 MG TAB PO SCH (09:00)
--- NOTE | 2021-04-03 09:30 | XR ---
EXAMINATION TYPE: XR chest 1V portable DATE OF EXAM: 04/03/2021 COMPARISON: 03/08/2021 INDICATION: Pneumonia TECHNIQUE: Single frontal view of the chest is obtained. FINDINGS: The heart size is normal. Pacemaker overlies left chest. Sternotomy wires are in the midline. There is chronic elevation of the right diaphragm. The pulmonary vasculature is normal. The lungs are clear. IMPRESSION: 1. No acute pulmonary process.
[2021-04-03] MEDS ORDERED: ERTAPENEM 1 GM in SODIUM CHLORIDE 0.9% 50 ML IVPB SCH (10:00)
[2021-04-03 10:10] VITALS: BP 150/80; PULSE 65; TEMP 98.1
[2021-04-03 10:45] LABS: C Reactive Protein 1.5 mg/dL (<1.0)
--- NOTE | 2021-04-03 10:50 | P.CONS ---
History of Present Illness - Reason for Consult Consult date: 04/03/21 ESBL E. 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 coli the patient has been called and has been admitted to the hospital the patient was started on meropenem and infectious disease was consulted for further management, at the time of evaluat ion the patient remains to be afebrile, patient mentioned he is feeling fine and nothing wrong with him, patient denies having any chest pain shortness of breath or cough. Denies any further nausea vomiting no abdominal pain no diarrhea the patient denies having any burning or frequency of urine and no difficult urination Review of Systems Positive point has been mentioned in the HPI rest of the systems are negative Past Medical History Past Medical History: Coronary Artery Disease (CAD), Cancer, COPD, Diabetes Mellitus, Hyperlipidemia, Hypertension, Myocardial Infarction ([place]), Prostate Disorder Additional Past Medical History / Comment(s): prostate cancer with radiation > 20 years ago, nstemi, wears a brief incont urine/stool Last Myocardial Infarction Date:: 2017 History of Any Multi-Drug Resistant Organisms: ESBL, MRSA Year Discovered:: 01/07/19 ESBL; 10/27/18 MRSA MDRO Source:: Urine-ESBL; Back-MRSA Past Surgical History: Coronary Bypass/CABG Additional Past Surgical History / Comment(s): 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,prostate bx, triple bypass 2017, bronchoscopy, picc line pt stated since removed Past Anesthesia/Blood Transfusion Reactions: No Reported Reaction Type of Cardiac Device: Permanent Pacemaker Device Placement Date:: 12/08/20 Past Psychological History: No Psychological Hx Reported Smoking Status: Former smoker Past Alcohol Use History: None Reported Past Drug Use History: None Reported - Past Family History Father Additional Family Medical History / Comment(s): old age Mother Family Medical History: Coronary Artery Disease (CAD), Diabetes Mellitus Additional Family Medical History / Comment(s): CABG Medications and Allergies Home Medications Medication Instructions Recorded Confirmed Type Aspirin [[place] Aspirin EC] 81 mg PO DAILY 01/07/19 04/02/21 History Atorvastatin [Lipitor] 20 mg PO DAILY 01/07/19 04/02/21 History Cholecalciferol [Vitamin D3 (25 125 mcg PO DAILY 01/07/19 04/02/21 History Mcg = 1000 Iu)] Finasteride [Proscar] 5 mg PO DAILY 01/07/19 04/02/21 History Sertraline HCl [Zoloft] 50 mg PO DAILY 02/05/19 04/02/21 History Tamsulosin [Flomax] 0.4 mg PO HS 07/06/19 04/02/21 History Insulin Glargine,Hum.rec.anlog 28 unit SQ HS 02/06/20 04/02/21 History [Lantus Solostar] Losartan Potassium [Cozaar] 12.5 mg PO HS 02/06/20 04/02/21 History Acetaminophen [Tylenol Arthritis] 650 mg PO HS 07/27/20 04/02/21 History Ferrous Sulfate [Feosol] 325 mg PO DAILY 07/27/20 04/02/21 History Glimepiride [Amaryl] 1 mg PO DAILY 08/24/20 04/02/21 History Gabapentin [Neurontin] 100 mg PO HS PRN 12/06/20 04/02/21 History Nitroglycerin Sl Tabs [Nitrostat] 0.4 mg SL Q5M PRN 02/19/21 04/02/21 History Albuterol Inhaler [Ventolin Hfa 2 puff INHALATION RT-QID PRN 03/30/21 04/02/21 History Inhaler] Allergies Allergy/AdvReac Type Severity Reaction Status Date / Time No Known Allergies Allergy Verified 04/02/21 13:00 Physical Exam Vitals: Vital Signs Temp Pulse Pulse Resp BP BP Pulse Ox 04/03/21 05:44 98.5 F 64 150/78 95 04/03/21 02:52 98.6 F 70 18 145/80 93 L 04/02/21 21:24 18 04/02/21 21:20 97.6 F 72 19 181/74 98 04/02/21 20:20 98.1 F 69 18 165/76 96 04/02/21 17:18 98.2 F 80 18 145/68 94 L 04/02/21 15:07 98.2 F 58 L 18 167/83 93 L 04/02/21 11:25 98 F 61 18 167/85 97 Intake and Output 04/02/21 04/03/21 04/03/21 22:59 06:59 14:59 Output Total 400 Balance -400 Output: Urine 400 Other: Voiding Method Urinal Diaper # Voids 1 # Bowel Movements 3 Weight 98.43 kg GENERAL DESCRIPTION: Elderly male up in the chair, no distress. No tachypnea or accessory muscle of respiration use. HEENT: Shows Pallor , no scleral icterus. Oral mucous membrane is dry. No pharyngeal erythema or thrush NECK: Trachea central, no thyromegaly. LUNGS: Unlabored breathing. Clear to auscultation anteriorly. No wheeze or crackle. HEART: S1, S2, regular rate and rhythm. No loud murmur ABDOMEN: Soft, no tenderness , guarding or rigidity, no organomegaly EXTREMITIES: No edema of feet. SKIN: No rash, no masses palpable. NEUROLOGICAL: The patient is awake, alert, oriented x3, mood and affect normal. Results CBC & Chem 7: 04/02/21 13:10 04/02/21 13:10 Labs: Abnormal Lab Results - Last 24 Hours (Table) 04/02/21 04/02/21 04/02/21 Range/Units 13:10 13:10 13:31 RDW 16.8 H (11.5-15.5) % Lymphocytes # 0.9 L (1.0-4.8) k/uL Potassium 5.5 H (3.5-5.1) mmol/L BUN 25 H (9-20) mg/dL Urine Protein 1+ H (Negative) Ur Leukocyte Esterase Large H (Negative) Urine WBC 50 H (0-5) /hpf Urine WBC Clumps Few H (None) /hpf Urine Bacteria Moderate H (None) /hpf Urine Mucus Rare H (None) /hpf SARS-CoV-2 (PCR) (Not Detectd) 04/02/21 Range/Units 15:07 RDW (11.5-15.5) % Lymphocytes # (1.0-4.8) k/uL Potassium (3.5-5.1) mmol/L BUN (9-20) mg/dL Urine Protein (Negative) Ur Leukocyte Esterase (Negative) Urine WBC (0-5) /hpf Urine WBC Clumps (None) /hpf Urine Bacteria (None) /hpf Urine Mucus (None) /hpf SARS-CoV-2 (PCR) Detected A (Not Detectd) Microbiology - Last 24 Hours (Table) 04/02/21 13:32 Urine Culture - Preliminary Urine,Voided Assessment and Plan Assessment: 1- patient with a positive urine culture with ESBL E. coli that was obtained on 03/30/2021 when the patient presented to the hospital with food poisoning with a predominantly GI symptoms of nausea vomiting and diarrhea patient did not have any urinary symptoms at that point still a UA and culture were obtained, patient currently is afebrile did have a normal white count and no urinary symptoms of burning frequency or difficulty urination more likely representing a symptomatic bacteriuria or contamination 2-positive cover test in this patient who did have a recent history of COVID-19 infection that was adequately treated likely representing left over antigen from his recent infection rather than reinfection as clinically not behaving as pneumonia (1) COVID-19 ruled out by clinical criteria Current Visit: Yes Status: Acute Code(s): Z20.822 - Contact with and (suspected) exposure to COVID-19 SNOMED Code(s): 782049544099369903 (2) UTI (urinary tract infection) Current Visit: Yes Status: Acute Code(s): N39.0 - URINARY TRACT INFECTION, SITE NOT SPECIFIED SNOMED Code(s): 71657358 Plan: 1- patient has received 48 hours antibiotic , clinical suspicious low for symptomatic infection antibiotic can be safely discontinued 2- no need for further workup for the positive covid test chest x-ray is negative Thank you for this consultation plan discussed with the admitting physician and the patient nurse
[2021-04-03 11:17] LABS: Glucose,Whole Blood 128 mg/dL (75-99)
--- NOTE | 2021-04-03 13:30 | P.DS ---
Providers Date of admission: 04/02/21 13:21 Attending physician: Roxy Mccord Consults: 04/02/21 13:22 Consult Physician Routine Consulting Provider: Eddie Roche Consult Reason/Comments: UTI, hx nephrectomy Do you want consulting provider notified?: Yes 04/02/21 14:00 Consult Physician Routine Consulting Provider: Eddie Roche Consult Reason/Comments: asymptomatic bactreuria vs UTI Do you want consulting provider notified?: Yes Primary care physician: Joy Reagan Layton Hospital Course: 76-year-old male with history of right-sided nephrectomy and presenting today for chief complaint of urinary tract infection sent in by provider. Patient states he sent due to growth of urinalysis. pt states that he was told he needs IV abx. Pt grew. Which are grew extended spectrum beta lactamase E. coli. Patient denies fevers chills general malaise night sweats or additional complaints. He denies any back flank pain hematuria dysuria urgency or frequency. Patient was comparing of nausea vomiting which resolved at this time patient had that these symptoms after he ate coleslaw from a restaurant. Patient is here to food poisoning. Patient doesn't have any symptoms of UTI but denied any dysuria or increased urinary frequency or urgency suprapubic pain doesn't have any fever or leukocytosis patient appears to have asymptomatic bacteriuria. 04/03/2021 Patient was evaluated by infectious disease they're not recommending any antibiotics and patient received 2 days of antibiotic. Patient has a asymptomatic bacteriuria. Patient had a positive COVID-19 PCR which is secondary to left over inactivated RNA fragments. Patient nausea and abdominal discomfort is secondary to food poisoning or viral gastroenteritis. PHYSICAL EXAMINATION: GENERAL: The patient is alert and oriented x3, not in any acute distress. Well developed, well nourished. HEENT: Pupils are round and equally reacting to light. EOMI. No scleral icterus. No conjunctival pallor. Normocephalic, atraumatic. No pharyngeal erythema. No thyromegaly. CARDIOVASCULAR: S1 and S2 present. No murmurs, rubs, or gallops. PULMONARY: Chest is clear to auscultation, no wheezing or crackles. ABDOMEN: Soft, nontender, nondistended, normoactive bowel sounds. No palpable organomegaly. MUSCULOSKELETAL: No joint swelling or deformity. EXTREMITIES: No cyanosis, clubbing, or pedal edema. NEUROLOGICAL: Gross neurological examination did not reveal any focal deficits. SKIN: No rashes. Assessment and Plan Plan: -Viral gastroenteritis/food poisoning: Symptoms resolved at this time no further intervention at this time -Asymptomatic bacteriuria in spite of ESBL E. coli in urine patient will not require any antibiotics as patient is asymptomatic. Infectious disease evaluated the patient is not requiring any antibiotics. -Coronary artery disease with stent and CABG in the past -COPD without any acute exacerbation -Type 2 diabetes to light as -Hyperlipidemia -Hypertension -Benign prostatic hypertrophy -History of right nephrectomy -Positive COVID-19 test due to above-mentioned reason Patient Condition at Discharge: Stable Plan - Discharge Summary Discharge Rx Participant: No New Discharge Prescriptions: New amLODIPine [Norvasc] 5 mg PO DAILY #30 tab Continue Atorvastatin [Lipitor] 20 mg PO DAILY Finasteride [Proscar] 5 mg PO DAILY Cholecalciferol [Vitamin D3 (25 Mcg = 1000 Iu)] 125 mcg PO DAILY Aspirin [[place] Aspirin EC] 81 mg PO DAILY Sertraline HCl [Zoloft] 50 mg PO DAILY Tamsulosin [Flomax] 0.4 mg PO HS Acetaminophen [Tylenol Arthritis] 650 mg PO HS Ferrous Sulfate [Feosol] 325 mg PO DAILY Glimepiride [Amaryl] 1 mg PO DAILY Gabapentin [Neurontin] 100 mg PO HS PRN PRN Reason: pain/restless legs Nitroglycerin Sl Tabs [Nitrostat] 0.4 mg SL Q5M PRN PRN Reason: Chest Pain Albuterol Inhaler [Ventolin Hfa Inhaler] 2 puff INHALATION RT-QID PRN PRN Reason: Shortness Of Breath Changed Insulin Glargine,Hum.rec.anlog [Lantus Solostar] 22 unit SQ HS #0 Discontinued Losartan Potassium [Cozaar] 12.5 mg PO HS Discharge Medication List Aspirin [[place] Aspirin EC] 81 mg PO DAILY 01/07/19 [History] Atorvastatin [Lipitor] 20 mg PO DAILY 01/07/19 [History] Cholecalciferol [Vitamin D3 (25 Mcg = 1000 Iu)] 125 mcg PO DAILY 01/07/19 [History] Finasteride [Proscar] 5 mg PO DAILY 01/07/19 [History] Sertraline HCl [Zoloft] 50 mg PO DAILY 02/05/19 [History] Tamsulosin [Flomax] 0.4 mg PO HS 07/06/19 [History] Acetaminophen [Tylenol Arthritis] 650 mg PO HS 07/27/20 [History] Ferrous Sulfate [Feosol] 325 mg PO DAILY 07/27/20 [History] Glimepiride [Amaryl] 1 mg PO DAILY 08/24/20 [History] Gabapentin [Neurontin] 100 mg PO HS PRN 12/06/20 [History] Nitroglycerin Sl Tabs [Nitrostat] 0.4 mg SL Q5M PRN 02/19/21 [History] Albuterol Inhaler [Ventolin Hfa Inhaler] 2 puff INHALATION RT-QID PRN 03/30/21 [History] Insulin Glargine,Hum.rec.anlog [Lantus Solostar] 22 unit SQ HS #0 04/03/21 [Rx] amLODIPine [Norvasc] 5 mg PO DAILY #30 tab 04/03/21 [Rx] Follow up Appointment(s)/Referral(s): Joy Reagan DO [Primary Care Provider] - 3 Days Patient Instructions/Handouts: Coronavirus Disease 2019 (COVID-19)
== END 2021-04-03 15:10 | disposition home or self-care (01) ==
LOC: EC 11:24 → INTOOBSV 13:21 → 4SSUR 13:21 → UNDODISIN 04-03 15:10
PROVIDERS: ADMIT Hospitalist; ATTEND Hospitalist
DX: A05.9 Bacterial foodborne intoxication, unspecified (principal); A08.4 Viral intestinal infection, unspecified; U07.1 COVID-19; N39.0 Urinary tract infection, site not specified; I25.10 Atherosclerotic heart disease of native coronary artery without angina pectoris; J44.9 Chronic obstructive pulmonary disease, unspecified; E11.9 Type 2 diabetes mellitus without complications; E78.5 Hyperlipidemia, unspecified; Z16.12 Extended spectrum beta lactamase (ESBL) resistance; R82.71 Bacteriuria; B96.20 Unspecified Escherichia coli [E. coli] as the cause of diseases classified elsewhere; I10 Essential (primary) hypertension; N40.0 Benign prostatic hyperplasia without lower urinary tract symptoms; I25.2 Old myocardial infarction; N40.1 Benign prostatic hyperplasia with lower urinary tract symptoms; N39.498 Other specified urinary incontinence; R15.9 Full incontinence of feces; Z95.5 Presence of coronary angioplasty implant and graft; Z95.1 Presence of aortocoronary bypass graft; Z90.5 Acquired absence of kidney; Z86.14 Personal history of Methicillin resistant Staphylococcus aureus infection; Z85.46 Personal history of malignant neoplasm of prostate; Z92.3 Personal history of irradiation; Z87.891 Personal history of nicotine dependence; Z86.19 Personal history of other infectious and parasitic diseases; Z87.01 Personal history of pneumonia (recurrent); Z98.890 Other specified postprocedural states; Z86.16 Personal history of COVID-19; Z79.82 Long term (current) use of aspirin; Z79.899 Other long term (current) drug therapy; Z79.4 Long term (current) use of insulin; Z82.49 Family history of ischemic heart disease and other diseases of the circulatory system; Z83.3 Family history of diabetes mellitus
CPT/HCPCS: 96366 ×3; 96367 ×2; 96360; 96365; 99284; 99285; 36415 ×2; 93005; 80053 ×2; 83615; 85025 ×2; 86140; 81001 ×2; 87040; 87086 ×2; 87077 ×2; 87186 ×2; 83036; 86769; 87636; 71045; 74018; G0378 ×2; S0138; J2543; J2185 ×2; J1335

== ENCOUNTER 2021-05-20 17:40 | Emergency (ER) | payer MEDICARE, OTHER ==
[2021-05-20 17:44] VITALS: BP 148/68; PULSE 72; RESP 18; TEMP 98.4
[2021-05-20] MEDS ORDERED: SODIUM CHLORIDE 0.9% 1,000 ML IV STA (17:58)
--- NOTE | 2021-05-20 18:36 | ED ---
Abdominal Pain HPI - General Chief Complaint: Abdominal Pain Stated Complaint: Hurting all over, abd pain Time Seen by Provider: 05/20/21 17:50 Source: patient, family, RN notes reviewed Mode of arrival: wheelchair Limitations: no limitations - History of Present Illness Initial Comments: This is a 76-year-old male who presents with complaints of lower abdominal pain going on for last couple days with black tarry stools also accompanying this. He's had decreased oral intake he states denies any fevers chills sweats no dysuria no hematuria. His family states he's been drinking a lot of fluids but the patient states he has immense. No fevers chills sweats no nausea no vomiting no other complaints or modifying factors patient is not on blood thi nners at this time he is on iron supplements but he states he normally does not have black colored stools MD Complaint: abdominal pain, other - Related Data Home Medications Medication Instructions Recorded Confirmed Aspirin [[place] Aspirin EC] 81 mg PO DAILY 01/07/19 05/20/21 Atorvastatin [Lipitor] 20 mg PO HS 01/07/19 05/20/21 Cholecalciferol [Vitamin D3 (25 25 mcg PO DAILY 01/07/19 05/20/21 Mcg = 1000 Iu)] Finasteride [Proscar] 5 mg PO DAILY 01/07/19 05/20/21 Sertraline HCl [Zoloft] 50 mg PO DAILY 02/05/19 05/20/21 Tamsulosin [Flomax] 0.4 mg PO HS 07/06/19 05/20/21 Acetaminophen [Tylenol Arthritis] 650 mg PO HS 07/27/20 05/20/21 Ferrous Sulfate [Feosol] 325 mg PO DAILY 07/27/20 05/20/21 Glimepiride [Amaryl] 1 mg PO DAILY 08/24/20 05/20/21 Gabapentin [Neurontin] 100 mg PO HS PRN 12/06/20 05/20/21 Nitroglycerin Sl Tabs [Nitrostat] 0.4 mg SL Q5M PRN 02/19/21 05/20/21 Albuterol Inhaler [Ventolin Hfa 2 puff INHALATION RT-QID PRN 03/30/21 05/20/21 Inhaler] Previous Rx's Medication Instructions Recorded Insulin Glargine,Hum.rec.anlog 22 unit SQ HS #0 04/03/21 [Lantus Solostar] amLODIPine [Norvasc] 5 mg PO DAILY #30 tab 04/03/21 Dicyclomine [Bentyl] 10 mg PO TID #10 capsule 05/20/21 Allergies Allergy/AdvReac Type Severity Reaction Status Date / Time No Known Allergies Allergy Verified 05/20/21 19:24 Review of Systems ROS Statement: Those systems with pertinent positive or pertinent negative responses have been documented in the HPI. ROS Other: All systems not noted in ROS Statement are negative. Past Medical History Past Medical History: Coronary Artery Disease (CAD), Cancer, COPD, Diabetes Lilian litus, Hyperlipidemia, Hypertension, Myocardial Infarction ([place]), Prostate Disorder Additional Past Medical History / Comment(s): prostate cancer with radiation > 20 years ago, nstemi, wears a brief incont urine/stool Last Myocardial Infarction Date:: 2017 History of Any Multi-Drug Resistant Organisms: ESBL, MRSA Date of last positivie culture/infection: 04/02/21 ESBL; 10/27/18 MRSA MDRO Source:: Urine-ESBL; Back-MRSA Past Surgical History: Coronary Bypass/CABG Additional Past Surgical History / Comment(s): 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,prostate bx, triple bypass 2017, bronchoscopy, picc line pt stated since removed Past Anesthesia/Blood Transfusion Reactions: No Reported Reaction Type of Cardiac Device: Permanent Pacemaker Device Placement Date:: 12/08/20 Past Psychological History: No Psychological Hx Reported Smoking Status: Former smoker Past Alcohol Use History: None Reported Past Drug Use History: None Reported - Past Family History Father Additional Family Medical History / Comment(s): old age Mother Family Medical History: Coronary Artery Disease (CAD), Diabetes Mellitus Additional Family Medical History / Comment(s): CABG General Exam - General Exam Comments Initial Comments: This is a well-developed well-nourished awake alert oriented times 3 male Limitations: no limitations General appearance: alert, in no apparent distress Head exam: Present: atraumatic, normocephalic, normal inspection Eye exam: Present: normal appearance, PERRL, EOMI. Absent: scleral icterus, conjunctival injection, periorbital swelling ENT exam: Present: mucous membranes dry Neck exam: Present: normal inspection. Absent: tenderness, meningismus, lymphadenopathy Respiratory exam: Present: normal lung sounds bilaterally. Absent: respiratory distress, wheezes, rales, rhonchi, stridor Cardiovascular Exam: Present: regular rate, normal rhythm, normal heart sounds. Absent: systolic murmur, diastolic murmur, rubs, gallop, clicks GI/Abdominal exam: Present: soft, tenderness, normal bowel sounds. Absent: distended, guarding, rebound, rigid Rectal exam: Present: other (Rectal exam performed with a female nurse present. The stool was dark in color no gross bleeding seen. Hemoccult pending). Absent: hemorrhoids, mass Extremities exam: Present: normal inspection, full ROM, normal capillary refill. Absent: tenderness, pedal edema, joint swelling, calf tenderness Back exam: Present: normal inspection Neurological exam: Present: alert, oriented X3, CN II-XII intact Psychiatric exam: Present: normal affect, normal mood Skin exam: Present: warm, dry, intact, normal color. Absent: rash Course Vital Signs 05/20/21 17:42 Temperature 98.4 F Pulse Rate 72 Respiratory 18 Rate Blood Pressure 148/68 O2 Sat by Pulse 96 Oximetry - Reevaluation(s) Reevaluation #1: 05/20/21 20:03 The patient was found to have to bedbugs on his person. He did get showered in the emergency department Medical Decision Making - Medical Decision Making I did discuss findings with the patient the imaging is unremarkable Hemoccult was negative the presentation consistent with spastic colon patient will be discharged with a prescription of Bentyl - Lab Data Result diagrams: 05/20/21 18:35 05/20/21 18:35 Lab Results 05/20/21 05/20/21 05/20/21 Range/Units 18:35 18:35 18:35 WBC 6.8 (3.8-10.6) k/uL RBC 4.00 L (4.30-5.90) m/uL Hgb 12.5 L (13.0-17.5) gm/dL Hct 36.8 L (39.0-53.0) % MCV 92.1 (80.0-100.0) fL MCH 31.2 (25.0-35.0) pg MCHC 33.8 (31.0-37.0) g/dL RDW 15.4 (11.5-15.5) % Plt Count 164 (150-450) k/uL MPV 7.6 Neutrophils % 79 % Lymphocytes % 11 % Monocytes % 5 % Eosinophils % 4 % Basophils % 1 % Neutrophils # 5.4 (1.3-7.7) k/uL Lymphocytes # 0.7 L (1.0-4.8) k/uL Monocytes # 0.3 (0-1.0) k/uL Eosinophils # 0.2 (0-0.7) k/uL Basophils # 0.1 (0-0.2) k/uL PT 10.0 (9.0-12.0) sec INR 0.9 (<1.2) APTT 22.1 (22.0-30.0) sec Sodium 138 (137-145) mmol/L Potassium 4.3 (3.5-5.1) mmol/L Chloride 103 (98-107) mmol/L Carbon Dioxide 29 (22-30) mmol/L Anion Gap 6 mmol/L BUN 26 H (9-20) mg/dL Creatinine 1.04 (0.66-1.25) mg/dL Est GFR (CKD-EPI)AfAm 81 (>60 ml/min/1.73 sqM) Est GFR (CKD-EPI)NonAf 70 (>60 ml/min/1.73 sqM) Glucose 156 H (74-99) mg/dL Plasma Lactic Acid Chauncey (0.7-2.0) mmol/L Calcium 9.2 (8.4-10.2) mg/dL Total Bilirubin 0.3 (0.2-1.3) mg/dL AST 27 (17-59) U/L ALT 21 (4-49) U/L Alkaline Phosphatase 97 (38-126) U/L Creatine Kinase 133 (55-170) U/L Troponin I (0.000-0.034) ng/mL Total Protein 6.1 L (6.3-8.2) g/dL Albumin 3.8 (3.5-5.0) g/dL Amylase 48 (30-110) U/L Lipase 43 (23-300) U/L Stool Occult Blood (Negative) 05/20/21 05/20/21 05/20/21 Range/Units 18:35 18:35 18:35 WBC (3.8-10.6) k/uL RBC (4.30-5.90) m/uL Hgb (13.0-17.5) gm/dL Hct (39.0-53.0) % MCV (80.0-100.0) fL MCH (25.0-35.0) pg MCHC (31.0-37.0) g/dL RDW (11.5-15.5) % Plt Count (150-450) k/uL MPV Neutrophils % % Lymphocytes % % Monocytes % % Eosinophils % % Basophils % % Neutrophils # (1.3-7.7) k/uL Lymphocytes # (1.0-4.8) k/uL Monocytes # (0-1.0) k/uL Eosinophils # (0-0.7) k/uL Basophils # (0-0.2) k/uL PT (9.0-12.0) sec INR (<1.2) APTT (22.0-30.0) sec Sodium (137-145) mmol/L Potassium (3.5-5.1) mmol/L Chloride (98-107) mmol/L Carbon Dioxide (22-30) mmol/L Anion Gap mmol/L BUN (9-20) mg/dL Creatinine (0.66-1.25) mg/dL Est GFR (CKD-EPI)AfAm (>60 ml/min/1.73 sqM) Est GFR (CKD-EPI)NonAf (>60 ml/min/1.73 sqM) Glucose (74-99) mg/dL Plasma Lactic Acid Chauncey 1.5 (0.7-2.0) mmol/L Calcium (8.4-10.2) mg/dL Total Bilirubin (0.2-1.3) mg/dL AST (17-59) U/L ALT (4-49) U/L Alkaline Phosphatase (38-126) U/L Creatine Kinase (55-170) U/L Troponin I 0.016 (0.000-0.034) ng/mL Total Protein (6.3-8.2) g/dL Albumin (3.5-5.0) g/dL Amylase (30-110) U/L Lipase (23-300) U/L Stool Occult Blood Negative (Negative) - Radiology Data Radiology results: report reviewed (Imaging no acute findings), image reviewed Disposition Clinical Impression: Abdominal pain, Spastic colon, Feared condition not demonstrated Disposition: HOME SELF-CARE Condition: Good Instructions (If sedation given, give patient instructions): Abdominal Pain (ED), Irritable Bowel Syndrome (ED) Prescriptions: Dicyclomine [Bentyl] 10 mg PO TID #10 capsule Is patient prescribed a controlled substance at d/c from ED?: No Referrals: Joy Reagan DO [Primary Care Provider] - 1-2 days
[2021-05-20 18:48] LABS: Basophils # (A) 0.1 k/uL (0-0.2); Basophils % (A) 1 %; Eosinophils # (A) 0.2 k/uL (0-0.7); Eosinophils % (A) 4 %; HCT 36.8 % (39.0-53.0); HGB 12.5 gm/dL (13.0-17.5); Lymphocytes # (A) 0.7 k/uL (1.0-4.8); Lymphocytes % (A) 11 %; MCH 31.2 pg (25.0-35.0); MCHC 33.8 g/dL (31.0-37.0); MCV 92.1 fL (80.0-100.0); Mean Platelet Volume 7.6; Monocytes # (A) 0.3 k/uL (0-1.0); Monocytes % (A) 5 %; Neutrophils # (A) 5.4 k/uL (1.3-7.7); Neutrophils % (A) 79 %; Platelet Count 164 k/uL (150-450); RDW 15.4 % (11.5-15.5); WBC 6.8 k/uL (3.8-10.6)
[2021-05-20 18:57] LABS: Albumin 3.8 g/dL (3.5-5.0); Calcium 9.2 mg/dL (8.4-10.2); Potassium 4.3 mmol/L (3.5-5.1); Total Bilirubin 0.3 mg/dL (0.2-1.3); Total Protein 6.1 g/dL (6.3-8.2)
[2021-05-20 19:04] LABS: INR 0.9 (<1.2); Partial Thromboplastin Time 22.1 sec (22.0-30.0)
--- NOTE | 2021-05-20 19:38 | CT ---
EXAMINATION TYPE: CT abdomen pelvis w con DATE OF EXAM: 05/20/2021 COMPARISON: 02/07/2020 HISTORY: Abdominal pain. CT DLP: 1777.8 mGycm Automated exposure control for dose reduction was used. TECHNIQUE: Helical acquisition of images was performed from the lung bases through the pelvis. CONTRAST: Performed without Oral Contrast and with IV Contrast, patient injected with 100 mL of Isovue 300. FINDINGS: LUNG BASES: Small right lower lobe consolidation. LIVER/GB: No significant abnormality is appreciated. PANCREAS: No significant abnormality is seen. SPLEEN: No significant abnormality is seen. ADRENALS: No significant abnormality is seen. KIDNEYS: No acute abnormality is seen. Stable 2.9 cm simple left renal cyst. Right nephrectomy noted. FREE AIR: No free air is visualized. RETROPERITONEAL ADENOPATHY: None visualized REPRODUCTIVE ORGANS: No significant abnormality is seen URINARY BLADDER: No significant abnormality is seen. PELVIC ADENOPATHY: None visualized. OSSEOUS STRUCTURES: No significant abnormality is seen. BOWEL: No acute abnormality is seen. Stable moderate fat-containing ventral hernia. No bowel obstruc tion, free air or fluid. Colonic diverticulosis without acute diverticulitis. OTHER: Moderate to advanced atherosclerotic disease. IMPRESSION: Small right lower lobe consolidation. Correlate for pneumonia. OTHERWISE NO ACUTE ABNORMALITY OF THE ABDOMEN/PELVIS. CHRONIC AND INCIDENTAL FINDINGS ABOVE.
== END 2021-05-20 20:21 | disposition home or self-care (01) ==
LOC: EC 17:40
DX: K58.9 Irritable bowel syndrome, unspecified (principal); E11.9 Type 2 diabetes mellitus without complications; I10 Essential (primary) hypertension; E78.5 Hyperlipidemia, unspecified; I25.10 Atherosclerotic heart disease of native coronary artery without angina pectoris; I25.2 Old myocardial infarction; J44.9 Chronic obstructive pulmonary disease, unspecified; Z79.4 Long term (current) use of insulin; Z79.82 Long term (current) use of aspirin; Z79.899 Other long term (current) drug therapy; Z82.49 Family history of ischemic heart disease and other diseases of the circulatory system; Z83.3 Family history of diabetes mellitus; Z85.46 Personal history of malignant neoplasm of prostate; Z87.891 Personal history of nicotine dependence; Z95.1 Presence of aortocoronary bypass graft
CPT/HCPCS: 96360 ×2; 99284 ×2; 36415; 80053; 82150; 82550; 83605; 83690; 84484; 85025; 85610; 85730; 82272; 74177; Q9967

== ENCOUNTER 2021-09-14 10:46 | Emergency (ER) | payer MEDICARE, OTHER ==
[2021-09-14 10:54] VITALS: RESP 18
--- NOTE | 2021-09-14 11:31 | ED ---
General Adult HPI - General Chief complaint: Weakness Stated complaint: Fall Time Seen by Provider: 09/14/21 10:50 Source: patient, RN notes reviewed, old records reviewed Mode of arrival: ambulatory Limitations: no limitations - History of Present Illness Initial comments: This a 76-year-old male who presents to the emergency department complaining melissa t he has fallen on Friday and again early this morning. Patient states she goes to sit down to the tips over 4. Patient states he hurt his right shoulder and he has a little bit of right-sided neck pain. Patient states he did strike his head but denies headache currently. Patient denies any numbness or weakness. Patient states her some bruising on the upper right arm at the shoulder area. Patient also states is a little bit of bruising on the anterior chest. Patient denies any recent fever chills or cough per patient denies any chest pain palpitations difficulty breathing shortness of breath per patient states he just bends over and loses his balance per patient denies abdominal pain patient denies nausea vomiting diarrhea. - Related Data Home Medications Medication Instructions Recorded Confirmed Aspirin [[place] Aspirin EC] 81 mg PO DAILY 01/07/19 09/14/21 Atorvastatin [Lipitor] 20 mg PO DAILY 01/07/19 09/14/21 Finasteride [Proscar] 5 mg PO DAILY 01/07/19 09/14/21 Sertraline HCl [Zoloft] 50 mg PO DAILY 02/05/19 09/14/21 Tamsulosin [Flomax] 0.4 mg PO HS 07/06/19 09/14/21 Acetaminophen [Tylenol Arthritis] 650 mg PO HS 07/27/20 09/14/21 Ferrous Sulfate [Feosol] 325 mg PO DAILY 07/27/20 09/14/21 Glimepiride [Amaryl] 1 mg PO DAILY 08/24/20 09/14/21 Gabapentin [Neurontin] 100 mg PO HS PRN 12/06/20 09/14/21 Nitroglycerin Sl Tabs [Nitrostat] 0.4 mg SL Q5M PRN 02/19/21 09/14/21 Ascorbic Acid [Vitamin C] 500 mg PO DAILY 09/14/21 09/14/21 Cholecalciferol (Vitamin D3) 125 mcg PO DAILY 09/14/21 09/14/21 [Vitamin D3 (125 MCG = 5,000 IU)] Insulin Glargine,Hum.rec.anlog 28 unit SQ HS 09/14/21 09/14/21 [Lantus Solostar Pen] Losartan Potassium [Cozaar] 25 mg PO HS 09/14/21 09/14/21 Zinc 50 mg PO DAILY 09/14/21 09/14/21 Previous Rx's Medication Instructions Recorded Sulfamethox-Tmp 800-160Mg [Bactrim 1 each PO Q12HR #20 tab 09/14/21 DS 800-160 mg] Allergies Allergy/AdvReac Type Severity Reaction Status Date / Time No Known Allergies Allergy Verified 09/14/21 12:44 Review of Systems ROS Statement: Those systems with pertinent positive or pertinent negative responses have been documented in the HPI. ROS Other: All systems not noted in ROS Statement are negative. Past Medical History Past Medical History: Coronary Artery Disease (CAD), Cancer, COPD, Diabetes Mellitus, Hyperlipidemia, Hypertension, Myocardial Infarction (DC), Prostate Disorder Additional Past Medical History / Comment(s): prostate cancer with radiation > 20 years ago, nstemi, wears a brief incont urine/stool Last Myocardial Infarction Date:: 2017 History of Any Multi-Drug Resistant Organisms: ESBL, MRSA Date of last positivie culture/infection: 04/02/21 ESBL; 10/27/18 MRSA MDRO Source:: Urine-ESBL; Back-MRSA Past Surgical History: Coronary Bypass/CABG Additional Past Surgical History / Comment(s): 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,prostate bx, triple bypass 2017, bronchoscopy, picc line pt stated since removed Past Anesthesia/Blood Transfusion Reactions: No Reported Reaction Type of Cardiac Device: Permanent Pacemaker Device Placement Date:: 12/08/20 Past Psychological History: No Psychological Hx Reported Smoking Status: Former smoker Past Alcohol Use History: None Reported Past Drug Use History: None Reported - Past Family History Father Additional Family Medical History / Comment(s): old age Mother Family Medical History: Coronary Artery Disease (CAD), Diabetes Mellitus Additional Family Medical History / Comment(s): CABG General Exam - General Exam Comments Initial Comments: GENERAL: Patient is well-developed and well-nourished. Patient is nontoxic and well- hydrated and is in mild distress. ENT: Neck is soft and supple. No significant lymphadenopathy is noted. Oropharynx is clear. Moist mucous membranes. Neck has full range of motion without eliciting any pain. EYES: The sclera were anicteric and conjunctiva were pink and moist. Extraocular movements were intact and pupils were equal round and reactive to light. Eyelids were unremarkable. PULMONARY: Unlabored respirations. Good breath sounds bilaterally. No audible rales rhonchi or wheezing was noted. CARDIOVASCULAR: There is a regular rate and rhythm without any murmurs gallops or rubs. ABDOMEN: Soft and nontender with normal bowel sounds. SKIN: Skin is clear with no lesions or rashes and otherwise unremarkable. NEUROLOGIC: Patient is alert and oriented x3. Cranial nerves II through XII are grossly intact. Motor and sensory are also intact. Normal speech, volume and content. Symmetrical smile. MUSCULOSKELETAL: Normal extremities with adequate strength and full range of motion. Patient has a little ecchymosis and tenderness to the lateral aspect of the right shoulder. Patient also has a little ecchymosis to the chest wall. LYMPHATICS: No significant lymphadenopathy is noted PSYCHIATRIC: Normal psychiatric evaluation. Limitations: no limitations Course Vital Signs 09/14/21 10:50 Temperature 98.1 F Pulse Rate 64 Respiratory 18 Rate Blood Pressure 166/60 O2 Sat by Pulse 98 Oximetry Medical Decision Making - Medical Decision Making EKG shows normal sinus rhythm at 63 bpm SC interval 166 years 154 QT interval 48 QTC is 499. Patient's EKG shows a right bundle branch block. Patient's EKG shows no ST segment elevation or depression. Urine showed a urinary tract infection patient was given a gram of Rocephin. - Lab Data Result diagrams: 09/14/21 12:24 09/14/21 12:24 Lab Results 09/14/21 09/14/21 09/14/21 Range/Units 12:04 12:24 12:24 WBC 8.0 (3.8-10.6) k/uL RBC 4.43 (4.30-5.90) m/uL Hgb 13.2 (13.0-17.5) gm/dL Hct 40.9 (39.0-53.0) % MCV 92.3 (80.0-100.0) fL MCH 29.7 (25.0-35.0) pg MCHC 32.2 (31.0-37.0) g/dL RDW 15.3 (11.5-15.5) % Plt Count 171 (150-450) k/uL MPV 7.9 Neutrophils % 81 % Lymphocytes % 11 % Monocytes % 4 % Eosinophils % 2 % Basophils % 1 % Neutrophils # 6.5 (1.3-7.7) k/uL Lymphocytes # 0.9 L (1.0-4.8) k/uL Monocytes # 0.3 (0-1.0) k/uL Eosinophils # 0.2 (0-0.7) k/uL Basophils # 0.1 (0-0.2) k/uL PT 10.0 (9.0-12.0) sec INR 0.9 (<1.2) APTT 22.8 (22.0-30.0) sec Sodium (137-145) mmol/L Potassium (3.5-5.1) mmol/L Chloride (98-107) mmol/L Carbon Dioxide (22-30) mmol/L Anion Gap mmol/L BUN (9-20) mg/dL Creatinine (0.66-1.25) mg/dL Est GFR (CKD-EPI)AfAm (>60 ml/min/1.73 sqM) Est GFR (CKD-EPI)NonAf (>60 ml/min/1.73 sqM) Glucose (74-99) mg/dL Plasma Lactic Acid Chauncey (0.7-2.0) mmol/L Calcium (8.4-10.2) mg/dL Magnesium (1.6-2.3) mg/dL Total Bilirubin (0.2-1.3) mg/dL AST (17-59) U/L ALT (4-49) U/L Alkaline Phosphatase (38-126) U/L Troponin I (0.000-0.034) ng/mL Total Protein (6.3-8.2) g/dL Albumin (3.5-5.0) g/dL Urine Color Urine Appearance (Clear) Urine pH (5.0-8.0) Ur Specific [place] (1.001-1.035) Urine Protein (Negative) Urine Glucose (UA) (Negative) Urine Ketones (Negative) Urine Blood (Negative) Urine Nitrite (Negative) Urine Bilirubin (Negative) Urine Urobilinogen (<2.0) mg/dL Ur Leukocyte Esterase (Negative) Urine RBC (0-5) /hpf Urine WBC (0-5) /hpf Urine WBC Clumps (None) /hpf Ur Squamous Epith Cells (0-4) /hpf Urine Bacteria (None) /hpf Urine Mucus (None) /hpf Coronavirus (PCR) Not Detected (Not Detectd) 09/14/21 09/14/21 09/14/21 Range/Units 12:24 12:24 12:24 WBC (3.8-10.6) k/uL RBC (4.30-5.90) m/uL Hgb (13.0-17.5) gm/dL Hct (39.0-53.0) % MCV (80.0-100.0) fL MCH (25.0-35.0) pg MCHC (31.0-37.0) g/dL RDW (11.5-15.5) % Plt Count (150-450) k/uL MPV Neutrophils % % Lymphocytes % % Monocytes % % Eosinophils % % Basophils % % Neutrophils # (1.3-7.7) k/uL Lymphocytes # (1.0-4.8) k/uL Monocytes # (0-1.0) k/uL Eosinophils # (0-0.7) k/uL Basophils # (0-0.2) k/uL PT (9.0-12.0) sec INR (<1.2) APTT (22.0-30.0) sec Sodium 138 (137-145) mmol/L Potassium 5.2 H (3.5-5.1) mmol/L Chloride 103 (98-107) mmol/L Carbon Dioxide 25 (22-30) mmol/L Anion Gap 10 mmol/L BUN 21 H (9-20) mg/dL Creatinine 1.12 (0.66-1.25) mg/dL Est GFR (CKD-EPI)AfAm 74 (>60 ml/min/1.73 sqM) Est GFR (CKD-EPI)NonAf 64 (>60 ml/min/1.73 sqM) Glucose 123 H (74-99) mg/dL Plasma Lactic Acid Chauncey 1.3 (0.7-2.0) mmol/L Calcium 10.0 (8.4-10.2) mg/dL Magnesium 1.8 (1.6-2.3) mg/dL Total Bilirubin 0.7 (0.2-1.3) mg/dL AST 29 (17-59) U/L ALT 23 (4-49) U/L Alkaline Phosphatase 103 (38-126) U/L Troponin I (0.000-0.034) ng/mL Total Protein 7.0 (6.3-8.2) g/dL Albumin 4.1 (3.5-5.0) g/dL Urine Color Light Yellow Urine Appearance Cloudy (Clear) Urine pH 5.5 (5.0-8.0) Ur Specific [place] 1.012 (1.001-1.035) Urine Protein 1+ H (Negative) Urine Glucose (UA) Negative (Negative) Urine Ketones Negative (Negative) Urine Blood Trace H (Negative) Urine Nitrite Positive (Negative) Urine Bilirubin Negative (Negative) Urine Urobilinogen <2.0 (<2.0) mg/dL Ur Leukocyte Esterase Large H (Negative) Urine RBC <1 (0-5) /hpf Urine WBC 176 H (0-5) /hpf Urine WBC Clumps Many H (None) /hpf Ur Squamous Epith Cells <1 (0-4) /hpf Urine Bacteria Rare H (None) /hpf Urine Mucus Rare H (None) /hpf Coronavirus (PCR) (Not Detectd) 09/14/21 Range/Units 12:24 WBC (3.8-10.6) k/uL RBC (4.30-5.90) m/uL Hgb (13.0-17.5) gm/dL Hct (39.0-53.0) % MCV (80.0-100.0) fL MCH (25.0-35.0) pg MCHC (31.0-37.0) g/dL RDW (11.5-15.5) % Plt Count (150-450) k/uL MPV Neutrophils % % Lymphocytes % % Monocytes % % Eosinophils % % Basophils % % Neutrophils # (1.3-7.7) k/uL Lymphocytes # (1.0-4.8) k/uL Monocytes # (0-1.0) k/uL Eosinophils # (0-0.7) k/uL Basophils # (0-0.2) k/uL PT (9.0-12.0) sec INR (<1.2) APTT (22.0-30.0) sec Sodium (137-145) mmol/L Potassium (3.5-5.1) mmol/L Chloride (98-107) mmol/L Carbon Dioxide (22-30) mmol/L Anion Gap mmol/L BUN (9-20) mg/dL Creatinine (0.66-1.25) mg/dL Est GFR (CKD-EPI)AfAm (>60 ml/min/1.73 sqM) Est GFR (CKD-EPI)NonAf (>60 ml/min/1.73 sqM) Glucose (74-99) mg/dL Plasma Lactic Acid Chauncey (0.7-2.0) mmol/L Calcium (8.4-10.2) mg/dL Magnesium (1.6-2.3) mg/dL Total Bilirubin (0.2-1.3) mg/dL AST (17-59) U/L ALT (4-49) U/L Alkaline Phosphatase (38-126) U/L Troponin I 0.019 (0.000-0.034) ng/mL Total Protein (6.3-8.2) g/dL Albumin (3.5-5.0) g/dL Urine Color Urine Appearance (Clear) Urine pH (5.0-8.0) Ur Specific [place] (1.001-1.035) Urine Protein (Negative) Urine Glucose (UA) (Negative) Urine Ketones (Negative) Urine Blood (Negative) Urine Nitrite (Negative) Urine Bilirubin (Negative) Urine Urobilinogen (<2.0) mg/dL Ur Leukocyte Esterase (Negative) Urine RBC (0-5) /hpf Urine WBC (0-5) /hpf Urine WBC Clumps (None) /hpf Ur Squamous Epith Cells (0-4) /hpf Urine Bacteria (None) /hpf Urine Mucus (None) /hpf Coronavirus (PCR) (Not Detectd) Disposition Clinical Impression: Contusion of shoulder, Weakness, Urinary tract infection Disposition: HOME SELF-CARE Instructions (If sedation given, give patient instructions): Urinary Tract Infection in Men (ED) Prescriptions: Sulfamethox-Tmp 800-160Mg [Bactrim DS 800-160 mg] 1 each PO Q12HR #20 tab Is patient prescribed a controlled substance at d/c from ED?: No Referrals: Joy Reagan DO [Primary Care Provider] - 1-2 days Time of Disposition: 14:30
[2021-09-14] MEDS ORDERED: SODIUM CHLORIDE 0.9% 1,000 ML IV ONE (11:42)
[2021-09-14 12:51] LABS: Basophils # (A) 0.1 k/uL (0-0.2); Basophils % (A) 1 %; Eosinophils # (A) 0.2 k/uL (0-0.7); Eosinophils % (A) 2 %; HCT 40.9 % (39.0-53.0); HGB 13.2 gm/dL (13.0-17.5); Lymphocytes # (A) 0.9 k/uL (1.0-4.8); Lymphocytes % (A) 11 %; MCH 29.7 pg (25.0-35.0); MCHC 32.2 g/dL (31.0-37.0); MCV 92.3 fL (80.0-100.0); Mean Platelet Volume 7.9; Monocytes # (A) 0.3 k/uL (0-1.0); Monocytes % (A) 4 %; Neutrophils # (A) 6.5 k/uL (1.3-7.7); Neutrophils % (A) 81 %; Platelet Count 171 k/uL (150-450); RBC 4.43 m/uL (4.30-5.90); RDW 15.3 % (11.5-15.5)
[2021-09-14 12:57] LABS: Albumin 4.1 g/dL (3.5-5.0); INR 0.9 (<1.2); Magnesium 1.8 mg/dL (1.6-2.3); Partial Thromboplastin Time 22.8 sec (22.0-30.0); Potassium 5.2 mmol/L (3.5-5.1); Total Bilirubin 0.7 mg/dL (0.2-1.3)
--- NOTE | 2021-09-14 12:59 | CT ---
EXAMINATION TYPE: CT brain cspine wo con DATE OF EXAM: 09/14/2021 COMPARISON: Prior trauma CT July 06, 2019 HISTORY: multiple recent falls with headache and neck pain CT DLP: 1624.8 mGycm. Automated Exposure Control for Dose Reduction was Utilized. TECHNIQUE: CT scan of the head and cervical spine are performed without contrast. FINDINGS: There is no acute intracranial hemorrhage or midline shift identified. Mild to moderate v entricular and sulcal prominence. Mild to moderate low attenuation in the deep and periventricular wh ite matter redemonstrated. The calvarium is intact. The globes are intact and the visualized sinuses are clear. Cervical spine is visualized in its entirety from C1 through upper thoracic levels and demonstrates s table grade 1 retrolisthesis C3 on C4 and C4 on C5 without evidence of acute fracture or dislocation. Prevertebral soft tissue appears within normal limits. The C1-C2 articulation is within normal wallace its on the coronal images. Vertebral body heights are maintained. Moderate disc space narrowing C3-C4 and C4-C5 levels slightly more prominent from prior. Right-sided posterior spurring redemonstrated. Large anterior osteophytes C5-C7 level redemonstrated. Posterior calcified disc herniation C3-C4 leve l effaces the anterior thecal sac. Review of axial images shows multilevel uncovertebral and facet degenerative changes contributing to multilevel bilateral neural foraminal narrowing. Thyroid gland appears within normal limits. Lung api mala show no pneumothorax. IMPRESSION: 1. There is no acute fracture or dislocation evident in the cervical spine. 2. No acute intracranial hemorrhage or midline shift is seen. [id number]-[id number]-[id number] diffuse cerebral atrop hy and chronic small vessel ischemic change redemonstrated.
--- NOTE | 2021-09-14 13:01 | XR ---
EXAMINATION TYPE: XR chest 2V DATE OF EXAM: 09/14/2021 COMPARISON: Chest x-ray April 03, 2021 HISTORY: Fall injury with pain TECHNIQUE: Frontal and lateral views of the chest are obtained. FINDINGS: There is new patchy right basilar opacity. There is persistent elevated right hemidiaphrag m. Persistent mild cardiomegaly with dual-lead pacemaker. Overlying sternal wires are redemonstrated. Mild multilevel spurring in the spine IMPRESSION: Mild cardiomegaly and chronic changes with new patchy right basilar acute infiltrate and /or atelectasis
--- NOTE | 2021-09-14 13:03 | XR ---
EXAMINATION TYPE: XR shoulder complete RT DATE OF EXAM: 09/14/2021 COMPARISON: Right shoulder x-ray February 05, 2019 HISTORY: Fall injury with pain TECHNIQUE: 3 views right shoulder. FINDINGS: Osseous structures are demineralized. Moderate narrowing and capsular hypertrophy at the ac romioclavicular joint more prominent from prior. Moderate narrowing glenohumeral joint redemonstrated . No acute displaced fracture. Visualized ribs are intact. IMPRESSION: As above.
[2021-09-14 13:39] LABS: Appearance,Urine Cloudy (Clear); Bacteria,Urine Rare /hpf; Bilirubin,Urine Negative (Negative); Blood,Urine Trace (Negative); Color,Urine Light Yellow; Glucose,Urine (UA) Negative (Negative); Ketones,Urine Negative (Negative); Leukocyte Esterase,Urine Large (Negative); Mucus,Urine Rare /hpf; Nitrite,Urine Positive (Negative); PH, Urine 5.5 (5.0-8.0); Protein,Urine 1+ (Negative); RBC,Urine <1 /hpf (0-5); Specific Gravity,Urine 1.012 (1.001-1.035); Squamous Epithelial Cell,Urine <1 /hpf (0-4); Urobilinogen,Urine <2.0 mg/dL (<2.0); WBC,Urine 176 /hpf (0-5)
[2021-09-14] MEDS ORDERED: cefTRIAXone IN SWFI 1,000 MG/10 ML SYRINGE IVP STA (14:24)
[2021-09-14] MEDS ORDERED: KETOROLAC 15 MG/ML 1 ML VIAL IVP STA (14:27)
[2021-09-14 15:20] VITALS: BP 144/76; PULSE 70; TEMP 98.2
== END 2021-09-14 15:10 | disposition home or self-care (01) ==
LOC: EC 10:46
DX: S40.011A Contusion of right shoulder, initial encounter (principal); N39.0 Urinary tract infection, site not specified; R53.1 Weakness; S20.211A Contusion of right front wall of thorax, initial encounter; E11.9 Type 2 diabetes mellitus without complications; I10 Essential (primary) hypertension; I25.2 Old myocardial infarction; I25.10 Atherosclerotic heart disease of native coronary artery without angina pectoris; E78.5 Hyperlipidemia, unspecified; J44.9 Chronic obstructive pulmonary disease, unspecified; Z87.891 Personal history of nicotine dependence; Z79.82 Long term (current) use of aspirin; Z79.4 Long term (current) use of insulin; Z79.899 Other long term (current) drug therapy; W18.30XA Fall on same level, unspecified, initial encounter
CPT/HCPCS: 96374; 96375; 99284; 36415; 93005; 80053; 83605; 83735; 84484; 85025; 85610; 85730; 81001; 87086; 87635; 73030; 71046; 72125; 70450; J0696; J1885; 87077; 87186

== ENCOUNTER 2021-10-27 07:41 | Emergency (ER) | payer MEDICARE, OTHER ==
[2021-10-27 07:50] VITALS: RESP 18
[2021-10-27] MEDS ORDERED: MORPHINE SULFATE 4 MG/ML SYRINGE IM STA (07:57)
[2021-10-27] MEDS ORDERED: MORPHINE SULFATE 4 MG/ML SYRINGE IV STA (07:57)
[2021-10-27] MEDS ORDERED: LIDOCAINE 1% INJ 10MG/ML (20 ML MDV) SQ ONE (07:58)
[2021-10-27 08:24] LABS: Basophils % (A) 0 %; Eosinophils # (A) 0.3 k/uL (0-0.7); Eosinophils % (A) 3 %; HCT 37.9 % (39.0-53.0); HGB 12.4 gm/dL (13.0-17.5); Lymphocytes # (A) 0.8 k/uL (1.0-4.8); Lymphocytes % (A) 9 %; MCH 30.2 pg (25.0-35.0); MCHC 32.7 g/dL (31.0-37.0); MCV 92.2 fL (80.0-100.0); Mean Platelet Volume 7.8; Monocytes # (A) 0.4 k/uL (0-1.0); Monocytes % (A) 4 %; Neutrophils # (A) 7.5 k/uL (1.3-7.7); Neutrophils % (A) 83 %; Platelet Count 207 k/uL (150-450); RBC 4.11 m/uL (4.30-5.90); RDW 14.8 % (11.5-15.5)
[2021-10-27 08:32] LABS: Albumin 3.4 g/dL (3.5-5.0); Calcium 8.9 mg/dL (8.4-10.2); Potassium 4.5 mmol/L (3.5-5.1); Total Bilirubin 0.5 mg/dL (0.2-1.3); Total Protein 6.3 g/dL (6.3-8.2)
--- NOTE | 2021-10-27 09:15 | ED ---
General Adult HPI - General Chief complaint: Skin/Abscess/Foreign Body Stated complaint: cyst on hip Time Seen by Provider: 10/27/21 07:51 Source: patient, family, RN notes reviewed Mode of arrival: wheelchair Limitations: no limitations - History of Present Illness Initial comments: Patient is a 76-year-old male that presents to the emergency department complaining of a left buttock/hip abscess. Patient notes this began 3 weeks ago he's tried at home using hydrogen peroxide alcohol and saline spray. Patient notes he recently got off antibiotics for upper respiratory tract infection. Patient notes that he was supposed was doctor tomorrow but was unable to wait any longer so he came to the emergency room. Patient denied any other symptoms. He was otherwise well-appearing. He denied any chest pain first breath headache nausea vomiting diarrhea constipation fever fatigue chills. - Related Data Home Medications Medication Instructions Recorded Confirmed Aspirin [[place] Aspirin EC] 81 mg PO DAILY 01/07/19 09/14/21 Atorvastatin [Lipitor] 20 mg PO DAILY 01/07/19 09/14/21 Finasteride [Proscar] 5 mg PO DAILY 01/07/19 09/14/21 Sertraline HCl [Zoloft] 50 mg PO DAILY 02/05/19 09/14/21 Tamsulosin [Flomax] 0.4 mg PO HS 07/06/19 09/14/21 Acetaminophen [Tylenol Arthritis] 650 mg PO HS 07/27/20 09/14/21 Ferrous Sulfate [Feosol] 325 mg PO DAILY 07/27/20 09/14/21 Glimepiride [Amaryl] 1 mg PO DAILY 08/24/20 09/14/21 Gabapentin [Neurontin] 100 mg PO HS PRN 12/06/20 09/14/21 Nitroglycerin Sl Tabs [Nitrostat] 0.4 mg SL Q5M PRN 02/19/21 09/14/21 Ascorbic Acid [Vitamin C] 500 mg PO DAILY 09/14/21 09/14/21 Cholecalciferol (Vitamin D3) 125 mcg PO DAILY 09/14/21 09/14/21 [Vitamin D3 (125 MCG = 5,000 IU)] Insulin Glargine,Hum.rec.anlog 28 unit SQ HS 09/14/21 09/14/21 [Lantus Solostar Pen] Losartan Potassium [Cozaar] 25 mg PO HS 09/14/21 09/14/21 Zinc 50 mg PO DAILY 09/14/21 09/14/21 Previous Rx's Medication Instructions Recorded Sulfamethox-Tmp 800-160Mg [Bactrim 1 each PO Q12HR #20 tab 09/14/21 DS 800-160 mg] Cephalexin [Keflex] 500 mg PO Q6HR #40 cap 10/27/21 Sulfamethox-Tmp 800-160Mg [Bactrim 1 each PO Q12HR #20 tab 10/27/21 Ds] Allergies Allergy/AdvReac Type Severity Reaction Status Date / Time No Known Allergies Allergy Verified 10/27/21 07:50 Review of Systems ROS Statement: Those systems with pertinent positive or pertinent negative responses have been documented in the HPI. ROS Other: All systems not noted in ROS Statement are negative. Past Medical History Past Medical History: Coronary Artery Disease (CAD), Cancer, COPD, Diabetes Mellitus, Hyperlipidemia, Hypertension, Myocardial Infarction (SD), Prostate Disorder Additional Past Medical History / Comment(s): prostate cancer with radiation > 20 years ago, nstemi, wears a brief incont urine/stool Last Myocardial Infarction Date:: 2017 History of Any Multi-Drug Resistant Organisms: ESBL, MRSA Date of last positivie culture/infection: 09/14/21 ESBL; 10/27/18 MRSA MDRO Source:: Urine-ESBL; Back-MRSA Past Surgical History: Coronary Bypass/CABG Additional Past Surgical History / Comment(s): 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,prostate bx, triple bypass 2017, bronchoscopy, picc line pt stated since removed Past Anesthesia/Blood Transfusion Reactions: No Reported Reaction Type of Cardiac Device: Permanent Pacemaker Device Placement Date:: 12/08/20 Past Psychological History: No Psychological Hx Reported Smoking Status: Former smoker Past Alcohol Use History: None Reported Past Drug Use History: None Reported - Past Family History Father Additional Family Medical History / Comment(s): old age Mother Family Medical History: Coronary Artery Disease (CAD), Diabetes Mellitus Additional Family Medical History / Comment(s): CABG General Exam Limitations: no limitations General appearance: alert, in no apparent distress, obese Head exam: Present: atraumatic, normocephalic, normal inspection Eye exam: Present: normal appearance, PERRL, EOMI. Absent: scleral icterus, conjunctival injection, periorbital swelling ENT exam: Present: normal exam, mucous membranes moist Neck exam: Present: normal inspection Respiratory exam: Present: normal lung sounds bilaterally. Absent: respiratory distress, wheezes, rales, rhonchi, stridor Cardiovascular Exam: Present: regular rate, normal rhythm, normal heart sounds. Absent: systolic murmur, diastolic murmur, rubs, gallop, clicks Extremities exam: Present: normal inspection, full ROM, normal capillary refill. Absent: tenderness, pedal edema, joint swelling, calf tenderness Neurological exam: Present: alert, oriented X3 Psychiatric exam: Present: normal affect, normal mood Skin exam: Present: warm, dry, intact, normal color. Absent: rash Expanded Type of lesion: Present: abscess (Large left buttock abscess measuring approximately 3" x 3" with local erythema.) Course Vital Signs 10/27/21 07:42 Temperature 97.7 F Pulse Rate 74 Respiratory 18 Rate Blood Pressure 116/74 O2 Sat by Pulse 95 Oximetry Procedures - [place] Protocol (Time Out) Procedure Performed:: Left buttock abcess I&D Nurse: Phani Dc Patient Identification (2 identifiers required): Chart, Verbal - Incision & Drainage Consent Obtained: verbal consent Site: buttock (Left buttock) Size (cm): 10 Anesthetic Used: lidocaine 1% Amount (mLs): 15 I&D Cleaning Method: Betadine Sterile Field Used?: Yes Scalpel Used: #11 Irrigation Performed?: Yes I&D Drainage Obtained: Pus, Blood Packing: Iodoform Culture Obtained?: Yes Patient Tolerated Procedure: well, no complications Medical Decision Making - Medical Decision Making 76-year-old male with left buttock abscess. Labs, lidocaine ordered. Labs unremarkable. Sethi tolerated incision and drainage well. Antibiotics sent to pharmacy. Patient is agreeable with discharge home with follow-up to wound care clinic and primary care. Case discussed with Dr. Coffman, patient discharge home. - Lab Data Result diagrams: 10/27/21 08:05 10/27/21 08:05 Lab Results 10/27/21 10/27/21 Range/Units 08:05 08:05 WBC 9.0 (3.8-10.6) k/uL RBC 4.11 L (4.30-5.90) m/uL Hgb 12.4 L (13.0-17.5) gm/dL Hct 37.9 L (39.0-53.0) % MCV 92.2 (80.0-100.0) fL MCH 30.2 (25.0-35.0) pg MCHC 32.7 (31.0-37.0) g/dL RDW 14.8 (11.5-15.5) % Plt Count 207 (150-450) k/uL MPV 7.8 Neutrophils % 83 % Lymphocytes % 9 % Monocytes % 4 % Eosinophils % 3 % Basophils % 0 % Neutrophils # 7.5 (1.3-7.7) k/uL Lymphocytes # 0.8 L (1.0-4.8) k/uL Monocytes # 0.4 (0-1.0) k/uL Eosinophils # 0.3 (0-0.7) k/uL Basophils # 0.0 (0-0.2) k/uL Sodium 137 (137-145) mmol/L Potassium 4.5 (3.5-5.1) mmol/L Chloride 104 (98-107) mmol/L Carbon Dioxide 26 (22-30) mmol/L Anion Gap 7 mmol/L BUN 24 H (9-20) mg/dL Creatinine 1.11 (0.66-1.25) mg/dL Est GFR (CKD-EPI)AfAm 74 (>60 ml/min/1.73 sqM) Est GFR (CKD-EPI)NonAf 64 (>60 ml/min/1.73 sqM) Glucose 121 H (74-99) mg/dL Calcium 8.9 (8.4-10.2) mg/dL Total Bilirubin 0.5 (0.2-1.3) mg/dL AST 25 (17-59) U/L ALT 17 (4-49) U/L Alkaline Phosphatase 78 (38-126) U/L Total Protein 6.3 (6.3-8.2) g/dL Albumin 3.4 L (3.5-5.0) g/dL Disposition Clinical Impression: Abscess Disposition: HOME SELF-CARE Condition: Stable Instructions (If sedation given, give patient instructions): Abscess (ED), Moderate Sedation in Children (ED) Additional Instructions: Please return to the Emergency Department if symptoms worsen or any other concerns. Follow-up with primary care 1-2 days. Take antibiotics as prescribed until complete. Follow-up with wound care clinic on Friday. Is patient prescribed a controlled substance at d/c from ED?: No Referrals: Joy Reagan DO [Primary Care Provider] - 1-2 days [facility] [NON-STAFF] - 1-2 days Time of Disposition: 09:14
[2021-10-27 09:33] VITALS: BP 136/78; PULSE 78; TEMP 98
== END 2021-10-27 09:32 | disposition home or self-care (01) ==
LOC: EC 07:41
DX: L02.31 Cutaneous abscess of buttock (principal); I25.10 Atherosclerotic heart disease of native coronary artery without angina pectoris; E11.9 Type 2 diabetes mellitus without complications; J44.9 Chronic obstructive pulmonary disease, unspecified; E78.5 Hyperlipidemia, unspecified; I10 Essential (primary) hypertension; I25.2 Old myocardial infarction; Z87.891 Personal history of nicotine dependence; Z79.82 Long term (current) use of aspirin; Z79.4 Long term (current) use of insulin; Z79.899 Other long term (current) drug therapy; Z79.84 Long term (current) use of oral hypoglycemic drugs
CPT/HCPCS: 99283; 96374; 36415; 80053; 85025; 87070; 87205; 10061; J2270; J2001

== ENCOUNTER 2022-01-26 21:49 | Emergency (ER) | payer MEDICARE, OTHER ==
[2022-01-26 22:36] VITALS: RESP 18; TEMP 98.5
[2022-01-27 03:13] VITALS: BP 170/82; PULSE 73
--- NOTE | 2022-01-27 03:50 | XR ---
EXAMINATION TYPE: XR knee complete RT DATE OF EXAM: 01/27/2022 COMPARISON: NONE HISTORY: Knee pain TECHNIQUE: 3 views FINDINGS: There is knee joint effusion. It is large spurring on the tibial tubercle. There are large anterior spurs on the patella. I see no definite fracture line. There is extensive vascular calcifica tion. IMPRESSION: Knee joint effusion. Extensive spurring. No definite fracture seen. Atherosclerotic vascu lar disease.
[2022-01-27] MEDS ORDERED: LIDOCAINE 1% INJ 10MG/ML (20 ML MDV) SQ ONE (04:00)
[2022-01-27] MEDS ORDERED: IBUPROFEN 600 MG TAB PO STA (04:19)
[2022-01-27] MEDS ORDERED: ACETAMINOPHEN TAB 500 MG TAB PO STA (04:19)
--- NOTE | 2022-01-27 04:20 | ED ---
Extremity Problem HPI - General Chief complaint: Extremity Problem,Nontraumatic Stated complaint: Right leg pain Time Seen by Provider: 01/27/22 03:20 Source: patient, RN notes reviewed, old records reviewed Mode of arrival: wheelchair Limitations: no limitations - History of Present Illness Initial comments: This is a 77-year-old male presented today for evaluation of right knee pain significant right knee pain with swelling. Patient denies any specific trauma although he states he does occasionally have falls. Patient's pain complaint is a significant swelling of the right knee is unable to bend his knee as severe pain especially to touch of that right knee. No history of gout no other medical complaints MD Complaint: extremity pain, extremity swelling, joint swelling (Right knee) -: days(s) Location: right, knee History of Same: No -: Yes myalgia Radiation: distal Severity scale (1-10): 10 Quality: constant Consistency: constant Improves with: nothing Worsens with: weight bearing, walking, palpation Associated Symptoms: denies other symptoms - Related Data Home Medications Medication Instructions Recorded Confirmed Aspirin [[place] Aspirin EC] 81 mg PO DAILY 01/07/19 09/14/21 Atorvastatin [Lipitor] 20 mg PO DAILY 01/07/19 09/14/21 Finasteride [Proscar] 5 mg PO DAILY 01/07/19 09/14/21 Sertraline HCl [Zoloft] 50 mg PO DAILY 02/05/19 09/14/21 Tamsulosin [Flomax] 0.4 mg PO HS 07/06/19 09/14/21 Acetaminophen [Tylenol Arthritis] 650 mg PO HS 07/27/20 09/14/21 Ferrous Sulfate [Feosol] 325 mg PO DAILY 07/27/20 09/14/21 Glimepiride [Amaryl] 1 mg PO DAILY 08/24/20 09/14/21 Gabapentin [Neurontin] 100 mg PO HS PRN 12/06/20 09/14/21 Nitroglycerin Sl Tabs [Nitrostat] 0.4 mg SL Q5M PRN 02/19/21 09/14/21 Ascorbic Acid [Vitamin C] 500 mg PO DAILY 09/14/21 09/14/21 Cholecalciferol (Vitamin D3) 125 mcg PO DAILY 09/14/21 09/14/21 [Vitamin D3 (125 MCG = 5,000 IU)] Insulin Glargine,Hum.rec.anlog 28 unit SQ HS 09/14/21 09/14/21 [Lantus Solostar Pen] Losartan Potassium [Cozaar] 25 mg PO HS 09/14/21 09/14/21 Zinc 50 mg PO DAILY 09/14/21 09/14/21 Previous Rx's Medication Instructions Recorded Sulfamethox-Tmp 800-160Mg [Bactrim 1 each PO Q12HR #20 tab 09/14/21 DS 800-160 mg] Cephalexin [Keflex] 500 mg PO Q6HR #40 cap 10/27/21 Sulfamethox-Tmp 800-160Mg [Bactrim 1 each PO Q12HR #20 tab 10/27/21 Ds] Allergies Allergy/AdvReac Type Severity Reaction Status Date / Time No Known Allergies Allergy Verified 01/26/22 22:36 Review of Systems ROS Statement: Those systems with pertinent positive or pertinent negative responses have been documented in the HPI. ROS Other: All systems not noted in ROS Statement are negative. Past Medical History Past Medical History: Coronary Artery Disease (CAD), Cancer, COPD, Diabetes Mellitus, Hyperlipidemia, Hypertension, Myocardial Infarction (CT), Prostate Disorder Additional Past Medical History / Comment(s): prostate cancer with radiation > 20 years ago, nstemi, wears a brief incont urine/stool Last Myocardial Infarction Date:: 2017 History of Any Multi-Drug Resistant Organisms: ESBL, MRSA Date of last positivie culture/infection: 09/14/21 ESBL; 10/27/18 MRSA MDRO Source:: Urine-ESBL; Back-MRSA Past Surgical History: Coronary Bypass/CABG Additional Past Surgical History / Comment(s): 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,prostate bx, triple bypass 2017, bronchoscopy, picc line pt stated since removed Past Anesthesia/Blood Transfusion Reactions: No Reported Reaction Type of Cardiac Device: Permanent Pacemaker Device Placement Date:: 12/08/20 Past Psychological History: No Psychological Hx Reported Smoking Status: Former smoker Past Alcohol Use History: None Reported Past Drug Use History: None Reported - Past Family History Father Additional Family Medical History / Comment(s): old age Mother Family Medical History: Coronary Artery Disease (CAD), Diabetes Mellitus Additional Family Medical History / Comment(s): CABG General Exam Limitations: no limitations General appearance: alert, in no apparent distress Head exam: Present: atraumatic, normocephalic, normal inspection Eye exam: Present: normal appearance, PERRL, EOMI. Absent: scleral icterus, conjunctival injection, periorbital swelling ENT exam: Present: normal exam, mucous membranes moist Neck exam: Present: normal inspection. Absent: tenderness, meningismus, lymphadenopathy Respiratory exam: Present: normal lung sounds bilaterally. Absent: respiratory distress, wheezes, rales, rhonchi, stridor Cardiovascular Exam: Present: regular rate, normal rhythm, normal heart sounds. Absent: systolic murmur, diastolic murmur, rubs, gallop, clicks GI/Abdominal exam: Present: soft, normal bowel sounds. Absent: distended, tenderness, guarding, rebound, rigid Extremities exam: Present: normal inspection, full ROM, normal capillary refill, other (Significant right knee pain with effusion). Absent: tenderness, pedal edema, joint swelling, calf tenderness Back exam: Present: normal inspection Neurological exam: Present: alert, oriented X3, CN II-XII intact Psychiatric exam: Present: normal affect, normal mood Skin exam: Present: warm, dry, intact, normal color. Absent: rash Course Vital Signs 01/26/22 01/27/22 22:33 03:11 Temperature 98.5 F Pulse Rate 75 73 Respiratory 18 18 Rate Blood Pressure 135/55 170/82 O2 Sat by Pulse 95 95 Oximetry - Reevaluation(s) Reevaluation #1: 01/27/22 04:29 Medical record is reviewed Reevaluation #2: 01/27/22 04:29 Patient's pain is significantly improved after aspiration and pain control Reevaluation #3: 01/27/22 04:29 Patient informed results and questions answered Medical Decision Making - Medical Decision Making 77 male who is presented today for evaluation regards to right knee pain and swelling significant right knee effusion no trauma. Patient knee is aspirated without significant difficulty, patient has increased range of motion feels better and can be discharged home - Radiology Data Radiology results: report reviewed (X-ray knee is negative for acute disease), image reviewed Disposition Clinical Impression: Effusion, right knee, Right knee pain Disposition: HOME SELF-CARE Condition: Good Instructions (If sedation given, give patient instructions): Swollen Knee Joint (ED), Knee Pain (ED) Is patient prescribed a controlled substance at d/c from ED?: No Referrals: Joy Reagan DO [Primary Care Provider] - 1-2 days
== END 2022-01-27 04:30 | disposition home or self-care (01) ==
LOC: EC 21:49
DX: M25.461 Effusion, right knee (principal); E11.9 Type 2 diabetes mellitus without complications; I10 Essential (primary) hypertension; I25.2 Old myocardial infarction; I25.10 Atherosclerotic heart disease of native coronary artery without angina pectoris; J44.9 Chronic obstructive pulmonary disease, unspecified; E78.5 Hyperlipidemia, unspecified; Z87.891 Personal history of nicotine dependence; Z79.4 Long term (current) use of insulin; Z79.82 Long term (current) use of aspirin; Z79.899 Other long term (current) drug therapy
CPT/HCPCS: 99283; 73562; 20610; J2001

== ENCOUNTER 2022-04-29 03:05 | Emergency (ER) | payer MEDICARE, OTHER ==
[2022-04-29 03:15] VITALS: BP 115/69; PULSE 76; RESP 19; TEMP 97.9
[2022-04-29] MEDS ORDERED: NITROFURANTOIN MONOHYD/M-CRYST 100 MG CAP PO STA ×2 (03:25→03:44)
[2022-04-29] MEDS ORDERED: IBUPROFEN 600 MG TAB PO STA (03:26)
[2022-04-29] MEDS ORDERED: PHENAZOPYRIDINE 200 MG TAB PO STA (03:26)
--- NOTE | 2022-04-29 03:28 | ED ---
Recheck HPI - General Chief Complaint: Urogenital Stated Complaint: blood in urine Time Seen by Provider: 04/29/22 03:17 Source: patient, RN notes reviewed, old records reviewed Mode of arrival: wheelchair Limitations: no limitations - History of Present Illness Initial Comments: This is a 77-year-old with family members for evaluation regarding blood in his urine. Patient is able to urinate no clots. No blood thinners. No abdominal pain. Patient significant burning with urination was started on antibiotics but has had no improvement is antibiotics here. Patient has no fevers no nausea vomiting or diarrhea no other complaints MD Complaint: abnormal lab (A she does have known urinary tract infection not improving on antibiotics) -: days(s) Returns Today for: persistent/worsening pain related to initial visit Symptoms Since Prior Visit: worsening pain ( does have worsening burning with urination and blood in his urine) Associated Symptoms: none Treatments Prior to Arrival: Given Antibiotics on - Related Data Home Medications Medication Instructions Recorded Confirmed Aspirin [[place] Aspirin EC] 81 mg PO DAILY 01/07/19 04/29/22 Atorvastatin [Lipitor] 20 mg PO DAILY 01/07/19 04/29/22 Finasteride [Proscar] 5 mg PO DAILY 01/07/19 04/29/22 Sertraline HCl [Zoloft] 50 mg PO DAILY 02/05/19 04/29/22 Tamsulosin [Flomax] 0.4 mg PO HS 07/06/19 04/29/22 Acetaminophen [Tylenol Arthritis] 650 mg PO HS 07/27/20 04/29/22 Ferrous Sulfate [Feosol] 325 mg PO DAILY 07/27/20 04/29/22 Glimepiride [Amaryl] 1 mg PO DAILY 08/24/20 04/29/22 Gabapentin [Neurontin] 100 mg PO BID 12/06/20 04/29/22 Nitroglycerin Sl Tabs [Nitrostat] 0.4 mg SL Q5M PRN 02/19/21 04/29/22 Ascorbic Acid [Vitamin C] 500 mg PO DAILY 09/14/21 04/29/22 Cholecalciferol (Vitamin D3) 125 mcg PO DAILY 09/14/21 04/29/22 [Vitamin D3 (125 MCG = 5,000 IU)] Insulin Glargine,Hum.rec.anlog 30 unit SQ HS 09/14/21 04/29/22 [Lantus Solostar Pen] Losartan Potassium [Cozaar] 25 mg PO HS 09/14/21 04/29/22 Zinc 50 mg PO DAILY 09/14/21 04/29/22 Albuterol Inhaler [Ventolin Hfa 2 puff INHALATION RT-Q6H PRN 04/29/22 04/29/22 Inhaler] Ibuprofen [Motrin Ib] 600 mg PO Q8H PRN 04/29/22 04/29/22 Rivaroxaban [Xarelto] 20 mg PO DAILY 04/29/22 04/29/22 Previous Rx's Medication Instructions Recorded Nitrofurantoin Monohyd/M-Cryst 100 mg PO Q12HR #14 cap 04/29/22 [Macrobid] Allergies Allergy/AdvReac Type Severity Reaction Status Date / Time No Known Allergies Allergy Verified 04/29/22 10:23 Review of Systems ROS Statement: Those systems with pertinent positive or pertinent negative responses have been documented in the HPI. ROS Other: All systems not noted in ROS Statement are negative. Past Medical History Past Medical History: Coronary Artery Disease (CAD), Cancer, COPD, Diabetes Mellitus, Hyperlipidemia, Hypertension, Myocardial Infarction ([place]), Prostate Disorder Additional Past Medical History / Comment(s): prostate cancer with radiation > 20 years ago, nstemi, wears a brief incont urine/stool Last Myocardial Infarction Date:: 2017 History of Any Multi-Drug Resistant Organisms: ESBL, MRSA Date of last positivie culture/infection: 09/14/21 ESBL; 10/27/18 MRSA MDRO Source:: Urine-ESBL; Back-MRSA Past Surgical History: Coronary Bypass/CABG Additional Past Surgical History / Comment(s): 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,prostate bx, triple bypass 2017, bronchoscopy, picc line pt stated since removed Past Anesthesia/Blood Transfusion Reactions: No Reported Reaction Type of Cardiac Device: Permanent Pacemaker Device Placement Date:: 12/08/20 Past Psychological History: No Psychological Hx Reported Smoking Status: Former smoker Past Alcohol Use History: None Reported Past Drug Use History: None Reported - Past Family History Father Additional Family Medical History / Comment(s): old age Mother Family Medical History: Coronary Artery Disease (CAD), Diabetes Mellitus Additional Family Medical History / Comment(s): CABG General Exam General appearance: alert, in no apparent distress Head exam: Present: atraumatic, normocephalic, normal inspection Eye exam: Present: normal appearance, PERRL, EOMI. Absent: scleral icterus, conjunctival injection, periorbital swelling ENT exam: Present: normal exam, mucous membranes moist Neck exam: Present: normal inspection. Absent: tenderness, meningismus, lymphadenopathy Respiratory exam: Present: normal lung sounds bilaterally. Absent: respiratory distress, wheezes, rales, rhonchi, stridor Cardiovascular Exam: Present: regular rate, normal rhythm, normal heart sounds. Absent: systolic murmur, diastolic murmur, rubs, gallop, clicks GI/Abdominal exam: Present: soft, normal bowel sounds. Absent: distended, tenderness, guarding, rebound, rigid Extremities exam: Present: normal inspection, full ROM, normal capillary refill. Absent: tenderness, pedal edema, joint swelling, calf tenderness Back exam: Present: normal inspection Neurological exam: Present: alert, oriented X3, CN II-XII intact Psychiatric exam: Present: normal affect, normal mood Skin exam: Present: warm, dry, intact, normal color. Absent: rash Course Vital Signs 04/29/22 03:11 Temperature 97.9 F Pulse Rate 76 Respiratory 19 Rate Blood Pressure 115/69 O2 Sat by Pulse 93 L Oximetry - Reevaluation(s) Reevaluation #1: 04/29/22 Medical record is reviewed Reevaluation #2: 04/29/22 feeling better given symptomatic therapy here in the ER. Reevaluation #3: 04/29/22 Patient spoken with at length very findings and treatment. Patient can be discharged home Medical Decision Making - Medical Decision Making 77 male able to urinate without difficulty patient antibiotic is changed his prior antibiotic showed microbiology being resistant to treatment. Patient can be discharged home Disposition Clinical Impression: UTI (urinary tract infection), Hematuria, Hemorrhagic cystitis Disposition: HOME SELF-CARE Condition: Good Instructions (If sedation given, give patient instructions): Urinary Tract Infection in Men (ED), Hematuria (ED) Prescriptions: Nitrofurantoin Monohyd/M-Cryst [Macrobid] 100 mg PO Q12HR #14 cap Is patient prescribed a controlled substance at d/c from ED?: No Referrals: Della Grant MD [Primary Care Provider] - 1-2 days Time of Disposition: 03:30
== END 2022-04-29 03:49 | disposition home or self-care (01) ==
LOC: EC 03:05
DX: N30.91 Cystitis, unspecified with hematuria (principal); I25.10 Atherosclerotic heart disease of native coronary artery without angina pectoris; J44.9 Chronic obstructive pulmonary disease, unspecified; E78.5 Hyperlipidemia, unspecified; I10 Essential (primary) hypertension; I25.2 Old myocardial infarction; Z87.891 Personal history of nicotine dependence
CPT/HCPCS: 99283

== ENCOUNTER 2022-04-29 09:11 | Inpatient (IN) | payer MEDICARE, OTHER ==
[2022-04-29] MEDS ORDERED: PIPERACILLIN-TAZOBACTAM 3.375 GM in SODIUM CHLORIDE 0.9% 100 ML IVPB STA (09:50)
[2022-04-29 10:42] LABS: Basophils # (A) 0.1 k/uL (0-0.2); Basophils % (A) 1 %; Eosinophils # (A) 0.2 k/uL (0-0.7); Eosinophils % (A) 2 %; HCT 36.1 % (39.0-53.0); HGB 11.1 gm/dL (13.0-17.5); Hypochromasia Slight; Lymphocytes # (A) 0.8 k/uL (1.0-4.8); Lymphocytes % (A) 10 %; MCH 29.2 pg (25.0-35.0); MCHC 30.8 g/dL (31.0-37.0); Monocytes # (A) 0.3 k/uL (0-1.0); Monocytes % (A) 4 %; Neutrophils % (A) 81 %; Platelet Count 168 k/uL (150-450); RBC 3.81 m/uL (4.30-5.90); RDW 14.9 % (11.5-15.5); WBC 7.4 k/uL (3.8-10.6)
[2022-04-29 10:50] LABS: Albumin 3.9 g/dL (3.5-5.0); Potassium 5.3 mmol/L (3.5-5.1); Total Bilirubin 0.5 mg/dL (0.2-1.3); Total Protein 6.6 g/dL (6.3-8.2)
--- NOTE | 2022-04-29 11:07 | US ---
EXAMINATION TYPE: US renals and bladder DATE OF EXAM: 04/29/2022 COMPARISON: CT, US CLINICAL HISTORY: hematuria. Hematuria. Hx right nephrectomy. EXAM MEASUREMENTS: Left Kidney: 14.0 x 5.3 x 5.7 cm Right Kidney: Surgically absent. Left Kidney: Appears enlarged. Anechoic area seen mid-lower pole: 3.3 x 3.4 x 2.8 cm. Compatible with an exophytic simple cyst Bladder: Limited- not fully distended, patient has catheter in place. Possible internal echoes seen w ithin. Bladder wall appears thickened measuring 0.71 cm versus likely due to not being fully distende d. Bilateral Jets seen: No, unable to properly evaluate for left jet due to catheter and movement. IMPRESSION: 1. Simple appearing cyst lateral left kidney. 2. Right kidney is surgically absent. 3. Urinary bladder cannot be evaluated with the catheter in place.
--- NOTE | 2022-04-29 11:21 | ED ---
Male Urogenital HPI - General Chief complaint: Urogenital Stated complaint: revisit - groin pain Time Seen by Provider: 04/29/22 09:15 Source: patient Mode of arrival: wheelchair Limitations: no limitations - History of Present Illness Initial comments: 77-year-old male with past medical history of diabetes, hypertension, prostate cancer, gregory kidney presents to the emergency department with continued hematuria. He was seen on April 23 and diagnosed with urinary tract infection. Discharged home on Bactrim. Has been taking the medications as directed without improvement in his symptoms. He was here earlier this morning for continued hematuria and suprapubic pain. His antibiotic was changed to Macrobid. He received 1 dose was discharged home. Review of the patient's microbiology demonstrates urine cultures positive for ESBL E. coli. Macrobid is sensitive. The patient reports that he has had worsening suprapubic pain and this is what prompted him to come back to the emergency room. - Related Data Home Medications Medication Instructions Recorded Confirmed Aspirin [[place] Aspirin EC] 81 mg PO DAILY 01/07/19 04/29/22 Atorvastatin [Lipitor] 20 mg PO DAILY 01/07/19 04/29/22 Finasteride [Proscar] 5 mg PO DAILY 01/07/19 04/29/22 Sertraline HCl [Zoloft] 50 mg PO DAILY 02/05/19 04/29/22 Tamsulosin [Flomax] 0.4 mg PO HS 07/06/19 04/29/22 Acetaminophen [Tylenol Arthritis] 650 mg PO HS 07/27/20 04/29/22 Ferrous Sulfate [Feosol] 325 mg PO DAILY 07/27/20 04/29/22 Glimepiride [Amaryl] 1 mg PO DAILY 08/24/20 04/29/22 Gabapentin [Neurontin] 100 mg PO BID 12/06/20 04/29/22 Nitroglycerin Sl Tabs [Nitrostat] 0.4 mg SL Q5M PRN 02/19/21 04/29/22 Ascorbic Acid [Vitamin C] 500 mg PO DAILY 09/14/21 04/29/22 Cholecalciferol (Vitamin D3) 125 mcg PO DAILY 09/14/21 04/29/22 [Vitamin D3 (125 MCG = 5,000 IU)] Insulin Glargine,Hum.rec.anlog 30 unit SQ HS 09/14/21 04/29/22 [Lantus Solostar Pen] Losartan Potassium [Cozaar] 25 mg PO HS 09/14/21 04/29/22 Zinc 50 mg PO DAILY 09/14/21 04/29/22 Albuterol Inhaler [Ventolin Hfa 2 puff INHALATION RT-Q6H PRN 04/29/22 04/29/22 Inhaler] Ibuprofen [Motrin Ib] 600 mg PO Q8H PRN 04/29/22 04/29/22 Rivaroxaban [Xarelto] 20 mg PO DAILY 04/29/22 04/29/22 Previous Rx's Medication Instructions Recorded Nitrofurantoin Monohyd/M-Cryst 100 mg PO Q12HR #14 cap 04/29/22 [Macrobid] Allergies Allergy/AdvReac Type Severity Reaction Status Date / Time No Known Allergies Allergy Verified 04/29/22 10:23 Review of Systems ROS Statement: Those systems with pertinent positive or pertinent negative responses have been documented in the HPI. ROS Other: All systems not noted in ROS Statement are negative. Past Medical History Past Medical History: Coronary Artery Disease (CAD), Cancer, COPD, Diabetes Mellitus, Hyperlipidemia, Hypertension, Myocardial Infarction ([place]), Prostate Disorder Additional Past Medical History / Comment(s): prostate cancer with radiation > 20 years ago, nstemi, wears a brief incont urine/stool Last Myocardial Infarction Date:: 2017 History of Any Multi-Drug Resistant Organisms: ESBL, MRSA Date of last positivie culture/infection: 09/14/21 ESBL; 10/27/18 MRSA MDRO Source:: Urine-ESBL; Back-MRSA Past Surgical History: Coronary Bypass/CABG Additional Past Surgical History / Comment(s): 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,prostate bx, triple bypass 2017, bronchoscopy, picc line pt stated since removed Past Anesthesia/Blood Transfusion Reactions: No Reported Reaction Type of Cardiac Device: Permanent Pacemaker Device Placement Date:: 12/08/20 Past Psychological History: No Psychological Hx Reported Smoking Status: Former smoker Past Alcohol Use History: None Reported Past Drug Use History: None Reported - Past Family History Father Additional Family Medical History / Comment(s): old age Mother Family Medical History: Coronary Artery Disease (CAD), Diabetes Mellitus Additional Family Medical History / Comment(s): CABG General Exam Limitations: no limitations General appearance: alert, in no apparent distress Head exam: Present: atraumatic, normocephalic, normal inspection Eye exam: Present: normal appearance, PERRL, EOMI. Absent: scleral icterus, conjunctival injection, periorbital swelling ENT exam: Present: normal exam, mucous membranes moist Neck exam: Present: normal inspection. Absent: tenderness, meningismus, lymphadenopathy Respiratory exam: Present: normal lung sounds bilaterally. Absent: respiratory distress, wheezes, rales, rhonchi, stridor Cardiovascular Exam: Present: regular rate, normal rhythm, normal heart sounds. Absent: systolic murmur, diastolic murmur, rubs, gallop, clicks GI/Abdominal exam: Present: soft, tenderness (suprapubic), normal bowel sounds. Absent: distended, guarding, rebound, rigid Extremities exam: Present: normal inspection, full ROM, normal capillary refill. Absent: tenderness, pedal edema, joint swelling, calf tenderness Back exam: Present: normal inspection Neurological exam: Present: alert, oriented X3, CN II-XII intact Psychiatric exam: Present: normal affect, normal mood Skin exam: Present: warm, dry, intact, normal color. Absent: rash Course Vital Signs 04/29/22 04/29/22 09:14 20:42 Temperature 98 F 98 F Pulse Rate 83 70 Respiratory 20 18 Rate Blood Pressure 137/74 144/84 O2 Sat by Pulse 94 L 95 Oximetry Medical Decision Making - Medical Decision Making Upon arrival the patient is placed into room 25. A thorough history and physical exam is performed. IV access established laboratory studies were conducted. It is performed and demonstrates greater than 250 mL and the patient's bladder. Due to his significant hematoma place a Suero for which the patient does have return of 800 mL of blood. Patient was given a dose of Zosyn. Laboratory studies are reviewed and demonstrate a creatinine which is 1.8. This is worse than the patient's baseline. Urinalysis demonstrates occasional white blood cell clumps and occasional bacteria. Recommended admission due to acute kidney injury, urinary retention, hematuria and failed outpatient treatment of UTI. Spoke with Dr. horvath who agreed to admit the patient. - Lab Data Result diagrams: 05/01/22 11:00 05/01/22 11:00 Lab Results 04/29/22 04/29/22 04/29/22 Range/Units 10:38 10:38 10:38 WBC 7.4 (3.8-10.6) k/uL RBC 3.81 L (4.30-5.90) m/uL Hgb 11.1 L (13.0-17.5) gm/dL Hct 36.1 L (39.0-53.0) % MCV 95.0 (80.0-100.0) fL MCH 29.2 (25.0-35.0) pg MCHC 30.8 L (31.0-37.0) g/dL RDW 14.9 (11.5-15.5) % Plt Count 168 (150-450) k/uL MPV 8.0 Neutrophils % 81 % Lymphocytes % 10 % Monocytes % 4 % Eosinophils % 2 % Basophils % 1 % Neutrophils # 6.0 (1.3-7.7) k/uL Lymphocytes # 0.8 L (1.0-4.8) k/uL Monocytes # 0.3 (0-1.0) k/uL Eosinophils # 0.2 (0-0.7) k/uL Basophils # 0.1 (0-0.2) k/uL Hypochromasia Slight Sodium 134 L (137-145) mmol/L Potassium 5.3 H (3.5-5.1) mmol/L Chloride 103 (98-107) mmol/L Carbon Dioxide 22 (22-30) mmol/L Anion Gap 9 mmol/L BUN 31 H (9-20) mg/dL Creatinine 1.86 H (0.66-1.25) mg/dL Est GFR (CKD-EPI)AfAm 40 (>60 ml/min/1.73 sqM) Est GFR (CKD-EPI)NonAf 34 (>60 ml/min/1.73 sqM) Glucose 100 H (74-99) mg/dL Plasma Lactic Acid Chauncey 1.2 (0.7-2.0) mmol/L Calcium 9.0 (8.4-10.2) mg/dL Total Bilirubin 0.5 (0.2-1.3) mg/dL AST 25 (17-59) U/L ALT 17 (4-49) U/L Alkaline Phosphatase 117 (38-126) U/L Total Protein 6.6 (6.3-8.2) g/dL Albumin 3.9 (3.5-5.0) g/dL Disposition Clinical Impression: UTI (urinary tract infection), KAVITHA (acute kidney injury), Failure of outpatient treatment Disposition: ADMITTED IP TO THIS [facility] Condition: Stable Is patient prescribed a controlled substance at d/c from ED?: No Decision to Admit Reason: Admit from EC Decision Date: 04/29/22 Decision Time: 11:19
[2022-04-29] MEDS ORDERED: NALOXONE 0.4 MG/ML 1 ML VIAL IV PRN (11:22)
[2022-04-29 11:50] LABS: Amorphous Sediment,Urine Rare /hpf; Appearance,Urine Cloudy (Clear); Bacteria,Urine Occasional /hpf; Bilirubin,Urine Negative (Negative); Blood,Urine Large (Negative); Color,Urine Dark Brown; Glucose,Urine (UA) Negative (Negative); Ketones,Urine Negative (Negative); Leukocyte Esterase,Urine Large (Negative); Mucus,Urine Rare /hpf; Nitrite,Urine Negative (Negative); Protein,Urine 2+ (Negative); RBC,Urine 77 /hpf (0-5); Specific Gravity,Urine 1.009 (1.001-1.035); Urobilinogen,Urine <2.0 mg/dL (<2.0); WBC,Urine 69 /hpf (0-5)
[2022-04-29] MEDS ORDERED: IOPAMIDOL CONTRAST (ORAL USE) VIAL PO PRN (16:10)
[2022-04-29] MEDS: HYDROmorphone 0.5 MG/0.5 ML SYRINGE IVP PRN ×2 (17:05→20:18)
[2022-04-29] MEDS: PIPERACILLIN-TAZOBACTAM 3.375 GM in SODIUM CHLORIDE 0.9% 100 ML IVPB SCH ×2 (17:05→23:49)
[2022-04-29] MEDS: HYDROcodone/APAP 5-325MG 1 EACH TAB PO PRN ×2 (18:22→23:49)
--- NOTE | 2022-04-29 18:25 | XR ---
EXAMINATION TYPE: XR chest 1V portable DATE OF EXAM: 04/29/2022 COMPARISON: Chest radiograph 09/14/2021 HISTORY: Weakness TECHNIQUE: Single frontal view of the chest is obtained. FINDINGS: Unchanged dual-lead pacemaker with power pack overlying the left chest. Unchanged postsurgical change s of the sternum and mediastinal clips. Cardiomediastinal silhouette appears mildly prominent, similar to prior. 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 Right basilar airspace opacity. No pleural effusion or pneumothorax. IMPRESSION: Right basilar airspace opacity which may represent atelectasis or infiltrate.
--- NOTE | 2022-04-29 18:36 | CT ---
EXAMINATION TYPE: CT abdomen pelvis wo con DATE OF EXAM: 04/29/2022 COMPARISON: CT abdomen/pelvis 05/20/2021 HISTORY: Abdomen pain, prostate ca, urinary retention. CT DLP: 1133.4 mGycm. Automated Exposure Control for Dose Reduction was Utilized. TECHNIQUE: Multiple contiguous axial CT images of the performed from the lung bases through the pubic symphysis without the administration of intravenous contrast. 2-D sagittal and coronal reformatted i mages were obtained. FINDINGS: Right basilar airspace opacity which may represent atelectasis or infiltrate. Liver, spleen, pancreas, and bilateral adrenal glands have an unremarkable unenhanced appearance. Gallbladder is absent. No definite intrahepatic or extrahepatic biliary ductal dilatation. Right kidney is absent. Mild left hydroureteronephrosis, which has progressed compared to prior. Unch anged left renal cyst measuring 3.3 cm. No renal or ureteral calculi. Urinary bladder contains a Fole y catheter and appears over distended. There is hyperattenuating material within the dependent aspect of the urinary bladder. There is focus of intraluminal air which likely secondary to instrumentation . No free fluid. Visualized bowel is of normal caliber without evidence of obstruction. No significant mesenteric infl ammation. Moderate burden of colonic diverticulosis involving the ascending colon. Appendix appears u nremarkable. No free air. Moderate burden of atherosclerotic vascular calcifications of the abdominal aorta and iliac arteries without aneurysm. No intra-abdominal or retroperitoneal lymphadenopathy. Moderate sized ventral wall hernia of the upper abdomen in the midline which contains fat and portions of the transverse colon. T here is no associated inflammatory changes. New mild anterior compression deformity of the L1 vertebr al body. IMPRESSION: 1. Urinary bladder contains a Suero catheter and appears over distended. There is hyperattenuating ma terial layering dependently within the urinary bladder which could relate to blood products. Recommen d appropriate clinical correlation. 2. Progressed mild left hydroureteronephrosis which may relate to outlet obstruction. 3. New mild anterior compression deformity of the L1 vertebral body compared to May 2021. Findings c onsistent with age-indeterminate fracture. Recommend correlation with site-specific pain and tenderne ss. 4. Moderate midline ventral hernia containing fat and transverse colon without inflammation or eviden ce of bowel obstruction.
--- NOTE | 2022-04-29 18:46 | HP ---
HISTORY AND PHYSICAL DATE OF SERVICE: 04/29/2022 CHIEF COMPLAINTS: Severe abdominal pain and urinary retention and UTI with failure of outpatient treatment. HISTORY OF PRESENT ILLNESS: This 77-year-old gentleman with a past medical history of COPD, diabetes mellitus and multiple medical issues presented last night with severe UTI and abdominal pain. The patient was given outpatient antibiotic, but because of lack of improvement and severe pain in the groin area and inability to void, the patient came to [facility] and was admitted for evaluation and treatment. Patient has some incontinence, also. Patient has a history of prostate cancer previously. Bloody urine was drained. The creatinine is also elevated at 1.86. There is no history of any fever, rigor or chills. PAST MEDICAL HISTORY: COPD, diabetes mellitus, multiple other medical issues. HOME MEDICATIONS: Reviewed. They include Zoloft. Doses and the rest of the medications are reviewed. ALLERGIES: NONE. FAMILY HISTORY: Family history includes history of diabetes mellitus. SOCIAL HISTORY: Previous history of smoking. REVIEW OF SYSTEMS: Fourteen-point review of systems negative except as mentioned earlier. PHYSICAL EXAMINATION: Pulse is 88, blood pressure 133/74, respiration 20. HEENT: Conjunctivae normal. NECK: No jugular venous distention. CARDIOVASCULAR: S1, S2 muffled. RESPIRATION: Breath sounds diminished at the bases. A few scattered rhonchi and crackles. ABDOMEN: Soft. Mild diffuse tenderness in the lower part of the abdomen. Suero catheter in situ. LEGS: No edema. No swelling. NERVOUS SYSTEM: No focal deficit. SKIN: No ulcer, rash, bleeding. JOINTS: No active deforming arthropathy. LABS: Labs at this time show WBC 7.4, hemoglobin 11.1, sodium 134 and potassium 5.3. ASSESSMENT: 1. Acute urinary tract infection with failure of outpatient treatment. 2. Severe groin pain and urinary retention. 3. History of prostate cancer. 4. Renal failure, chronic. 5. Chronic obstructive pulmonary disease. 6. Diabetes mellitus. 7. Hypertension. 8. Hyperlipidemia. 9. Multiple medical issues. RECOMMENDATIONS AND DISCUSSION: In this 77-year-old gentleman who presented with multiple complex medical issues, at this time I recommend to continue the current medications. Will initiate empiric antibiotics. Obtain cultures. Also obtain a CT scan. Nephrology has been consulted. Repeat labs. Resume the home medications. Avoid nephrotoxic medications. Prognosis guarded. Discussed with the patient and son at the bedside. Further recommendations to follow. MMODL / IJN: [id number] /
[2022-04-29] MEDS: GABAPENTIN 100 MG CAP PO SCH (20:20)
[2022-04-29] MEDS: TAMSULOSIN 0.4 MG CAP.ER.24H PO SCH (20:20)
[2022-04-29] MEDS: ACETAMINOPHEN TAB 325 MG TAB PO SCH (20:21)
[2022-04-29] MEDS: INSULIN DETEMIR (LEVEMIR) 100 UNIT/ML SYR SQ SCH (20:23)
[2022-04-29 20:28] LABS: Glucose,Whole Blood 186 mg/dL (75-99)
[2022-04-29] MEDS ORDERED: LOSARTAN 25 MG TAB PO SCH (21:00)
[2022-04-30 07:04] LABS: Glucose,Whole Blood 79 mg/dL (75-99)
[2022-04-30 08:51] LABS: Basophils # (A) 0.03 X 10*3/uL (0.00-0.10); Basophils % (A) 0.4 %; Eosinophils # (A) 0.05 X 10*3/uL (0.04-0.35); Eosinophils % (A) 0.7 %; HCT 29.6 % (39.6-50.0); HGB 8.7 g/dL (13.0-17.0); Immature Grans, Automated 0.3 %; Lymphocytes # (A) 0.79 X 10*3/uL (0.90-5.00); MCH 28.9 pg (27.0-32.0); MCHC 29.4 g/dL (32.0-37.0); MCV 98.3 fL (80.0-97.0); Mean Platelet Volume 11.2 fL (9.5-12.2); Monocytes # (A) 0.47 X 10*3/uL (0.20-1.00); Monocytes % (A) 6.6 %; NRBC Per 100 WBC 0 /100 WBCS (0.0-0.0); Neutrophils # (A) 5.81 X 10*3/uL (1.80-7.70); Platelet Count 163 X 10*3/uL (140-440); RBC 3.01 X 10*6/uL (4.40-5.60); RDW 15.3 % (11.5-14.5); WBC 7.17 X 10*3/uL (4.50-10.00)
[2022-04-30 09:30] LABS: African American GFR (CKD) 37.4 (60.0-200.0); Anion Gap 9.3 mmol/L (10.00-18.00); BUN/Creat Ratio 15.49 Ratio (12.00-20.00); Blood Urea Nitrogen 30.2 mg/dL (9.0-27.0); Calcium 8.5 mg/dL (8.7-10.3); Carbon Dioxide 20.3 mmol/L (20.0-27.5); Non-African American GFR(CKD) 32.2 (60.0-200.0); Potassium 5.5 mmol/L (3.5-5.5)
[2022-04-30] MEDS: SERTRALINE 50 MG TAB PO SCH (09:31)
[2022-04-30] MEDS: FERROUS SULFATE 325 MG TAB PO SCH (09:31)
[2022-04-30] MEDS: CHOLECALCIFEROL 125 MCG (5000 IU) TABLET PO SCH (09:31)
[2022-04-30] MEDS: GABAPENTIN 100 MG CAP PO SCH ×2 (09:31→20:38)
[2022-04-30] MEDS: ATORVASTATIN 20 MG TAB PO SCH (09:31)
[2022-04-30] MEDS: FINASTERIDE 5 MG TAB PO SCH (09:31)
[2022-04-30] MEDS: PIPERACILLIN-TAZOBACTAM 3.375 GM in SODIUM CHLORIDE 0.9% 100 ML IVPB SCH ×2 (09:31→15:42)
[2022-04-30] MEDS: ZINC SULFATE 220 MG CAP PO SCH (09:32)
[2022-04-30] MEDS: ASCORBIC ACID 500 MG TAB PO SCH (09:32)
[2022-04-30] MEDS: GLIMEPIRIDE 1 MG TAB PO SCH (09:32)
[2022-04-30 11:45] LABS: Glucose,Whole Blood 198 mg/dL (75-99)
--- NOTE | 2022-04-30 12:29 | P.NPCON ---
History of Present Illness - Reason for Consult acute renal failure - History of Present Illness Patient is a 77-year-old male with history of type 2 diabetes, COPD, right nephrectomy many years ago. Patient has an underlying history of prostatic cancer. He is admitted to the hospital with gross hematuria. Patient currently has an indwelling Suero catheter. CT of the abdomen and pelvis shows left hydronephrosis. Serum creatinine was 1.0 on 524 and it has increased to 2.0 today. Blood pressure is not low Patient is maintained on Cozaar No history of use of NSAIDs in the hospital although I do see Motrin on his home med list Past Medical History Past Medical History: Coronary Artery Disease (CAD), Cancer, COPD, CVA/TIA, Diabetes Mellitus, Hyperlipidemia, Hypertension, Myocardial Infarction ([place]), Prostate Disorder Additional Past Medical History / Comment(s): prostate cancer with radiation > 20 years ago, nstemi, wears a brief incont urine/stool, permanent pacemaker. 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 Last Myocardial Infarction Date:: 2017 History of Any Multi-Drug Resistant Organisms: ESBL, MRSA Date of last positivie culture/infection: 09/14/21 ESBL; 10/27/18 MRSA MDRO Source:: Urine-ESBL; Back-MRSA Past Surgical History: Coronary Bypass/CABG Additional Past Surgical History / Comment(s): 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,prostate bx, triple bypass 2017, bronchoscopy, picc line pt stated since removed Past Anesthesia/Blood Transfusion Reactions: No Reported Reaction Type of Cardiac Device: Permanent Pacemaker Device Placement Date:: 12/08/20 Past Psychological History: No Psychological Hx Reported Additional Psychological History / Comment(s): Pt resides with his son, Cristo. He uses a wheeled walker. He has a nebulizer. He no longer drives, his son drives. Smoking Status: Former smoker Past Alcohol Use History: None Reported Additional Past Alcohol Use History / Comment(s): Pt started smoking as a teen and was a 3 ppd smoker but quit in 1990. Past Drug Use History: None Reported Additional Drug Use History / Comment(s): Used to use alcohol regularely. States he goes to [employer] meetings. - Past Family History Father Additional Family Medical History / Comment(s): old age Mother Family Medical History: Coronary Artery Disease (CAD), Diabetes Mellitus Additional Family Medical History / Comment(s): CABG Medications and Allergies Home Medications Medication Instructions Recorded Confirmed Type Aspirin [[place] Aspirin EC] 81 mg PO DAILY 01/07/19 04/29/22 History Atorvastatin [Lipitor] 20 mg PO DAILY 01/07/19 04/29/22 History Finasteride [Proscar] 5 mg PO DAILY 01/07/19 04/29/22 History Sertraline HCl [Zoloft] 50 mg PO DAILY 02/05/19 04/29/22 History Tamsulosin [Flomax] 0.4 mg PO HS 07/06/19 04/29/22 History Acetaminophen [Tylenol Arthritis] 650 mg PO HS 07/27/20 04/29/22 History Ferrous Sulfate [Feosol] 325 mg PO DAILY 07/27/20 04/29/22 History Glimepiride [Amaryl] 1 mg PO DAILY 08/24/20 04/29/22 History Gabapentin [Neurontin] 100 mg PO BID 12/06/20 04/29/22 History Nitroglycerin Sl Tabs [Nitrostat] 0.4 mg SL Q5M PRN 02/19/21 04/29/22 History Ascorbic Acid [Vitamin C] 500 mg PO DAILY 09/14/21 04/29/22 History Cholecalciferol (Vitamin D3) 125 mcg PO DAILY 09/14/21 04/29/22 History [Vitamin D3 (125 MCG = 5,000 IU)] Insulin Glargine,Hum.rec.anlog 30 unit SQ HS 09/14/21 04/29/22 History [Lantus Solostar Pen] Losartan Potassium [Cozaar] 25 mg PO HS 09/14/21 04/29/22 History Zinc 50 mg PO DAILY 09/14/21 04/29/22 History Albuterol Inhaler [Ventolin Hfa 2 puff INHALATION RT-Q6H PRN 04/29/22 04/29/22 History Inhaler] Ibuprofen [Motrin Ib] 600 mg PO Q8H PRN 04/29/22 04/29/22 History Nitrofurantoin Monohyd/M-Cryst 100 mg PO Q12HR #14 cap 04/29/22 04/29/22 Rx [Macrobid] Rivaroxaban [Xarelto] 20 mg PO DAILY 04/29/22 04/29/22 History Allergies Allergy/AdvReac Type Severity Reaction Status Date / Time No Known Allergies Allergy Verified 04/29/22 10:23 Physical Exam Vitals: Vital Signs Temp Pulse Pulse Resp BP BP Pulse Ox 04/30/22 08:00 97.7 F 60 19 107/61 95 04/30/22 00:10 66 18 04/30/22 00:07 97.8 F 66 18 154/77 04/29/22 20:42 98 F 70 18 144/84 95 Intake and Output 04/29/22 04/30/22 04/30/22 22:59 06:59 14:59 Output Total 2100 300 Balance -2100 -300 Output: Urine 2100 300 Other: Voiding Method Indwelling Catheter Indwelling Catheter # Bowel Movements 1 Weight 98.43 kg Patient is awake, comfortable, not in any acute distress Examination of the heart S1 and S2 Examination lungs bilateral breath sounds are heard Abdomen is soft nontender Exertion lower extremity shows no significant edema BILINGUAL SALES ASSISTANT exam grossly intact Results - Lab Results Most recent lab results Calcium 8.5 mg/dL (8.7-10.3) L 04/30/22 04:14 04/30/22 04:14 04/30/22 04:14 Assessment and Plan Assessment: 1. Acute kidney injury in a patient with solitary kidney. Obstructive in nature with CAT scan showing evidence of hydronephrosis. They may be a prerenal component as well. Patient will be started on IV fluids. No nephrotoxic agents on board. Blood pressure is not low. Patient is maintained on small dose of angiotensin receptor blockers 2. History of right nephrectomy many years ago 3. History of prostatic cancer with significant hematuria and left hydronephrosis 4. Anemia associated with ongoing bleeding. Rule out iron deficiency 5. Hyperkalemia associated with acute kidney injury and obstructive uropathy 6. Chronic kidney disease NKF stage III previous creatinine 1.0-1.1 mg/dL. Plan: Hold Cozaar because of hyperkalemia Start IV fluids Check iron profile Consult urology Continue with Suero catheter
--- NOTE | 2022-04-30 13:08 | PN ---
PROGRESS NOTE DATE OF SERVICE: 04/30/2022 This 77-year-old gentleman was admitted with severe abdominal pain also had UTI. Patient also had hematuria. No chest pain. No palpitations. No fever. CT scan showed some abnormal bladder. PHYSICAL EXAMINATION: Pulse is 60, blood pressure 106/79, respiration 19. Chest: Clear to auscultation. Abdomen: Soft, obese. Legs no edema. Nervous system: No focal deficits. LABS: Reviewed. Hemoglobin is 8.7, creatinine is 2.0. ASSESSMENT: 1. Acute urinary tract infection with failure of outpatient treatment. 2. Hematuria. 3. Severe groin pain and urinary retention. 4. History of prostate cancer. 5. Chronic renal failure. 6. Chronic obstructive pulmonary disease. 7. Diabetes mellitus, type 2. 8. Multiple medical issues. RECOMMENDATIONS AND DISCUSSION: I recommend to continue current medications, symptomatic treatment. Continue with empiric antibiotics. Urology evaluation. Nephrology evaluation. Repeat labs. Guarded prognosis. Further recommendations to follow. MMODL / IJN: [id number] /
[2022-04-30] MEDS: ACETAMINOPHEN TAB 325 MG TAB PO PRN (15:41)
[2022-04-30 17:03] LABS: Glucose,Whole Blood 152 mg/dL (75-99)
[2022-04-30] MEDS: HYDROcodone/APAP 5-325MG 1 EACH TAB PO PRN (19:06)
[2022-04-30] MEDS: ALBUTEROL NEBULIZED 2.5 MG/3 ML INHALATION PRN (20:31)
[2022-04-30 20:32] LABS: Glucose,Whole Blood 144 mg/dL (75-99)
[2022-04-30] MEDS: ACETAMINOPHEN TAB 325 MG TAB PO SCH (20:38)
[2022-04-30] MEDS: INSULIN DETEMIR (LEVEMIR) 100 UNIT/ML SYR SQ SCH (20:38)
[2022-04-30] MEDS: TAMSULOSIN 0.4 MG CAP.ER.24H PO SCH (20:38)
[2022-04-30] MEDS: SODIUM CHLORIDE 0.9% 1,000 ML IV SCH (20:38)
[2022-05-01] MEDS: PIPERACILLIN-TAZOBACTAM 3.375 GM in SODIUM CHLORIDE 0.9% 100 ML IVPB SCH ×4 (00:06→23:38)
[2022-05-01 06:54] LABS: Glucose,Whole Blood 76 mg/dL (75-99)
[2022-05-01] MEDS: HYDROcodone/APAP 5-325MG 1 EACH TAB PO PRN ×3 (07:29→23:38)
[2022-05-01] MEDS: GLIMEPIRIDE 1 MG TAB PO SCH (09:06)
[2022-05-01] MEDS: ATORVASTATIN 20 MG TAB PO SCH (09:07)
[2022-05-01] MEDS: CHOLECALCIFEROL 125 MCG (5000 IU) TABLET PO SCH (09:07)
[2022-05-01] MEDS: ASCORBIC ACID 500 MG TAB PO SCH (09:07)
[2022-05-01] MEDS: SERTRALINE 50 MG TAB PO SCH (09:07)
[2022-05-01] MEDS: FINASTERIDE 5 MG TAB PO SCH (09:07)
[2022-05-01] MEDS: FERROUS SULFATE 325 MG TAB PO SCH (09:07)
[2022-05-01] MEDS: GABAPENTIN 100 MG CAP PO SCH ×2 (09:07→20:11)
[2022-05-01] MEDS: ZINC SULFATE 220 MG CAP PO SCH (09:07)
[2022-05-01 11:09] LABS: Glucose,Whole Blood 161 mg/dL (75-99)
[2022-05-01 12:33] LABS: Basophils % (A) 0 %; Eosinophils # (A) 0.1 k/uL (0-0.7); Eosinophils % (A) 1 %; HCT 29.7 % (39.0-53.0); Hypochromasia Marked; Lymphocytes # (A) 0.6 k/uL (1.0-4.8); Lymphocytes % (A) 7 %; MCH 30.5 pg (25.0-35.0); MCHC 31.7 g/dL (31.0-37.0); MCV 96.3 fL (80.0-100.0); Mean Platelet Volume 8.6; Monocytes # (A) 0.3 k/uL (0-1.0); Monocytes % (A) 4 %; Neutrophils # (A) 7.3 k/uL (1.3-7.7); Neutrophils % (A) 86 %; Platelet Count 192 k/uL (150-450); RBC 3.09 m/uL (4.30-5.90); RDW 15.3 % (11.5-15.5); WBC 8.5 k/uL (3.8-10.6)
[2022-05-01 12:36] LABS: HGB 9.4 gm/dL (13.0-17.5)
[2022-05-01 12:41] LABS: African American GFR (CKD) 45 (>60 ml/min/1.73 sqM); Anion Gap 7 mmol/L; Blood Urea Nitrogen 30 mg/dL (9-20); Calcium 8.4 mg/dL (8.4-10.2); Carbon Dioxide 24 mmol/L (22-30); Chloride 104 mmol/L (98-107); Glucose 137 mg/dL (74-99); Non-African American GFR(CKD) 39 (>60 ml/min/1.73 sqM); Sodium 135 mmol/L (137-145)
[2022-05-01 13:02] LABS: Potassium 5.7 mmol/L (3.5-5.1)
--- NOTE | 2022-05-01 13:35 | PN ---
PROGRESS NOTE DATE OF SERVICE: 05/01/2022 This 77-year-old gentleman who was admitted with acute UTI is being closely monitored. Urology is following the patient closely. The catheter has been replaced by a large- bore catheter. Hematuria renal failure is also noted. No chest pain. No palpitations. No fever. PHYSICAL EXAMINATION: Pulse 73, blood pressure 115/70, respiration 18. CHEST: Clear to auscultation. CARDIOVASCULAR: S1, S2 muffled. ABDOMEN: Soft. Minimal discomfort in the lower part. Suero catheter present. NERVOUS SYSTEM: No focal deficit. LABS: WBC 9.4. Creatinine is not available. ASSESSMENT: 1. Acute urinary tract infection with failure of outpatient treatment. 2. Hematuria. 3. Severe groin pain and urinary retention with failure of outpatient treatment. 4. History of prostate cancer. 5. Chronic renal failure. 6. Chronic obstructive pulmonary disease. 7. Diabetes mellitus, type 2. 8. Multiple medical issues. RECOMMENDATIONS AND DISCUSSION: I recommend to continue current medications, continue with the monitoring, symptomatic treatment. Continue with the antibiotics. The cultures are showing Gram- negative bacilli. I would recommend infectious disease evaluation. Further recommendations to follow. MMODL / IJN: [id number] / MTDD
[2022-05-01] MEDS ORDERED: SODIUM ZIRCONIUM CYCLOSILICATE 10 GM PACKET PO ONE (14:30)
--- NOTE | 2022-05-01 14:41 | PN ---
PROGRESS NOTE Patient is seen for followup for acute kidney injury with solitary kidney and underlying hematuria. Patient has been evaluated by Urology. Suero catheter has been changed. Urine output seems to be more clear today. On examination today, blood pressure 159/72, heart rate 73 per minute. He is afebrile. Examination of the heart: S1, S2. Examination of the lungs: Decreased breath sounds at the bases. Abdomen is soft, non-tender, obese. Examination of lower extremities shows no evidence of edema. CODING FILE CLERK exam grossly intact. Labs show hemoglobin 9.4, sodium 135, potassium 5.7, BUN 30, serum creatinine 1.69. ASSESSMENT: 1. Acute kidney injury, prerenal as well as obstructive, with solitary kidney, currently with indwelling Suero catheter. Maintained on Flomax, being followed by Urology. Patient has underlying history of prostatic cancer. 2. Urinary tract infection with urine culture growing Gram-negative bacilli, maintained on Zosyn. 3. History of prostatic cancer. 4. Anemia associated with ongoing bleeding/hematuria. Rule out iron deficiency. 5. Hyperkalemia associated with acute kidney injury, obstructive uropathy. Will treat with Lokelma. 6. Chronic kidney disease, stage 3. Baseline creatinine 1 to 1.1 mg/dL secondary to solitary kidney and nephrosclerosis. PLAN: Add Lokelma for hyperkalemia. Continue with IV fluids. Repeat labs in a.m. Continue antibiotics. MMODL / IJN: [id number] /
--- NOTE | 2022-05-01 15:19 | P.GSCN ---
History of Present Illness Consult date: 05/01/22 Reason for Consult: gross hematuria History of present illness: this is a 77 yo male admitted to the hospital with gross hematuria. Of note he was seen in the ER on April 23, was diagnosed with a UTI and discharged home with by mouth antibiotics. He indicated he's had persistent hematuria since that time. Denies any dysuria, has been having difficulty voiding secondary to clots in the urine. Denies any flank pain. Denies any previous history of gross hematuria. he does have history ofprostate cancer, treated with radiation therapy more than 20 years ago. Never had a cystoscopy. Per patient no evidence of prostate cancer recurrence. underwent CT abdomen and pelvis on presentation that showed evidence of distended bladder, with clots versus a mass within the bladder. Hemoglobin is 9.4 from a baseline of 12. Review of Systems - Constitutional Denies fever, Denies weight loss - EENT Ears, nose, mouth and throat: Denies dysphagia - Respiratory Reports cough - Gastrointestinal Reports as per HPI, Denies abdominal pain, Denies nausea, Denies vomiting - Genitourinary Denies dysuria, Denies hematuria Past Medical History Past Medical History: Coronary Artery Disease (CAD), Cancer, COPD, CVA/TIA, Diabetes Mellitus, Hyperlipidemia, Hypertension, Myocardial Infarction ([place]), Prostate Disorder Additional Past Medical History / Comment(s): prostate cancer with radiation > 20 years ago, nstemi, wears a brief incont urine/stool, permanent pacemaker. 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 Last Myocardial Infarction Date:: 2017 History of Any Multi-Drug Resistant Organisms: ESBL, MRSA Year Discovered:: 04/23/22 ESBL; 10/27/18 MRSA MDRO Source:: Urine-ESBL; Back-MRSA Past Surgical History: Coronary Bypass/CABG Additional Past Surgical History / Comment(s): 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,prostate bx, triple bypass 2017, bronchoscopy, picc line pt stated since removed Past Anesthesia/Blood Transfusion Reactions: No Reported Reaction Type of Cardiac Device: Permanent Pacemaker Device Placement Date:: 12/08/20 Past Psychological History: No Psychological Hx Reported Additional Psychological History / Comment(s): Pt resides with his son, Cristo. He uses a wheeled walker. He has a nebulizer. He no longer drives, his son drives. Smoking Status: Former smoker Past Alcohol Use History: None Reported Additional Past Alcohol Use History / Comment(s): Pt started smoking as a teen and was a 3 ppd smoker but quit in 1990. Past Drug Use History: None Reported Additional Drug Use History / Comment(s): Used to use alcohol regularely. States he goes to AA meetings. - Past Family History Father Additional Family Medical History / Comment(s): old age Mother Family Medical History: Coronary Artery Disease (CAD), Diabetes Mellitus Additional Family Medical History / Comment(s): CABG Medications and Allergies Home Medications Medication Instructions Recorded Confirmed Type Aspirin [[place] Aspirin EC] 81 mg PO DAILY 01/07/19 04/29/22 History Atorvastatin [Lipitor] 20 mg PO DAILY 01/07/19 04/29/22 History Finasteride [Proscar] 5 mg PO DAILY 01/07/19 04/29/22 History Sertraline HCl [Zoloft] 50 mg PO DAILY 02/05/19 04/29/22 History Tamsulosin [Flomax] 0.4 mg PO HS 07/06/19 04/29/22 History Acetaminophen [Tylenol Arthritis] 650 mg PO HS 07/27/20 04/29/22 History Ferrous Sulfate [Feosol] 325 mg PO DAILY 07/27/20 04/29/22 History Glimepiride [Amaryl] 1 mg PO DAILY 08/24/20 04/29/22 History Gabapentin [Neurontin] 100 mg PO BID 12/06/20 04/29/22 History Nitroglycerin Sl Tabs [Nitrostat] 0.4 mg SL Q5M PRN 02/19/21 04/29/22 History Ascorbic Acid [Vitamin C] 500 mg PO DAILY 09/14/21 04/29/22 History Cholecalciferol (Vitamin D3) 125 mcg PO DAILY 09/14/21 04/29/22 History [Vitamin D3 (125 MCG = 5,000 IU)] Insulin Glargine,Hum.rec.anlog 30 unit SQ HS 09/14/21 04/29/22 History [Lantus Solostar Pen] Losartan Potassium [Cozaar] 25 mg PO HS 09/14/21 04/29/22 History Zinc 50 mg PO DAILY 09/14/21 04/29/22 History Albuterol Inhaler [Ventolin Hfa 2 puff INHALATION RT-Q6H PRN 04/29/22 04/29/22 History Inhaler] Ibuprofen [Motrin Ib] 600 mg PO Q8H PRN 04/29/22 04/29/22 History Nitrofurantoin Monohyd/M-Cryst 100 mg PO Q12HR #14 cap 04/29/22 04/29/22 Rx [Macrobid] Rivaroxaban [Xarelto] 20 mg PO DAILY 04/29/22 04/29/22 History Allergies Allergy/AdvReac Type Severity Reaction Status Date / Time No Known Allergies Allergy Verified 04/29/22 10:23 Surgical - Exam Vital Signs Temp Pulse Resp BP Pulse Ox 98 F 83 20 137/74 94 L 04/29/22 09:14 04/29/22 09:14 04/29/22 09:14 04/29/22 09:14 04/29/22 09:14 - General no distress, moderate pain - Eyes normal ocular movement, no pale - ENT normal nares, normal mucosa - Respiratory normal expansion, normal respiratory effort - Abdomen Abdomen: soft, non tender - Genitourinary normal penis with no external lesions - Psychiatric oriented to time, oriented to person, oriented to place Results - Labs 05/01/22 11:00 05/01/22 11:00 Abnormal Lab Results - Last 24 Hours (Table) 04/30/22 04/30/22 05/01/22 Range/Units 17:02 20:12 11:00 RBC 3.09 L (4.30-5.90) m/uL Hgb 9.4 L D (13.0-17.5) gm/dL Hct 29.7 L (39.0-53.0) % Lymphocytes # 0.6 L (1.0-4.8) k/uL Sodium (137-145) mmol/L Potassium (3.5-5.1) mmol/L BUN (9-20) mg/dL Creatinine (0.66-1.25) mg/dL Glucose (74-99) mg/dL POC Glucose (mg/dL) 152 H 144 H (75-99) mg/dL 05/01/22 05/01/22 Range/Units 11:00 11:07 RBC (4.30-5.90) m/uL Hgb (13.0-17.5) gm/dL Hct (39.0-53.0) % Lymphocytes # (1.0-4.8) k/uL Sodium 135 L (137-145) mmol/L Potassium 5.7 H (3.5-5.1) mmol/L BUN 30 H (9-20) mg/dL Creatinine 1.69 H (0.66-1.25) mg/dL Glucose 137 H (74-99) mg/dL POC Glucose (mg/dL) 161 H (75-99) mg/dL Microbiology - Last 24 Hours (Table) 04/29/22 10:38 Blood Culture - Preliminary Blood No Growth after 48 hours 04/29/22 10:38 Blood Culture - Preliminary Blood No Growth after 48 hours 04/29/22 11:34 Urine Culture - Preliminary Urine,Catheterized Gram Neg Bacilli Diabetes panel 05/01/22 Range/Units 11:00 Sodium 135 L (137-145) mmol/L Potassium 5.7 H (3.5-5.1) mmol/L Chloride 104 (98-107) mmol/L Carbon Dioxide 24 (22-30) mmol/L BUN 30 H (9-20) mg/dL Creatinine 1.69 H (0.66-1.25) mg/dL Glucose 137 H (74-99) mg/dL Calcium 8.4 (8.4-10.2) mg/dL Calcium panel 05/01/22 Range/Units 11:00 Calcium 8.4 (8.4-10.2) mg/dL Pituitary panel 05/01/22 Range/Units 11:00 Sodium 135 L (137-145) mmol/L Potassium 5.7 H (3.5-5.1) mmol/L Chloride 104 (98-107) mmol/L Carbon Dioxide 24 (22-30) mmol/L BUN 30 H (9-20) mg/dL Creatinine 1.69 H (0.66-1.25) mg/dL Glucose 137 H (74-99) mg/dL Calcium 8.4 (8.4-10.2) mg/dL Adrenal panel 05/01/22 Range/Units 11:00 Sodium 135 L (137-145) mmol/L Potassium 5.7 H (3.5-5.1) mmol/L Chloride 104 (98-107) mmol/L Carbon Dioxide 24 (22-30) mmol/L BUN 30 H (9-20) mg/dL Creatinine 1.69 H (0.66-1.25) mg/dL Glucose 137 H (74-99) mg/dL Calcium 8.4 (8.4-10.2) mg/dL Assessment and Plan Assessment: 77-year-old male admitted to the hospital with a UTI, gross hematuria. Urine cultures are growing gram-negative bacilli. CT on presentation showed evidence of a distended bladder with clots versus a mass within the bladder. Catheter is scanning intermittently clogged with urine draining around the catheter. Hemoglobin stable this morning at 9.4 from 8.7, but patient had a hemoglobin drop is his baseline is around 12. gross hematuria could be secondary to radiation cystitis, versus a bladder mass. Discussed with he will eventually need a cystoscopy to evaluate the bladder. -Suero was upsized to 22-Emirati, was able to irrigate approximately 100 mL of clot was obtained -irrigated Suero every 4 when necessary -We'll obtain a PSA -Discussed we'll need outpatient cystoscopy if hematuria improving as an inpatient, but if it persistent might require a cystoscopy with clot evacuation
--- NOTE | 2022-05-01 15:20 | P.PCN ---
Date of Procedure: 05/01/22 Preoperative Diagnosis: gross hematuria Postoperative Diagnosis: same Procedure(s) Performed: catheter insertion, bladder irrigation Description of Procedure: previous 16-Wallisian Gonzalez catheter was removed, under sterile technique a 22- Wallisian Gonzalez was placed, with the return of hematuric urine, gonzalez balloon was inflated with 20 mL's of saline.. The bladder was irrigated approximately 500 mL's of saline, with return of approximately 100 mL of clot. Urine was light pink at the end of irrigation. Patient tolerated the procedure well
[2022-05-01 16:45] LABS: Glucose,Whole Blood 183 mg/dL (75-99)
[2022-05-01] MEDS: SODIUM CHLORIDE 0.9% 1,000 ML IV SCH ×2 (20:10→21:38)
[2022-05-01] MEDS: ACETAMINOPHEN TAB 325 MG TAB PO SCH (20:10)
[2022-05-01] MEDS: TAMSULOSIN 0.4 MG CAP.ER.24H PO SCH (20:11)
[2022-05-01] MEDS: INSULIN DETEMIR (LEVEMIR) 100 UNIT/ML SYR SQ SCH (20:11)
[2022-05-01 20:15] LABS: Glucose,Whole Blood 145 mg/dL (75-99)
[2022-05-01 22:41] LABS: % Iron Saturation 8.69 (15.00-50.00)
[2022-05-01] MEDS ORDERED: METOPROLOL TARTRATE 25 MG TAB PO STA (23:20)
[2022-05-01] MEDS ORDERED: SODIUM CHLORIDE 0.9% 500 ML 500 ML IV ONE (23:22)
[2022-05-02 07:19] LABS: Glucose,Whole Blood 77 mg/dL (75-99)
[2022-05-02] MEDS: PIPERACILLIN-TAZOBACTAM 3.375 GM in SODIUM CHLORIDE 0.9% 100 ML IVPB SCH (07:53)
[2022-05-02] MEDS: HYDROcodone/APAP 5-325MG 1 EACH TAB PO PRN ×2 (07:53→22:50)
[2022-05-02] MEDS: CHOLECALCIFEROL 125 MCG (5000 IU) TABLET PO SCH (07:54)
[2022-05-02] MEDS: SERTRALINE 50 MG TAB PO SCH (07:54)
[2022-05-02] MEDS: ATORVASTATIN 20 MG TAB PO SCH (07:54)
[2022-05-02] MEDS: FERROUS SULFATE 325 MG TAB PO SCH (07:54)
[2022-05-02] MEDS: ASCORBIC ACID 500 MG TAB PO SCH (07:54)
[2022-05-02] MEDS: GABAPENTIN 100 MG CAP PO SCH ×2 (07:54→20:31)
[2022-05-02] MEDS: ZINC SULFATE 220 MG CAP PO SCH (07:55)
[2022-05-02] MEDS: GLIMEPIRIDE 1 MG TAB PO SCH (07:55)
[2022-05-02] MEDS: FINASTERIDE 5 MG TAB PO SCH (08:03)
[2022-05-02 08:58] LABS: Basophils # (A) 0.04 X 10*3/uL (0.00-0.10); Basophils % (A) 0.4 %; Eosinophils # (A) 0.12 X 10*3/uL (0.04-0.35); Eosinophils % (A) 1.3 %; HCT 31.7 % (39.6-50.0); HGB 9.3 g/dL (13.0-17.0); Immature Grans, Automated 0.6 %; Lymphocytes # (A) 0.53 X 10*3/uL (0.90-5.00); Lymphocytes % (A) 5.9 %; MCHC 29.3 g/dL (32.0-37.0); MCV 98.8 fL (80.0-97.0); Mean Platelet Volume 11.1 fL (9.5-12.2); Monocytes # (A) 0.59 X 10*3/uL (0.20-1.00); Monocytes % (A) 6.5 %; NRBC Per 100 WBC 0 /100 WBCS (0.0-0.0); Neutrophils # (A) 7.72 X 10*3/uL (1.80-7.70); Neutrophils % (A) 85.3 %; Platelet Count 189 X 10*3/uL (140-440); RBC 3.21 X 10*6/uL (4.40-5.60); RDW 15.4 % (11.5-14.5); WBC 9.05 X 10*3/uL (4.50-10.00)
[2022-05-02 09:17] LABS: African American GFR (CKD) 51.3 (60.0-200.0); Anion Gap 12.5 mmol/L (10.00-18.00); BUN/Creat Ratio 13.8 Ratio (12.00-20.00); Blood Urea Nitrogen 20.7 mg/dL (9.0-27.0); Calcium 8.7 mg/dL (8.7-10.3); Carbon Dioxide 21.5 mmol/L (20.0-27.5); Non-African American GFR(CKD) 44.3 (60.0-200.0); Potassium 4.8 mmol/L (3.5-5.5)
--- NOTE | 2022-05-02 09:43 | P.PN ---
Subjective Progress Note Date: 05/02/22 No acute overnight events, urine clear this morning Objective - Vital Signs Vital signs: Vital Signs Temp 98.4 F 05/02/22 08:00 Pulse 71 05/02/22 08:00 Resp 18 05/02/22 08:00 BP 180/77 05/02/22 08:00 Pulse Ox 96 05/02/22 08:00 FiO2 Intake & Output 05/01/22 05/02/22 05/02/22 18:59 06:59 18:59 Intake Total 980 1300 296 Output Total 1150 850 Balance -170 450 296 Intake: Intake, IV Titration 500 900 Amount Piperacillin-Tazobactam 3 200 .375 gm In Sodium Chloride 0.9% 100 ml @ 25 mls/hr IVPB Q8HR [facility] Rx# :[id number] Sodium Chloride 0.9% 1, 300 900 000 ml @ 75 mls/hr IV . [id number] [facility] Rx#:[id number] Oral 480 400 296 Output: Urine 1150 850 Uretheral (Suero) 550 100 Other: Voiding Method Indwelling Catheter # Bowel Movements 2 1 - Constitutional General appearance: Present: no acute distress - Gastrointestinal General gastrointestinal: Present: soft. Absent: distended, tenderness - Labs CBC & Chem 7: 05/02/22 04:01 05/02/22 03:56 Labs: Abnormal Lab Results - Last 24 Hours (Table) 05/01/22 05/01/22 05/01/22 Range/Units 11:00 11:00 11:07 RBC 3.09 L (4.30-5.90) m/uL Hgb 9.4 L D (13.0-17.5) gm/dL Hct 29.7 L (39.0-53.0) % MCV (80.0-97.0) fL MCHC (32.0-37.0) g/dL RDW (11.5-14.5) % Immature Gran # (0.00-0.04) X 10*3/uL Neutrophils # (1.80-7.70) X 10*3/uL Lymphocytes # 0.6 L (1.0-4.8) k/uL Sodium 135 L (137-145) mmol/L Potassium 5.7 H (3.5-5.1) mmol/L BUN 30 H (9-20) mg/dL Creatinine 1.69 H (0.66-1.25) mg/dL Est GFR (CKD-EPI)AfAm (60.0-200.0) Est GFR (CKD-EPI)NonAf (60.0-200.0) Glucose 137 H (74-99) mg/dL POC Glucose (mg/dL) 161 H (75-99) mg/dL Iron (65-175) ug/dL % Saturation (15.00-50.00) Transferrin (204.0-354.0) mg/dL 05/01/22 05/01/22 05/01/22 Range/Units 15:13 16:44 20:14 RBC (4.30-5.90) m/uL Hgb (13.0-17.5) gm/dL Hct (39.0-53.0) % MCV (80.0-97.0) fL MCHC (32.0-37.0) g/dL RDW (11.5-14.5) % Immature Gran # (0.00-0.04) X 10*3/uL Neutrophils # (1.80-7.70) X 10*3/uL Lymphocytes # (1.0-4.8) k/uL Sodium (137-145) mmol/L Potassium (3.5-5.1) mmol/L BUN (9-20) mg/dL Creatinine (0.66-1.25) mg/dL Est GFR (CKD-EPI)AfAm (60.0-200.0) Est GFR (CKD-EPI)NonAf (60.0-200.0) Glucose (74-99) mg/dL POC Glucose (mg/dL) 183 H 145 H (75-99) mg/dL Iron 21 L (65-175) ug/dL % Saturation 8.69 L (15.00-50.00) Transferrin 171.0 L (204.0-354.0) mg/dL 05/02/22 05/02/22 Range/Units 03:56 04:01 RBC 3.21 L (4.30-5.90) m/uL Hgb 9.3 L (13.0-17.5) gm/dL Hct 31.7 L (39.0-53.0) % MCV 98.8 H (80.0-97.0) fL MCHC 29.3 L (32.0-37.0) g/dL RDW 15.4 H (11.5-14.5) % Immature Gran # 0.05 H (0.00-0.04) X 10*3/uL Neutrophils # 7.72 H (1.80-7.70) X 10*3/uL Lymphocytes # 0.53 L (1.0-4.8) k/uL Sodium (137-145) mmol/L Potassium (3.5-5.1) mmol/L BUN (9-20) mg/dL Creatinine (0.66-1.25) mg/dL Est GFR (CKD-EPI)AfAm 51.3 L (60.0-200.0) Est GFR (CKD-EPI)NonAf 44.3 L (60.0-200.0) Glucose 68 L (74-99) mg/dL POC Glucose (mg/dL) (75-99) mg/dL Iron (65-175) ug/dL % Saturation (15.00-50.00) Transferrin (204.0-354.0) mg/dL Microbiology - Last 24 Hours (Table) 04/29/22 11:34 Urine Culture - Final Urine,Catheterized Escherichia coli 04/29/22 10:38 Blood Culture - Preliminary Blood No Growth after 48 hours 04/29/22 10:38 Blood Culture - Preliminary Blood No Growth after 48 hours Assessment and Plan Assessment: 77-year-old male admitted to the hospital with a UTI, gross hematuria. Urine cultures are growing E coli. CT on presentation showed evidence of a distended bladder with clots versus a mass within the bladder. Catheter upsized to 22- Indonesian yesterday, urine is clear this morning -Okay to remove Suero, check a postvoid residual after patient voids -We'll obtain a PSA -Discussed we'll need outpatient cystoscopy to rule out a bladder mass as the cause of his gross hematuria. Okay for discharge from urology standpoint, recommend 7 days of antibiotics based on culture susceptibility
[2022-05-02] MEDS: ERTAPENEM 1 GM in SODIUM CHLORIDE 0.9% 50 ML IVPB SCH (11:42)
--- NOTE | 2022-05-02 11:44 | P.PN ---
Subjective Patient is seen for follow-up for acute kidney injury and top of chronic kidney disease. He was admitted to the hospital with gross hematuria and acute kidney injury. Patient has a solitary kidney which is his left kidney and he has had previous right nephrectomy many years ago. Next Patient is noted to have left hydronephrosis. Suero catheter was placed and upgraded to a larger catheter given his hematuria. Urine had cleared significantly yesterday. Suero catheter was removed this morning. Patient has not voided yet. Serum creatinine is down to 1.5 from peak of 2.0 Objective - Vital Signs Vital signs: Vital Signs Temp 98.4 F 05/02/22 08:00 Pulse 71 05/02/22 08:00 Resp 18 05/02/22 08:00 BP 180/77 05/02/22 08:00 Pulse Ox 96 05/02/22 08:00 FiO2 Intake & Output 05/01/22 05/02/22 05/02/22 18:59 06:59 18:59 Intake Total 980 1300 296 Output Total 1150 850 Balance -170 450 296 Intake: Intake, IV Titration 500 900 Amount Piperacillin-Tazobactam 3 200 .375 gm In Sodium Chloride 0.9% 100 ml @ 25 mls/hr IVPB Q8HR [facility] Rx# :[id number] Sodium Chloride 0.9% 1, 300 900 000 ml @ 75 mls/hr IV . [id number] [facility] Rx#:[id number] Oral 480 400 296 Output: Urine 1150 850 Uretheral (Suero) 550 100 Other: Voiding Method Indwelling Catheter # Bowel Movements 2 1 - Exam Awake, comfortable, alert oriented 3 Not in any acute distress Examination of the heart S1 and S2 Examination of the lungs bilateral breath sounds are heard Abdomen is soft nontender Examination lower extremities shows no evidence of edema [employer] exam grossly intact - Labs CBC & Chem 7: 05/02/22 04:01 05/02/22 03:56 Labs: Abnormal Lab Results - Last 24 Hours (Table) 05/01/22 05/01/22 05/01/22 Range/Units 11:00 11:00 15:13 RBC 3.09 L (4.30-5.90) m/uL Hgb 9.4 L D (13.0-17.5) gm/dL Hct 29.7 L (39.0-53.0) % MCV (80.0-97.0) fL MCHC (32.0-37.0) g/dL RDW (11.5-14.5) % Immature Gran # (0.00-0.04) X 10*3/uL Neutrophils # (1.80-7.70) X 10*3/uL Lymphocytes # 0.6 L (1.0-4.8) k/uL Sodium 135 L (137-145) mmol/L Potassium 5.7 H (3.5-5.1) mmol/L BUN 30 H (9-20) mg/dL Creatinine 1.69 H (0.66-1.25) mg/dL Est GFR (CKD-EPI)AfAm (60.0-200.0) Est GFR (CKD-EPI)NonAf (60.0-200.0) Glucose 137 H (74-99) mg/dL POC Glucose (mg/dL) (75-99) mg/dL Iron 21 L (65-175) ug/dL % Saturation 8.69 L (15.00-50.00) Transferrin 171.0 L (204.0-354.0) mg/dL 05/01/22 05/01/22 05/02/22 Range/Units 16:44 20:14 03:56 RBC (4.30-5.90) m/uL Hgb (13.0-17.5) gm/dL Hct (39.0-53.0) % MCV (80.0-97.0) fL MCHC (32.0-37.0) g/dL RDW (11.5-14.5) % Immature Gran # (0.00-0.04) X 10*3/uL Neutrophils # (1.80-7.70) X 10*3/uL Lymphocytes # (1.0-4.8) k/uL Sodium (137-145) mmol/L Potassium (3.5-5.1) mmol/L BUN (9-20) mg/dL Creatinine (0.66-1.25) mg/dL Est GFR (CKD-EPI)AfAm 51.3 L (60.0-200.0) Est GFR (CKD-EPI)NonAf 44.3 L (60.0-200.0) Glucose 68 L (74-99) mg/dL POC Glucose (mg/dL) 183 H 145 H (75-99) mg/dL Iron (65-175) ug/dL % Saturation (15.00-50.00) Transferrin (204.0-354.0) mg/dL 05/02/22 Range/Units 04:01 RBC 3.21 L (4.30-5.90) m/uL Hgb 9.3 L (13.0-17.5) gm/dL Hct 31.7 L (39.0-53.0) % MCV 98.8 H (80.0-97.0) fL MCHC 29.3 L (32.0-37.0) g/dL RDW 15.4 H (11.5-14.5) % Immature Gran # 0.05 H (0.00-0.04) X 10*3/uL Neutrophils # 7.72 H (1.80-7.70) X 10*3/uL Lymphocytes # 0.53 L (1.0-4.8) k/uL Sodium (137-145) mmol/L Potassium (3.5-5.1) mmol/L BUN (9-20) mg/dL Creatinine (0.66-1.25) mg/dL Est GFR (CKD-EPI)AfAm (60.0-200.0) Est GFR (CKD-EPI)NonAf (60.0-200.0) Glucose (74-99) mg/dL POC Glucose (mg/dL) (75-99) mg/dL Iron (65-175) ug/dL % Saturation (15.00-50.00) Transferrin (204.0-354.0) mg/dL Microbiology - Last 24 Hours (Table) 04/29/22 11:34 Urine Culture - Final Urine,Catheterized Escherichia coli 04/29/22 10:38 Blood Culture - Preliminary Blood No Growth after 48 hours 04/29/22 10:38 Blood Culture - Preliminary Blood No Growth after 48 hours Assessment and Plan Assessment: 1. Acute kidney injury in a patient with solitary kidney. Obstructive in natu re with CAT scan showing evidence of hydronephrosis. They may be a prerenal component as well. Status post IV fluids. No nephrotoxic agents on board. Blood pressure is not low. Patient is maintained on small dose of angiotensin receptor blockers 2. History of right nephrectomy many years ago 3. History of prostatic cancer with significant hematuria and left hydronephrosis 4. Anemia associated with ongoing bleeding. Rule out iron deficiency 5. Hyperkalemia associated with acute kidney injury and obstructive uropathy 6. Chronic kidney disease NKF stage III previous creatinine 1.0-1.1 mg/dL. Plan: Void trial. Monitor for urine retention Follow-up with urology for cystoscopy down the road. Follow-up with nephrology post discharge
[2022-05-02 12:00] LABS: Glucose,Whole Blood 102 mg/dL (75-99)
--- NOTE | 2022-05-02 14:42 | P.PN ---
Subjective Progress Note Date: 05/02/22 This is a pleasant 77-year-old male who was recently admitted with acute urinary tract infection with failed outpatient therapy and is being closely monitored. Patient has been seen and evaluated by urology requiring indwelling Suero catheter and catheter has been removed and patient is due to void. Patient with no further hematuria noted and hemoglobin is stable at 9.3. Patient is afebrile and denies any worsening abdominal pain or urinary retention. Urine culture showing E. coli with ESBL and multi-resistance and have consulted infectious disease and appreciate input and recommendations. Antibiotics have been transition to Invanz per ID recommendations. Nephrology also following the alo ent for acute kidney injury that appears to be obstructive in nature and also a prerenal component. Patient is afebrile and denies any chest pain or shortness of breath. Repeat urinalysis with reflex to culture is ordered and pending. Review of systems: Constitutional: No reports of fatigue, fever, or chills Cardiovascular: No reports of chest pain or palpitations Respiratory: No reports of shortness of breath or cough GI: No reports of nausea, no reports of of vomiting : No reports of dysuria or retention, status post Suero catheter removal today and is due to void Neurovascular: reports of generalized weakness All medications have been reviewed Active Medications Acetaminophen (Acetaminophen Tab 325 Mg Tab) 650 mg PO Q6HR PRN PRN Reason: Mild Pain or Fever > 100.5 Last Admin: 04/30/22 15:41 Dose: 650 mg Acetaminophen (Acetaminophen Tab 325 Mg Tab) 650 mg PO HS [facility] Last Admin: 05/01/22 20:10 Dose: 650 mg Hydrocodone Bitart/Acetaminophen (Hydrocodone/Apap 5-325mg 1 Each Tab) 1 each PO Q6HR PRN PRN Reason: Pain Last Admin: 05/02/22 07:53 Dose: 1 each Albuterol Sulfate (Albuterol Nebulized 2.5 Mg/3 Ml) 2.5 mg INHALATION RT-Q6H PRN PRN Reason: Shortness Of Breath Last Admin: 04/30/22 20:31 Dose: 2.5 mg Ascorbic Acid (Ascorbic Acid 500 Mg Tab) 500 mg PO DAILY [facility] Last Admin: 05/02/22 07:54 Dose: 500 mg Atorvastatin Calcium (Atorvastatin 20 Mg Tab) 20 mg PO DAILY [facility] Last Admin: 05/02/22 07:54 Dose: 20 mg Cholecalciferol (Cholecalciferol 125 Mcg (5000 Iu) Tablet) 125 mcg PO DAILY [facility] Last Admin: 05/02/22 07:54 Dose: 125 mcg Ferrous Sulfate (Ferrous Sulfate 325 Mg Tab) 325 mg PO DAILY [facility] Last Admin: 05/02/22 07:54 Dose: 325 mg Finasteride (Finasteride 5 Mg Tab) 5 mg PO DAILY [facility] Last Admin: 05/02/22 08:03 Dose: 5 mg Gabapentin (Gabapentin 100 Mg Cap) 100 mg PO BID [facility] Last Admin: 05/02/22 07:54 Dose: 100 mg Glimepiride (Glimepiride 1 Mg Tab) 1 mg PO DAILY [facility] Last Admin: 05/02/22 07:55 Dose: 1 mg Hydromorphone HCl (Hydromorphone 0.5 Mg/0.5 Ml Syringe) 0.5 mg IVP Q3HR PRN PRN Reason: Pain Last Admin: 04/29/22 20:18 Dose: 0.5 mg Sodium Chloride (Saline 0.9%) 1,000 mls @ 75 mls/hr IV .[id number] [facility] Last Admin: 05/01/22 21:38 Dose: Not Given Ertapenem 1 gm/ Sodium (Chloride) 50 mls @ 100 mls/hr IVPB DAILY [facility]; Protocol Last Admin: 05/02/22 11:42 Dose: 100 mls/hr Insulin Detemir (Insulin Detemir (Levemir) 100 Unit/Ml Syr) 30 unit SQ HS [facility] Last Admin: 05/01/22 20:11 Dose: 30 unit Naloxone HCl (Naloxone 0.4 Mg/Ml 1 Ml Vial) 0.2 mg IV Q2M PRN PRN Reason: Opioid Reversal Sertraline HCl (Sertraline 50 Mg Tab) 50 mg PO DAILY [facility] Last Admin: 05/02/22 07:54 Dose: 50 mg Tamsulosin HCl (Tamsulosin 0.4 Mg Cap.Er.24h) 0.4 mg PO HS [facility] Last Admin: 05/01/22 20:11 Dose: 0.4 mg Zinc Sulfate (Zinc Sulfate 220 Mg Cap) 220 mg PO DAILY [facility] Last Admin: 05/02/22 07:55 Dose: 220 mg PHYSICAL EXAMINATION: GENERAL: The patient is alert and oriented x4, Well developed, well nourished. HEENT: Pupils are round and equally reacting to light. EOMI. no scleral icterus. No conjunctival pallor. Normocephalic, atraumatic. No pharyngeal erythema. No thyromegaly. CARDIOVASCULAR: S1 and S2 muffled PULMONARY: diminished breath sounds bilaterally with no wheezing or rhonchi noted. ABDOMEN: soft. Nontender on exam. obese. non-distended, normoactive bowel sounds. No palpable organomegaly. MUSCULOSKELETAL: No joint swelling or deformity. EXTREMITIES: No cyanosis, clubbing, or pedal edema. NEUROLOGICAL: Gross neurological examination did not reveal any focal deficits. SKIN: No rashes. Assessment: Acute urinary tract infection with failure of outpatient treatment, present on admission Hematuria Severe groin pain and urinary retention with failure of outpatient treatment History of prostate cancer Chronic renal failure chronic obstructive pulmonary disease diabetes mellitus type 2 GI prophylaxis DVT prophylaxis Full code Plan: Recommend to continue with current medications and management with urology and nephrology following. Infectious disease consulted for ESBL in the urine with E. coli and is being started on IV Invanz. Patient has had failed outpatient treatment and also Suero catheter was just removed by urology today. Patient is due to void. Repeat urinalysis with reflex to culture ordered and pending at this time. Hemoglobin is stable. Will discuss with infectious disease about treatment plan moving forward. Patient is to follow-up with urology in the outpatient setting as discussed. Recommend repeat labs in the a.m. and will continue to monitor closely. Due to multiple complex medical issues prognosis is guarded. The impression and plan of care has been dictated by Nancy De Los Santos, nurse practitioner as directed. MD Monico I have performed a history and examination and MDM of this patient, discussed the same with the dictator, and agree with the dictator's assessment and plan as written ,documented as a scribe. Based on total visit time, I have performed more than 50% of the visit. Any additional findings or plans will be noted. Objective - Vital Signs Vital signs: Vital Signs Temp 98.4 F 05/02/22 08:00 Pulse 71 05/02/22 08:30 Resp 18 05/02/22 08:30 BP 180/77 05/02/22 08:00 Pulse Ox 96 05/02/22 08:00 FiO2 Intake & Output 05/01/22 05/02/22 05/02/22 18:59 06:59 18:59 Intake Total 980 1300 296 Output Total 1150 850 Balance -170 450 296 Intake: Intake, IV Titration 500 900 Amount Piperacillin-Tazobactam 3 200 .375 gm In Sodium Chloride 0.9% 100 ml @ 25 mls/hr IVPB Q8HR [facility] Rx# :[id number] Sodium Chloride 0.9% 1, 300 900 000 ml @ 75 mls/hr IV . [id number] [facility] Rx#:[id number] Oral 480 400 296 Output: Urine 1150 850 Uretheral (Suero) 550 100 Other: Voiding Method Indwelling Catheter # Bowel Movements 2 1 1 - Labs CBC & Chem 7: 05/02/22 04:01 05/02/22 03:56 Labs: Abnormal Lab Results - Last 24 Hours (Table) 05/01/22 05/01/22 05/01/22 Range/Units 11:00 15:13 16:44 RBC (4.40-5.60) X 10*6/uL Hgb (13.0-17.0) g/dL Hct (39.6-50.0) % MCV (80.0-97.0) fL MCHC (32.0-37.0) g/dL RDW (11.5-14.5) % Immature Gran # (0.00-0.04) X 10*3/uL Neutrophils # (1.80-7.70) X 10*3/uL Lymphocytes # (0.90-5.00) X 10*3/uL Sodium 135 L (137-145) mmol/L Potassium 5.7 H (3.5-5.1) mmol/L BUN 30 H (9-20) mg/dL Creatinine 1.69 H (0.66-1.25) mg/dL Est GFR (CKD-EPI)AfAm (60.0-200.0) Est GFR (CKD-EPI)NonAf (60.0-200.0) Glucose 137 H (74-99) mg/dL POC Glucose (mg/dL) 183 H (75-99) mg/dL Iron 21 L (65-175) ug/dL % Saturation 8.69 L (15.00-50.00) Transferrin 171.0 L (204.0-354.0) mg/dL 05/01/22 05/02/22 05/02/22 Range/Units 20:14 03:56 04:01 RBC 3.21 L (4.40-5.60) X 10*6/uL Hgb 9.3 L (13.0-17.0) g/dL Hct 31.7 L (39.6-50.0) % MCV 98.8 H (80.0-97.0) fL MCHC 29.3 L (32.0-37.0) g/dL RDW 15.4 H (11.5-14.5) % Immature Gran # 0.05 H (0.00-0.04) X 10*3/uL Neutrophils # 7.72 H (1.80-7.70) X 10*3/uL Lymphocytes # 0.53 L (0.90-5.00) X 10*3/uL Sodium (137-145) mmol/L Potassium (3.5-5.1) mmol/L BUN (9-20) mg/dL Creatinine (0.66-1.25) mg/dL Est GFR (CKD-EPI)AfAm 51.3 L (60.0-200.0) Est GFR (CKD-EPI)NonAf 44.3 L (60.0-200.0) Glucose 68 L (74-99) mg/dL POC Glucose (mg/dL) 145 H (75-99) mg/dL Iron (65-175) ug/dL % Saturation (15.00-50.00) Transferrin (204.0-354.0) mg/dL 05/02/22 Range/Units 11:58 RBC (4.40-5.60) X 10*6/uL Hgb (13.0-17.0) g/dL Hct (39.6-50.0) % MCV (80.0-97.0) fL MCHC (32.0-37.0) g/dL RDW (11.5-14.5) % Immature Gran # (0.00-0.04) X 10*3/uL Neutrophils # (1.80-7.70) X 10*3/uL Lymphocytes # (0.90-5.00) X 10*3/uL Sodium (137-145) mmol/L Potassium (3.5-5.1) mmol/L BUN (9-20) mg/dL Creatinine (0.66-1.25) mg/dL Est GFR (CKD-EPI)AfAm (60.0-200.0) Est GFR (CKD-EPI)NonAf (60.0-200.0) Glucose (74-99) mg/dL POC Glucose (mg/dL) 102 H (75-99) mg/dL Iron (65-175) ug/dL % Saturation (15.00-50.00) Transferrin (204.0-354.0) mg/dL Microbiology - Last 24 Hours (Table) 04/29/22 10:38 Blood Culture - Preliminary Blood No Growth after 72 hours 04/29/22 10:38 Blood Culture - Preliminary Blood No Growth after 72 hours 04/29/22 11:34 Urine Culture - Final Urine,Catheterized Escherichia coli
[2022-05-02 16:48] LABS: Glucose,Whole Blood 197 mg/dL (75-99)
[2022-05-02 17:18] LABS: Appearance,Urine Clear (Clear); Bacteria,Urine Rare /hpf; Bilirubin,Urine Negative (Negative); Blood,Urine Large (Negative); Color,Urine Light Yellow; Glucose,Urine (UA) Negative (Negative); Ketones,Urine Negative (Negative); Leukocyte Esterase,Urine Moderate (Negative); Nitrite,Urine Negative (Negative); PH, Urine 5.5 (5.0-8.0); Protein,Urine 1+ (Negative); RBC,Urine 57 /hpf (0-5); Specific Gravity,Urine 1.009 (1.001-1.035); Squamous Epithelial Cell,Urine <1 /hpf (0-4); Urobilinogen,Urine <2.0 mg/dL (<2.0); WBC,Urine 16 /hpf (0-5)
[2022-05-02] MEDS: SODIUM CHLORIDE 0.9% 1,000 ML IV SCH (20:26)
[2022-05-02] MEDS: ACETAMINOPHEN TAB 325 MG TAB PO SCH (20:29)
[2022-05-02] MEDS: TAMSULOSIN 0.4 MG CAP.ER.24H PO SCH (20:30)
[2022-05-02 20:39] LABS: Glucose,Whole Blood 154 mg/dL (75-99)
[2022-05-02] MEDS: INSULIN DETEMIR (LEVEMIR) 100 UNIT/ML SYR SQ SCH (21:39)
[2022-05-03] MEDS: SODIUM CHLORIDE 0.9% 1,000 ML IV SCH ×3 (02:23→22:25)
--- NOTE | 2022-05-03 06:48 | P.CONS ---
History of Present Illness - Reason for Consult Consult date: 05/02/22 - History of Present Illness Patient is a 77-year-old male with a past medical history significant for diabetes mellitus hypertension history of prostate cancer kidney stone presenting to the ER 3 days ago for evaluation of hematuria apparently the patient was diagnosed with a UTI on 04/23/2022 and was treated with the Bactrim, subsequently presented to hospital with the patient was noticed to have a ESBL E. coli UTI which was sensitive to Macrobid and the patient was discharged on Macrobid however the patient presented back to the hospital concerning for worsening suprapubic pain more of a dull aching to sharp 3-4 out of 10 head no radiation did have hematuria patient on presentation to the hospital was a febrile and no fever have been recorded subsequently patient did have a normal white count creatinine was elevated he did have a positive UA with large leukocyte esterase 69 WBC urine culture from 530 came back positive for ESBL E. coli patient is currently being treated with the Zosyn infectious disease was consulted today for further management of antibiotic therapy Past Medical History Past Medical History: Coronary Artery Disease (CAD), Cancer, COPD, Diabetes Mellitus, Hyperlipidemia, Hypertension, Myocardial Infarction (MD), Prostate Disorder Additional Past Medical History / Comment(s): prostate cancer with radiation > 20 years ago, nstemi, wears a brief incont urine/stool Last Myocardial Infarction Date:: 2017 History of Any Multi-Drug Resistant Organisms: ESBL, MRSA Year Discovered:: 04/29/22 ESBL; 10/27/18 MRSA MDRO Source:: Urine-ESBL; Back-MRSA Past Surgical History: Coronary Bypass/CABG Additional Past Surgical History / Comment(s): 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,prostate bx, triple bypass 2017, bronchoscopy, picc line pt stated since removed Past Anesthesia/Blood Transfusion Reactions: No Reported Reaction Type of Cardiac Device: Permanent Pacemaker Device Placement Date:: 12/08/20 Past Psychological History: No Psychological Hx Reported Smoking Status: Former smoker Past Alcohol Use History: None Reported Past Drug Use History: None Reported - Past Family History Father Additional Family Medical History / Comment(s): old age Mother Family Medical History: Coronary Artery Disease (CAD), Diabetes Mellitus Additional Family Medical History / Comment(s): CABG Medications and Allergies Home Medications Medication Instructions Recorded Confirmed Type Aspirin [[employer] Aspirin EC] 81 mg PO DAILY 01/07/19 04/29/22 History Atorvastatin [Lipitor] 20 mg PO DAILY 01/07/19 04/29/22 History Finasteride [Proscar] 5 mg PO DAILY 01/07/19 04/29/22 History Sertraline HCl [Zoloft] 50 mg PO DAILY 02/05/19 04/29/22 History Tamsulosin [Flomax] 0.4 mg PO HS 07/06/19 04/29/22 History Acetaminophen [Tylenol Arthritis] 650 mg PO HS 07/27/20 04/29/22 History Ferrous Sulfate [Feosol] 325 mg PO DAILY 07/27/20 04/29/22 History Glimepiride [Amaryl] 1 mg PO DAILY 08/24/20 04/29/22 History Gabapentin [Neurontin] 100 mg PO BID 12/06/20 04/29/22 History Nitroglycerin Sl Tabs [Nitrostat] 0.4 mg SL Q5M PRN 02/19/21 04/29/22 History Ascorbic Acid [Vitamin C] 500 mg PO DAILY 09/14/21 04/29/22 History Cholecalciferol (Vitamin D3) 125 mcg PO DAILY 09/14/21 04/29/22 History [Vitamin D3 (125 MCG = 5,000 IU)] Insulin Glargine,Hum.rec.anlog 30 unit SQ HS 09/14/21 04/29/22 History [Lantus Solostar Pen] Losartan Potassium [Cozaar] 25 mg PO HS 09/14/21 04/29/22 History Zinc 50 mg PO DAILY 09/14/21 04/29/22 History Albuterol Inhaler [Ventolin Hfa 2 puff INHALATION RT-Q6H PRN 04/29/22 04/29/22 History Inhaler] Ibuprofen [Motrin Ib] 600 mg PO Q8H PRN 04/29/22 04/29/22 History Nitrofurantoin Monohyd/M-Cryst 100 mg PO Q12HR #14 cap 04/29/22 04/29/22 Rx [Macrobid] Rivaroxaban [Xarelto] 20 mg PO DAILY 04/29/22 04/29/22 History Allergies Allergy/AdvReac Type Severity Reaction Status Date / Time No Known Allergies Allergy Verified 04/29/22 10:23 Physical Exam Vitals: Vital Signs Temp Pulse Resp BP Pulse Ox 05/02/22 08:00 98.4 F 71 18 180/77 96 05/02/22 02:00 98.4 F 78 14 183/72 94 L 05/01/22 19:06 98.3 F 76 14 141/64 100 05/01/22 18:48 18 05/01/22 14:00 98.7 F 67 18 148/65 93 L Intake and Output 05/01/22 05/02/22 05/02/22 22:59 06:59 14:59 Intake Total 500 1300 296 Output Total 650 750 Balance -150 550 296 Intake: Intake, IV Titration 500 900 Amount Piperacillin-Tazobactam 3 200 .375 gm In Sodium Chloride 0.9% 100 ml @ 25 mls/hr IVPB Q8HR [facility] Rx# :[id number] Sodium Chloride 0.9% 1, 300 900 000 ml @ 75 mls/hr IV . [id number] [facility] Rx#:[id number] Oral 400 296 Output: Urine 650 750 Uretheral (Suero) 650 Other: Voiding Method Indwelling Catheter # Bowel Movements 1 Results CBC & Chem 7: 05/02/22 04:01 05/02/22 03:56 Labs: Abnormal Lab Results - Last 24 Hours (Table) 05/01/22 05/01/22 05/01/22 Range/Units 11:00 11:00 11:07 RBC 3.09 L (4.30-5.90) m/uL Hgb 9.4 L D (13.0-17.5) gm/dL Hct 29.7 L (39.0-53.0) % MCV (80.0-97.0) fL MCHC (32.0-37.0) g/dL RDW (11.5-14.5) % Immature Gran # (0.00-0.04) X 10*3/uL Neutrophils # (1.80-7.70) X 10*3/uL Lymphocytes # 0.6 L (1.0-4.8) k/uL Sodium 135 L (137-145) mmol/L Potassium 5.7 H (3.5-5.1) mmol/L BUN 30 H (9-20) mg/dL Creatinine 1.69 H (0.66-1.25) mg/dL Est GFR (CKD-EPI)AfAm (60.0-200.0) Est GFR (CKD-EPI)NonAf (60.0-200.0) Glucose 137 H (74-99) mg/dL POC Glucose (mg/dL) 161 H (75-99) mg/dL Iron (65-175) ug/dL % Saturation (15.00-50.00) Transferrin (204.0-354.0) mg/dL 05/01/22 05/01/22 05/01/22 Range/Units 15:13 16:44 20:14 RBC (4.30-5.90) m/uL Hgb (13.0-17.5) gm/dL Hct (39.0-53.0) % MCV (80.0-97.0) fL MCHC (32.0-37.0) g/dL RDW (11.5-14.5) % Immature Gran # (0.00-0.04) X 10*3/uL Neutrophils # (1.80-7.70) X 10*3/uL Lymphocytes # (1.0-4.8) k/uL Sodium (137-145) mmol/L Potassium (3.5-5.1) mmol/L BUN (9-20) mg/dL Creatinine (0.66-1.25) mg/dL Est GFR (CKD-EPI)AfAm (60.0-200.0) Est GFR (CKD-EPI)NonAf (60.0-200.0) Glucose (74-99) mg/dL POC Glucose (mg/dL) 183 H 145 H (75-99) mg/dL Iron 21 L (65-175) ug/dL % Saturation 8.69 L (15.00-50.00) Transferrin 171.0 L (204.0-354.0) mg/dL 05/02/22 05/02/22 Range/Units 03:56 04:01 RBC 3.21 L (4.30-5.90) m/uL Hgb 9.3 L (13.0-17.5) gm/dL Hct 31.7 L (39.0-53.0) % MCV 98.8 H (80.0-97.0) fL MCHC 29.3 L (32.0-37.0) g/dL RDW 15.4 H (11.5-14.5) % Immature Gran # 0.05 H (0.00-0.04) X 10*3/uL Neutrophils # 7.72 H (1.80-7.70) X 10*3/uL Lymphocytes # 0.53 L (1.0-4.8) k/uL Sodium (137-145) mmol/L Potassium (3.5-5.1) mmol/L BUN (9-20) mg/dL Creatinine (0.66-1.25) mg/dL Est GFR (CKD-EPI)AfAm 51.3 L (60.0-200.0) Est GFR (CKD-EPI)NonAf 44.3 L (60.0-200.0) Glucose 68 L (74-99) mg/dL POC Glucose (mg/dL) (75-99) mg/dL Iron (65-175) ug/dL % Saturation (15.00-50.00) Transferrin (204.0-354.0) mg/dL Microbiology - Last 24 Hours (Table) 04/29/22 11:34 Urine Culture - Final Urine,Catheterized Escherichia coli 04/29/22 10:38 Blood Culture - Preliminary Blood No Growth after 48 hours 04/29/22 10:38 Blood Culture - Preliminary Blood No Growth after 48 hours Assessment and Plan Plan: 1patient presented to hospital with hematuria suprapubic pain in this patient has been diagnosed with a ESBL E. coli urine tract infection on 04/23/2022 which is failed to respond to outpatient Bactrim and Macrobid therapy. 2repeat a urine culture. 3discontinue Zosyn and start the patient on Invanz 1 g daily. We will follow on clinical condition and cultures to further adjust medication if needed Thank you for this consultation will follow this patient along with you
[2022-05-03 07:12] LABS: Glucose,Whole Blood 69 mg/dL (75-99)
[2022-05-03] MEDS: ALBUTEROL NEBULIZED 2.5 MG/3 ML INHALATION PRN ×3 (08:33→17:25)
[2022-05-03] MEDS: ERTAPENEM 1 GM in SODIUM CHLORIDE 0.9% 50 ML IVPB SCH (08:37)
[2022-05-03] MEDS: GABAPENTIN 100 MG CAP PO SCH ×2 (08:37→21:40)
[2022-05-03] MEDS: ATORVASTATIN 20 MG TAB PO SCH (08:37)
[2022-05-03] MEDS: CHOLECALCIFEROL 125 MCG (5000 IU) TABLET PO SCH (08:37)
[2022-05-03] MEDS: FINASTERIDE 5 MG TAB PO SCH (08:37)
[2022-05-03] MEDS: ZINC SULFATE 220 MG CAP PO SCH (08:37)
[2022-05-03] MEDS: SERTRALINE 50 MG TAB PO SCH (08:37)
[2022-05-03] MEDS: ASCORBIC ACID 500 MG TAB PO SCH (08:37)
[2022-05-03] MEDS: FERROUS SULFATE 325 MG TAB PO SCH (08:37)
[2022-05-03] MEDS: GLIMEPIRIDE 1 MG TAB PO SCH (08:37)
--- NOTE | 2022-05-03 10:41 | P.PN ---
Subjective Patient is seen for follow-up for acute kidney injury and top of chronic kidney disease. He was admitted to the hospital with gross hematuria and acute kidney injury. Patient has a solitary kidney which is his left kidney and he has had previous right nephrectomy many years ago. Next Patient is noted to have left hydronephrosis. Suero catheter was placed and upgraded to a larger catheter given his hematuria. Urine had cleared significantly yesterday. Suero catheter was removed yesterday. Patient has been voiding. Last night post void residual residual was elevated at 500. I'm not sure if this was rechecked Serum creatinine is down to 1.5 from peak of 2.0 Objective - Vital Signs Vital signs: Vital Signs Temp 98.0 F 05/03/22 08:00 Pulse 70 05/03/22 08:44 Resp 16 05/03/22 02:00 BP 156/64 05/03/22 08:00 Pulse Ox 97 05/03/22 08:00 FiO2 Intake & Output 05/02/22 05/03/22 05/03/22 18:59 06:59 18:59 Intake Total 888 Output Total 500 Balance 388 Intake: Oral 888 Output: Post Void Residual 500 Other: Voiding Method Bedside Commode Urinal Diaper # Voids 3 3 # Bowel Movements 1 - Exam Awake, comfortable, alert oriented 3 Not in any acute distress Examination of the heart S1 and S2 Examination of the lungs bilateral breath sounds are heard Abdomen is soft nontender Examination lower extremities shows no evidence of edema [employer]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 exam grossly intact - Labs CBC & Chem 7: 05/02/22 04:01 05/02/22 03:56 Labs: Abnormal Lab Results - Last 24 Hours (Table) 05/02/22 05/02/22 05/02/22 Range/Units 11:58 15:55 16:46 POC Glucose (mg/dL) 102 H 197 H (75-99) mg/dL Urine Protein 1+ H (Negative) Urine Blood Large H (Negative) Ur Leukocyte Esterase Moderate H (Negative) Urine RBC 57 H (0-5) /hpf Urine WBC 16 H (0-5) /hpf Urine Bacteria Rare H (None) /hpf 05/02/22 05/03/22 Range/Units 20:38 07:10 POC Glucose (mg/dL) 154 H 69 L (75-99) mg/dL Urine Protein (Negative) Urine Blood (Negative) Ur Leukocyte Esterase (Negative) Urine RBC (0-5) /hpf Urine WBC (0-5) /hpf Urine Bacteria (None) /hpf Microbiology - Last 24 Hours (Table) 05/02/22 15:55 Urine Culture - Preliminary Urine,Voided 04/29/22 10:38 Blood Culture - Preliminary Blood No Growth after 72 hours 04/29/22 10:38 Blood Culture - Preliminary Blood No Growth after 72 hours Assessment and Plan Assessment: 1. Acute kidney injury in a patient with solitary kidney. Obstructive in nature with CAT scan showing evidence of hydronephrosis. They may be a prerenal component as well. Status post IV fluids. No nephrotoxic agents on board. Blood pressure is not low. Patient is maintained on small dose of angiotensin receptor blockers 2. History of right nephrectomy many years ago 3. History of prostatic cancer with significant hematuria and left hydronephrosis 4. Anemia associated with ongoing bleeding. Rule out iron deficiency 5. Hyperkalemia associated with acute kidney injury and obstructive uropathy 6. Chronic kidney disease NKF stage III previous creatinine 1.0-1.1 mg/dL. Plan: Repeat bladder scan to rule out urine retention. Follow-up with urology post discharge Continue with Flomax
[2022-05-03 11:19] LABS: Glucose,Whole Blood 170 mg/dL (75-99)
[2022-05-03 11:41] LABS: Basophils % (A) 1 %; Eosinophils # (A) 0.1 k/uL (0-0.7); Eosinophils % (A) 2 %; HCT 27.8 % (39.0-53.0); HGB 8.4 gm/dL (13.0-17.5); Hypochromasia Marked; Lymphocytes # (A) 0.5 k/uL (1.0-4.8); Lymphocytes % (A) 8 %; MCH 30.1 pg (25.0-35.0); MCHC 30.3 g/dL (31.0-37.0); MCV 99.2 fL (80.0-100.0); Macrocytosis Slight; Mean Platelet Volume 7.8; Monocytes # (A) 0.2 k/uL (0-1.0); Monocytes % (A) 4 %; Neutrophils # (A) 4.8 k/uL (1.3-7.7); Neutrophils % (A) 84 %; Platelet Count 195 k/uL (150-450); RDW 15.5 % (11.5-15.5); WBC 5.7 k/uL (3.8-10.6)
[2022-05-03 11:55] LABS: African American GFR (CKD) 81 (>60 ml/min/1.73 sqM); Anion Gap 2 mmol/L; Blood Urea Nitrogen 16 mg/dL (9-20); Calcium 8.3 mg/dL (8.4-10.2); Carbon Dioxide 27 mmol/L (22-30); Chloride 110 mmol/L (98-107); Glucose 172 mg/dL (74-99); Non-African American GFR(CKD) 70 (>60 ml/min/1.73 sqM); Potassium 4.4 mmol/L (3.5-5.1); Sodium 139 mmol/L (137-145)
--- NOTE | 2022-05-03 15:21 | P.PN ---
Subjective Progress Note Date: 05/03/22 Patient is unable to void since Suero removal, as required straight cath 2, most recent postvoid residual is 500 ML. Urine remains clear. PSA is 0 Objective - Vital Signs Vital signs: Vital Signs Temp 97.2 F L 05/03/22 13:56 Pulse 84 05/03/22 13:56 Resp 16 05/03/22 08:37 BP 138/68 05/03/22 13:56 Pulse Ox 99 05/03/22 13:56 FiO2 Intake & Output 05/02/22 05/03/22 05/03/22 18:59 06:59 18:59 Intake Total 888 Output Total 500 Balance 388 Intake: Oral 888 Output: Post Void Residual 500 Other: Voiding Method Bedside Commode Indwelling Catheter Urinal Diaper # Voids 3 3 # Bowel Movements 1 1 - Constitutional General appearance: Present: no acute distress - Gastrointestinal General gastrointestinal: Present: soft. Absent: distended, tenderness - Psychiatric Psychiatric: Present: A&O x's 3 - Labs CBC & Chem 7: 05/03/22 11:06 05/03/22 11:06 Labs: Abnormal Lab Results - Last 24 Hours (Table) 05/02/22 05/02/22 05/02/22 Range/Units 15:55 16:46 20:38 RBC (4.30-5.90) m/uL Hgb (13.0-17.5) gm/dL Hct (39.0-53.0) % MCHC (31.0-37.0) g/dL Lymphocytes # (1.0-4.8) k/uL Chloride (98-107) mmol/L Glucose (74-99) mg/dL POC Glucose (mg/dL) 197 H 154 H (75-99) mg/dL Calcium (8.4-10.2) mg/dL Urine Protein 1+ H (Negative) Urine Blood Large H (Negative) Ur Leukocyte Esterase Moderate H (Negative) Urine RBC 57 H (0-5) /hpf Urine WBC 16 H (0-5) /hpf Urine Bacteria Rare H (None) /hpf 05/03/22 05/03/22 05/03/22 Range/Units 07:10 11:06 11:06 RBC 2.80 L (4.30-5.90) m/uL Hgb 8.4 L (13.0-17.5) gm/dL Hct 27.8 L (39.0-53.0) % MCHC 30.3 L (31.0-37.0) g/dL Lymphocytes # 0.5 L (1.0-4.8) k/uL Chloride 110 H (98-107) mmol/L Glucose 172 H (74-99) mg/dL POC Glucose (mg/dL) 69 L (75-99) mg/dL Calcium 8.3 L (8.4-10.2) mg/dL Urine Protein (Negative) Urine Blood (Negative) Ur Leukocyte Esterase (Negative) Urine RBC (0-5) /hpf Urine WBC (0-5) /hpf Urine Bacteria (None) /hpf 05/03/22 Range/Units 11:18 RBC (4.30-5.90) m/uL Hgb (13.0-17.5) gm/dL Hct (39.0-53.0) % MCHC (31.0-37.0) g/dL Lymphocytes # (1.0-4.8) k/uL Chloride (98-107) mmol/L Glucose (74-99) mg/dL POC Glucose (mg/dL) 170 H (75-99) mg/dL Calcium (8.4-10.2) mg/dL Urine Protein (Negative) Urine Blood (Negative) Ur Leukocyte Esterase (Negative) Urine RBC (0-5) /hpf Urine WBC (0-5) /hpf Urine Bacteria (None) /hpf Microbiology - Last 24 Hours (Table) 04/29/22 10:38 Blood Culture - Preliminary Blood No Growth after 96 hours 04/29/22 10:38 Blood Culture - Preliminary Blood No Growth after 96 hours 05/02/22 15:55 Urine Culture - Preliminary Urine,Voided Assessment and Plan Assessment: 77-year-old male admitted to the hospital with a UTI, gross hematuria. Urine cultures are growing E coli. CT on presentation showed evidence of a distended bladder with clots versus a mass within the bladder. Suero removed yesterday, failed trial void. History of radiation second for prostate cancer, PSA is undetectable. -Inserted Suero catheter, can follow-up for a trial of void in 1 week -Continue Flomax -Discussed we'll need outpatient cystoscopy to rule out a bladder mass as the cause of his gross hematuria. Okay for discharge from urology standpoint, recommend 7 days of antibiotics based on culture susceptibility
[2022-05-03 16:29] LABS: Glucose,Whole Blood 183 mg/dL (75-99)
[2022-05-03 21:20] LABS: Glucose,Whole Blood 176 mg/dL (75-99)
[2022-05-03] MEDS: TAMSULOSIN 0.4 MG CAP.ER.24H PO SCH (21:40)
[2022-05-03] MEDS: ACETAMINOPHEN TAB 325 MG TAB PO SCH (21:40)
[2022-05-03] MEDS: INSULIN DETEMIR (LEVEMIR) 100 UNIT/ML SYR SQ SCH (21:47)
[2022-05-04] MEDS: HYDROcodone/APAP 5-325MG 1 EACH TAB PO PRN ×2 (02:55→20:36)
[2022-05-04] MEDS: ALBUTEROL NEBULIZED 2.5 MG/3 ML INHALATION PRN ×3 (03:20→11:43)
[2022-05-04 03:56] LABS: Basophils % (A) 1 %; Eosinophils # (A) 0.1 k/uL (0-0.7); Eosinophils % (A) 2 %; HCT 28.7 % (39.0-53.0); HGB 8.5 gm/dL (13.0-17.5); Hypochromasia Moderate; Lymphocytes # (A) 0.8 k/uL (1.0-4.8); Lymphocytes % (A) 11 %; MCH 28.9 pg (25.0-35.0); MCHC 29.7 g/dL (31.0-37.0); MCV 97.2 fL (80.0-100.0); Monocytes # (A) 0.3 k/uL (0-1.0); Monocytes % (A) 4 %; Neutrophils # (A) 5.9 k/uL (1.3-7.7); Neutrophils % (A) 81 %; Platelet Count 182 k/uL (150-450); RBC 2.95 m/uL (4.30-5.90); RDW 15.1 % (11.5-15.5); WBC 7.3 k/uL (3.8-10.6)
[2022-05-04 04:07] LABS: African American GFR (CKD) 84 (>60 ml/min/1.73 sqM); Anion Gap 5 mmol/L; Blood Urea Nitrogen 14 mg/dL (9-20); Calcium 8.4 mg/dL (8.4-10.2); Carbon Dioxide 25 mmol/L (22-30); Chloride 109 mmol/L (98-107); Glucose 77 mg/dL (74-99); Non-African American GFR(CKD) 72 (>60 ml/min/1.73 sqM); Potassium 4.7 mmol/L (3.5-5.1); Sodium 139 mmol/L (137-145)
--- NOTE | 2022-05-04 06:32 | P.PN ---
Subjective Progress Note Date: 05/03/22 This is a pleasant 77-year-old male who was recently admitted with acute urinary tract infection with failed outpatient therapy and is being closely monitored. Patient has been seen and evaluated by urology requiring indwelling Gonzalez catheter and catheter has been removed and patient is due to void. Patient with no further hematuria noted and hemoglobin is stable at 9.3. Patient is afebrile and denies any worsening abdominal pain or urinary retention. Urine culture showing E. coli with ESBL and multi-resistance and have consulted infectious disease and appreciate input and recommendations. Antibiotics have been transition to Invanz per ID recommendations. Nephrology also following the alo ent for acute kidney injury that appears to be obstructive in nature and also a prerenal component. Patient is afebrile and denies any chest pain or shortness of breath. Repeat urinalysis with reflex to culture is ordered and pending. 05/03/2022 Patient is seen today and required indwelling catheter per urology and will continue and most likely discharge with gonzalez and close outpatient follow up. Awaiting repeat urine culture with ID following and patient is maintained on IV invanz and will continue for now. Patient vss and labs within normal limits. Nephrology following as well and kidney functions improving. creatinine is 1 today. Patient is afebrile and denies any chest pain or shortness of breath. Patient with some mild abdominal pain of palpation. Encouraged increase activity as tolerated. Review of systems: Constitutional: No reports of fatigue, fever, or chills Cardiovascular: No reports of chest pain or palpitations Respiratory: No reports of shortness of breath or cough GI: No reports of nausea, no reports of of vomiting : No reports of dysuria or retention, status post Gonzalez catheter replacement Neurovascular: reports of generalized weakness All medications have been reviewed Active Medications Acetaminophen (Acetaminophen Tab 325 Mg Tab) 650 mg PO Q6HR PRN PRN Reason: Mild Pain or Fever > 100.5 Last Admin: 04/30/22 15:41 Dose: 650 mg Acetaminophen (Acetaminophen Tab 325 Mg Tab) 650 mg PO HS ALEXEY Last Admin: 05/03/22 21:40 Dose: 650 mg Hydrocodone Bitart/Acetaminophen (Hydrocodone/Apap 5-325mg 1 Each Tab) 1 each PO Q6HR PRN PRN Reason: Pain Last Admin: 05/04/22 02:55 Dose: 1 each Albuterol Sulfate (Albuterol Nebulized 2.5 Mg/3 Ml) 2.5 mg INHALATION RT-Q6H PRN PRN Reason: Shortness Of Breath Last Admin: 05/04/22 03:20 Dose: 2.5 mg Ascorbic Acid (Ascorbic Acid 500 Mg Tab) 500 mg PO DAILY [facility] Last Admin: 05/03/22 08:37 Dose: 500 mg Atorvastatin Calcium (Atorvastatin 20 Mg Tab) 20 mg PO DAILY [facility] Last Admin: 05/03/22 08:37 Dose: 20 mg Cholecalciferol (Cholecalciferol 125 Mcg (5000 Iu) Tablet) 125 mcg PO DAILY [facility] Last Admin: 05/03/22 08:37 Dose: 125 mcg Ferrous Sulfate (Ferrous Sulfate 325 Mg Tab) 325 mg PO DAILY [facility] Last Admin: 05/03/22 08:37 Dose: 325 mg Finasteride (Finasteride 5 Mg Tab) 5 mg PO DAILY [facility] Last Admin: 05/03/22 08:37 Dose: 5 mg Gabapentin (Gabapentin 100 Mg Cap) 100 mg PO BID [facility] Last Admin: 05/03/22 21:40 Dose: 100 mg Glimepiride (Glimepiride 1 Mg Tab) 1 mg PO DAILY [facility] Last Admin: 05/03/22 08:37 Dose: 1 mg Hydromorphone HCl (Hydromorphone 0.5 Mg/0.5 Ml Syringe) 0.5 mg IVP Q3HR PRN PRN Reason: Pain Last Admin: 04/29/22 20:18 Dose: 0.5 mg Sodium Chloride (Saline 0.9%) 1,000 mls @ 75 mls/hr IV .[id number] [facility] Last Admin: 05/03/22 22:25 Dose: 75 mls/hr Ertapenem 1 gm/ Sodium (Chloride) 50 mls @ 100 mls/hr IVPB DAILY [facility]; Protocol Last Admin: 05/03/22 08:37 Dose: 100 mls/hr Insulin Detemir (Insulin Detemir (Levemir) 100 Unit/Ml Syr) 30 unit SQ HS [facility] Last Admin: 05/03/22 21:47 Dose: 30 unit Naloxone HCl (Naloxone 0.4 Mg/Ml 1 Ml Vial) 0.2 mg IV Q2M PRN PRN Reason: Opioid Reversal Sertraline HCl (Sertraline 50 Mg Tab) 50 mg PO DAILY [facility] Last Admin: 05/03/22 08:37 Dose: 50 mg Tamsulosin HCl (Tamsulosin 0.4 Mg Cap.Er.24h) 0.4 mg PO HS [facility] Last Admin: 05/03/22 21:40 Dose: 0.4 mg Zinc Sulfate (Zinc Sulfate 220 Mg Cap) 220 mg PO DAILY [facility] Last Admin: 05/03/22 08:37 Dose: 220 mg PHYSICAL EXAMINATION: GENERAL: The patient is alert and oriented x4, Well developed, well nourished. HEENT: Pupils are round and equally reacting to light. EOMI. no scleral icterus. No conjunctival pallor. Normocephalic, atraumatic. No pharyngeal erythema. No thyromegaly. CARDIOVASCULAR: S1 and S2 muffled PULMONARY: diminished breath sounds bilaterally with no wheezing or rhonchi noted. ABDOMEN: soft. mildly tender on exam. obese. non-distended, normoactive bowel sounds. No palpable organomegaly. MUSCULOSKELETAL: No joint swelling or deformity. EXTREMITIES: No cyanosis, clubbing, or pedal edema. NEUROLOGICAL: Gross neurological examination did not reveal any focal deficits. SKIN: No rashes. Assessment: Acute urinary tract infection with failure of outpatient treatment, present on admission Hematuria Severe groin pain and urinary retention with failure of outpatient treatment History of prostate cancer Chronic renal failure chronic obstructive pulmonary disease diabetes mellitus type 2 GI prophylaxis DVT prophylaxis Full code Plan: Recommend to continue with current medications and management with urology and nephrology following. Infectious disease following for ESBL in the urine with E. coli and is maintained on IV Invanz. Patient has had failed outpatient treatment and also Gonzalez catheter inserted again by urology today. Recommend to continue gonzalez. Repeat urinalysis with reflex to culture pending at this time. Will discuss with infectious disease about treatment plan moving forward. Patient is to follow-up with urology in the outpatient setting as discussed. Recommend repeat labs in the a.m. and will continue to monitor closely. Due to multiple complex medical issues prognosis is guarded. The impression and plan of care has been dictated by Nancy De Los Santos, nurse practitioner as directed. MD Monico I have performed a history and examination and MDM of this patient, discussed the same with the dictator, and agree with the dictator's assessment and plan as written ,documented as a scribe. Based on total visit time, I have performed more than 50% of the visit. Any additional findings or plans will be noted. Objective - Vital Signs Vital signs: Vital Signs Temp 98.0 F 05/03/22 08:00 Pulse 70 05/03/22 08:44 Resp 16 05/03/22 02:00 BP 156/64 05/03/22 08:00 Pulse Ox 97 05/03/22 08:00 FiO2 Intake & Output 05/02/22 05/03/22 05/03/22 18:59 06:59 18:59 Intake Total 888 Output Total 500 Balance 388 Intake: Oral 888 Output: Post Void Residual 500 Other: Voiding Method Bedside Commode Urinal Diaper # Voids 3 3 # Bowel Movements 1 - Labs CBC & Chem 7: 05/04/22 03:40 05/04/22 03:35 Labs: Abnormal Lab Results - Last 24 Hours (Table) 05/02/22 05/02/22 05/02/22 Range/Units 11:58 15:55 16:46 POC Glucose (mg/dL) 102 H 197 H (75-99) mg/dL Urine Protein 1+ H (Negative) Urine Blood Large H (Negative) Ur Leukocyte Esterase Moderate H (Negative) Urine RBC 57 H (0-5) /hpf Urine WBC 16 H (0-5) /hpf Urine Bacteria Rare H (None) /hpf 05/02/22 05/03/22 Range/Units 20:38 07:10 POC Glucose (mg/dL) 154 H 69 L (75-99) mg/dL Urine Protein (Negative) Urine Blood (Negative) Ur Leukocyte Esterase (Negative) Urine RBC (0-5) /hpf Urine WBC (0-5) /hpf Urine Bacteria (None) /hpf Microbiology - Last 24 Hours (Table) 05/02/22 15:55 Urine Culture - Preliminary Urine,Voided 04/29/22 10:38 Blood Culture - Preliminary Blood No Growth after 72 hours 04/29/22 10:38 Blood Culture - Preliminary Blood No Growth after 72 hours
[2022-05-04 07:23] LABS: Glucose,Whole Blood 85 mg/dL (75-99)
[2022-05-04] MEDS: ERTAPENEM 1 GM in SODIUM CHLORIDE 0.9% 50 ML IVPB SCH (08:21)
[2022-05-04] MEDS: ZINC SULFATE 220 MG CAP PO SCH (08:22)
[2022-05-04] MEDS: CHOLECALCIFEROL 125 MCG (5000 IU) TABLET PO SCH (08:22)
[2022-05-04] MEDS: ASCORBIC ACID 500 MG TAB PO SCH (08:22)
[2022-05-04] MEDS: SERTRALINE 50 MG TAB PO SCH (08:22)
[2022-05-04] MEDS: ATORVASTATIN 20 MG TAB PO SCH (08:22)
[2022-05-04] MEDS: FERROUS SULFATE 325 MG TAB PO SCH (08:22)
[2022-05-04] MEDS: SODIUM CHLORIDE 0.9% 1,000 ML IV SCH (08:22)
[2022-05-04] MEDS: GABAPENTIN 100 MG CAP PO SCH ×2 (08:22→20:32)
[2022-05-04] MEDS: FINASTERIDE 5 MG TAB PO SCH (08:22)
[2022-05-04] MEDS: GLIMEPIRIDE 1 MG TAB PO SCH (08:22)
--- NOTE | 2022-05-04 11:22 | P.PN ---
Subjective Patient is seen in follow-up for acute kidney injury. Creatinine 1.0 today. Suero catheter reinserted yesterday due to persistent retention. Oral intake fair. Receiving IV fluids. No vomiting or diarrhea. Vital signs are stable. General: Awake. No acute distress. HEENT: Head exam is unremarkable. LUNGS: Breath sounds decreased. HEART: Rate and Rhythm are regular. ABDOMEN: Soft, obese. EXTREMITITES: No edema. Objective - Vital Signs Vital signs: Vital Signs Temp 97.9 F 05/04/22 08:00 Pulse 67 05/04/22 08:36 Resp 18 05/04/22 08:00 BP 149/70 05/04/22 08:00 Pulse Ox 95 05/04/22 08:00 FiO2 Intake & Output 05/03/22 05/04/22 05/04/22 18:59 06:59 18:59 Output Total 400 1050 Balance -400 -1050 Output: Urine 400 1050 Uretheral (Suero) 400 Other: Voiding Method Indwelling Catheter Indwelling Catheter Indwelling Catheter # Bowel Movements 1 - Labs CBC & Chem 7: 05/04/22 03:40 05/04/22 03:35 Labs: Abnormal Lab Results - Last 24 Hours (Table) 05/03/22 05/03/22 05/03/22 Range/Units 11:06 11:06 11:18 RBC 2.80 L (4.30-5.90) m/uL Hgb 8.4 L (13.0-17.5) gm/dL Hct 27.8 L (39.0-53.0) % MCHC 30.3 L (31.0-37.0) g/dL Lymphocytes # 0.5 L (1.0-4.8) k/uL Chloride 110 H (98-107) mmol/L Glucose 172 H (74-99) mg/dL POC Glucose (mg/dL) 170 H (75-99) mg/dL Calcium 8.3 L (8.4-10.2) mg/dL 05/03/22 05/03/22 05/04/22 Range/Units 16:27 21:18 03:35 RBC (4.30-5.90) m/uL Hgb (13.0-17.5) gm/dL Hct (39.0-53.0) % MCHC (31.0-37.0) g/dL Lymphocytes # (1.0-4.8) k/uL Chloride 109 H (98-107) mmol/L Glucose (74-99) mg/dL POC Glucose (mg/dL) 183 H 176 H (75-99) mg/dL Calcium (8.4-10.2) mg/dL 05/04/22 Range/Units 03:40 RBC 2.95 L (4.30-5.90) m/uL Hgb 8.5 L (13.0-17.5) gm/dL Hct 28.7 L (39.0-53.0) % MCHC 29.7 L (31.0-37.0) g/dL Lymphocytes # 0.8 L (1.0-4.8) k/uL Chloride (98-107) mmol/L Glucose (74-99) mg/dL POC Glucose (mg/dL) (75-99) mg/dL Calcium (8.4-10.2) mg/dL Microbiology - Last 24 Hours (Table) 05/02/22 15:55 Urine Culture - Final Urine,Voided 04/29/22 10:38 Blood Culture - Preliminary Blood No Growth after 96 hours 04/29/22 10:38 Blood Culture - Preliminary Blood No Growth after 96 hours Assessment and Plan Plan: Assessment: 1. Acute kidney injury secondary to obstructive uropathy. Improved. Creatinine 1.0 today. 2. History of right nephrectomy. 3. Chronic kidney disease stage IIIA for baseline creatinine near 1.0. Et iology is solitary kidney. 4. Urinary retention. Suero catheter had to be reinserted 05/03/2022. On Flomax. Urology following. Plan for cystoscopy outpatient. 5. History of prostate cancer. 6. Diabetes mellitus. 7. E. coli UTI on antibiotics. Plan: Decrease normal saline to 50 mL an hour. Encouraged oral intake. Avoid nephrotoxins.
[2022-05-04 11:48] LABS: Glucose,Whole Blood 172 mg/dL (75-99)
--- NOTE | 2022-05-04 13:45 | PN ---
PROGRESS NOTE DATE OF SERVICE: 05/04/2022 This 77-year-old gentleman who was admitted with acute UTI had ESBL E coli grown from the culture. No chest pain. No palpitations. Urology is planning outpatient cystoscopy. PHYSICAL EXAMINATION: Pulse is 64, blood pressure 149/70, respiration 18. CHEST: Clear to auscultation. ABDOMEN: Soft, nontender. NERVOUS SYSTEM: No focal deficit. LABS: WBC 7.3, hemoglobin is 8.5. ASSESSMENT: 1. Acute urinary tract infection with failure of outpatient treatment with ESBL Escherichia coli. 2. Severe groin pain. 3. History of prostate cancer. 4. Chronic renal failure. 5. Abnormal CT scan of the bladder, possibly. RECOMMENDATIONS AND DISCUSSION: In this 77-year-old gentleman who presented with multiple complex medical issues, we will monitor the patient closely. Continue the antibiotics. Pain management. PT/OT evaluation. Possible cystoscopy as an outpatient per Urology. Guarded prognosis. Further recommendations to follow. Continue with antibiotic. MMODL / IJN: [id number] /
[2022-05-04 16:51] LABS: Glucose,Whole Blood 114 mg/dL (75-99)
--- NOTE | 2022-05-04 18:21 | P.PN ---
Subjective Urine remains clear. Denies any abdominal pain Objective - Vital Signs Vital signs: Vital Signs Temp 98.0 F 05/04/22 14:00 Pulse 65 05/04/22 14:00 Resp 17 05/04/22 14:00 BP 140/63 05/04/22 14:00 Pulse Ox 96 05/04/22 14:00 FiO2 Intake & Output 05/03/22 05/04/22 05/04/22 18:59 06:59 18:59 Output Total 400 1050 Balance -400 -1050 Output: Urine 400 1050 Uretheral (Suero) 400 Other: Voiding Method Indwelling Catheter Indwelling Catheter Indwelling Catheter # Bowel Movements 1 - Constitutional General appearance: Present: no acute distress - Labs CBC & Chem 7: 05/04/22 03:40 05/04/22 03:35 Labs: Abnormal Lab Results - Last 24 Hours (Table) 05/03/22 05/04/22 05/04/22 Range/Units 21:18 03:35 03:40 RBC 2.95 L (4.30-5.90) m/uL Hgb 8.5 L (13.0-17.5) gm/dL Hct 28.7 L (39.0-53.0) % MCHC 29.7 L (31.0-37.0) g/dL Lymphocytes # 0.8 L (1.0-4.8) k/uL Chloride 109 H (98-107) mmol/L POC Glucose (mg/dL) 176 H (75-99) mg/dL 05/04/22 05/04/22 Range/Units 11:46 16:49 RBC (4.30-5.90) m/uL Hgb (13.0-17.5) gm/dL Hct (39.0-53.0) % MCHC (31.0-37.0) g/dL Lymphocytes # (1.0-4.8) k/uL Chloride (98-107) mmol/L POC Glucose (mg/dL) 172 H 114 H (75-99) mg/dL Microbiology - Last 24 Hours (Table) 04/29/22 10:38 Blood Culture - Preliminary Blood No Growth after 120 hours 04/29/22 10:38 Blood Culture - Preliminary Blood No Growth after 120 hours 05/02/22 15:55 Urine Culture - Final Urine,Voided Assessment and Plan Assessment: 77-year-old male admitted to the hospital with a UTI, gross hematuria. Urine cultures are growing E coli. CT on presentation showed evidence of a distended bladder with clots versus a mass within the bladder. Suero removed 05/02, failed trial void. History of radiation second for prostate cancer, PSA is undetectable. -Keep Suero catheter, can follow-up for a trial of void in 1 week -Continue Flomax -Discussed we'll need outpatient cystoscopy to rule out a bladder mass as the cause of his gross hematuria. Okay for discharge from urology standpoint, recommend 7 days of antibiotics based on culture susceptibility
[2022-05-04 20:31] LABS: Glucose,Whole Blood 208 mg/dL (75-99)
[2022-05-04] MEDS: ACETAMINOPHEN TAB 325 MG TAB PO SCH (20:32)
[2022-05-04] MEDS: INSULIN DETEMIR (LEVEMIR) 100 UNIT/ML SYR SQ SCH (20:33)
[2022-05-04] MEDS: TAMSULOSIN 0.4 MG CAP.ER.24H PO SCH (20:33)
--- NOTE | 2022-05-04 23:43 | P.PN ---
Subjective Progress Note Date: 05/03/22 Principal diagnosis: ESBL E. coli urinary tract infection Patient is a 77-year-old male with multiple comorbidities and has been diagnosed with ESBL E. coli urinary tract infection. On today's evaluation of the 05/03/2022, the patient denies having any fever or chills, the patient is breathing comfortably, no chest pain shortness of breath or cough no abdominal pain and no further hematuria Objective - Vital Signs Vital signs: Vital Signs Temp 98.0 F 05/03/22 08:00 Pulse 64 05/03/22 13:01 Resp 16 05/03/22 08:37 BP 156/64 05/03/22 08:00 Pulse Ox 97 05/03/22 08:00 FiO2 Intake & Output 05/02/22 05/03/22 05/03/22 18:59 06:59 18:59 Intake Total 888 Output Total 500 Balance 388 Intake: Oral 888 Output: Post Void Residual 500 Other: Voiding Method Bedside Commode Indwelling Catheter Urinal Diaper # Voids 3 3 # Bowel Movements 1 - Exam GENERAL DESCRIPTION: An elderly male lying in bed in no distress RESPIRATORY SYSTEM: Unlabored breathing , decreased breath sounds at bases HEART: S1 S2 regular rate and rhythm , ABDOMEN: Soft , no tenderness EXTREMITIES: No edema feet - Labs CBC & Chem 7: 05/04/22 03:40 05/04/22 03:35 Labs: Abnormal Lab Results - Last 24 Hours (Table) 05/02/22 05/02/22 05/02/22 Range/Units 15:55 16:46 20:38 RBC (4.30-5.90) m/uL Hgb (13.0-17.5) gm/dL Hct (39.0-53.0) % MCHC (31.0-37.0) g/dL Lymphocytes # (1.0-4.8) k/uL Chloride (98-107) mmol/L Glucose (74-99) mg/dL POC Glucose (mg/dL) 197 H 154 H (75-99) mg/dL Calcium (8.4-10.2) mg/dL Urine Protein 1+ H (Negative) Urine Blood Large H (Negative) Ur Leukocyte Esterase Moderate H (Negative) Urine RBC 57 H (0-5) /hpf Urine WBC 16 H (0-5) /hpf Urine Bacteria Rare H (None) /hpf 05/03/22 05/03/22 05/03/22 Range/Units 07:10 11:06 11:06 RBC 2.80 L (4.30-5.90) m/uL Hgb 8.4 L (13.0-17.5) gm/dL Hct 27.8 L (39.0-53.0) % MCHC 30.3 L (31.0-37.0) g/dL Lymphocytes # 0.5 L (1.0-4.8) k/uL Chloride 110 H (98-107) mmol/L Glucose 172 H (74-99) mg/dL POC Glucose (mg/dL) 69 L (75-99) mg/dL Calcium 8.3 L (8.4-10.2) mg/dL Urine Protein (Negative) Urine Blood (Negative) Ur Leukocyte Esterase (Negative) Urine RBC (0-5) /hpf Urine WBC (0-5) /hpf Urine Bacteria (None) /hpf 05/03/22 Range/Units 11:18 RBC (4.30-5.90) m/uL Hgb (13.0-17.5) gm/dL Hct (39.0-53.0) % MCHC (31.0-37.0) g/dL Lymphocytes # (1.0-4.8) k/uL Chloride (98-107) mmol/L Glucose (74-99) mg/dL POC Glucose (mg/dL) 170 H (75-99) mg/dL Calcium (8.4-10.2) mg/dL Urine Protein (Negative) Urine Blood (Negative) Ur Leukocyte Esterase (Negative) Urine RBC (0-5) /hpf Urine WBC (0-5) /hpf Urine Bacteria (None) /hpf Microbiology - Last 24 Hours (Table) 04/29/22 10:38 Blood Culture - Preliminary Blood No Growth after 96 hours 04/29/22 10:38 Blood Culture - Preliminary Blood No Growth after 96 hours 05/02/22 15:55 Urine Culture - Preliminary Urine,Voided Assessment and Plan (1) UTI (urinary tract infection) Current Visit: Yes Status: Acute Code(s): N39.0 - URINARY TRACT INFECTION, SITE NOT SPECIFIED SNOMED Code(s): 04348323 Plan: 1patient presented to hospital with hematuria suprapubic pain in this patient has been diagnosed with a ESBL E. coli urine tract infection on 04/23/2022 which is failed to respond to outpatient Bactrim and Macrobid therapy. 2patient repeat urine is positive cultures are pending 3patient to continue with Invanz 1 g daily. Time with Patient: Less than 30
--- NOTE | 2022-05-04 23:44 | P.PN ---
Subjective Progress Note Date: 05/04/22 Principal diagnosis: ESBL E. coli urinary tract infection Patient is a 77-year-old male with multiple comorbidities and has been diagnosed with ESBL E. coli urinary tract infection. On today's evaluation of the 05/04/2022, the patient remains to be afebrile, the patient is breathing comfortably on room air, the patient denies chest pain shortness of breath or cough no abdominal pain and no further hematuria Objective - Vital Signs Vital signs: Vital Signs Temp 98.0 F 05/04/22 14:00 Pulse 65 05/04/22 14:00 Resp 17 05/04/22 14:00 BP 140/63 05/04/22 14:00 Pulse Ox 96 05/04/22 14:00 FiO2 Intake & Output 05/03/22 05/04/22 05/04/22 18:59 06:59 18:59 Output Total 400 1050 Balance -400 -1050 Output: Urine 400 1050 Uretheral (Suero) 400 Other: Voiding Method Indwelling Catheter Indwelling Catheter Indwelling Catheter # Bowel Movements 1 - Exam GENERAL DESCRIPTION: An elderly male lying in bed in no distress RESPIRATORY SYSTEM: Unlabored breathing , decreased breath sounds at bases HEART: S1 S2 regular rate and rhythm , ABDOMEN: Soft , no tenderness EXTREMITIES: No edema feet - Labs CBC & Chem 7: 05/04/22 03:40 05/04/22 03:35 Labs: Abnormal Lab Results - Last 24 Hours (Table) 05/03/22 05/04/22 05/04/22 Range/Units 21:18 03:35 03:40 RBC 2.95 L (4.30-5.90) m/uL Hgb 8.5 L (13.0-17.5) gm/dL Hct 28.7 L (39.0-53.0) % MCHC 29.7 L (31.0-37.0) g/dL Lymphocytes # 0.8 L (1.0-4.8) k/uL Chloride 109 H (98-107) mmol/L POC Glucose (mg/dL) 176 H (75-99) mg/dL 05/04/22 Range/Units 11:46 RBC (4.30-5.90) m/uL Hgb (13.0-17.5) gm/dL Hct (39.0-53.0) % MCHC (31.0-37.0) g/dL Lymphocytes # (1.0-4.8) k/uL Chloride (98-107) mmol/L POC Glucose (mg/dL) 172 H (75-99) mg/dL Microbiology - Last 24 Hours (Table) 04/29/22 10:38 Blood Culture - Preliminary Blood No Growth after 120 hours 04/29/22 10:38 Blood Culture - Preliminary Blood No Growth after 120 hours 05/02/22 15:55 Urine Culture - Final Urine,Voided Assessment and Plan (1) UTI (urinary tract infection) Current Visit: Yes Status: Acute Code(s): N39.0 - URINARY TRACT INFECTION, SITE NOT SPECIFIED SNOMED Code(s): 32429332 Plan: 1patient presented to hospital with hematuria suprapubic pain in this patient has been diagnosed with a ESBL E. coli urine tract infection on 04/23/2022 which is failed to respond to outpatient Bactrim and Macrobid therapy. 2patient repeat urine is positive however cultures are so far negative 3patient seemed to showing clinical improvement and will to continue with Invanz 1 g daily. Time with Patient: Less than 30
[2022-05-05] MEDS: NITROGLYCERIN OINT 1 INCH/GM PACKET TOPICAL SCH ×4 (00:04→23:48)
[2022-05-05] MEDS: guaiFENesin-DM 100-10MG/5ML 10 ML CUP PO PRN ×2 (00:20→19:55)
[2022-05-05 07:10] LABS: Glucose,Whole Blood 79 mg/dL (75-99)
[2022-05-05] MEDS: SERTRALINE 50 MG TAB PO SCH (08:24)
[2022-05-05] MEDS: HYDROcodone/APAP 5-325MG 1 EACH TAB PO PRN ×2 (08:24→19:14)
[2022-05-05] MEDS: ERTAPENEM 1 GM in SODIUM CHLORIDE 0.9% 50 ML IVPB SCH (08:24)
[2022-05-05] MEDS: FERROUS SULFATE 325 MG TAB PO SCH (08:24)
[2022-05-05] MEDS: GABAPENTIN 100 MG CAP PO SCH ×2 (08:24→19:57)
[2022-05-05] MEDS: ASCORBIC ACID 500 MG TAB PO SCH (08:25)
[2022-05-05] MEDS: CHOLECALCIFEROL 125 MCG (5000 IU) TABLET PO SCH (08:25)
[2022-05-05] MEDS: FINASTERIDE 5 MG TAB PO SCH (08:25)
[2022-05-05] MEDS: ZINC SULFATE 220 MG CAP PO SCH (08:25)
[2022-05-05] MEDS: ATORVASTATIN 20 MG TAB PO SCH (08:25)
[2022-05-05] MEDS: SODIUM CHLORIDE 0.9% 1,000 ML IV SCH (08:26)
[2022-05-05] MEDS: GLIMEPIRIDE 1 MG TAB PO SCH (08:32)
--- NOTE | 2022-05-05 09:46 | P.PN ---
Subjective Patient is seen in follow-up for acute kidney injury. Creatinine 1.0 yesterday. Suero catheter reinserted 05/03/2022 due to persistent retention. Nonoliguric. Oral intake fair. Receiving IV fluids. No vomiting or diarrhea. Vital signs are stable. General: Awake. No acute distress. HEENT: Head exam is unremarkable. LUNGS: Breath sounds decreased. HEART: Rate and Rhythm are regular. ABDOMEN: Soft, obese. EXTREMITITES: No edema. Objective - Vital Signs Vital signs: Vital Signs Temp 98.5 F 05/05/22 07:45 Pulse 69 05/05/22 07:45 Resp 19 05/05/22 07:45 BP 174/83 05/05/22 07:45 Pulse Ox 98 05/05/22 07:45 FiO2 Intake & Output 05/04/22 05/05/22 05/05/22 18:59 06:59 18:59 Output Total 1200 Balance -1200 Output: Urine 1200 Other: Voiding Method Indwelling Catheter Indwelling Catheter # Bowel Movements 3 - Labs CBC & Chem 7: 05/04/22 03:40 05/04/22 03:35 Labs: Abnormal Lab Results - Last 24 Hours (Table) 05/04/22 05/04/22 05/04/22 Range/Units 11:46 16:49 20:30 POC Glucose (mg/dL) 172 H 114 H 208 H (75-99) mg/dL Troponin I (0.000-0.034) ng/mL 05/04/22 Range/Units 20:42 POC Glucose (mg/dL) (75-99) mg/dL Troponin I 0.071 H* (0.000-0.034) ng/mL Microbiology - Last 24 Hours (Table) 04/29/22 10:38 Blood Culture - Preliminary Blood No Growth after 120 hours 04/29/22 10:38 Blood Culture - Preliminary Blood No Growth after 120 hours Assessment and Plan Plan: Assessment: 1. Acute kidney injury secondary to obstructive uropathy. Improved. Creatinine 1.0 yesterday. 2. History of right nephrectomy. 3. Chronic kidney disease stage IIIA for baseline creatinine near 1.0. Etiology is solitary kidney. 4. Urinary retention. Suero catheter had to be reinserted 05/03/2022. On Flomax. Urology following. Plan for cystoscopy outpatient. 5. History of prostate cancer. 6. Diabetes mellitus. 7. E. coli UTI on antibiotics. 8. Anemia. Iron deficiency noted. Plan: Hep-Lock IV fluids. Encouraged oral intake. Avoid nephrotoxins. Add IV iron. Continue to monitor renal function and urine output.
--- NOTE | 2022-05-05 11:23 | XR ---
EXAMINATION TYPE: XR chest 1V portable DATE OF EXAM: 05/05/2022 COMPARISON: 04/29/2022 HISTORY: Shortness of breath TECHNIQUE: Single frontal view of the chest is obtained. FINDINGS: There is increasing airspace disease and pleural effusion at the right lung base with Limi daina inspiration and elevated hemidiaphragm. Heart is enlarged and there is postoperative change and c ardiac device with no pneumothorax. Diffuse osteopenia. Correlate for underlying COPD. Heart size sta ble. IMPRESSION: 1. Right lower lobe infiltrate and small effusion increased from prior exam correlate for mild centra l venous congestion.
[2022-05-05] MEDS: SODIUM FERRIC GLUCONAT-SUCROSE 125 MG in SODIUM CHLORIDE 0.9% 100 ML IVPB SCH (11:31)
[2022-05-05] MEDS: hydrALAZINE HCL 25 MG TAB PO SCH ×3 (11:32→19:57)
[2022-05-05 11:37] LABS: Glucose,Whole Blood 209 mg/dL (75-99)
--- NOTE | 2022-05-05 12:45 | P.CRDCN ---
History of Present Illness Consult date: 05/05/22 History of present illness: This is a 77-year-old gentleman with history of permanent pacemaker implantation, coronary artery disease with previous bypass operation done in 2018 with the CHAHAL graft to the LAD, vein graft to the OM branch and PDA who follows with Dr. Harper. Patient also has history of COPD and diabetes. This patient is admitted to the hospital with severe UTI and abdominal pain. Outpatient treatment with antibiotics was unsuccessful. Patient also found to have renal failure with creatinine of about 1.86. He was cautiously being hydrated and also had a Suero catheter. Last night patient blood pressure went up. Patient had a brief episode of chest discomfort and shortness of breath. Patient was given IV hydralazine to be used on when necessary basis. He was also put on Nitropaste 1 inch every 8 hours. Since then patient has been feelin g well. His troponin was mildly elevated. His troponin was elevated in the past also. Currently seemed to be fairly comfortable. He does have some decreased breath sounds at bases. Is going to get a chest x-ray. His fluid management is done by Dr. López, purchasing director. We'll continue monitoring his cardiac enzymes. We will get an echocardiogram. His previous echo Cardigan showed normal LV function. Further examination depend upon clinical course Review of Systems As per the chart Past Medical History Past Medical History: Coronary Artery Disease (CAD), Cancer, COPD, Diabetes Mellitus, Hyperlipidemia, Hypertension, Myocardial Infarction (RI), Prostate Disorder Additional Past Medical History / Comment(s): prostate cancer with radiation > 20 years ago, nstemi, wears a brief incont urine/stool Last Myocardial Infarction Date:: 2017 History of Any Multi-Drug Resistant Organisms: ESBL, MRSA Date of last positivie culture/infection: 04/29/22 ESBL; 10/27/18 MRSA MDRO Source:: Urine-ESBL; Back-MRSA Past Surgical History: Coronary Bypass/CABG Additional Past Surgical History / Comment(s): 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,prostate bx, triple bypass 2017, bronchoscopy, picc line pt stated since removed Past Anesthesia/Blood Transfusion Reactions: No Reported Reaction Type of Cardiac Device: Permanent Pacemaker Device Placement Date:: 12/08/20 Past Psychological History: No Psychological Hx Reported Smoking Status: Former smoker Past Alcohol Use History: None Reported Past Drug Use History: None Reported - Past Family History Father Additional Family Medical History / Comment(s): old age Mother Family Medical History: Coronary Artery Disease (CAD), Diabetes Mellitus Additional Family Medical History / Comment(s): CABG Medications and Allergies Home Medications Medication Instructions Recorded Confirmed Type Aspirin [[place] Aspirin EC] 81 mg PO DAILY 01/07/19 04/29/22 History Atorvastatin [Lipitor] 20 mg PO DAILY 01/07/19 04/29/22 History Finasteride [Proscar] 5 mg PO DAILY 01/07/19 04/29/22 History Sertraline HCl [Zoloft] 50 mg PO DAILY 02/05/19 04/29/22 History Tamsulosin [Flomax] 0.4 mg PO HS 07/06/19 04/29/22 History Acetaminophen [Tylenol Arthritis] 650 mg PO HS 07/27/20 04/29/22 History Ferrous Sulfate [Feosol] 325 mg PO DAILY 07/27/20 04/29/22 History Glimepiride [Amaryl] 1 mg PO DAILY 08/24/20 04/29/22 History Gabapentin [Neurontin] 100 mg PO BID 12/06/20 04/29/22 History Nitroglycerin Sl Tabs [Nitrostat] 0.4 mg SL Q5M PRN 02/19/21 04/29/22 History Ascorbic Acid [Vitamin C] 500 mg PO DAILY 09/14/21 04/29/22 History Cholecalciferol (Vitamin D3) 125 mcg PO DAILY 09/14/21 04/29/22 History [Vitamin D3 (125 MCG = 5,000 IU)] Insulin Glargine,Hum.rec.anlog 30 unit SQ HS 09/14/21 04/29/22 History [Lantus Solostar Pen] Losartan Potassium [Cozaar] 25 mg PO HS 09/14/21 04/29/22 History Zinc 50 mg PO DAILY 09/14/21 04/29/22 History Albuterol Inhaler [Ventolin Hfa 2 puff INHALATION RT-Q6H PRN 04/29/22 04/29/22 H istory Inhaler] Ibuprofen [Motrin Ib] 600 mg PO Q8H PRN 04/29/22 04/29/22 History Nitrofurantoin Monohyd/M-Cryst 100 mg PO Q12HR #14 cap 04/29/22 04/29/22 Rx [Macrobid] Rivaroxaban [Xarelto] 20 mg PO DAILY 04/29/22 04/29/22 History Allergies Allergy/AdvReac Type Severity Reaction Status Date / Time No Known Allergies Allergy Verified 04/29/22 10:23 Physical Exam Vitals: Vital Signs Temp Pulse Resp BP Pulse Ox 05/05/22 11:19 162/80 05/05/22 07:45 98.5 F 69 19 174/83 98 05/05/22 02:00 97.4 F L 69 16 144/61 100 05/04/22 21:50 137/71 05/04/22 20:50 180/71 05/04/22 20:00 98.3 F 80 18 189/72 94 L 05/04/22 14:00 98.0 F 65 17 140/63 96 Intake and Output 05/04/22 05/05/22 05/05/22 22:59 06:59 14:59 Output Total 1200 Balance -1200 Output: Urine 1200 Other: Voiding Method Indwelling Catheter # Bowel Movements 3 GENERAL EXAM: Patient is alert and oriented and doesn't appear to be in any acute distress HEENT: Normocephalic. NECK: No masses, no nuchal rigidity. CHEST: No chest wall deformity. LUNGS: Diminished breath sounds at right base and a few rales HEART: S1 and S2 normal with no audible mumurs or gallops. Regular rhythm, femorals equal on both sides.. ABDOMEN: No hepatosplenomegaly, normal bowel sounds, no guarding or rigidity. SKIN: No rashes CENTRAL NERVOUS SYSTEM: No focal deficits. EXTREMITIES: No cyanosis, clubbing or edema. Results 05/04/22 03:40 05/04/22 03:35 Cardiac Enzymes 05/04/22 Range/Units 20:42 Troponin I 0.071 H* (0.000-0.034) ng/mL Current Medications Generic Name Dose Route Start Last Admin Trade Name Freq PRN Reason Stop Dose Admin Acetaminophen 650 mg 04/29/22 12:40 04/30/22 15:41 Acetaminophen Tab 325 Mg Tab PO 650 mg Q6HR PRN Administration Mild Pain or Fever > 100.5 Acetaminophen 650 mg 04/29/22 21:00 05/04/22 20:32 Acetaminophen Tab 325 Mg Tab PO 650 mg HS ALEXEY Administration Hydrocodone Bitart/Acetaminophen 1 each 04/29/22 16:41 05/05/22 08:24 Hydrocodone/Apap 5-325mg 1 Each Tab PO 1 each Q6HR PRN Administration Pain Albuterol Sulfate 2.5 mg 04/29/22 16:08 05/04/22 11:43 Albuterol Nebulized 2.5 Mg/3 Ml INHALATION 2.5 mg RT-Q6H PRN Administration Shortness Of Breath Ascorbic Acid 500 mg 04/30/22 09:00 05/05/22 08:25 Ascorbic Acid 500 Mg Tab PO 500 mg DAILY ALEXEY Administration Atorvastatin Calcium 20 mg 04/30/22 09:00 05/05/22 08:25 Atorvastatin 20 Mg Tab PO 20 mg DAILY ALEXEY Administration Cholecalciferol 125 mcg 04/30/22 09:00 05/05/22 08:25 Cholecalciferol 125 Mcg (5000 Iu) Tablet PO 125 mcg DAILY ALEXEY Administration Finasteride 5 mg 04/30/22 09:00 05/05/22 08:25 Finasteride 5 Mg Tab PO 5 mg DAILY ALEXEY Administration Gabapentin 100 mg 04/29/22 21:00 05/05/22 08:24 Gabapentin 100 Mg Cap PO 100 mg BID ALEXEY Administration Glimepiride 1 mg 04/30/22 09:00 05/05/22 08:32 Glimepiride 1 Mg Tab PO Not Given DAILY ALEXEY Guaifenesin/Dextromethorphan 5 ml 05/04/22 18:25 05/05/22 00:20 Guaifenesin-Dm 100-10mg/5ml 10 Ml Cup PO 5 ml Q6HR PRN Administration Cough Hydralazine HCl 25 mg 05/05/22 10:00 05/05/22 11:32 Hydralazine Hcl 25 Mg Tab PO 25 mg TID ALEXEY Administration Hydromorphone HCl 0.5 mg 04/29/22 16:41 04/29/22 20:18 Hydromorphone 0.5 Mg/0.5 Ml Syringe IVP 0.5 mg Q3HR PRN Administration Pain Ertapenem 1 gm/ Sodium 50 mls @ 100 mls/hr 05/02/22 12:00 05/05/22 08:24 Chloride IVPB 100 mls/hr DAILY ALEXEY Administration Protocol Ferric Sodium Gluconate 125 mg 110 mls @ 100 mls/hr 05/05/22 11:00 05/05/22 11:31 / Sodium Chloride IVPB 05/08/22 11:01 100 mls/hr DAILY ALEXEY Administration Insulin Detemir 30 unit 04/29/22 21:00 05/04/22 20:33 Insulin Detemir (Levemir) 100 Unit/Ml Syr SQ 30 unit HS ALEXEY Administration Naloxone HCl 0.2 mg 04/29/22 11:22 Naloxone 0.4 Mg/Ml 1 Ml Vial IV Q2M PRN Opioid Reversal Nitroglycerin 1 inch 05/05/22 00:00 05/05/22 08:25 Nitroglycerin Oint 1 Inch/Gm Packet TOPICAL 1 inch Q8HR ALEXEY Administration Sertraline HCl 50 mg 04/30/22 09:00 05/05/22 08:24 Sertraline 50 Mg Tab PO 50 mg DAILY ALEXEY Administration Tamsulosin HCl 0.4 mg 04/29/22 21:00 05/04/22 20:33 Tamsulosin 0.4 Mg Cap.Er.24h PO 0.4 mg HS ALEXEY Administration Zinc Sulfate 220 mg 04/30/22 09:00 05/05/22 08:25 Zinc Sulfate 220 Mg Cap PO 220 mg DAILY ALEXEY Administration Intake and Output 05/04/22 05/05/22 05/05/22 22:59 06:59 14:59 Output Total 1200 Balance -1200 Output: Urine 1200 Other: Voiding Method Indwelling Catheter # Bowel Movements 3 05/04/22 03:40 05/04/22 03:35 EKG Interpretations (text) Showed atrial paced rhythm with left bundle branch block Assessment and Plan (1) Troponin level elevated Current Visit: Yes Status: Acute Code(s): R77.8 - OTHER SPECIFIED ABN ORMALITIES OF PLASMA PROTEINS SNOMED Code(s): 295451440 (2) KAVITHA (acute kidney injury) Current Visit: Yes Status: Acute Code(s): N17.9 - ACUTE KIDNEY FAILURE, UNSPECIFIED SNOMED Code(s): 64818904 (3) UTI (urinary tract infection) Current Visit: Yes Status: Acute Code(s): N39.0 - URINARY TRACT INFECTION, SITE NOT SPECIFIED SNOMED Code(s): 71121984 (4) CHF (congestive heart failure) Current Visit: No Status: Acute Code(s): I50.9 - HEART FAILURE, UNSPECIFIED SNOMED Code(s): 14996481 Plan: Patient had mild chest pain and mildly abnormal troponin. Relieved with Nitropaste has been stable. We will follow his troponin values and get an echocardiogram. Given his acute renal failure and sepsis, we'll try to manage him conservatively. Further comminution depend upon the clinical course. He patient has any recurrence of chest pain or shortness of breath, Patient may need be transferred to telemetry or ICU. Fluid management as for nephrology. If necessary, may be constricted for IV Lasix
--- NOTE | 2022-05-05 15:24 | PN ---
PROGRESS NOTE DATE OF SERVICE: 05/05/2022 This 77-year-old gentleman who was admitted with acute urinary tract infection with ESBL, also had chest pain overnight. Cardiology following the patient closely. The troponin was found to be slightly elevated at 0.071 and 0.076. The patient closely monitored on telemetry. Past medical history reviewed. REVIEW OF SYSTEMS: 14 point review of systems negative as mentioned earlier. CURRENT MEDICATIONS: Reviewed and include: [place], Lipitor, and other medication noted. PHYSICAL EXAMINATION: Pulse is 69, blood pressure 174/83, respiration 19. HEENT: Conjunctivae normal. Neck: No JVD. Cardiovascular: S1, S2 muffled. Respiration: Breath sounds diminished in the bases. No rhonchi. No crackles. Abdomen: Soft, obese. Legs: No edema. No swelling. Nervous system: Diffusely weak. LABS: Noted. Glucose 147. Troponins are noted. ASSESSMENT: 1. Acute urinary tract infection with failure of outpatient treatment with ESBL E coli. 2. Chest pain, rule out acute [id number]-elevation myocardial infarction with troponin 0.076. 3. Severe groin pain. 4. History of prostate cancer. 5. Chronic renal failure. 6. Abnormal CT scan and bladder . RECOMMENDATIONS AND DISCUSSION: Recommend to continue current management and symptomatic treatment. Otherwise closely follow with Cardiology. See orders for details. Guarded prognosis. Further recommendations to follow. MMODL / IJN: [id number] /
[2022-05-05] MEDS: METOPROLOL TARTRATE 12.5 MG TAB PO SCH ×2 (16:13→19:56)
[2022-05-05 16:49] LABS: Glucose,Whole Blood 171 mg/dL (75-99)
[2022-05-05] MEDS: ACETAMINOPHEN TAB 325 MG TAB PO SCH (19:22)
[2022-05-05] MEDS: INSULIN DETEMIR (LEVEMIR) 100 UNIT/ML SYR SQ SCH (19:56)
[2022-05-05] MEDS: TAMSULOSIN 0.4 MG CAP.ER.24H PO SCH (19:57)
[2022-05-05 20:27] LABS: Glucose,Whole Blood 149 mg/dL (75-99)
[2022-05-06 05:59] LABS: ALT 19 U/L (4-49); AST 24 U/L (17-59); African American GFR (CKD) 87 (>60 ml/min/1.73 sqM); Albumin 3.1 g/dL (3.5-5.0); Albumin/Globulin Ratio 1.2; Alkaline Phosphatase 77 U/L (38-126); Anion Gap 7 mmol/L; Blood Urea Nitrogen 17 mg/dL (9-20); Calcium 8.5 mg/dL (8.4-10.2); Carbon Dioxide 26 mmol/L (22-30); Chloride 105 mmol/L (98-107); Globulin 2.5 g/dL; Magnesium 1.8 mg/dL (1.6-2.3); Non-African American GFR(CKD) 76 (>60 ml/min/1.73 sqM); Potassium 4.5 mmol/L (3.5-5.1); Sodium 138 mmol/L (137-145); Total Bilirubin 0.3 mg/dL (0.2-1.3); Total Protein 5.6 g/dL (6.3-8.2)
[2022-05-06 06:36] LABS: Glucose 46 mg/dL (74-99)
[2022-05-06 06:57] LABS: Glucose,Whole Blood 68 mg/dL (75-99)
[2022-05-06] MEDS: ALBUTEROL NEBULIZED 2.5 MG/3 ML INHALATION PRN ×3 (07:01→20:36)
[2022-05-06 07:12] LABS: Glucose,Whole Blood 70 mg/dL (75-99)
[2022-05-06 07:27] LABS: Glucose,Whole Blood 92 mg/dL (75-99)
--- NOTE | 2022-05-06 07:27 | P.PN ---
Subjective Progress Note Date: 05/05/22 Principal diagnosis: ESBL E. coli urinary tract infection Patient is a 77-year-old male with multiple comorbidities and has been diagnosed with ESBL E. coli urinary tract infection. On today's evaluation of the 05/05/2022, the patient denies any fever or chills, the patient is breathing comfortably on 2 L nasal cannula oxygen, the patient denies chest pain shortness of breath or cough no abdominal pain and no further hematuria Objective - Vital Signs Vital signs: Vital Signs Temp 98.5 F 05/05/22 07:45 Pulse 69 05/05/22 07:45 Resp 19 05/05/22 07:45 BP 162/80 05/05/22 11:19 Pulse Ox 98 05/05/22 07:45 FiO2 Intake & Output 05/04/22 05/05/22 05/05/22 18:59 06:59 18:59 Output Total 1200 Balance -1200 Output: Urine 1200 Other: Voiding Method Indwelling Catheter Indwelling Catheter # Bowel Movements 3 - Exam GENERAL DESCRIPTION: An elderly male lying in bed in no distress RESPIRATORY SYSTEM: Unlabored breathing , decreased breath sounds at bases HEART: S1 S2 regular rate and rhythm , ABDOMEN: Soft , no tenderness EXTREMITIES: No edema feet - Labs CBC & Chem 7: 05/04/22 03:40 05/06/22 04:03 Labs: Abnormal Lab Results - Last 24 Hours (Table) 05/04/22 05/04/22 05/04/22 Range/Units 16:49 20:30 20:42 POC Glucose (mg/dL) 114 H 208 H (75-99) mg/dL Troponin I 0.071 H* (0.000-0.034) ng/mL 05/05/22 05/05/22 Range/Units 11:36 12:01 POC Glucose (mg/dL) 209 H (75-99) mg/dL Troponin I 0.076 H* (0.000-0.034) ng/mL Microbiology - Last 24 Hours (Table) 04/29/22 10:38 Blood Culture - Final Blood No Growth after 144 hours 04/29/22 10:38 Blood Culture - Final Blood No Growth after 144 hours Assessment and Plan (1) UTI (urinary tract infection) Current Visit: Yes Status: Acute Code(s): N39.0 - URINARY TRACT INFECTION, SITE NOT SPECIFIED SNOMED Code(s): 97876245 Plan: 1patient presented to hospital with hematuria suprapubic pain in this patient has been diagnosed with a ESBL E. coli urine tract infection on 04/23/2022 which is failed to respond to outpatient Bactrim and Macrobid therapy. 2patient repeat urine is positive however cultures has been negative 3patient has shown clinical improvement and will to continue with Invanz 1 g daily while inpatient however can be discontinued on discharge. Time with Patient: Less than 30
[2022-05-06 08:47] LABS: Basophils # (A) 0.04 X 10*3/uL (0.00-0.10); Basophils % (A) 0.6 %; Eosinophils # (A) 0.16 X 10*3/uL (0.04-0.35); Eosinophils % (A) 2.3 %; HCT 28.9 % (39.6-50.0); HGB 8.4 g/dL (13.0-17.0); Immature Grans, Automated 1.1 %; Lymphocytes # (A) 0.76 X 10*3/uL (0.90-5.00); Lymphocytes % (A) 10.8 %; MCH 28.7 pg (27.0-32.0); MCHC 29.1 g/dL (32.0-37.0); MCV 98.6 fL (80.0-97.0); Mean Platelet Volume 10.3 fL (9.5-12.2); Monocytes # (A) 0.48 X 10*3/uL (0.20-1.00); Monocytes % (A) 6.8 %; NRBC Per 100 WBC 0 /100 WBCS (0.0-0.0); Neutrophils # (A) 5.49 X 10*3/uL (1.80-7.70); Neutrophils % (A) 78.4 %; Platelet Count 194 X 10*3/uL (140-440); RBC 2.93 X 10*6/uL (4.40-5.60); RDW 15.2 % (11.5-14.5); WBC 7.01 X 10*3/uL (4.50-10.00)
[2022-05-06] MEDS: ERTAPENEM 1 GM in SODIUM CHLORIDE 0.9% 50 ML IVPB SCH (09:03)
[2022-05-06] MEDS: hydrALAZINE HCL 25 MG TAB PO SCH ×3 (09:04→20:58)
[2022-05-06] MEDS: HYDROcodone/APAP 5-325MG 1 EACH TAB PO PRN (09:04)
[2022-05-06] MEDS: FINASTERIDE 5 MG TAB PO SCH (09:04)
[2022-05-06] MEDS: GLIMEPIRIDE 1 MG TAB PO SCH (09:04)
[2022-05-06] MEDS: METOPROLOL TARTRATE 12.5 MG TAB PO SCH ×2 (09:04→20:58)
[2022-05-06] MEDS: SERTRALINE 50 MG TAB PO SCH (09:04)
[2022-05-06] MEDS: CHOLECALCIFEROL 125 MCG (5000 IU) TABLET PO SCH (09:04)
[2022-05-06] MEDS: GABAPENTIN 100 MG CAP PO SCH ×2 (09:05→20:58)
[2022-05-06] MEDS: ASCORBIC ACID 500 MG TAB PO SCH (09:05)
[2022-05-06] MEDS: ATORVASTATIN 20 MG TAB PO SCH (09:05)
[2022-05-06] MEDS: NITROGLYCERIN OINT 1 INCH/GM PACKET TOPICAL SCH ×2 (09:05→09:15)
[2022-05-06] MEDS: ZINC SULFATE 220 MG CAP PO SCH (09:05)
--- NOTE | 2022-05-06 10:01 | P.PN ---
Subjective Patient is seen in follow-up for acute kidney injury. Renal function back to baseline. Suero catheter reinserted 05/03/2022 due to persistent retention. Nonoliguric. Oral intake fair. No vomiting or diarrhea. Vital signs are stable. General: Awake. No acute distress. HEENT: Head exam is unremarkable. LUNGS: Breath sounds decreased. HEART: Rate and Rhythm are regular. ABDOMEN: Soft, obese. EXTREMITITES: No edema. Objective - Vital Signs Vital signs: Vital Signs Temp 98.0 F 05/06/22 02:00 Pulse 62 05/06/22 07:16 Resp 18 05/06/22 07:16 BP 143/73 05/06/22 02:00 Pulse Ox 94 L 05/06/22 07:01 FiO2 Intake & Output 05/05/22 05/06/22 05/06/22 18:59 06:59 18:59 Output Total 400 650 Balance -400 -650 Output: Urine 400 650 Other: Voiding Method Indwelling Catheter Indwelling Catheter - Labs CBC & Chem 7: 05/06/22 04:03 05/06/22 04:03 Labs: Abnormal Lab Results - Last 24 Hours (Table) 05/05/22 05/05/22 05/05/22 Range/Units 11:36 12:01 14:29 RBC (4.40-5.60) X 10*6/uL Hgb (13.0-17.0) g/dL Hct (39.6-50.0) % MCV (80.0-97.0) fL MCHC (32.0-37.0) g/dL RDW (11.5-14.5) % Immature Gran # (0.00-0.04) X 10*3/uL Lymphocytes # (0.90-5.00) X 10*3/uL Glucose (74-99) mg/dL POC Glucose (mg/dL) 209 H (75-99) mg/dL Troponin I 0.076 H* 0.073 H* (0.000-0.034) ng/mL Total Protein (6.3-8.2) g/dL Albumin (3.5-5.0) g/dL 05/05/22 05/05/22 05/06/22 Range/Units 16:48 20:24 04:03 RBC 2.93 L (4.40-5.60) X 10*6/uL Hgb 8.4 L (13.0-17.0) g/dL Hct 28.9 L (39.6-50.0) % MCV 98.6 H (80.0-97.0) fL MCHC 29.1 L (32.0-37.0) g/dL RDW 15.2 H (11.5-14.5) % Immature Gran # 0.08 H (0.00-0.04) X 10*3/uL Lymphocytes # 0.76 L (0.90-5.00) X 10*3/uL Glucose (74-99) mg/dL POC Glucose (mg/dL) 171 H 149 H (75-99) mg/dL Troponin I (0.000-0.034) ng/mL Total Protein (6.3-8.2) g/dL Albumin (3.5-5.0) g/dL 05/06/22 05/06/22 05/06/22 Range/Units 04:03 06:55 07:10 RBC (4.40-5.60) X 10*6/uL Hgb (13.0-17.0) g/dL Hct (39.6-50.0) % MCV (80.0-97.0) fL MCHC (32.0-37.0) g/dL RDW (11.5-14.5) % Immature Gran # (0.00-0.04) X 10*3/uL Lymphocytes # (0.90-5.00) X 10*3/uL Glucose 46 L* (74-99) mg/dL POC Glucose (mg/dL) 68 L 70 L (75-99) mg/dL Troponin I (0.000-0.034) ng/mL Total Protein 5.6 L (6.3-8.2) g/dL Albumin 3.1 L (3.5-5.0) g/dL Microbiology - Last 24 Hours (Table) 04/29/22 10:38 Blood Culture - Final Blood No Growth after 144 hours 04/29/22 10:38 Blood Culture - Final Blood No Growth after 144 hours Assessment and Plan Plan: Assessment: 1. Acute kidney injury secondary to obstructive uropathy. Improved. Creatinine 0.97 today. 2. History of right nephrectomy. 3. Chronic kidney disease stage IIIA for baseline creatinine near 1.0. Etiology is solitary kidney. 4. Urinary retention. Suero catheter had to be reinserted 05/03/2022. On Flomax. Urology following. Plan for cystoscopy outpatient. 5. History of prostate cancer. 6. Diabetes mellitus. 7. E. coli UTI on antibiotics. 8. Anemia. Iron deficiency noted. Plan: Encouraged oral intake. Avoid nephrotoxins. Maintain IV iron. Continue to monitor renal function and urine output. Stable for discharge from nephrology standpoint. Follow up outpatient 1 week post discharge.
--- NOTE | 2022-05-06 10:45 | P.PN ---
Subjective Progress Note Date: 05/06/22 HISTORY OF PRESENT ILLNESS: This is a 77-year-old gentleman with history of permanent pacemaker implantation, coronary artery disease with previous bypass operation done in 2018 with the CHAHAL graft to the LAD, vein graft to the OM branch and PDA who follows with Dr. Harper. Patient also has history of COPD and diabetes. This patient is admitted to the hospital with severe UTI and abdominal pain. Outpatient treatment with antibiotics was unsuccessful. Patient also found to h ave renal failure with creatinine of about 1.86. He was cautiously being hydrated and also had a Suero catheter. Last night patient blood pressure went up. Patient had a brief episode of chest discomfort and shortness of breath. Patient was given IV hydralazine to be used on when necessary basis. He was also put on Nitropaste 1 inch every 8 hours. Since then patient has been feeling well. His troponin was mildly elevated. His troponin was elevated in the past also. Currently seemed to be fairly comfortable. He does have some decreased breath sounds at bases. Is going to get a chest x-ray. His fluid management is done by Dr. López, main galley scullion. We'll continue monitoring his cardiac enzymes. We will get an echocardiogram. His previous echo Cardigan showed normal LV function. Further examination depend upon clinical course 05/06/2022 Patient examined this morning at the bedside. Patient denies chest pain or pressure. Denies SOB. His IVF were discontinued this morning. Blood pressure 143/73. PHYSICAL EXAM: VITAL SIGNS: Reviewed. GENERAL: Well-developed in no acute distress. NECK: Supple. No JVD or thyromegaly LUNGS: Respirations even and unlabored. Lungs essentially clear to auscultation bilaterally. HEART: Regular rate and rhythm. S1 and S2 heard. EXTREMITIES: Normal range of motion. No clubbing or cyanosis. Peripheral pulses intact. No lower extremity edema ASSESSMENT: Acute on chronic kidney disease Chest pain, ACS ruled out History of right nephrectomy Permanent pacemaker insertion Coronary artery disease with previous CABG Urinary retention PLAN: Discontinue nitro paste Begin Imdur 30 mg daily Patient is currently stable from a cardiac standpoint We will sign off. Please reconsult if needed. Nurse practitioner note has been reviewed by physician. Signing provider agrees with the documented findings, assessment, and plan of care. Objective - Vital Signs Vital signs: Vital Signs Temp 98.0 F 05/06/22 02:00 Pulse 62 05/06/22 07:16 Resp 18 05/06/22 07:16 BP 143/73 05/06/22 02:00 Pulse Ox 94 L 05/06/22 07:01 FiO2 Intake & Output 05/05/22 05/06/22 05/06/22 18:59 06:59 18:59 Output Total 400 650 Balance -400 -650 Output: Urine 400 650 Other: Voiding Method Indwelling Catheter Indwelling Catheter - Labs CBC & Chem 7: 05/06/22 04:03 05/06/22 04:03 Labs: Abnormal Lab Results - Last 24 Hours (Table) 05/05/22 05/05/22 05/05/22 Range/Units 11:36 12:01 14:29 RBC (4.40-5.60) X 10*6/uL Hgb (13.0-17.0) g/dL Hct (39.6-50.0) % MCV (80.0-97.0) fL MCHC (32.0-37.0) g/dL RDW (11.5-14.5) % Immature Gran # (0.00-0.04) X 10*3/uL Lymphocytes # (0.90-5.00) X 10*3/uL Glucose (74-99) mg/dL POC Glucose (mg/dL) 209 H (75-99) mg/dL Troponin I 0.076 H* 0.073 H* (0.000-0.034) ng/mL Total Protein (6.3-8.2) g/dL Albumin (3.5-5.0) g/dL 05/05/22 05/05/22 05/06/22 Range/Units 16:48 20:24 04:03 RBC 2.93 L (4.40-5.60) X 10*6/uL Hgb 8.4 L (13.0-17.0) g/dL Hct 28.9 L (39.6-50.0) % MCV 98.6 H (80.0-97.0) fL MCHC 29.1 L (32.0-37.0) g/dL RDW 15.2 H (11.5-14.5) % Immature Gran # 0.08 H (0.00-0.04) X 10*3/uL Lymphocytes # 0.76 L (0.90-5.00) X 10*3/uL Glucose (74-99) mg/dL POC Glucose (mg/dL) 171 H 149 H (75-99) mg/dL Troponin I (0.000-0.034) ng/mL Total Protein (6.3-8.2) g/dL Albumin (3.5-5.0) g/dL 05/06/22 05/06/22 05/06/22 Range/Units 04:03 06:55 07:10 RBC (4.40-5.60) X 10*6/uL Hgb (13.0-17.0) g/dL Hct (39.6-50.0) % MCV (80.0-97.0) fL MCHC (32.0-37.0) g/dL RDW (11.5-14.5) % Immature Gran # (0.00-0.04) X 10*3/uL Lymphocytes # (0.90-5.00) X 10*3/uL Glucose 46 L* (74-99) mg/dL POC Glucose (mg/dL) 68 L 70 L (75-99) mg/dL Troponin I (0.000-0.034) ng/mL Total Protein 5.6 L (6.3-8.2) g/dL Albumin 3.1 L (3.5-5.0) g/dL Microbiology - Last 24 Hours (Table) 04/29/22 10:38 Blood Culture - Final Blood No Growth after 144 hours 04/29/22 10:38 Blood Culture - Final Blood No Growth after 144 hours
[2022-05-06 11:38] LABS: Glucose,Whole Blood 204 mg/dL (75-99)
[2022-05-06] MEDS: SODIUM FERRIC GLUCONAT-SUCROSE 125 MG in SODIUM CHLORIDE 0.9% 100 ML IVPB SCH (11:44)
[2022-05-06] MEDS: ISOSORBIDE MONONITRATE ER 30 MG TAB.ER.24H PO SCH (11:44)
--- NOTE | 2022-05-06 12:22 | CA ---
Transthoracic Echo Report Name: Cristo Perez Age: 77 Gender: M : 1945 Exam Date: 05/06/2022 11:27 Exam Location: [facility] Ht (in): 64 Wt (lb): 217 Ordering Physician: Roselyn Tena MD ([id number]) Attending/Referring Phys: Tile Grader Luna Tucker RDCS Procedure CPT: Indications: Chest Pain Cardiac Hx: Hx of bypass,pacemaker,copd,htn,chol. Technical Quality: Technically difficult study Contrast 1: Lumason Total Dose (mL): 1 Contrast 2: Total Dose (mL): MEASUREMENTS (Male / Female) Normal Values 2D ECHO LV Diastolic Diameter PLAX 4.9 cm 4.2 - 5.9 / 3.9 - 5.3 cm LV Systolic Diameter PLAX 2.7 cm IVS Diastolic Thickness 1.5 cm 0.6 - 1.0 / 0.6 - 0.9 cm LVPW Diastolic Thickness 1.6 cm 0.6 - 1.0 / 0.6 - 0.9 cm LV Relative Wall Thickness 0.6 DOPPLER AV Peak Velocity 97.3 cm/s AV Peak Gradient 3.8 mmHg MV Area PHT 2.7 cm??? MR Peak Velocity 91.3 cm/s MR Peak Gradient 3.3 mmHg Mitral E Point Velocity 99.9 cm/s Mitral A Point Velocity 98.0 cm/s Mitral E to A Ratio 1.0 MV Deceleration Time 281.7 ms TR Peak Velocity 70.6 cm/s TR Peak Gradient 2.0 mmHg Right Ventricular Systolic Press 7.0 mmHg FINDINGS Left Ventricle Moderately increased septal wall thickness. Left ventricular cavity size normal. Left ventricular ejection fraction is estimated at 45-50 %. Right Ventricle Right ventricle not well visualized. Right Atrium Right atrium not well visualized. Left Atrium Left atrium not well visualized. Mitral Valve Mitral valve not well visualized. Aortic Valve Aortic valve not well visualized. Tricuspid Valve Tricuspid valve not well visualized. Tricuspid valve not well visualized. Pulmonic Valve Pulmonic valve not well visualized. Pericardium No pericardial effusion. Aorta Aortic root and proximal ascending aorta not well visualized. CONCLUSIONS #1. Suboptimal study with poor visualized left ventricle segments #2. Fairly preserved LV function with atypical. Most of the septum and ejection fraction is about 50%. #3. Valvular function is difficult to assess Previewed by: Dr. Roselyn Tean MD (Electronically Signed) Final Date: 06 May 2022 12:21
[2022-05-06 13:56] VITALS: BMI 37.2
[2022-05-06] MEDS ORDERED: FUROSEMIDE 10 MG/ML 4 ML VIAL IV STA (15:09)
--- NOTE | 2022-05-06 15:09 | P.PN ---
Subjective Progress Note Date: 05/06/22 This is a pleasant 77-year-old male who was recently admitted with acute urinary tract infection with failed outpatient therapy and is being closely monitored. Patient has been seen and evaluated by urology requiring indwelling Gonzalez catheter and catheter has been removed and patient is due to void. Patient with no further hematuria noted and hemoglobin is stable at 9.3. Patient is afebrile and denies any worsening abdominal pain or urinary retention. Urine culture showing E. coli with ESBL and multi-resistance and have consulted infectious disease and appreciate input and recommendations. Antibiotics have been transition to Invanz per ID recommendations. Nephrology also following the alo ent for acute kidney injury that appears to be obstructive in nature and also a prerenal component. Patient is afebrile and denies any chest pain or shortness of breath. Repeat urinalysis with reflex to culture is ordered and pending. 05/03/2022 Patient is seen today and required indwelling catheter per urology and will continue and most likely discharge with gonzalez and close outpatient follow up. Awaiting repeat urine culture with ID following and patient is maintained on IV invanz and will continue for now. Patient vss and labs within normal limits. Nephrology following as well and kidney functions improving. creatinine is 1 today. Patient is afebrile and denies any chest pain or shortness of breath. Patient with some mild abdominal pain of palpation. Encouraged increase activity as tolerated. 05/06/2022 Patient was seen in follow-up this morning currently maintained on 2 L as [facility] staff reports he had a brief episode of chest pain with elevated blood pressure and some shortness of breath. Chest x-ray shows a right lower lobe infiltrate and small effusion increased from prior exam and correlate for mild central venous congestion. Will give a small dose of IV Lasix and wean FiO2 as tolerated. Patient is continued on IV Invanz and urine cultures are negative with ID following. Cardiology was consulted for concerns and the positive troponin that were mildly elevated in order to 2-D echo which shows a moderately increased septal wall thickness with left ventricular ejection fraction estimated at 45-50% with a noted suboptimal study. Patient will continue to follow with cardiology in the outpatient setting. Urology and nephrology also following patient did require indwelling Gonzalez catheter and will discharge on this and have outpatient urology follow-up. Patient is receiving IV iron for iron deficiency anemia. Patient is afebrile and denies any worsening shortness of breath or chest pain today. Will have physical therapy evaluate the patient although patient reports his plan is to go home with his son who is his caregiver. Review of systems: Constitutional: No reports of fatigue, fever, or chills Cardiovascular: No reports of chest pain or palpitations Respiratory: No reports of shortness of breath or cough GI: No reports of nausea, no reports of of vomiting : No reports of dysuria or retention, status post Gonzalez catheter replacement Neurovascular: reports of generalized weakness All medications have been reviewed Active Medications Acetaminophen (Acetaminophen Tab 325 Mg Tab) 650 mg PO Q6HR PRN PRN Reason: Mild Pain or Fever > 100.5 Last Admin: 04/30/22 15:41 Dose: 650 mg Acetaminophen (Acetaminophen Tab 325 Mg Tab) 650 mg PO [facility] Last Admin: 05/05/22 19:22 Dose: Not Given Hydrocodone Bitart/Acetaminophen (Hydrocodone/Apap 5-325mg 1 Each Tab) 1 each PO Q6HR PRN PRN Reason: Pain Last Admin: 05/06/22 09:04 Dose: 1 each Albuterol Sulfate (Albuterol Nebulized 2.5 Mg/3 Ml) 2.5 mg INHALATION RT-Q6H PRN PRN Reason: Shortness Of Breath Last Admin: 05/06/22 11:00 Dose: 2.5 mg Ascorbic Acid (Ascorbic Acid 500 Mg Tab) 500 mg PO DAILY [facility] Last Admin: 05/06/22 09:05 Dose: 500 mg Atorvastatin Calcium (Atorvastatin 20 Mg Tab) 20 mg PO DAILY [facility] Last Admin: 05/06/22 09:05 Dose: 20 mg Cholecalciferol (Cholecalciferol 125 Mcg (5000 Iu) Tablet) 125 mcg PO DAILY [facility] Last Admin: 05/06/22 09:04 Dose: 125 mcg Finasteride (Finasteride 5 Mg Tab) 5 mg PO DAILY [facility] Last Admin: 05/06/22 09:04 Dose: 5 mg Gabapentin (Gabapentin 100 Mg Cap) 100 mg PO BID [facility] Last Admin: 05/06/22 09:05 Dose: 100 mg Guaifenesin/Dextromethorphan (Guaifenesin-Dm 100-10mg/5ml 10 Ml Cup) 5 ml PO Q6HR PRN PRN Reason: Cough Last Admin: 05/05/22 19:55 Dose: 5 ml Hydralazine HCl (Hydralazine Hcl 25 Mg Tab) 25 mg PO TID [facility] Last Admin: 05/06/22 09:04 Dose: 25 mg Hydromorphone HCl (Hydromorphone 0.5 Mg/0.5 Ml Syringe) 0.5 mg IVP Q3HR PRN PRN Reason: Pain Last Admin: 04/29/22 20:18 Dose: 0.5 mg Ertapenem 1 gm/ Sodium (Chloride) 50 mls @ 100 mls/hr IVPB DAILY [facility]; Protocol Last Admin: 05/06/22 09:03 Dose: 100 mls/hr Ferric Sodium Gluconate 125 mg (/ Sodium Chloride) 110 mls @ 100 mls/hr IVPB DAILY [facility] Stop: 05/08/22 11:01 Last Admin: 05/06/22 11:44 Dose: 100 mls/hr Insulin Aspart (Insulin Aspart (Novolog) 100 Unit/Ml Vial) 0 unit SQ [facility]; Protocol Insulin Detemir (Insulin Detemir (Levemir) 100 Unit/Ml Syr) 30 unit SQ [facility] Last Admin: 05/05/22 19:56 Dose: 30 unit Isosorbide Mononitrate (Isosorbide Mononitrate Er 30 Mg Tab.Er.24h) 30 mg PO DA EDA [facility] Last Admin: 05/06/22 11:44 Dose: 30 mg Metoprolol Tartrate (Metoprolol Tartrate 12.5 Mg Tab) 12.5 mg PO BID [facility] Last Admin: 05/06/22 09:04 Dose: 12.5 mg Naloxone HCl (Naloxone 0.4 Mg/Ml 1 Ml Vial) 0.2 mg IV Q2M PRN PRN Reason: Opioid Reversal Sertraline HCl (Sertraline 50 Mg Tab) 50 mg PO DAILY [facility] Last Admin: 05/06/22 09:04 Dose: 50 mg Tamsulosin HCl (Tamsulosin 0.4 Mg Cap.Er.24h) 0.4 mg PO [facility] Last Admin: 05/05/22 19:57 Dose: 0.4 mg Zinc Sulfate (Zinc Sulfate 220 Mg Cap) 220 mg PO DAILY [facility] Last Admin: 05/06/22 09:05 Dose: 220 mg PHYSICAL EXAMINATION: GENERAL: The patient is alert and oriented x4, Well developed, well nourished. HEENT: Pupils are round and equally reacting to light. EOMI. no scleral icterus. No conjunctival pallor. Normocephalic, atraumatic. No pharyngeal erythema. No thyromegaly. CARDIOVASCULAR: S1 and S2 muffled PULMONARY: diminished breath sounds bilateral with some scattered rhonchi noted. ABDOMEN: soft. Non-tender on exam. obese. non-distended, normoactive bowel sounds. No palpable organomegaly. MUSCULOSKELETAL: No joint swelling or deformity. EXTREMITIES: No cyanosis, clubbing, or pedal edema. NEUROLOGICAL: Gross neurological examination did not reveal any focal deficits. SKIN: No rashes. Assessment: Acute urinary tract infection with failure of outpatient treatment, present on admission Hematuria Chest pain ruled out ACS Severe groin pain and urinary retention with failure of outpatient treatment History of prostate cancer Chronic renal failure Coronary artery disease with previous CABG Permanent pacemaker chronic obstructive pulmonary disease diabetes mellitus type 2 GI prophylaxis DVT prophylaxis Full code Plan: Recommend to continue with current medications and management with urology and nephrology following. Infectious disease following for ESBL in the urine with E. coli and is maintained on IV Invanz. Patient has had failed outpatient treatment and also Gonzalez catheter inserted again for continued retention. Recommend to continue gonzalez and will have patient follow-up in the outpatient setting with urology . Repeat urine is negative and patient will continue IV Invanz for now and discontinue antibiotics on discharge. Chest x-ray showed some venous congestion patient was maintained on fluids which have been discontinued. Will give 1 dose of IV Lasix. Patient is to follow-up with nephrology outpatient as well. Patient is to follow-up with urology in the outpatient setting as discussed. will have physical therapy evaluate the patient as patient is weak and reports he will be going home with his son who is his caregiver. Due to multiple complex medical issues prognosis is guarded. possible discharge in 24 hours. The impression and plan of care has been dictated by Nancy De Los Santos nurse practitioner as directed. Dr. Mayank MD I have performed a history and examination and MDM of this patient, discussed the same with the dictator, and agree with the dictator's assessment and plan as written ,documented as a scribe. Based on total visit time, I have performed more than 50% of the visit. Any additional findings or plans will be noted. Objective - Vital Signs Vital signs: Vital Signs Temp 98.0 F 05/06/22 02:00 Pulse 62 06/06/22 07:16 Resp 18 05/06/22 07:16 BP 143/73 05/06/22 02:00 Pulse Ox 94 L 05/06/22 07:01 FiO2 Intake & Output 05/05/22 05/06/22 05/06/22 18:59 06:59 18:59 Output Total 400 650 Balance -400 -650 Output: Urine 400 650 Other: Voiding Method Indwelling Catheter Indwelling Catheter - Labs CBC & Chem 7: 05/06/22 04:03 05/06/22 04:03 Labs: Abnormal Lab Results - Last 24 Hours (Table) 05/05/22 05/05/22 05/05/22 Range/Units 11:36 12:01 14:29 RBC (4.40-5.60) X 10*6/uL Hgb (13.0-17.0) g/dL Hct (39.6-50.0) % MCV (80.0-97.0) fL MCHC (32.0-37.0) g/dL RDW (11.5-14.5) % Immature Gran # (0.00-0.04) X 10*3/uL Lymphocytes # (0.90-5.00) X 10*3/uL Glucose (74-99) mg/dL POC Glucose (mg/dL) 209 H (75-99) mg/dL Troponin I 0.076 H* 0.073 H* (0.000-0.034) ng/mL Total Protein (6.3-8.2) g/dL Albumin (3.5-5.0) g/dL 05/05/22 05/05/22 05/06/22 Range/Units 16:48 20:24 04:03 RBC 2.93 L (4.40-5.60) X 10*6/uL Hgb 8.4 L (13.0-17.0) g/dL Hct 28.9 L (39.6-50.0) % MCV 98.6 H (80.0-97.0) fL MCHC 29.1 L (32.0-37.0) g/dL RDW 15.2 H (11.5-14.5) % Immature Gran # 0.08 H (0.00-0.04) X 10*3/uL Lymphocytes # 0.76 L (0.90-5.00) X 10*3/uL Glucose (74-99) mg/dL POC Glucose (mg/dL) 171 H 149 H (75-99) mg/dL Troponin I (0.000-0.034) ng/mL Total Protein (6.3-8.2) g/dL Albumin (3.5-5.0) g/dL 05/06/22 05/06/22 05/06/22 Range/Units 04:03 06:55 07:10 RBC (4.40-5.60) X 10*6/uL Hgb (13.0-17.0) g/dL Hct (39.6-50.0) % MCV (80.0-97.0) fL MCHC (32.0-37.0) g/dL RDW (11.5-14.5) % Immature Gran # (0.00-0.04) X 10*3/uL Lymphocytes # (0.90-5.00) X 10*3/uL Glucose 46 L* (74-99) mg/dL POC Glucose (mg/dL) 68 L 70 L (75-99) mg/dL Troponin I (0.000-0.034) ng/mL Total Protein 5.6 L (6.3-8.2) g/dL Albumin 3.1 L (3.5-5.0) g/dL Microbiology - Last 24 Hours (Table) 04/29/22 10:38 Blood Culture - Final Blood No Growth after 144 hours 04/29/22 10:38 Blood Culture - Final Blood No Growth after 144 hours
[2022-05-06 16:32] LABS: Glucose,Whole Blood 168 mg/dL (75-99)
[2022-05-06] MEDS: INSULIN ASPART (NovoLOG) 100 UNIT/ML VIAL SQ SCH ×2 (17:31→21:01)
[2022-05-06] MEDS: guaiFENesin-DM 100-10MG/5ML 10 ML CUP PO PRN (19:47)
[2022-05-06 20:55] LABS: Glucose,Whole Blood 103 mg/dL (75-99)
[2022-05-06] MEDS: ACETAMINOPHEN TAB 325 MG TAB PO SCH (20:58)
[2022-05-06] MEDS: TAMSULOSIN 0.4 MG CAP.ER.24H PO SCH (20:58)
[2022-05-06] MEDS: INSULIN DETEMIR (LEVEMIR) 100 UNIT/ML SYR SQ SCH (20:59)
[2022-05-06] MEDS ORDERED: IPRATROPIUM-ALBUTEROL 3 ML NEB INHALATION PRN (23:01)
[2022-05-06] MEDS: methylPREDNISolone SOD SUCCI 125 MG/2 ML VIAL IV SCH (23:12)
--- NOTE | 2022-05-06 23:55 | XR ---
EXAMINATION TYPE: XR chest 1V portable DATE OF EXAM: 05/06/2022 COMPARISON: Yesterday HISTORY: Short of breath TECHNIQUE: Single view FINDINGS: There is elevation of the right diaphragm. No heart failure seen. There is left axillary pa cemaker. There are sternal wires. There are chest leads. IMPRESSION: Chronic elevation of the right diaphragm without change. No heart failure.
[2022-05-07] MEDS: FORMOTEROL FUMARATE 20 MCG/2 ML NEBU INHALATION SCH ×3 (00:19→20:28)
[2022-05-07] MEDS: BUDESONIDE 1 MG/2 ML NEBU INHALATION SCH ×3 (00:19→20:28)
[2022-05-07 01:50] LABS: Glucose,Whole Blood 152 mg/dL (75-99)
[2022-05-07] MEDS: CALCIUM CARBONATE 500 MG CHEWABLE PO PRN ×2 (04:31→23:30)
[2022-05-07] MEDS: methylPREDNISolone SOD SUCCI 125 MG/2 ML VIAL IV SCH ×4 (05:13→23:30)
[2022-05-07 07:28] LABS: Glucose,Whole Blood 189 mg/dL (75-99)
[2022-05-07] MEDS: INSULIN ASPART (NovoLOG) 100 UNIT/ML VIAL SQ SCH ×4 (07:29→20:44)
[2022-05-07] MEDS: ACETAMINOPHEN TAB 325 MG TAB PO PRN (07:31)
[2022-05-07] MEDS: hydrALAZINE HCL 25 MG TAB PO SCH ×3 (07:32→20:44)
[2022-05-07] MEDS: GABAPENTIN 100 MG CAP PO SCH ×2 (07:32→20:43)
[2022-05-07] MEDS: METOPROLOL TARTRATE 12.5 MG TAB PO SCH ×2 (07:33→20:43)
[2022-05-07] MEDS: SERTRALINE 50 MG TAB PO SCH (07:33)
[2022-05-07] MEDS: ISOSORBIDE MONONITRATE ER 30 MG TAB.ER.24H PO SCH (07:33)
[2022-05-07] MEDS: ZINC SULFATE 220 MG CAP PO SCH (07:34)
[2022-05-07] MEDS: CHOLECALCIFEROL 125 MCG (5000 IU) TABLET PO SCH (07:34)
[2022-05-07] MEDS: ATORVASTATIN 20 MG TAB PO SCH (07:34)
[2022-05-07] MEDS: FINASTERIDE 5 MG TAB PO SCH (07:34)
[2022-05-07] MEDS: ERTAPENEM 1 GM in SODIUM CHLORIDE 0.9% 50 ML IVPB SCH (07:35)
[2022-05-07] MEDS: ASCORBIC ACID 500 MG TAB PO SCH (07:39)
[2022-05-07] MEDS: IPRATROPIUM-ALBUTEROL 3 ML NEB INHALATION SCH ×4 (08:16→20:28)
[2022-05-07] MEDS: SODIUM FERRIC GLUCONAT-SUCROSE 125 MG in SODIUM CHLORIDE 0.9% 100 ML IVPB SCH (09:06)
[2022-05-07 11:18] LABS: Glucose,Whole Blood 390 mg/dL (75-99)
--- NOTE | 2022-05-07 11:42 | P.PN ---
Subjective Patient is seen in follow-up for acute kidney injury. Renal function back to baseline. Suero catheter reinserted 05/03/2022 due to persistent retention. Nonoliguric. Oral intake fair. No vomiting or diarrhea. Develop shortness of breath last night and received a dose of IV Lasix. Vital signs are stable. General: Awake. No acute distress. HEENT: Head exam is unremarkable. LUNGS: Breath sounds decreased. HEART: Rate and Rhythm are regular. ABDOMEN: Soft, obese. EXTREMITITES: No edema. Objective - Vital Signs Vital signs: Vital Signs Temp 98.2 F 05/07/22 07:56 Pulse 64 05/07/22 08:41 Resp 18 05/07/22 07:56 BP 167/62 05/07/22 07:56 Pulse Ox 95 05/07/22 10:15 FiO2 Intake & Output 05/06/22 05/07/22 05/07/22 18:59 06:59 18:59 Intake Total 600 240 Output Total 1200 620 Balance 600 -1200 -380 Weight 98.43 kg Intake: Oral 600 240 Output: Urine 1200 620 Uretheral (Suero) 620 Other: Voiding Method Indwelling Catheter Indwelling Catheter Indwelling Catheter # Bowel Movements 2 - Labs CBC & Chem 7: 05/06/22 04:03 05/06/22 04:03 Labs: Abnormal Lab Results - Last 24 Hours (Table) 05/06/22 05/06/22 05/06/22 Range/Units 04:03 11:37 16:30 POC Glucose (mg/dL) 204 H 168 H (75-99) mg/dL Hemoglobin A1c 6.7 H (0.0-6.0) % 05/06/22 05/07/22 05/07/22 Range/Units 20:54 01:48 07:26 POC Glucose (mg/dL) 103 H 152 H 189 H (75-99) mg/dL Hemoglobin A1c (0.0-6.0) % 05/07/22 Range/Units 11:16 POC Glucose (mg/dL) 390 H (75-99) mg/dL Hemoglobin A1c (0.0-6.0) % Assessment and Plan Plan: Assessment: 1. Acute kidney injury secondary to obstructive uropathy. Improved. Creatinine 0.97 yesterday. 2. History of right nephrectomy. 3. Chronic kidney disease stage IIIA for baseline creatinine near 1.0. Etiology is solitary kidney. 4. Urinary retention. Suero catheter had to be reinserted 05/03/2022. On Flomax. Urology following. Plan for cystoscopy outpatient. 5. History of prostate cancer. 6. Diabetes mellitus. 7. E. coli UTI on antibiotics. 8. Anemia. Iron deficiency noted. 9. Chronic systolic CHF with ejection fraction of 45-50%. Plan: Add oral Lasix 20 mg once daily. Encouraged oral intake. Avoid nephrotoxins. Maintain IV iron. Continue to monitor renal function and urine output. Stable for discharge from nephrology standpoint. Follow up outpatient 1 week post discharge.
--- NOTE | 2022-05-07 11:50 | P.PN ---
Subjective HISTORY OF PRESENT ILLNESS: This is a 77-year-old gentleman with history of permanent pacemaker implantation, coronary artery disease with previous bypass operation done in 2018 with the CHAHAL graft to the LAD, vein graft to the OM branch and PDA who follows with Dr. Harper. Patient also has history of COPD and diabetes. This patient is admitted to the hospital with severe UTI and abdominal pain. Outpatient treatment with antibiotics was unsuccessful. Patient also found to have renal failure with creatinine of about 1.86. He was cautiously being hydrated and also had a Suero catheter. Last night patient blood pressure went up. Patient had a brief episode of chest discomfort and shortness of breath. Patient was given IV hydralazine to be used on when necessary basis. He was also put on Nitropaste 1 inch every 8 hours. Since then patient has been feeling well. His troponin was mildly elevated. His troponin was elevated in the past also. Currently seemed to be fairly comfortable. He does have some d ecreased breath sounds at bases. Is going to get a chest x-ray. His fluid management is done by Dr. López, auditing control clerk. We'll continue monitoring his cardiac enzymes. We will get an echocardiogram. His previous echo Cardigan showed normal LV function. Further examination depend upon clinical course 05/06/2022 Patient examined this morning at the bedside. Patient denies chest pain or pressure. Denies SOB. His IVF were discontinued this morning. Blood pressure 143/73. 05/07/2022 Patient examined this morning at the bedside. Patient denies chest pain or pressure. Denies SOB. Vital signs stable. PHYSICAL EXAM: VITAL SIGNS: Reviewed. GENERAL: Well-developed in no acute distress. NECK: Supple. No JVD or thyromegaly LUNGS: Respirations even and unlabored. Lungs essentially clear to auscultation bilaterally. HEART: Regular rate and rhythm. S1 and S2 heard. EXTREMITIES: Normal range of motion. No clubbing or cyanosis. Peripheral pulses intact. No lower extremity edema ASSESSMENT: Acute on chronic kidney disease Chest pain, ACS ruled out History of right nephrectomy Permanent pacemaker insertion Coronary artery disease with previous CABG Urinary retention PLAN: Continue current cardiac medications Patient is currently stable from a cardiac standpoint We will sign off. Please reconsult if needed. Nurse practitioner note has been reviewed by physician. Signing provider agrees with the documented findings, assessment, and plan of care. Objective - Vital Signs Vital signs: Vital Signs Temp 98.2 F 05/07/22 07:56 Pulse 64 05/07/22 08:41 Resp 18 05/07/22 07:56 BP 167/62 05/07/22 07:56 Pulse Ox 95 05/07/22 10:15 FiO2 Intake & Output 05/06/22 05/07/22 05/07/22 18:59 06:59 18:59 Intake Total 600 240 Output Total 1200 620 Balance 600 -1200 -380 Weight 98.43 kg Intake: Oral 600 240 Output: Urine 1200 620 Uretheral (Suero) 620 Other: Voiding Method Indwelling Catheter Indwelling Catheter Indwelling Catheter # Bowel Movements 2 - Labs CBC & Chem 7: 05/06/22 04:03 05/06/22 04:03 Labs: Abnormal Lab Results - Last 24 Hours (Table) 05/06/22 05/06/22 05/06/22 Range/Units 04:03 16:30 20:54 POC Glucose (mg/dL) 168 H 103 H (75-99) mg/dL Hemoglobin A1c 6.7 H (0.0-6.0) % 05/07/22 05/07/22 05/07/22 Range/Units 01:48 07:26 11:16 POC Glucose (mg/dL) 152 H 189 H 390 H (75-99) mg/dL Hemoglobin A1c (0.0-6.0) %
[2022-05-07] MEDS: FUROSEMIDE 20 MG TAB PO SCH (13:06)
[2022-05-07 17:08] LABS: Glucose,Whole Blood 350 mg/dL (75-99)
--- NOTE | 2022-05-07 18:43 | XR ---
EXAMINATION TYPE: XR chest 2V DATE OF EXAM: 05/07/2022 COMPARISON: 05/06/2022 HISTORY: 77 year-old male shortness of breath TECHNIQUE: AP and lateral views FINDINGS: Heart mildly enlarged. Rightward patient rotation IS a normal cardiac mediastinal contour. Left anter ior chest wall pacemaker generator with right atrial and ventricular leads. Median sternotomy plate a nd screw fixation. The superior most placed is deviated towards the right relative to the [place] infe rior plates. The appearance is unchanged compared back to at least 04/03/2021. Some degree of chronic s ternal dehiscence is difficult to exclude. Mild interstitial and vascular prominence. Small right ple ural effusion with right basilar opacity, similar to prior exam. IMPRESSION: Mild cardiomegaly with interstitial/vascular prominence. Correlate for ongoing mild CHF with pulmonar y vascular congestion. Continued small right pleural effusion with adjacent atelectasis and/or consol idation.
--- NOTE | 2022-05-07 20:08 | P.PN ---
Subjective Progress Note Date: 05/07/22 This is a pleasant 77-year-old male who was recently admitted with acute urinary tract infection with failed outpatient therapy and is being closely monitored. Patient has been seen and evaluated by urology requiring indwelling Gonzalez catheter and catheter has been removed and patient is due to void. Patient with no further hematuria noted and hemoglobin is stable at 9.3. Patient is afebrile and denies any worsening abdominal pain or urinary retention. Urine culture showing E. coli with ESBL and multi-resistance and have consulted infectious disease and appreciate input and recommendations. Antibiotics have been transition to Invanz per ID recommendations. Nephrology also following the alo ent for acute kidney injury that appears to be obstructive in nature and also a prerenal component. Patient is afebrile and denies any chest pain or shortness of breath. Repeat urinalysis with reflex to culture is ordered and pending. 05/03/2022 Patient is seen today and required indwelling catheter per urology and will continue and most likely discharge with gonzalez and close outpatient follow up. Awaiting repeat urine culture with ID following and patient is maintained on IV invanz and will continue for now. Patient vss and labs within normal limits. Nephrology following as well and kidney functions improving. creatinine is 1 today. Patient is afebrile and denies any chest pain or shortness of breath. Patient with some mild abdominal pain of palpation. Encouraged increase activity as tolerated. 05/06/2022 Patient was seen in follow-up this morning currently maintained on 2 L as [facility] reports he had a brief episode of chest pain with elevated blood pressure and some shortness of breath. Chest x-ray shows a right lower lobe infiltrate and small effusion increased from prior exam and correlate for mild central venous congestion. Will give a small dose of IV Lasix and wean FiO2 as tolerated. Patient is continued on IV Invanz and urine cultures are negative with ID following. Cardiology was consulted for concerns and the positive troponin that were mildly elevated in order to 2-D echo which shows a moderately increased septal wall thickness with left ventricular ejection fraction estimated at 45-50% with a noted suboptimal study. Patient will continue to follow with cardiology in the outpatient setting. Urology and nephrology also following patient did require indwelling Gonzalez catheter and will discharge on this and have outpatient urology follow-up. Patient is receiving IV iron for iron deficiency anemia. Patient is afebrile and denies any worsening shortness of breath or chest pain today. Will have physical therapy evaluate the patient although patient reports his plan is to go home with his son who is his caregiver. 05/07/2022 Patient is seen today and continues with some shortness of breath and will do home 02 evaluation as patient does not wear 02 in the outpatient setting. Worsening shortness of breath last night and was started on IV steroids. Nephrology following as well and being started on oral lasix. Patient denies chest pain. PT evaluated the patient recommending TRAVIS although patient refused and reports he will be going home with his son who is his caregiver. Will arrange home care. Patient is afebrile. Recommend continuing to monitor blood sugars closely. Review of systems: Constitutional: No reports of fatigue, fever, or chills Cardiovascular: No reports of chest pain or palpitations Respiratory: No reports of worsening shortness of breath GI: No reports of nausea, no reports of of vomiting : No reports of dysuria or retention, status post Gonzalez catheter replacement Neurovascular: reports of generalized weakness All medications have been reviewed Active Medications Acetaminophen (Acetaminophen Tab 325 Mg Tab) 650 mg PO Q6HR PRN PRN Reason: Mild Pain or Fever > 100.5 Last Admin: 05/07/22 07:31 Dose: 650 mg Acetaminophen (Acetaminophen Tab 325 Mg Tab) 650 mg PO [facility] Last Admin: 05/06/22 20:58 Dose: 650 mg Hydrocodone Bitart/Acetaminophen (Hydrocodone/Apap 5-325mg 1 Each Tab) 1 each PO Q6HR PRN PRN Reason: Pain Last Admin: 05/06/22 09:04 Dose: 1 each Albuterol Sulfate (Albuterol Nebulized 2.5 Mg/3 Ml) 2.5 mg INHALATION RT-Q6H PRN PRN Reason: Shortness Of Breath Last Admin: 05/06/22 20:36 Dose: 2.5 mg Albuterol/Ipratropium (Ipratropium-Albuterol 3 Ml Neb) 3 ml INHALATION RT-QID [facility] Last Admin: 05/07/22 16:09 Dose: 3 ml Albuterol/Ipratropium (Ipratropium-Albuterol 3 Ml Neb) 3 ml INHALATION RT-Q4H PRN PRN Reason: Shortness Of Breath Ascorbic Acid (Ascorbic Acid 500 Mg Tab) 500 mg PO DAILY [facility] Last Admin: 05/07/22 07:39 Dose: 500 mg Atorvastatin Calcium (Atorvastatin 20 Mg Tab) 20 mg PO DAILY [facility] Last Admin: 05/07/22 07:34 Dose: 20 mg Budesonide (Budesonide 1 Mg/2 Ml Nebu) 1 mg INHALATION RT-BID [facility] Last Admin: 05/07/22 08:16 Dose: 1 mg Calcium Carbonate/Glycine (Calcium Carbonate 500 Mg Chewable) 1,000 mg PO QID PRN PRN Reason: Heartburn Last Admin: 05/07/22 04:31 Dose: 1,000 mg Cholecalciferol (Cholecalciferol 125 Mcg (5000 Iu) Tablet) 125 mcg PO DAILY [facility] Last Admin: 05/07/22 07:34 Dose: 125 mcg Finasteride (Finasteride 5 Mg Tab) 5 mg PO DAILY [facility] Last Admin: 05/07/22 07:34 Dose: 5 mg Formoterol Fumarate (Formoterol Fumarate 20 Mcg/2 Ml Nebu) 20 mcg INHALATION RT-BID [facility] Last Admin: 05/07/22 08:16 Dose: 20 mcg Furosemide (Furosemide 20 Mg Tab) 20 mg PO DAILY [facility] Last Admin: 05/07/22 13:06 Dose: 20 mg Gabapentin (Gabapentin 100 Mg Cap) 100 mg PO BID [facility] Last Admin: 05/07/22 07:32 Dose: 100 mg Guaifenesin/Dextromethorphan (Guaifenesin-Dm 100-10mg/5ml 10 Ml Cup) 5 ml PO Q 6HR PRN PRN Reason: Cough Last Admin: 05/06/22 19:47 Dose: 5 ml Hydralazine HCl (Hydralazine Hcl 25 Mg Tab) 25 mg PO TID [facility] Last Admin: 05/07/22 17:19 Dose: 25 mg Hydromorphone HCl (Hydromorphone 0.5 Mg/0.5 Ml Syringe) 0.5 mg IVP Q3HR PRN PRN Reason: Pain Last Admin: 04/29/22 20:18 Dose: 0.5 mg Ertapenem 1 gm/ Sodium (Chloride) 50 mls @ 100 mls/hr IVPB DAILY [facility]; Protocol Last Admin: 05/07/22 07:35 Dose: 100 mls/hr Ferric Sodium Gluconate 125 mg (/ Sodium Chloride) 110 mls @ 100 mls/hr IVPB DAILY [facility] Stop: 05/08/22 11:01 Last Admin: 05/07/22 09:06 Dose: 100 mls/hr Insulin Aspart (Insulin Aspart (Novolog) 100 Unit/Ml Vial) 0 unit SQ [facility]; Protocol Last Admin: 05/07/22 17:19 Dose: 6 unit Insulin Detemir (Insulin Detemir (Levemir) 100 Unit/Ml Syr) 30 unit SQ [facility] Last Admin: 05/06/22 20:59 Dose: 30 unit Isosorbide Mononitrate (Isosorbide Mononitrate Er 30 Mg Tab.Er.24h) 30 mg PO DAILY [facility] Last Admin: 05/07/22 07:33 Dose: 30 mg Methylprednisolone Sodium Succinate (Methylprednisolone Sod Succi 125 Mg/2 Ml Vial) 60 mg IV Q6HR [facility] Last Admin: 05/07/22 17:20 Dose: 60 mg Metoprolol Tartrate (Metoprolol Tartrate 12.5 Mg Tab) 12.5 mg PO BID [facility] Last Admin: 05/07/22 07:33 Dose: 12.5 mg Naloxone HCl (Naloxone 0.4 Mg/Ml 1 Ml Vial) 0.2 mg IV Q2M PRN PRN Reason: Opioid Reversal Sertraline HCl (Sertraline 50 Mg Tab) 50 mg PO DAILY [facility] Last Admin: 05/07/22 07:33 Dose: 50 mg Tamsulosin HCl (Tamsulosin 0.4 Mg Cap.Er.24h) 0.4 mg PO [facility] Last Admin: 05/06/22 20:58 Dose: 0.4 mg Zinc Sulfate (Zinc Sulfate 220 Mg Cap) 220 mg PO DAILY [facility] Last Admin: 05/07/22 07:34 Dose: 220 mg PHYSICAL EXAMINATION: GENERAL: The patient is alert and oriented x4, Well developed, well nourished. HEENT: Pupils are round and equally reacting to light. EOMI. no scleral icterus. No conjunctival pallor. Normocephalic, atraumatic. No pharyngeal erythema. No thyromegaly. CARDIOVASCULAR: S1 and S2 muffled PULMONARY: diminished breath sounds bilateral with some scattered rhonchi noted. ABDOMEN: soft. Non-tender on exam. obese. non-distended, normoactive bowel sounds. No palpable organomegaly. MUSCULOSKELETAL: No joint swelling or deformity. EXTREMITIES: No cyanosis, clubbing, or pedal edema. NEUROLOGICAL: Gross neurological examination did not reveal any focal deficits. diffuse weakness SKIN: No rashes. Assessment: Acute urinary tract infection with failure of outpatient treatment, present on admission Hematuria, resolved Chest pain ruled out ACS Severe groin pain and urinary retention with failure of outpatient treatment History of prostate cancer Chronic renal failure Coronary artery disease with previous CABG Permanent pacemaker chronic obstructive pulmonary disease diabetes mellitus type 2 GI prophylaxis DVT prophylaxis Full code Plan: Recommend to continue with current medications and management with urology and nephrology following. Infectious disease following for ESBL in the urine with E. coli and is maintained on IV Invanz. Patient has had failed outpatient treatment and also Gonzalez catheter inserted again for continued retention. Recommend to continue gonzalez and will have patient follow-up in the outpatient setting with urology . Repeat urine is negative and patient will continue IV Invanz for now and discontinue antibiotics on discharge. IV iron ordered. Patient being started on low dose oral lasix. Will repeat am labs. Patient is to follow-up with nephrology outpatient as well. Patient is to follow-up with urology in the outpatient setting as discussed. physical therapy evaluated the patient recommending TRAVIS and patient is refusing rehab and will be going home with his son who is his caregiver. Due to multiple complex medical issues prognosis is guarded. possible discharge in 24 hours. The impression and plan of care has been dictated by Nancy De Los Santos, nurse practitioner as directed. Dr. Mayank MD I have performed a history and examination and MDM of this patient, discussed the same with the dictator, and agree with the dictator's assessment and plan as written ,documented as a scribe. Based on total visit time, I have performed more than 50% of the visit. Any additional findings or plans will be noted. Objective - Vital Signs Vital signs: Vital Signs Temp 98.2 F 05/07/22 07:56 Pulse 64 05/07/22 08:41 Resp 18 05/07/22 07:56 BP 167/62 05/07/22 07:56 Pulse Ox 95 05/07/22 07:56 FiO2 Intake & Output 05/06/22 05/07/22 05/07/22 18:59 06:59 18:59 Intake Total 600 Output Total 1200 Balance 600 -1200 Weight 98.43 kg Intake: Oral 600 Output: Urine 1200 Other: Voiding Method Indwelling Catheter Indwelling Catheter # Bowel Movements 2 - Labs CBC & Chem 7: 05/06/22 04:03 05/06/22 04:03 Labs: Abnormal Lab Results - Last 24 Hours (Table) 05/06/22 05/06/22 05/06/22 Range/Units 04:03 11:37 16:30 POC Glucose (mg/dL) 204 H 168 H (75-99) mg/dL Hemoglobin A1c 6.7 H (0.0-6.0) % 05/06/22 05/07/22 05/07/22 Range/Units 20:54 01:48 07:26 POC Glucose (mg/dL) 103 H 152 H 189 H (75-99) mg/dL Hemoglobin A1c (0.0-6.0) %
[2022-05-07 20:34] LABS: Glucose,Whole Blood 393 mg/dL (75-99)
[2022-05-07] MEDS: ACETAMINOPHEN TAB 325 MG TAB PO SCH (20:43)
[2022-05-07] MEDS: INSULIN DETEMIR (LEVEMIR) 100 UNIT/ML SYR SQ SCH (20:44)
[2022-05-07] MEDS: TAMSULOSIN 0.4 MG CAP.ER.24H PO SCH (20:44)
[2022-05-07] MEDS: ALBUTEROL NEBULIZED 2.5 MG/3 ML INHALATION PRN (22:36)
[2022-05-08 04:36] LABS: African American GFR (CKD) 49 (>60 ml/min/1.73 sqM); Anion Gap 11 mmol/L; Blood Urea Nitrogen 53 mg/dL (9-20); Calcium 9.3 mg/dL (8.4-10.2); Carbon Dioxide 25 mmol/L (22-30); Chloride 99 mmol/L (98-107); Glucose 182 mg/dL (74-99); Non-African American GFR(CKD) 42 (>60 ml/min/1.73 sqM); Sodium 135 mmol/L (137-145)
[2022-05-08] MEDS: guaiFENesin-DM 100-10MG/5ML 10 ML CUP PO PRN ×2 (05:26→23:11)
[2022-05-08] MEDS: methylPREDNISolone SOD SUCCI 125 MG/2 ML VIAL IV SCH ×2 (05:26→11:29)
[2022-05-08 07:18] LABS: Glucose,Whole Blood 179 mg/dL (75-99)
--- NOTE | 2022-05-08 07:48 | P.PN ---
Subjective Progress Note Date: 05/06/22 Principal diagnosis: ESBL E. coli urinary tract infection Patient is a 77-year-old male with multiple comorbidities and has been diagnosed with ESBL E. coli urinary tract infection. On today's evaluation of the 05/06/2022, the patient remains to be afebrile, the patient is breathing comfortably on nasal cannula oxygen, the patient denies chest pain shortness of breath or cough no abdominal pain and no further hematuria or urinary symptoms Objective - Vital Signs Vital signs: Vital Signs Temp 97.4 F L 05/06/22 08:49 Pulse 85 05/06/22 11:17 Resp 16 05/06/22 11:01 BP 153/74 05/06/22 08:49 Pulse Ox 98 05/06/22 08:49 FiO2 Intake & Output 05/05/22 05/06/22 05/06/22 18:59 06:59 18:59 Intake Total 420 Output Total 400 650 Balance -400 -650 420 Intake: Oral 420 Output: Urine 400 650 Other: Voiding Method Indwelling Catheter Indwelling Catheter Indwelling Catheter # Bowel Movements 2 - Exam GENERAL DESCRIPTION: An elderly male lying in bed in no distress RESPIRATORY SYSTEM: Unlabored breathing , decreased breath sounds at bases HEART: S1 S2 regular rate and rhythm , ABDOMEN: Soft , no tenderness EXTREMITIES: No edema feet - Labs CBC & Chem 7: 05/06/22 04:03 05/08/22 03:44 Labs: Abnormal Lab Results - Last 24 Hours (Table) 05/05/22 05/05/22 05/05/22 Range/Units 14:29 16:48 20:24 RBC (4.40-5.60) X 10*6/uL Hgb (13.0-17.0) g/dL Hct (39.6-50.0) % MCV (80.0-97.0) fL MCHC (32.0-37.0) g/dL RDW (11.5-14.5) % Immature Gran # (0.00-0.04) X 10*3/uL Lymphocytes # (0.90-5.00) X 10*3/uL Glucose (74-99) mg/dL POC Glucose (mg/dL) 171 H 149 H (75-99) mg/dL Troponin I 0.073 H* (0.000-0.034) ng/mL Total Protein (6.3-8.2) g/dL Albumin (3.5-5.0) g/dL 05/06/22 05/06/22 05/06/22 Range/Units 04:03 04:03 06:55 RBC 2.93 L (4.40-5.60) X 10*6/uL Hgb 8.4 L (13.0-17.0) g/dL Hct 28.9 L (39.6-50.0) % MCV 98.6 H (80.0-97.0) fL MCHC 29.1 L (32.0-37.0) g/dL RDW 15.2 H (11.5-14.5) % Immature Gran # 0.08 H (0.00-0.04) X 10*3/uL Lymphocytes # 0.76 L (0.90-5.00) X 10*3/uL Glucose 46 L* (74-99) mg/dL POC Glucose (mg/dL) 68 L (75-99) mg/dL Troponin I (0.000-0.034) ng/mL Total Protein 5.6 L (6.3-8.2) g/dL Albumin 3.1 L (3.5-5.0) g/dL 05/06/22 05/06/22 Range/Units 07:10 11:37 RBC (4.40-5.60) X 10*6/uL Hgb (13.0-17.0) g/dL Hct (39.6-50.0) % MCV (80.0-97.0) fL MCHC (32.0-37.0) g/dL RDW (11.5-14.5) % Immature Gran # (0.00-0.04) X 10*3/uL Lymphocytes # (0.90-5.00) X 10*3/uL Glucose (74-99) mg/dL POC Glucose (mg/dL) 70 L 204 H (75-99) mg/dL Troponin I (0.000-0.034) ng/mL Total Protein (6.3-8.2) g/dL Albumin (3.5-5.0) g/dL Microbiology - Last 24 Hours (Table) 04/29/22 10:38 Blood Culture - Final Blood No Growth after 144 hours 04/29/22 10:38 Blood Culture - Final Blood No Growth after 144 hours Assessment and Plan (1) UTI (urinary tract infection) Current Visit: Yes Status: Acute Code(s): N39.0 - URINARY TRACT INFECTION, SITE NOT SPECIFIED SNOMED Code(s): 82063473 Plan: 1patient presented to hospital with hematuria suprapubic pain in this patient has been diagnosed with a ESBL E. coli urine tract infection on 04/23/2022 which is failed to respond to outpatient Bactrim and Macrobid therapy. 2patient repeat urine is positive however cultures has been negative 3patient slowly clinically improving and will to continue with Invanz 1 g daily while inpatient Time with Patient: Less than 30
--- NOTE | 2022-05-08 07:49 | P.PN ---
Subjective Progress Note Date: 05/07/22 Principal diagnosis: ESBL E. coli urinary tract infection Patient is a 77-year-old male with multiple comorbidities and has been diagnosed with ESBL E. coli urinary tract infection. On today's evaluation of the 05/07/2022, the patient denies any fever or chills, the patient is breathing comfortably on 3 L nasal cannula oxygen, the patient denies chest pain shortness of breath or cough , the patient denies abdominal pain and no diarrhea Objective - Vital Signs Vital signs: Vital Signs Temp 98.2 F 05/07/22 07:56 Pulse 64 05/07/22 12:41 Resp 18 05/07/22 07:56 BP 167/62 05/07/22 07:56 Pulse Ox 95 05/07/22 10:15 FiO2 Intake & Output 05/06/22 05/07/22 05/07/22 18:59 06:59 18:59 Intake Total 600 240 Output Total 1200 620 Balance 600 -1200 -380 Weight 98.43 kg Intake: Oral 600 240 Output: Urine 1200 620 Uretheral (Suero) 620 Other: Voiding Method Indwelling Catheter Indwelling Catheter Indwelling Catheter # Bowel Movements 2 - Exam GENERAL DESCRIPTION: An elderly male lying in bed in no distress RESPIRATORY SYSTEM: Unlabored breathing , decreased breath sounds at bases HEART: S1 S2 regular rate and rhythm , ABDOMEN: Soft , no tenderness EXTREMITIES: No edema feet - Labs CBC & Chem 7: 05/06/22 04:03 05/08/22 03:44 Labs: Abnormal Lab Results - Last 24 Hours (Table) 05/06/22 05/06/22 05/06/22 Range/Units 04:03 16:30 20:54 POC Glucose (mg/dL) 168 H 103 H (75-99) mg/dL Hemoglobin A1c 6.7 H (0.0-6.0) % 05/07/22 05/07/22 05/07/22 Range/Units 01:48 07:26 11:16 POC Glucose (mg/dL) 152 H 189 H 390 H (75-99) mg/dL Hemoglobin A1c (0.0-6.0) % Assessment and Plan (1) UTI (urinary tract infection) Current Visit: Yes Status: Acute Code(s): N39.0 - URINARY TRACT INFECTION, SITE NOT SPECIFIED SNOMED Code(s): 83829867 Plan: 1patient presented to hospital with hematuria suprapubic pain in this patient has been diagnosed with a ESBL E. coli urine tract infection on 04/23/2022 which is failed to respond to outpatient Bactrim and Macrobid therapy. 2patient repeat urine is positive however cultures has been negative 3patient has shown improvement as for his his UTI is concerned, patient to continue with Invanz 1 g daily while inpatient Time with Patient: Less than 30
[2022-05-08] MEDS: BUDESONIDE 1 MG/2 ML NEBU INHALATION SCH ×2 (08:18→19:08)
[2022-05-08] MEDS: IPRATROPIUM-ALBUTEROL 3 ML NEB INHALATION SCH ×4 (08:18→19:09)
[2022-05-08] MEDS: FORMOTEROL FUMARATE 20 MCG/2 ML NEBU INHALATION SCH ×2 (08:18→19:08)
[2022-05-08] MEDS: ERTAPENEM 1 GM in SODIUM CHLORIDE 0.9% 50 ML IVPB SCH (09:13)
[2022-05-08] MEDS: CHOLECALCIFEROL 125 MCG (5000 IU) TABLET PO SCH (09:14)
[2022-05-08] MEDS: ISOSORBIDE MONONITRATE ER 30 MG TAB.ER.24H PO SCH (09:14)
[2022-05-08] MEDS: INSULIN ASPART (NovoLOG) 100 UNIT/ML VIAL SQ SCH ×4 (09:14→20:35)
[2022-05-08] MEDS: SERTRALINE 50 MG TAB PO SCH (09:14)
[2022-05-08] MEDS: ASCORBIC ACID 500 MG TAB PO SCH (09:14)
[2022-05-08] MEDS: ZINC SULFATE 220 MG CAP PO SCH (09:14)
[2022-05-08] MEDS: FUROSEMIDE 20 MG TAB PO SCH (09:14)
[2022-05-08] MEDS: GABAPENTIN 100 MG CAP PO SCH ×2 (09:15→20:37)
[2022-05-08] MEDS: hydrALAZINE HCL 25 MG TAB PO SCH ×3 (09:15→20:37)
[2022-05-08] MEDS: ATORVASTATIN 20 MG TAB PO SCH (09:15)
[2022-05-08] MEDS: METOPROLOL TARTRATE 12.5 MG TAB PO SCH ×2 (09:15→20:37)
[2022-05-08] MEDS: FINASTERIDE 5 MG TAB PO SCH (09:15)
[2022-05-08] MEDS: SODIUM FERRIC GLUCONAT-SUCROSE 125 MG in SODIUM CHLORIDE 0.9% 100 ML IVPB SCH (10:10)
--- NOTE | 2022-05-08 10:52 | P.PN ---
Subjective Patient is seen in follow-up for acute kidney injury. Renal function worse today from diuresis. Suero catheter reinserted 05/03/2022 due to persistent retention. Nonoliguric. Oral intake fair. No vomiting or diarrhea. No chest pain or shortness of breath. On 3 L nasal cannula. Vital signs are stable. General: Awake. No acute distress. HEENT: Head exam is unremarkable. On nasal cannula. LUNGS: Breath sounds decreased. HEART: Rate and Rhythm are regular. ABDOMEN: Soft, obese. EXTREMITITES: No edema. Objective - Vital Signs Vital signs: Vital Signs Temp 97.4 F L 05/08/22 07:52 Pulse 82 05/08/22 08:37 Resp 24 05/08/22 09:56 BP 163/66 05/08/22 07:52 Pulse Ox 97 05/08/22 07:52 FiO2 Intake & Output 05/07/22 05/08/22 05/08/22 18:59 06:59 18:59 Intake Total 480 180 Output Total 1070 550 Balance -590 -550 180 Intake: Oral 480 180 Output: Urine 1070 550 Uretheral (Su[place]) 620 Other: Voiding Method Indwelling Catheter Indwelling Catheter # Bowel Movements 1 - Labs CBC & Chem 7: 05/06/22 04:03 05/08/22 03:44 Labs: Abnormal Lab Results - Last 24 Hours (Table) 05/07/22 05/07/22 05/07/22 Range/Units 11:16 17:06 20:32 Sodium (137-145) mmol/L BUN (9-20) mg/dL Creatinine (0.66-1.25) mg/dL Glucose (74-99) mg/dL POC Glucose (mg/dL) 390 H 350 H 393 H (75-99) mg/dL 05/08/22 05/08/22 Range/Units 03:44 07:16 Sodium 135 L (137-145) mmol/L BUN 53 H (9-20) mg/dL Creatinine 1.56 H (0.66-1.25) mg/dL Glucose 182 H (74-99) mg/dL POC Glucose (mg/dL) 179 H (75-99) mg/dL Assessment and Plan Plan: Assessment: 1. Acute kidney injury secondary to obstructive uropathy. Also component of diuresis. Creatinine 1.56 today. 2. History of right nephrectomy. 3. Chronic kidney disease stage IIIA for baseline creatinine near 1.0. Etiology is solitary kidney. 4. Urinary retention. Suero catheter had to be reinserted 05/03/2022. On Flomax. Urology following. Plan for cystoscopy outpatient. 5. History of prostate cancer. 6. Diabetes mellitus. 7. E. coli UTI on antibiotics. 8. Anemia. Iron deficiency noted. 9. Chronic systolic CHF with ejection fraction of 45-50%. Plan: Maintain oral Lasix. Encouraged oral intake. Avoid nephrotoxins. Maintain IV iron. Continue to monitor renal function and urine output. Repeat BMP and magnesium level to 3 days postdischarge. Follow up outpatient in 1 week. He will also follow-up with urology outpatient.
[2022-05-08 11:30] LABS: Glucose,Whole Blood 252 mg/dL (75-99)
[2022-05-08] MEDS ORDERED: FUROSEMIDE 10 MG/ML 4 ML VIAL IV STA (14:10)
--- NOTE | 2022-05-08 14:15 | P.PN ---
Subjective Progress Note Date: 05/08/22 This is a pleasant 77-year-old male who was recently admitted with acute urinary tract infection with failed outpatient therapy and is being closely monitored. Patient has been seen and evaluated by urology requiring indwelling Gonzalez catheter and catheter has been removed and patient is due to void. Patient with no further hematuria noted and hemoglobin is stable at 9.3. Patient is afebrile and denies any worsening abdominal pain or urinary retention. Urine culture showing E. coli with ESBL and multi-resistance and have consulted infectious disease and appreciate input and recommendations. Antibiotics have been transition to Invanz per ID recommendations. Nephrology also following the alo ent for acute kidney injury that appears to be obstructive in nature and also a prerenal component. Patient is afebrile and denies any chest pain or shortness of breath. Repeat urinalysis with reflex to culture is ordered and pending. 05/03/2022 Patient is seen today and required indwelling catheter per urology and will continue and most likely discharge with gonzalez and close outpatient follow up. Awaiting repeat urine culture with ID following and patient is maintained on IV invanz and will continue for now. Patient vss and labs within normal limits. Nephrology following as well and kidney functions improving. creatinine is 1 today. Patient is afebrile and denies any chest pain or shortness of breath. Patient with some mild abdominal pain of palpation. Encouraged increase activity as tolerated. 05/06/2022 Patient was seen in follow-up this morning currently maintained on 2 L as [facility] staff reports he had a brief episode of chest pain with elevated blood pressure and some shortness of breath. Chest x-ray shows a right lower lobe infiltrate and small effusion increased from prior exam and correlate for mild central venous congestion. Will give a small dose of IV Lasix and wean FiO2 as tolerated. Patient is continued on IV Invanz and urine cultures are negative with ID following. Cardiology was consulted for concerns and the positive troponin that were mildly elevated in order to 2-D echo which shows a moderately increased septal wall thickness with left ventricular ejection fraction estimated at 45-50% with a noted suboptimal study. Patient will continue to follow with cardiology in the outpatient setting. Urology and nephrology also following patient did require indwelling Gonzalez catheter and will discharge on this and have outpatient urology follow-up. Patient is receiving IV iron for iron deficiency anemia. Patient is afebrile and denies any worsening shortness of breath or chest pain today. Will have physical therapy evaluate the patient although patient reports his plan is to go home with his son who is his caregiver. 05/07/2022 Patient is seen today and continues with some shortness of breath and will do home 02 evaluation as patient does not wear 02 in the outpatient setting. Worsening shortness of breath last night and was started on IV steroids. Nephrology following as well and being started on oral lasix. Patient denies chest pain. PT evaluated the patient recommending TRAVIS although patient refused and reports he will be going home with his son who is his caregiver. Will arrange home care. Patient is afebrile. Recommend continuing to monitor blood sugars closely. 05/08/2022 Patient is seen this morning continues on 3 L via nasal cannula and oxygen saturation is 97%. Attempted home O2 eval and oxygen saturation on lowest reading was 92% on room air and will not qualify for home O2. Patient continues with indwelling Gonzalez catheter and will continue in the outpatient setting with outpatient urology follow-up. Patient was recently started on oral Lasix low- dose and will continue. Creatinine elevated at 1.56. Patient is afebrile. Will order BNP to a.m. labs. Patient would likely benefit from IV Lasix although kidney functions are worsening. Patient currently maintained on Lasix 20 mg daily by mouth. Nephrology is following. Patient denies worsening shortness of breath or chest pains. Patient continues with weakness requiring assistance although continues to refuse to go to rehab. Review of systems: Constitutional: No reports of fatigue, fever, or chills Cardiovascular: No reports of chest pain or palpitations Respiratory: No reports of worsening shortness of breath GI: No reports of nausea, no reports of of vomiting : No reports of dysuria or retention, status post Gonzalez catheter replacement Neurovascular: reports of generalized weakness All medications have been reviewed Active Medications Acetaminophen (Acetaminophen Tab 325 Mg Tab) 650 mg PO Q6HR PRN PRN Reason: Mild Pain or Fever > 100.5 Last Admin: 05/07/22 07:31 Dose: 650 mg Acetaminophen (Acetaminophen Tab 325 Mg Tab) 650 mg PO HS ALEXEY Last Admin: 05/07/22 20:43 Dose: 650 mg Hydrocodone Bitart/Acetaminophen (Hydrocodone/Apap 5-325mg 1 Each Tab) 1 each PO Q6HR PRN PRN Reason: Pain Last Admin: 05/06/22 09:04 Dose: 1 each Albuterol Sulfate (Albuterol Nebulized 2.5 Mg/3 Ml) 2.5 mg INHALATION RT-Q6H PRN PRN Reason: Shortness Of Breath Last Admin: 05/07/22 22:36 Dose: 2.5 mg Albuterol/Ipratropium (Ipratropium-Albuterol 3 Ml Neb) 3 ml INHALATION RT-QID [facility] Last Admin: 05/08/22 08:18 Dose: 3 ml Albuterol/Ipratropium (Ipratropium-Albuterol 3 Ml Neb) 3 ml INHALATION RT-Q4H P RN PRN Reason: Shortness Of Breath Ascorbic Acid (Ascorbic Acid 500 Mg Tab) 500 mg PO DAILY [facility] Last Admin: 05/08/22 09:14 Dose: 500 mg Atorvastatin Calcium (Atorvastatin 20 Mg Tab) 20 mg PO DAILY [facility] Last Admin: 05/08/22 09:15 Dose: 20 mg Budesonide (Budesonide 1 Mg/2 Ml Nebu) 1 mg INHALATION RT-BID [facility] Last Admin: 05/08/22 08:18 Dose: 1 mg Calcium Carbonate/Glycine (Calcium Carbonate 500 Mg Chewable) 1,000 mg PO QID PRN PRN Reason: Heartburn Last Admin: 05/07/22 23:30 Dose: 1,000 mg Cholecalciferol (Cholecalciferol 125 Mcg (5000 Iu) Tablet) 125 mcg PO DAILY [facility] Last Admin: 05/08/22 09:14 Dose: 125 mcg Finasteride (Finasteride 5 Mg Tab) 5 mg PO DAILY [facility] Last Admin: 05/08/22 09:15 Dose: 5 mg Formoterol Fumarate (Formoterol Fumarate 20 Mcg/2 Ml Nebu) 20 mcg INHALATION RT-BID [facility] Last Admin: 05/08/22 08:18 Dose: 20 mcg Furosemide (Furosemide 20 Mg Tab) 20 mg PO DAILY [facility] Last Admin: 05/08/22 09:14 Dose: 20 mg Gabapentin (Gabapentin 100 Mg Cap) 100 mg PO BID [facility] Last Admin: 05/08/22 09:15 Dose: 100 mg Guaifenesin/Dextromethorphan (Guaifenesin-Dm 100-10mg/5ml 10 Ml Cup) 5 ml PO Q6HR PRN PRN Reason: Cough Last Admin: 05/08/22 05:26 Dose: 5 ml Hydralazine HCl (Hydralazine Hcl 25 Mg Tab) 25 mg PO TID [facility] Last Admin: 05/08/22 09:15 Dose: 25 mg Hydromorphone HCl (Hydromorphone 0.5 Mg/0.5 Ml Syringe) 0.5 mg IVP Q3HR PRN PRN Reason: Pain Last Admin: 04/29/22 20:18 Dose: 0.5 mg Ertapenem 1 gm/ Sodium (Chloride) 50 mls @ 100 mls/hr IVPB DAILY [facility]; Protocol Last Admin: 05/08/22 09:13 Dose: 100 mls/hr Ferric Sodium Gluconate 125 mg (/ Sodium Chloride) 110 mls @ 100 mls/hr IVPB DAILY [facility] Stop: 05/08/22 11:01 Last Admin: 05/08/22 10:10 Dose: 100 mls/hr Insulin Aspart (Insulin Aspart (Novolog) 100 Unit/Ml Vial) 0 unit SQ ACHS [facility]; Protocol Last Admin: 05/08/22 09:14 Dose: 2 unit Insulin Detemir (Insulin Detemir (Levemir) 100 Unit/Ml Syr) 30 unit SQ [facility] Last Admin: 05/07/22 20:44 Dose: 30 unit Isosorbide Mononitrate (Isosorbide Mononitrate Er 30 Mg Tab.Er.24h) 30 mg PO DAILY [facility] Last Admin: 05/08/22 09:14 Dose: 30 mg Methylprednisolone Sodium Succinate (Methylprednisolone Sod Succi 125 Mg/2 Ml Vial) 60 mg IV Q6HR [facility] Last Admin: 05/08/22 05:26 Dose: 60 mg Metoprolol Tartrate (Metoprolol Tartrate 12.5 Mg Tab) 12.5 mg PO BID [facility] Last Admin: 05/08/22 09:15 Dose: 12.5 mg Naloxone HCl (Naloxone 0.4 Mg/Ml 1 Ml Vial) 0.2 mg IV Q2M PRN PRN Reason: Opioid Reversal Sertraline HCl (Sertraline 50 Mg Tab) 50 mg PO DAILY [facility] Last Admin: 05/08/22 09:14 Dose: 50 mg Tamsulosin HCl (Tamsulosin 0.4 Mg Cap.Er.24h) 0.4 mg PO [facility] Last Admin: 06/07/22 20:44 Dose: 0.4 mg Zinc Sulfate (Zinc Sulfate 220 Mg Cap) 220 mg PO DAILY [facility] Last Admin: 05/08/22 09:14 Dose: 220 mg PHYSICAL EXAMINATION: GENERAL: The patient is alert and oriented x4, Well developed, well nourished. HEENT: Pupils are round and equally reacting to light. EOMI. no scleral icterus. No conjunctival pallor. Normocephalic, atraumatic. No pharyngeal erythema. No thyromegaly. CARDIOVASCULAR: S1 and S2 muffled PULMONARY: diminished breath sounds bilateral with some scattered rhonchi noted. ABDOMEN: soft. Non-tender on exam. obese. non-distended, normoactive bowel sounds. No palpable organomegaly. MUSCULOSKELETAL: No joint swelling or deformity. EXTREMITIES: No cyanosis, clubbing, or pedal edema. NEUROLOGICAL: Gross neurological examination did not reveal any focal deficits. diffuse weakness SKIN: No rashes. Assessment: Acute urinary tract infection with failure of outpatient treatment, present on admission Hematuria, resolved Chest pain ruled out ACS Elevated BNP Severe groin pain and urinary retention with failure of outpatient treatment History of prostate cancer Chronic renal failure Coronary artery disease with previous CABG Permanent pacemaker chronic obstructive pulmonary disease diabetes mellitus type 2 GI prophylaxis DVT prophylaxis Full code Plan: Recommend to continue with current medications and management with urology and nephrology following. Infectious disease following for ESBL in the urine with E. coli and is maintained on IV Invanz. Patient has had failed outpatient treatment and also Gonzalez catheter inserted again for continued retention. Recommend to continue gonzalez and will have patient follow-up in the outpatient setting with urology . Repeat urine is negative and patient will continue IV Invanz for now and discontinue antibiotics on discharge. IV iron ordered. Patient being started on low dose oral lasix. Kidney function is worsening and creatinine is currently 1.5 and BNP was ordered which was elevated at 4750 and will give a dose of IV Lasix. Will repeat am labs. Patient is to follow-up with nephrology outpatient as well. Patient is to follow-up with urology in the outpatient setting as discussed. physical therapy evaluated the patient recommending TRAVIS and patient is refusing rehab and will be going home with his son who is his caregiver. Due to multiple complex medical issues prognosis is guarded. Encouraged increased activity as tolerated and getting out of the bed more often. The impression and plan of care has been dictated by Nancy Magali, nurse practitioner as directed. Dr. Mayank MD I have performed a history and examination and MDM of this patient, discussed the same with the dictator, and agree with the dictator's assessment and plan as written ,documented as a scribe. Based on total visit time, I have performed more than 50% of the visit. Any additional findings or plans will be noted. Objective - Vital Signs Vital signs: Vital Signs Temp 98.5 F 05/08/22 02:00 Pulse 80 05/08/22 08:18 Resp 24 05/08/22 02:00 BP 133/70 05/08/22 02:00 Pulse Ox 92 L 05/08/22 02:00 FiO2 Intake & Output 05/07/22 05/08/22 05/08/22 18:59 06:59 18:59 Intake Total 480 Output Total 1070 550 Balance -590 -550 Intake: Oral 480 Output: Urine 1070 550 Uretheral (Gonzalez) 620 Other: Voiding Method Indwelling Catheter Indwelling Catheter # Bowel Movements 1 - Labs CBC & Chem 7: 05/06/22 04:03 05/08/22 03:44 Labs: Abnormal Lab Results - Last 24 Hours (Table) 05/07/22 05/07/22 05/07/22 Range/Units 11:16 17:06 20:32 Sodium (137-145) mmol/L BUN (9-20) mg/dL Creatinine (0.66-1.25) mg/dL Glucose (74-99) mg/dL POC Glucose (mg/dL) 390 H 350 H 393 H (75-99) mg/dL 05/08/22 05/08/22 Range/Units 03:44 07:16 Sodium 135 L (137-145) mmol/L BUN 53 H (9-20) mg/dL Creatinine 1.56 H (0.66-1.25) mg/dL Glucose 182 H (74-99) mg/dL POC Glucose (mg/dL) 179 H (75-99) mg/dL
[2022-05-08 16:27] LABS: Glucose,Whole Blood 308 mg/dL (75-99)
[2022-05-08 20:34] LABS: Glucose,Whole Blood 304 mg/dL (75-99)
[2022-05-08] MEDS: INSULIN DETEMIR (LEVEMIR) 100 UNIT/ML SYR SQ SCH (20:36)
[2022-05-08] MEDS: ACETAMINOPHEN TAB 325 MG TAB PO SCH (20:37)
[2022-05-08] MEDS: TAMSULOSIN 0.4 MG CAP.ER.24H PO SCH (20:37)
[2022-05-08] MEDS: ALBUTEROL NEBULIZED 2.5 MG/3 ML INHALATION PRN (23:38)
[2022-05-09 06:50] LABS: African American GFR (CKD) 50 (>60 ml/min/1.73 sqM); Anion Gap 9 mmol/L; Blood Urea Nitrogen 70 mg/dL (9-20); Calcium 9.1 mg/dL (8.4-10.2); Carbon Dioxide 29 mmol/L (22-30); Chloride 101 mmol/L (98-107); Glucose 99 mg/dL (74-99); Magnesium 2.4 mg/dL (1.6-2.3); Non-African American GFR(CKD) 43 (>60 ml/min/1.73 sqM); Potassium 4.9 mmol/L (3.5-5.1); Sodium 139 mmol/L (137-145)
[2022-05-09 07:11] LABS: Glucose,Whole Blood 106 mg/dL (75-99)
[2022-05-09] MEDS: INSULIN ASPART (NovoLOG) 100 UNIT/ML VIAL SQ SCH ×4 (07:37→21:12)
[2022-05-09] MEDS ORDERED: methylPREDNISolone SOD SUCCI 40 MG/ML 1 ML VIAL IV STA (07:55)
[2022-05-09] MEDS ORDERED: FUROSEMIDE 10 MG/ML 4 ML VIAL IV STA (07:56)
[2022-05-09] MEDS: IPRATROPIUM-ALBUTEROL 3 ML NEB INHALATION SCH ×5 (08:47→21:32)
[2022-05-09] MEDS: FORMOTEROL FUMARATE 20 MCG/2 ML NEBU INHALATION SCH ×2 (08:47→21:32)
[2022-05-09] MEDS: BUDESONIDE 1 MG/2 ML NEBU INHALATION SCH ×2 (08:47→21:33)
--- NOTE | 2022-05-09 09:10 | XR ---
EXAMINATION TYPE: XR chest 1V portable DATE OF EXAM: 05/09/2022 COMPARISON: 05/07/2022 INDICATION: Short of breath TECHNIQUE: Single frontal view of the chest is obtained. FINDINGS: The heart size is normal. The pulmonary vasculature is normal. There is elevation of the right diaphragm. Some mild subsegmental atelectasis may be at the right bas e. Pacemaker overlies the left chest. Sternotomy plates and screws are evident. IMPRESSION: 1. Elevation of the right diaphragm and subsegmental atelectasis right lung base. Follow-up exam be p erformed as clinically indicated.
[2022-05-09] MEDS: METOPROLOL TARTRATE 12.5 MG TAB PO SCH ×2 (10:28→21:13)
[2022-05-09] MEDS: hydrALAZINE HCL 25 MG TAB PO SCH (10:29)
--- NOTE | 2022-05-09 10:30 | P.PN ---
Subjective Patient is seen in follow-up for acute kidney injury. Renal function stable. Suero catheter reinserted 05/03/2022 due to persistent retention. Nonoliguric. Oral intake fair. No vomiting or diarrhea. No chest pain or shortness of breath. On 2 L nasal cannula. Blood pressure stable. Vital signs are stable. General: Awake. No acute distress. HEENT: Head exam is unremarkable. On nasal cannula. LUNGS: Breath sounds decreased. HEART: Rate and Rhythm are regular. ABDOMEN: Soft, obese. EXTREMITITES: No edema. Objective - Vital Signs Vital signs: Vital Signs Temp 97.6 F 05/09/22 07:29 Pulse 73 05/09/22 10:28 Resp 30 H 05/09/22 10:28 BP 108/47 05/09/22 10:28 Pulse Ox 98 05/09/22 10:28 FiO2 Intake & Output 05/08/22 05/09/22 05/09/22 18:59 06:59 18:59 Intake Total 960 Output Total 1250 400 Balance -290 -400 Intake: Oral 960 Output: Urine 1250 400 Uretheral (Suero) 500 Other: Voiding Method Indwelling Catheter Indwelling Catheter Indwelling Catheter # Bowel Movements 1 1 - Labs CBC & Chem 7: 05/06/22 04:03 05/09/22 05:20 Labs: Abnormal Lab Results - Last 24 Hours (Table) 05/08/22 05/08/22 05/08/22 Range/Units 11:28 16:26 20:32 BUN (9-20) mg/dL Creatinine (0.66-1.25) mg/dL POC Glucose (mg/dL) 252 H 308 H 304 H (75-99) mg/dL Magnesium (1.6-2.3) mg/dL 05/09/22 05/09/22 Range/Units 05:20 07:09 BUN 70 H (9-20) mg/dL Creatinine 1.54 H (0.66-1.25) mg/dL POC Glucose (mg/dL) 106 H (75-99) mg/dL Magnesium 2.4 H (1.6-2.3) mg/dL Assessment and Plan Plan: Assessment: 1. Acute kidney injury secondary to obstructive uropathy. Also component of diuresis. Creatinine stable at 1.54 today. 2. History of right nephrectomy. 3. Chronic kidney disease stage IIIA for baseline creatinine near 1.0. Etiology is solitary kidney. 4. Urinary retention. Suero catheter had to be reinserted 05/03/2022. On Flomax. Urology following. Plan for cystoscopy outpatient. 5. History of prostate cancer. 6. Diabetes mellitus. 7. E. coli UTI on antibiotics. 8. Anemia. Iron deficiency noted. Status post IV iron. 9. Chronic systolic CHF with ejection fraction of 45-50%. Plan: Maintain oral Lasix. Encouraged oral intake. Avoid nephrotoxins. Continue to monitor renal function and urine output. Repeat BMP and magnesium level 2 to 3 days postdischarge. Follow up outpatient in 1 week. He will also follow-up with urology outpatient.
[2022-05-09] MEDS: ERTAPENEM 1 GM in SODIUM CHLORIDE 0.9% 50 ML IVPB SCH (10:45)
[2022-05-09] MEDS: FINASTERIDE 5 MG TAB PO SCH (10:46)
[2022-05-09] MEDS: ASCORBIC ACID 500 MG TAB PO SCH (10:46)
[2022-05-09] MEDS: SERTRALINE 50 MG TAB PO SCH (10:46)
[2022-05-09] MEDS: ZINC SULFATE 220 MG CAP PO SCH (10:46)
[2022-05-09] MEDS: ATORVASTATIN 20 MG TAB PO SCH (10:46)
[2022-05-09] MEDS: GABAPENTIN 100 MG CAP PO SCH ×2 (10:46→21:13)
[2022-05-09] MEDS: CHOLECALCIFEROL 125 MCG (5000 IU) TABLET PO SCH (10:47)
[2022-05-09] MEDS: ISOSORBIDE MONONITRATE ER 30 MG TAB.ER.24H PO SCH (10:47)
[2022-05-09] MEDS: RIVAROXABAN 20 MG TAB PO SCH (10:58)
[2022-05-09] MEDS: FUROSEMIDE 20 MG TAB PO SCH (11:29)
[2022-05-09] MEDS: predniSONE 20 MG TAB PO SCH (11:29)
[2022-05-09 11:30] LABS: Glucose,Whole Blood 101 mg/dL (75-99)
[2022-05-09 14:38] LABS: Basophils % (A) 0 %; Eosinophils % (A) 0 %; HCT 31.5 % (39.0-53.0); HGB 9.4 gm/dL (13.0-17.5); Hypochromasia Marked; Lymphocytes # (A) 0.5 k/uL (1.0-4.8); Lymphocytes % (A) 6 %; MCH 29.6 pg (25.0-35.0); MCV 98.9 fL (80.0-100.0); Macrocytosis Slight; Mean Platelet Volume 7.8; Monocytes # (A) 0.4 k/uL (0-1.0); Monocytes % (A) 5 %; Neutrophils # (A) 7.8 k/uL (1.3-7.7); Neutrophils % (A) 88 %; Platelet Count 275 k/uL (150-450); RBC 3.19 m/uL (4.30-5.90); RDW 15.5 % (11.5-15.5); WBC 8.9 k/uL (3.8-10.6)
[2022-05-09 16:52] LABS: Glucose,Whole Blood 244 mg/dL (75-99)
--- NOTE | 2022-05-09 19:51 | P.PN ---
Subjective Progress Note Date: 05/09/22 This is a pleasant 77-year-old male who was recently admitted with acute urinary tract infection with failed outpatient therapy and is being closely monitored. Patient has been seen and evaluated by urology requiring indwelling Gonzalez catheter and catheter has been removed and patient is due to void. Patient with no further hematuria noted and hemoglobin is stable at 9.3. Patient is afebrile and denies any worsening abdominal pain or urinary retention. Urine culture showing E. coli with ESBL and multi-resistance and have consulted infectious disease and appreciate input and recommendations. Antibiotics have been transition to Invanz per ID recommendations. Nephrology also following the alo ent for acute kidney injury that appears to be obstructive in nature and also a prerenal component. Patient is afebrile and denies any chest pain or shortness of breath. Repeat urinalysis with reflex to culture is ordered and pending. 05/03/2022 Patient is seen today and required indwelling catheter per urology and will continue and most likely discharge with gonzalez and close outpatient follow up. Awaiting repeat urine culture with ID following and patient is maintained on IV invanz and will continue for now. Patient vss and labs within normal limits. Nephrology following as well and kidney functions improving. creatinine is 1 today. Patient is afebrile and denies any chest pain or shortness of breath. Patient with some mild abdominal pain of palpation. Encouraged increase activity as tolerated. 05/06/2022 Patient was seen in follow-up this morning currently maintained on 2 L as [facility] staff reports he had a brief episode of chest pain with elevated blood pressure and some shortness of breath. Chest x-ray shows a right lower lobe infiltrate and small effusion increased from prior exam and correlate for mild central venous congestion. Will give a small dose of IV Lasix and wean FiO2 as tolerated. Patient is continued on IV Invanz and urine cultures are negative with ID following. Cardiology was consulted for concerns and the positive troponin that were mildly elevated in order to 2-D echo which shows a moderately increased septal wall thickness with left ventricular ejection fraction estimated at 45-50% with a noted suboptimal study. Patient will continue to follow with cardiology in the outpatient setting. Urology and nephrology also following patient did require indwelling Gonzalez catheter and will discharge on this and have outpatient urology follow-up. Patient is receiving IV iron for iron deficiency anemia. Patient is afebrile and denies any worsening shortness of breath or chest pain today. Will have physical therapy evaluate the patient although patient reports his plan is to go home with his son who is his caregiver. 05/07/2022 Patient is seen today and continues with some shortness of breath and will do home 02 evaluation as patient does not wear 02 in the outpatient setting. Worsening shortness of breath last night and was started on IV steroids. Nephrology following as well and being started on oral lasix. Patient denies chest pain. PT evaluated the patient recommending TRAVIS although patient refused and reports he will be going home with his son who is his caregiver. Will arrange home care. Patient is afebrile. Recommend continuing to monitor blood sugars closely. 05/08/2022 Patient is seen this morning continues on 3 L via nasal cannula and oxygen saturation is 97%. Attempted home O2 eval and oxygen saturation on lowest reading was 92% on room air and will not qualify for home O2. Patient continues with indwelling Gonzalez catheter and will continue in the outpatient setting with outpatient urology follow-up. Patient was recently started on oral Lasix low- dose and will continue. Creatinine elevated at 1.56. Patient is afebrile. Will order BNP to a.m. labs. Patient would likely benefit from IV Lasix although kidney functions are worsening. Patient currently maintained on Lasix 20 mg daily by mouth. Nephrology is following. Patient denies worsening shortness of breath or chest pains. Patient continues with weakness requiring assistance although continues to refuse to go to rehab. 05/09/2022 Patient is followed up and continues to have increasing respirations and working to breath although denies shortness of breath. Patient continues with extreme weakness and PT recommending TRAVIS and patient is refusing. Patient was given a dose of IV lasix and will continue 20 mg oral daily. Nephrology following. Cornelio nt continues with gonzalez catheter. ID following as well and antibiotics have been discontinued and CRP and procalcitonin ordered. Will order repeat labs. Chest xray stable. Patient is afebrile. Review of systems: Constitutional: No reports of fatigue, fever, or chills Cardiovascular: No reports of chest pain or palpitations Respiratory: No reports of worsening shortness of breath GI: No reports of nausea, no reports of of vomiting : No reports of dysuria or retention, status post Gonzalez catheter replacement Neurovascular: reports of generalized weakness All medications have been reviewed Active Medications Acetaminophen (Acetaminophen Tab 325 Mg Tab) 650 mg PO Q6HR PRN PRN Reason: Mild Pain or Fever > 100.5 Last Admin: 05/07/22 07:31 Dose: 650 mg Acetaminophen (Acetaminophen Tab 325 Mg Tab) 650 mg PO HS [facility] Last Admin: 05/08/22 20:37 Dose: 650 mg Hydrocodone Bitart/Acetaminophen (Hydrocodone/Apap 5-325mg 1 Each Tab) 1 each PO Q6HR PRN PRN Reason: Pain Last Admin: 05/06/22 09:04 Dose: 1 each Albuterol Sulfate (Albuterol Nebulized 2.5 Mg/3 Ml) 2.5 mg INHALATION RT-Q6H PRN PRN Reason: Shortness Of Breath Last Admin: 05/08/22 23:38 Dose: 2.5 mg Albuterol/Ipratropium (Ipratropium-Albuterol 3 Ml Neb) 3 ml INHALATION RT-QID [facility] Last Admin: 05/09/22 16:26 Dose: 3 ml Albuterol/Ipratropium (Ipratropium-Albuterol 3 Ml Neb) 3 ml INHALATION RT-Q4H PRN PRN Reason: Shortness Of Breath Ascorbic Acid (Ascorbic Acid 500 Mg Tab) 500 mg PO DAILY [facility] Last Admin: 05/09/22 10:46 Dose: 500 mg Atorvastatin Calcium (Atorvastatin 20 Mg Tab) 20 mg PO DAILY [facility] Last Admin: 05/09/22 10:46 Dose: 20 mg Budesonide (Budesonide 1 Mg/2 Ml Nebu) 1 mg INHALATION RT-BID [facility] Last Admin: 05/09/22 08:47 Dose: Not Given Calcium Carbonate/Glycine (Calcium Carbonate 500 Mg Chewable) 1,000 mg PO QID PRN PRN Reason: Heartburn Last Admin: 05/07/22 23:30 Dose: 1,000 mg Cholecalciferol (Cholecalciferol 125 Mcg (5000 Iu) Tablet) 125 mcg PO DAILY [facility] Last Admin: 05/09/22 10:47 Dose: 125 mcg Finasteride (Finasteride 5 Mg Tab) 5 mg PO DAILY [facility] Last Admin: 05/09/22 10:46 Dose: 5 mg Formoterol Fumarate (Formoterol Fumarate 20 Mcg/2 Ml Nebu) 20 mcg INHALATION RT-BID [facility] Last Admin: 05/09/22 08:47 Dose: Not Given Furosemide (Furosemide 20 Mg Tab) 20 mg PO DAILY [facility] Last Admin: 05/09/22 11:29 Dose: 20 mg Gabapentin (Gabapentin 100 Mg Cap) 100 mg PO BID [facility] Last Admin: 05/09/22 10:46 Dose: 100 mg Guaifenesin/Dextromethorphan (Guaifenesin-Dm 100-10mg/5ml 10 Ml Cup) 5 ml PO Q6HR PRN PRN Reason: Cough Last Admin: 05/08/22 23:11 Dose: 5 ml Hydromorphone HCl (Hydromorphone 0.5 Mg/0.5 Ml Syringe) 0.5 mg IVP Q3HR PRN PRN Reason: Pain Last Admin: 04/29/22 20:18 Dose: 0.5 mg Insulin Aspart (Insulin Aspart (Novolog) 100 Unit/Ml Vial) 0 unit SQ ACHS [facility]; Protocol Last Admin: 05/09/22 16:58 Dose: 3 unit Insulin Detemir (Insulin Detemir (Levemir) 100 Unit/Ml Syr) 30 unit SQ [facility] Last Admin: 05/08/22 20:36 Dose: 30 unit Isosorbide Mononitrate (Isosorbide Mononitrate Er 30 Mg Tab.Er.24h) 30 mg PO DAILY [facility] Last Admin: 05/09/22 10:47 Dose: 30 mg Metoprolol Tartrate (Metoprolol Tartrate 12.5 Mg Tab) 12.5 mg PO BID [facility] Last Admin: 05/09/22 10:28 Dose: Not Given Naloxone HCl (Naloxone 0.4 Mg/Ml 1 Ml Vial) 0.2 mg IV Q2M PRN PRN Reason: Opioid Reversal Prednisone (Prednisone 20 Mg Tab) 40 mg PO DAILY [facility] Last Admin: 05/09/22 11:29 Dose: 40 mg Rivaroxaban (Rivaroxaban 20 Mg Tab) 20 mg PO DAILY [facility]; Protocol Last Admin: 05/09/22 10:58 Dose: 20 mg Sertraline HCl (Sertraline 50 Mg Tab) 50 mg PO DAILY [facility] Last Admin: 05/09/22 10:46 Dose: 50 mg Tamsulosin HCl (Tamsulosin 0.4 Mg Cap.Er.24h) 0.4 mg PO [facility] Last Admin: 05/08/22 20:37 Dose: 0.4 mg Zinc Sulfate (Zinc Sulfate 220 Mg Cap) 220 mg PO DAILY [facility] Last Admin: 05/09/22 10:46 Dose: 220 mg PHYSICAL EXAMINATION: GENERAL: The patient is alert and oriented x4, Obese. Well developed, well nourished. HEENT: Pupils are round and equally reacting to light. EOMI. no scleral icterus. No conjunctival pallor. Normocephalic, atraumatic. No pharyngeal erythema. No thyromegaly. CARDIOVASCULAR: S1 and S2 muffled PULMONARY: diminished breath sounds bilateral with some scattered rhonchi no daina. ABDOMEN: soft. Non-tender on exam. obese. non-distended, normoactive bowel sounds. No palpable organomegaly. MUSCULOSKELETAL: No joint swelling or deformity. EXTREMITIES: No cyanosis, clubbing, or pedal edema. NEUROLOGICAL: Gross neurological examination did not reveal any focal deficits. diffuse weakness SKIN: No rashes. Assessment: Acute urinary tract infection with failure of outpatient treatment, present on admission, with ESBL Acute on chronic congestive heart failure with systolic dysfunction Hematuria, resolved Chest pain ruled out ACS Elevated BNP Severe groin pain and urinary retention with failure of outpatient treatment History of prostate cancer Chronic renal failure Coronary artery disease with previous CABG Permanent pacemaker chronic obstructive pulmonary disease, acute exacerbation diabetes mellitus type 2 GI prophylaxis DVT prophylaxis Full code Plan: Recommend to continue with current medications and management with urology and nephrology following. Infectious disease following for ESBL in the urine with E. coli and was maintained on IV Invanz. and is being discontinued. CRP and procalcitonin ordered. Patient is afebrile. Patient chest xray is stable. Patient continues to have oxygen supplementation at 3 L and was tested for home 02 although does not qualify. Recommend to continue gonzalez and will have patient follow-up in the outpatient setting with urology . Patient maintained on low dose oral lasix. Kidney function is stable currently 1.5. Will repeat am labs. Patient is to follow-up with nephrology outpatient as well. Patient is to follow-up with urology in the outpatient setting as discussed. physical therapy evaluated the patient recommending TRAVIS and patient is refusing rehab and will be going home with his son who is his caregiver. Need to discuss discharge planning with son. Hydralazine being discontinued as blood pressure has been on the lower side. Recommend continued duonebs and will transition IV steroids to o ral prednisone. Possible component of sleep apnea. Due to multiple complex medical issues prognosis is guarded. Encouraged increased activity as tolerated and getting out of the bed more often. The impression and plan of care has been dictated by Nancy De Los Santos, nurse practitioner as directed. Dr. Mayank MD I have performed a history and examination and MDM of this patient, discussed the same with the dictator, and agree with the dictator's assessment and plan as written ,documented as a scribe. Based on total visit time, I have performed more than 50% of the visit. Any additional findings or plans will be noted. Objective - Vital Signs Vital signs: Vital Signs Temp 97.6 F 05/09/22 07:29 Pulse 60 05/09/22 08:56 Resp 24 05/09/22 07:29 BP 107/71 05/09/22 07:29 Pulse Ox 94 L 05/09/22 08:48 FiO2 Intake & Output 05/08/22 05/09/22 05/09/22 18:59 06:59 18:59 Intake Total 960 Output Total 1250 400 Balance -290 -400 Intake: Oral 960 Output: Urine 1250 400 Uretheral (Gonzalez) 500 Other: Voiding Method Indwelling Catheter Indwelling Catheter # Bowel Movements 1 1 - Labs CBC & Chem 7: 05/09/22 14:02 05/09/22 05:20 Labs: Abnormal Lab Results - Last 24 Hours (Table) 05/08/22 05/08/22 05/08/22 Range/Units 11:28 16:26 20:32 BUN (9-20) mg/dL Creatinine (0.66-1.25) mg/dL POC Glucose (mg/dL) 252 H 308 H 304 H (75-99) mg/dL Magnesium (1.6-2.3) mg/dL 05/09/22 05/09/22 Range/Units 05:20 07:09 BUN 70 H (9-20) mg/dL Creatinine 1.54 H (0.66-1.25) mg/dL POC Glucose (mg/dL) 106 H (75-99) mg/dL Magnesium 2.4 H (1.6-2.3) mg/dL
[2022-05-09 19:59] LABS: Glucose,Whole Blood 309 mg/dL (75-99)
[2022-05-09] MEDS: INSULIN DETEMIR (LEVEMIR) 100 UNIT/ML SYR SQ SCH (21:12)
[2022-05-09] MEDS: TAMSULOSIN 0.4 MG CAP.ER.24H PO SCH (21:13)
[2022-05-09] MEDS: ACETAMINOPHEN TAB 325 MG TAB PO SCH (21:13)
[2022-05-10 07:02] LABS: Glucose,Whole Blood 138 mg/dL (75-99)
[2022-05-10 07:42] LABS: African American GFR (CKD) 50 (>60 ml/min/1.73 sqM); Anion Gap 5 mmol/L; Blood Urea Nitrogen 78 mg/dL (9-20); Calcium 9.2 mg/dL (8.4-10.2); Carbon Dioxide 35 mmol/L (22-30); Chloride 101 mmol/L (98-107); Glucose 118 mg/dL (74-99); Non-African American GFR(CKD) 43 (>60 ml/min/1.73 sqM); Potassium 4.9 mmol/L (3.5-5.1); Sodium 141 mmol/L (137-145)
[2022-05-10] MEDS: INSULIN ASPART (NovoLOG) 100 UNIT/ML VIAL SQ SCH ×2 (07:50→11:52)
[2022-05-10] MEDS: FUROSEMIDE 20 MG TAB PO SCH (08:00)
[2022-05-10] MEDS: ISOSORBIDE MONONITRATE ER 30 MG TAB.ER.24H PO SCH (08:01)
[2022-05-10] MEDS: FINASTERIDE 5 MG TAB PO SCH (08:01)
[2022-05-10] MEDS: SERTRALINE 50 MG TAB PO SCH (08:01)
[2022-05-10] MEDS: CHOLECALCIFEROL 125 MCG (5000 IU) TABLET PO SCH (08:01)
[2022-05-10] MEDS: METOPROLOL TARTRATE 12.5 MG TAB PO SCH (08:01)
[2022-05-10] MEDS: GABAPENTIN 100 MG CAP PO SCH (08:01)
[2022-05-10] MEDS: ATORVASTATIN 20 MG TAB PO SCH (08:02)
[2022-05-10] MEDS: RIVAROXABAN 20 MG TAB PO SCH (08:02)
[2022-05-10] MEDS: ASCORBIC ACID 500 MG TAB PO SCH (08:02)
[2022-05-10] MEDS: predniSONE 20 MG TAB PO SCH (08:02)
[2022-05-10] MEDS: BUDESONIDE 1 MG/2 ML NEBU INHALATION SCH (08:57)
[2022-05-10] MEDS: FORMOTEROL FUMARATE 20 MCG/2 ML NEBU INHALATION SCH (08:57)
[2022-05-10] MEDS: IPRATROPIUM-ALBUTEROL 3 ML NEB INHALATION SCH ×3 (08:57→15:35)
[2022-05-10 11:25] LABS: Glucose,Whole Blood 222 mg/dL (75-99)
--- NOTE | 2022-05-10 12:49 | P.PN ---
Subjective Patient is seen in follow-up for acute kidney injury. Renal function stable. Suero catheter reinserted 05/03/2022 due to persistent retention. Nonoliguric. Oral intake fair. No vomiting or diarrhea. No chest pain or shortness of breath. On room air currently. No active complaints. Vital signs are stable. General: Awake. No acute distress. HEENT: Head exam is unremarkable. LUNGS: Breath sounds decreased. HEART: Rate and Rhythm are regular. ABDOMEN: Soft, obese. EXTREMITITES: No edema. Objective - Vital Signs Vital signs: Vital Signs Temp 97.6 F 05/10/22 08:04 Pulse 75 05/10/22 12:08 Resp 30 H 05/10/22 12:04 BP 158/80 05/10/22 08:04 Pulse Ox 82 L 05/10/22 12:04 FiO2 32 05/10/22 01:06 Intake & Output 05/09/22 05/10/22 05/10/22 18:59 06:59 18:59 Intake Total 600 240 Output Total 600 1400 Balance 0 -1400 240 Intake: Oral 600 240 Output: Urine 600 1400 Other: Voiding Method Indwelling Catheter Indwelling Catheter - Labs CBC & Chem 7: 05/09/22 14:02 05/10/22 07:12 Labs: Abnormal Lab Results - Last 24 Hours (Table) 05/09/22 05/09/22 05/09/22 Range/Units 14:02 14:02 14:02 RBC 3.19 L (4.30-5.90) m/uL Hgb 9.4 L (13.0-17.5) gm/dL Hct 31.5 L (39.0-53.0) % MCHC 30.0 L (31.0-37.0) g/dL Neutrophils # 7.8 H (1.3-7.7) k/uL Lymphocytes # 0.5 L (1.0-4.8) k/uL Carbon Dioxide (22-30) mmol/L BUN (9-20) mg/dL Creatinine (0.66-1.25) mg/dL Glucose (74-99) mg/dL POC Glucose (mg/dL) (75-99) mg/dL C-Reactive Protein 3.0 H (<1.0) mg/dL Procalcitonin 0.27 H (0.02-0.09) ng/mL 05/09/22 05/09/22 05/10/22 Range/Units 16:50 19:57 07:00 RBC (4.30-5.90) m/uL Hgb (13.0-17.5) gm/dL Hct (39.0-53.0) % MCHC (31.0-37.0) g/dL Neutrophils # (1.3-7.7) k/uL Lymphocytes # (1.0-4.8) k/uL Carbon Dioxide (22-30) mmol/L BUN (9-20) mg/dL Creatinine (0.66-1.25) mg/dL Glucose (74-99) mg/dL POC Glucose (mg/dL) 244 H 309 H 138 H (75-99) mg/dL C-Reactive Protein (<1.0) mg/dL Procalcitonin (0.02-0.09) ng/mL 05/10/22 05/10/22 Range/Units 07:12 11:24 RBC (4.30-5.90) m/uL Hgb (13.0-17.5) gm/dL Hct (39.0-53.0) % MCHC (31.0-37.0) g/dL Neutrophils # (1.3-7.7) k/uL Lymphocytes # (1.0-4.8) k/uL Carbon Dioxide 35 H (22-30) mmol/L BUN 78 H (9-20) mg/dL Creatinine 1.54 H (0.66-1.25) mg/dL Glucose 118 H (74-99) mg/dL POC Glucose (mg/dL) 222 H (75-99) mg/dL C-Reactive Protein (<1.0) mg/dL Procalcitonin (0.02-0.09) ng/mL Assessment and Plan Plan: Assessment: 1. Acute kidney injury secondary to obstructive uropathy. Also component of diuresis. Creatinine stable at 1.54 today. 2. History of right nephrectomy. 3. Chronic kidney disease stage IIIA for baseline creatinine near 1.0. Etiology is solitary kidney. 4. Urinary retention. Suero catheter had to be reinserted 05/03/2022. On Flomax. Urology following. Plan for cystoscopy outpatient. 5. History of prostate cancer. 6. Diabetes mellitus. 7. E. coli UTI s/p antibiotics. 8. Anemia. Iron deficiency noted. Status post IV iron. 9. Chronic systolic CHF with ejection fraction of 45-50%. Plan: Maintain oral Lasix. Encouraged oral intake. Avoid nephrotoxins. Continue to monitor renal function and urine output. Repeat BMP and magnesium level 2 to 3 days postdischarge. Follow up outpatient in 1 week. He will also follow-up with urology outpatient.
--- NOTE | 2022-05-10 13:34 | P.EN ---
Patient will require oxygen via nasal cannula at 3 L to manage his COPD and CHF on discharge. Prescription provided to case management.
[2022-05-10 14:35] VITALS: PULSE 71; RESP 18; TEMP 98
[2022-05-10 14:36] VITALS: BP 136/53
--- NOTE | 2022-05-11 06:48 | P.DS ---
Providers Date of admission: 04/29/22 11:22 Expected date of discharge: 05/10/22 Attending physician: Roxy Mccord Consults: 04/29/22 12:41 Consult Physician Urgent Consulting Provider: Mirna Matos Consult Reason/Comments: uti failed outpatient treatment Do you want consulting provider notified?: Yes 04/30/22 11:19 Consult Physician Routine Consulting Provider: Easton Valentin Consult Reason/Comments: hematuria Do you want consulting provider notified?: Yes 05/02/22 06:00 Consult Physician Urgent Consulting Provider: Eddie Roche Consult Reason/Comments: UTI esbl Do you want consulting provider notified?: Yes [facility] Course: Final diagnosis Acute urinary tract infection with failure of outpatient treatment, present on admission, with ESBL Acute on chronic congestive heart failure with systolic dysfunction Hematuria, resolved Chest pain ruled out ACS Elevated BNP Severe groin pain and urinary retention with failure of outpatient treatment History of prostate cancer Chronic renal failure Coronary artery disease with previous CABG Permanent pacemaker chronic obstructive pulmonary disease, acute exacerbation Possible obstructive sleep apnea or obesity hypoventilation syndrome, needs further pulmonary testing diabetes mellitus type 2 GI prophylaxis DVT prophylaxis Full code Discharge disposition Patient is being discharged in a stable condition with guarded prognosis to home. Patient will follow-up with Dr. Tang upon discharge. Patient will continue with a low dose lasix 20 mg daily and follow up with labs in 2-3 days. Patient needs follow up with nephro and urology on discharge. Patient will also continue on a prednisone taper in the outpatient setting. Total time taken is 35 minutes. Hospital course. This is a 77-year-old male who was recently admitted with hematuria and UTI failed outpatient. Patient was seen and evaluated by urology and was also treated for UTI with ID following. Patient has completed course of antibiotics and will follow up closely with urology and continue indwelling gonzalez catheter as patient continue to retain. Patient will need nephro follow up as well. Highly encouraged pulmonary follow up for further testing. Patient is requiring home 02 on dc at 2-3 liters for CHF. Patient with significant weakness and was evaluated by PT recommending TRAVIS and patient adamantly refused on multiple occasions. Patient reports he lives with his son who is his caregiver. Currently no reports of chest pain, shortness of breath, or palpitations. Patient is afebrile. No reports of nausea or vomiting and patient is tolerating diet. Patient will discharge home today. Guarded prognosis. Patient is extremely high risk for readmission. Physical exam: Gen: This is a 77 year old male awake and alert x 3. obese, well developed and well nourished HEENT: Head is atraumatic, normocephalic. Pupils equal, round. Sclerae is anicteric. NECK: Supple. No JVD. No lymphadenopathy. No thyromegaly. LUNGS: diminished breath sounds bilaterally with diffuse scattered rhonchi. No intercostal retractions. HEART: Regular rate and rhythm. No murmur. ABDOMEN: Soft. obese, belly breather, Bowel sounds are present. No masses. No tenderness. EXTREMITIES: No pedal edema. No calf tenderness. NEUROLOGICAL: Patient is awake, alert and oriented x3. diffusely weak. Please refer to medication reconciliation sheet for a list of medications. The impression and plan of care has been dictated by Nancy De Los Santos, Nurse Practitioner as directed. Dr. Mayank MD I have performed a history and examination and MDM of this patient, discussed the same with the dictator, and agree with the dictator's assessment and plan as written ,documented as a scribe. Based on total visit time, I have performed more than 50% of the visit. Patient Condition at Discharge: Stable Plan - Discharge Summary Discharge Rx Participant: Yes New Discharge Prescriptions: New Ipratropium-Albuterol Nebulize [Duoneb 0.5 mg-3 mg/3 ml Soln] 3 ml INHALATION RT-QID 30 Days #120 each Ipratropium-Albuterol Nebulize [Duoneb 0.5 mg-3 mg/3 ml Soln] 3 ml INHALATION RT-Q4H PRN each PRN Reason: Shortness Of Breath Metoprolol Tartrate [Lopressor] 12.5 mg PO BID 30 Days #60 tab Calcium Carbonate [Tums] 1,000 mg PO QID PRN tab PRN Reason: Heartburn Isosorbide Mononitrate ER [Imdur] 30 mg PO DAILY #30 tab Furosemide [Lasix] 20 mg PO DAILY 30 Days #30 tab Acetaminophen Tab [Tylenol] 650 mg PO Q6HR PRN tab PRN Reason: Mild Pain Or Fever > 100.5 predniSONE 10 mg PO DIRECTED #30 tab Continue Atorvastatin [Lipitor] 20 mg PO DAILY Finasteride [Proscar] 5 mg PO DAILY Aspirin [Hitterdal Aspirin EC] 81 mg PO DAILY Sertraline HCl [Zoloft] 50 mg PO DAILY Tamsulosin [Flomax] 0.4 mg PO HS Acetaminophen [Tylenol Arthritis] 650 mg PO HS Ferrous Sulfate [Feosol] 325 mg PO DAILY Gabapentin [Neurontin] 100 mg PO BID Ascorbic Acid [Vitamin C] 500 mg PO DAILY Insulin Glargine,Hum.rec.anlog [Lantus Solostar Pen] 30 unit SQ HS Rivaroxaban [Xarelto] 20 mg PO DAILY Nitroglycerin Sl Tabs [Nitrostat] 0.4 mg SL Q5M PRN PRN Reason: Chest Pain Cholecalciferol (Vitamin D3) [Vitamin D3 (125 MCG = 5,000 IU)] 125 mcg PO DAILY Ibuprofen [Motrin Ib] 600 mg PO Q8H PRN PRN Reason: Pain Albuterol Inhaler [Ventolin Hfa Inhaler] 2 puff INHALATION RT-Q6H PRN PRN Reason: Shortness Of Breath Discontinued Glimepiride [Amaryl] 1 mg PO DAILY Losartan Potassium [Cozaar] 25 mg PO HS Zinc 50 mg PO DAILY Nitrofurantoin Monohyd/M-Cryst [Macrobid] 100 mg PO Q12HR #14 cap Discharge Medication List Aspirin [Hitterdal Aspirin EC] 81 mg PO DAILY 01/07/19 [History] Atorvastatin [Lipitor] 20 mg PO DAILY 01/07/19 [History] Finasteride [Proscar] 5 mg PO DAILY 01/07/19 [History] Sertraline HCl [Zoloft] 50 mg PO DAILY 02/05/19 [History] Tamsulosin [Flomax] 0.4 mg PO HS 07/06/19 [History] Acetaminophen [Tylenol Arthritis] 650 mg PO HS 07/27/20 [History] Ferrous Sulfate [Feosol] 325 mg PO DAILY 07/27/20 [History] Gabapentin [Neurontin] 100 mg PO BID 12/06/20 [History] Nitroglycerin Sl Tabs [Nitrostat] 0.4 mg SL Q5M PRN 02/19/21 [History] Ascorbic Acid [Vitamin C] 500 mg PO DAILY 09/14/21 [History] Cholecalciferol (Vitamin D3) [Vitamin D3 (125 MCG = 5,000 IU)] 125 mcg PO DAILY 09/14/21 [History] Insulin Glargine,Hum.rec.anlog [Lantus Solostar Pen] 30 unit SQ HS 09/14/21 [History] Albuterol Inhaler [Ventolin Hfa Inhaler] 2 puff INHALATION RT-Q6H PRN 04/29/22 [History] Ibuprofen [Motrin Ib] 600 mg PO Q8H PRN 04/29/22 [History] Rivaroxaban [Xarelto] 20 mg PO DAILY 04/29/22 [History] Acetaminophen Tab [Tylenol] 650 mg PO Q6HR PRN tab 05/10/22 [Rx] Calcium Carbonate [Tums] 1,000 mg PO QID PRN tab 05/10/22 [Rx] Furosemide [Lasix] 20 mg PO DAILY 30 Days #30 tab 05/10/22 [Rx] Ipratropium-Albuterol Nebulize [Duoneb 0.5 mg-3 mg/3 ml Soln] 3 ml INHALATION RT-Q4H PRN each 05/10/22 [Rx] Ipratropium-Albuterol Nebulize [Duoneb 0.5 mg-3 mg/3 ml Soln] 3 ml INHALATION RT-QID 30 Days #120 each 05/10/22 [Rx] Isosorbide Mononitrate ER [Imdur] 30 mg PO DAILY #30 tab 05/10/22 [Rx] Metoprolol Tartrate [Lopressor] 12.5 mg PO BID 30 Days #60 tab 05/10/22 [Rx] predniSONE 10 mg PO DIRECTED #30 tab 05/10/22 [Rx] Follow up Appointment(s)/Referral(s): Mirna Matos MD [STAFF PHYSICIAN] - 05/29/22 11:20 am Homer Harper MD [STAFF PHYSICIAN] - 1 Week (office will call patient with date and time for follow up appoinment ) [employer] [NON-STAFF] - As Needed (CALL WHEN HOME TO ARRANGE DELIVERY OF OXYGEN CONCENTRATOR ) Jorge Ardon MD [STAFF PHYSICIAN] - 1 Week (For cystoscopy ) Emilee Carroll [NON-STAFF] - As Needed Della Grant MD [Primary Care Provider] - 05/09/22 2:30 pm (will be at the [place] office ) Patient Instructions/Handouts: Urinary Tract Infection in Men (DC), Gonzalez Catheter Placement and Care (DC) Activity/Diet/Wound Care/Special Instructions: Gonzalez catheter to remain in place until seen in the office by Urology physicians Activity Limited until follow-up Follow-up with primary care provider on discharge Follow-up with pulmonary outpatient for further testing Follow-up with cardiology outpatient Follow-up with urology outpatient Follow-up with nephrology outpatient Continue with breathing inhalational treatments 4 times a day and as needed Continue with prednisone taper Continue with Gonzalez until seen by urology Continue with oxygen at 3 L via nasal cannula Discharge Disposition: HOME WITH HOME HEALTH SERVICES
== END 2022-05-10 15:59 | disposition home health service (06) | DRG 682 ==
LOC: EC 09:11 → 4SSUR 11:22
PROVIDERS: ADMIT Hospitalist; ATTEND Hospitalist
PROC: 3E1K88Z Irrigation of Genitourinary Tract using Irrigating Substance, Via Natural or Artificial Opening Endoscopic (ICD-10-PCS; principal; 2022-05-01)
DX: N17.9 Acute kidney failure, unspecified (principal); I50.23 Acute on chronic systolic (congestive) heart failure; J44.1 Chronic obstructive pulmonary disease with (acute) exacerbation; I13.0 Hypertensive heart and chronic kidney disease with heart failure and stage 1 through stage 4 chronic kidney disease, or unspecified chronic kidney disease; Z16.12 Extended spectrum beta lactamase (ESBL) resistance; E66.2 Morbid (severe) obesity with alveolar hypoventilation; N13.6 Pyonephrosis; B96.20 Unspecified Escherichia coli [E. coli] as the cause of diseases classified elsewhere; E11.22 Type 2 diabetes mellitus with diabetic chronic kidney disease; D50.9 Iron deficiency anemia, unspecified; I69.398 Other sequelae of cerebral infarction; H54.40 Blindness, one eye, unspecified eye; E78.5 Hyperlipidemia, unspecified; E87.5 Hyperkalemia; I25.10 Atherosclerotic heart disease of native coronary artery without angina pectoris; N18.31 Chronic kidney disease, stage 3a; Z20.822 Contact with and (suspected) exposure to COVID-19; R33.9 Retention of urine, unspecified; R31.0 Gross hematuria; Z90.5 Acquired absence of kidney; I25.2 Old myocardial infarction; Z86.14 Personal history of Methicillin resistant Staphylococcus aureus infection; Z79.01 Long term (current) use of anticoagulants; Z79.82 Long term (current) use of aspirin; Z79.84 Long term (current) use of oral hypoglycemic drugs; Z79.899 Other long term (current) drug therapy; Z95.1 Presence of aortocoronary bypass graft; Z95.0 Presence of cardiac pacemaker; Z92.3 Personal history of irradiation; Z87.891 Personal history of nicotine dependence; Z87.442 Personal history of urinary calculi; Z85.46 Personal history of malignant neoplasm of prostate; Z68.37 Body mass index [BMI] 37.0-37.9, adult; Z82.49 Family history of ischemic heart disease and other diseases of the circulatory system; Z83.3 Family history of diabetes mellitus
CPT/HCPCS: 36415; 71045; 71046; 74176; 76770; 80048; 80053; 81001; 83036; 83540; 83550; 83605; 83735; 83880; 84145; 84484; 85025; 86140; 87040; 87077; 87086; 87186; 87324; 93005; 93306; 94640; 94760; 96365; 96366; 96375; 99285

== ENCOUNTER 2022-05-21 19:44 | Emergency (ER) | payer MEDICARE, OTHER ==
[2022-05-21 23:21] VITALS: BP 177/83; PULSE 60; RESP 16; TEMP 98.2
--- NOTE | 2022-05-22 01:44 | ED ---
Male Urogenital HPI - General Chief complaint: Urogenital Stated complaint: Catheter Time Seen by Provider: 05/22/22 00:43 Source: patient, family, RN notes reviewed Mode of arrival: ambulatory Limitations: no limitations - History of Present Illness Initial comments: This is a 77-year-old male presents emergency department for hematuria and a leaking catheter bag. Patient states that this morning he noticed blood in his urinary catheter bag and it was also leaking. He does have an appointment with Dr. Ardon, urology, on 05/23, for a cystoscopy. He was admitted from 04/29- 05/10 for an acute UTI with failed outpatient treatment and hematuria. He was treated with Zosyn while admitted. Patient states that he is currently taking an antibiotic but is not sure which one, and I am unable to find record of an antibiotic prescribed on discharge. Other than the hematuria, patient states that he feels well and has no complaints. Denies any fevers, chills, sore throat, cough, dyspnea, chest pain, palpitations, abdominal pain, nausea, vomiting, diarrhea, back pain, or headaches. MD Complaint: other (hematuria) - Related Data Home Medications Medication Instructions Recorded Confirmed Aspirin [Lane Aspirin EC] 81 mg PO DAILY 01/07/19 04/29/22 Atorvastatin [Lipitor] 20 mg PO DAILY 01/07/19 04/29/22 Finasteride [Proscar] 5 mg PO DAILY 01/07/19 04/29/22 Sertraline HCl [Zoloft] 50 mg PO DAILY 02/05/19 04/29/22 Tamsulosin [Flomax] 0.4 mg PO HS 07/06/19 04/29/22 Acetaminophen [Tylenol Arthritis] 650 mg PO HS 07/27/20 04/29/22 Ferrous Sulfate [Feosol] 325 mg PO DAILY 07/27/20 04/29/22 Gabapentin [Neurontin] 100 mg PO BID 12/06/20 04/29/22 Nitroglycerin Sl Tabs [Nitrostat] 0.4 mg SL Q5M PRN 02/19/21 04/29/22 Ascorbic Acid [Vitamin C] 500 mg PO DAILY 09/14/21 04/29/22 Cholecalciferol (Vitamin D3) 125 mcg PO DAILY 09/14/21 04/29/22 [Vitamin D3 (125 MCG = 5,000 IU)] Insulin Glargine,Hum.rec.anlog 30 unit SQ HS 09/14/21 04/29/22 [Lantus Solostar Pen] Albuterol Inhaler [Ventolin Hfa 2 puff INHALATION RT-Q6H PRN 04/29/22 04/29/22 Inhaler] Ibuprofen [Motrin Ib] 600 mg PO Q8H PRN 04/29/22 04/29/22 Rivaroxaban [Xarelto] 20 mg PO DAILY 04/29/22 04/29/22 Previous Rx's Medication Instructions Recorded Acetaminophen Tab [Tylenol] 650 mg PO Q6HR PRN tab 05/10/22 Calcium Carbonate [Tums] 1,000 mg PO QID PRN tab 05/10/22 Furosemide [Lasix] 20 mg PO DAILY 30 Days #30 tab 05/10/22 Ipratropium-Albuterol Nebulize 3 ml INHALATION RT-Q4H PRN each 05/10/22 [Duoneb 0.5 mg-3 mg/3 ml Soln] Ipratropium-Albuterol Nebulize 3 ml INHALATION RT-QID 30 Days 05/10/22 [Duoneb 0.5 mg-3 mg/3 ml Soln] #120 each Isosorbide Mononitrate ER [Imdur] 30 mg PO DAILY #30 tab 05/10/22 Metoprolol Tartrate [Lopressor] 12.5 mg PO BID 30 Days #60 tab 05/10/22 predniSONE 10 mg PO DIRECTED #30 tab 05/10/22 Nitrofurantoin Monohyd/M-Cryst 100 mg PO Q12HR 5 Days #10 cap 05/22/22 [Macrobid] Allergies Allergy/AdvReac Type Severity Reaction Status Date / Time No Known Allergies Allergy Verified 05/21/22 23:22 Review of Systems ROS Statement: Those systems with pertinent positive or pertinent negative responses have been documented in the HPI. ROS Other: All systems not noted in ROS Statement are negative. Past Medical History Past Medical History: Coronary Artery Disease (CAD), Cancer, COPD, Diabetes Mellitus, Hyperlipidemia, Hypertension, Myocardial Infarction ([place]), Prostate Disorder Additional Past Medical History / Comment(s): prostate cancer with radiation > 20 years ago, nstemi, wears a brief incont urine/stool Last Myocardial Infarction Date:: 2018 History of Any Multi-Drug Resistant Organisms: ESBL, MRSA Date of last positivie culture/infection: 04/29/22 ESBL; 10/27/18 MRSA MDRO Source:: Urine-ESBL; Back-MRSA Past Surgical History: Coronary Bypass/CABG Additional Past Surgical History / Comment(s): 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,prostate bx, triple bypass 2017, bronchoscopy, picc line pt stated since removed Past Anesthesia/Blood Transfusion Reactions: No Reported Reaction Type of Cardiac Device: Permanent Pacemaker Device Placement Date:: 12/08/20 Past Psychological History: No Psychological Hx Reported Smoking Status: Former smoker Past Alcohol Use History: None Reported Past Drug Use History: None Reported - Past Family History Father Additional Family Medical History / Comment(s): old age Mother Family Medical History: Coronary Artery Disease (CAD), Diabetes Mellitus Additional Family Medical History / Comment(s): CABG General Exam Limitations: no limitations General appearance: alert, in no apparent distress Head exam: Present: atraumatic, normocephalic, normal inspection Respiratory exam: Present: normal lung sounds bilaterally. Absent: respiratory distress, wheezes, rales, rhonchi, stridor Cardiovascular Exam: Present: regular rate, normal rhythm, normal heart sounds. Absent: systolic murmur, diastolic murmur, rubs, gallop, clicks GI/Abdominal exam: Present: soft, normal bowel sounds. Absent: distended, tenderness, guarding, rebound, rigid Neurological exam: Present: alert, oriented X3, CN II-XII intact Psychiatric exam: Present: normal affect, normal mood Skin exam: Present: warm, dry, intact, normal color. Absent: rash Course Vital Signs 05/21/22 23:18 Temperature 98.2 F Pulse Rate 60 Respiratory 16 Rate Blood Pressure 177/83 O2 Sat by Pulse 96 Oximetry Medical Decision Making - Medical Decision Making This is a 77-year-old male who presents to the emergency department for hematuria. Urinalysis continues to be positive for a urinary tract infection. Urine culture from 04/29/22 was reviewed. The only oral medication this was found to be sensitive to was Macrobid. The other options were IV antibiotics. I initially planned to give the patient a dose of cefoxitin in the emergency department, as Macrobid is not traditionally the preferred option for complicated UTIs, especially in patients with indwelling Suero catheters. Cefoxitin was listed with an IM option, which I initially ordered as the patient wanted to be discharged as soon as possible. Pharmacy advised against giving cefoxitin IM, and advised IVPB Patient declined and requested discharge home. Prescription for Macrobid sent to his pharmacy and he will follow up with Dr. Ardon, urology, as scheduled on 05/23. His Suero catheter and Suero catheter bag were both changed while he was in the emergency department as well. Return precautions reviewed in depth, the patient is instructed to return to the emergency department with any new, worsening, or concerning symptoms. Patient verbalized understanding. This case was discussed in detail with the attending ED physician. Presentation, findings, and treatment plan discussed in detail as well. - Lab Data Lab Results 05/22/22 Range/Units 00:34 Urine Color Light Red Urine Appearance Cloudy (Clear) Urine pH 6.5 (5.0-8.0) Ur Specific [place] 1.008 (1.001-1.035) Urine Protein 2+ H (Negative) Urine Glucose (UA) 4+ H (Negative) Urine Ketones Negative (Negative) Urine Blood Large H (Negative) Urine Nitrite Positive (Negative) Urine Bilirubin Negative (Negative) Urine Urobilinogen <2.0 (<2.0) mg/dL Ur Leukocyte Esterase Large H (Negative) Urine RBC >182 H (0-5) /hpf Urine WBC 52 H (0-5) /hpf Urine WBC Clumps Rare H (None) /hpf Urine Bacteria Occasional H (None) /hpf Disposition Clinical Impression: UTI (urinary tract infection) due to urinary indwelling Suero catheter Disposition: HOME SELF-CARE Instructions (If sedation given, give patient instructions): Urinary Tract Infection in Men (ED) Additional Instructions: Return to the emergency department with any new, worsening, or concerning symptoms. Take the antibiotic as prescribed for 5 days. Follow-up with Dr. Ardon, urology, as scheduled on . Prescriptions: Nitrofurantoin Monohyd/M-Cryst [Macrobid] 100 mg PO Q12HR 5 Days #10 cap Is patient prescribed a controlled substance at d/c from ED?: No Referrals: Della Grant MD [Primary Care Provider] - 1-2 days
[2022-05-22 01:47] LABS: Appearance,Urine Cloudy (Clear); Bacteria,Urine Occasional /hpf; Bilirubin,Urine Negative (Negative); Blood,Urine Large (Negative); Color,Urine Light Red; Glucose,Urine (UA) 4+ (Negative); Ketones,Urine Negative (Negative); Leukocyte Esterase,Urine Large (Negative); Nitrite,Urine Positive (Negative); PH, Urine 6.5 (5.0-8.0); Protein,Urine 2+ (Negative); RBC,Urine >182 /hpf (0-5); Specific Gravity,Urine 1.008 (1.001-1.035); Urobilinogen,Urine <2.0 mg/dL (<2.0); WBC,Urine 52 /hpf (0-5)
[2022-05-22] MEDS ORDERED: cefOXitin 2 GM VIAL IM ONE (02:15)
== END 2022-05-22 03:00 | disposition home or self-care (01) ==
LOC: EC 19:44
DX: T83.511A Infection and inflammatory reaction due to indwelling urethral catheter, initial encounter (principal); E11.9 Type 2 diabetes mellitus without complications; I10 Essential (primary) hypertension; I25.2 Old myocardial infarction; I25.10 Atherosclerotic heart disease of native coronary artery without angina pectoris; J44.9 Chronic obstructive pulmonary disease, unspecified; E78.5 Hyperlipidemia, unspecified; Z87.891 Personal history of nicotine dependence; Z79.01 Long term (current) use of anticoagulants; Z79.82 Long term (current) use of aspirin; Z79.51 Long term (current) use of inhaled steroids; Z79.4 Long term (current) use of insulin; Z79.899 Other long term (current) drug therapy
CPT/HCPCS: 81001; 87086; 99283

== ENCOUNTER → 2022-06-17 | Outpatient (CLI) | payer MEDICARE, OTHER ==
[2022-06-17 14:21] LABS: HCT 35.5 % (39.6-50.0); HGB 10.6 g/dL (13.0-17.0); MCH 28.3 pg (27.0-32.0); MCHC 29.9 g/dL (32.0-37.0); MCV 94.9 fL (80.0-97.0); Mean Platelet Volume 10.7 fL (9.5-12.2); NRBC Per 100 WBC 0 /100 WBCS (0.0-0.0); Platelet Count 158 X 10*3/uL (140-440); RBC 3.74 X 10*6/uL (4.40-5.60); RDW 14.5 % (11.5-14.5); WBC 5.51 X 10*3/uL (4.50-10.00)
[2022-06-17 14:49] LABS: ALT 13 U/L (10-49); AST 13 U/L (14-35); Alkaline Phosphatase 102 U/L (41-126); Total Protein 5.9 g/dL (6.2-8.2)
[2022-06-17 14:52] LABS: Chol/HDL Ratio 2.93 Ratio; LDL Cholesterol,Calculated 48.8 mg/dL (0.0-131.0)
== END | disposition home or self-care (01) ==
LOC: LABWHC1 09:23
PROVIDERS: ATTEND Family Medicine
DX: E10.9 Type 1 diabetes mellitus without complications (principal)
CPT/HCPCS: 36415; 80061; 82247; 83036; 84075; 84155; 84443; 84450; 84460; 85027

== ENCOUNTER 2022-06-22 20:00 | Emergency (ER) | payer MEDICARE, OTHER ==
[2022-06-22 20:20] VITALS: BP 160/76; PULSE 61; RESP 18; TEMP 98.1
--- NOTE | 2022-06-22 23:02 | ED ---
General Adult HPI - General Chief complaint: Urogenital Stated complaint: Male UG Time Seen by Provider: 06/22/22 21:35 Source: patient, RN notes reviewed Mode of arrival: wheelchair Limitations: no limitations - History of Present Illness Initial comments: 77-year-old male presents to the emergency department for evaluation of hematuria. States he has had of recurrent issue with urinary tract infections. States he was on an antibiotic a month ago and took it as prescribed. Complains of painful urination and some difficulty passing urine. Denies fever, chills, headache, chest pain, shortness of breath, abdominal pain, nausea, vomiting, diarrhea, or dysuria. - Related Data Home Medications Medication Instructions Recorded Confirmed Aspirin [[place] Aspirin EC] 81 mg PO DAILY 01/07/19 04/29/22 Atorvastatin [Lipitor] 20 mg PO DAILY 01/07/19 04/29/22 Finasteride [Proscar] 5 mg PO DAILY 01/07/19 04/29/22 Sertraline HCl [Zoloft] 50 mg PO DAILY 02/05/19 04/29/22 Tamsulosin [Flomax] 0.4 mg PO HS 07/06/19 04/29/22 Acetaminophen [Tylenol Arthritis] 650 mg PO HS 07/27/20 04/29/22 Ferrous Sulfate [Feosol] 325 mg PO DAILY 07/27/20 04/29/22 Gabapentin [Neurontin] 100 mg PO BID 12/06/20 04/29/22 Nitroglycerin Sl Tabs [Nitrostat] 0.4 mg SL Q5M PRN 02/19/21 04/29/22 Ascorbic Acid [Vitamin C] 500 mg PO DAILY 09/14/21 04/29/22 Cholecalciferol (Vitamin D3) 125 mcg PO DAILY 09/14/21 04/29/22 [Vitamin D3 (125 MCG = 5,000 IU)] Insulin Glargine,Hum.rec.anlog 30 unit SQ HS 09/14/21 04/29/22 [Lantus Solostar Pen] Albuterol Inhaler [Ventolin Hfa 2 puff INHALATION RT-Q6H PRN 04/29/22 04/29/22 Inhaler] Ibuprofen [Motrin Ib] 600 mg PO Q8H PRN 04/29/22 04/29/22 Rivaroxaban [Xarelto] 20 mg PO DAILY 04/29/22 04/29/22 Previous Rx's Medication Instructions Recorded Acetaminophen Tab [Tylenol] 650 mg PO Q6HR PRN tab 05/10/22 Calcium Carbonate [Tums] 1,000 mg PO QID PRN tab 05/10/22 Furosemide [Lasix] 20 mg PO DAILY 30 Days #30 tab 05/10/22 Ipratropium-Albuterol Nebulize 3 ml INHALATION RT-Q4H PRN each 05/10/22 [Duoneb 0.5 mg-3 mg/3 ml Soln] Ipratropium-Albuterol Nebulize 3 ml INHALATION RT-QID 30 Days 05/10/22 [Duoneb 0.5 mg-3 mg/3 ml Soln] #120 each Isosorbide Mononitrate ER [Imdur] 30 mg PO DAILY #30 tab 05/10/22 Metoprolol Tartrate [Lopressor] 12.5 mg PO BID 30 Days #60 tab 05/10/22 predniSONE 10 mg PO DIRECTED #30 tab 05/10/22 Nitrofurantoin Monohyd/M-Cryst 100 mg PO Q12HR 5 Days #10 cap 05/22/22 [Macrobid] Nitrofurantoin Monohyd/M-Cryst 100 mg PO Q12HR 5 Days #10 cap 06/23/22 [Macrobid] Allergies Allergy/AdvReac Type Severity Reaction Status Date / Time No Known Allergies Allergy Verified 05/21/22 23:22 Review of Systems ROS Statement: Those systems with pertinent positive or pertinent negative responses have been documented in the HPI. ROS Other: All systems not noted in ROS Statement are negative. Past Medical History Past Medical History: Coronary Artery Disease (CAD), Cancer, COPD, Diabetes Mellitus, Hyperlipidemia, Hypertension, Myocardial Infarction ([place]), Prostate Disorder Additional Past Medical History / Comment(s): prostate cancer with radiation > 20 years ago, nstemi, wears a brief incont urine/stool Last Myocardial Infarction Date:: 2017 History of Any Multi-Drug Resistant Organisms: ESBL, MRSA Date of last positivie culture/infection: 04/29/22 ESBL; 10/27/18 MRSA MDRO Source:: Urine-ESBL; Back-MRSA Past Surgical History: Coronary Bypass/CABG Additional Past Surgical History / Comment(s): 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,prostate bx, triple bypass 2018, bronchoscopy, picc line pt stated since removed Past Anesthesia/Blood Transfusion Reactions: No Reported Reaction Type of Cardiac Device: Permanent Pacemaker Device Placement Date:: 12/08/20 Past Psychological History: No Psychological Hx Reported Smoking Status: Former smoker Past Alcohol Use History: None Reported Past Drug Use History: None Reported - Past Family History Father Additional Family Medical History / Comment(s): old age Mother Family Medical History: Coronary Artery Disease (CAD), Diabetes Mellitus Additional Family Medical History / Comment(s): CABG General Exam Limitations: no limitations General appearance: alert, in no apparent distress, other (Well-developed, well- nourished male in no acute distress. Initial temperature 98.1, pulse 61, respirations 18, blood pressure 160/76, pulse ox 97% on room air.) ENT exam: Present: normal oropharynx, mucous membranes moist Respiratory exam: Present: normal lung sounds bilaterally, other (Patient wears oxygen at home via nasal cannula at 2 L.). Absent: respiratory distress, wheezes, rales, rhonchi, stridor Cardiovascular Exam: Present: regular rate, normal rhythm, normal heart sounds. Absent: systolic murmur, diastolic murmur, rubs, gallop, clicks GI/Abdominal exam: Present: soft, normal bowel sounds. Absent: distended, tenderness, guarding, rebound, rigid exam: Present: other (Dark red urine in brief. No urethral trauma or irritation noted.). Absent: scrotal swelling External exam: Absent: swelling, lesions, lacerations, ecchymosis Neurological exam: Present: alert, oriented X3 Psychiatric exam: Present: normal affect, normal mood Course Vital Signs 06/22/22 20:15 Temperature 98.1 F Pulse Rate 61 Respiratory 18 Rate Blood Pressure 160/76 O2 Sat by Pulse 97 Oximetry Medical Decision Making - Medical Decision Making This is a 77-year-old male with a past medical history of recurrent UTIs who presents to the emergency department for evaluation of hematuria, onset this evening. Upon exam, patient is well-appearing and in no acute distress. Vital signs are stable. Urine is dark red in appearance. He is passing urine without difficulty. Laboratory studies were obtained and are unremarkable. Hemoglobin of 10.1 is stable for him. Urinalysis shows urine rbc>182 and urine WBC 52. Based on patient's previous urine culture sensitivity report, he will be prescribed nitrofurantoin and encouraged to follow up with his PCP for a recheck this week. Encouraged increase fluids. Return parameters discussed in detail. Patient verbalizes understanding and agrees with this plan. Attending: Tigre dubose. - Lab Data Result diagrams: 06/22/22 23:40 06/22/22 23:40 Lab Results 06/22/22 06/22/22 06/22/22 Range/Units 23:00 23:40 23:40 WBC 5.9 (3.8-10.6) k/uL RBC 3.53 L (4.30-5.90) m/uL Hgb 10.1 L (13.0-17.5) gm/dL Hct 33.2 L (39.0-53.0) % MCV 94.0 (80.0-100.0) fL MCH 28.6 (25.0-35.0) pg MCHC 30.5 L (31.0-37.0) g/dL RDW 14.8 (11.5-15.5) % Plt Count 161 (150-450) k/uL MPV 8.0 Neutrophils % 80 % Lymphocytes % 12 % Monocytes % 5 % Eosinophils % 2 % Basophils % 1 % Neutrophils # 4.7 (1.3-7.7) k/uL Lymphocytes # 0.7 L (1.0-4.8) k/uL Monocytes # 0.3 (0-1.0) k/uL Eosinophils # 0.1 (0-0.7) k/uL Basophils # 0.0 (0-0.2) k/uL Hypochromasia Marked Sodium 138 (137-145) mmol/L Potassium 4.3 (3.5-5.1) mmol/L Chloride 104 (98-107) mmol/L Carbon Dioxide 28 (22-30) mmol/L Anion Gap 6 mmol/L BUN 17 (9-20) mg/dL Creatinine 1.00 (0.66-1.25) mg/dL Est GFR (CKD-EPI)AfAm 84 (>60 ml/min/1.73 sqM) Est GFR (CKD-EPI)NonAf 72 (>60 ml/min/1.73 sqM) Glucose 124 H (74-99) mg/dL Calcium 8.9 (8.4-10.2) mg/dL Urine Color Dark Red Urine Appearance Bloody (Clear) Urine RBC >182 H (0-5) /hpf Urine WBC 52 H (0-5) /hpf Urine Mucus Few H (None) /hpf Disposition Clinical Impression: Hematuria, Acute cystitis Disposition: HOME SELF-CARE Condition: Stable Instructions (If sedation given, give patient instructions): Urinary Tract Infection in Men (ED) Additional Instructions: You are being prescribed an antibiotic to treat a UTI. It is important that you increase your intake of fluids. Youo must follow up with your urologist for a recheck. Return to the emergency department with any new, worsening, or concerning symptoms. Prescriptions: Nitrofurantoin Monohyd/M-Cryst [Macrobid] 100 mg PO Q12HR 5 Days #10 cap Is patient prescribed a controlled substance at d/c from ED?: No Referrals: Della Grant MD [Primary Care Provider] - 1-2 days Time of Disposition: 01:04
[2022-06-22 23:36] LABS: Mucus,Urine Few /hpf; WBC,Urine 52 /hpf (0-5)
[2022-06-22 23:52] LABS: Basophils % (A) 1 %; Eosinophils # (A) 0.1 k/uL (0-0.7); Eosinophils % (A) 2 %; HCT 33.2 % (39.0-53.0); HGB 10.1 gm/dL (13.0-17.5); Hypochromasia Marked; Lymphocytes # (A) 0.7 k/uL (1.0-4.8); Lymphocytes % (A) 12 %; MCH 28.6 pg (25.0-35.0); MCHC 30.5 g/dL (31.0-37.0); Monocytes # (A) 0.3 k/uL (0-1.0); Monocytes % (A) 5 %; Neutrophils # (A) 4.7 k/uL (1.3-7.7); Neutrophils % (A) 80 %; Platelet Count 161 k/uL (150-450); RBC 3.53 m/uL (4.30-5.90); RDW 14.8 % (11.5-15.5); WBC 5.9 k/uL (3.8-10.6)
[2022-06-22 23:55] LABS: Appearance,Urine Bloody (Clear); Color,Urine Dark Red
[2022-06-22 23:56] LABS: RBC,Urine >182 /hpf (0-5)
[2022-06-22 23:59] LABS: Calcium 8.9 mg/dL (8.4-10.2); Potassium 4.3 mmol/L (3.5-5.1)
[2022-06-23] MEDS ORDERED: NITROFURANTOIN MONOHYD/M-CRYST 100 MG CAP PO STA (01:01)
== END 2022-06-23 01:32 | disposition home or self-care (01) ==
LOC: EC 20:00
DX: N30.01 Acute cystitis with hematuria (principal); I25.10 Atherosclerotic heart disease of native coronary artery without angina pectoris; J44.9 Chronic obstructive pulmonary disease, unspecified; E11.9 Type 2 diabetes mellitus without complications; E78.5 Hyperlipidemia, unspecified; I10 Essential (primary) hypertension; I25.2 Old myocardial infarction; Z87.891 Personal history of nicotine dependence; Z79.82 Long term (current) use of aspirin; Z79.4 Long term (current) use of insulin; Z79.51 Long term (current) use of inhaled steroids; Z79.01 Long term (current) use of anticoagulants; Z79.899 Other long term (current) drug therapy
CPT/HCPCS: 36415; 80048; 81001; 85025; 87077; 87086; 87186; 99283

== ENCOUNTER 2022-07-13 23:06 | Observation (INO) | payer MEDICARE, OTHER ==
[2022-07-13] MEDS ORDERED: IPRATROPIUM-ALBUTEROL 3 ML NEB INHALATION STA (23:34)
--- NOTE | 2022-07-13 23:35 | ED ---
Extremity Problem HPI - General Chief complaint: Extremity Problem,Nontraumatic Stated complaint: Right arm numbness Time Seen by Provider: 07/13/22 23:23 Source: patient Mode of arrival: wheelchair - Related Data Home Medications Medication Instructions Recorded Confirmed Aspirin [[place] Aspirin EC] 81 mg PO DAILY 01/07/19 04/29/22 Atorvastatin [Lipitor] 20 mg PO DAILY 01/07/19 04/29/22 Finasteride [Proscar] 5 mg PO DAILY 01/07/19 04/29/22 Sertraline HCl [Zoloft] 50 mg PO DAILY 02/05/19 04/29/22 Tamsulosin [Flomax] 0.4 mg PO HS 07/06/19 04/29/22 Acetaminophen [Tylenol Arthritis] 650 mg PO HS 07/27/20 04/29/22 Ferrous Sulfate [Feosol] 325 mg PO DAILY 07/27/20 04/29/22 Gabapentin [Neurontin] 100 mg PO BID 12/06/20 04/29/22 Nitroglycerin Sl Tabs [Nitrostat] 0.4 mg SL Q5M PRN 02/19/21 04/29/22 Ascorbic Acid [Vitamin C] 500 mg PO DAILY 09/14/21 04/29/22 Cholecalciferol (Vitamin D3) 125 mcg PO DAILY 09/14/21 04/29/22 [Vitamin D3 (125 MCG = 5,000 IU)] Insulin Glargine,Hum.rec.anlog 30 unit SQ HS 09/14/21 04/29/22 [Lantus Solostar Pen] Albuterol Inhaler [Ventolin Hfa 2 puff INHALATION RT-Q6H PRN 04/29/22 04/29/22 Inhaler] Ibuprofen [Motrin Ib] 600 mg PO Q8H PRN 04/29/22 04/29/22 Rivaroxaban [Xarelto] 20 mg PO DAILY 04/29/22 04/29/22 Previous Rx's Medication Instructions Recorded Acetaminophen Tab [Tylenol] 650 mg PO Q6HR PRN tab 05/10/22 Calcium Carbonate [Tums] 1,000 mg PO QID PRN tab 05/10/22 Furosemide [Lasix] 20 mg PO DAILY 30 Days #30 tab 05/10/22 Ipratropium-Albuterol Nebulize 3 ml INHALATION RT-Q4H PRN each 05/10/22 [Duoneb 0.5 mg-3 mg/3 ml Soln] Ipratropium-Albuterol Nebulize 3 ml INHALATION RT-QID 30 Days 05/10/22 [Duoneb 0.5 mg-3 mg/3 ml Soln] #120 each Isosorbide Mononitrate ER [Imdur] 30 mg PO DAILY #30 tab 05/10/22 Metoprolol Tartrate [Lopressor] 12.5 mg PO BID 30 Days #60 tab 05/10/22 predniSONE 10 mg PO DIRECTED #30 tab 05/10/22 Nitrofurantoin Monohyd/M-Cryst 100 mg PO Q12HR 5 Days #10 cap 05/22/22 [Macrobid] Nitrofurantoin Monohyd/M-Cryst 100 mg PO Q12HR 5 Days #10 cap 06/23/22 [Macrobid] Allergies Allergy/AdvReac Type Severity Reaction Status Date / Time No Known Allergies Allergy Verified 07/13/22 23:19 Review of Systems ROS Statement: Those systems with pertinent positive or pertinent negative responses have been documented in the HPI. ROS Other: All systems not noted in ROS Statement are negative. Past Medical History Past Medical History: Coronary Artery Disease (CAD), Cancer, COPD, Diabetes Mellitus, Hyperlipidemia, Hypertension, Myocardial Infarction ([place]), Prostate Disorder Additional Past Medical History / Comment(s): prostate cancer with radiation > 20 years ago, nstemi, wears a brief incont urine/stool Last Myocardial Infarction Date:: 2017 History of Any Multi-Drug Resistant Organisms: ESBL, MRSA Date of last positivie culture/infection: 04/29/22 ESBL; 10/27/18 MRSA MDRO Source:: Urine-ESBL; Back-MRSA Past Surgical History: Coronary Bypass/CABG Additional Past Surgical History / Comment(s): 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,prostate bx, triple bypass 2017, bronchoscopy, picc line pt stated since removed Past Anesthesia/Blood Transfusion Reactions: No Reported Reaction Type of Cardiac Device: Permanent Pacemaker Device Placement Date:: 12/08/20 Past Psychological History: No Psychological Hx Reported Smoking Status: Former smoker Past Alcohol Use History: None Reported Past Drug Use History: None Reported - Past Family History Father Additional Family Medical History / Comment(s): old age Mother Family Medical History: Coronary Artery Disease (CAD), Diabetes Mellitus Additional Family Medical History / Comment(s): CABG Course Vital Signs 07/13/22 07/14/22 07/14/22 23:16 00:26 00:38 Temperature 98.1 F Pulse Rate 50 L 50 L 50 L Respiratory 19 Rate Blood Pressure 151/56 O2 Sat by Pulse 94 L Oximetry Medical Decision Making - Lab Data Result diagrams: 07/14/22 00:02 07/14/22 00:02 Lab Results 07/14/22 07/14/22 07/14/22 Range/Units 00:02 00:02 00:02 WBC 7.1 (3.8-10.6) k/uL RBC 3.54 L (4.30-5.90) m/uL Hgb 10.3 L (13.0-17.5) gm/dL Hct 33.2 L (39.0-53.0) % MCV 94.0 (80.0-100.0) fL MCH 29.1 (25.0-35.0) pg MCHC 30.9 L (31.0-37.0) g/dL RDW 15.8 H (11.5-15.5) % Plt Count 187 (150-450) k/uL MPV 9.3 Neutrophils % 82 % Lymphocytes % 9 % Monocytes % 5 % Eosinophils % 2 % Basophils % 0 % Neutrophils # 5.8 (1.3-7.7) k/uL Lymphocytes # 0.7 L (1.0-4.8) k/uL Monocytes # 0.3 (0-1.0) k/uL Eosinophils # 0.2 (0-0.7) k/uL Basophils # 0.0 (0-0.2) k/uL Hypochromasia Marked Sodium 136 L (137-145) mmol/L Potassium 4.9 (3.5-5.1) mmol/L Chloride 101 (98-107) mmol/L Carbon Dioxide 26 (22-30) mmol/L Anion Gap 9 mmol/L BUN 28 H (9-20) mg/dL Creatinine 1.16 (0.66-1.25) mg/dL Est GFR (CKD-EPI)AfAm 70 (>60 ml/min/1.73 sqM) Est GFR (CKD-EPI)NonAf 61 (>60 ml/min/1.73 sqM) Glucose 221 H (74-99) mg/dL Plasma Lactic Acid Chauncey 1.1 (0.7-2.0) mmol/L Calcium 9.0 (8.4-10.2) mg/dL Magnesium 1.7 (1.6-2.3) mg/dL Total Bilirubin 0.3 (0.2-1.3) mg/dL AST 23 (17-59) U/L ALT 13 (4-49) U/L Alkaline Phosphatase 125 (38-126) U/L Troponin I (0.000-0.034) ng/mL Total Protein 6.0 L (6.3-8.2) g/dL Albumin 3.5 (3.5-5.0) g/dL 07/14/22 Range/Units 00:02 WBC (3.8-10.6) k/uL RBC (4.30-5.90) m/uL Hgb (13.0-17.5) gm/dL Hct (39.0-53.0) % MCV (80.0-100.0) fL MCH (25.0-35.0) pg MCHC (31.0-37.0) g/dL RDW (11.5-15.5) % Plt Count (150-450) k/uL MPV Neutrophils % % Lymphocytes % % Monocytes % % Eosinophils % % Basophils % % Neutrophils # (1.3-7.7) k/uL Lymphocytes # (1.0-4.8) k/uL Monocytes # (0-1.0) k/uL Eosinophils # (0-0.7) k/uL Basophils # (0-0.2) k/uL Hypochromasia Sodium (137-145) mmol/L Potassium (3.5-5.1) mmol/L Chloride (98-107) mmol/L Carbon Dioxide (22-30) mmol/L Anion Gap mmol/L BUN (9-20) mg/dL Creatinine (0.66-1.25) mg/dL Est GFR (CKD-EPI)AfAm (>60 ml/min/1.73 sqM) Est GFR (CKD-EPI)NonAf (>60 ml/min/1.73 sqM) Glucose (74-99) mg/dL Plasma Lactic Acid Chauncey (0.7-2.0) mmol/L Calcium (8.4-10.2) mg/dL Magnesium (1.6-2.3) mg/dL Total Bilirubin (0.2-1.3) mg/dL AST (17-59) U/L ALT (4-49) U/L Alkaline Phosphatase (38-126) U/L Troponin I 0.032 (0.000-0.034) ng/mL Total Protein (6.3-8.2) g/dL Albumin (3.5-5.0) g/dL - EKG Data -: EKG Interpreted by Me (EKG is paced rate 84 [place] 142 QRS 135 QTC 420) Disposition Clinical Impression: COPD (chronic obstructive pulmonary disease), COPD exacerbation, Chest pain Disposition: ADMITTED IP TO THIS HOSP Condition: Fair Is patient prescribed a controlled substance at d/c from ED?: No Referrals: Della Grant MD [Primary Care Provider] - 1-2 days
--- NOTE | 2022-07-14 00:12 | XR ---
EXAMINATION TYPE: XR chest 1V portable DATE OF EXAM: 07/14/2022 COMPARISON: 05/09/2022 HISTORY: Short of breath TECHNIQUE: FINDINGS: There is some blunting of the right costophrenic angle. There is elevated right diaphragm. There is linear density right lung base. Heart is enlarged. No heart failure. There are sternal wires . There is left axillary pacemaker. IMPRESSION: There is atelectasis right lung base without change compared to the old exam. No heart fa ilure.
[2022-07-14 00:30] LABS: Albumin 3.5 g/dL (3.5-5.0); Basophils % (A) 0 %; Eosinophils # (A) 0.2 k/uL (0-0.7); Eosinophils % (A) 2 %; HCT 33.2 % (39.0-53.0); HGB 10.3 gm/dL (13.0-17.5); Hypochromasia Marked; Lymphocytes # (A) 0.7 k/uL (1.0-4.8); Lymphocytes % (A) 9 %; MCH 29.1 pg (25.0-35.0); MCHC 30.9 g/dL (31.0-37.0); Magnesium 1.7 mg/dL (1.6-2.3); Mean Platelet Volume 9.3; Monocytes # (A) 0.3 k/uL (0-1.0); Monocytes % (A) 5 %; Neutrophils # (A) 5.8 k/uL (1.3-7.7); Neutrophils % (A) 82 %; Platelet Count 187 k/uL (150-450); Potassium 4.9 mmol/L (3.5-5.1); RBC 3.54 m/uL (4.30-5.90); RDW 15.8 % (11.5-15.5); Total Bilirubin 0.3 mg/dL (0.2-1.3); WBC 7.1 k/uL (3.8-10.6)
[2022-07-14] MEDS ORDERED: MORPHINE SULFATE 4 MG/ML SYRINGE IV PRN (00:48)
[2022-07-14] MEDS ORDERED: NALOXONE 0.4 MG/ML 1 ML VIAL IV PRN (00:48)
[2022-07-14] MEDS ORDERED: ONDANSETRON 4 MG/2 ML VIAL IVP PRN (00:48)
[2022-07-14 01:07] LABS: INR 0.9 (<1.2); Partial Thromboplastin Time 22.4 sec (22.0-30.0); Prothrombin Time 10.3 sec (9.0-12.0)
[2022-07-14] MEDS: SODIUM CHLORIDE 0.9% 1,000 ML IV SCH ×2 (02:59→23:51)
[2022-07-14] MEDS: ALBUTEROL NEBULIZED 2.5 MG/3 ML INHALATION STA ×3 (03:00→11:04)
[2022-07-14] MEDS: ALBUTEROL NEBULIZED 1.25 MG/3 ML INHALATION SCH ×5 (07:24→19:10)
[2022-07-14] MEDS: ISOSORBIDE MONONITRATE ER 30 MG TAB.ER.24H PO SCH (13:20)
[2022-07-14] MEDS: ASPIRIN 81 MG PO SCH (13:20)
[2022-07-14] MEDS: ATORVASTATIN 20 MG TAB PO SCH (13:20)
[2022-07-14] MEDS: FUROSEMIDE 10 MG/ML 2 ML VIAL IV SCH (17:55)
[2022-07-14] MEDS: METOPROLOL TARTRATE 12.5 MG TAB PO SCH (20:36)
[2022-07-14] MEDS ORDERED: INSULIN DETEMIR (LEVEMIR) 100 UNIT/ML SYR SQ SCH (21:00)
[2022-07-14] MEDS ORDERED: TAMSULOSIN 0.4 MG CAP.ER.24H PO SCH (21:00)
[2022-07-14] MEDS ORDERED: ACETAMINOPHEN TAB 325 MG TAB PO PRN (22:08)
[2022-07-14 22:12] LABS: Glucose,Whole Blood 269 mg/dL (70-110)
[2022-07-14] MEDS ORDERED: DEXTROSE 50% SYRINGE 50 ML IVP PRN ×2 (22:31)
[2022-07-14] MEDS: SERTRALINE 50 MG TAB PO SCH (22:34)
[2022-07-14] MEDS: GABAPENTIN 100 MG CAP PO SCH (22:48)
[2022-07-14] MEDS: INSULIN ASPART (NovoLOG) 100 UNIT/ML VIAL SQ SCH (22:49)
--- NOTE | 2022-07-15 01:40 | P.HPIM ---
History of Present Illness H&P Date: 07/14/22 Chief Complaint: SOB Patient is a 77-year-old male with a known history of coronary artery disease status post CABG, hypertension, hyperlipidemia, history of HI, prostate cancer s/p radiation and history of ESBL urinary tract infection, history of pulmonary pacemaker placement and prior history of smoking presents to ER with complaints of right arm pain and numbness. Patient states that his symptoms started this morning. He is also complaining of worsening shortness of breath and leg swelling. Patient had 2D echocardiogram done on 05/06/2022 showed preserved LV ejection fraction 45 to 50% and valvular function is difficult to assess. Patient was recently discharged from the hospital on 04/29/2022 and was treated for acute urinary tract infection with ESBL and acute on chronic CHF and hematuria. Chest x-ray on admission showed there is atelectasis in the right lung base without change compared to old exam. No heart failure. EKG showed ventricular paced rhythm. Laboratory data showed WBC 7.1 hemoglobin 10.3 and platelets 187 Sodium 136 potassium 4.9 chloride 101 bicarb is 26 BUN 28 and creatinine 1.16 and blood sugar is 221 proBNP is 3380 which is elevated compared to recent admission Troponin 0.032, 0.034 and 0.024 Albumin 3.5 and magnesium 1.7 Review of Systems Constitutional: Patient denies any fever or chills . no Generalized weakness. Abdomen: Patient denied any nausea or vomiting or abd. pain Cardiovascular: Patient denies any chest pain. Patient does have shortness of breath and leg swelling. Respiratory: patient denied any cough is from production. No shortness of breath Neurologic: Patient complains of right arm numbness and pain. No headache. Musculoskeletal: Patient denies any complaints of joint swelling or deformity. Skin: Negative Psychiatric: Negative Endocrine: No heat or cold intolerance. No recent weight gain. Genitourinary: No dysuria or hematuria. All other 14 point ROS negative except the above Past Medical History Past Medical History: Coronary Artery Disease (CAD), Cancer, COPD, Diabetes Mellitus, Hyperlipidemia, Hypertension, Myocardial Infarction ([place]), Prostate Disorder Additional Past Medical History / Comment(s): prostate cancer with radiation > 20 years ago, nstemi, wears a brief incont urine/stool Last Myocardial Infarction Date:: 2017 History of Any Multi-Drug Resistant Organisms: ESBL, MRSA Date of last positivie culture/infection: 04/29/22 ESBL; 10/27/18 MRSA MDRO Source:: Urine-ESBL; Back-MRSA Past Surgical History: Coronary Bypass/CABG Additional Past Surgical History / Comment(s): 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,prostate bx, triple bypass 2017, bronchoscopy, picc line pt stated since removed Past Anesthesia/Blood Transfusion Reactions: No Reported Reaction Type of Cardiac Device: Permanent Pacemaker Device Placement Date:: 12/08/20 Past Psychological History: No Psychological Hx Reported Smoking Status: Former smoker Past Alcohol Use History: None Reported Past Drug Use History: None Reported - Past Family History Father Additional Family Medical History / Comment(s): old age Mother Family Medical History: Coronary Artery Disease (CAD), Diabetes Mellitus Additional Family Medical History / Comment(s): CABG Medications and Allergies Home Medications Medication Instructions Recorded Confirmed Type Aspirin [[place] Aspirin EC] 81 mg PO DAILY 01/07/19 07/14/22 History Atorvastatin [Lipitor] 20 mg PO DAILY 01/07/19 07/14/22 History Finasteride [Proscar] 5 mg PO DAILY 01/07/19 07/14/22 History Sertraline HCl [Zoloft] 50 mg PO DAILY 02/05/19 07/14/22 History Tamsulosin [Flomax] 0.4 mg PO HS 07/06/19 07/14/22 History Acetaminophen [Tylenol Arthritis] 650 mg PO HS 07/27/20 07/14/22 History Ferrous Sulfate [Feosol] 325 mg PO DAILY 07/27/20 07/14/22 History Gabapentin [Neurontin] 100 mg PO BID 12/06/20 07/14/22 History Nitroglycerin Sl Tabs [Nitrostat] 0.4 mg SL Q5M PRN 02/19/21 07/14/22 History Ascorbic Acid [Vitamin C] 500 mg PO DAILY 09/14/21 07/14/22 History Cholecalciferol (Vitamin D3) 125 mcg PO DAILY 09/14/21 07/14/22 History [Vitamin D3 (125 MCG = 5,000 IU)] Insulin Glargine,Hum.rec.anlog 30 unit SQ HS 09/14/21 07/14/22 History [Lantus Solostar Pen] Albuterol Inhaler [Ventolin Hfa 2 puff INHALATION RT-Q6H PRN 04/29/22 07/14/22 History Inhaler] Ibuprofen [Motrin Ib] 600 mg PO Q8H PRN 04/29/22 07/14/22 History Rivaroxaban [Xarelto] 20 mg PO DAILY 04/29/22 07/14/22 History Acetaminophen Tab [Tylenol] 650 mg PO Q6HR PRN tab 05/10/22 07/14/22 Rx Calcium Carbonate [Tums] 1,000 mg PO QID PRN tab 05/10/22 07/14/22 Rx Isosorbide Mononitrate ER [Imdur] 30 mg PO DAILY #30 tab 05/10/22 07/14/22 Rx Ipratropium-Albuterol Nebulize 3 ml INHALATION RT-QID PRN 07/14/22 07/14/22 History [Duoneb 0.5 mg-3 mg/3 ml Soln] Metoprolol Tartrate [Lopressor] 12.5 mg PO BID 07/14/22 07/14/22 History Allergies Allergy/AdvReac Type Severity Reaction Status Date / Time No Known Allergies Allergy Verified 07/14/22 12:39 Physical Exam Vitals: Vital Signs Temp Pulse Resp BP Pulse Ox 07/14/22 06:00 75 20 163/71 97 07/14/22 05:00 78 20 135/98 99 07/14/22 03:00 80 24 126/76 97 07/14/22 00:38 50 L 07/14/22 00:26 50 L 07/13/22 23:16 98.1 F 50 L 19 151/56 94 L Intake and Output 07/13/22 07/14/22 07/14/22 22:59 06:59 14:59 Other: Weight 98.43 kg PHYSICAL EXAMINATION: Patient is lying in the bed comfortably, no acute distress, awake alert and oriented.. HEENT: Normocephalic. Neck is supple. Pupils reactive. Nostrils clear. Oral cavity is moist. Neck reveals no JVD, carotid bruits, or thyromegaly. CHEST EXAMINATION: Trachea is central. Symmetrical expansion. Lung waddell clear to auscultation and percussion. CARDIAC: Normal S1, S2 with no gallops. No murmurs ABDOMEN: Soft. Bowel sounds present. Nontender. No organomegaly. No abdominal bruits. Extremities: Bilateral lower extremity trace edema. No clubbing or cyanosis Neurologically awake, alert, oriented x2-3 with well-coordinated movements. No gross focal deficits noted. Right upper extremity strength is 5 out of 5. Skin: No rash or skin lesions. Psychiatric: Coperative. Nonsuicidal, Musculoskeletal: No joint swelling or deformity. Normal range of motion. Results CBC & Chem 7: 07/14/22 00:02 07/14/22 00:02 Labs: Abnormal Lab Results - Last 24 Hours (Table) 07/14/22 07/14/22 Range/Units 00:02 00:02 RBC 3.54 L (4.30-5.90) m/uL Hgb 10.3 L (13.0-17.5) gm/dL Hct 33.2 L (39.0-53.0) % MCHC 30.9 L (31.0-37.0) g/dL RDW 15.8 H (11.5-15.5) % Lymphocytes # 0.7 L (1.0-4.8) k/uL Sodium 136 L (137-145) mmol/L BUN 28 H (9-20) mg/dL Glucose 221 H (74-99) mg/dL Total Protein 6.0 L (6.3-8.2) g/dL Thrombosis Risk Factor Assmnt - DVT/VTE Prophylaxis DVT/VTE Prophylaxis: Pharmacologic Prophylaxis ordered Assessment and Plan Assessment: Acute on chronic CHF with mildly reduced systolic function ejection fraction 45 to 50%. Right upper extremity numbness and pain. Rule out cervical radiculopathy Recent urinary tract infection with ESBL E. coli Mild hyperglycemia with uncontrolled diabetes type 2 insulin-dependent Coronary artery disease history of CABG COPD History of prostate cancer Prior history of smoking GI and DVT prophylaxis. Patient is already on Xarelto. Plan: Patient will be continued on IV Lasix 20 mg twice daily and monitor renal function. Continue with insulin regimen and continue with home medications and breathing treatments. Cardiology was consulted for evaluation. Follow-up closely. Time with Patient: Greater than 30
[2022-07-15] MEDS: MAGNESIUM SULFATE-D5W PMX 1 GM in DEXTROSE/WATER 1 100ML.BAG IVPB SCH ×2 (02:27→03:32)
[2022-07-15] MEDS: FUROSEMIDE 10 MG/ML 2 ML VIAL IV SCH (06:12)
--- NOTE | 2022-07-15 06:59 | P.CRDCN ---
History of Present Illness Consult date: 07/15/22 Chief complaint: Right arm discomfort History of present illness: This is a pleasant 77-year-old gentleman who sees Dr. Harper irregularly with a past medical history significant for CAD and prior CABG in 2018 received CHAHAL to LAD and SVG to RCA as well as SVG to OM and also history of permanent pacemaker as well as hypertension and dyslipidemia and diabetes and preserved only function on recent echo from 2021. We requested to see the patient as a consult here on the floor for further evaluation off right arm discomfort and also for further evaluation of heart failure. The patient somewhat is a poor historian. He stated that he presented to the hospital mainly because of right arm numbness/discomfort which is currently resolved completely. No associated symptoms off lower extremities numbness or weakness and no associated symptoms of slurred speech or any loss of consciousness or syncope. Also no associated symptoms of chest pain or chest discomfort. He stated that he does have shortness of breath with exertion that has been chronic and unchanged compared to before. He did not have any lower extremities edema. No fever and no chills and no cough. He underwent a workup including EKG showing sinus rhythm with ventricular paced rhythm and also he underwent cardiac enzymes came in to be unremarkable. His NT proBNP came in to be elevated 3000. The patient was started on Lasix at 20 mg IV twice a day. When he was seen and evaluated this morning he seems to be somewhat euvolemic. He has clear breathing sounds bilat erally was mild bilateral lower nonpitting edema. He received Lasix overnight. The patient is asking to go home. Past Medical History Past Medical History: Coronary Artery Disease (CAD), Cancer, COPD, Diabetes Mellitus, Hyperlipidemia, Hypertension, Myocardial Infarction ([place]), Prostate Disorder Additional Past Medical History / Comment(s): prostate cancer with radiation > 20 years ago, nstemi, wears a brief incont urine/stool Last Myocardial Infarction Date:: 2017 History of Any Multi-Drug Resistant Organisms: ESBL, MRSA Date of last positivie culture/infection: 04/29/22 ESBL; 10/27/18 MRSA MDRO Source:: Urine-ESBL; Back-MRSA Past Surgical History: Coronary Bypass/CABG Additional Past Surgical History / Comment(s): 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,prostate bx, triple bypass 2017, bronchoscopy, picc line pt stated since removed Past Anesthesia/Blood Transfusion Reactions: No Reported Reaction Type of Cardiac Device: Permanent Pacemaker Device Placement Date:: 12/08/20 Past Psychological History: No Psychological Hx Reported Smoking Status: Former smoker Past Alcohol Use History: None Reported Past Drug Use History: None Reported - Past Family History Father Additional Family Medical History / Comment(s): old age Mother Family Medical History: Coronary Artery Disease (CAD), Diabetes Mellitus Additional Family Medical History / Comment(s): CABG Medications and Allergies Home Medications Medication Instructions Recorded Confirmed Type Aspirin [[place] Aspirin EC] 81 mg PO DAILY 01/07/19 07/14/22 History Atorvastatin [Lipitor] 20 mg PO DAILY 01/07/19 07/14/22 History Finasteride [Proscar] 5 mg PO DAILY 01/07/19 07/14/22 History Sertraline HCl [Zoloft] 50 mg PO DAILY 02/05/19 07/14/22 History Tamsulosin [Flomax] 0.4 mg PO HS 07/06/19 07/14/22 History Acetaminophen [Tylenol Arthritis] 650 mg PO HS 07/27/20 07/14/22 History Ferrous Sulfate [Feosol] 325 mg PO DAILY 07/27/20 07/14/22 History Gabapentin [Neurontin] 100 mg PO BID 12/06/20 07/14/22 History Nitroglycerin Sl Tabs [Nitrostat] 0.4 mg SL Q5M PRN 02/19/21 07/14/22 History Ascorbic Acid [Vitamin C] 500 mg PO DAILY 09/14/21 07/14/22 History Cholecalciferol (Vitamin D3) 125 mcg PO DAILY 09/14/21 07/14/22 History [Vitamin D3 (125 MCG = 5,000 IU)] Insulin Glargine,Hum.rec.anlog 30 unit SQ HS 09/14/21 07/14/22 History [Lantus Solostar Pen] Albuterol Inhaler [Ventolin Hfa 2 puff INHALATION RT-Q6H PRN 04/29/22 07/14/22 History Inhaler] Ibuprofen [Motrin Ib] 600 mg PO Q8H PRN 04/29/22 07/14/22 History Rivaroxaban [Xarelto] 20 mg PO DAILY 04/29/22 07/14/22 History Acetaminophen Tab [Tylenol] 650 mg PO Q6HR PRN tab 05/10/22 07/14/22 Rx Calcium Carbonate [Tums] 1,000 mg PO QID PRN tab 05/10/22 07/14/22 Rx Isosorbide Mononitrate ER [Imdur] 30 mg PO DAILY #30 tab 05/10/22 07/14/22 Rx Ipratropium-Albuterol Nebulize 3 ml INHALATION RT-QID PRN 07/14/22 07/14/22 History [Duoneb 0.5 mg-3 mg/3 ml Soln] Metoprolol Tartrate [Lopressor] 12.5 mg PO BID 07/14/22 07/14/22 History Allergies Allergy/AdvReac Type Severity Reaction Status Date / Time No Known Allergies Allergy Verified 07/14/22 12:39 Physical Exam Vitals: Vital Signs Temp Pulse Pulse Resp BP BP BP 07/15/22 02:00 98.0 F 60 146/71 07/14/22 20:35 97.7 F 76 20 173/70 07/14/22 20:00 98.5 F 79 20 127/77 07/14/22 19:21 75 07/14/22 19:11 71 07/14/22 15:55 60 07/14/22 15:44 55 L 07/14/22 13:08 78 18 161/93 07/14/22 11:13 74 07/14/22 11:06 70 Pulse Ox 07/15/22 02:00 99 07/14/22 20:35 99 07/14/22 20:00 97 07/14/22 19:21 07/14/22 19:11 07/14/22 15:55 07/14/22 15:44 99 07/14/22 13:08 92 L 07/14/22 11:13 07/14/22 11:06 Intake and Output 07/14/22 07/14/22 07/15/22 14:59 22:59 06:59 Intake Total 105 222 Output Total 401 Balance 105 -179 Intake: IV 5 Invasive Line 1 5 Oral 100 222 Output: Urine 400 Stool 1 Other: Voiding Method Diaper Incontinent # Voids 3 3 6 # Bowel Movements 2 Weight 98.43 kg - Constitutional General appearance: no acute distress - Respiratory Respiratory: bilateral: CTA - Cardiovascular Rhythm: regular Heart sounds: normal: S1, S2 Abnormal Heart Sounds: systolic murmur Results 07/14/22 00:02 07/14/22 00:02 Cardiac Enzymes 07/14/22 Range/Units 09:02 Troponin I 0.024 (0.000-0.034) ng/mL Current Medications Generic Name Dose Route Start Last Admin Trade Name Freq PRN Reason Stop Dose Admin Acetaminophen 650 mg 07/14/22 22:08 Acetaminophen Tab 325 Mg Tab PO Q6HR PRN Mild Pain or Fever > 100.5 Albuterol Sulfate 1.25 mg 07/14/22 08:00 07/14/22 19:10 Albuterol Nebulized 1.25 Mg/3 Ml INHALATION 1.25 mg RT-QID ALEXEY Administration Aspirin 81 mg 07/14/22 11:15 07/14/22 13:20 Aspirin 81 Mg PO 81 mg DAILY ALEXEY Administration Atorvastatin Calcium 20 mg 07/14/22 11:15 07/14/22 13:20 Atorvastatin 20 Mg Tab PO 20 mg DAILY ALEXEY Administration Dextrose/Water 25 ml 07/14/22 22:31 Dextrose 50% Syringe 50 Ml IVP PER PROTOCOL PRN Hypoglycemia Protocol Dextrose/Water 50 ml 07/14/22 22:31 Dextrose 50% Syringe 50 Ml IVP PER PROTOCOL PRN Hypoglycemia Protocol Finasteride 5 mg 07/15/22 09:00 Finasteride 5 Mg Tab PO DAILY ALEXEY Furosemide 20 mg 07/14/22 18:00 07/15/22 06:12 Furosemide 10 Mg/Ml 2 Ml Vial IV 20 mg Q12H ALEXEY Administration Gabapentin 100 mg 07/14/22 22:15 07/14/22 22:48 Gabapentin 100 Mg Cap PO 100 mg BID ALEXEY Administration Sodium Chloride 1,000 mls @ 20 mls/hr 07/14/22 01:00 07/14/22 23:51 Saline 0.9% IV Not Given .Q24H ALEXEY Insulin Aspart 0 unit 07/14/22 22:32 07/14/22 22:49 Insulin Aspart (Novolog) 100 Unit/Ml Vial SQ 6 unit ACHS ALEXEY Administration Protocol Insulin Detemir 30 unit 07/14/22 21:00 07/14/22 22:49 Insulin Detemir (Levemir) 100 Unit/Ml Syr SQ 30 unit HS ALEXEY Administration Isosorbide Mononitrate 30 mg 07/14/22 11:15 07/14/22 13:20 Isosorbide Mononitrate Er 30 Mg Tab.Er.24h PO 30 mg DAILY ALEXEY Administration Metoprolol Tartrate 12.5 mg 07/14/22 21:00 07/14/22 20:36 Metoprolol Tartrate 12.5 Mg Tab PO 12.5 mg BID ALEXEY Administration Morphine Sulfate 4 mg 07/14/22 00:48 Morphine Sulfate 4 Mg/Ml Syringe IV Q4HR PRN Severe Pain Naloxone HCl 0.2 mg 07/14/22 00:48 Naloxone 0.4 Mg/Ml 1 Ml Vial IV Q2M PRN Opioid Reversal Ondansetron HCl 4 mg 07/14/22 00:48 Ondansetron 4 Mg/2 Ml Vial IVP Q8HR PRN Nausea And Vomiting Rivaroxaban 20 mg 07/15/22 09:00 Rivaroxaban 20 Mg Tab PO DAILY [facility] Protocol Sertraline HCl 50 mg 07/14/22 22:15 07/14/22 22:34 Sertraline 50 Mg Tab PO Not Given DAILY [facility] Tamsulosin HCl 0.4 mg 07/14/22 21:00 07/14/22 20:36 Tamsulosin 0.4 Mg Cap.Er.24h PO 0.4 mg HS ALEXEY Administration Intake and Output 07/14/22 07/14/22 07/15/22 14:59 22:59 06:59 Intake Total 105 222 Output Total 401 Balance 105 -179 Intake: IV 5 Invasive Line 1 5 Oral 100 222 Output: Urine 400 Stool 1 Other: Voiding Method Diaper Incontinent # Voids 3 3 6 # Bowel Movements 2 Weight 98.43 kg Patient Weight 07/15/22 06:59 Weight 98.43 kg 07/14/22 00:02 07/14/22 00:02 Assessment and Plan Assessment: Assessment #1 right arm discomfort seems to be nonanginal #2 shortness of breath appears to be chronic and unchanged compared to before #3 probably heart failure was preserved ejection fraction of very mild degree #4 CAD was prior revascularization as described above #5 history of permanent pacemaker #6 preserved LV function on the last echo from 2021 Plan #1 the patient seems to be overall euvolemic when he was seen this morning. Please note that he received Lasix overnight #2 no need for an echo in the light of recent echo in 2021 #3 obtain the previous medical records from the office including the last stress test #4 possible discharge in the next 12-24 hour
[2022-07-15 07:38] LABS: Glucose,Whole Blood 129 mg/dL (70-110)
[2022-07-15] MEDS: ALBUTEROL NEBULIZED 1.25 MG/3 ML INHALATION SCH ×3 (07:39→15:22)
[2022-07-15] MEDS ORDERED: RIVAROXABAN 20 MG TAB PO SCH (09:00)
[2022-07-15] MEDS ORDERED: FINASTERIDE 5 MG TAB PO SCH (09:00)
[2022-07-15] MEDS: INSULIN ASPART (NovoLOG) 100 UNIT/ML VIAL SQ SCH ×2 (09:07→12:23)
[2022-07-15] MEDS: ASPIRIN 81 MG PO SCH (09:07)
[2022-07-15] MEDS: ATORVASTATIN 20 MG TAB PO SCH (09:08)
[2022-07-15] MEDS: ISOSORBIDE MONONITRATE ER 30 MG TAB.ER.24H PO SCH (09:08)
[2022-07-15] MEDS: METOPROLOL TARTRATE 12.5 MG TAB PO SCH (09:08)
[2022-07-15] MEDS: SERTRALINE 50 MG TAB PO SCH (09:08)
[2022-07-15] MEDS: GABAPENTIN 100 MG CAP PO SCH (09:08)
[2022-07-15] MEDS ORDERED: AZITHROMYCIN 500 MG TAB PO STA (09:13)
[2022-07-15] MEDS ORDERED: BUDESONIDE 0.5 MG/2 ML NEBU INHALATION SCH (09:14)
[2022-07-15 09:30] LABS: Basophils # (A) 0.03 X 10*3/uL (0.00-0.10); Basophils % (A) 0.6 %; Eosinophils # (A) 0.14 X 10*3/uL (0.04-0.35); Eosinophils % (A) 2.6 %; HCT 29.4 % (39.6-50.0); HGB 8.8 g/dL (13.0-17.0); Immature Grans, Automated 0.7 %; Lymphocytes # (A) 0.77 X 10*3/uL (0.90-5.00); Lymphocytes % (A) 14.3 %; MCH 28.2 pg (27.0-32.0); MCHC 29.9 g/dL (32.0-37.0); MCV 94.2 fL (80.0-97.0); Mean Platelet Volume 10.7 fL (9.5-12.2); Monocytes # (A) 0.39 X 10*3/uL (0.20-1.00); Monocytes % (A) 7.2 %; NRBC Per 100 WBC 0 /100 WBCS (0.0-0.0); Neutrophils # (A) 4.03 X 10*3/uL (1.80-7.70); Neutrophils % (A) 74.6 %; Platelet Count 150 X 10*3/uL (140-440); RBC 3.12 X 10*6/uL (4.40-5.60); RDW 15.4 % (11.5-14.5)
[2022-07-15 09:40] LABS: African American GFR (CKD) 83.8 (60.0-200.0); Albumin 3.7 g/dL (3.8-4.9); Albumin/Globulin Ratio 1.76 (1.60-3.17); Anion Gap 9.8 mmol/L (10.00-18.00); BUN/Creat Ratio 18.6 Ratio (12.00-20.00); Blood Urea Nitrogen 18.6 mg/dL (9.0-27.0); Carbon Dioxide 28.2 mmol/L (20.0-27.5); Globulin 2.1 g/dL (1.6-3.3); Non-African American GFR(CKD) 72.3 (60.0-200.0); Potassium 4.4 mmol/L (3.5-5.5); Total Bilirubin 0.2 mg/dL (0.30-1.20); Total Protein 5.8 g/dL (6.2-8.2)
[2022-07-15 11:41] LABS: Glucose,Whole Blood 183 mg/dL (70-110)
[2022-07-15 14:48] VITALS: BP 129/55; PULSE 60; RESP 16; TEMP 97.9
== END 2022-07-15 15:22 | disposition home or self-care (01) ==
LOC: EC 23:06 → 6NMEDSUR 07-14 00:48
PROVIDERS: ADMIT Family Medicine; ATTEND Family Medicine
DX: R20.0 Anesthesia of skin (principal); J44.1 Chronic obstructive pulmonary disease with (acute) exacerbation; I11.0 Hypertensive heart disease with heart failure; I50.9 Heart failure, unspecified; E11.9 Type 2 diabetes mellitus without complications; I25.2 Old myocardial infarction; I25.10 Atherosclerotic heart disease of native coronary artery without angina pectoris; E78.5 Hyperlipidemia, unspecified; J98.11 Atelectasis; Z79.01 Long term (current) use of anticoagulants; Z79.82 Long term (current) use of aspirin; Z79.899 Other long term (current) drug therapy; Z95.1 Presence of aortocoronary bypass graft; Z90.5 Acquired absence of kidney; Z87.891 Personal history of nicotine dependence; Z85.46 Personal history of malignant neoplasm of prostate; Z83.3 Family history of diabetes mellitus; Z82.49 Family history of ischemic heart disease and other diseases of the circulatory system; Z95.0 Presence of cardiac pacemaker; Z87.440 Personal history of urinary (tract) infections; Z92.3 Personal history of irradiation; Z79.4 Long term (current) use of insulin
CPT/HCPCS: 96365; 96366; 96376; 96375; 99285; 36415; 94640 ×4; 94760; 93005; 83880; 80053 ×2; 83605; 83735; 84484; 85025 ×2; 85610; 85730; 83036; 71045; G0378 ×2; S0138; J1940 ×2; J3475

== ENCOUNTER 2022-08-17 20:14 | Inpatient (IN) | payer MEDICARE, OTHER ==
--- NOTE | 2022-08-17 20:32 | ED ---
General Adult HPI - General Chief complaint: Shortness of Breath Stated complaint: SOB Time Seen by Provider: 08/17/22 20:15 Source: patient, EMS Mode of arrival: EMS Limitations: no limitations - History of Present Illness Initial comments: Patient presents to the ED by ambulance for evaluation. Patient states that he has been dyspneic for the past couple of days. Patient states that he came to the ED yesterday, but left without being seen. Patient states that he is normally on 3 L of home O2. Patient admits to having a chronic and unchanged cough. Patient states that he is Covid-vaccinated. Patient denies having any pain, fever or chills, headache, focal neuro deficit, chest pain or pressure, hemoptysis, palpitations, dizziness, abdominal pain, nausea/vomiting/diarrhea, bloody or melanotic stool, dysuria or urinary symptoms, decreased urine output, leg or calf swelling or pain, or any other symptoms or complaints. Patient's blood glucose was in the 400s per EMS. Patient is on Xarelto. - Related Data Home Medications Medication Instructions Recorded Confirmed Aspirin [[place] Aspirin EC] 81 mg PO DAILY 01/07/19 08/17/22 Atorvastatin [Lipitor] 20 mg PO DAILY 01/07/19 08/17/22 Finasteride [Proscar] 5 mg PO DAILY 01/07/19 08/17/22 Sertraline HCl [Zoloft] 50 mg PO DAILY 02/05/19 08/17/22 Tamsulosin [Flomax] 0.4 mg PO HS 07/06/19 08/17/22 Acetaminophen [Tylenol Arthritis] 650 mg PO HS 07/27/20 08/17/22 Ferrous Sulfate [Feosol] 325 mg PO DAILY 07/27/20 08/17/22 Gabapentin [Neurontin] 100 mg PO BID 12/06/20 08/17/22 Nitroglycerin Sl Tabs [Nitrostat] 0.4 mg SL Q5M PRN 02/19/21 08/17/22 Ascorbic Acid [Vitamin C] 500 mg PO DAILY 09/14/21 08/17/22 Cholecalciferol (Vitamin D3) 125 mcg PO DAILY 09/14/21 08/17/22 [Vitamin D3 (125 MCG = 5,000 IU)] Insulin Glargine,Hum.rec.anlog 30 unit SQ HS 09/14/21 08/17/22 [Lantus Solostar Pen] Albuterol Inhaler [Ventolin Hfa 2 puff INHALATION RT-Q6H PRN 04/29/22 08/17/22 Inhaler] Ibuprofen [Motrin Ib] 600 mg PO Q8H PRN 04/29/22 08/17/22 Rivaroxaban [Xarelto] 20 mg PO DAILY 04/29/22 08/17/22 Ipratropium-Albuterol Nebulize 3 ml INHALATION RT-QID PRN 07/14/22 08/17/22 [Duoneb 0.5 mg-3 mg/3 ml Soln] Metoprolol Tartrate [Lopressor] 12.5 mg PO BID 07/14/22 08/17/22 Acetaminophen Tab [Tylenol] 650 mg PO Q6H PRN 08/17/22 08/17/22 Previous Rx's Medication Instructions Recorded Calcium Carbonate [Tums] 1,000 mg PO QID PRN tab 05/10/22 Isosorbide Mononitrate ER [Imdur] 30 mg PO DAILY #30 tab 05/10/22 Allergies Allergy/AdvReac Type Severity Reaction Status Date / Time No Known Allergies Allergy Verified 08/17/22 21:00 Review of Systems ROS Statement: Those systems with pertinent positive or pertinent negative responses have been documented in the HPI. ROS Other: All systems not noted in ROS Statement are negative. Past Medical History Past Medical History: Coronary Artery Disease (CAD), Cancer, COPD, Diabetes Mellitus, Hyperlipidemia, Hypertension, Myocardial Infarction ([place]), Prostate Disorder Additional Past Medical History / Comment(s): prostate cancer with radiation > 20 years ago, nstemi, wears a brief incont urine/stool Last Myocardial Infarction Date:: 2017 History of Any Multi-Drug Resistant Organisms: ESBL, MRSA Date of last positivie culture/infection: 04/29/22 ESBL; 10/27/18 MRSA MDRO Source:: Urine-ESBL; Back-MRSA Past Surgical History: Coronary Bypass/CABG Additional Past Surgical History / Comment(s): 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,prostate bx, triple bypass 2017, bronchoscopy, picc line pt stated since removed Past Anesthesia/Blood Transfusion Reactions: No Reported Reaction Type of Cardiac Device: Permanent Pacemaker Device Placement Date:: 12/08/20 Past Psychological History: No Psychological Hx Reported Smoking Status: Former smoker Past Alcohol Use History: None Reported Past Drug Use History: None Reported - Past Family History Father Additional Family Medical History / Comment(s): old age Mother Family Medical History: Coronary Artery Disease (CAD), Diabetes Mellitus Additional Family Medical History / Comment(s): CABG General Exam Limitations: no limitations General appearance: alert, in no apparent distress Head exam: Present: atraumatic, normocephalic Eye exam: Present: normal appearance, EOMI ENT exam: Present: mucous membranes moist Neck exam: Present: other (Trachea is in midline) Respiratory exam: Present: other (Bibasilar rales). Absent: respiratory distress, wheezes, rhonchi, stridor Cardiovascular Exam: Present: regular rate, normal rhythm, normal heart sounds, other (Normal radial pulses bilaterally) GI/Abdominal exam: Present: soft. Absent: distended, tenderness, guarding Extremities exam: Present: other (1+ bilateral lower extremity pitting edema; negative Homans sign bilaterally). Absent: tenderness, calf tenderness Neurological exam: Present: alert, oriented X3. Absent: motor sensory deficit Psychiatric exam: Present: normal affect, normal mood Skin exam: Present: warm, dry, intact, normal color Course Vital Signs 08/17/22 20:19 Temperature 98.8 F Pulse Rate 65 Respiratory 18 Rate Blood Pressure 177/90 O2 Sat by Pulse 99 Oximetry - Reevaluation(s) Reevaluation #1: 08/17/22 23:09 Case, H&P, test results and ED management thus far were discussed with MAYA Briceno. He accepts hospital admission on behalf of himself and Dr. Talley. He agrees with cardiology consultation. He has no further recommendations at this time. 08/17/22 23:18 Patient denies development of any new symptoms while in the ED. Patient remains alert and breathing comfortably. Patient continues to deny having any chest pain while in the ED. Patient is aware of his test results, and he agrees with hospital admission at this time. EKG Findings - EKG Comments: EKG Findings:: Ventricular paced rhythm, ventricular rate of 65 bpm Medical Decision Making - Medical Decision Making Patient denies having any chest pain. Patient's troponin is minimally elevated. Patient's BNP is elevated, and patient's clinical findings are suggestive of CHF. Patient has been treated with IV Lasix and oral aspirin in the ED. Patient is on Xarelto anticoagulation. Patient is also noted to be hyperglycemic, but not acidotic or ketotic. Patient has been treated with subQ regular insulin. Will admit the patient to the hospital for continued diuresis, serial troponins, cardiac monitoring and cardiology consultation. MAYA Briceno has accepted hospital admission on behalf of himself and Dr. Talley. - Lab Data Result diagrams: 08/17/22 21:07 08/17/22 21:07 Lab Results 08/17/22 08/17/22 08/17/22 Range/Units 21:07 21:07 21:07 WBC 6.2 (3.8-10.6) k/uL RBC 3.39 L (4.30-5.90) m/uL Hgb 9.7 L (13.0-17.5) gm/dL Hct 32.1 L (39.0-53.0) % MCV 94.7 (80.0-100.0) fL MCH 28.7 (25.0-35.0) pg MCHC 30.3 L (31.0-37.0) g/dL RDW 15.2 (11.5-15.5) % Plt Count 157 (150-450) k/uL MPV 8.4 Neutrophils % 84 % Lymphocytes % 8 % Monocytes % 5 % Eosinophils % 2 % Basophils % 1 % Neutrophils # 5.2 (1.3-7.7) k/uL Lymphocytes # 0.5 L (1.0-4.8) k/uL Monocytes # 0.3 (0-1.0) k/uL Eosinophils # 0.1 (0-0.7) k/uL Basophils # 0.0 (0-0.2) k/uL Hypochromasia Marked PT 10.4 (9.0-12.0) sec INR 0.9 (<1.2) APTT 25.2 (22.0-30.0) sec VBG pH (7.31-7.41) VBG pCO2 (37-51) mmHg VBG HCO3 (24-28) mmol/L Sodium 137 (137-145) mmol/L Potassium 4.1 (3.5-5.1) mmol/L Chloride 96 L (98-107) mmol/L Carbon Dioxide 31 H (22-30) mmol/L Anion Gap 10 mmol/L BUN 20 (9-20) mg/dL Creatinine 1.04 (0.66-1.25) mg/dL Est GFR (CKD-EPI)AfAm 80 (>60 ml/min/1.73 sqM) Est GFR (CKD-EPI)NonAf 69 (>60 ml/min/1.73 sqM) Glucose 319 H (74-99) mg/dL Calcium 8.9 (8.4-10.2) mg/dL Magnesium 1.7 (1.6-2.3) mg/dL Total Bilirubin 0.2 (0.2-1.3) mg/dL AST 20 (17-59) U/L ALT 12 (4-49) U/L Alkaline Phosphatase 112 (38-126) U/L Troponin I (0.000-0.034) ng/mL NT-Pro-B Natriuret Pep pg/mL Total Protein 5.6 L (6.3-8.2) g/dL Albumin 3.3 L (3.5-5.0) g/dL Acetone, Qual Negative (Negative) Coronavirus (PCR) (Not Detectd) 08/17/22 08/17/22 08/17/22 Range/Units 21:07 21:07 22:00 WBC (3.8-10.6) k/uL RBC (4.30-5.90) m/uL Hgb (13.0-17.5) gm/dL Hct (39.0-53.0) % MCV (80.0-100.0) fL MCH (25.0-35.0) pg MCHC (31.0-37.0) g/dL RDW (11.5-15.5) % Plt Count (150-450) k/uL MPV Neutrophils % % Lymphocytes % % Monocytes % % Eosinophils % % Basophils % % Neutrophils # (1.3-7.7) k/uL Lymphocytes # (1.0-4.8) k/uL Monocytes # (0-1.0) k/uL Eosinophils # (0-0.7) k/uL Basophils # (0-0.2) k/uL Hypochromasia PT (9.0-12.0) sec INR (<1.2) APTT (22.0-30.0) sec VBG pH (7.31-7.41) VBG pCO2 (37-51) mmHg VBG HCO3 (24-28) mmol/L Sodium (137-145) mmol/L Potassium (3.5-5.1) mmol/L Chloride (98-107) mmol/L Carbon Dioxide (22-30) mmol/L Anion Gap mmol/L BUN (9-20) mg/dL Creatinine (0.66-1.25) mg/dL Est GFR (CKD-EPI)AfAm (>60 ml/min/1.73 sqM) Est GFR (CKD-EPI)NonAf (>60 ml/min/1.73 sqM) Glucose (74-99) mg/dL Calcium (8.4-10.2) mg/dL Magnesium (1.6-2.3) mg/dL Total Bilirubin (0.2-1.3) mg/dL AST (17-59) U/L ALT (4-49) U/L Alkaline Phosphatase (38-126) U/L Troponin I 0.054 H* (0.000-0.034) ng/mL NT-Pro-B Natriuret Pep 4920 pg/mL Total Protein (6.3-8.2) g/dL Albumin (3.5-5.0) g/dL Acetone, Qual (Negative) Coronavirus (PCR) Not Detected (Not Detectd) 08/17/22 Range/Units 22:11 WBC (3.8-10.6) k/uL RBC (4.30-5.90) m/uL Hgb (13.0-17.5) gm/dL Hct (39.0-53.0) % MCV (80.0-100.0) fL MCH (25.0-35.0) pg MCHC (31.0-37.0) g/dL RDW (11.5-15.5) % Plt Count (150-450) k/uL MPV Neutrophils % % Lymphocytes % % Monocytes % % Eosinophils % % Basophils % % Neutrophils # (1.3-7.7) k/uL Lymphocytes # (1.0-4.8) k/uL Monocytes # (0-1.0) k/uL Eosinophils # (0-0.7) k/uL Basophils # (0-0.2) k/uL Hypochromasia PT (9.0-12.0) sec INR (<1.2) APTT (22.0-30.0) sec VBG pH 7.48 H (7.31-7.41) VBG pCO2 44 (37-51) mmHg VBG HCO3 33 H (24-28) mmol/L Sodium (137-145) mmol/L Potassium (3.5-5.1) mmol/L Chloride (98-107) mmol/L Carbon Dioxide (22-30) mmol/L Anion Gap mmol/L BUN (9-20) mg/dL Creatinine (0.66-1.25) mg/dL Est GFR (CKD-EPI)AfAm (>60 ml/min/1.73 sqM) Est GFR (CKD-EPI)NonAf (>60 ml/min/1.73 sqM) Glucose (74-99) mg/dL Calcium (8.4-10.2) mg/dL Magnesium (1.6-2.3) mg/dL Total Bilirubin (0.2-1.3) mg/dL AST (17-59) U/L ALT (4-49) U/L Alkaline Phosphatase (38-126) U/L Troponin I (0.000-0.034) ng/mL NT-Pro-B Natriuret Pep pg/mL Total Protein (6.3-8.2) g/dL Albumin (3.5-5.0) g/dL Acetone, Qual (Negative) Coronavirus (PCR) (Not Detectd) - Radiology Data Chest x-ray: There is some infiltrate atelectasis right lung base which is slightly worse than last exam. No heart failure seen. Disposition Clinical Impression: Dyspnea, Hyperglycemia, CHF (congestive heart failure), Elevated troponin Disposition: ADMITTED IP TO THIS HOSP Condition: Stable Is patient prescribed a controlled substance at d/c from ED?: No Referrals: Della Grant MD [Primary Care Provider] - 1-2 days Time of Disposition: 23:17
--- NOTE | 2022-08-17 20:39 | XR ---
EXAMINATION TYPE: XR chest 1V portable DATE OF EXAM: 08/17/2022 COMPARISON: 07/14/2022 HISTORY: Short of breath TECHNIQUE: Single view FINDINGS: Heart is enlarged. There is mild blunting right costophrenic angle. No heart failure seen. There is left axillary pacemaker. No pulmonary mass. IMPRESSION: There is some infiltrate atelectasis right lung base which is slightly worse than last exam. No heart failure seen.
[2022-08-17 21:39] LABS: Basophils % (A) 1 %; Eosinophils # (A) 0.1 k/uL (0-0.7); Eosinophils % (A) 2 %; HCT 32.1 % (39.0-53.0); HGB 9.7 gm/dL (13.0-17.5); Hypochromasia Marked; Lymphocytes # (A) 0.5 k/uL (1.0-4.8); Lymphocytes % (A) 8 %; MCH 28.7 pg (25.0-35.0); MCHC 30.3 g/dL (31.0-37.0); MCV 94.7 fL (80.0-100.0); Mean Platelet Volume 8.4; Monocytes # (A) 0.3 k/uL (0-1.0); Monocytes % (A) 5 %; Neutrophils # (A) 5.2 k/uL (1.3-7.7); Neutrophils % (A) 84 %; Platelet Count 157 k/uL (150-450); RBC 3.39 m/uL (4.30-5.90); RDW 15.2 % (11.5-15.5); WBC 6.2 k/uL (3.8-10.6)
[2022-08-17 21:53] LABS: ALT 12 U/L (4-49); AST 20 U/L (17-59); African American GFR (CKD) 80 (>60 ml/min/1.73 sqM); Albumin 3.3 g/dL (3.5-5.0); Alkaline Phosphatase 112 U/L (38-126); Anion Gap 10 mmol/L; Blood Urea Nitrogen 20 mg/dL (9-20); Calcium 8.9 mg/dL (8.4-10.2); Carbon Dioxide 31 mmol/L (22-30); Chloride 96 mmol/L (98-107); Glucose 319 mg/dL (74-99); INR 0.9 (<1.2); Magnesium 1.7 mg/dL (1.6-2.3); Non-African American GFR(CKD) 69 (>60 ml/min/1.73 sqM); Partial Thromboplastin Time 25.2 sec (22.0-30.0); Potassium 4.1 mmol/L (3.5-5.1); Prothrombin Time 10.4 sec (9.0-12.0); Sodium 137 mmol/L (137-145); Total Bilirubin 0.2 mg/dL (0.2-1.3); Total Protein 5.6 g/dL (6.3-8.2)
[2022-08-17 22:45] LABS: VBG PH 7.48 (7.31-7.41)
[2022-08-17] MEDS ORDERED: FUROSEMIDE 10 MG/ML 4 ML VIAL IV STA (23:07)
[2022-08-17] MEDS ORDERED: ASPIRIN 81 MG PO STA (23:07)
[2022-08-17] MEDS ORDERED: INSULIN REGULAR 100 UNIT/ML VIAL (IM/SQ) SQ STA (23:08)
[2022-08-18 00:13] LABS: Appearance,Urine Cloudy (Clear); Bacteria,Urine Occasional /hpf; Bilirubin,Urine Negative (Negative); Blood,Urine Trace (Negative); Color,Urine Colorless; Glucose,Urine (UA) 3+ (Negative); Hyaline Casts,Urine 1 /lpf (0-2); Ketones,Urine Negative (Negative); Leukocyte Esterase,Urine Moderate (Negative); Mucus,Urine Rare /hpf; Nitrite,Urine Negative (Negative); PH, Urine 6.5 (5.0-8.0); Protein,Urine 2+ (Negative); RBC,Urine 1 /hpf (0-5); Specific Gravity,Urine 1.009 (1.001-1.035); Squamous Epithelial Cell,Urine <1 /hpf (0-4); Urobilinogen,Urine <2.0 mg/dL (<2.0); WBC,Urine 34 /hpf (0-5)
[2022-08-18 03:18] LABS: Basophils % (A) 1 %; Eosinophils # (A) 0.1 k/uL (0-0.7); Eosinophils % (A) 2 %; HCT 33.7 % (39.0-53.0); HGB 10.1 gm/dL (13.0-17.5); Hypochromasia Marked; Lymphocytes # (A) 0.6 k/uL (1.0-4.8); Lymphocytes % (A) 11 %; MCH 28.4 pg (25.0-35.0); MCV 94.7 fL (80.0-100.0); Mean Platelet Volume 8.3; Monocytes # (A) 0.3 k/uL (0-1.0); Monocytes % (A) 6 %; Neutrophils # (A) 4.2 k/uL (1.3-7.7); Neutrophils % (A) 80 %; Platelet Count 160 k/uL (150-450); RBC 3.56 m/uL (4.30-5.90); RDW 15.1 % (11.5-15.5); WBC 5.3 k/uL (3.8-10.6)
[2022-08-18 03:36] LABS: Albumin 3.4 g/dL (3.5-5.0); Calcium 9.5 mg/dL (8.4-10.2); Potassium 3.9 mmol/L (3.5-5.1); Total Bilirubin 0.3 mg/dL (0.2-1.3); Total Protein 5.8 g/dL (6.3-8.2)
[2022-08-18 06:27] LABS: Glucose,Whole Blood 112 mg/dL (70-110)
[2022-08-18] MEDS: NITROGLYCERIN-D5W PMX 50 MG in DEXTROSE/WATER 1 250ML.BAG IV SCH (07:17)
[2022-08-18] MEDS: INSULIN ASPART (NovoLOG) 100 UNIT/ML VIAL SQ SCH ×4 (08:14→20:41)
[2022-08-18] MEDS: FUROSEMIDE 10 MG/ML 4 ML VIAL IV SCH ×2 (08:44→20:33)
[2022-08-18] MEDS: METOPROLOL TARTRATE 12.5 MG TAB PO SCH ×2 (08:44→20:34)
[2022-08-18] MEDS: LOSARTAN 25 MG TAB PO SCH (08:44)
[2022-08-18] MEDS ORDERED: ALBUTEROL NEBULIZED 2.5 MG/3 ML INHALATION PRN (09:19)
--- NOTE | 2022-08-18 09:35 | P.CRDCN ---
History of Present Illness Consult date: 08/18/22 Chief complaint: Shortness of breath and the chest pain History of present illness: The patient is a 77-year-old gentleman who sees Dr. Harper irregularly with a past medical history significant for coronary artery disease and status post CABG in 2018 where at that point he underwent CHAHAL to LAD and SVG to OM as well as SVG to RCA. Also he does have history of heart failure with preserved ejection fraction. Beside that the patient does have history of permanent pacemaker and also hypertension and dyslipidemia. Requested to see the patient as a consult today for further evaluation of abnormal cardiac enzymes and elevated troponin. The patient somewhat is a poor historian. He stated that for the last few days he has not been feeding well. He presented with increasing shortness of breath for the last 2-3 days associated with cough and some sputum production. No fever and no chills. On further questioning he also indicates that he has been experiencing chest discomfort mainly in the upper chest as well as in the lower neck. He reports no dizziness or lightheadedness and no feeling of heart racing or fluttering and no presyncope or syncope and no sweating. He presented to the emergency department for further evaluation. He underwent a workup including EKG showing sinus rhythm with ventricular paced rhythm. He also underwent a chest x-ray which showed chronic changes was a small bilateral pleural effusion. His NT proBNP came in to be elevated at 3000. The troponin also came in to be mildly elevated. Beside that when he presented to the hospital to pressure has been elevated and his systolic pressure was more than 180 mmHg. The patient stated that he has been compliant with his medications. On examination he definitely looks in heart failure was bilateral lower extremities edema and diminished breathing sounds bilaterally with bilateral rhonchi. His last echo from 2018 showed preserved left ventricular systolic function but the study was technically difficult and no obvious significant valvular abnormalities noted. The patient is receiving Xarelto at home for unknown reason. Reviewing the previous medical records did not indicate any history of atrial fibrillation Past Medical History Past Medical History: Coronary Artery Disease (CAD), Cancer, COPD, Diabetes Mellitus, Hyperlipidemia, Hypertension, Myocardial Infarction ([place]), Prostate Disorder Additional Past Medical History / Comment(s): prostate cancer with radiation > 20 years ago, nstemi, wears a brief incont urine/stool Last Myocardial Infarction Date:: 2018 History of Any Multi-Drug Resistant Organisms: ESBL, MRSA Date of last positivie culture/infection: 04/29/22 ESBL; 10/27/18 MRSA MDRO Source:: Urine-ESBL; Back-MRSA Past Surgical History: Coronary Bypass/CABG Additional Past Surgical History / Comment(s): 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,prostate bx, triple bypass 2017, bronchoscopy, picc line pt stated since removed Past Anesthesia/Blood Transfusion Reactions: No Reported Reaction Type of Cardiac Device: Permanent Pacemaker Device Placement Date:: 12/08/20 Past Psychological History: No Psychological Hx Reported Additional Psychological History / Comment(s): Pt resides with his son, Cristo. He uses a wheeled walker. He has a nebulizer. He no longer drives, his son drives. Smoking Status: Former smoker Past Alcohol Use History: None Reported Additional Past Alcohol Use History / Comment(s): Pt started smoking as a teen and was a 3 ppd smoker but quit in 1990. Past Drug Use History: None Reported Additional Drug Use History / Comment(s): Used to use alcohol regularely. States he goes to [employer] meetings. - Past Family History Father Additional Family Medical History / Comment(s): old age Mother Family Medical History: Coronary Artery Disease (CAD), Diabetes Mellitus Additional Family Medical History / Comment(s): CABG Medications and Allergies Home Medications Medication Instructions Recorded Confirmed Type Aspirin [[place] Aspirin EC] 81 mg PO DAILY 01/07/19 08/17/22 History Atorvastatin [Lipitor] 20 mg PO DAILY 01/07/19 08/17/22 History Finasteride [Proscar] 5 mg PO DAILY 01/07/19 08/17/22 History Sertraline HCl [Zoloft] 50 mg PO DAILY 02/05/19 08/17/22 History Tamsulosin [Flomax] 0.4 mg PO HS 07/06/19 08/17/22 History Acetaminophen [Tylenol Arthritis] 650 mg PO HS 07/27/20 08/17/22 History Ferrous Sulfate [Feosol] 325 mg PO DAILY 07/27/20 08/17/22 History Gabapentin [Neurontin] 100 mg PO BID 12/06/20 08/17/22 History Nitroglycerin Sl Tabs [Nitrostat] 0.4 mg SL Q5M PRN 02/19/21 08/17/22 History Ascorbic Acid [Vitamin C] 500 mg PO DAILY 10/15/21 09/17/22 History Cholecalciferol (Vitamin D3) 125 mcg PO DAILY 09/14/21 08/17/22 History [Vitamin D3 (125 MCG = 5,000 IU)] Insulin Glargine,Hum.rec.anlog 30 unit SQ HS 09/14/21 08/17/22 History [Lantus Solostar Pen] Albuterol Inhaler [Ventolin Hfa 2 puff INHALATION RT-Q6H PRN 04/29/22 08/17/22 History Inhaler] Ibuprofen [Motrin Ib] 600 mg PO Q8H PRN 04/29/22 08/17/22 History Rivaroxaban [Xarelto] 20 mg PO DAILY 04/29/22 08/17/22 History Calcium Carbonate [Tums] 1,000 mg PO QID PRN tab 05/10/22 08/17/22 Rx Isosorbide Mononitrate ER [Imdur] 30 mg PO DAILY #30 tab 05/10/22 08/17/22 Rx Ipratropium-Albuterol Nebulize 3 ml INHALATION RT-QID PRN 07/14/22 08/17/22 History [Duoneb 0.5 mg-3 mg/3 ml Soln] Metoprolol Tartrate [Lopressor] 12.5 mg PO BID 07/14/22 08/17/22 History Acetaminophen Tab [Tylenol] 650 mg PO Q6H PRN 08/17/22 08/17/22 History Allergies Allergy/AdvReac Type Severity Reaction Status Date / Time No Known Allergies Allergy Verified 08/17/22 21:00 Physical Exam Vitals: Vital Signs Temp Pulse Pulse Resp BP BP Pulse Ox 08/18/22 08:35 97.4 F L 66 16 175/81 96 08/18/22 04:00 97.5 F L 67 18 165/83 97 08/18/22 02:00 97.3 F L 69 17 159/76 99 08/18/22 00:18 72 16 177/70 96 08/17/22 23:29 62 16 175/86 97 08/17/22 20:19 98.8 F 65 18 177/90 99 Intake and Output 08/17/22 08/18/22 08/18/22 22:59 06:59 14:59 Intake Total 240 Output Total 1100 Balance -1100 240 Intake: Oral 240 Output: Urine 1100 Other: # Voids 1 # Bowel Movements 1 Weight 98.43 kg 151 kg - Constitutional General appearance: no acute distress - Respiratory Respiratory: bilateral: diminished, rales - Cardiovascular Rhythm: regular Heart sounds: normal: S1, S2 Abnormal Heart Sounds: systolic murmur Results 08/18/22 03:00 08/18/22 03:00 Cardiac Enzymes 08/17/22 08/17/22 08/18/22 Range/Units 21:07 21:07 00:04 AST 20 (17-59) U/L Troponin I 0.054 H* 0.093 H* (0.000-0.034) ng/mL 08/18/22 08/18/22 Range/Units 03:00 03:00 AST 18 (17-59) U/L Troponin I 0.141 H* (0.000-0.034) ng/mL Coagulation 08/17/22 Range/Units 21:07 PT 10.4 (9.0-12.0) sec APTT 25.2 (22.0-30.0) sec CBC 08/17/22 08/18/22 Range/Units 21:07 03:00 WBC 6.2 5.3 (3.8-10.6) k/uL RBC 3.39 L 3.56 L (4.30-5.90) m/uL Hgb 9.7 L 10.1 L (13.0-17.5) gm/dL Hct 32.1 L 33.7 L (39.0-53.0) % Plt Count 157 160 (150-450) k/uL Comprehensive Metabolic Panel 08/17/22 08/18/22 Range/Units 21:07 03:00 Sodium 137 139 (137-145) mmol/L Potassium 4.1 3.9 (3.5-5.1) mmol/L Chloride 96 L 96 L (98-107) mmol/L Carbon Dioxide 31 H 37 H (22-30) mmol/L BUN 20 19 (9-20) mg/dL Creatinine 1.04 1.16 (0.66-1.25) mg/dL Glucose 319 H 122 H (74-99) mg/dL Calcium 8.9 9.5 (8.4-10.2) mg/dL AST 20 18 (17-59) U/L ALT 12 13 (4-49) U/L Alkaline Phosphatase 112 101 (38-126) U/L Total Protein 5.6 L 5.8 L (6.3-8.2) g/dL Albumin 3.3 L 3.4 L (3.5-5.0) g/dL Current Medications Generic Name Dose Route Start Last Admin Trade Name Freq PRN Reason Stop Dose Admin Acetaminophen 650 mg 08/18/22 09:19 Acetaminophen Tab 325 Mg Tab PO Q6H PRN Fever and/ or Pain Albuterol Sulfate 2.5 mg 08/18/22 09:19 Albuterol Nebulized 2.5 Mg/3 Ml INHALATION RT-Q6H PRN Shortness Of Breath Aspirin 81 mg 08/19/22 09:00 Aspirin 81 Mg PO DAILY [facility] Atorvastatin Calcium 20 mg 08/19/22 09:00 Atorvastatin 20 Mg Tab PO DAILY [facility] Finasteride 5 mg 08/19/22 09:00 Finasteride 5 Mg Tab PO DAILY [facility] Furosemide 40 mg 08/18/22 09:00 08/18/22 08:44 Furosemide 10 Mg/Ml 4 Ml Vial IV 40 mg Q12HR [facility] Administration Gabapentin 100 mg 08/18/22 21:00 Gabapentin 100 Mg Cap PO BID [facility] Nitroglycerin/Dextrose 50 mg/ 250 mls @ 1.5 mls/hr 08/18/22 06:30 08/18/22 07:17 IV Solution IV 5 mcg/min .Q24H ALEXEY 1.5 mls/hr Administration Protocol 5 MCG/MIN Insulin Aspart 0 unit 08/18/22 07:30 08/18/22 08:14 Insulin Aspart (Novolog) 100 Unit/Ml Vial SQ Not Given ACHS [facility] Protocol Insulin Detemir 30 unit 08/18/22 21:00 Insulin Detemir (Levemir) 100 Unit/Ml Syr SQ HS [facility] Isosorbide Mononitrate 30 mg 08/19/22 09:00 Isosorbide Mononitrate Er 30 Mg Tab.Er.24h PO DAILY [facility] Losartan Potassium 25 mg 08/18/22 09:00 08/18/22 08:44 Losartan 25 Mg Tab PO 25 mg DAILY [facility] Administration Metoprolol Tartrate 12.5 mg 08/18/22 09:00 08/18/22 08:44 Metoprolol Tartrate 12.5 Mg Tab PO 12.5 mg BID [facility]LEX[facility] Administration Rivaroxaban 20 mg 08/19/22 09:00 Rivaroxaban 20 Mg Tab PO DAILY [facility] Protocol Sertraline HCl 50 mg 08/18/22 09:30 Sertraline 50 Mg Tab PO DAILY [facility] Tamsulosin HCl 0.4 mg 08/18/22 21:00 Tamsulosin 0.4 Mg Cap.Er.24h PO HS [facility] Intake and Output 08/17/22 08/18/22 08/18/22 22:59 06:59 14:59 Intake Total 240 Output Total 1100 Balance -1100 240 Intake: Oral 240 Output: Urine 1100 Other: # Voids 1 # Bowel Movements 1 Weight 98.43 kg 151 kg 08/18/22 03:00 08/18/22 03:00 Assessment and Plan Assessment: Assessment #1 hypertension emergency #2 heart failure exacerbation secondary to heart failure with preserved ejection fraction likely to be triggered by hypertension emergency #3 evidence of myocardial injury likely related to hypertension emergency #4 coronary artery disease with failed revascularization #5 history of permanent pacemaker #6 history of taking oral anticoagulation, the etiology is unknown Plan #1 start the patient on nitro drip titrated for the blood pressure #2 add losartan to the current medical regimen #3 start the patient on Lasix IV at 40 mg twice a day #4 monitor the kidney function and electrolytes #5 follow-up with the patient
--- NOTE | 2022-08-18 10:16 | P.HPIM ---
History of Present Illness Patient is a pleasant 77-year-old male with history of coronary disease and CABG came in with complaints of shortness of breath patient had normal ejection fraction the past patient also has a pacemaker. Patient has mildly elevated troponins patient is externally poor historian patient is on anti-correlation at home there is no documented history of atrial fibrillation. Can get much of the history from the patient patient had a BNP that is elevated to 3000 patient blood pressures found to be bit elevated on admission. Patient says he is compliant with his medications. Patient any fever chills patient had any significant cough with sputum production. REVIEW OF SYSTEMS: CONSTITUTIONAL: No fever, no malaise, no fatigue. HEENT: No recent visual problems or hearing problems. Denied any sore throat. CARDIOVASCULAR: No chest pain. PULMONARY: No shortness of breath, no cough, no hemoptysis. GASTROINTESTINAL: No diarrhea, no nausea, no vomiting, no abdominal pain. NEUROLOGICAL: No headaches, no weakness, no numbness. HEMATOLOGICAL: Denies any bleeding or petechiae. GENITOURINARY: Denies any burning micturition, frequency, or urgency. MUSCULOSKELETAL/RHEUMATOLOGICAL: Denies any joint pain, swelling, or any muscle pain. ENDOCRINE: Denies any polyuria or polydipsia. The rest of the 14-point review of systems is negative. PHYSICAL EXAMINATION: GENERAL: The patient is alert and oriented x3, not in any acute distress. Obese HEENT: Pupils are round and equally reacting to light. EOMI. No scleral icterus. No conjunctival pallor. Normocephalic, atraumatic. No pharyngeal erythema. No thyromegaly. CARDIOVASCULAR: S1 and S2 present. No murmurs, rubs, or gallops. PULMONARY: Chest is clear to auscultation, no wheezing or crackles. ABDOMEN: Soft, nontender, nondistended, normoactive bowel sounds. No palpable organomegaly. MUSCULOSKELETAL: No joint swelling or deformity. EXTREMITIES: No cyanosis, clubbing, or lateral lower extremity edema 2+ pitting extending up to both knees NEUROLOGICAL: Gross neurological examination did not reveal any focal deficits. SKIN: No rashes. Assessment and plan -Congestive heart failure chronic diastolic dysfunction with acute exacerbation patient was started on IV Lasix. Patient is also on nitro drip -Mild elevation of troponins: Secondary to probably CHF exacerbation -Coronary artery disease with CABG and a failed revascularization in the past -Patient is on anticoagulation with is also not sure why he is on 0 alto there is no documented history of atrial fibrillation upon review of the medical charts. Next line-hypertension patient was started back on his home medications were pressure is bit high and controlled -Type 2 diabetes mellitus -Hyperlipidemia -Benign prostatic hypertrophy DVT prophylaxis: She will be started back on anticoagulation will verify with family members reason for his anticoagulation Past Medical History Past Medical History: Coronary Artery Disease (CAD), Cancer, COPD, Diabetes Mellitus, Hyperlipidemia, Hypertension, Myocardial Infarction ([place]), Prostate Disorder Additional Past Medical History / Comment(s): prostate cancer with radiation > 20 years ago, nstemi, wears a brief incont urine/stool Last Myocardial Infarction Date:: 2017 History of Any Multi-Drug Resistant Organisms: ESBL, MRSA Date of last positivie culture/infection: 04/29/22 ESBL; 10/27/18 MRSA MDRO Source:: Urine-ESBL; Back-MRSA Past Surgical History: Coronary Bypass/CABG Additional Past Surgical History / Comment(s): 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,prostate bx, triple bypass 2017, bronchoscopy, picc line pt stated since removed Past Anesthesia/Blood Transfusion Reactions: No Reported Reaction Type of Cardiac Device: Permanent Pacemaker Device Placement Date:: 12/08/20 Past Psychological History: No Psychological Hx Reported Additional Psychological History / Comment(s): Pt resides with his son, Cristo. He uses a wheeled walker. He has a nebulizer. He no longer drives, his son drives. Smoking Status: Former smoker Past Alcohol Use History: None Reported Additional Past Alcohol Use History / Comment(s): Pt started smoking as a teen and was a 3 ppd smoker but quit in 1990. Past Drug Use History: None Reported Additional Drug Use History / Comment(s): Used to use alcohol regularely. States he goes to [employer] meetings. - Past Family History Father Additional Family Medical History / Comment(s): old age Mother Family Medical History: Coronary Artery Disease (CAD), Diabetes Mellitus Additional Family Medical History / Comment(s): CABG Medications and Allergies Home Medications Medication Instructions Recorded Confirmed Type Aspirin [[place] Aspirin EC] 81 mg PO DAILY 01/07/19 08/17/22 History Atorvastatin [Lipitor] 20 mg PO DAILY 01/07/19 08/17/22 History Finasteride [Proscar] 5 mg PO DAILY 01/07/19 08/17/22 History Sertraline HCl [Zoloft] 50 mg PO DAILY 02/05/19 08/17/22 History Tamsulosin [Flomax] 0.4 mg PO HS 07/06/19 08/17/22 History Acetaminophen [Tylenol Arthritis] 650 mg PO HS 07/27/20 08/17/22 History Ferrous Sulfate [Feosol] 325 mg PO DAILY 07/27/20 08/17/22 History Gabapentin [Neurontin] 100 mg PO BID 12/06/20 08/17/22 History Nitroglycerin Sl Tabs [Nitrostat] 0.4 mg SL Q5M PRN 02/19/21 08/17/22 History Ascorbic Acid [Vitamin C] 500 mg PO DAILY 09/14/21 08/17/22 History Cholecalciferol (Vitamin D3) 125 mcg PO DAILY 09/14/21 08/17/22 History [Vitamin D3 (125 MCG = 5,000 IU)] Insulin Glargine,Hum.rec.anlog 30 unit SQ HS 09/14/21 08/17/22 History [Lantus Solostar Pen] Albuterol Inhaler [Ventolin Hfa 2 puff INHALATION RT-Q6H PRN 04/29/22 08/17/22 History Inhaler] Ibuprofen [Motrin Ib] 600 mg PO Q8H PRN 04/29/22 08/17/22 History Rivaroxaban [Xarelto] 20 mg PO DAILY 04/29/22 08/17/22 History Calcium Carbonate [Tums] 1,000 mg PO QID PRN tab 05/10/22 08/17/22 Rx Isosorbide Mononitrate ER [Imdur] 30 mg PO DAILY #30 tab 05/10/22 08/17/22 Rx Ipratropium-Albuterol Nebulize 3 ml INHALATION RT-QID PRN 07/14/22 08/17/22 History [Duoneb 0.5 mg-3 mg/3 ml Soln] Metoprolol Tartrate [Lopressor] 12.5 mg PO BID 07/14/22 08/17/22 History Acetaminophen Tab [Tylenol] 650 mg PO Q6H PRN 08/17/22 08/17/22 History Allergies Allergy/AdvReac Type Severity Reaction Status Date / Time No Known Allergies Allergy Verified 08/17/22 21:00 Physical Exam Vitals: Vital Signs Temp Pulse Pulse Resp BP BP Pulse Ox 08/18/22 08:35 97.4 F L 66 16 175/81 96 08/18/22 04:00 97.5 F L 67 18 165/83 97 08/18/22 02:00 97.3 F L 69 17 159/76 99 08/18/22 00:18 72 16 177/70 96 08/17/22 23:29 62 16 175/86 97 08/17/22 20:19 98.8 F 65 18 177/90 99 Intake and Output 08/17/22 08/18/22 08/18/22 22:59 06:59 14:59 Intake Total 240 Output Total 1100 Balance -1100 240 Intake: Oral 240 Output: Urine 1100 Other: # Voids 1 # Bowel Movements 1 Weight 98.43 kg 151 kg Results CBC & Chem 7: 08/18/22 03:00 08/18/22 03:00 Labs: Abnormal Lab Results - Last 24 Hours (Table) 08/17/22 08/17/22 08/17/22 Range/Units 21:07 21:07 21:07 RBC 3.39 L (4.30-5.90) m/uL Hgb 9.7 L (13.0-17.5) gm/dL Hct 32.1 L (39.0-53.0) % MCHC 30.3 L (31.0-37.0) g/dL Lymphocytes # 0.5 L (1.0-4.8) k/uL VBG pH (7.31-7.41) VBG HCO3 (24-28) mmol/L Chloride 96 L (98-107) mmol/L Carbon Dioxide 31 H (22-30) mmol/L Glucose 319 H (74-99) mg/dL POC Glucose (mg/dL) (70-110) mg/dL Troponin I 0.054 H* (0.000-0.034) ng/mL Total Protein 5.6 L (6.3-8.2) g/dL Albumin 3.3 L (3.5-5.0) g/dL Urine Protein (Negative) Urine Glucose (UA) (Negative) Urine Blood (Negative) Ur Leukocyte Esterase (Negative) Urine WBC (0-5) /hpf Urine WBC Clumps (None) /hpf Urine Bacteria (None) /hpf Urine Mucus (None) /hpf 08/17/22 08/17/22 08/18/22 Range/Units 22:11 23:29 00:04 RBC (4.30-5.90) m/uL Hgb (13.0-17.5) gm/dL Hct (39.0-53.0) % MCHC (31.0-37.0) g/dL Lymphocytes # (1.0-4.8) k/uL VBG pH 7.48 H (7.31-7.41) VBG HCO3 33 H (24-28) mmol/L Chloride (98-107) mmol/L Carbon Dioxide (22-30) mmol/L Glucose (74-99) mg/dL POC Glucose (mg/dL) (70-110) mg/dL Troponin I 0.093 H* (0.000-0.034) ng/mL Total Protein (6.3-8.2) g/dL Albumin (3.5-5.0) g/dL Urine Protein 2+ H (Negative) Urine Glucose (UA) 3+ H (Negative) Urine Blood Trace H (Negative) Ur Leukocyte Esterase Moderate H (Negative) Urine WBC 34 H (0-5) /hpf Urine WBC Clumps Few H (None) /hpf Urine Bacteria Occasional H (None) /hpf Urine Mucus Rare H (None) /hpf 08/18/22 08/18/22 08/18/22 Range/Units 03:00 03:00 03:00 RBC 3.56 L (4.30-5.90) m/uL Hgb 10.1 L (13.0-17.5) gm/dL Hct 33.7 L (39.0-53.0) % MCHC 30.0 L (31.0-37.0) g/dL Lymphocytes # 0.6 L (1.0-4.8) k/uL VBG pH (7.31-7.41) VBG HCO3 (24-28) mmol/L Chloride 96 L (98-107) mmol/L Carbon Dioxide 37 H (22-30) mmol/L Glucose 122 H (74-99) mg/dL POC Glucose (mg/dL) (70-110) mg/dL Troponin I 0.141 H* (0.000-0.034) ng/mL Total Protein 5.8 L (6.3-8.2) g/dL Albumin 3.4 L (3.5-5.0) g/dL Urine Protein (Negative) Urine Glucose (UA) (Negative) Urine Blood (Negative) Ur Leukocyte Esterase (Negative) Urine WBC (0-5) /hpf Urine WBC Clumps (None) /hpf Urine Bacteria (None) /hpf Urine Mucus (None) /hpf 08/18/22 Range/Units 06:24 RBC (4.30-5.90) m/uL Hgb (13.0-17.5) gm/dL Hct (39.0-53.0) % MCHC (31.0-37.0) g/dL Lymphocytes # (1.0-4.8) k/uL VBG pH (7.31-7.41) VBG HCO3 (24-28) mmol/L Chloride (98-107) mmol/L Carbon Dioxide (22-30) mmol/L Glucose (74-99) mg/dL POC Glucose (mg/dL) 112 H (70-110) mg/dL Troponin I (0.000-0.034) ng/mL Total Protein (6.3-8.2) g/dL Albumin (3.5-5.0) g/dL Urine Protein (Negative) Urine Glucose (UA) (Negative) Urine Blood (Negative) Ur Leukocyte Esterase (Negative) Urine WBC (0-5) /hpf Urine WBC Clumps (None) /hpf Urine Bacteria (None) /hpf Urine Mucus (None) /hpf Thrombosis Risk Factor Assmnt - Choose All That Apply Any of the Below Risk Factors Present?: Yes Each Factor Represents 1 point: Abnormal pulmonary function (COPD), Obesity (BMI >25), Serious lung disease incl. pneumonia (< 1month), Swollen legs (current) Thrombosis Risk Factor Assessment Total Risk Factor Score: 4 Thrombosis Risk Factor Assessment Level: Moderate Risk
[2022-08-18 11:58] LABS: Glucose,Whole Blood 185 mg/dL (70-110)
[2022-08-18] MEDS: SERTRALINE 50 MG TAB PO SCH (12:47)
[2022-08-18 16:51] LABS: Glucose,Whole Blood 200 mg/dL (70-110)
[2022-08-18] MEDS: GABAPENTIN 100 MG CAP PO SCH (20:34)
[2022-08-18] MEDS: INSULIN DETEMIR (LEVEMIR) 100 UNIT/ML SYR SQ SCH (20:34)
[2022-08-18] MEDS: TAMSULOSIN 0.4 MG CAP.ER.24H PO SCH (20:34)
[2022-08-18 20:44] LABS: Glucose,Whole Blood 276 mg/dL (70-110)
[2022-08-19 06:15] LABS: Glucose,Whole Blood 138 mg/dL (70-110)
[2022-08-19] MEDS: INSULIN ASPART (NovoLOG) 100 UNIT/ML VIAL SQ SCH ×4 (06:29→20:59)
[2022-08-19 07:30] LABS: Calcium 9.1 mg/dL (8.4-10.2); Magnesium 1.4 mg/dL (1.6-2.3); Potassium 3.9 mmol/L (3.5-5.1)
[2022-08-19] MEDS: FUROSEMIDE 10 MG/ML 4 ML VIAL IV SCH ×2 (08:42→21:00)
[2022-08-19] MEDS: SERTRALINE 50 MG TAB PO SCH (08:43)
[2022-08-19] MEDS: FINASTERIDE 5 MG TAB PO SCH (08:43)
[2022-08-19] MEDS: RIVAROXABAN 20 MG TAB PO SCH (08:43)
[2022-08-19] MEDS: LOSARTAN 25 MG TAB PO SCH (08:43)
[2022-08-19] MEDS: ASPIRIN 81 MG PO SCH (08:43)
[2022-08-19] MEDS: GABAPENTIN 100 MG CAP PO SCH ×2 (08:43→20:59)
[2022-08-19] MEDS: METOPROLOL TARTRATE 12.5 MG TAB PO SCH ×2 (08:43→20:59)
[2022-08-19] MEDS: ATORVASTATIN 20 MG TAB PO SCH (08:43)
[2022-08-19] MEDS: NITROGLYCERIN-D5W PMX 50 MG in DEXTROSE/WATER 1 250ML.BAG IV SCH (08:44)
[2022-08-19] MEDS ORDERED: ISOSORBIDE MONONITRATE ER 30 MG TAB.ER.24H PO SCH (09:00)
[2022-08-19 11:41] LABS: Glucose,Whole Blood 375 mg/dL (70-110)
[2022-08-19] MEDS ORDERED: Magnesium Replacement Protocol 1 EACH MISC MISCELLANE PRN (12:07)
[2022-08-19] MEDS: SPIRONOLACTONE 25 MG TAB PO SCH (13:09)
--- NOTE | 2022-08-19 13:45 | P.PN ---
Subjective Progress Note Date: 08/19/22 HISTORY OF PRESENT ILLNESS: The patient is a 77-year-old gentleman who sees Dr. Harper irregularly with a past medical history significant for coronary artery disease and status post CABG in 2018 where at that point he underwent CHAHAL to LAD and SVG to OM as well as SVG to RCA. Also he does have history of heart failure with preserved ejection fraction. Beside that the patient does have history of permanent pacemaker and also hypertension and dyslipidemia. Requested to see the patient as a consult today for further evaluation of abnormal cardiac enzymes and elevated troponin. The patient somewhat is a poor historian. He stated that for the last few days he has not been feeding well. He presented with increasing shortness of breath for the last 2-3 days associated with cough and some sputum production. No fever and no chills. On further questioning he also indicates that he has been experiencing chest discomfort mainly in the upper chest as well as in the lower neck. He reports no dizziness or lightheadedness and no feeling of heart racing or fluttering and no presyncope or syncope and no sweating. He presented to the emergency department for further evaluation. He underwent a workup including EKG showing sinus rhythm with ventricular paced rhythm. He also underwent a chest x-ray which showed chronic changes was a small bilateral pleural effusion. His NT proBNP came in to be elevated at 3000. The troponin also came in to be mildly elevated. Beside that when he presented to the hospital to pressure has been elevated and his systolic pressure was more than 180 mmHg. The patient stated that he has been compliant with his medications. On examination he definitely looks in heart failure was bilateral lower extremities edema and diminished breathing sounds bilaterally with bilateral rhonchi. His last echo from 2017 showed preserved left ventricular systolic function but the study was technically difficult and no obvious significant valvular abnormalities noted. The patient is receiving Xarelto at home for unknown reason. Reviewing the previous medical records did not indicate any history of atrial fibrillation 08/19/2022 Patient examined this morning at the bedside. Patient denies chest pain or pressure. Reports improvement in his SOB. He remains on IV lasix. He continues to have lower extremity edema. Creatinine stable today at 1.16. Echocardiogram performed in May 2022 revealed ejection fraction 45-50%. PHYSICAL EXAM: VITAL SIGNS: Reviewed. GENERAL: Well-developed in no acute distress. NECK: Supple. No JVD or thyromegaly LUNGS: Respirations even and unlabored. Lungs essentially clear to auscultation bilaterally. HEART: Regular rate and rhythm. S1 and S2 heard. EXTREMITIES: Normal range of motion. No clubbing or cyanosis. Peripheral pulses intact. 1-2+ bilateral lower extremity edema, worse at ankles ASSESSMENT: Hypertensive emergency Acute on chronic heart failure with mildly reduced ejection fraction Abnormal troponins, not suggestive of acute coronary syndrome Coronary artery disease with previous CABG History of permanent pacemaker insertion Hypertension Hyperlipidemia PLAN: Continue current cardiac medications Continue IV lasix Monitor kidney function, daily weights, accurate I&O Add aldactone 25 mg daily Increase losartan to 50 mg daily Further recommendations pending patient's course Nurse practitioner note has been reviewed by physician. Signing provider agrees with the documented findings, assessment, and plan of care. Objective - Vital Signs Vital signs: Vital Signs Temp 96.3 F L 08/19/22 08:25 Pulse 64 08/19/22 11:20 Resp 16 08/19/22 11:20 BP 145/62 08/19/22 11:20 Pulse Ox 98 08/19/22 11:20 FiO2 Intake & Output 08/18/22 08/19/22 08/19/22 18:59 06:59 18:59 Intake Total 480 249 118 Output Total 5765 393 7532 Balance -870 -151 -1382 Weight 96.9 kg Intake: Intake, IV Titration 9 Amount Nitroglycerin-D5w Pmx 50 9 mg In Dextrose/Water 1 250ml.bag @ 5 MCG/MIN 1.5 mls/hr IV .Q24H [facility] Rx#: [id number] Oral 480 240 118 Output: Urine 2653 273 9780 - Labs CBC & Chem 7: 08/18/22 03:00 08/19/22 05:53 Labs: Abnormal Lab Results - Last 24 Hours (Table) 08/18/22 08/18/22 08/19/22 Range/Units 16:36 20:40 05:53 Chloride 91 L (98-107) mmol/L Carbon Dioxide 40 H (22-30) mmol/L BUN 22 H (9-20) mg/dL Glucose 140 H (74-99) mg/dL POC Glucose (mg/dL) 200 H 276 H (70-110) mg/dL Magnesium 1.4 L (1.6-2.3) mg/dL 08/19/22 08/19/22 Range/Units 06:14 11:40 Chloride (98-107) mmol/L Carbon Dioxide (22-30) mmol/L BUN (9-20) mg/dL Glucose (74-99) mg/dL POC Glucose (mg/dL) 138 H 375 H (70-110) mg/dL Magnesium (1.6-2.3) mg/dL Microbiology - Last 24 Hours (Table) 08/17/22 23:29 Urine Culture - Preliminary Urine,Voided Gram Neg Bacilli
--- NOTE | 2022-08-19 14:11 | P.PN ---
Subjective Progress Note Date: 08/19/22 This is a 77-year-old gentleman admitted with acute on chronic CHF, diastolic dysfunction, CAD, and multiple other medical issues. Nitroglycerin drip recently discontinued. Positive edema, diuresing well on Lasix IV push, with 24-hour I&O reflecting a negative fluid balance. Renal function stable Interm ittent productive cough- white phlegm. Breathing improved, down to baseline of 3 L nasal cannula. Telemetry sinus rhythm. Denies chest pain, palpitations or shortness of breath. Objective - Vital Signs Vital signs: Vital Signs Temp 96.3 F L 08/19/22 08:25 Pulse 64 08/19/22 11:20 Resp 16 08/19/22 11:20 BP 145/62 08/19/22 11:20 Pulse Ox 98 08/19/22 11:20 FiO2 Intake & Output 08/18/22 08/19/22 08/19/22 18:59 06:59 18:59 Intake Total 480 249 118 Output Total 5420 998 2539 Balance -870 -151 -1382 Weight 96.9 kg Intake: Intake, IV Titration 9 Amount Nitroglycerin-D5w Pmx 50 9 mg In Dextrose/Water 1 250ml.bag @ 5 MCG/MIN 1.5 mls/hr IV .Q24H [facility] Rx#: [id number] Oral 480 240 118 Output: Urine 1454 990 6527 - Exam GENERAL: Sitting up in bed, alert and oriented x3, not in any acute distress. HEENT: Pupils are round and equally reacting to light. EOMI. No scleral icterus. No conjunctival pallor. Normocephalic, atraumatic. Neck:supple, no JVD CARDIOVASCULAR: S1 and S2 present. No murmurs, rubs, or gallops. PULMONARY: Chest is clear to auscultation, no wheezing or crackles. ABDOMEN: Soft, nontender, nondistended, normoactive bowel sounds. No palpable organomegaly. EXTREMITIES: Positive bilateral lower extremity edema ,No cyanosis, clubbing. NEUROLOGICAL: Gross neurological examination did not reveal any focal deficits. SKIN: No rashes, warm and dry. - Labs CBC & Chem 7: 08/18/22 03:00 08/19/22 05:53 Labs: Abnormal Lab Results - Last 24 Hours (Table) 08/18/22 08/18/22 08/19/22 Range/Units 16:36 20:40 05:53 Chloride 91 L (98-107) mmol/L Carbon Dioxide 40 H (22-30) mmol/L BUN 22 H (9-20) mg/dL Glucose 140 H (74-99) mg/dL POC Glucose (mg/dL) 200 H 276 H (70-110) mg/dL Magnesium 1.4 L (1.6-2.3) mg/dL 08/19/22 08/19/22 Range/Units 06:14 11:40 Chloride (98-107) mmol/L Carbon Dioxide (22-30) mmol/L BUN (9-20) mg/dL Glucose (74-99) mg/dL POC Glucose (mg/dL) 138 H 375 H (70-110) mg/dL Magnesium (1.6-2.3) mg/dL Microbiology - Last 24 Hours (Table) 08/17/22 23:29 Urine Culture - Preliminary Urine,Voided Gram Neg Bacilli Assessment and Plan Assessment: -Congestive heart failure chronic systolic dysfunction with acute exacerbation , EF 45-50% May 2022 -Mild elevation of troponins: Secondary to probably CHF exacerbation -History of permanent pacemaker implantation -Coronary artery disease with CABG and a failed revascularization in the past -hypertension -Type 2 diabetes mellitus -Hyperlipidemia -Benign prostatic hypertrophy -Recent fall, patient states over a week ago Plan: Continue on current medication regime ,monitoring and symptomatic treatment. Maintain IV push diuretics as per cardiology with Aldactone added to med regimen. Close monitoring of renal function with repeat labs ordered for a. m. Discharge planning in progress possibly in 24-48 hours pending final DC recommendations and clearance per cardiology. The impression and plan of care has been dictated as directed. : I performed a history and examination of this patient, discussed the same with the dictator. I agree with the dictator's note ,documented as a scribe. Any additional findings or plans will be noted.
[2022-08-19] MEDS: MAGNESIUM SULFATE-D5W PMX 1 GM in DEXTROSE/WATER 1 100ML.BAG IVPB SCH ×3 (14:46→19:22)
[2022-08-19 16:43] LABS: Glucose,Whole Blood 228 mg/dL (70-110)
[2022-08-19 19:54] LABS: Glucose,Whole Blood 214 mg/dL (70-110)
[2022-08-19] MEDS: TAMSULOSIN 0.4 MG CAP.ER.24H PO SCH (20:59)
[2022-08-19] MEDS: INSULIN DETEMIR (LEVEMIR) 100 UNIT/ML SYR SQ SCH (20:59)
[2022-08-20 06:01] LABS: Glucose,Whole Blood 187 mg/dL (70-110)
[2022-08-20] MEDS: INSULIN ASPART (NovoLOG) 100 UNIT/ML VIAL SQ SCH ×4 (06:24→21:42)
[2022-08-20] MEDS: LOSARTAN 50 MG TAB PO SCH (09:23)
[2022-08-20] MEDS: FUROSEMIDE 10 MG/ML 4 ML VIAL IV SCH (09:23)
[2022-08-20] MEDS: METOPROLOL TARTRATE 12.5 MG TAB PO SCH ×2 (09:23→21:41)
[2022-08-20] MEDS: ASPIRIN 81 MG PO SCH (09:23)
[2022-08-20] MEDS: ATORVASTATIN 20 MG TAB PO SCH (09:23)
[2022-08-20] MEDS: GABAPENTIN 100 MG CAP PO SCH ×2 (09:23→21:41)
[2022-08-20] MEDS: SERTRALINE 50 MG TAB PO SCH (09:23)
[2022-08-20] MEDS: RIVAROXABAN 20 MG TAB PO SCH (09:23)
[2022-08-20] MEDS: SPIRONOLACTONE 25 MG TAB PO SCH (09:23)
[2022-08-20] MEDS: FINASTERIDE 5 MG TAB PO SCH (09:23)
[2022-08-20 09:45] LABS: Calcium 8.6 mg/dL (8.4-10.2); Potassium 4.2 mmol/L (3.5-5.1)
--- NOTE | 2022-08-20 12:15 | P.PN ---
Subjective Progress Note Date: 08/20/22 HISTORY OF PRESENT ILLNESS: The patient is a 77-year-old gentleman who sees Dr. Harper irregularly with a past medical history significant for coronary artery disease and status post CABG in 2018 where at that point he underwent CHAHAL to LAD and SVG to OM as well as SVG to RCA. Also he does have history of heart failure with preserved ejection fraction. Beside that the patient does have history of permanent pacemaker and also hypertension and dyslipidemia. Requested to see the patient as a consult today for further evaluation of abnormal cardiac enzymes and elevated troponin. The patient somewhat is a poor historian. He stated that for the last few days he has not been feeding well. He presented with increasing shortness of breath for the last 2-3 days associated with cough and some sputum production. No fever and no chills. On further questioning he also indicates that he has been experiencing chest discomfort mainly in the upper chest as well as in the lower neck. He reports no dizziness or lightheadedness and no feeling of heart racing or fluttering and no presyncope or syncope and no sweating. He presented to the emergency department for further evaluation. He underwent a workup including EKG showing sinus rhythm with ventricular paced rhythm. He also underwent a chest x-ray which showed chronic changes was a small bilateral pleural effusion. His NT proBNP came in to be elevated at 3000. The troponin also came in to be mildly elevated. Beside that when he presented to the hospital to pressure has been elevated and his systolic pressure was more than 180 mmHg. The patient stated that he has been compliant with his medications. On examination he definitely looks in heart failure was bilateral lower extremities edema and diminished breathing sounds bilaterally with bilateral rhonchi. His last echo from 2018 showed preserved left ventricular systolic function but the study was technically difficult and no obvious significant valvular abnormalities noted. The patient is receiving Xarelto at home for unknown reason. Reviewing the previous medical records did not indicate any history of atrial fibrillation 08/19/2022 Patient examined this morning at the bedside. Patient denies chest pain or pressure. Reports improvement in his SOB. He remains on IV lasix. He continues to have lower extremity edema. Creatinine stable today at 1.16. Echocardiogram performed in May 2022 revealed ejection fraction 45-50%. 08/20/2022 Patient examined this morning at the bedside. Patient denies chest pain or pressure. He denies shortness of breath. Patient's creatinine increased today to 1.54, up from 1.1 yesterday. Patient's vital signs are stable. PHYSICAL EXAM: VITAL SIGNS: Reviewed. GENERAL: Well-developed in no acute distress. NECK: Supple. No JVD or thyromegaly LUNGS: Respirations even and unlabored. Lungs essentially clear to auscultation bilaterally. HEART: Regular rate and rhythm. S1 and S2 heard. EXTREMITIES: Normal range of motion. No clubbing or cyanosis. Peripheral pulses intact. 1-2+ bilateral lower extremity edema, worse at ankles ASSESSMENT: Hypertensive emergency Acute on chronic heart failure with mildly reduced ejection fraction Abnormal troponins, not suggestive of acute coronary syndrome Coronary artery disease with previous CABG History of permanent pacemaker insertion Hypertension Hyperlipidemia Acute kidney injury PLAN: Continue current cardiac medications Discontinue Lasix and Aldactone. Recheck kidney function in a.m. If kidney function improves, will begin patient on oral Lasix Further recommendations pending patient's course Nurse practitioner note has been reviewed by physician. Signing provider agrees with the documented findings, assessment, and plan of care. Objective - Vital Signs Vital signs: Vital Signs Temp 98 F 08/20/22 09:28 Pulse 81 08/20/22 09:28 Resp 19 08/20/22 09:28 BP 127/57 08/20/22 09:28 Pulse Ox 96 08/20/22 09:28 FiO2 Intake & Output 08/19/22 08/20/22 08/20/22 18:59 06:59 18:59 Intake Total 236 Output Total 1500 Balance -1264 Weight 97.5 kg Intake: Oral 236 Output: Urine 1500 Other: Voiding Method External Catheter External Catheter - Labs CBC & Chem 7: 08/18/22 03:00 08/20/22 08:33 Labs: Abnormal Lab Results - Last 24 Hours (Table) 08/19/22 08/19/22 08/20/22 Range/Units 16:41 19:51 05:56 Chloride (98-107) mmol/L Carbon Dioxide (22-30) mmol/L BUN (9-20) mg/dL Creatinine (0.66-1.25) mg/dL Glucose (74-99) mg/dL POC Glucose (mg/dL) 228 H 214 H 187 H (70-110) mg/dL 08/20/22 Range/Units 08:33 Chloride 89 L (98-107) mmol/L Carbon Dioxide 38 H (22-30) mmol/L BUN 35 H (9-20) mg/dL Creatinine 1.54 H (0.66-1.25) mg/dL Glucose 179 H (74-99) mg/dL POC Glucose (mg/dL) (70-110) mg/dL Microbiology - Last 24 Hours (Table) 08/17/22 23:29 Urine Culture - Final Urine,Voided Klebsiella pneumoniae Escherichia coli
[2022-08-20] MEDS: ERTAPENEM 1 GM in SODIUM CHLORIDE 0.9% 50 ML IVPB SCH (12:16)
[2022-08-20 12:28] LABS: Glucose,Whole Blood 175 mg/dL (70-110)
[2022-08-20 17:12] LABS: Glucose,Whole Blood 287 mg/dL (70-110)
--- NOTE | 2022-08-20 18:40 | P.PN ---
Subjective Progress Note Date: 08/20/22 This is a 77-year-old gentleman admitted with acute on chronic CHF, diastolic dysfunction, CAD, and multiple other medical issues. Nitroglycerin drip recently discontinued. Positive edema, diuresing well on Lasix IV push, with 24-hour I&O reflecting a negative fluid balance. Renal function stable Interm ittent productive cough- white phlegm. Breathing improved, down to baseline of 3 L nasal cannula. Telemetry sinus rhythm. Denies chest pain, palpitations or shortness of breath. 08/20/2022 worsening renal function, Aldactone and Lasix discontinued. Antibiotics adjusted to ertapenem secondary to urine cultures reporting ESBL. Afebrile. Maintaining O2 sats in the mid to high 90s on 2 L nasal cannula. Denies chest pain, palpitations or increasing shortness of breath. Objective - Vital Signs Vital signs: Vital Signs Temp 98 F 08/20/22 09:28 Pulse 81 08/20/22 09:28 Resp 19 08/20/22 09:28 BP 127/57 08/20/22 09:28 Pulse Ox 96 08/20/22 09:28 FiO2 Intake & Output 08/19/22 08/20/22 08/20/22 18:59 06:59 18:59 Intake Total 236 Output Total 1500 Balance -1264 Weight 97.5 kg Intake: Oral 236 Output: Urine 1500 Other: Voiding Method External Catheter External Catheter - Exam GENERAL: Sitting up in chair, alert and oriented 3, no acute distress HEENT: Pupils are round and equally reacting to light. EOMI. No scleral icterus. No conjunctival pallor. Normocephalic, atraumatic. Neck:supple, no JVD CARDIOVASCULAR: S1 and S2 present regular, No murmurs, rubs, or gallops. PULMONARY: Chest is clear to auscultation, no wheezing or crackles. ABDOMEN: Soft, nontender, nondistended, normoactive bowel sounds. No palpable organomegaly. EXTREMITIES: Positive bilateral lower extremity edema ,No cyanosis, clubbing. NEUROLOGICAL: Cranial nerves II through XII grossly intact, no focal deficits. SKIN: No rashes, warm and dry. - Labs CBC & Chem 7: 08/18/22 03:00 08/20/22 08:33 Labs: Abnormal Lab Results - Last 24 Hours (Table) 08/19/22 08/19/2208/19/22 Range/Units 11:40 16:41 19:51 Chloride (98-107) mmol/L Carbon Dioxide (22-30) mmol/L BUN (9-20) mg/dL Creatinine (0.66-1.25) mg/dL Glucose (74-99) mg/dL POC Glucose (mg/dL) 375 H 228 H 214 H (70-110) mg/dL 08/20/22 08/20/22 Range/Units 05:56 08:33 Chloride 89 L (98-107) mmol/L Carbon Dioxide 38 H (22-30) mmol/L BUN 35 H (9-20) mg/dL Creatinine 1.54 H (0.66-1.25) mg/dL Glucose 179 H (74-99) mg/dL POC Glucose (mg/dL) 187 H (70-110) mg/dL Microbiology - Last 24 Hours (Table) 08/17/22 23:29 Urine Culture - Preliminary Urine,Voided Gram Neg Bacilli Assessment and Plan Assessment: -Congestive heart failure chronic systolic dysfunction with acute exacerbation , EF 45-50% May 2022 -Hypertensive emergency -Mild elevation of troponins: Secondary to probably CHF exacerbation -Acute UTI with ESBL E. coli -History of permanent pacemaker implantation -Coronary artery disease with CABG and a failed revascularization in the past -hypertension -Type 2 diabetes mellitus -Hyperlipidemia -Benign prostatic hypertrophy -Recent fall, patient states over a week ago Plan: Continue on current medication regime ,monitoring and symptomatic treatment. Diuretics discontinued ,Close monitoring of renal function with repeat labs ordered for a.m. and Biaxin adjusted, infectious disease consulted. The impression and plan of care has been dictated as directed. : I performed a history and examination of this patient, discussed the same with the dictator. I agree with the dictator's note ,documented as a scribe. Any additional findings or plans will be noted.
[2022-08-20 20:10] LABS: Glucose,Whole Blood 197 mg/dL (70-110)
[2022-08-20] MEDS: TAMSULOSIN 0.4 MG CAP.ER.24H PO SCH (21:41)
[2022-08-20] MEDS: INSULIN DETEMIR (LEVEMIR) 100 UNIT/ML SYR SQ SCH (21:41)
--- NOTE | 2022-08-20 22:43 | P.CONS ---
History of Present Illness - Reason for Consult Consult date: 08/20/22 ESBL uti Requesting physician: Liliya Thapa - Chief Complaint shortness of breath x few days - History of Present Illness History of Present Illness : Patient is 77-year-old male presenting to the hospital 3 days ago on 08/17/2022 for evaluation of increasing shortness of breath that apparently has been getting worse for the last few days patient denies having any chest pain did have occasional cough but no sputum production. Denies any nausea vomiting no abdominal pain and no diarrhea patient on presentation to the hospital was afebrile and no fever have been recorded subsequently patient did have a elevated BUN and creatinine and white count has been normal urine has been positive: PCR was negative urine culture finalized with ESBL Klebsiella and E. coli patient was treated with the Rocephin which was switched to Invanz today infectious disease was consulted for further management of antibiotic therapy, patient did have some difficulty urination and burning but no hematuria suprapubic or flank pain Review of system: CONSTITUTIONAL: Positive for weakness denies high-grade fever. EYES: No complaint. ENT: No complaint. RESPIRATORY: As per history of present illness CARDIOVASCULAR: No complaint. GENITOURINARY: As per history of present illness GASTROINTESTINAL: No complaint. MUSCULOSKELETAL: No complaint. INTEGUMENTARY : No complaint. PSYCHOLOGIC: No complaint. ENDOCRINE: No complaint. NEUROLOGIC: No complaint. Past medical history : Reviewed, documented below Past surgical history : Reviewed, documented below Social history: Reviewed, documented below Medications: Reviewed, as documented below EXAMINATION: Vital sigans= Reviewed and documented below GENERAL DESCRIPTION: Elderly male lying in bed, no distress. No tachypnea or accessory muscle of respiration use. HEENT: Shows Pallor , no scleral icterus. Oral mucous membrane is dry. NECK: Trachea central, no thyromegaly. LUNGS: Unlabored breathing. Decreased breath sound at the base. No wheeze or crackle. HEART: S1, S2, regular rate and rhythm. ABDOMEN: Soft, no tenderness , guarding or rigidity EXTREMITIES: No edema feet SKIN: No rash, no masses palpable. NEUROLOGICAL: The patient is awake, alert, oriented x3, mood and affect normal. LABS AND RADIOLOGY: Reviewed results see below Assessment : 1patient with a difficulty urination some burning positive UA with urine finalized with ESBL Klebsiella and E. coli hence patient seem to have shown some clinical improvement on Rocephin questionably E. coli the main pathogen clinically behaving as a cystitis plan as pyelonephritis in this patient without fever or elevated white count Plan: 1-continue with Invanz 1 g daily 2-repeat a UA and a culture 3-check ultrasound of the kidneys and bladder area We will follow on clinical condition and cultures to further adjust medication if needed Thank you for this consultation we will follow the patient along with you Past Medical History Past Medical History: Coronary Artery Disease (CAD), Cancer, COPD, Diabetes Mellitus, Hyperlipidemia, Hypertension, Myocardial Infarction (SC), Prostate Disorder Additional Past Medical History / Comment(s): prostate cancer with radiation > 20 years ago, nstemi, wears a brief incont urine/stool Last Myocardial Infarction Date:: 2017 History of Any Multi-Drug Resistant Organisms: ESBL, MRSA Year Discovered:: 04/29/22 ESBL; 10/27/18 MRSA MDRO Source:: Urine-ESBL; Back-MRSA Past Surgical History: Coronary Bypass/CABG Additional Past Surgical History / Comment(s): 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,prostate bx, triple bypass 2017, bronchoscopy, picc line pt stated since removed Past Anesthesia/Blood Transfusion Reactions: No Reported Reaction Type of Cardiac Device: Permanent Pacemaker Device Placement Date:: 12/08/20 Past Psychological History: No Psychological Hx Reported Additional Psychological History / Comment(s): Pt resides with his son, Cristo. He uses a wheeled walker. He has a nebulizer. He no longer drives, his son drives. Smoking Status: Former smoker Past Alcohol Use History: None Reported Additional Past Alcohol Use History / Comment(s): Pt started smoking as a teen and was a 3 ppd smoker but quit in 1990. Past Drug Use History: None Reported Additional Drug Use History / Comment(s): Used to use alcohol regularely. States he goes to [employer] meetings. - Past Family History Father Additional Family Medical History / Comment(s): old age Mother Family Medical History: Coronary Artery Disease (CAD), Diabetes Mellitus Additional Family Medical History / Comment(s): CABG Medications and Allergies Home Medications Medication Instructions Recorded Confirmed Type Aspirin [Harrison Aspirin EC] 81 mg PO DAILY 01/07/19 08/17/22 History Atorvastatin [Lipitor] 20 mg PO DAILY 01/07/19 08/17/22 History Finasteride [Proscar] 5 mg PO DAILY 01/07/19 08/17/22 History Sertraline HCl [Zoloft] 50 mg PO DAILY 02/05/19 08/17/22 History Tamsulosin [Flomax] 0.4 mg PO HS 07/06/19 08/17/22 History Ferrous Sulfate [Feosol] 325 mg PO DAILY 07/27/20 08/17/22 History Gabapentin [Neurontin] 100 mg PO BID 12/06/20 08/17/22 History Nitroglycerin Sl Tabs [Nitrostat] 0.4 mg SL Q5M PRN 02/19/21 08/17/22 History Ascorbic Acid [Vitamin C] 500 mg PO DAILY 09/14/21 08/17/22 History Cholecalciferol (Vitamin D3) 125 mcg PO DAILY 09/14/21 08/17/22 History [Vitamin D3 (125 MCG = 5,000 IU)] Insulin Glargine,Hum.rec.anlog 30 unit SQ HS 09/14/21 08/17/22 History [Lantus Solostar Pen] Albuterol Inhaler [Ventolin Hfa 2 puff INHALATION RT-Q6H PRN 04/29/22 08/17/22 History Inhaler] Rivaroxaban [Xarelto] 20 mg PO DAILY 04/29/22 08/17/22 History Calcium Carbonate [Tums] 1,000 mg PO QID PRN tab 05/10/22 08/17/22 Rx Ipratropium-Albuterol Nebulize 3 ml INHALATION RT-QID PRN 07/14/22 08/17/22 History [Duoneb 0.5 mg-3 mg/3 ml Soln] Metoprolol Tartrate [Lopressor] 12.5 mg PO BID 07/14/22 08/17/22 History Acetaminophen Tab [Tylenol] 650 mg PO Q6H PRN 08/17/22 08/17/22 History Furosemide [Lasix] 40 mg PO DAILY #30 tablet 08/19/22 Rx Losartan [Cozaar] 25 mg PO DAILY #30 tab 08/19/22 Rx cefUROXime axetiL [Ceftin] 500 mg PO BID 7 Days #14 tab 08/19/22 Rx Allergies Allergy/AdvReac Type Severity Reaction Status Date / Time No Known Allergies Allergy Verified 08/17/22 21:00 Physical Exam Vitals: Vital Signs Temp Pulse Resp BP Pulse Ox 08/20/22 09:28 98 F 81 19 127/57 96 08/20/22 04:00 97.9 F 70 18 134/65 95 08/19/22 23:20 98.0 F 66 18 125/61 94 L 08/19/22 20:00 97.7 F 70 16 159/67 94 L 08/19/22 16:40 96.4 F L 63 16 117/57 97 08/19/22 14:40 16 08/19/22 11:20 64 16 145/62 98 Intake and Output 08/19/22 08/20/22 08/20/22 22:59 06:59 14:59 Intake Total 118 Balance 118 Intake: Oral 118 Other: Voiding Method External Catheter External Catheter Weight 97.5 kg Results CBC & Chem 7: 08/18/22 03:00 08/20/22 08:33 Labs: Abnormal Lab Results - Last 24 Hours (Table) 08/19/22 08/19/22 08/19/22 Range/Units 11:40 16:41 19:51 Chloride (98-107) mmol/L Carbon Dioxide (22-30) mmol/L BUN (9-20) mg/dL Creatinine (0.66-1.25) mg/dL Glucose (74-99) mg/dL POC Glucose (mg/dL) 375 H 228 H 214 H (70-110) mg/dL 08/20/22 08/20/22 Range/Units 05:56 08:33 Chloride 89 L (98-107) mmol/L Carbon Dioxide 38 H (22-30) mmol/L BUN 35 H (9-20) mg/dL Creatinine 1.54 H (0.66-1.25) mg/dL Glucose 179 H (74-99) mg/dL POC Glucose (mg/dL) 187 H (70-110) mg/dL Microbiology - Last 24 Hours (Table) 08/17/22 23:29 Urine Culture - Final Urine,Voided Klebsiella pneumoniae Escherichia coli
[2022-08-21] MEDS: ACETAMINOPHEN TAB 325 MG TAB PO PRN ×2 (04:48→18:47)
[2022-08-21 04:54] LABS: Appearance,Urine Clear (Clear); Bacteria,Urine Rare /hpf; Bilirubin,Urine Negative (Negative); Blood,Urine Trace (Negative); Color,Urine Light Yellow; Glucose,Urine (UA) Negative (Negative); Hyaline Casts,Urine 4 /lpf (0-2); Ketones,Urine Negative (Negative); Leukocyte Esterase,Urine Large (Negative); Mucus,Urine Rare /hpf; Nitrite,Urine Negative (Negative); PH, Urine 5.5 (5.0-8.0); Protein,Urine 2+ (Negative); RBC,Urine 2 /hpf (0-5); Specific Gravity,Urine 1.013 (1.001-1.035); Squamous Epithelial Cell,Urine <1 /hpf (0-4); Urobilinogen,Urine <2.0 mg/dL (<2.0); WBC,Urine 59 /hpf (0-5)
[2022-08-21 06:40] LABS: Glucose,Whole Blood 156 mg/dL (70-110)
[2022-08-21] MEDS: INSULIN ASPART (NovoLOG) 100 UNIT/ML VIAL SQ SCH ×4 (06:43→22:35)
--- NOTE | 2022-08-21 08:02 | US ---
EXAMINATION TYPE: US kidneys/renal and bladder DATE OF EXAM: 08/21/2022 COMPARISON: CT, US CLINICAL HISTORY: uti and bacteremia. UTI and bacteremia. Hx right nephrectomy. EXAM MEASUREMENTS: Right Kidney: Surgically absent Left Kidney: 14.6 x 6.4 x 6.4 cm Right Kidney: Surgically absent Left Kidney: Appears enlarged. Anechoic area seen laterally: 3.3 x 3.6 x 3.1 cm. Bladder: Appears anechoic. Bilateral Jets seen: Not during exam, limited due to patient movement/coughing. IMPRESSION: 1. Simple cyst left kidney. Surgical absence of the right kidney.
[2022-08-21] MEDS: LOSARTAN 50 MG TAB PO SCH (08:51)
[2022-08-21] MEDS: ATORVASTATIN 20 MG TAB PO SCH (08:51)
[2022-08-21] MEDS: FINASTERIDE 5 MG TAB PO SCH (08:51)
[2022-08-21] MEDS: METOPROLOL TARTRATE 12.5 MG TAB PO SCH ×2 (08:51→22:35)
[2022-08-21] MEDS: ASPIRIN 81 MG PO SCH (08:51)
[2022-08-21] MEDS: RIVAROXABAN 20 MG TAB PO SCH (08:51)
[2022-08-21] MEDS: ERTAPENEM 1 GM in SODIUM CHLORIDE 0.9% 50 ML IVPB SCH (08:51)
[2022-08-21] MEDS: GABAPENTIN 100 MG CAP PO SCH ×2 (08:51→22:35)
[2022-08-21] MEDS: SERTRALINE 50 MG TAB PO SCH (08:51)
--- NOTE | 2022-08-21 09:23 | P.PN ---
Subjective Progress Note Date: 08/21/22 HISTORY OF PRESENT ILLNESS: The patient is a 77-year-old gentleman who sees Dr. Harper irregularly with a past medical history significant for coronary artery disease and status post CABG in 2018 where at that point he underwent CHAHAL to LAD and SVG to OM as well as SVG to RCA. Also he does have history of heart failure with preserved ejection fraction. Beside that the patient does have history of permanent pacemaker and also hypertension and dyslipidemia. Requested to see the patient as a consult today for further evaluation of abnormal cardiac enzymes and elevated troponin. The patient somewhat is a poor historian. He stated that for the last few days he has not been feeding well. He presented with increasing shortness of breath for the last 2-3 days associated with cough and some sputum production. No fever and no chills. On further questioning he also indicates that he has been experiencing chest discomfort mainly in the upper chest as well as in the lower neck. He reports no dizziness or lightheadedness and no feeling of heart racing or fluttering and no presyncope or syncope and no sweating. He presented to the emergency department for further evaluation. He underwent a workup including EKG showing sinus rhythm with ventricular paced rhythm. He also underwent a chest x-ray which showed chronic changes was a small bilateral pleural effusion. His NT proBNP came in to be elevated at 3000. The troponin also came in to be mildly elevated. Beside that when he presented to the hospital to pressure has been elevated and his systolic pressure was more than 180 mmHg. The patient stated that he has been compliant with his medications. On examination he definitely looks in heart failure was bilateral lower extremities edema and diminished breathing sounds bilaterally with bilateral rhonchi. His last echo from 2018 showed preserved left ventricular systolic function but the study was technically difficult and no obvious significant valvular abnormalities noted. The patient is receiving Xarelto at home for unknown reason. Reviewing the previous medical records did not indicate any history of atrial fibrillation 08/19/2022 Patient examined this morning at the bedside. Patient denies chest pain or pressure. Reports improvement in his SOB. He remains on IV lasix. He continues to have lower extremity edema. Creatinine stable today at 1.16. Echocardiogram performed in May 2022 revealed ejection fraction 45-50%. 08/20/2022 Patient examined this morning at the bedside. Patient denies chest pain or pressure. He denies shortness of breath. Patient's creatinine increased today to 1.54, up from 1.1 yesterday. Patient's vital signs are stable. 08/21/2022 Patient examined this morning at the bedside. Patient denies chest pain or pressure. He denies shortness of breath. Lasix and Aldactone were discontinued yesterday. Repeat kidney function is pending this morning. Vital signs are stable. PHYSICAL EXAM: VITAL SIGNS: Reviewed. GENERAL: Well-developed in no acute distress. NECK: Supple. No JVD or thyromegaly LUNGS: Respirations even and unlabored. Lungs essentially clear to auscultation bilaterally. HEART: Regular rate and rhythm. S1 and S2 heard. EXTREMITIES: Normal range of motion. No clubbing or cyanosis. Peripheral pulses intact. 1+ bilateral lower extremity edema ASSESSMENT: Hypertensive emergency Acute on chronic heart failure with mildly reduced ejection fraction Abnormal troponins, not suggestive of acute coronary syndrome Coronary artery disease with previous CABG History of permanent pacemaker insertion Hypertension Hyperlipidemia Acute kidney injury PLAN: Continue current cardiac medications Await kidney function testing this morning. If kidney function has improved, begin oral Lasix Further recommendations pending patient's course Nurse practitioner note has been reviewed by physician. Signing provider agrees with the documented findings, assessment, and plan of care. Objective - Vital Signs Vital signs: Vital Signs Temp 97.8 F 08/21/22 08:00 Pulse 66 08/21/22 08:00 Resp 18 08/21/22 08:00 BP 116/55 08/21/22 08:00 Pulse Ox 96 08/21/22 08:01 FiO2 Intake & Output 08/20/22 08/21/22 08/21/22 18:59 06:59 18:59 Intake Total 718 Output Total 251 500 Balance 467 -500 Intake: Oral 718 Output: Urine 250 500 Urine/Stool Mix 1 Other: Voiding Method External Catheter External Catheter External Catheter # Voids 1 - Labs CBC & Chem 7: 08/18/22 03:00 08/20/22 08:33 Labs: Abnormal Lab Results - Last 24 Hours (Table) 08/20/22 08/20/22 08/20/22 Range/Units 08:33 11:33 16:45 Chloride 89 L (98-107) mmol/L Carbon Dioxide 38 H (22-30) mmol/L BUN 35 H (9-20) mg/dL Creatinine 1.54 H (0.66-1.25) mg/dL Glucose 179 H (74-99) mg/dL POC Glucose (mg/dL) 175 H 287 H (70-110) mg/dL Urine Protein (Negative) Urine Blood (Negative) Ur Leukocyte Esterase (Negative) Urine WBC (0-5) /hpf Urine WBC Clumps (None) /hpf Urine Bacteria (None) /hpf Hyaline Casts (0-2) /lpf Urine Mucus (None) /hpf 08/20/22 08/21/22 08/21/22 Range/Units 20:09 04:29 06:39 Chloride (98-107) mmol/L Carbon Dioxide (22-30) mmol/L BUN (9-20) mg/dL Creatinine (0.66-1.25) mg/dL Glucose (74-99) mg/dL POC Glucose (mg/dL) 197 H 156 H (70-110) mg/dL Urine Protein 2+ H (Negative) Urine Blood Trace H (Negative) Ur Leukocyte Esterase Large H (Negative) Urine WBC 59 H (0-5) /hpf Urine WBC Clumps Occasional H (None) /hpf Urine Bacteria Rare H (None) /hpf Hyaline Casts 4 H (0-2) /lpf Urine Mucus Rare H (None) /hpf Microbiology - Last 24 Hours (Table) 08/17/22 23:29 Urine Culture - Final Urine,Voided Klebsiella pneumoniae Escherichia coli
[2022-08-21 09:24] LABS: Calcium 8.6 mg/dL (8.4-10.2); Potassium 4.3 mmol/L (3.5-5.1)
[2022-08-21] MEDS: FUROSEMIDE 40 MG TAB PO SCH (11:37)
[2022-08-21 11:45] LABS: Glucose,Whole Blood 303 mg/dL (70-110)
--- NOTE | 2022-08-21 14:38 | P.PN ---
Subjective Progress Note Date: 08/21/22 This is a 77-year-old gentleman admitted with acute on chronic CHF, diastolic dysfunction, CAD, and multiple other medical issues. Nitroglycerin drip recently discontinued. Positive edema, diuresing well on Lasix IV push, with 24-hour I&O reflecting a negative fluid balance. Renal function stable Interm ittent productive cough- white phlegm. Breathing improved, down to baseline of 3 L nasal cannula. Telemetry sinus rhythm. Denies chest pain, palpitations or shortness of breath. 08/20/2022 worsening renal function, Aldactone and Lasix discontinued. Antibiotics adjusted to ertapenem secondary to urine cultures reporting ESBL. Afebrile. Maintaining O2 sats in the mid to high 90s on 2 L nasal cannula. Denies chest pain, palpitations or increasing shortness of breath. 08/21/2022 continues on ertapenem for ESBL reported in urine cultures. Afebrile Complains of left wrist pain, uric acid level ordered. Denies nausea vomiting or diarrhea. Labs pending. Denies chest pain, palpitations or increased shortness of breath. Maintaining O2 sats of high 90s on 3 L nasal cannula. Objective - Vital Signs Vital signs: Vital Signs Temp 97.7 F 08/21/22 11:38 Pulse 68 08/21/22 11:38 Resp 18 08/21/22 11:38 BP 137/69 08/21/22 11:38 Pulse Ox 97 08/21/22 11:38 FiO2 Intake & Output 08/20/22 08/21/22 08/21/22 18:59 06:59 18:59 Intake Total 718 600 Output Total 251 500 Balance 467 -500 600 Intake: Oral 718 600 Output: Urine 250 500 Urine/Stool Mix 1 Other: Voiding Method External Catheter External Catheter External Catheter # Voids 1 - Exam GENERAL: Sitting up in chair, alert and oriented 3, no acute distress HEENT: Pupils are round and equally reacting to light. EOMI. No scleral icterus. No conjunctival pallor. Normocephalic, atraumatic. Neck:supple, no JVD CARDIOVASCULAR: S1 and S2 present regular, No murmurs, rubs, or gallops. PULMONARY: Chest is clear to auscultation, no wheezing or crackles. ABDOMEN: Soft, nontender, nondistended, normoactive bowel sounds. No palpable organomegaly. EXTREMITIES: Positive bilateral lower extremity edema ,No cyanosis, clubbing. NEUROLOGICAL: Cranial nerves II through XII grossly intact, no focal deficits. SKIN: No rashes, warm and dry. - Labs CBC & Chem 7: 08/18/22 03:00 08/21/22 08:28 Labs: Abnormal Lab Results - Last 24 Hours (Table) 08/20/22 08/20/22 08/21/22 Range/Units 16:45 20:09 04:29 Chloride (98-107) mmol/L Carbon Dioxide (22-30) mmol/L BUN (9-20) mg/dL Creatinine (0.66-1.25) mg/dL Glucose (74-99) mg/dL POC Glucose (mg/dL) 287 H 197 H (70-110) mg/dL Urine Protein 2+ H (Negative) Urine Blood Trace H (Negative) Ur Leukocyte Esterase Large H (Negative) Urine WBC 59 H (0-5) /hpf Urine WBC Clumps Occasional H (None) /hpf Urine Bacteria Rare H (None) /hpf Hyaline Casts 4 H (0-2) /lpf Urine Mucus Rare H (None) /hpf 08/21/22 08/21/22 08/21/22 Range/Units 06:39 08:28 11:39 Chloride 92 L (98-107) mmol/L Carbon Dioxide 37 H (22-30) mmol/L BUN 41 H (9-20) mg/dL Creatinine 1.36 H (0.66-1.25) mg/dL Glucose 188 H (74-99) mg/dL POC Glucose (mg/dL) 156 H 303 H (70-110) mg/dL Urine Protein (Negative) Urine Blood (Negative) Ur Leukocyte Esterase (Negative) Urine WBC (0-5) /hpf Urine WBC Clumps (None) /hpf Urine Bacteria (None) /hpf Hyaline Casts (0-2) /lpf Urine Mucus (None) /hpf Microbiology - Last 24 Hours (Table) 08/21/22 04:29 Urine Culture - Preliminary Urine,Voided 08/17/22 23:29 Urine Culture - Final Urine,Voided Klebsiella pneumoniae Escherichia coli Assessment and Plan Assessment: -Congestive heart failure chronic systolic dysfunction with acute exacerbation , EF 45-50% May 2022 -Hypertensive emergency -Mild elevation of troponins: Secondary to probably CHF exacerbation -Acute UTI with ESBL E. coli -History of permanent pacemaker implantation -Coronary artery disease with CABG and a failed revascularization in the past -hypertension -Type 2 diabetes mellitus -Hyperlipidemia -Benign prostatic hypertrophy -Recent fall, patient states over a week ago Plan: Continue on current medication regime ,monitoring and symptomatic treatment. Labs/renal function pending. Continue on ertapenem. Infectious disease consult in place, recommendations pending. The impression and plan of care has been dictated as directed. : I performed a history and examination of this patient, discussed the same with the dictator. I agree with the dictator's note ,documented as a scribe. Any additional findings or plans will be noted.
--- NOTE | 2022-08-21 15:36 | P.PN ---
Subjective Progress Note Date: 08/21/22 Principal diagnosis: ESBL Klebsiella urinary tract infection Patient is a 77-year old male presented to the hospital for evaluation of increasing shortness of breath patient also have some urinary symptoms did have a positive UA which has been finalized with ESBL Klebsiella and E. coli. On today's evaluation there is 08/21/2022, the patient denies having any fever or any chills, the patient is breathing more comfortably currently on 3 L nasal kilobit denies having any chest pain shortness of breath or cough no abdominal pain no diarrhea Objective - Vital Signs Vital signs: Vital Signs Temp 97.7 F 08/21/22 11:38 Pulse 68 08/21/22 11:38 Resp 18 08/21/22 11:38 BP 137/69 08/21/22 11:38 Pulse Ox 97 08/21/22 11:38 FiO2 Intake & Output 08/20/22 08/21/22 08/21/22 18:59 06:59 18:59 Intake Total 718 600 Output Total 251 500 Balance 467 -500 600 Intake: Oral 718 600 Output: Urine 250 500 Urine/Stool Mix 1 Other: Voiding Method External Catheter External Catheter External Catheter # Voids 1 - Exam GENERAL DESCRIPTION: Elderly male lying in bed, no distress. No tachypnea or acc essory muscle of respiration use. LUNGS: Unlabored breathing. Decrease intensity breath sounds HEART: S1, S2, regular rate and rhythm. No loud murmur ABDOMEN: Soft, no tenderness , guarding or rigidity, no organomegaly EXTREMITIES: No edema of feet. - Labs CBC & Chem 7: 08/18/22 03:00 08/21/22 08:28 Labs: Abnormal Lab Results - Last 24 Hours (Table) 08/20/22 08/20/22 08/21/22 Range/Units 16:45 20:09 04:29 Chloride (98-107) mmol/L Carbon Dioxide (22-30) mmol/L BUN (9-20) mg/dL Creatinine (0.66-1.25) mg/dL Glucose (74-99) mg/dL POC Glucose (mg/dL) 287 H 197 H (70-110) mg/dL Urine Protein 2+ H (Negative) Urine Blood Trace H (Negative) Ur Leukocyte Esterase Large H (Negative) Urine WBC 59 H (0-5) /hpf Urine WBC Clumps Occasional H (None) /hpf Urine Bacteria Rare H (None) /hpf Hyaline Casts 4 H (0-2) /lpf Urine Mucus Rare H (None) /hpf 08/21/22 08/21/22 08/21/22 Range/Units 06:39 08:28 11:39 Chloride 92 L (98-107) mmol/L Carbon Dioxide 37 H (22-30) mmol/L BUN 41 H (9-20) mg/dL Creatinine 1.36 H (0.66-1.25) mg/dL Glucose 188 H (74-99) mg/dL POC Glucose (mg/dL) 156 H 303 H (70-110) mg/dL Urine Protein (Negative) Urine Blood (Negative) Ur Leukocyte Esterase (Negative) Urine WBC (0-5) /hpf Urine WBC Clumps (None) /hpf Urine Bacteria (None) /hpf Hyaline Casts (0-2) /lpf Urine Mucus (None) /hpf Microbiology - Last 24 Hours (Table) 08/21/22 04:29 Urine Culture - Preliminary Urine,Voided 08/17/22 23:29 Urine Culture - Final Urine,Voided Klebsiella pneumoniae Escherichia coli Assessment and Plan (1) UTI (urinary tract infection) Current Visit: No Status: Acute Code(s): N39.0 - URINARY TRACT INFECTION, SITE NOT SPECIFIED SNOMED Code(s): 66593774 Plan: 1patient with ESBL Klebsiella urinary tract infection possible cystitis clinical not behaving as a deep infection patient with no fever or elevated white count repeat UA still positive ultrasound was negative for any hydron ephrosis or structural abnormality, patient to continue with the Invanz while waiting for repeat urine culture to be finalized Time with Patient: Less than 30
[2022-08-21 16:34] LABS: Glucose,Whole Blood 131 mg/dL (70-110)
[2022-08-21 20:15] LABS: Glucose,Whole Blood 256 mg/dL (70-110)
[2022-08-21] MEDS: INSULIN DETEMIR (LEVEMIR) 100 UNIT/ML SYR SQ SCH (22:35)
[2022-08-21] MEDS: TAMSULOSIN 0.4 MG CAP.ER.24H PO SCH (22:35)
[2022-08-22] MEDS: ACETAMINOPHEN TAB 325 MG TAB PO PRN (01:33)
[2022-08-22 06:07] LABS: Glucose,Whole Blood 72 mg/dL (70-110)
[2022-08-22] MEDS: INSULIN ASPART (NovoLOG) 100 UNIT/ML VIAL SQ SCH ×4 (06:09→21:31)
[2022-08-22 09:26] LABS: Calcium 8.1 mg/dL (8.4-10.2); Potassium 4.2 mmol/L (3.5-5.1)
[2022-08-22] MEDS: METOPROLOL TARTRATE 12.5 MG TAB PO SCH ×2 (09:54→21:11)
[2022-08-22] MEDS: ATORVASTATIN 20 MG TAB PO SCH (09:54)
[2022-08-22] MEDS: ASPIRIN 81 MG PO SCH (09:54)
[2022-08-22] MEDS: SERTRALINE 50 MG TAB PO SCH (09:54)
[2022-08-22] MEDS: FUROSEMIDE 40 MG TAB PO SCH (09:54)
[2022-08-22] MEDS: FINASTERIDE 5 MG TAB PO SCH (09:54)
[2022-08-22] MEDS: ERTAPENEM 1 GM in SODIUM CHLORIDE 0.9% 50 ML IVPB SCH (09:54)
[2022-08-22] MEDS: RIVAROXABAN 20 MG TAB PO SCH (09:54)
[2022-08-22] MEDS: GABAPENTIN 100 MG CAP PO SCH ×2 (09:54→21:11)
[2022-08-22] MEDS: LOSARTAN 50 MG TAB PO SCH (09:54)
--- NOTE | 2022-08-22 10:34 | P.PN ---
Subjective Progress Note Date: 08/22/22 HISTORY OF PRESENT ILLNESS: The patient is a 77-year-old gentleman who sees Dr. Harper irregularly with a past medical history significant for coronary artery disease and status post CABG in 2018 where at that point he underwent CHAHAL to LAD and SVG to OM as well as SVG to RCA. Also he does have history of heart failure with preserved ejection fraction. Beside that the patient does have history of permanent pacemaker and also hypertension and dyslipidemia. Requested to see the patient as a consult today for further evaluation of abnormal cardiac enzymes and elevated troponin. The patient somewhat is a poor historian. He stated that for the last few days he has not been feeding well. He presented with increasing shortness of breath for the last 2-3 days associated with cough and some sputum production. No fever and no chills. On further questioning he also indicates that he has been experiencing chest discomfort mainly in the upper chest as well as in the lower neck. He reports no dizziness or lightheadedness and no feeling of heart racing or fluttering and no presyncope or syncope and no sweating. He presented to the emergency department for further evaluation. He underwent a workup including EKG showing sinus rhythm with ventricular paced rhythm. He also underwent a chest x-ray which showed chronic changes was a small bilateral pleural effusion. His NT proBNP came in to be elevated at 3000. The troponin also came in to be mildly elevated. Beside that when he presented to the hospital to pressure has been elevated and his systolic pressure was more than 180 mmHg. The patient stated that he has been compliant with his medications. On examination he definitely looks in heart failure was bilateral lower extremities edema and diminished breathing sounds bilaterally with bilateral rhonchi. His last echo from 2018 showed preserved left ventricular systolic function but the study was technically difficult and no obvious significant valvular abnormalities noted. The patient is receiving Xarelto at home for unknown reason. Reviewing the previous medical records did not indicate any history of atrial fibrillation 08/19/2022 Patient examined this morning at the bedside. Patient denies chest pain or pressure. Reports improvement in his SOB. He remains on IV lasix. He continues to have lower extremity edema. Creatinine stable today at 1.16. Echocardiogram performed in May 2022 revealed ejection fraction 45-50%. 08/20/2022 Patient examined this morning at the bedside. Patient denies chest pain or pressure. He denies shortness of breath. Patient's creatinine increased today to 1.54, up from 1.1 yesterday. Patient's vital signs are stable. 08/21/2022 Patient examined this morning at the bedside. Patient denies chest pain or pressure. He denies shortness of breath. Lasix and Aldactone were discontinued yesterday. Repeat kidney function is pending this morning. Vital signs are stable. 08/22/2022 Patient examined this morning at the bedside. Patient denies chest pain or pressure. He denies shortness of breath. His lasix was resumed yesterday. Vital signs are stable. PHYSICAL EXAM: VITAL SIGNS: Reviewed. GENERAL: Well-developed in no acute distress. NECK: Supple. No JVD or thyromegaly LUNGS: Respirations even and unlabored. Lungs essentially clear to auscultation bilaterally. HEART: Regular rate and rhythm. S1 and S2 heard. EXTREMITIES: Normal range of motion. No clubbing or cyanosis. Peripheral pulses intact. No lower extremity edema ASSESSMENT: Hypertensive emergency Acute on chronic heart failure with mildly reduced ejection fraction Abnormal troponins, not suggestive of acute coronary syndrome Coronary artery disease with previous CABG History of permanent pacemaker insertion Hypertension Hyperlipidemia Acute kidney injury PLAN: Continue current cardiac medications Patient is stable for discharge from a cardiac standpoint Further recommendations pending patient's course Nurse practitioner note has been reviewed by physician. Signing provider agrees with the documented findings, assessment, and plan of care. Objective - Vital Signs Vital signs: Vital Signs Temp 97.8 F 08/22/22 08:47 Pulse 60 08/22/22 08:47 Resp 24 08/22/22 08:47 BP 129/69 08/22/22 08:47 Pulse Ox 100 08/22/22 08:47 FiO2 Intake & Output 08/21/22 08/22/22 08/22/22 18:59 06:59 18:59 Intake Total 690 10 Output Total 300 500 Balance 390 -490 Intake: IV 10 10 Invasive Line 3 10 10 Oral 680 Output: Urine 300 500 Other: Voiding Method External Catheter External Catheter - Labs CBC & Chem 7: 08/18/22 03:00 08/22/22 08:00 Labs: Abnormal Lab Results - Last 24 Hours (Table) 08/21/22 08/21/22 08/21/22 Range/Units 11:39 16:33 20:14 Chloride (98-107) mmol/L Carbon Dioxide (22-30) mmol/L BUN (9-20) mg/dL POC Glucose (mg/dL) 303 H 131 H 256 H (70-110) mg/dL Calcium (8.4-10.2) mg/dL 08/22/22 Range/Units 08:00 Chloride 96 L (98-107) mmol/L Carbon Dioxide 34 H (22-30) mmol/L BUN 37 H (9-20) mg/dL POC Glucose (mg/dL) (70-110) mg/dL Calcium 8.1 L (8.4-10.2) mg/dL Microbiology - Last 24 Hours (Table) 08/21/22 04:29 Urine Culture - Preliminary Urine,Voided
[2022-08-22] MEDS: MORPHINE SULFATE 4 MG/ML SYRINGE IVP PRN (11:38)
[2022-08-22 11:49] LABS: Glucose,Whole Blood 117 mg/dL (70-110)
[2022-08-22 11:53] VITALS: BMI 35.7
--- NOTE | 2022-08-22 12:56 | P.PN ---
Subjective Progress Note Date: 08/22/22 This is a 77-year-old gentleman admitted with acute on chronic CHF, diastolic dysfunction, CAD, and multiple other medical issues. Nitroglycerin drip recently discontinued. Positive edema, diuresing well on Lasix IV push, with 24-hour I&O reflecting a negative fluid balance. Renal function stable Interm ittent productive cough- white phlegm. Breathing improved, down to baseline of 3 L nasal cannula. Telemetry sinus rhythm. Denies chest pain, palpitations or shortness of breath. 08/20/2022 worsening renal function, Aldactone and Lasix discontinued. Antibiotics adjusted to ertapenem secondary to urine cultures reporting ESBL. Afebrile. Maintaining O2 sats in the mid to high 90s on 2 L nasal cannula. Denies chest pain, palpitations or increasing shortness of breath. 08/21/2022 continues on ertapenem for ESBL reported in urine cultures. Afebrile Complains of left wrist pain, uric acid level ordered. Denies nausea vomiting or diarrhea. Labs pending. Denies chest pain, palpitations or increased shortness of breath. Maintaining O2 sats of high 90s on 3 L nasal cannula. 08/22/22 maintained on ertapenem, repeat urine culture finalizing. Afebrile. Complains of left wrist, left elbow, left shoulder, left neck pain-limited range of motion, tender to touch. Uric acid elevated, 8.5. RN reports patient choking on a.m. medications/breakfast, threw up breakfast. Maintaining O2 sats in the high 90s to 100% on 2-3 L nasal cannula. Denies chest pain, palpitations. Renal function improving, creatinine down to 1.14. Objective - Vital Signs Vital signs: Vital Signs Temp 97.9 F 08/22/22 12:22 Pulse 62 08/22/22 12:22 Resp 22 08/22/22 12:22 BP 133/79 08/22/22 12:22 Pulse Ox 95 08/22/22 12:22 FiO2 Intake & Output 08/21/22 08/22/22 08/22/22 18:59 06:59 18:59 Intake Total 690 10 Output Total 300 500 Balance 390 -490 Weight 97.5 kg Intake: IV 10 10 Invasive Line 3 10 10 Oral 680 Output: Urine 300 500 Other: Voiding Method External Catheter External Catheter External Catheter - Exam GENERAL: Sitting up in bed, alert and oriented 3, no acute distress HEENT: Pupils are round and equally reacting to light. EOMI. No scleral icterus. No conjunctival pallor. Normocephalic, atraumatic. Neck:supple, no JVD CARDIOVASCULAR: S1 and S2 present regular, No murmurs, rubs, or gallops. PULMONARY: Chest is clear to auscultation, no wheezing or crackles. ABDOMEN: Soft, nontender, nondistended, normoactive bowel sounds. No palpable organomegaly. EXTREMITIES: Left wrist, left elbow, left shoulder tender to touch, limited extension.Positive bilateral lower extremity edema ,No cyanosis, clubbing. NEUROLOGICAL: Cranial nerves II through XII grossly intact, no focal deficits. SKIN: No rashes, warm and dry. - Labs CBC & Chem 7: 08/18/22 03:00 08/22/22 08:00 Labs: Abnormal Lab Results - Last 24 Hours (Table) 08/21/22 08/21/22 08/22/22 Range/Units 16:33 20:14 08:00 Chloride 96 L (98-107) mmol/L Carbon Dioxide 34 H (22-30) mmol/L BUN 37 H (9-20) mg/dL POC Glucose (mg/dL) 131 H 256 H (70-110) mg/dL Calcium 8.1 L (8.4-10.2) mg/dL 08/22/22 Range/Units 11:47 Chloride (98-107) mmol/L Carbon Dioxide (22-30) mmol/L BUN (9-20) mg/dL POC Glucose (mg/dL) 117 H (70-110) mg/dL Calcium (8.4-10.2) mg/dL Microbiology - Last 24 Hours (Table) 08/21/22 04:29 Urine Culture - Preliminary Urine,Voided Assessment and Plan Assessment: -Congestive heart failure chronic systolic dysfunction with acute exacerbation , EF 45-50% May 2022 -Hypertensive emergency -Mild elevation of troponins: Secondary to probably CHF exacerbation -Acute UTI with ESBL E. coli -Elevated uric acid, tender left upper extremity joints, possible gout -Possible aspiration, further workup in progress -History of permanent pacemaker implantation -Coronary artery disease with CABG and a failed revascularization in the past -hypertension -Type 2 diabetes mellitus -Hyperlipidemia -Benign prostatic hypertrophy -Recent fall, patient states over a week ago Plan: Continue on current medication regime ,monitoring and symptomatic treatment. Strict aspiration precautions, speech therapy consulted for further swallow evaluation. Orthopedics consulted regarding possible left upper extremity gout. Pain management -morphine added to pain regimen . Continue on ertapenem, repeat urine cultures finalizing. Diuretics as per cardiology. The impression and plan of care has been dictated as directed. : I performed a history and examination of this patient, discussed the same with the dictator. I agree with the dictator's note ,documented as a scribe. Any additional findings or plans will be noted.
--- NOTE | 2022-08-22 15:37 | P.CNOR ---
History of Present Illness - [facility] Consult date: 08/22/22 Consult reason: joint pain (Left wrist pain ) History of present illness: The patient is a 77-year-old male who was admitted with acute on chronic congestive heart failure, CAD, and other multiple medical issues. Orthopedics was consulted for further evaluation of his left upper extremity due to ongoing pain. He states the pain started when he was admitted to the hospital 5 days ago. The pain started in his left wrist and has now radiated to his left elbow and shoulder. He denies any numbness or tingling in the left hand. He denies any neck pain. The patient is unable to use his left arm due to extreme pain. Internal medicine ordered a uric acid level which is 8.5 and is suspecting gout. He denies a history of gout in the past. The patient does admit to a fall 2-3 weeks ago but did not have the left arm pain after the fall. Review of Systems Constitutional: Denies chills, Denies fatigue, Denies fever Cardiovascular: Denies chest pain, Denies shortness of breath Respiratory: Denies cough Gastrointestinal: Denies diarrhea, Denies nausea, Denies vomiting Musculoskeletal: left: elbow pain, elbow stiffness, shoulder pain, shoulder stiffness, wrist pain, wrist stiffness, wrist swelling Past Medical History Past Medical History: Coronary Artery Disease (CAD), Cancer, COPD, Diabetes Mellitus, Hyperlipidemia, Hypertension, Myocardial Infarction (TN), Prostate Disorder Additional Past Medical History / Comment(s): prostate cancer with radiation > 20 years ago, nstemi, wears a brief incont urine/stool Last Myocardial Infarction Date:: 2017 History of Any Multi-Drug Resistant Organisms: ESBL, MRSA Year Discovered:: 08/17/22 ESBL; 10/27/18 MRSA MDRO Source:: Urine-ESBL; Back-MRSA Past Surgical History: Coronary Bypass/CABG Additional Past Surgical History / Comment(s): 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,prostate bx, triple bypass 2017, bronchoscopy, picc line pt stated since removed Past Anesthesia/Blood Transfusion Reactions: No Reported Reaction Type of Cardiac Device: Permanent Pacemaker Device Placement Date:: 12/08/20 Past Psychological History: No Psychological Hx Reported Additional Psychological History / Comment(s): Pt resides with his son, Cristo. He uses a wheeled walker. He has a nebulizer. He no longer drives, his son drives. Smoking Status: Former smoker Past Alcohol Use History: None Reported Additional Past Alcohol Use History / Comment(s): Pt started smoking as a teen and was a 3 ppd smoker but quit in 1990. Past Drug Use History: None Reported Additional Drug Use History / Comment(s): Used to use alcohol regularely. States he goes to [employer] meetings. - Past Family History Father Additional Family Medical History / Comment(s): old age Mother Family Medical History: Coronary Artery Disease (CAD), Diabetes Mellitus Additional Family Medical History / Comment(s): CABG Medications and Allergies Home Medications Medication Instructions Recorded Confirmed Type Aspirin [Fossil Aspirin EC] 81 mg PO DAILY 01/07/19 08/17/22 History Atorvastatin [Lipitor] 20 mg PO DAILY 01/07/19 08/17/22 History Finasteride [Proscar] 5 mg PO DAILY 01/07/19 08/17/22 History Sertraline HCl [Zoloft] 50 mg PO DAILY 02/05/19 08/17/22 History Tamsulosin [Flomax] 0.4 mg PO HS 07/06/19 08/17/22 History Ferrous Sulfate [Feosol] 325 mg PO DAILY 07/27/20 08/17/22 History Gabapentin [Neurontin] 100 mg PO BID 12/06/20 08/17/22 History Nitroglycerin Sl Tabs [Nitrostat] 0.4 mg SL Q5M PRN 02/19/21 08/17/22 History Ascorbic Acid [Vitamin C] 500 mg PO DAILY 09/14/21 08/17/22 History Cholecalciferol (Vitamin D3) 125 mcg PO DAILY 09/14/21 08/17/22 History [Vitamin D3 (125 MCG = 5,000 IU)] Insulin Glargine,Hum.rec.anlog 30 unit SQ HS 09/14/21 08/17/22 History [Lantus Solostar Pen] Albuterol Inhaler [Ventolin Hfa 2 puff INHALATION RT-Q6H PRN 04/29/22 08/17/22 History Inhaler] Rivaroxaban [Xarelto] 20 mg PO DAILY 04/29/22 08/17/22 History Calcium Carbonate [Tums] 1,000 mg PO QID PRN tab 05/10/22 08/17/22 Rx Ipratropium-Albuterol Nebulize 3 ml INHALATION RT-QID PRN 07/14/22 08/17/22 History [Duoneb 0.5 mg-3 mg/3 ml Soln] Metoprolol Tartrate [Lopressor] 12.5 mg PO BID 07/14/22 08/17/22 History Acetaminophen Tab [Tylenol] 650 mg PO Q6H PRN 08/17/22 08/17/22 History Furosemide [Lasix] 40 mg PO DAILY #30 tablet 08/19/22 Rx cefUROXime axetiL [Ceftin] 500 mg PO BID 7 Days #14 tab 08/19/22 Rx Losartan [Cozaar] 50 mg PO DAILY #90 tab 08/22/22 Rx Allergies Allergy/AdvReac Type Severity Reaction Status Date / Time No Known Allergies Allergy Verified 08/17/22 21:00 Physical Examination The patient is a 77-year-old male who is in no acute distress. He is alert and oriented 3. Exam of the left upper extremity reveals severe pain to light touch of the left wrist and moderate pain to the left elbow and shoulder. The patient is able to abduct his shoulder to about 90 without significant pain. He is unable to move his left hand or wrist without severe pain. No pain upon palpation to the cervical spine and no signs of cervical radiculopathy noted. Neurological and circulatory status intact to the left upper extremity. Results - Labs Labs: Abnormal Lab Results - Last 24 Hours (Table) 08/21/22 08/21/22 08/22/22 Range/Units 16:33 20:14 08:00 Chloride 96 L (98-107) mmol/L Carbon Dioxide 34 H (22-30) mmol/L BUN 37 H (9-20) mg/dL POC Glucose (mg/dL) 131 H 256 H (70-110) mg/dL Calcium 8.1 L (8.4-10.2) mg/dL 08/22/22 Range/Units 11:47 Chloride (98-107) mmol/L Carbon Dioxide (22-30) mmol/L BUN (9-20) mg/dL POC Glucose (mg/dL) 117 H (70-110) mg/dL Calcium (8.4-10.2) mg/dL Microbiology - Last 24 Hours (Table) 08/21/22 04:29 Urine Culture - Final Urine,Voided H & H 08/17/22 08/18/22 Range/Units 21:07 03:00 Hgb 9.7 L 10.1 L (13.0-17.5) gm/dL Hct 32.1 L 33.7 L (39.0-53.0) % Coagulation 08/17/22 Range/Units 21:07 INR 0.9 (<1.2) Result Diagrams: 08/18/22 03:00 08/22/22 08:00 Assessment and Plan (1) CHF (congestive heart failure) Current Visit: Yes Status: Acute Code(s): I50.9 - HEART FAILURE, UNSPECIFIED SNOMED Code(s): 38806967 (2) Gout Current Visit: Yes Status: Acute Code(s): M10.9 - GOUT, UNSPECIFIED SNOMED Code(s): 98277842 (3) Left wrist pain Current Visit: Yes Status: Acute Code(s): M25.532 - PAIN IN LEFT WRIST SNOMED Code(s): 34844126 Plan: The clinical findings were discussed with the patient. The case was discussed Dr. Thompson. We will obtain x-rays of the left wrist to start with. This most likely is a gout exacerbation and the patient will need either steroids or gout medication. We will defer to internal medicine to prescribe gout medication due to the patient's multiple medical issues. We believe that the patient will respond to treatment fairly quickly and his pain will be controlled. Continue pain control as needed. We will continue to follow patient closely and make further recommendations as needed.
--- NOTE | 2022-08-22 16:09 | XR ---
EXAMINATION TYPE: XR wrist complete LT DATE OF EXAM: 08/22/2022 COMPARISON: NONE HISTORY: 77-year-old male with left wrist pain TECHNIQUE: 4 views FINDINGS: Severe degenerative change first CMC joint with joint space narrowing, joint subluxation, p rominent marginal spurring, and small loose bodies. Vascular calcifications may reflect underlying di abetes and/or chronic kidney disease. There seems to be generalized soft tissue swelling distal forea rm and wrist. TFC calcifications may be idiopathic or could be seen with CPPD. There may be some unde rlying degenerative change at the radial lunate joint with joint space narrowing and subtle subchondr al cystic change. There is marked osteopenia. Small dorsal loose body measuring 3 mm. No fracture, ruffin bluxation, or dislocation seen. 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 Generalized soft tissue swelling at the wrist. There may b e some underlying degenerative joint space narrowing at the radiolunate joint. Osteopenia without acu te osseous abnormality seen.
[2022-08-22 16:53] LABS: Glucose,Whole Blood 115 mg/dL (70-110)
[2022-08-22 21:01] VITALS: PULSE 69
[2022-08-22] MEDS: TAMSULOSIN 0.4 MG CAP.ER.24H PO SCH (21:11)
[2022-08-22 21:20] LABS: Glucose,Whole Blood 126 mg/dL (70-110)
[2022-08-22] MEDS: INSULIN DETEMIR (LEVEMIR) 100 UNIT/ML SYR SQ SCH (21:46)
--- NOTE | 2022-08-22 22:50 | P.PN ---
Subjective Progress Note Date: 08/22/22 Principal diagnosis: ESBL Klebsiella urinary tract infection Patient is a 77-year old male presented to the hospital for evaluation of increasing shortness of breath patient also have some urinary symptoms did have a positive UA which has been finalized with ESBL Klebsiella and E. coli. On today's evaluation there is 08/22/2022, the patient remains to be afebrile, the patient is breathing more comfortably currently on 3 L nasal cannula, the patient denies having any chest pain shortness of breath or cough no abdominal pain no diarrhea Objective - Vital Signs Vital signs: Vital Signs Temp 97.8 F 08/22/22 08:47 Pulse 60 08/22/22 08:47 Resp 24 08/22/22 08:47 BP 129/69 08/22/22 08:47 Pulse Ox 100 08/22/22 08:47 FiO2 Intake & Output 08/21/22 08/22/22 08/22/22 18:59 06:59 18:59 Intake Total 690 10 Output Total 300 500 Balance 390 -490 Intake: IV 10 10 Invasive Line 3 10 10 Oral 680 Output: Urine 300 500 Other: Voiding Method External Catheter External Catheter - Exam GENERAL DESCRIPTION: Elderly male lying in bed, no distress. No tachypnea or accessory muscle of respiration use. LUNGS: Unlabored breathing. Decrease intensity breath sounds HEART: S1, S2, regular rate and rhythm. No loud murmur ABDOMEN: Soft, no tenderness , guarding or rigidity, no organomegaly EXTREMITIES: No edema of feet. - Labs CBC & Chem 7: 08/18/22 03:00 08/22/22 08:00 Labs: Abnormal Lab Results - Last 24 Hours (Table) 08/21/22 08/21/22 08/21/22 Range/Units 11:39 16:33 20:14 Chloride (98-107) mmol/L Carbon Dioxide (22-30) mmol/L BUN (9-20) mg/dL POC Glucose (mg/dL) 303 H 131 H 256 H (70-110) mg/dL Calcium (8.4-10.2) mg/dL 08/22/22 Range/Units 08:00 Chloride 96 L (98-107) mmol/L Carbon Dioxide 34 H (22-30) mmol/L BUN 37 H (9-20) mg/dL POC Glucose (mg/dL) (70-110) mg/dL Calcium 8.1 L (8.4-10.2) mg/dL Microbiology - Last 24 Hours (Table) 08/21/22 04:29 Urine Culture - Preliminary Urine,Voided Assessment and Plan (1) UTI (urinary tract infection) Current Visit: No Status: Acute Code(s): N39.0 - URINARY TRACT INFECTION, SITE NOT SPECIFIED SNOMED Code(s): 43306823 Plan: 1patient with ESBL Klebsiella urinary tract infection possible cystitis clinical not behaving as a deep infection patient with no fever or elevated white count repeat UA still positive ultrasound was negative for any hydronephrosis or structural abnormality, patient seemed to have has some clinical improvement and will continue with the Invanz while waiting for repeat urine culture to be finalized to determine his discharge antibiotics Time with Patient: Less than 30
[2022-08-23] MEDS: MORPHINE SULFATE 4 MG/ML SYRINGE IVP PRN (05:25)
[2022-08-23 07:59] LABS: Glucose,Whole Blood 86 mg/dL (70-110)
[2022-08-23] MEDS: INSULIN ASPART (NovoLOG) 100 UNIT/ML VIAL SQ SCH (08:41)
[2022-08-23 09:08] VITALS: BP 149/70; RESP 14; TEMP 98.2
--- NOTE | 2022-08-23 09:10 | P.PN ---
Subjective Progress Note Date: 08/23/22 Principal diagnosis: Left wrist/arm pain The patient is a 77-year-old male who was admitted with acute on chronic congestive heart failure, CAD, and other multiple medical issues. Orthopedics was consulted for further evaluation of his left upper extremity due to ongoing pain. He states the pain started when he was admitted to the hospital 5 days ago. The pain started in his left wrist and has now radiated to his left elbow and shoulder. He denies any numbness or tingling in the left hand. He denies any neck pain. The patient is unable to use his left arm due to extreme pain. Internal medicine ordered a uric acid level which is 8.5 and is suspecting gout. He denies a history of gout in the past. The patient does admit to a fall 2-3 weeks ago but did not have the left arm pain after the fall. Today, the patient is still quite painful in the left wrist and arm. X-rays were negative for fracture or significant arthritis. Objective - Vital Signs Vital signs: Vital Signs Temp 98.2 F 08/23/22 07:58 Pulse 69 08/23/22 07:58 Resp 14 08/23/22 07:58 BP 149/70 08/23/22 07:58 Pulse Ox 96 08/23/22 07:58 FiO2 Intake & Output 08/22/22 08/23/22 08/23/22 18:59 06:59 18:59 Output Total 400 Balance -400 Weight 97.5 kg Output: Urine 400 Other: Voiding Method External Catheter External Catheter - Exam The patient is a 77-year-old male who is in no acute distress. He is alert and oriented 3. Exam of the left upper extremity reveals severe pain to light touch of the left wrist and moderate pain to the left elbow and shoulder. The patient is able to abduct his shoulder to about 90 without significant pain. He is unable to move his left hand or wrist without severe pain. No pain upon palpation to the cervical spine and no signs of cervical radiculopathy noted. Neurological and circulatory status intact to the left upper extremity. - Labs CBC & Chem 7: 08/18/22 03:00 08/22/22 08:00 Labs: Abnormal Lab Results - Last 24 Hours (Table) 08/22/22 08/22/22 08/22/22 Range/Units 08:00 11:47 16:51 Chloride 96 L (98-107) mmol/L Carbon Dioxide 34 H (22-30) mmol/L BUN 37 H (9-20) mg/dL POC Glucose (mg/dL) 117 H 115 H (70-110) mg/dL Calcium 8.1 L (8.4-10.2) mg/dL 08/22/22 Range/Units 21:18 Chloride (98-107) mmol/L Carbon Dioxide (22-30) mmol/L BUN (9-20) mg/dL POC Glucose (mg/dL) 126 H (70-110) mg/dL Calcium (8.4-10.2) mg/dL Microbiology - Last 24 Hours (Table) 08/21/22 04:29 Urine Culture - Final Urine,Voided Assessment and Plan (1) CHF (congestive heart failure) Current Visit: Yes Status: Acute Code(s): I50.9 - HEART FAILURE, UNSPECIFIED SNOMED Code(s): 03707641 (2) Gout Current Visit: Yes Status: Acute Code(s): M10.9 - GOUT, UNSPECIFIED SNOMED Code(s): 84896749 (3) Left wrist pain Current Visit: Yes Status: Acute Code(s): M25.532 - PAIN IN LEFT WRIST SNOMED Code(s): 30390769 Plan: The clinical and x-ray findings were discussed with the patient. The case was discussed Dr. Thompson. X-rays were negative for fracture. Clinically doubt septic arthritis. This most likely is a gout exacerbation and the patient will need either steroids or gout medication. We will defer to internal medicine to prescribe gout medication due to the patient's multiple medical issues. I spoke with internal medicine regarding this. We will sign off at this time and would happy to reevaluate the patient if anything changes in regards to his left arm.
[2022-08-23] MEDS ORDERED: methylPREDNISolone SOD SUCCI 125 MG/2 ML VIAL IV STA (09:35)
[2022-08-23] MEDS: ASPIRIN 81 MG PO SCH (10:39)
[2022-08-23] MEDS: LOSARTAN 50 MG TAB PO SCH (10:40)
[2022-08-23] MEDS: SERTRALINE 50 MG TAB PO SCH (10:40)
[2022-08-23] MEDS: METOPROLOL TARTRATE 12.5 MG TAB PO SCH (10:40)
[2022-08-23] MEDS: GABAPENTIN 100 MG CAP PO SCH (10:40)
[2022-08-23] MEDS: FUROSEMIDE 40 MG TAB PO SCH (10:41)
[2022-08-23] MEDS: FINASTERIDE 5 MG TAB PO SCH (10:41)
[2022-08-23] MEDS: ATORVASTATIN 20 MG TAB PO SCH (10:41)
[2022-08-23 10:53] LABS: Basophils # (A) 0.02 X 10*3/uL (0.00-0.10); Basophils % (A) 0.3 %; Eosinophils # (A) 0.04 X 10*3/uL (0.04-0.35); Eosinophils % (A) 0.6 %; HCT 29.9 % (39.6-50.0); Immature Grans, Automated 0.3 %; Lymphocytes % (A) 8.4 %; MCH 28.6 pg (27.0-32.0); MCHC 30.1 g/dL (32.0-37.0); MCV 94.9 fL (80.0-97.0); Mean Platelet Volume 11.1 fL (9.5-12.2); Monocytes # (A) 0.45 X 10*3/uL (0.20-1.00); Monocytes % (A) 6.3 %; NRBC Per 100 WBC 0 /100 WBCS (0.0-0.0); Neutrophils # (A) 6.01 X 10*3/uL (1.80-7.70); Neutrophils % (A) 84.1 %; Platelet Count 165 X 10*3/uL (140-440); RBC 3.15 X 10*6/uL (4.40-5.60); RDW 15.1 % (11.5-14.5); WBC 7.14 X 10*3/uL (4.50-10.00)
[2022-08-23 11:19] LABS: Albumin 3.5 g/dL (3.8-4.9); Albumin/Globulin Ratio 1.56 (1.60-3.17); Anion Gap 8.1 mmol/L (10.00-18.00); BUN/Creat Ratio 27.08 Ratio (12.00-20.00); Blood Urea Nitrogen 35.2 mg/dL (9.0-27.0); Calcium 8.8 mg/dL (8.7-10.3); Carbon Dioxide 35.5 mmol/L (20.0-27.5); Globulin 2.2 g/dL (1.6-3.3); Non-African American GFR(CKD) 52.6 (60.0-200.0); Potassium 4.7 mmol/L (3.5-5.5); Total Bilirubin 0.3 mg/dL (0.30-1.20); Total Protein 5.7 g/dL (6.2-8.2)
[2022-08-23 11:22] LABS: Glucose,Whole Blood 86 mg/dL (70-110)
[2022-08-23] MEDS: RIVAROXABAN 20 MG TAB PO SCH (11:45)
--- NOTE | 2022-08-23 12:53 | FL ---
EXAMINATION TYPE: FL esophagus cervic/pharynx DATE OF EXAM: 08/23/2022 HISTORY: Rule out reflux. COMPARISON: No direct comparisons. TECHNIQUE: A single contrast esophagram is performed utilizing barium. A total of 1.09 minutes of fl uoroscopic time was utilized during procedure and 14 images obtained. FINDINGS: Significantly limited examination due to patient condition and inability to tolerate procedure. Contrast easily passed from the oropharynx into the esophagus and through the esophagus into the stom ach. There was trace esophageal dilatation with tertiary contractions. Decrease frequency of peristal sis. No stricture noted. No hiatal hernia demonstrated. Gastroesophageal was elicited. IMPRESSION: 1. Significantly limited examination with findings consistent with presbyesophagus. 2. Gastroesophageal reflux.
--- NOTE | 2022-08-23 13:55 | P.DS ---
Providers Date of admission: 08/20/22 09:10 Expected date of discharge: 08/23/22 Attending physician: Nhan Adam MD Consults: 08/20/22 10:52 Consult Physician Routine Consulting Provider: Eddie Roche Consult Reason/Comments: uti,ESBL Do you want consulting provider notified?: Yes 08/22/22 11:01 Consult Physician Routine Consulting Provider: Moncho Rosado Consult Reason/Comments: LUE gout Do you want consulting provider notified?: Yes Primary care physician: Della Addison [facility] Hospital Course: Final Diagnoses: -Congestive heart failure chronic systolic dysfunction with acute exacerbation , EF 45-50% May 2022 -Hypertensive emergency -Mild elevation of troponins: Secondary to probably CHF exacerbation -Acute UTI with ESBL E. coli -Elevated uric acid, tender left upper extremity joints, possible gout -Possible aspiration, further workup in progress -History of permanent pacemaker implantation -Coronary artery disease with CABG and a failed revascularization in the past -hypertension -Type 2 diabetes mellitus -Hyperlipidemia -Benign prostatic hypertrophy -Recent fall, patient states over a week ago Hospital course:This is a 77-year-old gentleman admitted with acute on chronic CHF, diastolic dysfunction, CAD, and multiple other medical issues. Nitroglycerin drip recently discontinued. Positive edema, diuresing well on Lasix IV push, with 24-hour I&O reflecting a negative fluid balance. Renal function stable Intermittent productive cough- white phlegm. Breathing improved, down to baseline of 3 L nasal cannula. Telemetry sinus rhythm. Denies chest pain, palpitations or shortness of breath. 08/20/2022 worsening renal function, Aldactone and Lasix discontinued. Antibiotics adjusted to ertapenem secondary to urine cultures reporting ESBL. Afebrile. Maintaining O2 sats in the mid to high 90s on 2 L nasal cannula. Denies chest pain, palpitations or increasing shortness of breath. 08/21/2022 continues on ertapenem for ESBL reported in urine cultures. Afebrile Complains of left wrist pain, uric acid level ordered. Denies nausea vomiting or diarrhea. Labs pending. Denies chest pain, palpitations or increased shortness of breath. Maintaining O2 sats of high 90s on 3 L nasal cannula. 08/22/22 maintained on ertapenem, repeat urine culture finalizing. Afebrile. Complains of left wrist, left elbow, left shoulder, left neck pain-limited range of motion, tender to touch. Uric acid elevated, 8.5. RN reports patient choking on a.m. medications/breakfast, threw up breakfast. Maintaining O2 sats in the high 90s to 100% on 2-3 L nasal cannula. Denies chest pain, palpitations. Renal function improving, creatinine down to 1.14. Evaluated by speech therapy, exhibited recurrent regurgitation with all by mouth attempts, ASSOCIATE PROFESSOR OF ENGINEERING terminated further evaluation with esophagram ordered, pending. Uric acid level high-normal, received 1 dose of Solu-Medrol IV push. Patient has been maintained on ertapenem, repeat urine culture reported no growth after 18 hours. Cardiology cleared patient for discharge. Patient will be discharged home possibly today with son pending esophagram, final DC recommendations and clearance per infectious disease. The impression and plan of care has been dictated as directed. : I performed a history and examination of this patient, discussed the same with the dictator. I agree with the dictator's note ,documented as a scribe. Any additional findings or plans will be noted. Patient Condition at Discharge: Stable Plan - Discharge Summary New Discharge Prescriptions: New Furosemide [Lasix] 40 mg PO DAILY #30 tablet Losartan [Cozaar] 50 mg PO DAILY #90 tab Continue Atorvastatin [Lipitor] 20 mg PO DAILY Finasteride [Proscar] 5 mg PO DAILY Aspirin [[place] Aspirin EC] 81 mg PO DAILY Sertraline HCl [Zoloft] 50 mg PO DAILY Tamsulosin [Flomax] 0.4 mg PO HS Ferrous Sulfate [Feosol] 325 mg PO DAILY Gabapentin [Neurontin] 100 mg PO BID Ascorbic Acid [Vitamin C] 500 mg PO DAILY Insulin Glargine,Hum.rec.anlog [Lantus Solostar Pen] 30 unit SQ HS Rivaroxaban [Xarelto] 20 mg PO DAILY Calcium Carbonate [Tums] 1,000 mg PO QID PRN tab PRN Reason: Heartburn Ipratropium-Albuterol Nebulize [Duoneb 0.5 mg-3 mg/3 ml Soln] 3 ml INHALATION RT-QID PRN PRN Reason: Shortness Of Breath Nitroglycerin Sl Tabs [Nitrostat] 0.4 mg SL Q5M PRN PRN Reason: Chest Pain Cholecalciferol (Vitamin D3) [Vitamin D3 (125 MCG = 5,000 IU)] 125 mcg PO DAILY Albuterol Inhaler [Ventolin Hfa Inhaler] 2 puff INHALATION RT-Q6H PRN PRN Reason: Shortness Of Breath Metoprolol Tartrate [Lopressor] 12.5 mg PO BID Acetaminophen Tab [Tylenol] 650 mg PO Q6H PRN PRN Reason: Fever And/ Or Pain Discontinued Acetaminophen [Tylenol Arthritis] 650 mg PO HS Ibuprofen [Motrin Ib] 600 mg PO Q8H PRN PRN Reason: Pain Isosorbide Mononitrate ER [Imdur] 30 mg PO DAILY #30 tab Discharge Medication List Aspirin [[place] Aspirin EC] 81 mg PO DAILY 01/07/19 [History] Atorvastatin [Lipitor] 20 mg PO DAILY 01/07/19 [History] Finasteride [Proscar] 5 mg PO DAILY 01/07/19 [History] Sertraline HCl [Zoloft] 50 mg PO DAILY 02/05/19 [History] Tamsulosin [Flomax] 0.4 mg PO HS 07/06/19 [History] Ferrous Sulfate [Feosol] 325 mg PO DAILY 07/27/20 [History] Gabapentin [Neurontin] 100 mg PO BID 12/06/20 [History] Nitroglycerin Sl Tabs [Nitrostat] 0.4 mg SL Q5M PRN 02/19/21 [History] Ascorbic Acid [Vitamin C] 500 mg PO DAILY 09/14/21 [History] Cholecalciferol (Vitamin D3) [Vitamin D3 (125 MCG = 5,000 IU)] 125 mcg PO DAILY 09/14/21 [History] Insulin Glargine,Hum.rec.anlog [Lantus Solostar Pen] 30 unit SQ HS 09/14/21 [History] Albuterol Inhaler [Ventolin Hfa Inhaler] 2 puff INHALATION RT-Q6H PRN 04/29/22 [History] Rivaroxaban [Xarelto] 20 mg PO DAILY 04/29/22 [History] Calcium Carbonate [Tums] 1,000 mg PO QID PRN tab 05/10/22 [Rx] Ipratropium-Albuterol Nebulize [Duoneb 0.5 mg-3 mg/3 ml Soln] 3 ml INHALATION RT-QID PRN 07/14/22 [History] Metoprolol Tartrate [Lopressor] 12.5 mg PO BID 07/14/22 [History] Acetaminophen Tab [Tylenol] 650 mg PO Q6H PRN 08/17/22 [History] Furosemide [Lasix] 40 mg PO DAILY #30 tablet 08/19/22 [Rx] Losartan [Cozaar] 50 mg PO DAILY #90 tab 08/22/22 [Rx] Follow up Appointment(s)/Referral(s): Homer Harper MD [STAFF PHYSICIAN] - 08/28/22 10:45 am (at main office) Emilee Carroll [NON-STAFF] - As Needed Della Grant MD [Primary Care Provider] - 08/29/22 11:30 am (At [facility] Location) Ambulatory/Diagnostic Orders: Complete Blood Count w/diff [LAB.AMB] Time Frame: 3 Days, Location: None Kerry miller Patient Instructions/Handouts: Heart Failure (DC)
[2022-08-23] MEDS ORDERED: PANTOPRAZOLE 40 MG/10 ML VIAL IVP SCH (14:00)
[2022-08-23] MEDS: ERTAPENEM 1 GM in SODIUM CHLORIDE 0.9% 50 ML IVPB SCH (14:28)
--- NOTE | 2022-08-23 14:43 | P.PN ---
Subjective Progress Note Date: 08/23/22 Principal diagnosis: ESBL Klebsiella urinary tract infection Patient is a 77-year old male presented to the hospital for evaluation of increasing shortness of breath patient also have some urinary symptoms did have a positive UA which has been finalized with ESBL Klebsiella and E. coli. On today's evaluation there is 08/23/2022, the patient continues to be afebrile, the patient is breathing comfortably on room air, the patient denies having any chest pain shortness of breath or cough , the patient denies abdominal pain no diarrhea, no urinary symptoms Objective - Vital Signs Vital signs: Vital Signs Temp 98.2 F 08/23/22 07:58 Pulse 69 08/23/22 07:58 Resp 14 08/23/22 07:58 BP 149/70 08/23/22 07:58 Pulse Ox 96 08/23/22 07:58 FiO2 Intake & Output 08/22/22 08/23/22 08/23/22 18:59 06:59 18:59 Output Total 400 Balance -400 Weight 97.5 kg Output: Urine 400 Other: Voiding Method External Catheter External Catheter External Catheter - Exam GENERAL DESCRIPTION: Elderly male lying in bed, no distress. No tachypnea or accessory muscle of respiration use. LUNGS: Unlabored breathing. Decrease intensity breath sounds HEART: S1, S2, regular rate and rhythm. No loud murmur ABDOMEN: Soft, no tenderness , guarding or rigidity, no organomegaly EXTREMITIES: No edema of feet. - Labs CBC & Chem 7: 08/23/22 06:07 08/23/22 06:07 Labs: Abnormal Lab Results - Last 24 Hours (Table) 08/22/22 08/22/22 08/23/22 Range/Units 16:51 21:18 06:07 RBC (4.40-5.60) X 10*6/uL Hgb (13.0-17.0) g/dL Hct (39.6-50.0) % MCHC (32.0-37.0) g/dL RDW (11.5-14.5) % Lymphocytes # (0.90-5.00) X 10*3/uL Carbon Dioxide 35.5 H (20.0-27.5) mmol/L Anion Gap 8.10 L (10.00-18.00) mmol/L BUN 35.2 H (9.0-27.0) mg/dL Est GFR (CKD-EPI)NonAf 52.6 L (60.0-200.0) BUN/Creatinine Ratio 27.08 H (12.00-20.00) Ratio POC Glucose (mg/dL) 115 H 126 H (70-110) mg/dL C-Reactive Protein 12.00 H (0.00-0.80) mg/dL Total Protein 5.7 L (6.2-8.2) g/dL Albumin 3.5 L (3.8-4.9) g/dL Albumin/Globulin Ratio 1.56 L (1.60-3.17) g/dL 08/23/22 Range/Units 06:07 RBC 3.15 L (4.40-5.60) X 10*6/uL Hgb 9.0 L (13.0-17.0) g/dL Hct 29.9 L (39.6-50.0) % MCHC 30.1 L (32.0-37.0) g/dL RDW 15.1 H (11.5-14.5) % Lymphocytes # 0.60 L (0.90-5.00) X 10*3/uL Carbon Dioxide (20.0-27.5) mmol/L Anion Gap (10.00-18.00) mmol/L BUN (9.0-27.0) mg/dL Est GFR (CKD-EPI)NonAf (60.0-200.0) BUN/Creatinine Ratio (12.00-20.00) Ratio POC Glucose (mg/dL) (70-110) mg/dL C-Reactive Protein (0.00-0.80) mg/dL Total Protein (6.2-8.2) g/dL Albumin (3.8-4.9) g/dL Albumin/Globulin Ratio (1.60-3.17) g/dL Microbiology - Last 24 Hours (Table) 08/21/22 04:29 Urine Culture - Final Urine,Voided Assessment and Plan (1) UTI (urinary tract infection) Status: Acute Code(s): N39.0 - URINARY TRACT INFECTION, SITE NOT SPECIFIED SNOMED Code(s): 28384185 Plan: 1patient with ESBL Klebsiella urinary tract infection possible cystitis clinical not behaving as a deep infection patient with no fever or elevated white count repeat UA still positive ultrasound was negative for any hydronephrosis or structural abnormality, patient seemed to have has some clinical improvement and has received more than 3 doses of Invanz should be enou gh for a mild cystitis clinical not behaving as a deep infection and repeat urine cultures negative no need for antibiotic on discharge Time with Patient: Less than 30
== END 2022-08-23 14:30 | disposition home health service (06) | DRG 291 ==
LOC: EC 20:14 → 3SCARD 23:25 → OBSVTOIN 08-20 09:10 → 4SSUR 08-22 20:00
PROVIDERS: ADMIT Family Medicine; ATTEND Family Medicine
DX: I11.0 Hypertensive heart disease with heart failure (principal); I50.43 Acute on chronic combined systolic (congestive) and diastolic (congestive) heart failure; I16.1 Hypertensive emergency; N17.9 Acute kidney failure, unspecified; N39.0 Urinary tract infection, site not specified; Z16.12 Extended spectrum beta lactamase (ESBL) resistance; I25.10 Atherosclerotic heart disease of native coronary artery without angina pectoris; B96.1 Klebsiella pneumoniae [K. pneumoniae] as the cause of diseases classified elsewhere; B96.20 Unspecified Escherichia coli [E. coli] as the cause of diseases classified elsewhere; E78.5 Hyperlipidemia, unspecified; I25.2 Old myocardial infarction; E11.65 Type 2 diabetes mellitus with hyperglycemia; J44.9 Chronic obstructive pulmonary disease, unspecified; I5A Non-ischemic myocardial injury (non-traumatic); M10.9 Gout, unspecified; T17.990A Other foreign object in respiratory tract, part unspecified in causing asphyxiation, initial encounter; E66.01 Morbid (severe) obesity due to excess calories; M25.532 Pain in left wrist; Z79.01 Long term (current) use of anticoagulants; Z68.35 Body mass index [BMI] 35.0-35.9, adult; Z95.1 Presence of aortocoronary bypass graft; N40.0 Benign prostatic hyperplasia without lower urinary tract symptoms; R77.8 Other specified abnormalities of plasma proteins; Z90.5 Acquired absence of kidney; Z79.82 Long term (current) use of aspirin; Z79.899 Other long term (current) drug therapy; Z82.49 Family history of ischemic heart disease and other diseases of the circulatory system; Z83.3 Family history of diabetes mellitus; Z85.46 Personal history of malignant neoplasm of prostate; Z87.891 Personal history of nicotine dependence; Z95.0 Presence of cardiac pacemaker; Z92.3 Personal history of irradiation; Z71.3 Dietary counseling and surveillance
CPT/HCPCS: 36415; 71045; 74210; 76770; 80048; 80053; 81001; 82009; 82803; 83735; 83880; 84484; 84550; 85025; 85610; 85730; 86140; 87077; 87086; 87186; 87635; 93005; 94760; 96374; 99285

== ENCOUNTER → 2022-08-29 | Outpatient (CLI) | payer MEDICARE, OTHER ==
[2022-08-29 18:33] LABS: Basophils # (A) 0.03 X 10*3/uL (0.00-0.10); Basophils % (A) 0.5 %; Eosinophils # (A) 0.16 X 10*3/uL (0.04-0.35); Eosinophils % (A) 2.6 %; HCT 33.9 % (39.6-50.0); HGB 9.8 g/dL (13.0-17.0); MCH 27.9 pg (27.0-32.0); MCHC 28.9 g/dL (32.0-37.0); MCV 96.6 fL (80.0-97.0); Monocytes # (A) 0.29 X 10*3/uL (0.20-1.00); Monocytes % (A) 4.7 %; NRBC Per 100 WBC 0 /100 WBCS (0.0-0.0); Neutrophils % (A) 78.2 %; Platelet Count 212 X 10*3/uL (140-440); RBC 3.51 X 10*6/uL (4.40-5.60); RDW 14.7 % (11.5-14.5); WBC 6.14 X 10*3/uL (4.50-10.00)
[2022-08-29 18:35] LABS: % Iron Saturation 24.12 (15.00-50.00); African American GFR (CKD) 67.9 (60.0-200.0); Albumin 3.7 g/dL (3.8-4.9); Albumin/Globulin Ratio 1.34 (1.60-3.17); Anion Gap 8.8 mmol/L (10.00-18.00); BUN/Creat Ratio 17.31 Ratio (12.00-20.00); Blood Urea Nitrogen 20.6 mg/dL (9.0-27.0); Calcium 8.9 mg/dL (8.7-10.3); Carbon Dioxide 30.1 mmol/L (20.0-27.5); Globulin 2.7 g/dL (1.6-3.3); Magnesium 2.1 mg/dL (1.5-2.4); Non-African American GFR(CKD) 58.6 (60.0-200.0); Phosphorus 2.4 mg/dL (2.4-5.1); Potassium 5.3 mmol/L (3.5-5.5); Total Bilirubin 0.4 mg/dL (0.30-1.20); Total Protein 6.4 g/dL (6.2-8.2); Uric Acid 6.8 mg/dL (3.7-8.7)
== END | disposition home or self-care (01) ==
LOC: LABWHC1 12:46
PROVIDERS: ATTEND Internal Medicine Nephrology
DX: N25.81 Secondary hyperparathyroidism of renal origin (principal); N18.31 Chronic kidney disease, stage 3a; D63.1 Anemia in chronic kidney disease; E55.9 Vitamin D deficiency, unspecified; N39.0 Urinary tract infection, site not specified; M10.9 Gout, unspecified
CPT/HCPCS: 36415; 80053; 82306; 82728; 83540; 83550; 83735; 83970; 84100; 84550; 85025

== ENCOUNTER 2022-09-24 05:03 | Inpatient (IN) | payer MEDICARE, OTHER ==
[2022-09-24 06:06] LABS: Partial Thromboplastin Time 26.9 sec (22.0-30.0); Prothrombin Time 10.8 sec (9.0-12.0)
[2022-09-24 06:08] LABS: Albumin 3.4 g/dL (3.5-5.0); Calcium 8.5 mg/dL (8.4-10.2); Potassium 4.8 mmol/L (3.5-5.1); Total Bilirubin 0.4 mg/dL (0.2-1.3); Total Protein 5.7 g/dL (6.3-8.2)
[2022-09-24 06:20] LABS: Basophils % (A) 1 %; Eosinophils # (A) 0.1 k/uL (0-0.7); Eosinophils % (A) 3 %; HCT 29.9 % (39.0-53.0); HGB 9.2 gm/dL (13.0-17.5); Hypochromasia Marked; Lymphocytes # (A) 0.7 k/uL (1.0-4.8); Lymphocytes % (A) 16 %; MCH 28.4 pg (25.0-35.0); MCHC 30.9 g/dL (31.0-37.0); MCV 91.7 fL (80.0-100.0); Monocytes # (A) 0.2 k/uL (0-1.0); Monocytes % (A) 6 %; Neutrophils # (A) 3.2 k/uL (1.3-7.7); Neutrophils % (A) 74 %; Platelet Count 136 k/uL (150-450); RBC 3.25 m/uL (4.30-5.90); RDW 14.6 % (11.5-15.5); WBC 4.3 k/uL (3.8-10.6)
--- NOTE | 2022-09-24 06:53 | XR ---
EXAMINATION TYPE: XR chest 2V DATE OF EXAM: 09/24/2022 COMPARISON: 08/17/2022 HISTORY: Chest pain Short of breath TECHNIQUE: FINDINGS: There is infiltrate and atelectasis in the right middle lobe. The left lung is fairly clear . No heart failure. There are sternal wires. There is left axillary pacemaker. IMPRESSION: There is some chronic right middle lobe infiltrate and atelectasis which is not significa ntly different than last exam. No heart failure seen.
--- NOTE | 2022-09-24 06:57 | XR ---
EXAMINATION TYPE: XR cervical spine limited DATE OF EXAM: 09/24/2022 COMPARISON: NONE HISTORY: Pain TECHNIQUE: 3 view FINDINGS: The cervical vertebra have fairly normal alignment. There is a minimal retrolisthesis at C4 -5. There is large hypertrophic anterior bridging osteophyte formation at C5-6 and C6-7. Atlantoaxial facet joint is normal. There are no cervical ribs. No fracture seen. IMPRESSION: Hypertrophic bridging osteophyte formation. Mild C4-5 retrolisthesis. No fractures seen. Subluxation at C4-5 is new compared to old CT scan of 09/14/2021. Some ligamentous instability as pos sible.
--- NOTE | 2022-09-24 06:57 | ED ---
SOB HPI - General Chief Complaint: Shortness of Breath Stated Complaint: Difficulty Breathing, Neck Pain Time Seen by Provider: 09/24/22 06:37 Source: patient, family, RN notes reviewed Mode of arrival: ambulatory Limitations: no limitations - History of Present Illness Initial Comments: This is a 77-year-old male who presents to the emergency department for chest pain and shortness of breath. He does also report pain in his neck and left leg, however he states that that pain has been present for several weeks and is not worsening. He does wear oxygen at home and has not had to increase how much oxygen he uses. Last night, he felt much more short of breath than usual. Additionally, for the last week he has had chest pain and has been taking n itroglycerin. States that the nitroglycerin has relieved the chest pain each time. His data software engineer is Dr. Harper, states that he saw Dr. Harper recently, but does not remember when. He does have a fairly significant cardiac history, including a CABG in 2018, heart failure, and a permanent pacemaker. He is a somewhat poor historian, and his son is at bedside to provide most of the information. Denies any fevers, chills, sore throat, cough, palpitations, abdominal pain, nausea, vomiting, diarrhea, or headaches. MD Complaint: shortness of breath, chest pain Known History Of: congestive heart failure - Related Data Home Medications Medication Instructions Recorded Confirmed Aspirin [[place] Aspirin EC] 81 mg PO DAILY 01/07/19 08/17/22 Atorvastatin [Lipitor] 20 mg PO DAILY 01/07/19 08/17/22 Finasteride [Proscar] 5 mg PO DAILY 01/07/19 08/17/22 Sertraline HCl [Zoloft] 50 mg PO DAILY 02/05/19 08/17/22 Tamsulosin [Flomax] 0.4 mg PO HS 07/06/19 08/17/22 Ferrous Sulfate [Feosol] 325 mg PO DAILY 07/27/20 08/17/22 Gabapentin [Neurontin] 100 mg PO BID 12/06/20 08/17/22 Nitroglycerin Sl Tabs [Nitrostat] 0.4 mg SL Q5M PRN 02/19/21 08/17/22 Ascorbic Acid [Vitamin C] 500 mg PO DAILY 09/14/21 08/17/22 Cholecalciferol (Vitamin D3) 125 mcg PO DAILY 09/14/21 08/17/22 [Vitamin D3 (125 MCG = 5,000 IU)] Insulin Glargine,Hum.rec.anlog 30 unit SQ HS 09/14/21 08/17/22 [Lantus Solostar Pen] Albuterol Inhaler [Ventolin Hfa 2 puff INHALATION RT-Q6H PRN 04/29/22 08/17/22 Inhaler] Rivaroxaban [Xarelto] 20 mg PO DAILY 04/29/22 08/17/22 Ipratropium-Albuterol Nebulize 3 ml INHALATION RT-QID PRN 07/14/22 08/17/22 [Duoneb 0.5 mg-3 mg/3 ml Soln] Metoprolol Tartrate [Lopressor] 12.5 mg PO BID 07/14/22 08/17/22 Acetaminophen Tab [Tylenol] 650 mg PO Q6H PRN 08/17/22 08/17/22 Previous Rx's Medication Instructions Recorded Calcium Carbonate [Tums] 1,000 mg PO QID PRN tab 05/10/22 Furosemide [Lasix] 40 mg PO DAILY #30 tablet 08/19/22 Losartan [Cozaar] 50 mg PO DAILY #90 tab 08/22/22 Allergies Allergy/AdvReac Type Severity Reaction Status Date / Time No Known Allergies Allergy Verified 09/24/22 05:11 Review of Systems ROS Statement: Those systems with pertinent positive or pertinent negative responses have been documented in the HPI. ROS Other: All systems not noted in ROS Statement are negative. 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,prostate bx, triple bypass 2017, bronchoscopy Past Anesthesia/Blood Transfusion Reactions: No Reported Reaction Type of Cardiac Device: Permanent Pacemaker Device Placement Date:: 12/08/20 Past Psychological History: No Psychological Hx Reported Smoking Status: Former smoker Past Alcohol Use History: None Reported Past Drug Use History: None Reported - Past Family History Father Family Medical History: Diabetes Mellitus Additional Family Medical History / Comment(s): Pt states mother had diabetes Mother Family Medical History: Coronary Artery Disease (CAD), Diabetes Mellitus Additional Family Medical History / Comment(s): CABG General Exam Limitations: no limitations General appearance: alert, in no apparent distress Head exam: Present: atraumatic, normocephalic, normal inspection Respiratory exam: Present: normal lung sounds bilaterally. Absent: respiratory distress, wheezes, rales, rhonchi, stridor Cardiovascular Exam: Present: regular rate, normal rhythm, normal heart sounds. Absent: systolic murmur, diastolic murmur, rubs, gallop, clicks Neurological exam: Present: alert, oriented X3, CN II-XII intact Psychiatric exam: Present: normal affect, normal mood Skin exam: Present: warm, dry, intact, normal color. Absent: rash Course Vital Signs 09/24/22 05:12 Temperature 97.6 F Pulse Rate 60 Respiratory 16 Rate Blood Pressure 110/73 O2 Sat by Pulse 98 Oximetry Medical Decision Making - Medical Decision Making This is a 77-year-old male who presents to the emergency department for chest pain and shortness of breath. His troponin is elevated, however it is elevated each time that he is here. He also has an acute KAVITHA with a creatinine of 2.02 and GFR of 31. BNP is elevated as well, however not higher than prior values. Chest x-ray reveals a stable right middle lobe infiltrate and atelectasis. X- ray of the cervical spine reveals a new subluxation at C4-C5 with possible ligamentous instability. Patient will be admitted to medicine for KAVITHA and chest pain with cardiology consult. This case was discussed in detail with the attending ED physician. Presentation, findings, and treatment plan discussed in detail as well. - Lab Data Result diagrams: 09/24/22 05:35 09/24/22 05:35 Lab Results 09/24/22 09/24/22 09/24/22 Range/Units 05:35 05:35 05:35 WBC 4.3 (3.8-10.6) k/uL RBC 3.25 L (4.30-5.90) m/uL Hgb 9.2 L (13.0-17.5) gm/dL Hct 29.9 L (39.0-53.0) % MCV 91.7 (80.0-100.0) fL MCH 28.4 (25.0-35.0) pg MCHC 30.9 L (31.0-37.0) g/dL RDW 14.6 (11.5-15.5) % Plt Count 136 L (150-450) k/uL MPV 9.0 Neutrophils % 74 % Lymphocytes % 16 % Monocytes % 6 % Eosinophils % 3 % Basophils % 1 % Neutrophils # 3.2 (1.3-7.7) k/uL Lymphocytes # 0.7 L (1.0-4.8) k/uL Monocytes # 0.2 (0-1.0) k/uL Eosinophils # 0.1 (0-0.7) k/uL Basophils # 0.0 (0-0.2) k/uL Hypochromasia Marked PT 10.8 (9.0-12.0) sec INR 1.0 (<1.2) APTT 26.9 (22.0-30.0) sec Sodium 135 L (137-145) mmol/L Potassium 4.8 (3.5-5.1) mmol/L Chloride 96 L (98-107) mmol/L Carbon Dioxide 32 H (22-30) mmol/L Anion Gap 7 mmol/L BUN 36 H (9-20) mg/dL Creatinine 2.02 H (0.66-1.25) mg/dL Est GFR (CKD-EPI)AfAm 36 (>60 ml/min/1.73 sqM) Est GFR (CKD-EPI)NonAf 31 (>60 ml/min/1.73 sqM) Glucose 132 H (74-99) mg/dL Calcium 8.5 (8.4-10.2) mg/dL Total Bilirubin 0.4 (0.2-1.3) mg/dL AST 20 (17-59) U/L ALT 15 (4-49) U/L Alkaline Phosphatase 91 (38-126) U/L Troponin I (0.000-0.034) ng/mL NT-Pro-B Natriuret Pep pg/mL Total Protein 5.7 L (6.3-8.2) g/dL Albumin 3.4 L (3.5-5.0) g/dL 09/24/22 09/24/22 Range/Units 05:35 05:35 WBC (3.8-10.6) k/uL RBC (4.30-5.90) m/uL Hgb (13.0-17.5) gm/dL Hct (39.0-53.0) % MCV (80.0-100.0) fL MCH (25.0-35.0) pg MCHC (31.0-37.0) g/dL RDW (11.5-15.5) % Plt Count (150-450) k/uL MPV Neutrophils % % Lymphocytes % % Monocytes % % Eosinophils % % Basophils % % Neutrophils # (1.3-7.7) k/uL Lymphocytes # (1.0-4.8) k/uL Monocytes # (0-1.0) k/uL Eosinophils # (0-0.7) k/uL Basophils # (0-0.2) k/uL Hypochromasia PT (9.0-12.0) sec INR (<1.2) APTT (22.0-30.0) sec Sodium (137-145) mmol/L Potassium (3.5-5.1) mmol/L Chloride (98-107) mmol/L Carbon Dioxide (22-30) mmol/L Anion Gap mmol/L BUN (9-20) mg/dL Creatinine (0.66-1.25) mg/dL Est GFR (CKD-EPI)AfAm (>60 ml/min/1.73 sqM) Est GFR (CKD-EPI)NonAf (>60 ml/min/1.73 sqM) Glucose (74-99) mg/dL Calcium (8.4-10.2) mg/dL Total Bilirubin (0.2-1.3) mg/dL AST (17-59) U/L ALT (4-49) U/L Alkaline Phosphatase (38-126) U/L Troponin I 0.035 H* (0.000-0.034) ng/mL NT-Pro-B Natriuret Pep 3810 pg/mL Total Protein (6.3-8.2) g/dL Albumin (3.5-5.0) g/dL - EKG Data EKG Comments: Electronic atrial pacemaker. Right bundle branch block. Left ventricular hy pertrophy. Ventricular rate 60 bpm, IA interval 190 ms, QRS duration 161 ms, QTC 470 ms. - Radiology Data Radiology results: report reviewed, image reviewed Disposition Clinical Impression: CAD (coronary artery disease), KAVITHA (acute kidney injury), Chest pain Disposition: ADMITTED IP TO THIS HOSP Referrals: Della Grant MD [Primary Care Provider] - 1-2 days
[2022-09-24] MEDS ORDERED: ACETAMINOPHEN TAB 325 MG TAB PO PRN (08:09)
[2022-09-24] MEDS ORDERED: NALOXONE 0.4 MG/ML 1 ML VIAL IV PRN (08:09)
[2022-09-24] MEDS ORDERED: ONDANSETRON 4 MG/2 ML VIAL IVP PRN (08:09)
[2022-09-24] MEDS ORDERED: NITROGLYCERIN SL TABS 0.4 MG TAB SUBLINGUAL PRN (08:13)
[2022-09-24 19:58] LABS: Glucose,Whole Blood 267 mg/dL (70-110)
[2022-09-24] MEDS: TAMSULOSIN 0.4 MG CAP.ER.24H PO SCH (20:18)
[2022-09-24] MEDS: METOPROLOL TARTRATE 12.5 MG TAB PO SCH (20:19)
[2022-09-24] MEDS: GABAPENTIN 100 MG CAP PO SCH (20:19)
[2022-09-24] MEDS: HYDROcodone/APAP 5-325MG 1 EACH TAB PO PRN (22:16)
[2022-09-25] MEDS ORDERED: DEXTROSE 50% SYRINGE 50 ML IVP PRN ×2 (02:38)
[2022-09-25] MEDS: HYDROcodone/APAP 5-325MG 1 EACH TAB PO PRN ×2 (05:28→21:11)
[2022-09-25 06:14] LABS: Glucose,Whole Blood 150 mg/dL (70-110)
[2022-09-25] MEDS: INSULIN ASPART (NovoLOG) 100 UNIT/ML VIAL SQ SCH ×4 (06:42→19:59)
[2022-09-25] MEDS ORDERED: HEPARIN SODIUM 1,000 UN/ML (10ML VL) IV PRN (07:38)
[2022-09-25 08:44] LABS: Basophils # (A) 0.1 k/uL (0-0.2); Basophils % (A) 1 %; Eosinophils # (A) 0.1 k/uL (0-0.7); Eosinophils % (A) 3 %; HCT 32.9 % (39.0-53.0); HGB 9.7 gm/dL (13.0-17.5); Hypochromasia Marked; Lymphocytes # (A) 0.6 k/uL (1.0-4.8); Lymphocytes % (A) 13 %; MCH 27.9 pg (25.0-35.0); MCHC 29.5 g/dL (31.0-37.0); MCV 94.8 fL (80.0-100.0); Mean Platelet Volume 9.4; Monocytes # (A) 0.3 k/uL (0-1.0); Monocytes % (A) 6 %; Neutrophils # (A) 3.2 k/uL (1.3-7.7); Neutrophils % (A) 74 %; Platelet Count 148 k/uL (150-450); RBC 3.47 m/uL (4.30-5.90); RDW 14.6 % (11.5-15.5); WBC 4.3 k/uL (3.8-10.6)
[2022-09-25] MEDS ORDERED: SODIUM CHLORIDE 0.9% 1,000 ML IV STA (08:50)
--- NOTE | 2022-09-25 08:55 | P.CRDCN ---
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 He follows in the office with Dr. Harper. We have been asked to see in consultation for elevated troponin and chest pain. Patient is a poor historian. Patient presents emergency department with complaints of intermittent chest discomfort and worsening shortness of breath. He does state that for the past week he has been having chest discomfort and taking sublingual nitroglycerin every night for the past one week. He thinks that the nitro has improved his pain because he's able to sleep after this. He also endorses some worsening shortness of breath with activity as well. He denies any specific aggravating factors of the chest pain. He denies any palpitations, lightheadedness, dizziness, syncope or near syncope. He does have a cough. No known fevers or chills. He denies any symptoms of orthopnea or PND. DIAGNOSTICS * EKG reveals atrial paced, right bundle branch block, left anterior fascicular block., Heart rate 60 * Telemetry tracings indicate atrial paced, heart rate in 60s. * Chest xray chronic right middle lobe infiltrate. No acute heart failure. * Laboratory reviewed, initial troponin 0.035, repeat 0.03, 0.03, proBNP 2810, sodium 135, potassium 4.8, BUN 36, serum creatinine 2.0, WBC 4.3, hemoglobin 9.7, platelets 148 * Current home cardiac medications include when necessary nitro, Xarelto 20 mg daily, metoprolol titrate 12.5 mg twice a day, losartan 25 mg daily, Lasix 40 mg daily, atorvastatin 20 mg daily * Echocardiogram 05/2022 revealed an EF of 50%, difficulty study with preserved LV function, unable to visualize valves * Lexiscan stress test 07/[address] Harper an EF of 45%, small size mild and intensity lateral wall partially reversible defect, no clear-cut ischemia, could be artifact REVIEW OF SYSTEMS At the time of my exam: CONSTITUTIONAL: Denies fever or chills. CARDIOVASCULAR: Denies chest pain, shortness of breath, orthopnea, PND or palpitations. RESPIRATORY: Denies cough. GASTROINTESTINAL: Denies abdominal pain, diarrhea, constipation, nausea or vomiting. MUSCULOSKELETAL: Denies myalgias. NEUROLOGIC: Denies numbness, tingling, headacbe or weakness. ENDOCRINE: Denies fatigue, weight change, polydipsia or polyurina. GENITOURINARY: Denies burning, hematuria or urgency with micturation. HEMATOLOGIC: Denies history of anemia or bleeding. PHYSICAL EXAMINATION Blood pressure 146/69, heart 60, afebrile, oxygen saturation 99% on 4 L nasal cannula CONSTITUTIONAL: No apparent distress. HEENT: Head is normocephalic. Pupils are equal, round. Sclerae anicteric. Mucous membranes of the mouth are moist. No JVD. No carotid bruit. CHEST EXAMINATION: Lungs are clear to auscultation. No chest wall tenderness is noted on palpation or with deep breathing. HEART EXAMINATION: Regular rate and rhythm. S1, S2 heard. No murmurs, gallops or rub. ABDOMEN: Soft, nontender. Positive bowel sounds. EXTREMITIES: 2+ peripheral pulses, no lower extremity edema and no calf tenderness. NEUROLOGIC EXAMINATION: Patient is awake, alert and oriented x3. ASSESSMENT Chest discomfort with relief with nitro, concerning for possible unstable angina Acute kidney injury Mildly elevated troponin x 1, repeat troponin negative x 2 Coronary artery disease and status post CABG in 2018 where at that point he underwent CHAHAL to LAD and SVG to OM as well as SVG to RCA Type 2 diabetes Dyslipidemia Hypertension Former tobacco use Chronic kidney disease Congestive heart failure with preserved ejection fraction History of yncope with second degree AV block status post dual chamber pacemaker implantation 12/2020 PLAN Obtain 2D echocardiogram and doppler study to assess cardiac structure and function. IV heparin Hold Xarelto Aspirin, statin Continue Lasix PO, losartan and metoprolol Start IV fluids Monitor renal function NPO after midnight for possible cardiac catheterization vs stress test based on above findings and clinical course Further recommendations based on clinical course Nurse practitioner note has been reviewed by physician. Signing provider agrees with the documented findings, assessment, and plan of care. Past Medical History Past Medical History: Coronary Artery Disease (CAD), Cancer, COPD, Diabetes Mellitus, Hyperlipidemia, Hypertension, Myocardial Infarction ([place]), Prostate Disorder Additional Past Medical History / Comment(s): prostate cancer with radiation > 20 years ago, nstemi, wears a brief incont urine/stool Last Myocardial Infarction Date:: 2017 History of Any Multi-Drug Resistant Organisms: ESBL, MRSA Date of last positivie culture/infection: Pt states he is unsure MDRO Source:: Unknown Past Surgical History: Coronary Bypass/CABG Additional Past Surgical History / Comment(s): 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,prostate bx, triple bypass 2017, bronchoscopy Past Anesthesia/Blood Transfusion Reactions: No Reported Reaction Type of Cardiac Device: Permanent Pacemaker Device Placement Date:: 12/08/20 Past Psychological History: No Psychological Hx Reported Additional Psychological History / Comment(s): Pt states he lives at home with son. Smoking Status: Former smoker Past Alcohol Use History: None Reported Additional Past Alcohol Use History / Comment(s): Pt started smoking as a teen and was a 3 ppd smoker but quit in 1990. Pt states he used to drink alcohol "years ago" Past Drug Use History: None Reported Additional Drug Use History / Comment(s): Used to use alcohol regularely. States he goes to [employer] meetings. - Past Family History Father Family Medical History: Diabetes Mellitus Additional Family Medical History / Comment(s): Pt states mother had diabetes Mother Family Medical History: Coronary Artery Disease (CAD), Diabetes Mellitus Additional Family Medical History / Comment(s): CABG Medications and Allergies Home Medications Medication Instructions Recorded Confirmed Type Aspirin [[place] Aspirin EC] 81 mg PO DAILY 01/07/19 09/24/22 History Atorvastatin [Lipitor] 20 mg PO DAILY 01/07/19 09/24/22 History Finasteride [Proscar] 5 mg PO DAILY 01/07/19 09/24/22 History Sertraline HCl [Zoloft] 50 mg PO DAILY 02/05/19 09/24/22 History Tamsulosin [Flomax] 0.4 mg PO HS 07/06/19 09/24/22 History Ferrous Sulfate [Feosol] 325 mg PO DAILY 07/27/20 09/24/22 History Gabapentin [Neurontin] 100 mg PO BID 12/06/20 09/24/22 History Nitroglycerin Sl Tabs [Nitrostat] 0.4 mg SL Q5M PRN 02/19/21 09/24/22 History Ascorbic Acid [Vitamin C] 500 mg PO DAILY 09/14/21 09/24/22 History Cholecalciferol (Vitamin D3) 125 mcg PO DAILY 09/14/21 09/24/22 History [Vitamin D3 (125 MCG = 5,000 IU)] Insulin Glargine,Hum.rec.anlog 30 unit SQ HS 09/14/21 09/24/22 History [Lantus Solostar Pen] Albuterol Inhaler [Ventolin Hfa 2 puff INHALATION RT-Q6H PRN 04/29/22 09/24/22 History Inhaler] Rivaroxaban [Xarelto] 20 mg PO DAILY 04/29/22 09/24/22 History Calcium Carbonate [Tums] 1,000 mg PO QID PRN tab 05/10/22 09/24/22 Rx Ipratropium-Albuterol Nebulize 3 ml INHALATION RT-QID PRN 07/14/22 09/24/22 History [Duoneb 0.5 mg-3 mg/3 ml Soln] Metoprolol Tartrate [Lopressor] 12.5 mg PO BID 07/14/22 09/24/22 History Acetaminophen Tab [Tylenol] 650 mg PO Q6H PRN 08/17/22 09/24/22 History Furosemide [Lasix] 40 mg PO DAILY #30 tablet 08/19/22 09/24/22 Rx Losartan [Cozaar] 25 mg PO DAILY 09/24/22 09/24/22 History Sulfamethox-Tmp 800-160Mg [Bactrim 1 tab PO BID 09/24/22 09/24/22 History DS 800-160 mg] Allergies Allergy/AdvReac Type Severity Reaction Status Date / Time No Known Allergies Allergy Verified 09/24/22 09:09 Physical Exam Vitals: Vital Signs Temp Pulse Pulse Resp BP BP Pulse Ox 09/25/22 04:00 97.6 F 60 17 146/69 99 09/24/22 23:32 98.1 F 71 16 113/71 98 09/24/22 20:00 98.0 F 69 18 158/74 97 09/24/22 18:41 98.2 F 60 17 163/66 98 09/24/22 16:41 65 18 136/71 97 09/24/22 12:00 97.6 F 61 20 162/96 98 09/24/22 08:15 60 20 118/48 99 Intake and Output 09/24/22 09/25/22 09/25/22 22:59 06:59 14:59 Intake Total 240 Balance 240 Intake: Oral 240 Other: Voiding Method Urinal Urinal # Voids 4 Weight 98.43 kg Results 09/25/22 07:46 09/24/22 05:35 Cardiac Enzymes 09/24/22 09/24/22 Range/Units 09:36 13:04 Troponin I 0.034 0.030 (0.000-0.034) ng/mL Current Medications Generic Name Dose Route Start Last Admin Trade Name Freq PRN Reason Stop Dose Admin Acetaminophen 650 mg 09/24/22 08:09 Acetaminophen Tab 325 Mg Tab PO Q6HR PRN Mild Pain or Fever > 100.5 Hydrocodone Bitart/Acetaminophen 1 each 09/24/22 08:09 09/25/22 05:28 Hydrocodone/Apap 5-325mg 1 Each Tab PO 1 each Q4HR PRN Administration Moderate Pain (Scale 4 to 6) Ascorbic Acid 500 mg 09/25/22 09:00 Ascorbic Acid 500 Mg Tab PO DAILY [facility] Atorvastatin Calcium 20 mg 09/25/22 09:00 Atorvastatin 20 Mg Tab PO DAILY [facility] Cholecalciferol 125 mcg 09/25/22 09:00 Cholecalciferol 125 Mcg (5000 Iu) Tablet PO DAILY [facility] Dextrose/Water 25 ml 09/25/22 02:38 Dextrose 50% Syringe 50 Ml IVP PER PROTOCOL PRN Hypoglycemia Protocol Dextrose/Water 50 ml 09/25/22 02:38 Dextrose 50% Syringe 50 Ml IVP PER PROTOCOL PRN Hypoglycemia Protocol Ferrous Sulfate 325 mg 09/25/22 09:00 Ferrous Sulfate 325 Mg Tab PO DAILY [facility] Finasteride 5 mg 09/25/22 09:00 Finasteride 5 Mg Tab PO DAILY [facility] Furosemide 40 mg 09/25/22 09:00 Furosemide 40 Mg Tab PO DAILY [facility] Gabapentin 100 mg 09/24/22 21:00 09/24/22 20:19 Gabapentin 100 Mg Cap PO 100 mg BID ALEXEY Administration Insulin Aspart 0 unit 09/25/22 07:30 09/25/22 06:42 Insulin Aspart (Novolog) 100 Unit/Ml Vial SQ Not Given ACHS ALEXEY Protocol Losartan Potassium 25 mg 09/25/22 09:00 Losartan 25 Mg Tab PO DAILY [facility] Metoprolol Tartrate 12.5 mg 09/24/22 21:00 09/24/22 20:19 Metoprolol Tartrate 12.5 Mg Tab PO 12.5 mg BID ALEXEY Administration Naloxone HCl 0.2 mg 09/24/22 08:09 Naloxone 0.4 Mg/Ml 1 Ml Vial IV Q2M PRN Opioid Reversal Nitroglycerin 0.4 mg 09/24/22 08:13 Nitroglycerin Sl Tabs 0.4 Mg Tab SUBLINGUAL Q5M PRN Chest Pain Ondansetron HCl 4 mg 09/24/22 08:09 Ondansetron 4 Mg/2 Ml Vial IVP Q8HR PRN Nausea And Vomiting Rivaroxaban 20 mg 09/25/22 09:00 Rivaroxaban 20 Mg Tab PO DAILY [facility] Protocol Sertraline HCl 50 mg 09/25/22 09:00 Sertraline 50 Mg Tab PO DAILY [facility] Tamsulosin HCl 0.4 mg 09/24/22 21:00 09/24/22 20:18 Tamsulosin 0.4 Mg Cap.Er.24h PO 0.4 mg [facility] Administration Intake and Output 09/24/22 09/25/22 09/25/22 22:59 06:59 14:59 Intake Total 240 Balance 240 Intake: Oral 240 Other: Voiding Method Urinal Urinal # Voids 4 Weight 98.43 kg 09/24/22 05:35 09/24/22 05:35
[2022-09-25] MEDS ORDERED: ASPIRIN 81 MG PO SCH (09:00)
[2022-09-25] MEDS ORDERED: RIVAROXABAN 20 MG TAB PO SCH (09:00)
[2022-09-25 09:04] LABS: African American GFR (CKD) 45 (>60 ml/min/1.73 sqM); Anion Gap 6 mmol/L; Blood Urea Nitrogen 29 mg/dL (9-20); Calcium 8.8 mg/dL (8.4-10.2); Carbon Dioxide 34 mmol/L (22-30); Chloride 97 mmol/L (98-107); Glucose 138 mg/dL (74-99); Non-African American GFR(CKD) 39 (>60 ml/min/1.73 sqM); Potassium 5.1 mmol/L (3.5-5.1); Sodium 137 mmol/L (137-145)
[2022-09-25 09:16] LABS: INR 0.9 (<1.2); Partial Thromboplastin Time 25.4 sec (22.0-30.0); Prothrombin Time 10.4 sec (9.0-12.0)
[2022-09-25] MEDS: METOPROLOL TARTRATE 12.5 MG TAB PO SCH ×2 (10:04→20:11)
[2022-09-25] MEDS: FERROUS SULFATE 325 MG TAB PO SCH (10:05)
[2022-09-25] MEDS: SERTRALINE 50 MG TAB PO SCH (10:05)
[2022-09-25] MEDS: ASCORBIC ACID 500 MG TAB PO SCH (10:05)
[2022-09-25] MEDS: LOSARTAN 25 MG TAB PO SCH (10:05)
[2022-09-25] MEDS: FINASTERIDE 5 MG TAB PO SCH (10:05)
[2022-09-25] MEDS: FUROSEMIDE 40 MG TAB PO SCH (10:05)
[2022-09-25] MEDS: ATORVASTATIN 20 MG TAB PO SCH (10:05)
[2022-09-25] MEDS: GABAPENTIN 100 MG CAP PO SCH ×2 (10:06→20:11)
[2022-09-25] MEDS: CHOLECALCIFEROL 125 MCG (5000 IU) TABLET PO SCH (10:06)
[2022-09-25] MEDS: HEPARIN SOD,PORK IN 0.45% NACL 25,000 UNIT in 0.45% NACL 1 250ML.BAG IV SCH (10:08)
[2022-09-25 11:43] LABS: Glucose,Whole Blood 255 mg/dL (70-110)
--- NOTE | 2022-09-25 15:27 | P.HPIM ---
History of Present Illness H&P Date: 09/25/22 Chief Complaint: Nausea, chest pain This is a 77-year-old gentleman with past medical history of CAD, CABG, cardiac stents, pacemaker for second-degree heart block, paroxysmal atrial fibrillation anticoagulated on Xarelto ,presented to the ER with complaints of chest pain, na usea 1 day, had been taken nitroglycerin daily for a few days-vague historian. Denies emesis, some exertional shortness of breath, denies diaphoresis. Denies lightheadedness dizziness or focal deficits. Patient normally wears 3 L nasal cannula O2 at home currently requiring 4 L nasal cannula maintaining O2 sats in the high 90s. EKG reporting atrial paced, right bundle branch block, left anter ior fascicular block, troponin 0.035, 0.034, 0.030. Cervical spine x-ray reporting hypertrophic bridging osteophyte formation, mild C4-5 retrolisthesis, no fractures, subluxation of C4-5 is new compared to prior computed tomography scan some ligamentous instability. Chest x-ray reporting chronic right middle lobe infiltrate and atelectasis not significantly different from prior exam, no CHF seen. Hemoglobin 9.7, platelets 148. ProBNP 2810. BUN 36/creatinine 2.02 on admission currently he 29/1.69. Sodium 137, potassium 5.1. Afebrile, normal WBC. Review of Systems ROS Statement: Those systems with pertinent positive or pertinent negative responses have been documented in the HPI. ROS Other: All systems not noted in ROS Statement are negative. Past Medical History Past Medical History: Coronary Artery Disease (CAD), Cancer, COPD, Diabetes Mellitus, Hyperlipidemia, Hypertension, Myocardial Infarction ([place]), Prostate Disorder Additional Past Medical History / Comment(s): prostate cancer with radiation > 20 years ago, nstemi, wears a brief incont urine/stool Last Myocardial Infarction Date:: 2018 History of Any Multi-Drug Resistant Organisms: ESBL, MRSA Date of last positivie culture/infection: Pt states he is unsure MDRO Source:: Unknown Past Surgical History: Coronary Bypass/CABG Additional Past Surgical History / Comment(s): 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,prostate bx, triple bypass 2017, bronchoscopy Past Anesthesia/Blood Transfusion Reactions: No Reported Reaction Type of Cardiac Device: Permanent Pacemaker Device Placement Date:: 12/08/20 Past Psychological History: No Psychological Hx Reported Additional Psychological History / Comment(s): Pt states he lives at home with son. Smoking Status: Former smoker Past Alcohol Use History: None Reported Additional Past Alcohol Use History / Comment(s): Pt started smoking as a teen and was a 3 ppd smoker but quit in 1990. Pt states he used to drink alcohol "years ago" Past Drug Use History: None Reported Additional Drug Use History / Comment(s): Used to use alcohol regularely. States he goes to [employer] meetings. - Past Family History Father Family Medical History: Diabetes Mellitus Additional Family Medical History / Comment(s): Pt states mother had diabetes Mother Family Medical History: Coronary Artery Disease (CAD), Diabetes Mellitus Additional Family Medical History / Comment(s): CABG Medications and Allergies Home Medications Medication Instructions Recorded Confirmed Type Aspirin [[place] Aspirin EC] 81 mg PO DAILY 01/07/19 09/24/22 History Atorvastatin [Lipitor] 20 mg PO DAILY 01/07/19 09/24/22 History Finasteride [Proscar] 5 mg PO DAILY 01/07/19 09/24/22 History Sertraline HCl [Zoloft] 50 mg PO DAILY 02/05/19 09/24/22 History Tamsulosin [Flomax] 0.4 mg PO HS 07/06/19 09/24/22 History Ferrous Sulfate [Feosol] 325 mg PO DAILY 07/27/20 09/24/22 History Gabapentin [Neurontin] 100 mg PO BID 12/06/20 09/24/22 History Nitroglycerin Sl Tabs [Nitrostat] 0.4 mg SL Q5M PRN 02/19/21 09/24/22 History Ascorbic Acid [Vitamin C] 500 mg PO DAILY 09/14/21 09/24/22 History Cholecalciferol (Vitamin D3) 125 mcg PO DAILY 09/14/21 09/24/22 History [Vitamin D3 (125 MCG = 5,000 IU)] Insulin Glargine,Hum.rec.anlog 30 unit SQ HS 09/14/21 09/24/22 History [Lantus Solostar Pen] Albuterol Inhaler [Ventolin Hfa 2 puff INHALATION RT-Q6H PRN 04/29/22 09/24/22 History Inhaler] Rivaroxaban [Xarelto] 20 mg PO DAILY 04/29/22 09/24/22 History Calcium Carbonate [Tums] 1,000 mg PO QID PRN tab 05/10/22 09/24/22 Rx Ipratropium-Albuterol Nebulize 3 ml INHALATION RT-QID PRN 07/14/22 09/24/22 History [Duoneb 0.5 mg-3 mg/3 ml Soln] Metoprolol Tartrate [Lopressor] 12.5 mg PO BID 07/14/22 09/24/22 History Acetaminophen Tab [Tylenol] 650 mg PO Q6H PRN 08/17/22 09/24/22 History Furosemide [Lasix] 40 mg PO DAILY #30 tablet 08/19/22 09/24/22 Rx Losartan [Cozaar] 25 mg PO DAILY 09/24/22 09/24/22 History Sulfamethox-Tmp 800-160Mg [Bactrim 1 tab PO BID 09/24/22 09/24/22 History DS 800-160 mg] Allergies Allergy/AdvReac Type Severity Reaction Status Date / Time No Known Allergies Allergy Verified 09/24/22 09:09 Physical Exam Vitals: Vital Signs Temp Pulse Pulse Resp BP BP Pulse Ox 09/25/22 08:00 97.6 F 62 16 133/74 98 09/25/22 04:00 97.6 F 60 17 146/69 99 09/24/22 23:32 98.1 F 71 16 113/71 98 09/24/22 20:00 98.0 F 69 18 158/74 97 09/24/22 18:41 98.2 F 60 17 163/66 98 09/24/22 16:41 65 18 136/71 97 09/24/22 12:00 97.6 F 61 20 162/96 98 Intake and Output 09/24/22 09/25/22 09/25/22 22:59 06:59 14:59 Intake Total 240 Output Total 0 Balance 240 0 Intake: Oral 240 Output: Urine 0 Stool 0 Urine/Stool Mix 0 Emesis 0 Other: Voiding Method Urinal Urinal # Voids 4 0 # Bowel Movements 0 Weight 98.43 kg Exam GENERAL: Sitting up in bed, alert and oriented 3, no acute distress HEENT: Pupils are round and equally reacting to light. EOMI. No scleral icterus. No conjunctival pallor. Normocephalic, atraumatic. Neck:supple, no JVD CARDIOVASCULAR: S1 and S2 present regular, No murmurs, rubs, or gallops. PULMONARY: Chest is clear to auscultation, no wheezing or crackles. ABDOMEN: Soft, nontender, nondistended, normoactive bowel sounds. No palpable organomegaly. EXTREMITIES: Mild lower extremity edema, no calf Tenderness, positive DP pulses. NEUROLOGICAL: Cranial nerves II through XII grossly intact, no focal deficits. SKIN: No rashes, warm and dry. Results CBC & Chem 7: 09/25/22 07:46 09/25/22 07:46 Labs: Abnormal Lab Results - Last 24 Hours (Table) 09/24/22 09/25/22 09/25/22 Range/Units 19:46 06:12 07:46 RBC (4.30-5.90) m/uL Hgb (13.0-17.5) gm/dL Hct (39.0-53.0) % MCHC (31.0-37.0) g/dL Plt Count (150-450) k/uL Lymphocytes # (1.0-4.8) k/uL Chloride 97 L (98-107) mmol/L Carbon Dioxide 34 H (22-30) mmol/L BUN 29 H (9-20) mg/dL Creatinine 1.69 H (0.66-1.25) mg/dL Glucose 138 H (74-99) mg/dL POC Glucose (mg/dL) 267 H 150 H (70-110) mg/dL 09/25/22 Range/Units 07:46 RBC 3.47 L (4.30-5.90) m/uL Hgb 9.7 L (13.0-17.5) gm/dL Hct 32.9 L (39.0-53.0) % MCHC 29.5 L (31.0-37.0) g/dL Plt Count 148 L (150-450) k/uL Lymphocytes # 0.6 L (1.0-4.8) k/uL Chloride (98-107) mmol/L Carbon Dioxide (22-30) mmol/L BUN (9-20) mg/dL Creatinine (0.66-1.25) mg/dL Glucose (74-99) mg/dL POC Glucose (mg/dL) (70-110) mg/dL Thrombosis Risk Factor Assmnt - Choose All That Apply Any of the Below Risk Factors Present?: Yes Each Factor Represents 1 point: Abnormal pulmonary function (COPD), Acute IA, Medical pt on bed rest, Obesity (BMI >25) Each Risk Factor Represents 3 Points: Age 75 years or older Thrombosis Risk Factor Assessment Total Risk Factor Score: 7 Thrombosis Risk Factor Assessment Level: High Risk Assessment and Plan Assessment: -Chest pain accompanied by nausea, initial troponin mildly elevated -Acute on chronic hypoxic respiratory failure, normally wears 3 L nasal cannula O2 at home -Acute renal failure, improving -Chronic kidney disease, stage III -Congestive heart failure chronic systolic dysfunction with acute exacerbation , EF 45-50% May 2022 -Hypertensive emergency -Coronary artery disease with CABG -History of permanent pacemaker implantation, secondary to syncope with second- degree AV block -Hypertension -Hyperlipidemia -Diabetes mellitus type 2 -History of UTI with ESBL E. coli -Benign prostatic hypertrophy -Former nicotine dependence -Subluxation at C4-5 appears new with some ligamentous instability, follow-up with orthopedic spine outpatient. Plan: Continue on current medication regime ,monitoring and symptomatic treatment. Anticoagulated on IV heparin. Echo pending, further workup as per cardiology pending. Maintain gentle IV fluid hydration. Close monitoring of renal function with repeat labs ordered for a.m. The impression and plan of care has been dictated as directed. : I performed a history and examination of this patient, discussed the same with the dictator. I agree with the dictator's note ,documented as a scribe. Any additional findings or plans will be noted.
[2022-09-25 16:16] LABS: Chol/HDL Ratio 3.93 Ratio; LDL Cholesterol,Calculated 77.5 mg/dL (0.0-131.0)
[2022-09-25 16:38] LABS: Glucose,Whole Blood 102 mg/dL (70-110)
[2022-09-25] MEDS ORDERED: HEPARIN SODIUM 1,000 UN/ML (10ML VL) IVP ONE (17:38)
[2022-09-25 19:58] LABS: Glucose,Whole Blood 142 mg/dL (70-110)
[2022-09-25] MEDS: TAMSULOSIN 0.4 MG CAP.ER.24H PO SCH (20:12)
[2022-09-26 05:58] LABS: Glucose,Whole Blood 133 mg/dL (70-110)
[2022-09-26] MEDS: INSULIN ASPART (NovoLOG) 100 UNIT/ML VIAL SQ SCH ×4 (06:16→20:28)
[2022-09-26] MEDS: HEPARIN SOD,PORK IN 0.45% NACL 25,000 UNIT in 0.45% NACL 1 250ML.BAG IV SCH (06:31)
[2022-09-26 07:34] LABS: Partial Thromboplastin Time 49.7 sec (22.0-30.0); Prothrombin Time 10.5 sec (9.0-12.0)
[2022-09-26 07:53] LABS: Basophils % (A) 1 %; Eosinophils # (A) 0.1 k/uL (0-0.7); Eosinophils % (A) 2 %; HCT 32.2 % (39.0-53.0); HGB 9.7 gm/dL (13.0-17.5); Hypochromasia Marked; Lymphocytes # (A) 0.5 k/uL (1.0-4.8); Lymphocytes % (A) 9 %; MCH 28.1 pg (25.0-35.0); MCV 93.9 fL (80.0-100.0); Mean Platelet Volume 8.9; Monocytes # (A) 0.3 k/uL (0-1.0); Monocytes % (A) 6 %; Neutrophils # (A) 4.7 k/uL (1.3-7.7); Neutrophils % (A) 81 %; Platelet Count 128 k/uL (150-450); RBC 3.43 m/uL (4.30-5.90); RDW 14.5 % (11.5-15.5); WBC 5.8 k/uL (3.8-10.6)
[2022-09-26 07:55] LABS: Calcium 8.4 mg/dL (8.4-10.2); Magnesium 1.9 mg/dL (1.6-2.3); Potassium 5.4 mmol/L (3.5-5.1)
[2022-09-26] MEDS: SERTRALINE 50 MG TAB PO SCH (09:14)
[2022-09-26] MEDS: ATORVASTATIN 20 MG TAB PO SCH (09:14)
[2022-09-26] MEDS: FERROUS SULFATE 325 MG TAB PO SCH (09:14)
[2022-09-26] MEDS: CLOPIDOGREL 75 MG TAB PO SCH (09:14)
[2022-09-26] MEDS: FUROSEMIDE 40 MG TAB PO SCH (09:14)
[2022-09-26] MEDS: GABAPENTIN 100 MG CAP PO SCH ×2 (09:14→20:49)
[2022-09-26] MEDS: ASCORBIC ACID 500 MG TAB PO SCH (09:14)
[2022-09-26] MEDS: LOSARTAN 25 MG TAB PO SCH (09:14)
[2022-09-26] MEDS: FINASTERIDE 5 MG TAB PO SCH (09:14)
[2022-09-26] MEDS: CHOLECALCIFEROL 125 MCG (5000 IU) TABLET PO SCH (09:14)
[2022-09-26] MEDS: METOPROLOL TARTRATE 12.5 MG TAB PO SCH ×2 (09:14→20:49)
--- NOTE | 2022-09-26 10:02 | CA ---
Transthoracic Echo Report Name: Cristo Perez Age: 77 Gender: M : 1945 Exam Date: 09/25/2022 09:33 Exam Location: [place] [facility] Ht (in): 67 Wt (lb): 217 Ordering Physician: Yanelis Hu Attending/Referring Phys: Alarm Adjuster Sherine Salgado, JAIRO Procedure CPT: Indications: LV function and eval wall motion Cardiac Hx: Echo done 05/22: limited echo for LV Function. Technical Quality: Contrast 1: Total Dose (mL): Contrast 2: Total Dose (mL): MEASUREMENTS (Male / Female) Normal Values DOPPLER AV Peak Velocity 160.3 cm/s AV Peak Gradient 10.3 mmHg TR Peak Velocity 306.5 cm/s TR Peak Gradient 37.6 mmHg Right Ventricular Systolic Press 52.6 mmHg FINDINGS Left Ventricle Left ventricular ejection fraction is estimated at 50-55%. Right Ventricle Right Atrium Left Atrium Mitral Valve Aortic Valve Tricuspid Valve Pulmonic Valve Pericardium Aorta CONCLUSIONS Ejection fraction 50% Inferior septal hypokinesis Previewed by: Dr. Yordan Chacon MD (Electronically Signed) Final Date: 26 September 2022 10:01
--- NOTE | 2022-09-26 10:39 | P.PN ---
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 He follows in the office with Dr. Harper. We have been asked to see in consultation for elevated troponin and chest pain. Patient is a poor historian. Patient presents emergency department with complaints of intermittent chest discomfort and worsening shortness of breath. He does state that for the past week he has been having chest discomfort and taking sublingual nitroglycerin every night for the past one week. He thinks that the nitro has improved his pain because he's able to sleep after this. He also endorses some worsening shortness of breath with activity as well. He denies any specific aggravating factors of the chest pain. He denies any palpitations, lightheadedness, dizziness, syncope or near syncope. He does have a cough. No known fevers or chills. He denies any symptoms of orthopnea or PND. 09/26 Patient seen and examined at bedside, no acute distress. He is very upset being in the hospital, hes frustrated wants to go home. He denies any further chest pain or shortness of breath. Blood pressure 169/70, heart rate 60. Echocardiogram revealed EF 50-55%, inferior septal hypokinesis reported. He's currently maintained on atorvastatin 20 mg daily, IV heparin, Lasix 40 mg daily, losartan 25 mg daily, metoprolol tartrate to 0.5 mg twice a day PHYSICAL EXAMINATION Vitals reviewed CONSTITUTIONAL: No apparent distress. HEENT: Head is normocephalic. Neck supple No JVD CHEST EXAMINATION: Lungs are clear to auscultation. No chest wall tenderness is noted on palpation or with deep breathing. HEART EXAMINATION: Regular rate and rhythm. S1, S2 heard. No murmurs, gallops or rub. ABDOMEN: Soft, nontender. Positive bowel sounds. EXTREMITIES: 2+ peripheral pulses, no lower extremity edema and no calf tenderness. NEUROLOGIC EXAMINATION: Patient is awake, alert and oriented x3. ASSESSMENT Chest discomfort with relief with nitro, concerning for possible unstable angina Acute kidney injury Mildly elevated troponin x 1, repeat troponin negative x 2 Coronary artery disease and status post CABG in 2018 where at that point he underwent CHAHAL to LAD and SVG to OM as well as SVG to RCA Type 2 diabetes Dyslipidemia Hypertension Former tobacco use Chronic kidney disease Congestive heart failure with preserved ejection fraction History of yncope with second degree AV block status post dual chamber pacemaker implantation 12/2020 PLAN 2D echocardiogram revealed preserved EF 50-55%, patient very adamant on being discharged and not proceeding with cardiac cath. At this time given patient's request and with abnormal renal function recommend medical therapy at this time Start Plavix 75mg daily Stop IV heparin, restart Xarelto and hold aspirin Continue statin Lasix PO, losartan and metoprolol Ok to discharge today from cardiology perspective, follow up outpatient with Dr. Harper in 1 week. Nurse practitioner note has been reviewed by physician. Signing provider agrees with the documented findings, assessment, and plan of care. Objective - Vital Signs Vital signs: Vital Signs Temp 97.6 F 09/26/22 03:56 Pulse 60 09/26/22 03:56 Resp 17 09/26/22 03:56 BP 169/70 09/26/22 03:56 Pulse Ox 99 09/26/22 03:56 FiO2 Intake & Output 09/25/22 09/26/22 09/26/22 18:59 06:59 18:59 Intake Total 73.833 145.621 0 Output Total 0 Balance 73.833 145.621 0 Intake: Intake, IV Titration 73.833 145.621 Amount Heparin Sod,Pork in 0.45% 73.833 145.621 NaCl 25,000 unit In 0.45 % NaCl 1 250ml.bag @ 10. 16 UNITS/KG/HR 10 mls/hr IV .Q24H REPLACED BY [facility] Rx#: [id number] Oral 0 0 Output: Urine 0 Stool 0 Urine/Stool Mix 0 Emesis 0 Other: Voiding Method Urinal # Voids 3 2 # Bowel Movements 0 - Labs CBC & Chem 7: 09/26/22 07:04 09/26/22 07:04 Labs: Abnormal Lab Results - Last 24 Hours (Table) 09/25/22 09/25/22 09/25/22 Range/Units 07:46 11:41 16:26 RBC (4.30-5.90) m/uL Hgb (13.0-17.5) gm/dL Hct (39.0-53.0) % MCHC (31.0-37.0) g/dL Plt Count (150-450) k/uL Lymphocytes # (1.0-4.8) k/uL APTT 38.5 H (22.0-30.0) sec Sodium (137-145) mmol/L Potassium (3.5-5.1) mmol/L BUN (9-20) mg/dL Creatinine (0.66-1.25) mg/dL Glucose (74-99) mg/dL POC Glucose (mg/dL) 255 H (70-110) mg/dL HDL Cholesterol 33.30 L (40.00-60.00) mg/dL 09/25/22 09/26/22 09/26/22 Range/Units 19:57 00:09 05:56 RBC (4.30-5.90) m/uL Hgb (13.0-17.5) gm/dL Hct (39.0-53.0) % MCHC (31.0-37.0) g/dL Plt Count (150-450) k/uL Lymphocytes # (1.0-4.8) k/uL APTT 76.1 H (22.0-30.0) sec Sodium (137-145) mmol/L Potassium (3.5-5.1) mmol/L BUN (9-20) mg/dL Creatinine (0.66-1.25) mg/dL Glucose (74-99) mg/dL POC Glucose (mg/dL) 142 H 133 H (70-110) mg/dL HDL Cholesterol (40.00-60.00) mg/dL 09/26/22 09/26/22 09/26/22 Range/Units 07:04 07:04 07:04 RBC 3.43 L (4.30-5.90) m/uL Hgb 9.7 L (13.0-17.5) gm/dL Hct 32.2 L (39.0-53.0) % MCHC 30.0 L (31.0-37.0) g/dL Plt Count 128 L (150-450) k/uL Lymphocytes # 0.5 L (1.0-4.8) k/uL APTT 49.7 H (22.0-30.0) sec Sodium 136 L (137-145) mmol/L Potassium 5.4 H (3.5-5.1) mmol/L BUN 25 H (9-20) mg/dL Creatinine 1.41 H (0.66-1.25) mg/dL Glucose 130 H (74-99) mg/dL POC Glucose (mg/dL) (70-110) mg/dL HDL Cholesterol (40.00-60.00) mg/dL
[2022-09-26 11:47] LABS: Glucose,Whole Blood 145 mg/dL (70-110)
--- NOTE | 2022-09-26 13:53 | XR ---
EXAMINATION TYPE: XR chest 1V portable DATE OF EXAM: 09/26/2022 Comparison: 09/24/2022 and 09/14/2021 Clinical History: 77-year-old male cough Findings: Median sternotomy plate and screw fixation and wires. We note right lateral offset of the superior mo st fixation plate, unchanged from prior. Heart is mildly enlarged. Mild interstitial prominence may b e largely chronic. Focal right basilar opacity persists. Left anterior chest wall pacemaker generator with right atrial and right ventricular leads. Impression: 1. Ongoing right basilar airspace disease, possible pneumonia. 2. Right lateral offset of the patient's superior most sternal fixation plate. This appears to be a c hronic finding. There may be some chronic sternal dehiscence. Clinically correlate.
--- NOTE | 2022-09-26 15:56 | P.PN ---
Subjective Progress Note Date: 09/26/22 H&P Date: 09/25/22 Chief Complaint: Nausea, chest pain This is a 77-year-old gentleman with past medical history of CAD, CABG, cardiac stents, pacemaker for second-degree heart block, paroxysmal atrial fibrillation anticoagulated on Xarelto ,presented to the ER with complaints of chest pain, nausea 1 day, had been taken nitroglycerin daily for a few days-vague historian. Denies emesis, some exertional shortness of breath, denies diaphoresis. Denies lightheadedness dizziness or focal deficits. Patient normally wears 3 L nasal cannula O2 at home currently requiring 4 L nasal cannula maintaining O2 sats in the high 90s. EKG reporting atrial paced, right bundle branch block, left anterior fascicular block, troponin 0.035, 0.034, 0.030. Cervical spine x-ray reporting hypertrophic bridging osteophyte formation, mild C4-5 retrolisthesis, no fractures, subluxation of C4-5 is new compared to prior computed tomography scan some ligamentous instability. Chest x-ray reporting chronic right middle lobe infiltrate and atelectasis not significantly different from prior exam, no CHF seen. Hemoglobin 9.7, platelets 148. ProBNP 2810. BUN 36/creatinine 2.02 on admission currently he 29/1.69. Sodium 137, potassium 5.1. Afebrile, normal WBC. 09/26/2022 evaluated by cardiology, echo cardiogram read reported EF 50%, inferior septal hypokinesis; maximizing medical therapy. Creatinine improving. Initially had planned for discharge, but patient developed multiple episodes of diarrhea, initiatially reported no bowel movement since admission. Denies nausea or vomiting. Denies chest pain, palpitations or increased shortness of breath. Continues to have productive cough with day sputum. Objective - Vital Signs Vital signs: Vital Signs Temp 97.6 F 09/26/22 03:56 Pulse 60 09/26/22 03:56 Resp 17 09/26/22 03:56 BP 169/70 09/26/22 03:56 Pulse Ox 99 09/26/22 03:56 FiO2 Intake & Output 09/25/22 09/26/22 09/26/22 18:59 06:59 18:59 Intake Total 73.833 145.621 180 Output Total 0 Balance 73.833 145.621 180 Intake: Intake, IV Titration 73.833 145.621 Amount Heparin Sod,Pork in 0.45% 73.833 145.621 NaCl 25,000 unit In 0.45 % NaCl 1 250ml.bag @ 10. 16 UNITS/KG/HR 10 mls/hr IV .Q24H [facility] Rx#: [id number] Oral 0 180 Output: Urine 0 Stool 0 Urine/Stool Mix 0 Emesis 0 Other: Voiding Method Urinal # Voids 3 2 # Bowel Movements 0 - Exam Exam GENERAL: Sitting up in bed, alert and oriented 3, no acute distress HEENT: Pupils are round and equally reacting to light. EOMI. No scleral icterus. No conjunctival pallor. Normocephalic, atraumatic. Neck:supple, no JVD CARDIOVASCULAR: S1 and S2 present regular, No murmurs, rubs, or gallops. PULMONARY: Chest is clear to auscultation, no wheezing or crackles. ABDOMEN: Soft, nontender, nondistended, normoactive bowel sounds. No palpable organomegaly. EXTREMITIES: Mild lower extremity edema, no calf Tenderness, positive DP pulses. NEUROLOGICAL: Cranial nerves II through XII grossly intact, no focal deficits. SKIN: No rashes, warm and dry. - Labs CBC & Chem 7: 09/26/22 07:04 09/26/22 07:04 Labs: Abnormal Lab Results - Last 24 Hours (Table) 09/25/22 09/25/22 09/25/22 Range/Units 07:46 16:26 19:57 RBC (4.30-5.90) m/uL Hgb (13.0-17.5) gm/dL Hct (39.0-53.0) % MCHC (31.0-37.0) g/dL Plt Count (150-450) k/uL Lymphocytes # (1.0-4.8) k/uL APTT 38.5 H (22.0-30.0) sec Sodium (137-145) mmol/L Potassium (3.5-5.1) mmol/L BUN (9-20) mg/dL Creatinine (0.66-1.25) mg/dL Glucose (74-99) mg/dL POC Glucose (mg/dL) 142 H (70-110) mg/dL HDL Cholesterol 33.30 L (40.00-60.00) mg/dL 09/26/22 09/26/22 09/26/22 Range/Units 00:09 05:56 07:04 RBC 3.43 L (4.30-5.90) m/uL Hgb 9.7 L (13.0-17.5) gm/dL Hct 32.2 L (39.0-53.0) % MCHC 30.0 L (31.0-37.0) g/dL Plt Count 128 L (150-450) k/uL Lymphocytes # 0.5 L (1.0-4.8) k/uL APTT 76.1 H (22.0-30.0) sec Sodium (137-145) mmol/L Potassium (3.5-5.1) mmol/L BUN (9-20) mg/dL Creatinine (0.66-1.25) mg/dL Glucose (74-99) mg/dL POC Glucose (mg/dL) 133 H (70-110) mg/dL HDL Cholesterol (40.00-60.00) mg/dL 09/26/22 09/26/22 09/26/22 Range/Units 07:04 07:04 11:45 RBC (4.30-5.90) m/uL Hgb (13.0-17.5) gm/dL Hct (39.0-53.0) % MCHC (31.0-37.0) g/dL Plt Count (150-450) k/uL Lymphocytes # (1.0-4.8) k/uL APTT 49.7 H (22.0-30.0) sec Sodium 136 L (137-145) mmol/L Potassium 5.4 H (3.5-5.1) mmol/L BUN 25 H (9-20) mg/dL Creatinine 1.41 H (0.66-1.25) mg/dL Glucose 130 H (74-99) mg/dL POC Glucose (mg/dL) 145 H (70-110) mg/dL HDL Cholesterol (40.00-60.00) mg/dL Assessment and Plan Assessment: -Chest pain accompanied by nausea, initial troponin mildly elevated. -Acute on chronic hypoxic respiratory failure, normally wears 3 L nasal cannula O2 at home. -Acute diarrhea, in a patient recently on antibiotics, ruling out C. difficile colitis -Acute renal failure, improving -Chronic kidney disease, stage III -Congestive heart failure chronic systolic dysfunction with acute exacerbation , EF 45-50% May 2022 -Hypertensive emergency -Coronary artery disease with CABG -History of permanent pacemaker implantation, secondary to syncope with second- degree AV block -Hypertension -Hyperlipidemia -Diabetes mellitus type 2 -History of UTI with ESBL E. coli -Benign prostatic hypertrophy -Former nicotine dependence -Subluxation at C4-5 appears new with some ligamentous instability, follow-up with orthopedic spine outpatient. Plan: Continue on current medication regime ,monitoring and symptomatic treatment. Hold discharge.Stool for C. difficile culture ordered. Gentle IV f luids ordered. Portable chest x-ray. Close monitoring of renal function with repeat labs ordered for a.m. The impression and plan of care has been dictated as directed. : I performed a history and examination of this patient, discussed the same with the dictator. I agree with the dictator's note ,documented as a scribe. Any additional findings or plans will be noted.
[2022-09-26 16:58] LABS: Glucose,Whole Blood 198 mg/dL (70-110)
[2022-09-26] MEDS: RIVAROXABAN 20 MG TAB PO SCH (17:37)
[2022-09-26] MEDS: SODIUM CHLORIDE 0.9% 1,000 ML IV SCH (17:39)
[2022-09-26 20:14] LABS: Glucose,Whole Blood 120 mg/dL (70-110)
[2022-09-26] MEDS: TAMSULOSIN 0.4 MG CAP.ER.24H PO SCH (20:49)
[2022-09-26] MEDS: HYDROcodone/APAP 5-325MG 1 EACH TAB PO PRN (20:50)
[2022-09-27 06:20] LABS: Glucose,Whole Blood 180 mg/dL (70-110)
[2022-09-27] MEDS: INSULIN ASPART (NovoLOG) 100 UNIT/ML VIAL SQ SCH ×4 (06:40→20:54)
[2022-09-27] MEDS ORDERED: IPRATROPIUM-ALBUTEROL 3 ML NEB INHALATION PRN (09:15)
[2022-09-27] MEDS: FERROUS SULFATE 325 MG TAB PO SCH (09:58)
[2022-09-27] MEDS: CHOLESTYRAMINE (WITH SUGAR) 4 GM PACKET PO SCH ×3 (09:58→17:03)
[2022-09-27] MEDS: FINASTERIDE 5 MG TAB PO SCH (09:58)
[2022-09-27] MEDS: SERTRALINE 50 MG TAB PO SCH (09:58)
[2022-09-27] MEDS: GABAPENTIN 100 MG CAP PO SCH ×2 (09:58→21:44)
[2022-09-27] MEDS: ASCORBIC ACID 500 MG TAB PO SCH (09:58)
[2022-09-27] MEDS: ATORVASTATIN 20 MG TAB PO SCH (09:58)
[2022-09-27] MEDS: CHOLECALCIFEROL 125 MCG (5000 IU) TABLET PO SCH (09:58)
[2022-09-27] MEDS: CLOPIDOGREL 75 MG TAB PO SCH (09:58)
[2022-09-27] MEDS: METOPROLOL TARTRATE 12.5 MG TAB PO SCH ×2 (09:58→21:44)
[2022-09-27] MEDS: FUROSEMIDE 40 MG TAB PO SCH (09:58)
--- NOTE | 2022-09-27 10:01 | US ---
EXAMINATION TYPE: US venous doppler duplex LE BI DATE OF EXAM: 09/27/2022 9:49 AM COMPARISON: NONE CLINICAL HISTORY: bilateral LE pain,new onset. Bilateral leg pain, poor historian SIDE PERFORMED: Bilateral TECHNIQUE: The lower extremity deep venous system is examined utilizing real time linear array sonog addy with graded compression, doppler sonography and color-flow sonography. VESSELS IMAGED: Common Femoral Vein Deep Femoral Vein Greater Saphenous Vein * Femoral Vein Popliteal Vein Small Saphenous Vein * Proximal Calf Veins (* superficial vessels) Limited exam due to pt body habitus, pt body position, and pt unable to tolerate probe pressure- on ly color flow visualized due to pt unable to tolerate compression Right Leg: EIV, CFV, DFV, and proximal femoral vein unable to be visualized- visualized portions martir w no evidence of DVT, probable Oglesby's Cyst right pop fossa= 6.7 x 1.5 x 3.3 cm Left Leg: EIV, CFV, DFV, and proximal femoral vein unable to be visualized- visualized portions show no evidence of DVT IMPRESSION: Limited study. No definite evidence for DVT.
[2022-09-27] MEDS: guaiFENesin 600 MG TABLET.ER PO SCH ×2 (10:18→21:44)
[2022-09-27] MEDS: LACTOBACILLUS ACIDOPH & BULGAR 1 EACH PACKET PO SCH (10:18)
[2022-09-27] MEDS: AZITHROMYCIN 500 MG in SODIUM CHLORIDE 0.9% 250 ML IVPB SCH (11:06)
[2022-09-27] MEDS: IPRATROPIUM-ALBUTEROL 3 ML NEB INHALATION SCH ×3 (11:31→20:09)
[2022-09-27] MEDS: LOSARTAN 25 MG TAB PO SCH (11:38)
[2022-09-27 11:53] LABS: Glucose,Whole Blood 198 mg/dL (70-110)
[2022-09-27 12:24] LABS: Calcium 8.3 mg/dL (8.4-10.2); Potassium 5.7 mmol/L (3.5-5.1)
[2022-09-27 12:32] LABS: Basophils % (A) 1 %; Eosinophils % (A) 0 %; HCT 30.6 % (39.0-53.0); HGB 8.9 gm/dL (13.0-17.5); Hypochromasia Marked; Lymphocytes # (A) 0.5 k/uL (1.0-4.8); Lymphocytes % (A) 9 %; MCH 28.2 pg (25.0-35.0); MCHC 29.2 g/dL (31.0-37.0); MCV 96.6 fL (80.0-100.0); Monocytes # (A) 0.2 k/uL (0-1.0); Monocytes % (A) 4 %; Neutrophils # (A) 4.7 k/uL (1.3-7.7); Neutrophils % (A) 84 %; Platelet Count 150 k/uL (150-450); RBC 3.17 m/uL (4.30-5.90); RDW 14.5 % (11.5-15.5); WBC 5.6 k/uL (3.8-10.6)
[2022-09-27] MEDS: SODIUM CHLORIDE 0.9% 1,000 ML IV SCH (13:05)
[2022-09-27 16:40] LABS: Glucose,Whole Blood 126 mg/dL (70-110)
[2022-09-27] MEDS: RIVAROXABAN 20 MG TAB PO SCH (17:03)
--- NOTE | 2022-09-27 17:05 | P.PN ---
Subjective Progress Note Date: 09/27/22 H&P Date: 09/25/22 Chief Complaint: Nausea, chest pain This is a 77-year-old gentleman with past medical history of CAD, CABG, cardiac stents, pacemaker for second-degree heart block, paroxysmal atrial fibrillation anticoagulated on Xarelto ,presented to the ER with complaints of chest pain, nausea 1 day, had been taken nitroglycerin daily for a few days-vague historian. Denies emesis, some exertional shortness of breath, denies diaphoresis. Denies lightheadedness dizziness or focal deficits. Patient normally wears 3 L nasal cannula O2 at home currently requiring 4 L nasal cannula maintaining O2 sats in the high 90s. EKG reporting atrial paced, right bundle branch block, left anterior fascicular block, troponin 0.035, 0.034, 0.030. Cervical spine x-ray reporting hypertrophic bridging osteophyte formation, mild C4-5 retrolisthesis, no fractures, subluxation of C4-5 is new compared to prior computed tomography scan some ligamentous instability. Chest x-ray reporting chronic right middle lobe infiltrate and atelectasis not significantly different from prior exam, no CHF seen. Hemoglobin 9.7, platelets 148. ProBNP 2810. BUN 36/creatinine 2.02 on admission currently he 29/1.69. Sodium 137, potassium 5.1. Afebrile, normal WBC. 09/26/2022 evaluated by cardiology, echo cardiogram read reported EF 50%, inferior septal hypokinesis; maximizing medical therapy. Creatinine improving. Initially had planned for discharge, but patient developed multiple episodes of diarrhea, initiatially reported no bowel movement since admission. Denies nausea or vomiting. Denies chest pain, palpitations or increased shortness of breath. Continues to have productive cough with day sputum. 09/27/2022 sitter at bedside, during the night patient had some mild confusion, pulling at lines and oxygen nasal cannula .follow-up chest x-ray reported ongoing right mid to basilar airspace disease, suspect mucus plugging; empiric antibiotics, Rocephin, Zithromax initiated. Afebrile, WBC has been normal-labs pending. Productive cough with tannish sputum reported. Maintaining O2 sats in the 90s on 4 L nasal cannula. Complains of bilateral lower tenderness around the knees, tendons and ligaments. Reports watery diarrhea. Negative for C. dif ficile colitis. Denies chest pain, palpitations or shortness of breath. Objective - Vital Signs Vital signs: Vital Signs Temp 98.2 F 09/27/22 16:00 Pulse 60 09/27/22 16:00 Resp 18 09/27/22 16:00 BP 131/58 09/27/22 16:00 Pulse Ox 96 09/27/22 16:00 FiO2 Intake & Output 09/26/22 09/27/22 09/27/22 18:59 06:59 18:59 Intake Total 180 Output Total 0 0 Balance 180 0 Intake: Oral 180 Output: Stool 0 0 Other: Voiding Method Urinal Urinal Urinal # Voids 1 1 # Bowel Movements 1 - Exam Exam GENERAL: Sitting up in bed, alert and oriented 3, no acute distress HEENT: Pupils are round and equally reacting to light. EOMI. No scleral icterus. No conjunctival pallor. Normocephalic, atraumatic. Neck:supple, no JVD CARDIOVASCULAR: S1 and S2 present regular, No murmurs, rubs, or gallops. PULMONARY: Unlabored, equal air entry, scattered rhonchi. ABDOMEN: Soft, nontender, nondistended, normoactive bowel sounds. No palpable organomegaly. EXTREMITIES: Mild lower extremity edema, bilateral lower tender calves -tendo ns/Ligaments of surrounding knees, positive DP pulses. NEUROLOGICAL: Cranial nerves II through XII grossly intact, no focal deficits. SKIN: No rashes, warm and dry. - Labs CBC & Chem 7: 09/27/22 11:34 09/27/22 11:34 Labs: Abnormal Lab Results - Last 24 Hours (Table) 09/26/22 09/26/22 09/27/22 Range/Units 16:57 20:05 06:19 RBC (4.30-5.90) m/uL Hgb (13.0-17.5) gm/dL Hct (39.0-53.0) % MCHC (31.0-37.0) g/dL Lymphocytes # (1.0-4.8) k/uL Potassium (3.5-5.1) mmol/L BUN (9-20) mg/dL Creatinine (0.66-1.25) mg/dL Glucose (74-99) mg/dL POC Glucose (mg/dL) 198 H 120 H 180 H (70-110) mg/dL Calcium (8.4-10.2) mg/dL 09/27/22 09/27/22 09/27/22 Range/Units 11:34 11:34 11:52 RBC 3.17 L (4.30-5.90) m/uL Hgb 8.9 L (13.0-17.5) gm/dL Hct 30.6 L (39.0-53.0) % MCHC 29.2 L (31.0-37.0) g/dL Lymphocytes # 0.5 L (1.0-4.8) k/uL Potassium 5.7 H (3.5-5.1) mmol/L BUN 30 H (9-20) mg/dL Creatinine 1.66 H (0.66-1.25) mg/dL Glucose 176 H (74-99) mg/dL POC Glucose (mg/dL) 198 H (70-110) mg/dL Calcium 8.3 L (8.4-10.2) mg/dL 09/27/22 Range/Units 16:38 RBC (4.30-5.90) m/uL Hgb (13.0-17.5) gm/dL Hct (39.0-53.0) % MCHC (31.0-37.0) g/dL Lymphocytes # (1.0-4.8) k/uL Potassium (3.5-5.1) mmol/L BUN (9-20) mg/dL Creatinine (0.66-1.25) mg/dL Glucose (74-99) mg/dL POC Glucose (mg/dL) 126 H (70-110) mg/dL Calcium (8.4-10.2) mg/dL Assessment and Plan Assessment: -Chest pain accompanied by nausea, initial troponin mildly elevated. -Acute on chronic hypoxic respiratory failure, normally wears 3 L nasal cannula O2 at home, suspect related to mucous plugging, doubtful pneumonia, pro- calcitonin ordered. -COPD -Acute bilateral lower extremity calves, tendons and ligaments of knees, ruling out DVTs, possible tendon,ligament strain. -Acute diarrhea, in a patient recently on antibiotics, negative for C. difficile colitis. -Acute renal failure, improving -Chronic kidney disease, stage III -Congestive heart failure chronic systolic dysfunction with acute exacerbation , EF 45-50% May 2022 -Hypertension -Coronary artery disease with CABG -History of permanent pacemaker implantation, secondary to syncope with second- degree AV block -Hyperlipidemia -Diabetes mellitus type 2 -History of UTI with ESBL E. coli -Benign prostatic hypertrophy -Former nicotine dependence -Subluxation at C4-5 appears new with some ligamentous instability, follow-up with orthopedic spine outpatient. Plan: Continue on current medication regime ,monitoring and symptomatic treatment. Labs pending.Close monitoring of renal function with repeat labs ordered for a.m. Bilateral lower extremity Dopplers to rule out DVTs. Aggressive pulmonary toileting with scheduled nebulized bronchodilators, Mucinex. Empiric antibiotics of ceftriaxone and Zithromax initiated, pro- calcitonin ordered. Patient advised to do foot pumps, PT/OT consulted. The impression and plan of care has been dictated as directed. : I performed a history and examination of this patient, discussed the same with the dictator. I agree with the dictator's note ,documented as a scribe. Any additional findings or plans will be noted.
[2022-09-27 20:16] LABS: Glucose,Whole Blood 137 mg/dL (70-110)
[2022-09-27] MEDS: HYDROcodone/APAP 5-325MG 1 EACH TAB PO PRN (21:44)
[2022-09-27] MEDS: TAMSULOSIN 0.4 MG CAP.ER.24H PO SCH (21:44)
[2022-09-28 06:10] LABS: Glucose,Whole Blood 130 mg/dL (70-110)
[2022-09-28] MEDS: INSULIN ASPART (NovoLOG) 100 UNIT/ML VIAL SQ SCH ×4 (06:10→21:01)
[2022-09-28] MEDS: SERTRALINE 50 MG TAB PO SCH (08:49)
[2022-09-28] MEDS: CLOPIDOGREL 75 MG TAB PO SCH (08:49)
[2022-09-28] MEDS: CHOLECALCIFEROL 125 MCG (5000 IU) TABLET PO SCH (08:49)
[2022-09-28] MEDS: FINASTERIDE 5 MG TAB PO SCH (08:49)
[2022-09-28] MEDS: ASCORBIC ACID 500 MG TAB PO SCH (08:49)
[2022-09-28] MEDS: guaiFENesin 600 MG TABLET.ER PO SCH ×3 (08:49→21:00)
[2022-09-28] MEDS: LACTOBACILLUS ACIDOPH & BULGAR 1 EACH PACKET PO SCH (08:49)
[2022-09-28] MEDS: ATORVASTATIN 20 MG TAB PO SCH (08:49)
[2022-09-28] MEDS: METOPROLOL TARTRATE 12.5 MG TAB PO SCH ×3 (08:49→21:00)
[2022-09-28] MEDS: FERROUS SULFATE 325 MG TAB PO SCH (08:49)
[2022-09-28] MEDS: GABAPENTIN 100 MG CAP PO SCH ×3 (08:49→21:00)
[2022-09-28] MEDS: CHOLESTYRAMINE (WITH SUGAR) 4 GM PACKET PO SCH ×3 (08:49→17:16)
[2022-09-28] MEDS: IPRATROPIUM-ALBUTEROL 3 ML NEB INHALATION SCH ×4 (08:58→20:23)
[2022-09-28] MEDS ORDERED: FUROSEMIDE 10 MG/ML 4 ML VIAL IV STA (10:13)
[2022-09-28] MEDS: SODIUM CHLORIDE 0.9% 1,000 ML IV SCH (12:10)
[2022-09-28] MEDS: AZITHROMYCIN 500 MG in SODIUM CHLORIDE 0.9% 250 ML IVPB SCH (12:11)
[2022-09-28 12:59] LABS: Calcium 8.5 mg/dL (8.4-10.2); Potassium 5.8 mmol/L (3.5-5.1)
--- NOTE | 2022-09-28 15:45 | P.PN ---
Subjective Progress Note Date: 09/28/22 77-year-old gentleman with past medical history of CAD, CABG, cardiac stents, pacemaker for second-degree heart block, paroxysmal atrial fibrillation anticoagulated on Xarelto ,presented to the ER with complaints of chest pain, nausea 1 day, had been taken nitroglycerin daily for a few days-vague histori an. Denies emesis, some exertional shortness of breath, denies diaphoresis. Denies lightheadedness dizziness or focal deficits. Patient normally wears 3 L nasal cannula O2 at home currently requiring 4 L nasal cannula maintaining O2 sats in the high 90s. EKG reporting atrial paced, right bundle branch block, left anterior fascicular block, troponin 0.035, 0.034, 0.030. Cervical spine x- ray reporting hypertrophic bridging osteophyte formation, mild C4-5 retrolisthesis, no fractures, subluxation of C4-5 is new compared to prior computed tomography scan some ligamentous instability. Chest x-ray reporting chronic right middle lobe infiltrate and atelectasis not significantly different from prior exam, no CHF seen. Hemoglobin 9.7, platelets 148. ProBNP 2810. BUN 36/creatinine 2.02 on admission currently he 29/1.69. Sodium 137, potassium 5.1. Afebrile, normal WBC. Objective - Vital Signs Vital signs: Vital Signs Temp 97.9 F 09/28/22 03:12 Pulse 64 09/28/22 09:08 Resp 18 09/28/22 03:12 BP 126/60 09/28/22 03:12 Pulse Ox 99 09/28/22 03:12 FiO2 Intake & Output 09/27/22 09/28/22 09/28/22 18:59 06:59 18:59 Intake Total 10 Output Total 0 Balance 0 10 Intake: IV 10 Invasive Line 4 10 Output: Stool 0 Other: Voiding Method Urinal Urinal # Voids 2 2 0 # Bowel Movements 1 - Exam GENERAL: Sitting up in bed, alert and oriented 3, no acute distress HEENT: Pupils are round and equally reacting to light. EOMI. No scleral icterus. No conjunctival pallor. Normocephalic, atraumatic. Neck:supple, no JVD CARDIOVASCULAR: S1 and S2 present regular, No murmurs, rubs, or gallops. PULMONARY: Unlabored, equal air entry, scattered rhonchi. ABDOMEN: Soft, nontender, nondistended, normoactive bowel sounds. No palpable organomegaly. EXTREMITIES: Mild lower extremity edema, bilateral lower tender calves - tendons/Ligaments of surrounding knees, positive DP pulses. NEUROLOGICAL: Cranial nerves II through XII grossly intact, no focal deficits. SKIN: No rashes, warm and dry. - Labs CBC & Chem 7: 09/27/22 11:34 09/28/22 11:56 Labs: Abnormal Lab Results - Last 24 Hours (Table) 09/27/22 09/27/22 09/27/22 Range/Units 11:34 11:34 11:35 RBC 3.17 L (4.30-5.90) m/uL Hgb 8.9 L (13.0-17.5) gm/dL Hct 30.6 L (39.0-53.0) % MCHC 29.2 L (31.0-37.0) g/dL Lymphocytes # 0.5 L (1.0-4.8) k/uL Potassium 5.7 H (3.5-5.1) mmol/L BUN 30 H (9-20) mg/dL Creatinine 1.66 H (0.66-1.25) mg/dL Glucose 176 H (74-99) mg/dL POC Glucose (mg/dL) (70-110) mg/dL Calcium 8.3 L (8.4-10.2) mg/dL Procalcitonin 0.15 H (0.02-0.09) ng/mL 09/27/22 09/27/22 09/27/22 Range/Units 11:52 16:38 20:14 RBC (4.30-5.90) m/uL Hgb (13.0-17.5) gm/dL Hct (39.0-53.0) % MCHC (31.0-37.0) g/dL Lymphocytes # (1.0-4.8) k/uL Potassium (3.5-5.1) mmol/L BUN (9-20) mg/dL Creatinine (0.66-1.25) mg/dL Glucose (74-99) mg/dL POC Glucose (mg/dL) 198 H 126 H 137 H (70-110) mg/dL Calcium (8.4-10.2) mg/dL Procalcitonin (0.02-0.09) ng/mL 09/28/22 Range/Units 06:08 RBC (4.30-5.90) m/uL Hgb (13.0-17.5) gm/dL Hct (39.0-53.0) % MCHC (31.0-37.0) g/dL Lymphocytes # (1.0-4.8) k/uL Potassium (3.5-5.1) mmol/L BUN (9-20) mg/dL Creatinine (0.66-1.25) mg/dL Glucose (74-99) mg/dL POC Glucose (mg/dL) 130 H (70-110) mg/dL Calcium (8.4-10.2) mg/dL Procalcitonin (0.02-0.09) ng/mL Assessment and Plan Assessment: -Chest pain accompanied by nausea, initial troponin mildly elevated. -Acute on chronic hypoxic respiratory failure, normally wears 3 L nasal cannula O2 at home, suspect related to mucous plugging, doubtful pneumonia, pro- calcitonin ordered. -COPD -Acute bilateral lower extremity calves, tendons and ligaments of knees, ruling out DVTs, possible tendon,ligament strain. -Acute diarrhea, in a patient recently on antibiotics, negative for C. difficile colitis. -Acute renal failure, improving -Chronic kidney disease, stage III -Congestive heart failure chronic systolic dysfunction with acute exacerbation , EF 45-50% May 2022 -Hypertension -Coronary artery disease with CABG -History of permanent pacemaker implantation, secondary to syncope with second- degree AV block -Hyperlipidemia -Diabetes mellitus type 2 -History of UTI with ESBL E. coli -Benign prostatic hypertrophy -Former nicotine dependence -Subluxation at C4-5 appears new with some ligamentous instability, follow-up with orthopedic spine outpatient. Plan: Continue on current medication regime ,monitoring and symptomatic treatment. Labs pending.Close monitoring of renal function with repeat labs ordered for a.m. Bilateral lower extremity Dopplers to rule out DVTs. Aggressive pulmonary toileting with scheduled nebulized bronchodilators, Mucinex. Empiric antibiotics of ceftriaxone and Zithromax initiated, pro- calcitonin ordered. Patient advised to do foot pumps, PT/OT consulted.
[2022-09-28 17:07] LABS: Glucose,Whole Blood 175 mg/dL (70-110)
[2022-09-28] MEDS: RIVAROXABAN 20 MG TAB PO SCH (17:16)
[2022-09-28 20:03] LABS: Glucose,Whole Blood 160 mg/dL (70-110)
[2022-09-28] MEDS: HYDROcodone/APAP 5-325MG 1 EACH TAB PO PRN ×2 (20:57→22:07)
[2022-09-28] MEDS: TAMSULOSIN 0.4 MG CAP.ER.24H PO SCH ×2 (20:57→21:00)
[2022-09-29] MEDS ORDERED: LIDOCAINE 2% URO-JET JELLY 5 ML KIT URETHRAL ONE (01:45)
[2022-09-29] MEDS: HYDROcodone/APAP 5-325MG 1 EACH TAB PO PRN ×3 (01:49→09:18)
[2022-09-29] MEDS: SODIUM CHLORIDE 0.9% 1,000 ML IV SCH (05:18)
[2022-09-29 06:24] LABS: Glucose,Whole Blood 138 mg/dL (70-110)
[2022-09-29] MEDS: INSULIN ASPART (NovoLOG) 100 UNIT/ML VIAL SQ SCH ×2 (06:33→12:40)
[2022-09-29 06:58] LABS: Calcium 8.6 mg/dL (8.4-10.2); Potassium 5.4 mmol/L (3.5-5.1)
[2022-09-29] MEDS: IPRATROPIUM-ALBUTEROL 3 ML NEB INHALATION SCH ×2 (07:54→11:04)
[2022-09-29] MEDS ORDERED: SODIUM BICARB 8.4% 50 ML SYR (1 MEQ/ML) ONE (09:00)
[2022-09-29] MEDS ORDERED: EPINEPHrine 10 ML SYRINGE (0.1 MG/ML) ONE (09:00)
[2022-09-29 09:09] VITALS: TEMP 97.6
[2022-09-29] MEDS: GABAPENTIN 100 MG CAP PO SCH (09:09)
[2022-09-29] MEDS: guaiFENesin 600 MG TABLET.ER PO SCH (09:09)
[2022-09-29] MEDS: LACTOBACILLUS ACIDOPH & BULGAR 1 EACH PACKET PO SCH (09:09)
[2022-09-29] MEDS: CHOLESTYRAMINE (WITH SUGAR) 4 GM PACKET PO SCH (09:09)
[2022-09-29] MEDS: ASCORBIC ACID 500 MG TAB PO SCH (09:10)
[2022-09-29] MEDS: AZITHROMYCIN 500 MG in SODIUM CHLORIDE 0.9% 250 ML IVPB SCH (09:10)
[2022-09-29] MEDS: CHOLECALCIFEROL 125 MCG (5000 IU) TABLET PO SCH (09:10)
[2022-09-29] MEDS: FINASTERIDE 5 MG TAB PO SCH (09:10)
[2022-09-29] MEDS: SERTRALINE 50 MG TAB PO SCH (09:10)
[2022-09-29] MEDS: METOPROLOL TARTRATE 12.5 MG TAB PO SCH (09:10)
[2022-09-29] MEDS: ATORVASTATIN 20 MG TAB PO SCH (09:10)
[2022-09-29] MEDS: FERROUS SULFATE 325 MG TAB PO SCH (09:10)
[2022-09-29] MEDS: CLOPIDOGREL 75 MG TAB PO SCH (09:10)
[2022-09-29 09:38] LABS: Glucose,Whole Blood 191 mg/dL (70-110)
[2022-09-29] MEDS ORDERED: propofoL 100 ML IV ONE (09:46)
[2022-09-29 10:07] LABS: Glucose,Whole Blood 245 mg/dL (70-110)
[2022-09-29] MEDS ORDERED: NALOXONE 0.4 MG/ML 1 ML VIAL IV PRN (10:22)
[2022-09-29] MEDS ORDERED: PANTOPRAZOLE 40 MG/10 ML VIAL IV SCH (10:30)
--- NOTE | 2022-09-29 10:32 | XR ---
EXAMINATION TYPE: XR chest 1V portable DATE OF EXAM: 09/29/2022 COMPARISON: 09/26/2022 INDICATION: Intubation, nasogastric tube placement TECHNIQUE: Single frontal view of the chest is obtained. FINDINGS: The heart size is mildly prominent. The pulmonary vasculature is normal. Mild perihilar infiltrate is present on the left which is developing. A right pleural effusion appear s to remain present. There is placement of an endotracheal tube 4.4 cm above the felicita. Nasogastric tube placement with t he tip in the proximal left upper quadrant of the abdomen. Pacemaker overlies left chest. IMPRESSION: 1. Mild increasing left perihilar infiltrate. 2. Small to moderate right pleural effusion. 3. Lines and catheters discussed above.
[2022-09-29 10:49] LABS: ABG Base Excess 1.1 mmol/L; ABG HCO3 28 mmol/L (21-25); ABG Oxygen Saturation 92.1 % (94-97); ABG PCO2 61 mmHg (35-45); ABG PH 7.27 (7.35-7.45); ABG PO2 64 mmHg (83-108); ABG TCO2 30 mmol/L (19-24); Allen Test Performed? Yes
[2022-09-29 11:05] LABS: Albumin 3.7 g/dL (3.5-5.0); Calcium 8.6 mg/dL (8.4-10.2); Magnesium 2.1 mg/dL (1.6-2.3); Potassium 5.7 mmol/L (3.5-5.1); Total Bilirubin 0.7 mg/dL (0.2-1.3); Total Protein 6.2 g/dL (6.3-8.2)
[2022-09-29 11:06] LABS: Basophils % (A) 1 %; Eosinophils % (A) 1 %; HCT 33.9 % (39.0-53.0); HGB 10.1 gm/dL (13.0-17.5); Hypochromasia Marked; Lymphocytes # (A) 0.2 k/uL (1.0-4.8); Lymphocytes % (A) 3 %; MCH 28.6 pg (25.0-35.0); MCHC 29.7 g/dL (31.0-37.0); MCV 96.3 fL (80.0-100.0); Mean Platelet Volume 8.8; Monocytes # (A) 0.1 k/uL (0-1.0); Monocytes % (A) 2 %; Neutrophils # (A) 5.8 k/uL (1.3-7.7); Neutrophils % (A) 94 %; Platelet Count 147 k/uL (150-450); RBC 3.52 m/uL (4.30-5.90); RDW 14.8 % (11.5-15.5); WBC 6.2 k/uL (3.8-10.6)
[2022-09-29] MEDS ORDERED: MORPHINE SULFATE 4 MG/ML SYRINGE IV PRN (11:38)
[2022-09-29] MEDS ORDERED: SCOPOLAMINE 1 MG/72 HR PATCH TRANSDERM SCH (11:45)
[2022-09-29 12:11] VITALS: BP 148/73
[2022-09-29] MEDS: MORPHINE SULFATE (100 MG/2 ML) 100 MG in SODIUM CHLORIDE 0.9% 100 ML IV SCH ×2 (12:22→13:53)
--- NOTE | 2022-09-29 12:23 | P.PN ---
Progress Note - Text Progress Note Date: 09/29/22 CODE BLUE note Activated at 9:25AM. I arrived at the scene shortly after. Apparently nursing r eported that patient went unresponsive. He subsequently developed PEA for which ACLS protocol was immediately initiated. Monitor showed paced rhythm. Epinephrine IV push 2 and sodium bicarbonate IV push 1 were administered. ROSC was achieved at 9:35AM. Patient was intubated and transferred to MICU. Please refer to the code sheet for further details. Total time spent providing critical care for this patient: 25 minutes
--- NOTE | 2022-09-29 12:28 | P.CNPUL ---
History of Present Illness Consult date: 09/29/22 Requesting physician: Nhan Adam Reason for consult: other Chief complaint: Cardiopulmonary arrest. History of present illness: Pulmonary/critical care consult dated 09/29/2022. This is a 77-year-old male with a history of previous bypass grafting, 2017, coronary disease with stents, pacemaker insertion 2020, COPD, hypertension, prostate cancer, right nephrectomy, and confusion. The patient was admitted on September 24, with complaints of chest pain and shortness of breath. Apparently, he was seen by cardiology, and they recommended a cardiac catheterization, but the patient refuses. Cardiology signed off the case. It appears that he was admitted with a diagnosis of non-ST segment elevation myocardial infarction, with some congestive heart failure. Anyway, today, he sustained a cardiopulmonary arrest. The circumstances leading up to the rest are unclear. The patient underwent cardiopulmonary resuscitation for about 5-7 minutes, CO2 rounds of epinephrine, 1 ampule of sodium bicarbonate, without any cardioversion or defibrillation, and did have return of spontaneous circulation. He was intubated by the DYNAMO REPAIRER, during the code. He was transferred up to the intensive care unit. He is on volume assist control, rate 20, tidal volume 450, FiO2 100%, and PEEP of 5. Initial blood gases show pO2 of 64, pCO2 61, and a pH is 7.27. The patient has 2 peripheral IVs. The patient is being sedated with propofol at 50 mcg/kg/m. The nurse is Nate. In addition to the blood gases mentioned, the patient's white count was 6.2, hemoglobin 10.1, hematocrit 34, and a platelet count of 147,000. Sodium 135, potassium 5.7, chlorides 98, CO2 22, anion gap 15, BUN 41, and creatinine 1.51. Glucose 216. Lactic acid 3.7. Chest x-ray following intubation shows 8 endotracheal tube 4-1/2 cm above the tracheal felicita, mild increasing left perihilar infiltrate, and a small to moder ate right-sided pleural effusion. When I went to go salmon the patient, the family was in the room. The patient apparently did not want to be resuscitated. I talked about withdrawal of life support, and making the patient comfortable. They all agreed that that's what the patient would want. Review of Systems REVIEW OF SYSTEMS: Review of systems cannot be obtained, as the patient's currently sedated and on the mechanical ventilator. He initially came into the hospital with complaints of chest pain and shortness of breath. CONSTITUTIONAL: [Negative.] NEUROLOGIC: [ Negative.] HEENT: [ Negative.] CARDIAC: [Negative.] PULMONARY: [Negative.] GI: [Negative.] : [Negative.] RHEUMATOLOGIC: [ Negative.] IMMUNOLOGIC: [ Negative.] ENDOCRINE: [Negative. ] DERMATOLOGIC: [Negative.] Past Medical History Past Medical History: Coronary Artery Disease (CAD), Cancer, COPD, Diabetes Mellitus, Hyperlipidemia, Hypertension, Myocardial Infarction (SD), Prostate Disorder Additional Past Medical History / Comment(s): prostate cancer with radiation > 20 years ago, nstemi, wears a brief incont urine/stool Last Myocardial Infarction Date:: 2017 History of Any Multi-Drug Resistant Organisms: ESBL, MRSA Date of last positivie culture/infection: Pt states he is unsure MDRO Source:: Unknown Past Surgical History: Coronary Bypass/CABG Additional Past Surgical History / Comment(s): 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,prostate bx, triple bypass 2017, bronchoscopy Past Anesthesia/Blood Transfusion Reactions: No Reported Reaction Type of Cardiac Device: Permanent Pacemaker Device Placement Date:: 12/08/20 Past Psychological History: No Psychological Hx Reported Additional Psychological History / Comment(s): Pt states he lives at home with son. Smoking Status: Former smoker Past Alcohol Use History: None Reported Additional Past Alcohol Use History / Comment(s): Pt started smoking as a teen and was a 3 ppd smoker but quit in 1990. Pt states he used to drink alcohol "years ago" Past Drug Use History: None Reported Additional Drug Use History / Comment(s): Used to use alcohol regularely. States he goes to AA meetings. - Past Family History Father Family Medical History: Diabetes Mellitus Additional Family Medical History / Comment(s): Pt states mother had diabetes Mother Family Medical History: Coronary Artery Disease (CAD), Diabetes Mellitus Additional Family Medical History / Comment(s): CABG Medications and Allergies Home Medications Medication Instructions Recorded Confirmed Type Atorvastatin [Lipitor] 20 mg PO DAILY 01/07/19 09/24/22 History Finasteride [Proscar] 5 mg PO DAILY 01/07/19 09/24/22 History Sertraline HCl [Zoloft] 50 mg PO DAILY 02/05/19 09/24/22 History Tamsulosin [Flomax] 0.4 mg PO HS 07/06/19 09/24/22 History Ferrous Sulfate [Feosol] 325 mg PO DAILY 07/27/20 09/24/22 History Gabapentin [Neurontin] 100 mg PO BID 12/06/20 09/24/22 History Nitroglycerin Sl Tabs [Nitrostat] 0.4 mg SL Q5M PRN 02/19/21 09/24/22 History Ascorbic Acid [Vitamin C] 500 mg PO DAILY 09/14/21 09/24/22 History Cholecalciferol (Vitamin D3) 125 mcg PO DAILY 09/14/21 09/24/22 History [Vitamin D3 (125 MCG = 5,000 IU)] Insulin Glargine,Hum.rec.anlog 30 unit SQ HS 09/14/21 09/24/22 History [Lantus Solostar Pen] Albuterol Inhaler [Ventolin Hfa 2 puff INHALATION RT-Q6H PRN 04/29/22 09/24/22 History Inhaler] Rivaroxaban [Xarelto] 20 mg PO DAILY 04/29/22 09/24/22 History Calcium Carbonate [Tums] 1,000 mg PO QID PRN tab 05/10/22 09/24/22 Rx Ipratropium-Albuterol Nebulize 3 ml INHALATION RT-QID PRN 07/14/22 09/24/22 History [Duoneb 0.5 mg-3 mg/3 ml Soln] Metoprolol Tartrate [Lopressor] 12.5 mg PO BID 07/14/22 09/24/22 History Acetaminophen Tab [Tylenol] 650 mg PO Q6H PRN 08/17/22 09/24/22 History Furosemide [Lasix] 40 mg PO DAILY #30 tablet 08/19/22 09/24/22 Rx Losartan [Cozaar] 25 mg PO DAILY 09/24/22 09/24/22 History Clopidogrel [Plavix] 75 mg PO DAILY #30 tab 09/26/22 Rx Omeprazole [PriLOSEC] 20 mg PO AC-BRKFST #30 cap 09/26/22 Rx Allergies Allergy/AdvReac Type Severity Reaction Status Date / Time No Known Allergies Allergy Verified 09/24/22 09:09 Physical Exam Osteopathic Statement: *. No significant issues noted on an osteopathic structural exam other than those noted in the History and Physical/Consult. Vitals: Vital Signs Temp Pulse Pulse Resp BP BP Pulse Ox 09/29/22 12:00 63 20 98 09/29/22 11:30 73 10 L 97 09/29/22 11:17 80 09/29/22 11:04 80 09/29/22 11:00 80 12 148/73 95 09/29/22 10:53 09/29/22 10:30 70 11 L 126/66 66 L 09/29/22 10:27 09/29/22 10:05 67 2 L 138/70 09/29/22 09:45 09/29/22 08:00 97.6 F 96 18 169/72 93 L 09/29/22 04:00 98.4 F 63 20 168/69 93 L 09/28/22 23:48 98.0 F 64 19 166/72 95 09/28/22 20:00 98.3 F 64 18 134/67 93 L 09/28/22 16:00 60 18 149/66 95 09/28/22 14:00 18 09/28/22 12:21 64 FiO2 09/29/22 12:00 09/29/22 11:30 09/29/22 11:17 09/29/22 11:04 09/29/22 11:00 09/29/22 10:53 100 09/29/22 10:30 09/29/22 10:27 100 09/29/22 10:05 09/29/22 09:45 100 09/29/22 08:00 09/29/22 04:00 09/28/22 23:48 09/28/22 20:00 09/28/22 16:00 09/28/22 14:00 09/28/22 12:21 Intake and Output 09/28/22 09/29/22 09/29/22 22:59 06:59 14:59 Intake Total 8.121 Output Total 400 0 Balance -400 8.121 Intake: Intake, IV Titration 8.121 Amount propofoL 1,000 mg In 8.121 Empty Bag 1 bag @ 15 MCG/ KG/MIN 8.859 mls/hr IV . [id number] [facility] Rx#:[id number] Output: Urine 400 0 Other: Voiding Method Urinal Urinal Diaper Diaper # Voids 3 2 # Bowel Movements 1 No acute distress, sedated, with an orally placed endotracheal tube and NG tube. HEENT examination is grossly unremarkable. Neck supple. Full range of motion. No adenopathy thyromegaly or neck vein distention. Cardiovascular examination reveals regular rhythm rate. S1-S2 normal. No S3 or S4. No discernible murmur noted. Heart sounds are very distant. Heart rate 63 bpm. Lungs reveal scattered bilateral rhonchi. No wheezes or crackles. Breath sounds equal bilaterally. Saturations are in the mid 90s. Abdomen obese, without any bowel sounds. No masses. Extremities are intact. No cyanosis or clubbing. Minimal edema at best. Skin is without rash or lesion. Neurologic examination cannot be adequately assessed as the patient's on the ventilator, and sedated. Results - Laboratory Findings CBC and BMP: 09/29/22 10:44 09/29/22 10:44 ABG ABG pH 7.27 (7.35-7.45) L 09/29/22 10:47 ABG pCO2 61 mmHg (35-45) H 09/29/22 10:47 ABG pO2 64 mmHg (83-108) L 09/29/22 10:47 ABG O2 Saturation 92.1 % (94-97) L 09/29/22 10:47 PT/INR, D-dimer PT 10.5 sec (9.0-12.0) 09/26/22 07:04 INR 1.0 (<1.2) 09/26/22 07:04 Abnormal lab findings: Abnormal Labs 09/24/22 09/24/22 09/24/22 05:35 05:35 05:35 RBC 3.25 L Hgb 9.2 L Hct 29.9 L MCHC 30.9 L Plt Count 136 L Lymphocytes # 0.7 L APTT ABG pH ABG pCO2 ABG pO2 ABG HCO3 ABG Total CO2 ABG O2 Saturation Sodium 135 L Potassium Chloride 96 L Carbon Dioxide 32 H BUN 36 H Creatinine 2.02 H Glucose 132 H POC Glucose (mg/dL) Plasma Lactic Acid Chauncey Calcium Troponin I 0.035 H* Total Protein 5.7 L Albumin 3.4 L HDL Cholesterol Procalcitonin 09/24/22 09/25/22 09/25/22 19:46 06:12 07:46 RBC Hgb Hct MCHC Plt Count Lymphocytes # APTT ABG pH ABG pCO2 ABG pO2 ABG HCO3 ABG Total CO2 ABG O2 Saturation Sodium Potassium Chloride 97 L Carbon Dioxide 34 H BUN 29 H Creatinine 1.69 H Glucose 138 H POC Glucose (mg/dL) 267 H 150 H Plasma Lactic Acid Chauncey Calcium Troponin I Total Protein Albumin HDL Cholesterol 33.30 L Procalcitonin 09/25/22 09/25/22 09/25/22 07:46 11:41 16:26 RBC 3.47 L Hgb 9.7 L Hct 32.9 L MCHC 29.5 L Plt Count 148 L Lymphocytes # 0.6 L APTT 38.5 H ABG pH ABG pCO2 ABG pO2 ABG HCO3 ABG Total CO2 ABG O2 Saturation Sodium Potassium Chloride Carbon Dioxide BUN Creatinine Glucose POC Glucose (mg/dL) 255 H Plasma Lactic Acid Chauncey Calcium Troponin I Total Protein Albumin HDL Cholesterol Procalcitonin 09/25/22 09/26/22 09/26/22 19:57 00:09 05:56 RBC Hgb Hct MCHC Plt Count Lymphocytes # APTT 76.1 H ABG pH ABG pCO2 ABG pO2 ABG HCO3 ABG Total CO2 ABG O2 Saturation Sodium Potassium Chloride Carbon Dioxide BUN Creatinine Glucose POC Glucose (mg/dL) 142 H 133 H Plasma Lactic Acid Chauncey Calcium Troponin I Total Protein Albumin HDL Cholesterol Procalcitonin 09/26/22 09/26/22 09/26/22 07:04 07:04 07:04 RBC 3.43 L Hgb 9.7 L Hct 32.2 L MCHC 30.0 L Plt Count 128 L Lymphocytes # 0.5 L APTT 49.7 H ABG pH ABG pCO2 ABG pO2 ABG HCO3 ABG Total CO2 ABG O2 Saturation Sodium 136 L Potassium 5.4 H Chloride Carbon Dioxide BUN 25 H Creatinine 1.41 H Glucose 130 H POC Glucose (mg/dL) Plasma Lactic Acid Chauncey Calcium Troponin I Total Protein Albumin HDL Cholesterol Procalcitonin 09/26/22 09/26/22 09/26/22 11:45 16:57 20:05 RBC Hgb Hct MCHC Plt Count Lymphocytes # APTT ABG pH ABG pCO2 ABG pO2 ABG HCO3 ABG Total CO2 ABG O2 Saturation Sodium Potassium Chloride Carbon Dioxide BUN Creatinine Glucose POC Glucose (mg/dL) 145 H 198 H 120 H Plasma Lactic Acid Chauncey Calcium Troponin I Total Protein Albumin HDL Cholesterol Procalcitonin 09/27/22 09/27/22 09/27/22 06:19 11:34 11:34 RBC 3.17 L Hgb 8.9 L Hct 30.6 L MCHC 29.2 L Plt Count Lymphocytes # 0.5 L APTT ABG pH ABG pCO2 ABG pO2 ABG HCO3 ABG Total CO2 ABG O2 Saturation Sodium Potassium 5.7 H Chloride Carbon Dioxide BUN 30 H Creatinine 1.66 H Glucose 176 H POC Glucose (mg/dL) 180 H Plasma Lactic Acid Chauncey Calcium 8.3 L Troponin I Total Protein Albumin HDL Cholesterol Procalcitonin 09/27/22 09/27/22 09/27/22 11:35 11:52 16:38 RBC Hgb Hct MCHC Plt Count Lymphocytes # APTT ABG pH ABG pCO2 ABG pO2 ABG HCO3 ABG Total CO2 ABG O2 Saturation Sodium Potassium Chloride Carbon Dioxide BUN Creatinine Glucose POC Glucose (mg/dL) 198 H 126 H Plasma Lactic Acid Chauncey Calcium Troponin I Total Protein Albumin HDL Cholesterol Procalcitonin 0.15 H 09/27/22 09/28/22 09/28/22 20:14 06:08 11:56 RBC Hgb Hct MCHC Plt Count Lymphocytes # APTT ABG pH ABG pCO2 ABG pO2 ABG HCO3 ABG Total CO2 ABG O2 Saturation Sodium 136 L Potassium 5.8 H Chloride Carbon Dioxide BUN 39 H Creatinine 1.81 H Glucose 133 H POC Glucose (mg/dL) 137 H 130 H Plasma Lactic Acid Chauncey Calcium Troponin I Total Protein Albumin HDL Cholesterol Procalcitonin 09/28/22 09/28/22 09/29/22 17:04 20:01 05:32 RBC Hgb Hct MCHC Plt Count Lymphocytes # APTT ABG pH ABG pCO2 ABG pO2 ABG HCO3 ABG Total CO2 ABG O2 Saturation Sodium 135 L Potassium 5.4 H Chloride Carbon Dioxide BUN 40 H Creatinine 1.56 H Glucose 128 H POC Glucose (mg/dL) 175 H 160 H Plasma Lactic Acid Chauncey Calcium Troponin I Total Protein Albumin HDL Cholesterol Procalcitonin 09/29/22 09/29/22 09/29/22 06:22 09:27 10:07 RBC Hgb Hct MCHC Plt Count Lymphocytes # APTT ABG pH ABG pCO2 ABG pO2 ABG HCO3 ABG Total CO2 ABG O2 Saturation Sodium Potassium Chloride Carbon Dioxide BUN Creatinine Glucose POC Glucose (mg/dL) 138 H 191 H 245 H Plasma Lactic Acid Chauncey Calcium Troponin I Total Protein Albumin HDL Cholesterol Procalcitonin 09/29/22 09/29/22 09/29/22 10:44 10:44 10:44 RBC 3.52 L Hgb 10.1 L Hct 33.9 L MCHC 29.7 L Plt Count 147 L Lymphocytes # 0.2 L APTT ABG pH ABG pCO2 ABG pO2 ABG HCO3 ABG Total CO2 ABG O2 Saturation Sodium 135 L Potassium 5.7 H Chloride Carbon Dioxide BUN 41 H Creatinine 1.51 H Glucose 216 H POC Glucose (mg/dL) Plasma Lactic Acid Chauncey 3.7 H* Calcium Troponin I Total Protein 6.2 L Albumin HDL Cholesterol Procalcitonin 09/29/22 10:47 RBC Hgb Hct MCHC Plt Count Lymphocytes # APTT ABG pH 7.27 L ABG pCO2 61 H ABG pO2 64 L ABG HCO3 28 H ABG Total CO2 30 H ABG O2 Saturation 92.1 L Sodium Potassium Chloride Carbon Dioxide BUN Creatinine Glucose POC Glucose (mg/dL) Plasma Lactic Acid Chauncey Calcium Troponin I Total Protein Albumin HDL Cholesterol Procalcitonin - Diagnostic Findings Chest x-ray: image reviewed Assessment and Plan Assessment: Status post cardiopulmonary arrest, with cardiopulmonary resuscitation and re turn of spontaneous circulation. Post cardiac arrest, intubation, and mechanical ventilation. History of CAD with previous stenting, and bypass grafting, 2017. History of pacemaker insertion, 2020. History of COPD. History of hypertension. History of prostate cancer. Previous right nephrectomy. History of confusion. Plan: Plan dated 09/29/2022. I did spend a fair amount of time with the family, talking about various options. They made it very clear right from the beginning, that the patient would not want to be resuscitated, and apparently had verbalized in the past melissa t he would not want to be on life support. In addition, when he came into the hospital initially on the , with chest pain, and was seen by cardiology, but apparently refused a cardiac catheterization as he did not want any additional treatment of cardiac disease. The family decided that they would want the patient to be extubated, and made comfortable. The nurse, Nate was in the room, and will accomplish that. I did mention to the family that we would do nothing to hasten the patient's . I also mentioned that sometimes when we do this, the patient survives. All questions were answered. The patient's family seemed very comfortable in their decision. Time with Patient: Greater than 30
[2022-09-29 14:29] VITALS: PULSE 60; RESP 16
--- NOTE | 2022-09-29 15:45 | P.PN ---
Subjective Progress Note Date: 09/29/22 Principal diagnosis: Cardiopulmonary arrest with ROSC Intubation and mechanical ventilation Unstable angina; patient has been refusing cardiac workup 77-year-old gentleman with past medical history of CAD, CABG, cardiac stents, pacemaker for second-degree heart block, paroxysmal atrial fibrillation anticoagulated on Xarelto ,presented to the ER with complaints of chest pain, nausea 1 day, had been taken nitroglycerin daily for a few days-vague hist orian. Denies emesis, some exertional shortness of breath, denies diaphoresis. Denies lightheadedness dizziness or focal deficits. Patient normally wears 3 L nasal cannula O2 at home currently requiring 4 L nasal cannula maintaining O2 sats in the high 90s. EKG reporting atrial paced, right bundle branch block, left anterior fascicular block, troponin 0.035, 0.034, 0.030. Cervical spine x-ray reporting hypertrophic bridging osteophyte formation, mild C4-5 retrolisthesis, no fractures, subluxation of C4-5 is new compared to prior computed tomography scan some ligamentous instability. Chest x-ray reporting chronic right middle lobe infiltrate and atelectasis not significantly different from prior exam, no CHF seen. Hemoglobin 9.7, platelets 148. ProBNP 2810. BUN 36/creatinine 2.02 on admission currently he 29/1.69. Sodium 137, potassium 5.1. Afebrile, normal WBC. 09/28/2022 Patient is seen and evaluated in ICU; multiple family members present in the ro om Patient sustained cardiopulmonary arrest and CODE BLUE was called; patient was intubated with ROSC; transferred to ICU Had detailed discussion with patient's son initially on phone and then with ltiple family members at bedside; family has decided to go with comfort care measures; patient has been extubated Seems comfortable Objective - Vital Signs Vital signs: Vital Signs Temp 97.6 F 09/29/22 08:00 Pulse 96 09/29/22 08:00 Resp 18 09/29/22 08:00 BP 169/72 09/29/22 08:00 Pulse Ox 93 L 09/29/22 08:00 FiO2 100 09/29/22 09:45 Intake & Output 09/28/22 09/29/22 09/29/22 18:59 06:59 18:59 Output Total 400 Balance -400 Output: Urine 400 Other: Voiding Method Urinal Urinal Diaper # Voids 3 2 # Bowel Movements 1 - Exam GENERAL: Sitting up in bed, alert and oriented 3, no acute distress HEENT: Pupils are round and equally reacting to light. EOMI. No scleral icterus. No conjunctival pallor. Normocephalic, atraumatic. Neck:supple, no JVD CARDIOVASCULAR: S1 and S2 present regular, No murmurs, rubs, or gallops. PULMONARY: Unlabored, equal air entry, scattered rhonchi. ABDOMEN: Soft, nontender, nondistended, normoactive bowel sounds. No palpable organomegaly. EXTREMITIES: Mild lower extremity edema, bilateral lower tender calves - tendons/Ligaments of surrounding knees, positive DP pulses. NEUROLOGICAL: Cranial nerves II through XII grossly intact, no focal deficits. SKIN: No rashes, warm and dry. - Labs CBC & Chem 7: 09/29/22 10:44 09/29/22 10:44 Labs: Abnormal Lab Results - Last 24 Hours (Table) 09/28/22 09/28/22 09/28/22 Range/Units 11:56 17:04 20:01 Sodium 136 L (137-145) mmol/L Potassium 5.8 H (3.5-5.1) mmol/L BUN 39 H (9-20) mg/dL Creatinine 1.81 H (0.66-1.25) mg/dL Glucose 133 H (74-99) mg/dL POC Glucose (mg/dL) 175 H 160 H (70-110) mg/dL 09/29/22 09/29/22 09/29/22 Range/Units 05:32 06:22 09:27 Sodium 135 L (137-145) mmol/L Potassium 5.4 H (3.5-5.1) mmol/L BUN 40 H (9-20) mg/dL Creatinine 1.56 H (0.66-1.25) mg/dL Glucose 128 H (74-99) mg/dL POC Glucose (mg/dL) 138 H 191 H (70-110) mg/dL 09/29/22 Range/Units 10:07 Sodium (137-145) mmol/L Potassium (3.5-5.1) mmol/L BUN (9-20) mg/dL Creatinine (0.66-1.25) mg/dL Glucose (74-99) mg/dL POC Glucose (mg/dL) 245 H (70-110) mg/dL Assessment and Plan Assessment: Cardiopulmonary arrest; patient is status post cardiopulmonary resuscitation and return of spontaneous circulation; initially intubated and mechanically ventilated; once family arrived in the hospital they opted for comfort measures only; patient is extubated and made comfortable -Chest pain accompanied by nausea, initial troponin mildly elevated. -Acute on chronic hypoxic respiratory failure, normally wears 3 L nasal cannula O2 at home, suspect related to mucous plugging, doubtful pneumonia, pro- calcitonin ordered. -COPD -Acute bilateral lower extremity calves, tendons and ligaments of knees, ruling out DVTs, possible tendon,ligament strain. -Acute diarrhea, in a patient recently on antibiotics, negative for C. difficile colitis. -Acute renal failure, improving -Chronic kidney disease, stage III -Congestive heart failure chronic systolic dysfunction with acute exacerbation , EF 45-50% May 2022 -Hypertension -Coronary artery disease with CABG -History of permanent pacemaker implantation, secondary to syncope with second- degree AV block -Hyperlipidemia -Diabetes mellitus type 2 -History of UTI with ESBL E. coli -Benign prostatic hypertrophy -Former nicotine dependence -Subluxation at C4-5 appears new with some ligamentous instability, follow-up with orthopedic spine outpatient. Plan: Continue on current medication regime ,monitoring and symptomatic treatment. Labs pending.Close monitoring of renal function with repeat labs ordered for a.m. Bilateral lower extremity Dopplers to rule out DVTs. Aggressive pulmonary toileting with scheduled nebulized bronchodilators, Mucinex. Empiric antibiotics of ceftriaxone and Zithromax initiated, pro- calcitonin ordered. Patient advised to do foot pumps, PT/OT consulted.
--- NOTE | 2022-09-29 20:17 | P.GSCN ---
History of Present Illness Consult date: 09/29/22 Reason for Consult: Urinary retention Requesting physician: Dominique Uribe History of present illness: The patient is a 77 yo male with a history of prostate cancer in the remote past, treated with radiation therapy. He required management for urinary clot retention during a hospitalization in May 2022. He is now admitted with chest pain and dyspnea on exertion. He was found overnight to be in urinary retenti on. Attempts to place a Suero catheter by the nursing staff were unsuccessful. Per the nurse I spoke with, resistance was met several centimeters proximal to the urethral meatus. This is consistent with a urethral stricture, and I suggested she attempt to place a 12-T[place]is[place] Suero catheter. She was able to successfully place this. However, the catheter quit draining subsequently and bladder scan showed the bladder to be distended. He has since coded and was then transferred to the ICU. Following a lengthy discussion with Dr. Aguillon, the family chose to proceed with comfort care. At that time, the catheter was noted to be patent and draining bloody urine. Review of Systems - Cardiovascular Reports chest pain, Reports dyspnea on exertion - Genitourinary Reports hematuria Past Medical History Past Medical History: Coronary Artery Disease (CAD), Cancer, COPD, Diabetes Mellitus, Hyperlipidemia, Hypertension, Myocardial Infarction (ND), Prostate Disorder Additional Past Medical History / Comment(s): prostate cancer with radiation > 20 years ago, nstemi, wears a brief incont urine/stool Last Myocardial Infarction Date:: 2017 History of Any Multi-Drug Resistant Organisms: ESBL, MRSA Year Discovered:: Pt states he is unsure MDRO Source:: Unknown Past Surgical History: Coronary Bypass/CABG Additional Past Surgical History / Comment(s): 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,prostate bx, triple bypass 2017, bronchoscopy Past Anesthesia/Blood Transfusion Reactions: No Reported Reaction Type of Cardiac Device: Permanent Pacemaker Device Placement Date:: 12/08/20 Past Psychological History: No Psychological Hx Reported Additional Psychological History / Comment(s): Pt states he lives at home with son. Smoking Status: Former smoker Past Alcohol Use History: None Reported Additional Past Alcohol Use History / Comment(s): Pt started smoking as a teen and was a 3 ppd smoker but quit in 1990. Pt states he used to drink alcohol "years ago" Past Drug Use History: None Reported Additional Drug Use History / Comment(s): Used to use alcohol regularely. States he goes to AA meetings. - Past Family History Father Family Medical History: Diabetes Mellitus Additional Family Medical History / Comment(s): Pt states mother had diabetes Mother Family Medical History: Coronary Artery Disease (CAD), Diabetes Mellitus Additional Family Medical History / Comment(s): CABG Medications and Allergies Home Medications Medication Instructions Recorded Confirmed Type Atorvastatin [Lipitor] 20 mg PO DAILY 01/07/19 09/24/22 History Finasteride [Proscar] 5 mg PO DAILY 01/07/19 09/24/22 History Sertraline HCl [Zoloft] 50 mg PO DAILY 02/05/19 09/24/22 History Tamsulosin [Flomax] 0.4 mg PO HS 07/06/19 09/24/22 History Ferrous Sulfate [Feosol] 325 mg PO DAILY 07/27/20 09/24/22 History Gabapentin [Neurontin] 100 mg PO BID 12/06/20 09/24/22 History Nitroglycerin Sl Tabs [Nitrostat] 0.4 mg SL Q5M PRN 02/19/21 09/24/22 History Ascorbic Acid [Vitamin C] 500 mg PO DAILY 09/14/21 09/24/22 History Cholecalciferol (Vitamin D3) 125 mcg PO DAILY 09/14/21 09/24/22 History [Vitamin D3 (125 MCG = 5,000 IU)] Insulin Glargine,Hum.rec.anlog 30 unit SQ HS 09/14/21 09/24/22 History [Lantus Solostar Pen] Albuterol Inhaler [Ventolin Hfa 2 puff INHALATION RT-Q6H PRN 04/29/22 09/24/22 History Inhaler] Rivaroxaban [Xarelto] 20 mg PO DAILY 04/29/22 09/24/22 History Calcium Carbonate [Tums] 1,000 mg PO QID PRN tab 05/10/22 09/24/22 Rx Ipratropium-Albuterol Nebulize 3 ml INHALATION RT-QID PRN 07/14/22 09/24/22 History [Duoneb 0.5 mg-3 mg/3 ml Soln] Metoprolol Tartrate [Lopressor] 12.5 mg PO BID 07/14/22 09/24/22 History Acetaminophen Tab [Tylenol] 650 mg PO Q6H PRN 08/17/22 09/24/22 History Furosemide [Lasix] 40 mg PO DAILY #30 tablet 08/19/22 09/24/22 Rx Losartan [Cozaar] 25 mg PO DAILY 09/24/22 09/24/22 History Clopidogrel [Plavix] 75 mg PO DAILY #30 tab 09/26/22 Rx Omeprazole [PriLOSEC] 20 mg PO AC-BRKFST #30 cap 09/26/22 Rx Allergies Allergy/AdvReac Type Severity Reaction Status Date / Time No Known Allergies Allergy Verified 09/24/22 09:09 Surgical - Exam Vital Signs Temp Pulse Resp BP Pulse Ox 97.6 F 60 16 110/73 98 09/24/22 05:12 09/24/22 05:12 09/24/22 05:12 09/24/22 05:12 09/24/22 05:12 Results - Labs 09/29/22 10:44 09/29/22 10:44 Abnormal Lab Results - Last 24 Hours (Table) 09/28/22 09/28/22 09/28/22 Range/Units 11:56 17:04 20:01 Sodium 136 L (137-145) mmol/L Potassium 5.8 H (3.5-5.1) mmol/L BUN 39 H (9-20) mg/dL Creatinine 1.81 H (0.66-1.25) mg/dL Glucose 133 H (74-99) mg/dL POC Glucose (mg/dL) 175 H 160 H (70-110) mg/dL 09/29/22 09/29/22 09/29/22 Range/Units 05:32 06:22 09:27 Sodium 135 L (137-145) mmol/L Potassium 5.4 H (3.5-5.1) mmol/L BUN 40 H (9-20) mg/dL Creatinine 1.56 H (0.66-1.25) mg/dL Glucose 128 H (74-99) mg/dL POC Glucose (mg/dL) 138 H 191 H (70-110) mg/dL 09/29/22 Range/Units 10:07 Sodium (137-145) mmol/L Potassium (3.5-5.1) mmol/L BUN (9-20) mg/dL Creatinine (0.66-1.25) mg/dL Glucose (74-99) mg/dL POC Glucose (mg/dL) 245 H (70-110) mg/dL Diabetes panel 09/28/22 09/29/22 Range/Units 11:56 05:32 Sodium 136 L 135 L (137-145) mmol/L Potassium 5.8 H 5.4 H (3.5-5.1) mmol/L Chloride 99 99 (98-107) mmol/L Carbon Dioxide 30 27 (22-30) mmol/L BUN 39 H 40 H (9-20) mg/dL Creatinine 1.81 H 1.56 H (0.66-1.25) mg/dL Glucose 133 H 128 H (74-99) mg/dL Calcium 8.5 8.6 (8.4-10.2) mg/dL Calcium panel 09/28/22 09/29/22 Range/Units 11:56 05:32 Calcium 8.5 8.6 (8.4-10.2) mg/dL Pituitary panel 09/28/22 09/29/22 Range/Units 11:56 05:32 Sodium 136 L 135 L (137-145) mmol/L Potassium 5.8 H 5.4 H (3.5-5.1) mmol/L Chloride 99 99 (98-107) mmol/L Carbon Dioxide 30 27 (22-30) mmol/L BUN 39 H 40 H (9-20) mg/dL Creatinine 1.81 H 1.56 H (0.66-1.25) mg/dL Glucose 133 H 128 H (74-99) mg/dL Calcium 8.5 8.6 (8.4-10.2) mg/dL Adrenal panel 09/28/22 09/29/22 Range/Units 11:56 05:32 Sodium 136 L 135 L (137-145) mmol/L Potassium 5.8 H 5.4 H (3.5-5.1) mmol/L Chloride 99 99 (98-107) mmol/L Carbon Dioxide 30 27 (22-30) mmol/L BUN 39 H 40 H (9-20) mg/dL Creatinine 1.81 H 1.56 H (0.66-1.25) mg/dL Glucose 133 H 128 H (74-99) mg/dL Calcium 8.5 8.6 (8.4-10.2) mg/dL Assessment and Plan (1) Malignant neoplasm of prostate Status: Acute Code(s): C61 - MALIGNANT NEOPLASM OF PROSTATE SNOMED Code(s): 994060665 (2) Retention of urine, unspecified Status: Acute Code(s): R33.9 - RETENTION OF URINE, UNSPECIFIED SNOMED Code(s): 109888476 (3) Gross hematuria Status: Acute Code(s): R31.0 - GROSS HEMATURIA SNOMED Code(s): 449789440 Plan: The Suero catheter will remain in place. The nursing staff has been asked to contact me for any catheter-related issues. Time with Patient: Less than 30
[2022-09-29] MEDS ORDERED: CHLORHEXIDINE GLUCONATE 15 ML CUP MUCOUS MEM SCH (21:00)
[2022-09-30 08:55] LABS: Glucose,Whole Blood 139 mg/dL (70-110)
--- NOTE | 2022-10-02 13:43 | CDI ---
Documentation Clarification Form Date: 10/02/2022 01:40:10 PM From: Martha Wellington RN, CCDS Email: [email or web address] Admit Date: 09/24/2022 08:09:00 AM Patient Name: Cristo Perez Visit Number: [id number] Discharge Date: 09/29/2022 04:11:00 PM ATTENTION: The Clinical Documentation Specialists (CDI) and [facility] Coding Staff appreciate your assistance in clarifying documentation. Please respond to the clarification below the line at the bottom and electronically sign. The CDI & [facility] Coding staff will review the response and follow-up if needed. Please note: Queries are made part of the Legal Health Record. If you have any questions, please contact the author of this message via ITS. Dr. Nhan Adam Non-ST segment elevation myocardial infarction is documented in the 09/29 Physical Therapy Teacher's note, patient went into cardiopulmonary arrest with ROSC initially but eventually . Additional clarification is requested. History/Risk Factors: CHF, CAD, Myocardial infarction 2018, CABG, cardiac stents, pacemaker for second-degree heart block, paroxysmal atrial fibrillation, anticoagulated on Xarelto, presented to the ER with complaints of chest pain. States that the nitroglycerin has relieved the chest pain each time at home. Clinical Indicators: chest pain, SOB, nausea 09/24 Troponin: 0.035, 0.034, 0.030 09/24 EKG Results: atrial paced, right bundle branch block, left fascicular block, left ventricular hypertrophy, ST-T change, possible anterior myocardial infarction 09/25 Echo: EF 50%. Inferior septal hypokinesis. 09/27 IM: "Chest pain accompanied by nausea; initial troponin mildly elevated." 09/29 Pulmonary: "It appears that he was admitted with a diagnosis of non-ST segment elevation myocardial infarction with some congestive heart failure." Treatment: IV Heparin titrated, IV Lasix 40mg x1 on 09/28. Plavix 75mg daily, ASA 81mg daily, Lopressor 12.5mg BID, Xarelto 20mg daily 09/25 Cardiology Consult: "concerning for unstable angina. Possible heart cath or stress test." (patient refused). Please clarify if you agree with the diagnosis of NSTEMI: [ X] Yes [ ] No [ ] Unable to determine [ ] Other Condition, please specify MTDD
== END 2022-09-29 16:11 | disposition expired | DRG 302 ==
LOC: EC 05:03 → OBSVTOIN 08:09 → 3SCARD 08:09 → 2SICU 09-29 09:33
PROVIDERS: ADMIT Family Medicine; ATTEND Family Medicine
PROC: 5A1935Z Respiratory Ventilation, Less than 24 Consecutive Hours (ICD-10-PCS; principal; 2022-09-29)
PROC: 0BH17EZ Insertion of Endotracheal Airway into Trachea, Via Natural or Artificial Opening (ICD-10-PCS; 2022-09-29)
PROC: 5A12012 Performance of Cardiac Output, Single, Manual (ICD-10-PCS; 2022-09-29)
DX: I25.110 Atherosclerotic heart disease of native coronary artery with unstable angina pectoris (principal); J96.21 Acute and chronic respiratory failure with hypoxia; I45.2 Bifascicular block; I13.0 Hypertensive heart and chronic kidney disease with heart failure and stage 1 through stage 4 chronic kidney disease, or unspecified chronic kidney disease; I16.1 Hypertensive emergency; I50.42 Chronic combined systolic (congestive) and diastolic (congestive) heart failure; T17.890A Other foreign object in other parts of respiratory tract causing asphyxiation, initial encounter; J98.11 Atelectasis; N17.9 Acute kidney failure, unspecified; I46.2 Cardiac arrest due to underlying cardiac condition; Z51.5 Encounter for palliative care; I25.2 Old myocardial infarction; E78.5 Hyperlipidemia, unspecified; E11.22 Type 2 diabetes mellitus with diabetic chronic kidney disease; E86.0 Dehydration; I48.0 Paroxysmal atrial fibrillation; J44.9 Chronic obstructive pulmonary disease, unspecified; M25.78 Osteophyte, vertebrae; M43.12 Spondylolisthesis, cervical region; R79.89 Other specified abnormal findings of blood chemistry; N18.30 Chronic kidney disease, stage 3 unspecified; N35.919 Unspecified urethral stricture, male, unspecified site; N40.1 Benign prostatic hyperplasia with lower urinary tract symptoms; R31.0 Gross hematuria; R33.8 Other retention of urine; R19.7 Diarrhea, unspecified; Z79.01 Long term (current) use of anticoagulants; Z79.02 Long term (current) use of antithrombotics/antiplatelets; Z79.82 Long term (current) use of aspirin; Z79.899 Other long term (current) drug therapy; Z87.440 Personal history of urinary (tract) infections; Z85.46 Personal history of malignant neoplasm of prostate; Z87.891 Personal history of nicotine dependence; Z90.5 Acquired absence of kidney; Z83.3 Family history of diabetes mellitus; Z92.3 Personal history of irradiation; Z95.1 Presence of aortocoronary bypass graft; Z95.5 Presence of coronary angioplasty implant and graft; Z95.810 Presence of automatic (implantable) cardiac defibrillator; Z86.14 Personal history of Methicillin resistant Staphylococcus aureus infection
CPT/HCPCS: 36415; 36600; 71045; 71046; 72040; 80048; 80053; 80061; 82805; 83605; 83735; 83880; 84145; 84484; 85025; 85610; 85730; 87070; 87205; 87324; 87502; 87635; 93005; 93308; 93970; 94002; 94640; 99285